=== PATIENT | female | born 1940 | race Caucasian/White ===

== ENCOUNTER 2016-09-16 10:35 | Inpatient (IN) | payer MEDICARE, OTHER ==
--- NOTE | 2016-09-16 11:26 | ED ---
General Adult HPI - General Chief complaint: Recheck/Abnormal Lab/Rx Stated complaint: Congestive Heart Failure Time Seen by Provider: 09/16/16 10:40 Source: EMS Mode of arrival: EMS Limitations: no limitations - History of Present Illness Initial comments: 26 years old female was a transfer from [facility], on Sunday ER doc transfer her with the diagnosis of CHF and acute exacerbation of COPD, pulmonary hypertension and a left lung nodule. She had extensive workup done numb and changing based on the workup to give her some diuretics she voided quite a bit now she feels fine. In my ER now she denies any shortness of breath no chest pain no pleuritic chest pain no fever no chills no sinus symptoms of TIA or CVA - Related Data Allergies Allergy/AdvReac Type Severity Reaction Status Date / Time codeine AdvReac Itching Verified 09/16/16 11:08 Review of Systems ROS Statement: Those systems with pertinent positive or pertinent negative responses have been documented in the HPI. ROS Other: All systems not noted in ROS Statement are negative. Past Medical History Past Medical History: Heart Failure, COPD History of Any Multi-Drug Resistant Organisms: None Reported Past Surgical History: Appendectomy, Cholecystectomy, Heart Catheterization With Stent, Hysterectomy Past Psychological History: No Psychological Hx Reported Smoking Status: Former smoker Past Alcohol Use History: None Reported Past Drug Use History: None Reported General Exam - General Exam Comments Initial Comments: General: The patient is awake and alert, in no distress, and does not appear acutely ill. GCS is 15 Skin: Skin is warm and dry and no rashes or lesions are noted. Eye: Pupils are equal, round and reactive to light, extra-ocular movements are intact; there is normal conjunctiva bilaterally. Ears, nose, mouth and throat: There are moist mucous membranes and no oral lesions. Neck: The neck is supple, there is no tenderness or JVD. Cardiovascular: There is a regular rate and rhythm. No murmur, rub or gallop is appreciated. Respiratory: To auscultation bilateral, noticed some crackles at the bases, it' s typical COPD Gastrointestinal: Soft, non-distended, non-tender abdomen without masses or organomegaly noted. There is no rebound or guarding present. Bowel sounds are unremarkable. Back: There is no tenderness to palpation in the midline. There is no obvious deformity. Musculoskeletal: Normal ROM, no tenderness, There is no pedal edema. There is no calf tenderness or swelling. No cords were appreciated. Neurological: CN II-XII intact, Cranial nerves III through XII are intact. There are no obvious motor or sensory deficits. Coordination appears grossly intact. Speech is normal. Psychiatric: Cooperative, appropriate mood & affect, normal judgment. Limitations: no limitations Course Vital Signs 09/16/16 10:35 Temperature 99.1 F Pulse Rate 63 Respiratory 20 Rate Blood Pressure 168/88 O2 Sat by Pulse 96 Oximetry Laboratory labs drawn in the ER to [facility], UA showed some hematuria TSH was 6.0 BNP was 1542 troponin is negative his CBC was negative compressive metabolic panel was negative as well INR is 1.61 EKG showed some ischemic changes noticed from work will be done patient admitted under Dr. Herbert Siegel and cardiology be consulted along with Dr. Mahajan that he probably shortness Disposition Clinical Impression: Congestive heart failure, Acute exacerbation of COPD with asthma, Pulmonary hypertension, Nodule of left lung Disposition: ADMITTED IP TO THIS HOSP Condition: Good Referrals: Bethel Longoria NPC [Primary Care Provider] - 1-2 days
[2016-09-16] MEDS ORDERED: OXcarbazepine 150 MG TAB PO PRN (11:38)
[2016-09-16] MEDS ORDERED: guaiFENesin SYRUP 100MG/5ML 200 MG/10 ML CUP PO PRN (11:38)
[2016-09-16] MEDS ORDERED: LEVOFLOXACIN 500MG-D5W PMX 500 MG in DEXTROSE/WATER 1 100ML.BAG IVPB STA (11:49)
[2016-09-16] MEDS: FUROSEMIDE 10 MG/ML 4 ML VIAL IV SCH ×2 (12:51→20:18)
[2016-09-16 13:08] LABS: INR 1.7 (<1.1); Prothrombin Time 16.1 sec (9.0-12.0)
[2016-09-16 15:24] VITALS: BMI 27.5
[2016-09-16] MEDS: IPRATROPIUM-ALBUTEROL 3 ML NEB INHALATION SCH ×4 (16:28→20:12)
[2016-09-16] MEDS: metFORMIN 500 MG TAB PO SCH (17:44)
[2016-09-16] MEDS: METOPROLOL TARTRATE 50 MG TAB PO SCH (20:18)
[2016-09-16] MEDS: OXcarbazepine 300 MG TAB PO SCH (20:18)
[2016-09-16] MEDS: DOCUSATE 100 MG CAP PO PRN (20:18)
[2016-09-16 20:42] LABS: ALT 36 U/L (9-52); AST 22 U/L (14-36); Alkaline Phosphatase 119 U/L (38-126); Anion Gap 12 mmol/L; Blood Urea Nitrogen 19 mg/dL (7-17); Calcium 9.1 mg/dL (8.4-10.2); Carbon Dioxide 30 mmol/L (22-30); Chloride 100 mmol/L (98-107); Glucose 189 mg/dL (74-99); Non-African American GFR(MDRD) >60 (>60 ml/min/1.73 sqM); Potassium 3.6 mmol/L (3.5-5.1); Sodium 142 mmol/L (137-145); Total Bilirubin 1.9 mg/dL (0.2-1.3); Total Protein 6.7 g/dL (6.3-8.2)
[2016-09-16 20:47] LABS: Basophils # (A) 0.1 k/uL (0-0.2); Basophils % (A) 1 %; CH 31.7; CHCM 32.4; Eosinophils # (A) 0.3 k/uL (0-0.7); Eosinophils % (A) 3 %; HCT 38.9 % (34.0-46.0); HDW 2.32; HGB 12.4 gm/dL (11.4-16.0); Luc % (Auto) 2; Lymphocytes # (A) 2.3 k/uL (1.0-4.8); Lymphocytes % (A) 27 %; MCH 31.4 pg (25.0-35.0); MCHC 31.9 g/dL (31.0-37.0); MCV 98.5 fL (80.0-100.0); Macrocytosis Slight; Mean Platelet Volume 7.9; Monocytes # (A) 0.6 k/uL (0-1.0); Monocytes % (A) 7 %; Neutrophils # (A) 5.2 k/uL (1.3-7.7); Neutrophils % (A) 60 %; RBC 3.95 m/uL (3.80-5.40); RDW 15.3 % (11.5-15.5); WBC 8.6 k/uL (3.8-10.6); WBC (Perox) 9.49
[2016-09-16] MEDS ORDERED: WARFARIN 2 MG TAB PO SCH (21:00)
[2016-09-16 21:36] LABS: Hemoglobin A1C 8.5 % (4.2-6.1)
[2016-09-16] MEDS: ALPRAZolam 0.25 MG TAB PO SCH (23:29)
[2016-09-17] MEDS: IPRATROPIUM-ALBUTEROL 3 ML NEB INHALATION SCH ×4 (08:25→20:10)
[2016-09-17] MEDS: metFORMIN 500 MG TAB PO SCH ×2 (08:42→17:21)
[2016-09-17] MEDS: FUROSEMIDE 10 MG/ML 4 ML VIAL IV SCH ×2 (08:48→22:11)
[2016-09-17] MEDS: CHOLECALCIFEROL 1,000 UNIT TAB PO SCH (08:50)
[2016-09-17] MEDS: OXcarbazepine 300 MG TAB PO SCH ×2 (08:51→22:12)
[2016-09-17] MEDS: LINAGLIPTIN 5 MG TABLET PO SCH (08:51)
[2016-09-17] MEDS: LISINOPRIL 10 MG TAB PO SCH (08:51)
[2016-09-17] MEDS: METOPROLOL TARTRATE 50 MG TAB PO SCH ×2 (08:51→22:12)
[2016-09-17] MEDS ORDERED: SPIRONOLACTONE 25 MG TAB PO SCH (09:00)
[2016-09-17] MEDS ORDERED: HYDROCHLOROTHIAZIDE 25 MG TAB PO SCH (09:00)
--- NOTE | 2016-09-17 10:36 | HP ---
DATE OF ADMISSION: 09/16/2016 CHIEF COMPLAINT: A 76-year-old white female with acute congestive heart failure. HISTORY OF PRESENT ILLNESS: This is an elderly 76-year-old white female transferred from [facility] after two admissions to the hospital one over 5 to 6 days in [facility] in [place]. She has been also in [place] for the last two to three days with severe amounts of diuresis with IV Lasix for congestive heart failure and COPD, pulmonary hypertension left lung nodule. She had extensive work-up done which showed ejection fraction around 55%, right-sided pulmonary hypertension. She was also found to have possibly hypothyroidism, which no treatment was given. Because she was sent home on Hydrodiuril instead of IV Lasix, she became extremely short of breath at which time she was sent back to the hospital. She is here for second opinion and to improve her breathing. ALLERGIES: CODEINE. Fourteen-point review of system is negative except for 2 months ago she was breathing good. One month ago, the bottom dropped out and she became extremely short of breath. Otherwise fourteen-point review of systems negative. PAST MEDICAL HISTORY: Diastolic heart failure. Pulmonary hypertension, COPD, long-standing nicotine addiction for many years. SURGERY: Appendectomy, cholecystectomy, heart catheterization with stent, hysterectomy. SOCIAL HISTORY: Smoker. No alcohol. No drugs. PHYSICAL EXAM: Does not appear acutely ill. Ophthalmologic: Pupils equal, round and react to light and accommodation. NECK: Supple. No JVD. CARDIOVASCULAR: Regular rate and rhythm. No murmurs, rubs, gallops, respiratory some crackles at the base, scattered wheeze. GI: Soft. No mass or organomegaly. No rebound. Back is nontender. No obvious deformity. MUSCULOSKELETAL: Normal range of motion. No calf tenderness. NEUROLOGIC: Cranial nerves are intact. PSYCH: Cooperative. Fair mood and affect. Temperature 99.1, pulse 63, respirations 20, O2 sat 96% on room air. ASSESSMENT: 1. Acute congestive heart failure diastolic in nature. 2. Acute pulmonary hypertension. 3. Chronic obstructive pulmonary disease exacerbation. 4. Allergic rhinitis and asthma. 5. Possible nodule in the left lung. We will admit the patient and give her IV Lasix. Possibly thyroid medicine. We will await further work-up by pulmonary and cardiology.
--- NOTE | 2016-09-17 11:53 | XR ---
EXAMINATION TYPE: XR chest 1V portable DATE OF EXAM: 09/17/2016 HISTORY: HF. REFERENCE: Previous study dated 09/17/2012. FINDINGS: There is a unipolar pacemaker place on the left. The lungs are overinflated. Heart size upper limits of normal. The lungs are clear. There is blunting of both CP angles. I could not exclude small effusions. IMPRESSION: 1. COPD. 2. BORDERLINE CARDIOMEGALY. 3. SMALL, BILATERAL EFFUSIONS.
[2016-09-17] MEDS ORDERED: SPIRONOLACTONE 25 MG TAB PO ONE (12:00)
[2016-09-17] MEDS: LEVOFLOXACIN 500MG-D5W PMX 500 MG in DEXTROSE/WATER 1 100ML.BAG IVPB SCH (12:27)
--- NOTE | 2016-09-17 13:45 | CONS ---
DATE OF CONSULTATION: Mrs. Ortiz is a 76-year-old female who is seen for cardiac evaluation. This patient's emergency room records as well as records from [place] systems reviewed. This patient was transferred from [facility] because of the increasing shortness of breath and congestive cardiac failure. This patient has a history of atrial fibrillation. She had a permanent pacemaker implanted about 3.4 weeks ago at [facility]. Subsequently, patient was admitted in the hospital in [place] because of the predominantly right-sided failure. Patient was treated with IV diuretics and she lost significant amount of weight and she was discharged home. After discharge from the hospital, patient did not feel well on Sunday night, and Sunday she was having increasing shortness of breath and so the patient went to the ER and was transferred over here. Patient did have some work-up done in the past. We do not have all the details, but that she has been told that she has COPD, pulmonary hypertension and diastolic congestive cardiac failure. Patient has a prior history of coronary artery disease and had a stent done in 1994. She denies any anginal pain. She has a history of diabetes as well as hypertension. Past medical history includes a history of recent pacemaker, appendectomy, cholecystectomy, prior cardiac catheterization, COPD. SOCIAL HISTORY: Patient has been smoking for several years. Review of systems is otherwise unremarkable. Physical examination at present reveals a 76-year-old female who does not appear to be in any acute distress, oxygen saturation is 94%. Blood pressure is 132/68 mm of Hg. Head/ENT examination is negative. Neck is supple. Jugular venous pressure is elevated up to the angle of the jaw. Both the carotid pulses are felt. There is no bruit. Chest is symmetrical. HEART: The PMI is not felt. First and second heart sounds are normal. No significant murmurs are noted. Lungs revealed bilateral few basal rales. Abdomen soft. Liver and spleen are not enlarged. EXTREMITIES: There is 1+ pedal edema. Peripheral pulsations are not well felt. EKG shows underlying rhythm to be atrial fibrillation with a paced rhythm. Patient's proBNP level is 0. FINAL IMPRESSION: 1. This patient is admitted with shortness of breath and congestive heart failure. Patient predominantly has right-sided heart failure, which is probably secondary to cor pulmonale and diastolic dysfunction. The patient's BNP level is marginally elevated. 2. Atrial fibrillation with controlled rate and a pacemaker rhythm. RECOMMENDATIONS: We will continue patient on IV Lasix and increase the spironolactone to 25 mg daily. Echocardiogram will be repeated and I will switch the patient from Coumadin to the Eliquis 5 mg b.i.d. Further recommendations will be made depending upon the findings.
[2016-09-17] MEDS: methylPREDNISolone SOD SUCCI 125 MG/2 ML VIAL IV SCH ×2 (14:01→18:56)
[2016-09-17] MEDS: METROGEL 1% TOPICAL SCH (14:12)
--- NOTE | 2016-09-17 14:37 | CONS ---
DATE OF CONSULTATION: Ariadne Ortiz is a 76-year-old female who presented to the ED at [facility] when she was transferred from [facility]. She had been doing fairly well up until 3 weeks ago and she developed some shortness of breath. This has been associated with some wheezing and occasional cough. She was seen in [facility] in [facility] for at least 3 admissions and her last admission was about 5 to 6 days ago in [facility] in [place]. She was discharged went home, became more short of breath and came in to [facility] and was transferred to [facility]. About 3 weeks ago, she had a pacemaker placed. She had a previously extensive work-up done, which included evidence of a possible left lung nodule, history of congestive heart failure, COPD, pulmonary hypertension with ejection fraction around 55%. PAST MEDICAL HISTORY: Positive for congestive heart failure with pulmonary hypertension, history of COPD, no clear history of asthma per patient, history of appendectomy, cholecystectomy, pacemaker placement, cardiac catheterization. SOCIAL HISTORY: The patient smokes about a pack of cigarettes per day. She quit smoking about 4 weeks ago. FAMILY: Negative for COPD and asthma. Medications prior to admission were: 1. Xanax. 2. Flagyl. 3. Topical ointment. 4. Warfarin. 5. Cholecalciferol. 6. Sitagliptin with metformin. 7. Trileptal. 8. Lopressor. 9. Prinivil. 10. Albuterol with ipratropium. 11. Hydrochlorothiazide. 12. Guaifenesin. Review of systems is noncontributory other than for what is described in the history of present illness and past medical history. On physical examination, blood pressure is 132/68, respiratory rate 20, pulse 60, temperature 97.3 degrees Fahrenheit. O2 sat on 2 liters by nasal cannula is 94%. HEENT reveals pupils are equal. Jugular veins are mildly distended. Chest reveals decreased breath sounds, prolonged expiration, no clear wheeze. Cardiovascular system reveals an S1, S2. ABDOMEN: Soft. There is trace pedal. Labs reveal a white count 8.6, hemoglobin 12.4. PT, INR 1.7. Sodium 142, potassium 3.6, chloride 100, bicarbonate 30, BUN 19, creatinine of 0.88. TSH is elevated at 4.7, FT4 of 0.96. NT-proBNP 2040. Chest x-ray does not show any clear nodule but does show small bilateral effusions. IMPRESSION: 1. Congestive heart failure. 2. Asthma with chronic obstructive pulmonary disease with acute exacerbation. 3. Lung nodule. 4. Cardiac arrhythmia with recent pacemaker placement. 5. Pulmonary hypertension which may be due to left heart failure versus other etiology such as chronic obstructive pulmonary disease cannot rule out obstructive sleep apnea as well. At this point in time, from a pulmonary standpoint, would keep her on bronchodilators, add aerosolized steroids and Montelukast to her regimen. Check an allergy profile. Keep her in negative fluid balance. Will check a CT scan to further decide if she needs work-up for a lung nodule. Check an allergy profile. We will follow her closely during her hospital stay. Appreciate the opportunity to participate in her care. She and her son were counseled regarding her condition and this approach and they have a fair understanding of our recommendations.
--- NOTE | 2016-09-17 16:06 | CT ---
EXAMINATION TYPE: CT chest wo con DATE OF EXAM: 09/17/2016 COMPARISON: Prior CT chest 09/19/2012, CT chest from outside institution 09/16/2016 HISTORY: Pulmonary nodule CT DLP: 292.4 mGycm. Automated Exposure Control for Dose Reduction was Utilized. TECHNIQUE: CT scan of the thorax is performed without IV contrast. FINDINGS: LUNGS: The lungs are grossly clear, there is no concerning parenchymal mass or nodule identified. Em physematous changes are present. There is pleural calcification, calcification along the pericardium, the heart is enlarged, there are coronary artery calcifications. Small right pleural effusion and as sociated atelectatic changes versus right lower lobe pneumonia, there are air bronchograms present. T he tracheobronchial tree is patent. Questionable nodular density on axial image 32 is somewhat less c onspicuous and may just represent some focal pleural thickening. MEDIASTINUM: Lack of IV contrast is noted to limit evaluation for mediastinal and especially hilar ad enopathy. There are no definitive greater than 1 cm hilar or mediastinal lymph nodes. No pericardia l effusion is seen. OTHER: Pacemaker lead present in the right ventricle. Left atrial enlargement is present. Arthropathy noted within the shoulders. Low dense focus present within the spleen measures approximately 14 mm, possibly cyst or hemangioma. Patient is post cholecystectomy. Diverticular change noted in the colon. There is a small hiatal hernia present. IMPRESSION: Cardiomegaly, coronary artery disease. Correlate for right lower lobe pneumonia with para pneumonic effusion. Questionable nodular density seen on prior CT from outside institution appears so mewhat less conspicuous as described. Additional findings above, consider follow-up
[2016-09-17 17:13] LABS: Glucose,Whole Blood 235 mg/dL (75-99)
[2016-09-17] MEDS: INSULIN LISPRO (humaLOG) 300 UNIT/3 ML VIAL SQ SCH ×2 (17:21→22:11)
[2016-09-17] MEDS: BUDESONIDE 0.5 MG/2 ML NEBU INHALATION SCH (20:10)
[2016-09-17] MEDS ORDERED: ALPRAZolam 0.25 MG TAB PO PRN (21:08)
[2016-09-17 21:13] LABS: Glucose,Whole Blood 304 mg/dL (75-99)
[2016-09-17] MEDS: ALPRAZolam 0.25 MG TAB PO SCH (22:11)
[2016-09-17] MEDS: APIXABAN 5 MG TAB PO SCH (22:11)
[2016-09-17] MEDS: MONTELUKAST 10 MG TAB PO SCH (22:12)
[2016-09-17] MEDS: DOCUSATE 100 MG CAP PO PRN (22:13)
[2016-09-18] MEDS: methylPREDNISolone SOD SUCCI 125 MG/2 ML VIAL IV SCH ×3 (01:12→12:18)
[2016-09-18 05:59] LABS: Glucose,Whole Blood 302 mg/dL (75-99)
[2016-09-18] MEDS: INSULIN LISPRO (humaLOG) 300 UNIT/3 ML VIAL SQ SCH ×4 (06:54→21:35)
[2016-09-18] MEDS: metFORMIN 500 MG TAB PO SCH ×2 (06:54→17:31)
[2016-09-18] MEDS: LEVOTHYROXINE 50 MCG TAB PO SCH (06:54)
[2016-09-18] MEDS: FUROSEMIDE 10 MG/ML 4 ML VIAL IV SCH ×2 (07:50→21:35)
[2016-09-18] MEDS: LISINOPRIL 10 MG TAB PO SCH (07:50)
[2016-09-18] MEDS: METOPROLOL TARTRATE 50 MG TAB PO SCH ×2 (07:51→21:35)
[2016-09-18] MEDS: APIXABAN 5 MG TAB PO SCH ×2 (07:51→21:35)
[2016-09-18] MEDS: LINAGLIPTIN 5 MG TABLET PO SCH (07:51)
[2016-09-18] MEDS: OXcarbazepine 300 MG TAB PO SCH ×2 (07:52→21:35)
[2016-09-18] MEDS: SPIRONOLACTONE 25 MG TAB PO SCH (07:52)
[2016-09-18] MEDS: METROGEL 1% TOPICAL SCH (07:53)
--- NOTE | 2016-09-18 08:12 | PN ---
SUBJECTIVE: A 76-year-old white female with right-sided heart failure and pulmonary hypertension from probable sleep apnea, also hypothyroidism. Discussed with her starting her on a thyroid medicine and Lasix that was not given on her blood tests before. This nodular density on a prior CAT scan was improved. She has a parapneumonic effusion. Consultation with Dr. Chelsey Kuo at this point ( ) asthma, COPD, lung nodule, pacemaker, cardiac arrhythmia, pulmonary hypertension may be due to left heart failure versus COPD and obstructive sleep apnea. He recommends steroids, Singulair, allergy panel. Will start her on hypothyroid medication. Wean her off oxygen as tolerated. Will follow up in the next 24 to 48 hours. She will have a sleep apnea workup as an outpatient.
[2016-09-18] MEDS: BUDESONIDE 0.5 MG/2 ML NEBU INHALATION SCH ×2 (11:51→20:27)
[2016-09-18] MEDS: IPRATROPIUM-ALBUTEROL 3 ML NEB INHALATION SCH ×4 (11:51→20:27)
[2016-09-18 12:04] LABS: Glucose,Whole Blood 303 mg/dL (75-99)
[2016-09-18] MEDS: CHOLECALCIFEROL 1,000 UNIT TAB PO SCH (12:17)
[2016-09-18] MEDS: LEVOFLOXACIN 500MG-D5W PMX 500 MG in DEXTROSE/WATER 1 100ML.BAG IVPB SCH (12:18)
--- NOTE | 2016-09-18 13:51 | PN ---
DATE OF SERVICE: 09/18/2016 She has been hemodynamically stable. She is less short of breath. On physical examination, her blood pressure 134/68, respiratory rate of 18, pulse rate of 62, temperature 99.2, O2 sat on room air is 93%. HEENT is unremarkable. Chest reveals decreased breath sounds. No clear wheeze. Cardiovascular system reveals an S1 and S2. Abdomen is soft. There is trace to 1+ pedal edema. IgE level is 36.2 consistent with allergic asthma. Input and output is showing a -1390. IMPRESSION: 1. Congestive heart failure. 2. Asthma with acute exacerbation. 3. Chronic obstructive pulmonary disease. 4. History of lung nodule per the CAT scan report and my review, there does not seem to be a nodule and questionable density is less conspicuous. There does seem to a small right pleural effusion with some atelectatic changes which may be due to congestive heart failure. At this point in time, from a pulmonary standpoint, continue IV steroids, bronchodilators, aerosolized steroids. Increase her activity level. If she is otherwise stable. Consider discharge planning for tomorrow.
--- NOTE | 2016-09-18 15:17 | P.PN ---
Subjective 76-year-old seen and evaluated. Sitting up in bed. Feels less short of breath. Being followed by pulmonary and cardiology service. . Did note cardiology's recommendations. The recommending that the Lasix IV continue increase the Aldactone repeat echocardiogram and switched to Coumadin over to [facility] course 76-year-old female was transferred from [facility] after 2 admissions to the hospital over the last 5-6 days. Patient reportedly had been [facility] in [place]. Patient also had been in [place] for the last several days. Patient had been treated for a workup for heart failure with pulmonary hypertension. Patient was transferred here seeking a second opinion for treatment of the above-mentioned symptoms. Patients being followed by pulmonology treated for asthma with an acute exacerbation. IgE level elevated consistent with ALLERGIC asthma. CAT scan of the chest was reviewed by pulmonary. There did not appear to be a nodule. There was small right pleural effusion with atelectatic changes which may be related to the congestive heart failure per pulmonary's recommendations after reviewing the CAT scan of the chest also noted that the patient did have a permanent pacemaker put in about 3- 4 weeks ago at [facility]. Subsequently as mentioned the patient had been hospitalized in [place] because of predominantly right side heart failure. Patient reportedly was treated with IV diuretics reports that she did lose a significant amount of weight and was discharged home. Patient states that after she was discharged from the hospital she did not feel well over the weekend noted that she was experiencing shortness of breath and came into the emergency room was transferred here. Patient states that she's been told she has COPD. Patient had a stent placed in 1994 gives a history of coronary artery disease. EKG shows an underlying rhythm of atrial fibrillation with paced rhythm. Patients being followed by cardiology being treated for predominantly right side heart failure likely secondary to cor pulmonale and diastolic dysfunction. Objective - Vital Signs Vital signs: Vital Signs Temp 99.2 F 09/18/16 12:17 Pulse 86 09/18/16 12:04 Resp 18 09/18/16 12:00 BP 134/68 09/18/16 12:00 Pulse Ox 93 L 09/18/16 12:00 Intake & Output 09/17/16 09/18/16 09/18/16 18:59 06:59 18:59 Intake Total 350 360 Output Total 300 Balance 350 60 Weight 76.7 kg Intake: IV 30 Normal Saline 30 Intake, IV Titration 100 Amount Levofloxacin 500Mg-D5w 100 Pmx 500 mg In Dextrose/ Water 1 100ml.bag @ 100 mls/hr IVPB Q24H [facility] Rx#: [id number] Oral 220 360 Output: Urine 300 Other: # Voids 0 1 - Exam Physical exam 76-year-old female sitting up in bed does not appear in any acute distress states breathing feels slightly improved Lungs diminished at the bases otherwise adequate air movement Heart S1-S2 audible irregular monitor paced A. fib rate controlled abdomen obese soft nontender no frequent stooling Extremities trace pedal edema bilaterally - Labs CBC & Chem 7: 09/16/16 17:59 09/16/16 17:59 Labs: Abnormal Lab Results - Last 24 Hours (Table) 09/17/16 09/17/16 09/18/16 Range/Units 17:05 20:41 05:51 POC Glucose (mg/dL) 235 H 304 H 302 H (75-99) mg/dL 09/18/16 Range/Units 11:51 POC Glucose (mg/dL) 303 H (75-99) mg/dL Assessment and Plan Plan: Impression Shortness of breath suspect due to right-sided heart failure exacerbation secondary to cor pulmonale and diastolic dysfunction Shortness of breath due to an acute exacerbation of asthma Chronic atrial fibrillation rate controlled History of a recent 2-3 week ago implantation pacemaker IgE level elevated on admission consistent with ALLERGIC asthma History of a lung nodule per CAT scan report reviewed by pulmonary service indicates not able to see nodule question the density less conspicuous CAT scan of the chest small right pleural effusion may be due to heart failure diastolic dysfunction Type 2 diabetes insulin requiring uncontrolled hemoglobin A1c 8.5 Present on admission hypothyroid a low free T4 0.96 new diagnosis Plan Continue with recommendations by pulmonary service continue the aerosol bronchodilator and IV steroids Continue with the rectum and dictations by cardiology service Increase activity Resume home meds as appropriate Monitor intake and output and weight Continue Lasix 40 IV twice a day Monitor electrolytes closely keep in a therapeutic range IV Levaquin as ordered Start Synthroid 50 MCG's daily Monitor blood pressure and heart rate adjust as indicated The above impression and plan of care have been discussed and directed by signing physician. Stephanie Tai nurse practitioner acting as scribe for signing physician.
[2016-09-18 17:24] LABS: Glucose,Whole Blood 255 mg/dL (75-99)
[2016-09-18] MEDS: methylPREDNISolone SOD SUCCI 40 MG/ML 1 ML VIAL IV SCH (17:38)
[2016-09-18 20:36] LABS: Glucose,Whole Blood 392 mg/dL (75-99)
--- NOTE | 2016-09-18 20:41 | PN ---
This patient was admitted with respiratory distress. Congestive cardiac failure. She is feeling much better. Breathing is improved. Denies any orthopnea or PND. Her respirations are nonlabored. Heart rate is 68 per minute. Blood pressure is 170/84 mm Hg. First and second heart sounds are normal. Lungs are clinically clear to auscultation and percussion. Chest x-ray shows a small amount of pleural effusion. We will continue the IV Lasix for next 24 hours and put her on all her Lasix from tomorrow.
[2016-09-18] MEDS ORDERED: INSULIN LISPRO (humaLOG) 300 UNIT/3 ML VIAL SQ ONE (21:02)
[2016-09-18] MEDS: MONTELUKAST 10 MG TAB PO SCH (21:36)
[2016-09-18] MEDS: ALPRAZolam 0.25 MG TAB PO SCH (21:36)
[2016-09-18] MEDS: DOCUSATE 100 MG CAP PO PRN (21:46)
[2016-09-18] MEDS ORDERED: methylPREDNISolone SOD SUCCI 40 MG/ML 1 ML VIAL IV SCH (22:00)
[2016-09-19 06:16] LABS: Glucose,Whole Blood 216 mg/dL (75-99)
[2016-09-19 06:41] LABS: ALT 39 U/L (9-52); AST 13 U/L (14-36); Alkaline Phosphatase 113 U/L (38-126); Anion Gap 12 mmol/L; Blood Urea Nitrogen 40 mg/dL (7-17); Calcium 9.7 mg/dL (8.4-10.2); Carbon Dioxide 27 mmol/L (22-30); Chloride 99 mmol/L (98-107); Glucose 219 mg/dL (74-99); Non-African American GFR(MDRD) 54 (>60 ml/min/1.73 sqM); Sodium 138 mmol/L (137-145); Total Bilirubin 0.7 mg/dL (0.2-1.3); Total Protein 6.4 g/dL (6.3-8.2)
[2016-09-19] MEDS: INSULIN LISPRO (humaLOG) 300 UNIT/3 ML VIAL SQ SCH ×4 (06:41→22:49)
[2016-09-19] MEDS: LEVOTHYROXINE 50 MCG TAB PO SCH (06:41)
[2016-09-19] MEDS: methylPREDNISolone SOD SUCCI 40 MG/ML 1 ML VIAL IV SCH (06:41)
[2016-09-19] MEDS: APIXABAN 5 MG TAB PO SCH ×2 (08:17→22:48)
[2016-09-19] MEDS: FUROSEMIDE 10 MG/ML 4 ML VIAL IV SCH (08:17)
[2016-09-19] MEDS: LINAGLIPTIN 5 MG TABLET PO SCH (08:17)
[2016-09-19] MEDS: METOPROLOL TARTRATE 50 MG TAB PO SCH ×2 (08:17→22:48)
[2016-09-19] MEDS: metFORMIN 500 MG TAB PO SCH ×2 (08:17→16:38)
[2016-09-19] MEDS: LISINOPRIL 10 MG TAB PO SCH (08:18)
[2016-09-19] MEDS: SPIRONOLACTONE 25 MG TAB PO SCH (08:18)
[2016-09-19] MEDS: OXcarbazepine 300 MG TAB PO SCH ×2 (08:18→22:49)
[2016-09-19] MEDS: METROGEL 1% TOPICAL SCH (08:19)
[2016-09-19] MEDS: BUDESONIDE 0.5 MG/2 ML NEBU INHALATION SCH ×2 (08:48→19:52)
[2016-09-19] MEDS: IPRATROPIUM-ALBUTEROL 3 ML NEB INHALATION SCH ×4 (08:48→19:52)
--- NOTE | 2016-09-19 10:18 | ECHOF ---
Referral Reason:chf MEASUREMENTS -------- HEIGHT: 165.1 cm WEIGHT: 76.7 kg BP: 135/78 RVIDd: 2.9 cm (< 3.3) IVSd: 1.1 cm (0.6 - 1.1) LVIDd: 4.1 cm (3.9 - 5.3) LVPWd: 1.2 cm (0.6 - 1.1) IVSs: 2.0 cm LVIDs: 2.6 cm LVPWs: 2.0 cm LAESV Index (A-L): 61.48 ml/m Ao Diam: 2.8 cm (2.0 - 3.7) AV Cusp: 1.8 cm (1.5 - 2.6) LA Diam: 5.0 cm (2.7 - 3.8) MV EXCURSION: 16.312 mm (> 18.000) MV EF SLOPE: 97 mm/s (70 - 150) EPSS: 0.3 cm RAP: 5.00 mmHg RVSP: 10.90 mmHg FINDINGS -------- Sinus rhythm. This was a technically adequate study. There is borderline concentric left ventricular hypertrophy. Overall left ventricular systolic function is normal with, an EF between 60 - 65 %. The right ventricle is normal in size and function. LA is severely dilated >40 ml/m2 Electronic pacemaker lead seen in the right atrial cavity. RA appears enlarged. Aortic valve is trileaflet and is mildly thickened. There is no evidence of aortic regurgitation. There is no evidence of aortic stenosis. The mitral valve leaflets are mildly thickened. [id number] mitral regurgitation is present. Trace tricuspid regurgitation present. There is no evidence of pulmonary hypertension. The right ventricular systolic pressure, as measured by Doppler, is 10.90mmHg. Trace/mild (physiologic) pulmonic regurgitation. The aortic root size is normal. The inferior vena cava is mildly dilated. The pericardium is normal. There is no pericardial effusion. CONCLUSIONS -------- 1. Sinus rhythm. 2. [id number] mitral regurgitation is present. 3. Trace tricuspid regurgitation present. 4. There is no evidence of pulmonary hypertension. 5. The right ventricular systolic pressure, as measured by Doppler, is 10.90mmHg. 6. Trace/mild (physiologic) pulmonic regurgitation. 7. The aortic root size is normal. 8. The inferior vena cava is mildly dilated. 9. There is no pericardial effusion. 10. This was a technically adequate study. 11. There is borderline concentric left ventricular hypertrophy. 12. Overall left ventricular systolic function is normal with, an EF between 60 - 65 %. 13. LA is severely dilated >40 ml/m2 14. Electronic pacemaker lead seen in the right atrial cavity. 15. RA appears enlarged. 16. Aortic valve is trileaflet and is mildly thickened. 17. The mitral valve leaflets are mildly thickened. SULFONATOR OPERATOR: Geoff Sinha RDCS
--- NOTE | 2016-09-19 11:22 | P.PN ---
Subjective 76 -year-old female seen and examined. Patient reports breathing feels improved this morning. Patient states is able to lay flat with less shortness of breath. Patients being followed by cardiology service. Reviewed the recommendations by cardiology the plan is to change the IV Lasix to oral and monitor the response. Currently on 40 of Lasix IV twice a day. Labs reviewed additionally cardiology has started patient on elquist 5mg bid patient had been on Coumadin which has been stopped. Pulmonary participating in the plan of care as well. Patients being treated for an acute exacerbation of asthma with COPD disease. IV Solu-Medrol will be changed to prednisone Objective - Vital Signs Vital signs: Vital Signs Temp 99.4 F 09/19/16 08:00 Pulse 72 09/19/16 09:03 Resp 18 09/19/16 08:00 BP 139/75 09/19/16 08:00 Pulse Ox 93 L 09/19/16 08:00 Intake & Output 09/18/16 09/19/16 09/19/16 18:59 06:59 18:59 Intake Total 940 10 Output Total 1200 300 Balance -260 -290 Weight 76 kg Intake: IV 10 Normal Saline 10 Intake, IV Titration 100 Amount Levofloxacin 500Mg-D5w 100 Pmx 500 mg In Dextrose/ Water 1 100ml.bag @ 100 mls/hr IVPB Q24H [facility] Rx#: [id number] Oral 840 Output: Urine 1200 300 Other: # Voids 2 2 - Exam Physical exam 76-year-old female sitting up edge of bed acute distress states breathing feels slightly improved Lungs diminished at the bases otherwise adequate air movement Heart S1-S2 audible irregular monitor paced A. fib rate controlled abdomen obese soft nontender no frequent stooling Extremities trace pedal edema bilaterally - Labs CBC & Chem 7: 09/16/16 17:59 09/19/16 06:01 Labs: Abnormal Lab Results - Last 24 Hours (Table) 09/18/16 09/18/16 09/18/16 Range/Units 11:51 17:07 20:35 BUN (7-17) mg/dL Glucose (74-99) mg/dL POC Glucose (mg/dL) 303 H 255 H 392 H (75-99) mg/dL AST (14-36) U/L 09/19/16 09/19/16 Range/Units 05:47 06:01 BUN 40 H (7-17) mg/dL Glucose 219 H (74-99) mg/dL POC Glucose (mg/dL) 216 H (75-99) mg/dL AST 13 L (14-36) U/L Assessment and Plan Plan: Impression Shortness of breath suspect due to right-sided heart failure exacerbation secondary to cor pulmonale and diastolic dysfunction Shortness of breath due to an acute exacerbation of asthma Chronic atrial fibrillation rate controlled Coumadin stopped an eliquist added History of a recent 2-3 week ago implantation pacemaker IgE level elevated on admission consistent with ALLERGIC asthma History of a lung nodule per CAT scan report reviewed by pulmonary service indicates not able to see nodule question the density less conspicuous CAT scan of the chest small right pleural effusion may be due to heart failure diastolic dysfunction Type 2 diabetes insulin requiring uncontrolled hemoglobin A1c 8.5 Plan Continue with recommendations by pulmonary service continue the aerosol bronchodilator Stop IV Solu-Medrol taper to oral Continue with the rectum and dictations by cardiology service Increase activity Resume home meds as appropriate Monitor intake and output and weight Continue Lasix 40 IV twice a day tapered to oral per cardiology's recommendations Monitor electrolytes closely keep in a therapeutic range IV Levaquin as ordered Monitor blood pressure and heart rate adjust as indicated The above impression and plan of care have been discussed and directed by signing physician. Stephanie Tai nurse practitioner acting as scribe for signing physician.
[2016-09-19 12:00] LABS: Glucose,Whole Blood 287 mg/dL (75-99)
[2016-09-19] MEDS: predniSONE 20 MG TAB PO SCH (12:16)
[2016-09-19] MEDS: CHOLECALCIFEROL 1,000 UNIT TAB PO SCH (12:16)
[2016-09-19] MEDS: LEVOFLOXACIN 500 MG TAB PO SCH (12:16)
--- NOTE | 2016-09-19 15:06 | CDI ---
In responding to this query, please exercise your independent professional judgment. The [facility] Coding Staff and Clinical Documentation Specialists appreciate your assistance in clarifying documentation, maintaining compliance with coding guidelines, accurately documenting patients condition and capturing severity of illness. The fact that a question is asked does not imply that any particular answer is desired or expected. Communication forms are a method of clarifying documentation and are not made part of the Legal Health Record. Thank you in advance for your clarification. Last Revision, May 2015 Ishan Rodriguez [address] [facility] [place] [address] Documentation Clarification Form Date: 09/19/2016 2:48:00 PM From: Magdi Lewis, RN, BSN, CDI, CCDS Admit Date: 09/16/2016 11:26:00 AM Patient Name: Ariadne Ortiz Visit Number: [id number] Dr. Eulalio Kuo: "Asthma with COPD with acute exacerbation" is documented in your progress notes. "Shortness of breath due to an acute exacerbation of asthma" is documented in the attending physicians documentation. Patient history/risk factors: 76 yo female with a history of COPD, pulmonary HTN , DM and CHF presents with c/o SOB. +smoker Clinical Indicators: Radiology: CXR: COPD, borderline cardiomegaly, small b/l pleural effusions CT chest: cardiomegaly, CAD, correlate for RLL PNA w/parapneumonic effusion Vital Signs: 168/88, 63, 18-20, 99.1 and 94-96% 2L NC Other Clinical Indicators: Per H&P, respiratory assessement "some crackles at the base, scattered wheeze" Treatment: Medication: duonebs, Pulmicort, Solumedrol, Prednisone Consults: pulmonary, cardiology Other Treatment: oxygen 2L NC In your professional opinion, can you please further specify the following, if known? Severity of asthma exacerbation (if appropriate): Mild intermittent Mild persistent Moderate persistent Severe persistent Other, please specify ____ Unable to determine Form or Type: Cough variant Childhood Exercise induced bronchospasm Extrinsic allergic Idiosyncratic Intrinsic nonallergic Late-onset Mixed Other, please specify Unable to determine Please document in your progress notes and discharge summary in order to capture severity of illness and risk of mortality. Include clinical findings that support your diagnosis. FYI: Press F11 to launch patient chart. Place X here if this finding has no clinical significance, is not applicable or if you are not able to provide any additional documentation. JIMBO
--- NOTE | 2016-09-19 15:34 | P.PN ---
Subjective Principal diagnosis: CHF Patient was admitted to the hospital with respiratory distress and congestive cardiac failure. Overall feeling much better today, breathing is improved significantly. We will discontinue the IV Lasix and change the patient over to oral diuretics today. Blood pressure also much better today at 126/70 heart rate in the 60s. Objective - Vital Signs Vital signs: Vital Signs Temp 99.4 F 09/19/16 08:00 Pulse 66 09/19/16 12:00 Resp 18 09/19/16 12:00 BP 126/72 09/19/16 12:00 Pulse Ox 92 L 09/19/16 12:00 Intake & Output 09/18/16 09/19/16 09/19/16 18:59 06:59 18:59 Intake Total 940 10 Output Total 1200 300 350 Balance -260 -290 -350 Weight 76 kg Intake: IV 10 Normal Saline 10 Intake, IV Titration 100 Amount Levofloxacin 500Mg-D5w 100 Pmx 500 mg In Dextrose/ Water 1 100ml.bag @ 100 mls/hr IVPB Q24H [facility] Rx#: [id number] Oral 840 Output: Urine 1200 300 350 Other: # Voids 2 2 - Exam PHYSICAL EXAMINATION: HEENT: Head is atraumatic, normocephalic. Pupils equal, round. Neck is supple. There is no elevated jugular venous pressure. HEART EXAMINATION: Heart S1, S2 normal. No murmur or gallop heard. CHEST EXAMINATION: Lungs are clear to auscultation and percussion. ABDOMEN: Soft, nontender. Bowel sounds are heard. No organomegaly noted. EXTREMITIES: 2+ peripheral pulses with trace evidence of peripheral edema and no calf tenderness noted. NEUROLOGIC patient is awake, alert and oriented -3. . - Labs CBC & Chem 7: 09/16/16 17:59 09/19/16 06:01 Labs: Abnormal Lab Results - Last 24 Hours (Table) 09/18/16 09/18/16 09/19/16 Range/Units 17:07 20:35 05:47 BUN (7-17) mg/dL Glucose (74-99) mg/dL POC Glucose (mg/dL) 255 H 392 H 216 H (75-99) mg/dL AST (14-36) U/L 09/19/16 09/19/16 Range/Units 06:01 11:59 BUN 40 H (7-17) mg/dL Glucose 219 H (74-99) mg/dL POC Glucose (mg/dL) 287 H (75-99) mg/dL AST 13 L (14-36) U/L Assessment and Plan (1) Diastolic CHF, acute on chronic Status: Acute (2) Chronic a-fib Status: Acute (3) COPD (chronic obstructive pulmonary disease) Status: Acute (4) Diabetes Status: Acute Plan: From cardiology's perspective, we'll discontinue the IV Lasix and start the patient on oral Lasix 40 mg one tablet by mouth twice a day. DNP note has been reviewed, I agree with a documented findings and plan of care. Patient was seen and examined.
[2016-09-19] MEDS: FUROSEMIDE 40 MG TAB PO SCH (16:38)
[2016-09-19 17:27] LABS: Glucose,Whole Blood 343 mg/dL (75-99)
[2016-09-19] MEDS ORDERED: INSULIN LISPRO (humaLOG) 300 UNIT/3 ML VIAL SQ ONE (17:49)
--- NOTE | 2016-09-19 19:38 | PN ---
DATE OF SERVICE: 09/19/2016 This patient has been walking in the halls. She is less short of breath. On physical examination, her blood pressure is 139/75, respiratory rate of 18, pulse rate of 71, temperature 99.4 degrees Fahrenheit. HEENT: Unremarkable. Chest reveals no wheezing. Cardiovascular system is in S1, S2. Abdomen is soft. There is no pedal edema. Weight is 76 kg with an I&O over the last 24 hours of minus 550. It looks like she may have lost close to 2 liters of fluid since her hospital stay, and I believe her admission weight is probably incorrect. Labs were reviewed. IMPRESSION AT THIS TIME: 1. Congestive heart failure. 2. Asthma with acute exacerbation. 3. Chronic obstructive pulmonary disease. 4. Doubt lung nodule, and its significance is unclear. At this point in time, from a pulmonary standpoint, she was counseled about need to check her daily weight as a reflection of her fluid status, and need to check her peak flows every day as a reflection of the air flow itself. Agree with possible discharge planning today or tomorrow on tapering dose of steroids , diuretics and close outpatient followup with bronchodilators and aerosolized steroids. She was counseled regarding her condition and this approach. JIMBO
[2016-09-19 21:25] LABS: Glucose,Whole Blood 319 mg/dL (75-99)
[2016-09-19] MEDS: MONTELUKAST 10 MG TAB PO SCH (22:48)
[2016-09-19] MEDS: ALPRAZolam 0.25 MG TAB PO SCH (22:50)
[2016-09-20 01:41] VITALS: RESP 18
[2016-09-20 06:06] LABS: Glucose,Whole Blood 152 mg/dL (75-99)
[2016-09-20 06:10] LABS: ALT 31 U/L (9-52); AST 16 U/L (14-36); Alkaline Phosphatase 95 U/L (38-126); Anion Gap 11 mmol/L; Blood Urea Nitrogen 39 mg/dL (7-17); Carbon Dioxide 27 mmol/L (22-30); Chloride 102 mmol/L (98-107); Glucose 142 mg/dL (74-99); Non-African American GFR(MDRD) >60 (>60 ml/min/1.73 sqM); Potassium 3.5 mmol/L (3.5-5.1); Sodium 140 mmol/L (137-145); Total Bilirubin 1.1 mg/dL (0.2-1.3); Total Protein 6.4 g/dL (6.3-8.2)
[2016-09-20] MEDS: metFORMIN 500 MG TAB PO SCH (07:03)
[2016-09-20] MEDS: INSULIN LISPRO (humaLOG) 300 UNIT/3 ML VIAL SQ SCH ×2 (07:04→12:33)
--- NOTE | 2016-09-20 07:18 | XR ---
EXAMINATION TYPE: XR chest 2V DATE OF EXAM: 09/20/2016 HISTORY: chf f/u. REFERENCE: Previous study dated 09/17/2016. FINDINGS: There is unipolar pacemaker place on the left. Lung volumes are prominent. Heart size upper limits of normal in size. There is minor platelike atele ctasis at the right lung base. There is no vascular congestion or pulmonary edema. The patient's left pleural effusion has improved. IMPRESSION: 1. COPD. 2. BORDERLINE CARDIOMEGALY. 3. RIGHT BASILAR ATELECTASIS. 4. IMPROVING LEFT EFFUSION.
[2016-09-20] MEDS: BUDESONIDE 0.5 MG/2 ML NEBU INHALATION SCH (08:05)
[2016-09-20] MEDS: IPRATROPIUM-ALBUTEROL 3 ML NEB INHALATION SCH ×2 (08:05→12:19)
[2016-09-20] MEDS: FUROSEMIDE 40 MG TAB PO SCH (09:31)
[2016-09-20] MEDS: APIXABAN 5 MG TAB PO SCH (09:31)
[2016-09-20] MEDS: METOPROLOL TARTRATE 50 MG TAB PO SCH (09:32)
[2016-09-20] MEDS: LISINOPRIL 10 MG TAB PO SCH (09:32)
[2016-09-20] MEDS: LINAGLIPTIN 5 MG TABLET PO SCH (09:32)
[2016-09-20] MEDS: METROGEL 1% TOPICAL SCH (09:33)
[2016-09-20] MEDS: OXcarbazepine 300 MG TAB PO SCH (09:33)
[2016-09-20] MEDS: predniSONE 20 MG TAB PO SCH (09:34)
[2016-09-20] MEDS: CHOLECALCIFEROL 1,000 UNIT TAB PO SCH (09:35)
[2016-09-20] MEDS: SPIRONOLACTONE 25 MG TAB PO SCH (09:35)
[2016-09-20 10:42] VITALS: TEMP 98.2
[2016-09-20 11:48] LABS: Glucose,Whole Blood 194 mg/dL (75-99)
--- NOTE | 2016-09-20 12:10 | P.PN ---
Subjective Principal diagnosis: Acute exacerbation of CHF Patient seen and examined. Patient states she's feeling much better and would like to go home. She was able to ambulate in the hallways without shortness of breath. She denies fevers, chills, shortness of breath, chest pain. Objective - Vital Signs Vital signs: Vital Signs Temp 98.2 F 09/20/16 09:25 Pulse 62 09/20/16 09:25 Resp 18 09/20/16 09:25 BP 130/69 09/20/16 09:25 Pulse Ox 96 09/20/16 09:25 Intake & Output 09/19/16 09/20/16 09/20/16 18:59 06:59 18:59 Intake Total 420 300 180 Output Total 350 300 Balance 70 0 180 Weight 75.3 kg Intake: Oral 420 300 180 Output: Urine 350 300 Other: Voiding Method Toilet Toilet # Voids 2 1 0 - Exam Gen.: Patient is alert and oriented 3, no acute distress, overweight Cardiovascular: Regular rate and rhythm, S1/S2 Lungs: Clear to auscultation bilaterally no wheezes rales or rhonchi Abdomen: Soft nontender nondistended positive bowel sounds Extremities: Trace edema - Labs CBC & Chem 7: 09/16/16 17:59 09/20/16 05:43 Labs: Abnormal Lab Results - Last 24 Hours (Table) 09/19/16 09/19/16 09/20/16 Range/Units 17:15 21:23 05:43 BUN 39 H (7-17) mg/dL Glucose 142 H (74-99) mg/dL POC Glucose (mg/dL) 343 H 319 H (75-99) mg/dL 09/20/16 09/20/16 Range/Units 06:03 11:47 BUN (7-17) mg/dL Glucose (74-99) mg/dL POC Glucose (mg/dL) 152 H 194 H (75-99) mg/dL Assessment and Plan Plan: Acute exacerbation of CHF, diastolic Acute exacerbation of asthma and COPD, ALLERGIC type asthma Chronic atrial fibrillation Diabetes mellitus type 2 Obesity, possible ASHER Coumadin coagulopathy Hypertension Diuresis Daily weights Continue Pulmicort and duo nebs Would discharge with Advair/Breo/Symbicort, Spiriva/Incruse/Tudorza, Ventolin/ ProAir PRN Pulmonary follow up in 1-2 weeks with PFT and discussion regarding possible ASHER
[2016-09-20 12:22] VITALS: BP 145/82; PULSE 60
[2016-09-20] MEDS: LEVOFLOXACIN 500 MG TAB PO SCH (12:33)
--- NOTE | 2016-09-20 12:49 | P.DS ---
Providers Date of admission: 09/16/16 11:26 Expected date of discharge: 09/20/16 Attending physician: Herbert Siegel Consults: 09/16/16 11:26 Consult Physician Stat Consulting Provider: Eulalio Kuo Consult Reason/Comments: copd Do you want consulting provider notified?: Yes Consult Physician Stat Consulting Provider: Roger Griffith Consult Reason/Comments: Congestive heart failure, history of coronary artery disease Do you want consulting provider notified?: Yes Primary care physician: Bethel Butler [facility] Course: 76 rolled female presented on the day of admission to the emergency room with a chief complaint of feeling short of breath. Patient was admitted to the services of the attending. Pulmonary and cardiology consultation requested. Patient was treated for right side heart failure exacerbated secondary to cor pulmonale and diastolic dysfunction. Patient does have chronic atrial fibrillation rate controlled the Coumadin was stopped this admission and cardiology recommended starting elquist Patient does give a history of having a recent pacemaker implanted 2-3 weeks prior. Patient's symptoms significantly improved after patient was started on IV Lasix. Patient did diurese. Noted improvement in symptoms. Lasix was able to be changed over to oral . From all consulting physicians patient was felt to be appropriate to be discharged home Impression Shortness of breath suspect due to right-sided heart failure exacerbation secondary to cor pulmonale and diastolic dysfunction Shortness of breath due to an acute exacerbation of moderate persistent asthma late onset Chronic atrial fibrillation rate controlled Coumadin stopped eliquist 5mg bid added History of a recent 2-3 week ago implantation pacemaker IgE level elevated on admission consistent with ALLERGIC asthma History of a lung nodule per CAT scan report reviewed by pulmonary service indicates not able to see nodule question the density less conspicuous CAT scan of the chest small right pleural effusion may be due to heart failure diastolic dysfunction Type 2 diabetes insulin requiring uncontrolled hemoglobin A1c 8.5 The above impression and plan of care have been discussed and directed by signing physician. Stephanie Tai nurse practitioner acting as scribe for signing physician. Patient Condition at Discharge: Good Plan - Discharge Summary New Discharge Prescriptions: New Apixaban [Eliquis] 5 mg PO BID #60 tab Spironolactone [Aldactone] 25 mg PO DAILY #30 tab Furosemide [Lasix] 40 mg PO BID@0900,1600 #60 tab Docusate [Colace] 100 mg PO DAILY PRN cap PRN Reason: Constipation predniSONE 40 mg PO DAILY #8 tab Montelukast [Singulair] 10 mg PO HS #30 tab Budesonide-Formot 160-4.5 Mcg [Symbicort 160-4.5 Mcg Inhaler] 2 puff INHALATION BID #1 inhaler Continue metroNIDAZOLE [Metrogel 1%] 1 applic TOPICAL DAILY Cholecalciferol (Vitamin D3) [Vitamin D3] 2,000 unit PO DAILY sitaGLIPtin PHOS/metFORMIN HCL [Janumet Xr 50-500 mg Tablet] 1 tab PO BID OXcarbazepine [Trileptal] 300 mg PO BID OXcarbazepine [Trileptal] 150 mg PO DAILY PRN PRN Reason: Metoprolol Tartrate [Lopressor] 50 mg PO BID Lisinopril [Prinivil] 10 mg PO DAILY Ipratropium-Albuterol Nebulize [Duoneb 0.5 mg-3 mg/3 ml Soln] 3 ml INHALATION RT-QID guaiFENesin 400 mg PO Q4H PRN PRN Reason: cough/congestion ALPRAZolam [Xanax] 0.25 mg PO HS Discontinued Warfarin Sodium [Coumadin] 8 mg PO HS Hydrochlorothiazide [Hydrodiuril] 25 mg PO DAILY Discharge Medication List ALPRAZolam [Xanax] 0.25 mg PO HS 09/16/16 [History] Cholecalciferol (Vitamin D3) [Vitamin D3] 2,000 unit PO DAILY 09/16/16 [History] Ipratropium-Albuterol Nebulize [Duoneb 0.5 mg-3 mg/3 ml Soln] 3 ml INHALATION RT -QID 09/16/16 [History] Lisinopril [Prinivil] 10 mg PO DAILY 09/16/16 [History] Metoprolol Tartrate [Lopressor] 50 mg PO BID 09/16/16 [History] OXcarbazepine [Trileptal] 150 mg PO DAILY PRN 09/16/16 [History] OXcarbazepine [Trileptal] 300 mg PO BID 09/16/16 [History] guaiFENesin 400 mg PO Q4H PRN 09/16/16 [History] metroNIDAZOLE [Metrogel 1%] 1 applic TOPICAL DAILY 09/16/16 [History] sitaGLIPtin PHOS/metFORMIN HCL [Janumet Xr 50-500 mg Tablet] 1 tab PO BID [History] Apixaban [Eliquis] 5 mg PO BID #60 tab 09/20/16 [Rx] Budesonide-Formot 160-4.5 Mcg [Symbicort 160-4.5 Mcg Inhaler] 2 puff INHALATION BID #1 inhaler 09/20/16 [Rx] Docusate [Colace] 100 mg PO DAILY PRN cap 09/20/16 [Rx] Furosemide [Lasix] 40 mg PO BID@0900,1600 #60 tab 09/20/16 [Rx] Montelukast [Singulair] 10 mg PO HS #30 tab 09/20/16 [Rx] Spironolactone [Aldactone] 25 mg PO DAILY #30 tab 09/20/16 [Rx] predniSONE 40 mg PO DAILY #8 tab 09/20/16 [Rx] Follow up Appointment(s)/Referral(s): [facility], [NON-STAFF] - Bethel Longoria NPC [REFERRING] - 1-2 days Jimena Polanco DO [Doctor of Osteopathic Medicine] - 1 Week Trish Gupta MD [STAFF PHYSICIAN] - 1 Week Discharge Disposition: HOME SELF-CARE
[2016-09-20 13:58] LABS: Alternaria alternata IgE <0.35 kU/L (<0.35); Asperg. fumagatus IgE <0.35 kU/L (<0.35); Asperg. fumagatus IgE Class CLASS 0; Birch(Com.Silvr) IgE Class CLASS 0; Cat Epith & Dander IgE <0.35 kU/L (<0.35); Cat Epith & Dander IgE Class CLASS 0; Clad herbarum IgE <0.35 kU/L (<0.35); Clad herbarum IgE Class CLASS 0; Common Ragweed IgE Class CLASS 0; Dermato. Pteronyssinus Class CLASS 0; Dermato. Pteronyssinus IgE <0.35 kU/L (<0.35); Dermato. farinae IgE <0.35 kU/L (<0.35); Dermato. farinae IgE Class CLASS 0; IgE (Allergen) 50.6 IU/mL (<114.0); Maple (Box Elder) IgE <0.35 kU/L (<0.35); Maple (Box Elder) IgE Class CLASS 0; Mountain Cedar IgE <0.35 kU/L (<0.35); Mountain Cedar IgE Class CLASS 0; Mouse Urine IgE Class CLASS 0; Mouse Urine Proteins,IgE <0.35 kU/L (<0.35); Mulberry IgE Class CLASS 0; Nettle IgE <0.35 kU/L (<0.35); Nettle IgE Class CLASS 0; Oak IgE <0.35 kU/L (<0.35); Penicillium notatum IgE Class CLASS 0; Rough Marshelder IgE <0.35 kU/L (<0.35); Rough Marshelder IgE Class CLASS 0; Timothy Grass IgE <0.35 kU/L (<0.35); Timothy Grass IgE Class CLASS 0; White Ash IgE Class CLASS 0
--- NOTE | 2016-09-20 15:57 | P.PN ---
Subjective Principal diagnosis: CHF Patient was admitted to the hospital with respiratory distress and congestive cardiac failure. Overall feeling much better today, breathing is improved significantly. Anticipating discharge. Objective - Vital Signs Vital signs: Vital Signs Temp 98.2 F 09/20/16 09:25 Pulse 60 09/20/16 12:15 Resp 18 09/20/16 12:15 BP 145/82 09/20/16 12:15 Pulse Ox 96 09/20/16 12:15 Intake & Output 09/19/16 09/20/16 09/20/16 18:59 06:59 18:59 Intake Total 420 300 180 Output Total 350 300 Balance 70 0 180 Weight 75.3 kg Intake: Oral 420 300 180 Output: Urine 350 300 Other: Voiding Method Toilet Toilet # Voids 2 1 0 - Exam PHYSICAL EXAMINATION: HEENT: Head is atraumatic, normocephalic. Pupils equal, round. Neck is supple. There is no elevated jugular venous pressure. HEART EXAMINATION: Heart S1, S2 normal. No murmur or gallop heard. CHEST EXAMINATION: Lungs are clear to auscultation and percussion. ABDOMEN: Soft, nontender. Bowel sounds are heard. No organomegaly noted. EXTREMITIES: 2+ peripheral pulses with trace evidence of peripheral edema and no calf tenderness noted. NEUROLOGIC patient is awake, alert and oriented -3. . - Labs CBC & Chem 7: 09/16/16 17:59 09/20/16 05:43 Labs: Abnormal Lab Results - Last 24 Hours (Table) 09/19/16 09/19/16 09/20/16 Range/Units 17:15 21:23 05:43 BUN 39 H (7-17) mg/dL Glucose 142 H (74-99) mg/dL POC Glucose (mg/dL) 343 H 319 H (75-99) mg/dL 09/20/16 09/20/16 Range/Units 06:03 11:47 BUN (7-17) mg/dL Glucose (74-99) mg/dL POC Glucose (mg/dL) 152 H 194 H (75-99) mg/dL Assessment and Plan (1) Diastolic CHF, acute on chronic Status: Acute (2) Chronic a-fib Status: Acute (3) COPD (chronic obstructive pulmonary disease) Status: Acute (4) Diabetes Status: Acute Plan: From cardiology's perspective, she may be able to be discharged once cleared by the primary. We will make her a follow-up appointment in the office post discharge. DNP note has been reviewed, I agree with a documented findings and plan of care. Patient was seen and examined.
== END 2016-09-20 14:54 | disposition home health service (06) | DRG 292 ==
LOC: EC 10:35 → 6SEL 11:26
PROVIDERS: ADMIT Family Medicine; ATTEND Family Medicine
DX: I11.0 Hypertensive heart disease with heart failure (principal); J44.1 Chronic obstructive pulmonary disease with (acute) exacerbation; I27.2 Other secondary pulmonary hypertension; E11.65 Type 2 diabetes mellitus with hyperglycemia; J45.41 Moderate persistent asthma with (acute) exacerbation; I27.81 Cor pulmonale (chronic); I50.33 Acute on chronic diastolic (congestive) heart failure; I48.2 Chronic atrial fibrillation; I25.10 Atherosclerotic heart disease of native coronary artery without angina pectoris; E03.9 Hypothyroidism, unspecified; R91.1 Solitary pulmonary nodule; G47.33 Obstructive sleep apnea (adult) (pediatric); E66.9 Obesity, unspecified; R79.1 Abnormal coagulation profile; R40.2410 Glasgow coma scale score 13-15, unspecified time; Z95.0 Presence of cardiac pacemaker; Z95.5 Presence of coronary angioplasty implant and graft; Z79.01 Long term (current) use of anticoagulants; Z88.5 Allergy status to narcotic agent; Z71.3 Dietary counseling and surveillance; Z90.49 Acquired absence of other specified parts of digestive tract; Z90.710 Acquired absence of both cervix and uterus; Z79.84 Long term (current) use of oral hypoglycemic drugs; Z79.899 Other long term (current) drug therapy; Z87.891 Personal history of nicotine dependence; Z68.27 Body mass index [BMI] 27.0-27.9, adult
CPT/HCPCS: 71010; 71020; 71250; 80053; 82785; 83036; 83880; 84439; 84443; 84484; 85025; 85610; 86001; 86003; 86606; 86609; 93306; 94640; 94760; 99285

== ENCOUNTER 2016-10-05 10:13 | Emergency (ER) | payer MEDICARE, OTHER ==
[2016-10-05] MEDS ORDERED: ONDANSETRON 4 MG/2 ML VIAL IVP STA (11:26)
--- NOTE | 2016-10-05 11:31 | ED ---
Abdominal Pain HPI - General Chief Complaint: Abdominal Pain Stated Complaint: vomiting/abdominal pain Time Seen by Provider: 10/05/16 11:00 Source: patient Mode of arrival: ambulatory Limitations: no limitations - History of Present Illness Initial Comments: Patient is a 76-year-old female with past medical history of diabetes and congestive heart failure who presents to the emergency department for evaluation of epigastric abdominal pain. The patient reports that over the past couple of months she has been hospitalized multiple times for management of her congestive heart failure. She reports that she has undergone multiple medication changes which has resulted in some confusion for her as to whether or not she is taking appropriate medications and dosages. Patient reports that at approximately 27 and 7:30 this morning she took her morning medications, she' s not sure exactly what medication she took but states it was approximately 6 or 7 pills. Shortly after taking her medication she had a breakfast of bread eggs and coffee. Within about 30 minutes of taking her medications she developed epigastric abdominal discomfort and nausea. She denies any vomiting. He does express concern that this discomfort may be because she took the wrong medications. Or due to medication side effects. She does report that she has been on metformin for a number of years however the dose was recently increased and in addition new oral hypoglycemics were added to her medication regimen. She denies any fevers, chills, chest pain, shortness of breath - Related Data Home Medications Medication Instructions Recorded Confirmed ALPRAZolam [Xanax] 0.25 mg PO HS 09/16/16 10/05/16 Cholecalciferol (Vitamin D3) 2,000 unit PO DAILY 09/16/16 10/05/16 [Vitamin D3] Ipratropium-Albuterol Nebulize 3 ml INHALATION RT-QID 09/16/16 10/05/16 [Duoneb 0.5 mg-3 mg/3 ml Soln] Lisinopril [Prinivil] 10 mg PO DAILY 09/16/16 10/05/16 Metoprolol Tartrate [Lopressor] 50 mg PO BID 09/16/16 10/05/16 OXcarbazepine [Trileptal] 300 mg PO BID 09/16/16 10/05/16 guaiFENesin 400 mg PO Q4H PRN 09/16/16 10/05/16 metroNIDAZOLE [Metrogel 1%] 1 applic TOPICAL DAILY 09/16/16 10/05/16 sitaGLIPtin PHOS/metFORMIN HCL 1 tab PO BID 09/16/16 10/05/16 [Janumet Xr 50-500 mg Tablet] Budesonide-Formot 160-4.5 Mcg 2 puff INHALATION RT-BID 10/05/16 10/05/16 [Symbicort 160-4.5 Mcg Inhaler] Previous Rx's Medication Instructions Recorded Apixaban [Eliquis] 5 mg PO BID #60 tab 09/20/16 Docusate [Colace] 100 mg PO DAILY PRN cap 09/20/16 Furosemide [Lasix] 40 mg PO BID@0900,1600 #60 tab 09/20/16 Montelukast [Singulair] 10 mg PO HS #30 tab 09/20/16 Spironolactone [Aldactone] 25 mg PO DAILY #30 tab 09/20/16 predniSONE 40 mg PO DAILY #8 tab 09/20/16 Allergies Allergy/AdvReac Type Severity Reaction Status Date / Time codeine AdvReac Itching Verified 10/05/16 10:43 Review of Systems ROS Statement: Those systems with pertinent positive or pertinent negative responses have been documented in the HPI. ROS Other: All systems not noted in ROS Statement are negative. Constitutional: Denies: fever, chills, weakness Eyes: Denies: vision change ENT: Denies: dental pain, congestion Respiratory: Denies: cough, dyspnea, wheezes Cardiovascular: Denies: chest pain, palpitations, dyspnea on exertion, orthopnea Endocrine: Denies: fatigue Gastrointestinal: Reports: abdominal pain, nausea. Denies: vomiting, diarrhea, constipation Genitourinary: Denies: urgency, dysuria, frequency Musculoskeletal: Denies: back pain Skin: Denies: rash, lesions Neurological: Denies: headache, weakness Psychiatric: Denies: anxiety, depression Hematological/Lymphatic: Denies: easy bleeding, easy bruising Past Medical History Past Medical History: Atrial Fibrillation, Coronary Artery Disease (CAD), Heart Failure, COPD, Diabetes Mellitus, Myocardial Infarction ([place]), Osteoarthritis (OA ) Additional Past Medical History / Comment(s): Trigeminal Neurology, Diabetic Neuropathy, [place] 1994, Last Myocardial Infarction Date:: 1994 History of Any Multi-Drug Resistant Organisms: None Reported Past Surgical History: Appendectomy, Cholecystectomy, Heart Catheterization With Stent, Hysterectomy, Pacemaker Additional Past Surgical History / Comment(s): Angoplasty, Pacemaker August 2016, Foot Surgery, Past Anesthesia/Blood Transfusion Reactions: No Reported Reaction Date of Last Stent Placement:: 1994 Type of Cardiac Device: Permanent Pacemaker Device Placement Date:: August 2016 Past Psychological History: No Psychological Hx Reported Smoking Status: Former smoker Past Alcohol Use History: None Reported Past Drug Use History: None Reported - Past Family History Father Family Medical History: Myocardial Infarction ([place]) Mother Family Medical History: Congestive Heart Failure (CHF), CVA/TIA, Diabetes Mellitus General Exam Limitations: no limitations General appearance: alert, in no apparent distress Head exam: Present: atraumatic, normocephalic, normal inspection Eye exam: Present: normal appearance, PERRL, EOMI. Absent: scleral icterus, conjunctival injection, periorbital swelling ENT exam: Present: normal exam, mucous membranes moist Neck exam: Present: normal inspection. Absent: tenderness, meningismus, lymphadenopathy Respiratory exam: Present: normal lung sounds bilaterally. Absent: respiratory distress, wheezes, rales, rhonchi, stridor Cardiovascular Exam: Present: regular rate, normal rhythm, normal heart sounds. Absent: systolic murmur, diastolic murmur, rubs, gallop, clicks GI/Abdominal exam: Present: soft, normal bowel sounds. Absent: distended, tenderness, guarding, rebound, rigid, organomegaly, mass, pulsatile mass, hernia Rectal exam: Present: deferred Extremities exam: Present: normal inspection, full ROM, normal capillary refill. Absent: tenderness, pedal edema, joint swelling, calf tenderness Neurological exam: Present: alert, oriented X3, CN II-XII intact Psychiatric exam: Present: normal affect, normal mood Skin exam: Present: warm, dry, intact, normal color. Absent: rash Course Vital Signs 10/05/16 10/05/16 10/05/16 10:33 12:39 14:11 Temperature 97.7 F 97.2 F L 97.9 F Pulse Rate 64 73 86 Respiratory 20 18 18 Rate Blood Pressure 110/71 104/56 129/61 O2 Sat by Pulse 96 Oximetry - Reevaluation(s) Reevaluation #1: Patient was reevaluated, resting comfortably in bed. Patient reports her nausea has resolved. 10/05/16 12:03 Medical Decision Making - Lab Data Result diagrams: 10/05/16 11:33 10/05/16 11:33 Lab Results 10/05/16 10/05/16 10/05/16 Range/Units 11:33 11:33 11:33 WBC 12.9 H (3.8-10.6) k/uL RBC 5.12 (3.80-5.40) m/uL Hgb 16.4 H D (11.4-16.0) gm/dL Hct 48.6 H (34.0-46.0) % MCV 94.9 (80.0-100.0) fL MCH 31.9 (25.0-35.0) pg MCHC 33.7 (31.0-37.0) g/dL RDW 14.4 (11.5-15.5) % Plt Count 196 (150-450) k/uL Neutrophils % 69 % Lymphocytes % 20 % Monocytes % 6 % Eosinophils % 3 % Basophils % 0 % Neutrophils # 8.9 H (1.3-7.7) k/uL Lymphocytes # 2.5 (1.0-4.8) k/uL Monocytes # 0.7 (0-1.0) k/uL Eosinophils # 0.3 (0-0.7) k/uL Basophils # 0.1 (0-0.2) k/uL Sodium 137 (137-145) mmol/L Potassium 4.8 (3.5-5.1) mmol/L Chloride 97 L (98-107) mmol/L Carbon Dioxide 23 (22-30) mmol/L Anion Gap 17 mmol/L BUN 47 H (7-17) mg/dL Creatinine 1.28 H (0.52-1.04) mg/dL Est GFR (MDRD) Af Amer 49 (>60 ml/min/1.73 sqM) Est GFR (MDRD) Non-Af 41 (>60 ml/min/1.73 sqM) Glucose 228 H (74-99) mg/dL Calcium 10.0 (8.4-10.2) mg/dL Total Bilirubin 0.9 (0.2-1.3) mg/dL AST 27 (14-36) U/L ALT 35 (9-52) U/L Alkaline Phosphatase 145 H (38-126) U/L Troponin I (0.000-0.034) ng/mL NT-Pro-B Natriuret Pep 989 pg/mL Total Protein 7.6 (6.3-8.2) g/dL Albumin 4.6 (3.5-5.0) g/dL Lipase 222 (23-300) U/L Urine Color Urine Appearance (Clear) Urine pH (5.0-8.0) Ur Specific [place] (1.001-1.035) Urine Protein (Negative) Urine Glucose (UA) (Negative) Urine Ketones (Negative) Urine Blood (Negative) Urine Nitrite (Negative) Urine Bilirubin (Negative) Urine Urobilinogen (<2.0) mg/dL Ur Leukocyte Esterase (Negative) Urine RBC (0-5) /hpf Urine WBC (0-5) /hpf Ur Squamous Epith Cells (0-4) /hpf Amorphous Sediment (None) /hpf Hyaline Casts (0-2) /lpf Urine Mucus (None) /hpf 10/05/16 10/05/16 Range/Units 11:33 14:04 WBC (3.8-10.6) k/uL RBC (3.80-5.40) m/uL Hgb (11.4-16.0) gm/dL Hct (34.0-46.0) % MCV (80.0-100.0) fL MCH (25.0-35.0) pg MCHC (31.0-37.0) g/dL RDW (11.5-15.5) % Plt Count (150-450) k/uL Neutrophils % % Lymphocytes % % Monocytes % % Eosinophils % % Basophils % % Neutrophils # (1.3-7.7) k/uL Lymphocytes # (1.0-4.8) k/uL Monocytes # (0-1.0) k/uL Eosinophils # (0-0.7) k/uL Basophils # (0-0.2) k/uL Sodium (137-145) mmol/L Potassium (3.5-5.1) mmol/L Chloride (98-107) mmol/L Carbon Dioxide (22-30) mmol/L Anion Gap mmol/L BUN (7-17) mg/dL Creatinine (0.52-1.04) mg/dL Est GFR (MDRD) Af Amer (>60 ml/min/1.73 sqM) Est GFR (MDRD) Non-Af (>60 ml/min/1.73 sqM) Glucose (74-99) mg/dL Calcium (8.4-10.2) mg/dL Total Bilirubin (0.2-1.3) mg/dL AST (14-36) U/L ALT (9-52) U/L Alkaline Phosphatase (38-126) U/L Troponin I <0.012 (0.000-0.034) ng/mL NT-Pro-B Natriuret Pep pg/mL Total Protein (6.3-8.2) g/dL Albumin (3.5-5.0) g/dL Lipase (23-300) U/L Urine Color Yellow Urine Appearance Clear (Clear) Urine pH 5.0 (5.0-8.0) Ur Specific [place] 1.016 (1.001-1.035) Urine Protein Negative (Negative) Urine Glucose (UA) 4+ H (Negative) Urine Ketones Negative (Negative) Urine Blood Negative (Negative) Urine Nitrite Negative (Negative) Urine Bilirubin Negative (Negative) Urine Urobilinogen <2.0 (<2.0) mg/dL Ur Leukocyte Esterase Trace H (Negative) Urine RBC 1 (0-5) /hpf Urine WBC 1 (0-5) /hpf Ur Squamous Epith Cells 2 (0-4) /hpf Amorphous Sediment Rare H (None) /hpf Hyaline Casts 10 H (0-2) /lpf Urine Mucus Rare H (None) /hpf Disposition Clinical Impression: Abdominal pain, EDOUARD (acute kidney injury), Medication reaction, Acute abdomen Disposition: HOME SELF-CARE Condition: Good Instructions: Diet for Stomach Ulcers and Gastritis (ED), Gastroesophageal Reflux Disease (ED) Additional Instructions: Follow-up with your primary care doctor next week as scheduled. When you follow up with her primary care doctor please take all of your medications to your appointment. Not just the medications or taking all medications that you have. Allow your primary care doctor to remove all previous medications to ensure that you are not taking any medications E do not need. I also recommend that you take your diabetes medication on an empty stomach and then take her cardiac medications after eating breakfast to prevent stomach upset from taking so many medications on an empty stomach. Ensure that you eat small meals any time that you take medications Referrals: Herbert Siegel MD [Primary Care Provider] - 1-2 days
[2016-10-05 12:02] LABS: Basophils # (A) 0.1 k/uL (0-0.2); Basophils % (A) 0 %; CH 31.6; CHCM 33.4; Eosinophils # (A) 0.3 k/uL (0-0.7); Eosinophils % (A) 3 %; HCT 48.6 % (34.0-46.0); HDW 2.11; Luc # (Auto) 0.32; Luc % (Auto) 3; Lymphocytes # (A) 2.5 k/uL (1.0-4.8); Lymphocytes % (A) 20 %; MCH 31.9 pg (25.0-35.0); MCHC 33.7 g/dL (31.0-37.0); MCV 94.9 fL (80.0-100.0); Mean Platelet Volume 7.8; Monocytes # (A) 0.7 k/uL (0-1.0); Monocytes % (A) 6 %; Neutrophils # (A) 8.9 k/uL (1.3-7.7); Neutrophils % (A) 69 %; RBC 5.12 m/uL (3.80-5.40); RDW 14.4 % (11.5-15.5); WBC 12.9 k/uL (3.8-10.6); WBC (Perox) 12.66
[2016-10-05 12:08] LABS: HGB 16.4 gm/dL (11.4-16.0)
[2016-10-05 12:19] LABS: Potassium 4.8 mmol/L (3.5-5.1); Total Bilirubin 0.9 mg/dL (0.2-1.3); Total Protein 7.6 g/dL (6.3-8.2)
--- NOTE | 2016-10-05 12:25 | XR ---
EXAMINATION TYPE: XR abdomen acute w cxr DATE OF EXAM: 10/05/2016 CLINICAL HISTORY: Epigastric pain with nausea. TECHNIQUE: Single frontal view of chest is obtained. Supine and upright views of the abdomen are acq uired. COMPARISON: CT chest September 17, 2016 FINDINGS: There is persistent patchy bibasilar atelectasis and/or infiltrate. Persistent small right pleural effusion is difficult to exclude without lateral view. Upper lungs remain clear without pneum othorax. There is persistent mild cardiomegaly with single lead pacemaker. Pericardial calcifications on CT are less well seen but redemonstrated on radiographs. Osseous structures are demineralized. Gas is noted in nondistended small bowel loops. Gas and fecal material is seen in nondistended colon . Cholecystectomy clips are present. Right greater than left pelvic phleboliths are seen. There is mu ltilevel spurring in the spine. No pneumoperitoneum is noted. IMPRESSION: 1. Mild cardiomegaly with patchy bibasilar atelectasis and/or infiltrate redemonstrated. No new infil trate is seen. 2. Overall nonobstructive bowel gas pattern.
[2016-10-05] MEDS ORDERED: MAG HYDROX/AL HYDROX/SIMETH 30 ML CUP PO PRN (14:13)
[2016-10-05] MEDS ORDERED: LIDOCAINE VISCOUS 2% 15 ML CUP MUCOUS MEM ONE (14:13)
[2016-10-05 14:27] LABS: Amorphous Sediment,Urine Rare /hpf; Appearance,Urine Clear (Clear); Bilirubin,Urine Negative (Negative); Glucose,Urine (UA) 4+ (Negative); Ketones,Urine Negative (Negative); Leukocyte Esterase,Urine Trace (Negative); Mucus,Urine Rare /hpf; Nitrite,Urine Negative (Negative); Particle Count 1509; Protein,Urine Negative (Negative); RBC,Urine 1 /hpf (0-5); Specific Gravity,Urine 1.016 (1.001-1.035); Squamous Epithelial Cell,Urine 2 /hpf (0-4); UA Billing (MACRO vs. MICRO) MICRO; Urobilinogen,Urine <2.0 mg/dL (<2.0); WBC,Urine 1 /hpf (0-5)
--- NOTE | 2016-10-05 14:42 | US ---
EXAMINATION TYPE: US abdomen complete DATE OF EXAM: 10/05/2016 COMPARISON: 09/16/2012 CLINICAL HISTORY: Pain. Cholecstectomy EXAM MEASUREMENTS: Liver Length: 16.9 cm Gallbladder Wall: Surgically absent cm CBD: 0.40 cm Spleen: 10.5 cm Right Kidney: 10.3 x 4.6 x 4.6 cm Left Kidney: 9.4 x 4.7 x3.8 cm Pancreas: Obscured by bowel gas Liver: wnl Gallbladder: Surgically absent CBD: wnl Spleen: Complex area visualized measuring 1.5 x 1.4 x 1.2 cm Right Kidney: No hydronephrosis or masses seen Left Kidney: No hydronephrosis or masses seen Upper IVC: wnl Abd Aorta: wnl IMPRESSION: 1. Complex 1.5 cm area within the spleen. Does not meet the criteria of a simple cyst. Recommend foll ow-up MRI or CT scan.
[2016-10-05 15:49] VITALS: BP 111/64; PULSE 82; RESP 19; TEMP 96.9
== END 2016-10-05 15:49 | disposition home or self-care (01) ==
LOC: EC 10:13
DX: T50.905A Adverse effect of unspecified drugs, medicaments and biological substances, initial encounter (principal); N17.9 Acute kidney failure, unspecified; R10.0 Acute abdomen; R11.0 Nausea; E11.40 Type 2 diabetes mellitus with diabetic neuropathy, unspecified; I50.9 Heart failure, unspecified; J44.9 Chronic obstructive pulmonary disease, unspecified; I25.10 Atherosclerotic heart disease of native coronary artery without angina pectoris; I25.2 Old myocardial infarction; Z87.891 Personal history of nicotine dependence; Z79.51 Long term (current) use of inhaled steroids; Z79.84 Long term (current) use of oral hypoglycemic drugs; Z79.899 Other long term (current) drug therapy; Z88.5 Allergy status to narcotic agent; Z90.49 Acquired absence of other specified parts of digestive tract
CPT/HCPCS: 99284; 96374; 36415; 93005; 83880; 80053; 83690; 84484; 85025; 81001; 74022; 76700; J2405

== ENCOUNTER 2017-07-20 09:21 | Day surgery (SDC) | payer MEDICARE, OTHER ==
[2017-07-18 14:38] VITALS: BMI 27.8
[~2017-07-20 09:21] MED LIST: ALPRAZolam 0.25 MG TAB PO PRN; ASPIRIN 325 MG TAB PO STA; SODIUM CHLORIDE 0.9% 1,000 ML in EMPTY BAG 1 BAG IV ONE
[2017-07-20 09:47] VITALS: RESP 16; TEMP 98.2
[2017-07-20 09:49] LABS: Glucose,Whole Blood 138 mg/dL (75-99)
[2017-07-20] MEDS ORDERED: SODIUM CHLORIDE 0.9% 1,000 ML IV ONE (09:59)
[2017-07-20] MEDS ORDERED: fentaNYL (PF) 50 MCG/ML 2 ML AMP IVP ONE (10:04)
[2017-07-20] MEDS ORDERED: MIDAZOLAM 2 MG/2 ML VIAL IVP ONE (10:04)
[2017-07-20] MEDS ORDERED: LIDOCAINE 2% INJ 20 MG/ML SQ ONE ×2 (10:05)
[2017-07-20] MEDS ORDERED: IODIXANOL 270 MG/ML 50 ML ML INTRAARTER ONE (10:19)
[2017-07-20] MEDS ORDERED: SYMBICORT 160-4.5 MCG INHALER INHALATION PRN (10:49)
[2017-07-20] MEDS ORDERED: SODIUM CHLORIDE 0.9% 1,000 ML IV SCH (11:00)
--- NOTE | 2017-07-20 11:08 | P.OP ---
Date of Procedure: 07/20/17 Preoperative Diagnosis: Left lower extremity claudication [place] 4 (rest pain) Postoperative Diagnosis: Left SFA stenosis and occlusive disease. Left YOUSIF occlusion and TPT occlusion Procedure(s) Performed: Aortogram with runoffs via right common femoral artery access under ultrasound guidance. Implants: None Anesthesia: local Surgeon: Ibrahima Aguilera Estimated Blood Loss (ml): 5 Pathology: none sent Condition: stable Disposition: same day Indications for Procedure: 77 year old female presented to the office with complaints of left lower extremity worsening pain. She had undergone right lower extremity atherectomy previously with good improvement of her pain on the right. She had been complaining of pain at the toes on her right as well as her left but the left foot and toes have been getting more and more red and tender. She had QUINTIN's done in the office which demonstrated moderate to severe disease on the left and presents today for angiogram with runoffs. Operative Findings: Left SFA occlusive disease extending from the takeoff to the popliteal artery. Left anterior tibial and posterior tibial artery occlusions noted with tibial peroneal trunk stenosis >90%. Right iliac artery stent is intact and patent. Right femoral artery and SFA are patent with good flow. Right popliteal artery below the knee with some stenosis as well as the anterior tibial and peroneal arteries. There is a focal occlusion a the posterior tibial artery on the right. Description of Procedure: After written and informed consent was obtained and all risks, benefits, and complications were described the patient was brought to the lab director and laid in a supine position. The groins were prepped in usual sterile fashion. Timeout was performed in usual fashion. Utilizing ultrasound the right common femoral artery was cannulated and utilizing Seldinger technique a 5 [place] sheath was placed. An .035 glidewire was placed followed by a pigtail catheter. Aortogram was obtained followed by runoffs bilaterally. The catheter and sheath was then removed. Pressure placed for hemostasis. Dressings were placed. Patient tolerated the procedure well and was sent to PACU for recovery. Plan - Discharge Summary Discharge Rx Participant: No New Discharge Prescriptions: No Action Ipratropium-Albuterol Nebulize [Duoneb 0.5 mg-3 mg/3 ml Soln] 3 ml INHALATION RT-QID ALPRAZolam [Xanax] 0.25 mg PO HS Furosemide [Lasix] 40 mg PO BID@0900,1600 #60 tab Montelukast [Singulair] 10 mg PO HS #30 tab Budesonide-Formot 160-4.5 Mcg [Symbicort 160-4.5 Mcg Inhaler] 2 puff INHALATION RT-BID PRN PRN Reason: Shortness Of Breath Losartan [Cozaar] 50 mg PO QAM Gabapentin [Neurontin] 300 mg PO TID Atorvastatin [Lipitor] 40 mg PO HS metFORMIN HCL [Glucophage Xr] 750 mg PO BID Cholecalciferol [Vitamin D3] 5,000 unit PO BID Apixaban [Eliquis] 2.5 mg PO DAILY Victoza 1.8 ml SQ HS Dapagliflozin Propanediol [Farxiga] 5 mg PO DAILY Cyanocobalamin (Vitamin B-12) [Vitamin B-12] 1,000 mcg PO BID Budesonide 1 applic INHALATION HS Acetaminophen [Tylenol Extra Strength] 500 mg PO Q6HR PRN PRN Reason: Moderate Pain Discharge Medication List ALPRAZolam [Xanax] 0.25 mg PO HS 09/16/16 [History] Ipratropium-Albuterol Nebulize [Duoneb 0.5 mg-3 mg/3 ml Soln] 3 ml INHALATION RT -QID 09/16/16 [History] Furosemide [Lasix] 40 mg PO BID@0900,1600 #60 tab 09/20/16 [Rx] Montelukast [Singulair] 10 mg PO HS #30 tab 09/20/16 [Rx] Budesonide-Formot 160-4.5 Mcg [Symbicort 160-4.5 Mcg Inhaler] 2 puff INHALATION RT-BID PRN 10/05/16 [History] Apixaban [Eliquis] 2.5 mg PO DAILY 07/18/17 [History] Atorvastatin [Lipitor] 40 mg PO HS 07/18/17 [History] Budesonide 1 applic INHALATION HS 07/18/17 [History] Cholecalciferol [Vitamin D3] 5,000 unit PO BID 07/18/17 [History] Cyanocobalamin (Vitamin B-12) [Vitamin B-12] 1,000 mcg PO BID 07/18/17 [History] Dapagliflozin Propanediol [Farxiga] 5 mg PO DAILY 07/18/17 [History] Gabapentin [Neurontin] 300 mg PO TID 07/18/17 [History] Losartan [Cozaar] 50 mg PO QAM 07/18/17 [History] Victoza 1.8 ml SQ HS 07/18/17 [History] metFORMIN HCL [Glucophage Xr] 750 mg PO BID 07/18/17 [History] Acetaminophen [Tylenol Extra Strength] 500 mg PO Q6HR PRN 07/20/17 [History] Follow up Appointment(s)/Referral(s): Ibrahima Aguilera DO [STAFF PHYSICIAN] - 1 Week Discharge Disposition: HOME SELF-CARE
[2017-07-20] MEDS ORDERED: IPRATROPIUM-ALBUTEROL 3 ML NEB INHALATION SCH (12:00)
[2017-07-20] MEDS ORDERED: ACETAMINOPHEN TAB 500 MG TAB PO STA (12:50)
[2017-07-20] MEDS ORDERED: ACETAMINOPHEN IV (For NPO) 1,000 MG in EMPTY BAG 1 BAG IVPB ONE (14:00)
[2017-07-20 14:17] VITALS: PULSE 60
[2017-07-20] MEDS ORDERED: FUROSEMIDE 40 MG TAB PO SCH (16:00)
[2017-07-20] MEDS ORDERED: GABAPENTIN 300 MG CAP PO SCH (16:00)
[2017-07-20 18:32] VITALS: BP 136/72
[2017-07-20] MEDS ORDERED: ALPRAZolam 0.25 MG TAB PO SCH (21:00)
[2017-07-20] MEDS ORDERED: BUDESONIDE INHALATION SCH (21:00)
[2017-07-20] MEDS ORDERED: ATORVASTATIN 40 MG TAB PO SCH (21:00)
[2017-07-20] MEDS ORDERED: VICTOZA SQ SCH (21:00)
[2017-07-20] MEDS ORDERED: MONTELUKAST 10 MG TAB PO SCH (21:00)
[2017-07-21] MEDS ORDERED: CHOLECALCIFEROL 1,000 UNIT TAB PO SCH (09:00)
[2017-07-21] MEDS ORDERED: LOSARTAN 50 MG TAB PO SCH (09:00)
[2017-07-21] MEDS ORDERED: NON-FORMULARY DRUG (Dapagliflozin Propanediol [Farxiga] 5 MG) PO SCH (09:00)
[2017-07-21] MEDS ORDERED: NON-FORMULARY DRUG (Cyanocobalamin (Vitamin B-12) [Vitamin B-12] 1,000 MCG) PO SCH (09:00)
[2017-07-21] MEDS ORDERED: APIXABAN 2.5 MG TABLET PO SCH (09:00)
--- NOTE | 2017-07-23 10:07 | IR ---
EXAMINATION TYPE: IR angio abdominal w runoff DATE OF EXAM: 07/20/2017 COMPARISON: NONE HISTORY: Peripheral vascular occlusive disease. Fluoroscopy was provided to the referring clinician. See dictated report from cardiology.
== END 2017-07-20 17:45 | disposition home or self-care (01) ==
LOC: CATHCVL 09:21
PROVIDERS: ATTEND Surgery
DX: I70.223 Atherosclerosis of native arteries of extremities with rest pain, bilateral legs (principal); J44.9 Chronic obstructive pulmonary disease, unspecified; I11.0 Hypertensive heart disease with heart failure; I50.9 Heart failure, unspecified; E11.40 Type 2 diabetes mellitus with diabetic neuropathy, unspecified; Z95.820 Peripheral vascular angioplasty status with implants and grafts; Z95.5 Presence of coronary angioplasty implant and graft; Z95.0 Presence of cardiac pacemaker; Z82.49 Family history of ischemic heart disease and other diseases of the circulatory system; Z79.01 Long term (current) use of anticoagulants; Z79.84 Long term (current) use of oral hypoglycemic drugs; Z79.899 Other long term (current) drug therapy; Z88.5 Allergy status to narcotic agent; Z87.891 Personal history of nicotine dependence
CPT/HCPCS: 36200; 75625; 75716; 76937; C1769 ×3; C1894; J2001; J2250; Q9966; J3010; J0131

== ENCOUNTER → 2018-01-15 | Outpatient (CLI) | payer MEDICARE, OTHER ==
--- NOTE | 2018-01-15 23:47 | CT ---
EXAMINATION TYPE: CT lumbar spine wo con DATE OF EXAM: 01/15/2018 COMPARISON: None HISTORY: 77-year-old female weighing Low back pain. TECHNIQUE: Contiguous axial scanning of the lumbar spine without IV contrast. Coronal and sagittal re constructions performed. CT DLP: 1009 mGycm Automated exposure control for dose reduction was used. FINDINGS: Moderate atherosclerotic calcification throughout the abdominal aorta and some segmental areas of mod erate to severe atherosclerotic calcifications within the iliac arteries. Upper abdominal aorta is ec tatic at 2.6 cm. There is a 1.1 cm with lipid rich adrenal adenoma on the left. Mall hiatal hernia is partially visual ized. Degenerative changes at the SI joints. Vertebral body heights are preserved. Degenerative thinning of the interspinous ligaments with abutment of the spinous processes particular ly at L3-L4 compatible with Baastrup's disease. Multilevel facet arthropathy with grade 1 anterolisthesis at L4-L5. Mild degenerative disc disease th roughout with bulging discs. At T11-T12, no canal or foraminal stenosis. At T12-L1, mild bulging disc without significant canal or foraminal stenosis. At L1-L2, mild bulging disc and mild facet degenerative change. No significant spinal canal or forami nal stenosis. At L2-L3, there is diffuse disc bulge with facet degenerative change. Changes result in mild right gr eater than left neural foraminal stenosis. There is impression on the ventral thecal sac without sign ificant spinal canal stenosis. At L3-L4, there is diffuse disc bulge and facet degenerative change. Impression onto the ventral thec al sac without significant spinal canal stenosis. Changes result in mild bilateral neuroforaminal rajendra nosis, left greater than right. At L4-L5, hypertrophic facet arthropathy with grade 1 anterolisthesis and bulging disc. Changes resul t in minimal bilateral inferior foraminal narrowing. No significant spinal canal stenosis. At L5-S1, bulging disc and facet arthropathy. No significant spinal canal or foraminal stenosis. IMPRESSION: 1. NO VERTEBRAL COMPRESSION COLLAPSE. THERE IS MULTILEVEL FACET ARTHROPATHY WITH GRADE 1 ANTEROLISTHE SIS AT L4-L5. 2. 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 3. MILD MULTILEVEL DEGENERATIVE DISC DISEASE WITH BULGING DISCS. NO SPINAL CANAL STENOSIS. 4. VARIABLE MINIMAL TO MILD NEURAL FORAMINAL NARROWING OUTLINED ABOVE.
--- NOTE | 2018-01-16 10:01 | XR ---
EXAMINATION TYPE: XR foot complete RT DATE OF EXAM: 01/15/2018 COMPARISON: NONE HISTORY: Pain TECHNIQUE: Three views are submitted. FINDINGS: The osseous structures are intact. There is no acute fracture or dislocation. There is moderate ar thropathy of the first MTP joint. Vascular calcifications are seen. Arthropathy of the DIP joints. Ca lcaneal spur noted. Spurring of the head of the first metatarsal noted.. IMPRESSION: 1. No acute fracture or dislocation. If symptoms persist, follow-up exam in 7 to 10 days could be ob tained. 2. MTP joint arthropathy. 3. Arthropathy of the DIP joints with no erosive change.
== END | disposition home or self-care (01) ==
LOC: RADCTMAIN 15:38
PROVIDERS: ATTEND Family Medicine
DX: M99.73 Connective tissue and disc stenosis of intervertebral foramina of lumbar region (principal); M51.26 Other intervertebral disc displacement, lumbar region; M51.36 Other intervertebral disc degeneration, lumbar region; M43.16 Spondylolisthesis, lumbar region; M48.26 Kissing spine, lumbar region; M19.071 Primary osteoarthritis, right ankle and foot
CPT/HCPCS: 72131

== ENCOUNTER 2018-02-01 06:02 | Inpatient (IN) | payer MEDICARE, OTHER ==
[2018-01-31 09:55] VITALS: BMI 43.5
[2018-02-01] MEDS ORDERED: SODIUM CHLORIDE 0.9% 1,000 ML in EMPTY BAG 1 BAG IV ONE (06:14)
[2018-02-01] MEDS ORDERED: MIDAZOLAM 2 MG/2 ML VIAL IV PRN (06:14)
[2018-02-01] MEDS ORDERED: ONDANSETRON 4 MG/2 ML VIAL IVP ONE (06:14)
[2018-02-01] MEDS ORDERED: ALPRAZolam 0.25 MG TAB PO PRN (06:14)
[2018-02-01] MEDS ORDERED: ASPIRIN 325 MG TAB PO STA (06:14)
[2018-02-01] MEDS ORDERED: fentaNYL (PF) 50 MCG/ML 2 ML AMP IV PRN (06:14)
[2018-02-01] MEDS ORDERED: DEXAMETHASONE SOD PHOSPHATE 10 MG/ML 1 ML VIAL IV ONE (06:14)
[2018-02-01] MEDS ORDERED: LACTATED RINGERS 1,000 ML IV SCH (06:14)
[2018-02-01 07:13] LABS: Glucose,Whole Blood 156 mg/dL (75-99)
[2018-02-01 07:21] LABS: Basophils % (A) 0 %; Eosinophils # (A) 0.2 k/uL (0-0.7); Eosinophils % (A) 2 %; HGB 13.7 gm/dL (11.4-16.0); Lymphocytes % (A) 22 %; MCH 30.4 pg (25.0-35.0); MCHC 31.8 g/dL (31.0-37.0); MCV 95.7 fL (80.0-100.0); Mean Platelet Volume 7.2; Monocytes # (A) 0.5 k/uL (0-1.0); Monocytes % (A) 5 %; Neutrophils # (A) 6.2 k/uL (1.3-7.7); Neutrophils % (A) 68 %; Platelet Count 254 k/uL (150-450); RBC 4.49 m/uL (3.80-5.40); WBC 9.2 k/uL (3.8-10.6)
[2018-02-01] MEDS ORDERED: MIDAZOLAM 2 MG/2 ML VIAL ONE (07:28)
[2018-02-01] MEDS ORDERED: PROPOFOL 10 MG/ML 20 ML VIAL IV ONE (07:28)
[2018-02-01] MEDS ORDERED: fentaNYL (PF) 50 MCG/ML 2 ML AMP ONE (07:28)
[2018-02-01] MEDS ORDERED: HEPARIN SODIUM,PORCINE 5,000 UNIT/ML 1 ML VIAL ONE (07:28)
[2018-02-01 07:35] LABS: Calcium 9.6 mg/dL (8.4-10.2); Potassium 4.1 mmol/L (3.5-5.1)
[2018-02-01] MEDS ORDERED: LIDOCAINE 1% (PF) 10MG/ML VIAL SQ ONE (08:09)
[2018-02-01] MEDS: NITROGLYCERIN 1000MCG/10ML SYRINGE INTRAARTER ONE ×2 (09:08→09:20)
[2018-02-01] MEDS ORDERED: IOPAMIDOL-250 100ML BTL INTRAARTER ONE (09:10)
[2018-02-01] MEDS ORDERED: IOPAMIDOL-250 50ML BTL INTRAARTER ONE (10:08)
[2018-02-01] MEDS ORDERED: SYMBICORT 160-4.5 MCG INHALER INHALATION PRN (10:20)
[2018-02-01] MEDS ORDERED: ACETAMINOPHEN TAB 500 MG TAB PO PRN (10:20)
[2018-02-01] MEDS ORDERED: CLOPIDOGREL 75 MG TAB PO ONE (10:50)
[2018-02-01 12:00] LABS: Glucose,Whole Blood 155 mg/dL (75-99)
[2018-02-01] MEDS: HYDROcodone/APAP 5-325MG 1 EACH TAB PO PRN ×2 (12:16→18:13)
[2018-02-01] MEDS: SODIUM CHLORIDE 0.9% 1,000 ML IV SCH (13:57)
[2018-02-01] MEDS: IPRATROPIUM-ALBUTEROL 3 ML NEB INHALATION SCH ×3 (16:24→20:17)
--- NOTE | 2018-02-01 16:30 | P.OP ---
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 Left common femoral artery ultrasound guided access 2. Aortogram with bilateral lower extremity runoff 3. Right lower extremity selective angiogram 4. Right SFA atherectomy with Hawk one device 5. Right Popliteal artery atherectomy with Hawk one device 6. Right SFA, Popliteal artery PTBA with drug eluding (Impact) balloons 7. Right EIA PTBA with 6mm balloon 8. Right EIA stenting with 8 x 80mm Everflex Implants: Everflex 8x80mm stent Anesthesia: MAC Surgeon: Ibrahima Aguilera Estimated Blood Loss (ml): 5 Pathology: none sent Condition: stable Disposition: PACU Indications for Procedure: 78 year old female presented to the office with complaints of non-relenting pain in her right foot. She has a history of right lower extremity iliac stenting and SFA atherectomy in the past. She Operative Findings: Right external iliac artery stenosis approximately 80%. Right SFA complete chronic total occlusion at the takeoff with recollateralization at above-knee popliteal. Right popliteal artery stenosis approximately 70% and tibioperoneal trunk stenosis approximately 90%. Description of Procedure: After written informed consent was obtained the patient all risks benefits and competitions were described the patient is brought to the Protocol Manager and laid in a supine position. The area of the groins were prepped and draped in usual sterile fashion after appropriate anesthetic was performed per the anesthesiologist. Timeout was performed in normal fashion antibiotics were administered prior to accessed. Under ultrasound guidance the left common femoral artery was visualized, local anesthetic was infused overlying the vessel and utilizing a multipurpose needle and Seldinger technique a 6-Russian sheath was placed in normal fashion. Sheath was assessed for patency, ann and flushed easily. An .035 Glidewire was then placed into the aorta followed by pigtail catheter. Aortogram was then obtained followed by withdrawal of the pigtail catheter to the bifurcation and bilateral lower extremity runoff was then obtained. Once completed there was significant disease in the right superficial femoral artery as well as the external iliac artery and therefore a rim catheter was utilized to go up and over with an .035 Glidewire advantage wire. A 7-Russian raabe sheath was then placed into the iliac vessel. Patient was then administered heparin and followed with serial ACTs. Selective angiogram of the right lower extremity was then obtained demonstrating chronic total occlusion of the SFA at the takeoff with recollateralization at the Adolph's canal. Because of this an .035 Glidewire was then utilized to cross the lesion followed by a crossing catheter. Angiogram was obtained once the lesion was crossed showing good intraluminal access. A distal angiogram was obtained demonstrating significant disease at the popliteal artery just below the knee. A spider filter was then placed and atherectomy with Hawk one device was then performed from the SFA proximally extending to the popliteal artery. Multiple passes were performed with good intraluminal gain. At that time there was good visualization of the popliteal and tibial peroneal trunk which appeared to have 90% stenosis and therefore the filter was removed in normal fashion and an .014 wire was then placed across the lesion into the anterior tibial artery. This was followed by a 3 x 80 mm balloon and balloon angioplasty was performed across the lesion. This was followed by a 4 x 150 mm drug-eluting impact balloon with good luminal gain of the tibioperoneal trunk and popliteal artery. A 6 x 150 mm drug-eluting balloon 2 was then utilized for the popliteal and SFA up to the takeoff of the SFA. Areas of stenosis and occlusion were resolved and less than 10% residual stenosis was noted from the SFA extending all the way down to the below-knee popliteal and tibial peroneal trunk. At that time the external iliac artery was then visualized and shown to have approximately 80% stenosis this was balloon angioplastied with the 6mm balloon followed by a 8 x 80 mm self- expanding stent. Post-stent balloon angioplasty with a 7 x 80 mm balloon was utilized for postdilatation. Final angiogram was obtained demonstrating good brisk flow through the external iliac artery, SFA down to the below-knee popliteal with one-vessel runoff the anterior tibial artery to the ankle and foot. Patient tolerated procedure well, all guidewires and catheters were removed. A long sheath was then replaced by short sheath to be pulled at a later time. Patient was then sent to PACU for recovery.
[2018-02-01 16:39] LABS: Glucose,Whole Blood 145 mg/dL (75-99)
[2018-02-01] MEDS: FUROSEMIDE 40 MG TAB PO SCH (18:13)
[2018-02-01] MEDS: CLOPIDOGREL 75 MG TAB PO SCH (18:13)
[2018-02-01 20:44] LABS: Glucose,Whole Blood 190 mg/dL (75-99)
[2018-02-01] MEDS ORDERED: BUDESONIDE INHALATION SCH (21:00)
[2018-02-01] MEDS ORDERED: VICTOZA SQ SCH ×2 (21:00)
[2018-02-01] MEDS: MORPHINE SULFATE 2 MG/ML SYRINGE IVP PRN (21:40)
[2018-02-01] MEDS: ALPRAZolam 0.25 MG TAB PO SCH (21:43)
[2018-02-01] MEDS: MONTELUKAST 10 MG TAB PO SCH (21:44)
[2018-02-01] MEDS: PREGABALIN 75 MG CAP PO SCH (21:44)
[2018-02-01] MEDS: CHOLECALCIFEROL 1,000 UNIT TAB PO SCH (21:48)
[2018-02-01] MEDS: VICTOZA 18 MG/3 ML SQ SCH (21:52)
[2018-02-02 05:39] LABS: Glucose,Whole Blood 183 mg/dL (75-99)
[2018-02-02] MEDS: SODIUM CHLORIDE 0.9% 1,000 ML IV SCH ×2 (07:11→09:04)
[2018-02-02] MEDS: IPRATROPIUM-ALBUTEROL 3 ML NEB INHALATION SCH ×4 (08:51→19:33)
[2018-02-02] MEDS ORDERED: NON-FORMULARY DRUG (Dapagliflozin Propanediol [Farxiga] 5 MG) PO SCH (09:00)
[2018-02-02] MEDS: CLOPIDOGREL 75 MG TAB PO SCH (09:03)
[2018-02-02] MEDS: APIXABAN 2.5 MG TABLET PO SCH (09:03)
[2018-02-02] MEDS: CHOLECALCIFEROL 1,000 UNIT TAB PO SCH ×2 (09:03→20:42)
[2018-02-02] MEDS: ASPIRIN 81 MG PO SCH (09:03)
[2018-02-02] MEDS: PREGABALIN 75 MG CAP PO SCH ×2 (09:03→20:42)
[2018-02-02] MEDS: LOSARTAN 50 MG TAB PO SCH (09:03)
[2018-02-02] MEDS: FUROSEMIDE 40 MG TAB PO SCH ×2 (09:03→16:13)
[2018-02-02] MEDS: PATIENT'S OWN MED (Dapagliflozin Propanediol [Farxiga] 5 MG) PO SCH (09:04)
[2018-02-02] MEDS: MORPHINE SULFATE 2 MG/ML SYRINGE IVP PRN (09:05)
--- NOTE | 2018-02-02 09:13 | CONS ---
CONSULTATION CHIEF COMPLAINT: This 78-year-old white female who was admitted to the hospital status post peripheral artery disease, PTCA x2 of the right distal vascular obstructions. Having no chest pain, shortness of breath. Vital signs stable afebrile. REVIEW OF SYSTEMS: Fourteen point review of systems negative except for mentioned in HPI. PHYSICAL EXAMINATION: CARDIOVASCULAR: S1, S2. LUNGS: Clear. GI: Soft. HEMATOLOGY: Negative Homans. PSYCH: Fair mood and affect. EXTREMITIES: Stasis lesions bilaterally. On 2 L oxygen. NEUROLOGIC: Alert and oriented x3. SKIN: As mentioned above. ASSESSMENT: 1. Peripheral arterial disease. 2. Nicotine addiction. 3. Chronic obstructive pulmonary disease. 4. Congestive heart failure. 5. Obesity. 6. Diabetes mellitus. Continue current treatments. Smoking cessation. Ambulation also was given to the patient. Discharge home in the morning. MMCHRISTOPHERL / VALENTINON: [id number] /
--- NOTE | 2018-02-02 09:44 | P.PN ---
Subjective Progress Note Date: 02/02/18 Principal diagnosis: Lower extremity occlusive disease with rest pain and ulcerations right foot Patient is status post successful endovascular intervention of the right leg. She still feels that she is having extreme pain, mainly in the right foot. She does complain of some pain in the other foot as well as hurting "all over". Objective - Vital Signs Vital signs: Vital Signs Temp 98.7 F 02/02/18 07:44 Pulse 62 02/02/18 07:55 Resp 18 02/02/18 07:44 BP 117/76 02/02/18 07:44 Pulse Ox 94 L 02/02/18 07:44 Intake & Output 02/01/18 02/02/18 02/02/18 18:59 06:59 18:59 Intake Total 440 Output Total 800 900 Balance -360 -900 Weight 76.8 kg Intake: IV 200 Oral 240 Output: Urine 800 900 Uretheral (Mathews) 450 Other: Voiding Method Indwelling Catheter Indwelling Catheter # Voids 1 - Exam Her right foot is toasty warm and pink. Her ulcerations are dry. - Labs CBC & Chem 7: 02/01/18 06:55 02/02/18 06:34 Labs: Abnormal Lab Results - Last 24 Hours (Table) 02/01/18 02/01/18 02/01/18 Range/Units 11:59 16:37 20:36 POC Glucose (mg/dL) 155 H 145 H 190 H (75-99) mg/dL 02/02/18 Range/Units 05:34 POC Glucose (mg/dL) 183 H (75-99) mg/dL Assessment and Plan (1) Atherosclerosis of [place] arteries of extremities with rest pain, right leg Current Visit: Yes Status: Acute Code(s): I70.221 - ATHSCL BOIS FORTE ARTERIES OF EXTREMITIES W REST PAIN, RIGHT LEG SNOMED Code(s): 745363353845975 Plan: The patient has had an excellent radiographic and physiologic improvement post intervention. Her pain is still difficult to control. We will keep her as an inpatient for 1 more day. Hope to have help from primary care in regards to pain management. Hopefully she will be discharged tomorrow.
[2018-02-02 11:01] LABS: Glucose,Whole Blood 180 mg/dL (75-99)
[2018-02-02] MEDS: HYDROcodone/APAP 5-325MG 1 EACH TAB PO PRN ×3 (12:03→21:02)
[2018-02-02 16:41] LABS: Glucose,Whole Blood 196 mg/dL (75-99)
[2018-02-02 20:39] LABS: Glucose,Whole Blood 151 mg/dL (75-99)
[2018-02-02] MEDS: ALPRAZolam 0.25 MG TAB PO SCH (20:43)
[2018-02-02] MEDS: VICTOZA 18 MG/3 ML SQ SCH (22:04)
[2018-02-02] MEDS: MONTELUKAST 10 MG TAB PO SCH (22:12)
[2018-02-03] MEDS: HYDROcodone/APAP 5-325MG 1 EACH TAB PO PRN ×4 (03:58→16:31)
[2018-02-03] MEDS: SODIUM CHLORIDE 0.9% 1,000 ML IV SCH ×2 (04:24→10:12)
[2018-02-03 06:23] LABS: Glucose,Whole Blood 149 mg/dL (75-99)
[2018-02-03] MEDS: MORPHINE SULFATE 2 MG/ML SYRINGE IVP PRN ×2 (06:58→13:59)
[2018-02-03] MEDS: FUROSEMIDE 40 MG TAB PO SCH ×2 (08:46→16:31)
[2018-02-03] MEDS: IPRATROPIUM-ALBUTEROL 3 ML NEB INHALATION SCH ×4 (08:46→20:20)
[2018-02-03] MEDS: PREGABALIN 75 MG CAP PO SCH ×2 (08:46→19:58)
[2018-02-03] MEDS: CHOLECALCIFEROL 1,000 UNIT TAB PO SCH ×2 (08:46→19:57)
[2018-02-03] MEDS: CLOPIDOGREL 75 MG TAB PO SCH (08:47)
[2018-02-03] MEDS: LOSARTAN 50 MG TAB PO SCH (08:47)
[2018-02-03] MEDS: APIXABAN 2.5 MG TABLET PO SCH (08:47)
[2018-02-03] MEDS: ASPIRIN 81 MG PO SCH (08:47)
[2018-02-03] MEDS: PATIENT'S OWN MED (Dapagliflozin Propanediol [Farxiga] 5 MG) PO SCH (10:12)
[2018-02-03 11:17] LABS: Glucose,Whole Blood 157 mg/dL (75-99)
[2018-02-03 16:33] LABS: Glucose,Whole Blood 165 mg/dL (75-99)
[2018-02-03] MEDS: VICTOZA 18 MG/3 ML SQ SCH (19:49)
[2018-02-03] MEDS: MORPHINE SULFATE ER 15 MG TABLET PO SCH (19:58)
[2018-02-03] MEDS: MONTELUKAST 10 MG TAB PO SCH (19:58)
[2018-02-03 20:37] LABS: Glucose,Whole Blood 211 mg/dL (75-99)
--- NOTE | 2018-02-03 21:47 | PN ---
PROGRESS NOTE SUBJECTIVE: 78-year-old white female admitted to the hospital. She is status post vascular procedure for PAD of her right leg. She is complaining of severe pain in her toes in her foot, almost worse than when she had the procedure before the procedure. She is unable to move or bear any weight on the foot. PHYSICAL EXAM: Cardiovascular S1-S2. Psych: She is grimacing in pain. LUNGS: Clear. Vascular shows purple toes 2-4 on the right foot with decreased capillary refill. PLAN: As morphine with [place] combination is barely controlling the pain. We will put on MS Contin twice a day 50 mg b.i.d. for pain control prior to her going home. Hopefully, she will be able to take a combination of that and [place] for the severe pain. MMODL / IJN: [id number] /
[2018-02-04] MEDS: ALPRAZolam 0.25 MG TAB PO SCH (02:16)
[2018-02-04 06:14] LABS: Glucose,Whole Blood 150 mg/dL (75-99)
[2018-02-04] MEDS: HYDROcodone/APAP 5-325MG 1 EACH TAB PO PRN ×3 (06:18→16:57)
[2018-02-04] MEDS: SODIUM CHLORIDE 0.9% 1,000 ML IV SCH ×2 (06:29→10:53)
[2018-02-04 08:18] VITALS: RESP 18
[2018-02-04] MEDS: CLOPIDOGREL 75 MG TAB PO SCH (08:18)
[2018-02-04] MEDS: PREGABALIN 75 MG CAP PO SCH (08:19)
[2018-02-04] MEDS: FUROSEMIDE 40 MG TAB PO SCH ×2 (08:19→17:00)
[2018-02-04] MEDS: ASPIRIN 81 MG PO SCH (08:19)
[2018-02-04] MEDS: APIXABAN 2.5 MG TABLET PO SCH (08:19)
[2018-02-04] MEDS: CHOLECALCIFEROL 1,000 UNIT TAB PO SCH (08:19)
[2018-02-04] MEDS: LOSARTAN 50 MG TAB PO SCH (08:19)
[2018-02-04] MEDS: MORPHINE SULFATE ER 15 MG TABLET PO SCH (08:19)
[2018-02-04] MEDS: PATIENT'S OWN MED (Dapagliflozin Propanediol [Farxiga] 5 MG) PO SCH (08:20)
[2018-02-04] MEDS: IPRATROPIUM-ALBUTEROL 3 ML NEB INHALATION SCH ×3 (09:50→17:53)
[2018-02-04 11:16] VITALS: BP 111/58; TEMP 98.5
[2018-02-04 11:40] LABS: Glucose,Whole Blood 135 mg/dL (75-99)
[2018-02-04 13:41] VITALS: PULSE 80
[2018-02-04 16:28] LABS: Glucose,Whole Blood 162 mg/dL (75-99)
--- NOTE | 2018-02-05 15:10 | IR ---
Fluoroscopy HISTORY: Pain in right leg 23.6 minutes fluoroscopy time supplied to the referring clinician. 1253 intraoperative C-arm images document the procedure. See dictated report from vascular surgery.
--- NOTE | 2018-02-07 10:59 | CDI ---
Last Revision, February 2017 Documentation Clarification Form Date: 02/07/18 From: Lesvia Guzman Phone: If you have a question regarding this query, please contact Mary Tolbert at [phone] between 8am and 5pm. Admit Date: 02/01/2018 6:02:00 AM Patient Name: Ariadne Ortiz Visit Number: [id number] Discharge Date: 02/04/18 ATTENTION: The Clinical Documentation Specialists (CDI) and [facility] Coding Staff appreciate your assistance in clarifying documentation. Please respond to the clarification below the line at the bottom and electronically sign. The CDI & [facility] Coding staff will review the response and follow-up if needed. Please note: Queries are made part of the Legal Health Record. If you have any questions, please contact the author of this message via ITS. Herbert Flynn MD Congestive heart failure is documented in your consult note. History/Risk Factors: Patient has a history of CAD, hypertension and diabetes with peripheral atherosclerosis. Clinical Indicators: No documentation of exacerbation of CHF. VS/Pulse OX: T. 97.9, P. 66, R. 18, BP 128/70 BNP:Not tested. Echocardiogram Results: Not done. Treatment: Furosemide 40 mg daily for maintenance. In your professional opinion, can you please clarify the type of CHF if known? Chronic Systolic Heart Failure: Chronic Diastolic Heart Failure: Chronic Systolic & Diastolic Heart Failure: Unable to Determine Other, please specify MTDD
--- NOTE | 2018-03-03 18:38 | DS ---
DISCHARGE SUMMARY ADDENDUM: Discharge summary: DISCHARGE DIAGNOSES: Acute on chronic diastolic heart failure. MMODL / IJN: [id number] /
== END 2018-02-04 18:07 | disposition home health service (06) | DRG 270 ==
LOC: 2ORMAIN 06:02 → 3SCARD 10:30
PROVIDERS: ADMIT Surgery; ATTEND Surgery
PROC: B41F1ZZ Fluoroscopy of Right Lower Extremity Arteries using Low Osmolar Contrast (ICD-10-PCS; 2018-02-01)
PROC: B41D1ZZ Fluoroscopy of Aorta and Bilateral Lower Extremity Arteries using Low Osmolar Contrast (ICD-10-PCS; 2018-02-01)
PROC: 04CK3ZZ Extirpation of Matter from Right Femoral Artery, Percutaneous Approach (ICD-10-PCS; principal; 2018-02-01 07:28)
PROC: 04CM3ZZ Extirpation of Matter from Right Popliteal Artery, Percutaneous Approach (ICD-10-PCS; 2018-02-01 07:28)
PROC: 047K3Z1 Dilation of Right Femoral Artery using Drug-Coated Balloon, Percutaneous Approach (ICD-10-PCS; 2018-02-01 07:28)
PROC: 047M3Z1 Dilation of Right Popliteal Artery using Drug-Coated Balloon, Percutaneous Approach (ICD-10-PCS; 2018-02-01 07:28)
PROC: 047H3D1 Dilation of Right External Iliac Artery with Intraluminal Device, using Drug-Coated Balloon, Percutaneous Approach (ICD-10-PCS; 2018-02-01 07:28)
DX: E11.51 Type 2 diabetes mellitus with diabetic peripheral angiopathy without gangrene (principal); I50.33 Acute on chronic diastolic (congestive) heart failure; E11.621 Type 2 diabetes mellitus with foot ulcer; L97.519 Non-pressure chronic ulcer of other part of right foot with unspecified severity; I11.0 Hypertensive heart disease with heart failure; E11.40 Type 2 diabetes mellitus with diabetic neuropathy, unspecified; E66.9 Obesity, unspecified; I70.221 Atherosclerosis of native arteries of extremities with rest pain, right leg; I70.8 Atherosclerosis of other arteries; I99.8 Other disorder of circulatory system; J44.9 Chronic obstructive pulmonary disease, unspecified; I25.10 Atherosclerotic heart disease of native coronary artery without angina pectoris; Z68.27 Body mass index [BMI] 27.0-27.9, adult; F17.201 Nicotine dependence, unspecified, in remission; Z98.61 Coronary angioplasty status; Z79.01 Long term (current) use of anticoagulants; Z79.84 Long term (current) use of oral hypoglycemic drugs; Z79.899 Other long term (current) drug therapy; Z88.5 Allergy status to narcotic agent; Z90.49 Acquired absence of other specified parts of digestive tract; Z90.710 Acquired absence of both cervix and uterus; Z95.0 Presence of cardiac pacemaker; Z82.49 Family history of ischemic heart disease and other diseases of the circulatory system
CPT/HCPCS: 37221; 37225; 75625; 75716; 80048; 82565; 85025; 85347; 94640

== ENCOUNTER → 2018-11-08 | Outpatient (CLI) | payer MEDICARE, OTHER ==
[2018-11-08 14:06] LABS: Albumin 4.4 g/dL (3.5-5.0); Calcium 9.3 mg/dL (8.4-10.2); Potassium 3.8 mmol/L (3.5-5.1); Total Bilirubin 1.1 mg/dL (0.2-1.3); Total Protein 7.2 g/dL (6.3-8.2)
--- NOTE | 2018-11-08 17:12 | XR ---
Left foot HISTORY: Diabetic foot ulcer 3 views of the left foot Bone mineralization is reduced, joint spaces and alignment are maintained. There are vascular calcifi cations present. No periostitis to suggest osteomyelitis. Enthesophyte present at the insertion of th e Achilles tendon. There is overlying artifact. IMPRESSION: Osteopenia. Findings compatible with patient's history of diabetes, peripheral occlusive disease.
== END | disposition home or self-care (01) ==
LOC: RADXRMAIN 13:22
PROVIDERS: ATTEND Podiatrist
DX: M85.872 Other specified disorders of bone density and structure, left ankle and foot (principal); Z86.31 Personal history of diabetic foot ulcer
CPT/HCPCS: 80053; 84134

== ENCOUNTER → 2018-11-08 | Outpatient (CLI) | payer MEDICARE, OTHER ==
--- NOTE | 2018-11-11 08:34 | CT ---
EXAMINATION TYPE: CT urogram wo/w con DATE OF EXAM: 11/08/2018 HISTORY: Gross hematuria. CT DLP: 2246mGycm Automated Exposure Control for Dose Reduction was Utilized. CONTRAST: CT scan of the abdomen and pelvis is performed without oral and without and with IV Contrast, patient injected with 100ml mL of Isovue 300. COMPARISON: None. FINDINGS: KUB: Noncontrast images show no renal calculi bilaterally. Postcontrast images show symmetric cortica l medullary uptake and excretion without hydronephrosis seen bilaterally. No suspicious solid or cyst ic renal masses are identified. Visualized portion of both ureters show no suspicious dilatation or m ass. Bladder is within normal limits without intraluminal calculus or mass identified. Scattered pelv ic phleboliths are seen. LUNG BASES: Pericardial calcifications are seen. There is partial visualization of right-sided pacema ker wires. LIVER/GB: Cholecystectomy clips are seen. PANCREAS: No significant abnormality is seen. SPLEEN: A few low low-density round lesions scattered throughout spleen favor simple thin-walled cyst s. ADRENALS: There is 1.8 x 1.0 cm left adrenal mass series 6 image 23., Hounsfield units average less t martell [address] consistent with benign lipid rich adenoma. BOWEL: No significant abnormality is seen. UTERUS/ADNEXA: Uterus is surgically absent or markedly atrophic.. LYMPH NODES: No greater than 1cm abdominal or pelvic lymph nodes are appreciated. OSSEOUS STRUCTURES: No significant abnormality is seen. OTHER: Moderate to severe calcified plaque of the aorta extends into branch vessels suspected right c ommon iliac stent graft. IMPRESSION: No significant finding is seen to account for patient's clinical symptoms of gross hematu ninoska.
== END | disposition home or self-care (01) ==
LOC: RADCTMAIN 12:43
PROVIDERS: ATTEND Urology
DX: R31.0 Gross hematuria (principal); Z88.5 Allergy status to narcotic agent
CPT/HCPCS: 74178; 36415; 74400; Q9967

== ENCOUNTER 2018-12-26 17:06 | Observation (INO) | payer MEDICARE, OTHER ==
[2018-12-26] MEDS ORDERED: SODIUM CHLORIDE 0.9% 1,000 ML IV STA (17:36)
[2018-12-26] MEDS ORDERED: IPRATROPIUM 0.5 MG/2.5 ML NEBU INHALATION STA (17:36)
[2018-12-26] MEDS ORDERED: SODIUM CHLORIDE 0.9% 500 ML 500 ML IV STA (17:36)
[2018-12-26] MEDS ORDERED: AZITHROMYCIN 500 MG in SODIUM CHLORIDE 0.9% 250 ML IVPB STA (17:36)
[2018-12-26] MEDS ORDERED: methylPREDNISolone SOD SUCCI 125 MG/2 ML VIAL IV STA (17:36)
[2018-12-26] MEDS ORDERED: ALBUTEROL NEBULIZED 2.5 MG/3 ML INHALATION STA (17:36)
--- NOTE | 2018-12-26 17:39 | ED ---
SOB HPI - General Chief Complaint: Shortness of Breath Stated Complaint: SOB Time Seen by Provider: 12/26/18 17:11 Source: EMS, RN notes reviewed, old records reviewed Mode of arrival: EMS Limitations: no limitations - History of Present Illness Initial Comments: This is a 70-year-old female the ER today. She presents by EMS for evaluation of shortness of breath. Patient states she has history of asthma COPD and smoker. Patient having increasing cough and congestion, patient admits to little distress flight with her son this afternoon. Patient is denying any chest pain. She states she has bilateral lower extremity edema which is about her baseline. No fevers. She is complaining of increased cough congestion inability to have a productive cough, denies any significant mucus or discoloration of her cough when it is productive. No significant recent hospitalizations no known sick contacts. No travel history MD Complaint: shortness of breath, cough, anxiety -: days(s) Severity: moderate Severity scale (1-10): 7 Quality: dull, aching Consistency: intermittent Improves With: oxygen, rest, bronchodilators, medication Worsens With: exertion Known History Of: COPD, asthma, congestive heart failure Context: recent URI, anxiety Associated Symptoms: cough, sputum production Treatments Prior to Arrival: none - Related Data Home Medications Medication Instructions Recorded Confirmed ALPRAZolam [Xanax] 0.25 mg PO HS 09/16/16 12/26/18 Ipratropium-Albuterol Nebulize 3 ml INHALATION RT-QID 09/16/16 12/26/18 [Duoneb 0.5 mg-3 mg/3 ml Soln] Budesonide-Formot 160-4.5 Mcg 2 puff INHALATION RT-BID PRN 10/05/16 12/26/18 [Symbicort 160-4.5 Mcg Inhaler] Apixaban [Eliquis] 2.5 mg PO DAILY 07/18/17 12/26/18 Cholecalciferol [Vitamin D3] 5,000 unit PO BID 07/18/17 12/26/18 Cyanocobalamin (Vitamin B-12) 1,000 mcg PO BID 07/18/17 12/26/18 [Vitamin B-12] Dapagliflozin Propanediol [Farxiga] 5 mg PO DAILY 07/18/17 12/26/18 Losartan [Cozaar] 50 mg PO QAM 07/18/17 12/26/18 metFORMIN HCL [Glucophage Xr] 750 mg PO BID 07/18/17 12/26/18 Acetaminophen [Tylenol Extra 500 mg PO Q6HR PRN 07/20/17 12/26/18 Strength] Furosemide [Lasix] 20 mg PO DAILY 12/26/18 12/26/18 Liraglutide [Victoza 2-Orlin] 1.8 mg SQ DAILY 12/26/18 12/26/18 Previous Rx's Medication Instructions Recorded Montelukast [Singulair] 10 mg PO HS #30 tab 09/20/16 ALPRAZolam [Xanax] 0.25 mg PO Q4HR PRN tab 02/01/18 Clopidogrel [Plavix] 75 mg PO DAILY #90 tab 02/01/18 Pregabalin [Lyrica] 150 mg PO BID cap 02/01/18 Allergies Allergy/AdvReac Type Severity Reaction Status Date / Time codeine AdvReac Nausea & Verified 12/26/18 18:25 Vomiting sitagliptin [From Janumet] AdvReac frequent Verified 12/26/18 18:25 UTI Review of Systems ROS Statement: Those systems with pertinent positive or pertinent negative responses have been documented in the HPI. ROS Other: All systems not noted in ROS Statement are negative. Past Medical History Past Medical History: Atrial Fibrillation, Coronary Artery Disease (CAD), Heart Failure, COPD, Diabetes Mellitus, Myocardial Infarction (AR), Osteoarthritis (OA), Skin Disorder, Vascular Disorder Additional Past Medical History / Comment(s): Leg pain, Trigeminal Neurology, Diabetic Neuropathy, AR 1994, ROSCACEA Last Myocardial Infarction Date:: 1994 History of Any Multi-Drug Resistant Organisms: None Reported Past Surgical History: Appendectomy, Cholecystectomy, Heart Catheterization With Stent, Hysterectomy, Orthopedic Surgery, Pacemaker Additional Past Surgical History / Comment(s): Arthrectomy rt leg, Angioplasty, Pacemaker August 2016, left Foot Surgery, one heart stent Past Anesthesia/Blood Transfusion Reactions: No Reported Reaction Date of Last Stent Placement:: 1994 Type of Cardiac Device: Permanent Pacemaker Device Placement Date:: August 2016 Past Psychological History: No Psychological Hx Reported Smoking Status: Former smoker - Past Family History Father Family Medical History: Myocardial Infarction (AR) Mother Family Medical History: Congestive Heart Failure (CHF), CVA/TIA, Diabetes Jia itus General Exam Limitations: no limitations General appearance: alert, in no apparent distress, anxious Head exam: Present: atraumatic, normocephalic, normal inspection Eye exam: Present: normal appearance, EOMI. Absent: scleral icterus, conjunctival injection, periorbital swelling ENT exam: Present: normal exam, mucous membranes moist Neck exam: Present: normal inspection. Absent: tenderness, meningismus, lymphadenopathy Respiratory exam: Present: respiratory distress, wheezes, accessory muscle use, decreased breath sounds, prolonged expiratory. Absent: rales, rhonchi, stridor Cardiovascular Exam: Present: regular rate, normal rhythm, normal heart sounds. Absent: systolic murmur, diastolic murmur, rubs, gallop, clicks GI/Abdominal exam: Present: soft, normal bowel sounds. Absent: distended, tenderness, guarding, rebound, rigid Extremities exam: Present: normal inspection, full ROM, normal capillary refill, other (Bilateral lower extremity edema, 1+). Absent: tenderness, pedal edema, joint swelling, calf tenderness Back exam: Present: normal inspection Neurological exam: Present: alert, oriented X3, CN II-XII intact Psychiatric exam: Present: normal affect, normal mood Skin exam: Present: warm, dry, intact, normal color. Absent: rash Course Vital Signs 12/26/18 12/26/18 12/26/18 17:13 17:32 18:07 Temperature 98.9 F Pulse Rate 67 92 Respiratory 16 18 Rate Blood Pressure 128/84 O2 Sat by Pulse 96 Oximetry 12/26/18 18:20 Temperature Pulse Rate 98 Respiratory Rate Blood Pressure O2 Sat by Pulse Oximetry - Reevaluation(s) Reevaluation #1: 12/26/18 17:38 Medical records reviewed Reevaluation #2: 12/26/18 19:39 Patient is actually feeling worse with breathing treatment she is more shaky more anxious or nervous. - Consultations Consultation #1: Spoke with Dr. Medina agreeable for admission Medical Decision Making - Medical Decision Making 30 female the ER with shortness of breath secondary to mild anxiety, compounded with significant COPD exacerbation and new onset CHF. Patient will be admitted for diuresis breathing treatments and monitoring - Lab Data Result diagrams: 12/26/18 17:45 12/26/18 17:45 Lab Results 12/26/18 12/26/18 12/26/18 Range/Units 17:45 17:45 17:45 WBC 8.2 (3.8-10.6) k/uL RBC 4.11 (3.80-5.40) m/uL Hgb 11.7 (11.4-16.0) gm/dL Hct 38.4 (34.0-46.0) % MCV 93.5 (80.0-100.0) fL MCH 28.6 (25.0-35.0) pg MCHC 30.6 L (31.0-37.0) g/dL RDW 16.1 H (11.5-15.5) % Plt Count 214 (150-450) k/uL Neutrophils % 65 % Lymphocytes % 21 % Monocytes % 7 % Eosinophils % 1 % Basophils % 2 % Neutrophils # 5.3 (1.3-7.7) k/uL Lymphocytes # 1.7 (1.0-4.8) k/uL Monocytes # 0.6 (0-1.0) k/uL Eosinophils # 0.1 (0-0.7) k/uL Basophils # 0.2 (0-0.2) k/uL Hypochromasia Slight Anisocytosis Slight PT (9.0-12.0) sec INR (<1.2) APTT (22.0-30.0) sec Sodium 142 (137-145) mmol/L Potassium 4.1 (3.5-5.1) mmol/L Chloride 107 (98-107) mmol/L Carbon Dioxide 22 (22-30) mmol/L Anion Gap 13 mmol/L BUN 33 H (7-17) mg/dL Creatinine 0.84 (0.52-1.04) mg/dL Est GFR (CKD-EPI)AfAm 77 (>60 ml/min/1.73 sqM) Est GFR (CKD-EPI)NonAf 67 (>60 ml/min/1.73 sqM) Glucose 167 H (74-99) mg/dL Calcium 8.8 (8.4-10.2) mg/dL Magnesium 2.3 (1.6-2.3) mg/dL Total Bilirubin 0.7 (0.2-1.3) mg/dL AST 32 (14-36) U/L ALT 25 (9-52) U/L Alkaline Phosphatase 122 (38-126) U/L Troponin I (0.000-0.034) ng/mL NT-Pro-B Natriuret Pep 715 pg/mL Total Protein 7.1 (6.3-8.2) g/dL Albumin 4.1 (3.5-5.0) g/dL 12/26/18 12/26/18 Range/Units 17:45 17:45 WBC (3.8-10.6) k/uL RBC (3.80-5.40) m/uL Hgb (11.4-16.0) gm/dL Hct (34.0-46.0) % MCV (80.0-100.0) fL MCH (25.0-35.0) pg MCHC (31.0-37.0) g/dL RDW (11.5-15.5) % Plt Count (150-450) k/uL Neutrophils % % Lymphocytes % % Monocytes % % Eosinophils % % Basophils % % Neutrophils # (1.3-7.7) k/uL Lymphocytes # (1.0-4.8) k/uL Monocytes # (0-1.0) k/uL Eosinophils # (0-0.7) k/uL Basophils # (0-0.2) k/uL Hypochromasia Anisocytosis PT 11.2 (9.0-12.0) sec INR 1.1 (<1.2) APTT 24.1 (22.0-30.0) sec Sodium (137-145) mmol/L Potassium (3.5-5.1) mmol/L Chloride (98-107) mmol/L Carbon Dioxide (22-30) mmol/L Anion Gap mmol/L BUN (7-17) mg/dL Creatinine (0.52-1.04) mg/dL Est GFR (CKD-EPI)AfAm (>60 ml/min/1.73 sqM) Est GFR (CKD-EPI)NonAf (>60 ml/min/1.73 sqM) Glucose (74-99) mg/dL Calcium (8.4-10.2) mg/dL Magnesium (1.6-2.3) mg/dL Total Bilirubin (0.2-1.3) mg/dL AST (14-36) U/L ALT (9-52) U/L Alkaline Phosphatase (38-126) U/L Troponin I <0.012 (0.000-0.034) ng/mL NT-Pro-B Natriuret Pep pg/mL Total Protein (6.3-8.2) g/dL Albumin (3.5-5.0) g/dL - EKG Data -: EKG Interpreted by Me (EKG shows undetermined rhythm rate of 60, [place] 220, QRS 84, QTC 418) - Radiology Data Radiology results: report reviewed (S x-rays positive for CHF), image reviewed Disposition Clinical Impression: Acute exacerbation of COPD with asthma, Congestive heart failure, Anxiety Disposition: ADMITTED IP TO THIS HOSP Condition: Fair Is patient prescribed a controlled substance at d/c from ED?: No Referrals: He Giraldo MD [Primary Care Provider] - 1-2 days
[2018-12-26 17:58] LABS: Anisocytosis Slight; Basophils # (A) 0.2 k/uL (0-0.2); Basophils % (A) 2 %; Eosinophils # (A) 0.1 k/uL (0-0.7); Eosinophils % (A) 1 %; HCT 38.4 % (34.0-46.0); HGB 11.7 gm/dL (11.4-16.0); Hypochromasia Slight; Lymphocytes # (A) 1.7 k/uL (1.0-4.8); Lymphocytes % (A) 21 %; MCH 28.6 pg (25.0-35.0); MCHC 30.6 g/dL (31.0-37.0); MCV 93.5 fL (80.0-100.0); Mean Platelet Volume 7.3; Monocytes # (A) 0.6 k/uL (0-1.0); Monocytes % (A) 7 %; Neutrophils # (A) 5.3 k/uL (1.3-7.7); Neutrophils % (A) 65 %; Platelet Count 214 k/uL (150-450); RBC 4.11 m/uL (3.80-5.40); RDW 16.1 % (11.5-15.5); WBC 8.2 k/uL (3.8-10.6)
[2018-12-26 18:05] LABS: Albumin 4.1 g/dL (3.5-5.0); Calcium 8.8 mg/dL (8.4-10.2); Magnesium 2.3 mg/dL (1.6-2.3); Total Bilirubin 0.7 mg/dL (0.2-1.3); Total Protein 7.1 g/dL (6.3-8.2)
[2018-12-26 18:06] LABS: INR 1.1 (<1.2); Partial Thromboplastin Time 24.1 sec (22.0-30.0); Prothrombin Time 11.2 sec (9.0-12.0)
[2018-12-26 18:09] LABS: Potassium 4.1 mmol/L (3.5-5.1)
--- NOTE | 2018-12-26 19:14 | XR ---
EXAM: XR Chest, 2 Views CLINICAL HISTORY: ITS.REASON XR Reason: difficulty breathing TECHNIQUE: Frontal and lateral views of the chest. COMPARISON: Chest radiograph on 09/20/2016 FINDINGS: Hardware: None. Lungs/pleura: Bibasilar opacities likely represent atelectasis. Prominent lung markings likely represent pulmonary vasculature congestion. No focal consolidation. No pleural effusion or pneumothorax. Heart/mediastinum: Stable mild enlargement of the cardiac silhouette. Left-sided pacemaker. Atherosclerotic calcifications in the aorta. Pericardial calcifications. Soft tissues: Unremarkable. Bones: No acute fracture. Degenerative changes of the acromioclavicular joints and spine. Upper abdomen: Normal. IMPRESSION: Pulmonary vasculature congestion. Bibasilar atelectasis.
[2018-12-26] MEDS ORDERED: LORazepam 2 MG/ML INJ IV PRN (19:41)
[2018-12-26] MEDS ORDERED: LORazepam 2 MG/ML INJ IV STA (19:41)
[2018-12-26] MEDS: SODIUM CHLORIDE 0.9% 1,000 ML IV SCH (20:02)
[2018-12-26] MEDS: IPRATROPIUM-ALBUTEROL 3 ML NEB INHALATION SCH (20:34)
[2018-12-26 21:05] LABS: Glucose,Whole Blood 251 mg/dL (75-99)
[2018-12-26] MEDS ORDERED: ALPRAZolam 0.25 MG TAB PO PRN (21:19)
[2018-12-26] MEDS: methylPREDNISolone SOD SUCCI 125 MG/2 ML VIAL IV SCH (22:46)
[2018-12-26] MEDS: FUROSEMIDE 10 MG/ML 4 ML VIAL IV SCH (22:46)
[2018-12-26] MEDS: INSULIN ASPART (NovoLOG) 100 UNIT/ML VIAL SQ SCH (22:46)
[2018-12-26] MEDS: metFORMIN 500 MG TAB PO SCH (22:47)
[2018-12-26] MEDS: ALPRAZolam 0.25 MG TAB PO SCH (22:47)
[2018-12-26] MEDS: PREGABALIN 75 MG CAP PO SCH (22:48)
[2018-12-26] MEDS: CYANOCOBALAMIN 500 MCG TAB PO SCH (22:48)
[2018-12-26] MEDS: APIXABAN 2.5 MG TABLET PO SCH (22:49)
[2018-12-26] MEDS: MONTELUKAST 10 MG TAB PO SCH (22:49)
[2018-12-26] MEDS: CHOLECALCIFEROL 1,000 UNIT TAB PO SCH (22:49)
[2018-12-26] MEDS: ACETAMINOPHEN TAB 500 MG TAB PO PRN (23:42)
[2018-12-27] MEDS: methylPREDNISolone SOD SUCCI 125 MG/2 ML VIAL IV SCH ×4 (06:17→23:04)
[2018-12-27] MEDS: ACETAMINOPHEN TAB 500 MG TAB PO PRN ×2 (06:17→23:10)
[2018-12-27 07:01] LABS: Glucose,Whole Blood 250 mg/dL (75-99)
[2018-12-27] MEDS: SYMBICORT 160-4.5 MCG INHALER INHALATION SCH ×2 (07:48→19:38)
[2018-12-27] MEDS: IPRATROPIUM-ALBUTEROL 3 ML NEB INHALATION SCH ×5 (07:48→19:38)
[2018-12-27] MEDS: FARXIGA 5 MG PO SCH (07:50)
[2018-12-27] MEDS: NON FORMULARY DRUG (Liraglutide [Victoza 2-Pak] 1.8 MG) SQ SCH (07:50)
[2018-12-27] MEDS: CYANOCOBALAMIN 500 MCG TAB PO SCH ×2 (08:57→21:34)
[2018-12-27] MEDS: FUROSEMIDE 10 MG/ML 4 ML VIAL IV SCH (08:57)
[2018-12-27] MEDS: NICOTINE 21MG/24HR PATCH TRANSDERM SCH (08:57)
[2018-12-27] MEDS: PREGABALIN 75 MG CAP PO SCH ×2 (08:57→21:34)
[2018-12-27] MEDS: CHOLECALCIFEROL 1,000 UNIT TAB PO SCH ×2 (08:57→21:34)
[2018-12-27] MEDS: INSULIN ASPART (NovoLOG) 100 UNIT/ML VIAL SQ SCH ×4 (08:58→21:35)
[2018-12-27] MEDS: APIXABAN 2.5 MG TABLET PO SCH (08:58)
[2018-12-27] MEDS: LOSARTAN 50 MG TAB PO SCH (08:58)
[2018-12-27] MEDS: metFORMIN 500 MG TAB PO SCH ×2 (08:58→21:35)
[2018-12-27] MEDS ORDERED: CLOPIDOGREL 75 MG TAB PO SCH (09:00)
--- NOTE | 2018-12-27 10:28 | P.CRDCN ---
History of Present Illness History of present illness: This is a pleasant 70-year-old female past medical history significant for coronary artery disease status post angioplasty and diabetes, paroxysmal atrial fibrillation on long-term anticoagulation, sick sinus syndrome status post permanent pacemaker implantation 2016, peripheral vascular disease s/p stengint of the right exertenal iliac 01/2018, chronic diastolic heart failure, COPD, diabetes mellitus, hypertension, diabetic neuropathy with chronic lower extremity wounds and chronic nicotine dependence. She follows in the office with Dr. Kidd. We have been asked to see her in consultation secondary to shortness of breath. She states for the previous 2-3 days she has had difficulty taking in a deep breath, she feels like she cannot get in enough air. She denies exertional dyspnea, PND or orthopnea. She denies chest pain, dizziness, palpitations, nausea, vomiting or diaphoresis. She also has been coughing and bringing up dark brown tinged sputum. She is seen and examined laying completely flat in bed in no acute distress. She is following closely with Dr. Rose and has an appointment this morning she is quite concerned about missing as she states his treatments are really helping her chronic wounds. She denies a change in her weight recently. EKG reveals atrial fibrillation heart rate of 62 with nonspecific abnormalities. Chest x-ray reveals bibasilar atelectasis and pulmonary vascular congestion. Laboratory data reviewed, WBC 8.2, hemoglobin 11.7, platelets 214, sodium 142, potassium 4.1, creatinine 0.84, magnesium 2.3, cardiac enzymes negative 1, proBNP 715. Current daily cardiac medications include Eliquis 2.5 mg twice a day, Plavix 75 mg daily, Lasix 20 mg daily, losartan 50 mg daily. Most recent echocardiogram obtained June 2018 in the office reveals preserved LV systolic function with ejection fraction 55%, severely dilated left atrium, moderate mitral regurgitation and ventricular pacemaker lead noted in the RA and RV. At the time of my exam: CONSTITUTIONAL: Denies fever. Denies chills. EYES: Denies blurred vision. Denies vision changes. Denies eye pain. EARS, NOSE, MOUTH & THROAT: Denies headache. Denies sore throat. Denies ear pain. CARDIOVASCULAR: Denies chest pain. Complains of shortness of breath. Denies orthopnea. Denies PND. Denies palpitations. RESPIRATORY: Complains of cough. GASTROINTESTINAL: Denies abdominal pain. Denies diarrhea. Denies constipation. Denies nausea. Denies vomiting. MUSCULOSKELETAL: Denies myalgias. INTEGUMENTARY: Denies pruitis. Denies rash. NEUROLOGIC: Denies numbness. Denies tingling. Denies weakness. PSYCHIATRIC: Denies anxiety. Denies depression. ENDOCRINE: Denies fatigue. Denies weight change. Denies polydipsia. Denies polyurina. GENITOURINARY: Denies burning, hematuria or urgency with micturation. HEMATOLOGIC: Denies history of anemia. Denies bleeding. Blood pressure 181/98 heart rate 73 afebrile maintaining oxygen saturation on room air GENERAL: This is a 78-year-old female in no apparent distress at the time of my examination. HEENT: Head is atraumatic, normocephalic. Pupils are equal, round. Sclerae anicteric. Conjunctivae are clear. Mucous membranes of the mouth are moist. Neck is supple. There is no jugular venous distention. No carotid bruit is heard. LUNGS: Clear to auscultation no wheezes, rales or rhonchi. No chest wall tenderness is noted on palpation or with deep breathing. HEART: Irregular rate and rhythm with systolic ejection murmur at the left sternal border, no rubs or gallops. S1 and S2 heard. ABDOMEN: Soft, nontender. Bowel sounds are heard. No organomegaly noted. EXTREMITIES: Trace bilateral lower extremity nonpitting edema and no calf tenderness noted. VASCULAR: Radial and dorsalis pedis pulses palpated, no evidence of clubbing. NEUROLOGIC: Patient is awake, alert and oriented x3. ASSESSMENT Shortness of breath, multifactorial secondary to mild exacerbation of chronic diastolic heart failure as well as COPD Paroxysmal atrial fibrillation on long-term anticoagulation History of coronary artery disease status post angioplasty in 1994 Sick sinus syndrome status post permanent pacemaker implantation Hypertension Dyslipidemia Diabetes mellitus Peripheral vascular disease s/p iliac stenting 01/2018 Chronic nicotine dependence PLAN Decrease lasix to 40 mg daily, likely transition to oral tomorrow. Repeat chest xray in the morning. Obtain 2D echocardiogram and doppler study to assess cardiac structure and function. Follow renal function and electrolytes in the morning. Document accurate intake and output along with daily weights. Further recommendations to follow based on clinical course. Thank you kindly for this consultation. Nurse Practitioner note has been reviewed, I agree with a documented findings and plan of care. Patient was seen and examined. Past Medical History Past Medical History: Atrial Fibrillation, Coronary Artery Disease (CAD), Heart Failure, COPD, Diabetes Mellitus, Myocardial Infarction ([place]), Osteoarthritis (OA), Skin Disorder, Vascular Disorder Additional Past Medical History / Comment(s): Leg pain, Trigeminal Neuralgia, Diabetic Neuropathy, [place] 1994, ROSCACEA Last Myocardial Infarction Date:: 1994 History of Any Multi-Drug Resistant Organisms: None Reported Past Surgical History: Appendectomy, Cholecystectomy, Heart Catheterization With Stent, Hysterectomy, Orthopedic Surgery, Pacemaker Additional Past Surgical History / Comment(s): Arthrectomy rt leg, Angioplasty, Pacemaker August 2016, left Foot Surgery, one heart stent Past Anesthesia/Blood Transfusion Reactions: No Reported Reaction Date of Last Stent Placement:: 1994 Type of Cardiac Device: Permanent Pacemaker Device Placement Date:: August 2016 Past Psychological History: No Psychological Hx Reported Smoking Status: Current every day smoker Past Alcohol Use History: None Reported Additional Past Alcohol Use History / Comment(s): smokes 3 cigs per day Past Drug Use History: None Reported - Past Family History Father Family Medical History: Myocardial Infarction ([place]) Mother Family Medical History: Congestive Heart Failure (CHF), CVA/TIA, Diabetes Mellitus Medications and Allergies Home Medications Medication Instructions Recorded Confirmed Type ALPRAZolam [Xanax] 0.25 mg PO HS 09/16/16 12/26/18 History Ipratropium-Albuterol Nebulize 3 ml INHALATION RT-QID 09/16/16 12/26/18 History [Duoneb 0.5 mg-3 mg/3 ml Soln] Montelukast [Singulair] 10 mg PO HS #30 tab 09/20/16 12/26/18 Rx Budesonide-Formot 160-4.5 Mcg 2 puff INHALATION RT-BID PRN 10/05/16 12/26/18 History [Symbicort 160-4.5 Mcg Inhaler] Apixaban [Eliquis] 2.5 mg PO BID 07/18/17 12/26/18 History Cholecalciferol [Vitamin D3] 5,000 unit PO BID 07/18/17 12/26/18 History Cyanocobalamin (Vitamin B-12) 1,000 mcg PO BID 07/18/17 12/26/18 History [Vitamin B-12] Dapagliflozin Propanediol [Farxiga] 5 mg PO DAILY 07/18/17 12/26/18 History Losartan [Cozaar] 50 mg PO QAM 07/18/17 12/26/18 History metFORMIN HCL [Glucophage Xr] 750 mg PO BID 07/18/17 12/26/18 History Acetaminophen [Tylenol Extra 500 mg PO Q6HR PRN 07/20/17 12/26/18 History Strength] ALPRAZolam [Xanax] 0.25 mg PO Q4HR PRN tab 02/01/18 12/26/18 Rx Clopidogrel [Plavix] 75 mg PO DAILY #90 tab 02/01/18 12/26/18 Rx Pregabalin [Lyrica] 150 mg PO BID cap 02/01/18 12/26/18 Rx Furosemide [Lasix] 20 mg PO DAILY 12/26/18 12/26/18 History Liraglutide [Victoza 2-Orlin] 1.8 mg SQ DAILY 12/26/18 12/26/18 History Allergies Allergy/AdvReac Type Severity Reaction Status Date / Time codeine AdvReac Nausea & Verified 12/26/18 20:55 Vomiting sitagliptin [From Janumet] AdvReac frequent Verified 12/26/18 20:55 UTI Physical Exam Vitals: Vital Signs Temp Pulse Pulse Resp BP BP Pulse Ox 12/27/18 08:00 98.2 F 71 73 18 181/98 95 12/27/18 07:48 73 16 95 12/27/18 03:39 98.3 F 72 20 134/77 92 L 12/27/18 00:00 98.4 F 78 20 181/83 96 12/26/18 21:28 18 12/26/18 20:47 98.3 F 78 18 191/82 92 L 12/26/18 20:45 79 12/26/18 20:34 80 12/26/18 20:05 98.8 F 78 19 173/88 98 12/26/18 18:20 98 12/26/18 18:07 92 12/26/18 17:32 18 12/26/18 17:13 98.9 F 67 16 128/84 96 Intake and Output 12/26/18 12/27/18 12/27/18 22:59 06:59 14:59 Intake Total 1000 Output Total 3000 Balance -2000 Intake: Oral 1000 Output: Urine 3000 Other: Voiding Method Toilet Toilet Toilet Weight 79.379 kg Results 12/26/18 17:45 12/26/18 17:45 Cardiac Enzymes 12/26/18 12/26/18 Range/Units 17:45 17:45 AST 32 (14-36) U/L Troponin I <0.012 (0.000-0.034) ng/mL Coagulation 12/26/18 Range/Units 17:45 PT 11.2 (9.0-12.0) sec APTT 24.1 (22.0-30.0) sec CBC 12/26/18 Range/Units 17:45 WBC 8.2 (3.8-10.6) k/uL RBC 4.11 (3.80-5.40) m/uL Hgb 11.7 (11.4-16.0) gm/dL Hct 38.4 (34.0-46.0) % Plt Count 214 (150-450) k/uL Comprehensive Metabolic Panel 12/26/18 Range/Units 17:45 Sodium 142 (137-145) mmol/L Potassium 4.1 (3.5-5.1) mmol/L Chloride 107 (98-107) mmol/L Carbon Dioxide 22 (22-30) mmol/L BUN 33 H (7-17) mg/dL Creatinine 0.84 (0.52-1.04) mg/dL Glucose 167 H (74-99) mg/dL Calcium 8.8 (8.4-10.2) mg/dL AST 32 (14-36) U/L ALT 25 (9-52) U/L Alkaline Phosphatase 122 (38-126) U/L Total Protein 7.1 (6.3-8.2) g/dL Albumin 4.1 (3.5-5.0) g/dL Current Medications Generic Name Dose Route Start Last Admin Trade Name Freq PRN Reason Stop Dose Admin Acetaminophen 500 mg 12/26/18 21:19 12/27/18 06:17 Tylenol Tab PO 500 mg Q6HR PRN Administration Moderate Pain Albuterol/Ipratropium 3 ml 12/27/18 08:00 12/27/18 07:56 Duoneb 0.5 Mg-3 Mg/3 Ml Soln INHALATION Not Given RT-QID FRANTZ Alprazolam 0.25 mg 12/26/18 21:30 12/26/18 22:47 Xanax PO 0.25 mg HS FRANTZ Administration Alprazolam 0.25 mg 12/26/18 21:19 Xanax PO Q4HR PRN Mild Anxiety Apixaban 2.5 mg 12/26/18 21:30 12/27/18 08:58 Eliquis PO 2.5 mg BID FRANTZ Administration Azithromycin 500 mg 12/27/18 18:00 Zithromax PO DAILY@1800 FRANTZ Budesonide/Formoterol Fumarate 2 puff 12/27/18 08:00 12/27/18 07:48 Symbicort 160-4.5 Mcg Inhaler INHALATION 2 puff RT-BID FRANTZ Administration Cholecalciferol 5,000 unit 12/26/18 21:30 12/27/18 08:57 Vitamin D3 (25 Mcg = 1000 Iu) PO 5,000 unit BID FRANTZ Administration Clopidogrel Bisulfate 75 mg 12/27/18 09:00 12/27/18 08:57 Plavix PO 75 mg DAILY FRANTZ Administration Cyanocobalamin 1,000 mcg 12/26/18 21:30 12/27/18 08:57 Vitamin B-12 PO 1,000 mcg BID FRANTZ Administration Furosemide 40 mg 12/28/18 09:00 Lasix IV DAILY FRANTZ Sodium Chloride 1,000 mls @ 20 mls/hr 12/26/18 19:45 12/26/18 20:02 Saline 0.9% IV 20 mls/hr .Q24H FRANTZ Administration Insulin Aspart 0 unit 12/26/18 22:12 12/27/18 08:58 Novolog SQ 8 unit ACHS FRANTZ Administration Protocol Losartan Potassium 50 mg 12/27/18 09:00 12/27/18 08:58 Cozaar PO 50 mg QAM FRANTZ Administration Metformin HCl 750 mg 12/26/18 21:30 12/27/18 08:58 Glucophage PO 750 mg BID FRANTZ Administration Methylprednisolone Sodium Succinate 60 mg 12/27/18 00:00 12/27/18 06:17 Solu-Medrol IV 60 mg Q6HR FRANTZ Administration Montelukast Sodium 10 mg 12/26/18 21:30 12/26/18 22:49 Singulair PO 10 mg HS FRANTZ Administration Nicotine 1 patch 12/27/18 09:00 12/27/18 08:57 Habitrol 21mg/24hr Patch TRANSDERM 1 patch DAILY FRANTZ Administration Farxiga ( 5 mg 12/27/18 09:00 12/27/18 07:50 Dapagliflozin PO Not Given Propanediol) 5 Mg DAILY FRANTZ Non-Formulary Medication 1.8 mg 12/27/18 09:00 12/27/18 07:50 Liraglutide [Victoza 2-Orlin] SQ Not Given DAILY FRANTZ Pregabalin 150 mg 12/26/18 21:30 12/27/18 08:57 Lyrica PO 150 mg BID FRANTZ Administration Intake and Output 12/26/18 12/27/18 12/27/18 22:59 06:59 14:59 Intake Total 1000 Output Total 3000 Balance -2000 Intake: Oral 1000 Output: Urine 3000 Other: Voiding Method Toilet Toilet Toilet Weight 79.379 kg 12/26/18 17:45 12/26/18 17:45
[2018-12-27 11:56] LABS: Glucose,Whole Blood 284 mg/dL (75-99)
[2018-12-27 12:03] VITALS: RESP 18
[2018-12-27 16:01] VITALS: BMI 29.1
[2018-12-27 16:26] LABS: Glucose,Whole Blood 362 mg/dL (75-99)
[2018-12-27] MEDS: SODIUM CHLORIDE 0.9% 1,000 ML IV SCH (17:58)
[2018-12-27] MEDS ORDERED: AZITHROMYCIN 500 MG TAB PO SCH (18:00)
[2018-12-27 20:07] LABS: Glucose,Whole Blood 354 mg/dL (75-99)
--- NOTE | 2018-12-27 20:09 | P.HPIM ---
History of Present Illness H&P Date: 12/27/18 Chief Complaint: Short of breath History of presenting complaint: This is a 78-year-old patient of Dr. Giraldo. Chronic stable medical conditions include coronary artery disease with stent, osteoarthritis, diabetic peripheral neuropathy, rosacea. Patient long-standing smoker. Patient presents with increasing shortness of breath for at least 2 days. Patient is wheezing score a cough bringing up some yellow sputum. No fever no chills. Appetite is okay. Bowel movements are fine. Patient is chronic. Toe wounds that she is guarded to be followed up as an outpatient. Patient also found to be in atrial fibrillation that is chronic. Denies any chest pain. Review of systems: GEN.: Tired EYES: None HEENT: None NECK: None RESPIRATORY: As above CARDIOVASCULAR: As above GASTROINTESTINAL: Non- GENITOURINARY: None MUSCULOSKELETAL: . Joints LYMPHATICS: None HEMATOLOGICAL: None PSYCHIATRY: None NEUROLOGICAL: Peripheral neuropathy Social history: Lives alone. Smokes a pack a day for close to 65 years. Not down to use aggressive day. Last few months. No alcohol. Physical examination: VITAL SIGNS: 98.9, 67, 16, 128/84, 96% room air GENERAL: BMI 29.1, sitting up short of breath tired. EYES: Pupils equal. Conjunctiva normal. HEENT: External appearance of nose and ears normal, oral cavity grossly normal. NECK: JVD not raised; masses not palpable. HEART: Irregular heart sounds, minimal edema. LUNGS: Respiratory rate increased, diminished breath sounds on expiration some wheezing. ABDOMEN: Soft, nontender, liver spleen not palpable, no masses palpable. PSYCH: Alert and oriented x3; mood and affect normal. NEUROLOGICAL: Cranial nerves grossly intact; no facial asymmetry, power and sensation grossly intact. LYMPHATICS: No lymph nodes palpable in the axilla and neck INVESTIGATIONS, reviewed in the clinical context: EKG tracing personally reviewed by me-atrial fibrillation Chest x-ray film personally reviewed by me-peribronchial cuffing, questionable venous prominence, cardiomegaly White count 8.2 hemoglobin 11.7 platelets 214 potassium 4.1 BUN 33 creatinine 0.84 Accu-Cheks 251, 250, 284 ProBNP 715 troponin I less than 0.012 Assessment: -Acute severe COPD exacerbation and a current smoker, with acute tracheobronchitis -Chronic nicotine dependence patient active cigarette smoker -Persistent atrial fibrillation chronically and eliquis -Coronary artery disease a prior history of stent -Primary osteoarthritis -Diabetic peripheral neuropathy Plan: Patient be started on nebulized bronchodilators every 4 hours. IV and intrana jim steroids. We'll also add Mucinex 1200 mg by mouth twice a day. Other home medications resumed. Cardiology opinion was sought. Care was discussed with the patient. Smoke cessation counseling: This was done with the patient. Nicotine patch is being given. More than 3 minutes was spent for this Past Medical History Past Medical History: Atrial Fibrillation, Coronary Artery Disease (CAD), Heart Failure, COPD, Diabetes Mellitus, Myocardial Infarction ([place]), Osteoarthritis ([place]), Skin Disorder, Vascular Disorder Additional Past Medical History / Comment(s): Leg pain, Trigeminal Neuralgia, Diabetic Neuropathy, [place] 1994, ROSCACEA Last Myocardial Infarction Date:: 1994 History of Any Multi-Drug Resistant Organisms: None Reported Past Surgical History: Appendectomy, Cholecystectomy, Heart Catheterization With Stent, Hysterectomy, Orthopedic Surgery, Pacemaker Additional Past Surgical History / Comment(s): Arthrectomy rt leg, Angioplasty, Pacemaker August 2016, left Foot Surgery, one heart stent Past Anesthesia/Blood Transfusion Reactions: No Reported Reaction Date of Last Stent Placement:: 1994 Type of Cardiac Device: Permanent Pacemaker Device Placement Date:: August 2016 Past Psychological History: No Psychological Hx Reported Smoking Status: Current every day smoker Past Alcohol Use History: None Reported Additional Past Alcohol Use History / Comment(s): smokes 3 cigs per day Past Drug Use History: None Reported - Past Family History Father Family Medical History: Myocardial Infarction ([place]) Mother Family Medical History: Congestive Heart Failure (CHF), CVA/TIA, Diabetes Mellitus Medications and Allergies Home Medications Medication Instructions Recorded Confirmed Type ALPRAZolam [Xanax] 0.25 mg PO HS 09/16/16 12/26/18 History Ipratropium-Albuterol Nebulize 3 ml INHALATION RT-QID 09/16/16 12/26/18 History [Duoneb 0.5 mg-3 mg/3 ml Soln] Montelukast [Singulair] 10 mg PO HS #30 tab 09/20/16 12/26/18 Rx Budesonide-Formot 160-4.5 Mcg 2 puff INHALATION RT-BID PRN 10/05/16 12/26/18 History [Symbicort 160-4.5 Mcg Inhaler] Cholecalciferol [Vitamin D3] 5,000 unit PO BID 07/18/17 12/26/18 History Cyanocobalamin (Vitamin B-12) 1,000 mcg PO BID 07/18/17 12/26/18 History [Vitamin B-12] Dapagliflozin Propanediol [Farxiga] 5 mg PO DAILY 07/18/17 12/26/18 History Losartan [Cozaar] 50 mg PO QAM 07/18/17 12/26/18 History metFORMIN HCL [Glucophage Xr] 750 mg PO BID 07/18/17 12/26/18 History Acetaminophen [Tylenol Extra 500 mg PO Q6HR PRN 07/20/17 12/26/18 History Strength] ALPRAZolam [Xanax] 0.25 mg PO Q4HR PRN tab 02/01/18 12/26/18 Rx Pregabalin [Lyrica] 150 mg PO BID cap 02/01/18 12/26/18 Rx Furosemide [Lasix] 20 mg PO DAILY 12/26/18 12/26/18 History Liraglutide [Victoza 2-Orlin] 1.8 mg SQ DAILY 12/26/18 12/26/18 History Apixaban [Eliquis] 5 mg PO BID tab 12/27/18 Rx Allergies Allergy/AdvReac Type Severity Reaction Status Date / Time codeine AdvReac Nausea & Verified 12/26/18 20:55 [facility] AdvReac frequent Verified 12/26/18 20:55 UTI Physical Exam Vitals: Vital Signs Temp Pulse Pulse Resp BP BP Pulse Ox 12/27/18 08:00 98.2 F 71 73 18 181/98 95 12/27/18 07:48 73 16 95 12/27/18 03:39 98.3 F 72 20 134/77 92 L 12/27/18 00:00 98.4 F 78 20 181/83 96 12/26/18 21:28 18 12/26/18 20:47 98.3 F 78 18 191/82 92 L 12/26/18 20:45 79 12/26/18 20:34 80 12/26/18 20:05 98.8 F 78 19 173/88 98 12/26/18 18:20 98 12/26/18 18:07 92 12/26/18 17:32 18 10/03/19 17:13 98.9 F 67 16 128/84 96 Intake and Output 12/26/18 12/27/18 12/27/18 22:59 06:59 14:59 Intake Total 1000 Output Total 3000 Balance -2000 Intake: Oral 1000 Output: Urine 3000 Other: Voiding Method Toilet Toilet Weight 79.379 kg Results CBC & Chem 7: 12/26/18 17:45 12/26/18 17:45 Labs: Abnormal Lab Results - Last 24 Hours (Table) 12/26/18 12/26/18 12/26/18 Range/Units 17:45 17:45 21:04 MCHC 30.6 L (31.0-37.0) g/dL RDW 16.1 H (11.5-15.5) % BUN 33 H (7-17) mg/dL Glucose 167 H (74-99) mg/dL POC Glucose (mg/dL) 251 H (75-99) mg/dL 12/27/18 Range/Units 07:00 MCHC (31.0-37.0) g/dL RDW (11.5-15.5) % BUN (7-17) mg/dL Glucose (74-99) mg/dL POC Glucose (mg/dL) 250 H (75-99) mg/dL Thrombosis Risk Factor Assmnt - Choose All That Apply Any of the Below Risk Factors Present?: Yes Each Factor Represents 1 point: Abnormal pulmonary function (COPD), Heart fail ure (<1month), Obesity (BMI >25), Swollen legs (current) Other Risk Factors: Yes Each Risk Factor Represents 3 Points: Age 75 years or older Other congenital or acquired thrombophilia - If yes, enter type in comment: No Thrombosis Risk Factor Assessment Total Risk Factor Score: 7 Thrombosis Risk Factor Assessment Level: High Risk
[2018-12-27] MEDS ORDERED: INSULIN DETEMIR (LEVEMIR) 100 UNIT/ML SYR SQ SCH (21:00)
[2018-12-27] MEDS ORDERED: INSULIN ASPART (NovoLOG) 100 UNIT/ML VIAL SQ SCH (21:00)
[2018-12-27] MEDS: MONTELUKAST 10 MG TAB PO SCH (21:34)
[2018-12-27] MEDS: APIXABAN 5 MG TAB PO SCH (21:34)
[2018-12-27] MEDS: ALPRAZolam 0.25 MG TAB PO SCH (21:34)
[2018-12-27] MEDS: guaiFENesin 600 MG TABLET.ER PO SCH (21:34)
[2018-12-28] MEDS: IPRATROPIUM-ALBUTEROL 3 ML NEB INHALATION SCH ×4 (02:12→11:23)
[2018-12-28] MEDS: methylPREDNISolone SOD SUCCI 125 MG/2 ML VIAL IV SCH ×2 (06:00→13:24)
--- NOTE | 2018-12-28 06:23 | XR ---
EXAMINATION TYPE: XR chest 2V DATE OF EXAM: 12/28/2018 HISTORY: sob, follow up. REFERENCE: Previous study dated 12/26/2018. FINDINGS: There is unipolar pacemaker place on the left. The lungs are overinflated. The heart is enlarged. There is bibasilar atelectasis. There is blunting of both CP angles. I could not exclude small effusions. IMPRESSION: 1. COPD. 2. CARDIOMEGALY. 3. MILD, BIBASILAR ATELECTASIS. 4. I COULD NOT EXCLUDE SMALL, BILATERAL EFFUSIONS.
[2018-12-28 06:52] LABS: Glucose,Whole Blood 316 mg/dL (75-99)
[2018-12-28 07:00] LABS: Calcium 10.2 mg/dL (8.4-10.2); Potassium 4.6 mmol/L (3.5-5.1)
[2018-12-28] MEDS: INSULIN ASPART (NovoLOG) 100 UNIT/ML VIAL SQ SCH ×2 (07:47→11:49)
[2018-12-28] MEDS: NICOTINE 21MG/24HR PATCH TRANSDERM SCH (07:47)
[2018-12-28] MEDS: PREGABALIN 75 MG CAP PO SCH (07:47)
[2018-12-28] MEDS: CHOLECALCIFEROL 1,000 UNIT TAB PO SCH (07:47)
[2018-12-28] MEDS: LOSARTAN 50 MG TAB PO SCH (07:48)
[2018-12-28] MEDS: metFORMIN 500 MG TAB PO SCH (07:48)
[2018-12-28] MEDS: NON FORMULARY DRUG (Liraglutide [Victoza 2-Pak] 1.8 MG) SQ SCH (07:48)
[2018-12-28] MEDS: APIXABAN 5 MG TAB PO SCH (07:48)
[2018-12-28] MEDS: CYANOCOBALAMIN 500 MCG TAB PO SCH (07:48)
[2018-12-28] MEDS: guaiFENesin 600 MG TABLET.ER PO SCH (07:48)
[2018-12-28] MEDS ORDERED: FORMOTEROL FUMARATE 20 MCG/2 ML NEBU INHALATION SCH (08:00)
[2018-12-28] MEDS ORDERED: BUDESONIDE 1 MG/2 ML NEBU INHALATION SCH (08:00)
--- NOTE | 2018-12-28 08:20 | P.GSHP ---
History of Present Illness H&P Date: 12/28/18 Chief Complaint: Diabetic foot ulcerations left This is a pleasant 70-year-old female past medical history significant for coronary artery disease status post angioplasty and diabetes, paroxysmal atrial fibrillation on long-term anticoagulation, sick sinus syndrome status post permanent pacemaker implantation 2016, peripheral vascular disease s/p stengint of the right exertenal iliac 01/2018, chronic diastolic heart failure, COPD, diabetes mellitus, hypertension, diabetic neuropathy with chronic lower extremity wounds and chronic nicotine dependence. She follows in the office with Dr. Kidd. We have been asked to see her in consultation secondary to shor tness of breath. She states for the previous 2-3 days she has had difficulty taking in a deep breath, she feels like she cannot get in enough air. She denies exertional dyspnea, PND or orthopnea. She denies chest pain, dizziness, palpitations, nausea, vomiting or diaphoresis. She also has been coughing and bringing up dark brown tinged sputum. She is seen and examined laying completely flat in bed in no acute distress. Patient had an appointment in the wound care clinic yesterday and is being seen today for consultation and continue care of the diabetic ulcerations on her left foot. - Constitutional Constitutional: Reports as per HPI - EENT Eyes: bilateral as per HPI Ears: bilateral: decreased hearing Ears, nose, mouth and throat: Denies headache, Denies sore throat - Breasts Breasts: bilateral: as per HPI - Cardiovascular Comment: Diminished pedal pulses bilateral with no digital hair there is edema bilateral feet pitting in nature 05/30 Cardiovascular: Denies chest pain, Denies shortness of breath - Respiratory Respiratory: Denies cough, Denies 7 - Gastrointestinal Gastrointestinal: Denies abdominal pain, Denies diarrhea, Denies nausea, Denies vomiting - Genitourinary (Female) Genitourinary: Denies dysuria, Denies hematuria - Musculoskeletal Comment: Range of motion of the ankle joint subtalar joint and midtarsal joint diminished bilateral hammering of digits 2 through 4 and 5 bilateral all inverters everters plantar flexors dorsiflexors normal symmetrical bilateral Musculoskeletal: Denies myalgias - Integumentary Comment: Bailey grade 2 ulcerations of the left hallux as well as left fourth and fifth digits. Integumentary: Denies pruritus, Denies rash - Neurological Comment: Diabetic neuropathy bilateral up to including lower legs Neurological: Denies numbness, Denies weakness - Psychiatric Psychiatric: Denies anxiety, Denies depression - Endocrine Endocrine: Denies fatigue, Denies weight change Past Medical History Past Medical History: Atrial Fibrillation, Coronary Artery Disease (CAD), Heart Failure, COPD, Diabetes Mellitus, Myocardial Infarction (VA), Osteoarthritis (OA), Skin Disorder, Vascular Disorder Additional Past Medical History / Comment(s): Leg pain, Trigeminal Neuralgia, Diabetic Neuropathy, VA 1994, ROSCACEA Last Myocardial Infarction Date:: 1994 History of Any Multi-Drug Resistant Organisms: None Reported Past Surgical History: Appendectomy, Cholecystectomy, Heart Catheterization With Stent, Hysterectomy, Orthopedic Surgery, Pacemaker Additional Past Surgical History / Comment(s): Arthrectomy rt leg, Angioplasty, Pacemaker August 2016, left Foot Surgery, one heart stent Past Anesthesia/Blood Transfusion Reactions: No Reported Reaction Date of Last Stent Placement:: 1994 Type of Cardiac Device: Permanent Pacemaker Device Placement Date:: August 2016 Past Psychological History: No Psychological Hx Reported Smoking Status: Current every day smoker Past Alcohol Use History: None Reported Additional Past Alcohol Use History / Comment(s): smokes 3 cigs per day Past Drug Use History: None Reported - Past Family History Father Family Medical History: Myocardial Infarction ([place]) Mother Family Medical History: Congestive Heart Failure (CHF), CVA/TIA, Diabetes Mellitus Medications and Allergies Home Medications Medication Instructions Recorded Confirmed Type ALPRAZolam [Xanax] 0.25 mg PO HS 09/16/16 12/26/18 History Ipratropium-Albuterol Nebulize 3 ml INHALATION RT-QID 09/16/16 12/26/18 History [Duoneb 0.5 mg-3 mg/3 ml Soln] Montelukast [Singulair] 10 mg PO HS #30 tab 09/20/16 12/26/18 Rx Budesonide-Formot 160-4.5 Mcg 2 puff INHALATION RT-BID PRN 10/05/16 12/26/18 H istory [Symbicort 160-4.5 Mcg Inhaler] Cholecalciferol [Vitamin D3] 5,000 unit PO BID 07/18/17 12/26/18 History Cyanocobalamin (Vitamin B-12) 1,000 mcg PO BID 07/18/17 12/26/18 History [Vitamin B-12] Dapagliflozin Propanediol [Farxiga] 5 mg PO DAILY 07/18/17 12/26/18 History Losartan [Cozaar] 50 mg PO QAM 07/18/17 12/26/18 History metFORMIN HCL [Glucophage Xr] 750 mg PO BID 07/18/17 12/26/18 History Acetaminophen [Tylenol Extra 500 mg PO Q6HR PRN 07/20/17 12/26/18 History Strength] ALPRAZolam [Xanax] 0.25 mg PO Q4HR PRN tab 02/01/18 12/26/18 Rx Pregabalin [Lyrica] 150 mg PO BID cap 02/01/18 12/26/18 Rx Furosemide [Lasix] 20 mg PO DAILY 12/26/18 12/26/18 History Liraglutide [Victoza 2-Orlin] 1.8 mg SQ DAILY 12/26/18 12/26/18 History Apixaban [Eliquis] 5 mg PO BID tab 12/27/18 Rx Allergies Allergy/AdvReac Type Severity Reaction Status Date / Time codeine AdvReac Nausea & Verified 12/26/18 20:55 Vomiting sitagliptin [From Janumet] AdvReac frequent Verified 12/26/18 20:55 UTI Surgical - Exam Vital Signs Temp Pulse Resp BP Pulse Ox 98.9 F 67 16 128/84 96 12/26/18 17:13 12/26/18 17:13 12/26/18 17:13 12/26/18 17:13 12/26/18 17:13 - Cardiovascular No change in vascular status to the lower extremities bilateral diminished pedal pulses no digital digital hair pitting edema - Integumentary Full-thickness Bailey grade 2 ulcerations of the left hallux as well as left fourth and fifth toes without sign of infection. - Neurologic Diminished epicritic and pallesthetic sensations bilateral with diabetic polyneuropathy to the lower legs bilateral - Musculoskeletal All inverters everters plantar flexed dorsiflexors grossly intact and symmetric bilateral range of motion ankle joint subtalar joint and midtarsal joints diminished bilateral with hammering of digits 2345 bilateral Results - Labs 12/26/18 17:45 12/28/18 05:46 Abnormal Lab Results - Last 24 Hours (Table) 12/27/18 12/27/18 12/27/18 Range/Units 11:54 16:24 20:05 BUN (7-17) mg/dL Glucose (74-99) mg/dL POC Glucose (mg/dL) 284 H 362 H 354 H (75-99) mg/dL 12/28/18 12/28/18 Range/Units 05:46 06:50 BUN 39 H (7-17) mg/dL Glucose 329 H (74-99) mg/dL POC Glucose (mg/dL) 316 H (75-99) mg/dL Microbiology - Last 24 Hours (Table) 12/26/18 18:01 Blood Culture - Preliminary Blood No Growth after 24 hours Diabetes panel 12/28/18 Range/Units 05:46 Sodium 141 (137-145) mmol/L Potassium 4.6 (3.5-5.1) mmol/L Chloride 104 (98-107) mmol/L Carbon Dioxide 24 (22-30) mmol/L BUN 39 H (7-17) mg/dL Creatinine 0.89 (0.52-1.04) mg/dL Glucose 329 H (74-99) mg/dL Calcium 10.2 (8.4-10.2) mg/dL Calcium panel 12/28/18 Range/Units 05:46 Calcium 10.2 (8.4-10.2) mg/dL Pituitary panel 12/28/18 Range/Units 05:46 Sodium 141 (137-145) mmol/L Potassium 4.6 (3.5-5.1) mmol/L Chloride 104 (98-107) mmol/L Carbon Dioxide 24 (22-30) mmol/L BUN 39 H (7-17) mg/dL Creatinine 0.89 (0.52-1.04) mg/dL Glucose 329 H (74-99) mg/dL Calcium 10.2 (8.4-10.2) mg/dL Adrenal panel 12/28/18 Range/Units 05:46 Sodium 141 (137-145) mmol/L Potassium 4.6 (3.5-5.1) mmol/L Chloride 104 (98-107) mmol/L Carbon Dioxide 24 (22-30) mmol/L BUN 39 H (7-17) mg/dL Creatinine 0.89 (0.52-1.04) mg/dL Glucose 329 H (74-99) mg/dL Calcium 10.2 (8.4-10.2) mg/dL Assessment and Plan Assessment: Bailey grade 2 ulcerations diabetic left foot times 3X Diabetic polyneuropathy bilateral Peripheral vascular disease bilateral Plan: Exam. Discussed with patient findings and treatment plan. We'll continue to treat the patient conservatively and we'll apply medical Honey as well as dry sterile dressing to the wounds. Patient to continue to ambulate in the surgical shoe. Patient is to return to wound care clinic upon discharge.
[2018-12-28 08:58] VITALS: BP 164/64; PULSE 72; TEMP 98.4
[2018-12-28] MEDS ORDERED: FUROSEMIDE 10 MG/ML 4 ML VIAL IV SCH (09:00)
[2018-12-28] MEDS ORDERED: CLOPIDOGREL 75 MG TAB PO SCH (09:00)
[2018-12-28] MEDS: FARXIGA 5 MG PO SCH (09:40)
--- NOTE | 2018-12-28 11:37 | P.PN ---
Subjective This is a pleasant 70-year-old female past medical history significant for coronary artery disease status post angioplasty and diabetes, paroxysmal atrial fibrillation on long-term anticoagulation, sick sinus syndrome status post permanent pacemaker implantation 2016, peripheral vascular disease s/p stengint of the right exertenal iliac 01/2018, chronic diastolic heart failure, COPD, diabetes mellitus, hypertension, diabetic neuropathy with chronic lower extremity wounds and chronic nicotine dependence. She follows in the office wi Dr. Gupta. She is seen and examined ambulating the halls in no acute distress. Blood pressure 164/60 were rate 72 afebrile maintaining oxygen saturation on room air. Laboratory data reviewed, sodium 141, potassium 4.6, creatinine 0.89. She states overall her breathing has improved however not back to baseline. She denies chest pain, dizziness or palpitations. GENERAL: This is a 78-year-old female in no apparent distress at the time of my examination. HEENT: Head is atraumatic, normocephalic. Pupils are equal, round. Sclerae anicteric. Conjunctivae are clear. Mucous membranes of the mouth are moist. Neck is supple. There is no jugular venous distention. No carotid bruit is heard. LUNGS: Clear to auscultation no wheezes, rales or rhonchi. No chest wall tenderness is noted on palpation or with deep breathing. HEART: Irregular rate and rhythm with systolic ejection murmur at the left sternal border, no rubs or gallops. S1 and S2 heard. EXTREMITIES: Trace bilateral lower extremity nonpitting edema and no calf tenderness noted. ASSESSMENT Shortness of breath, multifactorial secondary to mild exacerbation of chronic diastolic heart failure as well as COPD Paroxysmal atrial fibrillation on long-term anticoagulation History of coronary artery disease status post angioplasty in 1994 Sick sinus syndrome status post permanent pacemaker implantation Hypertension Dyslipidemia Diabetes mellitus Peripheral vascular disease s/p iliac stenting 01/2018 Chronic nicotine dependence PLAN Transitioned to oral diuretics. Stable for discharge from a cardiac perspective. Follow up with Dr. Gupta upon discharge. Nurse Practitioner note has been reviewed, I agree with a documented findings and plan of care. Patient was seen and examined. Objective - Vital Signs Vital signs: Vital Signs Temp 98.4 F 12/28/18 08:00 Pulse 74 12/28/18 08:33 Resp 18 12/28/18 08:00 BP 164/64 12/28/18 08:00 Pulse Ox 95 12/28/18 08:09 Intake & Output 12/27/18 12/28/18 12/28/18 18:59 06:59 18:59 Output Total 1900 Balance -1900 Weight 79.379 kg 78.8 kg Output: Urine 1900 Other: Voiding Method Toilet Toilet Toilet - Labs CBC & Chem 7: 12/26/18 17:45 12/28/18 05:46 Labs: Abnormal Lab Results - Last 24 Hours (Table) 12/27/18 12/27/18 12/27/18 Range/Units 11:54 16:24 20:05 BUN (7-17) mg/dL Glucose (74-99) mg/dL POC Glucose (mg/dL) 284 H 362 H 354 H (75-99) mg/dL 12/28/18 12/28/18 Range/Units 05:46 06:50 BUN 39 H (7-17) mg/dL Glucose 329 H (74-99) mg/dL POC Glucose (mg/dL) 316 H (75-99) mg/dL Microbiology - Last 24 Hours (Table) 12/26/18 18:01 Blood Culture - Preliminary Blood No Growth after 24 hours
[2018-12-28 11:39] LABS: Glucose,Whole Blood 321 mg/dL (75-99)
[2018-12-28] MEDS: ACETAMINOPHEN TAB 500 MG TAB PO PRN (13:44)
--- NOTE | 2018-12-28 17:00 | ECHOF ---
Referral Reason:sob MEASUREMENTS -------- HEIGHT: 165.1 cm WEIGHT: 79.4 kg BP: 134/77 RVIDd: 3.4 cm (< 3.3) IVSd: 1.3 cm (0.6 - 1.1) LVIDd: 4.2 cm (3.9 - 5.3) LVPWd: 1.2 cm (0.6 - 1.1) IVSs: 1.9 cm LVIDs: 2.8 cm LVPWs: 1.7 cm LA Diam: 3.7 cm (2.7 - 3.8) LAESV Index (A-L): 66.51 ml/m Ao Diam: 3.5 cm (2.0 - 3.7) AV Cusp: 2.3 cm (1.5 - 2.6) MV EXCURSION: 17.310 mm (> 18.000) MV EF SLOPE: 173 mm/s (70 - 150) EPSS: 0.3 cm MV E Efraín: 1.34 m/s MV DecT: 148 ms MV A Efraín: 0.38 m/s MV E/A Ratio: 3.49 RAP: 15.00 mmHg RVSP: 46.35 mmHg TAPSE: 8.66 mm FINDINGS -------- Atrial fibrillation. This was a technically good study. The left ventricular size is normal. There is borderline concentric left ventricular hypertrophy. Overall left ventricular systolic function is normal with, an EF between 55 - 60 %. The right ventricle is mildly enlarged. LA is severely dilated >40 ml/m2 The right atrium is normal in size. Interatrial and interventricular septum intact. There is mild aortic valve sclerosis. There is trace to mild mitral regurgitation. Mild tricuspid regurgitation present. There is mild to moderate pulmonary hypertension. The right ventricular systolic pressure, as measured by Doppler, is 46.35mmHg. Trace/mild (physiologic) pulmonic regurgitation. The aortic root size is normal. The inferior vena cava is dilated with no significant inspiratory collapse which is consistent estima mathew right atrial pressure of >15 mmHg. There is no pericardial effusion. CONCLUSIONS -------- 1. Atrial fibrillation. 2. This was a technically good study. 3. The left ventricular size is normal. 4. There is borderline concentric left ventricular hypertrophy. 5. Overall left ventricular systolic function is normal with, an EF between 55 - 60 %. 6. The right ventricle is mildly enlarged. 7. LA is severely dilated >40 ml/m2 8. The right atrium is normal in size. 9. Interatrial and interventricular septum intact. 10. There is mild aortic valve sclerosis. 11. There is trace to mild mitral regurgitation. 12. Mild tricuspid regurgitation present. 13. There is mild to moderate pulmonary hypertension. 14. The right ventricular systolic pressure, as measured by Doppler, is 46.35mmHg. 15. Trace/mild (physiologic) pulmonic regurgitation. 16. The aortic root size is normal. 17. The inferior vena cava is dilated with no significant inspiratory collapse which is consistent es timated right atrial pressure of >15 mmHg. 18. There is no pericardial effusion. FLYING TEACHER: Luz Gomez RDCS
--- NOTE | 2018-12-28 19:49 | P.DS ---
Providers Date of admission: 12/26/18 19:39 Expected date of discharge: 12/28/18 Attending physician: Momo Medina Consults: 12/26/18 20:53 Consult Physician Routine Consulting Provider: Roger Griffith Consult Reason/Comments: heart failure Do you want consulting provider notified?: Yes, Notify in am 12/27/18 08:21 Consult Physician Routine Consulting Provider: Diego Rose Consult Reason/Comments: follows in wound clinic Do you want consulting provider notified?: Already Contacted Primary care physician: He Giraldo [facility] Course: Chief Complaint: Short of breath Hospital course: This is a 78-year-old patient of Dr. Giraldo. Chronic stable medical conditions include coronary artery disease with stent, osteoarthritis, diabetic peripheral neuropathy, rosacea. Patient long-standing smoker. Patient presents with increasing shortness of breath for at least 2 days. Patient is wheezing score a cough bringing up some yellow sputum. No fever no chills. Appetite is okay. Bowel movements are fine. Toe wounds that is chronic, to be followed up as an outpatient. Patient also found to be in atrial fibrillation that is chronic. Denies any chest pain. Admitted with COPD exacerbation. Treated with bronchodilators steroids. She responded well. Patient counseled about DC smoking. Today-care was discussed at length with the patient. Questions were answered. Discussion and discharge planning more than 35 minutes Consultation: Dr. AUSTIN Kuo from cardiology Dr. Rose for the wound care. Physical examination: VITAL SIGNS: 98.4, 72, 18, 164/64, 96% room air GENERAL: Sitting at the age of breath, breathing better. EYES: Pupils equal. Conjunctiva normal. HEENT: External appearance of nose and ears normal, oral cavity grossly normal. NECK: JVD not raised; masses not palpable. HEART: Irregular heart sounds, minimal edema. LUNGS: Respiratory rate increased, diminished breath sounds on expiration some wheezing. ABDOMEN: Soft, nontender, liver spleen not palpable, no masses palpable. PSYCH: Alert and oriented x3; mood and affect normal. Extremities: ulcerations of the left hallux and the left fourth and fifth digits INVESTIGATIONS, reviewed in the clinical context: EKG tracing personally reviewed by me-atrial fibrillation Chest x-ray film personally reviewed by me-peribronchial cuffing, questionable venous prominence, cardiomegaly White count 8.2 hemoglobin 11.7 platelets 214 potassium 4.1 BUN 33 creatinine 0.84 Accu-Cheks 251, 250, 284 ProBNP 715 troponin I less than 0.012 2-D echo-EF 55-60% Discharge diagnosis: -Acute severe COPD exacerbation and a current smoker, with acute tracheobronchitis -Chronic nicotine dependence patient active cigarette smoker -Persistent atrial fibrillation chronically and eliquis -Coronary artery disease a prior history of stent -Primary osteoarthritis -Diabetic peripheral neuropathy -Diabetic foot ulcers with ulcerations of the left hallux and the left fourth and fifth digits-Bailey grade 2 Disposition: Home Patient Condition at Discharge: Stable Plan - Discharge Summary Discharge Rx Participant: No New Discharge Prescriptions: New Apixaban [Eliquis] 5 mg PO BID tab metFORMIN HCL [Glucophage] 1,000 mg PO BID #60 tab Nicotine 21Mg/24Hr Patch [Habitrol] 1 patch TRANSDERM DAILY #14 patch Furosemide [Lasix] 40 mg PO DAILY #30 tab guaiFENesin [Mucinex] 1,200 mg PO Q12HR #30 tablet.er predniSONE 10 mg PO DAILY #30 tab Azithromycin [Zithromax] 500 mg PO DAILY@1800 #3 tab Continue Ipratropium-Albuterol Nebulize [Duoneb 0.5 mg-3 mg/3 ml Soln] 3 ml INHALATION RT-QID ALPRAZolam [Xanax] 0.25 mg PO HS Montelukast [Singulair] 10 mg PO HS #30 tab Budesonide-Formot 160-4.5 Mcg [Symbicort 160-4.5 Mcg Inhaler] 2 puff INHALATION RT-BID PRN PRN Reason: Shortness Of Breath Losartan [Cozaar] 50 mg PO QAM Cholecalciferol [Vitamin D3 (25 Mcg = 1000 Iu)] 5,000 unit PO BID Dapagliflozin Propanediol [Farxiga] 5 mg PO DAILY Cyanocobalamin (Vitamin B-12) [Vitamin B-12] 1,000 mcg PO BID Acetaminophen [Tylenol Extra Strength] 500 mg PO Q6HR PRN PRN Reason: Moderate Pain ALPRAZolam [Xanax] 0.25 mg PO Q4HR PRN tab PRN Reason: Mild Anxiety Pregabalin [Lyrica] 150 mg PO BID cap Liraglutide [Victoza 2-Orlin] 1.8 mg SQ DAILY Discontinued metFORMIN HCL [Glucophage Xr] 750 mg PO BID Apixaban [Eliquis] 2.5 mg PO BID Clopidogrel [Plavix] 75 mg PO DAILY #90 tab Furosemide [Lasix] 20 mg PO DAILY Discharge Medication List ALPRAZolam [Xanax] 0.25 mg PO HS 09/16/16 [History] Ipratropium-Albuterol Nebulize [Duoneb 0.5 mg-3 mg/3 ml Soln] 3 ml INHALATION RT-QID 09/16/16 [History] Montelukast [Singulair] 10 mg PO HS #30 tab 09/20/16 [Rx] Budesonide-Formot 160-4.5 Mcg [Symbicort 160-4.5 Mcg Inhaler] 2 puff INHALATION RT-BID PRN 10/05/16 [History] Cholecalciferol [Vitamin D3 (25 Mcg = 1000 Iu)] 5,000 unit PO BID 07/18/17 [History] Cyanocobalamin (Vitamin B-12) [Vitamin B-12] 1,000 mcg PO BID 07/18/17 [History] Dapagliflozin Propanediol [Farxiga] 5 mg PO DAILY 07/18/17 [History] Losartan [Cozaar] 50 mg PO QAM 07/18/17 [History] Acetaminophen [Tylenol Extra Strength] 500 mg PO Q6HR PRN 07/20/17 [History] ALPRAZolam [Xanax] 0.25 mg PO Q4HR PRN tab 02/01/18 [Rx] Pregabalin [Lyrica] 150 mg PO BID cap 02/01/18 [Rx] Liraglutide [Victoza 2-Orlin] 1.8 mg SQ DAILY 12/26/18 [History] Apixaban [Eliquis] 5 mg PO BID tab 12/27/18 [Rx] Azithromycin [Zithromax] 500 mg PO DAILY@1800 #3 tab 12/28/18 [Rx] Furosemide [Lasix] 40 mg PO DAILY #30 tab 12/28/18 [Rx] Nicotine 21Mg/24Hr Patch [Habitrol] 1 patch TRANSDERM DAILY #14 patch 12/28/18 [Rx] guaiFENesin [Mucinex] 1,200 mg PO Q12HR #30 tablet.er 10/05/19 [Rx] metFORMIN HCL [Glucophage] 1,000 mg PO BID #60 tab 12/28/18 [Rx] predniSONE 10 mg PO DAILY #30 tab 12/28/18 [Rx] Follow up Appointment(s)/Referral(s): [facility] [place], [NON-STAFF] - 1-2 Days He Giraldo MD [Primary Care Provider] - 1-2 days Trish Gupta MD [STAFF PHYSICIAN] - 2 Weeks Discharge Disposition: HOME SELF-CARE
[2018-12-29] MEDS ORDERED: FUROSEMIDE 40 MG TAB PO SCH ×2 (06:00→09:00)
== END 2018-12-28 14:31 | disposition home or self-care (01) ==
LOC: EC 17:06 → 1SOBS 19:39
PROVIDERS: ADMIT Hospitalist; ATTEND Hospitalist
DX: J44.1 Chronic obstructive pulmonary disease with (acute) exacerbation (principal); J44.0 Chronic obstructive pulmonary disease with (acute) lower respiratory infection; J20.9 Acute bronchitis, unspecified; I11.0 Hypertensive heart disease with heart failure; I50.33 Acute on chronic diastolic (congestive) heart failure; I49.5 Sick sinus syndrome; I34.0 Nonrheumatic mitral (valve) insufficiency; I48.19 Other persistent atrial fibrillation; M19.91 Primary osteoarthritis, unspecified site; I25.10 Atherosclerotic heart disease of native coronary artery without angina pectoris; E11.42 Type 2 diabetes mellitus with diabetic polyneuropathy; E11.51 Type 2 diabetes mellitus with diabetic peripheral angiopathy without gangrene; E11.65 Type 2 diabetes mellitus with hyperglycemia; E11.621 Type 2 diabetes mellitus with foot ulcer; L97.529 Non-pressure chronic ulcer of other part of left foot with unspecified severity; E78.5 Hyperlipidemia, unspecified; G50.0 Trigeminal neuralgia; E66.9 Obesity, unspecified; Z68.28 Body mass index [BMI] 28.0-28.9, adult; L71.9 Rosacea, unspecified; F41.9 Anxiety disorder, unspecified; F17.210 Nicotine dependence, cigarettes, uncomplicated; Z79.02 Long term (current) use of antithrombotics/antiplatelets; Z79.51 Long term (current) use of inhaled steroids; Z79.01 Long term (current) use of anticoagulants; Z79.84 Long term (current) use of oral hypoglycemic drugs; Z79.899 Other long term (current) drug therapy; Z88.5 Allergy status to narcotic agent; Z88.8 Allergy status to other drugs, medicaments and biological substances; I25.2 Old myocardial infarction; Z95.5 Presence of coronary angioplasty implant and graft; Z90.49 Acquired absence of other specified parts of digestive tract; Z90.710 Acquired absence of both cervix and uterus; Z95.820 Peripheral vascular angioplasty status with implants and grafts; Z95.0 Presence of cardiac pacemaker; Z82.49 Family history of ischemic heart disease and other diseases of the circulatory system; Z83.3 Family history of diabetes mellitus; Z82.3 Family history of stroke
CPT/HCPCS: 96375 ×2; 96376 ×2; 96365; 96366; 99285; 36415; 94640 ×6; 94760; 93005; 93306; 83880; 80053; 80048; 83735; 84484; 85025; 85610; 85730; 87040; 71046 ×2; G0378 ×3; S4990 ×2; J2060; J1940 ×3; J2930 ×3; J0456

== ENCOUNTER 2019-01-10 12:34 | Inpatient (IN) | payer MEDICARE, OTHER ==
[2019-01-10] MEDS ORDERED: VANCOMYCIN IV PER PHARMACY 1 EACH MISC MISCELLANE PRN (13:32)
[2019-01-10] MEDS ORDERED: PIPERACILLIN-TAZOBACTAM 3.375 GM in SODIUM CHLORIDE 0.9% 100 ML IVPB STA (13:32)
--- NOTE | 2019-01-10 13:33 | ED ---
General Adult HPI - General Chief complaint: Skin/Abscess/Foreign Body Stated complaint: left foot baby toe infection Time Seen by Provider: 01/10/19 13:00 Source: patient Mode of arrival: wheelchair Limitations: no limitations - History of Present Illness Initial comments: Dictation was produced using [employer] dictation software. please excuse any grammatical, word or spelling errors. Chief Complaint: 78-year-old female past medical history atrial fibrillation, peripheral vascular disease today with instruction from librarian assistant come to the emergency department for admission. History of Present Illness: Patient is a 70-year-old female over the last several days she's been having worsening wounds to the left foot specifically at the toes. Patient has been having chronic care by wound center staff. Patient has been having chronic wounds to the toes on the left foot. She noted that today this morning her toes increasingly more painful and turn black acutely. She was seen at the wound care center earlier today. Patient follows up with Dr. Rose of podiatry. He saw her today in the wound care clinic told to come to the emergency department for likely amputation and antibiotics. She states she's been having increasing pain over the toes of the left foot over the last several days. Only this morning that she noted was black. Patient denies any constitutional symptoms. The ROS documented in this emergency department record has been reviewed and confirmed by me. Those systems with pertinent positive or negative responses have been documented in the HPI. All other systems are other negative and/or noncontributory. PHYSICAL EXAM: General Impression: Alert and oriented x3, not in acute distress HEENT: Normocephalic atraumatic, extra-ocular movements intact, pupils equal and reactive to light bilaterally, mucous membranes moist. Cardiovascular: Heart regular rate and rhythm, S1&S2 audible, no murmurs, rubs or gallops Chest: Lungs clear to auscultation bilaterally, no rhonchi, no wheeze, no rales Abdomen: Bowel sounds present, abdomen soft, non-tender, non-distended, no organomegaly Musculoskeletal: Pulses present and equal in all extremities, no peripheral edema Left foot: Scabbing, erythema to all of the toes of the left foot with wound to the first toe, fourth and fifth toe with Blacks given discoloration to the fifth toe. Motor: no focal deficits noted Neurological: CN II-XII grossly intact, no focal motor or sensory deficits noted Skin: Intact with no visualized rashes Psych: Normal affect and mood ED course: 78-year-old female sent in by librarian assistant from wound clinic for a ntibiotics and possible toe amputation. As upon arrival are within acceptable limits. Rest of physical examination is benign. Wound does not probe to the bone. There is no clinical suspicion of osteomyelitis at this time. X-ray will be ordered. She started on vancomycin and Zosyn.After evaluation obtained. Mild laxatives 11.4. ESR and CRP are negative. Metabolic panel is unremarkable. Chest x-ray and foot x-ray are obtained. Chest x-ray is nonacute. Foot x-ray shows stable exam. This patient case with Dr. Medina who is willing to accept patients care. Podiatry consult. Dr. Medina requested we contact vascular surgery for peripheral Infection Disease Consult EKG interpretation: Ventricular rate 64, H or for ablation, care is 82, QTc 44. . EKG compared to 12/26/2018 showing no changes. Overall, this EKG is unremarkable - Related Data Home Medications Medication Instructions Recorded Confirmed ALPRAZolam [Xanax] 0.25 mg PO HS 09/16/16 01/10/19 Ipratropium-Albuterol Nebulize 3 ml INHALATION RT-QID 09/16/16 01/10/19 [Duoneb 0.5 mg-3 mg/3 ml Soln] Budesonide-Formot 160-4.5 Mcg 2 puff INHALATION RT-BID PRN 10/05/16 01/10/19 [Symbicort 160-4.5 Mcg Inhaler] Cholecalciferol [Vitamin D3 (25 5,000 unit PO BID 07/18/17 01/10/19 Mcg = 1000 Iu)] Cyanocobalamin (Vitamin B-12) 1,000 mcg PO BID 07/18/17 01/10/19 [Vitamin B-12] Dapagliflozin Propanediol [Farxiga] 5 mg PO DAILY 07/18/17 01/10/19 Losartan [Cozaar] 50 mg PO QAM 07/18/17 01/10/19 Acetaminophen [Tylenol Extra 500 mg PO Q6HR PRN 07/20/17 01/10/19 Strength] Liraglutide [Victoza 2-Orlin] 1.8 mg SQ HS 12/26/18 01/10/19 Clopidogrel [Plavix] 75 mg PO DAILY 01/10/19 01/10/19 Furosemide [Lasix] 20 mg PO DAILY 01/10/19 01/10/19 OXcarbazepine [Trileptal] 300 mg PO BID 01/10/19 01/10/19 Rosuvastatin [Crestor] 20 mg PO HS 01/10/19 01/10/19 metFORMIN HCL [metFORMIN HCL ER] 750 mg PO BID 01/10/19 01/10/19 Previous Rx's Medication Instructions Recorded Montelukast [Singulair] 10 mg PO HS #30 tab 09/20/16 Pregabalin [Lyrica] 150 mg PO BID cap 02/01/18 Apixaban [Eliquis] 5 mg PO BID tab 12/27/18 guaiFENesin [Mucinex] 1,200 mg PO Q12HR #30 tablet.er 12/28/18 Allergies Allergy/AdvReac Type Severity Reaction Status Date / Time codeine AdvReac Nausea & Verified 01/10/19 14:34 Vomiting sitagliptin [From Janumet] AdvReac frequent Verified 01/10/19 14:34 UTI Review of Systems ROS Statement: Those systems with pertinent positive or pertinent negative responses have been documented in the HPI. ROS Other: All systems not noted in ROS Statement are negative. Past Medical History Past Medical History: Diabetes Mellitus, Myocardial Infarction ([place]) Additional Past Medical History / Comment(s): Leg pain, Trigeminal Neuralgia, Diabetic Neuropathy, [place] 1994, ROSCACEA Last Myocardial Infarction Date:: 1994 History of Any Multi-Drug Resistant Organisms: None Reported Past Surgical History: Appendectomy, Cholecystectomy, Heart Catheterization With Stent, Hysterectomy, Orthopedic Surgery, Pacemaker Additional Past Surgical History / Comment(s): Arthrectomy rt leg, Angioplasty, Pacemaker August 2016, left Foot Surgery, one heart stent Past Anesthesia/Blood Transfusion Reactions: No Reported Reaction Date of Last Stent Placement:: 1994 Type of Cardiac Device: Permanent Pacemaker Device Placement Date:: August 2016 Past Psychological History: No Psychological Hx Reported Smoking Status: Current every day smoker Past Alcohol Use History: None Reported Past Drug Use History: None Reported - Past Family History Father Family Medical History: Myocardial Infarction ([place]) Mother Family Medical History: Congestive Heart Failure (CHF), CVA/TIA, Diabetes Mellitus General Exam Limitations: no limitations Course Vital Signs 01/10/19 12:50 Temperature 98.1 F Pulse Rate 77 Respiratory 18 Rate Blood Pressure 134/82 O2 Sat by Pulse 95 Oximetry Medical Decision Making - Lab Data Result diagrams: 01/10/19 13:32 01/10/19 13:32 Lab Results 01/10/19 01/10/19 Range/Units 13:32 13:32 WBC 11.4 H (3.8-10.6) k/uL RBC 4.86 (3.80-5.40) m/uL Hgb 14.2 (11.4-16.0) gm/dL Hct 45.0 (34.0-46.0) % MCV 92.6 (80.0-100.0) fL MCH 29.3 (25.0-35.0) pg MCHC 31.6 (31.0-37.0) g/dL RDW 15.5 (11.5-15.5) % Plt Count 257 (150-450) k/uL Neutrophils % 71 % Lymphocytes % 20 % Monocytes % 6 % Eosinophils % 0 % Basophils % 0 % Neutrophils # 8.2 H (1.3-7.7) k/uL Lymphocytes # 2.3 (1.0-4.8) k/uL Monocytes # 0.6 (0-1.0) k/uL Eosinophils # 0.1 (0-0.7) k/uL Basophils # 0.0 (0-0.2) k/uL Hypochromasia Slight ESR 5 (0-20) mm/hr Sodium 142 (137-145) mmol/L Potassium 4.3 (3.5-5.1) mmol/L Chloride 107 (98-107) mmol/L Carbon Dioxide 27 (22-30) mmol/L Anion Gap 8 mmol/L BUN 30 H (7-17) mg/dL Creatinine 0.71 (0.52-1.04) mg/dL Est GFR (CKD-EPI)AfAm >90 (>60 ml/min/1.73 sqM) Est GFR (CKD-EPI)NonAf 82 (>60 ml/min/1.73 sqM) Glucose 243 H (74-99) mg/dL Calcium 9.7 (8.4-10.2) mg/dL C-Reactive Protein 7.9 (<10.0) mg/L Disposition Clinical Impression: Toe infection Disposition: ADMITTED IP TO THIS HOSP Condition: Fair Referrals: He Giraldo MD [Primary Care Provider] - 1-2 days Decision Time: 14:57
[2019-01-10 13:48] LABS: Basophils % (A) 0 %; Eosinophils # (A) 0.1 k/uL (0-0.7); Eosinophils % (A) 0 %; HGB 14.2 gm/dL (11.4-16.0); Hypochromasia Slight; Lymphocytes # (A) 2.3 k/uL (1.0-4.8); Lymphocytes % (A) 20 %; MCH 29.3 pg (25.0-35.0); MCHC 31.6 g/dL (31.0-37.0); MCV 92.6 fL (80.0-100.0); Mean Platelet Volume 6.8; Monocytes # (A) 0.6 k/uL (0-1.0); Monocytes % (A) 6 %; Neutrophils # (A) 8.2 k/uL (1.3-7.7); Neutrophils % (A) 71 %; Platelet Count 257 k/uL (150-450); RBC 4.86 m/uL (3.80-5.40); RDW 15.5 % (11.5-15.5); WBC 11.4 k/uL (3.8-10.6)
[2019-01-10 13:58] LABS: African American GFR (CKD) >90 (>60 ml/min/1.73 sqM); Anion Gap 8 mmol/L; Blood Urea Nitrogen 30 mg/dL (7-17); C Reactive Protein 7.9 mg/L (<10.0); Calcium 9.7 mg/dL (8.4-10.2); Carbon Dioxide 27 mmol/L (22-30); Chloride 107 mmol/L (98-107); Glucose 243 mg/dL (74-99); Potassium 4.3 mmol/L (3.5-5.1); Sodium 142 mmol/L (137-145)
[2019-01-10] MEDS ORDERED: VANCOMYCIN 1,500 MG in SODIUM CHLORIDE 0.9% 250 ML IVPB ONE (14:00)
--- NOTE | 2019-01-10 14:03 | XR ---
Left foot HISTORY: Fifth digit infection 3 views of the left foot, comparison to prior exam 11/08/2018 Bone mineralization is reduced. Alignment is maintained. Some loss of joint space at the interphalang eal joints compatible with mild arthropathy. There is no periostitis to suggest osteomyelitis. Athero sclerotic vascular calcifications are again noted. IMPRESSION: Stable exam. Low bone mineralization could limit sensitivity, bone scan could be performe d for increased sensitivity as indicated.
--- NOTE | 2019-01-10 14:03 | XR ---
EXAMINATION TYPE: XR chest 1V portable DATE OF EXAM: 01/10/2019 COMPARISON: NONE HISTORY: Chest pain TECHNIQUE: Single frontal view of the chest is obtained. FINDINGS: There is no focal air space opacity, pleural effusion, or pneumothorax seen. Minimal bibas ilar atelectasis near the costophrenic angles. This is horizontally oriented platelike. Chronic inter stitial prominence throughout. The cardiac silhouette size is enlarged with single lead left-sided ca rdiac device. The osseous structures are intact. IMPRESSION: Minimal bibasilar subsegmental atelectasis. No other acute cardiopulmonary process.
[2019-01-10 14:30] LABS: Erythrocyte Sedimentation Rate 5 mm/hr (0-20)
[2019-01-10] MEDS ORDERED: NALOXONE 0.4 MG/ML 1 ML VIAL IV PRN (14:55)
[2019-01-10] MEDS: SODIUM CHLORIDE 0.9% 1,000 ML IV SCH (17:07)
[2019-01-10] MEDS: ACETAMINOPHEN TAB 325 MG TAB PO PRN (18:46)
[2019-01-10 20:43] LABS: Glucose,Whole Blood 338 mg/dL (75-99)
[2019-01-10] MEDS: MONTELUKAST 10 MG TAB PO SCH (22:35)
[2019-01-10] MEDS: metFORMIN 500 MG TAB PO SCH (22:35)
[2019-01-10] MEDS: ALPRAZolam 0.25 MG TAB PO SCH (22:35)
[2019-01-10] MEDS: KETOROLAC 30 MG/ML 1 ML VIAL IVP PRN (23:02)
[2019-01-11] MEDS ORDERED: VANCOMYCIN 1,500 MG in SODIUM CHLORIDE 0.9% 250 ML IVPB SCH (07:00)
[2019-01-11 07:30] LABS: Glucose,Whole Blood 221 mg/dL (75-99)
[2019-01-11] MEDS: IPRATROPIUM-ALBUTEROL 3 ML NEB INHALATION SCH ×4 (08:41→20:46)
[2019-01-11] MEDS: INSULIN ASPART (NovoLOG) 100 UNIT/ML VIAL SQ SCH ×4 (09:33→20:51)
[2019-01-11] MEDS: CHOLECALCIFEROL 1,000 UNIT TAB PO SCH ×2 (11:24→20:50)
[2019-01-11] MEDS: ACETAMINOPHEN TAB 325 MG TAB PO PRN (11:24)
[2019-01-11] MEDS: CYANOCOBALAMIN 500 MCG TAB PO SCH ×2 (11:25→20:51)
[2019-01-11] MEDS: FUROSEMIDE 20 MG TAB PO SCH (11:26)
[2019-01-11] MEDS: metFORMIN 500 MG TAB PO SCH (11:26)
[2019-01-11] MEDS: APIXABAN 5 MG TAB PO SCH ×2 (11:26→20:50)
[2019-01-11] MEDS: guaiFENesin 600 MG TABLET.ER PO SCH ×2 (11:26→20:50)
[2019-01-11] MEDS: PREGABALIN 75 MG CAP PO SCH ×2 (11:30→20:50)
[2019-01-11] MEDS: LOSARTAN 50 MG TAB PO SCH (11:31)
[2019-01-11] MEDS: CLOPIDOGREL 75 MG TAB PO SCH (11:33)
[2019-01-11] MEDS: OXcarbazepine 300 MG TAB PO SCH ×2 (11:34→21:24)
[2019-01-11] MEDS: DAPAGLIFLOZIN PROPANEDIOL 5 MG PO SCH (11:35)
[2019-01-11 11:48] LABS: Glucose,Whole Blood 157 mg/dL (75-99)
[2019-01-11] MEDS ORDERED: INSULIN ASPART (NovoLOG) 100 UNIT/ML VIAL SQ SCH (12:30)
--- NOTE | 2019-01-11 13:09 | P.CON ---
Consult Note - . Consult date: 01/11/19 Assessment/Plan:: Patient is a 78-year-old female who was being followed in the wound care clinic presented with ischemic changes of the medial aspect of her left great toe. The patient has a well-established history of peripheral vascular disease having undergone both iliac and femoral percutaneous intervention. The last intervention on the left lower extremity was approximately 1.5 years ago. At that time completion angiogram demonstrated a patent SFA and popliteal system with single-vessel runoff via the peroneal artery. The patient has been followed by Dr. Aguilera in the office since then, last office visit approximately 3 months prior. Currently the patient is denying any ischemic rest pain type symptoms. My evaluation today revealed a femoral pulse being noted bilaterally and a popliteal pulse to be noted on the right. The left popliteal DP, and PT pulses are absent. Essentially dry ischemic changes are noted of the lateral aspect of the left great toe. Foot is nontender to palpation. There is no leg edema. There is no pedal edema. I have taken the liberty of ordering a CT angiogram of the lower extremities. Further recommendations were made once CT angiogram has been completed. Further workup can be continued as an outpatient from a vascular surgical standpoint.
[2019-01-11] MEDS ORDERED: RX INFO: IV CONTRAST WAS GIVEN 1 EACH MISC MISCELLANE PRN (13:12)
--- NOTE | 2019-01-11 15:50 | P.HPIM ---
History of Present Illness H&P Date: 01/11/19 Chief Complaint: Foot ulcer History of presenting complaint: This is a 78-year-old patient of Dr. Giraldo. Chronic stable medical conditions include coronary artery disease with stent, osteoarthritis, diabetic peripheral neuropathy, rosacea. Patient long-standing smoker. Patient has chronic wounds on the toes of the left foot. She does follow at the wound care center. Was followed by Dr. Rose from podiatry. Recently the been increasing more. The toes. And the left small toe started to talk plaque.. She was told to come down to the hospital. No fever and chills. Patient does have chronic pain in the toes. Some acute flareup of pain. There is no drainage. Patient the past has followed both with Dr. Andrews from vascular and Dr. Aguilera. Patient had a long-standing smoker. Patient is also had vascular studies done in the past.. Review of systems: GEN.: Tired EYES: None HEENT: None NECK: None RESPIRATORY: As above CARDIOVASCULAR: As above GASTROINTESTINAL: Non- GENITOURINARY: None MUSCULOSKELETAL: . Left foot pain LYMPHATICS: None HEMATOLOGICAL: None PSYCHIATRY: None NEUROLOGICAL: Peripheral neuropathy Social history: Lives alone. Smokes a pack a day for close to 65 years. Tried to cut back on cigarettes No alcohol. Physical examination: VITAL SIGNS: 98.1, 77, 18, 134/82, 95% room air GENERAL: BMI 28, laying in bed, EYES: Pupils equal. Conjunctiva normal. HEENT: External appearance of nose and ears normal, oral cavity grossly normal. NECK: JVD not raised; masses not palpable. HEART: Irregular heart sounds, minimal edema. LUNGS: Respiratory rate increased, diminished breath sounds on expiration some wheezing. ABDOMEN: Soft, nontender, liver spleen not palpable, no masses palpable. PSYCH: Alert and oriented x3; mood and affect normal. NEUROLOGICAL: Cranial nerves grossly intact; no facial asymmetry, power and sensation grossly intact. LYMPHATICS: No lymph nodes palpable in the axilla and neck EXTREMITY: Noted dry gangrenous changes of the left small toe and ischemic changes in the other toes, especially the second toe INVESTIGATIONS, reviewed in the clinical context: White count 11.4 hemoglobin 14.2 progression 4.3 creatinine 0.71 Blood glucose 243, Accu-Chek 338, 221 Assessment: -Acute on chronic flareup of ulcers resulting from poor circulation in the left foot with changes of early gangrene in the left small toe. No obvious evidence of any infection. Patient has poor distal pulses. Patient had extensive workup in the past including restless studies. -Chronic nicotine dependence patient active cigarette smoker -Persistent atrial fibrillation chronically and eliquis -Coronary artery disease a prior history of stent -Primary osteoarthritis -Diabetic peripheral neuropathy -COPD in a current smoker Plan: Vascular surgery was consulted from the ER. Did discuss with Dr. Wilcox. His ordering a CT angiogram. It was decided there is no acute infection and what we can hold off antibiotics.. This was discussed with the patient. Hoping patient can be discharged home tomorrow. And follow-up with his vascular surgeon. Past Medical History Past Medical History: Heart Failure, Diabetes Mellitus, Myocardial Infarction ([place]) Additional Past Medical History / Comment(s): Leg pain, Trigeminal Neuralgia, Diabetic Neuropathy, [place] 1994, ROSCACEA Last Myocardial Infarction Date:: 1994 History of Any Multi-Drug Resistant Organisms: None Reported Past Surgical History: Appendectomy, Cholecystectomy, Heart Catheterization With Stent, Hysterectomy, Orthopedic Surgery, Pacemaker Additional Past Surgical History / Comment(s): Arthrectomy rt leg, Angioplasty, Pacemaker August 2016, left Foot Surgery, one heart stent Past Anesthesia/Blood Transfusion Reactions: No Reported Reaction Date of Last Stent Placement:: 1994 Type of Cardiac Device: Permanent Pacemaker Device Placement Date:: August 2016 Past Psychological History: No Psychological Hx Reported Smoking Status: Current some day smoker Past Alcohol Use History: None Reported Additional Past Alcohol Use History / Comment(s): smokes about 4 cigarettes per day Past Drug Use History: None Reported - Past Family History Father Family Medical History: Myocardial Infarction ([place]) Mother Family Medical History: Congestive Heart Failure (CHF), CVA/TIA, Diabetes Mellitus Medications and Allergies Home Medications Medication Instructions Recorded Confirmed Type ALPRAZolam [Xanax] 0.25 mg PO HS 09/16/16 01/10/19 History Ipratropium-Albuterol Nebulize 3 ml INHALATION RT-QID 09/16/16 01/10/19 History [Duoneb 0.5 mg-3 mg/3 ml Soln] Montelukast [Singulair] 10 mg PO HS #30 tab 09/20/16 01/10/19 Rx Budesonide-Formot 160-4.5 Mcg 2 puff INHALATION RT-BID PRN 10/05/16 01/10/19 History [Symbicort 160-4.5 Mcg Inhaler] Cholecalciferol [Vitamin D3 (25 5,000 unit PO BID 07/18/17 01/10/19 History Mcg = 1000 Iu)] Cyanocobalamin (Vitamin B-12) 1,000 mcg PO BID 07/18/17 01/10/19 History [Vitamin B-12] Dapagliflozin Propanediol [Farxiga] 5 mg PO DAILY 07/18/17 01/10/19 History Losartan [Cozaar] 50 mg PO QAM 07/18/17 01/10/19 History Acetaminophen [Tylenol Extra 500 mg PO Q6HR PRN 07/20/17 01/10/19 History Strength] Pregabalin [Lyrica] 150 mg PO BID cap 02/01/18 01/10/19 Rx Liraglutide [Victoza 2-Orlin] 1.8 mg SQ HS 12/26/18 01/10/19 History Apixaban [Eliquis] 5 mg PO BID tab 12/27/18 01/10/19 Rx guaiFENesin [Mucinex] 1,200 mg PO Q12HR #30 tablet.er 12/28/18 01/10/19 Rx Clopidogrel [Plavix] 75 mg PO DAILY 01/10/19 01/10/19 History Furosemide [Lasix] 20 mg PO DAILY 01/10/19 01/10/19 History OXcarbazepine [Trileptal] 300 mg PO BID 01/10/19 01/10/19 History Rosuvastatin [Crestor] 20 mg PO HS 01/10/19 01/10/19 History metFORMIN HCL [metFORMIN HCL ER] 750 mg PO BID 01/10/19 01/10/19 History Allergies Allergy/AdvReac Type Severity Reaction Status Date / Time codeine AdvReac Nausea & Verified 01/10/19 14:34 Vomiting sitagliptin [From ] AdvReac frequent Verified 01/10/19 14:34 UTI Physical Exam Vitals: Vital Signs Temp Pulse Pulse Resp BP BP Pulse Ox 01/11/19 07:00 98.1 F 65 18 111/67 95 01/11/19 00:45 98.2 F 63 18 110/67 95 01/10/19 20:25 98.5 F 69 14 132/74 92 L 01/10/19 16:05 68 18 127/73 97 01/10/19 12:50 98.1 F 77 18 134/82 95 Intake and Output 01/10/19 01/11/19 01/11/19 22:59 06:59 14:59 Intake Total 200 Balance 200 Intake: Amount of Fluid Infused ( 200 ml) Other: # Voids 1 Results CBC & Chem 7: 01/10/19 13:32 01/10/19 13:32 Labs: Abnormal Lab Results - Last 24 Hours (Table) 01/10/19 01/10/19 01/10/19 Range/Units 13:32 13:32 20:31 WBC 11.4 H (3.8-10.6) k/uL Neutrophils # 8.2 H (1.3-7.7) k/uL BUN 30 H (7-17) mg/dL Glucose 243 H (74-99) mg/dL POC Glucose (mg/dL) 338 H (75-99) mg/dL 01/11/19 Range/Units 07:09 WBC (3.8-10.6) k/uL Neutrophils # (1.3-7.7) k/uL BUN (7-17) mg/dL Glucose (74-99) mg/dL POC Glucose (mg/dL) 221 H (75-99) mg/dL Thrombosis Risk Factor Assmnt - Choose All That Apply Any of the Below Risk Factors Present?: Yes Each Factor Represents 1 point: Obesity (BMI >25) Other Risk Factors: Yes Each Risk Factor Represents 3 Points: Age 75 years or older Thrombosis Risk Factor Assessment Total Risk Factor Score: 4 Thrombosis Risk Factor Assessment Level: Moderate Risk
[2019-01-11 16:54] LABS: Glucose,Whole Blood 139 mg/dL (75-99)
--- NOTE | 2019-01-11 17:55 | CT ---
EXAMINATION TYPE: CT angio lower extremity LT DATE OF EXAM: 01/11/2019 COMPARISON: HISTORY: Femoral occlusion. Pt c/o issues w/ LT toes. Pt diabetic. CT DLP: 693 mGycm Automated exposure control for dose reduction was used. CONTRAST: Performed with IV Contrast, patient injected with 100 mL of Isovue 370. FINDINGS: Multiple axial sections were obtained from the level of the iliac crest to the bottom of the toes wit h intravenous contrast. There are 3-D post processed images. There is atherosclerotic calcification in the lower abdominal aorta. There is right common iliac juan francisco ry stent. There is significant luminal narrowing of the proximal right external iliac artery. There i s bilateral arterial flow in the common iliac arteries and the internal and external iliac arteries. There is significant stenosis at the origins of both internal iliac arteries of more than 75%. There is arterial flow in both femoral arteries and the profunda femoris artery. There is complete oc clusion of the distal left femoral artery with collateral vessels. There is very limited contrast opa cification of the left popliteal artery. There is collateral vessels filling the left tibial artery. There is diminished contrast density in the branches of the left tibial artery. There is arterial marina w in the left peroneal artery and the left anterior tibial artery down to the ankle. There is no sign ificant flow seen in the left posterior tibial artery at the ankle. On the right side there is patency of the popliteal artery and the tibial artery trifurcation. There is multisegmental stenosis of the right peroneal artery. There is a diminutive right posterior tibial artery and very little flow at the ankle. There is arterial flow in the right anterior tibial artery down to the ankle. IMPRESSION: THERE IS COMPLETE OCCLUSION LEFT DISTAL FEMORAL ARTERY WITH COLLATERAL VESSELS AND DIMINISHED DISTAL ARTERIAL FLOW BELOW THE KNEE. THERE IS ABSENT FLOW IN THE LEFT POSTERIOR TIBIAL ARTERY. THERE IS DIMI NISHED ARTERIAL FLOW IN THE LEFT ANTERIOR TIBIAL ARTERY AND THE PERONEAL ARTERY. ON THE RIGHT SIDE THERE IS VERY LITTLE FLOW IN THE RIGHT POSTERIOR TIBIAL ARTERY. THERE IS DIMINISHED ARTERIAL FLOW IN THE RIGHT PERONEAL AND RIGHT ANTERIOR TIBIAL ARTERY AT THE ANKLE. THERE IS HEMODYNAMIC STENOSIS AT THE ORIGINS OF THE INTERNAL ILIAC ARTERIES AND THE PROXIMAL RIGHT EX TERNAL ILIAC ARTERY.
[2019-01-11 20:44] LABS: Glucose,Whole Blood 380 mg/dL (75-99)
[2019-01-11] MEDS: SODIUM CHLORIDE 0.9% 1,000 ML IV SCH (20:44)
[2019-01-11] MEDS: ALPRAZolam 0.25 MG TAB PO SCH (20:49)
[2019-01-11] MEDS: ATORVASTATIN 40 MG TAB PO SCH (20:50)
[2019-01-11] MEDS: SYMBICORT 160-4.5 MCG INHALER INHALATION PRN (20:50)
[2019-01-11] MEDS: MONTELUKAST 10 MG TAB PO SCH (20:50)
[2019-01-11] MEDS: NON FORMULARY DRUG (Liraglutide [Victoza 2-Pak] 1.8 MG) SQ SCH (20:52)
[2019-01-11] MEDS: KETOROLAC 30 MG/ML 1 ML VIAL IVP PRN (21:52)
--- NOTE | 2019-01-11 23:19 | P.CONS ---
History of Present Illness - Reason for Consult Consult date: 01/11/19 - Chief Complaint Wound left foot fifth toe - History of Present Illness Pleasant 78-year-old female with known history of severe peripheral vascular disease with prior interventions into her left lower extremity with arthrectomy and stent placement in the past. Relates that she's been following with her cow buyer at the wound healing Center and was having some improvement of the great toe ulceration of the left foot. She however developed the sudden onset of swelling dark discoloration and some drainage the fifth toe. She was very concerned because they presented to her cow buyer, with the acute change she was brought in the hospital. She's been seen by her vascular surgery team and there is plans for CT angiography to evaluate the acuity changes the left lower extremity. Concerns are 2 restenosis versus an embolic event. Patient is fortunately modestly comfortable. She relates that she smokes a few cigarettes a day and does not desire nicotine replacement therapy. She is denying fevers, chills or rigors. Review of Systems HEENT:Denies headache or acute visual change. Denies sinus or mouth discomforts. Denies neck stiffness or pain. Denies significant oral cavity pain. Denies difficulty on swallowing. Lungs: Denies significant shortness of breath, cough, sputum production, or hemoptysis. Cardiovascular: Denies significant shortness of breath, chest pain, chest wall pain, orthopnea, dyspnea on exertion, syncope Gastrointestinal:Denies nausea, vomiting, diarrhea, constipation, hematemesis, melena, hematochezia. No no significant change of bowel habit noticed. Musculoskeletal: denies significant myalgias or arthralgias. No new joint swelling. Denies new back pain. Skin: New onset lesion to the left foot fifth toe chronic ulcer great toe Neuro: Denies headache or visual change. Denies any new onset weakness or difficulty with ambulation. Denies falls or seizures. Psychiatric:Denies anxiety or depression. Endocrine: She is underlying lung disease and has chronic fatigue but no significant weight loss Past Medical History Past Medical History: Heart Failure, Diabetes Mellitus, Myocardial Infarction ([place]) Additional Past Medical History / Comment(s): Leg pain, Trigeminal Neuralgia, Diabetic Neuropathy, [place] 1994, ROSCACEA Last Myocardial Infarction Date:: 1994 History of Any Multi-Drug Resistant Organisms: None Reported Past Surgical History: Appendectomy, Cholecystectomy, Heart Catheterization With Stent, Hysterectomy, Orthopedic Surgery, Pacemaker Additional Past Surgical History / Comment(s): Arthrectomy rt leg, Angioplasty, Pacemaker August 2016, left Foot Surgery, one heart stent Past Anesthesia/Blood Transfusion Reactions: No Reported Reaction Date of Last Stent Placement:: 1994 Type of Cardiac Device: Permanent Pacemaker Device Placement Date:: August 2016 Past Psychological History: No Psychological Hx Reported Additional Psychological History / Comment(s): 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 No experience. No travel. No animal exposures. As related is an ongoing tobacco smoker but only a few cigarettes per day Smoking Status: Current some day smoker Past Alcohol Use History: None Reported Additional Past Alcohol Use History / Comment(s): smokes about 4 cigarettes per day Past Drug Use History: None Reported - Past Family History Father Family Medical History: Myocardial Infarction ([place]) Mother Family Medical History: Congestive Heart Failure (CHF), CVA/TIA, Diabetes Layla litus Medications and Allergies Home Medications and Allergies Comment(s): Current Medications Acetaminophen (Tylenol Tab) 650 mg PO Q6HR PRN PRN Reason: Fever and/ or Pain Last Admin: 01/11/19 11:24 Dose: 650 mg Documented by: Albuterol/Ipratropium (Duoneb 0.5 Mg-3 Mg/3 Ml Soln) 3 ml INHALATION RT-QID [facility] Last Admin: 01/11/19 20:46 Dose: 3 ml Documented by: Alprazolam (Xanax) 0.25 mg PO [facility] Last Admin: 01/11/19 20:49 Dose: 0.25 mg Documented by: Apixaban (Eliquis) 5 mg PO BID [facility] Last Admin: 01/11/19 20:50 Dose: 5 mg Documented by: Atorvastatin Calcium (Lipitor) 40 mg PO [facility] Last Admin: 01/11/19 20:50 Dose: 40 mg Documented by: Budesonide/Formoterol Fumarate (Symbicort 160-4.5 Mcg Inhaler) 2 puff INHALATION RT-BID PRN PRN Reason: Shortness Of Breath Last Admin: 01/11/19 20:50 Dose: 2 puff Documented by: Cholecalciferol (Vitamin D3 (25 Mcg = 1000 Iu)) 5,000 unit PO BID [facility] Last Admin: 01/11/19 20:50 Dose: 5,000 unit Documented by: Clopidogrel Bisulfate (Plavix) 75 mg PO DAILY [facility] Last Admin: 01/11/19 11:33 Dose: 75 mg Documented by: Cyanocobalamin (Vitamin B-12) 1,000 mcg PO BID [facility] Last Admin: 01/11/19 20:51 Dose: 1,000 mcg Documented by: Furosemide (Lasix) 20 mg PO DAILY [facility] Last Admin: 01/11/19 11:26 Dose: 20 mg Documented by: Guaifenesin (Mucinex) 1,200 mg PO Q12HR [facility] Last Admin: 01/11/19 20:50 Dose: 1,200 mg Documented by: Sodium Chloride (Saline 0.9%) 1,000 mls @ 20 mls/hr IV .Q24H [facility] Last Admin: 01/11/19 20:44 Dose: Not Given Documented by: Insulin Aspart (Novolog) 0 unit SQ [facility]; Protocol Last Admin: 01/11/19 20:51 Dose: 7 unit Documented by: Ketorolac Tromethamine (Toradol) 12.5 mg IVP Q6H PRN PRN Reason: Pain Stop: 01/16/19 00:01 Last Admin: 01/11/19 21:52 Dose: 12.5 mg Documented by: Losartan Potassium (Cozaar) 50 mg PO QAM [facility] Last Admin: 01/11/19 11:31 Dose: 50 mg Documented by: Metformin HCl (Glucophage) 750 mg PO BID [facility] Miscellaneous Information (Rx Info: Iv Contrast Was Given) 1 each MISCELLANE DAILY PRN PRN Reason: Per Protocol Stop: 01/13/19 13:12 Montelukast Sodium (Singulair) 10 mg PO [facility] Last Admin: 01/11/19 20:50 Dose: 10 mg Documented by: Naloxone HCl (Narcan) 0.2 mg IV Q2M PRN PRN Reason: Opioid Reversal Non-Formulary Medication (Dapagliflozin Propanediol [Farxiga]) 5 mg PO DAILY [facility] Last Admin: 01/11/19 11:35 Dose: Not Given Documented by: Non-Formulary Medication (Liraglutide [Victoza 2-Orlin]) 1.8 mg SQ [facility] Last Admin: 01/11/19 20:52 Dose: Not Given Documented by: Oxcarbazepine (Trileptal) 300 mg PO BID [facility] Last Admin: 01/11/19 21:24 Dose: 300 mg Documented by: Pregabalin (Lyrica) 150 mg PO BID [facility] Last Admin: 01/11/19 20:50 Dose: 150 mg Documented by: Home Medications Medication Instructions Recorded Confirmed Type ALPRAZolam [Xanax] 0.25 mg PO HS 09/16/16 01/10/19 History Ipratropium-Albuterol Nebulize 3 ml INHALATION RT-QID 09/16/16 01/10/19 History [Duoneb 0.5 mg-3 mg/3 ml Soln] Montelukast [Singulair] 10 mg PO HS #30 tab 09/20/16 01/10/19 Rx Budesonide-Formot 160-4.5 Mcg 2 puff INHALATION RT-BID PRN 10/05/16 01/10/19 History [Symbicort 160-4.5 Mcg Inhaler] Cholecalciferol [Vitamin D3 (25 5,000 unit PO BID 07/18/17 01/10/19 History Mcg = 1000 Iu)] Cyanocobalamin (Vitamin B-12) 1,000 mcg PO BID 07/18/17 01/10/19 History [Vitamin B-12] Dapagliflozin Propanediol [Farxiga] 5 mg PO DAILY 07/18/17 01/10/19 History Losartan [Cozaar] 50 mg PO QAM 07/18/17 01/10/19 History Acetaminophen [Tylenol Extra 500 mg PO Q6HR PRN 07/20/17 01/10/19 History Strength] Pregabalin [Lyrica] 150 mg PO BID cap 02/01/18 01/10/19 Rx Liraglutide [Victoza 2-Orlin] 1.8 mg SQ HS 12/26/18 01/10/19 History Apixaban [Eliquis] 5 mg PO BID tab 12/27/18 01/10/19 Rx guaiFENesin [Mucinex] 1,200 mg PO Q12HR #30 tablet.er 12/28/18 01/10/19 Rx Clopidogrel [Plavix] 75 mg PO DAILY 01/10/19 01/10/19 History Furosemide [Lasix] 20 mg PO DAILY 01/10/19 01/10/19 History OXcarbazepine [Trileptal] 300 mg PO BID 01/10/19 01/10/19 History Rosuvastatin [Crestor] 20 mg PO HS 01/10/19 01/10/19 History metFORMIN HCL [metFORMIN HCL ER] 750 mg PO BID 01/10/19 01/10/19 History Allergies Allergy/AdvReac Type Severity Reaction Status Date / Time codeine AdvReac Nausea & Verified 01/10/19 14:34 Vomiting sitagliptin [From ] AdvReac frequent Verified 01/10/19 14:34 UTI Physical Exam Vitals: Vital Signs Temp Pulse Pulse Resp BP Pulse Ox 01/11/19 21:54 98.1 F 76 16 144/77 96 01/11/19 20:54 60 01/11/19 20:46 60 01/11/19 16:27 60 01/11/19 16:20 60 01/11/19 14:49 98.0 F 64 16 110/70 95 01/11/19 07:00 98.1 F 65 18 111/67 95 01/11/19 00:45 98.2 F 63 18 110/67 95 Intake and Output 01/11/19 01/11/19 01/12/19 14:59 22:59 06:59 Intake Total 370 Balance 370 Intake: Oral 370 Other: Voiding Method Toilet Toilet # Voids 3 1 Pleasant 78-year-old woman who appears to be older than her stated age HEENT: Anicteric conjunctiva are pink and moist nasal mucosa grossly intact without significant lesions, there is no thrush. Neck: The neck is supple without significant lymphadenopathy or thyromegaly. Lungs symmetrical air entry with expiratory wheezes are noted no bronchial sounds normal dullness or egophony Heart: Irregular with a soft S4 no distinct murmur click or rub PMI nondisplaced Abdomen: Positive bowel sounds soft and nontender without palpable masses or organomegaly. There was no guarding or rebound. Extremities: The upper extremities have excellent pulses they are symmetric, no significant petechiae or telangiectasia. No splinter hemorrhages were noted. The right lower extremity is modestly well perfused with no open ulcerations. No fluctuation is evidence of the foot that is quite cool but not grossly cold. It is not ischemic. Dorsalis pedis and posterior tibialis pulses are nonpalpable. There is a chronic ulceration to the medial aspect of the great toe. The fifth toe has evidence of a dry gangrenous changes with some surrounding erythema and only minimal erythema and induration onto the dorsum of the foot. There is no inguinal lymphadenopathy and no other abnormal lymph nodes are noted Neuro: Awake alert oriented to person place and time. There are no acute new gross focal sensory motor deficits. Results CBC & Chem 7: 01/10/19 13:32 01/10/19 13:32 Labs: Abnormal Lab Results - Last 24 Hours (Table) 01/11/19 01/11/19 01/11/19 Range/Units 07:09 11:38 16:43 POC Glucose (mg/dL) 221 H 157 H 139 H (75-99) mg/dL 01/11/19 Range/Units 20:43 POC Glucose (mg/dL) 380 H (75-99) mg/dL Microbiology - Last 24 Hours (Table) 01/10/19 14:15 Blood Culture - Preliminary Blood No Growth after 24 hours Laboratory Results WBC 11.4 k/uL (3.8-10.6) H 01/10/19 13:32 RBC 4.86 m/uL (3.80-5.40) 01/10/19 13:32 Hgb 14.2 gm/dL (11.4-16.0) 01/10/19 13:32 Hct 45.0 % (34.0-46.0) 01/10/19 13:32 MCV 92.6 fL (80.0-100.0) 01/10/19 13:32 MCH 29.3 pg (25.0-35.0) 01/10/19 13:32 MCHC 31.6 g/dL (31.0-37.0) 01/10/19 13:32 RDW 15.5 % (11.5-15.5) 01/10/19 13:32 Plt Count 257 k/uL (150-450) 01/10/19 13:32 Neutrophils % 71 % 01/10/19 13:32 Lymphocytes % 20 % 01/10/19 13:32 Monocytes % 6 % 01/10/19 13:32 Eosinophils % 0 % 01/10/19 13:32 Basophils % 0 % 01/10/19 13:32 Neutrophils # 8.2 k/uL (1.3-7.7) H 01/10/19 13:32 Lymphocytes # 2.3 k/uL (1.0-4.8) 01/10/19 13:32 Monocytes # 0.6 k/uL (0-1.0) 01/10/19 13:32 Eosinophils # 0.1 k/uL (0-0.7) 01/10/19 13:32 Basophils # 0.0 k/uL (0-0.2) 01/10/19 13:32 Hypochromasia Slight 01/10/19 13:32 ESR 5 mm/hr (0-20) 01/10/19 13:32 Sodium 142 mmol/L (137-145) 01/10/19 13:32 Potassium 4.3 mmol/L (3.5-5.1) 01/10/19 13:32 Chloride 107 mmol/L (98-107) 01/10/19 13:32 Carbon Dioxide 27 mmol/L (22-30) 01/10/19 13:32 Anion Gap 8 mmol/L 01/10/19 13:32 BUN 30 mg/dL (7-17) H 01/10/19 13:32 Creatinine 0.71 mg/dL (0.52-1.04) 01/10/19 13:32 Est GFR (CKD-EPI)AfAm >90 (>60 ml/min/1.73 sqM) 01/10/19 13:32 Est GFR (CKD-EPI)NonAf 82 (>60 ml/min/1.73 sqM) 01/10/19 13:32 Glucose 243 mg/dL (74-99) H 01/10/19 13:32 POC Glucose (mg/dL) 380 mg/dL (75-99) H 01/11/19 20:43 POC Glu Tube Trailer Filler Lizy Rajan 01/11/19 20:43 Calcium 9.7 mg/dL (8.4-10.2) 01/10/19 13:32 C-Reactive Protein 7.9 mg/L (<10.0) 01/10/19 13:32 Microbiology 01/10/19 14:15 Blood Blood Culture - Preliminary No Growth after 24 hours Assessment and Plan (1) Dry gangrene Narrative/Plan: 78-year-old woman presents to hospital with the rather sudden onset of change to the left foot fifth toe. She's had a chronic ulceration to the great toe is having some improvement with her care by her cow buyer. Over she had the sudden change to the fifth toe with the discoloration and some erythema and minimal discomfort. She consequently was referred to hospital for admission. She has been seen by her vascular surgeon and CT angiography is requested to evaluate for new obstruction and possibility of embolic-type events. To the great toe silver alginate can be applied dry dressing to the fifth toe for now. Fortunately pain is not a significant issue at this time. With the diabetes and the acute change of the foot antibiotic therapy with Unasyn is added to give coverage for diabetic foot ulceration. Wound care as ordered. Offloading and elevation of the foot are also requested Current Visit: Yes Status: Acute Code(s): I96 - GANGRENE, NOT ELSEWHERE CLA SSIFIED SNOMED Code(s): 613218460 (2) Atherosclerosis of [place] arteries of extremities with rest pain, right leg Current Visit: No Status: Acute Code(s): I70.221 - ATHSCL [place] ARTERIES OF EXTREMITIES W REST PAIN, RIGHT LEG SNOMED Code(s): 177922449125039
[2019-01-12] MEDS: AMPICILLIN-SULBACTAM 3 GM in SODIUM CHLORIDE 0.9% 100 ML IVPB SCH ×4 (00:50→17:19)
[2019-01-12] MEDS: IPRATROPIUM-ALBUTEROL 3 ML NEB INHALATION SCH ×4 (07:03→20:06)
[2019-01-12] MEDS: SYMBICORT 160-4.5 MCG INHALER INHALATION PRN ×2 (07:03→20:06)
[2019-01-12] MEDS: INSULIN ASPART (NovoLOG) 100 UNIT/ML VIAL SQ SCH ×4 (07:26→21:07)
[2019-01-12 07:30] LABS: African American GFR (CKD) >90 (>60 ml/min/1.73 sqM)
[2019-01-12 07:45] LABS: Glucose,Whole Blood 198 mg/dL (75-99)
[2019-01-12] MEDS: CLOPIDOGREL 75 MG TAB PO SCH (08:27)
[2019-01-12] MEDS: guaiFENesin 600 MG TABLET.ER PO SCH ×2 (08:28→21:07)
[2019-01-12] MEDS: APIXABAN 5 MG TAB PO SCH ×2 (08:28→21:06)
[2019-01-12] MEDS: FUROSEMIDE 20 MG TAB PO SCH (08:28)
[2019-01-12] MEDS: PREGABALIN 75 MG CAP PO SCH ×2 (08:28→21:06)
[2019-01-12] MEDS: CHOLECALCIFEROL 1,000 UNIT TAB PO SCH ×2 (08:28→21:06)
[2019-01-12] MEDS: LOSARTAN 50 MG TAB PO SCH (08:29)
[2019-01-12] MEDS: OXcarbazepine 300 MG TAB PO SCH ×2 (08:29→21:28)
[2019-01-12] MEDS: CYANOCOBALAMIN 500 MCG TAB PO SCH ×2 (08:29→21:05)
[2019-01-12] MEDS: DAPAGLIFLOZIN PROPANEDIOL 5 MG PO SCH (08:33)
[2019-01-12 12:33] LABS: Glucose,Whole Blood 235 mg/dL (75-99)
[2019-01-12] MEDS: SODIUM CHLORIDE 0.9% 1,000 ML IV SCH (13:27)
[2019-01-12 14:59] VITALS: BMI 27.9
[2019-01-12] MEDS: ACETAMINOPHEN TAB 325 MG TAB PO PRN (15:29)
[2019-01-12 17:13] LABS: Glucose,Whole Blood 283 mg/dL (75-99)
[2019-01-12 19:53] LABS: Glucose,Whole Blood 335 mg/dL (75-99)
[2019-01-12] MEDS ORDERED: INSULIN DETEMIR (LEVEMIR) 100 UNIT/ML SYR SQ ONE (20:30)
[2019-01-12] MEDS: ALPRAZolam 0.25 MG TAB PO SCH (21:05)
[2019-01-12] MEDS: ATORVASTATIN 40 MG TAB PO SCH (21:06)
[2019-01-12] MEDS: MONTELUKAST 10 MG TAB PO SCH (21:06)
[2019-01-12] MEDS: NON FORMULARY DRUG (Liraglutide [Victoza 2-Pak] 1.8 MG) SQ SCH (21:07)
[2019-01-12] MEDS: KETOROLAC 30 MG/ML 1 ML VIAL IVP PRN (21:12)
--- NOTE | 2019-01-12 23:14 | P.PN ---
Progress Note - Text Progress Note Date: 01/12/19 Chief Complaint: Foot ulcer Interval history: This is a 78-year-old patient of Dr. Giraldo. Chronic stable medical conditions include coronary artery disease with stent, osteoarthritis, diabetic peripheral neuropathy, rosacea. Patient long-standing smoker. Patient has chronic wounds on the toes of the left foot. She does follow at the wound care center. Was followed by Dr. Rose from podiatry. Recently the been increasing more. The toes. And the left small toe started to talk plaque.. She was told to come down to the hospital. No fever and chills. Patient does have chronic pain in the toes. Some acute flareup of pain. There is no drainage. Patient the past has followed both with Dr. Andrews from vascular and Dr. Aguilera. Patient had a long-standing smoker. Patient is also had vascular studies done in the past.. Today-pain is much better controlled. Sitting up at the age of the bed. Seen by Dr. Kulkarni. Started on IV Unasyn. Tolerating a diet. Review of systems: Was done for constitutional, cardiovascular, GI, pulmonary. relevant finding as above Active Medications Acetaminophen (Tylenol Tab) 650 mg PO Q6HR PRN PRN Reason: Fever and/ or Pain Last Admin: 01/12/19 15:29 Dose: 650 mg Documented by: Albuterol/Ipratropium (Duoneb 0.5 Mg-3 Mg/3 Ml Soln) 3 ml INHALATION RT-QID [facility] Last Admin: 01/12/19 20:06 Dose: 3 ml Documented by: Alprazolam (Xanax) 0.25 mg PO [facility] Last Admin: 01/12/19 21:05 Dose: 0.25 mg Documented by: Apixaban (Eliquis) 5 mg PO BID [facility] Last Admin: 01/12/19 21:06 Dose: 5 mg Documented by: Atorvastatin Calcium (Lipitor) 40 mg PO [facility] Last Admin: 01/12/19 21:06 Dose: 40 mg Documented by: Budesonide/Formoterol Fumarate (Symbicort 160-4.5 Mcg Inhaler) 2 puff INHALATION RT-BID PRN PRN Reason: Shortness Of Breath Last Admin: 01/12/19 20:06 Dose: 2 puff Documented by: Cholecalciferol (Vitamin D3 (25 Mcg = 1000 Iu)) 5,000 unit PO BID [facility] Last Admin: 01/12/19 21:06 Dose: 5,000 unit Documented by: Clopidogrel Bisulfate (Plavix) 75 mg PO DAILY [facility] Last Admin: 01/12/19 08:27 Dose: 75 mg Documented by: Cyanocobalamin (Vitamin B-12) 1,000 mcg PO BID [facility] Last Admin: 01/12/19 21:05 Dose: 1,000 mcg Documented by: Furosemide (Lasix) 20 mg PO DAILY [facility] Last Admin: 01/12/19 08:28 Dose: Not Given Documented by: Guaifenesin (Mucinex) 1,200 mg PO Q12HR [facility] Last Admin: 01/12/19 21:07 Dose: 1,200 mg Documented by: Sodium Chloride (Saline 0.9%) 1,000 mls @ 20 mls/hr IV .Q24H [facility] Last Admin: 01/12/19 13:27 Dose: Not Given Documented by: Ampicillin Sodium/Sulbactam (Sodium 3 gm/ Sodium Chloride) 100 mls @ 200 mls/hr IVPB Q6HR [facility] Last Admin: 01/12/19 17:19 Dose: 200 mls/hr Documented by: Insulin Aspart (Novolog) 0 unit SQ ACHS [facility]; Protocol Last Admin: 01/12/19 21:07 Dose: 6 unit Documented by: Ketorolac Tromethamine (Toradol) 12.5 mg IVP Q6H PRN PRN Reason: Pain Stop: 01/16/19 00:01 Last Admin: 01/12/19 21:12 Dose: 12.5 mg Documented by: Losartan Potassium (Cozaar) 50 mg PO QAM [facility] Last Admin: 01/12/19 08:29 Dose: Not Given Documented by: Metformin HCl (Glucophage) 750 mg PO BID [facility] Miscellaneous Information (Rx Info: Iv Contrast Was Given) 1 each MISCELLANE DAILY PRN PRN Reason: Per Protocol Stop: 01/13/19 13:12 Montelukast Sodium (Singulair) 10 mg PO HS [facility] Last Admin: 01/12/19 21:06 Dose: 10 mg Documented by: Naloxone HCl (Narcan) 0.2 mg IV Q2M PRN PRN Reason: Opioid Reversal Non-Formulary Medication (Dapagliflozin Propanediol [Farxiga]) 5 mg PO DAILY [facility] Last Admin: 01/12/19 08:33 Dose: Not Given Documented by: Non-Formulary Medication (Liraglutide [Victoza 2-Orlin]) 1.8 mg SQ HS [facility] Last Admin: 01/12/19 21:07 Dose: Not Given Documented by: Oxcarbazepine (Trileptal) 300 mg PO BID [facility] Last Admin: 01/12/19 21:28 Dose: 300 mg Documented by: Pregabalin (Lyrica) 150 mg PO BID [facility] Last Admin: 01/12/19 21:06 Dose: 150 mg Documented by: Physical examination: VITAL SIGNS: 98.1, 65, 16, 143/76, 97% room air GENERAL: Sitting at the edge of bed, comfortable EYES: Pupils equal. Conjunctiva normal. HEENT: External appearance of nose and ears normal, oral cavity grossly normal. NECK: JVD not raised; masses not palpable. HEART: Irregular heart sounds, minimal edema. LUNGS: Respiratory rate increased, diminished breath sounds on expiration some wheezing. ABDOMEN: Soft, nontender, liver spleen not palpable, no masses palpable. PSYCH: Alert and oriented x3; mood and affect normal. EXTREMITY: Noted dry gangrenous changes of the left small toe and ischemic changes in the other toes, especially the second toe INVESTIGATIONS, reviewed in the clinical context: Accu-Cheks noted Previous testing: CT angiogram-results noted White count 11.4 hemoglobin 14.2 progression 4.3 creatinine 0.71 Blood glucose 243, Accu-Chek 338, 221 Assessment: -Acute on chronic flareup of ulcers resulting from poor circulation in the left foot with changes of early gangrene in the left small toe. No obvious evidence of any infection. Patient has poor distal pulses. Patient had extensive workup in the past including restless studies. -Chronic nicotine dependence patient active cigarette smoker -Persistent atrial fibrillation chronically and eliquis -Coronary artery disease a prior history of stent -Primary osteoarthritis -Diabetic peripheral neuropathy -COPD in a current smoker -Severe peripheral arterial disease Plan: Patient is on IV Unasyn per Dr. Kulkarni. We'll discuss with him to see patient was switched over to oral antibiotics. Per vascular surgery patient Be discharged. Discussed with the patient.
[2019-01-13] MEDS: AMPICILLIN-SULBACTAM 3 GM in SODIUM CHLORIDE 0.9% 100 ML IVPB SCH ×2 (00:43→05:32)
[2019-01-13 07:05] LABS: Glucose,Whole Blood 169 mg/dL (75-99)
[2019-01-13] MEDS: INSULIN ASPART (NovoLOG) 100 UNIT/ML VIAL SQ SCH ×2 (08:06→11:52)
[2019-01-13] MEDS: CLOPIDOGREL 75 MG TAB PO SCH (08:07)
[2019-01-13] MEDS: guaiFENesin 600 MG TABLET.ER PO SCH (08:07)
[2019-01-13] MEDS: FUROSEMIDE 20 MG TAB PO SCH (08:07)
[2019-01-13] MEDS: PREGABALIN 75 MG CAP PO SCH (08:07)
[2019-01-13] MEDS: LOSARTAN 50 MG TAB PO SCH (08:07)
[2019-01-13] MEDS: CHOLECALCIFEROL 1,000 UNIT TAB PO SCH (08:07)
[2019-01-13] MEDS: OXcarbazepine 300 MG TAB PO SCH (08:07)
[2019-01-13] MEDS: CYANOCOBALAMIN 500 MCG TAB PO SCH (08:08)
[2019-01-13] MEDS: APIXABAN 5 MG TAB PO SCH (08:08)
[2019-01-13] MEDS: IPRATROPIUM-ALBUTEROL 3 ML NEB INHALATION SCH ×2 (08:35→11:40)
[2019-01-13] MEDS: SYMBICORT 160-4.5 MCG INHALER INHALATION PRN (08:35)
[2019-01-13 08:59] VITALS: BP 122/74; PULSE 76; RESP 14; TEMP 98.7
[2019-01-13 09:26] LABS: Hemoglobin A1C 9.3 % (4.0-6.0)
--- NOTE | 2019-01-13 11:07 | CDI ---
Documentation Clarification Form Date: 01/13/2019 10:56:49 AM From: Chantell Eller RN CCDS Admit Date: 01/13/2019 8:41:00 AM Patient Name: Ariadne Ortiz Visit Number: [id number] Discharge Date: ATTENTION: The Clinical Documentation Specialists (CDI) and [facility] Coding Staff appreciate your assistance in clarifying documentation. Please respond to the clarification below the line at the bottom and electronically sign. The CDI & [facility] Coding staff will review the response and follow-up if needed. Please note: Queries are made part of the Legal Health Record. If you have any questions, please contact the author of this message via ITS. Dr. Momo Medina Heart Failure is documented in the H & P in the past medical history 01/11/2019 History/Risk Factors: 78-year-old female presents to the ED with left foot ulcers and gangrene to the left toe. Medial history DM; Heart Failure; [place] 1994; Clinical Indicators: VS/Pulse OX: 01/10/2019 134/82 77 98.1 18 95% ra Echocardiogram Results: 12/27/2018 borderline concentric left ventricular hypertrophy. Left ventricular systolic function is normal with an EF between 55- 60%. Right ventricle mildly enlarged. Chest X Ray: 01/10/2019 Minimal bibasilar subsegmental atelectasis. Home meds Lasix 20mg daily; Cozaar 50mg daily Treatment: Lasix 20mg daily; Cozaar 50mg daily In your professional opinion, can you please clarify the acuity and type of CHF if known? * Chronic Diastolic Heart Failure * Unable to Determine * Other, please specify (Last Revision: June 2017) Unable to determine MTDD
[2019-01-13] MEDS: DAPAGLIFLOZIN PROPANEDIOL 5 MG PO SCH (11:36)
[2019-01-13 11:49] LABS: Glucose,Whole Blood 348 mg/dL (75-99)
[2019-01-13] MEDS ORDERED: metFORMIN 500 MG TAB PO SCH (21:00)
--- NOTE | 2019-01-15 11:03 | P.ARTDOP ---
Arterial Doppler LOWER EXTREMITY ARTERIAL DOPPLER: DATE OF SERVICE: 01/10/2019 Reason for study: Ulcer left foot. Doppler waveforms: Multiphasic throughout on the right, somewhat blunted distally. Multiphasic at the left femoral and atypical at the popliteal. More monophasic at the ankle.. Pulse volume recording: Toe plethysmography waveforms are essentially flat line. Pressure gradients: Above the low thigh on the left and across the knee on the left. Mild gradient across the knee on the right and below the knee a larger gradient.. Ankle-brachial indices: 0.64 on the right and 0.33 on the left. Toe pressures: [] on the right, [] on the left Impression: Moderate right fem-pop disease. Moderate to severe left femoral popliteal disease. Vascular surgical consult suggested
--- NOTE | 2019-01-19 00:05 | P.DS ---
Providers Date of admission: 01/13/19 08:41 Expected date of discharge: 01/13/19 Attending physician: Momo Medina Consults: 01/10/19 14:09 Consult Physician Routine Consulting Provider: Diego Rose Consult Reason/Comments: foot Do you want consulting provider notified?: Yes 01/10/19 14:54 Consult Physician Routine Consulting Provider: Rancho Bellamy Consult Reason/Comments: pvd Do you want consulting provider notified?: Yes 01/10/19 15:21 Consult Physician Routine Consulting Provider: Herbert Kulkarni Consult Reason/Comments: infectious disease consuult Do you want consulting provider notified?: Yes Primary care physician: He Giraldo Hospital Course: Chief Complaint: Foot ulcer Hospital course: This is a 78-year-old patient of Dr. Giraldo. Chronic stable medical conditions include coronary artery disease with stent, osteoarthritis, diabetic peripheral neuropathy, rosacea. Patient long-standing smoker. Patient has chronic wounds on the toes of the left foot. She does follow at the wound care center. Was followed by Dr. Rose from podiatry. Recently having more pain. And discoloration of toes.-left small toe started to turn black. She was told to come down to the hospital. No fever and chills. Patient does have chronic pain in the toes. Some acute flareup of pain. There is no drainage. Patient in the past has followed both with Dr. Arciniega and Dr. Aguilera from vascular. Patient had been a long-standing smoker. Patient is also had vascular studies done in the past. She was seen by Dr. Kulkarni from [facility]. Started on IV Unasyn. Discussed with him on the day of discharge. Patient's wish to do Augmentin. Lower extremity CT angiogram was done. Discussed with Dr. Wilcox. Patient will follow-up with Dr. Aguilera is an outpatient. Patient also had arterial studies done by Dr. Beauchamp. No intervention in the inpatient side. Per vascular. Date of discharge care was discussed with the patient. Plan as laid out by vascular surgery and antibiotics were discussed. Discussion and discharge planning more than 35 minutes Consultation: Dr. Wilcox from vascular surgery Dr. Kulkarni from [facility] Physical examination: VITAL SIGNS: 98.7, 76, 14, 122/74, 93% room air GENERAL: Sitting up, comfortable EYES: Pupils equal. Conjunctiva normal. HEENT: External appearance of nose and ears normal, oral cavity grossly normal. NECK: JVD not raised; masses not palpable. HEART: Irregular heart sounds, minimal edema. LUNGS: Respiratory rate increased, diminished breath sounds on expiration some wheezing. ABDOMEN: Soft, nontender, liver spleen not palpable, no masses palpable. PSYCH: Alert and oriented x3; mood and affect normal. EXTREMITY: Noted dry gangrenous changes of the left small toe and ischemic changes in the other toes, especially the second toe INVESTIGATIONS, reviewed in the clinical context: Accu-Cheks noted Previous testing: CT angiogram-results noted White count 11.4 hemoglobin 14.2 progression 4.3 creatinine 0.71 Blood glucose 243, Accu-Chek 338, 221 Arterial study of the lower extremity Dr. Dr. Beauchamp Assessment: -Acute on chronic flareup of ulcers resulting from poor circulation in the left foot with changes of early gangrene in the left small toe. secondary to peripheral arterial disease -Chronic nicotine dependence patient active cigarette smoker -Persistent atrial fibrillation chronically and eliquis -Coronary artery disease a prior history of stent -Primary osteoarthritis -Diabetic peripheral neuropathy -COPD in a current smoker -Severe peripheral arterial disease Disposition: Home Patient Condition at Discharge: Fair Plan - Discharge Summary New Discharge Prescriptions: New Amoxic-Pot Clav 875-125Mg [Augmentin 875-125] 1 tab PO Q12HR #20 tablet metFORMIN HCL 1,000 mg PO BID #60 tab Continue Ipratropium-Albuterol Nebulize [Duoneb 0.5 mg-3 mg/3 ml Soln] 3 ml INHALATION RT-QID ALPRAZolam [Xanax] 0.25 mg PO HS Montelukast [Singulair] 10 mg PO HS #30 tab Budesonide-Formot 160-4.5 Mcg [Symbicort 160-4.5 Mcg Inhaler] 2 puff INHALATI ON RT-BID PRN PRN Reason: Shortness Of Breath Losartan [Cozaar] 50 mg PO QAM Cholecalciferol [Vitamin D3 (25 Mcg = 1000 Iu)] 5,000 unit PO BID Dapagliflozin Propanediol [Farxiga] 5 mg PO DAILY Cyanocobalamin (Vitamin B-12) [Vitamin B-12] 1,000 mcg PO BID Acetaminophen [Tylenol Extra Strength] 500 mg PO Q6HR PRN PRN Reason: Moderate Pain Pregabalin [Lyrica] 150 mg PO BID cap Liraglutide [Victoza 2-Orlin] 1.8 mg SQ HS Apixaban [Eliquis] 5 mg PO BID tab guaiFENesin [Mucinex] 1,200 mg PO Q12HR #30 tablet.er Furosemide [Lasix] 20 mg PO DAILY Rosuvastatin [Crestor] 20 mg PO HS OXcarbazepine [Trileptal] 300 mg PO BID Clopidogrel [Plavix] 75 mg PO DAILY Discontinued metFORMIN HCL [metFORMIN HCL ER] 750 mg PO BID Discharge Medication List ALPRAZolam [Xanax] 0.25 mg PO HS 09/16/16 [History] Ipratropium-Albuterol Nebulize [Duoneb 0.5 mg-3 mg/3 ml Soln] 3 ml INHALATION RT-QID 09/16/16 [History] Montelukast [Singulair] 10 mg PO HS #30 tab 09/20/16 [Rx] Budesonide-Formot 160-4.5 Mcg [Symbicort 160-4.5 Mcg Inhaler] 2 puff INHALATION RT-BID PRN 10/05/16 [History] Cholecalciferol [Vitamin D3 (25 Mcg = 1000 Iu)] 5,000 unit PO BID 07/18/17 [History] Cyanocobalamin (Vitamin B-12) [Vitamin B-12] 1,000 mcg PO BID 07/18/17 [History] Dapagliflozin Propanediol [Farxiga] 5 mg PO DAILY 07/18/17 [History] Losartan [Cozaar] 50 mg PO QAM 07/18/17 [History] Acetaminophen [Tylenol Extra Strength] 500 mg PO Q6HR PRN 07/20/17 [History] Pregabalin [Lyrica] 150 mg PO BID cap 02/01/18 [Rx] Liraglutide [Victoza 2-Orlin] 1.8 mg SQ HS 12/26/18 [History] Apixaban [Eliquis] 5 mg PO BID tab 12/27/18 [Rx] guaiFENesin [Mucinex] 1,200 mg PO Q12HR #30 tablet.er 12/28/18 [Rx] Clopidogrel [Plavix] 75 mg PO DAILY 01/10/19 [History] Furosemide [Lasix] 20 mg PO DAILY 01/10/19 [History] OXcarbazepine [Trileptal] 300 mg PO BID 01/10/19 [History] Rosuvastatin [Crestor] 20 mg PO HS 01/10/19 [History] Amoxic-Pot Clav 875-125Mg [Augmentin 875-125] 1 tab PO Q12HR #20 tablet 01/13/19 [Rx] metFORMIN HCL 1,000 mg PO BID #60 tab 01/13/19 [Rx] Follow up Appointment(s)/Referral(s): Diego Rose DPM [STAFF PHYSICIAN] - 01/24/19 2:00 pm Ibrahima Aguilera DO [STAFF PHYSICIAN] - 01/21/19 1:30 pm [facility], [NON-STAFF] - As Needed He Giraldo MD [Primary Care Provider] - 01/20/19 11:30 am Activity/Diet/Wound Care/Special Instructions: Make appointment with Dr. Aguilera before discharge Follow-up at [facility] with Dr. Rose Discharge Disposition: HOME SELF-CARE
--- NOTE | 2019-01-22 05:51 | CDI ---
Documentation Clarification Form Date: 01/22/2019 5:32:04 AM From: Karen Fried Phone: If you have a question about this query, please contact Mary Tolbert, Business Rules Analyst at [phone] between 8am and 5pm. Admit Date: 01/13/2019 8:41:00 AM Patient Name: Ariadne Ortiz Visit Number: [id number] Discharge Date: 01/13/2019 2:58:00 PM ATTENTION: The Clinical Documentation Specialists (CDI) and [facility] Coding Staff appreciate your assistance in clarifying documentation. Please respond to the clarification below the line at the bottom and electronically sign. The CDI & [facility] Coding staff will review the response and follow-up if needed. Please note: Queries are made part of the Legal Health Record. If you have any questions, please contact the author of this message via ITS. Dr. Momo Medina Patient with acute on chronic flareup of ulcers resulting from poor circulation in the LT foot with changes of early gangrene. Secondary to peripheral arterial disease. Patient with DM peripheral neuropathy. Please clarify if there is a link between patient's ulcer/gangrene to diabetes. History/Risk Factors: DM long time smoker chronic pain in toes Poor distal pulses Doppler/Radiology Reports: Bone mineralization is reduced. Some loss of joint space. Atherosclerotic vascular calcifications noted. Treatment: follow up with vascular surgeon Consult: CT angiogram ordered In your professional opinion, can the clarify if this diabetic patient's ulcer/ gangrene due to PAD is linked to DM? Ulceration / early gangrene associated with PAD from DM Ulceration / early gangrene due to PAD not associated with DM No related conditions Other, please specify Unable to determine Ulceration and early gangrene associated with PAD from diabetes mellitus _ MTDD
== END 2019-01-13 14:58 | disposition home or self-care (01) | DRG 300 ==
LOC: EC 12:34 → 4SSUR 15:16 → OBSVTOIN 01-13 08:41
PROVIDERS: ADMIT Hospitalist; ATTEND Hospitalist
DX: E11.52 Type 2 diabetes mellitus with diabetic peripheral angiopathy with gangrene (principal); I48.19 Other persistent atrial fibrillation; J98.11 Atelectasis; E11.621 Type 2 diabetes mellitus with foot ulcer; F17.210 Nicotine dependence, cigarettes, uncomplicated; E11.42 Type 2 diabetes mellitus with diabetic polyneuropathy; G89.29 Other chronic pain; I25.10 Atherosclerotic heart disease of native coronary artery without angina pectoris; I25.2 Old myocardial infarction; I50.9 Heart failure, unspecified; I70.221 Atherosclerosis of native arteries of extremities with rest pain, right leg; J44.9 Chronic obstructive pulmonary disease, unspecified; L08.9 Local infection of the skin and subcutaneous tissue, unspecified; L71.9 Rosacea, unspecified; L97.529 Non-pressure chronic ulcer of other part of left foot with unspecified severity; M19.91 Primary osteoarthritis, unspecified site; Z79.01 Long term (current) use of anticoagulants; Z79.02 Long term (current) use of antithrombotics/antiplatelets; Z79.51 Long term (current) use of inhaled steroids; Z79.84 Long term (current) use of oral hypoglycemic drugs; Z79.899 Other long term (current) drug therapy; Z82.49 Family history of ischemic heart disease and other diseases of the circulatory system; Z83.3 Family history of diabetes mellitus; Z90.710 Acquired absence of both cervix and uterus; Z95.5 Presence of coronary angioplasty implant and graft; Z82.3 Family history of stroke; R53.82 Chronic fatigue, unspecified; Z60.2 Problems related to living alone; Z88.5 Allergy status to narcotic agent; Z88.8 Allergy status to other drugs, medicaments and biological substances
CPT/HCPCS: 36415; 71045; 80048; 82565; 83036; 85025; 85652; 86140; 87040; 93005; 93923; 94640; 96365; 96367; 99285

== ENCOUNTER 2019-01-31 11:42 | Day surgery (SDC) | payer MEDICARE, OTHER ==
[2019-01-30 13:27] VITALS: BMI 26.9
[~2019-01-31 11:42] MED LIST changes: +ALPRAZolam 0.5 MG TAB PO PRN; +ZOLPIDEM 5 MG TAB PO PRN
[2019-01-31 12:16] LABS: Glucose,Whole Blood 171 mg/dL (75-99)
[2019-01-31 16:00] LABS: Glucose,Whole Blood 135 mg/dL (75-99)
[2019-01-31] MEDS ORDERED: ACETAMINOPHEN TAB 325 MG TAB PO STA (16:22)
[2019-01-31] MEDS ORDERED: HYDROmorphone 0.5 MG/0.5 ML SYRINGE IVP PRN (16:22)
[2019-01-31 18:47] VITALS: BP 138/73; PULSE 70; RESP 16; TEMP 98
== END 2019-01-31 20:33 | disposition home or self-care (01) ==
LOC: CATHCVL 11:42 → 3SCARD 16:01 → CATHCVL 20:33
PROVIDERS: ATTEND Surgery
DX: I70.203 Unspecified atherosclerosis of native arteries of extremities, bilateral legs (principal); Z53.8 Procedure and treatment not carried out for other reasons; E11.42 Type 2 diabetes mellitus with diabetic polyneuropathy; E11.51 Type 2 diabetes mellitus with diabetic peripheral angiopathy without gangrene; J44.9 Chronic obstructive pulmonary disease, unspecified; I10 Essential (primary) hypertension; Z87.891 Personal history of nicotine dependence; Z82.49 Family history of ischemic heart disease and other diseases of the circulatory system; Z95.5 Presence of coronary angioplasty implant and graft; Z90.49 Acquired absence of other specified parts of digestive tract; Z90.710 Acquired absence of both cervix and uterus; Z95.0 Presence of cardiac pacemaker; Z79.01 Long term (current) use of anticoagulants; Z79.84 Long term (current) use of oral hypoglycemic drugs; Z79.899 Other long term (current) drug therapy; Z88.5 Allergy status to narcotic agent

== ENCOUNTER 2019-02-15 18:37 | Inpatient (IN) | payer MEDICARE, OTHER ==
[2019-02-15] MEDS ORDERED: SODIUM CHLORIDE 0.9% 1,000 ML IV STA (18:59)
--- NOTE | 2019-02-15 19:13 | ED ---
General Adult HPI - General Chief complaint: Weakness Stated complaint: Weakness Time Seen by Provider: 02/15/19 18:59 Source: patient, EMS Mode of arrival: EMS Limitations: no limitations - History of Present Illness Initial comments: Dictation was produced using [employer] dictation software. please excuse any grammatical, word or spelling errors. Chief Complaint: 79-year-old female presents with generalized weakness for 48 hours. History of Present Illness: This 79-year-old female presents with generalized weakness for 48 hours. Patient is history of diabetes, heart failure, vascular disorder. Patient states that over the last 48 hours she's been feeling generally weak. Patient ran out of her diabetes medications. No chest pain. She has no pain complaint. No shortness of breath. Eating well. No nausea vomiting. No diarrhea. She had no changes in her medications recently. The ROS documented in this emergency department record has been reviewed and confirmed by me. Those systems with pertinent positive or negative responses have been documented in the HPI. All other systems are other negative and/or noncontributory. PHYSICAL EXAM: General Impression: Alert and oriented x3, not in acute distress HEENT: Normocephalic atraumatic, extra-ocular movements intact, pupils equal and reactive to light bilaterally, dry mucous membranes Cardiovascular: Heart regular rate and rhythm, S1&S2 audible, no murmurs, rubs or gallops Chest: Lungs clear to auscultation bilaterally, no rhonchi, no wheeze, no rales Abdomen: Bowel sounds present, abdomen soft, non-tender, non-distended, no organomegaly Musculoskeletal: Pulses present and equal in all extremities, no peripheral edema Motor: no focal deficits noted Neurological: CN II-XII grossly intact, no focal motor or sensory deficits noted Skin: Intact with no visualized rashes Psych: Normal affect and mood ED course: 79-year-old female presents with chief complaint generalized weakness. Patient does not have any focal symptoms. Physical examination grossly benign except for some dry mucous members. Signs upon arrival are within acceptable limits. Laboratory evaluation obtained. CBC unremarkable. Metabolic panel is negative. Patient does have gap acidosis. Left castis 1.4. Urinalysis shows 4+ glucose. Education's were reviewed. Patient is on Dapagliflozin. He is concerned that patient is experiencing mild euglycemic deep diabetic ketoacidosis. Patient given intravenous fluids. Patient will be admitted to Dr. Small's group. Patient's degree of acidosis is mild. We will just provide her with intravenous fluids and trend labs. EKG interpretation: Ventricular rate 72, atrial fibrillation, QS 82, QTc 448. No NC prolongation, no QTC prolongation, no ST or T-wave changes noted. EKG compared to 01/10/2019 showing no changes. Overall, this EKG is unremarkable - Related Data Home Medications Medication Instructions Recorded Confirmed ALPRAZolam [Xanax] 0.25 mg PO HS 09/16/16 02/15/19 Ipratropium-Albuterol Nebulize 3 ml INHALATION BID 09/16/16 02/15/19 [Duoneb 0.5 mg-3 mg/3 ml Soln] Budesonide-Formot 160-4.5 Mcg 2 puff INHALATION RT-BID PRN 10/05/16 02/15/19 [Symbicort 160-4.5 Mcg Inhaler] Cholecalciferol [Vitamin D3 (25 5,000 unit PO BID 07/18/17 02/15/19 Mcg = 1000 Iu)] Cyanocobalamin (Vitamin B-12) 1,000 mcg PO BID 07/18/17 02/15/19 [Vitamin B-12] Dapagliflozin Propanediol [Farxiga] 5 mg PO DAILY 07/18/17 02/15/19 Losartan [Cozaar] 50 mg PO QAM 07/18/17 02/15/19 Acetaminophen [Tylenol Extra 500 mg PO Q6HR PRN 07/20/17 02/15/19 Strength] Liraglutide [Victoza 2-Orlin] 1.8 mg SQ HS 12/26/18 02/15/19 Clopidogrel [Plavix] 75 mg PO DAILY 01/10/19 02/15/19 Furosemide [Lasix] 20 mg PO DAILY 01/10/19 02/15/19 OXcarbazepine [Trileptal] 300 mg PO BID 01/10/19 02/15/19 Rosuvastatin [Crestor] 20 mg PO HS 01/10/19 02/15/19 OXcarbazepine [Trileptal] 150 mg PO DAILY PRN 02/15/19 02/15/19 metFORMIN HCL [metFORMIN HCL ER] 750 mg PO BID 02/15/19 02/15/19 Previous Rx's Medication Instructions Recorded Montelukast [Singulair] 10 mg PO HS #30 tab 09/20/16 Pregabalin [Lyrica] 150 mg PO BID cap 02/01/18 Apixaban [Eliquis] 5 mg PO BID tab 12/27/18 Allergies Allergy/AdvReac Type Severity Reaction Status Date / Time codeine AdvReac Nausea & Verified 02/15/19 19:13 Vomiting sitagliptin [From Janumet] AdvReac frequent Verified 02/15/19 19:13 UTI Review of Systems ROS Statement: Those systems with pertinent positive or pertinent negative responses have been documented in the HPI. ROS Other: All systems not noted in ROS Statement are negative. Past Medical History Past Medical History: Heart Failure, Diabetes Mellitus, Myocardial Infarction (DC), COPD, Diabetes Mellitus, Myocardial Infarction (DC), Osteoarthritis (OA), Skin Disorder, Vascular Disorder Additional Past Medical History / Comment(s): Leg pain, Trigeminal Neuralgia, Diabetic Neuropathy, DC 1994, ROSCACEA Last Myocardial Infarction Date:: 1994 History of Any Multi-Drug Resistant Organisms: None Reported Past Surgical History: Appendectomy, Cholecystectomy, Heart Catheterization With Stent, Hysterectomy, Orthopedic Surgery, Pacemaker Additional Past Surgical History / Comment(s): Arthrectomy rt leg, Angioplasty, Pacemaker August 2016, left Foot Surgery, one heart stent Past Anesthesia/Blood Transfusion Reactions: No Reported Reaction Date of Last Stent Placement:: 1994 Type of Cardiac Device: Permanent Pacemaker Device Placement Date:: August 2016 Past Psychological History: No Psychological Hx Reported Smoking Status: Current some day smoker Past Alcohol Use History: None Reported Past Drug Use History: None Reported - Past Family History Father Family Medical History: Myocardial Infarction (DC) Mother Family Medical History: Congestive Heart Failure (CHF), CVA/TIA, Diabetes Mellitus General Exam Limitations: no limitations Course Vital Signs 02/15/19 02/15/19 02/15/19 18:41 19:28 20:00 Temperature 99.2 F Pulse Rate 73 73 71 Respiratory 18 20 16 Rate Blood Pressure 172/89 175/80 160/87 O2 Sat by Pulse 97 97 97 Oximetry Medical Decision Making - Lab Data Result diagrams: 02/15/19 Unknown 02/15/19 Unknown Lab Results 02/15/19 02/15/19 02/15/19 Range/Units 20:02 Unknown Unknown WBC 8.4 (3.8-10.6) k/uL RBC 4.56 (3.80-5.40) m/uL Hgb 12.7 (11.4-16.0) gm/dL Hct 41.9 (34.0-46.0) % MCV 91.9 (80.0-100.0) fL MCH 27.9 (25.0-35.0) pg MCHC 30.4 L (31.0-37.0) g/dL RDW 14.9 (11.5-15.5) % Plt Count 215 (150-450) k/uL Neutrophils % 75 % Lymphocytes % 18 % Monocytes % 5 % Eosinophils % 0 % Basophils % 0 % Neutrophils # 6.2 (1.3-7.7) k/uL Lymphocytes # 1.5 (1.0-4.8) k/uL Monocytes # 0.4 (0-1.0) k/uL Eosinophils # 0.0 (0-0.7) k/uL Basophils # 0.0 (0-0.2) k/uL Hypochromasia Moderate PT (9.0-12.0) sec INR (<1.2) APTT (22.0-30.0) sec Sodium 142 (137-145) mmol/L Potassium 4.2 (3.5-5.1) mmol/L Chloride 112 H (98-107) mmol/L Carbon Dioxide 17 L (22-30) mmol/L Anion Gap 13 mmol/L BUN 20 H (7-17) mg/dL Creatinine 0.63 (0.52-1.04) mg/dL Est GFR (CKD-EPI)AfAm >90 (>60 ml/min/1.73 sqM) Est GFR (CKD-EPI)NonAf 86 (>60 ml/min/1.73 sqM) Glucose 142 H (74-99) mg/dL Plasma Lactic Acid Naveen (0.7-2.0) mmol/L Calcium 8.9 (8.4-10.2) mg/dL Ionized Calcium [place] 4.9 (4.5-5.3) mg/dL Magnesium 1.9 (1.6-2.3) mg/dL Total Bilirubin 0.9 (0.2-1.3) mg/dL AST 26 (14-36) U/L ALT 22 (9-52) U/L Alkaline Phosphatase 111 (38-126) U/L Troponin I (0.000-0.034) ng/mL Total Protein 6.8 (6.3-8.2) g/dL Albumin 4.0 (3.5-5.0) g/dL Urine Color Yellow Urine Appearance Clear (Clear) Urine pH 5.5 (5.0-8.0) Ur Specific [place] 1.030 (1.001-1.035) Urine Protein 1+ H (Negative) Urine Glucose (UA) 4+ H (Negative) Urine Ketones 3+ H (Negative) Urine Blood Negative (Negative) Urine Nitrite Negative (Negative) Urine Bilirubin Negative (Negative) Urine Urobilinogen <2.0 (<2.0) mg/dL Ur Leukocyte Esterase Negative (Negative) Urine RBC 2 (0-5) /hpf Urine WBC 2 (0-5) /hpf Ur Squamous Epith Cells 1 (0-4) /hpf Urine Mucus Rare H (None) /hpf 02/15/19 02/15/19 02/15/19 Range/Units Unknown Unknown Unknown WBC (3.8-10.6) k/uL RBC (3.80-5.40) m/uL Hgb (11.4-16.0) gm/dL Hct (34.0-46.0) % MCV (80.0-100.0) fL MCH (25.0-35.0) pg MCHC (31.0-37.0) g/dL RDW (11.5-15.5) % Plt Count (150-450) k/uL Neutrophils % % Lymphocytes % % Monocytes % % Eosinophils % % Basophils % % Neutrophils # (1.3-7.7) k/uL Lymphocytes # (1.0-4.8) k/uL Monocytes # (0-1.0) k/uL Eosinophils # (0-0.7) k/uL Basophils # (0-0.2) k/uL Hypochromasia PT 11.5 (9.0-12.0) sec INR 1.1 (<1.2) APTT 23.3 (22.0-30.0) sec Sodium (137-145) mmol/L Potassium (3.5-5.1) mmol/L Chloride (98-107) mmol/L Carbon Dioxide (22-30) mmol/L Anion Gap mmol/L BUN (7-17) mg/dL Creatinine (0.52-1.04) mg/dL Est GFR (CKD-EPI)AfAm (>60 ml/min/1.73 sqM) Est GFR (CKD-EPI)NonAf (>60 ml/min/1.73 sqM) Glucose (74-99) mg/dL Plasma Lactic Acid Naveen 1.4 (0.7-2.0) mmol/L Calcium (8.4-10.2) mg/dL Ionized Calcium [place] (4.5-5.3) mg/dL Magnesium (1.6-2.3) mg/dL Total Bilirubin (0.2-1.3) mg/dL AST (14-36) U/L ALT (9-52) U/L Alkaline Phosphatase (38-126) U/L Troponin I <0.012 (0.000-0.034) ng/mL Total Protein (6.3-8.2) g/dL Albumin (3.5-5.0) g/dL Urine Color Urine Appearance (Clear) Urine pH (5.0-8.0) Ur Specific [place] (1.001-1.035) Urine Protein (Negative) Urine Glucose (UA) (Negative) Urine Ketones (Negative) Urine Blood (Negative) Urine Nitrite (Negative) Urine Bilirubin (Negative) Urine Urobilinogen (<2.0) mg/dL Ur Leukocyte Esterase (Negative) Urine RBC (0-5) /hpf Urine WBC (0-5) /hpf Ur Squamous Epith Cells (0-4) /hpf Urine Mucus (None) /hpf Disposition Clinical Impression: Metabolic acidosis Disposition: ADMITTED IP TO THIS HOSP Condition: Fair Referrals: He Giraldo MD [Primary Care Provider] - 1-2 days Decision Time: 21:29
[2019-02-15 19:26] LABS: Basophils % (A) 0 %; Eosinophils % (A) 0 %; HCT 41.9 % (34.0-46.0); HGB 12.7 gm/dL (11.4-16.0); Hypochromasia Moderate; Lymphocytes # (A) 1.5 k/uL (1.0-4.8); Lymphocytes % (A) 18 %; MCH 27.9 pg (25.0-35.0); MCHC 30.4 g/dL (31.0-37.0); MCV 91.9 fL (80.0-100.0); Mean Platelet Volume 7.1; Monocytes # (A) 0.4 k/uL (0-1.0); Monocytes % (A) 5 %; Neutrophils # (A) 6.2 k/uL (1.3-7.7); Neutrophils % (A) 75 %; Platelet Count 215 k/uL (150-450); RBC 4.56 m/uL (3.80-5.40); RDW 14.9 % (11.5-15.5); WBC 8.4 k/uL (3.8-10.6)
--- NOTE | 2019-02-15 19:33 | XR ---
EXAMINATION TYPE: XR chest 2V DATE OF EXAM: 02/15/2019 COMPARISON: 01/10/2019 HISTORY: 79-year-old female with weakness TECHNIQUE: AP and lateral views FINDINGS: Left anterior chest wall pacemaker generator with right ventricular lead. Heart upper limits of cara l in size. Diffuse interstitial prominence appears largely chronic. No consolidation or pleural effus ion. IMPRESSION: Stable borderline cardiomegaly. Diffuse interstitial changes also appear largely chronic. Correlate f or bronchitis or asthma. Otherwise, no acute process seen.
[2019-02-15 19:37] LABS: INR 1.1 (<1.2); Ionized Calcium 4.9 mg/dL (4.5-5.3); Partial Thromboplastin Time 23.3 sec (22.0-30.0); Prothrombin Time 11.5 sec (9.0-12.0)
[2019-02-15 19:46] LABS: ALT 22 U/L (9-52); AST 26 U/L (14-36); African American GFR (CKD) >90 (>60 ml/min/1.73 sqM); Alkaline Phosphatase 111 U/L (38-126); Anion Gap 13 mmol/L; Blood Urea Nitrogen 20 mg/dL (7-17); Calcium 8.9 mg/dL (8.4-10.2); Carbon Dioxide 17 mmol/L (22-30); Chloride 112 mmol/L (98-107); Glucose 142 mg/dL (74-99); Magnesium 1.9 mg/dL (1.6-2.3); Non-African American GFR(CKD) 86 (>60 ml/min/1.73 sqM); Potassium 4.2 mmol/L (3.5-5.1); Sodium 142 mmol/L (137-145); Total Bilirubin 0.9 mg/dL (0.2-1.3); Total Protein 6.8 g/dL (6.3-8.2)
[2019-02-15 20:19] LABS: Appearance,Urine Clear (Clear); Bilirubin,Urine Negative (Negative); Blood,Urine Negative (Negative); Color,Urine Yellow; Glucose,Urine (UA) 4+ (Negative); Leukocyte Esterase,Urine Negative (Negative); Mucus,Urine Rare /hpf; Nitrite,Urine Negative (Negative); PH, Urine 5.5 (5.0-8.0); Protein,Urine 1+ (Negative); RBC,Urine 2 /hpf (0-5); Squamous Epithelial Cell,Urine 1 /hpf (0-4); Urobilinogen,Urine <2.0 mg/dL (<2.0); WBC,Urine 2 /hpf (0-5)
[2019-02-15 20:51] LABS: Ketones,Urine 3+ (Negative)
[2019-02-15] MEDS ORDERED: NALOXONE 0.4 MG/ML 1 ML VIAL IV PRN (21:29)
[2019-02-15] MEDS ORDERED: HYDROcodone/APAP 5-325MG 1 EACH TAB PO STA (21:33)
[2019-02-15] MEDS: SODIUM CHLORIDE 0.9% 1,000 ML IV SCH (22:04)
[2019-02-15 22:47] LABS: Glucose,Whole Blood 142 mg/dL (75-99)
[2019-02-15] MEDS ORDERED: OXcarbazepine 150 MG TAB PO PRN (23:13)
[2019-02-15] MEDS ORDERED: VANCOMYCIN IVPB ONE (23:16)
[2019-02-15] MEDS ORDERED: VANCOMYCIN IV PER PHARMACY 1 EACH MISC MISCELLANE PRN (23:16)
[2019-02-15] MEDS ORDERED: SODIUM CHLORIDE 0.9% IVPB ONE (23:16)
[2019-02-15] MEDS ORDERED: VANCOMYCIN 1,250 MG in SODIUM CHLORIDE 0.9% 250 ML IVPB STA (23:19)
[2019-02-16] MEDS: PIPERACILLIN-TAZOBACTAM 3.375 GM in SODIUM CHLORIDE 0.9% 100 ML IVPB SCH ×3 (00:07→16:58)
[2019-02-16] MEDS: HYDROcodone/APAP 5-325MG 1 EACH TAB PO PRN ×3 (01:08→20:11)
[2019-02-16 07:15] LABS: Glucose,Whole Blood 140 mg/dL (75-99)
[2019-02-16] MEDS: Dapagliflozin Propanediol [Farxiga] 5 MG PO SCH (07:17)
[2019-02-16] MEDS: SYMBICORT 160-4.5 MCG INHALER INHALATION PRN (07:20)
[2019-02-16] MEDS: IPRATROPIUM-ALBUTEROL 3 ML NEB INHALATION SCH ×2 (07:22→19:30)
--- NOTE | 2019-02-16 07:46 | HP ---
HISTORY AND PHYSICAL DATE OF SERVICE: 02/15/2019 CHIEF COMPLAINT: Weakness. HISTORY OF PRESENT ILLNESS: This 79-year-old woman with a past medical history of multiple medical problems including CHF, history of diabetes type 2, myocardial infarction, COPD, diabetes, history of DJD, history of coronary artery disease/stent, being followed Dr. He Giraldo in the outpatient setting, was complaining of generalized weakness for the last 48 hours. The patient has been having multiple ulcerations of the foot, mainly on the left foot and left little toe. The patient was evaluated by Dr. Aguilera, the vascular surgeon. The patient was taken to [facility] and was admitted for further evaluation. White count is 8.4, CO2 17. There is no history of fever, rigors. No history of headache, loss of consciousness or seizures at this time. PAST MEDICAL HISTORY: History of CHF, diabetes type 2, myocardial infarction, COPD, DJD, history of vascular disorder, trigeminal neuralgia, rosacea. MEDICATIONS: Home medications are reviewed and include: 1. Trileptal 2 mg daily p.r.n. 2. Symbicort 2 puffs b.i.d. 3. Tylenol 500 mg q.6h p.r.n. 4. Metformin 750 mg p.o. b.i.d. 5. Crestor 20 mg q.h.s. 6. Lyrica 150 mg p.o. b.i.d. 7. Trileptal 300 mg p.o. b.i.d. 8. Singulair 10 mg q.h.s. 9. Cozaar 50 mg q.a.m. 10.Victoza 1.8 subcu q.h.s. 11.DuoNeb b.i.d. 12.Lasix 20 mg p.o. daily. 13.Farxiga 5 mg p.o. daily. 14.Vitamin B12 1000 mcg p.o. daily. 15.Plavix 75 mg p.o. daily. 16.Vitamin D3 5000 b.i.d. 17.Eliquis 5 mg p.o. b.i.d. 18.Xanax 0.5 q.h.s. ALLERGIES: CODEINE AND JANUMET. FAMILY HISTORY: History of myocardial infarction. SOCIAL HISTORY: Previous history of smoking. No history of current smoking or alcohol. REVIEW OF SYSTEMS: ENT: Diminished hearing. Diminished vision. CARDIOVASCULAR: No angina or palpitations. RESPIRATIONS: No cough. GI no nausea or vomiting. no dysuria. Nervous System as mentioned earlier. ALLERGY/IMMUNOLOGY: No asthma or hayfever. MUSCULOSKELETAL as mentioned earlier. HEMATOLOGY/ONCOLOGY: As mentioned earlier. ENDOCRINE: As mentioned earlier. CONSTITUTIONAL: As mentioned earlier. DERMATOLOGY: Negative. RHEUMATOLOGY: Negative. PSYCHIATRY: As mentioned earlier. PHYSICAL EXAMINATION: Alert and oriented times three. Pulse 66. Blood pressure 160/84, respiration 20, temperature 98.5, pulse ox 98% on room air. HEENT is conjunctivae normal. Oral mucosa moist. NECK is no jugular venous distention. No carotid bruit. No lymph node enlargement. CARDIOVASCULAR: S1-S2 muffled. RESPIRATIONS: Breath sounds diminished in the bases. No rhonchi. No crackles. ABDOMEN: Soft, nontender. No mass palpable. LEGS: Significant ulceration and some infection cellulitis of the left little toe present. Otherwise pulses diminished bilaterally. Excoriation of the right marshall also present. NERVOUS SYSTEM: Higher functions as mentioned earlier. Moves all four limbs. No focal motor or sensory deficits. LYMPHATICS: No lymph nodes palpable in the neck, axillae or groin. JOINTS: No active deforming arthropathy. SKIN as mentioned. LAB STUDIES: CBC, WBC 8.2, hemoglobin 12.7, sodium 142, potassium 4.2, CO2 17. ASSESSMENT: 1. Left foot diabetic ulcer with right-marshall cellulitis. 2. Rule out sepsis. 3. Diminished CO2 with mild metabolic acidosis present on admission. 4. Diabetes mellitus type 2. 5. Generalized weakness with dehydration. 6. History of congestive heart failure. 7. Diabetes type 2. 8. History of myocardial infarction. 9. History of chronic obstructive pulmonary disease. 10.History of degenerative joint disease. 11.History of leg pain. 12.History of trigeminal neuralgia. 13.History of diabetic peripheral neuropathy. 14.History of coronary artery disease/stent. 15.History of pacemaker. 16.FULL CODE. RECOMMENDATIONS AND DISCUSSION: This 79-year-old woman who presented with multiple medical issues, we will monitor the patient closely, continue the current medications, symptomatic treatment. Recommend broad-spectrum IV antibiotics. I would also repeat labs. IV fluids. I would also recommend a bone scan to rule out possible osteomyelitis. Vascular surgery consultations and Infectious Disease evaluation. Resume the home medications. Follow cultures. Prognosis guarded because of multiple complex medical issues. Further recommendations to follow. A copy of this dictation being forwarded to Dr. Giraldo who is the primary physician. MMODL / IJN: [id number] /
[2019-02-16 07:47] LABS: Basophils % (A) 0 %; Eosinophils # (A) 0.1 k/uL (0-0.7); Eosinophils % (A) 2 %; HCT 40.8 % (34.0-46.0); HGB 12.5 gm/dL (11.4-16.0); Hypochromasia Marked; Lymphocytes # (A) 1.2 k/uL (1.0-4.8); Lymphocytes % (A) 16 %; MCH 28.4 pg (25.0-35.0); MCHC 30.7 g/dL (31.0-37.0); MCV 92.5 fL (80.0-100.0); Mean Platelet Volume 6.7; Monocytes # (A) 0.5 k/uL (0-1.0); Monocytes % (A) 6 %; Neutrophils # (A) 5.3 k/uL (1.3-7.7); Neutrophils % (A) 73 %; Platelet Count 203 k/uL (150-450); RBC 4.41 m/uL (3.80-5.40); RDW 14.5 % (11.5-15.5); WBC 7.2 k/uL (3.8-10.6)
[2019-02-16 08:03] LABS: African American GFR (CKD) >90 (>60 ml/min/1.73 sqM); Anion Gap 12 mmol/L; Blood Urea Nitrogen 19 mg/dL (7-17); Calcium 8.6 mg/dL (8.4-10.2); Carbon Dioxide 18 mmol/L (22-30); Chloride 112 mmol/L (98-107); Glucose 146 mg/dL (74-99); Non-African American GFR(CKD) 86 (>60 ml/min/1.73 sqM); Potassium 4.1 mmol/L (3.5-5.1); Sodium 142 mmol/L (137-145)
[2019-02-16] MEDS: Metformin Hcl [Metformin Hcl Er] 750 MG PO SCH ×2 (08:03→20:20)
[2019-02-16] MEDS: APIXABAN 5 MG TAB PO SCH ×2 (08:06→20:16)
[2019-02-16] MEDS: PREGABALIN 75 MG CAP PO SCH ×2 (08:06→20:29)
[2019-02-16] MEDS: CLOPIDOGREL 75 MG TAB PO SCH (08:06)
[2019-02-16] MEDS: PANTOPRAZOLE 40 MG TABLET PO SCH (08:06)
[2019-02-16] MEDS: CHOLECALCIFEROL 1,000 UNIT TAB PO SCH ×2 (08:06→20:15)
[2019-02-16] MEDS: INSULIN ASPART (NovoLOG) 100 UNIT/ML VIAL SQ SCH ×4 (08:06→22:20)
[2019-02-16] MEDS: FUROSEMIDE 20 MG TAB PO SCH (08:06)
[2019-02-16] MEDS: LOSARTAN 50 MG TAB PO SCH (08:06)
[2019-02-16] MEDS: CYANOCOBALAMIN 500 MCG TAB PO SCH ×2 (08:06→20:15)
[2019-02-16] MEDS: OXcarbazepine 300 MG TAB PO SCH ×2 (08:06→20:29)
[2019-02-16] MEDS: SODIUM CHLORIDE 0.9% 1,000 ML IV SCH ×2 (08:07→17:00)
[2019-02-16] MEDS: ACETAMINOPHEN TAB 500 MG TAB PO PRN (08:13)
--- NOTE | 2019-02-16 11:21 | NM ---
EXAMINATION TYPE: NM bone 3 phase DATE OF EXAM: 02/16/2019 COMPARISON: Correlation 01/10/2019 and radiograph HISTORY: 79-year-old female diabetic foot ulcer, left foot bone pain for 3 years. TECHNIQUE: Triple phase bone scintigraphy was performed following the injection of 24.1 mCi Tc 99m MD P. Immediate images and 3 hours post injection images acquired. Imaging center along the bilateral d istal lower extremities. FINDINGS: Flow images show no significant asymmetry. Pool images may have slight asymmetric increased activity along the dorsal left forefoot. However, delayed images show no focal intensely increased activity. S mall focus of slightly increased activity posteriorly on the right is nonspecific, probably relating to enthesopathy. IMPRESSION: No convincing scintigraphic evidence for osteomyelitis on the left.
[2019-02-16 12:13] LABS: Glucose,Whole Blood 177 mg/dL (75-99)
[2019-02-16] MEDS: VANCOMYCIN 1,250 MG in SODIUM CHLORIDE 0.9% 250 ML IVPB SCH (13:16)
[2019-02-16 17:18] LABS: Glucose,Whole Blood 142 mg/dL (75-99)
--- NOTE | 2019-02-16 19:16 | PN ---
PROGRESS NOTE DATE OF SERVICE: 02/16/2019. This 79-year-old woman was admitted to the hospital with left foot ulcer and cellulitis, is being closely monitored at this time. The patient had failure of outpatient treatment. Multiple consultants are following the patient closely. Bone scan showed no convincing evidence of any osteomyelitis. No chest pain. No palpitations. No fever. Cultures are pending at this time. PHYSICAL EXAM: Alert and oriented x3. Pulse is 61. Blood pressure 133/77. Respirations 18, temperature 97.9, pulse ox 94% on room air. HEENT is conjunctivae normal. Oral mucosa moist. NECK is no jugular venous distention. CARDIOVASCULAR SYSTEM: S1, S2 muffled. RESPIRATORY SYSTEM: Breath sounds diminished at the bases. No rhonchi. No crackles. ABDOMEN: Soft, nontender. LEGS: Left leg ulcer and gangrenous changes also present. Right marshall ulcers also present. NERVOUS SYSTEM: No focal deficits. LABS: CBC within normal limits. Otherwise, CO2 is 18. Other labs are noted. ASSESSMENT: 1. Left foot diabetic ulcer with right marshall cellulitis with no evidence of any osteomyelitis. 2. Possible sepsis, present on admission. 3. Diminished CO2 with mild metabolic acidosis, present on admission. 4. Diabetes mellitus type 2. 5. Generalized weakness and dehydration, present on admission, possibly secondary to sepsis. 6. History of congestive heart failure. 7. Diabetes mellitus type 2. 8. History of myocardial infarction. 9. History of chronic obstructive pulmonary disease. 10.History of degenerative joint disease. 11.History of leg pain. 12.History of trigeminal neuralgia. 13.History of diabetic peripheral neuropathy. 14.History of coronary artery disease and stent. 15.History of pacemaker. 16.FULL CODE. RECOMMENDATIONS AND DISCUSSION: Recommend to continue current medications, continue with monitoring, symptomatic treatment. Otherwise, at this time, I recommend continue with IV antibiotics and if there is no evidence of osteomyelitis, we will closely monitor and closely follow with multiple consultants. Prognosis guarded. further recommendations to follow. MMODL / IJN: [id number] /
[2019-02-16] MEDS: MONTELUKAST 10 MG TAB PO SCH (20:15)
[2019-02-16] MEDS: ALPRAZolam 0.25 MG TAB PO SCH (20:15)
[2019-02-16] MEDS: ATORVASTATIN 40 MG TAB PO SCH (20:15)
[2019-02-16] MEDS: Liraglutide [Victoza 2-Pak] 1.8 MG SQ SCH (20:19)
[2019-02-16 21:10] LABS: Glucose,Whole Blood 274 mg/dL (75-99)
--- NOTE | 2019-02-16 23:21 | P.CONS ---
History of Present Illness - Reason for Consult Consult date: 02/16/19 Left foot wound Requesting physician: Naomy Small - Chief Complaint Weakness and chronic nonhealing wound to the left fifth toe - History of Present Illness Patient is a 79-year-old female with a past medical history significant for chronic nonhealing wound to the left fifth toe medial side and on the medial side of the right big toe for which the patient follow with Dr. Rose at [facility] [place], patient has been brought into the right [facility] for evaluation of generalized weakness and some confusion patient denies having any headache or URI symptoms no chest pain shortness of breath or cough denies having any abdominal pain patient did have discoloration of the left fifth toe medial side wound and she has been complaining of some dull aching pain with intensity about 5-10 to the left foot wound area however the patient denies having any purulent drainage or any foul- smelling patient has been afebrile and her white count has been normal patient did have a bowl skin no pain and she was negative for any osteo-myelitis to the left foot patient has been treated with vancomycin and Zosyn infectious disease was consulted for further recommendation regarding antibiotic therapy Review of Systems Positive point has been mentioned in the HPI rest of the systems are negative Past Medical History Past Medical History: Heart Failure, Diabetes Mellitus, Myocardial Infarction ([place]), COPD, Diabetes Mellitus, Myocardial Infarction ([place]), Osteoarthritis (OA), Skin Disorder, Vascular Disorder Additional Past Medical History / Comment(s): Leg pain, Trigeminal Neuralgia, Diabetic Neuropathy, [place] 1994, ROSCACEA Last Myocardial Infarction Date:: 1994 History of Any Multi-Drug Resistant Organisms: None Reported Past Surgical History: Appendectomy, Cholecystectomy, Heart Catheterization With Stent, Hysterectomy, Orthopedic Surgery, Pacemaker Additional Past Surgical History / Comment(s): Arthrectomy rt leg, Angioplasty, Pacemaker August 2016, left Foot Surgery, one heart stent Past Anesthesia/Blood Transfusion Reactions: No Reported Reaction Date of Last Stent Placement:: 1994 Type of Cardiac Device: Permanent Pacemaker Device Placement Date:: August 2016 Past Psychological History: No Psychological Hx Reported Additional Psychological History / Comment(s): 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 No experience. No travel. No animal exposures Smoking Status: Former smoker Past Alcohol Use History: None Reported Additional Past Alcohol Use History / Comment(s): pt states she stopped smoking 3 months ago. Started smoking in 1953. Past Drug Use History: None Reported - Past Family History Father Family Medical History: Myocardial Infarction ([place]) Mother Family Medical History: Congestive Heart Failure (CHF), CVA/TIA, Diabetes Mellitus Medications and Allergies Home Medications Medication Instructions Recorded Confirmed Type ALPRAZolam [Xanax] 0.25 mg PO HS 09/16/16 02/15/19 History Ipratropium-Albuterol Nebulize 3 ml INHALATION BID 09/16/16 02/15/19 History [Duoneb 0.5 mg-3 mg/3 ml Soln] Montelukast [Singulair] 10 mg PO HS #30 tab 09/20/16 02/15/19 Rx Budesonide-Formot 160-4.5 Mcg 2 puff INHALATION RT-BID PRN 10/05/16 02/15/19 History [Symbicort 160-4.5 Mcg Inhaler] Cholecalciferol [Vitamin D3 (25 5,000 unit PO BID 07/18/17 02/15/19 History Mcg = 1000 Iu)] Cyanocobalamin (Vitamin B-12) 1,000 mcg PO BID 07/18/17 02/15/19 History [Vitamin B-12] Dapagliflozin Propanediol [Farxiga] 5 mg PO DAILY 07/18/17 02/15/19 History Losartan [Cozaar] 50 mg PO QAM 07/18/17 02/15/19 History Acetaminophen [Tylenol Extra 500 mg PO Q6HR PRN 07/20/17 02/15/19 History Strength] Pregabalin [Lyrica] 150 mg PO BID cap 02/01/18 02/15/19 Rx Liraglutide [Victoza 2-Orlin] 1.8 mg SQ HS 12/26/18 02/15/19 History Apixaban [Eliquis] 5 mg PO BID tab 12/27/18 02/15/19 Rx Clopidogrel [Plavix] 75 mg PO DAILY 01/10/19 02/15/19 History Furosemide [Lasix] 20 mg PO DAILY 01/10/19 02/15/19 History OXcarbazepine [Trileptal] 300 mg PO BID 01/10/19 02/15/19 History Rosuvastatin [Crestor] 20 mg PO HS 01/10/19 02/15/19 History OXcarbazepine [Trileptal] 150 mg PO DAILY PRN 02/15/19 02/15/19 History metFORMIN HCL [metFORMIN HCL ER] 750 mg PO BID 02/15/19 02/15/19 History Allergies Allergy/AdvReac Type Severity Reaction Status Date / Time codeine AdvReac Nausea & Verified 02/16/19 00:56 Vomiting sitagliptin [From ] AdvReac frequent Verified 02/15/19 19:13 UTI Physical Exam Vitals: Vital Signs Temp Pulse Resp BP Pulse Ox 02/16/19 21:10 98.5 F 60 22 153/75 95 02/16/19 13:30 97.9 F 61 18 136/70 94 L 02/16/19 04:30 98.7 F 80 16 143/65 95 Intake and Output 02/16/19 02/16/19 02/17/19 14:59 22:59 06:59 Other: # Voids 2 1 # Bowel Movements 1 GENERAL DESCRIPTION: An elderly female lying in bed, no distress. No tachypnea or accessory muscle of respiration use. HEENT: Shows Pallor , no scleral icterus. Oral mucous membrane is dry. No pharyngeal erythema or thrush NECK: Trachea central, no thyromegaly. LUNGS: Unlabored breathing. Clear to auscultation anteriorly. No wheeze or crackle. HEART: S1, S2, regular rate and rhythm. No loud murmur ABDOMEN: Soft, no tenderness , guarding or rigidity, no organomegaly EXTREMITIES: Left fifth toe been decided did have a black on the left big toe medial side he did have a wound with no significant swelling redness or any foul-smelling drainage SKIN: No rash, no masses palpable. NEUROLOGICAL: The patient is awake, alert, oriented x3, mood and affect normal. Results CBC & Chem 7: 02/16/19 07:22 02/16/19 07:22 Labs: Abnormal Lab Results - Last 24 Hours (Table) 02/16/19 02/16/19 02/16/19 Range/Units 07:13 07:22 07:22 MCHC 30.7 L (31.0-37.0) g/dL Chloride 112 H (98-107) mmol/L Carbon Dioxide 18 L (22-30) mmol/L BUN 19 H (7-17) mg/dL Glucose 146 H (74-99) mg/dL POC Glucose (mg/dL) 140 H (75-99) mg/dL 02/16/19 02/16/19 02/16/19 Range/Units 12:11 17:14 21:09 MCHC (31.0-37.0) g/dL Chloride (98-107) mmol/L Carbon Dioxide (22-30) mmol/L BUN (7-17) mg/dL Glucose (74-99) mg/dL POC Glucose (mg/dL) 177 H 142 H 274 H (75-99) mg/dL Microbiology - Last 24 Hours (Table) 02/15/19 23:55 Anaerobic Culture - Preliminary Toe - Left Fifth 02/15/19 23:55 Wound Culture - Preliminary Toe - Left Fifth Assessment and Plan Assessment: 1-patient with a chronic nonhealing wound left foot fifth toe with features mostly of ischemia with necrotic medial side and no significant extremity changes underlying infection not entirely excluded and likely from gram-positive skin anita in this patient who has been in the hospital will need to cover for the MRSA (1) Wound of left foot Current Visit: Yes Status: Acute Code(s): S91.302A - UNSPECIFIED OPEN WOUND, LEFT FOOT, INITIAL ENCOUNTER SNOMED Code(s): 105157711 (2) Diabetic foot ulcer Current Visit: Yes Status: Acute Code(s): E11.621 - TYPE 2 DIABETES MELLITUS WITH FOOT ULCER; L97.509 - NON-PRESSURE CHRONIC ULCER OTH PRT UNSP FOOT W UNSP SEVERITY SNOMED Code(s): 010410733 Plan: 1-await vascular surgery evaluation for either concentration for vascular revascularization and possible debridement of the left fifth toe at which time deep culture should be obtained 2-Vancomycin pharmacy to dose target trough of 15 while watching his kidney function and Vanco trough closely 3-discontinue Zosyn to decrease risk of nephrotoxicity We will follow on clinical condition and cultures to further adjust medication if needed Thank you for this consultation will follow this patient with you Time with Patient: Greater than 30
[2019-02-17] MEDS: SODIUM CHLORIDE 0.9% 1,000 ML IV SCH ×2 (04:09→12:48)
[2019-02-17] MEDS: ACETAMINOPHEN TAB 500 MG TAB PO PRN ×2 (04:47→20:19)
[2019-02-17] MEDS: VANCOMYCIN 1,250 MG in SODIUM CHLORIDE 0.9% 250 ML IVPB SCH (05:44)
[2019-02-17 07:15] LABS: Glucose,Whole Blood 222 mg/dL (75-99)
[2019-02-17] MEDS: IPRATROPIUM-ALBUTEROL 3 ML NEB INHALATION SCH ×2 (07:15→20:44)
[2019-02-17] MEDS: CYANOCOBALAMIN 500 MCG TAB PO SCH ×2 (07:51→21:33)
[2019-02-17] MEDS: PANTOPRAZOLE 40 MG TABLET PO SCH (07:51)
[2019-02-17] MEDS: CHOLECALCIFEROL 1,000 UNIT TAB PO SCH ×2 (07:51→21:33)
[2019-02-17] MEDS: INSULIN ASPART (NovoLOG) 100 UNIT/ML VIAL SQ SCH ×4 (07:52→21:51)
[2019-02-17] MEDS: CLOPIDOGREL 75 MG TAB PO SCH (07:52)
[2019-02-17] MEDS: APIXABAN 5 MG TAB PO SCH (07:52)
[2019-02-17] MEDS: LOSARTAN 50 MG TAB PO SCH (07:52)
[2019-02-17] MEDS: FUROSEMIDE 20 MG TAB PO SCH (07:52)
[2019-02-17] MEDS: OXcarbazepine 300 MG TAB PO SCH ×2 (07:54→21:33)
[2019-02-17] MEDS: PREGABALIN 75 MG CAP PO SCH ×2 (07:55→21:39)
[2019-02-17] MEDS: HYDROcodone/APAP 5-325MG 1 EACH TAB PO PRN ×2 (08:02→15:56)
[2019-02-17] MEDS: Dapagliflozin Propanediol [Farxiga] 5 MG PO SCH (08:08)
[2019-02-17] MEDS: Metformin Hcl [Metformin Hcl Er] 750 MG PO SCH ×2 (08:09→21:37)
[2019-02-17 11:07] LABS: Basophils % (A) 1 %; Eosinophils # (A) 0.2 k/uL (0-0.7); Eosinophils % (A) 3 %; HCT 39.9 % (34.0-46.0); HGB 12.4 gm/dL (11.4-16.0); Hypochromasia Moderate; Lymphocytes # (A) 0.7 k/uL (1.0-4.8); Lymphocytes % (A) 12 %; MCH 28.4 pg (25.0-35.0); MCV 91.6 fL (80.0-100.0); Mean Platelet Volume 7.3; Monocytes # (A) 0.4 k/uL (0-1.0); Monocytes % (A) 7 %; Neutrophils # (A) 4.1 k/uL (1.3-7.7); Neutrophils % (A) 75 %; Platelet Count 201 k/uL (150-450); RBC 4.36 m/uL (3.80-5.40); RDW 14.8 % (11.5-15.5); WBC 5.5 k/uL (3.8-10.6)
[2019-02-17 11:20] LABS: Calcium 8.6 mg/dL (8.4-10.2); Potassium 4.1 mmol/L (3.5-5.1)
[2019-02-17 11:39] LABS: Glucose,Whole Blood 209 mg/dL (75-99)
[2019-02-17] MEDS ORDERED: LIDOCAINE 1% 20 ML VIAL (10MG/ML) FOR IV START INTRADERMA PRN (14:03)
--- NOTE | 2019-02-17 14:14 | PN ---
PROGRESS NOTE DATE OF SERVICE: 02/17/2019 This is a 79-year-old woman with a past medical history of multiple medical problems was admitted with left foot diabetic ulcer and right marshall cellulitis. Angiograms was planned by Vascular Surgery tomorrow. No chest pain. No palpitations. No fever. The cultures are showing gram-negative bacilli. Patient on broad spectrum IV antibiotics. No chest pain. No palpitations. No fever. PHYSICAL EXAM: Alert and oriented x3. Pulse is 55, blood pressure 134/75, respirations 16, temperature 98.2, pulse ox 97% on room air. HEENT: Conjunctivae normal. Oral mucosa moist. NECK: No jugular venous distention. No lymph node enlargement. CARDIOVASCULAR SYSTEM: S1, S2, muffled. RESPIRATORY: Breath sounds diminished at the bases. No rhonchi. No crackles. ABDOMEN: Soft, nontender. LEGS: Left foot ulcer present. NERVOUS SYSTEM: No focal deficits. LABS: At this time, WBC 5.5, glucose 194, 209. ASSESSMENT: 1. Left foot diabetic ulcer and as well as right marshall cellulitis with no evidence of any osteomyelitis in the bone scan. 2. Possible sepsis present on admission secondary to cellulitis. 3. Diminished CO2 with mild metabolic acidosis present on admission. 4. Diabetes mellitus type 2. 5. Generalized weakness and dehydration, present on admission, possibly secondary to sepsis. 6. History of congestive heart failure. 7. Diabetes mellitus type 2. 8. History of myocardial infarction, history of chronic obstructive pulmonary disease. 9. Degenerative joint disease. 10.History of back pain. 11.History of trigeminal neurology. 12.History of diabetic peripheral neuropathy. 13.History of coronary artery disease, stent. 14.History of pacemaker. 15.FULL CODE. RECOMMENDATION: Recommend to continue current medications, continue current management and symptomatic treatment. Otherwise, at this time I recommend follow the patient closely with Infectious Disease. Continue the antibiotics. Guarded prognosis. Further recommendations to follow. Angiogram per Vascular Surgery and debridement per Vascular Surgery. Further recommendations to follow. MMODL / IJN: [id number] /
[2019-02-17] MEDS: LACTATED RINGERS 1,000 ML IV SCH (14:46)
--- NOTE | 2019-02-17 15:52 | P.GSCN ---
History of Present Illness Consult date: 02/17/19 Reason for Consult: moderate/severe left femoral/popliteal artery disease left foot ulcer History of present illness: This is a 79-year-old woman with past medical history of medical multiple medical problems with admission for left foot diabetic ulcer and right marshall cellulitis. Consulted as patient was scheduled for outpatient vascular surgery tomorrow with Dr. Aguilera for atherectomy of the left lower extremity. The patient denies any shortness of breath or chest pain. Has a left fifth toe and great toes ulcer with necrotic tissue of fifth toe. Bone scan was done yesterday, negative for osteomyelitis. Patient had been on Plavix and Eliquis at home states that she had not taken the medication February 13 through the , however did get her dose Sunday and Sunday while inpatient as she forgot to mention she was scheduled for surgery. Patient is receiving broad-spectrum IV antibiotics at this time. Patient denies any fevers or chills. Patient reports positive tenderness to left lower extremity and toes. Patient had ar terial Doppler in December showing moderate to severe femoral popliteal disease. Review of Systems 14 point review of systems performed. Pertinent positives and negatives per the HPI Past Medical History Past Medical History: Heart Failure, Diabetes Mellitus, Myocardial Infarction ([place]), COPD, Diabetes Mellitus, Myocardial Infarction ([place]), Osteoarthritis (OA), Skin Disorder, Vascular Disorder Additional Past Medical History / Comment(s): Leg pain, Trigeminal Neuralgia, Diabetic Neuropathy, [place] 1994, ROSCACEA Last Myocardial Infarction Date:: 1994 History of Any Multi-Drug Resistant Organisms: None Reported Past Surgical History: Appendectomy, Cholecystectomy, Heart Catheterization With Stent, Hysterectomy, Orthopedic Surgery, Pacemaker Additional Past Surgical History / Comment(s): Arthrectomy rt leg, Angioplasty, Pacemaker August 2016, left Foot Surgery, one heart stent Past Anesthesia/Blood Transfusion Reactions: No Reported Reaction Date of Last Stent Placement:: 1994 Type of Cardiac Device: Permanent Pacemaker Device Placement Date:: August 2016 Past Psychological History: No Psychological Hx Reported Additional Psychological History / Comment(s): 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 No animal exposures Smoking Status: Former smoker Past Alcohol Use History: None Reported Additional Past Alcohol Use History / Comment(s): pt states she stopped smoking 3 months ago. Started smoking in 1952. Past Drug Use History: None Reported - Past Family History Father Family Medical History: Myocardial Infarction ([place]) Mother Family Medical History: Congestive Heart Failure (CHF), CVA/TIA, Diabetes Mellitus Medications and Allergies Home Medications Medication Instructions Recorded Confirmed Type ALPRAZolam [Xanax] 0.25 mg PO HS 09/16/16 02/15/19 History Ipratropium-Albuterol Nebulize 3 ml INHALATION BID 09/16/16 02/15/19 History [Duoneb 0.5 mg-3 mg/3 ml Soln] Montelukast [Singulair] 10 mg PO HS #30 tab 09/20/16 02/15/19 Rx Budesonide-Formot 160-4.5 Mcg 2 puff INHALATION RT-BID PRN 10/05/16 02/15/19 History [Symbicort 160-4.5 Mcg Inhaler] Cholecalciferol [Vitamin D3 (25 5,000 unit PO BID 07/18/17 02/15/19 History Mcg = 1000 Iu)] Cyanocobalamin (Vitamin B-12) 1,000 mcg PO BID 07/18/17 02/15/19 History [Vitamin B-12] Dapagliflozin Propanediol [Farxiga] 5 mg PO DAILY 07/18/17 02/15/19 History Losartan [Cozaar] 50 mg PO QAM 07/18/17 02/15/19 History Acetaminophen [Tylenol Extra 500 mg PO Q6HR PRN 07/20/17 02/15/19 History Strength] Pregabalin [Lyrica] 150 mg PO BID cap 02/01/18 02/15/19 Rx Liraglutide [Victoza 2-Orlin] 1.8 mg SQ HS 12/26/18 02/15/19 History Apixaban [Eliquis] 5 mg PO BID tab 12/27/18 02/15/19 Rx Clopidogrel [Plavix] 75 mg PO DAILY 01/10/19 02/15/19 History Furosemide [Lasix] 20 mg PO DAILY 01/10/19 02/15/19 History OXcarbazepine [Trileptal] 300 mg PO BID 01/10/19 02/15/19 History Rosuvastatin [Crestor] 20 mg PO HS 01/10/19 02/15/19 History OXcarbazepine [Trileptal] 150 mg PO DAILY PRN 02/15/19 02/15/19 History metFORMIN HCL [metFORMIN HCL ER] 750 mg PO BID 02/15/19 02/15/19 History Allergies Allergy/AdvReac Type Severity Reaction Status Date / Time codeine AdvReac Nausea & Verified 02/16/19 00:56 Vomiting sitagliptin [From ] AdvReac frequent Verified 02/15/19 19:13 UTI Surgical - Exam Vital Signs Temp Pulse Resp BP Pulse Ox 99.2 F 73 18 172/89 97 02/15/19 18:41 02/15/19 18:41 02/15/19 18:41 02/15/19 18:41 02/15/19 18:41 General appearance: The patient is alert, oriented, in no acute distress. HET: Head is normocephalic and atraumatic. Pupils are equal and reactive. Oropharynx is clear without lesions. Neck: Supple without lymphadenopathy. Trachea midline. Heart: S1 S2. Regular rate and rhythm. Lungs: No crackles or wheezes are heard. Abdomen: Soft, nontender, nondistended with bowel sounds. No peritoneal signs. No palpable organomegaly or masses. Extremities: Normal skin color and turgor. Left lower extremity with mild edema, fifth toe distally with necrotic black tissue/ulcer on plantar and medial side, great toe with ulceration along medial and lateral side, with redness across left dorsal side of foot, negative doppler signals DP or PT, positive popliteal. Positive multiphasic doppler signal of right DP and PT, with no swelling, does have small abrasion on right marshall. Neurological: No focal deficits. Strength and sensation are grossly intact. Results - Labs 02/17/19 10:41 02/17/19 10:41 Abnormal Lab Results - Last 24 Hours (Table) 02/16/19 02/16/19 02/17/19 Range/Units 17:14 21:09 07:11 Lymphocytes # (1.0-4.8) k/uL Chloride (98-107) mmol/L Glucose (74-99) mg/dL POC Glucose (mg/dL) 142 H 274 H 222 H (75-99) mg/dL 02/17/19 02/17/19 02/17/19 Range/Units 10:41 10:41 11:37 Lymphocytes # 0.7 L (1.0-4.8) k/uL Chloride 109 H (98-107) mmol/L Glucose 194 H (74-99) mg/dL POC Glucose (mg/dL) 209 H (75-99) mg/dL Microbiology - Last 24 Hours (Table) 02/15/19 23:55 Gram Stain - Preliminary Toe - Left Fifth Wound Culture - Preliminary Gram Neg Bacilli 02/15/19 23:33 Blood Culture - Preliminary Blood No Growth after 24 hours Diabetes panel 02/17/19 Range/Units 10:41 Sodium 141 (137-145) mmol/L Potassium 4.1 (3.5-5.1) mmol/L Chloride 109 H (98-107) mmol/L Carbon Dioxide 24 (22-30) mmol/L BUN 14 (7-17) mg/dL Creatinine 0.78 (0.52-1.04) mg/dL Glucose 194 H (74-99) mg/dL Calcium 8.6 (8.4-10.2) mg/dL Calcium panel 02/17/19 Range/Units 10:41 Calcium 8.6 (8.4-10.2) mg/dL Pituitary panel 02/17/19 Range/Units 10:41 Sodium 141 (137-145) mmol/L Potassium 4.1 (3.5-5.1) mmol/L Chloride 109 H (98-107) mmol/L Carbon Dioxide 24 (22-30) mmol/L BUN 14 (7-17) mg/dL Creatinine 0.78 (0.52-1.04) mg/dL Glucose 194 H (74-99) mg/dL Calcium 8.6 (8.4-10.2) mg/dL Adrenal panel 02/17/19 Range/Units 10:41 Sodium 141 (137-145) mmol/L Potassium 4.1 (3.5-5.1) mmol/L Chloride 109 H (98-107) mmol/L Carbon Dioxide 24 (22-30) mmol/L BUN 14 (7-17) mg/dL Creatinine 0.78 (0.52-1.04) mg/dL Glucose 194 H (74-99) mg/dL Calcium 8.6 (8.4-10.2) mg/dL Assessment and Plan Assessment: 1. Left lower extremity with critical limb ischemia with gangrene on 5th and great toe 2. Left foot ulcer and right marshall cellulitis with no evidence of osteomyelitis and bone scan 3. Diabetes mellitus type II 4. Possible sepsis present on admission secondary to cellulitis 5. History of diabetic peripheral neuropathy 6. Coronary artery disease, stent 7. Pacemaker Plan: Continue current medications. Follow-up with infectious disease. Plan on clear liquids today with nothing by mouth after midnight for angiogram and possible atherectomy tomorrow with Dr. Aguilera. Continue to hold Plavix and Eliquis. The above dictated assessment and findings were discussed with Dr. Bellamy. The impression and plan of care have been directed as dictated.
[2019-02-17 16:48] LABS: Glucose,Whole Blood 258 mg/dL (75-99)
[2019-02-17 20:55] LABS: Glucose,Whole Blood 220 mg/dL (75-99)
[2019-02-17] MEDS: ATORVASTATIN 40 MG TAB PO SCH (21:34)
[2019-02-17] MEDS: MONTELUKAST 10 MG TAB PO SCH (21:34)
[2019-02-17] MEDS: Liraglutide [Victoza 2-Pak] 1.8 MG SQ SCH (21:36)
[2019-02-17] MEDS: ALPRAZolam 0.25 MG TAB PO SCH (21:39)
--- NOTE | 2019-02-17 22:36 | P.PN ---
Subjective Progress Note Date: 02/17/19 Patient is a 79-year-old female with a past medical history significant for chronic nonhealing wound to the left fifth toe medial side and on the medial side of the right big toe for which the patient follow with Dr. Rose at [facility] wound care center, patient has been brought into the right [facility] for evaluation of generalized weakness and some confusion patient denies having any headache or URI symptoms no chest pain shortness of breath or cough denies having any abdominal pain patient did have discoloration of the left fifth toe medial side wound and she has been complaining of some dull aching pain with intensity about 5-10 to the left foot wound area however the patient denies having any purulent drainage or any foul- smelling patient has been afebrile and her white count has been normal patient did have a bowl skin no pain and she was negative for any osteo-myelitis to the left foot patient has been treated with vancomycin and Zosyn infectious disease was consulted for further recommendation regarding antibiotic therapy 02/17/2019 patient is continued to have pain and discomfort to her left leg. She's been evaluated by her vascular surgeon and there are plans for further intervention is the ongoing blockage of the left leg and evidence of the dry gangrenous change of the fifth toe and ongoing ulcerations to the great toe. Bone scan was performed without evidence of tevin osteomyelitis. The overall plans will be further delineated as she has had her next set of procedures to determine what the vascular surgeons final plan will be. Objective - Vital Signs Vital signs: Vital Signs Temp 98.2 F 02/17/19 22:18 Pulse 67 02/17/19 22:18 Resp 20 02/17/19 22:18 BP 148/77 02/17/19 22:18 Pulse Ox 95 02/17/19 22:18 Intake & Output 02/17/19 02/17/19 02/18/19 06:59 18:59 06:59 Intake Total 240 Balance 240 Weight 78 kg Intake: Oral 240 Other: Voiding Method Toilet Toilet # Voids 2 4 - Exam Pleasant woman somewhat uncomfortable not in severe pain HEENT: Anicteric conjunctiva are pink and moist nasal mucosa grossly intact without significant lesions, there is no thrush. Neck: The neck is supple without significant lymphadenopathy or thyromegaly. Lungs: Good bilateral air entry without significant crackles or wheezing. There is no significant bronchial sounds. There is no egophony or dullness. Heart: Regular rate and rhythm with an audible S1-S2, no S3 no S4. There is no significant murmur click or rub, PMI was nondisplaced. Abdomen: Positive bowel sounds soft and nontender without palpable masses or organomegaly. There was no guarding or rebound. Extremities: The upper extremities have evidence of the lack of any acute lesions. Right lower extremity is cool not cold no open ulcerations. Left fluctuant shows evidence of the prior noted dry gangrenous changes to the distal aspect of the fifth toe and the ulceration medially and laterally on the great toe there are for thickness ulceration without purulence. There is some mild cellulitis to the foot Neuro: Awake alert oriented to person place and time. There are no acute new gross focal sensory motor deficits. - Labs CBC & Chem 7: 02/17/19 10:41 02/17/19 10:41 Labs: Abnormal Lab Results - Last 24 Hours (Table) 02/17/19 02/17/19 02/17/19 Range/Units 07:11 10:41 10:41 Lymphocytes # 0.7 L (1.0-4.8) k/uL Chloride 109 H (98-107) mmol/L Glucose 194 H (74-99) mg/dL POC Glucose (mg/dL) 222 H (75-99) mg/dL 02/17/19 02/17/19 02/17/19 Range/Units 11:37 16:46 20:26 Lymphocytes # (1.0-4.8) k/uL Chloride (98-107) mmol/L Glucose (74-99) mg/dL POC Glucose (mg/dL) 209 H 258 H 220 H (75-99) mg/dL Microbiology - Last 24 Hours (Table) 02/15/19 23:55 Gram Stain - Preliminary Toe - Left Fifth Wound Culture - Preliminary Gram Neg Bacilli 02/15/19 23:33 Blood Culture - Preliminary Blood No Growth after 24 hours Laboratory Results WBC 5.5 k/uL (3.8-10.6) 02/17/19 10:41 RBC 4.36 m/uL (3.80-5.40) 02/17/19 10:41 Hgb 12.4 gm/dL (11.4-16.0) 02/17/19 10:41 Hct 39.9 % (34.0-46.0) 02/17/19 10:41 MCV 91.6 fL (80.0-100.0) 02/17/19 10:41 MCH 28.4 pg (25.0-35.0) 02/17/19 10:41 MCHC 31.0 g/dL (31.0-37.0) 02/17/19 10:41 RDW 14.8 % (11.5-15.5) 02/17/19 10:41 Plt Count 201 k/uL (150-450) 02/17/19 10:41 Neutrophils % 75 % 02/17/19 10:41 Lymphocytes % 12 % 02/17/19 10:41 Monocytes % 7 % 02/17/19 10:41 Eosinophils % 3 % 02/17/19 10:41 Basophils % 1 % 02/17/19 10:41 Neutrophils # 4.1 k/uL (1.3-7.7) 02/17/19 10:41 Lymphocytes # 0.7 k/uL (1.0-4.8) L 02/17/19 10:41 Monocytes # 0.4 k/uL (0-1.0) 02/17/19 10:41 Eosinophils # 0.2 k/uL (0-0.7) 02/17/19 10:41 Basophils # 0.0 k/uL (0-0.2) 02/17/19 10:41 Hypochromasia Moderate 02/17/19 10:41 PT 11.5 sec (9.0-12.0) 02/15/19 Unknown INR 1.1 (<1.2) 02/15/19 Unknown APTT 23.3 sec (22.0-30.0) 02/15/19 Unknown Sodium 141 mmol/L (137-145) 02/17/19 10:41 Potassium 4.1 mmol/L (3.5-5.1) 02/17/19 10:41 Chloride 109 mmol/L (98-107) H 02/17/19 10:41 Carbon Dioxide 24 mmol/L (22-30) 02/17/19 10:41 Anion Gap 8 mmol/L 02/17/19 10:41 BUN 14 mg/dL (7-17) 02/17/19 10:41 Creatinine 0.78 mg/dL (0.52-1.04) 02/17/19 10:41 Est GFR (CKD-EPI)AfAm 84 (>60 ml/min/1.73 sqM) 02/17/19 10:41 Est GFR (CKD-EPI)NonAf 73 (>60 ml/min/1.73 sqM) 02/17/19 10:41 Glucose 194 mg/dL (74-99) H 02/17/19 10:41 POC Glucose (mg/dL) 220 mg/dL (75-99) H 02/17/19 20:26 POC Glu Tax Appraiser ID Sarai Fisher 02/17/19 20:26 Plasma Lactic Acid [place] 1.4 mmol/L (0.7-2.0) 02/15/19 Unknown Calcium 8.6 mg/dL (8.4-10.2) 02/17/19 10:41 Ionized Calcium [place] 4.9 mg/dL (4.5-5.3) 02/15/19 Unknown Magnesium 1.9 mg/dL (1.6-2.3) 02/15/19 Unknown Total Bilirubin 0.9 mg/dL (0.2-1.3) 02/15/19 Unknown AST 26 U/L (14-36) 02/15/19 Unknown ALT 22 U/L (9-52) 02/15/19 Unknown Alkaline Phosphatase 111 U/L (38-126) 02/15/19 Unknown Troponin I <0.012 ng/mL (0.000-0.034) 02/15/19 Unknown Total Protein 6.8 g/dL (6.3-8.2) 02/15/19 Unknown Albumin 4.0 g/dL (3.5-5.0) 02/15/19 Unknown Urine Color Yellow 02/15/19 20:02 Urine Appearance Clear (Clear) 02/15/19 20: Urine pH 5.5 (5.0-8.0) 02/15/19 20:02 Ur Specific [place] 1.030 (1.001-1.035) 02/15/19 20:02 Urine Protein 1+ (Negative) H 02/15/19 20:02 Urine Glucose (UA) 4+ (Negative) H 02/15/19 20:02 Urine Ketones 3+ (Negative) H 02/15/19 20:02 Urine Blood Negative (Negative) 02/15/19 20:02 Urine Nitrite Negative (Negative) 02/15/19 20:02 Urine Bilirubin Negative (Negative) 02/15/19 20:02 Urine Urobilinogen <2.0 mg/dL (<2.0) 02/15/19 20:02 Ur Leukocyte Esterase Negative (Negative) 02/15/19 20:02 Urine RBC 2 /hpf (0-5) 02/15/19 20:02 Urine WBC 2 /hpf (0-5) 02/15/19 20:02 Ur Squamous Epith Cells 1 /hpf (0-4) 02/15/19 20:02 Urine Mucus Rare /hpf (None) H 02/15/19 20:02 Microbiology 02/15/19 23:55 Toe - Left Fifth Gram Stain - Preliminary 02/15/19 23:55 Toe - Left Fifth Wound Culture - Preliminary Gram Neg Bacilli 02/15/19 23:33 Blood Blood Culture - Preliminary No Growth after 24 hours 02/15/19 23:55 Toe - Left Fifth Anaerobic Culture - Preliminary Assessment and Plan (1) Diabetic foot ulcer Narrative/Plan: 79-year-old woman presents to Hospital as worsening to her left foot with increased pain and ongoing difficulties with the severe peripheral vascular disease status post interventions. She is evidence of a cellulitis the foot which is increasing her pain. Cultures now showing evidence some gram-negative bacilli and will transition antibiotic therapy to Zosyn. Local wound care has been with the therahoney dressing. 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 It the ulcers of the great toe will expect with improved vascular flow that these will start to heal. Bone scan did not reveal evidence of significant osteomyelitis, but there is diminished blood flow. Current Visit: Yes Status: Acute Code(s): E11.621 - TYPE 2 DIABETES MELLITUS WITH FOOT ULCER; L97.509 - NON-PRESSURE CHRONIC ULCER OTH PRT UNSP FOOT W UNSP SEVERITY SNOMED Code(s): 039191510 (2) Atherosclerosis of [place] arteries of extremities with rest pain, right leg Current Visit: No Status: Acute Code(s): I70.221 - ATHSCL [place] ARTERIES OF EXTREMITIES W REST PAIN, RIGHT LEG SNOMED Code(s): 642585633101024 (3) COPD (chronic obstructive pulmonary disease) Current Visit: No Status: Acute Code(s): J44.9 - CHRONIC OBSTRUCTIVE PULMONARY DISEASE, UNSPECIFIED SNOMED Code(s): 26139917
[2019-02-18] MEDS ORDERED: HYDROcodone/APAP 5-325MG 1 EACH TAB ONE (01:30)
[2019-02-18] MEDS: SODIUM CHLORIDE 0.9% 1,000 ML IV SCH ×3 (05:47→21:15)
[2019-02-18] MEDS: PIPERACILLIN-TAZOBACTAM 3.375 GM in SODIUM CHLORIDE 0.9% 100 ML IVPB SCH ×4 (06:13→23:32)
[2019-02-18 07:31] LABS: Glucose,Whole Blood 213 mg/dL (75-99)
[2019-02-18] MEDS: INSULIN ASPART (NovoLOG) 100 UNIT/ML VIAL SQ SCH ×4 (07:37→21:23)
[2019-02-18] MEDS: PANTOPRAZOLE 40 MG TABLET PO SCH (07:37)
[2019-02-18] MEDS: VANCOMYCIN 1,250 MG in SODIUM CHLORIDE 0.9% 250 ML IVPB SCH (07:51)
[2019-02-18] MEDS ORDERED: IV FLUID CONTINUATION 1,000 ML IV ONE (07:51)
[2019-02-18] MEDS ORDERED: KETAMINE 10 MG/ML 20 ML VIAL ONE (07:53)
[2019-02-18] MEDS ORDERED: fentaNYL (PF) 50 MCG/ML 2 ML AMP ONE (07:53)
[2019-02-18] MEDS ORDERED: MIDAZOLAM 2 MG/2 ML VIAL ONE (07:53)
[2019-02-18] MEDS ORDERED: HEPARIN SODIUM,PORCINE 5,000 UNIT/ML 1 ML VIAL ONE (07:53)
[2019-02-18] MEDS ORDERED: PROPOFOL 10 MG/ML 20 ML VIAL IV ONE (07:53)
[2019-02-18] MEDS ORDERED: LIDOCAINE 1% INJ 10MG/ML (20 ML MDV) SQ ONE (08:04)
[2019-02-18] MEDS ORDERED: LACTATED RINGERS 1,000 ML IV ONE (08:30)
[2019-02-18] MEDS ORDERED: ALTEPLASE BOLUS 1 MG/1 ML SYRINGE IV STA (08:48)
[2019-02-18] MEDS ORDERED: IOPAMIDOL-250 50ML BTL INTRAARTER ONE ×2 (08:59)
[2019-02-18] MEDS ORDERED: SODIUM CHLORIDE 0.9% 100 ML with ALTEPLASE 10 MG IA ONE ×2 (09:00)
[2019-02-18] MEDS ORDERED: HEPARIN SOD,PORK IN 0.45% NACL 25,000 UNIT in 0.45% NACL 1 250ML.BAG IV ONE (09:15)
--- NOTE | 2019-02-18 09:20 | P.OP ---
Date of Procedure: 02/18/19 Preoperative Diagnosis: 1. Left lower extremity critical limb ischemia with gangrene of the fifth and great toe 2. Left superficial femoral artery occlusion with reconstitution at the popliteal artery. 3. Left tibioperoneal trunk occlusion with reconstitution of the peroneal artery with one-vessel runoff to the ankle Postoperative Diagnosis: 1. Left lower extremity critical limb ischemia with fifth and great toe gangrene 2. Left superficial femoral, popliteal, tibioperoneal trunk acute on chronic occlusion possible thrombosis Procedure(s) Performed: 1. Left lower extremity selective femoropopliteal and tibioperoneal angiogram 2. Initiation of thrombolytic lysis with placement of thrombolytic catheter at the superficial femoral artery 3. Ultrasound-guided right common femoral artery access Anesthesia: MAC, local Surgeon: Ibrahima Aguilera Estimated Blood Loss (ml): 5 Pathology: none sent Condition: stable Disposition: ICU Indications for Procedure: 79-year-old female who is well known to the office with history of lower extremity peripheral arterial disease, claudication and previous interventions for critical limb ischemia presents to the [facility] for left lower extremity angiogram with possible revascularization. Patient was scheduled previously to undergo intervention after a recent hospitalization 3-4 weeks ago for wounds on her left foot. She underwent CTA at that time which demonstrated occlusion of the superficial femoral artery with reconstitution of the popliteal as well as occlusion of the tibioperoneal trunk with reconstitution of the peroneal artery. She was scheduled at that time for intervention and had to be canceled due to other emergencies and was rescheduled the following week which was once again rescheduled due to snow and patient inability to get to the hospital. She recently was admitted to the hospital over the weekend secondary to cellulitis and worsening gangrene of the left foot. She presents to the [facility] for selective angiogram and possible revascularization. Operative Findings: Left superficial femoral artery [employer] with no evidence of reconstitution of the previous popliteal artery site as well as occlusion of the tibioperoneal trunk and peroneal artery with reconstitution at the mid lower leg. Description of Procedure: After written informed consent was obtained the patient all risks benefits competitions were described the patient is brought to the [facility] and laid in a supine position. The area of the groins were prepped and draped in usual sterile fashion after appropriate anesthetic was performed per the anesthesiologist. A timeout was performed in normal fashion and antibiotics were administered. Utilizing ultrasound the right common femoral artery was located and shown to be patent without any significant calcification. A mu ltipurpose needle and Seldinger technique was then utilized to place a 5-[place] sheath. Sheath was assessed for patency injured flushed easily. 035 Glidewire advantage was then placed into the aorta followed by a RBI catheter. Selective angiogram was then obtained of the left lower extremity after patient was administered 5000 units of heparin. There was a sharp cutoff noted at the superficial femoral artery with collaterals filling down towards the lower leg. 035 Glidewire advantage was once again placed and a 7-[place] RAABE sheath was guided over the wire just above the superficial femoral artery takeoff. Once again selective angiograms were obtained demonstrating brisk cutoff with collateralization noted around the entirety of the popliteal and tibial peroneal trunk which was previously seen on CAT scan and is now since that time occluded. Wire was advanced slightly and shown to access the SFA with ease leading to believe this blockage could be potentially acute on chronic thrombus. Due to the fact there is no distal landing zones for bypass and patient would likely require above-knee amputation it was determined to place a thrombolytic catheter at this time and performed on the lysis for the next 12-24 hours to see if any distal arteries could be visualized. A 90 cm 4-[place] straight catheter was then placed at the proximal aspect of the occlusion and thrombin lysis was initiated. The sheath was then sutured in place with silk suture. The area was cleansed and dressings were placed. Patient was tied procedure well was sent to ICU for recovery.
[2019-02-18] MEDS ORDERED: SODIUM CHLORIDE 0.9% IV SCH (09:30)
[2019-02-18] MEDS ORDERED: ALTEPLASE IV SCH (09:30)
[2019-02-18 09:35] LABS: Glucose,Whole Blood 192 mg/dL (75-99)
[2019-02-18] MEDS: CYANOCOBALAMIN 500 MCG TAB PO SCH ×2 (10:20→21:18)
[2019-02-18] MEDS: LOSARTAN 50 MG TAB PO SCH (10:20)
[2019-02-18] MEDS: FUROSEMIDE 20 MG TAB PO SCH (10:20)
[2019-02-18] MEDS: CHOLECALCIFEROL 1,000 UNIT TAB PO SCH ×2 (10:28→21:18)
[2019-02-18] MEDS: PREGABALIN 75 MG CAP PO SCH ×2 (10:28→21:24)
[2019-02-18 11:43] LABS: Glucose,Whole Blood 169 mg/dL (75-99)
[2019-02-18] MEDS: IPRATROPIUM-ALBUTEROL 3 ML NEB INHALATION SCH ×2 (11:50→21:05)
[2019-02-18] MEDS: Dapagliflozin Propanediol [Farxiga] 5 MG PO SCH (11:52)
[2019-02-18] MEDS: Metformin Hcl [Metformin Hcl Er] 750 MG PO SCH ×2 (11:52→21:54)
[2019-02-18] MEDS: ACETAMINOPHEN TAB 500 MG TAB PO PRN ×2 (12:02→21:31)
[2019-02-18 12:20] LABS: African American GFR (CKD) >90 (>60 ml/min/1.73 sqM); Anion Gap 7 mmol/L; Blood Urea Nitrogen 17 mg/dL (7-17); Calcium 8.7 mg/dL (8.4-10.2); Carbon Dioxide 27 mmol/L (22-30); Chloride 108 mmol/L (98-107); Glucose 177 mg/dL (74-99); Non-African American GFR(CKD) 85 (>60 ml/min/1.73 sqM); Potassium 3.9 mmol/L (3.5-5.1); Sodium 142 mmol/L (137-145)
[2019-02-18 12:24] LABS: Basophils % (A) 1 %; Eosinophils # (A) 0.2 k/uL (0-0.7); Eosinophils % (A) 3 %; HCT 40.1 % (34.0-46.0); HGB 12.6 gm/dL (11.4-16.0); Hypochromasia Moderate; Lymphocytes # (A) 1.2 k/uL (1.0-4.8); Lymphocytes % (A) 22 %; MCH 28.9 pg (25.0-35.0); MCHC 31.5 g/dL (31.0-37.0); MCV 91.8 fL (80.0-100.0); Mean Platelet Volume 7.6; Monocytes # (A) 0.4 k/uL (0-1.0); Monocytes % (A) 7 %; Neutrophils # (A) 3.4 k/uL (1.3-7.7); Neutrophils % (A) 64 %; Platelet Count 210 k/uL (150-450); RBC 4.37 m/uL (3.80-5.40); RDW 14.9 % (11.5-15.5); WBC 5.3 k/uL (3.8-10.6)
[2019-02-18 12:44] LABS: Partial Thromboplastin Time 32.7 sec (22.0-30.0); Prothrombin Time 11.1 sec (9.0-12.0)
[2019-02-18] MEDS: OXcarbazepine 300 MG TAB PO SCH ×2 (12:57→21:53)
[2019-02-18] MEDS: CLEVIDIPINE BUTYRATE 25 MG in EMPTY BAG 1 BAG IV SCH ×3 (13:45→21:35)
--- NOTE | 2019-02-18 14:29 | P.CNPUL ---
History of Present Illness Consult date: 02/18/19 Requesting physician: Ibrahima Aguilera Reason for consult: other Chief complaint: Pain in left foot digits History of present illness: 78-year-old female patient of Dr. Giraldo with past medical history of diabetes mellitus, COPD, previous myocardial infarction, chronic congestive heart failure, chronic A. fib flutter, permanent pacemaker insertion, coronary artery disease with previous stenting, osteoarthritis, severe peripheral vascular disease with previous interventions, and history of nonhealing wounds on her left fifth toe and right big toe, for which patient follows at the wound care center. Patient also has [id number] smoking history, quit smoking 3 months ago. Patient follows with Dr. Aguilera on an outpatient basis for PVD, and she was scheduled for outpatient vascular surgery today on 02/18/2019 for atherectomy of the left lower extremity. However she was having increasing pain in the toes of her left foot, couldn't walk much, she was increasingly more weak, and has patient presented to the hospital for evaluation. No complaints of shortness of breath, no chest pain, no nausea vomiting or diarrhea, no fever or chills, CBC on admission was unremarkable, metabolic panel was negative. She did have mild anion gap acidosis on admission. Hemodynamically stable. Ur inalysis showed 4+ glucose and ketones, but negative for signs of infection, troponin was negative 1, lactic acid was at 1.4, LFTs were within normal limits B1 is 20 creatinine 0.63. Chest x-ray showed stable cardiomegaly, diffuse interstitial changes that appear to be chronic, no acute process was seen. Bone scan showed no convincing scintigraphic evidence for osteomyelitis on the left lower extremity. Patient has been started on broad-spectrum antibiotics, was evaluated by vascular surgery, arterial Dopplers in December showed moderate to severe femoral popliteal disease. And today on 02/18/2019 patient had left lower extremity selective femoral popliteal and tibial peroneal angiogram and initiation of thrombolytic lysis with thrombolytic catheter at the superficial femoral artery. Patient is seen in the intensive care unit, following the procedure, awake and alert, no acute distress, she is on alteplase infusion at 10 ML per hour for the right groin catheter at the proximal aspect of the occlusion Review of Systems All systems: negative Constitutional: Denies chills, Denies fever Eyes: denies blurred vision, denies pain Ears, nose, mouth and throat: Denies headache, Denies sore throat Cardiovascular: Denies chest pain, Denies shortness of breath Respiratory: Denies cough Gastrointestinal: Denies abdominal pain, Denies diarrhea, Denies nausea, Denies vomiting Genitourinary: Denies dysuria, Denies hematuria Musculoskeletal: Denies myalgias Musculoskeletal: left: foot pain Integumentary: Reports sores, Reports wounds, Denies pruritus, Denies rash Neurological: Reports weakness, Denies numbness Psychiatric: Denies anxiety, Denies depression Endocrine: Denies fatigue, Denies weight change Past Medical History Past Medical History: Heart Failure, Diabetes Mellitus, Myocardial Infarction (IA), COPD, Diabetes Mellitus, Myocardial Infarction (IA), Osteoarthritis (OA), Skin Disorder, Vascular Disorder Additional Past Medical History / Comment(s): Leg pain, Trigeminal Neuralgia, Diabetic Neuropathy, [place] 1994, ROSCACEA Last Myocardial Infarction Date:: 1994 History of Any Multi-Drug Resistant Organisms: None Reported Past Surgical History: Appendectomy, Cholecystectomy, Heart Catheterization With Stent, Hysterectomy, Orthopedic Surgery, Pacemaker Additional Past Surgical History / Comment(s): Arthrectomy rt leg, Angioplasty, Pacemaker August 2016, left Foot Surgery, one heart stent Past Anesthesia/Blood Transfusion Reactions: No Reported Reaction Date of Last Stent Placement:: 1994 Type of Cardiac Device: Permanent Pacemaker Device Placement Date:: August 2016 Past Psychological History: No Psychological Hx Reported Additional Psychological History / Comment(s): 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 No experience. No travel. No animal exposures Smoking Status: Former smoker Past Alcohol Use History: None Reported Additional Past Alcohol Use History / Comment(s): pt states she stopped smoking 3 months ago. Started smoking in 1952. Past Drug Use History: None Reported - Past Family History Father Family Medical History: Myocardial Infarction (IA) Mother Family Medical History: Congestive Heart Failure (CHF), CVA/TIA, Diabetes Mellitus Medications and Allergies Home Medications Medication Instructions Recorded Confirmed Type ALPRAZolam [Xanax] 0.25 mg PO HS 09/16/16 02/15/19 History Ipratropium-Albuterol Nebulize 3 ml INHALATION BID 09/16/16 02/15/19 History [Duoneb 0.5 mg-3 mg/3 ml Soln] Montelukast [Singulair] 10 mg PO HS #30 tab 09/20/16 02/15/19 Rx Budesonide-Formot 160-4.5 Mcg 2 puff INHALATION RT-BID PRN 10/05/16 02/15/19 History [Symbicort 160-4.5 Mcg Inhaler] Cholecalciferol [Vitamin D3 (25 5,000 unit PO BID 07/18/17 02/15/19 History Mcg = 1000 Iu)] Cyanocobalamin (Vitamin B-12) 1,000 mcg PO BID 07/18/17 02/15/19 History [Vitamin B-12] Dapagliflozin Propanediol [Farxiga] 5 mg PO DAILY 07/18/17 02/15/19 History Losartan [Cozaar] 50 mg PO QAM 07/18/17 02/15/19 History Acetaminophen [Tylenol Extra 500 mg PO Q6HR PRN 07/20/17 02/15/19 History Strength] Pregabalin [Lyrica] 150 mg PO BID cap 02/01/18 02/15/19 Rx Liraglutide [Victoza 2-Orlin] 1.8 mg SQ HS 12/26/18 02/15/19 History Apixaban [Eliquis] 5 mg PO BID tab 12/27/18 02/15/19 Rx Clopidogrel [Plavix] 75 mg PO DAILY 01/10/19 02/15/19 History Furosemide [Lasix] 20 mg PO DAILY 01/10/19 02/15/19 History OXcarbazepine [Trileptal] 300 mg PO BID 01/10/19 02/15/19 History Rosuvastatin [Crestor] 20 mg PO HS 01/10/19 02/15/19 History OXcarbazepine [Trileptal] 150 mg PO DAILY PRN 02/15/19 02/15/19 History metFORMIN HCL [metFORMIN HCL ER] 750 mg PO BID 02/15/19 02/15/19 History Allergies Allergy/AdvReac Type Severity Reaction Status Date / Time codeine AdvReac Nausea & Verified 02/16/19 00:56 Vomiting sitagliptin [From ] AdvReac frequent Verified 02/15/19 19:13 UTI Physical Exam Vitals: Vital Signs Temp Pulse Pulse Resp BP BP Pulse Ox 02/18/19 13:00 60 16 154/83 92 L 02/18/19 12:30 66 18 159/91 89 L 02/18/19 12:15 65 13 159/91 90 L 02/18/19 12:00 60 22 123/99 99 02/18/19 11:59 64 02/18/19 11:53 60 02/18/19 11:45 60 19 149/82 95 02/18/19 11:30 60 12 150/82 95 02/18/19 11:15 60 10 L 170/102 91 L 02/18/19 11:00 60 23 176/109 93 L 02/18/19 10:45 66 14 180/96 100 02/18/19 10:30 59 L 16 167/86 94 L 02/18/19 10:15 59 L 9 L 172/82 96 02/18/19 10:00 61 17 178/85 95 02/18/19 09:45 97.5 F L 62 16 166/92 92 L 02/18/19 04:45 97.8 F 58 L 20 144/82 96 02/17/19 22:18 98.2 F 67 20 148/77 95 Intake and Output 02/17/19 02/18/19 02/18/19 22:59 06:59 14:59 Intake Total 440 0 953.75 Output Total 2024 Balance 440 0 -1071.25 Intake: IV 503.75 Intake, IV Titration 450 Amount Piperacillin-Tazobactam 3 50 .375 gm In Sodium Chloride 0.9% 100 ml @ 25 mls/hr IVPB Q8HR [facility] Rx# :[id number] Sodium Chloride 0.9% 100 400 ml @ 10 mls/hr [place] .Q10H ONE with Alteplase 10 mg Rx#:[id number] Oral 440 0 Output: Urine 2024 Other: Voiding Method Toilet Indwelling Catheter # Voids 1 3 Weight 78 kg GENERAL EXAM: Alert, pleasant, 79-year-old female, on room air, with a pulse ox of 92% comfortable in no apparent distress. HEAD: Normocephalic/atraumatic. EYES: Normal reaction of pupils, equal size. Conjunctiva pink, sclera white. NOSE: Clear with pink turbinates. THROAT: No erythema or exudates. NECK: No masses, no JVD, no thyroid enlargement, no adenopathy. CHEST: No chest wall deformity. Symmetrical expansion. LUNGS: Equal air entry with no crackles, wheeze, rhonchi or dullness. CVS: Regular rate and rhythm, normal S1 and S2, no gallops, no murmurs, no rubs ABDOMEN: Soft, nontender. No hepatosplenomegaly, normal bowel sounds, no guarding or rigidity. EXTREMITIES: No clubbing, no edema, no cyanosis, 2+ pulses and upper and lower extremities. Right groin sheath sutured in place, with TPA infusing through catheter in the right femoral artery at 1 mg per hour. Left pedal pulse is a very faint Doppler pulse, right pedal pulse is palpable. Left lower extremity is reddened MUSCULOSKELETAL: Muscle strength and tone normal. SPINE: No scoliosis or deformity SKIN: No rashes. Small dry ulcer on the great toe of the left foot with surrounding mild cellulitis of left lower extremity CENTRAL NERVOUS SYSTEM: Alert and oriented -3. No focal deficits, tone is n ormal in all 4 extremities. PSYCHIATRIC: Alert and oriented -3. Appropriate affect. Intact judgment and insight. Results - Laboratory Findings CBC and BMP: 02/18/19 11:46 02/18/19 11:46 PT/INR, D-dimer PT 11.1 sec (9.0-12.0) 02/18/19 11:46 INR 1.0 (<1.2) 02/18/19 11:46 Abnormal lab findings: Abnormal Labs 02/15/19 02/15/19 02/15/19 20:02 22:46 Unknown MCHC 30.4 L Lymphocytes # APTT Chloride Carbon Dioxide BUN Glucose POC Glucose (mg/dL) 142 H Urine Protein 1+ H Urine Glucose (UA) 4+ H Urine Ketones 3+ H Urine Mucus Rare H 02/15/19 02/16/19 02/16/19 Unknown 07:13 07:22 MCHC 30.7 L Lymphocytes # APTT Chloride 112 H Carbon Dioxide 17 L BUN 20 H Glucose 142 H POC Glucose (mg/dL) 140 H Urine Protein Urine Glucose (UA) Urine Ketones Urine Mucus 02/16/19 02/16/19 02/16/19 07:22 12:11 17:14 MCHC Lymphocytes # APTT Chloride 112 H Carbon Dioxide 18 L BUN 19 H Glucose 146 H POC Glucose (mg/dL) 177 H 142 H Urine Protein Urine Glucose (UA) Urine Ketones Urine Mucus 1102/17/19 02/17/19 21:09 07:11 10:41 MCHC Lymphocytes # 0.7 L APTT Chloride Carbon Dioxide BUN Glucose POC Glucose (mg/dL) 274 H 222 H Urine Protein Urine Glucose (UA) Urine Ketones Urine Mucus 02/17/19 02/17/19 02/17/19 10:41 11:37 16:46 MCHC Lymphocytes # APTT Chloride 109 H Carbon Dioxide BUN Glucose 194 H POC Glucose (mg/dL) 209 H 258 H Urine Protein Urine Glucose (UA) Urine Ketones Urine Mucus 02/17/19 02/18/19 02/18/19 20:26 07:26 09:34 MCHC Lymphocytes # APTT Chloride Carbon Dioxide BUN Glucose POC Glucose (mg/dL) 220 H 213 H 192 H Urine Protein Urine Glucose (UA) Urine Ketones Urine Mucus 02/18/19 02/18/19 02/18/19 11:42 11:46 11:46 MCHC Lymphocytes # APTT 32.7 H Chloride 108 H Carbon Dioxide BUN Glucose 177 H POC Glucose (mg/dL) 169 H Urine Protein Urine Glucose (UA) Urine Ketones Urine Mucus - Diagnostic Findings Chest x-ray: report reviewed, image reviewed Additional studies: Results of the bone scan, EKG reviewed Assessment and Plan Plan: Assessment: #1. Left lower extremity critical limb ischemia with fifth and great toe gangrene, status post left lower extremity angiogram and initiation of TPA infusion via thrombolytic catheter at the superficial femoral artery #2. Generalized weakness and dehydration, with the possibility of sepsis #3. History of nonhealing wounds on right and left foot follows at the wound care #4. History of severe peripheral vascular disease with previous intervention #5. Coronary artery disease with previous stenting #6. History of diabetes mellitus with peripheral neuropathy #7. History of chronic atrial fibrillation/A flutter and permanent pacemaker #8. History of congestive heart failure #9. Extensive history of smoking, currently in remission for the past 3 months, does carry [id number] smoking history #10. History of COPD, stable right now Plan: Hemodynamically stable, did have an episode of hypertension, and clevidipine was ordered, it was never started as a blood pressure started coming down after home meds were administered, TPA is infusing, Doppler pulse in the left lower extr emity, pain in the toes of the left foot is 2 out of 10 today, oral and breakthrough IV pain medications have been ordered, patient is fairly comfortable, her COPD stable, no shortness of breath, vital signs are stable, no fever or chills, infectious disease is following, patient is receiving IV ant ibiotics for left lower extremity cellulitis. Home meds have been reordered. We'll continue to follow with vascular surgery I performed a history & physical examination of the patient and discussed their management with my nurse practitioner, Jeanne Lama. I reviewed the nurse practitioner's note and agree with the documented findings and plan of care. Lung sounds are positive for clear breath sounds. The findings and the impression was discussed with the patient. I attest to the documentation by the nurse practitioner. Time with Patient: Greater than 30
[2019-02-18 16:39] LABS: Glucose,Whole Blood 372 mg/dL (75-99)
[2019-02-18] MEDS: LACTATED RINGERS 1,000 ML IV SCH (16:50)
--- NOTE | 2019-02-18 17:04 | PN ---
PROGRESS NOTE DATE OF SERVICE: 02/18/2019 This 79-year-old woman who was admitted with left foot diabetic ulcer as well as right marshall cellulitis is being closely monitored. The patient has multiple lesions on the left foot. Dr. Aguilera, the vascular surgeon, performed left lower extremity selective femoral-popliteal and tibioperoneal angiogram and initiation of thrombolytic lysis with placement of thrombolytic catheter in the superficial femoral artery and ultrasound- guided access as well. The patient had left lower extremity critical limb ischemia with fifth and great toe gangrene. Left superficial femoral, popliteal and tibioperoneal trunk were showing possible acute on chronic occlusion and possible thrombosis as well. The patient was given TPA. The patient has been transferred to ICU at this time. The patient is being closely monitored at this time. The culture showed Enterobacter cloacae. The patient is on broad-spectrum IV antibiotics. Infectious Disease and multiple consultants are following the patient closely at this time. Past medical history reviewed. REVIEW OF SYSTEMS: CARDIOVASCULAR SYSTEM: No angina, palpitations. RESPIRATORY SYSTEM: No cough, hemoptysis. GI: As mentioned earlier. NAUSEA : No dysuria or retention. EXTREMITIES: As mentioned earlier. CURRENT MEDICATIONS: Reviewed. They include: 1. Tylenol p.r.n. 2. Paramount 5 mg q.6 p.r.n. 3. DuoNeb q.i.d. and p.r.n. 4. Xanax 0.25 at bedtime. 5. Lipitor 40 mg at bedtime. 6. Symbicort 160/4.5 two puffs b.i.d. 7. Vitamin D3. 8. Clevidipine 25 mg drip. 9. Vitamin B12 1000 mcg b.i.d. 10.Lasix 20 mg p.o. daily. 11.NovoLog before meals and at bedtime. 12.Lactated Ringer. 13.Cozaar. 14.Singulair. 15.Morphine sulfate. 16.Narcan. 17.Metformin. 18.Farxiga 5 mg p.o. daily. 19.Victoza 1.8 at bedtime. 20.Trileptal 300 mg p.o. b.i.d. 21.Zosyn 3.375 q.i.d. 22.Lyrica 150 mg p.o. b.i.d. 23.Restoril 15 mg at bedtime p.r.n. PHYSICAL EXAMINATION: Patient is alert, oriented x3. Pulse is 60, blood pressure 135/90, respiration 14, temperature normal, pulse ox 94% on room air. HEENT: Conjunctivae normal. Oral mucosa moist. NECK: No jugular venous distention. No carotid bruit. No lymph node enlargement. CARDIOVASCULAR SYSTEM: S1, S2 muffled. RESPIRATORY SYSTEM: Breath sounds diminished at the bases. No rhonchi. No crackles. ABDOMEN: Soft, non-tender. LEGS: Left leg status post procedure and significant ischemic ulceration and gangrene of the fifth toe as well as the big toe also present. SKIN: As mentioned earlier. JOINTS: No active deforming arthropathy. LABS: CBC within normal limits. Sodium 142, potassium 3.9. Glucose noted. ASSESSMENT: 1. Left foot diabetic ulcer as well as right marshall cellulitis with left limb critical limb ischemia. 2. Enterobacter cloacae from the wound. 3. Status post angiogram and tPA infusion and initiation of thrombolytic lysis. 4. Possible sepsis, present on admission, secondary to cellulitis. 5. Decreased carbon dioxide with metabolic acidosis, present on admission. 6. Diabetes mellitus, type 2. 7. Generalized weakness and dehydration, present on admission, possibly secondary to sepsis. 8. History of congestive heart failure; ejection fraction unknown. 9. History of diabetes mellitus, type 2. 10.History of myocardial infarction. 11.History of chronic obstructive pulmonary disease. 12.Degenerative joint disease. 13.History of back pain. 14.History of trigeminal neuralgia. 15.History of diabetic peripheral neuropathy. 16.History of coronary artery disease and stent. 17.History of pacemaker. 18.FULL CODE. RECOMMENDATIONS AND DISCUSSION: In this 79-year-old woman who presented with multiple complex medical issues, we will monitor the patient closely, continue the current medications, continue symptomatic treatment. Continue with the tPA protocol. Monitor closely in the ICU. Continue with current medications. Continue with the empiric antibiotics, symptomatic treatment. Continue the rest of the medications. Prognosis guarded because of multiple complex medical conditions. Further recommendations to follow. MMODL / IJN: [id number] / MTDD
[2019-02-18 17:05] LABS: Glucose,Whole Blood 321 mg/dL (75-99)
[2019-02-18] MEDS: INSULIN DETEMIR (LEVEMIR) 100 UNIT/ML SYR SQ SCH (17:52)
[2019-02-18] MEDS: HYDROcodone/APAP 5-325MG 1 EACH TAB PO PRN (18:07)
--- NOTE | 2019-02-18 19:39 | P.PN ---
Subjective Progress Note Date: 02/18/19 Patient is a 79-year-old female with a past medical history significant for chronic nonhealing wound to the left fifth toe medial side and on the medial side of the right big toe for which the patient follow with Dr. Rose at [facility] wound care center, patient has been brought into the right [facility] for evaluation of generalized weakness and some confusion patient denies having any headache or URI symptoms no chest pain shortness of breath or cough denies having any abdominal pain patient did have discoloration of the left fifth toe medial side wound and she has been complaining of some dull aching pain with intensity about 5-10 to the left foot wound area however the patient denies having any purulent drainage or any foul- smelling patient has been afebrile and her white count has been normal patient did have a bowl skin no pain and she was negative for any osteo-myelitis to the left foot patient has been treated with vancomycin and Zosyn infectious disease was consulted for further recommendation regarding antibiotic therapy 02/17/2019 patient is continued to have pain and discomfort to her left leg. She's been evaluated by her vascular surgeon and there are plans for further intervention is the ongoing blockage of the left leg and evidence of the dry gangrenous change of the fifth toe and ongoing ulcerations to the great toe. Bone scan was performed without evidence of tevin osteomyelitis. The overall plans will be further delineated as she has had her next set of procedures to determine what the vascular surgeons final plan will be. 02/18/2019 the patient is status post the attempted vascular procedure however she is now on TPA via catheter to the left lower extremity try to improve opening for further procedure attempt tomorrow. Relates that she is comfortable and looks forward to having some dinner. She denies fevers or chills. Objective - Vital Signs Vital signs: Vital Signs Temp 97.9 F 02/18/19 15:30 Pulse 66 02/18/19 19:00 Resp 18 02/18/19 19:00 BP 153/85 02/18/19 19:00 Pulse Ox 94 L 02/18/19 19:00 Intake & Output 02/18/19 02/18/19 02/19/19 06:59 18:59 06:59 Intake Total 200 1623.75 115 Output Total 2850 175 Balance 200 -1226.25 -60 Intake: IV 503.75 Intake, IV Titration 1120 115 Amount Heparin Sod,Pork in 0.45% 40 5 NaCl 25,000 unit In 0.45 % NaCl 1 250ml.bag @ 0 mls/hr IV .[facility]K-[facility] Rx #:[id number] Piperacillin-Tazobactam 3 100 .375 gm In Sodium Chloride 0.9% 100 ml @ 25 mls/hr IVPB Q8HR [facility] Rx# :[id number] Sodium Chloride 0.9% 100 80 10 ml @ 10 mls/hr IA .Q10H ONE with Alteplase 10 mg Rx#:[id number] Sodium Chloride 0.9% 100 900 100 ml @ 10 mls/hr IA .Q10H [facility] with Alteplase 10 mg Rx#:[id number] Oral 200 Output: Urine 2850 175 Other: Voiding Method Indwelling Catheter # Voids 3 - Exam Pleasant woman somewhat uncomfortable not in severe pain HEENT: Anicteric conjunctiva are pink and moist nasal mucosa grossly intact without significant lesions, there is no thrush. Neck: The neck is supple without significant lymphadenopathy or thyromegaly. Lungs: Good bilateral air entry without significant crackles or wheezing. There is no significant bronchial sounds. There is no egophony or dullness. Heart: Regular rate and rhythm with an audible S1-S2, no S3 no S4. There is no significant murmur click or rub, PMI was nondisplaced. Abdomen: Positive bowel sounds soft and nontender without palpable masses or organomegaly. There was no guarding or rebound. Extremities: The upper extremities have evidence of the lack of any acute lesions. Right lower extremity is cool not cold no open ulcerations. Left fluctuant shows evidence of the prior noted dry gangrenous changes to the distal aspect of the fifth toe and the ulceration medially and laterally on the great toe there are for thickness ulceration without purulence. There is some mild cellulitis to the foot Neuro: Awake alert oriented to person place and time. There are no acute new gross focal sensory motor deficits. - Labs CBC & Chem 7: 02/18/19 11:46 02/18/19 11:46 Labs: Abnormal Lab Results - Last 24 Hours (Table) 02/17/19 02/18/19 02/18/19 Range/Units 20:26 07:26 09:34 APTT (22.0-30.0) sec Chloride (98-107) mmol/L Glucose (74-99) mg/dL POC Glucose (mg/dL) 220 H 213 H 192 H (75-99) mg/dL 02/18/19 02/18/19 02/18/19 Range/Units 11:42 11:46 11:46 APTT 32.7 H (22.0-30.0) sec Chloride 108 H (98-107) mmol/L Glucose 177 H (74-99) mg/dL POC Glucose (mg/dL) 169 H (75-99) mg/dL 02/18/19 02/18/19 Range/Units 16:37 17:03 APTT (22.0-30.0) sec Chloride (98-107) mmol/L Glucose (74-99) mg/dL POC Glucose (mg/dL) 372 H 321 H (75-99) mg/dL Microbiology - Last 24 Hours (Table) 02/15/19 23:55 Anaerobic Culture - Preliminary Toe - Left Fifth 02/15/19 23:55 Gram Stain - Final Toe - Left Fifth Wound Culture - Final Enterobacter cloacae 02/15/19 23:33 Blood Culture - Preliminary Blood No Growth after 48 hours Laboratory Results WBC 5.3 k/uL (3.8-10.6) 02/18/19 11:46 RBC 4.37 m/uL (3.80-5.40) 02/18/19 11:46 Hgb 12.6 gm/dL (11.4-16.0) 02/18/19 11:46 Hct 40.1 % (34.0-46.0) 02/18/19 11:46 MCV 91.8 fL (80.0-100.0) 02/18/19 11:46 MCH 28.9 pg (25.0-35.0) 02/18/19 11:46 MCHC 31.5 g/dL (31.0-37.0) 02/18/19 11:46 RDW 14.9 % (11.5-15.5) 02/18/19 11:46 Plt Count 210 k/uL (150-450) 02/18/19 11:46 Neutrophils % 64 % 02/18/19 11:46 Lymphocytes % 22 % 02/18/19 11:46 Monocytes % 7 % 02/18/19 11:46 Eosinophils % 3 % 02/18/19 11:46 Basophils % 1 % 02/18/19 11:46 Neutrophils # 3.4 k/uL (1.3-7.7) 02/18/19 11:46 Lymphocytes # 1.2 k/uL (1.0-4.8) 02/18/19 11:46 Monocytes # 0.4 k/uL (0-1.0) 02/18/19 11:46 Eosinophils # 0.2 k/uL (0-0.7) 02/18/19 11:46 Basophils # 0.0 k/uL (0-0.2) 02/18/19 11:46 Manual Slide Review Performed 02/18/19 11:46 Hypochromasia Moderate 02/18/19 11:46 PT 11.1 sec (9.0-12.0) 02/18/19 11:46 INR 1.0 (<1.2) 02/18/19 11:46 APTT 32.7 sec (22.0-30.0) H 02/18/19 11:46 Fibrinogen 350 mg/dL (200-500) 02/18/19 11:46 Sodium 142 mmol/L (137-145) 02/18/19 11:46 Potassium 3.9 mmol/L (3.5-5.1) 02/18/19 11:46 Chloride 108 mmol/L (98-107) H 02/18/19 11:46 Carbon Dioxide 27 mmol/L (22-30) 02/18/19 11:46 Anion Gap 7 mmol/L 02/18/19 11:46 BUN 17 mg/dL (7-17) 02/18/19 11:46 Creatinine 0.65 mg/dL (0.52-1.04) 02/18/19 11:46 Est GFR (CKD-EPI)AfAm >90 (>60 ml/min/1.73 sqM) 02/18/19 11:46 Est GFR (CKD-EPI)NonAf 85 (>60 ml/min/1.73 sqM) 02/18/19 11:46 Glucose 177 mg/dL (74-99) H 02/18/19 11:46 POC Glucose (mg/dL) 321 mg/dL (75-99) H 02/18/19 17:03 POC Glu Assembler Faucets Genet Hernandez 02/18/19 17:03 Plasma Lactic Acid Naveen 1.4 mmol/L (0.7-2.0) 02/15/19 Unknown Calcium 8.7 mg/dL (8.4-10.2) 02/18/19 11:46 Ionized Calcium Kylah 4.9 mg/dL (4.5-5.3) 02/15/19 Unknown Magnesium 1.9 mg/dL (1.6-2.3) 02/15/19 Unknown Total Bilirubin 0.9 mg/dL (0.2-1.3) 02/15/19 Unknown AST 26 U/L (14-36) 02/15/19 Unknown ALT 22 U/L (9-52) 02/15/19 Unknown Alkaline Phosphatase 111 U/L (38-126) 02/15/19 Unknown Troponin I <0.012 ng/mL (0.000-0.034) 02/15/19 Unknown Total Protein 6.8 g/dL (6.3-8.2) 02/15/19 Unknown Albumin 4.0 g/dL (3.5-5.0) 02/15/19 Unknown Urine Color Yellow 02/15/19 20:02 Urine Appearance Clear (Clear) 02/15/19 20:02 Urine pH 5.5 (5.0-8.0) 02/15/19 20:02 Ur Specific [place] 1.030 (1.001-1.035) 02/15/19 20:02 Urine Protein 1+ (Negative) H 02/15/19 20:02 Urine Glucose (UA) 4+ (Negative) H 02/15/19 20:02 Urine Ketones 3+ (Negative) H 02/15/19 20:02 Urine Blood Negative (Negative) 02/15/19 20: Urine Nitrite Negative (Negative) 02/15/19 20: Urine Bilirubin Negative (Negative) 02/15/19 20: Urine Urobilinogen <2.0 mg/dL (<2.0) 02/15/19 20:02 Ur Leukocyte Esterase Negative (Negative) 02/15/19 20:02 Urine RBC 2 /hpf (0-5) 02/15/19 20:02 Urine WBC 2 /hpf (0-5) 02/15/19 20:02 Ur Squamous Epith Cells 1 /hpf (0-4) 02/15/19 20:02 Urine Mucus Rare /hpf (None) H 02/15/19 20:02 Vancomycin Trough 10.7 ug/mL 02/18/19 11:46 Blood Type O Positive 02/18/19 11:46 Blood Type Confirm O Positive 02/17/19 10:41 Blood Type Recheck No Previous Record 02/18/19 11:46 Bld Type Recheck Status CABO Indicated 02/18/19 11:46 Antibody Screen NEGATIVE 02/18/19 11:46 Spec Expiration Date 02/21/2019 - 2346 02/18/19 11:46 Microbiology 02/15/19 23:55 Toe - Left Fifth Anaerobic Culture - Preliminary 02/15/19 23:55 Toe - Left Fifth Gram Stain - Final 02/15/19 23:55 Toe - Left Fifth Wound Culture - Final Enterobacter cloacae 02/15/19 23:33 Blood Blood Culture - Preliminary No Growth after 48 hours Assessment and Plan (1) Diabetic foot ulcer Narrative/Plan: 79-year-old woman presents to Hospital as worsening to her left foot with increased pain and ongoing difficulties with the severe peripheral vascular disease status post interventions. She is evidence of a cellulitis the foot which is increasing her pain. Cultures now showing evidence some gram-negative bacilli and will transition antibiotic therapy to Zosyn. Local wound care has been with the therahoney dressing. 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 It the ulcers of the great toe will expect with improved vascular flow that these will start to heal. Bone scan did not reveal evidence of significant osteomyelitis, but there is diminished blood flow. 02/18/2019 the patient has had the first intervention performed by the vascular surgeon today, currently has TPA infusing with the attempt for new procedure again tomorrow. Wound cultures show Enterobacter which is susceptible to Zosyn is also anaerobic bacteria which also makes self-selected choice. I will continue for now await the final outcome for the vascular surgery interventions. Current Visit: Yes Status: Acute Code(s): E11.621 - TYPE 2 DIABETES MELLITUS WITH FOOT ULCER; L97.509 - NON-PRESSURE CHRONIC ULCER OTH PRT UNSP FOOT W UNSP SEVERITY SNOMED Code(s): 779357119 (2) Atherosclerosis of [place] arteries of extremities with rest pain, right leg Current Visit: No Status: Acute Code(s): I70.221 - ATHSCL [place] ARTERIES OF EXTREMITIES W REST PAIN, RIGHT LEG SNOMED Code(s): 859985718635834 (3) COPD (chronic obstructive pulmonary disease) Current Visit: No Status: Acute Code(s): J44.9 - CHRONIC OBSTRUCTIVE PULMONARY DISEASE, UNSPECIFIED SNOMED Code(s): 30014861
[2019-02-18 20:25] LABS: Glucose,Whole Blood 223 mg/dL (75-99)
[2019-02-18] MEDS: SODIUM CHLORIDE 0.9% 100 ML with ALTEPLASE 10 MG IA ONE ×2 (21:14)
[2019-02-18] MEDS: ALPRAZolam 0.25 MG TAB PO SCH (21:16)
[2019-02-18] MEDS: ATORVASTATIN 40 MG TAB PO SCH (21:18)
[2019-02-18 21:24] LABS: Glucose,Whole Blood 188 mg/dL (75-99)
[2019-02-18] MEDS: MONTELUKAST 10 MG TAB PO SCH (21:24)
[2019-02-18] MEDS: Liraglutide [Victoza 2-Pak] 1.8 MG SQ SCH (21:54)
[2019-02-18] MEDS: MORPHINE SULFATE 2 MG/ML SYRINGE IVP PRN (23:20)
[2019-02-19] MEDS: HYDROcodone/APAP 5-325MG 1 EACH TAB PO PRN ×4 (01:15→22:59)
[2019-02-19] MEDS: SODIUM CHLORIDE 0.9% 100 ML with ALTEPLASE 10 MG IA ONE ×2 (01:41)
[2019-02-19 04:57] LABS: Basophils # (A) 0.1 k/uL (0-0.2); Basophils % (A) 1 %; Eosinophils # (A) 0.2 k/uL (0-0.7); Eosinophils % (A) 3 %; HGB 11.6 gm/dL (11.4-16.0); Hypochromasia Marked; Lymphocytes # (A) 1.2 k/uL (1.0-4.8); Lymphocytes % (A) 20 %; MCH 28.2 pg (25.0-35.0); MCHC 30.7 g/dL (31.0-37.0); Mean Platelet Volume 6.5; Monocytes # (A) 0.5 k/uL (0-1.0); Monocytes % (A) 9 %; Neutrophils % (A) 64 %; Platelet Count 229 k/uL (150-450); RBC 4.13 m/uL (3.80-5.40); RDW 14.5 % (11.5-15.5); WBC 6.2 k/uL (3.8-10.6)
[2019-02-19 05:18] LABS: African American GFR (CKD) >90 (>60 ml/min/1.73 sqM); Anion Gap 5 mmol/L; Blood Urea Nitrogen 17 mg/dL (7-17); Calcium 8.3 mg/dL (8.4-10.2); Carbon Dioxide 23 mmol/L (22-30); Chloride 111 mmol/L (98-107); Glucose 149 mg/dL (74-99); Non-African American GFR(CKD) 86 (>60 ml/min/1.73 sqM); Potassium 3.9 mmol/L (3.5-5.1); Sodium 139 mmol/L (137-145)
[2019-02-19 05:41] LABS: Partial Thromboplastin Time 22.8 sec (22.0-30.0); Prothrombin Time 11.1 sec (9.0-12.0)
[2019-02-19 06:55] LABS: Glucose,Whole Blood 143 mg/dL (75-99)
[2019-02-19] MEDS: INSULIN ASPART (NovoLOG) 100 UNIT/ML VIAL SQ SCH ×4 (07:47→21:03)
[2019-02-19] MEDS: PIPERACILLIN-TAZOBACTAM 3.375 GM in SODIUM CHLORIDE 0.9% 100 ML IVPB SCH ×3 (07:47→23:03)
[2019-02-19] MEDS: SODIUM CHLORIDE 0.9% 1,000 ML IV SCH ×2 (07:48→15:54)
[2019-02-19] MEDS: PANTOPRAZOLE 40 MG TABLET PO SCH (07:54)
[2019-02-19] MEDS: CHOLECALCIFEROL 1,000 UNIT TAB PO SCH ×2 (07:56→21:09)
[2019-02-19] MEDS: LOSARTAN 50 MG TAB PO SCH (07:56)
[2019-02-19] MEDS: PREGABALIN 75 MG CAP PO SCH ×2 (07:56→21:05)
[2019-02-19] MEDS: CYANOCOBALAMIN 500 MCG TAB PO SCH ×2 (07:57→21:06)
[2019-02-19] MEDS: FUROSEMIDE 20 MG TAB PO SCH (07:57)
--- NOTE | 2019-02-19 08:11 | IR ---
Fluoroscopy HISTORY: Peripheral vascular occlusive disease 2.5 minutes fluoroscopy time supplied to the referring clinician. 204 intraoperative C-arm images do cument the procedure. See dictated report from vascular surgery.
[2019-02-19] MEDS: IPRATROPIUM-ALBUTEROL 3 ML NEB INHALATION SCH ×2 (08:13→20:43)
--- NOTE | 2019-02-19 08:16 | P.PN ---
Subjective Progress Note Date: 02/19/19 Patient seen and examined. Overall only complaint of back pain. No headaches or nausea. No abdominal pain. Leg pain through the evening but somewhat improved currently. She does state some numbness in her foot, still motor intact otherwise No acute distress No respiratory distress Abdomen soft Bilateral groins clean, dry, intact Left lower extremity with dusky cyanosis of the toes 1 through 4, dry gangrene fifth toe, weak monophasic DP signal. No calf tenderness. Delayed capillary refill Chronic left lower extremity ischemia, [place] 5 Currently undergoing TPA thrombolysis Plan for rechecked today with Dr. Aguilera. Further plan and recommendations to follow. Stable Hgb, fibrinogen 324 Objective - Vital Signs Vital signs: Vital Signs Temp 98.1 F 02/19/19 04:00 Pulse 60 02/19/19 07:00 Resp 21 02/19/19 07:00 BP 143/74 02/19/19 07:00 Pulse Ox 95 02/19/19 07:00 Intake & Output 02/18/19 02/19/19 02/19/19 18:59 06:59 18:59 Intake Total 1623.75 1252.134 100 Output Total 2850 930 75 Balance -1226.25 322.134 25 Weight 88.3 kg Intake: IV 503.75 1100 100 Sodium Chloride 0.9% 1, 1100 100 000 ml @ 100 mls/hr IV . Q10H [facility] Rx#:[id number] Intake, IV Titration 1120 152.134 Amount Clevidipine Butyrate 25 37.134 mg In Empty Bag 1 bag @ 1 MG/HR 2 mls/hr IV .Q24H [facility] Rx#:[id number] Heparin Sod,Pork in 0.45% 40 5 NaCl 25,000 unit In 0.45 % NaCl 1 250ml.bag @ 0 mls/hr IV .STK-MED ONE Rx #:[id number] Piperacillin-Tazobactam 3 100 .375 gm In Sodium Chloride 0.9% 100 ml @ 25 mls/hr IVPB Q8HR [facility] Rx# :[id number] Sodium Chloride 0.9% 100 80 10 ml @ 10 mls/hr IA .Q10H ONE with Alteplase 10 mg Rx#:[id number] Sodium Chloride 0.9% 100 900 100 ml @ 10 mls/hr IA .Q10H ONE with Alteplase 10 mg Rx#:[id number] Output: Urine 2850 930 75 Other: Voiding Method Indwelling Catheter Indwelling Catheter - Labs CBC & Chem 7: 02/19/19 04:37 02/19/19 04:37 Labs: Abnormal Lab Results - Last 24 Hours (Table) 02/18/19 02/18/19 02/18/19 Range/Units 09:34 11:42 11:46 MCHC (31.0-37.0) g/dL APTT (22.0-30.0) sec Chloride 108 H (98-107) mmol/L Glucose 177 H (74-99) mg/dL POC Glucose (mg/dL) 192 H 169 H (75-99) mg/dL Calcium (8.4-10.2) mg/dL 02/18/19 02/18/19 02/18/19 Range/Units 11:46 16:37 17:03 MCHC (31.0-37.0) g/dL APTT 32.7 H (22.0-30.0) sec Chloride (98-107) mmol/L Glucose (74-99) mg/dL POC Glucose (mg/dL) 372 H 321 H (75-99) mg/dL Calcium (8.4-10.2) mg/dL 02/18/19 02/18/19 02/19/19 Range/Units 20:24 21:22 04:37 MCHC 30.7 L (31.0-37.0) g/dL APTT (22.0-30.0) sec Chloride (98-107) mmol/L Glucose (74-99) mg/dL POC Glucose (mg/dL) 223 H 188 H (75-99) mg/dL Calcium (8.4-10.2) mg/dL 02/19/19 02/19/19 Range/Units 04:37 06:54 MCHC (31.0-37.0) g/dL APTT (22.0-30.0) sec Chloride 111 H (98-107) mmol/L Glucose 149 H (74-99) mg/dL POC Glucose (mg/dL) 143 H (75-99) mg/dL Calcium 8.3 L (8.4-10.2) mg/dL Microbiology - Last 24 Hours (Table) 02/15/19 23:33 Blood Culture - Preliminary Blood No Growth after 72 hours 02/15/19 23:55 Anaerobic Culture - Preliminary Toe - Left Fifth 02/15/19 23:55 Gram Stain - Final Toe - Left Fifth Wound Culture - Final Enterobacter cloacae
[2019-02-19] MEDS: Dapagliflozin Propanediol [Farxiga] 5 MG PO SCH (09:12)
[2019-02-19] MEDS: Metformin Hcl [Metformin Hcl Er] 750 MG PO SCH ×2 (09:12→20:01)
[2019-02-19] MEDS ORDERED: MIDAZOLAM 2 MG/2 ML VIAL ONE (10:16)
[2019-02-19] MEDS ORDERED: PROPOFOL 10 MG/ML 20 ML VIAL IV ONE (10:16)
[2019-02-19] MEDS ORDERED: HEPARIN SODIUM,PORCINE 5,000 UNIT/ML 1 ML VIAL ONE (10:16)
[2019-02-19] MEDS ORDERED: fentaNYL (PF) 50 MCG/ML 2 ML AMP ONE (10:16)
[2019-02-19] MEDS ORDERED: IV FLUID CONTINUATION 200 ML IV ONE (10:34)
[2019-02-19] MEDS ORDERED: LACTATED RINGERS 1,000 ML IV ONE (10:44)
--- NOTE | 2019-02-19 10:57 | P.PN ---
Subjective Progress Note Date: 02/19/19 Principal diagnosis: Pain and the toes of left foot, critical limb ischemia involving left lower extremity 78-year-old female patient of Dr. Giraldo with past medical history of diabetes mellitus, COPD, previous myocardial infarction, chronic congestive heart failure, chronic A. fib flutter, permanent pacemaker insertion, coronary artery disease with previous stenting, osteoarthritis, severe peripheral vascular disease with previous interventions, and history of nonhealing wounds on her left fifth toe and right big toe, for which patient follows at the wound care center. Patient also has [id number] smoking history, quit smoking 3 months ago. Patient follows with Dr. Aguilera on an outpatient basis for PVD, and she was scheduled for outpatient vascular surgery today on 02/18/2019 for atherectomy of the left lower extremity. However she was having increasing pain in the toes of her left foot, walk much, she was increasingly more weak, and has patient presented to the hospital for evaluation. No complaints of shortness of breath, no chest pain, no nausea vomiting or diarrhea, no fever or chills, CBC on admission was unremarkable, metabolic panel was negative. She did have mild anion gap acidosis on admission. Hemodynamically stable. Urinalysis showed 4+ glucose and ketones, but negative for signs of infection, troponin was negative 1, lactic acid was at 1.4, LFTs were within normal limits B1 is 20 creatinine 0.63. Chest x-ray showed stable cardiomegaly, diffuse interstitial changes that appear to be chronic, no acute process was seen. Bone scan showed no convincing scintigraphic evidence for osteomyelitis on the left lower extremity. Patient has been started on broad-spectrum antibiotics, was evaluated by vascular surgery, arterial Dopplers in December showed moderate to severe femoral popliteal disease. And today on 02/18/2019 patient had left lower extremity selective femoral popliteal and tibial peroneal angiogram and initiation of thrombolytic lysis with thrombolytic catheter at the superficial femoral artery. Patient is seen in the intensive care unit, following the procedure, awake and alert, no acute distress, she is on alteplase infusion at 10 ML per hour for the right groin catheter at the proximal aspect of the occlusion On 02/19/2019 patient seen in follow-up in the intensive care unit, she is awake and alert, in no acute distress, although she did have pain and discomfort in her left foot most of the night. There has been some numbness in her left foot. Faint Doppler pulse in the left lower extremity, biliary refill, dusky cyanosis of her toes. Patient has a right groin sheath with TPA infusion overnight, she is going for repeat angiogram with Dr. Aguilera overnight and Dr. Mathews this morning. I'll signs remained stable overnight. Require Clofarex infusion briefly, but pressure is stable, patient is afebrile, remains on antibiotics for cellulitis involving the left lower extremity. Infectious disease is following, trigger of the left foot fifth toe was positive for Enterobacter cloacae she remains on Zosyn for antibiotic coverage. Objective - Vital Signs Vital signs: Vital Signs Temp 98.3 F 02/19/19 08:00 Pulse 60 02/19/19 10:00 Resp 12 02/19/19 10:00 BP 124/58 02/19/19 10:00 Pulse Ox 95 02/19/19 10:00 Intake & Output 02/18/19 02/19/19 02/19/19 18:59 06:59 18:59 Intake Total 1623.75 1252.134 563.533 Output Total 2850 930 725 Balance -1226.25 322.134 -161.467 Weight 88.3 kg Intake: IV 503.75 1100 500 Sodium Chloride 0.9% 1, 1100 300 000 ml @ 100 mls/hr IV . Q10H [facility] Rx#:[id number] Intake, IV Titration 1120 152.134 63.533 Amount Clevidipine Butyrate 25 37.134 38.533 mg In Empty Bag 1 bag @ 1 MG/HR 2 mls/hr IV .Q24H [facility] Rx#:[id number] Heparin Sod,Pork in 0.45% 40 5 NaCl 25,000 unit In 0.45 % NaCl 1 250ml.bag @ 0 mls/hr IV .STK-MED ONE Rx #:[id number] Piperacillin-Tazobactam 3 100 25 .375 gm In Sodium Chloride 0.9% 100 ml @ 25 mls/hr IVPB Q8HR [facility] Rx# :[id number] Sodium Chloride 0.9% 100 80 10 ml @ 10 mls/hr IA .Q10H [facility] with Alteplase 10 mg Rx#:[id number] Sodium Chloride 0.9% 100 900 100 ml @ 10 mls/hr IA .Q10H [facility] with Alteplase 10 mg Rx#:[id number] Output: Urine 2850 930 725 Other: Voiding Method Indwelling Catheter Indwelling Catheter Indwelling Catheter - Exam GENERAL EXAM: Alert, pleasant, 79-year-old female, on room air, with a pulse ox of 92% comfortable in no apparent distress. HEAD: Normocephalic/atraumatic. EYES: Normal reaction of pupils, equal size. Conjunctiva pink, sclera white. NOSE: Clear with pink turbinates. THROAT: No erythema or exudates. NECK: No masses, no JVD, no thyroid enlargement, no adenopathy. CHEST: No chest wall deformity. Symmetrical expansion. LUNGS: Equal air entry with no crackles, wheeze, rhonchi or dullness. CVS: Regular rate and rhythm, normal S1 and S2, no gallops, no murmurs, no rubs ABDOMEN: Soft, nontender. No hepatosplenomegaly, normal bowel sounds, no guarding or rigidity. EXTREMITIES: No clubbing, no edema, no cyanosis, 2+ pulses and upper and lower extremities. Right groin sheath sutured in place, with TPA infusing through catheter in the right femoral artery at 1 mg per hour. Left pedal pulse is a very faint Doppler pulse, right pedal pulse is palpable. Left lower extremity is reddened MUSCULOSKELETAL: Muscle strength and tone normal. SPINE: No scoliosis or deformity SKIN: No rashes. Small dry ulcer on the great toe of the left foot with surrounding mild cellulitis of left lower extremity CENTRAL NERVOUS SYSTEM: Alert and oriented -3. No focal deficits, tone is normal in all 4 extremities. PSYCHIATRIC: Alert and oriented -3. Appropriate affect. Intact judgment and insight. - Labs CBC & Chem 7: 02/19/19 04:37 02/19/19 04:37 Labs: Abnormal Lab Results - Last 24 Hours (Table) 02/18/19 02/18/19 02/18/19 Range/Units 11:42 11:46 11:46 MCHC (31.0-37.0) g/dL APTT 32.7 H (22.0-30.0) sec Chloride 108 H (98-107) mmol/L Glucose 177 H (74-99) mg/dL POC Glucose (mg/dL) 169 H (75-99) mg/dL Calcium (8.4-10.2) mg/dL 02/18/19 02/18/19 02/18/19 Range/Units 16:37 17:03 20:24 MCHC (31.0-37.0) g/dL APTT (22.0-30.0) sec Chloride (98-107) mmol/L Glucose (74-99) mg/dL POC Glucose (mg/dL) 372 H 321 H 223 H (75-99) mg/dL Calcium (8.4-10.2) mg/dL 02/18/19 02/19/19 02/19/19 Range/Units 21:22 04:37 04:37 MCHC 30.7 L (31.0-37.0) g/dL APTT (22.0-30.0) sec Chloride 111 H (98-107) mmol/L Glucose 149 H (74-99) mg/dL POC Glucose (mg/dL) 188 H (75-99) mg/dL Calcium 8.3 L (8.4-10.2) mg/dL 02/19/19 Range/Units 06:54 MCHC (31.0-37.0) g/dL APTT (22.0-30.0) sec Chloride (98-107) mmol/L Glucose (74-99) mg/dL POC Glucose (mg/dL) 143 H (75-99) mg/dL Calcium (8.4-10.2) mg/dL Microbiology - Last 24 Hours (Table) 02/15/19 23:33 Blood Culture - Preliminary Blood No Growth after 72 hours 02/15/19 23:55 Anaerobic Culture - Preliminary Toe - Left Fifth 02/15/19 23:55 Gram Stain - Final Toe - Left Fifth Wound Culture - Final Enterobacter cloacae Assessment and Plan Plan: Assessment: #1. Left lower extremity critical limb ischemia with fifth and great toe gangrene, status post left lower extremity angiogram and initiation of TPA infusion via thrombolytic catheter at the superficial femoral artery #2. Generalized weakness and dehydration, with the possibility of sepsis #3. History of nonhealing wounds on right and left foot follows at the wound care #4. History of severe peripheral vascular disease with previous intervention #5. Coronary artery disease with previous stenting #6. History of diabetes mellitus with peripheral neuropathy #7. History of chronic atrial fibrillation/A flutter and permanent pacemaker #8. History of congestive heart failure #9. Extensive history of smoking, currently in remission for the past 3 months, does carry [id number] smoking history #10. History of COPD, stable right now Plan: Encourage deep breathing and coughing, incentive spirometer, hemodynamically patient remains stable, she is going back to the OR for repeat angiogram of left lower extremity, continues with pain and numbness in her toes of the left foot, she maintained on TPA infusion overnight per right femoral catheter. Today's labs have been reviewed. No new chest x-rays, COPD stable, continue to follow, she will return to the intensive care unit after the procedure. I performed a history & physical examination of the patient and discussed their management with my nurse practitioner, Jeanne Lama. I reviewed the nurse practitioner's note and agree with the documented findings and plan of care. Lung sounds are positive for clear breath sounds. The findings and the impression was discussed with the patient. I attest to the documentation by the nurse practitioner. Time with Patient: Less than 30
[2019-02-19] MEDS ORDERED: IOPAMIDOL-250 100ML BTL INTRAARTER ONE ×2 (12:34→13:12)
--- NOTE | 2019-02-19 13:24 | P.OP ---
Date of Procedure: 02/19/19 Preoperative Diagnosis: 1. Left lower extremity critical limb ischemia with gangrene of the fifth and great toe 2. Left superficial femoral artery, tibioperoneal trunk and tibial artery occlusion status post thrombolysis Postoperative Diagnosis: 1. Left lower extremity critical limb ischemia with fifth and great toe gangrene 2. 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 Left lower extremity anterior tibial, posterior tibial artery occlusions with patent peroneal artery Procedure(s) Performed: 1. Left lower extremity selective femoral popliteal, tibialperoneal angiogram via the existing catheter 2. Percutaneous thrombectomy with penumbra cat 6 device 3. Percutaneous transluminal atherectomy of the left popliteal, tibioperoneal trunk with Hawk one S device 4. Percutaneous transluminal balloon angioplasty of the left superficial femoral artery 4 x 250 mm impact Adm. drug-eluting balloon 5. Percutaneous transluminal balloon angioplasty of the left popliteal artery 3 x 40 mm [place] balloon 6. Percutaneous transluminal balloon angioplasty of the left peroneal artery with 2.5 x 150 mm [place] balloon 7. Percutaneous transluminal stent placements across the superficial femoral and proximal popliteal artery with 6 x 150 mm ever Flex stent 8. Intravascular ultrasound of the superficial femoral, popliteal, tibioperoneal trunk and peroneal artery on the left Anesthesia: MAC Surgeon: Ibrahima Aguilera Estimated Blood Loss (ml): 250 IV fluids (ml): 900 Urine output (ml): 200 Pathology: none sent Condition: stable Disposition: ICU Indications for Procedure: 79-year-old female currently being treated with thrombin lytic therapy for SFA, popliteal and tibial artery occlusions presents back to the [facility] for repeat angiogram and possible revascularization. Patient had a slightly improved dorsalis pedis signal which was monophasic prior to the surgery. Operative Findings: Sites improvement of the SFA occlusion but no evidence of reconstitution of the popliteal or tibioperoneal trunk. There is reconstitution at the mid portion of the peroneal artery at the lower leg prior to revascularization. Description of Procedure: After written informed consent was obtained the patient all risks benefits competitions were described the patient is brought to the [facility] and laid in a supine position the area of the existing catheter and the right groin was prepped and draped in usual sterile fashion after appropriate anesthetic was performed per the anesthesiologist. Timeout was performed in normal fashion. Utilizing the existing catheter and angiogram was obtained of the left lower extremity demonstrating marked cut off of the superficial femoral artery with multiple collaterals noted and reconstitution below the knee at the peroneal artery. Patient was administered heparin and followed with ACTs. There was no reconstitution visualized of the popliteal artery or the tibioperoneal trunk. At that time due to the fact that she would require amputation if we are unable to get blood flow to her foot who attempted to cross the lesion with an 014 commands wire and a 014 quick cross catheter. Multiple small angiograms were obtained throughout the procedure in attempt to cross the lesion. Meticulous wire control was performed and intraluminal access of the peroneal artery was obtained. Angiogram was performed through the 014 quick cross catheter which demonstrated us to be intraluminal. To verify intraluminal access throughout the occluded segments we placed a 014 IVUS catheter and pictures were obtained demonstrating good intraluminal access with evidence of thrombus throughout the entirety of the occluded segment of superficial femoral artery, popliteal and tibial peroneal trunk. There were some areas of stenosis and occlusion also noted with plaque burden. At that time was determined to perform a percutaneous thrombectomy with penumbra cat 6 device. The catheter was placed over the wire and suction thrombectomy was performed throughout the entirety of the superficial femoral, popliteal and left tibioperoneal trunk. Once completed angiogram was obtained demonstrating good intraluminal gain with some areas of plaque burden and calcification. This was at the tibioperoneal trunk and when compared to previous angiograms from 2 years ago it was determined that the patient would benefit from percutaneous atherectomy. A 6-Tajik small vessel Hawk one device was then utilized and 2 passes were performed across the popliteal and tibioperoneal trunk. Angiogram was once again obtained demonstrating improvement of the intraluminal gain and attention was then placed to balloon angioplasty. Utilizing a 2.5 x 150 mm balloon and balloon angioplasty was performed of the peroneal, tibioperoneal trunk and distal popliteal artery. A 4 x 250 mm impact balloon was then performed across the area of the distal popliteal extending up to the superficial femoral artery. Angiogram was once again obtained which demonstrated some areas of calcification and plaque around areas of collateralization. Due to this as well as the fact that she is acute on chronic thrombosis it was determined to place a stent at the proximal aspect of the popliteal artery just above the knee extending into the area of occlusion in the SFA. A 6 x150 mm ever Flex stent was placed across the lesion. Final angiogram was obtained demonstrating good brisk flow through the SFA, popliteal and tibial peroneal trunk with one-vessel runoff of the peroneal artery down to the foot. Guidewires and catheters were then removed the long sheath was removed and replaced with a short sheath due to a ACT being over 300. We will allow the heparin to dissipate and not give protamine for fea r of thrombosing the stent. The sheath were removed and the ICU. Patient tolerated procedure well had signals at the DP and PT at the conclusion of the procedure.
[2019-02-19 13:30] LABS: Glucose,Whole Blood 144 mg/dL (75-99)
[2019-02-19] MEDS: OXcarbazepine 300 MG TAB PO SCH ×2 (13:57→21:07)
[2019-02-19] MEDS: CLEVIDIPINE BUTYRATE 25 MG in EMPTY BAG 1 BAG IV SCH (14:08)
[2019-02-19 14:15] LABS: Hemoglobin A1C 9.2 % (4.0-6.0)
--- NOTE | 2019-02-19 14:51 | IR ---
Fluoroscopy HISTORY: Peripheral vascular occlusive disease 30.1 minutes fluoroscopy time supplied to the referring clinician. 6684 intraoperative C-arm images document the procedure. See dictated report from vascular surgery.
[2019-02-19] MEDS: LACTATED RINGERS 1,000 ML IV SCH (15:54)
[2019-02-19] MEDS ORDERED: HEPARIN SODIUM,PORCINE 5,000 UNIT/ML 1 ML VIAL IV PRN (16:28)
[2019-02-19] MEDS ORDERED: CLOPIDOGREL 75 MG TAB PO STA (16:54)
[2019-02-19 17:06] LABS: Glucose,Whole Blood 134 mg/dL (75-99)
[2019-02-19 17:43] LABS: Basophils % (A) 0 %; Eosinophils # (A) 0.2 k/uL (0-0.7); Eosinophils % (A) 3 %; HGB 11.5 gm/dL (11.4-16.0); Hypochromasia Moderate; Lymphocytes # (A) 1.1 k/uL (1.0-4.8); Lymphocytes % (A) 17 %; MCH 28.5 pg (25.0-35.0); MCV 91.9 fL (80.0-100.0); Mean Platelet Volume 7.3; Monocytes # (A) 0.5 k/uL (0-1.0); Monocytes % (A) 8 %; Neutrophils # (A) 4.3 k/uL (1.3-7.7); Neutrophils % (A) 68 %; Platelet Count 182 k/uL (150-450); RBC 4.03 m/uL (3.80-5.40); RDW 14.9 % (11.5-15.5); WBC 6.3 k/uL (3.8-10.6)
[2019-02-19 17:55] LABS: INR 1.1 (<1.2); Partial Thromboplastin Time 23.2 sec (22.0-30.0); Prothrombin Time 11.4 sec (9.0-12.0)
--- NOTE | 2019-02-19 17:59 | PN ---
PROGRESS NOTE DATE OF SERVICE: 02/19/2019 This 79-year-old woman who was admitted with left foot diabetic ulcer and right marshall cellulitis underwent intraarterial tPA administration by Dr. Aguilera. Today the patient underwent repeat angiogram as well as percutaneous thrombectomy and atherectomy with some return of some pulses, and the patient is monitored in the ICU at this time. There is no history of any fever, rigors or chills at this time. Past medical history reviewed. REVIEW OF SYSTEMS: CARDIOVASCULAR SYSTEM: No angina, palpitations. RESPIRATORY SYSTEM: As mentioned earlier. GI: As mentioned earlier. : No dysuria or retention. NERVOUS SYSTEM: No numbness, weakness. CURRENT MEDICATIONS: Reviewed. They include: 1. Tylenol p.r.n. 2. [place] 5 mg q.6 p.r.n. 3. DuoNeb q.i.d. and p.r.n. 4. Xanax 0.25 at bedtime. 5. Lipitor 40 mg at bedtime. 6. Symbicort 160/4.5 two puffs p.r.n. 7. Clevidipine drip. 8. Vitamin B12 1000 mg p.o. b.i.d. 9. Lasix 20 mg p.o. daily. 10.NovoLog before meals and at bedtime. 11.Levemir 25 units subcutaneously at bedtime. 12.Lactated Ringer. 13.Cozaar 50 mg each morning. 14.Singulair 10 mg at bedtime. 15.Morphine sulfate. 16.Narcan. 17.Metformin. 18.Farxiga 5 mg p.o. daily. 19.Victoza 1.8 mg subcutaneously at bedtime. 20.Trileptal 300 mg p.o. b.i.d. 21.Protonix. 22.Zosyn 3.375 IV q.6. 23.Restoril 15 mg at bedtime. PHYSICAL EXAMINATION: Patient is alert, oriented x3. Pulse is 80, blood pressure 140/67, respiration 11, temperature normal, pulse ox 94% on room air. HEENT: Conjunctivae normal. Oral mucosa moist. NECK: No jugular venous distention. No carotid bruit. No lymph node enlargement. CARDIOVASCULAR SYSTEM: S1, S2 muffled. RESPIRATORY SYSTEM: Breath sounds diminished at the bases. A few rhonchi. No crackles. ABDOMEN: Soft, non-tender. No mass palpable. LEGS: Status post angiography; otherwise gangrene and ischemic changes on the left foot present and right marshall ulcer also present. NERVOUS SYSTEM: No focal deficits. LABS: WBC 6.2, hemoglobin 11.7, glucose 149, and calcium is 8.3. ASSESSMENT: 1. Left foot diabetic ulcer as well as right marshall cellulitis with possible sepsis, present on admission. 2. Left limb critical limb ischemia, status post intraarterial tPA as well as angiography and atherectomy. 3. Enterobacter cloacae from the wound. 4. Decreased carbon dioxide and metabolic acidosis, present on admission, mild. 5. Diabetes mellitus, type 2. 6. Generalized weakness and dehydration, present on admission, possibly secondary to sepsis. 7. History of congestive heart failure; ejection fraction unknown. 8. History of myocardial infarction. 9. History of chronic obstructive pulmonary disease. 10.Degenerative joint disease. 11.History of back pain. 12.History of trigeminal neuralgia. 13.History of diabetic peripheral neuropathy. 14.History of coronary artery disease, stent. 15.History of pacemaker. 16.FULL CODE. RECOMMENDATIONS AND DISCUSSION: I recommend to continue current medications, continue with the monitoring, symptomatic treatment. Continue with antibiotics. Continue to monitor in ICU. Otherwise, repeat labs. Cultures are noted. Alteplase infusion was given yesterday. Otherwise, continue to monitor. Guarded prognosis. Further recommendations to follow. Continue the antibiotics. Closely follow with multiple consultants. MMCHRISTOPHERL / IJN: [id number] /
[2019-02-19] MEDS ORDERED: HEPARIN SOD,PORK IN 0.45% NACL 25,000 UNIT in 0.45% NACL 1 250ML.BAG IV SCH (19:00)
[2019-02-19] MEDS: Liraglutide [Victoza 2-Pak] 1.8 MG SQ SCH (20:01)
[2019-02-19 20:52] LABS: Glucose,Whole Blood 344 mg/dL (75-99)
[2019-02-19] MEDS: MORPHINE SULFATE 2 MG/ML SYRINGE IVP PRN (21:02)
[2019-02-19] MEDS: INSULIN DETEMIR (LEVEMIR) 100 UNIT/ML SYR SQ SCH (21:04)
[2019-02-19] MEDS: ALPRAZolam 0.25 MG TAB PO SCH (21:05)
[2019-02-19] MEDS: MONTELUKAST 10 MG TAB PO SCH (21:06)
[2019-02-19] MEDS: ATORVASTATIN 40 MG TAB PO SCH (21:09)
[2019-02-20] MEDS: SODIUM CHLORIDE 0.9% 1,000 ML IV SCH ×2 (01:51→12:12)
[2019-02-20 04:03] LABS: Glucose,Whole Blood 98 mg/dL (75-99)
[2019-02-20 06:38] LABS: Glucose,Whole Blood 101 mg/dL (75-99)
[2019-02-20] MEDS: INSULIN ASPART (NovoLOG) 100 UNIT/ML VIAL SQ SCH ×4 (06:38→21:20)
[2019-02-20] MEDS: PANTOPRAZOLE 40 MG TABLET PO SCH (06:57)
[2019-02-20] MEDS: PIPERACILLIN-TAZOBACTAM 3.375 GM in SODIUM CHLORIDE 0.9% 100 ML IVPB SCH ×3 (08:11→23:49)
[2019-02-20 08:14] LABS: Basophils % (A) 0 %; Eosinophils # (A) 0.2 k/uL (0-0.7); Eosinophils % (A) 2 %; Hypochromasia Moderate; Lymphocytes # (A) 1.2 k/uL (1.0-4.8); Lymphocytes % (A) 17 %; MCH 29.2 pg (25.0-35.0); MCHC 31.6 g/dL (31.0-37.0); MCV 92.2 fL (80.0-100.0); Mean Platelet Volume 7.6; Monocytes # (A) 0.6 k/uL (0-1.0); Monocytes % (A) 9 %; Neutrophils # (A) 4.6 k/uL (1.3-7.7); Neutrophils % (A) 68 %; Platelet Count 165 k/uL (150-450); RBC 3.36 m/uL (3.80-5.40); RDW 15.1 % (11.5-15.5); WBC 6.8 k/uL (3.8-10.6)
[2019-02-20 08:19] LABS: HGB 9.8 gm/dL (11.4-16.0)
[2019-02-20] MEDS: IPRATROPIUM-ALBUTEROL 3 ML NEB INHALATION SCH ×2 (08:28→20:32)
[2019-02-20 08:34] LABS: Calcium 8.7 mg/dL (8.4-10.2)
[2019-02-20 08:38] LABS: Potassium 5.1 mmol/L (3.5-5.1)
[2019-02-20] MEDS: CYANOCOBALAMIN 500 MCG TAB PO SCH ×2 (09:12→21:20)
[2019-02-20] MEDS: LOSARTAN 50 MG TAB PO SCH (09:12)
[2019-02-20] MEDS: CHOLECALCIFEROL 1,000 UNIT TAB PO SCH ×2 (09:12→21:20)
[2019-02-20] MEDS: Dapagliflozin Propanediol [Farxiga] 5 MG PO SCH (09:13)
[2019-02-20] MEDS: OXcarbazepine 300 MG TAB PO SCH ×2 (09:13→21:21)
[2019-02-20] MEDS: FUROSEMIDE 20 MG TAB PO SCH (09:13)
[2019-02-20] MEDS: Metformin Hcl [Metformin Hcl Er] 750 MG PO SCH ×2 (09:13→21:23)
[2019-02-20] MEDS: PREGABALIN 75 MG CAP PO SCH ×2 (09:16→21:20)
[2019-02-20] MEDS: APIXABAN 5 MG TAB PO SCH ×2 (09:16→21:20)
--- NOTE | 2019-02-20 10:57 | P.PN ---
Subjective Progress Note Date: 02/20/19 Patient seen and examined. Overall without any complaints. No chest pains or shortness of breath. Left foot feeling much better. No acute distress No respiratory distress Abdomen soft Bilateral groins clean, dry, intact, minimal ecchymosis of the right groin. No evidence of hematoma or pseudoaneurysm Left lower extremity much improved cyanosis, adequate capillary refill, dry gangrene fifth toe, monophasic DP and PT signal. No calf tenderness. Chronic left lower extremity ischemia, [place] 5 Status post TPA thrombolysis, atherectomy, angioplasty and stent placement Continue current therapies. Patient transitioned from heparin drip to Ellik was. Maintain Plavix and aspirin. Increase activity as tolerated. Discontinue Mathews. Okay to downgraded to selective. Hopeful for discharge in next 24 hours Objective - Vital Signs Vital signs: Vital Signs Temp 99.5 F 02/20/19 05:00 Pulse 63 02/20/19 10:00 Resp 17 02/20/19 10:00 BP 112/58 02/20/19 10:00 Pulse Ox 92 L 02/20/19 10:00 Intake & Output 02/19/19 02/20/19 02/20/19 18:59 06:59 18:59 Intake Total 2808.671 2820.028 487.095 Output Total 2275 545 125 Balance -054.189 1044.028 362.095 Weight 88.6 kg Intake: IV 1800 1200 400 Sodium Chloride 0.9% 1, 900 1200 400 000 ml @ 100 mls/hr IV . Q10H FRANTZ Rx#:[id number] Intake, IV Titration 189.067 169.028 87.095 Amount Clevidipine Butyrate 25 64.067 mg In Empty Bag 1 bag @ 1 MG/HR 2 mls/hr IV .Q24H FRANTZ Rx#:[id number] Heparin Sod,Pork in 0.45% 69.028 87.095 NaCl 25,000 unit In 0.45 % NaCl 1 250ml.bag @ 11. 33 UNITS/KG/HR 10.004 mls /hr IV .Q24H FRANTZ Rx#: [id number] Piperacillin-Tazobactam 3 125 100 .375 gm In Sodium Chloride 0.9% 100 ml @ 25 mls/hr IVPB Q8HR FRANTZ Rx# :[id number] Oral 480 Output: Urine 1225 545 125 Other: Voiding Method Indwelling Catheter Indwelling Catheter - Labs CBC & Chem 7: 02/20/19 06:42 02/20/19 06:04 Labs: Abnormal Lab Results - Last 24 Hours (Table) 02/19/19 02/19/19 02/19/19 Range/Units 04:37 13:28 17:05 RBC (3.80-5.40) m/uL Hgb (11.4-16.0) gm/dL Hct (34.0-46.0) % APTT (22.0-30.0) sec Chloride (98-107) mmol/L Carbon Dioxide (22-30) mmol/L POC Glucose (mg/dL) 144 H 134 H (75-99) mg/dL Hemoglobin A1c 9.2 H (4.0-6.0) % 02/19/19 02/20/19 02/20/19 Range/Units 20:49 06:04 06:36 RBC (3.80-5.40) m/uL Hgb (11.4-16.0) gm/dL Hct (34.0-46.0) % APTT (22.0-30.0) sec Chloride 115 H (98-107) mmol/L Carbon Dioxide 21 L (22-30) mmol/L POC Glucose (mg/dL) 344 H 101 H (75-99) mg/dL Hemoglobin A1c (4.0-6.0) % 02/20/19 02/20/19 Range/Units 06:42 06:42 RBC 3.36 L (3.80-5.40) m/uL Hgb 9.8 L D (11.4-16.0) gm/dL Hct 31.0 L (34.0-46.0) % APTT >200.0 H* (22.0-30.0) sec Chloride (98-107) mmol/L Carbon Dioxide (22-30) mmol/L POC Glucose (mg/dL) (75-99) mg/dL Hemoglobin A1c (4.0-6.0) % Microbiology - Last 24 Hours (Table) 02/15/19 23:33 Blood Culture - Preliminary Blood No Growth after 96 hours
--- NOTE | 2019-02-20 11:03 | P.PN ---
Subjective Progress Note Date: 02/20/19 78-year-old female patient of Dr. Giraldo with past medical history of diabetes mellitus, COPD, previous myocardial infarction, chronic congestive heart failure, chronic A. fib flutter, permanent pacemaker insertion, coronary artery disease with previous stenting, osteoarthritis, severe peripheral vascular disease with previous interventions, and history of nonhealing wounds on her left fifth toe and right big toe, for which patient follows at the wound care center. Patient also has [id number] smoking history, quit smoking 3 months ago. Patient follows with Dr. Aguilera on an outpatient basis for PVD, and she was scheduled for outpatient vascular surgery today on 02/18/2019 for atherectomy of the left lower extremity. However she was having increasing pain in the toes of her left foot, walk much, she was increasingly more weak, and has patient presented to the hospital for evaluation. No complaints of shortness of breath, no chest pain, no nausea vomiting or diarrhea, no fever or chills, CBC on admission was unremarkable, metabolic panel was negative. She did have mild anion gap acidosis on admission. Hemodynamically stable. Urinalysis showed 4+ glucose and ketones, but negative for signs of infection, troponin was negative 1, lactic acid was at 1.4, LFTs were within normal limits B1 is 20 creatinine 0.63. Chest x-ray showed stable cardiomegaly, diffuse interstitial changes that appear to be chronic, no acute process was seen. Bone scan showed no convincing scintigraphic evidence for osteomyelitis on the left lower extremity. Patient has been started on broad-spectrum antibiotics, was evaluated by vascular surgery, arterial Dopplers in December showed moderate to severe femoral popliteal disease. And today on 02/18/2019 patient had left lower extremity selective femoral popliteal and tibial peroneal angiogram and initiation of thrombolytic lysis with thrombolytic catheter at the superficial femoral artery. Patient is seen in the intensive care unit, following the procedure, awake and alert, no acute distress, she is on alteplase infusion at 10 ML per hour for the right groin catheter at the proximal aspect of the occlusion On 02/19/2019 patient seen in follow-up in the intensive care unit, she is awake and alert, in no acute distress, although she did have pain and discomfort in her left foot most of the night. There has been some numbness in her left foot. Faint Doppler pulse in the left lower extremity, biliary refill, dusky cyanosis of her toes. Patient has a right groin sheath with TPA infusion overnight, she is going for repeat angiogram with Dr. Aguilera overnight and Dr. Mahtews this morning. I'll signs remained stable overnight. Require Clofarex infusion briefly, but pressure is stable, patient is afebrile, remains on antibiotics for cellulitis involving the left lower extremity. Infectious disease is following, trigger of the left foot fifth toe was positive for Enterobacter cloacae she remains on Zosyn for antibiotic coverage. On 02/20/2019 I'm seeing the patient for a follow-up. The patient is looking better. Noted the patient was taken to the vascular lab yesterday and the patient underwent an angiogram and percutaneous thrombectomy and atherectomy and balloon angioplasty and subsequent stent was placed in the left popliteal area. Based on the surgical report a total of 3 different stents were placed in the fe moral/popliteal artery. Estimated blood loss was in the order of 2 50 mL. The patient came back to the ICU. She has improved pulses in the lower extremities and she has Doppler pulses dorsalis pedis and posterior tibialis. Her pain is improved. In terms of anticoagulation, she is on Eliquis and IV heparin was discontinued. She is also on Plavix. Once adequate at 6.8. Hemoglobin has dropped due to intraoperative blood loss and she is down to 9.8. Her blood pressures under good control and she is currently off Cleviprex. She is also on IV Zosyn for now. No other significant events overnight. Creatinine stable at 0.7. He is receiving IV fluids and currently she is IV to KVO. Objective - Vital Signs Vital signs: Vital Signs Temp 99.5 F 02/20/19 05:00 Pulse 63 02/20/19 10:00 Resp 17 02/20/19 10:00 BP 112/58 02/20/19 10:00 Pulse Ox 92 L 02/20/19 10:00 Intake & Output 02/19/19 02/20/19 02/20/19 18:59 06:59 18:59 Intake Total 3569.133 4873.028 487.095 Output Total 2275 545 125 Balance -667.630 2547.028 362.095 Weight 88.6 kg Intake: IV 1800 1200 400 Sodium Chloride 0.9% 1, 900 1200 400 000 ml @ 100 mls/hr IV . Q10H [facility]ANTZ Rx#:[id number] Intake, IV Titration 189.067 169.028 87.095 Amount Clevidipine Butyrate 25 64.067 mg In Empty Bag 1 bag @ 1 MG/HR 2 mls/hr IV .Q24H FRANTZ Rx#:[id number] Heparin Sod,Pork in 0.45% 69.028 87.095 NaCl 25,000 unit In 0.45 % NaCl 1 250ml.bag @ 11. 33 UNITS/KG/HR 10.004 mls /hr IV .Q24H [facility]ANTZ Rx#: [id number] Piperacillin-Tazobactam 3 125 100 .375 gm In Sodium Chloride 0.9% 100 ml @ 25 mls/hr IVPB Q8HR [facility]Z Rx# :[id number] Oral 480 Output: Urine 2275 545 125 Other: Voiding Method Indwelling Catheter Indwelling Catheter - Exam GENERAL EXAM: Alert, pleasant, 79-year-old female, on room air, with a pulse ox of 92% comfortable in no apparent distress. HEAD: Normocephalic/atraumatic. EYES: Normal reaction of pupils, equal size. Conjunctiva pink, sclera white. NOSE: Clear with pink turbinates. THROAT: No erythema or exudates. NECK: No masses, no JVD, no thyroid enlargement, no adenopathy. CHEST: No chest wall deformity. Symmetrical expansion. LUNGS: Equal air entry with no crackles, wheeze, rhonchi or dullness. CVS: Regular rate and rhythm, normal S1 and S2, no gallops, no murmurs, no rubs ABDOMEN: Soft, nontender. No hepatosplenomegaly, normal bowel sounds, no guarding or rigidity. EXTREMITIES: No clubbing, no edema, no cyanosis, 2+ pulses and upper and lower extremities. Right groin hematoma is soft and this involved after a sheath removal. She does have Doppler signals in the dorsalis pedis and posterior tibialis on the left. Left foot ulcers are still present and there is no signs of an acute cellulitis for now. MUSCULOSKELETAL: Muscle strength and tone normal. SPINE: No scoliosis or deformity SKIN: No rashes. Small dry ulcer on the great toe of the left foot with surrounding mild cellulitis of left lower extremity CENTRAL NERVOUS SYSTEM: Alert and oriented -3. No focal deficits, tone is normal in all 4 extremities. PSYCHIATRIC: Alert and oriented -3. Appropriate affect. Intact judgment and insight. - Labs CBC & Chem 7: 02/20/19 06:42 02/20/19 06:04 Labs: Abnormal Lab Results - Last 24 Hours (Table) 02/19/19 02/19/19 02/19/19 Range/Units 04:37 13:28 17:05 RBC (3.80-5.40) m/uL Hgb (11.4-16.0) gm/dL Hct (34.0-46.0) % APTT (22.0-30.0) sec Chloride (98-107) mmol/L Carbon Dioxide (22-30) mmol/L POC Glucose (mg/dL) 144 H 134 H (75-99) mg/dL Hemoglobin A1c 9.2 H (4.0-6.0) % 02/19/19 02/20/19 02/20/19 Range/Units 20:49 06:04 06:36 RBC (3.80-5.40) m/uL Hgb (11.4-16.0) gm/dL Hct (34.0-46.0) % APTT (22.0-30.0) sec Chloride 115 H (98-107) mmol/L Carbon Dioxide 21 L (22-30) mmol/L POC Glucose (mg/dL) 344 H 101 H (75-99) mg/dL Hemoglobin A1c (4.0-6.0) % 02/20/19 02/20/19 Range/Units 06:42 06:42 RBC 3.36 L (3.80-5.40) m/uL Hgb 9.8 L D (11.4-16.0) gm/dL Hct 31.0 L (34.0-46.0) % APTT >200.0 H* (22.0-30.0) sec Chloride (98-107) mmol/L Carbon Dioxide (22-30) mmol/L POC Glucose (mg/dL) (75-99) mg/dL Hemoglobin A1c (4.0-6.0) % Microbiology - Last 24 Hours (Table) 02/15/19 23:33 Blood Culture - Preliminary Blood No Growth after 96 hours Assessment and Plan Plan: #1. Left lower extremity critical limb ischemia with fifth and great toe gangrene, status post left lower extremity angiogram and initiation of TPA infusion via thrombolytic catheter at the superficial femoral artery. Subsequently the patient underwent further intervention with atherectomy and thrombectomy and subsequent placement of 3 different stents in the femoral/popliteal arteries. She has improved vascularization to the left lower extremity. There are palpable pulses and Doppler pulses for now. No evidence of any cellulitis. The wounds in the feet are quite dry as outlined necrotic without clear evidence of any cellulitis. #2. Left lower Extremity pain, improved #3. History of nonhealing wounds on right and left foot follows at the wound care #4. History of severe peripheral vascular disease with previous intervention #5. Coronary artery disease with previous stenting #6. History of diabetes mellitus with peripheral neuropathy, currently on Levemir insulin for blood sugar control #7. History of chronic atrial fibrillation/A flutter and permanent pacemaker, currently back on Eliquis and the rate is controlled for now. The patient is on of being paced and she has a permanent pacemaker in place. #8. History of congestive heart failure #9. Extensive history of smoking, currently in remission for the past 3 months, does carry [id number] smoking history #10. History of COPD, stable right now, the patient is on Symbicort and DuoNeb nebulized treatments twice a day/when necessary. Plan Restart anticoagulation. IV heparin has been discontinued. The left femoral hematoma is soft. No signs of any acute bleed. Hemoglobin stable at 9.8. Blood pressures under good control. Blood sugar is being monitored and the patient is on Levemir insulin. Continue Stasiak coverage. Blood pressure control. Continue Plavix and Eliquis. The patient can be transferred to a selective floor.
[2019-02-20 12:04] LABS: Glucose,Whole Blood 200 mg/dL (75-99)
[2019-02-20 16:49] LABS: Glucose,Whole Blood 335 mg/dL (75-99)
[2019-02-20] MEDS: CLOPIDOGREL 75 MG TAB PO SCH (17:14)
[2019-02-20] MEDS: HYDROcodone/APAP 5-325MG 1 EACH TAB PO PRN (18:26)
[2019-02-20] MEDS ORDERED: INSULIN DETEMIR (LEVEMIR) 100 UNIT/ML SYR SQ SCH (21:00)
[2019-02-20 21:13] LABS: Glucose,Whole Blood 217 mg/dL (75-99)
[2019-02-20] MEDS: MONTELUKAST 10 MG TAB PO SCH (21:20)
[2019-02-20] MEDS: ALPRAZolam 0.25 MG TAB PO SCH (21:20)
[2019-02-20] MEDS: ATORVASTATIN 40 MG TAB PO SCH (21:20)
[2019-02-20] MEDS: Liraglutide [Victoza 2-Pak] 1.8 MG SQ SCH (21:23)
[2019-02-20] MEDS: ACETAMINOPHEN TAB 500 MG TAB PO PRN (21:25)
--- NOTE | 2019-02-20 23:38 | PN ---
PROGRESS NOTE DATE OF SERVICE: 02/20/2019 This 79-year-old woman was admitted with a foot infection as well as possible sepsis. She is being closely monitored at this time. The patient underwent vascular procedure by vascular surgery, Dr. Aguilera. The pulse is much better at this time. Patient complains of tiredness and weakness. Patient is being closely monitored. PT and OT to evaluate the patient for possible ECF rehab at this time. PAST MEDICAL HISTORY: Reviewed. REVIEW OF SYSTEMS: CARDIOVASCULAR SYSTEM: As mentioned earlier. RESPIRATORY: As mentioned earlier. GI: As mentioned earlier. : No dysuria. NERVOUS SYSTEM: No numbness or weakness. CURRENT MEDICATIONS: 1. Tylenol p.r.n. 2. [place] 5 mg q.6h p.r.n. 3. DuoNeb q.i.d. and p.r.n. 4. Xanax 0.5 q.h.s. 5. Eliquis 5 mg p.o. b.i.d. 6. Lipitor 40 mg q.h.s. 7. Symbicort b.i.d. 8. Clevidipine. 9. Plavix 75 mg p.o. daily. 10.Vitamin B12. 11.Lasix 20 mg p.o. daily. 12.Cozaar. Other medications and doses are reviewed. PHYSICAL EXAM: Patient is alert, oriented x3. Pulse 85, blood pressure 130/60, respirations 24, temperature 98.4, pulse ox 93% on room air. HEENT: Conjunctivae normal. Oral mucosa moist. NECK: No jugular venous distention. No lymph node enlargement. CARDIOVASCULAR: S1, S2. RESPIRATORY: Diminished breath sounds at the bases. A few scattered rhonchi and crackles. ABDOMEN: Soft, nontender. LEGS: No edema, no swelling. Sheath is removed of the right foot, right groin. The right marshall also is slightly healing. The left foot ( ). The pulses are felt feebly. SKIN: As mentioned earlier. NERVOUS SYSTEM: No focal deficits. LABS: WBC 6.2, hemoglobin 9.8. APTT more than 200. ASSESSMENT: 1. Acute left diabetic foot ulcer as well as right marshall cellulitis with possible sepsis, present on admission. 2. Left limb critical ischemia, status post intra-arterial tPA as well as angiography and atherectomy. 3. Enterobacter cloacae from the wound. 4. Decreased CO2 and metabolic acidosis, present on admission, mild. 5. Diabetes type 2. 6. Generalized weakness and dehydration, present on admission, possibly secondary to sepsis. 7. History of congestive heart failure, ejection fraction unknown. 8. History of myocardial infarction. 9. History of chronic obstructive pulmonary disease. 10.Degenerative joint disease. 11.History of back pain. 12.History of trigeminal neurology. 13.History of diabetic peripheral neuropathy. 14.History of coronary artery disease, stent. 15.History of pacemaker. 16.FULL CODE. RECOMMENDATIONS AND DISCUSSION: Continue current medications, continue with the monitoring, symptomatic treatment. Otherwise at this time I recommend continue with antibiotics. The cultures are showing Enterobacter cloacae. I would recommend PT OT evaluation, possible ECF rehab also because of the multiple complex medical issues and advanced age of the patient. GURINDER / LACHO: [id number] /
[2019-02-21 06:12] LABS: Basophils % (A) 0 %; Eosinophils # (A) 0.2 k/uL (0-0.7); Eosinophils % (A) 3 %; HCT 36.3 % (34.0-46.0); HGB 11.1 gm/dL (11.4-16.0); Hypochromasia Slight; Lymphocytes # (A) 1.4 k/uL (1.0-4.8); Lymphocytes % (A) 22 %; MCH 27.8 pg (25.0-35.0); MCHC 30.4 g/dL (31.0-37.0); MCV 91.4 fL (80.0-100.0); Mean Platelet Volume 7.6; Monocytes # (A) 0.5 k/uL (0-1.0); Monocytes % (A) 8 %; Neutrophils % (A) 62 %; Platelet Count 171 k/uL (150-450); RBC 3.98 m/uL (3.80-5.40); WBC 6.4 k/uL (3.8-10.6)
[2019-02-21 06:25] LABS: African American GFR (CKD) >90 (>60 ml/min/1.73 sqM); Anion Gap 8 mmol/L; Blood Urea Nitrogen 17 mg/dL (7-17); Calcium 8.8 mg/dL (8.4-10.2); Carbon Dioxide 26 mmol/L (22-30); Chloride 108 mmol/L (98-107); Glucose 138 mg/dL (74-99); Non-African American GFR(CKD) 81 (>60 ml/min/1.73 sqM); Potassium 3.7 mmol/L (3.5-5.1); Sodium 142 mmol/L (137-145)
[2019-02-21 07:04] LABS: Glucose,Whole Blood 131 mg/dL (75-99)
[2019-02-21] MEDS: INSULIN ASPART (NovoLOG) 100 UNIT/ML VIAL SQ SCH ×4 (07:18→20:29)
[2019-02-21] MEDS: PANTOPRAZOLE 40 MG TABLET PO SCH (07:18)
[2019-02-21] MEDS: SYMBICORT 160-4.5 MCG INHALER INHALATION PRN (08:36)
[2019-02-21] MEDS: IPRATROPIUM-ALBUTEROL 3 ML NEB INHALATION SCH ×2 (08:36→20:31)
[2019-02-21] MEDS: FUROSEMIDE 20 MG TAB PO SCH (09:05)
[2019-02-21] MEDS: PIPERACILLIN-TAZOBACTAM 3.375 GM in SODIUM CHLORIDE 0.9% 100 ML IVPB SCH ×2 (09:05→16:35)
[2019-02-21] MEDS: LOSARTAN 50 MG TAB PO SCH (09:05)
[2019-02-21] MEDS: PREGABALIN 75 MG CAP PO SCH ×2 (09:06→20:14)
[2019-02-21] MEDS: OXcarbazepine 300 MG TAB PO SCH ×2 (09:06→20:22)
[2019-02-21] MEDS: APIXABAN 5 MG TAB PO SCH ×2 (09:06→20:19)
[2019-02-21] MEDS: Metformin Hcl [Metformin Hcl Er] 750 MG PO SCH ×2 (09:06→20:32)
[2019-02-21] MEDS: CHOLECALCIFEROL 1,000 UNIT TAB PO SCH ×2 (09:06→20:16)
[2019-02-21] MEDS: CYANOCOBALAMIN 500 MCG TAB PO SCH ×2 (09:06→20:14)
[2019-02-21] MEDS: Dapagliflozin Propanediol [Farxiga] 5 MG PO SCH (09:07)
--- NOTE | 2019-02-21 09:32 | P.PN ---
<Julisa High - Last Filed: 02/21/19 10:27> Subjective Progress Note Date: 02/21/19 She was seen and evaluated sitting up in bed with no acute distress. Patient denies any chest pains or shortness of breath. Pain in left lower extremity greatly improved. She has states she's been up and ambulating to bathroom. WBC 6.4, hemoglobin 11.1, hematocrit 36.3. Objective - Vital Signs Vital signs: Vital Signs Temp 97.7 F 02/21/19 04:00 Pulse 67 02/21/19 08:50 Resp 18 02/21/19 04:00 BP 135/64 02/21/19 04:00 Pulse Ox 93 L 02/21/19 04:00 Intake & Output 02/20/19 02/21/19 02/21/19 18:59 06:59 18:59 Intake Total 478.900 2557 Output Total 760 550 Balance -87.905 610 Weight 88 kg Intake: IV 460 200 Piperacillin-Tazobactam 3 100 .375 gm In Sodium Chloride 0.9% 100 ml @ 25 mls/hr IVPB Q8HR [facility] Rx# :[id number] Sodium Chloride 0.9% 1, 460 100 000 ml @ 100 mls/hr IV . Q10H [facility] Rx#:[id number] Intake, IV Titration 212.095 Amount Heparin Sod,Pork in 0.45% 87.095 NaCl 25,000 unit In 0.45 % NaCl 1 250ml.bag @ 11. 33 UNITS/KG/HR 10.004 mls /hr IV .Q24H [facility] Rx#: [id number] Piperacillin-Tazobactam 3 125 .375 gm In Sodium Chloride 0.9% 100 ml @ 25 mls/hr IVPB Q8HR [facility] Rx# :[id number] Oral 960 Output: Urine 760 550 Other: Voiding Method Indwelling Catheter Bedside Commode # Voids 1 - Exam General appearance: The patient is alert, oriented, in no acute distress. HET: Head is normocephalic and atraumatic. Pupils are equal and reactive. Heart: S1 S2. Regular rate and rhythm. Lungs: No crackles or wheezes are heard. Abdomen: Soft, nontender, nondistended with bowel sounds. No peritoneal signs. No palpable organomegaly or masses. Extremities: Lower extremity cyanosis improved, warm to touch, adequate capillary refill, dry gangrene fifth toe, monophasic DP and PT signal. Bilateral groins clean dry and intact with minimal ecchymosis to the right groin, no hematoma noted. Neurological: No focal deficits. Strength and sensation are grossly intact. - Labs CBC & Chem 7: 02/21/19 05:40 02/21/19 05:40 Labs: Abnormal Lab Results - Last 24 Hours (Table) 02/20/19 02/20/19 02/20/19 Range/Units 12:03 16:48 21:11 Hgb (11.4-16.0) gm/dL MCHC (31.0-37.0) g/dL Chloride (98-107) mmol/L Glucose (74-99) mg/dL POC Glucose (mg/dL) 200 H 335 H 217 H (75-99) mg/dL 02/21/19 02/21/19 02/21/19 Range/Units 05:40 05:40 07:03 Hgb 11.1 L (11.4-16.0) gm/dL MCHC 30.4 L (31.0-37.0) g/dL Chloride 108 H (98-107) mmol/L Glucose 138 H (74-99) mg/dL POC Glucose (mg/dL) 131 H (75-99) mg/dL Microbiology - Last 24 Hours (Table) 02/15/19 23:33 Blood Culture - Preliminary Blood No Growth after 120 hours 02/15/19 23:55 Anaerobic Culture - Final Toe - Left Fifth Assessment and Plan Assessment: 1. Left lower extremity with critical limb ischemia with gangrene on 5th and great toe 2. Chronic left lower extremity ischemia 8. Status post TPA thrombolysis, atherectomy, angioplasty and stent placement Plan: Continue current therapies. Patient on A[place]quist. Maintain Plavix and aspirin. Continue to increase activity as tolerated, possible discharge today or tomorrow I will up outpatient. The above dictated assessment and findings were discussed with Dr. Mathews. The impression and plan of care have been directed as dictated. <Pippa Mathews - Last Filed: 02/21/19 12:42> Objective - Vital Signs Vital signs: Vital Signs Temp 98 F 02/21/19 08:00 Pulse 71 02/21/19 10:00 Resp 14 02/21/19 08:00 BP 163/79 02/21/19 08:00 Pulse Ox 96 02/21/19 08:00 Intake & Output 02/20/19 02/21/19 02/21/19 18:59 06:59 18:59 Intake Total 229.443 7902 100 Output Total 760 550 240 Balance -87.905 610 -140 Weight 88 kg Intake: IV 460 200 100 Piperacillin-Tazobactam 3 100 100 .375 gm In Sodium Chloride 0.9% 100 ml @ 25 mls/hr IVPB Q8HR [facility] Rx# :[id number] Sodium Chloride 0.9% 1, 460 100 000 ml @ 100 mls/hr IV . Q10H [facility] Rx#:[id number] Intake, IV Titration 212.095 Amount Heparin Sod,Pork in 0.45% 87.095 NaCl 25,000 unit In 0.45 % NaCl 1 250ml.bag @ 11. 33 UNITS/KG/HR 10.004 mls /hr IV .Q24H [facility] Rx#: [id number] Piperacillin-Tazobactam 3 125 .375 gm In Sodium Chloride 0.9% 100 ml @ 25 mls/hr IVPB Q8HR [facility] Rx# :[id number] Oral 960 Output: Urine 760 550 240 Other: Voiding Method Indwelling Catheter Bedside Commode # Voids 1 - Labs CBC & Chem 7: 02/21/19 05:40 02/21/19 05:40 Labs: Abnormal Lab Results - Last 24 Hours (Table) 02/20/19 02/20/19 02/21/19 Range/Units 16:48 21:11 05:40 Hgb 11.1 L (11.4-16.0) gm/dL MCHC 30.4 L (31.0-37.0) g/dL Chloride (98-107) mmol/L Glucose (74-99) mg/dL POC Glucose (mg/dL) 335 H 217 H (75-99) mg/dL 02/21/19 02/21/19 02/21/19 Range/Units 05:40 07:03 12:17 Hgb (11.4-16.0) gm/dL MCHC (31.0-37.0) g/dL Chloride 108 H (98-107) mmol/L Glucose 138 H (74-99) mg/dL POC Glucose (mg/dL) 131 H 212 H (75-99) mg/dL Microbiology - Last 24 Hours (Table) 02/15/19 23:33 Blood Culture - Preliminary Blood No Growth after 120 hours 02/15/19 23:55 Anaerobic Culture - Final Toe - Left Fifth Assessment and Plan Plan: The patient was seen and examined and discussed with the nurse practitioner. I agree with the above assessment and plan. She is to continue her anticoagulation. PT will evaluate her today and if she seems fit, from my standpoint she may be discharged. She will follow up with Dr. Aguilear in 2 weeks
--- NOTE | 2019-02-21 10:53 | P.PN ---
Subjective Progress Note Date: 02/21/19 Principal diagnosis: Pain and the toes of left foot, critical limb ischemia involving left lower extremity 78-year-old female patient of Dr. Giraldo with past medical history of diabetes mellitus, COPD, previous myocardial infarction, chronic congestive heart failure, chronic A. fib flutter, permanent pacemaker insertion, coronary artery disease with previous stenting, osteoarthritis, severe peripheral vascular disease with previous interventions, and history of nonhealing wounds on her left fifth toe and right big toe, for which patient follows at the wound care center. Patient also has 65-muni-gaab smoking history, quit smoking 3 months ago. Patient follows with Dr. Aguilera on an outpatient basis for PVD, and she was scheduled for outpatient vascular surgery today on 02/18/2019 for atherectomy of the left lower extremity. However she was having increasing pain in the toes of her left foot, walk much, she was increasingly more weak, and has patient presented to the hospital for evaluation. No complaints of shortness of breath, no chest pain, no nausea vomiting or diarrhea, no fever or chills, CBC on admission was unremarkable, metabolic panel was negative. She did have mild anion gap acidosis on admission. Hemodynamically stable. Urinalysis showed 4+ glucose and ketones, but negative for signs of infection, troponin was negative 1, lactic acid was at 1.4, LFTs were within normal limits B1 is 20 creatinine 0.63. Chest x-ray showed stable cardiomegaly, diffuse interstitial changes that appear to be chronic, no acute process was seen. Bone scan showed no convincing scintigraphic evidence for osteomyelitis on the left lower extremity. Patient has been started on broad-spectrum antibiotics, was evaluated by vascular surgery, arterial Dopplers in December showed moderate to severe femoral popliteal disease. And today on 02/18/2019 patient had left lower extremity selective femoral popliteal and tibial peroneal angiogram and initiation of thrombolytic lysis with thrombolytic catheter at the superficial femoral artery. Patient is seen in the intensive care unit, following the procedure, awake and alert, no acute distress, she is on alteplase infusion at 10 ML per hour for the right groin catheter at the proximal aspect of the occlusion On 02/19/2019 patient seen in follow-up in the intensive care unit, she is awake and alert, in no acute distress, although she did have pain and discomfort in her left foot most of the night. There has been some numbness in her left foot. Faint Doppler pulse in the left lower extremity, biliary refill, dusky cyanosis of her toes. Patient has a right groin sheath with TPA infusion overnight, she is going for repeat angiogram with Dr. Aguilera overnight and Dr. Mathews this morning. I'll signs remained stable overnight. Require Clofarex infusion briefly, but pressure is stable, patient is afebrile, remains on antibiotics for cellulitis involving the left lower extremity. Infectious disease is following, trigger of the left foot fifth toe was positive for Enterobacter cloacae she remains on Zosyn for antibiotic coverage. On 02/21/2019 seen in follow-up in the intensive care unit. Patient is status post angiogram and percutaneous thrombectomy and atherectomy and balloon angioplasty with stent placement in the left popliteal area. She is doing well, palpable and strong Doppler signals in the left pedal and left posttibial pulses. No specific complaints, she states the numbness and pain in her left toes improved, and is now only intermittent. No fever or chills, bowel sound are stable, she is on room air, with a pulse ox of 96%. Chest pain, no shortness of breath, patient has been up and ambulating to the bathroom, today's labs have been reviewed including blood cell count of 6.4, hemoglobin of 11.1, platelet count is 171, sodium is 142, potassium 3.7, chloride is 108, the rest of electrolytes and renal profile are within normal limits. Continues on IV antibiotics, ID service is following, fifth digits on the left foot wound culture was positive for Enterobacter o'clock A, and patient is currently on Zosyn. Breathing is stable, no rhonchi, no wheezing, patient is on Coreg, and breathing treatments. Patient is now on oral anticoagulation with Eliquis Objective - Vital Signs Vital signs: Vital Signs Temp 98 F 02/21/19 08:00 Pulse 71 02/21/19 10:00 Resp 14 02/21/19 08:00 BP 163/79 02/21/19 08:00 Pulse Ox 96 02/21/19 08:00 Intake & Output 02/20/19 02/21/19 02/21/19 18:59 06:59 18:59 Intake Total 022.421 2641 100 Output Total 760 550 240 Balance -87.905 610 -140 Weight 88 kg Intake: IV 460 200 100 Piperacillin-Tazobactam 3 100 100 .375 gm In Sodium Chloride 0.9% 100 ml @ 25 mls/hr IVPB Q8HR [facility] Rx# :[id number] Sodium Chloride 0.9% 1, 460 100 000 ml @ 100 mls/hr IV . Q10H [facility] Rx#:[id number] Intake, IV Titration 212.095 Amount Heparin Sod,Pork in 0.45% 87.095 NaCl 25,000 unit In 0.45 % NaCl 1 250ml.bag @ 11. 33 UNITS/KG/HR 10.004 mls /hr IV .Q24H [facility] Rx#: [id number] Piperacillin-Tazobactam 3 125 .375 gm In Sodium Chloride 0.9% 100 ml @ 25 mls/hr IVPB Q8HR [facility] Rx# :[id number] Oral 960 Output: Urine 760 550 240 Other: Voiding Method Indwelling Catheter Bedside Commode # Voids 1 - Exam GENERAL EXAM: Alert, pleasant, 79-year-old female, on room air, with a pulse ox of 92% comfortable in no apparent distress. HEAD: Normocephalic/atraumatic. EYES: Normal reaction of pupils, equal size. Conjunctiva pink, sclera white. NOSE: Clear with pink turbinates. THROAT: No erythema or exudates. NECK: No masses, no JVD, no thyroid enlargement, no adenopathy. CHEST: No chest wall deformity. Symmetrical expansion. LUNGS: Equal air entry with no crackles, wheeze, rhonchi or dullness. CVS: Regular rate and rhythm, normal S1 and S2, no gallops, no murmurs, no rubs ABDOMEN: Soft, nontender. No hepatosplenomegaly, normal bowel sounds, no guarding or rigidity. EXTREMITIES: No clubbing, no edema, no cyanosis, 2+ pulses and upper and lower extremities. Groin incisions clean dry and intact, with minimal ecchymosis to the right groin, no hematoma. On Doppler signal in the left pedal and left posttibial pulse, dry gangrene on the fifth toe MUSCULOSKELETAL: Muscle strength and tone normal. SPINE: No scoliosis or deformity SKIN: No rashes. Small dry ulcer on the great toe of the left foot with surrounding mild cellulitis of left lower extremity CENTRAL NERVOUS SYSTEM: Alert and oriented -3. No focal deficits, tone is normal in all 4 extremities. PSYCHIATRIC: Alert and oriented -3. Appropriate affect. Intact judgment and insight. - Labs CBC & Chem 7: 02/21/19 05:40 02/21/19 05:40 Labs: Abnormal Lab Results - Last 24 Hours (Table) 02/20/19 02/20/19 02/20/19 Range/Units 12:03 16:48 21:11 Hgb (11.4-16.0) gm/dL MCHC (31.0-37.0) g/dL Chloride (98-107) mmol/L Glucose (74-99) mg/dL POC Glucose (mg/dL) 200 H 335 H 217 H (75-99) mg/dL 02/21/19 02/21/19 02/21/19 Range/Units 05:40 05:40 07:03 Hgb 11.1 L (11.4-16.0) gm/dL MCHC 30.4 L (31.0-37.0) g/dL Chloride 108 H (98-107) mmol/L Glucose 138 H (74-99) mg/dL POC Glucose (mg/dL) 131 H (75-99) mg/dL Microbiology - Last 24 Hours (Table) 02/15/19 23:33 Blood Culture - Preliminary Blood No Growth after 120 hours 02/15/19 23:55 Anaerobic Culture - Final Toe - Left Fifth Assessment and Plan Plan: Assessment: #1. Left lower extremity critical limb ischemia with fifth and great toe gangrene, status post left lower extremity angiogram and initiation of TPA infusion via thrombolytic catheter at the superficial femoral artery. Subsequently the patient underwent further intervention with atherectomy, th rombectomy and subsequent placement of 3 different stents in the femoral/popliteal arteries. There are now palpable and dopplerable pulses in the left pedal and left posttibial pulses and no cellulitis dry gangrene of the fifth toe on the left foot #2. History of nonhealing wounds on right and left foot follows at the wound care #3. History of severe peripheral vascular disease with previous intervention #4. Coronary artery disease with previous stenting #5. History of diabetes mellitus with peripheral neuropathy #6. History of chronic atrial fibrillation/A flutter and permanent pacemaker #7. History of congestive heart failure #8. Extensive history of smoking, currently in remission for the past 3 months, does carry 95-cism-aafu smoking history #9. History of COPD, stable right now Plan: Continue encouraging deep breathing and coughing, incentive spirometry use, continue with Symbicort and nebulized treatments, COPD stable, no shortness of breath, no complaints of chest pain, vital signs are stable, strong Doppler pulses in the left pedal and posttibial pulses, left lower extremity is warm, no specific complaints, vital signs are stable, pulmonary/critical care service will sign off and follow on as-needed basis. I performed a history & physical examination of the patient and discussed their management with my nurse practitioner, Jeanne Lama. I reviewed the nurse practitioner's note and agree with the documented findings and plan of care. Lung sounds are positive for clear breath sounds. The findings and the impression was discussed with the patient. I attest to the documentation by the nurse practitioner. Time with Patient: Less than 30
[2019-02-21 12:18] LABS: Glucose,Whole Blood 212 mg/dL (75-99)
[2019-02-21] MEDS: ACETAMINOPHEN TAB 500 MG TAB PO PRN (12:24)
[2019-02-21] MEDS: HYDROcodone/APAP 5-325MG 1 EACH TAB PO PRN (16:34)
[2019-02-21 16:58] LABS: Glucose,Whole Blood 237 mg/dL (75-99)
[2019-02-21] MEDS: CLOPIDOGREL 75 MG TAB PO SCH (17:44)
[2019-02-21] MEDS: ALPRAZolam 0.25 MG TAB PO SCH (20:15)
[2019-02-21] MEDS: ATORVASTATIN 40 MG TAB PO SCH (20:18)
[2019-02-21] MEDS: MONTELUKAST 10 MG TAB PO SCH (20:19)
[2019-02-21 20:27] LABS: Glucose,Whole Blood 258 mg/dL (75-99)
[2019-02-21] MEDS: Liraglutide [Victoza 2-Pak] 1.8 MG SQ SCH (20:31)
--- NOTE | 2019-02-21 21:42 | PN ---
PROGRESS NOTE DATE OF SERVICE: 02/21/2019 This 79-year-old woman who was admitted with a foot infection as well as possible sepsis underwent a peripheral vascular procedure by Dr. Aguilera's team. The patient is being closely monitored at this time. The patient also had Enterobacter cloacae grown from the culture. Blood sugar has been slightly elevated at this time. Dr. Funk is following the patient closely as well. The patient had tPA infusion as well as arthrectomy. Past medical history reviewed. REVIEW OF SYSTEMS: CARDIOVASCULAR SYSTEM: No angina, palpitations. RESPIRATORY SYSTEM: As mentioned earlier. GI: As mentioned earlier. : No dysuria or retention. NERVOUS SYSTEM: No numbness, weakness. CURRENT MEDICATIONS: Reviewed. They include: 1. Tylenol 500 mg q.6 p.r.n. 2. [place] 5 mg q.6 p.r.n. 3. DuoNeb q.i.d. and p.r.n. 4. Eliquis 5 mg p.o. b.i.d. 5. Lipitor 40 mg. 6. Symbicort. 7. Vitamin D3. 8. Plavix 75 mg. 9. Vitamin B12. 10.Lasix. 11.NovoLog scale. 12.Levemir 25 units subcutaneously at bedtime. 13.Cozaar. 14.Singulair. 15.Narcan. 16.Farxiga. 17.Metformin. 18.Victoza. 19.Protonix. 20.Trileptal. 21.Restoril. PHYSICAL EXAMINATION: Patient is alert, oriented x3. Pulse 59, blood pressure 140/75, respiration 18, temperature 98.7, pulse ox 94% on room air. HEENT: Conjunctivae normal. NECK: No jugular venous distention. CARDIOVASCULAR SYSTEM: S1, S2 muffled. RESPIRATORY SYSTEM: Breath sounds diminished at the bases. Scattered rhonchi and crackles. ABDOMEN: Soft, non-tender. No mass palpable. LEGS: No edema. No swelling. Right leg ulcer and ischemia present. Pulses are felt. NERVOUS SYSTEM: No focal deficit. LABS: Accu-Cheks 138, 131, 212, 137. Hemoglobin 11.1. ASSESSMENT: 1. Acute left diabetic foot and ulcer as well as right marshall cellulitis with possible sepsis, present on admission. 2. Left limb critical ischemia, status post intraarterial tPA as well as angiography and arthrectomy. 3. Enterobacter cloacae from the foot wound. 4. Decreased carbon dioxide, metabolic acidosis, present on admission, mild. 5. Diabetes mellitus, type 2. 6. Generalized weakness and dehydration, present on admission, possibly secondary to sepsis. 7. History of congestive heart failure, ejection fraction unknown. 8. History of myocardial infarction. 9. History of chronic obstructive pulmonary disease. 10.Degenerative joint disease. 11.History of back pain. 12.History of trigeminal neuralgia. 13.History of diabetic peripheral neuropathy. 14.History of coronary artery disease, stent. 15.History of pacemaker. 16.FULL CODE. RECOMMENDATIONS AND DISCUSSION: I recommend to continue current medications, continue with the monitoring, symptomatic treatment. Continue with IV antibiotics. Also increase the dose of Lantus at this time if the patient is not on her usual medications. Otherwise, monitor blood sugars closely. Continue to follow with multiple consultants. Guarded prognosis because of multiple complex medical issues. Further recommendations to follow. MMODL / IJN: [id number] /
[2019-02-21] MEDS: INSULIN DETEMIR (LEVEMIR) 100 UNIT/ML SYR SQ SCH (21:50)
[2019-02-22] MEDS: HYDROcodone/APAP 5-325MG 1 EACH TAB PO PRN ×4 (00:27→20:09)
[2019-02-22] MEDS: TEMAZEPAM 15 MG CAP PO PRN (00:29)
[2019-02-22] MEDS: PIPERACILLIN-TAZOBACTAM 3.375 GM in SODIUM CHLORIDE 0.9% 100 ML IVPB SCH ×4 (00:30→23:50)
[2019-02-22] MEDS: LACTATED RINGERS 1,000 ML IV SCH (05:34)
[2019-02-22 06:44] LABS: Glucose,Whole Blood 197 mg/dL (75-99)
[2019-02-22 07:05] LABS: Basophils % (A) 0 %; Eosinophils # (A) 0.2 k/uL (0-0.7); Eosinophils % (A) 3 %; HCT 32.9 % (34.0-46.0); HGB 10.5 gm/dL (11.4-16.0); Hypochromasia Slight; Lymphocytes # (A) 1.2 k/uL (1.0-4.8); Lymphocytes % (A) 21 %; MCHC 31.9 g/dL (31.0-37.0); MCV 90.9 fL (80.0-100.0); Mean Platelet Volume 7.7; Monocytes # (A) 0.6 k/uL (0-1.0); Monocytes % (A) 10 %; Neutrophils # (A) 3.4 k/uL (1.3-7.7); Neutrophils % (A) 61 %; Platelet Count 171 k/uL (150-450); RBC 3.62 m/uL (3.80-5.40); RDW 14.9 % (11.5-15.5); WBC 5.6 k/uL (3.8-10.6)
[2019-02-22] MEDS: FUROSEMIDE 20 MG TAB PO SCH (07:28)
[2019-02-22] MEDS: CHOLECALCIFEROL 1,000 UNIT TAB PO SCH ×2 (07:28→20:14)
[2019-02-22] MEDS: APIXABAN 5 MG TAB PO SCH ×2 (07:28→20:13)
[2019-02-22] MEDS: OXcarbazepine 300 MG TAB PO SCH ×2 (07:28→20:26)
[2019-02-22] MEDS: CYANOCOBALAMIN 500 MCG TAB PO SCH ×2 (07:28→20:14)
[2019-02-22] MEDS: PANTOPRAZOLE 40 MG TABLET PO SCH (07:28)
[2019-02-22] MEDS: INSULIN ASPART (NovoLOG) 100 UNIT/ML VIAL SQ SCH ×4 (07:28→20:24)
[2019-02-22] MEDS: LOSARTAN 50 MG TAB PO SCH (07:29)
[2019-02-22] MEDS: PREGABALIN 75 MG CAP PO SCH ×2 (07:29→20:30)
[2019-02-22] MEDS: Metformin Hcl [Metformin Hcl Er] 750 MG PO SCH ×2 (07:39→20:20)
[2019-02-22] MEDS: Dapagliflozin Propanediol [Farxiga] 5 MG PO SCH (07:39)
[2019-02-22] MEDS: IPRATROPIUM-ALBUTEROL 3 ML NEB INHALATION SCH ×2 (07:57→19:25)
[2019-02-22] MEDS: SYMBICORT 160-4.5 MCG INHALER INHALATION PRN ×2 (07:57→19:23)
[2019-02-22 11:36] LABS: Glucose,Whole Blood 196 mg/dL (75-99)
[2019-02-22 16:33] LABS: Glucose,Whole Blood 196 mg/dL (75-99)
--- NOTE | 2019-02-22 17:04 | P.PN ---
Subjective Progress Note Date: 02/22/19 Patient seen and examined. Overall without any complaints. Tired. Was up ambulating earlier No acute distress No respiratory distress Abdomen soft Bilateral groins clean, dry, intact, ecchymosis of the right groin. No evidence of hematoma or pseudoaneurysm Left lower extremity much improved cyanosis, adequate capillary refill, dry gangrene fifth toe, dry gangrene of the medial and lateral aspects of the great toe. monophasic DP and PT signal. No calf tenderness. Chronic left lower extremity ischemia, [place] 5 Status post TPA thrombolysis, atherectomy, angioplasty and stent placement Continue current therapies. Currently on oral anticoagulation along with Plavix and aspirin. Continue activity as tolerated. Discharge planning per primary team. May be discharged from a vascular surgical standpoint Objective - Vital Signs Vital signs: Vital Signs Temp 98.7 F 02/22/19 14:30 Pulse 61 02/22/19 14:30 Resp 16 02/22/19 14:30 BP 105/67 02/22/19 14:30 Pulse Ox 90 L 02/22/19 14:30 Intake & Output 02/21/19 02/22/19 02/22/19 18:59 06:59 18:59 Intake Total 140 960 Output Total 890 Balance -750 960 Intake: IV 140 Piperacillin-Tazobactam 3 100 .375 gm In Sodium Chloride 0.9% 100 ml @ 25 mls/hr IVPB Q8HR [facility] Rx# :[id number] Sodium Chloride 0.9% 1, 40 000 ml @ 100 mls/hr IV . Q10H [facility] Rx#:[id number] Oral 960 Output: Urine 890 Other: Voiding Method Toilet # Voids 1 1 3 # Bowel Movements 1 - Labs CBC & Chem 7: 02/22/19 06:24 02/21/19 05:40 Labs: Abnormal Lab Results - Last 24 Hours (Table) 02/21/19 02/22/19 02/22/19 Range/Units 20:25 06:24 06:38 RBC 3.62 L (3.80-5.40) m/uL Hgb 10.5 L (11.4-16.0) gm/dL Hct 32.9 L (34.0-46.0) % POC Glucose (mg/dL) 258 H 197 H (75-99) mg/dL 02/22/19 02/22/19 Range/Units 11:34 16:31 RBC (3.80-5.40) m/uL Hgb (11.4-16.0) gm/dL Hct (34.0-46.0) % POC Glucose (mg/dL) 196 H 196 H (75-99) mg/dL Microbiology - Last 24 Hours (Table) 02/15/19 23:33 Blood Culture - Final Blood No Growth after 144 hours
[2019-02-22] MEDS: CLOPIDOGREL 75 MG TAB PO SCH (17:09)
--- NOTE | 2019-02-22 18:08 | PN ---
PROGRESS NOTE DATE OF SERVICE: 02/22/2019. This 79-year-old woman who was admitted with acute left diabetic foot ulcer and cellulitis, improving significantly. No chest pain. No palpitations. No fever. The culture showed Enterobacter cloacae. EXAM: Alert and oriented x3. Pulse is 61. Blood pressure 105/60, respiration 16, temperature 98.7, pulse ox 98% on room air. HEENT is conjunctivae normal. NECK: No JVD. CARDIOVASCULAR: S1, S2 muffled. RESPIRATORY: Breath sounds diminished in the bases. A few scattered rhonchi. No crackles. ABDOMEN is soft, nontender. LEGS: Status post surgery. Diabetic foot. LABS: WBC 5.3, hemoglobin 10.5. ASSESSMENT: 1. Acute left diabetic foot ulcer as well as right marshall cellulitis with possible sepsis present on admission. 2. Left limb critical ischemia, status post intraarterial tPA as well as angiography and arthrectomy. 3. Enterobacter cloacae from the left foot wound. 4. Decreased CO2 metabolic acidosis present on admission, mild. 5. Diabetes type 2. 6. Generalized weakness and dehydration present on admission, possibly secondary to sepsis. 7. History of congestive heart failure, ejection fraction unknown. 8. History of myocardial infarction. 9. History of chronic obstructive pulmonary disease. 10.Degenerative joint disease. 11.History of back pain. 12.History of trigeminal neuralgia. 13.History of diabetic peripheral neuropathy. 14.History of coronary artery disease and stent. 15.History of pacemaker. RECOMMENDATIONS AND DISCUSSION: Recommend to continue current medications, continue to monitor. Symptomatic treatment. Otherwise at this time I recommend continue the antibiotics. PT/OT evaluation, possible ECF rehab. Prognosis guarded because of multiple complex medical issues. Further recommendations to follow. We will closely follow with multiple consultants. MMODL / IJN: [id number] /
[2019-02-22] MEDS: ALPRAZolam 0.25 MG TAB PO SCH (20:13)
[2019-02-22] MEDS: ATORVASTATIN 40 MG TAB PO SCH (20:13)
[2019-02-22 20:14] LABS: Glucose,Whole Blood 176 mg/dL (75-99)
[2019-02-22] MEDS: MONTELUKAST 10 MG TAB PO SCH (20:14)
[2019-02-22] MEDS: Liraglutide [Victoza 2-Pak] 1.8 MG SQ SCH (20:20)
[2019-02-22] MEDS: INSULIN DETEMIR (LEVEMIR) 100 UNIT/ML SYR SQ SCH (20:25)
[2019-02-23 06:51] LABS: Glucose,Whole Blood 120 mg/dL (75-99)
[2019-02-23] MEDS: IPRATROPIUM-ALBUTEROL 3 ML NEB INHALATION SCH ×2 (08:37→19:44)
[2019-02-23] MEDS: SYMBICORT 160-4.5 MCG INHALER INHALATION PRN ×2 (08:37→19:44)
[2019-02-23] MEDS: INSULIN ASPART (NovoLOG) 100 UNIT/ML VIAL SQ SCH ×4 (09:33→19:51)
[2019-02-23] MEDS: FUROSEMIDE 20 MG TAB PO SCH (09:41)
[2019-02-23] MEDS: PREGABALIN 75 MG CAP PO SCH ×2 (09:41→19:44)
[2019-02-23] MEDS: ACETAMINOPHEN TAB 500 MG TAB PO PRN ×2 (09:41→17:21)
[2019-02-23] MEDS: PANTOPRAZOLE 40 MG TABLET PO SCH (09:41)
[2019-02-23] MEDS: PIPERACILLIN-TAZOBACTAM 3.375 GM in SODIUM CHLORIDE 0.9% 100 ML IVPB SCH ×2 (09:41→17:17)
[2019-02-23] MEDS: CHOLECALCIFEROL 1,000 UNIT TAB PO SCH ×2 (09:42→19:41)
[2019-02-23] MEDS: OXcarbazepine 300 MG TAB PO SCH ×2 (09:42→19:44)
[2019-02-23] MEDS: APIXABAN 5 MG TAB PO SCH ×2 (09:42→19:41)
[2019-02-23] MEDS: LOSARTAN 50 MG TAB PO SCH (09:42)
[2019-02-23] MEDS: CYANOCOBALAMIN 500 MCG TAB PO SCH ×2 (09:42→19:41)
[2019-02-23] MEDS: Dapagliflozin Propanediol [Farxiga] 5 MG PO SCH (09:55)
[2019-02-23] MEDS: Metformin Hcl [Metformin Hcl Er] 750 MG PO SCH ×2 (09:55→19:23)
--- NOTE | 2019-02-23 10:30 | P.PN ---
Subjective Progress Note Date: 02/23/19 Patient seen and examined. Tired, otherwise no complaints No acute distress No respiratory distress Abdomen soft Bilateral groins clean, dry, intact, ecchymosis of the right groin. No evidence of hematoma or pseudoaneurysm Left lower extremity much improved cyanosis, adequate capillary refill, dry talon grene fifth toe, dry gangrene of the medial and lateral aspects of the great toe. All essentially unchanged Chronic left lower extremity ischemia, [place] 5 Status post TPA thrombolysis, atherectomy, angioplasty and stent placement Continue current therapies. Currently on oral anticoagulation along with Plavix and aspirin. Continue activity as tolerated. Discharge planning per primary team. May be discharged from a vascular surgical standpoint, follow up in [address] Aguilera Objective - Vital Signs Vital signs: Vital Signs Temp 98.5 F 02/23/19 07:00 Pulse 72 02/23/19 08:51 Resp 17 02/23/19 07:00 BP 179/94 02/23/19 07:00 Pulse Ox 92 L 02/23/19 07:00 Intake & Output 02/22/19 02/23/19 02/23/19 18:59 06:59 18:59 Intake Total 960 Balance 960 Intake: Oral 960 Other: Voiding Method Toilet # Voids 3 1 - Labs CBC & Chem 7: 02/22/19 06:24 02/21/19 05:40 Labs: Abnormal Lab Results - Last 24 Hours (Table) 02/22/19 02/22/19 02/22/19 Range/Units 11:34 16:31 20:12 POC Glucose (mg/dL) 196 H 196 H 176 H (75-99) mg/dL 02/23/19 Range/Units 06:48 POC Glucose (mg/dL) 120 H (75-99) mg/dL
[2019-02-23 11:36] LABS: Glucose,Whole Blood 167 mg/dL (75-99)
[2019-02-23 17:11] LABS: Glucose,Whole Blood 194 mg/dL (75-99)
[2019-02-23] MEDS: CLOPIDOGREL 75 MG TAB PO SCH (17:18)
--- NOTE | 2019-02-23 17:36 | PN ---
PROGRESS NOTE DATE OF SERVICE: 02/23/2019 This 79-year-old woman was admitted with acute left diabetic foot ulcer as well as infection cellulitis with possible sepsis also had left limb ischemia. The patient underwent vascular surgery procedure by vascular surgery. Patient has significant gait dysfunction and other multiple medical issues. The PT/OT evaluated the patient for possible ECF rehab. No chest pain. No palpitations. No fever. EXAM: Alert and oriented x2. Pulse 65. Blood pressure 124/70, respirations 16, temperature 98.2, pulse ox 98% on room air. HEENT: Conjunctivae normal. NECK: No JVD. CARDIOVASCULAR: S1, S2 muffled. RESPIRATORY SYSTEM: Breath sounds diminished at the bases. No rhonchi. No crackles. ABDOMEN is soft, nontender. LEGS: Left foot ulcer present. Nervous system: No focal deficits. LABS: Glucose 176, 120. Other labs are noted. ASSESSMENT: 1. Acute left diabetic foot ulcer as well as right marshall cellulitis with possible sepsis present on admission. 2. Left limb critical ischemia status post intraarterial tPA as well as angiography and arthrectomy. 3. Enterobacter cloacae from the left foot wound. 4. Decreased CO2, metabolic acidosis, present on admission, mild. 5. Diabetes type 2. 6. Generalized weakness and dehydration, present on admission, possibly secondary to sepsis. 7. History of congestive heart failure ejection fraction unknown. 8. History of myocardial infarction. 9. History of chronic obstructive pulmonary disease. 10.History of degenerative joint disease. 11.History of back pain. 12.History of trigeminal neurology. 13.History of diabetic peripheral neuropathy. 14.History of coronary artery disease/stent. 15.History of pacemaker. RECOMMENDATIONS AND DISCUSSION: Recommend to continue current medications, management and symptomatic treatment. Otherwise, at this time, I recommend continue with antibiotics. Otherwise PT, OT evaluation, possible ECF rehab. Guarded prognosis because of multiple complex medical issues. Further recommendations to follow. MMODL / IJN: [id number] /
[2019-02-23] MEDS: Liraglutide [Victoza 2-Pak] 1.8 MG SQ SCH (19:23)
[2019-02-23] MEDS: ATORVASTATIN 40 MG TAB PO SCH (19:41)
[2019-02-23] MEDS: ALPRAZolam 0.25 MG TAB PO SCH (19:41)
[2019-02-23] MEDS: MONTELUKAST 10 MG TAB PO SCH (19:44)
[2019-02-23 19:51] LABS: Glucose,Whole Blood 220 mg/dL (75-99)
[2019-02-23] MEDS: INSULIN DETEMIR (LEVEMIR) 100 UNIT/ML SYR SQ SCH (20:54)
[2019-02-24] MEDS: PIPERACILLIN-TAZOBACTAM 3.375 GM in SODIUM CHLORIDE 0.9% 100 ML IVPB SCH ×4 (00:35→21:50)
[2019-02-24] MEDS: HYDROcodone/APAP 5-325MG 1 EACH TAB PO PRN ×3 (02:41→15:00)
[2019-02-24 07:00] LABS: Glucose,Whole Blood 111 mg/dL (75-99)
[2019-02-24] MEDS: INSULIN ASPART (NovoLOG) 100 UNIT/ML VIAL SQ SCH ×4 (07:05→21:44)
[2019-02-24] MEDS: SYMBICORT 160-4.5 MCG INHALER INHALATION PRN (08:24)
[2019-02-24] MEDS: IPRATROPIUM-ALBUTEROL 3 ML NEB INHALATION SCH ×2 (08:24→20:57)
[2019-02-24] MEDS: CHOLECALCIFEROL 1,000 UNIT TAB PO SCH ×2 (09:30→20:12)
[2019-02-24] MEDS: PREGABALIN 75 MG CAP PO SCH ×2 (09:30→20:12)
[2019-02-24] MEDS: APIXABAN 5 MG TAB PO SCH ×2 (09:30→20:12)
[2019-02-24] MEDS: PANTOPRAZOLE 40 MG TABLET PO SCH (09:30)
[2019-02-24] MEDS: FUROSEMIDE 20 MG TAB PO SCH (09:31)
[2019-02-24] MEDS: CYANOCOBALAMIN 500 MCG TAB PO SCH ×2 (09:31→20:12)
[2019-02-24] MEDS: LOSARTAN 50 MG TAB PO SCH (09:31)
[2019-02-24] MEDS: OXcarbazepine 300 MG TAB PO SCH ×2 (09:38→20:13)
[2019-02-24] MEDS: Metformin Hcl [Metformin Hcl Er] 750 MG PO SCH ×2 (11:02→20:13)
[2019-02-24] MEDS: Dapagliflozin Propanediol [Farxiga] 5 MG PO SCH (11:02)
[2019-02-24 11:19] LABS: Glucose,Whole Blood 158 mg/dL (75-99)
--- NOTE | 2019-02-24 13:06 | P.PN ---
Subjective Progress Note Date: 02/24/19 She was seen and evaluated sitting up in bed with no acute distress. Patient denies any chest pains or shortness of breath. Having minimal pain in left 5th toe. She has states she's been up and ambulating to bathroom. Objective - Vital Signs Vital signs: Vital Signs Temp 98.0 F 02/24/19 07:00 Pulse 84 02/24/19 08:42 Resp 16 02/24/19 07:00 BP 158/79 02/24/19 01:00 Pulse Ox 95 02/24/19 08:28 Intake & Output 02/23/19 02/24/19 02/24/19 18:59 06:59 18:59 Intake Total 100 Balance 100 Weight 87.3 kg Intake: IV 100 Piperacillin-Tazobactam 3 100 .375 gm In Sodium Chloride 0.9% 100 ml @ 25 mls/hr IVPB Q8HR [facility] Rx# :[id number] Other: Voiding Method Toilet # Voids 3 1 - Exam General appearance: The patient is alert, oriented, in no acute distress. HET: Head is normocephalic and atraumatic. Pupils are equal and reactive. Heart: S1 S2. Regular rate and rhythm. Lungs: No crackles or wheezes are heard. Abdomen: Soft, nontender, nondistended with bowel sounds. Extremities: Lower extremity cyanosis improved, warm to touch, adequate capillary refill, dry gangrene fifth toe, dry gangrene of the medial lateral aspects of the great toe. Monophasic DP and PT signal. Bilateral groins clean dry and intact with minimal ecchymosis to the right groin, no hematoma noted. Neurological: No focal deficits. Strength and sensation are grossly intact. - Labs CBC & Chem 7: 02/22/19 06:24 02/21/19 05:40 Labs: Abnormal Lab Results - Last 24 Hours (Table) 02/23/19 02/23/19 02/24/19 Range/Units 17:09 19:49 06:58 POC Glucose (mg/dL) 194 H 220 H 111 H (75-99) mg/dL 02/24/19 Range/Units 11:16 POC Glucose (mg/dL) 158 H (75-99) mg/dL Assessment and Plan Assessment: 1. Left lower extremity with critical limb ischemia with dry gangrene on 5th and great toe 2. Chronic left lower extremity ischemia, [place] 5 8. Status post TPA thrombolysis, atherectomy, angioplasty and stent placement Plan: Continue current therapies. Currently on oral anticoagulation with Plavix and aspirin. Discharge planning per primary team, may be discharged from vascular standpoint with follow-up with Dr. Aguilera in 2 weeks. The above dictated assessment and findings were discussed with Dr. Mathews. The impression and plan of care have been directed as dictated.
[2019-02-24 15:28] VITALS: BMI 32.1
[2019-02-24 16:06] LABS: Glucose,Whole Blood 266 mg/dL (75-99)
[2019-02-24] MEDS: CLOPIDOGREL 75 MG TAB PO SCH (17:21)
[2019-02-24] MEDS: MONTELUKAST 10 MG TAB PO SCH (20:12)
[2019-02-24] MEDS: ALPRAZolam 0.25 MG TAB PO SCH (20:12)
[2019-02-24] MEDS: ATORVASTATIN 40 MG TAB PO SCH (20:13)
[2019-02-24] MEDS: Liraglutide [Victoza 2-Pak] 1.8 MG SQ SCH (20:13)
[2019-02-24] MEDS: SYMBICORT 160-4.5 MCG INHALER INHALATION SCH (20:57)
[2019-02-24 21:23] LABS: Glucose,Whole Blood 248 mg/dL (75-99)
[2019-02-24] MEDS: INSULIN DETEMIR (LEVEMIR) 100 UNIT/ML SYR SQ SCH (21:45)
[2019-02-24] MEDS: TEMAZEPAM 15 MG CAP PO PRN (22:55)
--- NOTE | 2019-02-24 23:08 | P.PN ---
Subjective Progress Note Date: 02/24/19 Patient is a 79-year-old female with a past medical history significant for chronic nonhealing wound to the left fifth toe medial side and on the medial side of the right big toe for which the patient follow with Dr. Rose at [facility] wound care center, patient has been brought into the right [facility] for evaluation of generalized weakness and some confusion patient denies having any headache or URI symptoms no chest pain shortness of breath or cough denies having any abdominal pain patient did have discoloration of the left fifth toe medial side wound and she has been complaining of some dull aching pain with intensity about 5-10 to the left foot wound area however the patient denies having any purulent drainage or any foul- smelling patient has been afebrile and her white count has been normal patient did have a bowl skin no pain and she was negative for any osteo-myelitis to the left foot patient has been treated with vancomycin and Zosyn infectious disease was consulted for further recommendation regarding antibiotic therapy 02/17/2019 patient is continued to have pain and discomfort to her left leg. She's been evaluated by her vascular surgeon and there are plans for further intervention is the ongoing blockage of the left leg and evidence of the dry gangrenous change of the fifth toe and ongoing ulcerations to the great toe. Bone scan was performed without evidence of tevin osteomyelitis. The overall plans will be further delineated as she has had her next set of procedures to determine what the vascular surgeons final plan will be. 02/18/2019 the patient is status post the attempted vascular procedure however she is now on TPA via catheter to the left lower extremity try to improve opening for further procedure attempt tomorrow. Relates that she is comfortable and looks forward to having some dinner. She denies fevers or chills. 02/24/2019 the patient is status post the interventions that allowed some arthrectomy and stenting. Vascular surgery believes that she is stable and is ready for discharge home with follow-up with them in the outpatient clinic. The patient is much more awake alert interactive than she has been. Her pain is certainly improved overall. Objective - Vital Signs Vital signs: Vital Signs Temp 97.4 F L 02/24/19 18:35 Pulse 76 02/24/19 21:10 Resp 19 02/24/19 14:30 BP 162/76 02/24/19 18:35 Pulse Ox 94 L 02/24/19 20:59 Intake & Output 02/24/19 02/24/19 02/25/19 06:59 18:59 06:59 Intake Total 100 480 Balance 100 480 Weight 87.3 kg 87.634 kg Intake: IV 100 Piperacillin-Tazobactam 3 100 .375 gm In Sodium Chloride 0.9% 100 ml @ 25 mls/hr IVPB Q8HR [facility] Rx# :[id number] Oral 480 Other: Voiding Method Toilet Toilet # Voids 1 2 1 - Exam Pleasant woman somewhat uncomfortable not in severe pain HEENT: Anicteric conjunctiva are pink and moist nasal mucosa grossly intact without significant lesions, there is no thrush. Neck: The neck is supple without significant lymphadenopathy or thyromegaly. Lungs: Good bilateral air entry without significant crackles or wheezing. There is no significant bronchial sounds. There is no egophony or dullness. Heart: Regular rate and rhythm with an audible S1-S2, no S3 no S4. There is no significant murmur click or rub, PMI was nondisplaced. Abdomen: Positive bowel sounds soft and nontender without palpable masses or organomegaly. There was no guarding or rebound. Extremities: The upper extremities have evidence of the lack of any acute lesions. Right lower extremity is cool not cold no open ulcerations. Left foot shows evidence of the prior noted dry gangrenous changes to the distal aspect of the fifth toe and the ulceration medially and laterally on the great toe there are for thickness ulceration without purulence. The erythema to the foot is improved. Neuro: Awake alert oriented to person place and time. There are no acute new gross focal sensory motor deficits. - Labs CBC & Chem 7: 02/22/19 06:24 02/21/19 05:40 Labs: Abnormal Lab Results - Last 24 Hours (Table) 02/24/19 02/24/19 02/24/19 Range/Units 06:58 11:16 16:04 POC Glucose (mg/dL) 111 H 158 H 266 H (75-99) mg/dL 02/24/19 Range/Units 21:22 POC Glucose (mg/dL) 248 H (75-99) mg/dL Laboratory Results WBC 5.6 k/uL (3.8-10.6) 02/22/19 06:24 RBC 3.62 m/uL (3.80-5.40) L 02/22/19 06:24 Hgb 10.5 gm/dL (11.4-16.0) L 02/22/19 06:24 Hct 32.9 % (34.0-46.0) L 02/22/19 06:24 MCV 90.9 fL (80.0-100.0) 02/22/19 06:24 MCH 29.0 pg (25.0-35.0) 02/22/19 06:24 MCHC 31.9 g/dL (31.0-37.0) 02/22/19 06:24 RDW 14.9 % (11.5-15.5) 02/22/19 06:24 Plt Count 171 k/uL (150-450) 02/22/19 06:24 Neutrophils % 61 % 02/22/19 06:24 Lymphocytes % 21 % 02/22/19 06:24 Monocytes % 10 % 02/22/19 06:24 Eosinophils % 3 % 02/22/19 06:24 Basophils % 0 % 02/22/19 06:24 Neutrophils # 3.4 k/uL (1.3-7.7) 02/22/19 06:24 Lymphocytes # 1.2 k/uL (1.0-4.8) 02/22/19 06:24 Monocytes # 0.6 k/uL (0-1.0) 02/22/19 06:24 Eosinophils # 0.2 k/uL (0-0.7) 02/22/19 06:24 Basophils # 0.0 k/uL (0-0.2) 02/22/19 06:24 Manual Slide Review Performed 02/18/19 11:46 Hypochromasia Slight 02/22/19 06:24 PT 11.4 sec (9.0-12.0) 02/19/19 17:02 INR 1.1 (<1.2) 02/19/19 17:02 APTT >200.0 sec (22.0-30.0) H* 02/20/19 06:42 Fibrinogen 324 mg/dL (200-500) 02/19/19 04:37 Sodium 142 mmol/L (137-145) 02/21/19 05:40 Potassium 3.7 mmol/L (3.5-5.1) 02/21/19 05:40 Chloride 108 mmol/L (98-107) H 02/21/19 05:40 Carbon Dioxide 26 mmol/L (22-30) 02/21/19 05:40 Anion Gap 8 mmol/L 02/21/19 05:40 BUN 17 mg/dL (7-17) 02/21/19 05:40 Creatinine 0.72 mg/dL (0.52-1.04) 02/21/19 05:40 Est GFR (CKD-EPI)AfAm >90 (>60 ml/min/1.73 sqM) 02/21/19 05:40 Est GFR (CKD-EPI)NonAf 81 (>60 ml/min/1.73 sqM) 02/21/19 05:40 Glucose 138 mg/dL (74-99) H 02/21/19 05:40 POC Glucose (mg/dL) 248 mg/dL (75-99) H 02/24/19 21:22 POC Glu Material Handling Supervisor ID Anson Conklin 02/24/19 21:[address] Glu mg/dL 217 02/19/19 04:37 Hemoglobin A1c 9.2 % (4.0-6.0) H 02/19/19 04:37 Plasma Lactic Acid Naveen 1.4 mmol/L (0.7-2.0) 02/15/19 Unknown Calcium 8.8 mg/dL (8.4-10.2) 02/21/19 05:40 Ionized Calcium [place] 4.9 mg/dL (4.5-5.3) 02/15/19 Unknown Magnesium 1.9 mg/dL (1.6-2.3) 02/15/19 Unknown Total Bilirubin 0.9 mg/dL (0.2-1.3) 02/15/19 Unknown AST 26 U/L (14-36) 02/15/19 Unknown ALT 22 U/L (9-52) 02/15/19 Unknown Alkaline Phosphatase 111 U/L (38-126) 02/15/19 Unknown Troponin I <0.012 ng/mL (0.000-0.034) 02/15/19 Unknown Total Protein 6.8 g/dL (6.3-8.2) 02/15/19 Unknown Albumin 4.0 g/dL (3.5-5.0) 02/15/19 Unknown Urine Color Yellow 02/15/19 20:02 Urine Appearance Clear (Clear) 02/15/19 20:02 Urine pH 5.5 (5.0-8.0) 02/15/19 20:02 Ur Specific [place] 1.030 (1.001-1.035) 02/15/19 20:02 Urine Protein 1+ (Negative) H 02/15/19 20:02 Urine Glucose (UA) 4+ (Negative) H 02/15/19 20:02 Urine Ketones 3+ (Negative) H 02/15/19 20:02 Urine Blood Negative (Negative) 02/15/19 20:02 Urine Nitrite Negative (Negative) 02/15/19 20:02 Urine Bilirubin Negative (Negative) 02/15/19 20:02 Urine Urobilinogen <2.0 mg/dL (<2.0) 02/15/19 20:02 Ur Leukocyte Esterase Negative (Negative) 02/15/19 20:02 Urine RBC 2 /hpf (0-5) 02/15/19 20:02 Urine WBC 2 /hpf (0-5) 02/15/19 20:02 Ur Squamous Epith Cells 1 /hpf (0-4) 02/15/19 20:02 Urine Mucus Rare /hpf (None) H 02/15/19 20:02 Vancomycin Trough 10.7 ug/mL 02/18/19 11:46 Blood Type O Positive 02/18/19 11:46 Blood Type Confirm O Positive 02/17/19 10:41 Blood Type Recheck No Previous Record 02/18/19 11:46 Bld Type Recheck Status CABO Indicated 02/18/19 11:46 Antibody Screen NEGATIVE 02/18/19 11:46 Spec Expiration Date 02/21/2019 - 8582 02/18/19 11:46 Microbiology 02/15/19 23:33 Blood Blood Culture - Final No Growth after 144 hours 02/15/19 23:55 Toe - Left Fifth Anaerobic Culture - Final 02/15/19 23:55 Toe - Left Fifth Gram Stain - Final 02/15/19 23:55 Toe - Left Fifth Wound Culture - Final Enterobacter cloacae Assessment and Plan (1) Diabetic foot ulcer Narrative/Plan: 79-year-old woman presents to Hospital as worsening to her left foot with increased pain and ongoing difficulties with the severe peripheral vascular disease status post interventions. She is evidence of a cellulitis the foot which is increasing her pain. Cultures now showing evidence some gram-negative bacilli and will transition antibiotic therapy to Zosyn. Local wound care has been with the therahoney dressing. 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 It the ulcers of the great toe will expect with improved vascular flow that these will start to heal. Bone scan did not reveal evidence of significant osteomyelitis, but there is diminished blood flow. 02/18/2019 the patient has had the first intervention performed by the vascular surgeon today, currently has TPA infusing with the attempt for new procedure again tomorrow. Wound cultures show Enterobacter which is susceptible to Zosyn is also anaerobic bacteria which also makes self-selected choice. I will continue for now await the final outcome for the vascular surgery interventions. 02/24/2019 the patient is now status post or surgical interventions and seems to be doing somewhat better. Her mentation is certainly quite improved and she is feeling better. Pain control is also improved. If she is being ready for discharge to home she will not need outpatient intravenous antibiotic therapy however oral trimethoprim sulfamethoxazole which is a single strength twice a day can be utilized while she is at [facility] for her rehab. We Linda per can be performed with a BMP to ensure she is doing well with antibiotic therapy. She'll follow-up with a vascular surgeon in 2 weeks. She has a dry gangrenous changes for which dry dressings are being applied a further surgical intervention in the future. Current Visit: Yes Status: Acute Code(s): E11.621 - TYPE 2 DIABETES MELLITUS WITH FOOT ULCER; L97.509 - NON-PRESSURE CHRONIC ULCER OTH PRT UNSP FOOT W UNSP SEVERITY SNOMED Code(s): 090210065 (2) Atherosclerosis of [place] arteries of extremities with rest pain, right leg Current Visit: No Status: Acute Code(s): I70.221 - ATHSCL [place] ARTERIES OF EXTREMITIES W REST PAIN, RIGHT LEG SNOMED Code(s): 684275855098157 (3) COPD (chronic obstructive pulmonary disease) Current Visit: No Status: Acute Code(s): J44.9 - CHRONIC OBSTRUCTIVE PULMONARY DISEASE, UNSPECIFIED SNOMED Code(s): 41292808
[2019-02-25 06:22] VITALS: BP 136/81; PULSE 72; RESP 18; TEMP 98
[2019-02-25 06:58] LABS: Glucose,Whole Blood 97 mg/dL (75-99)
[2019-02-25] MEDS: IPRATROPIUM-ALBUTEROL 3 ML NEB INHALATION SCH (07:56)
[2019-02-25] MEDS: SYMBICORT 160-4.5 MCG INHALER INHALATION SCH (07:56)
[2019-02-25] MEDS: OXcarbazepine 300 MG TAB PO SCH (08:55)
[2019-02-25] MEDS: INSULIN ASPART (NovoLOG) 100 UNIT/ML VIAL SQ SCH ×2 (08:55→11:41)
[2019-02-25] MEDS: PANTOPRAZOLE 40 MG TABLET PO SCH (08:55)
[2019-02-25] MEDS: CHOLECALCIFEROL 1,000 UNIT TAB PO SCH (08:55)
[2019-02-25] MEDS: Metformin Hcl [Metformin Hcl Er] 750 MG PO SCH (08:56)
[2019-02-25] MEDS: CYANOCOBALAMIN 500 MCG TAB PO SCH (08:56)
[2019-02-25] MEDS: FUROSEMIDE 20 MG TAB PO SCH (08:56)
[2019-02-25] MEDS: PREGABALIN 75 MG CAP PO SCH (08:56)
[2019-02-25] MEDS: APIXABAN 5 MG TAB PO SCH (08:56)
[2019-02-25] MEDS: LOSARTAN 50 MG TAB PO SCH (08:56)
[2019-02-25] MEDS: Dapagliflozin Propanediol [Farxiga] 5 MG PO SCH (08:56)
--- NOTE | 2019-02-25 09:10 | P.PN ---
Subjective Progress Note Date: 02/24/19 Principal diagnosis: This is a 79-year-old female who was recently admitted with acute left diabetic foot ulcer as well as infection and cellulitis with possible sepsis also found t o have left limb ischemia and is being closely monitored. Infectious disease and vascular surgery are following. Currently patient denies any chest pain, shortness of breath, or palpitations. Patient is afebrile. Patient denies any nausea or vomiting and is tolerating diet. Patient continues to have left lower extremity weakness and pain along with gait dysfunction. PT/OT are following. Patient states that she would like to go to an [facility] for continued physical therapy for strength and mobility. Case management and social work are following. Objective - Vital Signs Vital signs: Vital Signs Temp 98.0 F 02/25/19 06:21 Pulse 72 02/25/19 07:58 Resp 18 02/25/19 06:21 BP 136/81 02/25/19 06:21 Pulse Ox 93 L 02/25/19 06:21 Intake & Output 02/24/19 02/25/19 02/25/19 18:59 06:59 18:59 Intake Total 880 200 Balance 880 200 Weight 87.634 kg 88 kg Intake: Oral 880 200 Other: Voiding Method Toilet # Voids 2 1 - Exam Gen: This is a 79-year-old female sitting up at the side of the bed in no acute distress. Temp is 98.1F, pulse is 68, respirations are 19, blood pressure is 134/78, oxygen saturation is 95% on room air. HEENT: Head is atraumatic, normocephalic. Pupils equal, round. Sclerae is anicteric. NECK: Supple. No JVD. No lymphadenopathy. No thyromegaly. LUNGS: Diminished breath sounds at the bases otherwise clear to auscultation with no wheezes or rhonchi noted. No intercostal retractions. HEART: S1, S2 are muffled ABDOMEN: Soft. Obese. Bowel sounds are present. No masses. No tenderness. EXTREMITIES: Mild pedal edema bilaterally. Left foot ulcer present. No calf tenderness. NEUROLOGICAL: Patient is awake, alert and oriented x3. Cranial nerves 2 through 12 are grossly intact. - Labs CBC & Chem 7: 02/22/19 06:24 02/21/19 05:40 Labs: Abnormal Lab Results - Last 24 Hours (Table) 02/24/19 02/24/19 02/24/19 Range/Units 11:16 16:04 21:22 POC Glucose (mg/dL) 158 H 266 H 248 H (75-99) mg/dL Assessment and Plan Assessment: Acute left by a diabetic foot ulcer as well as right marshall cellulitis with possible sepsis, present on admission Left limb critical ischemia status post intra-arterial TPA as well as angiography and arthrectomy Enterobacter Cloacae from the left foot wound Decreased CO2, metabolic acidosis, present on admission, mild Diabetes mellitus type 2 Generalized weakness and dehydration, present on admission, possibly secondary to sepsis History of congestive heart failure ejection fraction unknown History of myocardial infarction history of chronic obstructive pulmonary disease history of degenerative joint disease History back pain history of trigeminal neurology History of diabetic peripheral neuropathy History of coronary artery disease/stent History pacemaker Recommendations and discussion: Recommend continue current medications, management, and symptomatic treatment. Infectious disease and cardiovascular surgery are following. PT/OT are following. Patient continues to have lower extremity pain at this time. Carmen patel would like to go to an [facility] for continued PT/OT therapy for strength and mobility. Case management and social work are following. Due to multiple complex medical issues prognosis is guarded. Further recommendations to follow. Possible discharge in 24-48 hours.
--- NOTE | 2019-02-25 09:46 | P.PN ---
Subjective Progress Note Date: 02/25/19 She was seen and evaluated sitting up in bed with no acute distress. Patient denies any chest pain, states feels she may have some SOB, denies cough. Denies pain today. She has states she's been up and ambulating to bathroom. Plan for discharge to rehab. Objective - Vital Signs Vital signs: Vital Signs Temp 98.0 F 02/25/19 06:21 Pulse 72 02/25/19 07:58 Resp 18 02/25/19 06:21 BP 136/81 02/25/19 06:21 Pulse Ox 93 L 02/25/19 06:21 Intake & Output 02/24/19 02/25/19 02/25/19 18:59 06:59 18:59 Intake Total 880 200 Balance 880 200 Weight 87.634 kg 88 kg Intake: Oral 880 200 Other: Voiding Method Toilet # Voids 2 1 - Exam General appearance: The patient is alert, oriented, in no acute distress. HET: Head is normocephalic and atraumatic. Pupils are equal and reactive. Heart: S1 S2. Regular rate and rhythm. Lungs: No audible crackles or wheezing, breathing is non-labored. Abdomen: Soft, nontender, nondistended with bowel sounds. Extremities: Lower extremity cyanosis improved, warm to touch, adequate capillary refill, dry gangrene fifth toe, dry gangrene of the medial lateral aspects of the great toe. Bilateral groins clean dry and intact with minimal ecchymosis to the right groin. Neurological: No focal deficits. Strength and sensation are grossly intact. - Labs CBC & Chem 7: 02/22/19 06:24 02/21/19 05:40 Labs: Abnormal Lab Results - Last 24 Hours (Table) 02/24/19 02/24/19 02/24/19 Range/Units 11:16 16:04 21:22 POC Glucose (mg/dL) 158 H 266 H 248 H (75-99) mg/dL Assessment and Plan Assessment: 1. Left lower extremity with critical limb ischemia with dry gangrene on 5th and great toe 2. Chronic left lower extremity ischemia, Sonya 5 8. Status post TPA thrombolysis, atherectomy, angioplasty and stent placement Plan: Continue current therapies. Currently on oral anticoagulation with Plavix and aspirin. Discharge planning per primary team, may be discharged from vascular standpoint with follow-up with Dr. Aguilera in 2 weeks. Arrangements being made for discharge to rehab facility. The above dictated assessment and findings were discussed with Dr. Mathews. The impression and plan of care have been directed as dictated.
[2019-02-25 11:36] LABS: Glucose,Whole Blood 129 mg/dL (75-99)
--- NOTE | 2019-02-25 13:36 | P.DS ---
Providers Date of admission: 02/17/19 15:24 Expected date of discharge: 02/25/19 Attending physician: Naomy Small Consults: 02/15/19 23:04 Consult Physician Routine Consulting Provider: Ibrahima Aguilera Consult Reason/Comments: familiar to pt, left foot wound Do you want consulting provider notified?: Yes, Notify in am 02/15/19 23:05 Consult Physician Routine Consulting Provider: Jack Pleitez Consult Reason/Comments: left foot wound Do you want consulting provider notified?: Yes, Notify in am 02/17/19 09:07 Consult Physician Routine Consulting Provider: Herbert Kulkarni Consult Reason/Comments: left foot wound Do you want consulting provider notified?: Yes 02/18/19 10:13 Consult Physician Routine Consulting Provider: Ricardo Funk Consult Reason/Comments: icu management Do you want consulting provider notified?: Yes Primary care physician: He Giraldo [facility] Course: Final diagnosis Acute left diabetic foot ulcer as well as right marshall cellulitis with possible sepsis, present on admission Left limb critical ischemia status post intra-arterial TPA as well as angiography and arthrectomy with stent Enterobacter Cloacae from the left foot wound Decreased CO2, metabolic acidosis, present on admission, mild Diabetes mellitus type 2 Generalized weakness and dehydration, present on admission, possibly secondary to sepsis History of congestive heart failure ejection fraction unknown History of myocardial infarction history of chronic obstructive pulmonary disease history of degenerative joint disease History back pain history of trigeminal neurology History of diabetic peripheral neuropathy History of coronary artery disease/stent History pacemaker Discharge disposition Patient is being discharged in a stable condition with guarded prognosis to home and will follow-up with primary care provider Dr. He Giraldo in the outpatient setting upon discharge. Patient will also follow-up with Dr. Aguilera in 1-2 weeks. Patient will continue on oral antibiotics in the form of Bactrim twice daily for the next 10 days. Total time taken is 35 minutes. History of present illness This is a 79-year-old female who was recently admitted with an acute left diabetic foot ulcer as well as infection and cellulitis with possible sepsis and was being closely monitored. During hospitalization patient was also found left limb ischemia and underwent intra-arterial TPA with angiography and arthrectomy with stent placement with vascular surgery. Patient will follow-up with Dr. Aguilera in the outpatient setting in 1-2 weeks. Patient will continue on Eliquis 5 mg twice daily. Patient will continue Plavix as well. Patient will also continue on short course of oral antibiotics in the form of Bactrim twice daily for the next 10 days. Patient will follow-up with Dr. Giraldo in the outpatient setting upon discharge. Patient will need repeat labs to monitor electrolyte functions as she will be on continued antibiotic therapy. Patient lives home alone and wanted to go to an [facility] for continued strength and mobility. Had a [id number] discussion with Dr. Caballero from [facility] and patient was denied for going to rehab as she has been up and walking with a walker over 200 feet with only standby assist. Patient states that her daughter and son live nearby and will be helping her in the outpatient setting. Currently patient denies any chest pain, shortness of breath, or palpitations. Patient has been afebrile. Patient denies any nausea or vomiting and is tolerating diet. Currently patient's condition is stable and is ready for discharge today. Guarded prognosis. On exam vital signs are stable. Temp is 98F, pulse is 72, respirations are 18, blood pressure is 136/81, oxygen saturation is 93% on room air Cardio S1, S2 are muffled. Respiratory system shows diminished breath sounds at the bases with no crackles or wheezing noted Abdomen is soft and non-tender. Nervous system shows no focal deficits. Please refer to medication reconciliation sheet for a list of medications. Patient Condition at Discharge: Fair Plan - Discharge Summary Discharge Rx Participant: No New Discharge Prescriptions: New Sulfamethox-Tmp 400-80Mg [Bactrim SS 400-80 mg] 1 tab PO Q12HR #20 tablet HYDROcodone/APAP 5-325MG [[place] 5-325] 1 each PO Q6HR PRN #12 tab PRN Reason: Moderate To Severe Pain Continue Ipratropium-Albuterol Nebulize [Duoneb 0.5 mg-3 mg/3 ml Soln] 3 ml INHALATION BID ALPRAZolam [Xanax] 0.25 mg PO HS Montelukast [Singulair] 10 mg PO HS #30 tab Budesonide-Formot 160-4.5 Mcg [Symbicort 160-4.5 Mcg Inhaler] 2 puff INHALATION RT-BID PRN PRN Reason: Shortness Of Breath Losartan [Cozaar] 50 mg PO QAM Cholecalciferol [Vitamin D3 (25 Mcg = 1000 Iu)] 5,000 unit PO BID Dapagliflozin Propanediol [Farxiga] 5 mg PO DAILY Cyanocobalamin (Vitamin B-12) [Vitamin B-12] 1,000 mcg PO BID Acetaminophen [Tylenol Extra Strength] 500 mg PO Q6HR PRN PRN Reason: Moderate Pain Pregabalin [Lyrica] 150 mg PO BID cap Liraglutide [Victoza 2-Orlin] 1.8 mg SQ HS Apixaban [Eliquis] 5 mg PO BID tab Furosemide [Lasix] 20 mg PO DAILY Rosuvastatin [Crestor] 20 mg PO HS OXcarbazepine [Trileptal] 300 mg PO BID Clopidogrel [Plavix] 75 mg PO DAILY metFORMIN HCL [metFORMIN HCL ER] 750 mg PO BID OXcarbazepine [Trileptal] 150 mg PO DAILY PRN PRN Reason: Seizures Discharge Medication List ALPRAZolam [Xanax] 0.25 mg PO HS 09/16/16 [History] Ipratropium-Albuterol Nebulize [Duoneb 0.5 mg-3 mg/3 ml Soln] 3 ml INHALATION BID 09/16/16 [History] Montelukast [Singulair] 10 mg PO HS #30 tab 09/20/16 [Rx] Budesonide-Formot 160-4.5 Mcg [Symbicort 160-4.5 Mcg Inhaler] 2 puff INHALATION RT-BID PRN 10/05/16 [History] Cholecalciferol [Vitamin D3 (25 Mcg = 1000 Iu)] 5,000 unit PO BID 07/18/17 [History] Cyanocobalamin (Vitamin B-12) [Vitamin B-12] 1,000 mcg PO BID 07/18/17 [History] Dapagliflozin Propanediol [Farxiga] 5 mg PO DAILY 07/18/17 [History] Losartan [Cozaar] 50 mg PO QAM 07/18/17 [History] Acetaminophen [Tylenol Extra Strength] 500 mg PO Q6HR PRN 07/20/17 [History] Pregabalin [Lyrica] 150 mg PO BID cap 02/01/18 [Rx] Liraglutide [Victoza 2-Orlin] 1.8 mg SQ HS 12/26/18 [History] Apixaban [Eliquis] 5 mg PO BID tab 12/27/18 [Rx] Clopidogrel [Plavix] 75 mg PO DAILY 01/10/19 [History] Furosemide [Lasix] 20 mg PO DAILY 01/10/19 [History] OXcarbazepine [Trileptal] 300 mg PO BID 01/10/19 [History] Rosuvastatin [Crestor] 20 mg PO HS 01/10/19 [History] OXcarbazepine [Trileptal] 150 mg PO DAILY PRN 02/15/19 [History] metFORMIN HCL [metFORMIN HCL ER] 750 mg PO BID 02/15/19 [History] Sulfamethox-Tmp 400-80Mg [Bactrim SS 400-80 mg] 1 tab PO Q12HR #20 tablet 02/24/19 [Rx] HYDROcodone/APAP 5-325MG [[place] 5-325] 1 each PO Q6HR PRN #12 tab 02/25/19 [Rx] Follow up Appointment(s)/Referral(s): Ibrahima Aguilera DO [STAFF PHYSICIAN] - 1 Week (Please call office to make appointment, office closed) [facility], [NON-STAFF] - He Giraldo MD [Primary Care Provider] - 03/04/19 11:30 am Ambulatory/Diagnostic Orders: Basic Metabolic Panel [LAB.AMB] Time Frame: 1 Week, Location: None Selected Patient Instructions/Handouts: Femoropopliteal Bypass (DC) Activity/Diet/Wound Care/Special Instructions: Continue Limited activity until follow-up Follow-up with primary care provider upon discharge Follow-up with Dr. Aguilera in 2 weeks Continue current diet Continue to have the lower extremities elevated while at rest Discharge Disposition: HOME WITH HOME HEALTH SERVICES
--- NOTE | 2019-02-28 11:30 | CDI ---
Documentation Clarification Form Date: 02/26/2019 10:50:00 AM From: Karen Fried Phone: If you have a question about this query, please contact [facility] Documentation Spec at [phone] between 8am and 5pm. Admit Date: 02/17/2019 3:24:00 PM Patient Name: Ariadne Ortiz Visit Number: [id number] Discharge Date: 02/25/2019 4:32:00 PM ATTENTION: The Clinical Documentation Specialists (CDI) and [employer] Coding Staff appreciate your assistance in clarifying documentation. Please respond to the clarification below the line at the bottom and electronically sign. The CDI & [employer] Coding staff will review the response and follow-up if needed. Please note: Queries are made part of the Legal Health Record. If you have any questions, please contact the author of this message via ITS. Dr. Naomy Small The documentation in the medical record included ER notes documenting Concerned that patient is experiencing mild euglycemic DKA. Patient given IV fluids: Past medical history/Risk Factors: Diabetic PAD PN gangrene Lactate 1.4 Treatment: IV fluids In your professional opinion, can you please clarify if patient had mild DKA or was this ruled out. DKA DKA ruled out Unable to determine Other, please specify DKA ruled out MTDD
== END 2019-02-25 16:32 | disposition home health service (06) | DRG 854 ==
LOC: EC 18:37 → 4MS4W 21:29 → OBSVTOIN 02-17 15:24 → 2SICU 02-18 10:46 → 4SSUR 02-21 21:51
PROVIDERS: ADMIT Hospitalist; ATTEND Hospitalist
PROC: 04CN3ZZ Extirpation of Matter from Left Popliteal Artery, Percutaneous Approach (ICD-10-PCS; 2019-02-18)
PROC: 047L3Z1 Dilation of Left Femoral Artery using Drug-Coated Balloon, Percutaneous Approach (ICD-10-PCS; 2019-02-18)
PROC: 3E05317 Introduction of Other Thrombolytic into Peripheral Artery, Percutaneous Approach (ICD-10-PCS; 2019-02-18)
PROC: B44GZZ3 Ultrasonography of Left Lower Extremity Arteries, Intravascular (ICD-10-PCS; 2019-02-18)
PROC: 047N3ZZ Dilation of Left Popliteal Artery, Percutaneous Approach (ICD-10-PCS; principal; 2019-02-18 07:30)
PROC: 047U3ZZ Dilation of Left Peroneal Artery, Percutaneous Approach (ICD-10-PCS; 2019-02-18 07:30)
PROC: 047L3DZ Dilation of Left Femoral Artery with Intraluminal Device, Percutaneous Approach (ICD-10-PCS; 2019-02-18 07:30)
PROC: 047N3DZ Dilation of Left Popliteal Artery with Intraluminal Device, Percutaneous Approach (ICD-10-PCS; 2019-02-18 07:30)
DX: A41.9 Sepsis, unspecified organism (principal); L03.115 Cellulitis of right lower limb; E11.52 Type 2 diabetes mellitus with diabetic peripheral angiopathy with gangrene; I48.20 Chronic atrial fibrillation, unspecified; I70.262 Atherosclerosis of native arteries of extremities with gangrene, left leg; I82.512 Chronic embolism and thrombosis of left femoral vein; I82.552 Chronic embolism and thrombosis of left peroneal vein; I82.532 Chronic embolism and thrombosis of left popliteal vein; I82.542 Chronic embolism and thrombosis of left tibial vein; L03.116 Cellulitis of left lower limb; E11.42 Type 2 diabetes mellitus with diabetic polyneuropathy; E11.621 Type 2 diabetes mellitus with foot ulcer; E86.0 Dehydration; Z87.891 Personal history of nicotine dependence; I25.10 Atherosclerotic heart disease of native coronary artery without angina pectoris; I25.2 Old myocardial infarction; I50.9 Heart failure, unspecified; L97.529 Non-pressure chronic ulcer of other part of left foot with unspecified severity; Z79.84 Long term (current) use of oral hypoglycemic drugs; I70.221 Atherosclerosis of native arteries of extremities with rest pain, right leg; J44.9 Chronic obstructive pulmonary disease, unspecified; M19.90 Unspecified osteoarthritis, unspecified site; T38.3X6A Underdosing of insulin and oral hypoglycemic [antidiabetic] drugs, initial encounter; Z79.02 Long term (current) use of antithrombotics/antiplatelets; Z79.51 Long term (current) use of inhaled steroids; Z79.899 Other long term (current) drug therapy; Z82.49 Family history of ischemic heart disease and other diseases of the circulatory system; Z83.3 Family history of diabetes mellitus; Z90.710 Acquired absence of both cervix and uterus; Z95.0 Presence of cardiac pacemaker; Z95.5 Presence of coronary angioplasty implant and graft; Z90.49 Acquired absence of other specified parts of digestive tract; M54.9 Dorsalgia, unspecified; G50.0 Trigeminal neuralgia; Z60.2 Problems related to living alone
CPT/HCPCS: 36246; 36415; 37184; 37211; 37214; 37227; 37228; 37229; 37252; 37253; 71046; 75716; 76937; 78315; 80048; 80053; 80202; 81001; 82330; 83036; 83605; 83735; 84484; 85025; 85384; 85610; 85730; 86850; 86900; 86901; 87040; 87070; 87075; 87077; 87186; 87205; 93005; 94640; 94760; 96360; 96361; 99285

== ENCOUNTER 2019-05-03 21:52 | Inpatient (IN) | payer MEDICARE, OTHER ==
[2019-05-03] MEDS ORDERED: methylPREDNISolone SOD SUCCI 125 MG/2 ML VIAL IV STA (22:07)
--- NOTE | 2019-05-03 22:23 | ED ---
SOB HPI - General Chief Complaint: Shortness of Breath Stated Complaint: Diff Breathing Time Seen by Provider: 05/03/19 21:55 Source: patient, EMS Mode of arrival: EMS Limitations: no limitations - History of Present Illness Initial Comments: Ariadne is a 79-year-old former smoker with a history of COPD who presents the ER today by ambulance for evaluation of shortness of breath. EMS reports that they were called by the patient who is complaining of shortness of breath and wheezing, upon their arrival patient oxygen saturation in the 80s she was af ebrile not tachycardic. She was treated with an updraft in route to the hospital significant improvement in her work of breathing and oxygen saturation. Upon arrival patient is hypothermic, not tachycardic, oxygen saturation 100% on room air. Patient reports she has a history of COPD she was a smoker until proximally 6 months ago. - Related Data Home Medications Medication Instructions Recorded Confirmed ALPRAZolam [Xanax] 0.25 mg PO HS 09/16/16 02/15/19 Ipratropium-Albuterol Nebulize 3 ml INHALATION BID 09/16/16 02/15/19 [Duoneb 0.5 mg-3 mg/3 ml Soln] Budesonide-Formot 160-4.5 Mcg 2 puff INHALATION RT-BID PRN 10/05/16 02/15/19 [Symbicort 160-4.5 Mcg Inhaler] Cholecalciferol [Vitamin D3 (25 5,000 unit PO BID 07/18/17 02/15/19 Mcg = 1000 Iu)] Cyanocobalamin (Vitamin B-12) 1,000 mcg PO BID 07/18/17 02/15/19 [Vitamin B-12] Dapagliflozin Propanediol [Farxiga] 5 mg PO DAILY 07/18/17 02/15/19 Losartan [Cozaar] 50 mg PO QAM 07/18/17 02/15/19 Acetaminophen [Tylenol Extra 500 mg PO Q6HR PRN 07/20/17 02/15/19 Strength] Liraglutide [Victoza 2-Orlin] 1.8 mg SQ HS 12/26/18 02/15/19 Clopidogrel [Plavix] 75 mg PO DAILY 01/10/19 02/15/19 Furosemide [Lasix] 20 mg PO DAILY 01/10/19 02/15/19 OXcarbazepine [Trileptal] 300 mg PO BID 01/10/19 02/15/19 Rosuvastatin [Crestor] 20 mg PO HS 01/10/19 02/15/19 OXcarbazepine [Trileptal] 150 mg PO DAILY PRN 02/15/19 02/15/19 metFORMIN HCL [metFORMIN HCL ER] 750 mg PO BID 02/15/19 02/15/19 Previous Rx's Medication Instructions Recorded Montelukast [Singulair] 10 mg PO HS #30 tab 09/20/16 Pregabalin [Lyrica] 150 mg PO BID cap 02/01/18 Apixaban [Eliquis] 5 mg PO BID tab 12/27/18 Sulfamethox-Tmp 400-80Mg [Bactrim 1 tab PO Q12HR #20 tablet 02/24/19 SS 400-80 mg] HYDROcodone/APAP 5-325MG [Chaplin 1 each PO Q6HR PRN #12 tab 02/25/19 5-325] Allergies Allergy/AdvReac Type Severity Reaction Status Date / Time codeine AdvReac Nausea & Verified 05/03/19 22:06 Vomiting sitagliptin [From Janumet] AdvReac frequent Verified 05/03/19 22:06 UTI Review of Systems ROS Statement: Those systems with pertinent positive or pertinent negative responses have been documented in the HPI. ROS Other: All systems not noted in ROS Statement are negative. Past Medical History Past Medical History: Heart Failure, Diabetes Mellitus, Myocardial Infarction (NC), COPD, Diabetes Mellitus, Myocardial Infarction (NC), Osteoarthritis (OA), Skin Disorder, Vascular Disorder Additional Past Medical History / Comment(s): Leg pain, Trigeminal Neuralgia, Diabetic Neuropathy, NC 1994, ROSCACEA Last Myocardial Infarction Date:: 1994 History of Any Multi-Drug Resistant Organisms: None Reported Past Surgical History: Appendectomy, Cholecystectomy, Heart Catheterization With Stent, Hysterectomy, Orthopedic Surgery, Pacemaker Additional Past Surgical History / Comment(s): Arthrectomy rt leg, Angioplasty, Pacemaker August 2016, left Foot Surgery, one heart stent Past Anesthesia/Blood Transfusion Reactions: No Reported Reaction Date of Last Stent Placement:: 1994 Type of Cardiac Device: Permanent Pacemaker Device Placement Date:: August 2016 Past Psychological History: No Psychological Hx Reported Smoking Status: Former smoker - Past Family History Father Family Medical History: Myocardial Infarction (NC) Mother Family Medical History: Congestive Heart Failure (CHF), CVA/TIA, Diabetes Mellitus General Exam - General Exam Comments Initial Comments: Physical Exam GENERAL: Patient is well-developed and well-nourished. Patient is nontoxic and well-hydrated and is in no distress. HENT: Normocephalic, Atraumatic. EYES: PERRL, EOMI PULMONARY: Unlabored respirations. No audible rales rhonchi or wheezing was noted. CARDIOVASCULAR: There is a regular rate and rhythm without any murmurs gallops or rubs. ABDOMEN: Soft and nontender with normal bowel sounds. SKIN: Skin is clear with no lesions or rashes and otherwise unremarkable. : Deferred NEUROLOGIC: Patient is alert and oriented x3. Moving all extremities spontaneously MUSCULOSKELETAL: Normal extremities with adequate strength and full range of motion. No lower extremity swelling or edema. No calf tenderness. PSYCHIATRIC: Normal psychiatric evaluation. Limitations: no limitations Course Vital Signs 05/03/19 05/03/19 05/04/19 22:00 23:11 01:10 Temperature 97.9 F Pulse Rate 78 93 83 Respiratory 18 18 26 H Rate Blood Pressure 146/70 135/69 122/77 O2 Sat by Pulse 98 100 100 Oximetry 05/04/19 05/04/19 05/04/19 01:30 01:40 01:54 Temperature Pulse Rate 84 84 82 Respiratory 29 H Rate Blood Pressure 111/81 O2 Sat by Pulse 100 Oximetry 05/04/19 05/04/19 05/04/19 02:00 02:04 02:14 Temperature 97.4 F L 97.6 F Pulse Rate 83 85 85 Respiratory 32 H 18 16 Rate Blood Pressure 186/59 112/60 116/68 O2 Sat by Pulse 98 98 Oximetry 05/04/19 05/04/19 05/04/19 02:30 02:44 03:00 Temperature 97.9 F Pulse Rate 80 90 70 Respiratory 28 H 16 18 Rate Blood Pressure 116/68 111/60 111/61 O2 Sat by Pulse 99 98 Oximetry 05/04/19 05/04/19 05/04/19 03:30 04:00 04:21 Temperature 97.8 F 98 F Pulse Rate 74 68 71 Respiratory 25 H 31 H 16 Rate Blood Pressure 112/66 113/72 132/75 O2 Sat by Pulse 100 100 Oximetry 05/04/19 05/04/19 04:32 04:42 Temperature 98.1 F 98.2 F Pulse Rate 75 74 Respiratory 16 16 Rate Blood Pressure 134/79 132/74 O2 Sat by Pulse 100 Oximetry Procedures - Intubation Sedative: Etomidate Laryngoscope: fiber optic video scope Size: 4 ET Tube Size: 7 ET Tube Uncuffed: No Tube Secured Depth (cm): 24 Tube Secured Location: teeth Tube Placement Confirmation: visualized tube passing through cords Patient Tolerated Procedure: well, no complications Intubation Complications: none Medical Decision Making - Medical Decision Making She was seen and evaluated upon arrival, this 79-year-old female with multiple medical comorbidities who presented today for evaluation of shortness of breath. Patient has a history of COPD, shortness of breath improved significantly after breathing treatment but she reports she just doesn't feel good. Full septic workup was initiated upon arrival Patient was reevaluated, continues to not have any wheezing biking planes of chronic pain in her left foot. Patient does have chronic ischemia to this foot with dry gangrene of the fifth toe. Patient requested Tylenol which was ordered. Labs resulted with multiple significant abnormalities most notably acute anemia, patient's previous hemoglobin was 9.9 today's only 6.2 patient has no active bleeding. Uncertain etiology of this anemia. Type and cross and 2 units of blood were ordered. Patient's labs also resulted with lactic acidosis and mildly elevated troponin. Given patient's significant history of vascular disease decision was made to order a CT angiogram of the aorta the chest abdomen and pelvis with runoff's. Patient was taken to CT where she acutely became agitated for out her IV, removed her supplemental oxygen, dry CT was obtained however we're unable to obtain a CT angiography due to the patient having removed her IV. Patient was placed back on the ER [facility] and taken back to the exam room where she was noted to be pale, rios, diaphoretic and hypoxic in appearance. Patient was acutely agitated fighting with staff, not wearing her oxygen. IV access was obtained patient was given etomidate and subsequently intubated for airway protection hypoxia. Patient was then taken back to CT and angiography was completed. The patient's daughter Sania was updated on her condition ABG was obtained approximately 30 minutes after intubation was reviewed is consistent with metabolic acidosis as the patient has low bicarb and pH of 7.1. Oxygen was noted to be elevated, patient will be maintained on oxygen from the event. 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 High-dose heparin was ordered Patient care was discussed with cafeteria cashier Dr. Schafer who agrees with plan for admission for acute hypoxic respiratory failure with altered mental status, metabolic ACIDOSIS, ischemic limb. Patient care was discussed with vascular surgery on-call Dr. Wilcox who is familiar with the patient. 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 - Lab Data Result diagrams: 05/03/19 22:25 05/03/19 22:25 Lab Results 05/03/19 05/03/19 05/03/19 Range/Units 22:25 22:25 22:25 WBC 8.1 (3.8-10.6) k/uL RBC 2.54 L (3.80-5.40) m/uL Hgb 6.2 L* D (11.4-16.0) gm/dL Hct 21.2 L (34.0-46.0) % MCV 83.7 (80.0-100.0) fL MCH 24.4 L (25.0-35.0) pg MCHC 29.1 L (31.0-37.0) g/dL RDW 20.3 H (11.5-15.5) % Plt Count 265 (150-450) k/uL Neutrophils % (Manual) 79 % Band Neutrophils % 2 % Lymphocytes % (Manual) 14 % Monocytes % (Manual) 4 % Basophils % (Manual) 1 % Neutrophils # (Manual) 6.50 (1.3-7.7) k/uL Lymphocytes # (Manual) 1.13 (1.0-4.8) k/uL Monocytes # (Manual) 0.32 (0-1.0) k/uL Basophils # (Manual) 0.08 (0-0.2) k/uL Nucleated RBCs 0 (0-0) /100 WBC Manual Slide Review Performed Polychromasia Present Hypochromasia Marked Poikilocytosis Moderate Anisocytosis Moderate Ovalocytes Present PT (9.0-12.0) sec INR (<1.2) APTT (22.0-30.0) sec Sample Site ABG pH (7.35-7.45) ABG pCO2 (35-45) mmHg ABG pO2 (83-108) mmHg ABG HCO3 (21-25) mmol/L ABG Total CO2 (19-24) mmol/L ABG O2 Saturation (94-97) % ABG Base Excess mmol/L [place] Test FiO2 % Sodium 135 L (137-145) mmol/L Potassium 5.0 (3.5-5.1) mmol/L Chloride 107 (98-107) mmol/L Carbon Dioxide 18 L (22-30) mmol/L Anion Gap 10 mmol/L BUN 34 H (7-17) mg/dL Creatinine 0.82 (0.52-1.04) mg/dL Est GFR (CKD-EPI)AfAm 79 (>60 ml/min/1.73 sqM) Est GFR (CKD-EPI)NonAf 68 (>60 ml/min/1.73 sqM) Glucose 262 H (74-99) mg/dL Lactic Ac Sepsis Rflx Plasma Lactic Acid Naveen (0.7-2.0) mmol/L Calcium 8.7 (8.4-10.2) mg/dL Total Bilirubin 0.8 (0.2-1.3) mg/dL AST 68 H (14-36) U/L ALT 36 H (4-34) U/L Alkaline Phosphatase 169 H (38-126) U/L Creatine Kinase (30-135) U/L Troponin I (0.000-0.034) ng/mL Total Protein 5.9 L (6.3-8.2) g/dL Albumin 3.3 L (3.5-5.0) g/dL Urine Color Urine Appearance (Clear) Urine pH (5.0-8.0) Ur Specific [place] (1.001-1.035) Urine Protein (Negative) Urine Glucose (UA) (Negative) Urine Ketones (Negative) Urine Blood (Negative) Urine Nitrite (Negative) Urine Bilirubin (Negative) Urine Urobilinogen (<2.0) mg/dL Ur Leukocyte Esterase (Negative) Influenza Type A RNA Not Detected (Not Detectd) Influenza Type B (PCR) Not Detected (Not Detectd) Blood Type Blood Type Recheck Bld Type Recheck Status Antibody Screen Crossmatch Spec Expiration Date 05/03/19 05/03/19 05/03/19 Range/Units 22:25 22:25 22:25 WBC (3.8-10.6) k/uL RBC (3.80-5.40) m/uL Hgb (11.4-16.0) gm/dL Hct (34.0-46.0) % MCV (80.0-100.0) fL MCH (25.0-35.0) pg MCHC (31.0-37.0) g/dL RDW (11.5-15.5) % Plt Count (150-450) k/uL Neutrophils % (Manual) % Band Neutrophils % % Lymphocytes % (Manual) % Monocytes % (Manual) % Basophils % (Manual) % Neutrophils # (Manual) (1.3-7.7) k/uL Lymphocytes # (Manual) (1.0-4.8) k/uL Monocytes # (Manual) (0-1.0) k/uL Basophils # (Manual) (0-0.2) k/uL Nucleated RBCs (0-0) /100 WBC Manual Slide Review Polychromasia Hypochromasia Poikilocytosis Anisocytosis Ovalocytes PT 13.6 H (9.0-12.0) sec INR 1.4 H (<1.2) APTT 20.1 L (22.0-30.0) sec Sample Site ABG pH (7.35-7.45) ABG pCO2 (35-45) mmHg ABG pO2 (83-108) mmHg ABG HCO3 (21-25) mmol/L ABG Total CO2 (19-24) mmol/L ABG O2 Saturation (94-97) % ABG Base Excess mmol/L [place] Test FiO2 % Sodium (137-145) mmol/L Potassium (3.5-5.1) mmol/L Chloride (98-107) mmol/L Carbon Dioxide (22-30) mmol/L Anion Gap mmol/L BUN (7-17) mg/dL Creatinine (0.52-1.04) mg/dL Est GFR (CKD-EPI)AfAm (>60 ml/min/1.73 sqM) Est GFR (CKD-EPI)NonAf (>60 ml/min/1.73 sqM) Glucose (74-99) mg/dL Lactic Ac Sepsis Rflx Plasma Lactic Acid Naveen 2.6 H* (0.7-2.0) mmol/L Calcium (8.4-10.2) mg/dL Total Bilirubin (0.2-1.3) mg/dL AST (14-36) U/L ALT (4-34) U/L Alkaline Phosphatase (38-126) U/L Creatine Kinase (30-135) U/L Troponin I 0.108 H* (0.000-0.034) ng/mL Total Protein (6.3-8.2) g/dL Albumin (3.5-5.0) g/dL Urine Color Urine Appearance (Clear) Urine pH (5.0-8.0) Ur Specific [place] (1.001-1.035) Urine Protein (Negative) Urine Glucose (UA) (Negative) Urine Ketones (Negative) Urine Blood (Negative) Urine Nitrite (Negative) Urine Bilirubin (Negative) Urine Urobilinogen (<2.0) mg/dL Ur Leukocyte Esterase (Negative) Influenza Type A RNA (Not Detectd) Influenza Type B (PCR) (Not Detectd) Blood Type Blood Type Recheck Bld Type Recheck Status Antibody Screen Crossmatch Spec Expiration Date 05/03/19 05/03/19 05/03/19 Range/Units 22:25 22:25 23:36 WBC (3.8-10.6) k/uL RBC (3.80-5.40) m/uL Hgb (11.4-16.0) gm/dL Hct (34.0-46.0) % MCV (80.0-100.0) fL MCH (25.0-35.0) pg MCHC (31.0-37.0) g/dL RDW (11.5-15.5) % Plt Count (150-450) k/uL Neutrophils % (Manual) % Band Neutrophils % % Lymphocytes % (Manual) % Monocytes % (Manual) % Basophils % (Manual) % Neutrophils # (Manual) (1.3-7.7) k/uL Lymphocytes # (Manual) (1.0-4.8) k/uL Monocytes # (Manual) (0-1.0) k/uL Basophils # (Manual) (0-0.2) k/uL Nucleated RBCs (0-0) /100 WBC Manual Slide Review Polychromasia Hypochromasia Poikilocytosis Anisocytosis Ovalocytes PT (9.0-12.0) sec INR (<1.2) APTT (22.0-30.0) sec Sample Site ABG pH (7.35-7.45) ABG pCO2 (35-45) mmHg ABG pO2 (83-108) mmHg ABG HCO3 (21-25) mmol/L ABG Total CO2 (19-24) mmol/L ABG O2 Saturation (94-97) % ABG Base Excess mmol/L [place] Test FiO2 % Sodium (137-145) mmol/L Potassium (3.5-5.1) mmol/L Chloride (98-107) mmol/L Carbon Dioxide (22-30) mmol/L Anion Gap mmol/L BUN (7-17) mg/dL Creatinine (0.52-1.04) mg/dL Est GFR (CKD-EPI)AfAm (>60 ml/min/1.73 sqM) Est GFR (CKD-EPI)NonAf (>60 ml/min/1.73 sqM) Glucose (74-99) mg/dL Lactic Ac Sepsis Rflx Y Plasma Lactic Acid Naveen (0.7-2.0) mmol/L Calcium (8.4-10.2) mg/dL Total Bilirubin (0.2-1.3) mg/dL AST (14-36) U/L ALT (4-34) U/L Alkaline Phosphatase (38-126) U/L Creatine Kinase 93 (30-135) U/L Troponin I (0.000-0.034) ng/mL Total Protein (6.3-8.2) g/dL Albumin (3.5-5.0) g/dL Urine Color Urine Appearance (Clear) Urine pH (5.0-8.0) Ur Specific [place] (1.001-1.035) Urine Protein (Negative) Urine Glucose (UA) (Negative) Urine Ketones (Negative) Urine Blood (Negative) Urine Nitrite (Negative) Urine Bilirubin (Negative) Urine Urobilinogen (<2.0) mg/dL Ur Leukocyte Esterase (Negative) Influenza Type A RNA (Not Detectd) Influenza Type B (PCR) (Not Detectd) Blood Type O Positive Blood Type Recheck O Pos Bld Type Recheck Status No Antibody Screen NEGATIVE Crossmatch See Detail Spec Expiration Date 05/06/2019 - 232405/04/1905/04/20 Range/Units 01:24 02:38 WBC (3.8-10.6) k/uL RBC (3.80-5.40) m/uL Hgb (11.4-16.0) gm/dL Hct (34.0-46.0) % MCV (80.0-100.0) fL MCH (25.0-35.0) pg MCHC (31.0-37.0) g/dL RDW (11.5-15.5) % Plt Count (150-450) k/uL Neutrophils % (Manual) % Band Neutrophils % % Lymphocytes % (Manual) % Monocytes % (Manual) % Basophils % (Manual) % Neutrophils # (Manual) (1.3-7.7) k/uL Lymphocytes # (Manual) (1.0-4.8) k/uL Monocytes # (Manual) (0-1.0) k/uL Basophils # (Manual) (0-0.2) k/uL Nucleated RBCs (0-0) /100 WBC Manual Slide Review Polychromasia Hypochromasia Poikilocytosis Anisocytosis Ovalocytes PT (9.0-12.0) sec INR (<1.2) APTT (22.0-30.0) sec Sample Site LRA ABG pH 7.14 L* (7.35-7.45) ABG pCO2 32 L (35-45) mmHg ABG pO2 383 H (83-108) mmHg ABG HCO3 11 L (21-25) mmol/L ABG Total CO2 12 L (19-24) mmol/L ABG O2 Saturation 100.0 H (94-97) % ABG Base Excess -18.1 mmol/L [place] Test Yes FiO2 100 % Sodium (137-145) mmol/L Potassium (3.5-5.1) mmol/L Chloride (98-107) mmol/L Carbon Dioxide (22-30) mmol/L Anion Gap mmol/L BUN (7-17) mg/dL Creatinine (0.52-1.04) mg/dL Est GFR (CKD-EPI)AfAm (>60 ml/min/1.73 sqM) Est GFR (CKD-EPI)NonAf (>60 ml/min/1.73 sqM) Glucose (74-99) mg/dL Lactic Ac Sepsis Rflx Plasma Lactic Acid Naveen (0.7-2.0) mmol/L Calcium (8.4-10.2) mg/dL Total Bilirubin (0.2-1.3) mg/dL AST (14-36) U/L ALT (4-34) U/L Alkaline Phosphatase (38-126) U/L Creatine Kinase (30-135) U/L Troponin I (0.000-0.034) ng/mL Total Protein (6.3-8.2) g/dL Albumin (3.5-5.0) g/dL Urine Color Yellow Urine Appearance Clear (Clear) Urine pH 5.0 (5.0-8.0) Ur Specific [place] 1.033 (1.001-1.035) Urine Protein Trace H (Negative) Urine Glucose (UA) 4+ H (Negative) Urine Ketones Trace H (Negative) Urine Blood Negative (Negative) Urine Nitrite Negative (Negative) Urine Bilirubin Negative (Negative) Urine Urobilinogen <2.0 (<2.0) mg/dL Ur Leukocyte Esterase Negative (Negative) Influenza Type A RNA (Not Detectd) Influenza Type B (PCR) (Not Detectd) Blood Type Blood Type Recheck Bld Type Recheck Status Antibody Screen Crossmatch Spec Expiration Date - EKG Data -: EKG Interpreted by Me EKG Comments: EKG was obtained due to complaint of shortness of breath, EKG was obtained at 2249, rate is 74 rhythm is A. fib, QRS 84 QTC is [address] elevations but there are T-wave inversions and depressions in V3 through V6. When compared to EKG obtained in January 2019 is not a significant change in morphology. No evidence of acute infarction. Critical Care Time Critical Care Time: Yes Total Critical Care Time: 45 Critical Care Time: Critical Care Time Critical care time was exclusive of separately billable procedures and treating other patients and teaching time. Critical care was necessary to treat or prevent imminent or life-threatening deterioration. Given the critical condition in which the patient arrived, the patient was immediately assessed by myself and the nurse, and cardiac monitoring initiated due to the potential for rapid decompensation of the patient's clinical condition. During the course of the patients stay, I spent a considerable amount of time at the bedside performing serial re-evaluations of the patient's hemodynamic and clinical status because of the recognized potential threat to life or limb in this condition. I then had a chance to review not only all of the available current laboratory and radiographic studies obtained today, but I also reviewed old records available to me at the time. Additionally, any ancillary information available including black and white printer operator records were reviewed. Sequential vital signs were obtained. Disposition Clinical Impression: Respiratory failure with hypoxia, Metabolic acidosis, Dry gangrene, Acute exacerbation of COPD with asthma, Critical limb ischemia with history of revascularization of same extremity Disposition: ADMITTED IP TO THIS HOSP Condition: Critical Is patient prescribed a controlled substance at d/c from ED?: No
[2019-05-03] MEDS: SODIUM CHLORIDE 0.9% 500 ML 500 ML IV SCH ×2 (22:36→22:37)
[2019-05-03 22:49] LABS: Anisocytosis Moderate; HCT 21.2 % (34.0-46.0); Hypochromasia Marked; MCH 24.4 pg (25.0-35.0); MCHC 29.1 g/dL (31.0-37.0); MCV 83.7 fL (80.0-100.0); Mean Platelet Volume 10.1; Platelet Count 265 k/uL (150-450); Poikilocytosis Moderate; RBC 2.54 m/uL (3.80-5.40); RDW 20.3 % (11.5-15.5); WBC 8.1 k/uL (3.8-10.6)
[2019-05-03 23:08] LABS: INR 1.4 (<1.2); Prothrombin Time 13.6 sec (9.0-12.0)
[2019-05-03 23:09] LABS: Albumin 3.3 g/dL (3.5-5.0); Calcium 8.7 mg/dL (8.4-10.2); Total Bilirubin 0.8 mg/dL (0.2-1.3); Total Protein 5.9 g/dL (6.3-8.2)
--- NOTE | 2019-05-03 23:20 | XR ---
EXAMINATION TYPE: XR chest 2V DATE OF EXAM: 05/03/2019 COMPARISON: 02/15/2019 HISTORY: Cough. Hypoxemia. TECHNIQUE: FINDINGS: Heart is enlarged. There is no gross heart failure. There is a left axillary pacemaker. The re is very slight blunting of the costophrenic angles. There is mild coarsening of the lung markings. There is intact bony thorax. IMPRESSION: Lung markings increased slightly compared to last exam. No overt heart failure. Tiny pleu ral effusions.
[2019-05-03] MEDS ORDERED: ACETAMINOPHEN TAB 325 MG TAB PO STA (23:29)
[2019-05-03 23:44] LABS: Partial Thromboplastin Time 20.1 sec (22.0-30.0)
[2019-05-03 23:50] LABS: HGB 6.2 gm/dL (11.4-16.0)
[2019-05-04] MEDS ORDERED: ETOMIDATE 2 MG/ML 10 ML VIAL IVP STA (00:28)
[2019-05-04] MEDS: MIDAZOLAM 1 MG/ML 5 ML VIAL IV STA ×2 (00:31→00:42)
[2019-05-04] MEDS ORDERED: IPRATROPIUM-ALBUTEROL 3 ML NEB INHALATION STA (00:34)
[2019-05-04] MEDS ORDERED: PROPOFOL 1,000 MG in EMPTY BAG 1 BAG IV ONE ×2 (00:36→04:51)
--- NOTE | 2019-05-04 00:44 | CT ---
EXAMINATION TYPE: CT abdomen pelvis wo con DATE OF EXAM: 05/04/2019 COMPARISON: None HISTORY: Anemia CT DLP: mGycm Automated exposure control for dose reduction was used. Multiple axial sections were obtained from the diaphragm to the floor the pelvis with no contrast. FINDINGS: Heart is enlarged. There is pericardial dense calcification. There is patchy pulmonary interstitial e john. There is no definite pleural effusion. Liver shows no focal defect. Spleen is intact. Stomach is intact. There is no evidence of pancreatic mass. There are clips from cholecystectomy. There is no adrenal mass. Kidneys show normal size and contour. There is no hydronephrosis. There is no retroperitoneal adenopathy. Bladder distends smoothly. There is no inguinal hernia. There is subcu taneous edema over the anterior abdomen. There is mild presacral edema. There is mild mesenteric alexander a. There is no sign of free air. There is no evidence of a bowel obstruction. Lumbar vertebra have no rmal alignment. Posterior elements are intact. There is no compression fracture. Bladder distends smo othly. There is no evidence of a pelvic mass. There is small amount of fluid in the left paracolic gu tter. Thoracic and lumbar spine are intact. Bony pelvis appears intact. IMPRESSION: Dense pericardial calcification could relate to old pericarditis. Interstitial pulmonary infiltrates in both lungs could relate to some congestive acute heart failure. There is mild ascites and subcutaneous edema and presacral edema that is new compared to old exam. Mi ld mesenteric edema. No bowel obstruction. No free air.
--- NOTE | 2019-05-04 00:57 | XR ---
EXAMINATION TYPE: XR chest 1V DATE OF EXAM: 05/04/2019 COMPARISON: May 03, 2019 HISTORY: Intubated TECHNIQUE: Single view FINDINGS: Endotracheal tube is 4 cm from the barbra in good position. Heart is enlarged. There is holly e pulmonary interstitial edema. There are chest leads. There is a left axillary pacemaker. The thorax is intact. No definite pleural fluid. IMPRESSION: There is increased pulmonary edema compared to last exam 2 hours ago.
[2019-05-04 01:26] LABS: ABG Base Excess -18.1 mmol/L; ABG HCO3 11 mmol/L (21-25); ABG PCO2 32 mmHg (35-45); ABG PO2 383 mmHg (83-108); ABG TCO2 12 mmol/L (19-24); Allen Test Performed? Yes
[2019-05-04 01:31] LABS: ABG PH 7.14 (7.35-7.45)
--- NOTE | 2019-05-04 01:40 | CT ---
CT angiogram of the thoracic and abdominal aorta with runoff. Comparison none. TECHNIQUE: Multiple axial sections were obtained from the aortic arch to the proximal tibia with intravenous co ntrast Isovue 125 mL. FINDINGS: There is endotracheal tube thoracic aorta is atheromatous. There is no aneurysm or dissection. The as cending aorta measures 3.8 cm. There is dense pericardial calcification. There is patency of the celiac artery and superior mesenteric artery. There is moderate plaque at the origins. There is bilateral arterial flow in the renal arteries. There is patency of the iliac arter ies. There is diffuse plaque formation in the iliac arteries. There is stenosis at the origin of the left superficial femoral artery with at least 50% stenosis. There is left side popliteal stent. There is fusiform stenosis of the right popliteal artery of 50%. There is stent in the right common iliac artery. Stent appears patent. IMPRESSION: Diffuse atherosclerotic plaque formation in the abdominal aorta and its branches. No definite hemodyn amic stenosis of the celiac artery and superior mesenteric artery. There are multiple stents. No evidence of stent occlusion. Multiple areas of plaque formation up to 5 0% stenosis in the femoral and iliac arteries. Similar appearance of the popliteal arteries. There is short segment of subtotal occlusion of the proximal left femoral artery on image [id number]. This c ould be hemodynamically significant.
[2019-05-04 02:01] LABS: Band Neutrophils % 2 %; Basophils # (M) 0.08 k/uL (0-0.2); Lymphocytes # (M) 1.13 k/uL (1.0-4.8); Monocytes # (M) 0.32 k/uL (0-1.0); Neutrophils % (M) 79 %; Nucleated Red Blood Cells 0 /100 WBC (0-0); Total Cells Counted 100
[2019-05-04 02:02] LABS: Polychromasia Present
[2019-05-04 02:03] LABS: Ovalocytes Present
[2019-05-04] MEDS: SODIUM CHLORIDE 0.9% 1,000 ML IV SCH ×3 (02:20→21:16)
[2019-05-04] MEDS ORDERED: HEPARIN SODIUM,PORCINE 5,000 UNIT/ML 1 ML VIAL IV PRN (02:30)
[2019-05-04] MEDS ORDERED: HEPARIN SODIUM,PORCINE 10,000 UNIT/ML 1 ML VIAL IV ONE (02:30)
[2019-05-04] MEDS ORDERED: HEPARIN SOD,PORK IN 0.45% NACL 25,000 UNIT in 0.45% NACL 1 250ML.BAG IV SCH (02:30)
[2019-05-04 02:47] LABS: Appearance,Urine Clear (Clear); Bilirubin,Urine Negative (Negative); Blood,Urine Negative (Negative); Color,Urine Yellow; Glucose,Urine (UA) 4+ (Negative); Ketones,Urine Trace (Negative); Leukocyte Esterase,Urine Negative (Negative); Nitrite,Urine Negative (Negative); Protein,Urine Trace (Negative); Specific Gravity,Urine 1.033 (1.001-1.035); Urobilinogen,Urine <2.0 mg/dL (<2.0)
[2019-05-04 05:32] LABS: Glucose,Whole Blood 477 mg/dL (75-99)
[2019-05-04] MEDS ORDERED: INSULIN REGULAR 100 UNIT/ML VIAL SQ ONE (05:33)
[2019-05-04] MEDS ORDERED: INSULIN ASPART (NovoLOG) 100 UNIT/ML VIAL SQ SCH (07:30)
[2019-05-04 08:38] LABS: Glucose,Whole Blood 473 mg/dL (75-99)
--- NOTE | 2019-05-04 08:49 | P.GSCN ---
History of Present Illness Consult date: 05/04/19 Reason for Consult: Lower extremity occlusive disease. History of present illness: Patient is well known to vascular service. Status post bilateral lower extremity arterial intervention. Presented to the ER with a complaint of shortness of br eath, and eventually required intubation. CTA was preformed while in ER of abdoman, pelvis and legs to proximal calf area. Films are reviewed. Recently patient had an arterial doppler which demonstrated an QUINTIN of 0.59 on the right and 0.74 on the left, which is markedly improved from exam prior to lower extremity intervention. She was doing well at time of most recent office visit, and was maintained on PLavix as an outpatient CTA reveals adequate flow to popliteal level bilaterally. Patient has single vessel runoff at the tibial level. Currently patient is not a candidate for any acute intervention from a vascular surgical standpoint Will follow up tomorrow. Past Medical History Past Medical History: Heart Failure, Diabetes Mellitus, Myocardial Infarction (MT), COPD, Diabetes Mellitus, Myocardial Infarction (MT), Osteoarthritis (OA), Skin Disorder, Vascular Disorder Additional Past Medical History / Comment(s): Leg pain, Trigeminal Neuralgia, Diabetic Neuropathy, [place] 1994, ROSCACEA Last Myocardial Infarction Date:: 1994 History of Any Multi-Drug Resistant Organisms: None Reported Past Surgical History: Appendectomy, Cholecystectomy, Heart Catheterization With Stent, Hysterectomy, Orthopedic Surgery, Pacemaker Additional Past Surgical History / Comment(s): Arthrectomy rt leg, Angioplasty, Pacemaker August 2016, left Foot Surgery, one heart stent Past Anesthesia/Blood Transfusion Reactions: No Reported Reaction Date of Last Stent Placement:: 1994 Type of Cardiac Device: Permanent Pacemaker Device Placement Date:: August 2016 Past Psychological History: No Psychological Hx Reported Smoking Status: Former smoker - Past Family History Father Family Medical History: Myocardial Infarction ([place]) Mother Family Medical History: Congestive Heart Failure (CHF), CVA/TIA, Diabetes Layla litus Medications and Allergies Home Medications Medication Instructions Recorded Confirmed Type ALPRAZolam [Xanax] 0.25 mg PO HS 09/16/16 02/15/19 History Ipratropium-Albuterol Nebulize 3 ml INHALATION BID 09/16/16 02/15/19 History [Duoneb 0.5 mg-3 mg/3 ml Soln] Montelukast [Singulair] 10 mg PO HS #30 tab 09/20/16 02/15/19 Rx Budesonide-Formot 160-4.5 Mcg 2 puff INHALATION RT-BID PRN 10/05/16 02/15/19 History [Symbicort 160-4.5 Mcg Inhaler] Cholecalciferol [Vitamin D3 (25 5,000 unit PO BID 07/18/17 02/15/19 History Mcg = 1000 Iu)] Cyanocobalamin (Vitamin B-12) 1,000 mcg PO BID 07/18/17 02/15/19 History [Vitamin B-12] Dapagliflozin Propanediol [Farxiga] 5 mg PO DAILY 07/18/17 02/15/19 History Losartan [Cozaar] 50 mg PO QAM 07/18/17 02/15/19 History Acetaminophen [Tylenol Extra 500 mg PO Q6HR PRN 07/20/17 02/15/19 History Strength] Pregabalin [Lyrica] 150 mg PO BID cap 02/01/18 02/15/19 Rx Liraglutide [Victoza 2-Orlin] 1.8 mg SQ HS 12/26/18 02/15/19 History Apixaban [Eliquis] 5 mg PO BID tab 12/27/18 02/15/19 Rx Clopidogrel [Plavix] 75 mg PO DAILY 01/10/19 02/15/19 History Furosemide [Lasix] 20 mg PO DAILY 01/10/19 02/15/19 History OXcarbazepine [Trileptal] 300 mg PO BID 01/10/19 02/15/19 History Rosuvastatin [Crestor] 20 mg PO HS 01/10/19 02/15/19 History OXcarbazepine [Trileptal] 150 mg PO DAILY PRN 02/15/19 02/15/19 History metFORMIN HCL [metFORMIN HCL ER] 750 mg PO BID 02/15/19 02/15/19 History Sulfamethox-Tmp 400-80Mg [Bactrim 1 tab PO Q12HR #20 tablet 02/24/19 Rx SS 400-80 mg] HYDROcodone/APAP 5-325MG [[place] 1 each PO Q6HR PRN #12 tab 02/25/19 Rx 5-325] Allergies Allergy/AdvReac Type Severity Reaction Status Date / Time codeine AdvReac Nausea & Verified 05/03/19 22:06 Vomiting sitagliptin [From ] AdvReac frequent Verified 05/03/19 22:06 UTI Surgical - Exam Osteopathic Statement: *. No significant issues noted on an osteopathic structural exam other than those noted in the History and Physical/Consult. Vital Signs Temp Pulse Resp BP Pulse Ox 97.9 F 78 18 146/70 98 05/03/19 22:00 05/03/19 22:00 05/03/19 22:00 05/03/19 22:00 05/03/19 22:00 Results - Labs 05/03/19 22:25 05/03/19 22:25 Abnormal Lab Results - Last 24 Hours (Table) 05/03/19 05/03/19 05/03/19 Range/Units 22:25 22:25 22:25 RBC 2.54 L (3.80-5.40) m/uL Hgb 6.2 L* D (11.4-16.0) gm/dL Hct 21.2 L (34.0-46.0) % MCH 24.4 L (25.0-35.0) pg MCHC 29.1 L (31.0-37.0) g/dL RDW 20.3 H (11.5-15.5) % PT (9.0-12.0) sec INR (<1.2) APTT (22.0-30.0) sec ABG pH (7.35-7.45) ABG pCO2 (35-45) mmHg ABG pO2 (83-108) mmHg ABG HCO3 (21-25) mmol/L ABG Total CO2 (19-24) mmol/L ABG O2 Saturation (94-97) % Sodium 135 L (137-145) mmol/L Carbon Dioxide 18 L (22-30) mmol/L BUN 34 H (7-17) mg/dL Glucose 262 H (74-99) mg/dL POC Glucose (mg/dL) (75-99) mg/dL Plasma Lactic Acid Naveen 2.6 H* (0.7-2.0) mmol/L AST 68 H (14-36) U/L ALT 36 H (4-34) U/L Alkaline Phosphatase 169 H (38-126) U/L Troponin I (0.000-0.034) ng/mL Total Protein 5.9 L (6.3-8.2) g/dL Albumin 3.3 L (3.5-5.0) g/dL Urine Protein (Negative) Urine Glucose (UA) (Negative) Urine Ketones (Negative) Crossmatch 05/03/19 05/03/19 05/03/19 Range/Units 22:25 22:25 22:25 RBC (3.80-5.40) m/uL Hgb (11.4-16.0) gm/dL Hct (34.0-46.0) % MCH (25.0-35.0) pg MCHC (31.0-37.0) g/dL RDW (11.5-15.5) % PT 13.6 H (9.0-12.0) sec INR 1.4 H (<1.2) APTT 20.1 L (22.0-30.0) sec ABG pH (7.35-7.45) ABG pCO2 (35-45) mmHg ABG pO2 (83-108) mmHg ABG HCO3 (21-25) mmol/L ABG Total CO2 (19-24) mmol/L ABG O2 Saturation (94-97) % Sodium (137-145) mmol/L Carbon Dioxide (22-30) mmol/L BUN (7-17) mg/dL Glucose (74-99) mg/dL POC Glucose (mg/dL) (75-99) mg/dL Plasma Lactic Acid Naveen (0.7-2.0) mmol/L AST (14-36) U/L ALT (4-34) U/L Alkaline Phosphatase (38-126) U/L Troponin I 0.108 H* (0.000-0.034) ng/mL Total Protein (6.3-8.2) g/dL Albumin (3.5-5.0) g/dL Urine Protein (Negative) Urine Glucose (UA) (Negative) Urine Ketones (Negative) Crossmatch See Detail 05/04/19 05/04/19 05/04/19 Range/Units 01:24 02:38 05:30 RBC (3.80-5.40) m/uL Hgb (11.4-16.0) gm/dL Hct (34.0-46.0) % MCH (25.0-35.0) pg MCHC (31.0-37.0) g/dL RDW (11.5-15.5) % PT (9.0-12.0) sec INR (<1.2) APTT (22.0-30.0) sec ABG pH 7.14 L* (7.35-7.45) ABG pCO2 32 L (35-45) mmHg ABG pO2 383 H (83-108) mmHg ABG HCO3 11 L (21-25) mmol/L ABG Total CO2 12 L (19-24) mmol/L ABG O2 Saturation 100.0 H (94-97) % Sodium (137-145) mmol/L Carbon Dioxide (22-30) mmol/L BUN (7-17) mg/dL Glucose (74-99) mg/dL POC Glucose (mg/dL) 477 H (75-99) mg/dL Plasma Lactic Acid Naveen (0.7-2.0) mmol/L AST (14-36) U/L ALT (4-34) U/L Alkaline Phosphatase (38-126) U/L Troponin I (0.000-0.034) ng/mL Total Protein (6.3-8.2) g/dL Albumin (3.5-5.0) g/dL Urine Protein Trace H (Negative) Urine Glucose (UA) 4+ H (Negative) Urine Ketones Trace H (Negative) Crossmatch Diabetes panel 05/03/19 Range/Units 22:25 Sodium 135 L (137-145) mmol/L Potassium 5.0 (3.5-5.1) mmol/L Chloride 107 (98-107) mmol/L Carbon Dioxide 18 L (22-30) mmol/L BUN 34 H (7-17) mg/dL Creatinine 0.82 (0.52-1.04) mg/dL Glucose 262 H (74-99) mg/dL Calcium 8.7 (8.4-10.2) mg/dL AST 68 H (14-36) U/L ALT 36 H (4-34) U/L Alkaline Phosphatase 169 H (38-126) U/L Total Protein 5.9 L (6.3-8.2) g/dL Albumin 3.3 L (3.5-5.0) g/dL Calcium panel 05/03/19 Range/Units 22:25 Calcium 8.7 (8.4-10.2) mg/dL Albumin 3.3 L (3.5-5.0) g/dL Pituitary panel 05/03/19 Range/Units 22:25 Sodium 135 L (137-145) mmol/L Potassium 5.0 (3.5-5.1) mmol/L Chloride 107 (98-107) mmol/L Carbon Dioxide 18 L (22-30) mmol/L BUN 34 H (7-17) mg/dL Creatinine 0.82 (0.52-1.04) mg/dL Glucose 262 H (74-99) mg/dL Calcium 8.7 (8.4-10.2) mg/dL Adrenal panel 05/03/19 Range/Units 22:25 Sodium 135 L (137-145) mmol/L Potassium 5.0 (3.5-5.1) mmol/L Chloride 107 (98-107) mmol/L Carbon Dioxide 18 L (22-30) mmol/L BUN 34 H (7-17) mg/dL Creatinine 0.82 (0.52-1.04) mg/dL Glucose 262 H (74-99) mg/dL Calcium 8.7 (8.4-10.2) mg/dL Total Bilirubin 0.8 (0.2-1.3) mg/dL AST 68 H (14-36) U/L ALT 36 H (4-34) U/L Alkaline Phosphatase 169 H (38-126) U/L Total Protein 5.9 L (6.3-8.2) g/dL Albumin 3.3 L (3.5-5.0) g/dL
[2019-05-04] MEDS ORDERED: PANTOPRAZOLE 40 MG/10 ML VIAL IV SCH (09:00)
[2019-05-04] MEDS ORDERED: INSULIN REGULAR BOLUS (FROM DRIP BAG) IV PRN (09:00)
[2019-05-04] MEDS: PROPOFOL 1,000 MG in EMPTY BAG 1 BAG IV SCH ×3 (09:30→23:26)
[2019-05-04 09:37] LABS: ABG Base Excess -8.8 mmol/L; ABG HCO3 16 mmol/L (21-25); ABG Oxygen Saturation 99.7 % (94-97); ABG PCO2 27 mmHg (35-45); ABG PH 7.38 (7.35-7.45); ABG PO2 142 mmHg (83-108); ABG TCO2 17 mmol/L (19-24); Allen Test Performed? Yes
[2019-05-04 09:59] LABS: Glucose,Whole Blood 409 mg/dL (75-99)
[2019-05-04] MEDS: INSULIN REGULAR 100 UNIT in SODIUM CHLORIDE 0.9% 100 ML IV SCH ×2 (10:00→23:29)
[2019-05-04 10:26] LABS: Glucose,Whole Blood 378 mg/dL (75-99)
[2019-05-04 10:45] LABS: Anisocytosis Slight; HCT 27.5 % (34.0-46.0); Hypochromasia Marked; MCHC 30.3 g/dL (31.0-37.0); MCV 85.9 fL (80.0-100.0); Mean Platelet Volume 9.8; Platelet Count 234 k/uL (150-450); Poikilocytosis Moderate; RDW 18.4 % (11.5-15.5)
[2019-05-04 10:46] LABS: HGB 8.3 gm/dL (11.4-16.0)
[2019-05-04 11:06] LABS: Monocytes # (M) 0.26 k/uL (0-1.0); Myelocytes # (M) 0.09 k/uL (0); Myelocytes % 1 %; Neutrophils % (M) 87 %; Nucleated Red Blood Cells 1 /100 WBC (0-0); Total Cells Counted 200
[2019-05-04 11:07] LABS: Lymphocytes # (M) 0.86 k/uL (1.0-4.8); Neutrophils # (M) 7.48 k/uL (1.3-7.7); WBC 8.6 k/uL (3.8-10.6)
[2019-05-04 11:08] LABS: Polychromasia Present
[2019-05-04 11:12] LABS: Glucose,Whole Blood 339 mg/dL (75-99)
[2019-05-04 12:14] LABS: Glucose,Whole Blood 309 mg/dL (75-99)
[2019-05-04 13:14] LABS: Glucose,Whole Blood 246 mg/dL (75-99)
[2019-05-04 14:30] LABS: Glucose,Whole Blood 217 mg/dL (75-99)
--- NOTE | 2019-05-04 14:38 | P.CNPUL ---
History of Present Illness Consult date: 05/04/19 Reason for consult: other (ICU management acute hypoxic respiratory failure) Chief complaint: Shortness of breath History of present illness: This is a 79-year-old female, known history of COPD, former smoker, patient pr esented to the ER with 1 day history of increased shortness of breath. Patient was complaining of cough, wheezing, shortness of breath, and upon her initial evaluation, the patient was noted to be very comfortable, she was saturating 100% on room air, patient used to smoke until 6 months ago. And she is normally maintained on bronchodilators in the form of Symbicort and DuoNeb updrafts. Patient received updraft treatment however she Is reporting that she was not feeling good. Initial workup for sepsis was initiated. Patient was noted to have complaints of chronic pain in her left foot. 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 Workup in the ER showed that the patient had acute anemia hemoglobin was 6.2, and her baseline hemoglobin is 9.9. 2 units of packed RBCs were typed and crossed, and the patient was also noted to have mild lactic acidosis and mild elevated troponin. Patient underwent CT angiogram of the aorta chest abdomen and pelvis, in the CT department, patient became acutely agitated, pulled out her IV, removed her supplemental oxygen, then she was noted to become pale, rios, diaphoretic, and hypoxic. At that point the patient was immediately intubated by ER physician. And her CT angiography was completed. Her CT of the chest showed no evidence of pulmonary embolism, no evidence of dissection, there was evidence of complete occlusion of the left femoral artery. And apparently this is chronic. I was notified about this patient, and I recommended vascular evaluation. Patient was seen by vascular surgery, no heparin was recommended, as the findings are usually chronic. In the meantime patient was given 2 units of packed RBCs for low hemoglobin of 6.2. She was transferred to the ICU on mechanical ventilation, and I was asked to see her on consultation. In the ICU the patient was intubated, mechanically ventilated, sedated, on propofol drip. She is now on assist control rate of 16 tidal volume is 450 FiO2 is 35% and PEEP of 5. Her propofol is at 50 mcg/kg/m. Her IV fluid is at 100 mL/m, and she is on insulin drip. Chest x-ray showed left axillary pacemaker, slight blunting of the costophrenic angles, and mild coarsening of the lung markings. Repeat hemoglobin after 2 units of packed RBCs given was 8.3. ABG on mechanical marcos tilation showed a pO2 of 142 pCO2 of 27 pH of 7.38 hence the patient's FiO2 was decreased down to 35%. Basic metabolic profile showed mild non-anion gap metabolic acidosis with bicarb of 18. Lactic acid was noted to be 2.1. Troponin jumped from 0.108 up to 0.625. Hence the patient will be seen by cardiology on consultation. Review of Systems ROS unobtainable: due to endotracheal tube Past Medical History Past Medical History: Heart Failure, Diabetes Mellitus, Myocardial Infarction (SC), COPD, Diabetes Mellitus, Myocardial Infarction (SC), Osteoarthritis (OA), Skin Disorder, Vascular Disorder Additional Past Medical History / Comment(s): Leg pain, Trigeminal Neuralgia, Diabetic Neuropathy, [place] 1994, ROSCACEA, covenant X 8 days in 2017 for CHF; ex - etoh X 30 years Last Myocardial Infarction Date:: 1994 History of Any Multi-Drug Resistant Organisms: None Reported Past Surgical History: Appendectomy, Cholecystectomy, Heart Catheterization With Stent, Hysterectomy, Orthopedic Surgery, Pacemaker Additional Past Surgical History / Comment(s): Arthrectomy rt leg, Angioplasty, Pacemaker August 2016, left Foot Surgery, one heart stent Past Anesthesia/Blood Transfusion Reactions: No Reported Reaction Date of Last Stent Placement:: 1994 Type of Cardiac Device: Permanent Pacemaker Device Placement Date:: August 2016 Smoking Status: Light tobacco smoker - Past Family History Father Family Medical History: Myocardial Infarction (SC) Mother Family Medical History: Congestive Heart Failure (CHF), CVA/TIA, Diabetes Mellitus Medications and Allergies Home Medications Medication Instructions Recorded Confirmed Type ALPRAZolam [Xanax] 0.25 mg PO HS 09/16/16 05/04/19 History Ipratropium-Albuterol Nebulize 3 ml INHALATION BID 09/16/16 02/15/19 History [Duoneb 0.5 mg-3 mg/3 ml Soln] Montelukast [Singulair] 10 mg PO HS #30 tab 09/20/16 05/04/19 Rx Budesonide-Formot 160-4.5 Mcg 2 puff INHALATION RT-BID PRN 10/05/16 02/15/19 History [Symbicort 160-4.5 Mcg Inhaler] Cholecalciferol [Vitamin D3 (25 5,000 unit PO BID 07/18/17 05/04/19 History Mcg = 1000 Iu)] Cyanocobalamin (Vitamin B-12) 1,000 mcg PO BID 07/18/17 05/04/19 History [Vitamin B-12] Dapagliflozin Propanediol [Farxiga] 5 mg PO DAILY 07/18/17 05/04/19 History Losartan [Cozaar] 50 mg PO QAM 07/18/17 05/04/19 History Acetaminophen [Tylenol Extra 500 mg PO Q6HR PRN 07/20/17 05/04/19 History Strength] Pregabalin [Lyrica] 150 mg PO BID cap 02/01/18 05/04/19 Rx Liraglutide [Victoza 2-Orlin] 1.8 mg SQ HS 12/26/18 02/15/19 History Apixaban [Eliquis] 5 mg PO BID tab 12/27/18 05/04/19 Rx Clopidogrel [Plavix] 75 mg PO DAILY 01/10/19 05/04/19 History Furosemide [Lasix] 20 mg PO DAILY 01/10/19 05/04/19 History OXcarbazepine [Trileptal] 300 mg PO BID 01/10/19 05/04/19 History Rosuvastatin [Crestor] 20 mg PO HS 01/10/19 05/04/19 History OXcarbazepine [Trileptal] 150 mg PO DAILY PRN 02/15/19 02/15/19 History metFORMIN HCL [metFORMIN HCL ER] 750 mg PO BID 02/15/19 05/04/19 History HYDROcodone/APAP 5-325MG [[place] 1 each PO Q6HR PRN #12 tab 02/25/19 Rx 5-325] Allergies Allergy/AdvReac Type Severity Reaction Status Date / Time codeine AdvReac Nausea & Verified 05/03/19 22:06 Vomiting sitagliptin [From ] AdvReac frequent Verified 05/03/19 22:06 UTI Physical Exam Vitals: Vital Signs Temp Pulse Resp BP Pulse Ox 05/04/19 13:00 70 20 123/64 100 05/04/19 12:30 68 21 117/60 100 05/04/19 12:00 98.9 F 71 20 126/67 100 05/04/19 11:30 69 21 132/69 100 05/04/19 11:00 70 22 128/66 100 05/04/19 10:30 73 22 125/68 100 05/04/19 10:00 69 23 133/76 100 05/04/19 09:30 68 22 130/77 100 05/04/19 09:00 65 23 126/69 100 05/04/19 08:30 98.7 F 66 25 H 154/80 100 05/04/19 08:22 69 26 H 05/04/19 07:53 70 18 144/75 100 05/04/19 07:24 97.7 F 70 20 154/82 100 05/04/19 05:30 98 F 66 18 142/81 100 05/04/19 05:12 98 F 82 16 142/81 100 05/04/19 05:00 69 20 134/79 100 05/04/19 04:42 98.2 F 74 16 132/74 100 05/04/19 04:32 98.1 F 75 16 134/79 05/04/19 04:30 72 16 137/71 100 05/04/19 04:21 98 F 71 16 132/75 100 05/04/19 04:00 97.8 F 68 31 H 113/72 100 05/04/19 03:30 74 25 H 112/66 05/04/19 03:00 70 18 111/61 98 05/04/19 02:44 97.9 F 90 16 111/60 99 05/04/19 02:30 80 28 H 116/68 05/04/19 02:14 97.6 F 85 16 116/68 98 05/04/19 02:04 97.4 F L 85 18 112/60 05/04/19 02:00 83 32 H 186/59 98 05/04/19 01:54 82 05/04/19 01:40 84 05/04/19 01:30 84 29 H 111/81 100 05/04/19 01:10 83 26 H 122/77 100 05/03/19 23:11 93 18 135/69 100 05/03/19 22:00 97.9 F 78 18 146/70 98 Intake and Output 05/03/19 05/04/19 05/04/19 22:59 06:59 14:59 Intake Total 327.702 526.832 Output Total 1400 900 Balance -1072.298 -373.168 Intake: Intake, IV Titration 17.702 526.832 Amount Insulin Regular 100 unit 26.832 In Sodium Chloride 0.9% 100 ml @ Per Protocol IV .Q0M [facility] Rx#:[id number] Propofol 1,000 mg In 17.702 Empty Bag 1 bag @ Titrate IV .Q0M [facility] Rx#: [id number] Sodium Chloride 0.9% 1, 500 000 ml @ 100 mls/hr IV . Q10H [facility] Rx#:[id number] Blood Product 310 Rc As-1 Unit 310 [id number] Rc As-1 Unit 0 [id number] Output: Gastric Drainage 325 Urine 1400 575 Other: Weight 79.379 kg 79.379 kg Physical Exam: Revealed a 79-year-old female intubated, mechanically ventilated, sedated, in no distress. Head: Atraumatic, normocephalic. Endotracheal tube and orogastric tube are intact. HEENT:[Neck is supple.] [No neck masses.] [No thyromegaly.] [No JVD.] PERRLA, EOMI, no icterus. Chest: [Symmetrical chest expansion. Minimal fine crackles at the bases, no rhonchi, no wheezes. Cardiac Exam: [Normal S1 and S2, no S3 gallop, 2/6 systolic murmur thought the precordium. Abdomen: [Soft, nontender, no megaly, no rebound, no guarding, normal bowel sounds.] Extremities: [No clubbing, no edema, no cyanosis.] However there is evidence of diminished pulses in both feet bilaterally. There is evidence of gangrenous changes of the left fifth toe. Neurological Exam: Cannot be assessed, patient is sedated, on propofol drip. Psychiatric: Cannot be assessed. Skin: No rashes, however there is evidence of gangrenous changes of the left fifth toe. Musko skeletal cannot be assessed. There is good muscle tone, Results - Laboratory Findings CBC and BMP: 05/04/19 10:20 05/03/19 22:25 ABG ABG pH 7.38 (7.35-7.45) 05/04/19 09:35 ABG pCO2 27 mmHg (35-45) L 05/04/19 09:35 ABG pO2 142 mmHg (83-108) H 05/04/19 09:35 ABG O2 Saturation 99.7 % (94-97) H 05/04/19 09:35 PT/INR, D-dimer PT 13.6 sec (9.0-12.0) H 05/03/19 22:25 INR 1.4 (<1.2) H 05/03/19 22:25 Abnormal lab findings: Abnormal Labs 05/03/19 05/03/19 05/03/19 22:25 22:25 22:25 RBC 2.54 L Hgb 6.2 L* D Hct 21.2 L MCH 24.4 L MCHC 29.1 L RDW 20.3 H Lymphocytes # (Manual) Myelocytes # (Manual) Nucleated RBCs PT INR APTT ABG pH ABG pCO2 ABG pO2 ABG HCO3 ABG Total CO2 ABG O2 Saturation Sodium 135 L Carbon Dioxide 18 L BUN 34 H Glucose 262 H POC Glucose (mg/dL) Plasma Lactic Acid Marcos 2.6 H* AST 68 H ALT 36 H Alkaline Phosphatase 169 H Troponin I Total Protein 5.9 L Albumin 3.3 L Urine Protein Urine Glucose (UA) Urine Ketones Stool Occult Blood Crossmatch 05/03/19 05/03/19 05/03/19 22:25 22:25 22:25 RBC Hgb Hct MCH MCHC RDW Lymphocytes # (Manual) Myelocytes # (Manual) Nucleated RBCs PT 13.6 H INR 1.4 H APTT 20.1 L ABG pH ABG pCO2 ABG pO2 ABG HCO3 ABG Total CO2 ABG O2 Saturation Sodium Carbon Dioxide BUN Glucose POC Glucose (mg/dL) Plasma Lactic Acid Marcos AST ALT Alkaline Phosphatase Troponin I 0.108 H* Total Protein Albumin Urine Protein Urine Glucose (UA) Urine Ketones Stool Occult Blood Crossmatch See Detail 05/04/19 05/04/19 05/04/19 01:24 02:38 05:30 RBC Hgb Hct MCH MCHC RDW Lymphocytes # (Manual) Myelocytes # (Manual) Nucleated RBCs PT INR APTT ABG pH 7.14 L* ABG pCO2 32 L ABG pO2 383 H ABG HCO3 11 L ABG Total CO2 12 L ABG O2 Saturation 100.0 H Sodium Carbon Dioxide BUN Glucose POC Glucose (mg/dL) 477 H Plasma Lactic Acid Marcos AST ALT Alkaline Phosphatase Troponin I Total Protein Albumin Urine Protein Trace H Urine Glucose (UA) 4+ H Urine Ketones Trace H Stool Occult Blood Crossmatch 05/04/19 05/04/19 05/04/19 08:27 08:45 09:35 RBC Hgb Hct MCH MCHC RDW Lymphocytes # (Manual) Myelocytes # (Manual) Nucleated RBCs PT INR APTT ABG pH ABG pCO2 27 L ABG pO2 142 H ABG HCO3 16 L ABG Total CO2 17 L ABG O2 Saturation 99.7 H Sodium Carbon Dioxide BUN Glucose POC Glucose (mg/dL) 473 H Plasma Lactic Acid Marcos AST ALT Alkaline Phosphatase Troponin I Total Protein Albumin Urine Protein Urine Glucose (UA) Urine Ketones Stool Occult Blood Positive H Crossmatch 05/04/19 05/04/19 05/04/19 09:58 10:20 10:20 RBC 3.20 L Hgb 8.3 L D Hct 27.5 L MCH MCHC 30.3 L RDW 18.4 H Lymphocytes # (Manual) 0.86 L Myelocytes # (Manual) 0.09 H Nucleated RBCs 1 H PT INR APTT 57.8 H ABG pH ABG pCO2 ABG pO2 ABG HCO3 ABG Total CO2 ABG O2 Saturation Sodium Carbon Dioxide BUN Glucose POC Glucose (mg/dL) 409 H Plasma Lactic Acid Marcos AST ALT Alkaline Phosphatase Troponin I Total Protein Albumin Urine Protein Urine Glucose (UA) Urine Ketones Stool Occult Blood Crossmatch 05/04/19 05/04/19 05/04/19 10:20 10:20 10:24 RBC Hgb Hct MCH MCHC RDW Lymphocytes # (Manual) Myelocytes # (Manual) Nucleated RBCs PT INR APTT ABG pH ABG pCO2 ABG pO2 ABG HCO3 ABG Total CO2 ABG O2 Saturation Sodium Carbon Dioxide BUN Glucose POC Glucose (mg/dL) 378 H Plasma Lactic Acid Marcos 2.1 H* AST ALT Alkaline Phosphatase Troponin I 0.625 H* Total Protein Albumin Urine Protein Urine Glucose (UA) Urine Ketones Stool Occult Blood Crossmatch 05/04/19 05/04/19 05/04/19 11:10 12:13 13:13 RBC Hgb Hct MCH MCHC RDW Lymphocytes # (Manual) Myelocytes # (Manual) Nucleated RBCs PT INR APTT ABG pH ABG pCO2 ABG pO2 ABG HCO3 ABG Total CO2 ABG O2 Saturation Sodium Carbon Dioxide BUN Glucose POC Glucose (mg/dL) 339 H 309 H 246 H Plasma Lactic Acid Marcos AST ALT Alkaline Phosphatase Troponin I Total Protein Albumin Urine Protein Urine Glucose (UA) Urine Ketones Stool Occult Blood Crossmatch Assessment and Plan Assessment: Impression: 1: Acute hypoxic respiratory failure, exact etiology is not clear, patient was supposedly intubated to protect her airways and her immediate follow-up ABG showed mostly severe metabolic acidosis, I believe it is mostly hypoperfusional in nature, most likely secondary to severe anemia, most likely secondary to acute upper GI bleeding since the patient was noted to have coffee ground material in the nasogastric tube once it was placed. Possible acute myocardial infarction secondary to profound anemia. 2: Acute anemia most likely secondary to upper GI blood loss. Hence GI consultation was initiated, and the patient was placed on Protonix 40 mg IV push twice a day. 3: Possible non-ST elevation myocardial infarction with significantly abnormal troponin on admission. Cardiology was consulted. 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 And She contraindication to anticoagulations therapy. 5 type 2 diabetes with diabetic neuropathy 6 history of previous SC, and previous stent placement. 7 suspect mild congestive heart failure, not clear whether it is systolic or diastolic at this point. This is based on the chest x-ray findings. 8 acute exacerbation of COPD on presentation, presently on bronchodilators. 9 extensive history of smoking currently in remission for the last 6 months pat ient carries a history of [id number] smoking. 8 chronic atrial fibrillation/atrial flutter and permanent pacemaker implantation. Recommendation: Continue ventilatory support. Continue nutritional support, consult dietitian in a.m. for enteral feeding. continue GI and DVT prophylaxis. Patient is not to receive any heparin at this point, however will place on Protonix 40 mg IV push twice a day. Consult gastroenterology. Consult cardiology for her abnormal troponin Adjust ventilatory settings based on ABG as above. Vascular surgery evaluation which was already done, and not recommending heparin at this point. Resume bronchodilators. Daily assessment of x-rays, ABG, and assess for weaning on a daily basis. We'll continue to follow, prognosis is extremely poor and guarded at this point. Time with Patient: Greater than 30
[2019-05-04 15:18] LABS: Glucose,Whole Blood 196 mg/dL (75-99)
[2019-05-04] MEDS: methylPREDNISolone SOD SUCCI 40 MG/ML 1 ML VIAL IV SCH ×2 (15:59→23:27)
[2019-05-04] MEDS ORDERED: OXcarbazepine 150 MG TAB PO PRN (16:06)
[2019-05-04 16:11] LABS: Glucose,Whole Blood 159 mg/dL (75-99)
[2019-05-04 16:17] LABS: Anisocytosis Slight; HCT 29.2 % (34.0-46.0); HGB 8.5 gm/dL (11.4-16.0); Hypochromasia Marked; MCH 24.6 pg (25.0-35.0); MCV 84.9 fL (80.0-100.0); Mean Platelet Volume 10.1; Platelet Count 246 k/uL (150-450); Poikilocytosis Moderate; RBC 3.45 m/uL (3.80-5.40); RDW 18.5 % (11.5-15.5)
--- NOTE | 2019-05-04 16:24 | P.HPIM ---
History of Present Illness H&P Date: 05/04/19 Chief Complaint: Short of breath History of presenting complaint: This is a 79-year-old patient of Dr. Giraldo. Chronic stable medical conditions include coronary artery disease with stent, osteoarthritis, diabetic peripheral neuropathy, rosacea, atrial fibrillation on eliquis. Patient long-standing smoker. Patient has chronic wounds on the toes of the left foot. Known significant peripheral arterial disease. She does follow at the wound care center. Was followed by Dr. Rose from podiatry. Patient presented to the ER with increasing shortness of breath and wheezing. Progressively became more short of breath. Patient's hemoglobin was noted to be 6.2. Blood was ordered. Patient also had a consultation done to Dr. Wilcox from vascular surgery. Patient went into respiratory distress as she had also pulled out her nasal cannula when she is getting a computed tomography scan done. Patient had to be intubated. Transferred to the ICU. Currently FiO2 35% and PEEP of 5. Patient insulin drip and propofol drip. Review of systems: Cannot be done as patient intubated Social history: Lives alone. Smokes a pack a day for close to 65 years. No alcohol. Physical examination: VITAL SIGNS: 98.9-71-20-126/67-100% on the ventilator GENERAL: BMI 29.1, laying in bed, intubated, EYES: Pupils equal. Conjunctiva normal. HEENT: External appearance of nose and ears normal, oral cavity grossly normal. NECK: JVD not raised; masses not palpable. HEART: Irregular heart sounds, minimal edema. LUNGS: Respiratory rate increased, diminished breath sounds on expiration some wheezing. ABDOMEN: Soft, nontender, liver spleen not palpable, no masses palpable. PSYCH: Intubated, sedated NEUROLOGICAL: Cranial nerves grossly intact; no facial asymmetry, LYMPHATICS: No lymph nodes palpable in the axilla and neck EXTREMITY: Noted dry gangrenous changes of the left small toe and ischemic changes in the other toes, especially the second toe INVESTIGATIONS, reviewed in the clinical context: White count 8.1 hemoglobin 6.2 potassium 5 bun 34 creatinine 0.82 After receiving 2 units of blood-hemoglobin 8.3 Potassium 5 bun 34 crit 0.82 Plasma lactic acid 2.6 Troponin I 0.108 Chest x-ray film personally reviewed by me-pulmonary edema EKG tracing personally reviewed by me-normal sinus rhythm with some flipped T waves in inferolateral leads Assessment: -Acute COPD exacerbation and a smoker -Acute hypoxic respiratory failure, requiring ventilator assistance -chronic f ulcers resulting from poor circulation in the left foot with changes of early gangrene in the left small toe. secondary to peripheral arterial disease -Chronic nicotine dependence patient active cigarette smoker -Persistent atrial fibrillation chronically on eliquis -Coronary artery disease a prior history of stent -Primary osteoarthritis -Diabetic peripheral neuropathy -Severe peripheral arterial disease Plan: Patient seen by Dr. Wilcox from vascular surgery. Not for any acute intervention. Patient currently intubated on the ventilator. Other medications to continue. IV fluids. 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 Past Medical History Past Medical History: Heart Failure, Diabetes Mellitus, Myocardial Infarction (SC), COPD, Diabetes Mellitus, Myocardial Infarction (SC), Osteoarthritis (OA), Skin Disorder, Vascular Disorder Additional Past Medical History / Comment(s): Leg pain, Trigeminal Neuralgia, Diabetic Neuropathy, SC 1994, ROSCACEA Last Myocardial Infarction Date:: 1994 History of Any Multi-Drug Resistant Organisms: None Reported Past Surgical History: Appendectomy, Cholecystectomy, Heart Catheterization With Stent, Hysterectomy, Orthopedic Surgery, Pacemaker Additional Past Surgical History / Comment(s): Arthrectomy rt leg, Angioplasty, Pacemaker August 2016, left Foot Surgery, one heart stent Past Anesthesia/Blood Transfusion Reactions: No Reported Reaction Date of Last Stent Placement:: 1994 Type of Cardiac Device: Permanent Pacemaker Device Placement Date:: August 2016 Past Psychological History: No Psychological Hx Reported Smoking Status: Former smoker - Past Family History Father Family Medical History: Myocardial Infarction (SC) Mother Family Medical History: Congestive Heart Failure (CHF), CVA/TIA, Diabetes Mellit us Medications and Allergies Home Medications Medication Instructions Recorded Confirmed Type ALPRAZolam [Xanax] 0.25 mg PO HS 09/16/16 05/04/19 History Ipratropium-Albuterol Nebulize 3 ml INHALATION BID 09/16/16 02/15/19 History [Duoneb 0.5 mg-3 mg/3 ml Soln] Montelukast [Singulair] 10 mg PO HS #30 tab 09/20/16 05/04/19 Rx Budesonide-Formot 160-4.5 Mcg 2 puff INHALATION RT-BID PRN 10/05/16 02/15/19 History [Symbicort 160-4.5 Mcg Inhaler] Cholecalciferol [Vitamin D3 (25 5,000 unit PO BID 07/18/17 05/04/19 History Mcg = 1000 Iu)] Cyanocobalamin (Vitamin B-12) 1,000 mcg PO BID 07/18/17 05/04/19 History [Vitamin B-12] Dapagliflozin Propanediol [Farxiga] 5 mg PO DAILY 07/18/17 05/04/19 History Losartan [Cozaar] 50 mg PO QAM 07/18/17 05/04/19 History Acetaminophen [Tylenol Extra 500 mg PO Q6HR PRN 07/20/17 05/04/19 History Strength] Pregabalin [Lyrica] 150 mg PO BID cap 02/01/18 05/04/19 Rx Liraglutide [Victoza 2-Orlin] 1.8 mg SQ HS 12/26/18 02/15/19 History Apixaban [Eliquis] 5 mg PO BID tab 12/27/18 05/04/19 Rx Clopidogrel [Plavix] 75 mg PO DAILY 01/10/19 05/04/19 History Furosemide [Lasix] 20 mg PO DAILY 01/10/19 05/04/19 History OXcarbazepine [Trileptal] 300 mg PO BID 01/10/19 05/04/19 History Rosuvastatin [Crestor] 20 mg PO HS 01/10/19 05/04/19 History OXcarbazepine [Trileptal] 150 mg PO DAILY PRN 02/15/19 02/15/19 History metFORMIN HCL [metFORMIN HCL ER] 750 mg PO BID 02/15/19 05/04/19 History HYDROcodone/APAP 5-325MG [[place] 1 each PO Q6HR PRN #12 tab 02/25/19 Rx 5-325] Allergies Allergy/AdvReac Type Severity Reaction Status Date / Time codeine AdvReac Nausea & Verified 05/03/19 22:06 Vomiting sitagliptin [From ] AdvReac frequent Verified 05/03/19 22:06 UTI Physical Exam Vitals: Vital Signs Temp Pulse Resp BP Pulse Ox 05/04/19 11:00 70 22 128/66 100 05/04/19 10:30 73 22 125/68 100 05/04/19 10:00 69 23 133/76 100 05/04/19 09:30 68 22 130/77 100 05/04/19 09:00 65 23 126/69 100 05/04/19 08:30 98.7 F 66 25 H 154/80 100 05/04/19 08:22 69 26 H 05/04/19 07:53 70 18 144/75 100 05/04/19 07:24 97.7 F 70 20 154/82 100 05/04/19 05:30 98 F 66 18 142/81 100 05/04/19 05:12 98 F 82 16 142/81 100 05/04/19 05:00 69 20 134/79 100 05/04/19 04:42 98.2 F 74 16 132/74 100 05/04/19 04:32 98.1 F 75 16 134/79 05/04/19 04:30 72 16 137/71 100 05/04/19 04:21 98 F 71 16 132/75 100 05/04/19 04:00 97.8 F 68 31 H 113/72 100 05/04/19 03:30 74 25 H 112/66 05/04/19 03:00 70 18 111/61 98 05/04/19 02:44 97.9 F 90 16 111/60 99 05/04/19 02:30 80 28 H 116/68 05/04/19 02:14 97.6 F 85 16 116/68 98 05/04/19 02:04 97.4 F L 85 18 112/60 05/04/19 02:00 83 32 H 186/59 98 05/04/19 01:54 82 05/04/19 01:40 84 05/04/19 01:30 84 29 H 111/81 100 05/04/19 01:10 83 26 H 122/77 100 05/03/19 23:11 93 18 135/69 100 05/03/19 22:00 97.9 F 78 18 146/70 98 Intake and Output 05/03/19 05/04/19 05/04/19 22:59 06:59 14:59 Intake Total 327.702 311.766 Output Total 1400 755 Balance -1072.298 443.234 Intake: Intake, IV Titration 17.702 311.766 Amount Insulin Regular 100 unit 11.766 In Sodium Chloride 0.9% 100 ml @ Per Protocol IV .Q0M [facility] Rx#:[id number] Propofol 1,000 mg In 17.702 Empty Bag 1 bag @ Titrate IV .Q0M [facility] Rx#: [id number] Sodium Chloride 0.9% 1, 300 000 ml @ 100 mls/hr IV . Q10H [facility] Rx#:[id number] Blood Product 310 Rc As-1 Unit 310 [id number] Rc As-1 Unit 0 [id number] Output: Gastric Drainage 325 Urine 1400 430 Other: Weight 79.379 kg Results CBC & Chem 7: 05/04/19 10:20 05/03/19 22:25 Labs: Abnormal Lab Results - Last 24 Hours (Table) 05/03/19 05/03/19 05/03/19 Range/Units 22:25 22:25 22:25 RBC 2.54 L (3.80-5.40) m/uL Hgb 6.2 L* D (11.4-16.0) gm/dL Hct 21.2 L (34.0-46.0) % MCH 24.4 L (25.0-35.0) pg MCHC 29.1 L (31.0-37.0) g/dL RDW 20.3 H (11.5-15.5) % Lymphocytes # (Manual) (1.0-4.8) k/uL Myelocytes # (Manual) (0) k/uL Nucleated RBCs (0-0) /100 WBC PT (9.0-12.0) sec INR (<1.2) APTT (22.0-30.0) sec ABG pH (7.35-7.45) ABG pCO2 (35-45) mmHg ABG pO2 (83-108) mmHg ABG HCO3 (21-25) mmol/L ABG Total CO2 (19-24) mmol/L ABG O2 Saturation (94-97) % Sodium 135 L (137-145) mmol/L Carbon Dioxide 18 L (22-30) mmol/L BUN 34 H (7-17) mg/dL Glucose 262 H (74-99) mg/dL POC Glucose (mg/dL) (75-99) mg/dL Plasma Lactic Acid Naveen 2.6 H* (0.7-2.0) mmol/L AST 68 H (14-36) U/L ALT 36 H (4-34) U/L Alkaline Phosphatase 169 H (38-126) U/L Troponin I (0.000-0.034) ng/mL Total Protein 5.9 L (6.3-8.2) g/dL Albumin 3.3 L (3.5-5.0) g/dL Urine Protein (Negative) Urine Glucose (UA) (Negative) Urine Ketones (Negative) Stool Occult Blood (Negative) Crossmatch 05/03/19 05/03/19 05/03/19 Range/Units 22:25 22:25 22:25 RBC (3.80-5.40) m/uL Hgb (11.4-16.0) gm/dL Hct (34.0-46.0) % MCH (25.0-35.0) pg MCHC (31.0-37.0) g/dL RDW (11.5-15.5) % Lymphocytes # (Manual) (1.0-4.8) k/uL Myelocytes # (Manual) (0) k/uL Nucleated RBCs (0-0) /100 WBC PT 13.6 H (9.0-12.0) sec INR 1.4 H (<1.2) APTT 20.1 L (22.0-30.0) sec ABG pH (7.35-7.45) ABG pCO2 (35-45) mmHg ABG pO2 (83-108) mmHg ABG HCO3 (21-25) mmol/L ABG Total CO2 (19-24) mmol/L ABG O2 Saturation (94-97) % Sodium (137-145) mmol/L Carbon Dioxide (22-30) mmol/L BUN (7-17) mg/dL Glucose (74-99) mg/dL POC Glucose (mg/dL) (75-99) mg/dL Plasma Lactic Acid Naveen (0.7-2.0) mmol/L AST (14-36) U/L ALT (4-34) U/L Alkaline Phosphatase (38-126) U/L Troponin I 0.108 H* (0.000-0.034) ng/mL Total Protein (6.3-8.2) g/dL Albumin (3.5-5.0) g/dL Urine Protein (Negative) Urine Glucose (UA) (Negative) Urine Ketones (Negative) Stool Occult Blood (Negative) Crossmatch See Detail 05/04/19 05/04/19 05/04/19 Range/Units 01:24 02:38 05:30 RBC (3.80-5.40) m/uL Hgb (11.4-16.0) gm/dL Hct (34.0-46.0) % MCH (25.0-35.0) pg MCHC (31.0-37.0) g/dL RDW (11.5-15.5) % Lymphocytes # (Manual) (1.0-4.8) k/uL Myelocytes # (Manual) (0) k/uL Nucleated RBCs (0-0) /100 WBC PT (9.0-12.0) sec INR (<1.2) APTT (22.0-30.0) sec ABG pH 7.14 L* (7.35-7.45) ABG pCO2 32 L (35-45) mmHg ABG pO2 383 H (83-108) mmHg ABG HCO3 11 L (21-25) mmol/L ABG Total CO2 12 L (19-24) mmol/L ABG O2 Saturation 100.0 H (94-97) % Sodium (137-145) mmol/L Carbon Dioxide (22-30) mmol/L BUN (7-17) mg/dL Glucose (74-99) mg/dL POC Glucose (mg/dL) 477 H (75-99) mg/dL Plasma Lactic Acid Naveen (0.7-2.0) mmol/L AST (14-36) U/L ALT (4-34) U/L Alkaline Phosphatase (38-126) U/L Troponin I (0.000-0.034) ng/mL Total Protein (6.3-8.2) g/dL Albumin (3.5-5.0) g/dL Urine Protein Trace H (Negative) Urine Glucose (UA) 4+ H (Negative) Urine Ketones Trace H (Negative) Stool Occult Blood (Negative) Crossmatch 05/04/19 05/04/19 05/04/19 Range/Units 08:27 08:45 09:35 RBC (3.80-5.40) m/uL Hgb (11.4-16.0) gm/dL Hct (34.0-46.0) % MCH (25.0-35.0) pg MCHC (31.0-37.0) g/dL RDW (11.5-15.5) % Lymphocytes # (Manual) (1.0-4.8) k/uL Myelocytes # (Manual) (0) k/uL Nucleated RBCs (0-0) /100 WBC PT (9.0-12.0) sec INR (<1.2) APTT (22.0-30.0) sec ABG pH (7.35-7.45) ABG pCO2 27 L (35-45) mmHg ABG pO2 142 H (83-108) mmHg ABG HCO3 16 L (21-25) mmol/L ABG Total CO2 17 L (19-24) mmol/L ABG O2 Saturation 99.7 H (94-97) % Sodium (137-145) mmol/L Carbon Dioxide (22-30) mmol/L BUN (7-17) mg/dL Glucose (74-99) mg/dL POC Glucose (mg/dL) 473 H (75-99) mg/dL Plasma Lactic Acid Naveen (0.7-2.0) mmol/L AST (14-36) U/L ALT (4-34) U/L Alkaline Phosphatase (38-126) U/L Troponin I (0.000-0.034) ng/mL Total Protein (6.3-8.2) g/dL Albumin (3.5-5.0) g/dL Urine Protein (Negative) Urine Glucose (UA) (Negative) Urine Ketones (Negative) Stool Occult Blood Positive H (Negative) Crossmatch 05/04/19 05/04/19 05/04/19 Range/Units 09:58 10:20 10:20 RBC 3.20 L (3.80-5.40) m/uL Hgb 8.3 L D (11.4-16.0) gm/dL Hct 27.5 L (34.0-46.0) % MCH (25.0-35.0) pg MCHC 30.3 L (31.0-37.0) g/dL RDW 18.4 H (11.5-15.5) % Lymphocytes # (Manual) 0.86 L (1.0-4.8) k/uL Myelocytes # (Manual) 0.09 H (0) k/uL Nucleated RBCs 1 H (0-0) /100 WBC PT (9.0-12.0) sec INR (<1.2) APTT 57.8 H (22.0-30.0) sec ABG pH (7.35-7.45) ABG pCO2 (35-45) mmHg ABG pO2 (83-108) mmHg ABG HCO3 (21-25) mmol/L ABG Total CO2 (19-24) mmol/L ABG O2 Saturation (94-97) % Sodium (137-145) mmol/L Carbon Dioxide (22-30) mmol/L BUN (7-17) mg/dL Glucose (74-99) mg/dL POC Glucose (mg/dL) 409 H (75-99) mg/dL Plasma Lactic Acid Naveen (0.7-2.0) mmol/L AST (14-36) U/L ALT (4-34) U/L Alkaline Phosphatase (38-126) U/L Troponin I (0.000-0.034) ng/mL Total Protein (6.3-8.2) g/dL Albumin (3.5-5.0) g/dL Urine Protein (Negative) Urine Glucose (UA) (Negative) Urine Ketones (Negative) Stool Occult Blood (Negative) Crossmatch 05/04/19 05/04/19 05/04/19 Range/Units 10:20 10:20 10:24 RBC (3.80-5.40) m/uL Hgb (11.4-16.0) gm/dL Hct (34.0-46.0) % MCH (25.0-35.0) pg MCHC (31.0-37.0) g/dL RDW (11.5-15.5) % Lymphocytes # (Manual) (1.0-4.8) k/uL Myelocytes # (Manual) (0) k/uL Nucleated RBCs (0-0) /100 WBC PT (9.0-12.0) sec INR (<1.2) APTT (22.0-30.0) sec ABG pH (7.35-7.45) ABG pCO2 (35-45) mmHg ABG pO2 (83-108) mmHg ABG HCO3 (21-25) mmol/L ABG Total CO2 (19-24) mmol/L ABG O2 Saturation (94-97) % Sodium (137-145) mmol/L Carbon Dioxide (22-30) mmol/L BUN (7-17) mg/dL Glucose (74-99) mg/dL POC Glucose (mg/dL) 378 H (75-99) mg/dL Plasma Lactic Acid Naveen 2.1 H* (0.7-2.0) mmol/L AST (14-36) U/L ALT (4-34) U/L Alkaline Phosphatase (38-126) U/L Troponin I 0.625 H* (0.000-0.034) ng/mL Total Protein (6.3-8.2) g/dL Albumin (3.5-5.0) g/dL Urine Protein (Negative) Urine Glucose (UA) (Negative) Urine Ketones (Negative) Stool Occult Blood (Negative) Crossmatch 05/04/19 Range/Units 11:10 RBC (3.80-5.40) m/uL Hgb (11.4-16.0) gm/dL Hct (34.0-46.0) % MCH (25.0-35.0) pg MCHC (31.0-37.0) g/dL RDW (11.5-15.5) % Lymphocytes # (Manual) (1.0-4.8) k/uL Myelocytes # (Manual) (0) k/uL Nucleated RBCs (0-0) /100 WBC PT (9.0-12.0) sec INR (<1.2) APTT (22.0-30.0) sec ABG pH (7.35-7.45) ABG pCO2 (35-45) mmHg ABG pO2 (83-108) mmHg ABG HCO3 (21-25) mmol/L ABG Total CO2 (19-24) mmol/L ABG O2 Saturation (94-97) % Sodium (137-145) mmol/L Carbon Dioxide (22-30) mmol/L BUN (7-17) mg/dL Glucose (74-99) mg/dL POC Glucose (mg/dL) 339 H (75-99) mg/dL Plasma Lactic Acid Naveen (0.7-2.0) mmol/L AST (14-36) U/L ALT (4-34) U/L Alkaline Phosphatase (38-126) U/L Troponin I (0.000-0.034) ng/mL Total Protein (6.3-8.2) g/dL Albumin (3.5-5.0) g/dL Urine Protein (Negative) Urine Glucose (UA) (Negative) Urine Ketones (Negative) Stool Occult Blood (Negative) Crossmatch Microbiology - Last 24 Hours (Table) 05/04/19 00:30 Sputum Culture - Preliminary Sputum
[2019-05-04 16:45] LABS: Eosinophils # (M) 0.14 k/uL (0-0.7); Neutrophils % (M) 65 %; Nucleated Red Blood Cells 1 /100 WBC (0-0); Total Cells Counted 200
[2019-05-04 16:49] LABS: Lymphocytes # (M) 2.21 k/uL (1.0-4.8); Monocytes # (M) 2.62 k/uL (0-1.0); Neutrophils # (M) 8.97 k/uL (1.3-7.7); WBC 13.8 k/uL (3.8-10.6)
[2019-05-04 16:50] LABS: Poikilocytosis (M) Present; Polychromasia Present
[2019-05-04 17:11] LABS: Glucose,Whole Blood 171 mg/dL (75-99)
[2019-05-04 18:07] LABS: Glucose,Whole Blood 183 mg/dL (75-99)
[2019-05-04 18:07] LABS: Glucose,Whole Blood 200 mg/dL (75-99)
[2019-05-04 19:03] LABS: Glucose,Whole Blood 159 mg/dL (75-99)
[2019-05-04] MEDS: BUDESONIDE 1 MG/2 ML NEBU INHALATION SCH (19:51)
[2019-05-04] MEDS: FORMOTEROL FUMARATE 20 MCG/2 ML NEBU INHALATION SCH (19:51)
[2019-05-04 20:19] LABS: Glucose,Whole Blood 190 mg/dL (75-99)
[2019-05-04] MEDS: PREGABALIN 75 MG CAP PO SCH (20:31)
[2019-05-04] MEDS: ATORVASTATIN 40 MG TAB PO SCH (20:31)
[2019-05-04] MEDS: CHLORHEXIDINE GLUCONATE 15 ML CUP MUCOUS MEM SCH (20:32)
[2019-05-04] MEDS: PANTOPRAZOLE 40 MG/10 ML VIAL IV SCH (20:32)
[2019-05-04] MEDS: OXcarbazepine 300 MG TAB PO SCH (20:32)
[2019-05-04 20:57] LABS: Glucose,Whole Blood 195 mg/dL (75-99)
[2019-05-04] MEDS ORDERED: MONTELUKAST 10 MG TAB PO SCH (21:00)
[2019-05-04 22:03] LABS: Glucose,Whole Blood 207 mg/dL (75-99)
[2019-05-04 22:18] LABS: Anisocytosis Slight; HCT 28.4 % (34.0-46.0); HGB 8.5 gm/dL (11.4-16.0); Hypochromasia Marked; MCH 25.5 pg (25.0-35.0); MCHC 29.8 g/dL (31.0-37.0); MCV 85.4 fL (80.0-100.0); Mean Platelet Volume 9.7; Platelet Count 235 k/uL (150-450); Poikilocytosis Moderate; RBC 3.32 m/uL (3.80-5.40); RDW 18.8 % (11.5-15.5)
[2019-05-04 22:54] LABS: Anisocytosis (M) Present; Band Neutrophils % 8 %; Lymphocytes # (M) 0.69 k/uL (1.0-4.8); Metamyelocytes # (M) 0.12 k/uL (0); Metamyelocytes % 1 %; Monocytes # (M) 0.35 k/uL (0-1.0); Neutrophils % (M) 82 %; Nucleated Red Blood Cells 3 /100 WBC (0-0); Poikilocytosis (M) Present; Total Cells Counted 200; WBC 11.5 k/uL (3.8-10.6)
[2019-05-04 22:55] LABS: Hypochromasia (M) Pres; Ovalocytes Present; Polychromasia Present
[2019-05-04 22:59] LABS: Glucose,Whole Blood 181 mg/dL (75-99)
[2019-05-05 01:00] LABS: Glucose,Whole Blood 155 mg/dL (75-99)
[2019-05-05 02:11] LABS: Glucose,Whole Blood 165 mg/dL (75-99)
[2019-05-05 02:54] LABS: Glucose,Whole Blood 175 mg/dL (75-99)
[2019-05-05 03:53] LABS: Glucose,Whole Blood 169 mg/dL (75-99)
[2019-05-05 04:48] LABS: Albumin 2.9 g/dL (3.5-5.0); Magnesium 2.4 mg/dL (1.6-2.3); Phosphorus 3.1 mg/dL (2.5-4.5); Potassium 4.6 mmol/L (3.5-5.1); Total Bilirubin 0.6 mg/dL (0.2-1.3); Total Protein 5.3 g/dL (6.3-8.2)
[2019-05-05 04:56] LABS: Glucose,Whole Blood 181 mg/dL (75-99)
[2019-05-05] MEDS: PROPOFOL 1,000 MG in EMPTY BAG 1 BAG IV SCH (05:00)
[2019-05-05 05:03] LABS: Anisocytosis Slight; HCT 27.1 % (34.0-46.0); Hypochromasia Marked; MCH 25.4 pg (25.0-35.0); MCHC 29.7 g/dL (31.0-37.0); MCV 85.6 fL (80.0-100.0); Mean Platelet Volume 9.8; Platelet Count 249 k/uL (150-450); Poikilocytosis Moderate; RBC 3.16 m/uL (3.80-5.40); RDW 18.7 % (11.5-15.5); WBC 11.1 k/uL (3.8-10.6)
[2019-05-05 05:38] LABS: Anisocytosis (M) Present; Band Neutrophils % 4 %; Hypochromasia (M) Present; Lymphocytes # (M) 0.22 k/uL (1.0-4.8); Monocytes # (M) 0.22 k/uL (0-1.0); Neutrophils % (M) 92 %; Nucleated Red Blood Cells 0 /100 WBC (0-0); Ovalocytes Present; Poikilocytosis (M) Present; Polychromasia Present; Total Cells Counted 100
--- NOTE | 2019-05-05 06:33 | CONS ---
CONSULTATION CHIEF COMPLAINT: Elevated troponin. Ariadne is a 79-year-old lady with history of coronary artery disease, diabetic neuropathy, atrial fibrillation, who presented to hospital with ulceration of the left foot, has known peripheral arterial disease. She initially came to the ER complaining of shortness of breath and became progressively more short of breath and had to be intubated and placed on vent. Her hemoglobin came back at 6.2 and she had been transfused. The patient is currently intubated on vent and in the ICU. I have been asked to see her because of elevated troponin. The troponin is at 0.1 and 0.6. Hemoglobin has improved to 8.5. 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 She has bilateral peripheral arterial disease with prior bilateral intervention. PAST MEDICAL HISTORY: Significant for coronary artery disease, atrial fibrillation, diabetes, and peripheral arterial disease. MEDICATIONS: Include metformin, Crestor, Lyrica, Trileptal, Singulair, Cozaar, Lasix, Plavix, Eliquis, nebulizers. Family history, social history, review of systems I am unable to obtain from the patient who is intubated. On exam, heart rate is 70 beats per minute. Blood pressure is 130/70, respirations 18. There is no jugular venous distention. Carotid upstroke is diminished. There is no bruit. Chest exam reveals good air entry bilaterally. Heart exam reveals first and second heart sounds. No gallop. Exam of extremities reveal ulcer over the left foot. Distal pulses are absent bilaterally. EKG showed atrial fibrillation with inferolateral ST-T wave changes of ischemia. ASSESSMENT: 1. Non ST-segment elevation myocardial infarction. 2. Anemia. 3. Peripheral arterial disease. 4. Respiratory failure. PLAN: She is not a candidate for any invasive procedures. Not a candidate for intravenous heparin at this time. I will obtain a 2D echo to assess her LV function and decide on further course of action. MMODL / IJN: [id number] /
[2019-05-05 06:51] LABS: Glucose,Whole Blood 184 mg/dL (75-99)
[2019-05-05 07:14] LABS: ABG Base Excess -3.9 mmol/L; ABG HCO3 21 mmol/L (21-25); ABG Oxygen Saturation 99.2 % (94-97); ABG PCO2 33 mmHg (35-45); ABG PH 7.41 (7.35-7.45); ABG PO2 116 mmHg (83-108); ABG TCO2 22 mmol/L (19-24); Allen Test Performed? Yes
[2019-05-05] MEDS: BUDESONIDE 1 MG/2 ML NEBU INHALATION SCH ×2 (07:23→20:20)
[2019-05-05] MEDS: FORMOTEROL FUMARATE 20 MCG/2 ML NEBU INHALATION SCH ×2 (07:23→20:20)
[2019-05-05] MEDS: PANTOPRAZOLE 40 MG/10 ML VIAL IV SCH ×2 (07:51→20:29)
[2019-05-05] MEDS: OXcarbazepine 300 MG TAB PO SCH ×2 (07:51→20:03)
[2019-05-05] MEDS: CHLORHEXIDINE GLUCONATE 15 ML CUP MUCOUS MEM SCH (07:51)
[2019-05-05] MEDS: PREGABALIN 75 MG CAP PO SCH ×2 (07:51→20:03)
[2019-05-05] MEDS: methylPREDNISolone SOD SUCCI 40 MG/ML 1 ML VIAL IV SCH ×2 (07:52→20:29)
[2019-05-05 08:00] LABS: Glucose,Whole Blood 144 mg/dL (75-99)
--- NOTE | 2019-05-05 08:18 | XR ---
EXAMINATION TYPE: XR chest 1V portable DATE OF EXAM: 05/05/2019 COMPARISON: 05/04/2019 HISTORY: Shortness of breath FINDINGS: There are bilateral pleural effusions with cardiomegaly and bibasilar infiltrate. There is a diffuse interstitial pattern. Hyperinflation suggests COPD. ET tube noted. NG tube seen coursing in the left upper quadrant of the abdomen. Cardiac device seen. No sizable pneumothorax. IMPRESSION: 1. Findings persist suggestive of CHF superimposed on a background of COPD.
[2019-05-05 08:57] LABS: Glucose,Whole Blood 160 mg/dL (75-99)
[2019-05-05] MEDS ORDERED: FUROSEMIDE 10 MG/ML 4 ML VIAL IV STA (09:15)
[2019-05-05 10:02] LABS: Glucose,Whole Blood 160 mg/dL (75-99)
--- NOTE | 2019-05-05 10:18 | PN ---
PROGRESS NOTE PULMONARY/CRITICAL CARE PROGRESS NOTE: DATE OF SERVICE: May 05, 2019 Critical care time is 33 minutes. This is a 79-year-old female who was admitted on May 04 for shortness of breath. She apparently was intubated in the emergency room on May 04 as well for respiratory failure and non ST-segment elevation myocardial infarction. She apparently went down for a CT scan, got agitated, was brought back to the ER and apparently was intubated there. She was found to be anemic and received 2 units of PRBCs. She has a history of COPD, CHF, diabetes, myocardial infarction, CAD, pacemaker insertion, and peripheral vascular disease. Currently, the patient remains on the ventilator. She might be able to be weaned and extubated. We are going to do a daily interruption of sedation. She is going to get Lasix 40 mg IV push today because of the blood she got yesterday. Currently, she is on the volume assist-control mode rate of 16, tidal volume 450, FiO2 of 35%, PEEP of 5. Blood gases show a pO2 of 116, pCO2 of 33 and a pH is 7.41. These blood gases are consistent with hyperoxia and a mixed acid-base disturbance including a respiratory alkalosis and a mild metabolic acidosis. She is getting insulin at 3.5 units an hour, Diprivan at 40 mcg/kg per minute, which is currently on hold and a saline IV at 50 mL an hour. No tube feeds have been started. The patient apparently does have an extensive tobacco history, smoking for many, many years. She also has a history of chronic atrial fibrillation/flutter, which necessitated the pacemaker. PHYSICAL EXAMINATION: VITAL SIGNS: Currently, her vital signs include a temperature 98.1, heart rate 60, respiratory rate 20, blood pressure 115/65, mean 81, and saturations of 100%. GENERAL: She appears in no acute distress. She is sedated. HEENT: Examination is grossly unremarkable. There is an orally placed endotracheal tube and NG tube. NECK: Supple. Full range of motion. No adenopathy or thyromegaly. Neck veins are flat. CARDIOVASCULAR: Examination reveals regular rhythm and rate. Heart rate 60. S1, S2 normal. Heart sounds are distant. LUNGS: Reveal a few scattered rhonchi. No wheezes or crackles. ABDOMEN: Soft. Bowel sounds are not noted. EXTREMITIES: Are intact. Mild edema. SKIN: Without rash. NEUROLOGIC: Examination could not be adequately assessed as she is currently sedated. MICROBIOLOGY: Currently is all negative. LABS: Labs are reviewed. From the 10th, white count 11.1, hemoglobin up to 8 from 6.2, hematocrit 27.1, platelet count 249,000. PT, INR were 13.6 and 1.4. Blood gases have been noted. Sodium 137, potassium 4.6, chloride 112, CO2 19. Anion gap is 6. BUN and creatinine are 30 and 0.78. These electrolytes are consistent with a hyperchloremic non-anion gap metabolic acidosis. Blood sugar was 160. Calcium 8, magnesium 2.4. Troponin was 0.108 and 0.625. Albumin 2.9. Urine had trace protein, 4+ glucose, trace ketones. Stools for occult blood were positive. Influenza A and B studies were negative. Chest x-ray shows some mild changes of CHF. CURRENT MEDICATIONS: Current medications are reviewed. He is currently on Lipitor, Pulmicort, chlorhexidine, Plavix, formoterol, insulin protocol, Solu-Medrol, Singulair, Trileptal, Protonix, Lyrica, propofol and saline IV. ASSESSMENT: 1. Acute hypoxemic respiratory failure, of unclear etiology. The patient was apparently initially seen in the emergency room and then sent back to the emergency room with worsening respiratory status and was intubated. 2. Non ST-segment elevation myocardial infarction. 3. Acute anemia, status post 2 units of PRBCs. 4. 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 5. Type 2 diabetes mellitus with diabetic neuropathy. 6. History of previous myocardial infarction with previous stent placement. 7. Mild congestive heart failure. 8. Chronic obstructive pulmonary disease exacerbation. 9. Previous history of extensive tobacco use and nicotine addiction. 10.History of chronic atrial fibrillation with previous pacemaker insertion. 11.Peripheral vascular occlusive disease. PLAN: The patient will be given Lasix 40 mg IV push. We dropped the tidal volume from 450 to 350 and increased the rate of 20. The FiO2 was dropped from 35% to 30%. She did receive 2 units of blood. She gets Lasix 40 mg IV push. The patient remains on the insulin drip. The patient's Diprivan will be placed on hold. We will do a daily interruption of sedation and a spontaneous breathing trial if she is appropriate. This will include a full set of weaning parameters. We will do a cuff leak. If appropriate, the patient could be extubated. Additional recommendations and suggestions are forthcoming. Prognosis is guarded. Cardiology is on board. Gastroenterology has been consulted for the GI bleed. Vascular Surgery has evaluated the patient as well. Apparently, no need for heparin at this time. Additional recommendations and suggestions are forthcoming. CRITICAL CARE TIME: 33 minutes. MMCHRISTOPHERL / IJN: [id number] /
[2019-05-05 10:40] LABS: Anisocytosis Slight; HCT 30.3 % (34.0-46.0); HGB 8.7 gm/dL (11.4-16.0); Hypochromasia Marked; MCH 24.8 pg (25.0-35.0); MCHC 28.8 g/dL (31.0-37.0); MCV 86.3 fL (80.0-100.0); Mean Platelet Volume 9.7; Platelet Count 232 k/uL (150-450); Poikilocytosis Marked; RBC 3.52 m/uL (3.80-5.40)
[2019-05-05 11:06] LABS: Glucose,Whole Blood 170 mg/dL (75-99)
[2019-05-05 11:42] LABS: Lymphocytes # (M) 1.18 k/uL (1.0-4.8); Monocytes # (M) 1.05 k/uL (0-1.0); Myelocytes # (M) 0.13 k/uL (0); Myelocytes % 1 %; Neutrophils # (M) 10.87 k/uL (1.3-7.7); Neutrophils % (M) 83 %; Nucleated Red Blood Cells 2 /100 WBC (0-0); Total Cells Counted 200; WBC 13.1 k/uL (3.8-10.6)
[2019-05-05 11:43] LABS: Polychromasia Present; RBC Fragments Present
--- NOTE | 2019-05-05 11:50 | PN ---
PROGRESS NOTE Ariadne is a 79-year-old lady that is admitted to hospital with acute respiratory failure and Cardiology had been consulted because of mild elevation in troponin. This morning patient is extubated. She is hemodynamically stable. Blood pressure is somewhat elevated. I am going to resume the losartan that she was on and continue the Lipitor and Plavix. She has peripheral vascular insufficiency, which is thought to be chronic and that it does not require intervention at this time. Patient had an echo, results are pending at this time. PHYSICAL EXAMINATION: On exam, heart rate is 70 beats per minute, blood pressure is 140/84, respiratory rate is 18. Chest exam reveals diminished air entry at the bases. Heart exam reveals first and second heart sounds and a systolic murmur at the apex. Abdomen is soft. Exam of the extremities reveals absent pulses, evidence of chronic peripheral arterial insufficiency. LABS: Labs show a hemoglobin of 8.7, white cell count is 13.4, platelet count is 232. ASSESSMENT: 1. Mild troponin elevation probably is secondary to supply demand mismatch as a result of hypoxia. 2. Peripheral arterial insufficiency. 3. Acute symptomatic anemia. Hemoglobin is stable now. PLAN: Patient had been started back on Plavix, whenever it is okay with GI will resume the Eliquis. Resume the Crestor today. I will review the 2D echocardiogram once it is available. MMODL / IJN: [id number] /
[2019-05-05 12:49] LABS: Glucose,Whole Blood 167 mg/dL (75-99)
[2019-05-05 14:08] LABS: Glucose,Whole Blood 174 mg/dL (75-99)
--- NOTE | 2019-05-05 14:14 | P.PN ---
Progress Note - Text Progress Note Date: 05/05/19 Chief Complaint: Short of breath History of presenting complaint: This is a 79-year-old patient of Dr. Giraldo. Chronic stable medical conditions include coronary artery disease with stent, osteoarthritis, diabetic peripheral neuropathy, rosacea, atrial fibrillation on eliquis. Patient long-standing smoker. Patient has chronic wounds on the toes of the left foot. Known significant peripheral arterial disease. She does follow at the wound care center. Was followed by Dr. Rose from podiatry. Patient presented to the ER with increasing shortness of breath and wheezing. Progressively became more short of breath. Patient's hemoglobin was noted to be 6.2. Blood was ordered. Patient also had a consultation done to Dr. Wilcox from vascular surgery. Patient went into respiratory distress as she had also pulled out her nasal cannula when she is getting a computed tomography scan done. Patient had to be intubated. Transferred to the ICU. Currently FiO2 35% and PEEP of 5. Patient insulin drip and propofol drip. Patient was seen by Dr. Wilcox from vascular surgery-not for any intervention currently. Today-weaning parameters look good this morning. Extubated. Post weaning patient off the lethargic. Barely arousable hemodynamic stable. Her answering questions. Review of systems :Cannot be done as patient lethargic Active Medications Atorvastatin Calcium (Lipitor) 40 mg PO HS [facility] Last Admin: 05/04/19 20:31 Dose: 40 mg Documented by: Budesonide (Pulmicort) 1 mg INHALATION RT-BID [facility] Last Admin: 05/05/19 07:23 Dose: 1 mg Documented by: Clopidogrel Bisulfate (Plavix) 75 mg PO DAILY [facility] Formoterol Fumarate (Perforomist) 20 mcg INHALATION RT-BID [facility] Last Admin: 05/05/19 07:23 Dose: 20 mcg Documented by: Sodium Chloride (Saline 0.9%) 1,000 mls @ 50 mls/hr IV .Q20H [facility] Last Admin: 05/04/19 21:16 Dose: 50 mls/hr Documented by: Insulin Human Regular 100 unit (/ Sodium Chloride) 101 mls @ 0 mls/hr IV .Q0M [facility]; Protocol Last Titration: 05/05/19 08:56 Dose: 3.5 units/hr, 3.535 mls/hr Documented by: Propofol 1,000 mg/ IV Solution 100 mls @ 0 mls/hr IV .Q0M [facility]; Protocol Last Titration: 05/05/19 09:05 Dose: 0 mcg/kg/min, 0 mls/hr Documented by: Losartan Potassium (Cozaar) 50 mg PO DAILY [facility] Methylprednisolone Sodium Succinate (Solu-Medrol) 40 mg IV Q12HR [facility] Last Admin: 05/05/19 07:52 Dose: 40 mg Documented by: Oxcarbazepine (Trileptal) 150 mg PO DAILY PRN PRN Reason: Seizures Oxcarbazepine (Trileptal) 300 mg PO BID [facility] Last Admin: 05/05/19 07:51 Dose: 300 mg Documented by: Pantoprazole Sodium (Protonix) 40 mg IV BID [facility] Last Admin: 05/05/19 07:51 Dose: 40 mg Documented by: Pregabalin (Lyrica) 150 mg PO BID [facility] Last Admin: 05/05/19 07:51 Dose: 150 mg Documented by: Physical examination: VITAL SIGNS: Afebrile, 73, 16, 149/84, 100% on 4 L GENERAL: Propped up in bed, lethargic head of the chin, just about arousable EYES: Pupils equal. Conjunctiva normal. HEENT: External appearance of nose and ears normal, oral cavity grossly normal. NECK: JVD not raised; masses not palpable. HEART: Irregular heart sounds, minimal edema. LUNGS: Respiratory rate increased, diminished breath sounds ABDOMEN: Soft, nontender, liver spleen not palpable, no masses palpable. PSYCH: Lethargic, unable to assess NEUROLOGICAL: Cranial nerves grossly intact; no facial asymmetry, EXTREMITY: Noted dry gangrenous changes left foot INVESTIGATIONS, reviewed in the clinical context: White count 13.1 hemoglobin 8.7 Previous testing White count 8.1 hemoglobin 6.2 potassium 5 bun 34 creatinine 0.82 After receiving 2 units of blood-hemoglobin 8.3 Potassium 5 bun 34 crit 0.82 Plasma lactic acid 2.6 Troponin I 0.108 Chest x-ray film personally reviewed by me-pulmonary edema EKG tracing personally reviewed by me-normal sinus rhythm with some flipped T w aves in inferolateral leads Assessment: -Acute COPD exacerbation and a smoker -Acute metabolic encephalopathy, multifactorial -Acute hypoxic respiratory failure, requiring ventilator assistance, extubated May 05 -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 secondary to peripheral arterial disease -Chronic nicotine dependence patient active cigarette smoker -Persistent atrial fibrillation chronically on eliquis -Coronary artery disease a prior history of stent -Primary osteoarthritis -Diabetic peripheral neuropathy -Severe peripheral arterial disease Plan: Follow with pulmonary. Keep a close and hemodynamics. Discussed with nurse. Other medications to continue.
[2019-05-05] MEDS ORDERED: ACETAMINOPHEN IV (For NPO) 1,000 MG in EMPTY BAG 1 BAG IVPB ONE (14:16)
[2019-05-05 15:07] LABS: Glucose,Whole Blood 167 mg/dL (75-99)
[2019-05-05] MEDS: LOSARTAN 50 MG TAB PO SCH (15:24)
[2019-05-05] MEDS: CLOPIDOGREL 75 MG TAB PO SCH (16:15)
[2019-05-05 16:32] LABS: Glucose,Whole Blood 172 mg/dL (75-99)
[2019-05-05] MEDS: NITROGLYCERIN OINT 1 INCH/GM PACKET TOPICAL SCH ×2 (17:03→23:50)
[2019-05-05] MEDS: SODIUM CHLORIDE 0.9% 1,000 ML IV SCH (17:07)
[2019-05-05 17:58] LABS: Glucose,Whole Blood 152 mg/dL (75-99)
--- NOTE | 2019-05-05 19:00 | ECHOF ---
Referral Reason:assess heart, ischemic ekg changes MEASUREMENTS -------- HEIGHT: 165.1 cm WEIGHT: 79.4 kg BP: RVIDd: 2.8 cm (< 3.3) IVSd: 1.3 cm (0.6 - 1.1) LVIDd: 3.7 cm (3.9 - 5.3) LVPWd: 1.3 cm (0.6 - 1.1) IVSs: 1.8 cm LVIDs: 2.2 cm LVPWs: 1.8 cm LAESV Index (A-L): 75.99 ml/m Ao Diam: 3.6 cm (2.0 - 3.7) AV Cusp: 1.7 cm (1.5 - 2.6) LA Diam: 3.2 cm (2.7 - 3.8) MV EXCURSION: 19.783 mm (> 18.000) MV EF SLOPE: 100 mm/s (70 - 150) EPSS: 0.5 cm MV E Efraín: 1.04 m/s MV DecT: 164 ms MV A Efraín: 0.34 m/s MV E/A Ratio: 3.09 RAP: 20.00 mmHg RVSP: 42.04 mmHg FINDINGS -------- Paced rhythm. This was a technically good study. Pt. on a vent. The left ventricular size is normal. There is mild concentric left ventricular hypertrophy. Overa ll left ventricular systolic function is mildly impaired with, an EF between 45 - 50 %. Left ventri cular fillimg pressure cannot be estimated due to paced rhythm. Septal wall motion is delayed, and consistent with ventricular pacing. The right ventricle is normal in size. LA is severely dilated >40 ml/m2 The right atrial size is normal. The aortic valve is trileaflet and appears structurally normal. The mitral valve is normal. [id number] mitral regurgitation is present. The tricuspid valve appears structurally normal. Mild tricuspid regurgitation present. There is m ild pulmonary hypertension. The right ventricular systolic pressure, as measured by Doppler, is 42. 04mmHg. There is no pulmonic regurgitation present. The aortic root size is normal. The inferior vena cava is dilated with no significant inspiratory collapse which is consistent estima mathew right atrial pressure of >20 mmHg. There is no pericardial effusion. CONCLUSIONS -------- 1. Paced rhythm. 2. This was a technically good study. 3. Pt. on a vent. 4. The left ventricular size is normal. 5. There is mild concentric left ventricular hypertrophy. 6. Overall left ventricular systolic function is mildly impaired with, an EF between 45 - 50 %. 7. Left ventricular fillimg pressure cannot be estimated due to paced rhythm. 8. Septal wall motion is delayed, and consistent with ventricular pacing. 9. The right ventricle is normal in size. 10. LA is severely dilated >40 ml/m2 11. The right atrial size is normal. 12. The aortic valve is trileaflet and appears structurally normal. 13. The mitral valve is normal. 14. [id number] mitral regurgitation is present. 15. The tricuspid valve appears structurally normal. 16. Mild tricuspid regurgitation present. 17. There is mild pulmonary hypertension. 18. The right ventricular systolic pressure, as measured by Doppler, is 42.04mmHg. 19. There is no pulmonic regurgitation present. 20. The aortic root size is normal. 21. The inferior vena cava is dilated with no significant inspiratory collapse which is consistent es timated right atrial pressure of >20 mmHg. 22. There is no pericardial effusion. DERRICK BOAT LEVERMAN: Michelle Paul RDCS
[2019-05-05 19:09] LABS: Glucose,Whole Blood 143 mg/dL (75-99)
[2019-05-05 20:01] LABS: Glucose,Whole Blood 149 mg/dL (75-99)
[2019-05-05] MEDS: ATORVASTATIN 40 MG TAB PO SCH (20:03)
[2019-05-05 21:04] LABS: Glucose,Whole Blood 155 mg/dL (75-99)
[2019-05-05 22:07] LABS: Glucose,Whole Blood 158 mg/dL (75-99)
[2019-05-05 23:03] LABS: Glucose,Whole Blood 214 mg/dL (75-99)
[2019-05-05 23:54] LABS: Glucose,Whole Blood 180 mg/dL (75-99)
[2019-05-06 02:02] LABS: Glucose,Whole Blood 176 mg/dL (75-99)
[2019-05-06] MEDS: ACETAMINOPHEN IV (For NPO) 1,000 MG in EMPTY BAG 1 BAG IVPB PRN ×2 (02:07→20:37)
[2019-05-06] MEDS: INSULIN REGULAR 100 UNIT in SODIUM CHLORIDE 0.9% 100 ML IV SCH (02:16)
[2019-05-06 03:14] LABS: Glucose,Whole Blood 193 mg/dL (75-99)
[2019-05-06] MEDS: MORPHINE SULFATE 2 MG/ML SYRINGE IVP PRN ×4 (03:44→18:06)
[2019-05-06 05:37] LABS: Calcium 7.9 mg/dL (8.4-10.2)
[2019-05-06 06:10] LABS: Anisocytosis Slight; Basophils % (A) 0 %; Eosinophils % (A) 0 %; HCT 28.6 % (34.0-46.0); HGB 8.3 gm/dL (11.4-16.0); Hypochromasia Marked; Lymphocytes # (A) 0.7 k/uL (1.0-4.8); Lymphocytes % (A) 6 %; MCV 85.9 fL (80.0-100.0); Mean Platelet Volume 10.3; Monocytes # (A) 0.5 k/uL (0-1.0); Monocytes % (A) 4 %; Neutrophils # (A) 10.9 k/uL (1.3-7.7); Neutrophils % (A) 88 %; Platelet Count 225 k/uL (150-450); Poikilocytosis Moderate; RBC 3.33 m/uL (3.80-5.40); RDW 18.2 % (11.5-15.5); WBC 12.4 k/uL (3.8-10.6)
[2019-05-06 06:11] LABS: Glucose,Whole Blood 168 mg/dL (75-99)
--- NOTE | 2019-05-06 06:11 | P.CONS ---
History of Present Illness - Reason for Consult Consult date: 05/05/19 Anemia, GI bleed Requesting physician: Kalyn Kaur - Chief Complaint Shortness of breath - History of Present Illness 79-year-old female with multiple medical comorbidities including coronary artery disease, osteoarthritis, diabetes, peripheral neuropathy, atrial fibrillation on anticoagulation therapy, COPD, nicotine dependence, and peripheral arterial disease who presented to the hospital with complaints of shortness of breath. The patient was seen in the emergency department where she reported worsening shortness of breath and wheezing. She was treated with breathing treatments with improvement in her symptoms. The patient was subsequently brought for a computed tomography scan where she became agitated and was subsequently intubated and transferred to the ICU. She was weaned from her ventilation this morning. On presentation she also been noted to be anemic with a hemoglobin of 6.2. Transfuse 2 units of packed red blood cells with appropriate improvement in her hemoglobin with last 3 laboratory evaluation significant for hemoglobin of 8.5, 88.7. Initially the patient had some coffee-ground output from a nasogastric tube and one episode of dark stool which was sent for testing and positive for occult blood. She had no bowel movement today but one dark smear of stool. Hemoglobin has remained stable as stated. Patient is currently encephalopathic and unable to provide any further information. History is being taken in discussion with the ICU team and on review of the electronic medical record. Review of Systems ROS unobtainable: due to mental status (Could not be obtained secondary to encephalopathy.) Past Medical History Past Medical History: Heart Failure, Diabetes Mellitus, Myocardial Infarction (NE), COPD, Diabetes Mellitus, Myocardial Infarction (NE), Osteoarthritis (OA), Skin Disorder, Vascular Disorder Additional Past Medical History / Comment(s): Leg pain, Trigeminal Neuralgia, Diabetic Neuropathy, NE 1994, ROSCACEA Last Myocardial Infarction Date:: 1994 History of Any Multi-Drug Resistant Organisms: None Reported Past Surgical History: Appendectomy, Cholecystectomy, Heart Catheterization With Stent, Hysterectomy, Orthopedic Surgery, Pacemaker Additional Past Surgical History / Comment(s): Arthrectomy rt leg, Angioplasty, Pacemaker August 2016, left Foot Surgery, one heart stent Past Anesthesia/Blood Transfusion Reactions: No Reported Reaction Date of Last Stent Placement:: 1994 Type of Cardiac Device: Permanent Pacemaker Device Placement Date:: August 2016 Past Psychological History: No Psychological Hx Reported Smoking Status: Former smoker - Past Family History Father Family Medical History: Myocardial Infarction (NE) Mother Family Medical History: Congestive Heart Failure (CHF), CVA/TIA, Diabetes Mellitus Medications and Allergies Home Medications Medication Instructions Recorded Confirmed Type ALPRAZolam [Xanax] 0.25 mg PO HS 09/16/16 05/05/19 History Ipratropium-Albuterol Nebulize 3 ml INHALATION RT-BID 09/16/16 05/05/19 History [Duoneb 0.5 mg-3 mg/3 ml Soln] Montelukast [Singulair] 10 mg PO HS #30 tab 09/20/16 05/05/19 Rx Budesonide-Formot 160-4.5 Mcg 2 puff INHALATION RT-BID 10/05/16 05/05/19 History [Symbicort 160-4.5 Mcg Inhaler] Cholecalciferol [Vitamin D3 (25 2,000 unit PO DAILY 07/18/17 05/05/19 History Mcg = 1000 Iu)] Cyanocobalamin (Vitamin B-12) 1,000 mcg PO BID 07/18/17 05/05/19 History [Vitamin B-12] Dapagliflozin Propanediol [Farxiga] 5 mg PO DAILY 07/18/17 05/05/19 History Losartan [Cozaar] 50 mg PO QAM 07/18/17 05/05/19 History Acetaminophen [Tylenol Extra 500 mg PO Q6HR PRN 07/20/17 05/05/19 History Strength] Pregabalin [Lyrica] 150 mg PO BID cap 02/01/18 05/05/19 Rx Liraglutide [Victoza 2-Orlin] 1.8 mg SQ HS 12/26/18 05/05/19 History Apixaban [Eliquis] 5 mg PO BID tab 12/27/18 05/05/19 Rx Clopidogrel [Plavix] 75 mg PO DAILY 01/10/19 05/05/19 History Furosemide [Lasix] 20 mg PO DAILY 01/10/19 05/05/19 History OXcarbazepine [Trileptal] 300 mg PO BID 01/10/19 05/05/19 History Rosuvastatin [Crestor] 20 mg PO HS 01/10/19 05/05/19 History metFORMIN HCL [metFORMIN HCL ER] 750 mg PO BID 02/15/19 05/05/19 History Allergies Allergy/AdvReac Type Severity Reaction Status Date / Time codeine AdvReac Nausea & Verified 05/03/19 22:06 Vomiting sitagliptin [From [facility]] AdvReac frequent Verified 05/03/19 22:06 UTI Physical Exam Vitals: Vital Signs Temp Pulse Resp BP Pulse Ox 05/05/19 12:00 75 18 153/87 98 05/05/19 11:00 73 16 149/84 100 05/05/19 10:00 70 21 158/90 100 05/05/19 09:00 60 20 115/65 100 05/05/19 08:00 98.1 F 61 20 116/71 100 05/05/19 07:38 61 05/05/19 07:25 65 05/05/19 07:00 64 17 126/68 99 05/05/19 06:00 65 19 115/75 98 05/05/19 05:00 67 18 124/68 98 05/05/19 04:00 64 22 113/58 97 05/05/19 03:00 70 22 116/63 98 05/05/19 02:00 67 23 111/60 98 05/05/19 01:00 71 18 108/63 98 05/05/19 00:00 98 F 68 20 109/59 99 05/04/19 23:13 68 20 109/59 99 05/04/19 23:00 67 21 107/58 99 05/04/19 22:00 64 23 116/64 98 05/04/19 21:00 61 22 120/69 99 05/04/19 20:08 67 05/04/19 20:00 98.4 F 73 16 114/67 100 05/04/19 19:51 74 05/04/19 19:00 68 22 140/78 100 05/04/19 18:00 77 28 H 126/62 100 05/04/19 17:00 70 21 129/70 100 05/04/19 16:00 99.0 F 72 17 113/64 100 05/04/19 15:00 67 21 117/64 100 05/04/19 14:00 70 17 114/63 100 05/04/19 13:00 70 20 123/64 100 Intake and Output 05/04/19 05/05/19 05/05/19 22:59 06:59 14:59 Intake Total 419.839 621.204 386.158 Output Total 247 539 2597 Balance 94.839 316.204 -1373.842 Intake: IV 150 400 300 Sodium Chloride 0.9% 1, 150 400 300 000 ml @ 50 mls/hr IV . Q20H FRANTZ Rx#:[id number] Intake, IV Titration 269.839 221.204 86.158 Amount Insulin Regular 100 unit 19.839 28.172 6.741 In Sodium Chloride 0.9% 100 ml @ Per Protocol IV .Q0M FRANTZ Rx#:[id number] Propofol 1,000 mg In 193.032 79.417 Empty Bag 1 bag @ Titrate IV .Q0M FRANTZ Rx#: [id number] Sodium Chloride 0.9% 1, 250 000 ml @ 50 mls/hr IV . Q20H FRANTZ Rx#:[id number] Output: Urine 877 740 5175 Other: Voiding Method Indwelling Catheter Indwelling Catheter Indwelling Catheter Weight 79.379 kg 86.7 kg 86.7 kg On physical examination, patient appears comfortable in no apparent distress. HEAD: Normocephalic, atraumatic. EYES: No scleral icterus. No conjunctival injection. MOUTH: No lesions, tongue midline. NECK: Trachea midline, no gross abnormalities. CHEST: Decreased air entry in all lung lindo. HEART: S1-S2 appreciated, irregularly irregular. ABDOMEN: Soft, obese. Bowel sounds are positive. No organomegaly. No guarding or rigidity. EXTREMITIES: No pedal edema, ulcer noted on left foot. SKIN: No rashes, no jaundice. NEUROLOGIC: Awake but not oriented, interactive or following commands. Results CBC & Chem 7: 05/05/19 09:32 05/06/19 05:12 Labs: Abnormal Lab Results - Last 24 Hours (Table) 05/04/19 05/04/19 05/04/19 Range/Units 13:13 14:29 15:17 WBC (3.8-10.6) k/uL RBC (3.80-5.40) m/uL Hgb (11.4-16.0) gm/dL Hct (34.0-46.0) % MCH (25.0-35.0) pg MCHC (31.0-37.0) g/dL RDW (11.5-15.5) % Neutrophils # (Manual) (1.3-7.7) k/uL Lymphocytes # (Manual) (1.0-4.8) k/uL Monocytes # (Manual) (0-1.0) k/uL Metamyelocytes # (Man) (0) k/uL Myelocytes # (Manual) (0) k/uL Nucleated RBCs (0-0) /100 WBC ABG pCO2 (35-45) mmHg ABG pO2 (83-108) mmHg ABG O2 Saturation (94-97) % Chloride (98-107) mmol/L Carbon Dioxide (22-30) mmol/L BUN (7-17) mg/dL Glucose (74-99) mg/dL POC Glucose (mg/dL) 246 H 217 H 196 H (75-99) mg/dL Calcium (8.4-10.2) mg/dL Magnesium (1.6-2.3) mg/dL AST (14-36) U/L ALT (4-34) U/L Alkaline Phosphatase (38-126) U/L Total Protein (6.3-8.2) g/dL Albumin (3.5-5.0) g/dL 05/04/19 05/04/19 05/04/19 Range/Units 16:05 16:10 17:09 WBC 13.8 H (3.8-10.6) k/uL RBC 3.45 L (3.80-5.40) m/uL Hgb 8.5 L (11.4-16.0) gm/dL Hct 29.2 L (34.0-46.0) % MCH 24.6 L (25.0-35.0) pg MCHC 29.0 L (31.0-37.0) g/dL RDW 18.5 H (11.5-15.5) % Neutrophils # (Manual) 8.97 H (1.3-7.7) k/uL Lymphocytes # (Manual) (1.0-4.8) k/uL Monocytes # (Manual) 2.62 H (0-1.0) k/uL Metamyelocytes # (Man) (0) k/uL Myelocytes # (Manual) (0) k/uL Nucleated RBCs 1 H (0-0) /100 WBC ABG pCO2 (35-45) mmHg ABG pO2 (83-108) mmHg ABG O2 Saturation (94-97) % Chloride (98-107) mmol/L Carbon Dioxide (22-30) mmol/L BUN (7-17) mg/dL Glucose (74-99) mg/dL POC Glucose (mg/dL) 159 H 171 H (75-99) mg/dL Calcium (8.4-10.2) mg/dL Magnesium (1.6-2.3) mg/dL AST (14-36) U/L ALT (4-34) U/L Alkaline Phosphatase (38-126) U/L Total Protein (6.3-8.2) g/dL Albumin (3.5-5.0) g/dL 05/04/19 05/04/19 05/04/19 Range/Units 18:03 18:05 19:01 WBC (3.8-10.6) k/uL RBC (3.80-5.40) m/uL Hgb (11.4-16.0) gm/dL Hct (34.0-46.0) % MCH (25.0-35.0) pg MCHC (31.0-37.0) g/dL RDW (11.5-15.5) % Neutrophils # (Manual) (1.3-7.7) k/uL Lymphocytes # (Manual) (1.0-4.8) k/uL Monocytes # (Manual) (0-1.0) k/uL Metamyelocytes # (Man) (0) k/uL Myelocytes # (Manual) (0) k/uL Nucleated RBCs (0-0) /100 WBC ABG pCO2 (35-45) mmHg ABG pO2 (83-108) mmHg ABG O2 Saturation (94-97) % Chloride (98-107) mmol/L Carbon Dioxide (22-30) mmol/L BUN (7-17) mg/dL Glucose (74-99) mg/dL POC Glucose (mg/dL) 200 H 183 H 159 H (75-99) mg/dL Calcium (8.4-10.2) mg/dL Magnesium (1.6-2.3) mg/dL AST (14-36) U/L ALT (4-34) U/L Alkaline Phosphatase (38-126) U/L Total Protein (6.3-8.2) g/dL Albumin (3.5-5.0) g/dL 05/04/19 05/04/19 05/04/19 Range/Units 20:18 20:56 21:43 WBC 11.5 H (3.8-10.6) k/uL RBC 3.32 L (3.80-5.40) m/uL Hgb 8.5 L (11.4-16.0) gm/dL Hct 28.4 L (34.0-46.0) % MCH (25.0-35.0) pg MCHC 29.8 L (31.0-37.0) g/dL RDW 18.8 H (11.5-15.5) % Neutrophils # (Manual) 10.30 H (1.3-7.7) k/uL Lymphocytes # (Manual) 0.69 L (1.0-4.8) k/uL Monocytes # (Manual) (0-1.0) k/uL Metamyelocytes # (Man) 0.12 H (0) k/uL Myelocytes # (Manual) (0) k/uL Nucleated RBCs 3 H (0-0) /100 WBC ABG pCO2 (35-45) mmHg ABG pO2 (83-108) mmHg ABG O2 Saturation (94-97) % Chloride (98-107) mmol/L Carbon Dioxide (22-30) mmol/L BUN (7-17) mg/dL Glucose (74-99) mg/dL POC Glucose (mg/dL) 190 H 195 H (75-99) mg/dL Calcium (8.4-10.2) mg/dL Magnesium (1.6-2.3) mg/dL AST (14-36) U/L ALT (4-34) U/L Alkaline Phosphatase (38-126) U/L Total Protein (6.3-8.2) g/dL Albumin (3.5-5.0) g/dL 05/04/19 05/04/19 05/05/19 Range/Units 22:01 22:58 00:57 WBC (3.8-10.6) k/uL RBC (3.80-5.40) m/uL Hgb (11.4-16.0) gm/dL Hct (34.0-46.0) % MCH (25.0-35.0) pg MCHC (31.0-37.0) g/dL RDW (11.5-15.5) % Neutrophils # (Manual) (1.3-7.7) k/uL Lymphocytes # (Manual) (1.0-4.8) k/uL Monocytes # (Manual) (0-1.0) k/uL Metamyelocytes # (Man) (0) k/uL Myelocytes # (Manual) (0) k/uL Nucleated RBCs (0-0) /100 WBC ABG pCO2 (35-45) mmHg ABG pO2 (83-108) mmHg ABG O2 Saturation (94-97) % Chloride (98-107) mmol/L Carbon Dioxide (22-30) mmol/L BUN (7-17) mg/dL Glucose (74-99) mg/dL POC Glucose (mg/dL) 207 H 181 H 155 H (75-99) mg/dL Calcium (8.4-10.2) mg/dL Magnesium (1.6-2.3) mg/dL AST (14-36) U/L ALT (4-34) U/L Alkaline Phosphatase (38-126) U/L Total Protein (6.3-8.2) g/dL Albumin (3.5-5.0) g/dL 05/05/19 05/05/19 05/05/19 Range/Units 02:09 02:53 03:50 WBC 11.1 H (3.8-10.6) k/uL RBC 3.16 L (3.80-5.40) m/uL Hgb 8.0 L (11.4-16.0) gm/dL Hct 27.1 L (34.0-46.0) % MCH (25.0-35.0) pg MCHC 29.7 L (31.0-37.0) g/dL RDW 18.7 H (11.5-15.5) % Neutrophils # (Manual) 10.60 H (1.3-7.7) k/uL Lymphocytes # (Manual) 0.22 L (1.0-4.8) k/uL Monocytes # (Manual) (0-1.0) k/uL Metamyelocytes # (Man) (0) k/uL Myelocytes # (Manual) (0) k/uL Nucleated RBCs (0-0) /100 WBC ABG pCO2 (35-45) mmHg ABG pO2 (83-108) mmHg ABG O2 Saturation (94-97) % Chloride (98-107) mmol/L Carbon Dioxide (22-30) mmol/L BUN (7-17) mg/dL Glucose (74-99) mg/dL POC Glucose (mg/dL) 165 H 175 H (75-99) mg/dL Calcium (8.4-10.2) mg/dL Magnesium (1.6-2.3) mg/dL AST (14-36) U/L ALT (4-34) U/L Alkaline Phosphatase (38-126) U/L Total Protein (6.3-8.2) g/dL Albumin (3.5-5.0) g/dL 05/05/19 05/05/19 05/05/19 Range/Units 03:50 03:52 04:54 WBC (3.8-10.6) k/uL RBC (3.80-5.40) m/uL Hgb (11.4-16.0) gm/dL Hct (34.0-46.0) % MCH (25.0-35.0) pg MCHC (31.0-37.0) g/dL RDW (11.5-15.5) % Neutrophils # (Manual) (1.3-7.7) k/uL Lymphocytes # (Manual) (1.0-4.8) k/uL Monocytes # (Manual) (0-1.0) k/uL Metamyelocytes # (Man) (0) k/uL Myelocytes # (Manual) (0) k/uL Nucleated RBCs (0-0) /100 WBC ABG pCO2 (35-45) mmHg ABG pO2 (83-108) mmHg ABG O2 Saturation (94-97) % Chloride 112 H (98-107) mmol/L Carbon Dioxide 19 L (22-30) mmol/L BUN 30 H (7-17) mg/dL Glucose 149 H (74-99) mg/dL POC Glucose (mg/dL) 169 H 181 H (75-99) mg/dL Calcium 8.0 L (8.4-10.2) mg/dL Magnesium 2.4 H (1.6-2.3) mg/dL AST 76 H (14-36) U/L ALT 58 H (4-34) U/L Alkaline Phosphatase 145 H (38-126) U/L Total Protein 5.3 L (6.3-8.2) g/dL Albumin 2.9 L (3.5-5.0) g/dL 05/05/19 05/05/19 05/05/19 Range/Units 06:50 07:05 07:59 WBC (3.8-10.6) k/uL RBC (3.80-5.40) m/uL Hgb (11.4-16.0) gm/dL Hct (34.0-46.0) % MCH (25.0-35.0) pg MCHC (31.0-37.0) g/dL RDW (11.5-15.5) % Neutrophils # (Manual) (1.3-7.7) k/uL Lymphocytes # (Manual) (1.0-4.8) k/uL Monocytes # (Manual) (0-1.0) k/uL Metamyelocytes # (Man) (0) k/uL Myelocytes # (Manual) (0) k/uL Nucleated RBCs (0-0) /100 WBC ABG pCO2 33 L (35-45) mmHg ABG pO2 116 H (83-108) mmHg ABG O2 Saturation 99.2 H (94-97) % Chloride (98-107) mmol/L Carbon Dioxide (22-30) mmol/L BUN (7-17) mg/dL Glucose (74-99) mg/dL POC Glucose (mg/dL) 184 H 144 H (75-99) mg/dL Calcium (8.4-10.2) mg/dL Magnesium (1.6-2.3) mg/dL AST (14-36) U/L ALT (4-34) U/L Alkaline Phosphatase (38-126) U/L Total Protein (6.3-8.2) g/dL Albumin (3.5-5.0) g/dL 05/05/19 05/05/19 05/05/19 Range/Units 08:56 09:32 10:00 WBC 13.1 H (3.8-10.6) k/uL RBC 3.52 L (3.80-5.40) m/uL Hgb 8.7 L (11.4-16.0) gm/dL Hct 30.3 L (34.0-46.0) % MCH 24.8 L (25.0-35.0) pg MCHC 28.8 L (31.0-37.0) g/dL RDW 18.0 H (11.5-15.5) % Neutrophils # (Manual) 10.87 H (1.3-7.7) k/uL Lymphocytes # (Manual) (1.0-4.8) k/uL Monocytes # (Manual) 1.05 H (0-1.0) k/uL Metamyelocytes # (Man) (0) k/uL Myelocytes # (Manual) 0.13 H (0) k/uL Nucleated RBCs 2 H (0-0) /100 WBC ABG pCO2 (35-45) mmHg ABG pO2 (83-108) mmHg ABG O2 Saturation (94-97) % Chloride (98-107) mmol/L Carbon Dioxide (22-30) mmol/L BUN (7-17) mg/dL Glucose (74-99) mg/dL POC Glucose (mg/dL) 160 H 160 H (75-99) mg/dL Calcium (8.4-10.2) mg/dL Magnesium (1.6-2.3) mg/dL AST (14-36) U/L ALT (4-34) U/L Alkaline Phosphatase (38-126) U/L Total Protein (6.3-8.2) g/dL Albumin (3.5-5.0) g/dL 05/05/19 05/05/19 Range/Units 11:05 12:47 WBC (3.8-10.6) k/uL RBC (3.80-5.40) m/uL Hgb (11.4-16.0) gm/dL Hct (34.0-46.0) % MCH (25.0-35.0) pg MCHC (31.0-37.0) g/dL RDW (11.5-15.5) % Neutrophils # (Manual) (1.3-7.7) k/uL Lymphocytes # (Manual) (1.0-4.8) k/uL Monocytes # (Manual) (0-1.0) k/uL Metamyelocytes # (Man) (0) k/uL Myelocytes # (Manual) (0) k/uL Nucleated RBCs (0-0) /100 WBC ABG pCO2 (35-45) mmHg ABG pO2 (83-108) mmHg ABG O2 Saturation (94-97) % Chloride (98-107) mmol/L Carbon Dioxide (22-30) mmol/L BUN (7-17) mg/dL Glucose (74-99) mg/dL POC Glucose (mg/dL) 170 H 167 H (75-99) mg/dL Calcium (8.4-10.2) mg/dL Magnesium (1.6-2.3) mg/dL AST (14-36) U/L ALT (4-34) U/L Alkaline Phosphatase (38-126) U/L Total Protein (6.3-8.2) g/dL Albumin (3.5-5.0) g/dL Microbiology - Last 24 Hours (Table) 05/03/19 22:25 Blood Culture - Preliminary Blood No Growth after 24 hours 05/04/19 00:30 Gram Stain - Preliminary Sputum Sputum Culture - Preliminary CT scan - abdomen: report reviewed (No bowel obstruction on computed tomography scan of the abdomen) Assessment and Plan (1) GI bleed Narrative/Plan: 79-year-old female with multiple medical comorbidities who presented to the hospital with complaints of shortness of breath and wheezing subsequently requiring intubation. Currently she is being treated for exacerbation of her COPD, as well as metabolic encephalopathy. She was found to be anemic on presentation and had some coffee-ground output from her gastric tube after intubation with one episode of stool which tested positive for occult blood. No further signs or symptoms of bleeding in patient's hemoglobin has remained stable after blood transfusion. Currently anticoagulation therapy is being held. Unknown etiology of with differential including peptic ulcer disease, gastritis, esophagitis, AVM, or other etiology. Current Visit: Yes Status: Acute Code(s): K92.2 - GASTROINTESTINAL HEMORRHAGE, UNSPECIFIED SNOMED Code(s): 96436405 (2) Anemia associated with acute blood loss Current Visit: Yes Status: Acute Code(s): D62 - ACUTE POSTHEMORRHAGIC ANEMIA SNOMED Code(s): 033489972 Plan: Supportive care Diet as tolerated Continue to monitor CBC and transfuse as needed Continue empiric treatment with Protonix twice daily Iron studies, vitamin B12, folate, reticulocyte count all been ordered Continue to monitor for signs or symptoms of GI bleeding Continue ICU care and optimization of patient's breathing Unable to discussed with the patient due to encephalopathy, however patient is high risk for endoscopic procedures given her multiple comorbidities and underlying COPD, at this time would recommend restarting anticoagulation therapy and monitoring for signs or symptoms of bleeding as well as empiric treatment with PPI therapy, there are no plans for endoscopic evaluation at this time however will reconsider if patient has further fall in hemoglobin or signs or symptoms of GI bleed Thank you for allowing us to participate in the care of the patient we will continue to follow
[2019-05-06 06:45] LABS: Glucose,Whole Blood 177 mg/dL (75-99)
[2019-05-06 08:13] LABS: Glucose,Whole Blood 158 mg/dL (75-99)
[2019-05-06] MEDS: LOSARTAN 50 MG TAB PO SCH ×2 (08:16→14:41)
[2019-05-06] MEDS: CLOPIDOGREL 75 MG TAB PO SCH (08:16)
[2019-05-06] MEDS: PREGABALIN 75 MG CAP PO SCH ×2 (08:17→20:19)
[2019-05-06] MEDS: OXcarbazepine 300 MG TAB PO SCH ×2 (08:17→20:19)
[2019-05-06] MEDS: PANTOPRAZOLE 40 MG/10 ML VIAL IV SCH ×2 (08:31→20:19)
[2019-05-06] MEDS: INSULIN ASPART (NovoLOG) 100 UNIT/ML VIAL SQ SCH ×5 (08:31→23:27)
[2019-05-06] MEDS: NITROGLYCERIN OINT 1 INCH/GM PACKET TOPICAL SCH ×3 (08:32→23:43)
--- NOTE | 2019-05-06 08:42 | XR ---
EXAMINATION TYPE: XR chest 1V portable DATE OF EXAM: 05/06/2019 COMPARISON: Prior chest x-ray 05/05/2019 HISTORY: Respiratory failure, congestive heart failure TECHNIQUE: Single frontal view of the chest is obtained. FINDINGS: Endotracheal tube and NG tube have been removed. Pacemaker stable. Heart remains enlarged. No evident pneumothorax or pleural effusion. There is interval improved visualization of left hemidi aphragm. Patchy density present at the right costophrenic angle. Interstitium appears increased. IMPRESSION: There is some interval improvement in aeration at the left lung base. Correlate for poss ible right lower lobe pneumonia or atelectasis versus edema, findings of pulmonary venous hypertensio n and interstitial edema.
--- NOTE | 2019-05-06 09:13 | CT ---
EXAMINATION TYPE: CT brain wo con DATE OF EXAM: 05/06/2019 COMPARISON: None HISTORY: AMS. CT DLP: 3040.9 mGycm Automated exposure control for dose reduction was used. TECHNIQUE: CT scan of the head is performed without contrast. FINDINGS: There is no acute intracranial hemorrhage or midline shift identified. There is diffuse v entricular and sulcal prominence consistent with diffuse age-related cerebral atrophy. There is low- attenuation in the periventricular white matter consistent with chronic small vessel ischemic change. The globes are intact. There is complete opacification of the right frontal sinus with internal hig h density. No significant expansion or cortical erosion of the right frontal sinus. There is extensio n into the frontal recess and moderate mucosal thickening in the ethmoid sinuses with postsurgical ch anges of the paranasal sinuses. Scant mucosal thickening in the right maxillary sinus. Visualized par anasal sinuses are well aerated. Moderate atheromatous change of the intracranial vasculature. IMPRESSION: 1. No acute intracranial hemorrhage or midline shift. 2. 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 Consider atypical etiology such as bari al infection given the internal complexity. 3. Diffuse age-related cerebral atrophy and chronic small vessel ischemic change.
--- NOTE | 2019-05-06 09:32 | PN ---
PROGRESS NOTE PULMONARY/CRITICAL CARE PROGRESS NOTE: DATE OF SERVICE: May 06, 2019. CRITICAL CARE TIME: 32 minutes. This is a 79-year-old female who was admitted on May 04 for shortness of breath. She is apparently intubated in the emergency room on May 04 as well for respiratory failure and non ST-segment elevation myocardial infarction. She apparently went down for a CT scan, became agitated and was brought back to the ER where she apparently was intubated. She was found to be anemic and received 2 units of PRBCs. She does have a history of underlying COPD, CHF, diabetes mellitus, myocardial infarction, CAD, pacemaker insertion, and peripheral vascular occlusive disease. She currently is extubated. Yesterday, we were able to extubate her on May 05. She had good weaning parameters. Her mental status was poor, but we went ahead and did it anyway because her weaning parameters were so good and she passed her cuff leak. Currently, she is on room air. She is getting saline at 50 mL an hour and insulin at 3.5 units an hour. I discontinued steroids, Pulmicort and formoterol. Unfortunately, her mental status has remained very poor and she has been moaning all night, so we are going to go ahead and send her for a CT scan of the brain without contrast. I did speak to Dr. Aguilera, the vascular surgeon about her who knows her and said that normally she is alert and oriented x3. She also has a history of chronic atrial fibrillation, status post pacemaker insertion and does have a history of extensive tobacco use. PHYSICAL EXAMINATION: VITAL SIGNS: Current vital signs include temperature 97.2, heart rate 66, respiratory rate 15, blood pressure 132/79, mean 96 and room air saturation 95% to 97%. GENERAL: Appears in no acute distress, but she has just been moaning. She is very lethargic and sleepy. She does arouse, but she does not say anything that is sensible. Again, she will be going for head CT without contrast. HEENT: Examination is grossly unremarkable. NECK: Supple. Full range of motion. CARDIOVASCULAR: Examination reveals regular rhythm and rate. S1, S2 normal. Heart sounds are distant. LUNGS: Reveal a few scattered rhonchi. No wheezes. Breath sounds equal bilaterally. ABDOMEN: Soft. Bowel sounds are not noted. EXTREMITIES: Are intact. Minimal edema. No cyanosis or clubbing. SKIN: Without rash. NEUROLOGIC: Examination is difficult to assess. She is moaning. She is not verbal at this time and not saying anything intelligible. She does arouse. Does seem sleepy and lethargic though. LABS: Labs are reviewed. White count 12.4, hemoglobin 8.3, hematocrit 28.6, platelet count 225,000. Sodium 140, potassium 4, chloride 112, CO2 of 21, BUN and creatinine were 35 and 0.79. Anion gap is 7. Calcium 7.9. Microbiology is negative. Chest x-ray shows cardiomegaly. There is a pacemaker in place. There is some bilateral mostly basilar infiltrates, right greater than left, which could be atelectasis or pneumonia. MEDICATIONS: Medications are reviewed. She is currently on Tylenol, Lipitor, Plavix, insulin, losartan, morphine sulfate, nitroglycerin ointment, Trileptal, Protonix, Lyrica, and a 0.9 IV at 50 mL an hour. ASSESSMENT: 1. Acute hypoxemic respiratory failure, of unclear etiology. The patient was initially seen in the emergency room and then sent back to the emergency room with worsening respiratory status, status post intubation on May 04 and extubation successfully on May 05. 2. Non ST-segment elevation myocardial infarction. 3. Acute anemia, status post 2 units of PRBCs. 4. 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 5. Type 2 diabetes mellitus with diabetic neuropathy. 6. History of previous myocardial infarction with previous stent placement. 7. Mild congestive heart failure. 8. Chronic obstructive pulmonary disease exacerbation, resolved. 9. Prior history of extensive tobacco use and nicotine addiction. 10.History of chronic atrial fibrillation with previous pacemaker insertion. 11.Peripheral vascular occlusive disease. PLAN: The patient was successfully extubated yesterday. She remains on 0.9 at 50 mL an hour and insulin drip at 3.5 units an hour. She is not requiring any supplemental oxygen. Steroids, Pulmicort and formoterol are all discontinued. The patient's mental status is poor. She has been moaning all night. We will send her for a CT scan of the brain without contrast. Dr. Aguilera, her vascular surgeon, states that she is normally oriented x3. Additional recommendations and suggestions are forthcoming. We will continue to follow. Prognosis is guarded. CRITICAL CARE TIME: 32 minutes. MMSERGIO / VALENTINON: [id number] /
[2019-05-06 10:56] LABS: Reticulocyte % 3.08 % (0.10-1.80)
[2019-05-06] MEDS ORDERED: HEPARIN SODIUM,PORCINE 5,000 UNIT/ML 1 ML VIAL IV PRN (11:13)
[2019-05-06] MEDS ORDERED: HEPARIN SODIUM,PORCINE 5,000 UNIT/ML 1 ML VIAL IV ONE (11:13)
[2019-05-06 11:56] LABS: Glucose,Whole Blood 118 mg/dL (75-99)
--- NOTE | 2019-05-06 12:28 | PN ---
PROGRESS NOTE Ariadne is a 79-year-old lady who is admitted to the hospital with respiratory failure and we were consulted because of mild elevation in troponin. She remains in atrial fibrillation with controlled ventricular rate. She had GI bleed, hence, the Eliquis is on hold. Plavix has been restarted. This morning she appears confused. Not able to take anything by mouth. Blood pressure is elevated at 160/97, heart rate is 70 beats per minute, respiratory rate is 16. Chest exam reveals good air entry without any crackles or rhonchi. Heart exam reveals first and second heart sounds. Irregular rhythm. Abdomen is soft. Examination of the extremities reveals mild edema. Peripheral pulses are felt. LABS: Labs show hemoglobin of 8.3, platelet count is 225. Potassium is 4, creatinine is 0.79. ASSESSMENT: 1. Elevated troponin secondary to hypoxia and supply-demand mismatch. 2. Peripheral arterial insufficiency, chronic, stable. 3. Confusion, etiology is unclear. 4. Persistent atrial fibrillation. PLAN: We need to resume her Eliquis when okay with GI. If she is not able to take oral meds, please put her on IV heparin. MMODL / IJN: [id number] /
[2019-05-06 13:54] LABS: Anisocytosis Slight; HCT 29.3 % (34.0-46.0); HGB 8.4 gm/dL (11.4-16.0); Hypochromasia Marked; INR 1.3 (<1.2); MCH 25.2 pg (25.0-35.0); MCHC 28.8 g/dL (31.0-37.0); MCV 87.5 fL (80.0-100.0); Mean Platelet Volume 9.8; Platelet Count 232 k/uL (150-450); Poikilocytosis Moderate; RBC 3.34 m/uL (3.80-5.40); RDW 18.2 % (11.5-15.5)
[2019-05-06 13:56] LABS: Partial Thromboplastin Time 18.4 sec (22.0-30.0)
[2019-05-06 14:15] LABS: Neutrophils % (M) 81 %; Nucleated Red Blood Cells 1 /100 WBC (0-0); Total Cells Counted 200
[2019-05-06 14:16] LABS: Lymphocytes # (M) 1.16 k/uL (1.0-4.8); Monocytes # (M) 1.16 k/uL (0-1.0); WBC 11.6 k/uL (3.8-10.6)
[2019-05-06 14:17] LABS: Target Cells Present
[2019-05-06 14:21] LABS: Polychromasia Present
[2019-05-06] MEDS: HEPARIN SOD,PORK IN 0.45% NACL 25,000 UNIT in 0.45% NACL 1 250ML.BAG IV SCH (14:41)
[2019-05-06 16:36] LABS: Glucose,Whole Blood 163 mg/dL (75-99)
[2019-05-06] MEDS: SODIUM CHLORIDE 0.9% 1,000 ML IV SCH (16:38)
--- NOTE | 2019-05-06 17:43 | P.PN ---
Progress Note - Text Progress Note Date: 05/06/19 Chief Complaint: Short of breath History of presenting complaint: This is a 79-year-old patient of Dr. Giraldo. Chronic stable medical conditions include coronary artery disease with stent, osteoarthritis, diabetic peripheral neuropathy, rosacea, atrial fibrillation on eliquis. Patient long-standing smoker. Patient has chronic wounds on the toes of the left foot. Known significant peripheral arterial disease. She does follow at the wound care center. Was followed by Dr. Rose from podiatry. Patient presented to the ER with increasing shortness of breath and wheezing. Progressively became more short of breath. Patient's hemoglobin was noted to be 6.2. Blood was ordered. Patient also had a consultation done to Dr. Wilcox from vascular surgery. Patient went into respiratory distress as she had also pulled out her nasal cannula when she is getting a computed tomography scan done. Patient had to be intubated. Transferred to the ICU. Currently FiO2 35% and PEEP of 5. Patient insulin drip and propofol drip. Patient was seen by Dr. Wilcox from vascular surgery-not for any intervention currently. Extubated on May 05 Today-sitting up in the bed. Bit more awake. Barely eating. In sinus rhythm. On room air. Son is visiting. A bit more responsive than yesterday. Review of systems: Was done for constitutional, cardiovascular, GI, pulmonary. relevant finding as above Active Medications Atorvastatin Calcium (Lipitor) 40 mg PO HS [facility] Last Admin: 05/05/19 20:03 Dose: Not Given Documented by: Clopidogrel Bisulfate (Plavix) 75 mg PO DAILY [facility] Last Admin: 05/06/19 08:16 Dose: Not Given Documented by: Heparin Sodium (Porcine) (Heparin) 0 unit IV PER PROTOCOL PRN; Protocol PRN Reason: Low PTT Sodium Chloride (Saline 0.9%) 1,000 mls @ 50 mls/hr IV .Q20H [facility] Last Admin: 05/06/19 16:38 Dose: 50 mls/hr Documented by: Propofol 1,000 mg/ IV Solution 100 mls @ 0 mls/hr IV .Q0M [facility]; Protocol Last Titration: 05/05/19 09:05 Dose: 0 mcg/kg/min, 0 mls/hr Documented by: Acetaminophen 1,000 mg/ IV (Solution) 100 mls @ 400 mls/hr IVPB Q6HR PRN PRN Reason: Mild Pain Stop: 05/07/19 00:14 Last Admin: 05/06/19 02:07 Dose: 400 mls/hr Documented by: Heparin Sodium/Sodium Chloride (25,000 unit/ Sodium Chloride) 250 mls @ 9.997 mls/hr IV .Q24H [facility]; Protocol Last Admin: 05/06/19 14:41 Dose: 11.53 units/kg/hr, 9.997 mls/hr Documented by: Insulin Aspart (Novolog) 0 unit SQ Q4HR [facility]; Protocol Last Admin: 05/06/19 16:37 Dose: 1 unit Documented by: Losartan Potassium (Cozaar) 50 mg PO DAILY [facility] Last Admin: 05/06/19 14:41 Dose: 50 mg Documented by: Morphine Sulfate (Morphine Sulfate (Inj)) 2 mg IVP Q4H PRN PRN Reason: Pain/Discomfort Last Admin: 05/06/19 12:36 Dose: 2 mg Documented by: Nitroglycerin (Nitro-Bid Oint) 1 inch TOPICAL Q8HR [facility] Last Admin: 05/06/19 16:37 Dose: 1 inch Documented by: Oxcarbazepine (Trileptal) 150 mg PO DAILY PRN PRN Reason: Seizures Oxcarbazepine (Trileptal) 300 mg PO BID [facility] Last Admin: 05/06/19 08:17 Dose: Not Given Documented by: Pantoprazole Sodium (Protonix) 40 mg IV BID [facility] Last Admin: 05/06/19 08:31 Dose: 40 mg Documented by: Pregabalin (Lyrica) 150 mg PO BID [facility] Last Admin: 05/06/19 08:17 Dose: Not Given Documented by: Physical examination: VITAL SIGNS: 97.2, 70, 16, 169/103, 100% on room air GENERAL: Propped up in bed, tired, but more awake answering occasional questions EYES: Pupils equal. Conjunctiva normal. HEENT: External appearance of nose and ears normal, oral cavity grossly normal. NECK: JVD not raised; masses not palpable. HEART: Irregular heart sounds, minimal edema. LUNGS: Respiratory rate increased, diminished breath sounds ABDOMEN: Soft, nontender, liver spleen not palpable, no masses palpable. PSYCH: Able to answer simple questions NEUROLOGICAL: Cranial nerves grossly intact; no facial asymmetry, EXTREMITY: Noted dry gangrenous changes left foot INVESTIGATIONS, reviewed in the clinical context: White count 11.6 hemoglobin 8.4 Previous testing White count 8.1 hemoglobin 6.2 potassium 5 bun 34 creatinine 0.82 After receiving 2 units of blood-hemoglobin 8.3 Potassium 5 bun 34 crit 0.82 Plasma lactic acid 2.6 Troponin I 0.108 Chest x-ray film personally reviewed by me-pulmonary edema EKG tracing personally reviewed by me-normal sinus rhythm with some flipped T waves in inferolateral leads Assessment: -Acute COPD exacerbation and a smoker -Acute metabolic encephalopathy, multifactorial, improving, -Acute hypoxic respiratory failure, requiring ventilator assistance, extubated May 05, now on room air -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 secondary to peripheral arterial disease -Chronic nicotine dependence patient active cigarette smoker -Persistent atrial fibrillation chronically on eliquis -Coronary artery disease a prior history of stent -Primary osteoarthritis -Diabetic peripheral neuropathy -Severe peripheral arterial disease Plan: Spoke to the patient and the son. Start the patient on applesauce and address as tolerated. Another medications to continue.
--- NOTE | 2019-05-06 18:25 | P.PN ---
Subjective Progress Note Date: 05/06/19 Principal diagnosis: PAD 79 year old female with history of PAD and claudication with multiple revascular procedures presented to the hospital for respiratory failure and was intubated. She was extubated last night but since then has not been following commands and moaning throughout the night. She is was recently seen in the office last week and was doing well and is normally A&Ox3. Currently she is complaining of leg and foot pain. Objective - Vital Signs Vital signs: Vital Signs Temp 97.2 F L 05/06/19 04:00 Pulse 66 05/06/19 06:00 Resp 15 05/06/19 06:00 BP 132/79 05/06/19 06:00 Pulse Ox 95 05/06/19 06:00 Intake & Output 05/05/19 05/06/19 05/06/19 18:59 06:59 18:59 Intake Total 718.621 743.918 Output Total 2580 590 Balance -1861.379 153.918 Weight 86.7 kg Intake: IV 600 700 ACETAMINOPHEN IV (For NPO 100 ) 1,000 mg In Empty Bag 1 bag @ 400 mls/hr IVPB Q6HR PRN Rx#:[id number] Sodium Chloride 0.9% 1, 600 600 000 ml @ 50 mls/hr IV . Q20H [facility] Rx#:[id number] Intake, IV Titration 118.621 43.918 Amount Insulin Regular 100 unit 39.204 43.918 In Sodium Chloride 0.9% 100 ml @ Per Protocol IV .Q0M [facility] Rx#:[id number] Propofol 1,000 mg In 79.417 Empty Bag 1 bag @ Titrate IV .Q0M [facility] Rx#: [id number] Output: Urine 2580 590 Other: Voiding Method Indwelling Catheter Indwelling Catheter - Exam Right lower extremity DP and PT multiphasic signal, good capillary refill Left lower extremity PT monophasic signal, slowed capillary refill - Constitutional General appearance: Present: average body habitus, mild distress - EENT Eyes: Present: PERRLA - Respiratory Respiratory: bilateral: CTA - Cardiovascular Rhythm: regular - Gastrointestinal Gastrointestinal Comment(s): soft, NT, ND General gastrointestinal: Absent: distended - Integumentary Integumentary Comment(s): lower extremities with mild erythema, bruising. - Neurologic Neurologic Comment(s): Moaning, not following commands, answers some questions with inaudible words. - Labs CBC & Chem 7: 05/06/19 13:10 05/06/19 05:12 Labs: Abnormal Lab Results - Last 24 Hours (Table) 05/03/19 05/05/19 05/05/19 Range/Units 22:25 07:59 08:56 WBC (3.8-10.6) k/uL RBC (3.80-5.40) m/uL Hgb (11.4-16.0) gm/dL Hct (34.0-46.0) % MCH (25.0-35.0) pg MCHC (31.0-37.0) g/dL RDW (11.5-15.5) % Neutrophils # (1.3-7.7) k/uL Neutrophils # (Manual) (1.3-7.7) k/uL Lymphocytes # (1.0-4.8) k/uL Monocytes # (Manual) (0-1.0) k/uL Myelocytes # (Manual) (0) k/uL Nucleated RBCs (0-0) /100 WBC Chloride (98-107) mmol/L Carbon Dioxide (22-30) mmol/L BUN (7-17) mg/dL Glucose (74-99) mg/dL POC Glucose (mg/dL) 144 H 160 H (75-99) mg/dL Calcium (8.4-10.2) mg/dL Crossmatch See Detail 05/05/19 05/05/19 05/05/19 Range/Units 09:32 10:00 11:05 WBC 13.1 H (3.8-10.6) k/uL RBC 3.52 L (3.80-5.40) m/uL Hgb 8.7 L (11.4-16.0) gm/dL Hct 30.3 L (34.0-46.0) % MCH 24.8 L (25.0-35.0) pg MCHC 28.8 L (31.0-37.0) g/dL RDW 18.0 H (11.5-15.5) % Neutrophils # (1.3-7.7) k/uL Neutrophils # (Manual) 10.87 H (1.3-7.7) k/uL Lymphocytes # (1.0-4.8) k/uL Monocytes # (Manual) 1.05 H (0-1.0) k/uL Myelocytes # (Manual) 0.13 H (0) k/uL Nucleated RBCs 2 H (0-0) /100 WBC Chloride (98-107) mmol/L Carbon Dioxide (22-30) mmol/L BUN (7-17) mg/dL Glucose (74-99) mg/dL POC Glucose (mg/dL) 160 H 170 H (75-99) mg/dL Calcium (8.4-10.2) mg/dL Crossmatch 05/05/19 05/05/19 05/05/19 Range/Units 12:47 14:07 15:05 WBC (3.8-10.6) k/uL RBC (3.80-5.40) m/uL Hgb (11.4-16.0) gm/dL Hct (34.0-46.0) % MCH (25.0-35.0) pg MCHC (31.0-37.0) g/dL RDW (11.5-15.5) % Neutrophils # (1.3-7.7) k/uL Neutrophils # (Manual) (1.3-7.7) k/uL Lymphocytes # (1.0-4.8) k/uL Monocytes # (Manual) (0-1.0) k/uL Myelocytes # (Manual) (0) k/uL Nucleated RBCs (0-0) /100 WBC Chloride (98-107) mmol/L Carbon Dioxide (22-30) mmol/L BUN (7-17) mg/dL Glucose (74-99) mg/dL POC Glucose (mg/dL) 167 H 174 H 167 H (75-99) mg/dL Calcium (8.4-10.2) mg/dL Crossmatch 05/05/19 05/05/19 05/05/19 Range/Units 16:31 17:56 19:07 WBC (3.8-10.6) k/uL RBC (3.80-5.40) m/uL Hgb (11.4-16.0) gm/dL Hct (34.0-46.0) % MCH (25.0-35.0) pg MCHC (31.0-37.0) g/dL RDW (11.5-15.5) % Neutrophils # (1.3-7.7) k/uL Neutrophils # (Manual) (1.3-7.7) k/uL Lymphocytes # (1.0-4.8) k/uL Monocytes # (Manual) (0-1.0) k/uL Myelocytes # (Manual) (0) k/uL Nucleated RBCs (0-0) /100 WBC Chloride (98-107) mmol/L Carbon Dioxide (22-30) mmol/L BUN (7-17) mg/dL Glucose (74-99) mg/dL POC Glucose (mg/dL) 172 H 152 H 143 H (75-99) mg/dL Calcium (8.4-10.2) mg/dL Crossmatch 05/05/19 05/05/19 05/05/19 Range/Units 20:00 21:02 22:06 WBC (3.8-10.6) k/uL RBC (3.80-5.40) m/uL Hgb (11.4-16.0) gm/dL Hct (34.0-46.0) % MCH (25.0-35.0) pg MCHC (31.0-37.0) g/dL RDW (11.5-15.5) % Neutrophils # (1.3-7.7) k/uL Neutrophils # (Manual) (1.3-7.7) k/uL Lymphocytes # (1.0-4.8) k/uL Monocytes # (Manual) (0-1.0) k/uL Myelocytes # (Manual) (0) k/uL Nucleated RBCs (0-0) /100 WBC Chloride (98-107) mmol/L Carbon Dioxide (22-30) mmol/L BUN (7-17) mg/dL Glucose (74-99) mg/dL POC Glucose (mg/dL) 149 H 155 H 158 H (75-99) mg/dL Calcium (8.4-10.2) mg/dL Crossmatch 05/05/19 05/05/19 05/06/19 Range/Units 23:02 23:53 02:00 WBC (3.8-10.6) k/uL RBC (3.80-5.40) m/uL Hgb (11.4-16.0) gm/dL Hct (34.0-46.0) % MCH (25.0-35.0) pg MCHC (31.0-37.0) g/dL RDW (11.5-15.5) % Neutrophils # (1.3-7.7) k/uL Neutrophils # (Manual) (1.3-7.7) k/uL Lymphocytes # (1.0-4.8) k/uL Monocytes # (Manual) (0-1.0) k/uL Myelocytes # (Manual) (0) k/uL Nucleated RBCs (0-0) /100 WBC Chloride (98-107) mmol/L Carbon Dioxide (22-30) mmol/L BUN (7-17) mg/dL Glucose (74-99) mg/dL POC Glucose (mg/dL) 214 H 180 H 176 H (75-99) mg/dL Calcium (8.4-10.2) mg/dL Crossmatch 05/06/19 05/06/19 05/06/19 Range/Units 03:13 05:12 05:12 WBC 12.4 H (3.8-10.6) k/uL RBC 3.33 L (3.80-5.40) m/uL Hgb 8.3 L (11.4-16.0) gm/dL Hct 28.6 L (34.0-46.0) % MCH (25.0-35.0) pg MCHC 29.0 L (31.0-37.0) g/dL RDW 18.2 H (11.5-15.5) % Neutrophils # 10.9 H (1.3-7.7) k/uL Neutrophils # (Manual) (1.3-7.7) k/uL Lymphocytes # 0.7 L (1.0-4.8) k/uL Monocytes # (Manual) (0-1.0) k/uL Myelocytes # (Manual) (0) k/uL Nucleated RBCs (0-0) /100 WBC Chloride 112 H (98-107) mmol/L Carbon Dioxide 21 L (22-30) mmol/L BUN 35 H (7-17) mg/dL Glucose 164 H (74-99) mg/dL POC Glucose (mg/dL) 193 H (75-99) mg/dL Calcium 7.9 L (8.4-10.2) mg/dL Crossmatch 05/06/19 05/06/19 Range/Units 06:10 06:44 WBC (3.8-10.6) k/uL RBC (3.80-5.40) m/uL Hgb (11.4-16.0) gm/dL Hct (34.0-46.0) % MCH (25.0-35.0) pg MCHC (31.0-37.0) g/dL RDW (11.5-15.5) % Neutrophils # (1.3-7.7) k/uL Neutrophils # (Manual) (1.3-7.7) k/uL Lymphocytes # (1.0-4.8) k/uL Monocytes # (Manual) (0-1.0) k/uL Myelocytes # (Manual) (0) k/uL Nucleated RBCs (0-0) /100 WBC Chloride (98-107) mmol/L Carbon Dioxide (22-30) mmol/L BUN (7-17) mg/dL Glucose (74-99) mg/dL POC Glucose (mg/dL) 168 H 177 H (75-99) mg/dL Calcium (8.4-10.2) mg/dL Crossmatch Microbiology - Last 24 Hours (Table) 05/03/19 22:25 Blood Culture - Preliminary Blood No Growth after 48 hours Assessment and Plan Assessment: 1. Bilateral lower extremity PAD 2. S/P vent 3. Altered mental status 4. CAD 5. GIB 6. Anemia Plan: No vascular intervention at this time- will need to restart antiplatelets, anticoagulation meds once more stable. Continue to monitor vascular exams Agree with CT brain- patient is normally a&o x3
[2019-05-06 19:59] LABS: Glucose,Whole Blood 148 mg/dL (75-99)
[2019-05-06] MEDS: ATORVASTATIN 40 MG TAB PO SCH (20:19)
[2019-05-06 23:27] LABS: Glucose,Whole Blood 132 mg/dL (75-99)
[2019-05-07 04:30] LABS: Glucose,Whole Blood 164 mg/dL (75-99)
[2019-05-07 04:52] LABS: % Iron Saturation 2.21 (12.00-45.00); Ferritin 17.3 ng/mL (10.0-291.0); Folate, Serum 18.7 ng/mL
[2019-05-07] MEDS: MORPHINE SULFATE 2 MG/ML SYRINGE IVP PRN ×5 (05:13→21:51)
[2019-05-07] MEDS: INSULIN ASPART (NovoLOG) 100 UNIT/ML VIAL SQ SCH ×4 (05:13→22:15)
--- NOTE | 2019-05-07 05:30 | P.PN ---
Subjective Progress Note Date: 05/06/19 Principal diagnosis: GI bleed, anemia Patient is seen lying in bed. More awake and interactive this afternoon. No signs or symptoms of GI bleed today. Objective - Vital Signs Vital signs: Vital Signs Temp 96.6 F L 05/06/19 08:00 Pulse 71 05/06/19 10:00 Resp 10 L 05/06/19 10:00 BP 160/97 05/06/19 10:00 Pulse Ox 97 05/06/19 10:00 Intake & Output 05/05/19 05/06/19 05/06/19 18:59 06:59 18:59 Intake Total 718.621 743.918 209.603 Output Total 2580 590 125 Balance -1861.379 153.918 84.603 Weight 86.7 kg Intake: IV 600 700 200 ACETAMINOPHEN IV (For NPO 100 ) 1,000 mg In Empty Bag 1 bag @ 400 mls/hr IVPB Q6HR PRN Rx#:[id number] Sodium Chloride 0.9% 1, 600 600 200 000 ml @ 50 mls/hr IV . Q20H FRANTZ Rx#:[id number] Intake, IV Titration 118.621 43.918 9.603 Amount Insulin Regular 100 unit 39.204 43.918 9.603 In Sodium Chloride 0.9% 100 ml @ Per Protocol IV .Q0M FRANTZ Rx#:[id number] Propofol 1,000 mg In 79.417 Empty Bag 1 bag @ Titrate IV .Q0M FRANTZ Rx#: [id number] Output: Urine 2580 590 125 Other: Voiding Method Indwelling Catheter Indwelling Catheter Indwelling Catheter - Exam On physical examination, patient appears comfortable in no apparent distress. HEAD: Normocephalic, atraumatic. EYES: No scleral icterus. No conjunctival injection. MOUTH: No lesions, tongue midline. NECK: Trachea midline, no gross abnormalities. ABDOMEN: Soft, obese. Bowel sounds are positive. No organomegaly. No guarding or rigidity. EXTREMITIES: No pedal edema, dry gangrene on left foot. SKIN: No rashes, no jaundice. NEUROLOGIC: Alert interactive. Patient is able to follow some commands. - Labs CBC & Chem 7: 05/06/19 13:10 05/06/19 05:12 Labs: Abnormal Lab Results - Last 24 Hours (Table) 05/03/19 05/05/19 05/05/19 Range/Units 22:25 14:07 15:05 WBC (3.8-10.6) k/uL RBC (3.80-5.40) m/uL Hgb (11.4-16.0) gm/dL Hct (34.0-46.0) % MCHC (31.0-37.0) g/dL RDW (11.5-15.5) % Neutrophils # (1.3-7.7) k/uL Lymphocytes # (1.0-4.8) k/uL Retic Count (0.10-1.80) % Chloride (98-107) mmol/L Carbon Dioxide (22-30) mmol/L BUN (7-17) mg/dL Glucose (74-99) mg/dL POC Glucose (mg/dL) 174 H 167 H (75-99) mg/dL Calcium (8.4-10.2) mg/dL Crossmatch See Detail 05/05/19 05/05/19 05/05/19 Range/Units 16:31 17:56 19:07 WBC (3.8-10.6) k/uL RBC (3.80-5.40) m/uL Hgb (11.4-16.0) gm/dL Hct (34.0-46.0) % MCHC (31.0-37.0) g/dL RDW (11.5-15.5) % Neutrophils # (1.3-7.7) k/uL Lymphocytes # (1.0-4.8) k/uL Retic Count (0.10-1.80) % Chloride (98-107) mmol/L Carbon Dioxide (22-30) mmol/L BUN (7-17) mg/dL Glucose (74-99) mg/dL POC Glucose (mg/dL) 172 H 152 H 143 H (75-99) mg/dL Calcium (8.4-10.2) mg/dL Crossmatch 05/05/19 05/05/19 05/05/19 Range/Units 20:00 21:02 22:06 WBC (3.8-10.6) k/uL RBC (3.80-5.40) m/uL Hgb (11.4-16.0) gm/dL Hct (34.0-46.0) % MCHC (31.0-37.0) g/dL RDW (11.5-15.5) % Neutrophils # (1.3-7.7) k/uL Lymphocytes # (1.0-4.8) k/uL Retic Count (0.10-1.80) % Chloride (98-107) mmol/L Carbon Dioxide (22-30) mmol/L BUN (7-17) mg/dL Glucose (74-99) mg/dL POC Glucose (mg/dL) 149 H 155 H 158 H (75-99) mg/dL Calcium (8.4-10.2) mg/dL Crossmatch 05/05/19 05/05/19 05/06/19 Range/Units 23:02 23:53 02:00 WBC (3.8-10.6) k/uL RBC (3.80-5.40) m/uL Hgb (11.4-16.0) gm/dL Hct (34.0-46.0) % MCHC (31.0-37.0) g/dL RDW (11.5-15.5) % Neutrophils # (1.3-7.7) k/uL Lymphocytes # (1.0-4.8) k/uL Retic Count (0.10-1.80) % Chloride (98-107) mmol/L Carbon Dioxide (22-30) mmol/L BUN (7-17) mg/dL Glucose (74-99) mg/dL POC Glucose (mg/dL) 214 H 180 H 176 H (75-99) mg/dL Calcium (8.4-10.2) mg/dL Crossmatch 05/06/19 05/06/19 05/06/19 Range/Units 03:13 05:12 05:12 WBC 12.4 H (3.8-10.6) k/uL RBC 3.33 L (3.80-5.40) m/uL Hgb 8.3 L (11.4-16.0) gm/dL Hct 28.6 L (34.0-46.0) % MCHC 29.0 L (31.0-37.0) g/dL RDW 18.2 H (11.5-15.5) % Neutrophils # 10.9 H (1.3-7.7) k/uL Lymphocytes # 0.7 L (1.0-4.8) k/uL Retic Count (0.10-1.80) % Chloride 112 H (98-107) mmol/L Carbon Dioxide 21 L (22-30) mmol/L BUN 35 H (7-17) mg/dL Glucose 164 H (74-99) mg/dL POC Glucose (mg/dL) 193 H (75-99) mg/dL Calcium 7.9 L (8.4-10.2) mg/dL Crossmatch 05/06/19 05/06/19 05/06/19 Range/Units 05:12 06:10 06:44 WBC (3.8-10.6) k/uL RBC (3.80-5.40) m/uL Hgb (11.4-16.0) gm/dL Hct (34.0-46.0) % MCHC (31.0-37.0) g/dL RDW (11.5-15.5) % Neutrophils # (1.3-7.7) k/uL Lymphocytes # (1.0-4.8) k/uL Retic Count 3.08 H (0.10-1.80) % Chloride (98-107) mmol/L Carbon Dioxide (22-30) mmol/L BUN (7-17) mg/dL Glucose (74-99) mg/dL POC Glucose (mg/dL) 168 H 177 H (75-99) mg/dL Calcium (8.4-10.2) mg/dL Crossmatch 05/06/19 05/06/19 Range/Units 08:12 11:55 WBC (3.8-10.6) k/uL RBC (3.80-5.40) m/uL Hgb (11.4-16.0) gm/dL Hct (34.0-46.0) % MCHC (31.0-37.0) g/dL RDW (11.5-15.5) % Neutrophils # (1.3-7.7) k/uL Lymphocytes # (1.0-4.8) k/uL Retic Count (0.10-1.80) % Chloride (98-107) mmol/L Carbon Dioxide (22-30) mmol/L BUN (7-17) mg/dL Glucose (74-99) mg/dL POC Glucose (mg/dL) 158 H 118 H (75-99) mg/dL Calcium (8.4-10.2) mg/dL Crossmatch Microbiology - Last 24 Hours (Table) 05/04/19 00:30 Gram Stain - Final Sputum Sputum Culture - Final 05/03/19 22:25 Blood Culture - Preliminary Blood No Growth after 48 hours Assessment and Plan (1) GI bleed Narrative/Plan: 79-year-old female with multiple medical comorbidities who presented to the hospital with complaints of shortness of breath and wheezing subsequently requiring intubation. Currently she is being treated for exacerbation of her COPD, as well as metabolic encephalopathy. She was found to be anemic on presentation and had some coffee-ground output from her gastric tube after intubation with one episode of stool which tested positive for occult blood. No further signs or symptoms of bleeding in patient's hemoglobin has remained stable after blood transfusion. Currently anticoagulation therapy has been r estarted. Unknown etiology of with differential including peptic ulcer disease, gastritis, esophagitis, AVM, or other etiology. Current Visit: Yes Status: Acute Code(s): K92.2 - GASTROINTESTINAL HEMORRHAGE, UNSPECIFIED SNOMED Code(s): 50852249 (2) Anemia associated with acute blood loss Current Visit: Yes Status: Acute Code(s): D62 - ACUTE POSTHEMORRHAGIC ANEMIA SNOMED Code(s): 696202401 Plan: Supportive care Diet as tolerated Continue to monitor CBC and transfuse as needed Continue empiric treatment with Protonix twice daily Iron studies, vitamin B12, folate, reticulocyte count pending Continue to monitor for signs or symptoms of GI bleeding Continue ICU care and optimization of patient's breathing No plans for endoscopic evaluation at this time the patient's liver disease, we'll reevaluate precipitous fall in hemoglobin or change in clinical status develops Thank you for allowing us to participate in the care of the patient we will continue to follow
[2019-05-07 05:50] LABS: Anisocytosis Slight; HCT 28.9 % (34.0-46.0); HGB 8.6 gm/dL (11.4-16.0); Hypochromasia Marked; MCH 25.3 pg (25.0-35.0); MCHC 29.8 g/dL (31.0-37.0); MCV 84.9 fL (80.0-100.0); Mean Platelet Volume 10.1; Platelet Count 220 k/uL (150-450); Poikilocytosis Moderate; RDW 18.6 % (11.5-15.5)
[2019-05-07 06:28] LABS: Calcium 7.7 mg/dL (8.4-10.2); Potassium 3.9 mmol/L (3.5-5.1)
[2019-05-07 06:38] LABS: Band Neutrophils % 1 %; Lymphocytes # (M) 1.43 k/uL (1.0-4.8); Monocytes # (M) 0.19 k/uL (0-1.0); Neutrophils % (M) 83 %; Nucleated Red Blood Cells 1 /100 WBC (0-0); Total Cells Counted 200; WBC 9.5 k/uL (3.8-10.6)
[2019-05-07 06:39] LABS: Ovalocytes Present
[2019-05-07 06:40] LABS: Large Platelets Present; Poikilocytosis (M) Present; Polychromasia Present
--- NOTE | 2019-05-07 08:06 | XR ---
EXAMINATION TYPE: XR chest 1V portable DATE OF EXAM: 05/07/2019 COMPARISON: 05/06/2019 HISTORY: Shortness of breath. TECHNIQUE: Single frontal view of the chest is obtained. FINDINGS: cardiomegaly and cardiac device seen with bilateral infiltrate and pleural effusion. Inte rstitial pattern noted. Soft tissue artifact overlying the right upper lobe IMPRESSION: 1. Stable x-ray with coarsened interstitial markings correlate for mild venous congestion with small bilateral effusions and basilar infiltrate. Underlying pneumonia not excluded.
[2019-05-07 08:13] LABS: Glucose,Whole Blood 168 mg/dL (75-99)
[2019-05-07] MEDS: LOSARTAN 50 MG TAB PO SCH (09:06)
[2019-05-07] MEDS: CLOPIDOGREL 75 MG TAB PO SCH (09:06)
[2019-05-07] MEDS: PREGABALIN 75 MG CAP PO SCH ×2 (09:06→21:48)
[2019-05-07] MEDS: NITROGLYCERIN OINT 1 INCH/GM PACKET TOPICAL SCH ×2 (09:06→17:25)
[2019-05-07] MEDS: PANTOPRAZOLE 40 MG/10 ML VIAL IV SCH ×2 (09:08→21:48)
[2019-05-07] MEDS: SODIUM CHLORIDE 0.9% 1,000 ML IV SCH (09:08)
[2019-05-07] MEDS: OXcarbazepine 300 MG TAB PO SCH ×2 (09:27→21:48)
--- NOTE | 2019-05-07 10:55 | PN ---
PROGRESS NOTE PULMONARY/CRITICAL CARE PROGRESS NOTE: DATE OF SERVICE: 05/07/2009 This is a 79-year-old female who was admitted on May 04 for shortness of breath. She apparently was intubated in the emergency room after she was in the CAT scan area. She apparently became agitated while in the CAT scan area, was brought back to the ER and because of impending respiratory failure, was intubated in the emergency room. She also was found to have a non ST-segment elevation myocardial infarction and also was found to be anemic and required 2 units of PRBCs. She does have a history of underlying COPD from tobacco use, CHF, diabetes mellitus, myocardial infarction, CAD, status post pacemaker insertion, and peripheral vascular occlusive disease. She was extubated on May 05. The patient was intubated on 05/04. Currently, she is doing well. She is much more awake and alert. Because of mental status changes, post extubation, we sent for a CT scan without contrast. It did not show anything acute. Currently, she is not on any supplemental oxygen. She is getting a saline IV at 50 mL an hour and heparin via weight based protocol. She is much more alert and awake. Yesterday, I discontinued the steroids, Pulmicort and formoterol. She has been seen by Vascular Surgery. She does have a history of chronic atrial fibrillation for which she is on the blood thinner. Current vital signs are reviewed. Temperature 98.3, heart rate 76, respiratory rate 13, blood pressure 154/78 mean 103, saturations 98% on room air. Appears in no acute distress. Much more awake and alert. HEENT: Examination is grossly unremarkable. Mucous membranes are moist. NECK: Supple, full range of motion. No adenopathy. Neck veins are flat. CARDIOVASCULAR: Examination reveals a regular rhythm and rate. Heart rate about mid 70s. S1, S2 normal. LUNGS: Reveal a few scattered rhonchi. No wheezes or crackles. Breath sounds equal. ABDOMEN: Soft, bowel sounds are heard. EXTREMITIES: Intact. Mild edema. No cyanosis or clubbing. SKIN: Reveals areas of ecchymoses. NEUROLOGIC: Examination is improving. She is much more awake and alert. She does move all 4 extremities. Most of the time, her verbal responses are appropriate. Chest x-ray from May 07 shows mild venous congestion. Microbiologic studies are negative. LABS: Reviewed. White count 9.5, hemoglobin 8.6, hematocrit 28.9, platelet count 329,000. PTT is 42. Sodium 140, potassium 3.9, chloride 113, CO2 is 20, anion gap is 7. BUN and creatinine were 28 and 0.78. MEDICATIONS: Reviewed. She is currently on Lipitor, Plavix, IV heparin, insulin per protocol, losartan, morphine, nitroglycerin ointment, Trileptal, Protonix, Lyrica, and 0.9 IV at 50 mL an hour. ASSESSMENT: 1. Acute hypoxemic respiratory failure of unclear etiology. The patient was intubated on May 04 and extubated successfully on May 05. There may have been some mild fluid overload. It also could have been related to non ST-segment elevation myocardial infarction. 2. Non ST-segment elevation myocardial infarction. 3. Acute anemia, status post 2 units of PRBCs. 4. 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 5. Type 2 diabetes mellitus with diabetic neuropathy. 6. History of previous myocardial infarction with previous stent placement. 7. Mild congestive heart failure. 8. Chronic obstructive pulmonary disease, stable. 9. Prior history of extensive tobacco use and nicotine addiction. 10.History of chronic atrial fibrillation with previous pacemaker insertion. 11.Peripheral vascular occlusive disease. PLAN: The patient is doing much better. She is much more awake and alert. She is much more appropriate. Moving all 4 extremities. The patient remains on IV heparin. She is getting a basic IV at 50 mL an hour. Supplemental oxygen has been weaned off. Her brain CT was negative. She has been seen by Vascular Surgery. Corticosteroids, Pulmicort, and formoterol were all discontinued. Additional recommendations and suggestions are forthcoming. Prognosis is guarded. MMODL / IJN: [id number] /
--- NOTE | 2019-05-07 11:15 | PN ---
PROGRESS NOTE Ariadne is a 79-year-old lady that is admitted to ICU with respiratory failure. She has history of atrial fibrillation and is currently on IV heparin. Since being extubated, she is confused and is not able to swallow food. Currently on Lipitor, Plavix, IV heparin, Cozaar, insulin, nitroglycerin paste. PHYSICAL EXAMINATION: On exam, heart rate is 76 beats per minute. Blood pressure is 138/72. Respiratory rate is 18. Chest exam reveals diminished air entry at the bases. I do not hear any crackles or rhonchi. Heart exam reveals first and second heart sounds. No gallop. Exam of the extremities reveals chronic vascular insufficiency. LABS: Labs show a hemoglobin of 8.6, platelet count is 220, potassium is 3.9, creatinine is 0.78. ASSESSMENT: 1. Respiratory failure. 2. History of atrial fibrillation. 3. Elevated troponin. 4. Peripheral arterial disease. The patient will continue on current medical therapy. MMODL / IJN: [id number] /
[2019-05-07] MEDS: HEPARIN SOD,PORK IN 0.45% NACL 25,000 UNIT in 0.45% NACL 1 250ML.BAG IV SCH (11:48)
[2019-05-07 12:15] LABS: Glucose,Whole Blood 340 mg/dL (75-99)
--- NOTE | 2019-05-07 15:08 | P.PN ---
Subjective Progress Note Date: 05/07/19 Patient was seen and examined sitting up in the reclining chair asleep, however was easily arousable. Patient states she has some discomfort in the left fifth toe where she has an ulcer between the fourth and 5th toes. Patient is more alert and oriented today, she is alert and oriented 3. CT of brain revealed no acute intracranial hemorrhage or midline shift. There was complex right frontal and ethmoid nasal sinus disease. Diffuse age related cerebral atrophy and chronic small vessel ischemic change. Objective - Vital Signs Vital signs: Vital Signs Temp 98.3 F 05/07/19 12:00 Pulse 82 05/07/19 14:00 Resp 11 L 05/07/19 14:00 BP 126/69 05/07/19 14:00 Pulse Ox 100 05/07/19 14:00 Intake & Output 05/06/19 05/07/19 05/07/19 18:59 06:59 18:59 Intake Total 659.603 725.363 466.591 Output Total 645 630 680 Balance 14.603 95.363 -213.409 Weight 81.7 kg 83 kg Intake: IV 650 550 400 Sodium Chloride 0.9% 1, 650 550 400 000 ml @ 50 mls/hr IV . Q20H [facility]ANTZ Rx#:[id number] Intake, IV Titration 9.603 175.363 66.591 Amount Heparin Sod,Pork in 0.45% 175.363 66.591 NaCl 25,000 unit In 0.45 % NaCl 1 250ml.bag @ 11. 53 UNITS/KG/HR 9.997 mls/ hr IV .Q24H FRANTZ Rx#: [id number] Insulin Regular 100 unit 9.603 In Sodium Chloride 0.9% 100 ml @ Per Protocol IV .Q0M FRANTZ Rx#:[id number] Output: Urine 645 630 680 Other: Voiding Method Indwelling Catheter Indwelling Catheter Indwelling Catheter - Exam General appearance: The patient is alert, oriented, in no acute distress. HET: Head is normocephalic and atraumatic. Neck: Supple without lymphadenopathy. Trachea midline. Heart: S1 S2. Regular rate and rhythm. Lungs: No crackles or wheezes are heard. Extremities: Left lower extremity PT and DP monophasic signal, second through 5th toes with discoloration, ulcer between 4th and 5th toes with minimal drainage. Neurological: No focal deficits. Strength and sensation are grossly intact. - Labs CBC & Chem 7: 05/07/19 05:36 05/07/19 05:36 Labs: Abnormal Lab Results - Last 24 Hours (Table) 05/06/19 05/06/19 05/06/19 Range/Units 05:12 16:35 19:57 RBC (3.80-5.40) m/uL Hgb (11.4-16.0) gm/dL Hct (34.0-46.0) % MCHC (31.0-37.0) g/dL RDW (11.5-15.5) % Neutrophils # (Manual) (1.3-7.7) k/uL Nucleated RBCs (0-0) /100 WBC APTT (22.0-30.0) sec Chloride (98-107) mmol/L Carbon Dioxide (22-30) mmol/L BUN (7-17) mg/dL Glucose (74-99) mg/dL POC Glucose (mg/dL) 163 H 148 H (75-99) mg/dL Calcium (8.4-10.2) mg/dL Iron 9 L (50-170) ug/dL % Saturation 2.21 L (12.00-45.00) Vitamin B12 2673.0 H (200.0-944.0) pg/mL 05/06/19 05/06/19 05/07/19 Range/Units 20:53 23:25 04:28 RBC (3.80-5.40) m/uL Hgb (11.4-16.0) gm/dL Hct (34.0-46.0) % MCHC (31.0-37.0) g/dL RDW (11.5-15.5) % Neutrophils # (Manual) (1.3-7.7) k/uL Nucleated RBCs (0-0) /100 WBC APTT 37.3 H (22.0-30.0) sec Chloride (98-107) mmol/L Carbon Dioxide (22-30) mmol/L BUN (7-17) mg/dL Glucose (74-99) mg/dL POC Glucose (mg/dL) 132 H 164 H (75-99) mg/dL Calcium (8.4-10.2) mg/dL Iron (50-170) ug/dL % Saturation (12.00-45.00) Vitamin B12 (200.0-944.0) pg/mL 05/07/19 05/07/19 05/07/19 Range/Units 05:36 05:36 05:36 RBC 3.40 L (3.80-5.40) m/uL Hgb 8.6 L (11.4-16.0) gm/dL Hct 28.9 L (34.0-46.0) % MCHC 29.8 L (31.0-37.0) g/dL RDW 18.6 H (11.5-15.5) % Neutrophils # (Manual) 7.90 H (1.3-7.7) k/uL Nucleated RBCs 1 H (0-0) /100 WBC APTT 41.9 H (22.0-30.0) sec Chloride 113 H (98-107) mmol/L Carbon Dioxide 20 L (22-30) mmol/L BUN 28 H (7-17) mg/dL Glucose 146 H (74-99) mg/dL POC Glucose (mg/dL) (75-99) mg/dL Calcium 7.7 L (8.4-10.2) mg/dL Iron (50-170) ug/dL % Saturation (12.00-45.00) Vitamin B12 (200.0-944.0) pg/mL 05/07/19 05/07/19 05/07/19 Range/Units 08:12 12:13 13:12 RBC (3.80-5.40) m/uL Hgb (11.4-16.0) gm/dL Hct (34.0-46.0) % MCHC (31.0-37.0) g/dL RDW (11.5-15.5) % Neutrophils # (Manual) (1.3-7.7) k/uL Nucleated RBCs (0-0) /100 WBC APTT 55.9 H (22.0-30.0) sec Chloride (98-107) mmol/L Carbon Dioxide (22-30) mmol/L BUN (7-17) mg/dL Glucose (74-99) mg/dL POC Glucose (mg/dL) 168 H 340 H (75-99) mg/dL Calcium (8.4-10.2) mg/dL Iron (50-170) ug/dL % Saturation (12.00-45.00) Vitamin B12 (200.0-944.0) pg/mL Microbiology - Last 24 Hours (Table) 05/03/19 22:25 Blood Culture - Preliminary Blood No Growth after 72 hours 05/04/19 00:30 Gram Stain - Final Sputum Sputum Culture - Final Assessment and Plan Assessment: #1 bilateral lower extremity peripheral arterial disease #2 status post ventilation #3 altered mental status, improved #4 coronary artery disease #5 Anemia Plan: No vascular intervention at this time, will need to restart antiplatelets, anticoagulation meds once patient becomes more stable. Further recommendations to follow. The above dictated assessment and findings were discussed with Dr. Mathews. The impression and plan of care have been directed as dictated.
[2019-05-07 17:22] LABS: Glucose,Whole Blood 235 mg/dL (75-99)
[2019-05-07] MEDS: ATORVASTATIN 40 MG TAB PO SCH (21:48)
[2019-05-07 21:58] LABS: Glucose,Whole Blood 216 mg/dL (75-99)
--- NOTE | 2019-05-07 22:53 | P.PN ---
Progress Note - Text Progress Note Date: 05/07/19 Chief Complaint: Short of breath History of presenting complaint: This is a 79-year-old patient of Dr. Giraldo. Chronic stable medical conditions include coronary artery disease with stent, osteoarthritis, diabetic peripheral neuropathy, rosacea, atrial fibrillation on eliquis. Patient long-standing smoker. Patient has chronic wounds on the toes of the left foot. Known significant peripheral arterial disease. She does follow at the wound care center. Was followed by Dr. Rose from podiatry. Patient presented to the ER with increasing shortness of breath and wheezing. Progressively became more short of breath. Patient's hemoglobin was noted to be 6.2. Blood was ordered. Patient also had a consultation done to Dr. Wilcox from vascular surgery. Patient went into respiratory distress as she had also pulled out her nasal cannula when she is getting a computed tomography scan done. Patient had to be intubated. Transferred to the ICU. Currently FiO2 35% and PEEP of 5. Patient insulin drip and propofol drip. Patient was seen by Dr. Wilcox from vascular surgery-not for any intervention currently. Extubated on May 05. Remains in atrial fibrillation. Received IV heparin. She'll also had an episode of possible dark aspirate from NG tube suspicion for GI bleed. Also guaiac-positive stool. Per GI note for any intervention at present time. Oral anticoagulant can be started Today-more awake today. Did tolerate some diet. Sitting upon a chair. On room air. Remains in A. fib. Rate control. On IV heparin. No further evidence of any GI bleed. Review of systems: Was done for constitutional, cardiovascular, GI, pulmonary. relevant finding as above Active Medications Atorvastatin Calcium (Lipitor) 40 mg PO HS [facility] Last Admin: 05/07/19 21:48 Dose: 40 mg Documented by: Clopidogrel Bisulfate (Plavix) 75 mg PO DAILY [facility] Last Admin: 05/07/19 09:06 Dose: 75 mg Documented by: Heparin Sodium (Porcine) (Heparin) 0 unit IV PER PROTOCOL PRN; Protocol PRN Reason: Low PTT Sodium Chloride (Saline 0.9%) 1,000 mls @ 50 mls/hr IV .Q20H [facility] Last Admin: 05/07/19 09:08 Dose: 50 mls/hr Documented by: Heparin Sodium/Sodium Chloride (25,000 unit/ Sodium Chloride) 250 mls @ 9.997 mls/hr IV .Q24H [facility]; Protocol Last Admin: 05/07/19 11:48 Dose: 15.84 units/kg/hr, 13.73 mls/hr Documented by: Insulin Aspart (Novolog) 0 unit SQ ACHS [facility]; Protocol Last Admin: 05/07/19 22:15 Dose: 3 unit Documented by: Losartan Potassium (Cozaar) 50 mg PO DAILY [facility] Last Admin: 05/07/19 09:06 Dose: 50 mg Documented by: Morphine Sulfate (Morphine Sulfate (Inj)) 2 mg IVP Q4H PRN PRN Reason: Pain/Discomfort Last Admin: 05/07/19 21:51 Dose: 2 mg Documented by: Nitroglycerin (Nitro-Bid Oint) 1 inch TOPICAL Q8HR [facility] Last Admin: 05/07/19 17:25 Dose: 1 inch Documented by: Oxcarbazepine (Trileptal) 150 mg PO DAILY PRN PRN Reason: Seizures Oxcarbazepine (Trileptal) 300 mg PO BID [facility] Last Admin: 05/07/19 21:48 Dose: 300 mg Documented by: Pantoprazole Sodium (Protonix) 40 mg IV BID [facility] Last Admin: 05/07/19 21:48 Dose: 40 mg Documented by: Pregabalin (Lyrica) 150 mg PO BID [facility] Last Admin: 05/07/19 21:48 Dose: 150 mg Documented by: Physical examination: VITAL SIGNS: 98.3, 80, 14, 110/61, 100% on room air GENERAL: Sitting up in a chair, more awake today answering questions EYES: Pupils equal. Conjunctiva normal. HEENT: External appearance of nose and ears normal, oral cavity grossly normal. NECK: JVD not raised; masses not palpable. HEART: Irregular heart sounds, minimal edema. LUNGS: Respiratory rate increased, diminished breath sounds ABDOMEN: Soft, nontender, liver spleen not palpable, no masses palpable. PSYCH: Awake, answering questions NEUROLOGICAL: Cranial nerves grossly intact; no facial asymmetry, EXTREMITY: Noted dry gangrenous changes left foot INVESTIGATIONS, reviewed in the clinical context: White count 9.5 hemoglobin 8.6 potassium 3.9 creatinine 0.78 Previous testing White count 8.1 hemoglobin 6.2 potassium 5 bun 34 creatinine 0.82 After receiving 2 units of blood-hemoglobin 8.3 Potassium 5 bun 34 crit 0.82 Plasma lactic acid 2.6 Troponin I 0.108 Chest x-ray film personally reviewed by me-pulmonary edema EKG tracing personally reviewed by me-normal sinus rhythm with some flipped T waves in inferolateral leads Assessment: -Acute COPD exacerbation and a smoker -Acute metabolic encephalopathy, multifactorial, improved -Acute hypoxic respiratory failure, requiring ventilator assistance, extubated May 05, now on room air -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 secondary to peripheral arterial disease -Chronic nicotine dependence patient active cigarette smoker -Persistent atrial fibrillation chronically on eliquis -Coronary artery disease a prior history of stent -Primary osteoarthritis -Diabetic peripheral neuropathy -Severe peripheral arterial disease Plan: Remains on IV heparin today. Per GI - Resume oral anticoagulation that is eliquis tomorrow. Appetite is improving. For more awake. Patient can be moved out of the ICU.
[2019-05-08] MEDS: NITROGLYCERIN OINT 1 INCH/GM PACKET TOPICAL SCH ×2 (00:12→08:43)
[2019-05-08] MEDS: MORPHINE SULFATE 2 MG/ML SYRINGE IVP PRN ×2 (02:14→19:04)
[2019-05-08 06:33] LABS: Anisocytosis Slight; Basophils % (A) 0 %; Eosinophils # (A) 0.1 k/uL (0-0.7); Eosinophils % (A) 1 %; HCT 26.9 % (34.0-46.0); HGB 7.9 gm/dL (11.4-16.0); Hypochromasia Marked; Lymphocytes # (A) 1.9 k/uL (1.0-4.8); Lymphocytes % (A) 18 %; MCH 24.8 pg (25.0-35.0); MCHC 29.2 g/dL (31.0-37.0); MCV 85.2 fL (80.0-100.0); Monocytes # (A) 0.8 k/uL (0-1.0); Monocytes % (A) 7 %; Neutrophils # (A) 7.5 k/uL (1.3-7.7); Neutrophils % (A) 70 %; Platelet Count 253 k/uL (150-450); Poikilocytosis Moderate; RBC 3.16 m/uL (3.80-5.40); RDW 17.6 % (11.5-15.5); WBC 10.7 k/uL (3.8-10.6)
[2019-05-08 06:36] LABS: African American GFR (CKD) >90 (>60 ml/min/1.73 sqM); Anion Gap 3 mmol/L; Blood Urea Nitrogen 17 mg/dL (7-17); Calcium 7.5 mg/dL (8.4-10.2); Carbon Dioxide 24 mmol/L (22-30); Chloride 108 mmol/L (98-107); Glucose 104 mg/dL (74-99); Non-African American GFR(CKD) 82 (>60 ml/min/1.73 sqM); Potassium 3.4 mmol/L (3.5-5.1); Sodium 135 mmol/L (137-145)
[2019-05-08] MEDS ORDERED: Potassium Replacement Protocol 1 EACH MISC MISCELLANE PRN (06:40)
[2019-05-08] MEDS: POTASSIUM CHLORIDE ER 20 MEQ TAB.ER PO SCH ×2 (06:52→08:33)
[2019-05-08] MEDS: SODIUM CHLORIDE 0.9% 1,000 ML IV SCH (06:52)
[2019-05-08 06:59] LABS: Glucose,Whole Blood 137 mg/dL (75-99)
--- NOTE | 2019-05-08 07:05 | P.PN ---
Subjective Progress Note Date: 05/07/19 Principal diagnosis: GI bleed, anemia Patient is seen sitting bedside today. She is tolerated diet. No signs or symptoms of GI bleeding. No nausea or vomiting or abdominal pain reported. Objective - Vital Signs Vital signs: Vital Signs Temp 98.5 F 05/07/19 16:00 Pulse 79 05/07/19 19:00 Resp 16 05/07/19 19:00 BP 145/82 05/07/19 19:00 Pulse Ox 99 05/07/19 19:00 Intake & Output 05/07/19 05/07/19 05/08/19 06:59 18:59 06:59 Intake Total 725.363 566.591 Output Total 630 855 Balance 95.363 -288.409 Weight 83 kg Intake: IV 550 500 Sodium Chloride 0.9% 1, 550 500 000 ml @ 50 mls/hr IV . Q20H [facility] Rx#:[id number] Intake, IV Titration 175.363 66.591 Amount Heparin Sod,Pork in 0.45% 175.363 66.591 NaCl 25,000 unit In 0.45 % NaCl 1 250ml.bag @ 11. 53 UNITS/KG/HR 9.997 mls/ hr IV .Q24H [facility] Rx#: [id number] Output: Urine 630 855 Other: Voiding Method Indwelling Catheter Indwelling Catheter - Exam On physical examination, patient appears comfortable in no apparent distress. HEAD: Normocephalic, atraumatic. EYES: No scleral icterus. No conjunctival injection. MOUTH: No lesions, tongue midline. NECK: Trachea midline, no gross abnormalities. ABDOMEN: Soft, obese. Bowel sounds are positive. No organomegaly. No guarding or rigidity. EXTREMITIES: No pedal edema, dry gangrene on left foot. SKIN: No rashes, no jaundice. NEUROLOGIC: Alert and more interactive. Answering questions at this time. - Labs CBC & Chem 7: 05/08/19 05:42 05/08/19 05:42 Labs: Abnormal Lab Results - Last 24 Hours (Table) 05/06/19 05/06/19 05/07/19 Range/Units 05:12 23:25 04:28 RBC (3.80-5.40) m/uL Hgb (11.4-16.0) gm/dL Hct (34.0-46.0) % MCHC (31.0-37.0) g/dL RDW (11.5-15.5) % Neutrophils # (Manual) (1.3-7.7) k/uL Nucleated RBCs (0-0) /100 WBC APTT (22.0-30.0) sec Chloride (98-107) mmol/L Carbon Dioxide (22-30) mmol/L BUN (7-17) mg/dL Glucose (74-99) mg/dL POC Glucose (mg/dL) 132 H 164 H (75-99) mg/dL Calcium (8.4-10.2) mg/dL Iron 9 L (50-170) ug/dL % Saturation 2.21 L (12.00-45.00) Vitamin B12 2673.0 H (200.0-944.0) pg/mL 05/07/19 05/07/19 05/07/19 Range/Units 05:36 05:36 05:36 RBC 3.40 L (3.80-5.40) m/uL Hgb 8.6 L (11.4-16.0) gm/dL Hct 28.9 L (34.0-46.0) % MCHC 29.8 L (31.0-37.0) g/dL RDW 18.6 H (11.5-15.5) % Neutrophils # (Manual) 7.90 H (1.3-7.7) k/uL Nucleated RBCs 1 H (0-0) /100 WBC APTT 41.9 H (22.0-30.0) sec Chloride 113 H (98-107) mmol/L Carbon Dioxide 20 L (22-30) mmol/L BUN 28 H (7-17) mg/dL Glucose 146 H (74-99) mg/dL POC Glucose (mg/dL) (75-99) mg/dL Calcium 7.7 L (8.4-10.2) mg/dL Iron (50-170) ug/dL % Saturation (12.00-45.00) Vitamin B12 (200.0-944.0) pg/mL 05/07/19 05/07/19 05/07/19 Range/Units 08:12 12:13 13:12 RBC (3.80-5.40) m/uL Hgb (11.4-16.0) gm/dL Hct (34.0-46.0) % MCHC (31.0-37.0) g/dL RDW (11.5-15.5) % Neutrophils # (Manual) (1.3-7.7) k/uL Nucleated RBCs (0-0) /100 WBC APTT 55.9 H (22.0-30.0) sec Chloride (98-107) mmol/L Carbon Dioxide (22-30) mmol/L BUN (7-17) mg/dL Glucose (74-99) mg/dL POC Glucose (mg/dL) 168 H 340 H (75-99) mg/dL Calcium (8.4-10.2) mg/dL Iron (50-170) ug/dL % Saturation (12.00-45.00) Vitamin B12 (200.0-944.0) pg/mL 05/07/19 05/07/19 Range/Units 17:20 21:57 RBC (3.80-5.40) m/uL Hgb (11.4-16.0) gm/dL Hct (34.0-46.0) % MCHC (31.0-37.0) g/dL RDW (11.5-15.5) % Neutrophils # (Manual) (1.3-7.7) k/uL Nucleated RBCs (0-0) /100 WBC APTT (22.0-30.0) sec Chloride (98-107) mmol/L Carbon Dioxide (22-30) mmol/L BUN (7-17) mg/dL Glucose (74-99) mg/dL POC Glucose (mg/dL) 235 H 216 H (75-99) mg/dL Calcium (8.4-10.2) mg/dL Iron (50-170) ug/dL % Saturation (12.00-45.00) Vitamin B12 (200.0-944.0) pg/mL Microbiology - Last 24 Hours (Table) 05/03/19 22:25 Blood Culture - Preliminary Blood No Growth after 72 hours Assessment and Plan (1) GI bleed Narrative/Plan: 79-year-old female with multiple medical comorbidities who presented to the hospital with complaints of shortness of breath and wheezing subsequently requiring intubation. Currently she is being treated for exacerbation of her COPD, as well as metabolic encephalopathy. She was found to be anemic on presentation and had some coffee-ground output from her gastric tube after intubation with one episode of stool which tested positive for occult blood. No further signs or symptoms of bleeding in patient's hemoglobin has remained stable after blood transfusion. Currently anticoagulation therapy has been restarted. Unknown etiology of with differential including peptic ulcer disease, gastritis, esophagitis, AVM, or other etiology. Hemoglobin has continued to remain stable with no further signs or symptoms of GI bleeding. Current Visit: Yes Status: Acute Code(s): K92.2 - GASTROINTESTINAL HEMORRHAGE, UNSPECIFIED SNOMED Code(s): 32703896 (2) Anemia associated with acute blood loss Current Visit: Yes Status: Acute Code(s): D62 - ACUTE POSTHEMORRHAGIC ANEMIA SNOMED Code(s): 919608140 Plan: Supportive care Diet as tolerated Continue to monitor CBC and transfuse as needed Continue empiric treatment with Protonix twice daily Continue to monitor for signs or symptoms of GI bleeding Continue ICU care and optimization of patient's breathing No plans for endoscopic evaluation at this time the patient's liver disease, patient's hemoglobin has remained stable without any further signs or symptoms of GI bleeding Thank you for allowing us to participate in the care of the patient the GI service will stand by, please call with any questions or concerns
[2019-05-08] MEDS: INSULIN ASPART (NovoLOG) 100 UNIT/ML VIAL SQ SCH ×4 (07:10→21:01)
--- NOTE | 2019-05-08 07:51 | XR ---
EXAMINATION TYPE: XR chest 1V portable DATE OF EXAM: 05/08/2019 COMPARISON: 05/07/2019 HISTORY: Respiratory failure TECHNIQUE: Single frontal view of the chest is obtained. FINDINGS: Bilateral subsegmental consolidation with cardiomegaly. Cardiac device noted. Atherosclero tic change aorta. Biapical pleural thickening with no pneumothorax. Interstitial markings remain mild ly prominent. IMPRESSION: 1. Small bilateral effusions and basilar atelectasis or infiltrate are stable. Interstitium could be the basis of mild venous congestion, pneumonitis or chronic interstitial lung disease.
[2019-05-08] MEDS: PREGABALIN 75 MG CAP PO SCH ×2 (08:31→21:06)
[2019-05-08] MEDS: PANTOPRAZOLE 40 MG/10 ML VIAL IV SCH ×2 (08:32→21:04)
[2019-05-08] MEDS: CLOPIDOGREL 75 MG TAB PO SCH (08:32)
[2019-05-08] MEDS: LOSARTAN 50 MG TAB PO SCH (08:32)
[2019-05-08] MEDS: OXcarbazepine 300 MG TAB PO SCH ×2 (08:33→21:04)
[2019-05-08] MEDS: ACETAMINOPHEN TAB 325 MG TAB PO PRN ×2 (08:43→16:59)
--- NOTE | 2019-05-08 10:17 | P.PN ---
Subjective Progress Note Date: 05/08/19 Principal diagnosis: Shortness of breath, hypoxemic respiratory failure, GI bleed, and acute anemia This is a 79-year-old female, known history of COPD, former smoker, patient pre sented to the ER with 1 day history of increased shortness of breath. Patient was complaining of cough, wheezing, shortness of breath, and upon her initial evaluation, the patient was noted to be very comfortable, she was saturating 100% on room air, patient used to smoke until 6 months ago. And she is normally maintained on bronchodilators in the form of Symbicort and DuoNeb updrafts. Patient received updraft treatment however she Is reporting that she was not feeling good. Initial workup for sepsis was initiated. Patient was noted to have complaints of chronic pain in her left foot. 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 Workup in the ER showed that the patient had acute anemia hemoglobin was 6.2, and her baseline hemoglobin is 9.9. 2 units of packed RBCs were typed and crossed, and the patient was also noted to have mild lactic acidosis and mild elevated troponin. Patient underwent CT angiogram of the aorta chest abdomen and pelvis, in the CT department, patient became acutely agitated, pulled out her IV, removed her supplemental oxygen, then she was noted to become pale, rios, diaphoretic, and hypoxic. At that point the patient was immediately intubated by ER physician. And her CT angiography was completed. Her CT of the chest showed no evidence of pulmonary embolism, no evidence of dissection, there was evidence of complete occlusion of the left femoral artery. And apparently this is chronic. I was notified about this patient, and I recommended vascular evaluation. Patient was seen by vascular surgery, no heparin was recommended, as the findings are usually chronic. In the meantime patient was given 2 units of packed RBCs for low hemoglobin of 6.2. She was transferred to the ICU on mechanical ventilation, and I was asked to see her on consultation. In the ICU the patient was intubated, mechanically ventilated, sedated, on propofol drip. She is now on assist control rate of 16 tidal volume is 450 FiO2 is 35% and PEEP of 5. Her propofol is at 50 mcg/kg/m. Her IV fluid is at 100 mL/m, and she is on insulin drip. Chest x-ray showed left axillary pacemaker, slight blunting of the costophrenic angles, and mild coarsening of the lung markings. Repeat hemoglobin after 2 units of packed RBCs given was 8.3. ABG on mechanical vent ilation showed a pO2 of 142 pCO2 of 27 pH of 7.38 hence the patient's FiO2 was decreased down to 35%. Basic metabolic profile showed mild non-anion gap metabolic acidosis with bicarb of 18. Lactic acid was noted to be 2.1. Troponin jumped from 0.108 up to 0.625. Hence the patient will be seen by cardiology on consultation. On 05/08/2019 patient seen in follow-up. She is awake and alert, in no acute distress, she is oriented 3, left fifth toe discomfort seems to be better on today's exam. Breathing is comfortable, she is on 2 L of oxygen with a pulse ox 100%, afebrile, hemodynamically stable, lung sounds are clear to auscultation. Today's chest x-ray has been reviewed showing small bilateral pleural effusions and basilar atelectasis. Today's labs have been reviewed, showing white blood cell count of 10.7, hemoglobin is 7.9, sodium is 135, potassium is 3.4, chloride is 108, CO2 is 24, BUN is 17 and creatinine 0.71. Blood and sputum cultures have shown no growth. Patient is receiving pain medications for left fifth toe pain. She remains on Plavix, and heparin per weight-based protocol. No active bleeding. GI service is following. Objective - Vital Signs Vital signs: Vital Signs Temp 98.4 F 05/08/19 00:00 Pulse 90 05/08/19 08:00 Resp 18 05/08/19 08:00 BP 123/75 05/08/19 08:00 Pulse Ox 100 05/08/19 08:00 Intake & Output 05/07/19 05/08/19 05/08/19 18:59 06:59 18:59 Intake Total 566.591 450 350 Output Total 855 565 240 Balance -288.409 -115 110 Weight 83 kg 84.2 kg Intake: IV 500 250 350 Sodium Chloride 0.9% 1, 500 250 350 000 ml @ 50 mls/hr IV . Q20H [facility] Rx#:[id number] Intake, IV Titration 66.591 Amount Heparin Sod,Pork in 0.45% 66.591 NaCl 25,000 unit In 0.45 % NaCl 1 250ml.bag @ 11. 53 UNITS/KG/HR 9.997 mls/ hr IV .Q24H [facility] Rx#: [id number] Oral 200 Output: Urine 855 565 240 Other: Voiding Method Indwelling Catheter Indwelling Catheter - Exam GENERAL EXAM: Alert, very pleasant, 79-year-old white female, on 2 L of oxygen, with a possible 100% comfortable in no apparent distress. HEAD: Normocephalic/atraumatic. EYES: Normal reaction of pupils, equal size. Conjunctiva pink, sclera white. NOSE: Clear with pink turbinates. THROAT: No erythema or exudates. NECK: No masses, no JVD, no thyroid enlargement, no adenopathy. CHEST: No chest wall deformity. Symmetrical expansion. LUNGS: Equal air entry with no crackles, wheeze, rhonchi or dullness. CVS: Regular rate and rhythm, normal S1 and S2, no gallops, no murmurs, no rubs ABDOMEN: Soft, nontender. No hepatosplenomegaly, normal bowel sounds, no guarding or rigidity. EXTREMITIES: No clubbing, no edema, no cyanosis, 2+ pulses and upper and lower extremities. MUSCULOSKELETAL: Muscle strength and tone normal. SPINE: No scoliosis or deformity SKIN: Chronic wound in between fourth and fifth toe on her left foot with mild ulceration CENTRAL NERVOUS SYSTEM: Alert and oriented -3. No focal deficits, tone is normal in all 4 extremities. PSYCHIATRIC: Alert and oriented -3. Appropriate affect. Intact judgment and insight. - Labs CBC & Chem 7: 05/08/19 05:42 05/08/19 05:42 Labs: Abnormal Lab Results - Last 24 Hours (Table) 05/07/19 05/07/19 05/07/19 Range/Units 12:13 13:12 17:20 WBC (3.8-10.6) k/uL RBC (3.80-5.40) m/uL Hgb (11.4-16.0) gm/dL Hct (34.0-46.0) % MCH (25.0-35.0) pg MCHC (31.0-37.0) g/dL RDW (11.5-15.5) % APTT 55.9 H (22.0-30.0) sec Sodium (137-145) mmol/L Potassium (3.5-5.1) mmol/L Chloride (98-107) mmol/L Glucose (74-99) mg/dL POC Glucose (mg/dL) 340 H 235 H (75-99) mg/dL Calcium (8.4-10.2) mg/dL 05/07/19 05/08/19 05/08/19 Range/Units 21:57 05:42 05:42 WBC 10.7 H (3.8-10.6) k/uL RBC 3.16 L (3.80-5.40) m/uL Hgb 7.9 L (11.4-16.0) gm/dL Hct 26.9 L (34.0-46.0) % MCH 24.8 L (25.0-35.0) pg MCHC 29.2 L (31.0-37.0) g/dL RDW 17.6 H (11.5-15.5) % APTT 64.7 H (22.0-30.0) sec Sodium (137-145) mmol/L Potassium (3.5-5.1) mmol/L Chloride (98-107) mmol/L Glucose (74-99) mg/dL POC Glucose (mg/dL) 216 H (75-99) mg/dL Calcium (8.4-10.2) mg/dL 05/08/19 05/08/19 Range/Units 05:42 06:57 WBC (3.8-10.6) k/uL RBC (3.80-5.40) m/uL Hgb (11.4-16.0) gm/dL Hct (34.0-46.0) % MCH (25.0-35.0) pg MCHC (31.0-37.0) g/dL RDW (11.5-15.5) % APTT (22.0-30.0) sec Sodium 135 L (137-145) mmol/L Potassium 3.4 L (3.5-5.1) mmol/L Chloride 108 H (98-107) mmol/L Glucose 104 H (74-99) mg/dL POC Glucose (mg/dL) 137 H (75-99) mg/dL Calcium 7.5 L (8.4-10.2) mg/dL Microbiology - Last 24 Hours (Table) 05/03/19 22:25 Blood Culture - Preliminary Blood No Growth after 96 hours Assessment and Plan Plan: Assessment: #1. Acute hypoxemic respiratory failure of unclear etiology. Patient was in tubated on May 14 Of it is successful in April. Possibly related to mild fluid overload or non-ST elevated myocardial infarction. #2. Acute non-ST elevated myocardial infarction #3. Acute anemia, status post 2 units of packed red blood cells #4. 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 Type 2 diabetes mellitus with diabetic neuropathy #6. History of previous myocardial infarction with previous stent placement #7. Mild congestive heart failure #8. Chronic obstructive pulmonary disease stable at this time #9. Prior history of extensive tobacco use and nicotine addiction #10. History of chronic atrial fibrillation with previous pacemaker insertion #11. Peripheral vascular occlusive disease Plan: Patient is awake and alert, breathing is comfortable, she is maintaining stable oxygenation on 2 L of oxygen. Clinically stable, she is being followed by multiple consultants including vascular surgery, GI service cardiology. Patient COPD stable, breathing treatments were discontinued. Today's chest x-ray has been reviewed showing small bilateral pleural effusions and basilar atelectasis. No active GI bleeding. From pulmonary/critical care perspective patient is stable could be transferred to selective care today I performed a history & physical examination of the patient and discussed their management with my nurse practitioner, Jeanne Lama. I reviewed the nurse practitioner's note and agree with the documented findings and plan of care. Lung sounds are positive for clear breath sounds. The findings and the impression was discussed with the patient. I attest to the documentation by the nurse practitioner. Time with Patient: Less than 30
--- NOTE | 2019-05-08 10:29 | CDI ---
Documentation Clarification Form Date: 05/08/2019 10:12:57 AM From: Kristi Maya CCS, CCDS Admit Date: 05/04/2019 02:59:00 AM Patient Name: Ariadne Ortiz Visit Number: [id number] Discharge Date: ATTENTION: The Clinical Documentation Specialists (CDI) and [facility] Coding Staff appreciate your assistance in clarifying documentation. Please respond to the clarification below the line at the bottom and electronically sign. The CDI & [facility] Coding staff will review the response and follow-up if needed. Please note: Queries are made part of the Legal Health Record. If you have any questions, please contact the author of this message via ITS. Dr. Vitor Epps: Per the 05/04 Pulmonary/Critical Care Consult: " suspect mild congestive heart failure, not clear whether it is systolic or diastolic at this point." Per the subsequent Pulmonary Progress Notes: "Mild heart failure" is documented. Cardiology was consulted on 05/04 for elevated troponins, patient has a significant cardiac history: CAD, Atrial fibrillation. Diagnosed with a NSTEMI, intubated with respiratory failure. 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 Clinical Indicators: Presented with SOB, diagnosed with COPD exacerbation, acute hypoxic respiratory failure requiring intubation & ventilation & also a NSTEMI. VS 05/03: Stable. Resp 18 (SOB), up to 24 on 05/04, (respiratory failure & intubated. BNP: Not done this admission Echocardiogram Results (05/05): Mild LVH, Systolic mildly impaired w/EF 45-50%, Mild-mod MR, Mild TR, mild pulm hypertension. Chest X Ray 05/03: No overt heart failure, tiny pleural effusions. 05/04 CXR: Increased pulmonary edema compared to 2 hrs previous. 05/05 CXR: Suggestive of CHF superimposed on COPD. 05/07 CXR: Correlate for mild venous congestion with small bilateral effusions & basilar infiltrate. Treatment: 05/03: IV Solumedrol, IV Amidate, INH Albuterol. 05/04: Intubated, IV Heparin drip. 05/05: IV Lasix push, IV Heparin drip. Home dose Lasix 20 mg daily. In your professional opinion, can you please clarify the acuity and type of CHF if known? Systolic Heart Failure: o Acute o Chronic o Acute on Chronic Unable to Determine Other, please specify (Last Revision: June 2017) MTDD
[2019-05-08] MEDS: APIXABAN 2.5 MG TABLET PO SCH ×2 (11:01→21:05)
[2019-05-08 12:01] LABS: Glucose,Whole Blood 239 mg/dL (75-99)
--- NOTE | 2019-05-08 12:27 | PN ---
PROGRESS NOTE Ariadne is a 79-year-old lady who is admitted to hospital with respiratory failure. She was confused and her confusion has improved significantly since yesterday. She is as asking lots of intelligent and appropriate questions today. She is on Lipitor, Plavix, insulin, Cozaar, heparin and Protonix. Will start her back on Eliquis at 2.5 b.i.d. She tolerated the IV heparin well. She had GI bleed, but has done well since being admitted. On exam, heart rate is 90 beats per minute. Blood pressure 120/66, respiratory rate is 18. Chest exam reveals good air entry bilaterally. Heart exam reveals first and second heart sounds and a systolic murmur at the left lower sternal border. Abdomen is soft. Exam of extremities did not reveal any edema. There is evidence of chronic vascular insufficiency. ASSESSMENT: 1. Symptomatic anemia. 2. PID. 3. Permanent atrial fibrillation. 4. Coronary artery disease. PLAN: Patient will be switched to Eliquis. Continue Lipitor, Plavix, Cozaar. Hopefully home in the next 48 hours. MMODL / IJN: [id number] /
[2019-05-08 16:41] LABS: Glucose,Whole Blood 258 mg/dL (75-99)
--- NOTE | 2019-05-08 20:03 | PN ---
PROGRESS NOTE DATE OF SERVICE: 05/08/2019 This 79-year-old woman who was admitted with shortness of breath was thought to have COPD, acute exacerbation. The patient was confused, also. The patient had acute hypoxic respiratory failure. Multiple consultants, including Cardiology and Pulmonology, are following the patient closely. Vascular Surgery is following the patient closely. The patient was thought to have acute tlj-VJ-vmvgyqo-elevation myocardial infarction also. Dr. Mathews is following the patient for bilateral lower extremity peripheral vascular disease. No chest pain. No palpitations. No fever. Past medical history reviewed. REVIEW OF SYSTEMS: CARDIOVASCULAR SYSTEM: No angina, palpitations. RESPIRATORY SYSTEM: As mentioned earlier. GI: As mentioned earlier. : No dysuria or retention. NERVOUS SYSTEM: No numbness, weakness. CURRENT MEDICATIONS: Reviewed. They include: 1. Tylenol p.r.n. 2. Eliquis 2.5 mg p.o. b.i.d. 3. Lipitor 40 mg at bedtime. 4. Plavix 75 mg p.o. daily. 5. NovoLog scale. 6. Cozaar 50 mg daily. 7. Replacement protocol. 8. Trileptal 150 mg p.o. daily and 300 mg p.o. daily. 9. Protonix 40 mg IV b.i.d. 10.Lyrica 150 mg p.o. b.i.d. PHYSICAL EXAMINATION: Patient is alert, oriented x3. Pulse 65, blood pressure 93/53, respiration 19, temperature 98.1, pulse ox 96% on room air. HEENT: Conjunctivae normal. NECK: No jugular venous distention. CARDIOVASCULAR SYSTEM: S1, S2 muffled. RESPIRATORY SYSTEM: Breath sounds diminished at the bases. Bilateral scattered rhonchi and crackles. ABDOMEN: Soft, non-tender. No mass palpable. LEGS: No edema. No swelling. NERVOUS SYSTEM: No focal deficit. Diffusely weak. LABS: WBC 10.6, hemoglobin 7.9, sodium 135, potassium 3.4. Accu-Cheks are noted. ASSESSMENT: 1. Chronic obstructive pulmonary disease, acute exacerbation, with acute purulent tracheobronchitis and acute hypoxic hypercarbic respiratory failure. 2. Metabolic encephalopathy, multifactorial. 3. Acute qsi-MG-vaxmtpr-elevation myocardial infarction. 4. Chronic ulcers from poor circulation and peripheral vascular disease. 5. History of nicotine dependence. 6. Persistent atrial fibrillation. 7. Coronary artery disease, stent. 8. Degenerative joint disease. 9. Diabetic peripheral neuropathy. 10.Hyponatremia. 11.Hypokalemia. RECOMMENDATIONS AND DISCUSSION: In this 79-year-old woman who presented with multiple complex medical issues, we will monitor the patient closely, continue the current medications, continue symptomatic treatment, continue the bronchodilators. Continue with antiplatelet agents. The patient is on apixaban per Cardiology. Guarded prognosis because of multiple complex medical issues. Further recommendations to follow. Will resume the home medications. MMODL / IJN: [id number] /
[2019-05-08] MEDS: IPRATROPIUM-ALBUTEROL 3 ML NEB INHALATION SCH (20:13)
[2019-05-08] MEDS: SYMBICORT 160-4.5 MCG INHALER INHALATION SCH (20:13)
[2019-05-08 20:49] LABS: Glucose,Whole Blood 236 mg/dL (75-99)
[2019-05-08] MEDS ORDERED: NON FORMULARY DRUG (Cyanocobalamin (Vitamin B-12) [Vitamin B-12] 1,000 MCG) PO SCH (21:00)
[2019-05-08] MEDS: ALPRAZolam 0.25 MG TAB PO SCH (21:05)
[2019-05-08] MEDS: ATORVASTATIN 40 MG TAB PO SCH (21:05)
[2019-05-09] MEDS: MORPHINE SULFATE 2 MG/ML SYRINGE IVP PRN ×3 (03:52→19:56)
[2019-05-09] MEDS: SODIUM CHLORIDE 0.9% 1,000 ML IV SCH (04:44)
[2019-05-09 05:45] LABS: Anisocytosis Slight; HCT 29.2 % (34.0-46.0); HGB 8.2 gm/dL (11.4-16.0); Hypochromasia Marked; MCH 24.3 pg (25.0-35.0); MCHC 28.2 g/dL (31.0-37.0); MCV 86.2 fL (80.0-100.0); Mean Platelet Volume 9.6; Platelet Count 227 k/uL (150-450); Poikilocytosis Moderate; RBC 3.39 m/uL (3.80-5.40); RDW 18.4 % (11.5-15.5); WBC 9.1 k/uL (3.8-10.6)
[2019-05-09 05:58] LABS: African American GFR (CKD) >90 (>60 ml/min/1.73 sqM); Anion Gap 7 mmol/L; Blood Urea Nitrogen 14 mg/dL (7-17); Calcium 7.6 mg/dL (8.4-10.2); Carbon Dioxide 21 mmol/L (22-30); Chloride 108 mmol/L (98-107); Glucose 199 mg/dL (74-99); Non-African American GFR(CKD) 82 (>60 ml/min/1.73 sqM); Potassium 3.8 mmol/L (3.5-5.1); Sodium 136 mmol/L (137-145)
[2019-05-09 06:44] LABS: Glucose,Whole Blood 234 mg/dL (75-99)
[2019-05-09] MEDS: INSULIN ASPART (NovoLOG) 100 UNIT/ML VIAL SQ SCH ×4 (06:44→20:39)
[2019-05-09 06:45] LABS: Eosinophils # (M) 0.18 k/uL (0-0.7); Lymphocytes # (M) 1.73 k/uL (1.0-4.8); Monocytes # (M) 0.55 k/uL (0-1.0); Neutrophils # (M) 6.73 k/uL (1.3-7.7); Neutrophils % (M) 74 %; Nucleated Red Blood Cells 0 /100 WBC (0-0); Total Cells Counted 200
[2019-05-09 06:46] LABS: Ovalocytes Present
[2019-05-09 06:47] LABS: Polychromasia Present
[2019-05-09] MEDS: IPRATROPIUM-ALBUTEROL 3 ML NEB INHALATION SCH ×2 (08:22→21:55)
[2019-05-09] MEDS: SYMBICORT 160-4.5 MCG INHALER INHALATION SCH ×2 (08:22→21:55)
--- NOTE | 2019-05-09 08:55 | CDI ---
Documentation Clarification Form Date: 05/08/2019 10:12:00 AM From: Kristi Maya CCS, CCDS Admit Date: 05/04/2019 02:59:00 AM Patient Name: Ariadne Ortiz Visit Number: [id number] Discharge Date: ATTENTION: The Clinical Documentation Specialists (CDI) and [facility] Coding Staff appreciate your assistance in clarifying documentation. Please respond to the clarification below the line at the bottom and electronically sign. The CDI & [facility] Coding staff will review the response and follow-up if needed. Please note: Queries are made part of the Legal Health Record. If you have any questions, please contact the author of this message via ITS. Dr. Vitor Epps: Per the 05/04 Pulmonary/Critical Care Consult: " suspect mild congestive heart failure, not clear whether it is systolic or diastolic at this point." Per the subsequent Pulmonary Progress Notes: "Mild heart failure" is documented. Cardiology was consulted on 05/04 for elevated troponins, patient has a significant cardiac history: CAD, Atrial fibrillation. Diagnosed with a NSTEMI, intubated with respiratory failure. 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 Clinical Indicators: Presented with SOB, diagnosed with COPD exacerbation, acute hypoxic respiratory failure requiring intubation & ventilation & also a NSTEMI. VS 05/03: Stable. Resp 18 (SOB), up to 24 on 05/04, (respiratory failure & intubated. BNP: Not done this admission Echocardiogram Results (05/05): Mild LVH, Systolic mildly impaired w/EF 45-50%, Mild-mod MR, Mild TR, mild pulm hypertension. Chest X Ray 05/03: No overt heart failure, tiny pleural effusions. 05/04 CXR: Increased pulmonary edema compared to 2 hrs previous. 05/05 CXR: Suggestive of CHF superimposed on COPD. 05/07 CXR: Correlate for mild venous congestion with small bilateral effusions & basilar infiltrate. Treatment: 05/03: IV Solumedrol, IV Amidate, INH Albuterol. 05/04: Intubated, IV Heparin drip. 05/05: IV Lasix push, IV Heparin drip. Home dose Lasix 20 mg daily. In your professional opinion, can you please clarify the acuity and type of CHF if known? Systolic Heart Failure: o Acute o Chronic o Acute on Chronic Unable to Determine Other, please specify (Last Revision: June 2017) MTDD
[2019-05-09] MEDS: APIXABAN 2.5 MG TABLET PO SCH ×2 (09:17→20:38)
[2019-05-09] MEDS: PREGABALIN 75 MG CAP PO SCH ×2 (09:17→20:38)
[2019-05-09] MEDS: CYANOCOBALAMIN 500 MCG TAB PO SCH ×2 (09:17→20:38)
[2019-05-09] MEDS: CHOLECALCIFEROL 1,000 UNIT TAB PO SCH (09:17)
[2019-05-09] MEDS: CLOPIDOGREL 75 MG TAB PO SCH (09:17)
[2019-05-09] MEDS: LOSARTAN 50 MG TAB PO SCH (09:17)
[2019-05-09] MEDS: FUROSEMIDE 20 MG TAB PO SCH (09:17)
[2019-05-09] MEDS: OXcarbazepine 300 MG TAB PO SCH ×2 (09:18→20:40)
[2019-05-09] MEDS: PANTOPRAZOLE 40 MG/10 ML VIAL IV SCH ×2 (09:18→20:33)
--- NOTE | 2019-05-09 09:24 | P.PN ---
Subjective Progress Note Date: 05/09/19 This is 79-year-old female was admitted to the hospital with restricted failure and confusional state. Patient also has atrial fibrillation. Has history of coronary artery disease. She was on Lipitor, Plavix, insulin, Cozaar, heparin and also Protonix. Patient is being initiated on oral anticoagulation therapy with Eliquis her heart rate is controlled. Patient doesn't appear to be in acute distress Objective - Vital Signs Vital signs: Vital Signs Temp 97.7 F 05/09/19 04:00 Pulse 69 05/09/19 04:00 Resp 12 05/09/19 04:00 BP 126/66 05/09/19 04:00 Pulse Ox 96 05/09/19 04:00 Intake & Output 05/08/19 05/09/19 05/09/19 18:59 06:59 18:59 Intake Total 350 1550 Output Total 390 575 Balance -40 975 Weight 85.7 kg Intake: IV 350 1050 Sodium Chloride 0.9% 1, 350 1050 000 ml @ 50 mls/hr IV . [facility] Rx#:[id number] Oral 500 Output: Urine 390 575 Other: Voiding Method Indwelling Catheter Indwelling Catheter - Exam GENERAL EXAM: Patient is alert and oriented and doesn't appear to be in any acute distress HEENT: Normocephalic. Normal reaction of pupils, equal size, normal range of extraocular motion. No erythema or exudates in the throat. NECK: No masses, no nuchal rigidity. CHEST: No chest wall deformity. LUNGS: Diminished breath sounds HEART: S1 and S2 normal. Regular heart rhythm. Systolic murmur ABDOMEN: No hepatosplenomegaly, normal bowel sounds, no guarding or rigidity. SKIN: No rashes CENTRAL NERVOUS SYSTEM: No focal deficits. EXTREMITIES: No cyanosis, clubbing or edema. - Labs CBC & Chem 7: 05/09/19 05:15 05/09/19 05:15 Labs: Abnormal Lab Results - Last 24 Hours (Table) 05/08/19 05/08/19 05/08/19 Range/Units 12:00 16:39 20:47 RBC (3.80-5.40) m/uL Hgb (11.4-16.0) gm/dL Hct (34.0-46.0) % MCH (25.0-35.0) pg MCHC (31.0-37.0) g/dL RDW (11.5-15.5) % Sodium (137-145) mmol/L Chloride (98-107) mmol/L Carbon Dioxide (22-30) mmol/L Glucose (74-99) mg/dL POC Glucose (mg/dL) 239 H 258 H 236 H (75-99) mg/dL Calcium (8.4-10.2) mg/dL 05/09/19 05/09/19 05/09/19 Range/Units 05:15 05:15 06:42 RBC 3.39 L (3.80-5.40) m/uL Hgb 8.2 L (11.4-16.0) gm/dL Hct 29.2 L (34.0-46.0) % MCH 24.3 L (25.0-35.0) pg MCHC 28.2 L (31.0-37.0) g/dL RDW 18.4 H (11.5-15.5) % Sodium 136 L (137-145) mmol/L Chloride 108 H (98-107) mmol/L Carbon Dioxide 21 L (22-30) mmol/L Glucose 199 H (74-99) mg/dL POC Glucose (mg/dL) 234 H (75-99) mg/dL Calcium 7.6 L (8.4-10.2) mg/dL Microbiology - Last 24 Hours (Table) 05/03/19 22:25 Blood Culture - Preliminary Blood No Growth after 120 hours Assessment and Plan (1) Acute exacerbation of COPD with asthma Current Visit: Yes Status: Acute Code(s): J44.1 - CHRONIC OBSTRUCTIVE PULMONARY DISEASE W (ACUTE) EXACERBATION; J45.901 - UNSPECIFIED ASTHMA WITH (ACUTE) EXACERBATION SNOMED Code(s): 8794289773316 (2) Critical limb ischemia with history of revascularization of same extremity Current Visit: Yes Status: Acute Code(s): I99.8 - OTHER DISORDER OF CIRCULATORY SYSTEM; Z95.9 - PRESENCE OF CARDIAC AND VASCULAR IMPLANT AND GRAFT, UNSP SNOMED Code(s): 49252023799026 (3) Chronic a-fib Current Visit: No Status: Acute Code(s): I48.2 - CHRONIC ATRIAL FIBRILLATION * DO NOT USE * SNOMED Code(s): 204078725 (4) Congestive heart failure Current Visit: No Status: Acute Code(s): I50.9 - HEART FAILURE, UNSPECIFIED SNOMED Code(s): 19139200 Plan: General current medical therapy. We'll follow as needed
--- NOTE | 2019-05-09 09:58 | P.PN ---
Subjective Progress Note Date: 05/09/19 Principal diagnosis: Shortness of breath, hypoxemic respiratory failure, GI bleed, and acute anemia This is a 79-year-old female, known history of COPD, former smoker, patient pre sented to the ER with 1 day history of increased shortness of breath. Patient was complaining of cough, wheezing, shortness of breath, and upon her initial evaluation, the patient was noted to be very comfortable, she was saturating 100% on room air, patient used to smoke until 6 months ago. And she is normally maintained on bronchodilators in the form of Symbicort and DuoNeb updrafts. Patient received updraft treatment however she Is reporting that she was not feeling good. Initial workup for sepsis was initiated. Patient was noted to have complaints of chronic pain in her left foot. 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 Workup in the ER showed that the patient had acute anemia hemoglobin was 6.2, and her baseline hemoglobin is 9.9. 2 units of packed RBCs were typed and crossed, and the patient was also noted to have mild lactic acidosis and mild elevated troponin. Patient underwent CT angiogram of the aorta chest abdomen and pelvis, in the CT department, patient became acutely agitated, pulled out her IV, removed her supplemental oxygen, then she was noted to become pale, rios, diaphoretic, and hypoxic. At that point the patient was immediately intubated by ER physician. And her CT angiography was completed. Her CT of the chest showed no evidence of pulmonary embolism, no evidence of dissection, there was evidence of complete occlusion of the left femoral artery. And apparently this is chronic. I was notified about this patient, and I recommended vascular evaluation. Patient was seen by vascular surgery, no heparin was recommended, as the findings are usually chronic. In the meantime patient was given 2 units of packed RBCs for low hemoglobin of 6.2. She was transferred to the ICU on mechanical ventilation, and I was asked to see her on consultation. In the ICU the patient was intubated, mechanically ventilated, sedated, on propofol drip. She is now on assist control rate of 16 tidal volume is 450 FiO2 is 35% and PEEP of 5. Her propofol is at 50 mcg/kg/m. Her IV fluid is at 100 mL/m, and she is on insulin drip. Chest x-ray showed left axillary pacemaker, slight blunting of the costophrenic angles, and mild coarsening of the lung markings. Repeat hemoglobin after 2 units of packed RBCs given was 8.3. ABG on mechanical vent ilation showed a pO2 of 142 pCO2 of 27 pH of 7.38 hence the patient's FiO2 was decreased down to 35%. Basic metabolic profile showed mild non-anion gap metabolic acidosis with bicarb of 18. Lactic acid was noted to be 2.1. Troponin jumped from 0.108 up to 0.625. Hence the patient will be seen by cardiology on consultation. On 05/08/2019 patient seen in follow-up. She is awake and alert, in no acute distress, she is oriented 3, left fifth toe discomfort seems to be better on today's exam. Breathing is comfortable, she is on 2 L of oxygen with a pulse ox 100%, afebrile, hemodynamically stable, lung sounds are clear to auscultation. Today's chest x-ray has been reviewed showing small bilateral pleural effusions and basilar atelectasis. Today's labs have been reviewed, showing white blood cell count of 10.7, hemoglobin is 7.9, sodium is 135, potassium is 3.4, chloride is 108, CO2 is 24, BUN is 17 and creatinine 0.71. Blood and sputum cultures have shown no growth. Patient is receiving pain medications for left fifth toe pain. She remains on Plavix, and heparin per weight-based protocol. No active bleeding. GI service is following. On 05/09/2019 patient seen in follow-up in intensive care unit. Patient is doing well, no worsening dyspnea, she is on room air, pulse ox of 96%, afebrile, hemodynamically stable. Respirations are nonlabored. Lung sounds are clear, no rhonchi, no wheezes. Today's labs have been reviewed, showing white blood cell count 9.1, hemoglobin of 8.2, platelet count is 227, sodium is 136, potassium is 3.8, chloride is 108, CO2 is 21, BUN is 14, creatinine 0.71. Blood and sputum cultures have shown no growth, patient has had no fever or chills. No acute events overnight. Pain in the left foot seems to be better controlled. Objective - Vital Signs Vital signs: Vital Signs Temp 97.7 F 05/09/19 04:00 Pulse 69 05/09/19 04:00 Resp 12 05/09/19 04:00 BP 126/66 05/09/19 04:00 Pulse Ox 96 05/09/19 04:00 Intake & Output 05/08/19 05/09/19 05/09/19 18:59 06:59 18:59 Intake Total 350 1550 Output Total 390 575 Balance -40 975 Weight 85.7 kg Intake: IV 350 1050 Sodium Chloride 0.9% 1, 350 1050 000 ml @ 50 mls/hr IV . Q20H [facility] Rx#:[id number] Oral 500 Output: Urine 390 575 Other: Voiding Method Indwelling Catheter Indwelling Catheter - Exam GENERAL EXAM: Alert, very pleasant, 79-year-old white female, on room air with pulse ox of 96% comfortable in no apparent distress. HEAD: Normocephalic/atraumatic. EYES: Normal reaction of pupils, equal size. Conjunctiva pink, sclera white. NOSE: Clear with pink turbinates. THROAT: No erythema or exudates. NECK: No masses, no JVD, no thyroid enlargement, no adenopathy. CHEST: No chest wall deformity. Symmetrical expansion. LUNGS: Equal air entry with no crackles, wheeze, rhonchi or dullness. CVS: Regular rate and rhythm, normal S1 and S2, no gallops, no murmurs, no rubs ABDOMEN: Soft, nontender. No hepatosplenomegaly, normal bowel sounds, no guarding or rigidity. EXTREMITIES: No clubbing, no edema, no cyanosis, 2+ pulses and upper and lower extremities. MUSCULOSKELETAL: Muscle strength and tone normal. SPINE: No scoliosis or deformity SKIN: Chronic wound in between fourth and fifth toe on her left foot with mild ulceration CENTRAL NERVOUS SYSTEM: Alert and oriented -3. No focal deficits, tone is normal in all 4 extremities. PSYCHIATRIC: Alert and oriented -3. Appropriate affect. Intact judgment and insight. - Labs CBC & Chem 7: 05/09/19 05:15 05/09/19 05:15 Labs: Abnormal Lab Results - Last 24 Hours (Table) 05/08/19 05/08/19 05/08/19 Range/Units 12:00 16:39 20:47 RBC (3.80-5.40) m/uL Hgb (11.4-16.0) gm/dL Hct (34.0-46.0) % MCH (25.0-35.0) pg MCHC (31.0-37.0) g/dL RDW (11.5-15.5) % Sodium (137-145) mmol/L Chloride (98-107) mmol/L Carbon Dioxide (22-30) mmol/L Glucose (74-99) mg/dL POC Glucose (mg/dL) 239 H 258 H 236 H (75-99) mg/dL Calcium (8.4-10.2) mg/dL 05/09/19 05/09/19 05/09/19 Range/Units 05:15 05:15 06:42 RBC 3.39 L (3.80-5.40) m/uL Hgb 8.2 L (11.4-16.0) gm/dL Hct 29.2 L (34.0-46.0) % MCH 24.3 L (25.0-35.0) pg MCHC 28.2 L (31.0-37.0) g/dL RDW 18.4 H (11.5-15.5) % Sodium 136 L (137-145) mmol/L Chloride 108 H (98-107) mmol/L Carbon Dioxide 21 L (22-30) mmol/L Glucose 199 H (74-99) mg/dL POC Glucose (mg/dL) 234 H (75-99) mg/dL Calcium 7.6 L (8.4-10.2) mg/dL Microbiology - Last 24 Hours (Table) 05/03/19 22:25 Blood Culture - Preliminary Blood No Growth after 120 hours Assessment and Plan Plan: Assessment: #1. Acute hypoxemic respiratory failure of unclear etiology. Patient was intubated on May 14 Of it is successful in April. Possibly related to mild fluid overload or non-ST elevated myocardial infarction. #2. Acute non-ST elevated myocardial infarction #3. Acute anemia, status post 2 units of packed red blood cells #4. 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 Type 2 diabetes mellitus with diabetic neuropathy #6. History of previous myocardial infarction with previous stent placement #7. Mild congestive heart failure #8. Chronic obstructive pulmonary disease stable at this time #9. Prior history of extensive tobacco use and nicotine addiction #10. History of chronic atrial fibrillation with previous pacemaker insertion #11. Peripheral vascular occlusive disease Plan: Clinically patient remains stable, no acute issues overnight, room air pulse ox 96%, no difficulty breathing, lung sounds are clear, no fever or chills, from pulmonary/critical care perspective patient stable to go to general medical floor. Increase activity as tolerated, I performed a history & physical examination of the patient and discussed their management with my nurse practitioner, Jeanne Lama. I reviewed the nurse practitioner's note and agree with the documented findings and plan of care. Lung sounds are positive for clear breath sounds. The findings and the impression was discussed with the patient. I attest to the documentation by the nurse practitioner. Time with Patient: Less than 30
[2019-05-09 11:58] LABS: Glucose,Whole Blood 260 mg/dL (75-99)
[2019-05-09 17:03] LABS: ALT 35 U/L (4-34); AST 26 U/L (14-36); African American GFR (CKD) >90 (>60 ml/min/1.73 sqM); Albumin 2.7 g/dL (3.5-5.0); Alkaline Phosphatase 129 U/L (38-126); Anion Gap 5 mmol/L; Blood Urea Nitrogen 11 mg/dL (7-17); Calcium 7.8 mg/dL (8.4-10.2); Carbon Dioxide 24 mmol/L (22-30); Chloride 107 mmol/L (98-107); Glucose 146 mg/dL (74-99); Non-African American GFR(CKD) 84 (>60 ml/min/1.73 sqM); Potassium 3.8 mmol/L (3.5-5.1); Sodium 136 mmol/L (137-145); Total Bilirubin 0.7 mg/dL (0.2-1.3); Total Protein 5.2 g/dL (6.3-8.2)
[2019-05-09 17:12] LABS: Glucose,Whole Blood 164 mg/dL (75-99)
--- NOTE | 2019-05-09 18:05 | PN ---
PROGRESS NOTE DATE OF SERVICE: 05/09/2019 This 79-year-old woman who was admitted with COPD, acute exacerbation, had acute purulent tracheobronchitis and acute hypoxic respiratory failure. She is being closely monitored. The patient also had bilateral bluish lesions on both fingers and toes. No chest pain. No palpitations. No fever. The patient apparently had previous circulation problems with gangrene and was evaluated by Dr. Aguilera in the past in the outpatient setting. Past medical history reviewed. The patient has bilateral bluish lesions in the fingers and toes. REVIEW OF SYSTEMS: CARDIOVASCULAR SYSTEM: No angina, palpitations. RESPIRATORY SYSTEM: As mentioned earlier. GI: No nausea, vomiting. : No dysuria or retention. NERVOUS SYSTEM: No numbness, weakness. CURRENT MEDICATIONS: Reviewed. They include: 1. Tylenol p.r.n. 2. DuoNeb q.i.d. and p.r.n. 3. Xanax 0.25 at bedtime. 4. Eliquis 2.5 mg p.o. b.i.d. 5. Lipitor 40 mg at bedtime. 6. Symbicort 160/4.5 two puffs b.i.d. 7. Vitamin D3. 8. Plavix 75 mg p.o. daily. 9. Vitamin B12 1000 mcg p.o. daily. 10.Lasix 20 mg p.o. daily. 11.NovoLog scale. 12.Cozaar. 13.Trileptal. 14.Protonix. 15.Lyrica. PHYSICAL EXAMINATION: Patient is alert, oriented x3. The pulse is 68, blood pressure 130/78, respiration 18, temperature 98.2, pulse ox 94% on room air. HEENT: Conjunctivae normal. NECK: No jugular venous distention. CARDIOVASCULAR SYSTEM: S1, S2 muffled. RESPIRATORY SYSTEM: Breath sounds diminished at the bases. Bilateral scattered rhonchi and crackles. ABDOMEN: Soft, obese, non-tender. LEGS: No edema. No swelling. Bilateral bluish lesions and healed scars also in the feet are also present. NERVOUS SYSTEM: No focal deficit. LABS: WBC 9.1, hemoglobin is 8.2, sodium 136, potassium 3.8. Glucose 199, calcium 7.6. ASSESSMENT: 1. Chronic obstructive pulmonary disease, acute exacerbation, with acute purulent tracheobronchitis with acute hypoxic hypercarbic respiratory failure. 2. Metabolic encephalopathy, multifactorial. 3. Acute prg-UD-wbvywoh-elevation myocardial infarction. 4. Raynaud's phenomenon with fingertip and toe ischemia. 5. History of nicotine dependence. 6. Persistent atrial fibrillation. 7. Coronary artery disease, stent. 8. Degenerative joint disease. 9. Diabetic peripheral neuropathy. 10.Hyponatremia. 11.Hypokalemia. RECOMMENDATIONS AND DISCUSSION: I recommend to continue current medications, continue with the monitoring, symptomatic treatment. Otherwise at this time I would also recommend baseline labs. Continue the rest of the medications. The patient is also on anticoagulants. I would also recommend a vascular surgery consultation. I would also recommend following with Wound Care. The cultures are negative so far. Otherwise, continue to monitor. Will order the serum protein and cryoglobulins, also. MMODL / IJN: [id number] /
[2019-05-09 19:55] LABS: Glucose,Whole Blood 339 mg/dL (75-99)
[2019-05-09] MEDS: ATORVASTATIN 40 MG TAB PO SCH (20:38)
[2019-05-09] MEDS: ALPRAZolam 0.25 MG TAB PO SCH (20:38)
[2019-05-10] MEDS: MORPHINE SULFATE 2 MG/ML SYRINGE IVP PRN (00:18)
[2019-05-10 07:09] LABS: Glucose,Whole Blood 158 mg/dL (75-99)
[2019-05-10] MEDS: SYMBICORT 160-4.5 MCG INHALER INHALATION SCH ×2 (07:35→22:13)
[2019-05-10] MEDS: IPRATROPIUM-ALBUTEROL 3 ML NEB INHALATION SCH ×2 (07:35→22:13)
[2019-05-10] MEDS: PANTOPRAZOLE 40 MG/10 ML VIAL IV SCH ×2 (07:54→20:26)
[2019-05-10] MEDS: INSULIN ASPART (NovoLOG) 100 UNIT/ML VIAL SQ SCH ×4 (07:54→20:46)
[2019-05-10] MEDS: APIXABAN 2.5 MG TABLET PO SCH ×2 (07:55→20:25)
[2019-05-10] MEDS: FUROSEMIDE 20 MG TAB PO SCH (07:55)
[2019-05-10] MEDS: CLOPIDOGREL 75 MG TAB PO SCH (07:55)
[2019-05-10] MEDS: LOSARTAN 50 MG TAB PO SCH (07:55)
[2019-05-10] MEDS: CHOLECALCIFEROL 1,000 UNIT TAB PO SCH (07:55)
[2019-05-10] MEDS: PREGABALIN 75 MG CAP PO SCH ×2 (07:55→20:25)
[2019-05-10] MEDS: CYANOCOBALAMIN 500 MCG TAB PO SCH ×2 (07:55→20:25)
[2019-05-10] MEDS: OXcarbazepine 300 MG TAB PO SCH ×2 (07:58→21:30)
[2019-05-10] MEDS: ACETAMINOPHEN TAB 325 MG TAB PO PRN (10:55)
[2019-05-10 11:45] LABS: Glucose,Whole Blood 318 mg/dL (75-99)
--- NOTE | 2019-05-10 13:23 | P.PN ---
Subjective Progress Note Date: 05/10/19 Principal diagnosis: PAD, left fifth toe ulcer Patient was seen and examined at bedside. She states she is doing well and her lower extremity pain has been stable and is actually improved since her revascularization procedure several months ago. Patient states she has had a wo und in her left fifth toe which she has been watching over the last several weeks. She denies any fevers, chills, chest pain or shortness of breath at this time. Objective - Vital Signs Vital signs: Vital Signs Temp 99.6 F 05/10/19 07:12 Pulse 74 05/10/19 07:12 Resp 18 05/10/19 07:12 BP 129/65 05/10/19 07:12 Pulse Ox 97 05/10/19 07:12 Intake & Output 05/09/19 05/10/19 05/10/19 18:59 06:59 18:59 Other: Voiding Method Indwelling Catheter Toilet # Voids 1 - Exam Right lower extremity DP and PT multiphasic signal, good capillary refill Left lower extremity PT monophasic signal, slowed capillary refill Left fifth toe with small ulceration on the medial aspect with some dry gangrene noted. There is some areas of drainage that is mild. Overall the wound is chronic - Labs CBC & Chem 7: 05/09/19 05:15 05/09/19 16:33 Labs: Abnormal Lab Results - Last 24 Hours (Table) 05/09/19 05/09/19 05/09/19 Range/Units 16:33 16:59 19:53 Sodium 136 L (137-145) mmol/L Glucose 146 H (74-99) mg/dL POC Glucose (mg/dL) 164 H 339 H (75-99) mg/dL Calcium 7.8 L (8.4-10.2) mg/dL ALT 35 H (4-34) U/L Alkaline Phosphatase 129 H (38-126) U/L Total Protein 5.2 L (6.3-8.2) g/dL Albumin 2.7 L (3.5-5.0) g/dL 05/10/19 05/10/19 Range/Units 07:05 11:43 Sodium (137-145) mmol/L Glucose (74-99) mg/dL POC Glucose (mg/dL) 158 H 318 H (75-99) mg/dL Calcium (8.4-10.2) mg/dL ALT (4-34) U/L Alkaline Phosphatase (38-126) U/L Total Protein (6.3-8.2) g/dL Albumin (3.5-5.0) g/dL Microbiology - Last 24 Hours (Table) 05/03/19 22:25 Blood Culture - Final Blood No Growth after 144 hours Assessment and Plan Assessment: 1. Bilateral lower extremity PAD with left fifth toe gangrene 2. S/P vent 3. Altered mental status 4. CAD 5. GIB 6. Anemia Plan: No vascular intervention at this time Continue local wound care to the wound bed, would recommend Nathaly. Follow-up in the office in the next couple weeks for continued evaluation. If the left fifth toe worsens or becomes infected then she may need amputation at that time. Thank you for allowing me to participate in your patient's care.
[2019-05-10 16:39] LABS: Glucose,Whole Blood 211 mg/dL (75-99)
[2019-05-10] MEDS: ATORVASTATIN 40 MG TAB PO SCH (20:26)
[2019-05-10] MEDS: ALPRAZolam 0.25 MG TAB PO SCH (20:40)
[2019-05-10 20:43] LABS: Glucose,Whole Blood 294 mg/dL (75-99)
--- NOTE | 2019-05-10 21:13 | PN ---
PROGRESS NOTE DATE OF SERVICE: 05/10/2019 This 79-year-old woman was admitted with significant COPD exacerbation and acute hypoxic respiratory failure, also had Raynaud's phenomenon bilateral. The patient has been evaluated by vascular surgery also. The patient also had wound on the left toes, some are healing at this time. The patient is being closely monitored by Dr. Aguilera otherwise. PAST MEDICAL HISTORY: Reviewed. REVIEW OF SYSTEMS: CARDIOVASCULAR SYSTEM: No angina. RESPIRATORY: No cough. GI: As mentioned earlier. : No dysuria. NERVOUS SYSTEM: No numbness or weakness. CURRENT MEDICATIONS: 1. Tylenol p.r.n. 2. DuoNeb q.i.d. and p.r.n. 3. Xanax 0.5 q.h.s. 4. Eliquis 2.5 mg p.o. b.i.d. 5. Lipitor 40 mg q.h.s. 6. Symbicort 160/4.5 two puffs b.i.d. 7. Vitamin D3. 8. Plavix 75 mg p.o. 9. Vitamin B12 1000 mcg. 10.Lasix 20 mg p.o. daily. 11.NovoLog scale. 12.Cozaar. 13.Morphine sulfate. 14.Trileptal 150 mg daily. 15.Protonix 40 mg IV b.i.d. 16.Lyrica 150 mg p.o. b.i.d. PHYSICAL EXAMINATION: Patient is alert, oriented x3. Pulse is 61, blood pressure is 135/70, respiration 18, temperature 98.4, pulse ox 100% on room air. HEENT: Conjunctivae normal. Oral mucosa moist. NECK: No jugular venous distention. No lymph node enlargement. CARDIOVASCULAR: S1, S2. RESPIRATORY: Diminished breath sounds at the bases. Scattered rhonchi and crackles. Respiratory wheezing also present. ABDOMEN: Soft, nontender. LEGS: No edema, no swelling. NERVOUS SYSTEM: No focal deficits. LAB: Sodium 136. Accu-Cheks 164 and up to 318. Albumin is 2.7. ASSESSMENT: 1. Chronic obstructive pulmonary disease acute exacerbation with acute purulent tracheobronchitis with acute hypoxic respiratory failure. 2. Acute metabolic encephalopathy, multifactorial. 3. Acute vti-TY-xdglslu-elevation myocardial infarction. 4. Raynaud's phenomenon fingertips and with toe ischemia. 5. Peripheral arterial disease. 6. History of nicotine dependence. 7. Persistent atrial fibrillation. 8. History of coronary artery disease, stent. 9. History of degenerative joint disease. 10.History of diabetic peripheral neuropathy. 11.Hyponatremia. 12.Hypokalemia. RECOMMENDATIONS AND DISCUSSION: Recommend to continue current medications, continue to monitor and symptomatic treatment. Otherwise, at this time I recommend repeat labs. Otherwise, antiplatelet agents. Continue with apixaban. Influenza negative. We will continue to monitor. Otherwise, prognosis guarded because of multiple complex medical issues. See orders for details. Cryoglobulins are pending at this time. Further recommendations to follow. MMODL / IJN: [id number] /
[2019-05-11] MEDS: MORPHINE SULFATE 2 MG/ML SYRINGE IVP PRN ×2 (04:46→20:00)
[2019-05-11 06:55] LABS: Glucose,Whole Blood 207 mg/dL (75-99)
[2019-05-11 07:08] LABS: African American GFR (CKD) >90 (>60 ml/min/1.73 sqM); Anion Gap 5 mmol/L; Blood Urea Nitrogen 13 mg/dL (7-17); Calcium 8.1 mg/dL (8.4-10.2); Carbon Dioxide 25 mmol/L (22-30); Chloride 106 mmol/L (98-107); Glucose 162 mg/dL (74-99); Non-African American GFR(CKD) 84 (>60 ml/min/1.73 sqM); Potassium 3.9 mmol/L (3.5-5.1); Sodium 136 mmol/L (137-145)
[2019-05-11 07:13] LABS: Anisocytosis Slight; HCT 25.5 % (34.0-46.0); HGB 7.4 gm/dL (11.4-16.0); Hypochromasia Marked; MCH 24.3 pg (25.0-35.0); MCV 83.9 fL (80.0-100.0); Mean Platelet Volume 9.6; Platelet Count 219 k/uL (150-450); Poikilocytosis Moderate; RBC 3.04 m/uL (3.80-5.40); RDW 18.7 % (11.5-15.5); WBC 8.7 k/uL (3.8-10.6)
[2019-05-11] MEDS: INSULIN ASPART (NovoLOG) 100 UNIT/ML VIAL SQ SCH ×4 (07:39→20:18)
[2019-05-11] MEDS: PANTOPRAZOLE 40 MG/10 ML VIAL IV SCH ×2 (07:39→21:48)
[2019-05-11] MEDS: OXcarbazepine 300 MG TAB PO SCH ×2 (07:40→20:18)
[2019-05-11] MEDS: CHOLECALCIFEROL 1,000 UNIT TAB PO SCH (07:40)
[2019-05-11] MEDS: ACETAMINOPHEN TAB 325 MG TAB PO PRN ×2 (07:40→17:19)
[2019-05-11] MEDS: LOSARTAN 50 MG TAB PO SCH (07:40)
[2019-05-11] MEDS: CLOPIDOGREL 75 MG TAB PO SCH (07:40)
[2019-05-11] MEDS: PREGABALIN 75 MG CAP PO SCH ×2 (07:40→20:18)
[2019-05-11] MEDS: APIXABAN 2.5 MG TABLET PO SCH ×2 (07:41→20:10)
[2019-05-11] MEDS: CYANOCOBALAMIN 500 MCG TAB PO SCH ×2 (07:41→20:10)
[2019-05-11] MEDS: FUROSEMIDE 20 MG TAB PO SCH (07:41)
[2019-05-11] MEDS: SYMBICORT 160-4.5 MCG INHALER INHALATION SCH ×2 (08:08→20:04)
[2019-05-11] MEDS: IPRATROPIUM-ALBUTEROL 3 ML NEB INHALATION SCH ×2 (08:08→20:04)
[2019-05-11 08:50] LABS: Eosinophils # (M) 0.09 k/uL (0-0.7); Lymphocytes # (M) 1.48 k/uL (1.0-4.8); Monocytes # (M) 1.13 k/uL (0-1.0); Neutrophils % (M) 69 %; Nucleated Red Blood Cells 0 /100 WBC (0-0); Total Cells Counted 100
[2019-05-11 11:37] LABS: Glucose,Whole Blood 234 mg/dL (75-99)
[2019-05-11 12:41] VITALS: BMI 31.4
--- NOTE | 2019-05-11 14:29 | P.PN ---
Subjective Progress Note Date: 05/11/19 Principal diagnosis: PAD, left fifth toe ulcer Patient was seen and examined at bedside. She states she is doing well and her lower extremity pain has been stable. She denies any fevers, chills, chest pain or shortness of breath at this time. Objective - Vital Signs Vital signs: Vital Signs Temp 98.9 F 05/11/19 07:05 Pulse 70 05/11/19 07:05 Resp 18 05/11/19 07:05 BP 148/85 05/11/19 07:05 Pulse Ox 96 05/11/19 07:05 Intake & Output 05/10/19 05/11/19 05/11/19 18:59 06:59 18:59 Weight 85.7 kg Other: Voiding Method Toilet # Voids 4 4 - Exam Right lower extremity DP and PT multiphasic signal, good capillary refill Left lower extremity PT monophasic signal, slowed capillary refill Left fifth toe with small ulceration on the medial aspect with some dry gangrene noted. There is some areas of drainage that is mild. Overall the wound is chronic - Constitutional General appearance: Present: cooperative - EENT Eyes: Present: EOMI, PERRLA - Cardiovascular Rhythm: regular - Neurologic Neurologic: Absent: focal deficits - Psychiatric Psychiatric: Present: A&O x's 3, appropriate affect - Labs CBC & Chem 7: 05/11/19 06:22 05/11/19 06:22 Labs: Abnormal Lab Results - Last 24 Hours (Table) 05/10/19 05/10/19 05/11/19 Range/Units 16:37 20:41 06:22 RBC 3.04 L (3.80-5.40) m/uL Hgb 7.4 L (11.4-16.0) gm/dL Hct 25.5 L (34.0-46.0) % MCH 24.3 L (25.0-35.0) pg MCHC 29.0 L (31.0-37.0) g/dL RDW 18.7 H (11.5-15.5) % Monocytes # (Manual) 1.13 H (0-1.0) k/uL Sodium (137-145) mmol/L Glucose (74-99) mg/dL POC Glucose (mg/dL) 211 H 294 H (75-99) mg/dL Calcium (8.4-10.2) mg/dL 05/11/19 05/11/19 05/11/19 Range/Units 06:22 06:54 11:36 RBC (3.80-5.40) m/uL Hgb (11.4-16.0) gm/dL Hct (34.0-46.0) % MCH (25.0-35.0) pg MCHC (31.0-37.0) g/dL RDW (11.5-15.5) % Monocytes # (Manual) (0-1.0) k/uL Sodium 136 L (137-145) mmol/L Glucose 162 H (74-99) mg/dL POC Glucose (mg/dL) 207 H 234 H (75-99) mg/dL Calcium 8.1 L (8.4-10.2) mg/dL Assessment and Plan Assessment: 1. Bilateral lower extremity PAD with left fifth toe gangrene 2. S/P vent 3. Altered mental status 4. CAD 5. GIB 6. Chronic Anemia Plan: No vascular intervention at this time Continue local wound care to the wound bed, would recommend Nathaly. Follow-up in the office in the next couple weeks for continued evaluation.
--- NOTE | 2019-05-11 16:35 | PN ---
PROGRESS NOTE DATE OF SERVICE: 05/11/2019 This 79-year-old woman who was admitted with COPD acute exacerbation as well as acute purulent tracheobronchitis, acute hypoxic respiratory failure also had metabolic encephalopathy. Patient also had acute kju-GQ-qcrdgls-elevation myocardial infarction. Patient also had Raynaud phenomenon. Multiple consultants are following the patient closely, including Pulmonary and vascular surgery. Patient has also complained of generalized weakness and tiredness also. No chest pain. No palpitations. No fever. PAST MEDICAL HISTORY: Reviewed. REVIEW OF SYSTEMS: Cardiovascular system: No angina or palpitations. RESPIRATORY: As mentioned earlier. GI: As mentioned earlier. : No dysuria. NERVOUS SYSTEM: No numbness or weakness. CURRENT MEDICATIONS: Reviewed and include: 1. Tylenol p.r.n. 2. DuoNeb q.i.d. and p.r.n. 3. Xanax 0.5 q.h.s. 4. Eliquis 2.5 mg p.o. b.i.d. 5. Lipitor 40 mg daily. 6. Symbicort 160/4.5 two puffs b.i.d. 7. Vitamin D3 2000 daily. 8. Plavix 75 mg p.o. daily. 9. Vitamin B12 1000 mcg p.o. daily. 10.Lasix 20 mg p.o. daily. 11.NovoLog scale. 12.Cozaar. 13.Replacement protocol Trileptal. 14.Protonix. 15.Lyrica. PHYSICAL EXAM: Patient is alert, oriented x3. Pulse is 73, blood pressure 143/76, respirations 18, temperature normal. Pulse ox 98% on room air. HEENT: Conjunctivae normal. NECK: No JVD. CARDIOVASCULAR: S1, S2 muffled. RESPIRATIONS: Breath sounds diminished in the bases. Bilateral scattered rhonchi and crackles. ABDOMEN: Soft, nontender. LEGS are no edema. No swelling. USER EXPERIENCE LEAD: No focal deficits. LABS: WBC 8.2, hemoglobin 7.4, sodium 136. ASSESSMENT: 1. Chronic obstructive pulmonary disease acute exacerbation with acute purulent tracheobronchitis with acute hypoxic respiratory failure. 2. Acute metabolic encephalopathy multifactorial. 3. Acute wiv-ZE-wcfcgdx-elevation myocardial infarction. 4. Raynaud phenomenon with fingertips with toe ischemia. 5. Anemia, possibly anemia of chronic disease with symptomatic. 6. Peripheral vascular arterial disease. 7. History of nicotine dependence. 8. History of persistent atrial fibrillation. 9. History of coronary artery disease/stent. 10.History of degenerative joint disease. 11.History of diabetic peripheral neuropathy. 12.Hyponatremia. 13.Hypokalemia. 14.Gait dysfunction. 15.Possibly stool OB was positive. 16.FULL CODE. RECOMMENDATIONS AND DISCUSSION: In this 79-year-old woman who presented with multiple complex medical issues, we will monitor the patient closely. Continue the current medications, management and symptomatic treatment. PT/OT evaluation, possible ECF rehab. Continue the bronchodilators. Continue with Eliquis. There is no evidence of bleeding anywhere, but the hemoglobin is gradually dropped from 8-7.4 at this time. The patient had initial hemoglobin 6.2. The total iron level is 9, TIBC 2.21. 17.3. Gastroenterology following the patient closely. Recommended continue the current medication at this time. Otherwise, prognosis guarded. Further recommendations to follow. See orders for details. MMODL / IJN: [id number] / JIMBO
[2019-05-11 16:47] LABS: Glucose,Whole Blood 260 mg/dL (75-99)
[2019-05-11] MEDS ORDERED: FUROSEMIDE 10 MG/ML 2 ML VIAL IV ONE (17:54)
[2019-05-11 20:01] LABS: Glucose,Whole Blood 321 mg/dL (75-99)
[2019-05-11] MEDS: ALPRAZolam 0.25 MG TAB PO SCH (20:10)
[2019-05-11] MEDS: ATORVASTATIN 40 MG TAB PO SCH (20:10)
[2019-05-12] MEDS: MORPHINE SULFATE 2 MG/ML SYRINGE IVP PRN (00:39)
[2019-05-12] MEDS: ACETAMINOPHEN TAB 325 MG TAB PO PRN (00:42)
[2019-05-12 06:51] LABS: Glucose,Whole Blood 208 mg/dL (75-99)
[2019-05-12 07:39] LABS: African American GFR (CKD) >90 (>60 ml/min/1.73 sqM); Anion Gap 5 mmol/L; Blood Urea Nitrogen 14 mg/dL (7-17); Calcium 8.2 mg/dL (8.4-10.2); Carbon Dioxide 27 mmol/L (22-30); Chloride 106 mmol/L (98-107); Glucose 152 mg/dL (74-99); Non-African American GFR(CKD) 86 (>60 ml/min/1.73 sqM); Sodium 138 mmol/L (137-145)
[2019-05-12 07:43] LABS: Potassium 4.2 mmol/L (3.5-5.1)
[2019-05-12 08:07] LABS: Anisocytosis Slight; Basophils % (A) 0 %; Eosinophils # (A) 0.2 k/uL (0-0.7); Eosinophils % (A) 2 %; HCT 29.6 % (34.0-46.0); HGB 8.7 gm/dL (11.4-16.0); Hypochromasia Marked; Lymphocytes # (A) 1.9 k/uL (1.0-4.8); Lymphocytes % (A) 24 %; MCH 24.3 pg (25.0-35.0); MCHC 29.3 g/dL (31.0-37.0); MCV 83.1 fL (80.0-100.0); Mean Platelet Volume 8.2; Monocytes # (A) 1.1 k/uL (0-1.0); Monocytes % (A) 14 %; Neutrophils # (A) 4.6 k/uL (1.3-7.7); Neutrophils % (A) 57 %; Platelet Count 149 k/uL (150-450); Poikilocytosis Marked; RBC 3.57 m/uL (3.80-5.40); RDW 18.4 % (11.5-15.5)
[2019-05-12 08:19] VITALS: BP 144/80; RESP 16; TEMP 97.7
[2019-05-12] MEDS: IPRATROPIUM-ALBUTEROL 3 ML NEB INHALATION SCH (08:21)
[2019-05-12] MEDS: SYMBICORT 160-4.5 MCG INHALER INHALATION SCH (08:21)
[2019-05-12] MEDS: PREGABALIN 75 MG CAP PO SCH (08:23)
[2019-05-12] MEDS: PANTOPRAZOLE 40 MG/10 ML VIAL IV SCH (08:23)
[2019-05-12] MEDS: FUROSEMIDE 20 MG TAB PO SCH (08:24)
[2019-05-12] MEDS: CHOLECALCIFEROL 1,000 UNIT TAB PO SCH (08:24)
[2019-05-12] MEDS: INSULIN ASPART (NovoLOG) 100 UNIT/ML VIAL SQ SCH ×2 (08:24→11:37)
[2019-05-12] MEDS: CLOPIDOGREL 75 MG TAB PO SCH (08:24)
[2019-05-12] MEDS: APIXABAN 2.5 MG TABLET PO SCH (08:24)
[2019-05-12] MEDS: CYANOCOBALAMIN 500 MCG TAB PO SCH (08:24)
[2019-05-12] MEDS: OXcarbazepine 300 MG TAB PO SCH (08:25)
[2019-05-12] MEDS: LOSARTAN 50 MG TAB PO SCH (08:25)
[2019-05-12 08:36] VITALS: PULSE 64
[2019-05-12] MEDS ORDERED: HYDROcodone/APAP 5-325MG 1 EACH TAB PO PRN (11:27)
[2019-05-12 11:33] LABS: Glucose,Whole Blood 193 mg/dL (75-99)
--- NOTE | 2019-05-12 12:19 | P.DS ---
Providers Date of admission: 05/04/19 02:59 Expected date of discharge: 05/12/19 Attending physician: Momo Medina Consults: 05/04/19 02:55 Consult Physician Stat Consulting Provider: Rancho Bellamy Consult Reason/Comments: femoral artery occlusion Do you want consulting provider notified?: Already Contacted Consult Physician Stat Consulting Provider: Kalyn Kaur Consult Reason/Comments: ICU Do you want consulting provider notified?: Already Contacted 05/04/19 09:57 Consult Physician Routine Consulting Provider: Vitor Epps Consult Reason/Comments: a flutter,+ troponin Do you want consulting provider notified?: Yes 05/09/19 14:03 Consult Physician Routine Consulting Provider: Ibrahima Aguilera Consult Reason/Comments: necrotic left toe Do you want consulting provider notified?: Yes 05/11/19 15:44 Consult Physician Routine Consulting Provider: Prieto Rosa Consult Reason/Comments: anemia- EGD?? Do you want consulting provider notified?: Yes Primary care physician: He Giraldo [facility] Course: Final diagnosis Chronic obstructive pulmonary disease acute exacerbation with acute purulent tracheobronchitis with acute hypoxic respiratory failure Acute metabolic encephalopathy multifactorial Acute non-ST segment elevation myocardial infarction Reynaud phenomenon with fingertips with toe ischemia Anemia, possibly anemia of chronic disease with symptomatic Peripheral vascular arterial disease History of nicotine dependence History of persistent atrial fibrillation History of coronary artery disease, stent History of degenerative joint disease History of diabetic peripheral neuropathy Hyponatremia Hypokalemia Gait dysfunction possible stool occult blood was positive Full code Discharge disposition Patient is being discharged in a stable condition with guarded prognosis to [facility] for continued PT/OT therapy. Will follow-up with Dr. Giraldo in the outpatient setting. Patient will also follow-up with Dr. Aguilera with v don surgery in the outpatient setting in 2-3 weeks. Total time taken is 35 minutes. History of present illness This is a 79-year-old female who was recently admitted with COPD exacerbation acute as well as acute purulent tracheobronchitis, acute hypoxic respiratory failure also was found to have metabolic encephalopathy and was being closely monitored. Patient was also found to have a non-ST segment elevation myocardial infarction. Patient was also found to have reynaud phenomenon and was evaluated by vascular surgery recommending outpatient follow-up in 2-3 weeks' time. Patient was having some generalized weakness and fatigue as well and was evaluated by physical therapy recommending subacute rehab upon discharge. Authorization has been obtained for [facility] and patient will be going to [facility] today. Currently no reports of chest pain or palpitations. Patient is afebrile. No reports of nausea or vomiting and patient has been tolerating diet. Patient's condition is stable today and will be going to [facility] for continued PT/OT therapy. On exam vital signs are stable. Temp is 97.7F, pulse is 65, respirations are 16, blood pressure is 144/80, oxygen saturation is 99% on room air. Cardio S1, S2 are muffled. Respiratory system shows diminished breath sounds at the bases with a few scattered rhonchi and crackles noted. Abdomen is soft and nontender. Nervous system shows mild diffuse weakness. Please refer to medication reconciliation sheet for a list of medications. Patient Condition at Discharge: Stable Plan - Discharge Summary New Discharge Prescriptions: New Apixaban [Eliquis] 2.5 mg PO BID tablet HYDROcodone/APAP 5-325MG [[place] 5-325] 1 each PO Q6HR PRN #3 tab PRN Reason: Pain INSULIN ASPART (NovoLOG) [NovoLOG (formulary)] 0 unit SQ ACHS vial Pregabalin [Lyrica] 150 mg PO BID cap Continue Ipratropium-Albuterol Nebulize [Duoneb 0.5 mg-3 mg/3 ml Soln] 3 ml INHALATION RT-BID ALPRAZolam [Xanax] 0.25 mg PO HS Montelukast [Singulair] 10 mg PO HS #30 tab Budesonide-Formot 160-4.5 Mcg [Symbicort 160-4.5 Mcg Inhaler] 2 puff INHALATION RT-BID Losartan [Cozaar] 50 mg PO QAM Cholecalciferol [Vitamin D3 (25 Mcg = 1000 Iu)] 2,000 unit PO DAILY Dapagliflozin Propanediol [Farxiga] 5 mg PO DAILY Cyanocobalamin (Vitamin B-12) [Vitamin B-12] 1,000 mcg PO BID Acetaminophen [Tylenol Extra Strength] 500 mg PO Q6HR PRN PRN Reason: Moderate Pain Liraglutide [Victoza 2-Orlin] 1.8 mg SQ HS Apixaban [Eliquis] 5 mg PO BID tab Furosemide [Lasix] 20 mg PO DAILY Rosuvastatin [Crestor] 20 mg PO HS OXcarbazepine [Trileptal] 300 mg PO BID Clopidogrel [Plavix] 75 mg PO DAILY metFORMIN HCL [metFORMIN HCL ER] 750 mg PO BID Pregabalin [Lyrica] 150 mg PO BID #2 cap Discharge Medication List ALPRAZolam [Xanax] 0.25 mg PO HS 09/16/16 [History] Ipratropium-Albuterol Nebulize [Duoneb 0.5 mg-3 mg/3 ml Soln] 3 ml INHALATION RT-BID 09/16/16 [History] Montelukast [Singulair] 10 mg PO HS #30 tab 09/20/16 [Rx] Budesonide-Formot 160-4.5 Mcg [Symbicort 160-4.5 Mcg Inhaler] 2 puff INHALATION RT-BID 10/05/16 [History] Cholecalciferol [Vitamin D3 (25 Mcg = 1000 Iu)] 2,000 unit PO DAILY 07/18/17 [History] Cyanocobalamin (Vitamin B-12) [Vitamin B-12] 1,000 mcg PO BID 07/18/17 [History] Dapagliflozin Propanediol [Farxiga] 5 mg PO DAILY 07/18/17 [History] Losartan [Cozaar] 50 mg PO QAM 07/18/17 [History] Acetaminophen [Tylenol Extra Strength] 500 mg PO Q6HR PRN 07/20/17 [History] Liraglutide [Victoza 2-Orlin] 1.8 mg SQ HS 12/26/18 [History] Apixaban [Eliquis] 5 mg PO BID tab 12/27/18 [Rx] Clopidogrel [Plavix] 75 mg PO DAILY 01/10/19 [History] Furosemide [Lasix] 20 mg PO DAILY 01/10/19 [History] OXcarbazepine [Trileptal] 300 mg PO BID 01/10/19 [History] Rosuvastatin [Crestor] 20 mg PO HS 01/10/19 [History] metFORMIN HCL [metFORMIN HCL ER] 750 mg PO BID 02/15/19 [History] Apixaban [Eliquis] 2.5 mg PO BID tablet 05/12/19 [Rx] HYDROcodone/APAP 5-325MG [[place] 5-325] 1 each PO Q6HR PRN #3 tab 05/12/19 [Rx] INSULIN ASPART (NovoLOG) [NovoLOG (formulary)] 0 unit SQ ACHS vial 05/12/19 [Rx] Pregabalin [Lyrica] 150 mg PO BID cap 05/12/19 [Rx] Pregabalin [Lyrica] 150 mg PO BID #2 cap 05/12/19 [Rx] Follow up Appointment(s)/Referral(s): Ibrahima Aguilera DO [STAFF PHYSICIAN] - 2 Weeks He Giraldo MD [Primary Care Provider] - 1-2 days Ambulatory/Diagnostic Orders: Complete Blood Count w/diff [LAB.AMB] Time Frame: 2 Days, Location: None Selected Activity/Diet/Wound Care/Special Instructions: Patient is going to [facility] as tolerated Continue current diet Continue monitoring blood sugars before meals at bedtime and treat accordingly with sliding scale Repeat labs in 2-3 days Follow-up with vascular surgery in the outpatient setting in 2-3 weeks Discharge Disposition: TRANSFER TO SNF/ECF
--- NOTE | 2019-05-12 13:14 | P.PN ---
Subjective Progress Note Date: 05/12/19 She was seen and evaluated lying in bed in no acute distress, and no changes through the night. He shouldn't states still has some mild discomfort on her left toe. Denies any fever or chills. Objective - Vital Signs Vital signs: Vital Signs Temp 97.7 F 05/12/19 07:00 Pulse 64 05/12/19 08:36 Resp 16 05/12/19 07:00 BP 144/80 05/12/19 07:00 Pulse Ox 99 05/12/19 07:00 Intake & Output 05/11/19 05/12/19 05/12/19 18:59 06:59 18:59 Intake Total 500 310 Balance 500 310 Weight 85.7 kg 86.75 kg Intake: Oral 500 Blood Product 0 310 Rc Pheresis As-3 Unit 0 310 [id number] Other 0 Rc Pheresis As-3 Unit 0 [id number] Other: Voiding Method Toilet # Voids 6 - Exam General appearance: The patient is alert, oriented, in no acute distress. HET: Head is normocephalic and atraumatic. Neck: Supple without lymphadenopathy. Trachea midline. Heart: S1 S2. Regular rate and rhythm. Lungs: No crackles or wheezes are heard. Extremities: Right lower extremity DP and PT multiphasic signal, good capillary refill. Left lower extremity PT monophasic signal, decreased capillary refill. Left medial aspect of the fifth toe with small ulceration and dry gangrene. No drainage noted. Neurological: No focal deficits. - Labs CBC & Chem 7: 05/12/19 07:11 05/12/19 07:11 Labs: Abnormal Lab Results - Last 24 Hours (Table) 05/03/19 05/11/19 05/11/19 Range/Units 22:25 11:36 15:57 RBC (3.80-5.40) m/uL Hgb (11.4-16.0) gm/dL Hct (34.0-46.0) % MCH (25.0-35.0) pg MCHC (31.0-37.0) g/dL RDW (11.5-15.5) % Plt Count (150-450) k/uL Monocytes # (0-1.0) k/uL Glucose (74-99) mg/dL POC Glucose (mg/dL) 234 H (75-99) mg/dL Calcium (8.4-10.2) mg/dL Crossmatch See Detail See Detail 05/11/19 05/11/19 05/12/19 Range/Units 16:44 19:59 06:50 RBC (3.80-5.40) m/uL Hgb (11.4-16.0) gm/dL Hct (34.0-46.0) % MCH (25.0-35.0) pg MCHC (31.0-37.0) g/dL RDW (11.5-15.5) % Plt Count (150-450) k/uL Monocytes # (0-1.0) k/uL Glucose (74-99) mg/dL POC Glucose (mg/dL) 260 H 321 H 208 H (75-99) mg/dL Calcium (8.4-10.2) mg/dL Crossmatch 05/12/19 05/12/19 Range/Units 07:11 07:11 RBC 3.57 L (3.80-5.40) m/uL Hgb 8.7 L (11.4-16.0) gm/dL Hct 29.6 L (34.0-46.0) % MCH 24.3 L (25.0-35.0) pg MCHC 29.3 L (31.0-37.0) g/dL RDW 18.4 H (11.5-15.5) % Plt Count 149 L (150-450) k/uL Monocytes # 1.1 H (0-1.0) k/uL Glucose 152 H (74-99) mg/dL POC Glucose (mg/dL) (75-99) mg/dL Calcium 8.2 L (8.4-10.2) mg/dL Crossmatch Assessment and Plan Assessment: #1 bilateral lower extremity peripheral arterial disease with left fifth toe gangrene #2 status post ventilation #3 altered mental status, improved #4 coronary artery disease #5 chronic Anemia Plan: Vascular intervention at this time. Continue local wound care to the wound bed. Follow-up in the office in the next couple weeks for continued evaluation with Dr. Aguilera The above dictated assessment and findings were discussed with Dr. Mathews. The impression and plan of care have been directed as dictated.
[2019-05-12] MEDS ORDERED: COLLAGENASE 250 UNIT/GM OINTMENT 30 GM TUBE TOPICAL SCH (14:30)
--- NOTE | 2019-05-12 14:31 | P.CONS ---
History of Present Illness - Reason for Consult Consult date: 05/12/19 Wound care - History of Present Illness This is a 79-year-old pleasant female who is known to the wound care center being seen on 4 S. for nonhealing ulceration to the fifth great toe. Patient had multiple ulcerations to her left foot however the only ulceration that is still open is the fifth digit medial aspect. The ulceration is necrotic with eschar. Patient was seen by vascular surgery who said no vascular interventions were needed at this time. Patient utilizes Santyl at home. Her plan is to return to the wound care center for further treatments. She is being worked up for hyperbaric oxygen therapy. Review of Systems Review Of Systems: Constitutional: No fever, no chills, no night sweats. No weight change. No weakness, fatigue or lethargy. No daytime sleepiness. Integumentary:reports wounds, no lesions. No rash or pruritus. No unusual bruising. No change in hair or nails. Past Medical History Past Medical History: Heart Failure, Diabetes Mellitus, Myocardial Infarction ([place]), COPD, Diabetes Mellitus, Myocardial Infarction (OK), Osteoarthritis (OA), Skin Disorder, Vascular Disorder Additional Past Medical History / Comment(s): Leg pain, Trigeminal Neuralgia, Diabetic Neuropathy, [place] 1994, ROSCACEA Last Myocardial Infarction Date:: 1994 History of Any Multi-Drug Resistant Organisms: None Reported Past Surgical History: Appendectomy, Cholecystectomy, Heart Catheterization With Stent, Hysterectomy, Orthopedic Surgery, Pacemaker Additional Past Surgical History / Comment(s): Arthrectomy rt leg, Angioplasty, Pacemaker August 2016, left Foot Surgery, one heart stent Past Anesthesia/Blood Transfusion Reactions: No Reported Reaction Date of Last Stent Placement:: 1994 Type of Cardiac Device: Permanent Pacemaker Device Placement Date:: August 2016 Past Psychological History: No Psychological Hx Reported Smoking Status: Former smoker - Past Family History Father Family Medical History: Myocardial Infarction (OK) Mother Family Medical History: Congestive Heart Failure (CHF), CVA/TIA, Diabetes Mellitus Medications and Allergies Home Medications Medication Instructions Recorded Confirmed Type Ipratropium-Albuterol Nebulize 3 ml INHALATION RT-BID 09/16/16 05/05/19 History [Duoneb 0.5 mg-3 mg/3 ml Soln] Montelukast [Singulair] 10 mg PO HS #30 tab 09/20/16 05/05/19 Rx Budesonide-Formot 160-4.5 Mcg 2 puff INHALATION RT-BID 10/05/16 05/05/19 History [Symbicort 160-4.5 Mcg Inhaler] Cholecalciferol [Vitamin D3 (25 2,000 unit PO DAILY 07/18/17 05/05/19 History Mcg = 1000 Iu)] Cyanocobalamin (Vitamin B-12) 1,000 mcg PO BID 07/18/17 05/05/19 History [Vitamin B-12] Dapagliflozin Propanediol [Farxiga] 5 mg PO DAILY 07/18/17 05/05/19 History Losartan [Cozaar] 50 mg PO QAM 07/18/17 05/05/19 History Acetaminophen [Tylenol Extra 500 mg PO Q6HR PRN 07/20/17 05/05/19 History Strength] Liraglutide [Victoza 2-Orlin] 1.8 mg SQ HS 12/26/18 05/05/19 History Clopidogrel [Plavix] 75 mg PO DAILY 01/10/19 05/05/19 History Furosemide [Lasix] 20 mg PO DAILY 01/10/19 05/05/19 History OXcarbazepine [Trileptal] 300 mg PO BID 01/10/19 05/05/19 History Rosuvastatin [Crestor] 20 mg PO HS 01/10/19 05/05/19 History metFORMIN HCL [metFORMIN HCL ER] 750 mg PO BID 02/15/19 05/05/19 History ALPRAZolam [Xanax] 0.25 mg PO HS #1 tab 05/12/19 Rx Apixaban [Eliquis] 2.5 mg PO BID tablet 05/12/19 Rx HYDROcodone/APAP 5-325MG [[place] 1 each PO Q6HR PRN #3 tab 05/12/19 Rx 5-325] INSULIN ASPART (NovoLOG) [NovoLOG 0 unit SQ ACHS vial 05/12/19 Rx (formulary)] Pregabalin [Lyrica] 150 mg PO BID #2 cap 05/12/19 Rx Allergies Allergy/AdvReac Type Severity Reaction Status Date / Time codeine AdvReac Nausea & Verified 05/03/19 22:06 Vomiting sitagliptin [From ] AdvReac frequent Verified 05/03/19 22:06 UTI Physical Exam Vitals: Vital Signs Temp Pulse Pulse Resp BP BP Pulse Ox 05/12/19 08:36 64 05/12/19 08:24 60 05/12/19 07:00 97.7 F 65 16 144/80 99 05/12/19 02:37 98.2 F 58 L 17 148/72 95 05/11/19 21:31 97.8 F 63 18 145/82 05/11/19 19:34 120/71 05/11/19 19:05 98.7 F 76 16 120/71 98 05/11/19 18:33 98.0 F 68 18 101/54 97 05/11/19 18:28 97.2 F L 76 18 131/71 92 L 05/11/19 15:00 98.0 F 73 18 143/77 99 Intake and Output 05/11/19 05/12/19 05/12/19 22:59 06:59 14:59 Intake Total 0 310 500 Balance 0 310 500 Intake: Oral 500 Blood Product 0 310 Rc Pheresis As-3 Unit 0 310 [id number] Other 0 Rc Pheresis As-3 Unit 0 [id number] Other: # Voids 3 6 3 Weight 86.75 kg Physical exam: General Appearance: Alert, cooperative, no distress, appears stated age. Skin: See HPI all other Skin color, texture, tugor normal, no rashes or lesions. Neurologic: Alert oriented x3 Results CBC & Chem 7: 05/12/19 07:11 05/12/19 07:11 Labs: Abnormal Lab Results - Last 24 Hours (Table) 05/03/19 05/11/19 05/11/19 Range/Units 22:25 15:57 16:44 RBC (3.80-5.40) m/uL Hgb (11.4-16.0) gm/dL Hct (34.0-46.0) % MCH (25.0-35.0) pg MCHC (31.0-37.0) g/dL RDW (11.5-15.5) % Plt Count (150-450) k/uL Monocytes # (0-1.0) k/uL Glucose (74-99) mg/dL POC Glucose (mg/dL) 260 H (75-99) mg/dL Calcium (8.4-10.2) mg/dL Crossmatch See Detail See Detail 05/11/19 05/12/19 05/12/19 Range/Units 19:59 06:50 07:11 RBC 3.57 L (3.80-5.40) m/uL Hgb 8.7 L (11.4-16.0) gm/dL Hct 29.6 L (34.0-46.0) % MCH 24.3 L (25.0-35.0) pg MCHC 29.3 L (31.0-37.0) g/dL RDW 18.4 H (11.5-15.5) % Plt Count 149 L (150-450) k/uL Monocytes # 1.1 H (0-1.0) k/uL Glucose (74-99) mg/dL POC Glucose (mg/dL) 321 H 208 H (75-99) mg/dL Calcium (8.4-10.2) mg/dL Crossmatch 05/12/19 05/12/19 Range/Units 07:11 11:29 RBC (3.80-5.40) m/uL Hgb (11.4-16.0) gm/dL Hct (34.0-46.0) % MCH (25.0-35.0) pg MCHC (31.0-37.0) g/dL RDW (11.5-15.5) % Plt Count (150-450) k/uL Monocytes # (0-1.0) k/uL Glucose 152 H (74-99) mg/dL POC Glucose (mg/dL) 193 H (75-99) mg/dL Calcium 8.2 L (8.4-10.2) mg/dL Crossmatch Assessment and Plan (1) Type 2 diabetes mellitus with foot ulcer Current Visit: Yes Status: Acute Code(s): E11.621 - TYPE 2 DIABETES MELLITUS WITH FOOT ULCER; L97.509 - NON-PRESSURE CHRONIC ULCER OTH PRT UNSP FOOT W UNSP SEVERITY SNOMED Code(s): 724440554 (2) Diabetes mellitus due to underlying condition with diabetic neuropathy, unspecified Current Visit: Yes Status: Acute Code(s): E08.40 - DIABETES DUE TO UNDERLYING CONDITION W DIABETIC NEUROP, UNSP SNOMED Code(s): 5624140 (3) Gangrene, not elsewhere classified Current Visit: Yes Status: Acute Code(s): I96 - GANGRENE, NOT ELSEWHERE CLASSIFIED SNOMED Code(s): 681683340 (4) Atherosclerosis of [place] arteries of extremities with gangrene, other extremity Current Visit: Yes Status: Acute Code(s): I70.268 - ATHSCL [place] ARTERIES OF EXTRM W GANGRENE, OTH EXTREMITY SNOMED Code(s): 044276947699794 (5) Non-pressure chronic ulcer of other part of left foot with necrosis of bone Current Visit: Yes Status: Acute Code(s): L97.524 - NON-PRS CHRONIC ULCER OTH PRT LEFT FOOT W NECROSIS OF BONE SNOMED Code(s): 547470333 Plan: Apply Santyl, family moist gauze, foam, rolled gauze secured with paper tape. Change daily. Continue with weekly wound care at [facility] wound care center. Next appointment 05/16/2019 at 11:15. Patient is in the process of being worked up for HBO therapy. Patient to utilize a open toed shoe for minimal weightbearing. Thank you kindly for the consultation. Any questions please contact the wound care center DNP note has been reviewed and discussed with Dr. Beauchamp and the impression and plan of care has been directed as dictated.
== END 2019-05-12 15:55 | DRG 208 ==
LOC: EC 21:52 → 2SICU 05-04 02:59 → 4SSUR 05-09 14:53
PROVIDERS: ADMIT Hospitalist; ATTEND Hospitalist
PROC: 5A1945Z Respiratory Ventilation, 24-96 Consecutive Hours (ICD-10-PCS; principal; 2019-05-04)
PROC: 0BH17EZ Insertion of Endotracheal Airway into Trachea, Via Natural or Artificial Opening (ICD-10-PCS; 2019-05-04)
PROC: 30233N1 Transfusion of Nonautologous Red Blood Cells into Peripheral Vein, Percutaneous Approach (ICD-10-PCS; 2019-05-04)
PROC: 0DH67UZ Insertion of Feeding Device into Stomach, Via Natural or Artificial Opening (ICD-10-PCS; 2019-05-04)
PROC: 3E0G76Z Introduction of Nutritional Substance into Upper GI, Via Natural or Artificial Opening (ICD-10-PCS; 2019-05-05)
PROC: 05HF33Z Insertion of Infusion Device into Left Cephalic Vein, Percutaneous Approach (ICD-10-PCS; 2019-05-06)
DX: J44.1 Chronic obstructive pulmonary disease with (acute) exacerbation (principal); J96.01 Acute respiratory failure with hypoxia; I21.4 Non-ST elevation (NSTEMI) myocardial infarction; G93.41 Metabolic encephalopathy; J96.02 Acute respiratory failure with hypercapnia; I50.21 Acute systolic (congestive) heart failure; I48.21 Permanent atrial fibrillation; I70.269 Atherosclerosis of native arteries of extremities with gangrene, unspecified extremity; E11.52 Type 2 diabetes mellitus with diabetic peripheral angiopathy with gangrene; L97.528 Non-pressure chronic ulcer of other part of left foot with other specified severity; I70.262 Atherosclerosis of native arteries of extremities with gangrene, left leg; E87.4 Mixed disorder of acid-base balance; I48.92 Unspecified atrial flutter; I74.3 Embolism and thrombosis of arteries of the lower extremities; K92.2 Gastrointestinal hemorrhage, unspecified; D62 Acute posthemorrhagic anemia; J98.11 Atelectasis; E87.1 Hypo-osmolality and hyponatremia; J45.901 Unspecified asthma with (acute) exacerbation; D63.8 Anemia in other chronic diseases classified elsewhere; E11.621 Type 2 diabetes mellitus with foot ulcer; E11.42 Type 2 diabetes mellitus with diabetic polyneuropathy; F17.210 Nicotine dependence, cigarettes, uncomplicated; M19.91 Primary osteoarthritis, unspecified site; I25.10 Atherosclerotic heart disease of native coronary artery without angina pectoris; L71.9 Rosacea, unspecified; E87.6 Hypokalemia; J20.9 Acute bronchitis, unspecified; J44.0 Chronic obstructive pulmonary disease with (acute) lower respiratory infection; I73.00 Raynaud's syndrome without gangrene; R26.9 Unspecified abnormalities of gait and mobility; E66.9 Obesity, unspecified; G50.0 Trigeminal neuralgia; G89.29 Other chronic pain; I25.2 Old myocardial infarction; Z68.31 Body mass index [BMI] 31.0-31.9, adult; Z71.3 Dietary counseling and surveillance; Z79.01 Long term (current) use of anticoagulants; Z79.899 Other long term (current) drug therapy; Z79.51 Long term (current) use of inhaled steroids; Z79.02 Long term (current) use of antithrombotics/antiplatelets; Z95.5 Presence of coronary angioplasty implant and graft; Z90.49 Acquired absence of other specified parts of digestive tract; Z90.710 Acquired absence of both cervix and uterus; Z95.0 Presence of cardiac pacemaker; Z98.890 Other specified postprocedural states; Z88.5 Allergy status to narcotic agent; Z88.8 Allergy status to other drugs, medicaments and biological substances; Z82.49 Family history of ischemic heart disease and other diseases of the circulatory system; Z83.3 Family history of diabetes mellitus; Z82.3 Family history of stroke
CPT/HCPCS: 31500; 36410; 36415; 36430; 36600; 70450; 71045; 71046; 71250; 71275; 74176; 75635; 76937; 80048; 80053; 81003; 82272; 82550; 82595; 82607; 82728; 82746; 82805; 83540; 83550; 83605; 83735; 84100; 84466; 84484; 85025; 85045; 85610; 85730; 86850; 86900; 86901; 86920; 87040; 87070; 87205; 87502; 93005; 93306; 94002; 94003; 94640; 96361; 96365; 96366; 96375; 96376; 99291

== ENCOUNTER 2019-05-18 23:08 | Inpatient (IN) | payer MEDICARE, OTHER ==
[2019-05-18] MEDS ORDERED: IPRATROPIUM-ALBUTEROL 3 ML NEB INHALATION STA ×2 (23:29)
[2019-05-18] MEDS ORDERED: methylPREDNISolone SOD SUCCI 125 MG/2 ML VIAL IV STA (23:30)
[2019-05-18 23:38] LABS: Anisocytosis Slight; Basophils % (A) 1 %; Eosinophils % (A) 0 %; HCT 27.5 % (34.0-46.0); HGB 8.3 gm/dL (11.4-16.0); Hypochromasia Marked; Lymphocytes # (A) 0.6 k/uL (1.0-4.8); Lymphocytes % (A) 7 %; MCH 24.6 pg (25.0-35.0); MCV 81.9 fL (80.0-100.0); Mean Platelet Volume 7.9; Microcytosis Slight; Monocytes # (A) 0.5 k/uL (0-1.0); Monocytes % (A) 6 %; Neutrophils # (A) 7.3 k/uL (1.3-7.7); Neutrophils % (A) 84 %; Platelet Count 223 k/uL (150-450); Poikilocytosis Moderate; RBC 3.36 m/uL (3.80-5.40); RDW 18.8 % (11.5-15.5); WBC 8.7 k/uL (3.8-10.6)
[2019-05-18 23:45] LABS: Ammonia <9 umol/L (<30)
[2019-05-18 23:47] LABS: ALT 26 U/L (4-34); AST 43 U/L (14-36); African American GFR (CKD) 71 (>60 ml/min/1.73 sqM); Albumin 3.3 g/dL (3.5-5.0); Alcohol <10 mg/dL; Alkaline Phosphatase 150 U/L (38-126); Anion Gap 10 mmol/L; Blood Urea Nitrogen 26 mg/dL (7-17); Calcium 8.2 mg/dL (8.4-10.2); Carbon Dioxide 23 mmol/L (22-30); Chloride 102 mmol/L (98-107); Creatine Kinase 84 U/L (30-135); Glucose 192 mg/dL (74-99); INR 1.3 (<1.2); Non-African American GFR(CKD) 61 (>60 ml/min/1.73 sqM); Partial Thromboplastin Time 22.7 sec (22.0-30.0); Potassium 4.3 mmol/L (3.5-5.1); Prothrombin Time 12.6 sec (9.0-12.0); Sodium 135 mmol/L (137-145); Total Bilirubin 0.8 mg/dL (0.2-1.3); Total Protein 5.8 g/dL (6.3-8.2)
[2019-05-18 23:50] LABS: Lactic Acid, Venous 3.2 mmol/L (0.7-2.0)
[2019-05-18 23:57] LABS: ABG Base Excess 1.8 mmol/L; ABG HCO3 25 mmol/L (21-25); ABG Oxygen Saturation 99.9 % (94-97); ABG PCO2 33 mmHg (35-45); ABG PH 7.49 (7.35-7.45); ABG PO2 132 mmHg (83-108); ABG TCO2 26 mmol/L (19-24); Allen Test Performed? Yes
[2019-05-19 00:02] LABS: Appearance,Urine Cloudy (Clear); Bacteria,Urine Rare /hpf; Bilirubin,Urine Negative (Negative); Blood,Urine Trace (Negative); Color,Urine Yellow; Glucose,Urine (UA) 1+ (Negative); Ketones,Urine Negative (Negative); Leukocyte Esterase,Urine Large (Negative); Mucus,Urine Rare /hpf; Nitrite,Urine Negative (Negative); PH, Urine 5.5 (5.0-8.0); Protein,Urine 1+ (Negative); RBC,Urine 3 /hpf (0-5); Urobilinogen,Urine <2.0 mg/dL (<2.0); WBC,Urine >182 /hpf (0-5)
--- NOTE | 2019-05-19 00:02 | ED ---
General Adult HPI - General Chief complaint: Altered Mental Status Stated complaint: Sepsis Time Seen by Provider: 05/18/19 23:22 Source: EMS Mode of arrival: EMS Limitations: altered mental status - History of Present Illness Initial comments: Patient presents to the ED by ambulance from her halfway for evaluation. Per halfway report, the patient has a UTI, and she has developed altered mental status this evening. Patient arouses to painful and verbal stimulus, but she is quite somnolent, and she is not answering questions appropriately for me at this time. No other history is available at this time. - Related Data Home Medications Medication Instructions Recorded Confirmed Ipratropium-Albuterol Nebulize 3 ml INHALATION RT-BID 09/16/16 05/05/19 [Duoneb 0.5 mg-3 mg/3 ml Soln] Budesonide-Formot 160-4.5 Mcg 2 puff INHALATION RT-BID 10/05/16 05/05/19 [Symbicort 160-4.5 Mcg Inhaler] Cholecalciferol [Vitamin D3 (25 2,000 unit PO DAILY 07/18/17 05/05/19 Mcg = 1000 Iu)] Cyanocobalamin (Vitamin B-12) 1,000 mcg PO BID 07/18/17 05/05/19 [Vitamin B-12] Dapagliflozin Propanediol [Farxiga] 5 mg PO DAILY 07/18/17 05/05/19 Losartan [Cozaar] 50 mg PO QAM 07/18/17 05/05/19 Acetaminophen [Tylenol Extra 500 mg PO Q6HR PRN 07/20/17 05/05/19 Strength] Liraglutide [Victoza 2-Orlin] 1.8 mg SQ HS 12/26/18 05/05/19 Clopidogrel [Plavix] 75 mg PO DAILY 01/10/19 05/05/19 Furosemide [Lasix] 20 mg PO DAILY 01/10/19 05/05/19 OXcarbazepine [Trileptal] 300 mg PO BID 01/10/19 05/05/19 Rosuvastatin [Crestor] 20 mg PO HS 01/10/19 05/05/19 metFORMIN HCL [metFORMIN HCL ER] 750 mg PO BID 02/15/19 05/05/19 Previous Rx's Medication Instructions Recorded Montelukast [Singulair] 10 mg PO HS #30 tab 09/20/16 ALPRAZolam [Xanax] 0.25 mg PO HS #1 tab 05/12/19 Apixaban [Eliquis] 2.5 mg PO BID tablet 05/12/19 HYDROcodone/APAP 5-325MG [Orient 1 each PO Q6HR PRN #3 tab 05/12/19 5-325] INSULIN ASPART (NovoLOG) [NovoLOG 0 unit SQ ACHS vial 05/12/19 (formulary)] Pregabalin [Lyrica] 150 mg PO BID #2 cap 05/12/19 Allergies Allergy/AdvReac Type Severity Reaction Status Date / Time codeine AdvReac Nausea & Verified 05/18/19 23:25 Vomiting sitagliptin [From Janumet] AdvReac frequent Verified 05/18/19 23:25 UTI Review of Systems ROS Statement: Those systems with pertinent positive or pertinent negative responses have been documented in the HPI. ROS Other: All systems not noted in ROS Statement are negative. Limitations: ROS unobtainable due to patients medical condition Past Medical History Past Medical History: Heart Failure, Diabetes Mellitus, Myocardial Infarction (NM), COPD, Diabetes Mellitus, Myocardial Infarction (NM), Osteoarthritis (OA), Skin Disorder, Vascular Disorder Additional Past Medical History / Comment(s): Leg pain, Trigeminal Neuralgia, Diabetic Neuropathy, NM 1994, ROSCACEA Last Myocardial Infarction Date:: 1994 History of Any Multi-Drug Resistant Organisms: None Reported Past Surgical History: Appendectomy, Cholecystectomy, Heart Catheterization With Stent, Hysterectomy, Orthopedic Surgery, Pacemaker Additional Past Surgical History / Comment(s): Arthrectomy rt leg, Angioplasty, Pacemaker August 2016, left Foot Surgery, one heart stent Past Anesthesia/Blood Transfusion Reactions: No Reported Reaction Date of Last Stent Placement:: 1994 Type of Cardiac Device: Permanent Pacemaker Device Placement Date:: August 2016 Past Psychological History: No Psychological Hx Reported Smoking Status: Former smoker - Past Family History Father Family Medical History: Myocardial Infarction (NM) Mother Family Medical History: Congestive Heart Failure (CHF), CVA/TIA, Diabetes Mellitus General Exam Limitations: altered mental status General appearance: other (Patient is somnolent but arousable with verbal and painful stimulus) Head exam: Present: atraumatic, normocephalic Eye exam: Present: normal appearance, PERRL ENT exam: Present: mucous membranes moist Neck exam: Present: other (Trachea is in midline). Absent: tenderness, meningismus Respiratory exam: Present: prolonged expiratory (Moderate respiratory distress, bilateral inspiratory in expiratory wheezes, bibasilar rales), other (Moderate respiratory distress; inspiratory and expiratory wheezes bilaterally; bilateral rhonchi) Cardiovascular Exam: Present: regular rate, irregular rhythm, normal heart sounds, other (Normal radial pulses bilaterally) GI/Abdominal exam: Present: soft. Absent: tenderness, guarding Extremities exam: Present: other (Bilateral pedal edema) Neurological exam: Present: other (Patient is somnolent but arousable with verbal and painful stimulus; patient localizes to pain in all 4 extremities; patient is moving all 4 extremities spontaneously) Skin exam: Present: warm, dry, intact, normal color Course Vital Signs 05/18/19 05/18/19 05/18/19 23:17 23:30 23:45 Temperature 98.3 F 100.2 F H 100.1 F H Pulse Rate 86 85 87 Respiratory 22 22 23 Rate Blood Pressure 124/68 143/77 120/53 O2 Sat by Pulse 74 L 98 98 Oximetry 05/19/19 05/19/19 05/19/19 00:00 00:04 00:15 Temperature 100.2 F H 100.2 F H Pulse Rate 90 76 85 Respiratory 22 22 Rate Blood Pressure 105/60 106/54 O2 Sat by Pulse 98 98 Oximetry 05/19/19 05/19/19 00:21 01:04 Temperature 100.9 F H Pulse Rate 80 86 Respiratory 22 Rate Blood Pressure 126/74 O2 Sat by Pulse 98 Oximetry - Reevaluation(s) Reevaluation #1: 05/19/19 01:11 Patient now appears to be breathing more comfortably with better air movement and decreased wheezing on exam. Patient remained somnolent but arousable with painful and verbal stimulus. Will admit the patient to the hospital under care of Dr. Medina (hospitalist) at this time. EKG Findings - EKG Comments: EKG Findings:: Atrial flutter with variable AV block, ventricular rate of 83 bpm, normal QRS interval, normal QT interval, normal axis, inferior and anterolateral ST and T-wave abnormality, no significant change when compared to 05/04/2019 Medical Decision Making - Medical Decision Making I suspect that the patient's altered mental status and difficulty breathing are likely secondary to pneumonia, UTI, influenza A, COPD and sepsis. Patient's head CT is fairly unremarkable. Patient was placed on BiPAP ventilation for respiratory support given her COPD and pneumonia. Patient is hemodynamically stable, and she is not hypotensive or tachycardic. Patient was given DuoNeb treatments, IV Solu-Medrol and IV antibiotics in the ED. Patient was not given oral Tamiflu secondary to her altered mental status and risk for aspiration. Patient was admitted to the hospital under care of Dr. Medina (hospitalist). - Lab Data Result diagrams: 05/18/19 23:17 05/18/19 23:17 Lab Results 05/18/19 05/18/19 05/18/19 Range/Units 23:17 23:17 23:17 WBC 8.7 (3.8-10.6) k/uL RBC 3.36 L (3.80-5.40) m/uL Hgb 8.3 L (11.4-16.0) gm/dL Hct 27.5 L (34.0-46.0) % MCV 81.9 (80.0-100.0) fL MCH 24.6 L (25.0-35.0) pg MCHC 30.0 L (31.0-37.0) g/dL RDW 18.8 H (11.5-15.5) % Plt Count 223 (150-450) k/uL Neutrophils % 84 % Lymphocytes % 7 % Monocytes % 6 % Eosinophils % 0 % Basophils % 1 % Neutrophils # 7.3 (1.3-7.7) k/uL Lymphocytes # 0.6 L (1.0-4.8) k/uL Monocytes # 0.5 (0-1.0) k/uL Eosinophils # 0.0 (0-0.7) k/uL Basophils # 0.0 (0-0.2) k/uL Hypochromasia Marked Poikilocytosis Moderate Anisocytosis Slight Microcytosis Slight PT (9.0-12.0) sec INR (<1.2) APTT (22.0-30.0) sec Sample Site ABG pH (7.35-7.45) ABG pCO2 (35-45) mmHg ABG pO2 (83-108) mmHg ABG HCO3 (21-25) mmol/L ABG Total CO2 (19-24) mmol/L ABG O2 Saturation (94-97) % ABG Base Excess mmol/L [place] Test FiO2 % Sodium 135 L (137-145) mmol/L Potassium 4.3 (3.5-5.1) mmol/L Chloride 102 (98-107) mmol/L Carbon Dioxide 23 (22-30) mmol/L Anion Gap 10 mmol/L BUN 26 H (7-17) mg/dL Creatinine 0.90 (0.52-1.04) mg/dL Est GFR (CKD-EPI)AfAm 71 (>60 ml/min/1.73 sqM) Est GFR (CKD-EPI)NonAf 61 (>60 ml/min/1.73 sqM) Glucose 192 H (74-99) mg/dL Plasma Lactic Acid Naveen 3.2 H* (0.7-2.0) mmol/L Calcium 8.2 L (8.4-10.2) mg/dL Total Bilirubin 0.8 (0.2-1.3) mg/dL AST 43 H (14-36) U/L ALT 26 (4-34) U/L Alkaline Phosphatase 150 H (38-126) U/L Ammonia <9 (<30) umol/L Creatine Kinase 84 (30-135) U/L Troponin I (0.000-0.034) ng/mL NT-Pro-B Natriuret Pep pg/mL Total Protein 5.8 L (6.3-8.2) g/dL Albumin 3.3 L (3.5-5.0) g/dL Urine Color Urine Appearance (Clear) Urine pH (5.0-8.0) Ur Specific [place] (1.001-1.035) Urine Protein (Negative) Urine Glucose (UA) (Negative) Urine Ketones (Negative) Urine Blood (Negative) Urine Nitrite (Negative) Urine Bilirubin (Negative) Urine Urobilinogen (<2.0) mg/dL Ur Leukocyte Esterase (Negative) Urine RBC (0-5) /hpf Urine WBC (0-5) /hpf Urine WBC Clumps (None) /hpf Urine Bacteria (None) /hpf Urine Mucus (None) /hpf Urine Opiates Screen (NotDetected) Ur Oxycodone Screen (NotDetected) Urine Methadone Screen (NotDetected) Ur Propoxyphene Screen (NotDetected) Ur Barbiturates Screen (NotDetected) U Tricyclic Antidepress (NotDetected) Ur Phencyclidine Scrn (NotDetected) Ur Amphetamines Screen (NotDetected) U Methamphetamines Scrn (NotDetected) U Benzodiazepines Scrn (NotDetected) Urine Cocaine Screen (NotDetected) U Marijuana (THC) Screen (NotDetected) Serum Alcohol <10 mg/dL Influenza Type A RNA (Not Detectd) Influenza Type B (PCR) (Not Detectd) 05/18/19 05/18/19 05/18/19 Range/Units 23:17 23:17 23:17 WBC (3.8-10.6) k/uL RBC (3.80-5.40) m/uL Hgb (11.4-16.0) gm/dL Hct (34.0-46.0) % MCV (80.0-100.0) fL MCH (25.0-35.0) pg MCHC (31.0-37.0) g/dL RDW (11.5-15.5) % Plt Count (150-450) k/uL Neutrophils % % Lymphocytes % % Monocytes % % Eosinophils % % Basophils % % Neutrophils # (1.3-7.7) k/uL Lymphocytes # (1.0-4.8) k/uL Monocytes # (0-1.0) k/uL Eosinophils # (0-0.7) k/uL Basophils # (0-0.2) k/uL Hypochromasia Poikilocytosis Anisocytosis Microcytosis PT 12.6 H (9.0-12.0) sec INR 1.3 H (<1.2) APTT 22.7 (22.0-30.0) sec Sample Site ABG pH (7.35-7.45) ABG pCO2 (35-45) mmHg ABG pO2 (83-108) mmHg ABG HCO3 (21-25) mmol/L ABG Total CO2 (19-24) mmol/L ABG O2 Saturation (94-97) % ABG Base Excess mmol/L [place] Test FiO2 % Sodium (137-145) mmol/L Potassium (3.5-5.1) mmol/L Chloride (98-107) mmol/L Carbon Dioxide (22-30) mmol/L Anion Gap mmol/L BUN (7-17) mg/dL Creatinine (0.52-1.04) mg/dL Est GFR (CKD-EPI)AfAm (>60 ml/min/1.73 sqM) Est GFR (CKD-EPI)NonAf (>60 ml/min/1.73 sqM) Glucose (74-99) mg/dL Plasma Lactic Acid Naveen (0.7-2.0) mmol/L Calcium (8.4-10.2) mg/dL Total Bilirubin (0.2-1.3) mg/dL AST (14-36) U/L ALT (4-34) U/L Alkaline Phosphatase (38-126) U/L Ammonia (<30) umol/L Creatine Kinase (30-135) U/L Troponin I <0.012 (0.000-0.034) ng/mL NT-Pro-B Natriuret Pep 1360 pg/mL Total Protein (6.3-8.2) g/dL Albumin (3.5-5.0) g/dL Urine Color Urine Appearance (Clear) Urine pH (5.0-8.0) Ur Specific [place] (1.001-1.035) Urine Protein (Negative) Urine Glucose (UA) (Negative) Urine Ketones (Negative) Urine Blood (Negative) Urine Nitrite (Negative) Urine Bilirubin (Negative) Urine Urobilinogen (<2.0) mg/dL Ur Leukocyte Esterase (Negative) Urine RBC (0-5) /hpf Urine WBC (0-5) /hpf Urine WBC Clumps (None) /hpf Urine Bacteria (None) /hpf Urine Mucus (None) /hpf Urine Opiates Screen (NotDetected) Ur Oxycodone Screen (NotDetected) Urine Methadone Screen (NotDetected) Ur Propoxyphene Screen (NotDetected) Ur Barbiturates Screen (NotDetected) U Tricyclic Antidepress (NotDetected) Ur Phencyclidine Scrn (NotDetected) Ur Amphetamines Screen (NotDetected) U Methamphetamines Scrn (NotDetected) U Benzodiazepines Scrn (NotDetected) Urine Cocaine Screen (NotDetected) U Marijuana (THC) Screen (NotDetected) Serum Alcohol mg/dL Influenza Type A RNA (Not Detectd) Influenza Type B (PCR) (Not Detectd) 05/18/19 05/18/19 05/18/19 Range/Units 23:35 23:35 23:35 WBC (3.8-10.6) k/uL RBC (3.80-5.40) m/uL Hgb (11.4-16.0) gm/dL Hct (34.0-46.0) % MCV (80.0-100.0) fL MCH (25.0-35.0) pg MCHC (31.0-37.0) g/dL RDW (11.5-15.5) % Plt Count (150-450) k/uL Neutrophils % % Lymphocytes % % Monocytes % % Eosinophils % % Basophils % % Neutrophils # (1.3-7.7) k/uL Lymphocytes # (1.0-4.8) k/uL Monocytes # (0-1.0) k/uL Eosinophils # (0-0.7) k/uL Basophils # (0-0.2) k/uL Hypochromasia Poikilocytosis Anisocytosis Microcytosis PT (9.0-12.0) sec INR (<1.2) APTT (22.0-30.0) sec Sample Site ABG pH (7.35-7.45) ABG pCO2 (35-45) mmHg ABG pO2 (83-108) mmHg ABG HCO3 (21-25) mmol/L ABG Total CO2 (19-24) mmol/L ABG O2 Saturation (94-97) % ABG Base Excess mmol/L [place] Test FiO2 % Sodium (137-145) mmol/L Potassium (3.5-5.1) mmol/L Chloride (98-107) mmol/L Carbon Dioxide (22-30) mmol/L Anion Gap mmol/L BUN (7-17) mg/dL Creatinine (0.52-1.04) mg/dL Est GFR (CKD-EPI)AfAm (>60 ml/min/1.73 sqM) Est GFR (CKD-EPI)NonAf (>60 ml/min/1.73 sqM) Glucose (74-99) mg/dL Plasma Lactic Acid Naveen (0.7-2.0) mmol/L Calcium (8.4-10.2) mg/dL Total Bilirubin (0.2-1.3) mg/dL AST (14-36) U/L ALT (4-34) U/L Alkaline Phosphatase (38-126) U/L Ammonia (<30) umol/L Creatine Kinase (30-135) U/L Troponin I (0.000-0.034) ng/mL NT-Pro-B Natriuret Pep pg/mL Total Protein (6.3-8.2) g/dL Albumin (3.5-5.0) g/dL Urine Color Yellow Urine Appearance Cloudy H (Clear) Urine pH 5.5 (5.0-8.0) Ur Specific [place] 1.020 (1.001-1.035) Urine Protein 1+ H (Negative) Urine Glucose (UA) 1+ H (Negative) Urine Ketones Negative (Negative) Urine Blood Trace H (Negative) Urine Nitrite Negative (Negative) Urine Bilirubin Negative (Negative) Urine Urobilinogen <2.0 (<2.0) mg/dL Ur Leukocyte Esterase Large H (Negative) Urine RBC 3 (0-5) /hpf Urine WBC >182 H (0-5) /hpf Urine WBC Clumps Few H (None) /hpf Urine Bacteria Rare H (None) /hpf Urine Mucus Rare H (None) /hpf Urine Opiates Screen Detected H (NotDetected) Ur Oxycodone Screen Not Detected (NotDetected) Urine Methadone Screen Not Detected (NotDetected) Ur Propoxyphene Screen Not Detected (NotDetected) Ur Barbiturates Screen Not Detected (NotDetected) U Tricyclic Antidepress Not Detected (NotDetected) Ur Phencyclidine Scrn Not Detected (NotDetected) Ur Amphetamines Screen Not Detected (NotDetected) U Methamphetamines Scrn Not Detected (NotDetected) U Benzodiazepines Scrn Not Detected (NotDetected) Urine Cocaine Screen Not Detected (NotDetected) U Marijuana (THC) Screen Not Detected (NotDetected) Serum Alcohol mg/dL Influenza Type A RNA Detected H (Not Detectd) Influenza Type B (PCR) Not Detected (Not Detectd) 05/18/19 Range/Units 23:50 WBC (3.8-10.6) k/uL RBC (3.80-5.40) m/uL Hgb (11.4-16.0) gm/dL Hct (34.0-46.0) % MCV (80.0-100.0) fL MCH (25.0-35.0) pg MCHC (31.0-37.0) g/dL RDW (11.5-15.5) % Plt Count (150-450) k/uL Neutrophils % % Lymphocytes % % Monocytes % % Eosinophils % % Basophils % % Neutrophils # (1.3-7.7) k/uL Lymphocytes # (1.0-4.8) k/uL Monocytes # (0-1.0) k/uL Eosinophils # (0-0.7) k/uL Basophils # (0-0.2) k/uL Hypochromasia Poikilocytosis Anisocytosis Microcytosis PT (9.0-12.0) sec INR (<1.2) APTT (22.0-30.0) sec Sample Site Right Radial ABG pH 7.49 H (7.35-7.45) ABG pCO2 33 L (35-45) mmHg ABG pO2 132 H (83-108) mmHg ABG HCO3 25 (21-25) mmol/L ABG Total CO2 26 H (19-24) mmol/L ABG O2 Saturation 99.9 H (94-97) % ABG Base Excess 1.8 mmol/L [place] Test Yes FiO2 100 % Sodium (137-145) mmol/L Potassium (3.5-5.1) mmol/L Chloride (98-107) mmol/L Carbon Dioxide (22-30) mmol/L Anion Gap mmol/L BUN (7-17) mg/dL Creatinine (0.52-1.04) mg/dL Est GFR (CKD-EPI)AfAm (>60 ml/min/1.73 sqM) Est GFR (CKD-EPI)NonAf (>60 ml/min/1.73 sqM) Glucose (74-99) mg/dL Plasma Lactic Acid Naveen (0.7-2.0) mmol/L Calcium (8.4-10.2) mg/dL Total Bilirubin (0.2-1.3) mg/dL AST (14-36) U/L ALT (4-34) U/L Alkaline Phosphatase (38-126) U/L Ammonia (<30) umol/L Creatine Kinase (30-135) U/L Troponin I (0.000-0.034) ng/mL NT-Pro-B Natriuret Pep pg/mL Total Protein (6.3-8.2) g/dL Albumin (3.5-5.0) g/dL Urine Color Urine Appearance (Clear) Urine pH (5.0-8.0) Ur Specific [place] (1.001-1.035) Urine Protein (Negative) Urine Glucose (UA) (Negative) Urine Ketones (Negative) Urine Blood (Negative) Urine Nitrite (Negative) Urine Bilirubin (Negative) Urine Urobilinogen (<2.0) mg/dL Ur Leukocyte Esterase (Negative) Urine RBC (0-5) /hpf Urine WBC (0-5) /hpf Urine WBC Clumps (None) /hpf Urine Bacteria (None) /hpf Urine Mucus (None) /hpf Urine Opiates Screen (NotDetected) Ur Oxycodone Screen (NotDetected) Urine Methadone Screen (NotDetected) Ur Propoxyphene Screen (NotDetected) Ur Barbiturates Screen (NotDetected) U Tricyclic Antidepress (NotDetected) Ur Phencyclidine Scrn (NotDetected) Ur Amphetamines Screen (NotDetected) U Methamphetamines Scrn (NotDetected) U Benzodiazepines Scrn (NotDetected) Urine Cocaine Screen (NotDetected) U Marijuana (THC) Screen (NotDetected) Serum Alcohol mg/dL Influenza Type A RNA (Not Detectd) Influenza Type B (PCR) (Not Detectd) - Radiology Data Radiology results: report reviewed (Noncontrast head CT shows no acute intracranial abnormality; chest x-ray shows new airspace pneumonia in the right lung, no obvious heart failure, probable underlying pulmonary fibrosis) Critical Care Time Critical Care Time: Yes (Hypoxia, COPD, pneumonia with sepsis, UTI) Total Critical Care Time: 70 Disposition Clinical Impression: Altered mental status, COPD (chronic obstructive pulmonary disease), Atrial flutter, UTI (urinary tract infection), Hypoxia, Influenza A, correction- acquired pneumonia Disposition: ADMITTED IP TO THIS HOSP Condition: Serious Is patient prescribed a controlled substance at d/c from ED?: No Referrals: He Giraldo MD [Primary Care Provider] - 1-2 days Time of Disposition: 01:04
[2019-05-19 00:16] LABS: Amphetamine Screen,Urine Not Detected (NotDetected); Barbiturate Screen,Urine Not Detected (NotDetected); Benzodiazepines Screen,Urine Not Detected (NotDetected); Cocaine Screen,Urine Not Detected (NotDetected); Methadone Screen, Urine Not Detected (NotDetected); Opiate Screen,Urine Detected (NotDetected); Oxycodone Screen, Urine Not Detected (NotDetected); Phencyclidine Screen,Urine Not Detected (NotDetected); Tricyclic Antidepressant,Urine Not Detected (NotDetected); Urn Cannabinoid Scrn Not Detected (NotDetected)
[2019-05-19] MEDS ORDERED: PIPERACILLIN-TAZOBACTAM 4.5 GM in SODIUM CHLORIDE 0.9% 100 ML IVPB STA (00:29)
[2019-05-19] MEDS ORDERED: VANCOMYCIN IV PER PHARMACY 1 EACH MISC MISCELLANE STA (00:30)
[2019-05-19] MEDS ORDERED: OSELTAMIVIR 75 MG CAP PO STA (00:31)
[2019-05-19] MEDS ORDERED: PIPERACILLIN-TAZOBACTAM 3.375 GM in SODIUM CHLORIDE 0.9% 100 ML IVPB ONE (00:36)
--- NOTE | 2019-05-19 00:51 | CT ---
EXAMINATION TYPE: CT brain wo con DATE OF EXAM: 05/19/2019 COMPARISON: 05/06/2019 HISTORY: Patient presents with AMS. CT DLP: 1094.4 mGycm Automated exposure control for dose reduction was used. Multiple axial sections were obtained of the brain without contrast. There is cerebral cortical atrophy. There is no mass effect nor midline shift. There is no sign of in tracranial hemorrhage. There is some patchy white matter hypodensity. The calvarium is intact. IMPRESSION: Cerebral atrophy and chronic small vessel ischemia. No acute intracranial abnormality. No change.
--- NOTE | 2019-05-19 00:54 | XR ---
EXAMINATION TYPE: XR chest 2V DATE OF EXAM: 05/19/2019 COMPARISON: 05/08/2019 HISTORY: Altered mental status TECHNIQUE: FINDINGS: There is airspace consolidation in the right middle lobe and also the posterior segment of the right upper lobe. There is coarse interstitial infiltrate throughout the lower lung lindo. There is a left axillary pacemaker. There is no heart failure. There is mild blunting of the costophrenic angles. IMPRESSION: There is new airspace pneumonia in the right lung as above compared to old exam. No obvio us heart failure. There is underlying probable pulmonary fibrosis.
[2019-05-19] MEDS ORDERED: SODIUM CHLORIDE 0.9% 500 ML 500 ML IV ONE (00:55)
[2019-05-19] MEDS ORDERED: AZITHROMYCIN 500 MG in SODIUM CHLORIDE 0.9% 250 ML IVPB ONE (01:00)
[2019-05-19] MEDS ORDERED: MORPHINE SULFATE 4 MG/ML SYRINGE IVP STA (01:30)
[2019-05-19] MEDS: ALBUTEROL NEBULIZED 2.5 MG/3 ML INHALATION SCH ×5 (01:38→16:28)
[2019-05-19] MEDS: SODIUM CHLORIDE 0.9% 1,000 ML IV SCH ×3 (01:40→21:03)
[2019-05-19] MEDS ORDERED: VANCOMYCIN 1,500 MG in SODIUM CHLORIDE 0.9% 250 ML IVPB ONE (02:00)
[2019-05-19] MEDS: INSULIN ASPART (NovoLOG) 100 UNIT/ML VIAL SQ SCH ×4 (06:19→21:03)
[2019-05-19 06:22] LABS: Glucose,Whole Blood 320 mg/dL (75-99)
[2019-05-19 06:54] LABS: Anisocytosis Slight; HCT 26.1 % (34.0-46.0); HGB 7.6 gm/dL (11.4-16.0); Hypochromasia Marked; Mean Platelet Volume 9.2; Microcytosis Slight; Platelet Count 220 k/uL (150-450); Poikilocytosis Moderate; RBC 3.14 m/uL (3.80-5.40); WBC 6.7 k/uL (3.8-10.6)
[2019-05-19 07:09] LABS: Calcium 7.7 mg/dL (8.4-10.2); Potassium 4.3 mmol/L (3.5-5.1)
[2019-05-19] MEDS ORDERED: PREGABALIN 75 MG CAP PO SCH (08:00)
[2019-05-19] MEDS: CLOPIDOGREL 75 MG TAB PO SCH (09:16)
[2019-05-19] MEDS: APIXABAN 2.5 MG TABLET PO SCH ×2 (09:16→21:03)
[2019-05-19] MEDS: Dapagliflozin Propanediol [Farxiga] PO SCH (09:43)
[2019-05-19] MEDS: OXcarbazepine 300 MG TAB PO SCH ×2 (09:45→21:03)
[2019-05-19] MEDS: PREGABALIN 75 MG CAP PO SCH ×2 (09:45→21:02)
[2019-05-19] MEDS: FUROSEMIDE 20 MG TAB PO SCH (09:45)
[2019-05-19] MEDS: metFORMIN 500 MG TAB PO SCH ×2 (09:46→17:42)
[2019-05-19] MEDS: CYANOCOBALAMIN 500 MCG TAB PO SCH ×2 (09:46→21:03)
[2019-05-19] MEDS: CHOLECALCIFEROL 1,000 UNIT TAB PO SCH (09:46)
[2019-05-19] MEDS ORDERED: APIXABAN 2.5 MG TABLET PO SCH (10:24)
[2019-05-19] MEDS ORDERED: BISACODYL 10 MG SUPP RECTAL PRN (10:24)
[2019-05-19] MEDS ORDERED: NA PHOS,M-B/NA PHOS,DI-BA 133 ML ENEMA RECTAL PRN (10:24)
[2019-05-19] MEDS ORDERED: MAGNESIUM HYDROXIDE 2,400 MG/10 ML CUP PO PRN (10:24)
[2019-05-19] MEDS ORDERED: NON FORMULARY DRUG (Liquacel 30 ML) PO SCH (10:30)
[2019-05-19] MEDS: DONEPEZIL 5 MG TAB PO SCH (10:42)
[2019-05-19] MEDS: HYDROcodone/APAP 5-325MG 1 EACH TAB PO PRN (11:42)
[2019-05-19 12:12] LABS: Hemoglobin A1C 7.6 % (4.0-6.0)
[2019-05-19 12:47] LABS: Glucose,Whole Blood 294 mg/dL (75-99)
--- NOTE | 2019-05-19 16:55 | P.HPIM ---
History of Present Illness H&P Date: 05/19/19 Chief Complaint: Increased confusion History of presenting complaint: This is a 79-year-old patient of Dr. Giraldo. Chronic stable medical conditions include coronary artery disease with stent, osteoarthritis, diabetic peripheral neuropathy, rosacea, atrial fibrillation on eliquis. Patient long-standing smoker. Patient has chronic wounds on the toes of the left foot. Known significant peripheral arterial disease. She does follow at the wound care center. Was followed by Dr. Rose from podiatry. Patient was brought in from [facility]. Dr. Cope history of the bedside. Daughter did visit her yesterday. Patient has been using a walker. Looked okay yesterday. Patient in the evening patient became congested with a cough pulse ox to draw down to 70s. Patient's been having some chills. Patient more confused than baseline. Hence was sent in. UA was found to be infected appearing. Patient herself was not able to give much history. Patient's pulse ox in the ER was 74%. Was put on a nonrebreather . Review of systems: Could not be obtained as patient rather confused. Past medical history to include: COPD, for ulcers on the left side, peripheral artery disease, atrial fibrillation, coronary artery disease with stent, or strength redness, diabetic peripheral neuropathy, Social history: Patient being smoking over 65 years, though down to a few cigarettes a day. At [facility] Physical examination: VITAL SIGNS: 100.2, 85, 22, 143/77, 74% on room air GENERAL: BMI 24.2, laying in bed short of breath at the Ventimask, congested cough EYES: Pupils equal. Conjunctiva normal. HEENT: External appearance of nose and ears normal, oral cavity dry NECK: JVD not raised; masses not palpable. HEART: Irregular heart sounds, minimal edema. LUNGS: Respiratory rate increased, diminished breath sounds coarse breath sound ABDOMEN: Soft, nontender, liver spleen not palpable, no masses palpable. PSYCH: Unable to assess NEUROLOGICAL: Cranial nerves grossly intact; no facial asymmetry, LYMPHATICS: No lymph nodes palpable in the axilla and neck EXTREMITY: Noted dry gangrenous changes of the left small toe and ischemic changes in the other toes, especially the second toe INVESTIGATIONS, reviewed in the clinical context: White count 8.7 hemoglobin 8.3 platelets is 223 potassium 4.3 creatinine 0.90 Lactic acid 3.2 troponin I less than 0.012 proBNP 1360 Urine drug screen positive for opiates Influenza type A RNA-detected UA positive EKG tracing personally reviewed by me-atrial flutter rate controlled Chest x-ray film personally reviewed by me-multilobar infiltrate on the right side. Assessment: -Acute multilobar pneumonia, secondary to pneumonia appetite is from type A influenza including possible secondary suspect gram-negative organism, POA -Acute toxic encephalopathy, multifactorial, improved -Acute hypoxic respiratory failure, requiring Ventimask, secondary to pneumonia, POA -Acute sepsis from pneumonia, POA -Persistent atrial flutter chronically on eliquis -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 secondary to peripheral arterial disease -Chronic nicotine dependence patient active cigarette smoker -Persistent atrial fibrillation chronically on eliquis -Coronary artery disease a prior history of stent -Primary osteoarthritis -Diabetic peripheral neuropathy -Severe peripheral arterial disease -Cognitive impairment -Chronic kidney dysfunction uses a walker Plan: Patient is due to started on Tamiflu, IV Zosyn. Add 2 units every 4 hours. Steroids. Follow Accu-Cheks. Oxygen supplementation. Other medications to continue. Care was discussed with the daughter the bedside. Prognosis guarded. Past Medical History Past Medical History: Heart Failure, COPD, Diabetes Mellitus, Diabetes Mellitus, Myocardial Infarction (NH), Myocardial Infarction (NH), Osteoarthritis (OA), Respiratory Disorder, Skin Disorder, Vascular Disorder Additional Past Medical History / Comment(s): Leg pain, Trigeminal Neuralgia, Diabetic Neuropathy, NH 1994, ROSCACEA; Hypoxic Respiratory Failure; Raynauds; P VD; Anemia Last Myocardial Infarction Date:: 1994 History of Any Multi-Drug Resistant Organisms: None Reported Past Surgical History: Appendectomy, Cholecystectomy, Heart Catheterization With Stent, Hysterectomy, Orthopedic Surgery, Pacemaker Additional Past Surgical History / Comment(s): Arthrectomy rt leg, Angioplasty, Pacemaker August 2016, left Foot Surgery, one heart stent Past Anesthesia/Blood Transfusion Reactions: No Reported Reaction Date of Last Stent Placement:: 1994 Type of Cardiac Device: Permanent Pacemaker Device Placement Date:: August 2016 Past Psychological History: No Psychological Hx Reported Additional Psychological History / Comment(s): 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 No experience. No travel. No animal exposures Smoking Status: Former smoker Past Alcohol Use History: None Reported Additional Past Alcohol Use History / Comment(s): occassional cigarette - about 3 a day. Started smoking in 1953. Past Drug Use History: None Reported - Past Family History Father Family Medical History: Myocardial Infarction (NH) Mother Family Medical History: Congestive Heart Failure (CHF), CVA/TIA, Diabetes Mellitus Medications and Allergies Home Medications Medication Instructions Recorded Confirmed Type Ipratropium-Albuterol Nebulize 3 ml INHALATION RT-BID@0800,1700 09/16/16 05/19/19 History [Duoneb 0.5 mg-3 mg/3 ml Soln] Montelukast [Singulair] 10 mg PO HS #30 tab 09/20/16 05/19/19 Rx Budesonide-Formot 160-4.5 Mcg 2 puff INHALATION RT-BID@0800,1700 10/05/16 05/19/19 History [Symbicort 160-4.5 Mcg Inhaler] Cholecalciferol [Vitamin D3 (25 2,000 unit PO DAILY@169907/18/17 05/19/19 History Mcg = 1000 Iu)] Cyanocobalamin (Vitamin B-12) 1,000 mcg PO DAILY@1700 07/18/17 05/19/19 History [Vitamin B-12] Losartan [Cozaar] 50 mg PO DAILY@0800 07/18/17 05/19/19 History Acetaminophen [Tylenol Extra 500 mg PO Q6HR PRN 07/20/17 05/19/19 History Strength] Liraglutide [Victoza 2-Orlin] 1.8 mg SQ HS@209912/26/18 05/19/19 History Clopidogrel [Plavix] 75 mg PO DAILY@0800 01/10/19 05/19/19 History Furosemide [Lasix] 20 mg PO DAILY@0800 01/10/19 05/19/19 History OXcarbazepine [Trileptal] 300 mg PO BID@0800,1700 01/10/19 05/19/19 History Rosuvastatin [Crestor] 20 mg PO HS@209901/10/19 05/19/19 History metFORMIN HCL [metFORMIN HCL ER] 750 mg PO BID@0800,1700 02/15/19 05/19/19 History ALPRAZolam [Xanax] 0.25 mg PO HS #1 tab 05/12/19 05/19/19 Rx Acetaminophen Tab [Tylenol] 650 mg PO Q4H PRN 05/19/19 05/19/19 History Apixaban [Eliquis] 2.5 mg PO BID@0800,1700 05/19/19 05/19/19 History Bisacodyl [Dulcolax] 10 mg RECTAL DAILY PRN 05/19/19 05/19/19 History Cefuroxime Axetil [Ceftin] 500 mg PO BID@0800,2100 05/19/19 05/19/19 History Donepezil [Aricept] 5 mg PO DAILY@0800 05/19/19 05/19/19 History HYDROcodone/APAP 7.5-325MG [[place] 1 tab PO Q6H PRN 05/19/19 05/19/19 History 7.5-325] INSULIN ASPART (NovoLOG) [NovoLOG See Protocol SQ ACHS 05/19/19 05/19/19 History (formulary)] Liquacel 30 ml PO DAILY 05/19/19 05/19/19 History Magnesium Hydroxide [Milk of 2,400 mg PO DAILY PRN 05/19/19 05/19/19 History Magnesia] Na Phos,M-B/Na Phos,Di-Ba [Fleet 133 ml RECTAL DAILY PRN 05/19/19 05/19/19 History Adult] Pregabalin [Lyrica] 150 mg PO BID@0800,2100 05/19/19 05/19/19 History Allergies Allergy/AdvReac Type Severity Reaction Status Date / Time codeine AdvReac Nausea & Verified 05/19/19 09:44 Vomiting sitagliptin [From ] AdvReac frequent Verified 05/19/19 09:44 UTI Physical Exam Vitals: Vital Signs Temp Pulse Pulse Resp BP BP Pulse Ox 05/19/19 09:07 100 05/19/19 08:56 100 05/19/19 03:37 99.6 F 81 22 117/68 96 05/19/19 03:30 101 H 05/19/19 03:17 94 L 05/19/19 03:14 101 H 05/19/19 02:43 72 21 115/59 97 05/19/19 01:50 76 20 97 05/19/19 01:04 100.9 F H 86 22 126/74 98 05/19/19 00:21 80 05/19/19 00:15 100.2 F H 85 22 106/54 98 05/19/19 00:04 76 05/19/19 00:00 100.2 F H 90 22 105/60 98 05/18/19 23:45 100.1 F H 87 23 120/53 98 05/18/19 23:30 100.2 F H 85 22 143/77 98 05/18/19 23:17 98.3 F 86 22 124/68 74 L Intake and Output 05/18/19 05/19/19 05/19/19 22:59 06:59 14:59 Intake Total 350 Output Total 1000 Balance -650 Intake: Intake, IV Titration 350 Amount Sodium Chloride 0.9% 1, 100 000 ml @ 100 mls/hr IV . Q10H FRANTZ Rx#:[id number] Vancomycin 1,500 mg In 250 Sodium Chloride 0.9% 250 ml @ 125 mls/hr IVPB Q24H FRANTZ Rx#:[id number] Output: Urine 1000 Uretheral (Mathews) 1000 Other: Weight 66 kg Results CBC & Chem 7: 05/19/19 06:00 05/19/19 06:00 Labs: Abnormal Lab Results - Last 24 Hours (Table) 05/18/19 05/18/19 05/18/19 Range/Units 23:17 23:17 23:17 RBC 3.36 L (3.80-5.40) m/uL Hgb 8.3 L (11.4-16.0) gm/dL Hct 27.5 L (34.0-46.0) % MCH 24.6 L (25.0-35.0) pg MCHC 30.0 L (31.0-37.0) g/dL RDW 18.8 H (11.5-15.5) % Lymphocytes # 0.6 L (1.0-4.8) k/uL PT (9.0-12.0) sec INR (<1.2) ABG pH (7.35-7.45) ABG pCO2 (35-45) mmHg ABG pO2 (83-108) mmHg ABG Total CO2 (19-24) mmol/L ABG O2 Saturation (94-97) % Sodium 135 L (137-145) mmol/L BUN 26 H (7-17) mg/dL Glucose 192 H (74-99) mg/dL POC Glucose (mg/dL) (75-99) mg/dL Plasma Lactic Acid Naveen 3.2 H* (0.7-2.0) mmol/L Calcium 8.2 L (8.4-10.2) mg/dL AST 43 H (14-36) U/L Alkaline Phosphatase 150 H (38-126) U/L Total Protein 5.8 L (6.3-8.2) g/dL Albumin 3.3 L (3.5-5.0) g/dL Urine Appearance (Clear) Urine Protein (Negative) Urine Glucose (UA) (Negative) Urine Blood (Negative) Ur Leukocyte Esterase (Negative) Urine WBC (0-5) /hpf Urine WBC Clumps (None) /hpf Urine Bacteria (None) /hpf Urine Mucus (None) /hpf Urine Opiates Screen (NotDetected) Influenza Type A RNA (Not Detectd) 05/18/19 05/18/19 05/18/19 Range/Units 23:17 23:35 23:35 RBC (3.80-5.40) m/uL Hgb (11.4-16.0) gm/dL Hct (34.0-46.0) % MCH (25.0-35.0) pg MCHC (31.0-37.0) g/dL RDW (11.5-15.5) % Lymphocytes # (1.0-4.8) k/uL PT 12.6 H (9.0-12.0) sec INR 1.3 H (<1.2) ABG pH (7.35-7.45) ABG pCO2 (35-45) mmHg ABG pO2 (83-108) mmHg ABG Total CO2 (19-24) mmol/L ABG O2 Saturation (94-97) % Sodium (137-145) mmol/L BUN (7-17) mg/dL Glucose (74-99) mg/dL POC Glucose (mg/dL) (75-99) mg/dL Plasma Lactic Acid Naveen (0.7-2.0) mmol/L Calcium (8.4-10.2) mg/dL AST (14-36) U/L Alkaline Phosphatase (38-126) U/L Total Protein (6.3-8.2) g/dL Albumin (3.5-5.0) g/dL Urine Appearance Cloudy H (Clear) Urine Protein 1+ H (Negative) Urine Glucose (UA) 1+ H (Negative) Urine Blood Trace H (Negative) Ur Leukocyte Esterase Large H (Negative) Urine WBC >182 H (0-5) /hpf Urine WBC Clumps Few H (None) /hpf Urine Bacteria Rare H (None) /hpf Urine Mucus Rare H (None) /hpf Urine Opiates Screen Detected H (NotDetected) Influenza Type A RNA (Not Detectd) 05/18/19 05/18/19 05/19/19 Range/Units 23:35 23:50 06:00 RBC 3.14 L (3.80-5.40) m/uL Hgb 7.6 L (11.4-16.0) gm/dL Hct 26.1 L (34.0-46.0) % MCH 24.0 L (25.0-35.0) pg MCHC 29.0 L (31.0-37.0) g/dL RDW 19.0 H (11.5-15.5) % Lymphocytes # (1.0-4.8) k/uL PT (9.0-12.0) sec INR (<1.2) ABG pH 7.49 H (7.35-7.45) ABG pCO2 33 L (35-45) mmHg ABG pO2 132 H (83-108) mmHg ABG Total CO2 26 H (19-24) mmol/L ABG O2 Saturation 99.9 H (94-97) % Sodium (137-145) mmol/L BUN (7-17) mg/dL Glucose (74-99) mg/dL POC Glucose (mg/dL) (75-99) mg/dL Plasma Lactic Acid Naveen (0.7-2.0) mmol/L Calcium (8.4-10.2) mg/dL AST (14-36) U/L Alkaline Phosphatase (38-126) U/L Total Protein (6.3-8.2) g/dL Albumin (3.5-5.0) g/dL Urine Appearance (Clear) Urine Protein (Negative) Urine Glucose (UA) (Negative) Urine Blood (Negative) Ur Leukocyte Esterase (Negative) Urine WBC (0-5) /hpf Urine WBC Clumps (None) /hpf Urine Bacteria (None) /hpf Urine Mucus (None) /hpf Urine Opiates Screen (NotDetected) Influenza Type A RNA Detected H (Not Detectd) 05/19/19 05/19/19 Range/Units 06:00 06:11 RBC (3.80-5.40) m/uL Hgb (11.4-16.0) gm/dL Hct (34.0-46.0) % MCH (25.0-35.0) pg MCHC (31.0-37.0) g/dL RDW (11.5-15.5) % Lymphocytes # (1.0-4.8) k/uL PT (9.0-12.0) sec INR (<1.2) ABG pH (7.35-7.45) ABG pCO2 (35-45) mmHg ABG pO2 (83-108) mmHg ABG Total CO2 (19-24) mmol/L ABG O2 Saturation (94-97) % Sodium (137-145) mmol/L BUN 25 H (7-17) mg/dL Glucose 260 H (74-99) mg/dL POC Glucose (mg/dL) 320 H (75-99) mg/dL Plasma Lactic Acid Naveen (0.7-2.0) mmol/L Calcium 7.7 L (8.4-10.2) mg/dL AST (14-36) U/L Alkaline Phosphatase (38-126) U/L Total Protein (6.3-8.2) g/dL Albumin (3.5-5.0) g/dL Urine Appearance (Clear) Urine Protein (Negative) Urine Glucose (UA) (Negative) Urine Blood (Negative) Ur Leukocyte Esterase (Negative) Urine WBC (0-5) /hpf Urine WBC Clumps (None) /hpf Urine Bacteria (None) /hpf Urine Mucus (None) /hpf Urine Opiates Screen (NotDetected) Influenza Type A RNA (Not Detectd) Microbiology - Last 24 Hours (Table) 05/18/19 23:35 Urine Culture - Preliminary Urine,Voided Thrombosis Risk Factor Assmnt - Choose All That Apply Any of the Below Risk Factors Present?: Yes Each Factor Represents 1 point: Abnormal pulmonary function (COPD), Obesity (BMI >25), Swollen legs (current) Other Risk Factors: Yes Each Risk Factor Represents 3 Points: Age 75 years or older Other congenital or acquired thrombophilia - If yes, enter type in comment: No Thrombosis Risk Factor Assessment Total Risk Factor Score: 6 Thrombosis Risk Factor Assessment Level: High Risk
[2019-05-19] MEDS: IPRATROPIUM-ALBUTEROL 3 ML NEB INHALATION SCH ×2 (17:09→19:57)
[2019-05-19] MEDS: methylPREDNISolone SOD SUCCI 40 MG/ML 1 ML VIAL IV SCH (17:41)
[2019-05-19] MEDS: PIPERACILLIN-TAZOBACTAM 3.375 GM in SODIUM CHLORIDE 0.9% 100 ML IVPB SCH (17:41)
[2019-05-19 17:48] LABS: Glucose,Whole Blood 213 mg/dL (75-99)
[2019-05-19] MEDS: SYMBICORT 160-4.5 MCG INHALER INHALATION SCH (19:57)
[2019-05-19] MEDS ORDERED: IPRATROPIUM-ALBUTEROL 3 ML NEB INHALATION SCH (20:00)
[2019-05-19 20:18] LABS: Glucose,Whole Blood 179 mg/dL (75-99)
[2019-05-19] MEDS: ALPRAZolam 0.25 MG TAB PO SCH (21:02)
[2019-05-19] MEDS: ATORVASTATIN 40 MG TAB PO SCH (21:03)
[2019-05-19] MEDS: MONTELUKAST 10 MG TAB PO SCH (21:03)
[2019-05-20] MEDS: PIPERACILLIN-TAZOBACTAM 3.375 GM in SODIUM CHLORIDE 0.9% 100 ML IVPB SCH ×4 (00:49→23:29)
[2019-05-20] MEDS: methylPREDNISolone SOD SUCCI 40 MG/ML 1 ML VIAL IV SCH ×4 (00:49→23:29)
[2019-05-20] MEDS: IPRATROPIUM-ALBUTEROL 3 ML NEB INHALATION SCH ×6 (00:50→21:08)
[2019-05-20] MEDS ORDERED: VANCOMYCIN 1,500 MG in SODIUM CHLORIDE 0.9% 250 ML IVPB SCH (03:00)
[2019-05-20] MEDS ORDERED: VANCOMYCIN 1,250 MG in SODIUM CHLORIDE 0.9% 250 ML IVPB SCH (06:00)
[2019-05-20 06:14] LABS: Anisocytosis Slight; HCT 26.3 % (34.0-46.0); HGB 7.6 gm/dL (11.4-16.0); Hypochromasia Marked; MCHC 28.9 g/dL (31.0-37.0); MCV 82.9 fL (80.0-100.0); Mean Platelet Volume 8.9; Microcytosis Slight; Platelet Count 228 k/uL (150-450); Poikilocytosis Moderate; RBC 3.17 m/uL (3.80-5.40); RDW 18.8 % (11.5-15.5)
[2019-05-20 06:21] LABS: Glucose,Whole Blood 238 mg/dL (75-99)
[2019-05-20 06:27] LABS: Calcium 8.3 mg/dL (8.4-10.2); Potassium 4.5 mmol/L (3.5-5.1)
[2019-05-20] MEDS: metFORMIN 500 MG TAB PO SCH ×2 (06:37→17:24)
[2019-05-20] MEDS: INSULIN ASPART (NovoLOG) 100 UNIT/ML VIAL SQ SCH ×4 (06:39→22:02)
[2019-05-20] MEDS: SODIUM CHLORIDE 0.9% 1,000 ML IV SCH ×2 (06:42→17:18)
[2019-05-20] MEDS: SYMBICORT 160-4.5 MCG INHALER INHALATION SCH ×2 (08:54→21:08)
[2019-05-20] MEDS: Dapagliflozin Propanediol [Farxiga] PO SCH (09:17)
[2019-05-20] MEDS: DONEPEZIL 5 MG TAB PO SCH (09:31)
[2019-05-20] MEDS: CHOLECALCIFEROL 1,000 UNIT TAB PO SCH (09:32)
[2019-05-20] MEDS: CYANOCOBALAMIN 500 MCG TAB PO SCH ×2 (09:32→22:01)
[2019-05-20] MEDS: APIXABAN 2.5 MG TABLET PO SCH ×2 (09:32→22:01)
[2019-05-20] MEDS: FUROSEMIDE 20 MG TAB PO SCH ×2 (09:32→16:23)
[2019-05-20] MEDS: LOSARTAN 50 MG TAB PO SCH (09:32)
[2019-05-20] MEDS: CLOPIDOGREL 75 MG TAB PO SCH (09:32)
[2019-05-20] MEDS: OXcarbazepine 300 MG TAB PO SCH ×2 (09:32→22:11)
[2019-05-20] MEDS: PREGABALIN 75 MG CAP PO SCH ×2 (09:33→22:02)
--- NOTE | 2019-05-20 10:56 | P.CNPUL ---
History of Present Illness Consult date: 05/20/19 Reason for consult: dyspnea, hypoxemia, pneumonia, abnormal CXR/CT Chief complaint: Altered mentation, fever History of present illness: 79-year-old white female patient of Dr. Giraldo, with known history of diabetes mellitus type 2 with diabetic neuropathy, COPD, former smoker, chronic congestive heart failure, chronic atrial fibrillation with previous pacemaker insertion, coronary artery disease with previous stenting, peripheral vascular disease with a chronic wound on her left lower extremity in her fourth and fifth digit with previous wound cultures positive for enterococcus faecalis, who was recently hospitalized for acute hypoxemic failure related to COPD, non-ST elevated myocardial infarction, mild fluid overload, GI bleed, and acute metabolic encephalopathy. Patient required intubation and mechanical ventilation, and patient was intubated on 05/04/2019 and successfully extubated on 05/05/2019. Patient was also found to be anemic during that admission and required transfusion with 2 units of packed red blood cells. She was also evaluated by vascular surgery in regards to the pain involving her chronic wound in her left fifth toe, and no vascular intervention was recommended patient was treated medically with antiplatelet agents. GI service did not recommend any endoscopic intervention during that admission and patient was treated medically with no recurrence of GI bleeding. Patient had clinically improved as she was discharged to subacute rehab on O2 2019. Note that the chest x-ray during that admission only showed small bilateral pleural effusions with adjacent atelectasis. On O2 2019 patient was brought into the emergency department per EMS for evaluation of altered mental status. Patient was also found to have a positive for urinary tract infection. She was somnolent, confused, but could not provide much history. Blood work showed normal white count 8.7, hemoglobin of 8.3, electrolytes were unremarkable, B1 is 26 creatinine 0.90, plasma lactic acid was elevated at 3.2, AST was 43, ALT was 26, alkaline phosphatase was 150, troponin was less than 0.012, ammonia level was less than 9, proBNP was elevated at 1360, urinalysis showed amount of glucose, greater than 182 of white blood cells. Influenza screen was positive for influenza A. Brain CT showed cerebral atrophy chronic small vessel ischemia but no acute intracranial abnormality, chest x-ray showed new airspace pneumonia in the right lung, in the right middle lobe and the posterior segment of the right upper lobe and coarse interstitial infiltrates throughout the lower lung lindo. Patient was started on a combination of Zosyn and vancomycin in addition to the Tamiflu. Blood gas showed a pO2 of 132, pCO2 of 33, and pH of 7.49, this was done on FiO2 of 100%, patient was placed on BiPAP support with pressures of 12 and 5, and current FiO2 is at 35%. Patient is on, but she is able to answer simple questions, she is oriented to person and place. Fever pattern has improved, she remains on empiric antibodies with Zosyn and vancomycin in addition to the Tamiflu, and were consulted in regards to the shortness of breath, influenza A infection, and right lung pneumonia Review of Systems All systems: negative Constitutional: Reports fever, Reports lethargy, Reports malaise, Reports weakness, Denies chills Eyes: denies blurred vision, denies pain Ears, nose, mouth and throat: Denies headache, Denies sore throat Cardiovascular: Denies chest pain, Denies shortness of breath Respiratory: Reports dyspnea, Reports respiratory infections, Denies cough Gastrointestinal: Denies abdominal pain, Denies diarrhea, Denies nausea, Denies vomiting Genitourinary: Denies dysuria, Denies hematuria Musculoskeletal: Denies myalgias Integumentary: Reports foot/leg ulcers, Reports wounds, Denies pruritus, Denies rash Neurological: Reports change in mentation, Denies numbness, Denies weakness Psychiatric: Denies anxiety, Denies depression Endocrine: Denies fatigue, Denies weight change Past Medical History Past Medical History: Heart Failure, COPD, Diabetes Mellitus, Diabetes Mellitus, Myocardial Infarction (AL), Myocardial Infarction (AL), Osteoarthritis (OA), Respiratory Disorder, Skin Disorder, Vascular Disorder Additional Past Medical History / Comment(s): Leg pain, Trigeminal Neuralgia, Diabetic Neuropathy, [place] 1994, ROSCACEA; Hypoxic Respiratory Failure; Raynauds; PVD; Anemia Last Myocardial Infarction Date:: 1994 History of Any Multi-Drug Resistant Organisms: None Reported Past Surgical History: Appendectomy, Cholecystectomy, Heart Catheterization With Stent, Hysterectomy, Orthopedic Surgery, Pacemaker Additional Past Surgical History / Comment(s): Arthrectomy rt leg, Angioplasty, Pacemaker August 2016, left Foot Surgery, one heart stent Past Anesthesia/Blood Transfusion Reactions: No Reported Reaction Date of Last Stent Placement:: 1994 Type of Cardiac Device: Permanent Pacemaker Device Placement Date:: August 2016 Past Psychological History: No Psychological Hx Reported Additional Psychological History / Comment(s): 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 No experience. No travel. No animal exposures Smoking Status: Former smoker Past Alcohol Use History: None Reported Additional Past Alcohol Use History / Comment(s): occassional cigarette - about 3 a day. Started smoking in 1953. Past Drug Use History: None Reported - Past Family History Father Family Medical History: Myocardial Infarction (AL) Mother Family Medical History: Congestive Heart Failure (CHF), CVA/TIA, Diabetes Mellitus Medications and Allergies Home Medications Medication Instructions Recorded Confirmed Type Ipratropium-Albuterol Nebulize 3 ml INHALATION RT-BID@0800,1700 09/16/16 05/19/19 History [Duoneb 0.5 mg-3 mg/3 ml Soln] Montelukast [Singulair] 10 mg PO HS #30 tab 09/20/16 05/19/19 Rx Budesonide-Formot 160-4.5 Mcg 2 puff INHALATION RT-BID@0800,1700 10/05/16 05/19/19 History [Symbicort 160-4.5 Mcg Inhaler] Cholecalciferol [Vitamin D3 (25 2,000 unit PO DAILY@1700 07/18/17 05/19/19 History Mcg = 1000 Iu)] Cyanocobalamin (Vitamin B-12) 1,000 mcg PO DAILY@1700 07/18/17 05/19/19 History [Vitamin B-12] Losartan [Cozaar] 50 mg PO DAILY@0800 07/18/17 05/19/19 History Acetaminophen [Tylenol Extra 500 mg PO Q6HR PRN 07/20/17 05/19/19 History Strength] Liraglutide [Victoza 2-Orlin] 1.8 mg SQ HS@209912/26/18 05/19/19 History Clopidogrel [Plavix] 75 mg PO DAILY@0800 01/10/19 05/19/19 History Furosemide [Lasix] 20 mg PO DAILY@0800 01/10/19 05/19/19 History OXcarbazepine [Trileptal] 300 mg PO BID@0800,1700 01/10/19 05/19/19 History Rosuvastatin [Crestor] 20 mg PO HS@209901/10/19 05/19/19 History metFORMIN HCL [metFORMIN HCL ER] 750 mg PO BID@0800,1700 02/15/19 05/19/19 History ALPRAZolam [Xanax] 0.25 mg PO HS #1 tab 05/12/19 05/19/19 Rx Acetaminophen Tab [Tylenol] 650 mg PO Q4H PRN 05/19/19 05/19/19 History Apixaban [Eliquis] 2.5 mg PO BID@0800,1700 05/19/19 05/19/19 History Bisacodyl [Dulcolax] 10 mg RECTAL DAILY PRN 05/19/19 05/19/19 History Cefuroxime Axetil [Ceftin] 500 mg PO BID@0800,209905/19/19 05/19/19 History Donepezil [Aricept] 5 mg PO DAILY@0800 05/19/19 05/19/19 History HYDROcodone/APAP 7.5-325MG [Bradley 1 tab PO Q6H PRN 05/19/19 05/19/19 History 7.5-325] INSULIN ASPART (NovoLOG) [NovoLOG See Protocol SQ ACHS 05/19/19 05/19/19 History (formulary)] Liquacel 30 ml PO DAILY 05/19/19 05/19/19 History Magnesium Hydroxide [Milk of 2,400 mg PO DAILY PRN 05/19/19 05/19/19 History Magnesia] Na Phos,M-B/Na Phos,Di-Ba [Fleet 133 ml RECTAL DAILY PRN 05/19/19 05/19/19 History Adult] Pregabalin [Lyrica] 150 mg PO BID@0800,209905/19/19 05/19/19 History Allergies Allergy/AdvReac Type Severity Reaction Status Date / Time codeine AdvReac Nausea & Verified 05/19/19 09:44 Vomiting sitagliptin [From ] AdvReac frequent Verified 05/19/19 09:44 UTI Physical Exam Vitals: Vital Signs Temp Pulse Pulse Resp BP Pulse Ox 05/20/19 08:00 97.7 F 76 25 H 164/70 94 L 05/20/19 07:35 100 05/20/19 07:25 96 05/20/19 04:28 99 05/20/19 04:00 99 02/25/20 03:54 61 25 H 134/80 100 05/20/19 01:03 101 H 05/20/19 00:50 101 H 05/20/19 00:00 94 18 113/70 98 05/19/19 20:10 101 H 22 05/19/19 20:00 98.8 F 69 21 141/82 93 L 05/19/19 19:57 100 22 05/19/19 16:38 101 H 18 05/19/19 16:28 100 18 05/19/19 15:37 98.1 F 74 22 131/71 99 05/19/19 12:10 96 05/19/19 12:00 98.1 F 70 22 140/70 99 Intake and Output 05/19/19 05/20/19 05/20/19 22:59 06:59 14:59 Output Total 700 Balance -700 Output: Urine 700 Other: Voiding Method Indwelling Catheter Indwelling Catheter Indwelling Catheter Weight 73 kg GENERAL EXAM: Lethargic, but arousable, able to answer some simple questions, oriented to person and place, 79-year-old female on BiPAP support with pressures of 12/5 and FiO2 of 35% comfortable in no apparent distress. HEAD: Normocephalic/atraumatic. EYES: Normal reaction of pupils, equal size. Conjunctiva pink, sclera white. NOSE: Clear with pink turbinates. THROAT: No erythema or exudates. NECK: No masses, no JVD, no thyroid enlargement, no adenopathy. CHEST: No chest wall deformity. Symmetrical expansion. LUNGS: Equal air entry with a few scattered wheezes, but no crackles CVS: Regular rate and rhythm, normal S1 and S2, no gallops, no murmurs, no rubs ABDOMEN: Soft, nontender. No hepatosplenomegaly, normal bowel sounds, no guarding or rigidity. EXTREMITIES: No clubbing, no edema, no cyanosis, 2+ pulses and upper and lower extremities. MUSCULOSKELETAL: Muscle strength and tone normal. SPINE: No scoliosis or deformity SKIN: No rashes. Chronic wound on her left foot fifth toe covered with a Band- Aid CENTRAL NERVOUS SYSTEM: Alert and oriented -2. No focal deficits, tone is normal in all 4 extremities. PSYCHIATRIC: Alert and oriented -2. Appropriate affect. Intact judgment and insight. Results - Laboratory Findings CBC and BMP: 05/20/19 05:53 05/20/19 05:53 ABG WBC 9.0 k/uL (3.8-10.6) 05/20/19 05:53 RBC 3.17 m/uL (3.80-5.40) L 05/20/19 05:53 Hgb 7.6 gm/dL (11.4-16.0) L 05/20/19 05:53 Hct 26.3 % (34.0-46.0) L 05/20/19 05:53 MCV 82.9 fL (80.0-100.0) 05/20/19 05:53 MCH 24.0 pg (25.0-35.0) L 05/20/19 05:53 MCHC 28.9 g/dL (31.0-37.0) L 05/20/19 05:53 RDW 18.8 % (11.5-15.5) H 05/20/19 05:53 Plt Count 228 k/uL (150-450) 05/20/19 05:53 Neutrophils % 84 % 05/18/19 23:17 Lymphocytes % 7 % 05/18/19 23:17 Monocytes % 6 % 05/18/19 23:17 Eosinophils % 0 % 05/18/19 23:17 Basophils % 1 % 05/18/19 23:17 Neutrophils # 7.3 k/uL (1.3-7.7) 05/18/19 23:17 Lymphocytes # 0.6 k/uL (1.0-4.8) L 05/18/19 23:17 Monocytes # 0.5 k/uL (0-1.0) 05/18/19 23:17 Eosinophils # 0.0 k/uL (0-0.7) 05/18/19 23:17 Basophils # 0.0 k/uL (0-0.2) 05/18/19 23:17 Hypochromasia Marked 05/20/19 05:53 Poikilocytosis Moderate 05/20/19 05:53 Anisocytosis Slight 05/20/19 05:53 Microcytosis Slight 05/20/19 05:53 PT 12.6 sec (9.0-12.0) H 05/18/19 23:17 INR 1.3 (<1.2) H 05/18/19 23:17 APTT 22.7 sec (22.0-30.0) 05/18/19 23:17 Sample Site Right Radial 05/18/19 23:50 ABG pH 7.49 (7.35-7.45) H 05/18/19 23:50 ABG pCO2 33 mmHg (35-45) L 05/18/19 23:50 ABG pO2 132 mmHg (83-108) H 05/18/19 23:50 ABG HCO3 25 mmol/L (21-25) 05/18/19 23:50 ABG Total CO2 26 mmol/L (19-24) H 05/18/19 23:50 ABG O2 Saturation 99.9 % (94-97) H 05/18/19 23:50 ABG Base Excess 1.8 mmol/L 05/18/19 23:50 Peewee Test Yes 05/18/19 23:50 FiO2 100 % 05/18/19 23:50 Sodium 136 mmol/L (137-145) L 05/20/19 05:53 Potassium 4.5 mmol/L (3.5-5.1) 05/20/19 05:53 Chloride 102 mmol/L (98-107) 05/20/19 05:53 Carbon Dioxide 25 mmol/L (22-30) 05/20/19 05:53 Anion Gap 9 mmol/L 05/20/19 05:53 BUN 29 mg/dL (7-17) H 05/20/19 05:53 Creatinine 0.88 mg/dL (0.52-1.04) 05/20/19 05:53 Est GFR (CKD-EPI)AfAm 73 (>60 ml/min/1.73 sqM) 05/20/19 05:53 Est GFR (CKD-EPI)NonAf 63 (>60 ml/min/1.73 sqM) 05/20/19 05:53 Glucose 199 mg/dL (74-99) H 05/20/19 05:53 POC Glucose (mg/dL) 238 mg/dL (75-99) H 05/20/19 06:19 POC Glu Patrol Man ID [place] 05/20/19 06:[address] Glu mg/dL 171 05/19/19 06:00 Hemoglobin A1c 7.6 % (4.0-6.0) H 05/19/19 06:00 Lactic Ac Sepsis Rflx Y 05/18/19 23:50 Plasma Lactic Acid Naveen 1.5 mmol/L (0.7-2.0) 05/19/19 03:29 Calcium 8.3 mg/dL (8.4-10.2) L 05/20/19 05:53 Total Bilirubin 0.8 mg/dL (0.2-1.3) 05/18/19 23:17 AST 43 U/L (14-36) H 05/18/19 23:17 ALT 26 U/L (4-34) 05/18/19 23:17 Alkaline Phosphatase 150 U/L (38-126) H 05/18/19 23:17 Ammonia <9 umol/L (<30) 05/18/19 23:17 Creatine Kinase 84 U/L (30-135) 05/18/19 23:17 Troponin I <0.012 ng/mL (0.000-0.034) 05/18/19 23:17 NT-Pro-B Natriuret Pep 1360 pg/mL 05/18/19 23:17 Total Protein 5.8 g/dL (6.3-8.2) L 05/18/19 23:17 Albumin 3.3 g/dL (3.5-5.0) L 05/18/19 23:17 Urine Color Yellow 05/18/19 23:35 Urine Appearance Cloudy (Clear) H 05/18/19 23:35 Urine pH 5.5 (5.0-8.0) 05/18/19 23:35 Ur Specific [place] 1.020 (1.001-1.035) 05/18/19 23:35 Urine Protein 1+ (Negative) H 05/18/19 23:35 Urine Glucose (UA) 1+ (Negative) H 05/18/19 23:35 Urine Ketones Negative (Negative) 05/18/19 23:35 Urine Blood Trace (Negative) H 05/18/19 23:35 Urine Nitrite Negative (Negative) 05/18/19 23:35 Urine Bilirubin Negative (Negative) 05/18/19 23:35 Urine Urobilinogen <2.0 mg/dL (<2.0) 05/18/19 23:35 Ur Leukocyte Esterase Large (Negative) H 05/18/19 23:35 Urine RBC 3 /hpf (0-5) 05/18/19 23:35 Urine WBC >182 /hpf (0-5) H 05/18/19 23:35 Urine WBC Clumps Few /hpf (None) H 05/18/19 23:35 Urine Bacteria Rare /hpf (None) H 05/18/19 23:35 Urine Mucus Rare /hpf (None) H 05/18/19 23:35 Urine Opiates Screen Detected (NotDetected) H 05/18/19 23:35 Ur Oxycodone Screen Not Detected (NotDetected) 05/18/19 23:35 Urine Methadone Screen Not Detected (NotDetected) 05/18/19 23:35 Ur Propoxyphene Screen Not Detected (NotDetected) 05/18/19 23:35 Ur Barbiturates Screen Not Detected (NotDetected) 05/18/19 23:35 U Tricyclic Antidepress Not Detected (NotDetected) 05/18/19 23:35 Ur Phencyclidine Scrn Not Detected (NotDetected) 05/18/19 23:35 Ur Amphetamines Screen Not Detected (NotDetected) 05/18/19 23:35 U Methamphetamines Scrn Not Detected (NotDetected) 05/18/19 23:35 U Benzodiazepines Scrn Not Detected (NotDetected) 05/18/19 23:35 Urine Cocaine Screen Not Detected (NotDetected) 05/18/19 23:35 U Marijuana (THC) Screen Not Detected (NotDetected) 05/18/19 23:35 Serum Alcohol <10 mg/dL 05/18/19 23:17 Influenza Type A RNA Detected (Not Detectd) H 05/18/19 23:35 Influenza Type B (PCR) Not Detected (Not Detectd) 05/18/19 23:35 PT/INR, D-dimer PT 12.6 sec (9.0-12.0) H 05/18/19 23:17 INR 1.3 (<1.2) H 05/18/19 23:17 Abnormal lab findings: Abnormal Labs 05/18/19 05/18/19 05/18/19 23:17 23:17 23:17 RBC 3.36 L Hgb 8.3 L Hct 27.5 L MCH 24.6 L MCHC 30.0 L RDW 18.8 H Lymphocytes # 0.6 L PT INR ABG pH ABG pCO2 ABG pO2 ABG Total CO2 ABG O2 Saturation Sodium 135 L BUN 26 H Glucose 192 H POC Glucose (mg/dL) Hemoglobin A1c Plasma Lactic Acid Naveen 3.2 H* Calcium 8.2 L AST 43 H Alkaline Phosphatase 150 H Total Protein 5.8 L Albumin 3.3 L Urine Appearance Urine Protein Urine Glucose (UA) Urine Blood Ur Leukocyte Esterase Urine WBC Urine WBC Clumps Urine Bacteria Urine Mucus Urine Opiates Screen Influenza Type A RNA 05/18/19 05/18/19 05/18/19 23:17 23:35 23:35 RBC Hgb Hct MCH MCHC RDW Lymphocytes # PT 12.6 H INR 1.3 H ABG pH ABG pCO2 ABG pO2 ABG Total CO2 ABG O2 Saturation Sodium BUN Glucose POC Glucose (mg/dL) Hemoglobin A1c Plasma Lactic Acid Naveen Calcium AST Alkaline Phosphatase Total Protein Albumin Urine Appearance Cloudy H Urine Protein 1+ H Urine Glucose (UA) 1+ H Urine Blood Trace H Ur Leukocyte Esterase Large H Urine WBC >182 H Urine WBC Clumps Few H Urine Bacteria Rare H Urine Mucus Rare H Urine Opiates Screen Detected H Influenza Type A RNA 05/18/19 05/18/19 05/19/19 23:35 23:50 06:00 RBC 3.14 L Hgb 7.6 L Hct 26.1 L MCH 24.0 L MCHC 29.0 L RDW 19.0 H Lymphocytes # PT INR ABG pH 7.49 H ABG pCO2 33 L ABG pO2 132 H ABG Total CO2 26 H ABG O2 Saturation 99.9 H Sodium BUN Glucose POC Glucose (mg/dL) Hemoglobin A1c Plasma Lactic Acid Naveen Calcium AST Alkaline Phosphatase Total Protein Albumin Urine Appearance Urine Protein Urine Glucose (UA) Urine Blood Ur Leukocyte Esterase Urine WBC Urine WBC Clumps Urine Bacteria Urine Mucus Urine Opiates Screen Influenza Type A RNA Detected H 05/19/19 05/19/19 05/19/19 06:00 06:00 06:11 RBC Hgb Hct MCH MCHC RDW Lymphocytes # PT INR ABG pH ABG pCO2 ABG pO2 ABG Total CO2 ABG O2 Saturation Sodium BUN 25 H Glucose 260 H POC Glucose (mg/dL) 320 H Hemoglobin A1c 7.6 H Plasma Lactic Acid Naveen Calcium 7.7 L AST Alkaline Phosphatase Total Protein Albumin Urine Appearance Urine Protein Urine Glucose (UA) Urine Blood Ur Leukocyte Esterase Urine WBC Urine WBC Clumps Urine Bacteria Urine Mucus Urine Opiates Screen Influenza Type A RNA 05/19/19 05/19/19 05/19/19 12:46 17:41 20:16 RBC Hgb Hct MCH MCHC RDW Lymphocytes # PT INR ABG pH ABG pCO2 ABG pO2 ABG Total CO2 ABG O2 Saturation Sodium BUN Glucose POC Glucose (mg/dL) 294 H 213 H 179 H Hemoglobin A1c Plasma Lactic Acid Naveen Calcium AST Alkaline Phosphatase Total Protein Albumin Urine Appearance Urine Protein Urine Glucose (UA) Urine Blood Ur Leukocyte Esterase Urine WBC Urine WBC Clumps Urine Bacteria Urine Mucus Urine Opiates Screen Influenza Type A RNA 05/20/19 05/20/19 05/20/19 05:53 05:53 06:19 RBC 3.17 L Hgb 7.6 L Hct 26.3 L MCH 24.0 L MCHC 28.9 L RDW 18.8 H Lymphocytes # PT INR ABG pH ABG pCO2 ABG pO2 ABG Total CO2 ABG O2 Saturation Sodium 136 L BUN 29 H Glucose 199 H POC Glucose (mg/dL) 238 H Hemoglobin A1c Plasma Lactic Acid Naveen Calcium 8.3 L AST Alkaline Phosphatase Total Protein Albumin Urine Appearance Urine Protein Urine Glucose (UA) Urine Blood Ur Leukocyte Esterase Urine WBC Urine WBC Clumps Urine Bacteria Urine Mucus Urine Opiates Screen Influenza Type A RNA - Diagnostic Findings Chest x-ray: report reviewed, image reviewed Assessment and Plan Plan: Assessment: #1. Acute hypoxemic respiratory failure related to right middle and right upper lobe pneumonia #2. Acute influenza A infection #3. Exacerbation of COPD related to the above #4. Mild lactic acidosis, improved with IV hydration #5. Altered mental status related to metabolic encephalopathy and possible sepsis #6. Recent hospitalization for acute hypoxic respiratory failure related to acute exacerbation of COPD, non-ST elevated myocardial infarction, mild fluid overload requiring intubation and mechanical ventilator support and patient was intubated from 05/04/2019 through 05/05/2019 #7. Chronic left foot ulcer involving the fifth digit with previous cultures positive for Enterococcus faecalis #8. Recent GI blood loss anemia, with no clear indication of recurrence of active GI bleeding, current hemoglobin is 8.3, patient was treated medically, with no endoscopic studies #9. History of chronic atrial fibrillation with history of permanent pacemaker insertion #10. Chronic congestive heart failure with mild impairment of systolic function with most recent echocardiogram showing EF of 45-50%, mild to moderate mitral regurgitation, moderate pulmonary hypertension with right-sided pressures of 42 mmHg #11. History of coronary artery disease with previous stenting #12. History of diabetes mellitus with diabetic neuropathy #13. History of peripheral arterial disease bilaterally, with previous history of bilateral lower extremity arterial intervention #14. Previous history of smoking, currently in remission #15. History of COPD Plan: Continue with current antibiotics, including Zosyn, vancomycin and Tamiflu, nebulized bronchodilators, Symbicort, continue BiPAP support. Chest x-ray has been reviewed showing new airspace disease involving the right mid and right upper lobe. Lactic acid has improved, febrile pattern has improved, maintain aspiration precautions, continue oral anticoagulation. Overall prognosis is quite guarded in view of complexity and multitude of acute and chronic medical problems. We'll need to clarify CODE STATUS, we'll continue supportive treatment right now. I performed a history & physical examination of the patient and discussed their management with my nurse practitioner, Jeanne Lama. I reviewed the nurse practitioner's note and agree with the documented findings and plan of care. Lung sounds are positive for diminished breath sounds, with expiratory wheezing. The findings and the impression was discussed with the patient. I attest to the documentation by the nurse practitioner. Time with Patient: Greater than 30
[2019-05-20] MEDS: HYDROcodone/APAP 5-325MG 1 EACH TAB PO PRN (11:55)
[2019-05-20 12:07] LABS: Glucose,Whole Blood 168 mg/dL (75-99)
[2019-05-20] MEDS ORDERED: FUROSEMIDE 10 MG/ML 4 ML VIAL IV STA (13:58)
[2019-05-20 17:16] LABS: Glucose,Whole Blood 225 mg/dL (75-99)
[2019-05-20 20:22] LABS: Glucose,Whole Blood 168 mg/dL (75-99)
--- NOTE | 2019-05-20 21:59 | P.PN ---
Progress Note - Text Progress Note Date: 05/20/19 Chief Complaint: Increased confusion History of presenting complaint: This is a 79-year-old patient of Dr. Giraldo. Chronic stable medical conditions include coronary artery disease with stent, osteoarthritis, diabetic peripheral neuropathy, rosacea, atrial fibrillation on eliquis. Patient long-standing smoker. Patient has chronic wounds on the toes of the left foot. Known significant peripheral arterial disease. She does follow at the wound care center. Was followed by Dr. Rose from podiatry. Patient was brought in from [facility]. daughter give a history at the bedside. Daughter did visit her yesterday. Patient has been using a walker. Looked okay yesterday. Patient in the evening patient became congested with a cough pulse ox to draw down to 70s. Patient's been having some chills. Patient more confused than baseline. Hence was sent in. UA was found to be infected appearing. Patient herself was not able to give much history. Patient's pulse ox in the ER was 74%. Was put on a nonrebreather . Admitted with type A influenza pneumonitis with secondary suspected bacterial pneumonia, acute toxic encephalopathy, acute hypoxic respiratory failure, sepsis. Started on Tamiflu, IV Zosyn bronchodilators. Today-tired getting oxygen, responding better. At about 25% of breakfast. Review of systems: Was done for constitutional, cardiovascular, GI, pulmonary. relevant finding as above Active Medications Acetaminophen (Tylenol Tab) 500 mg PO Q6HR PRN PRN Reason: Moderate Pain Hydrocodone Bitart/Acetaminophen ([place] 5-325) 1 each PO Q6HR PRN PRN Reason: Pain Last Admin: 05/20/19 11:55 Dose: 1 each Documented by: Albuterol/Ipratropium (Duoneb 0.5 Mg-3 Mg/3 Ml Soln) 3 ml INHALATION RT-Q4H [facility] Last Admin: 05/20/19 21:08 Dose: 3 ml Documented by: Alprazolam (Xanax) 0.25 mg PO [facility] Last Admin: 05/19/19 21:02 Dose: 0.25 mg Documented by: Apixaban (Eliquis) 2.5 mg PO BID [facility] Last Admin: 05/20/19 09:32 Dose: 2.5 mg Documented by: Atorvastatin Calcium (Lipitor) 40 mg PO [facility] Last Admin: 05/19/19 21:03 Dose: 40 mg Documented by: Bisacodyl (Dulcolax) 10 mg RECTAL DAILY PRN PRN Reason: Constipation Budesonide/Formoterol Fumarate (Symbicort 160-4.5 Mcg Inhaler) 2 puff INHALA TION RT-BID [facility] Last Admin: 05/20/19 21:08 Dose: 2 puff Documented by: Cholecalciferol (Vitamin D3 (25 Mcg = 1000 Iu)) 2,000 unit PO DAILY [facility] Last Admin: 05/20/19 09:32 Dose: 2,000 unit Documented by: Clopidogrel Bisulfate (Plavix) 75 mg PO DAILY [facility] Last Admin: 05/20/19 09:32 Dose: 75 mg Documented by: Cyanocobalamin (Vitamin B-12) 1,000 mcg PO BID [facility] Last Admin: 05/20/19 09:32 Dose: 1,000 mcg Documented by: Donepezil HCl (Aricept) 5 mg PO DAILY@0800 [facility] Last Admin: 05/20/19 09:31 Dose: 5 mg Documented by: Furosemide (Lasix) 20 mg PO BID@0900,1600 [facility] Last Admin: 05/20/19 16:23 Dose: 20 mg Documented by: Sodium Chloride (Saline 0.9%) 1,000 mls @ 25 mls/hr IV .Q24H [facility] Last Admin: 05/20/19 17:18 Dose: Not Given Documented by: Piperacillin Sod/Tazobactam (Sod 3.375 gm/ Sodium Chloride) 100 mls @ 25 mls/hr IVPB Q8HR [facility] Last Admin: 05/20/19 16:31 Dose: 25 mls/hr Documented by: Insulin Aspart (Novolog) 0 unit SQ ACHS [facility]; Protocol Last Admin: 05/20/19 17:25 Dose: 7 unit Documented by: Losartan Potassium (Cozaar) 50 mg PO QAM [facility] Last Admin: 05/20/19 09:32 Dose: 50 mg Documented by: Magnesium Hydroxide (Milk Of Magnesia) 2,400 mg PO DAILY PRN PRN Reason: Constipation Metformin HCl (Glucophage) 750 mg PO BID-W/MEALS [facility] Last Admin: 05/20/19 17:24 Dose: 750 mg Documented by: Methylprednisolone Sodium Succinate (Solu-Medrol) 40 mg IV Q8HR [facility] Last Admin: 05/20/19 16:23 Dose: 40 mg Documented by: Montelukast Sodium (Singulair) 10 mg PO HS [facility] Last Admin: 05/19/19 21:03 Dose: 10 mg Documented by: Dapagliflozin Propanediol [Farxiga ] 5 mg PO DAILY [facility] Last Admin: 05/20/19 09:17 Dose: Not Given Documented by: Liraglutide [Victoza (]) 1.8 mg SQ [facility] Last Admin: 05/19/19 21:22 Dose: Not Given Documented by: Oxcarbazepine (Trileptal) 300 mg PO BID [facility] Last Admin: 05/20/19 09:32 Dose: 300 mg Documented by: Pregabalin (Lyrica) 150 mg PO BID [facility] Last Admin: 05/20/19 09:33 Dose: 150 mg Documented by: Sodium Biphosphate/Sodium Phosphate (Fleet Adult) 133 ml RECTAL DAILY PRN PRN Reason: Constipation Physical examination: VITAL SIGNS: 98.8, 69, 28, 140 30610, 100% on BiPAP GENERAL: Laying in bed, with BiPAP EYES: Pupils equal. Conjunctiva normal. NECK: JVD not raised; masses not palpable. HEART: Irregular heart sounds, minimal edema. LUNGS: Respiratory rate increased, diminished breath sounds coarse breath sound ABDOMEN: Soft, nontender, liver spleen not palpable, no masses palpable. PSYCH: Pleasant simple questions EXTREMITY: Noted dry gangrenous changes of the left small toe and ischemic changes in the other toes, especially the second toe INVESTIGATIONS, reviewed in the clinical context: White count 19 lm 7.6 potassium 4.5 creatinine 0.88, pro calcitonin 2.27 Previous testing White count 8.7 hemoglobin 8.3 platelets is 223 potassium 4.3 creatinine 0.90 Lactic acid 3.2 troponin I less than 0.012 proBNP 1360 Urine drug screen positive for opiates Influenza type A RNA-detected UA positive EKG tracing personally reviewed by me-atrial flutter rate controlled Chest x-ray film personally reviewed by me-multilobar infiltrate on the right side. Assessment: -Acute multilobar pneumonia, secondary to pneumonia appetite is from type A influenza including possible secondary suspect gram-negative organism, POA, slow to respond -Acute toxic encephalopathy, multifactorial, improving -Acute hypoxic respiratory failure, requiring Ventimask, secondary to pneumonia, POA, slow to respond -Acute sepsis from pneumonia, POA -Persistent atrial flutter chronically on eliquis -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 secondary to peripheral arterial disease -Chronic nicotine dependence patient active cigarette smoker -Persistent atrial fibrillation chronically on eliquis -Coronary artery disease a prior history of stent -Primary osteoarthritis -Diabetic peripheral neuropathy -Severe peripheral arterial disease -Cognitive impairment -Chronic kidney dysfunction uses a walker Plan: Continue with Tamiflu, IV Zosyn. Bronchodilators every 4 hours. We'll supplement Symbicort with Perforomist and inhaled steroid.
[2019-05-20] MEDS: ALPRAZolam 0.25 MG TAB PO SCH (22:01)
[2019-05-20] MEDS: ATORVASTATIN 40 MG TAB PO SCH (22:01)
[2019-05-20] MEDS: MONTELUKAST 10 MG TAB PO SCH (22:02)
[2019-05-21] MEDS: IPRATROPIUM-ALBUTEROL 3 ML NEB INHALATION SCH ×6 (00:35→20:48)
[2019-05-21 07:19] LABS: Glucose,Whole Blood 195 mg/dL (75-99)
--- NOTE | 2019-05-21 08:08 | XR ---
EXAMINATION TYPE: XR chest 1V portable DATE OF EXAM: 05/21/2019 COMPARISON: Prior chest x-ray 05/19/2019 HISTORY: Congestive heart failure TECHNIQUE: Single frontal view of the chest is obtained. FINDINGS: The heart remains enlarged. Pacemaker is stable. Aorta is dense. No evident pneumothorax o r pleural effusion. Interstitium is increased. There is some improvement in aeration especially in th e perihilar region on the right, right upper lobe. Patient is rotated. IMPRESSION: Improvement in volume status, lung aeration.
[2019-05-21] MEDS: CHOLECALCIFEROL 1,000 UNIT TAB PO SCH (08:31)
[2019-05-21] MEDS: CLOPIDOGREL 75 MG TAB PO SCH (08:31)
[2019-05-21] MEDS: metFORMIN 500 MG TAB PO SCH ×2 (08:32→17:05)
[2019-05-21] MEDS: APIXABAN 2.5 MG TABLET PO SCH ×2 (08:32→20:49)
[2019-05-21] MEDS: LOSARTAN 50 MG TAB PO SCH (08:32)
[2019-05-21] MEDS: INSULIN ASPART (NovoLOG) 100 UNIT/ML VIAL SQ SCH ×4 (08:32→21:21)
[2019-05-21] MEDS: PREGABALIN 75 MG CAP PO SCH ×2 (08:32→20:50)
[2019-05-21] MEDS: FUROSEMIDE 20 MG TAB PO SCH (08:32)
[2019-05-21] MEDS: CYANOCOBALAMIN 500 MCG TAB PO SCH ×2 (08:32→20:50)
[2019-05-21] MEDS: PIPERACILLIN-TAZOBACTAM 3.375 GM in SODIUM CHLORIDE 0.9% 100 ML IVPB SCH ×2 (08:33→17:05)
[2019-05-21] MEDS: methylPREDNISolone SOD SUCCI 40 MG/ML 1 ML VIAL IV SCH ×2 (08:33→17:05)
[2019-05-21] MEDS: OXcarbazepine 300 MG TAB PO SCH ×2 (08:34→20:50)
[2019-05-21] MEDS: BUDESONIDE 1 MG/2 ML NEBU INHALATION SCH ×2 (08:34→20:48)
[2019-05-21] MEDS: DONEPEZIL 5 MG TAB PO SCH (08:34)
[2019-05-21] MEDS: FORMOTEROL FUMARATE 20 MCG/2 ML NEBU INHALATION SCH ×2 (08:34→20:48)
[2019-05-21] MEDS: Dapagliflozin Propanediol [Farxiga] PO SCH (10:54)
[2019-05-21 11:08] LABS: Glucose,Whole Blood 348 mg/dL (75-99)
--- NOTE | 2019-05-21 12:29 | P.PN ---
Subjective Progress Note Date: 05/21/19 Principal diagnosis: Acute hypoxic respiratory failure secondary to right middle lobe pneumonia, and acute influenza A infection. And acute systolic congestive heart failure 79-year-old white female patient of Dr. Giraldo, with known history of diabetes mellitus type 2 with diabetic neuropathy, COPD, former smoker, chronic congestive heart failure, chronic atrial fibrillation with previous pacemaker insertion, coronary artery disease with previous stenting, peripheral vascular disease with a chronic wound on her left lower extremity in her fourth and fifth digit with previous wound cultures positive for enterococcus faecalis, who was recently hospitalized for acute hypoxemic failure related to COPD, non-ST elevated myocardial infarction, mild fluid overload, GI bleed, and acute metabolic encephalopathy. Patient required intubation and mechanical ventilation, and patient was intubated on 05/04/2019 and successfully extubated on 05/05/2019. Patient was also found to be anemic during that admission and required transfusion with 2 units of packed red blood cells. She was also evaluated by vascular surgery in regards to the pain involving her chronic wound in her left fifth toe, and no vascular intervention was recommended patient was treated medically with antiplatelet agents. GI service did not recommend any endoscopic intervention during that admission and patient was treated medically with no recurrence of GI bleeding. Patient had clinically improved as she was discharged to subacute rehab on O2 2019. Note that the chest x-ray during that admission only showed small bilateral pleural effusions with adjacent atelectasis. On 05 18 2019 patient was brought into the emergency department per EMS for evaluation of altered mental status. Patient was also found to have a positive for urinary tract infection. She was somnolent, confused, but could not provide much history. Blood work showed normal white count 8.7, hemoglobin of 8.3, electrolytes were unremarkable, B1 is 26 creatinine 0.90, plasma lactic acid was elevated at 3.2, AST was 43, ALT was 26, alkaline phosphatase was 150, troponin was less than 0.012, ammonia level was less than 9, proBNP was elevated at 1360, urinalysis showed amount of glucose, greater than 182 of white blood cells. Influenza screen was positive for influenza A. Brain CT showed cerebral atrophy chronic small vessel ischemia but no acute intracranial abnormality, chest x-ray showed new airspace pneumonia in the right lung, in the right middle lobe and the posterior segment of the right upper lobe and coarse interstitial infiltrates throughout the lower lung lindo. Patient was started on a combinat ion of Zosyn and vancomycin in addition to the Tamiflu. Blood gas showed a pO2 of 132, pCO2 of 33, and pH of 7.49, this was done on FiO2 of 100%, patient was placed on BiPAP support with pressures of 12 and 5, and current FiO2 is at 35%. Patient is on, but she is able to answer simple questions, she is oriented to person and place. Fever pattern has improved, she remains on empiric antibodies with Zosyn and vancomycin in addition to the Tamiflu, and were consulted in regards to the shortness of breath, influenza A infection, and right lung pneumonia Patient was reevaluated today on 05/21/2019, patient is responding well to multiple medications including antibiotics, Tamiflu, bronchodilators, and I have added Lasix yesterday. Follow-up chest x-ray showed significant improvement. Going back to her previous echocardiogram, patient had mild LV dysfunction and ejection fraction of 45%, considering the improvement noted on the chest x-ray, I believe there is a component of systolic congestive heart failure, hence I will continue diuretics in addition to her present medications including antibiotics and bronchodilators. Also continue Tamiflu. Objective - Vital Signs Vital signs: Vital Signs Temp 98.0 F 05/21/19 11:05 Pulse 92 05/21/19 11:53 Resp 20 05/21/19 11:05 BP 135/73 05/21/19 11:05 Pulse Ox 100 05/21/19 11:05 Intake & Output 05/20/19 05/21/19 05/21/19 18:59 06:59 18:59 Intake Total 100 250 Output Total 1000 Balance 100 -750 Weight 82.5 kg Intake: IV 100 150 Piperacillin-Tazobactam 3 100 150 .375 gm In Sodium Chloride 0.9% 100 ml @ 25 mls/hr IVPB Q8HR [facility] Rx# :[id number] Intake, IV Titration 100 Amount Sodium Chloride 0.9% 1, 100 000 ml @ 25 mls/hr IV . Q24H [facility] Rx#:[id number] Output: Urine 1000 Other: Voiding Method Indwelling Catheter Indwelling Catheter Indwelling Catheter - Exam GENERAL EXAM: Revealed 79-year-old female in no distress, less lethargic today, more awake. HEAD: Normocephalic/atraumatic. EENT: PERRLA, EOMI, no icterus, no neck masses, no JVD, no stridor. CHEST: No chest wall deformity. Symmetrical expansion. LUNGS: Equal air entry with a few scattered wheezes, but no crackles CVS: Regular rate and rhythm, normal S1 and S2, no gallops, no murmurs, no rubs ABDOMEN: Soft, nontender. No hepatosplenomegaly, normal bowel sounds, no guarding or rigidity. EXTREMITIES: No clubbing, no edema, no cyanosis, 2+ pulses and upper and lower extremities. MUSCULOSKELETAL: No limitation in range of motion, muscle strength and adequate bilaterally. SPINE: No scoliosis or deformity SKIN: No rashes. Chronic wound on her left foot fifth toe covered with a Band- Aid CENTRAL NERVOUS SYSTEM: Alert and oriented -2. No focal deficits, tone is normal in all 4 extremities. PSYCHIATRIC: Normal mood affect and normal mental status examination - Labs CBC & Chem 7: 05/20/19 05:53 05/20/19 05:53 Labs: Abnormal Lab Results - Last 24 Hours (Table) 05/20/19 05/20/19 05/21/19 Range/Units 17:14 20:20 07:11 POC Glucose (mg/dL) 225 H 168 H 195 H (75-99) mg/dL 05/21/19 Range/Units 11:02 POC Glucose (mg/dL) 348 H (75-99) mg/dL Microbiology - Last 24 Hours (Table) 05/18/19 23:35 Blood Culture - Preliminary Blood No Growth after 48 hours 05/18/19 23:35 Urine Culture - Preliminary Urine,Voided Coagulase Negative Staph Assessment and Plan Assessment: Impression: #1 Acute hypoxic respiratory failure secondary to influenza A infection, COPD exacerbation, pneumonia involving right middle lobe and right lower lobe, co mmunity-acquired, and suspect some component of acute systolic congestive heart failure with LV dysfunction based on previous echocardiogram. This is mostly based on the fact that the patient had a significant improvement and check on chest x-ray after diuresis. #2. Acute influenza A infection #3. Exacerbation of COPD related to the above #4. Mild lactic acidosis, improved with IV hydration #5. Altered mental status related to metabolic encephalopathy and possible sepsis #6. Recent hospitalization for acute hypoxic respiratory failure related to acute exacerbation of COPD, non-ST elevated myocardial infarction, mild fluid overload requiring intubation and mechanical ventilator support and patient was intubated from 05/04/2019 through 05/05/2019 #7. Chronic left foot ulcer involving the fifth digit with previous cultures positive for Enterococcus faecalis #8. Recent GI blood loss anemia, with no clear indication of recurrence of active GI bleeding, current hemoglobin is 8.3, patient was treated medically, with no endoscopic studies #9. History of chronic atrial fibrillation with history of permanent pacemaker insertion #10. Chronic congestive heart failure with mild impairment of systolic function with most recent echocardiogram showing EF of 45-50%, mild to moderate mitral regurgitation, moderate pulmonary hypertension with right-sided pressures of 42 mmHg #11. History of coronary artery disease with previous stenting #12. History of diabetes mellitus with diabetic neuropathy #13. History of peripheral arterial disease bilaterally, with previous history of bilateral lower extremity arterial intervention #14. Previous history of smoking, currently in remission Recommendation: Continue antibiotics. Continue bronchodilators. Continue Tamiflu. Continue BiPAP as needed. Continue diuretics. Repeat chest x-ray in a.m. Continue anticoagulations therapy. Not quite ready for discharge planning, possibly in the next 24-48 hours. We'll continue to follow. Time with Patient: Less than 30
[2019-05-21 13:44] VITALS: BMI 30.2
[2019-05-21 16:49] LABS: Glucose,Whole Blood 341 mg/dL (75-99)
[2019-05-21] MEDS: FUROSEMIDE 40 MG TAB PO SCH (17:05)
[2019-05-21] MEDS: SODIUM CHLORIDE 0.9% 1,000 ML IV SCH (17:11)
[2019-05-21 20:19] LABS: Glucose,Whole Blood 320 mg/dL (75-99)
[2019-05-21] MEDS: ALPRAZolam 0.25 MG TAB PO SCH (20:49)
[2019-05-21] MEDS: ATORVASTATIN 40 MG TAB PO SCH (20:49)
[2019-05-21] MEDS: MONTELUKAST 10 MG TAB PO SCH (20:50)
--- NOTE | 2019-05-21 20:54 | P.PN ---
Progress Note - Text Progress Note Date: 05/21/19 Chief Complaint: Increased confusion History of presenting complaint: This is a 79-year-old patient of Dr. Giraldo. Chronic stable medical conditions include coronary artery disease with stent, osteoarthritis, diabetic peripheral neuropathy, rosacea, atrial fibrillation on eliquis. Patient long-standing smoker. Patient has chronic wounds on the toes of the left foot. Known significant peripheral arterial disease. She does follow at the wound care center. Was followed by Dr. Rose from podiatry. Patient was brought in from [facility]. daughter give a history at the bedside. Daughter did visit her yesterday. Patient has been using a walker. Looked okay yesterday. Patient in the evening patient became congested with a cough pulse ox to draw down to 70s. Patient's been having some chills. Patient more confused than baseline. Hence was sent in. UA was found to be infected appearing. Patient herself was not able to give much history. Patient's pulse ox in the ER was 74%. Was put on a nonrebreather . Admitted with type A influenza pneumonitis with secondary suspected bacterial pneumonia, acute toxic encephalopathy, acute hypoxic respiratory failure, sepsis. Started on Tamiflu, IV Zosyn bronchodilators. Today-laying in bed. Getting easily tired. Congested cough. Did eat her breakfast. Review of systems: Was done for constitutional, cardiovascular, GI, pulmonary. relevant finding as above Active Medications Acetaminophen (Tylenol Tab) 500 mg PO Q6HR PRN PRN Reason: Moderate Pain Hydrocodone Bitart/Acetaminophen ([place] 5-325) 1 each PO Q6HR PRN PRN Reason: Pain Last Admin: 05/20/19 11:55 Dose: 1 each Documented by: Albuterol/Ipratropium (Duoneb 0.5 Mg-3 Mg/3 Ml Soln) 3 ml INHALATION RT-Q4H [facility] Last Admin: 05/21/19 20:48 Dose: 3 ml Documented by: Alprazolam (Xanax) 0.25 mg PO [facility] Last Admin: 05/21/19 20:49 Dose: 0.25 mg Documented by: Apixaban (Eliquis) 2.5 mg PO BID [facility] Last Admin: 05/21/19 20:49 Dose: 2.5 mg Documented by: Atorvastatin Calcium (Lipitor) 40 mg PO [facility] Last Admin: 05/21/19 20:49 Dose: 40 mg Documented by: Bisacodyl (Dulcolax) 10 mg RECTAL DAILY PRN PRN Reason: Constipation Budesonide (Pulmicort) 1 mg INHALATION RT-BID [facility] Last Admin: 05/21/19 20:48 Dose: 1 mg Documented by: Cholecalciferol (Vitamin D3 (25 Mcg = 1000 Iu)) 2,000 unit PO DAILY [facility] Last Admin: 05/21/19 08:31 Dose: 2,000 unit Documented by: Clopidogrel Bisulfate (Plavix) 75 mg PO DAILY [facility] Last Admin: 05/21/19 08:31 Dose: 75 mg Documented by: Cyanocobalamin (Vitamin B-12) 1,000 mcg PO BID [facility] Last Admin: 05/21/19 20:50 Dose: 1,000 mcg Documented by: Donepezil HCl (Aricept) 5 mg PO DAILY@0800 [facility] Last Admin: 05/21/19 08:34 Dose: 5 mg Documented by: Formoterol Fumarate (Perforomist) 20 mcg INHALATION RT-BID [facility] Last Admin: 05/21/19 20:48 Dose: 20 mcg Documented by: Furosemide (Lasix) 40 mg PO BID@0900,1600 [facility] Last Admin: 05/21/19 17:05 Dose: 40 mg Documented by: Sodium Chloride (Saline 0.9%) 1,000 mls @ 25 mls/hr IV .Q24H [facility] Last Admin: 05/21/19 17:11 Dose: Not Given Documented by: Piperacillin Sod/Tazobactam (Sod 3.375 gm/ Sodium Chloride) 100 mls @ 25 mls/hr IVPB Q8HR [facility] Last Admin: 05/21/19 17:05 Dose: 25 mls/hr Documented by: Insulin Aspart (Novolog) 0 unit SQ ACHS [facility]; Protocol Last Admin: 05/21/19 17:06 Dose: 8 unit Documented by: Losartan Potassium (Cozaar) 50 mg PO QAM [facility] Last Admin: 05/21/19 08:32 Dose: 50 mg Documented by: Magnesium Hydroxide (Milk Of Magnesia) 2,400 mg PO DAILY PRN PRN Reason: Constipation Metformin HCl (Glucophage) 750 mg PO BID-W/MEALS [facility] Last Admin: 05/21/19 17:05 Dose: 750 mg Documented by: Methylprednisolone Sodium Succinate (Solu-Medrol) 40 mg IV Q8HR [facility] Last Admin: 05/21/19 17:05 Dose: 40 mg Documented by: Montelukast Sodium (Singulair) 10 mg PO HS [facility] Last Admin: 05/21/19 20:50 Dose: 10 mg Documented by: Dapagliflozin Propanediol [Farxiga ] 5 mg PO DAILY [facility] Last Admin: 05/21/19 10:54 Dose: Not Given Documented by: Liraglutide [Victoza (]) 1.8 mg SQ [facility] Last Admin: 05/21/19 20:50 Dose: Not Given Documented by: Oxcarbazepine (Trileptal) 300 mg PO BID [facility] Last Admin: 05/21/19 20:50 Dose: 300 mg Documented by: Pregabalin (Lyrica) 150 mg PO BID [facility] Last Admin: 05/21/19 20:50 Dose: 150 mg Documented by: Sodium Biphosphate/Sodium Phosphate (Fleet Adult) 133 ml RECTAL DAILY PRN PRN Reason: Constipation Physical examination: VITAL SIGNS: 98, 85, 20, 135 was 33, 100% on 6 L GENERAL: Laying in bed, nasal cannula EYES: Pupils equal. Conjunctiva normal. NECK: JVD not raised; masses not palpable. HEART: Irregular heart sounds, minimal edema. LUNGS: Respiratory rate increased, diminished breath sounds coarse breath sound ABDOMEN: Soft, nontender, liver spleen not palpable, no masses palpable. PSYCH: Answering simple questions EXTREMITY: Noted dry gangrenous changes of the left small toe and ischemic changes in the other toes, especially the second toe INVESTIGATIONS, reviewed in the clinical context: White count 19 lm 7.6 potassium 4.5 creatinine 0.88, pro calcitonin 2.27 Previous testing White count 8.7 hemoglobin 8.3 platelets is 223 potassium 4.3 creatinine 0.90 Lactic acid 3.2 troponin I less than 0.012 proBNP 1360 Urine drug screen positive for opiates Influenza type A RNA-detected UA positive EKG tracing personally reviewed by me-atrial flutter rate controlled Chest x-ray film personally reviewed by me-multilobar infiltrate on the right side. Assessment: -Acute multilobar pneumonia, secondary to type A influenza including possible secondary suspect gram-negative organism, POA, slow to respond -Acute toxic encephalopathy, multifactorial, improving -Acute hypoxic respiratory failure, requiring Ventimask, secondary to pneumonia, POA, on 6 L nasal cannula. Slow to respond -Acute sepsis from pneumonia, POA -Persistent atrial flutter chronically on eliquis -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 secondary to peripheral arterial disease -Chronic nicotine dependence patient active cigarette smoker -Persistent atrial fibrillation chronically on eliquis -Coronary artery disease a prior history of stent -Primary osteoarthritis -Diabetic peripheral neuropathy -Severe peripheral arterial disease -Cognitive impairment -Chronic kidney dysfunction uses a walker Plan: Continue with DuoNeb, inhaled steroids, IV Zosyn, spoke to the nurse. Did ask the nurse to get the patient up in a chair. Expect the patient to the hospital another 24-48 hours.
[2019-05-22] MEDS: IPRATROPIUM-ALBUTEROL 3 ML NEB INHALATION SCH ×7 (00:19→23:59)
[2019-05-22] MEDS: methylPREDNISolone SOD SUCCI 40 MG/ML 1 ML VIAL IV SCH ×3 (00:25→16:41)
[2019-05-22] MEDS: ACETAMINOPHEN TAB 500 MG TAB PO PRN ×2 (00:25→13:54)
[2019-05-22] MEDS: PIPERACILLIN-TAZOBACTAM 3.375 GM in SODIUM CHLORIDE 0.9% 100 ML IVPB SCH ×4 (00:26→23:45)
[2019-05-22] MEDS ORDERED: HYDROcodone/APAP 5-325MG 1 EACH TAB ONE (03:40)
[2019-05-22 07:05] LABS: Glucose,Whole Blood 249 mg/dL (75-99)
[2019-05-22] MEDS: FORMOTEROL FUMARATE 20 MCG/2 ML NEBU INHALATION SCH ×2 (07:16→19:26)
[2019-05-22] MEDS: BUDESONIDE 1 MG/2 ML NEBU INHALATION SCH ×2 (07:16→19:25)
[2019-05-22 07:51] LABS: Anisocytosis Slight; HCT 27.9 % (34.0-46.0); Hypochromasia Marked; MCH 23.7 pg (25.0-35.0); MCHC 28.7 g/dL (31.0-37.0); MCV 82.6 fL (80.0-100.0); Mean Platelet Volume 7.9; Microcytosis Slight; Platelet Count 230 k/uL (150-450); Poikilocytosis Moderate; RBC 3.38 m/uL (3.80-5.40); RDW 18.7 % (11.5-15.5); WBC 6.2 k/uL (3.8-10.6)
[2019-05-22 08:02] LABS: Calcium 8.5 mg/dL (8.4-10.2); Potassium 3.7 mmol/L (3.5-5.1)
[2019-05-22] MEDS: PREGABALIN 75 MG CAP PO SCH ×2 (09:24→21:06)
[2019-05-22] MEDS: INSULIN ASPART (NovoLOG) 100 UNIT/ML VIAL SQ SCH ×4 (09:24→21:05)
[2019-05-22] MEDS: metFORMIN 500 MG TAB PO SCH ×2 (09:25→17:30)
[2019-05-22] MEDS: FUROSEMIDE 40 MG TAB PO SCH ×2 (09:26→16:42)
[2019-05-22] MEDS: CYANOCOBALAMIN 500 MCG TAB PO SCH ×2 (09:26→21:05)
[2019-05-22] MEDS: APIXABAN 2.5 MG TABLET PO SCH ×2 (09:26→21:04)
[2019-05-22] MEDS: CLOPIDOGREL 75 MG TAB PO SCH (09:26)
[2019-05-22] MEDS: LOSARTAN 50 MG TAB PO SCH (09:26)
[2019-05-22] MEDS: CHOLECALCIFEROL 1,000 UNIT TAB PO SCH (09:26)
[2019-05-22] MEDS: OXcarbazepine 300 MG TAB PO SCH ×2 (09:27→21:06)
[2019-05-22] MEDS: Dapagliflozin Propanediol [Farxiga] PO SCH (09:56)
[2019-05-22 11:16] LABS: Glucose,Whole Blood 398 mg/dL (75-99)
--- NOTE | 2019-05-22 11:32 | CDI ---
Documentation Clarification Form Date: 05/22/2019 11:23:17 AM From: Kristi Maya CCS, CCDS Admit Date: 05/19/2019 01:04:00 AM Patient Name: Ariadne Ortiz Visit Number: [id number] Discharge Date: ATTENTION: The Clinical Documentation Specialists (CDI) and [facility] Coding Staff appreciate your assistance in clarifying documentation. Please respond to the clarification below the line at the bottom and electronically sign. The CDI & [facility] Coding staff will review the response and follow-up if needed. Please note: Queries are made part of the Legal Health Record. If you have any questions, please contact the author of this message via ITS. Dr. Momo Medina: A pressure ulcer was documented in the nursing notes starting on 05/19 as a pressure injury, present on admission, buttock (nos) stage II. The ulcer is not documented in the physician notes, wound care is not consulted. History/Risk Factors: DM II with diabetic peripheral neuropathy, chronic ulcer on the left foot, PAD, CAD with stent, OA, Atrial fibrillation on Eliquis & long history of smoking. Clinical Indicators: Patient presented to the ED with increased confusion, congested with cough & low PO (70s), chills, UA infected, started on a NRB. Treatment: Patient is being treated for Sepsis, acute hypoxic respiratory failure, influenza & acute on chronic systolic CHF. Elements for accurate and compliant documentation of an ulcer: *The location/laterality of the ulcer *Etiology (decubitus/pressure, diabetic, PVD) *Stage I-IV, Unstageable, Suspected Deep Tissue Injury (To the deepest stage) *If the ulcer was present at admission (POA) or occurred after admission In your professional opinion, can you please clarify the diagnosis, location, laterality and whether present on admission (POA): Stage 2 Pressure/Decubitus Ulcer Buttock (Partial thickness, loss of dermis, pink wound bed) Other condition, please specify Unable to determine Please indicate etiology of pressure ulcer (if known). (Last Revision: December 2016) Stage II decubitus ulcer buttock, POA MTDD
--- NOTE | 2019-05-22 12:41 | P.PN ---
Subjective Progress Note Date: 05/22/19 Principal diagnosis: Acute hypoxic respiratory failure secondary to right middle lobe pneumonia, and acute influenza A infection. And acute systolic congestive heart failure 79-year-old white female patient of Dr. Giraldo, with known history of diabetes mellitus type 2 with diabetic neuropathy, COPD, former smoker, chronic congestive heart failure, chronic atrial fibrillation with previous pacemaker insertion, coronary artery disease with previous stenting, peripheral vascular disease with a chronic wound on her left lower extremity in her fourth and fifth digit with previous wound cultures positive for enterococcus faecalis, who was recently hospitalized for acute hypoxemic failure related to COPD, non-ST elevated myocardial infarction, mild fluid overload, GI bleed, and acute metabolic encephalopathy. Patient required intubation and mechanical ventilation, and patient was intubated on 05/04/2019 and successfully extubated on 05/05/2019. Patient was also found to be anemic during that admission and required transfusion with 2 units of packed red blood cells. She was also evaluated by vascular surgery in regards to the pain involving her chronic wound in her left fifth toe, and no vascular intervention was recommended patient was treated medically with antiplatelet agents. GI service did not recommend any endoscopic intervention during that admission and patient was treated medically with no recurrence of GI bleeding. Patient had clinically improved as she was discharged to subacute rehab on O2 2019. Note that the chest x-ray during that admission only showed small bilateral pleural effusions with adjacent atelectasis. On 05 18 2019 patient was brought into the emergency department per EMS for evaluation of altered mental status. Patient was also found to have a positive for urinary tract infection. She was somnolent, confused, but could not provide much history. Blood work showed normal white count 8.7, hemoglobin of 8.3, electrolytes were unremarkable, B1 is 26 creatinine 0.90, plasma lactic acid was elevated at 3.2, AST was 43, ALT was 26, alkaline phosphatase was 150, troponin was less than 0.012, ammonia level was less than 9, proBNP was elevated at 1360, urinalysis showed amount of glucose, greater than 182 of white blood cells. Influenza screen was positive for influenza A. Brain CT showed cerebral atrophy chronic small vessel ischemia but no acute intracranial abnormality, chest x-ray showed new airspace pneumonia in the right lung, in the right middle lobe and the posterior segment of the right upper lobe and coarse interstitial infiltrates throughout the lower lung lindo. Patient was started on a combinat ion of Zosyn and vancomycin in addition to the Tamiflu. Blood gas showed a pO2 of 132, pCO2 of 33, and pH of 7.49, this was done on FiO2 of 100%, patient was placed on BiPAP support with pressures of 12 and 5, and current FiO2 is at 35%. Patient is on, but she is able to answer simple questions, she is oriented to person and place. Fever pattern has improved, she remains on empiric antibodies with Zosyn and vancomycin in addition to the Tamiflu, and were consulted in regards to the shortness of breath, influenza A infection, and right lung pneumonia Patient was reevaluated today on 05/21/2019, patient is responding well to multiple medications including antibiotics, Tamiflu, bronchodilators, and I have added Lasix yesterday. Follow-up chest x-ray showed significant improvement. Going back to her previous echocardiogram, patient had mild LV dysfunction and ejection fraction of 45%, considering the improvement noted on the chest x-ray, I believe there is a component of systolic congestive heart failure, hence I will continue diuretics in addition to her present medications including antibiotics and bronchodilators. Also continue Tamiflu. Reevaluated today on 05/22/19, patient is feeling better, breathing a bit easier, less cough and less wheezing less shortness of breath. Remains on diuretics, bronchodilators, antibiotics, Tamiflu, and obviously that seems to be helping her symptoms significantly, and her last follow-up chest x-ray was showing improvement in her interstitial edema. Objective - Vital Signs Vital signs: Vital Signs Temp 96.8 F L 05/22/19 11:11 Pulse 78 05/22/19 11:11 Resp 18 05/22/19 11:11 BP 129/71 05/22/19 11:11 Pulse Ox 99 05/22/19 11:11 Intake & Output 05/21/19 05/22/19 05/22/19 18:59 06:59 18:59 Intake Total 100 150 Output Total 1500 1300 Balance -1400 150 -1300 Weight 82.5 kg Intake: IV 100 Piperacillin-Tazobactam 3 100 .375 gm In Sodium Chloride 0.9% 100 ml @ 25 mls/hr IVPB Q8HR [facility] Rx# :[id number] Intake, IV Titration 150 Amount Piperacillin-Tazobactam 3 100 .375 gm In Sodium Chloride 0.9% 100 ml @ 25 mls/hr IVPB Q8HR [facility] Rx# :[id number] Sodium Chloride 0.9% 1, 50 000 ml @ 25 mls/hr IV . Q24H [facility] Rx#:[id number] Output: Urine 1500 1300 Other: Voiding Method Indwelling Catheter Indwelling Catheter Indwelling Catheter # Bowel Movements 0 - Exam GENERAL EXAM: Revealed 79-year-old female in no distress, less lethargic today, more awake. HEAD: Normocephalic/atraumatic. EENT: PERRLA, EOMI, no icterus, no neck masses, no JVD, no stridor. CHEST: No chest wall deformity. Symmetrical expansion. LUNGS: Equal air entry rhonchi on forced expiratory maneuver only. CVS: Regular rate and rhythm, normal S1 and S2, no gallops, no murmurs, no rubs ABDOMEN: Soft, nontender. No hepatosplenomegaly, normal bowel sounds, no guarding or rigidity. EXTREMITIES: No clubbing, no edema, no cyanosis, 2+ pulses and upper and lower extremities. MUSCULOSKELETAL: No limitation in range of motion, muscle strength and adequate bilaterally. SPINE: No scoliosis or deformity SKIN: No rashes. Chronic wound on her left foot fifth toe covered with a Band- Aid CENTRAL NERVOUS SYSTEM: Alert and oriented -2. No focal deficits, tone is normal in all 4 extremities. PSYCHIATRIC: Normal mood affect and normal mental status examination - Labs CBC & Chem 7: 05/22/19 07:22 05/22/19 07:22 Labs: Abnormal Lab Results - Last 24 Hours (Table) 05/21/19 05/21/19 05/22/19 Range/Units 16:45 20:18 07:01 RBC (3.80-5.40) m/uL Hgb (11.4-16.0) gm/dL Hct (34.0-46.0) % MCH (25.0-35.0) pg MCHC (31.0-37.0) g/dL RDW (11.5-15.5) % BUN (7-17) mg/dL Glucose (74-99) mg/dL POC Glucose (mg/dL) 341 H 320 H 249 H (75-99) mg/dL 05/22/19 05/22/19 05/22/19 Range/Units 07:22 07:22 11:10 RBC 3.38 L (3.80-5.40) m/uL Hgb 8.0 L (11.4-16.0) gm/dL Hct 27.9 L (34.0-46.0) % MCH 23.7 L (25.0-35.0) pg MCHC 28.7 L (31.0-37.0) g/dL RDW 18.7 H (11.5-15.5) % BUN 26 H (7-17) mg/dL Glucose 229 H (74-99) mg/dL POC Glucose (mg/dL) 398 H (75-99) mg/dL Microbiology - Last 24 Hours (Table) 05/18/19 23:35 Urine Culture - Final Urine,Voided Staphylococcus epidermidis 05/18/19 23:35 Blood Culture - Preliminary Blood No Growth after 72 hours Assessment and Plan Assessment: Impression: #1 Acute hypoxic respiratory failure secondary to influenza A infection, COPD exacerbation, pneumonia involving right middle lobe and right lower lobe, community-acquired, and suspect some component of acute systolic congestive heart failure with LV dysfunction based on previous echocardiogram. This is mostly based on the fact that the patient had a significant improvement and check on chest x-ray after diuresis. #2. Acute influenza A infection #3. Exacerbation of COPD related to the above #4. Mild lactic acidosis, improved with IV hydration #5. Altered mental status related to metabolic encephalopathy and possible sepsis #6. Recent hospitalization for acute hypoxic respiratory failure related to acute exacerbation of COPD, non-ST elevated myocardial infarction, mild fluid overload requiring intubation and mechanical ventilator support and patient was intubated from 05/04/2019 through 05/05/2019 #7. Chronic left foot ulcer involving the fifth digit with previous cultures positive for Enterococcus faecalis #8. Recent GI blood loss anemia, with no clear indication of recurrence of active GI bleeding, current hemoglobin is 8.3, patient was treated medically, with no endoscopic studies #9. History of chronic atrial fibrillation with history of permanent pacemaker insertion #10. Chronic congestive heart failure with mild impairment of systolic function with most recent echocardiogram showing EF of 45-50%, mild to moderate mitral regurgitation, moderate pulmonary hypertension with right-sided pressures of 42 mmHg #11. History of coronary artery disease with previous stenting #12. History of diabetes mellitus with diabetic neuropathy #13. History of peripheral arterial disease bilaterally, with previous history of bilateral lower extremity arterial intervention #14. Previous history of smoking, currently in remission Recommendation: Continue antibiotics. Continue bronchodilators. Continue Tamiflu. Continue BiPAP as needed. Continue diuretics. Continue anticoagulations therapy. Consider discharge planning in the next 24 hours. Time with Patient: Less than 30
[2019-05-22] MEDS: DONEPEZIL 5 MG TAB PO SCH (13:52)
[2019-05-22] MEDS: SODIUM CHLORIDE 0.9% 1,000 ML IV SCH (16:46)
[2019-05-22 17:12] LABS: Glucose,Whole Blood 353 mg/dL (75-99)
--- NOTE | 2019-05-22 19:00 | P.PN ---
Progress Note - Text Progress Note Date: 05/22/19 Chief Complaint: Increased confusion History of presenting complaint: This is a 79-year-old patient of Dr. Giraldo. Chronic stable medical conditions include coronary artery disease with stent, osteoarthritis, diabetic peripheral neuropathy, rosacea, atrial fibrillation on eliquis. Patient long-standing smoker. Patient has chronic wounds on the toes of the left foot. Known significant peripheral arterial disease. She does follow at the wound care center. Was followed by Dr. Rose from podiatry. Patient was brought in from [facility]. daughter give a history at the bedside. Daughter did visit her yesterday. Patient has been using a walker. Looked okay yesterday. Patient in the evening patient became congested with a cough pulse ox to draw down to 70s. Patient's been having some chills. Patient more confused than baseline. Hence was sent in. UA was found to be infected appearing. Patient herself was not able to give much history. Patient's pulse ox in the ER was 74%. Was put on a nonrebreather . Admitted with type A influenza pneumonitis with secondary suspected bacterial pneumonia, acute toxic encephalopathy, acute hypoxic respiratory failure, sepsis. Started on Tamiflu, IV Zosyn bronchodilators. Today-feeling much better today cough much improved. ate 100% before breakfast and lunch.. Up in a chair. Review of systems: Was done for constitutional, cardiovascular, GI, pulmonary. relevant finding as above Active Medications Acetaminophen (Tylenol Tab) 500 mg PO Q6HR PRN PRN Reason: Moderate Pain Last Admin: 05/22/19 13:54 Dose: 500 mg Documented by: Hydrocodone Bitart/Acetaminophen (Wheeler 5-325) 1 each PO Q6HR PRN PRN Reason: Pain Last Admin: 05/20/19 11:55 Dose: 1 each Documented by: Albuterol/Ipratropium (Duoneb 0.5 Mg-3 Mg/3 Ml Soln) 3 ml INHALATION RT-Q4H [facility] Last Admin: 05/22/19 15:21 Dose: 3 ml Documented by: Alprazolam (Xanax) 0.25 mg PO HS [facility] Last Admin: 05/21/19 20:49 Dose: 0.25 mg Documented by: Apixaban (Eliquis) 2.5 mg PO BID [facility] Last Admin: 05/22/19 09:26 Dose: 2.5 mg Documented by: Atorvastatin Calcium (Lipitor) 40 mg PO HS [facility] Last Admin: 05/21/19 20:49 Dose: 40 mg Documented by: Bisacodyl (Dulcolax) 10 mg RECTAL DAILY PRN PRN Reason: Constipation Budesonide (Pulmicort) 1 mg INHALATION RT-BID [facility] Last Admin: 05/22/19 07:16 Dose: 1 mg Documented by: Cholecalciferol (Vitamin D3 (25 Mcg = 1000 Iu)) 2,000 unit PO DAILY [facility] Last Admin: 05/22/19 09:26 Dose: 2,000 unit Documented by: Clopidogrel Bisulfate (Plavix) 75 mg PO DAILY [facility] Last Admin: 05/22/19 09:26 Dose: 75 mg Documented by: Cyanocobalamin (Vitamin B-12) 1,000 mcg PO BID [facility] Last Admin: 05/22/19 09:26 Dose: 1,000 mcg Documented by: Donepezil HCl (Aricept) 5 mg PO DAILY@0800 [facility] Last Admin: 05/22/19 13:52 Dose: 5 mg Documented by: Formoterol Fumarate (Perforomist) 20 mcg INHALATION RT-BID [facility] Last Admin: 05/22/19 07:16 Dose: 20 mcg Documented by: Furosemide (Lasix) 40 mg PO BID@0900,1600 [facility] Last Admin: 05/22/19 16:42 Dose: 40 mg Documented by: Sodium Chloride (Saline 0.9%) 1,000 mls @ 25 mls/hr IV .Q24H [facility] Last Admin: 05/22/19 16:46 Dose: Not Given Documented by: Piperacillin Sod/Tazobactam (Sod 3.375 gm/ Sodium Chloride) 100 mls @ 25 mls/hr IVPB Q8HR [facility] Last Admin: 05/22/19 16:42 Dose: 25 mls/hr Documented by: Insulin Aspart (Novolog) 0 unit SQ ACHS [facility]; Protocol Last Admin: 05/22/19 17:29 Dose: 8 unit Documented by: Losartan Potassium (Cozaar) 50 mg PO QAM [facility] Last Admin: 05/22/19 09:26 Dose: 50 mg Documented by: Magnesium Hydroxide (Milk Of Magnesia) 2,400 mg PO DAILY PRN PRN Reason: Constipation Metformin HCl (Glucophage) 750 mg PO BID-W/MEALS [facility] Last Admin: 05/22/19 17:30 Dose: 750 mg Documented by: Methylprednisolone Sodium Succinate (Solu-Medrol) 40 mg IV Q8HR [facility] Last Admin: 05/22/19 16:41 Dose: 40 mg Documented by: Montelukast Sodium (Singulair) 10 mg PO HS [facility] Last Admin: 05/21/19 20:50 Dose: 10 mg Documented by: Dapagliflozin Propanediol [Farxiga ] 5 mg PO DAILY [facility] Last Admin: 05/22/19 09:56 Dose: Not Given Documented by: Liraglutide [Victoza (]) 1.8 mg SQ [facility] Last Admin: 05/21/19 20:50 Dose: Not Given Documented by: Oxcarbazepine (Trileptal) 300 mg PO BID [facility] Last Admin: 05/22/19 09:27 Dose: 300 mg Documented by: Pregabalin (Lyrica) 150 mg PO BID [facility] Last Admin: 05/22/19 09:24 Dose: 150 mg Documented by: Sodium Biphosphate/Sodium Phosphate (Fleet Adult) 133 ml RECTAL DAILY PRN PRN Reason: Constipation Physical examination: VITAL SIGNS: 96.8, 78, 18, 129/71, 99% on 6 L GENERAL: Sitting up in a chair, breathing much improved EYES: Pupils equal. Conjunctiva normal. NECK: JVD not raised; masses not palpable. HEART: Irregular heart sounds, minimal edema. LUNGS: Respiratory rate increased, diminished breath sounds ABDOMEN: Soft, nontender, liver spleen not palpable, no masses palpable. PSYCH: Answering questions appropriately EXTREMITY: Noted dry gangrenous changes of the left small toe and ischemic changes in the other toes, especially the second toe INVESTIGATIONS, reviewed in the clinical context: White count 6.2 hemoglobin 8 potassium 3.7 creatinine 0.83 Accu-Cheks 398, 353 Previous testing White count 8.7 hemoglobin 8.3 platelets is 223 potassium 4.3 creatinine 0.90 Lactic acid 3.2 troponin I less than 0.012 proBNP 1360 Urine drug screen positive for opiates Influenza type A RNA-detected UA positive EKG tracing personally reviewed by me-atrial flutter rate controlled Chest x-ray film personally reviewed by me-multilobar infiltrate on the right side. pro calcitonin 2.27 Assessment: -Acute multilobar pneumonia, secondary to type A influenza including possible secondary suspect gram-negative organism, POA, responded well -Acute toxic encephalopathy, multifactorial, improving -Acute hypoxic respiratory failure, requiring Ventimask, secondary to pneumonia, POA, on 6 L nasal cannula. Improving -Acute sepsis from pneumonia, POA -Persistent atrial flutter chronically on eliquis -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 secondary to peripheral arterial disease -Chronic nicotine dependence patient active cigarette smoker -Coronary artery disease a prior history of stent -Primary osteoarthritis -Diabetic peripheral neuropathy -Severe peripheral arterial disease -Cognitive impairment -Chronic kidney dysfunction uses a walker -Diabetes mellitus type 2, uncontrolled with hyperglycemia Plan: We'll switch the patient to by mouth Augmentin. Switched to by mouth prednisone. Can be discharged to the ECF in next 24 hours. Discussed with social service coordinator
[2019-05-22 20:47] LABS: Glucose,Whole Blood 337 mg/dL (75-99)
[2019-05-22] MEDS: predniSONE 10 MG TAB PO SCH (21:04)
[2019-05-22] MEDS: ATORVASTATIN 40 MG TAB PO SCH (21:04)
[2019-05-22] MEDS: ALPRAZolam 0.25 MG TAB PO SCH (21:04)
[2019-05-22] MEDS: MONTELUKAST 10 MG TAB PO SCH (21:05)
[2019-05-23] MEDS: IPRATROPIUM-ALBUTEROL 3 ML NEB INHALATION SCH ×3 (03:52→10:51)
[2019-05-23 07:03] LABS: Glucose,Whole Blood 328 mg/dL (75-99)
[2019-05-23] MEDS: BUDESONIDE 1 MG/2 ML NEBU INHALATION SCH (07:07)
[2019-05-23] MEDS: FORMOTEROL FUMARATE 20 MCG/2 ML NEBU INHALATION SCH (07:07)
--- NOTE | 2019-05-23 07:55 | XR ---
EXAMINATION TYPE: XR chest 1V portable DATE OF EXAM: 05/23/2019 COMPARISON: Prior chest x-ray 05/21/2019 HISTORY: Pneumonia, congestive heart failure TECHNIQUE: Single frontal view of the chest is obtained. FINDINGS: There is no evident pneumothorax or pleural effusion. Heart is enlarged. Pacemaker stable. Suspect some improvement in aeration, in the interstitium. IMPRESSION: Improvement in patient's volume status, aeration within the lungs.
[2019-05-23] MEDS: HYDROcodone/APAP 5-325MG 1 EACH TAB PO PRN (08:12)
[2019-05-23] MEDS: PREGABALIN 75 MG CAP PO SCH (08:14)
[2019-05-23] MEDS: INSULIN ASPART (NovoLOG) 100 UNIT/ML VIAL SQ SCH ×2 (08:14→12:59)
[2019-05-23] MEDS: CHOLECALCIFEROL 1,000 UNIT TAB PO SCH (08:15)
[2019-05-23] MEDS: CLOPIDOGREL 75 MG TAB PO SCH (08:15)
[2019-05-23] MEDS: CYANOCOBALAMIN 500 MCG TAB PO SCH (08:16)
[2019-05-23] MEDS: APIXABAN 2.5 MG TABLET PO SCH (08:17)
[2019-05-23] MEDS: metFORMIN 500 MG TAB PO SCH (08:17)
[2019-05-23] MEDS: LOSARTAN 50 MG TAB PO SCH (08:17)
[2019-05-23] MEDS: predniSONE 10 MG TAB PO SCH (08:17)
[2019-05-23] MEDS: OXcarbazepine 300 MG TAB PO SCH (08:18)
[2019-05-23] MEDS: FUROSEMIDE 40 MG TAB PO SCH (08:18)
[2019-05-23] MEDS: DONEPEZIL 5 MG TAB PO SCH (08:18)
[2019-05-23] MEDS: PIPERACILLIN-TAZOBACTAM 3.375 GM in SODIUM CHLORIDE 0.9% 100 ML IVPB SCH (08:23)
[2019-05-23] MEDS: Dapagliflozin Propanediol [Farxiga] PO SCH (08:24)
--- NOTE | 2019-05-23 11:36 | P.PN ---
Subjective Progress Note Date: 05/23/19 Principal diagnosis: Acute hypoxic respiratory failure secondary to influenza A infection and a COPD exacerbation along with pneumonia involving the right middle and lower lobes. Acute hypoxic respiratory failure secondary to right middle lobe pneumonia, and acute influenza A infection. And acute systolic congestive heart failure 79-year-old white female patient of Dr. Giraldo, with known history of diabetes mellitus type 2 with diabetic neuropathy, COPD, former smoker, chronic congestive heart failure, chronic atrial fibrillation with previous pacemaker insertion, coronary artery disease with previous stenting, peripheral vascular disease with a chronic wound on her left lower extremity in her fourth and fifth digit with previous wound cultures positive for enterococcus faecalis, who was recently hospitalized for acute hypoxemic failure related to COPD, non-ST elev ated myocardial infarction, mild fluid overload, GI bleed, and acute metabolic encephalopathy. Patient required intubation and mechanical ventilation, and patient was intubated on 05/04/2019 and successfully extubated on 05/05/2019. Patient was also found to be anemic during that admission and required transfusion with 2 units of packed red blood cells. She was also evaluated by vascular surgery in regards to the pain involving her chronic wound in her left fifth toe, and no vascular intervention was recommended patient was treated medically with antiplatelet agents. GI service did not recommend any endoscopic intervention during that admission and patient was treated medically with no r ecurrence of GI bleeding. Patient had clinically improved as she was discharged to subacute rehab on O2 2019. Note that the chest x-ray during that admission only showed small bilateral pleural effusions with adjacent atelectasis. On 05 18 2019 patient was brought into the emergency department per EMS for evaluation of altered mental status. Patient was also found to have a positive for urinary tract infection. She was somnolent, confused, but could not provide much history. Blood work showed normal white count 8.7, hemoglobin of 8.3, electrolytes were unremarkable, B1 is 26 creatinine 0.90, plasma lactic acid was elevated at 3.2, AST was 43, ALT was 26, alkaline phosphatase was 150, troponin was less than 0.012, ammonia level was less than 9, proBNP was elevated at 1360, urinalysis showed amount of glucose, greater than 182 of white blood cells. Influenza screen was positive for influenza A. Brain CT showed cerebral atrophy chronic small vessel ischemia but no acute intracranial abnormality, chest x-ray showed new airspace pneumonia in the right lung, in the right middle lobe and the posterior segment of the right upper lobe and coarse interstitial infiltrates throughout the lower lung lindo. Patient was started on a combination of Zosyn and vancomycin in addition to the Tamiflu. Blood gas showed a pO2 of 132, pCO2 of 33, and pH of 7.49, this was done on FiO2 of 100%, patient was placed on BiPAP support with pressures of 12 and 5, and current FiO2 is at 35%. Patient is on, but she is able to answer simple questions, she is oriented to person and place. Fever pattern has improved, she remains on empiric antibodies with Zosyn and vancomycin in addition to the Tamiflu, and were consulted in regards to the shortness of breath, influenza A infection, and right lung pneumonia Patient was reevaluated today on 05/21/2019, patient is responding well to multiple medications including antibiotics, Tamiflu, bronchodilators, and I have added Lasix yesterday. Follow-up chest x-ray showed significant improvement. Going back to her previous echocardiogram, patient had mild LV dysfunction and ejection fraction of 45%, considering the improvement noted on the chest x-ray, I believe there is a component of systolic congestive heart failure, hence I will continue diuretics in addition to her present medications including antibiotics and bronchodilators. Also continue Tamiflu. Reevaluated today on 05/22/19, patient is feeling better, breathing a bit easier, less cough and less wheezing less shortness of breath. Remains on diuretics, bronchodilators, antibiotics, Tamiflu, and obviously that seems to be helping her symptoms significantly, and her last follow-up chest x-ray was showing improvement in her interstitial edema. The patient is seen today for a 2019 in follow-up on the regular medical floor. She is currently sitting up in a chair at the bedside. Doing about better today compared to yesterday. Less shortness of breath cough and co ngestion. She is maintaining O2 saturation in the 90s on room air. She's been afebrile. Hemodynamically stable. Blood culture reveals no growth. Blood glucose 328. She remains on DuoNeb inhalations, Pulmicort and Perforomist inhalations, prednisone taper, Zosyn. Today's chest x-ray shows improvement in aeration along with improvement in the volume status. She remains on oral diuretics. Anticoagulated with Eliquis. Objective - Vital Signs Vital signs: Vital Signs Temp 96.8 F L 05/23/19 05:00 Pulse 78 05/23/19 11:05 Resp 18 05/23/19 05:00 BP 112/68 05/23/19 05:00 Pulse Ox 96 05/23/19 07:09 Intake & Output 05/22/19 05/23/19 05/23/19 18:59 06:59 18:59 Intake Total 350 300 150 Output Total 2200 2400 Balance -1850 -2100 150 Weight 83.8 kg Intake: IV 100 Piperacillin-Tazobactam 3 100 .375 gm In Sodium Chloride 0.9% 100 ml @ 25 mls/hr IVPB Q8HR [facility]ANTZ Rx# :[id number] Intake, IV Titration 100 200 Amount Piperacillin-Tazobactam 3 100 100 .375 gm In Sodium Chloride 0.9% 100 ml @ 25 mls/hr IVPB Q8HR [facility]ANTZ Rx# :[id number] Sodium Chloride 0.9% 1, 100 000 ml @ 25 mls/hr IV . Q24H [facility]ANTZ Rx#:[id number] Oral 250 150 Output: Urine 2200 2400 Uretheral (Mathews) 2400 Other: Voiding Method Indwelling Catheter Indwelling Catheter - Exam GENERAL EXAM: Revealed 79-year-old female in no distress, awake and alert, on room air. HEAD: Normocephalic/atraumatic. EENT: PERRLA, EOMI, no icterus, no neck masses, no JVD, no stridor. CHEST: No chest wall deformity. Symmetrical expansion. LUNGS: Equal air entry with few scattered rhonchi. CVS: Regular rate and rhythm, normal S1 and S2, no gallops, no murmurs, no rubs ABDOMEN: Soft, nontender. No hepatosplenomegaly, normal bowel sounds, no guarding or rigidity. EXTREMITIES: No clubbing, no edema, no cyanosis, 2+ pulses and upper and lower extremities. MUSCULOSKELETAL: No limitation in range of motion, muscle strength and adequate bilaterally. SPINE: No scoliosis or deformity SKIN: No rashes. Chronic wound on her left foot fifth toe covered with a Band- Aid CENTRAL NERVOUS SYSTEM: Alert and oriented -2. No focal deficits, tone is normal in all 4 extremities. PSYCHIATRIC: Normal mood affect and normal mental status examination - Labs CBC & Chem 7: 05/22/19 07:22 05/22/19 07:22 Labs: Abnormal Lab Results - Last 24 Hours (Table) 05/22/19 05/22/19 05/23/19 Range/Units 17:07 20:45 07:02 POC Glucose (mg/dL) 353 H 337 H 328 H (75-99) mg/dL Microbiology - Last 24 Hours (Table) 05/18/19 23:35 Blood Culture - Preliminary Blood No Growth after 96 hours 05/18/19 23:35 Urine Culture - Final Urine,Voided Staphylococcus epidermidis Assessment and Plan Assessment: #1. Acute hypoxic respiratory failure secondary to influenza A infection, COPD exacerbation, pneumonia involving right middle lobe and right lower lobe, and suspect some component of acute systolic congestive heart failure with LV dysfunction based on previous echocardiogram. This is mostly based on the fact that the patient had a significant improvement and check on chest x-ray after diuresis. #2. Acute influenza A infection treated with Tamiflu #3. Exacerbation of COPD related to the above #4. Mild lactic acidosis, improved with IV hydration #5. Altered mental status related to metabolic encephalopathy and possible sepsis, recovered #6. Recent hospitalization for acute hypoxic respiratory failure related to acute exacerbation of COPD, non-ST elevated myocardial infarction, mild fluid overload requiring intubation and mechanical ventilator support and patient was intubated from 05/04/2019 through 05/05/2019 #7. Chronic left foot ulcer involving the fifth digit with previous cultures po sitive for Enterococcus faecalis #8. Recent GI blood loss anemia, with no clear indication of recurrence of active GI bleeding, current hemoglobin is 8.3, patient was treated medically, with no endoscopic studies #9. History of chronic atrial fibrillation with history of permanent pacemaker insertion #10. Chronic congestive heart failure with mild impairment of systolic function with most recent echocardiogram showing EF of 45-50%, mild to moderate mitral regurgitation, moderate pulmonary hypertension with right-sided pressures of 42 mmHg #11. History of coronary artery disease with previous stenting #12. History of diabetes mellitus with diabetic neuropathy #13. History of peripheral arterial disease bilaterally, with previous history of bilateral lower extremity arterial intervention #14. Previous history of smoking, currently in remission Plan: The patient was seen and evaluated by Dr. Kaur. Chest x-ray improved. She is improved clinically. Cleared for discharge from the pulmonary standpoint. Plan is for subacute rehabilitation at [facility]. Trinh, the cosigning physician, performed a history & physical examination of the patient. Lungs sounds with few scattered rhonchi. Maintaining good O2 saturations in the 90s on room air. I discussed the assessment and plan of care with my nurse practitioner, Lucinda Pearson. I attest to the above note as dictated by her.
[2019-05-23 12:01] LABS: Glucose,Whole Blood 430 mg/dL (75-99)
--- NOTE | 2019-05-23 12:03 | P.DS ---
Providers Date of admission: 05/19/19 01:04 Expected date of discharge: 05/23/19 Attending physician: Momo Medina Consults: 05/19/19 16:54 Consult Physician Routine Consulting Provider: Kalyn Kaur Consult Reason/Comments: Pneumonia Do you want consulting provider notified?: Yes Primary care physician: He Giraldo [facility] Course: Chief Complaint: Increased confusion History of presenting complaint: This is a 79-year-old patient of Dr. Giraldo. Chronic stable medical conditions include coronary artery disease with stent, osteoarthritis, diabetic peripheral neuropathy, rosacea, atrial fibrillation on eliquis. Patient long-standing smoker. Patient has chronic wounds on the toes of the left foot. Known significant peripheral arterial disease. She does follow at the wound care center. Was followed by Dr. Rose from podiatry. Patient was brought in from [facility]. daughter give a history at the bedside. Daughter did visit her yesterday. Patient has been using a walker. Looked okay yesterday. Patient in the evening patient became congested with a cough pulse ox to draw down to 70s. Patient's been having some chills. Patient more confused than baseline. Hence was sent in. UA was found to be infected appearing. Patient herself was not able to give much history. Patient's pulse ox in the ER was 74%. Was put on a nonrebreather . Admitted with type A influenza pneumonitis with secondary suspected bacterial pneumonia, acute toxic encephalopathy, acute hypoxic respiratory failure, sepsis. Started on Tamiflu, IV Zosyn bronchodilators. Responded well. Today-just feels a bit tired. Much improved. Tolerating a diet. Up in a chair. Care was discussed with the patient. Discussed with the social media executive. Discussion and discharge planning more than 35 minutes Consultation: Dr. Kaur from pulmonary Physical examination: VITAL SIGNS: 96.8, 71, 18, 112/68, 93% on room air GENERAL: Sitting up in a chair, comfortable EYES: Pupils equal. Conjunctiva normal. NECK: JVD not raised; masses not palpable. HEART: Irregular heart sounds, minimal edema. LUNGS: Respiratory rate increased, diminished breath sounds ABDOMEN: Soft, nontender, liver spleen not palpable, no masses palpable. PSYCH: Answering questions appropriately EXTREMITY: Noted dry gangrenous changes of the left small toe and ischemic changes in the other toes, especially the second toe INVESTIGATIONS, reviewed in the clinical context: White count 6.2 hemoglobin 8 potassium 3.7 creatinine 0.83 Previous testing White count 8.7 hemoglobin 8.3 platelets is 223 potassium 4.3 creatinine 0.90 Lactic acid 3.2 troponin I less than 0.012 proBNP 1360 Urine drug screen positive for opiates Influenza type A RNA-detected UA positive EKG tracing personally reviewed by me-atrial flutter rate controlled Chest x-ray film personally reviewed by me-multilobar infiltrate on the right side. pro calcitonin 2.27 Assessment: -Acute multilobar pneumonia, secondary to type A influenza including possible secondary suspect gram-negative organism, POA, responded well -Acute toxic encephalopathy, multifactorial, improved -Acute hypoxic respiratory failure, requiring Ventimask, secondary to pneumonia, POA, Improved -Acute sepsis from pneumonia, POA -Persistent atrial flutter chronically on eliquis -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 secondary to peripheral arterial disease -Chronic nicotine dependence patient active cigarette smoker -Coronary artery disease a prior history of stent -Primary osteoarthritis -Diabetic peripheral neuropathy -Severe peripheral arterial disease -Cognitive impairment -Chronic kidney dysfunction uses a walker -Diabetes mellitus type 2, uncontrolled with hyperglycemia Disposition: ECF/[facility] Patient Condition at Discharge: Stable Plan - Discharge Summary Discharge Rx Participant: No New Discharge Prescriptions: New Amoxicillin/Potassium Clav [Augmentin 875-125 Tablet] 1 tab PO Q12HR 3 Days #6 tab Dapagliflozin Propanediol [Farxiga] 5 mg PO DAILY Furosemide [Lasix] 40 mg PO BID@0900,1600 tab predniSONE 0 mg PO DIRECTED #12 tab Continue Montelukast [Singulair] 10 mg PO HS #30 tab Budesonide-Formot 160-4.5 Mcg [Symbicort 160-4.5 Mcg Inhaler] 2 puff INHALATION RT-BID@0800,1700 Losartan [Cozaar] 50 mg PO DAILY@0800 Cholecalciferol [Vitamin D3 (25 Mcg = 1000 Iu)] 2,000 unit PO DAILY@1700 Cyanocobalamin (Vitamin B-12) [Vitamin B-12] 1,000 mcg PO DAILY@1700 Acetaminophen [Tylenol Extra Strength] 500 mg PO Q6HR PRN PRN Reason: Moderate Pain Liraglutide [Victoza 2-Orlin] 1.8 mg SQ HS@2100 Rosuvastatin [Crestor] 20 mg PO HS@2100 OXcarbazepine [Trileptal] 300 mg PO BID@0800,1700 Clopidogrel [Plavix] 75 mg PO DAILY@0800 metFORMIN HCL [metFORMIN HCL ER] 750 mg PO BID@0800,1700 Na Phos,M-B/Na Phos,Di-Ba [Fleet Adult] 133 ml RECTAL DAILY PRN PRN Reason: Constipation Magnesium Hydroxide [Milk of Magnesia] 2,400 mg PO DAILY PRN PRN Reason: Constipation Bisacodyl [Dulcolax] 10 mg RECTAL DAILY PRN PRN Reason: Constipation Acetaminophen Tab [Tylenol] 650 mg PO Q4H PRN PRN Reason: Pain Or Fever > 100.5 INSULIN ASPART (NovoLOG) [NovoLOG (formulary)] See Protocol SQ ACHS Apixaban [Eliquis] 2.5 mg PO BID@0800,1700 Liquacel 30 ml PO DAILY Donepezil [Aricept] 5 mg PO DAILY@0800 Pregabalin [Lyrica] 150 mg PO BID@0800,2100 #6 cap HYDROcodone/APAP 7.5-325MG [[place] 7.5-325] 1 tab PO Q6H PRN #12 tab PRN Reason: Pain ALPRAZolam [Xanax] 0.25 mg PO HS #3 tab Changed Ipratropium-Albuterol Nebulize [Duoneb 0.5 mg-3 mg/3 ml Soln] 3 ml INHALATION TID #0 Discontinued Furosemide [Lasix] 20 mg PO DAILY@0800 Cefuroxime Axetil [Ceftin] 500 mg PO BID@0800,2100 Discharge Medication List Montelukast [Singulair] 10 mg PO HS #30 tab 09/20/16 [Rx] Budesonide-Formot 160-4.5 Mcg [Symbicort 160-4.5 Mcg Inhaler] 2 puff INHALATION RT-BID@0800,1700 10/05/16 [History] Cholecalciferol [Vitamin D3 (25 Mcg = 1000 Iu)] 2,000 unit PO DAILY@1700 07/18/17 [History] Cyanocobalamin (Vitamin B-12) [Vitamin B-12] 1,000 mcg PO DAILY@1700 07/18/17 [H istory] Losartan [Cozaar] 50 mg PO DAILY@0800 07/18/17 [History] Acetaminophen [Tylenol Extra Strength] 500 mg PO Q6HR PRN 07/20/17 [History] Liraglutide [Victoza 2-Orlin] 1.8 mg SQ HS@2100 12/26/18 [History] Clopidogrel [Plavix] 75 mg PO DAILY@0800 01/10/19 [History] OXcarbazepine [Trileptal] 300 mg PO BID@0800,1700 01/10/19 [History] Rosuvastatin [Crestor] 20 mg PO HS@2100 01/10/19 [History] metFORMIN HCL [metFORMIN HCL ER] 750 mg PO BID@0800,1700 02/15/19 [History] Acetaminophen Tab [Tylenol] 650 mg PO Q4H PRN 05/19/19 [History] Apixaban [Eliquis] 2.5 mg PO BID@0800,1700 05/19/19 [History] Bisacodyl [Dulcolax] 10 mg RECTAL DAILY PRN 05/19/19 [History] Donepezil [Aricept] 5 mg PO DAILY@0800 05/19/19 [History] INSULIN ASPART (NovoLOG) [NovoLOG (formulary)] See Protocol SQ ACHS 05/19/19 [History] Liquacel 30 ml PO DAILY 05/19/19 [History] Magnesium Hydroxide [Milk of Magnesia] 2,400 mg PO DAILY PRN 05/19/19 [History] Na Phos,M-B/Na Phos,Di-Ba [Fleet Adult] 133 ml RECTAL DAILY PRN 05/19/19 [History] ALPRAZolam [Xanax] 0.25 mg PO HS #3 tab 05/23/19 [Rx] Amoxicillin/Potassium Clav [Augmentin 875-125 Tablet] 1 tab PO Q12HR 3 Days #6 tab 05/23/19 [Rx] Dapagliflozin Propanediol [Farxiga] 5 mg PO DAILY 05/23/19 [Rx] Furosemide [Lasix] 40 mg PO BID@0900,1600 tab 05/23/19 [Rx] HYDROcodone/APAP 7.5-325MG [[place] 7.5-325] 1 tab PO Q6H PRN #12 tab 05/23/19 [Rx] Ipratropium-Albuterol Nebulize [Duoneb 0.5 mg-3 mg/3 ml Soln] 3 ml INHALATION TID #0 05/23/19 [Rx] Pregabalin [Lyrica] 150 mg PO BID@0800,2100 #6 cap 05/23/19 [Rx] predniSONE 0 mg PO DIRECTED #12 tab 05/23/19 [Rx] Follow up Appointment(s)/Referral(s): Heath Adames DO [STAFF PHYSICIAN] - 1-2 Days He Giraldo MD [Primary Care Provider] - As Needed Activity/Diet/Wound Care/Special Instructions: chandan
[2019-05-23 12:41] VITALS: BP 138/77; PULSE 84; RESP 17; TEMP 97
[2019-05-23] MEDS ORDERED: INSULIN ASPART (NovoLOG) 100 UNIT/ML VIAL SQ ONE (13:09)
== END 2019-05-23 14:45 | disposition home or self-care (01) | DRG 871 ==
LOC: EC 23:08 → 3SCARD 05-19 01:04 → 5NMEDONC 05-20 16:54
PROVIDERS: ADMIT Hospitalist; ATTEND Hospitalist
PROC: 5A09557 Assistance with Respiratory Ventilation, Greater than 96 Consecutive Hours, Continuous Positive Airway Pressure (ICD-10-PCS; principal; 2019-05-19)
DX: A41.59 Other Gram-negative sepsis (principal); G92 Toxic encephalopathy; J96.01 Acute respiratory failure with hypoxia; I50.23 Acute on chronic systolic (congestive) heart failure; J10.08 Influenza due to other identified influenza virus with other specified pneumonia; J15.6 Pneumonia due to other Gram-negative bacteria; E11.52 Type 2 diabetes mellitus with diabetic peripheral angiopathy with gangrene; J44.1 Chronic obstructive pulmonary disease with (acute) exacerbation; J44.0 Chronic obstructive pulmonary disease with (acute) lower respiratory infection; E87.2 Acidosis; I48.92 Unspecified atrial flutter; L89.302 Pressure ulcer of unspecified buttock, stage 2; E11.42 Type 2 diabetes mellitus with diabetic polyneuropathy; I25.10 Atherosclerotic heart disease of native coronary artery without angina pectoris; I34.0 Nonrheumatic mitral (valve) insufficiency; I27.20 Pulmonary hypertension, unspecified; F17.210 Nicotine dependence, cigarettes, uncomplicated; M19.91 Primary osteoarthritis, unspecified site; E11.621 Type 2 diabetes mellitus with foot ulcer; R41.89 Other symptoms and signs involving cognitive functions and awareness; E11.65 Type 2 diabetes mellitus with hyperglycemia; L71.9 Rosacea, unspecified; Z79.01 Long term (current) use of anticoagulants; Z79.02 Long term (current) use of antithrombotics/antiplatelets; Z79.4 Long term (current) use of insulin; I25.2 Old myocardial infarction; Z90.49 Acquired absence of other specified parts of digestive tract; Z88.5 Allergy status to narcotic agent; Z88.8 Allergy status to other drugs, medicaments and biological substances; Z79.51 Long term (current) use of inhaled steroids; Z79.899 Other long term (current) drug therapy; Z82.49 Family history of ischemic heart disease and other diseases of the circulatory system; Z83.3 Family history of diabetes mellitus; Z90.710 Acquired absence of both cervix and uterus; Z95.0 Presence of cardiac pacemaker; Z95.5 Presence of coronary angioplasty implant and graft
CPT/HCPCS: 36415; 36600; 51702; 70450; 71045; 71046; 80048; 80053; 80306; 80320; 81001; 82140; 82550; 82805; 83036; 83605; 83880; 84145; 84484; 85025; 85027; 85610; 85730; 87040; 87077; 87086; 87186; 87502; 93005; 94640; 94660; 94760; 96365; 96366; 96368; 96375; 99291

== ENCOUNTER 2019-06-13 12:32 | Inpatient (IN) | payer MEDICARE, OTHER ==
[2019-06-13 16:45] LABS: Glucose,Whole Blood 231 mg/dL (75-99)
[2019-06-13] MEDS: HYDROcodone/APAP 7.5-325MG 1 EACH TAB PO PRN ×2 (17:48→23:26)
[2019-06-13 20:25] LABS: Glucose,Whole Blood 175 mg/dL (75-99)
[2019-06-13] MEDS: ATORVASTATIN 40 MG TAB PO SCH (20:25)
[2019-06-13] MEDS: MONTELUKAST 10 MG TAB PO SCH (20:25)
[2019-06-13] MEDS: PREGABALIN 75 MG CAP PO SCH (20:25)
[2019-06-13] MEDS: IPRATROPIUM-ALBUTEROL 3 ML NEB INHALATION SCH (20:30)
[2019-06-13] MEDS: INSULIN ASPART (NovoLOG) 100 UNIT/ML VIAL SQ SCH (20:31)
[2019-06-13] MEDS: ALPRAZolam 0.25 MG TAB PO PRN (21:39)
--- NOTE | 2019-06-13 22:52 | P.HPIM ---
History of Present Illness H&P Date: 06/13/19 Chief Complaint: Left foot cold History of presenting complaint: This is a 79-year-old patient of Dr. Giraldo. Chronic stable medical conditions include coronary artery disease with stent, osteoarthritis, diabetic peripheral neuropathy, rosacea, atrial fibrillation on eliquis. Patient long-standing smoker. Patient has chronic wounds on the toes of the left foot. Known significant peripheral arterial disease. She does follow at the wound care center. Was followed by Dr. Rose from podiatry. Does use a walker. Patient was at the wound Center. Seen by the wound care [employer]ELINE SUPERINTENDENT Jagruti. It was assessment of the patient's left foot was cold and then usual. Patient has been seen by Dr. Aguilera. Patient was admitted for further management. He was consulted. Patient's pain in the left foot is not more than her baseline. No fever no chills. Review of systems: GEN.: Tired EYES: None HEENT: None NECK: None RESPIRATORY: None CARDIOVASCULAR: None GASTROINTESTINAL: None GENITOURINARY: None MUSCULOSKELETAL: Some joint pains LYMPHATICS: None HEMATOLOGICAL: None PSYCHIATRY: Forgetful NEUROLOGICAL: None Past medical history to include: COPD, left foot ulcers, peripheral artery disease, atrial fibrillation, coronary artery disease with stent,, diabetic peripheral neuropathy, Social history: Patient being smoking over 65 years, At [facility] Physical examination: VITAL SIGNS: 98.5, 71, 17, blood pressure 130/62, 94% on room air GENERAL: BMI 26.6, laying in bed awake tired EYES: Pupils equal. Conjunctiva normal. HEENT: External appearance of nose and ears normal, oral cavity dry NECK: JVD not raised; masses not palpable. HEART: Irregular heart sounds, minimal edema. LUNGS: Respiratory rate normal diminished breath sounds ABDOMEN: Soft, nontender, liver spleen not palpable, no masses palpable. PSYCH: Able to answer some questions. Forgetful NEUROLOGICAL: Cranial nerves grossly intact; no facial asymmetry, LYMPHATICS: No lymph nodes palpable in the axilla and neck EXTREMITY: Noted dry gangrenous changes of the left small toe and ischemic changes in the other toes, and the third toe, discoloration of the first and second toe. Poor distal pulses INVESTIGATIONS, reviewed in the clinical context: Labs pending Assessment: -Possible acute on chronic ischemic changes to left foot with already compromise left foot circulation being followed by Dr. Aguilera. Patient is currently on eliquis -Persistent atrial flutter chronically on eliquis -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 secondary to peripheral arterial disease -Chronic nicotine dependence patient active cigarette smoker -Persistent atrial fibrillation chronically on eliquis -Coronary artery disease a prior history of stent -Primary osteoarthritis -Diabetic peripheral neuropathy -Severe peripheral arterial disease -Cognitive impairment -Chronic gait dysfunction uses a walker Plan: Home medications resumed. Care was discussed with the patient. Dr. Aguilera was consulted. Care was discussed with the patient. Past Medical History Past Medical History: Heart Failure, COPD, Diabetes Mellitus, Diabetes Mellitus, Myocardial Infarction (NE), Myocardial Infarction (NE), Osteoarthritis (OA), Respiratory Disorder, Skin Disorder, Vascular Disorder Additional Past Medical History / Comment(s): Leg pain, Trigeminal Neuralgia, Diabetic Neuropathy, NE 1994, ROSCACEA; Hypoxic Respiratory Failure; Raynauds; PVD; Anemia Last Myocardial Infarction Date:: 1994 History of Any Multi-Drug Resistant Organisms: None Reported Past Surgical History: Appendectomy, Cholecystectomy, Heart Catheterization With Stent, Hysterectomy, Orthopedic Surgery, Pacemaker Additional Past Surgical History / Comment(s): Arthrectomy rt leg, Angioplasty, Pacemaker August 2016, left Foot Surgery, one heart stent Past Anesthesia/Blood Transfusion Reactions: No Reported Reaction Date of Last Stent Placement:: 1994 Type of Cardiac Device: Permanent Pacemaker Device Placement Date:: August 2016 Past Psychological History: No Psychological Hx Reported Additional Psychological History / Comment(s): 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 No experience. No travel. No animal exposures Smoking Status: Former smoker Past Alcohol Use History: None Reported Additional Past Alcohol Use History / Comment(s): occassional cigarette - about 3 a day. Started smoking in 1952. Past Drug Use History: None Reported - Past Family History Father Family Medical History: Myocardial Infarction (NE) Mother Family Medical History: Congestive Heart Failure (CHF), CVA/TIA, Diabetes Mellitus Medications and Allergies Home Medications Medication Instructions Recorded Confirmed Type Montelukast [Singulair] 10 mg PO HS #30 tab 09/20/16 06/13/19 Rx Budesonide-Formot 160-4.5 Mcg 2 puff INHALATION RT-BID@0800,1700 10/05/16 06/13/19 History [Symbicort 160-4.5 Mcg Inhaler] Cholecalciferol [Vitamin D3 (25 2,000 unit PO DAILY@1700 07/18/17 06/13/19 History Mcg = 1000 Iu)] Cyanocobalamin (Vitamin B-12) 1,000 mcg PO DAILY@1700 07/18/17 06/13/19 History [Vitamin B-12] Losartan [Cozaar] 50 mg PO DAILY@0800 07/18/17 06/13/19 History Acetaminophen [Tylenol Extra 500 mg PO Q6HR PRN 07/20/17 06/13/19 History Strength] Liraglutide [Victoza 2-Orlin] 1.8 mg SQ HS@209912/26/18 06/13/19 History Clopidogrel [Plavix] 75 mg PO DAILY@0800 01/10/19 06/13/19 History OXcarbazepine [Trileptal] 300 mg PO BID@0800,1700 01/10/19 06/13/19 History Rosuvastatin [Crestor] 20 mg PO HS@209901/10/19 06/13/19 History metFORMIN HCL [metFORMIN HCL ER] 750 mg PO BID@0800,1700 02/15/19 06/13/19 History Donepezil [Aricept] 5 mg PO DAILY@0800 05/19/19 06/13/19 History HYDROcodone/APAP 7.5-325MG [[place] 1 tab PO Q6H PRN #12 tab 05/23/19 06/13/19 Rx 7.5-325] Pregabalin [Lyrica] 150 mg PO BID@0800,2100 #6 cap 05/23/19 06/13/19 Rx ALPRAZolam [Xanax] 0.25 mg PO HS PRN 06/13/19 06/13/19 History Apixaban [Eliquis] 5 mg PO BID 06/13/19 06/13/19 History Dapagliflozin Propanediol [Farxiga] 5 mg PO DAILY 06/13/19 06/13/19 History Furosemide [Lasix] 40 mg PO DAILY 06/13/19 06/13/19 History Ipratropium-Albuterol Nebulize 3 ml INHALATION RT-BID 06/13/19 06/13/19 History [Duoneb 0.5 mg-3 mg/3 ml Soln] Allergies Allergy/AdvReac Type Severity Reaction Status Date / Time codeine AdvReac Nausea & Verified 06/13/19 19:48 Vomiting sitagliptin [From ] AdvReac frequent Verified 06/13/19 19:48 UTI Physical Exam Vitals: Vital Signs Temp Pulse Pulse Resp BP Pulse Ox 06/13/19 20:43 84 06/13/19 20:34 80 06/13/19 19:34 98.5 F 71 17 130/62 94 L 06/13/19 15:30 70 18 06/13/19 14:45 98.8 F 70 18 106/59 91 L Intake and Output 06/13/19 06/13/19 06/13/19 06:59 14:59 22:59 Intake Total 500 Balance 500 Intake: Oral 500 Other: Voiding Method Toilet # Voids 1 Weight 72.575 kg Results Labs: Abnormal Lab Results - Last 24 Hours (Table) 06/13/19 06/13/19 Range/Units 16:43 20:24 POC Glucose (mg/dL) 231 H 175 H (75-99) mg/dL Thrombosis Risk Factor Assmnt - Choose All That Apply Each Factor Represents 1 point: Abnormal pulmonary function (COPD) Other Risk Factors: Yes Each Risk Factor Represents 3 Points: Age 75 years or older Thrombosis Risk Factor Assessment Total Risk Factor Score: 4 Thrombosis Risk Factor Assessment Level: Moderate Risk
[2019-06-14 00:22] LABS: Anisocytosis Slight; HCT 29.3 % (34.0-46.0); HGB 8.7 gm/dL (11.4-16.0); Hypochromasia Marked; MCH 24.2 pg (25.0-35.0); MCHC 29.6 g/dL (31.0-37.0); MCV 81.7 fL (80.0-100.0); Mean Platelet Volume 8.7; Microcytosis Slight; Platelet Count 279 k/uL (150-450); Poikilocytosis Slight; RBC 3.59 m/uL (3.80-5.40); RDW 19.7 % (11.5-15.5); WBC 7.8 k/uL (3.8-10.6)
[2019-06-14 00:25] LABS: Albumin 3.4 g/dL (3.5-5.0); Calcium 8.7 mg/dL (8.4-10.2); Potassium 3.8 mmol/L (3.5-5.1); Total Bilirubin 0.9 mg/dL (0.2-1.3); Total Protein 6.2 g/dL (6.3-8.2)
[2019-06-14 01:28] LABS: Eosinophils # (M) 0.16 k/uL (0-0.7); Large Platelets Present; Monocytes # (M) 0.78 k/uL (0-1.0); Neutrophils # (M) 4.37 k/uL (1.3-7.7); Neutrophils % (M) 56 %; Nucleated Red Blood Cells 0 /100 WBC (0-0); Total Cells Counted 100
[2019-06-14 01:29] LABS: Ovalocytes Present; Poikilocytosis (M) Present
[2019-06-14 01:30] LABS: Crenated RBC Present; Polychromasia Present
[2019-06-14 06:50] LABS: Glucose,Whole Blood 188 mg/dL (75-99)
[2019-06-14] MEDS: PREGABALIN 75 MG CAP PO SCH ×2 (07:14→20:43)
[2019-06-14] MEDS: metFORMIN 500 MG TAB PO SCH ×2 (07:14→17:30)
[2019-06-14] MEDS: FUROSEMIDE 40 MG TAB PO SCH (07:14)
[2019-06-14] MEDS: HYDROcodone/APAP 7.5-325MG 1 EACH TAB PO PRN ×2 (07:14→17:31)
[2019-06-14] MEDS: LOSARTAN 50 MG TAB PO SCH (07:14)
[2019-06-14] MEDS: DONEPEZIL 5 MG TAB PO SCH (07:15)
[2019-06-14] MEDS: INSULIN ASPART (NovoLOG) 100 UNIT/ML VIAL SQ SCH ×4 (07:16→20:43)
[2019-06-14] MEDS: OXcarbazepine 300 MG TAB PO SCH ×2 (07:16→17:29)
[2019-06-14] MEDS: IPRATROPIUM-ALBUTEROL 3 ML NEB INHALATION SCH ×2 (07:44→20:04)
[2019-06-14] MEDS: SYMBICORT 160-4.5 MCG INHALER INHALATION SCH ×2 (07:46→20:05)
[2019-06-14 11:35] LABS: Glucose,Whole Blood 196 mg/dL (75-99)
--- NOTE | 2019-06-14 15:30 | P.CON ---
Consult Note - . 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 This has been a gradual process for the patient. The patient has undergone romp ectomy and balloon dilation of her femoral popliteal segments on the left. She has been maintained on anticoagulants. She has a known history of dry gangrenous changes of the left fifth toe. She is complaining of occasional nocturnal discomfort. Physical examination revealed femoral pulse to be present on the left lower popliteal, DP and PT pulses are absent. Bluish discoloration of the toes of the left foot is noted with some dry ischemic changes of the left fifth toe. Patient can wiggle her toes. The forefoot is nontender to palpation. No open wounds are noted. I discussed the situation with the patient. We will plan for angiogram with attempt at thrombolyzes/thrombectomy/balloon dilation. The patient is at high risk for limb loss to matter what is done. The patient clearly understands this. Angiogram will be scheduled for either Sunday or Sunday of next week.
--- NOTE | 2019-06-14 16:30 | P.PN ---
Progress Note - Text Progress Note Date: 06/14/19 Chief Complaint: Left foot cold History of presenting complaint: This is a 79-year-old patient of Dr. Giraldo. Chronic stable medical conditions include coronary artery disease with stent, osteoarthritis, diabetic peripheral neuropathy, rosacea, atrial fibrillation on eliquis. Patient long-standing smoker. Patient has chronic wounds on the toes of the left foot. Known significant peripheral arterial disease. She does follow at the wound care center. Was followed by Dr. Rose from podiatry. Does use a walker. Patient was at the wound Center. Seen by the wound care [employer]UTTER [employer]KE LINING Jagruti. It was assessment of the patient's left foot was cold and then usual. Patient has been seen by Dr. Aguilera. Patient was admitted for further management. He was consulted. Patient's pain in the left foot is not more than her baseline. No fever no chills. Admitted with acute on chronic ischemic changes to the left foot. Patient is already on eliquis. Today-sitting up. Did tolerate her diet. No fever no chills. Left foot pain is controlled. Review of systems: Was done for constitutional, cardiovascular, GI, pulmonary. relevant finding as above Active Medications Acetaminophen (Tylenol Tab) 500 mg PO Q6HR PRN PRN Reason: Moderate Pain Hydrocodone Bitart/Acetaminophen ([place] 7.5-325) 1 each PO Q6H PRN PRN Reason: Pain Last Admin: 06/14/19 07:14 Dose: 1 each Documented by: Albuterol/Ipratropium (Duoneb 0.5 Mg-3 Mg/3 Ml Soln) 3 ml INHALATION RT-BID [facility] Last Admin: 06/14/19 07:44 Dose: 3 ml Documented by: Alprazolam (Xanax) 0.25 mg PO HS PRN PRN Reason: Anxiety Last Admin: 06/13/19 21:39 Dose: 0.25 mg Documented by: Atorvastatin Calcium (Lipitor) 40 mg PO HS@2100 [facility] Last Admin: 06/13/19 20:25 Dose: 40 mg Documented by: Budesonide/Formoterol Fumarate (Symbicort 160-4.5 Mcg Inhaler) 2 puff INHALATION RT-BID@0800,1700 [facility] Last Admin: 06/14/19 07:46 Dose: 2 puff Documented by: Cholecalciferol (Vitamin D3 (25 Mcg = 1000 Iu)) 2,000 unit PO DAILY@1700 [facility] Cyanocobalamin (Vitamin B-12) 1,000 mcg PO DAILY@1700 [facility] Donepezil HCl (Aricept) 5 mg PO DAILY@0800 [facility] Last Admin: 06/14/19 07:15 Dose: 5 mg Documented by: Furosemide (Lasix) 40 mg PO DAILY [facility] Last Admin: 06/14/19 07:14 Dose: 40 mg Documented by: Insulin Aspart (Novolog) 0 unit SQ [facility]; Protocol Last Admin: 06/14/19 12:14 Dose: 2 unit Documented by: Losartan Potassium (Cozaar) 50 mg PO DAILY@0800 [facility] Last Admin: 06/14/19 07:14 Dose: 50 mg Documented by: Metformin HCl (Glucophage) 1,000 mg PO BID@0800,1700 [facility] Last Admin: 06/14/19 07:14 Dose: 1,000 mg Documented by: Montelukast Sodium (Singulair) 10 mg PO HS [facility] Last Admin: 06/13/19 20:25 Dose: 10 mg Documented by: (Dapagliflozin Propanediol [Farxiga ] 5 Mg) 5 mg PO DAILY [facility] Last Admin: 06/14/19 12:13 Dose: Not Given Documented by: (Liraglutide [ Victoza 2-Orlin] 1.8 Mg) 1.8 mg SQ HS@2100 [facility] Last Admin: 06/13/19 20:21 Dose: Not Given Documented by: Oxcarbazepine (Trileptal) 300 mg PO BID@0800,1700 [facility] Last Admin: 06/14/19 07:16 Dose: 300 mg Documented by: Pregabalin (Lyrica) 150 mg PO BID@0800,2100 [facility] Last Admin: 06/14/19 07:14 Dose: 150 mg Documented by: Physical examination: VITAL SIGNS: 98.2, 81, 18, blood pressure 135/70, 97% on room air GENERAL: Sitting on the edge of the bed, comfortable EYES: Pupils equal. Conjunctiva normal. HEENT: External appearance of nose and ears normal, oral cavity dry NECK: JVD not raised; masses not palpable. HEART: Irregular heart sounds, minimal edema. LUNGS: Respiratory rate normal diminished breath sounds ABDOMEN: Soft, nontender, liver spleen not palpable, no masses palpable. PSYCH: Able to answer some questions. Forgetful EXTREMITY: Noted dry gangrenous changes of the left small toe and ischemic changes in the other toes, and the third toe, discoloration of the first and second toe. Poor distal pulses INVESTIGATIONS, reviewed in the clinical context: White count 7.8 hemoglobin 8.7 potassium 3.8 creatinine 0.75 Assessment: - acute on chronic ischemic changes to left foot with already compromise left foot circulation being followed by Dr. Aguilera. Patient is currently on eliquis -Persistent atrial flutter chronically on eliquis -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 secondary to peripheral arterial disease -Chronic nicotine dependence patient active cigarette smoker -Persistent atrial fibrillation chronically on eliquis -Coronary artery disease a prior history of stent -Primary osteoarthritis -Diabetic peripheral neuropathy -Severe peripheral arterial disease -Mild Cognitive impairment -Chronic gait dysfunction uses a walker Plan: As per vascular surgery will do intervention either Sunday or Sunday. In view of the we'll DC the eliquis and put the patient on Lovenox in the meantime. Does before the procedure will be held
[2019-06-14 17:15] LABS: Glucose,Whole Blood 212 mg/dL (75-99)
[2019-06-14] MEDS: CYANOCOBALAMIN 500 MCG TAB PO SCH (17:29)
[2019-06-14] MEDS: CHOLECALCIFEROL 1,000 UNIT TAB PO SCH (17:29)
[2019-06-14 20:38] LABS: Glucose,Whole Blood 182 mg/dL (75-99)
[2019-06-14] MEDS: ATORVASTATIN 40 MG TAB PO SCH (20:42)
[2019-06-14] MEDS: MONTELUKAST 10 MG TAB PO SCH (20:43)
[2019-06-14] MEDS: ENOXAPARIN 80 MG/0.8 ML SYRINGE SQ SCH (20:53)
[2019-06-15 06:56] LABS: Glucose,Whole Blood 165 mg/dL (75-99)
[2019-06-15] MEDS: PREGABALIN 75 MG CAP PO SCH ×2 (07:36→19:53)
[2019-06-15] MEDS: ACETAMINOPHEN TAB 500 MG TAB PO PRN ×3 (07:36→19:53)
[2019-06-15] MEDS: INSULIN ASPART (NovoLOG) 100 UNIT/ML VIAL SQ SCH ×4 (07:38→20:48)
[2019-06-15] MEDS: metFORMIN 500 MG TAB PO SCH ×2 (07:38→17:17)
[2019-06-15] MEDS: ENOXAPARIN 80 MG/0.8 ML SYRINGE SQ SCH ×2 (07:41→19:53)
[2019-06-15] MEDS: DONEPEZIL 5 MG TAB PO SCH (07:45)
[2019-06-15] MEDS: OXcarbazepine 300 MG TAB PO SCH ×2 (07:46→17:17)
[2019-06-15] MEDS: SYMBICORT 160-4.5 MCG INHALER INHALATION SCH ×2 (08:29→20:38)
[2019-06-15] MEDS: IPRATROPIUM-ALBUTEROL 3 ML NEB INHALATION SCH ×2 (08:30→20:37)
[2019-06-15] MEDS: LOSARTAN 50 MG TAB PO SCH (11:58)
[2019-06-15] MEDS: FUROSEMIDE 40 MG TAB PO SCH (11:59)
[2019-06-15 12:00] LABS: Glucose,Whole Blood 154 mg/dL (75-99)
[2019-06-15 17:15] LABS: Glucose,Whole Blood 252 mg/dL (75-99)
[2019-06-15] MEDS: CHOLECALCIFEROL 1,000 UNIT TAB PO SCH (17:17)
[2019-06-15] MEDS: CYANOCOBALAMIN 500 MCG TAB PO SCH (17:17)
[2019-06-15] MEDS: MONTELUKAST 10 MG TAB PO SCH (19:52)
[2019-06-15] MEDS: ATORVASTATIN 40 MG TAB PO SCH (19:53)
[2019-06-15 20:44] LABS: Glucose,Whole Blood 144 mg/dL (75-99)
--- NOTE | 2019-06-15 20:47 | P.PN ---
Progress Note - Text Progress Note Date: 06/15/19 Chief Complaint: Left foot cold History of presenting complaint: This is a 79-year-old patient of Dr. Giraldo. Chronic stable medical conditions include coronary artery disease with stent, osteoarthritis, diabetic peripheral neuropathy, rosacea, atrial fibrillation on eliquis. Patient long-standing smoker. Patient has chronic wounds on the toes of the left foot. Known significant peripheral arterial disease. She does follow at the wound care center. Was followed by Dr. Rose from podiatry. Does use a walker. Patient was at the wound Center. Seen by the wound care DIESEL RETROFIT INSTALLER Jagruti. It was assessment of the patient's left foot was cold and then usual. Patient has been seen by Dr. Aguilera. Patient was admitted for further management. He was consulted. Patient's pain in the left foot is not more than her baseline. No fever no chills. Admitted with acute on chronic ischemic changes to the left foot. Patient is already on eliquis.-Held switched to Lovenox. Today-some pain in the affected foot today. On Lovenox. Tolerated diet.. Review of systems: Was done for constitutional, cardiovascular, GI, pulmonary. relevant finding as above Active Medications Acetaminophen (Tylenol Tab) 500 mg PO Q6HR PRN PRN Reason: Moderate Pain Last Admin: 06/15/19 19:53 Dose: 500 mg Documented by: Hydrocodone Bitart/Acetaminophen ([place] 7.5-325) 1 each PO Q6H PRN PRN Reason: Pain Last Admin: 06/14/19 17:31 Dose: 1 each Documented by: Albuterol/Ipratropium (Duoneb 0.5 Mg-3 Mg/3 Ml Soln) 3 ml INHALATION RT-BID [facility] Last Admin: 06/15/19 20:37 Dose: 3 ml Documented by: Alprazolam (Xanax) 0.25 mg PO HS PRN PRN Reason: Anxiety Last Admin: 06/13/19 21:39 Dose: 0.25 mg Documented by: Atorvastatin Calcium (Lipitor) 40 mg PO HS@2100 [facility] Last Admin: 06/15/19 19:53 Dose: 40 mg Documented by: Budesonide/Formoterol Fumarate (Symbicort 160-4.5 Mcg Inhaler) 2 puff INHALATION RT-BID@0800,1700 [facility] Last Admin: 03/22/20 20:38 Dose: Not Given Documented by: Cholecalciferol (Vitamin D3 (25 Mcg = 1000 Iu)) 2,000 unit PO DAILY@1700 [facility] Last Admin: 06/15/19 17:17 Dose: 2,000 unit Documented by: Cyanocobalamin (Vitamin B-12) 1,000 mcg PO DAILY@1700 [facility] Last Admin: 06/15/19 17:17 Dose: 1,000 mcg Documented by: Donepezil HCl (Aricept) 5 mg PO DAILY@0800 [facility] Last Admin: 06/15/19 07:45 Dose: 5 mg Documented by: Enoxaparin Sodium (Lovenox) 80 mg SQ Q12HR [facility] Last Admin: 06/15/19 19:53 Dose: 80 mg Documented by: Furosemide (Lasix) 40 mg PO DAILY [facility] Last Admin: 06/15/19 11:59 Dose: Not Given Documented by: Insulin Aspart (Novolog) 0 unit SQ [facility]; Protocol Last Admin: 06/15/19 17:17 Dose: 4 unit Documented by: Losartan Potassium (Cozaar) 50 mg PO DAILY@0800 [facility] Last Admin: 06/15/19 11:58 Dose: Not Given Documented by: Metformin HCl (Glucophage) 1,000 mg PO BID@0800,1700 [facility] Last Admin: 06/15/19 17:17 Dose: 1,000 mg Documented by: Montelukast Sodium (Singulair) 10 mg PO HS [facility] Last Admin: 06/15/19 19:52 Dose: 10 mg Documented by: (Dapagliflozin Propanediol [Farxiga ] 5 Mg) 5 mg PO DAILY [facility] Last Admin: 06/15/19 11:59 Dose: Not Given Documented by: (Liraglutide [ Victoza 2-Orlin] 1.8 Mg) 1.8 mg SQ HS@2100 [facility] Last Admin: 06/15/19 19:54 Dose: Not Given Documented by: Oxcarbazepine (Trileptal) 300 mg PO BID@0800,1700 [facility] Last Admin: 06/15/19 17:17 Dose: 300 mg Documented by: Pregabalin (Lyrica) 150 mg PO BID@0800,2100 [facility] Last Admin: 06/15/19 19:53 Dose: 150 mg Documented by: Physical examination: VITAL SIGNS: 97.8, 73, 18, blood pressure 118/68, 97% on room air GENERAL: Laying in bed EYES: Pupils equal. Conjunctiva normal. HEENT: External appearance of nose and ears normal, oral cavity dry NECK: JVD not raised; masses not palpable. HEART: Irregular heart sounds, minimal edema. LUNGS: Respiratory rate normal diminished breath sounds ABDOMEN: Soft, nontender, liver spleen not palpable, no masses palpable. PSYCH: Answering questions EXTREMITY: Noted dry gangrenous changes of the left small toe and ischemic changes in the other toes, and the third toe, discoloration of the first and second toe. Poor distal pulses INVESTIGATIONS, reviewed in the clinical context: White count 7.8 hemoglobin 8.7 potassium 3.8 creatinine 0.75 Assessment: - acute on chronic ischemic changes to left foot with already compromise left foot circulation being followed by Dr. Aguilera. Eliquis held -Persistent atrial flutter chronically on eliquis -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 secondary to peripheral arterial disease -Chronic nicotine dependence patient active cigarette smoker -Persistent atrial fibrillation chronically on eliquis -Coronary artery disease a prior history of stent -Primary osteoarthritis -Diabetic peripheral neuropathy -Severe peripheral arterial disease -Mild Cognitive impairment -Chronic gait dysfunction uses a walker Plan: Continue patient on Lovenox. Discussed with patient at length. Also briefly with Dr. Wilcox. Patient may benefit from amputation as a symptoms or other significant medical small vessel disease with not improve with her current vascular status. Will discuss with Dr. Aguilera.
[2019-06-15] MEDS: ALPRAZolam 0.25 MG TAB PO PRN (21:46)
[2019-06-16] MEDS: ACETAMINOPHEN TAB 500 MG TAB PO PRN ×2 (01:59→10:37)
[2019-06-16 07:14] LABS: Glucose,Whole Blood 195 mg/dL (75-99)
[2019-06-16] MEDS: INSULIN ASPART (NovoLOG) 100 UNIT/ML VIAL SQ SCH ×4 (08:34→21:32)
[2019-06-16] MEDS: metFORMIN 500 MG TAB PO SCH ×2 (08:35→16:59)
[2019-06-16] MEDS: ENOXAPARIN 80 MG/0.8 ML SYRINGE SQ SCH ×3 (08:35→20:02)
[2019-06-16] MEDS: FUROSEMIDE 40 MG TAB PO SCH (08:35)
[2019-06-16] MEDS: PREGABALIN 75 MG CAP PO SCH ×2 (08:35→19:55)
[2019-06-16] MEDS: DONEPEZIL 5 MG TAB PO SCH (08:35)
[2019-06-16] MEDS: LOSARTAN 50 MG TAB PO SCH (08:35)
[2019-06-16] MEDS: OXcarbazepine 300 MG TAB PO SCH ×2 (08:35→16:59)
[2019-06-16] MEDS: IPRATROPIUM-ALBUTEROL 3 ML NEB INHALATION SCH ×2 (08:59→20:57)
[2019-06-16] MEDS: SYMBICORT 160-4.5 MCG INHALER INHALATION SCH ×2 (08:59→20:57)
[2019-06-16 11:32] LABS: Glucose,Whole Blood 142 mg/dL (75-99)
--- NOTE | 2019-06-16 11:54 | P.PN ---
Subjective Progress Note Date: 06/16/19 Patient seen and examined the bedside. Patient was up ambulating to the restroom using walker and assistance. Patient states she has significant pain to the left foot and toes. No acute changes through the night. Patient denies any fever, shortness of breath, or chest pain. ABIs completed showing minimal to no arterial flow to the left lower foot and toes. Objective - Vital Signs Vital signs: Vital Signs Temp 98.4 F 06/16/19 07:00 Pulse 66 06/16/19 07:00 Resp 15 06/16/19 07:00 BP 139/67 06/16/19 07:00 Pulse Ox 98 06/16/19 07:00 Intake & Output 06/15/19 06/16/19 06/16/19 18:59 06:59 18:59 Intake Total 400 Balance 400 Intake: Oral 400 Other: Voiding Method Toilet Toilet # Voids 2 1 # Bowel Movements 1 - Exam General appearance: The patient is alert, somewhat confused, in no acute distress. HET: Head is normocephalic and atraumatic. Neck: Supple without lymphadenopathy. Trachea midline. Heart: S1 S2. Regular rate and rhythm. Lungs: No crackles or wheezes are heard. Extremities: Left lower extremity with femoral and popliteal pulses, no palpable DP or PT pulses. DP and PT without doppler signal. Bluish pale discoloration to toes on left foot, fifth toe with dry ischemic changes. Ulceration to the medial side of the left great toe, without drainage or odor. Neurological: Strength and sensation are grossly intact. - Labs CBC & Chem 7: 06/17/19 05:55 06/17/19 05:55 Labs: Abnormal Lab Results - Last 24 Hours (Table) 06/15/19 06/15/19 06/15/19 Range/Units 11:59 17:06 20:42 POC Glucose (mg/dL) 154 H 252 H 144 H (75-99) mg/dL 06/16/19 Range/Units 07:13 POC Glucose (mg/dL) 195 H (75-99) mg/dL Assessment and Plan Assessment: 1. Chronic left foot ischemia, with dry gangrenous changes to the left fifth toe 2. Chronic diabetic ulcerations 3. Diabetes mellitus with neuropathy Plan: Patient scheduled for angiogram with possible thrombolysis/thrombectomy/balloon dilation tomorrow with Dr. Aguilera. Nothing by mouth after midnight. Hold morning dose of lovenox. Further recommendations to follow. The above dictated assessment and findings were discussed with Dr. Aguilera. The impression and plan of care have been directed as dictated.
[2019-06-16] MEDS: HYDROcodone/APAP 7.5-325MG 1 EACH TAB PO PRN ×2 (14:01→21:36)
[2019-06-16] MEDS: CHOLECALCIFEROL 1,000 UNIT TAB PO SCH (16:17)
[2019-06-16] MEDS: CYANOCOBALAMIN 500 MCG TAB PO SCH (16:17)
[2019-06-16 16:28] LABS: Glucose,Whole Blood 178 mg/dL (75-99)
[2019-06-16] MEDS: ATORVASTATIN 40 MG TAB PO SCH (19:56)
[2019-06-16] MEDS: MONTELUKAST 10 MG TAB PO SCH (19:56)
[2019-06-16] MEDS: ALPRAZolam 0.25 MG TAB PO PRN (19:59)
[2019-06-16 20:42] LABS: Glucose,Whole Blood 158 mg/dL (75-99)
--- NOTE | 2019-06-16 22:48 | P.PN ---
Progress Note - Text Progress Note Date: 06/16/19 Chief Complaint: Left foot cold History of presenting complaint: This is a 79-year-old patient of Dr. Giraldo. Chronic stable medical conditions include coronary artery disease with stent, osteoarthritis, diabetic peripheral neuropathy, rosacea, atrial fibrillation on eliquis. Patient long-standing smoker. Patient has chronic wounds on the toes of the left foot. Known significant peripheral arterial disease. She does follow at the wound care center. Was followed by Dr. Rose from podiatry. Does use a walker. Patient was at the wound Center. Seen by the wound care [employer] Jagruti. It was assessment of the patient's left foot was cold and then usual. Patient has been seen by Dr. Aguilera. Patient was admitted for further management. He was consulted. Patient's pain in the left foot is not more than her baseline. No fever no chills. Admitted with acute on chronic ischemic changes to the left foot. Patient is already on eliquis.-Held switched to Lovenox. Today-Less pain in the affected foot today. On Lovenox. Tolerated diet.. Review of systems: Was done for constitutional, cardiovascular, GI, pulmonary. relevant finding as above Active Medications Acetaminophen (Tylenol Tab) 500 mg PO Q6HR PRN PRN Reason: Moderate Pain Last Admin: 06/16/19 10:37 Dose: 500 mg Documented by: Hydrocodone Bitart/Acetaminophen ([employer] 7.5-325) 1 each PO Q6H PRN PRN Reason: Pain Last Admin: 06/16/19 21:36 Dose: 1 each Documented by: Albuterol/Ipratropium (Duoneb 0.5 Mg-3 Mg/3 Ml Soln) 3 ml INHALATION RT-BID [facility] Last Admin: 06/16/19 20:57 Dose: 3 ml Documented by: Alprazolam (Xanax) 0.25 mg PO HS PRN PRN Reason: Anxiety Last Admin: 06/16/19 19:59 Dose: 0.25 mg Documented by: Atorvastatin Calcium (Lipitor) 40 mg PO HS@2100 [facility] Last Admin: 06/16/19 19:56 Dose: 40 mg Documented by: Budesonide/Formoterol Fumarate (Symbicort 160-4.5 Mcg Inhaler) 2 puff INHALATION RT-BID@0800,1700 [facility] Last Admin: 03/23/20 20:57 Dose: 2 puff Documented by: Cholecalciferol (Vitamin D3 (25 Mcg = 1000 Iu)) 2,000 unit PO DAILY@1700 [facility] Last Admin: 06/16/19 16:17 Dose: 2,000 unit Documented by: Cyanocobalamin (Vitamin B-12) 1,000 mcg PO DAILY@1700 [facility] Last Admin: 06/16/19 16:17 Dose: 1,000 mcg Documented by: Donepezil HCl (Aricept) 5 mg PO DAILY@0800 [facility] Last Admin: 06/16/19 08:35 Dose: 5 mg Documented by: Enoxaparin Sodium (Lovenox) 80 mg SQ Q12HR [facility] Last Admin: 06/16/19 20:02 Dose: Not Given Documented by: Furosemide (Lasix) 40 mg PO DAILY [facility] Last Admin: 06/16/19 08:35 Dose: 40 mg Documented by: Insulin Aspart (Novolog) 0 unit SQ [facility]; Protocol Last Admin: 06/16/19 21:32 Dose: 1 unit Documented by: Losartan Potassium (Cozaar) 50 mg PO DAILY@0800 [facility] Last Admin: 06/16/19 08:35 Dose: 50 mg Documented by: Metformin HCl (Glucophage) 1,000 mg PO BID@0800,1700 [facility] Last Admin: 06/16/19 16:59 Dose: 1,000 mg Documented by: Montelukast Sodium (Singulair) 10 mg PO HS [facility] Last Admin: 06/16/19 19:56 Dose: 10 mg Documented by: (Dapagliflozin Propanediol [Farxiga ] 5 Mg) 5 mg PO DAILY [facility] Last Admin: 06/16/19 10:06 Dose: Not Given Documented by: (Liraglutide [ Victoza 2-Orlin] 1.8 Mg) 1.8 mg SQ HS@2100 [facility] Last Admin: 06/16/19 19:56 Dose: Not Given Documented by: Oxcarbazepine (Trileptal) 300 mg PO BID@0800,1700 [facility] Last Admin: 06/16/19 16:59 Dose: 300 mg Documented by: Pregabalin (Lyrica) 150 mg PO BID@0800,2100 [facility] Last Admin: 06/16/19 19:55 Dose: 150 mg Documented by: Physical examination: VITAL SIGNS: 98.4, 77, 18, 90/54, 98% on room air GENERAL: Laying in bed EYES: Pupils equal. Conjunctiva normal. HEENT: External appearance of nose and ears normal, oral cavity dry NECK: JVD not raised; masses not palpable. HEART: Irregular heart sounds, minimal edema. LUNGS: Respiratory rate normal diminished breath sounds ABDOMEN: Soft, nontender, liver spleen not palpable, no masses palpable. PSYCH: Answering questions EXTREMITY: Noted dry gangrenous changes of the left small toe and ischemic changes in the other toes, and the third toe, discoloration of the first and second toe. Poor distal pulses INVESTIGATIONS, reviewed in the clinical context: White count 7.8 hemoglobin 8.7 potassium 3.8 creatinine 0.75 Assessment: - acute on chronic ischemic changes to left foot with already compromise left foot circulation being followed by Dr. Aguilera. Eliquis held -Persistent atrial flutter chronically on eliquis -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 secondary to peripheral arterial disease -Chronic nicotine dependence patient active cigarette smoker -Persistent atrial fibrillation chronically on eliquis -Coronary artery disease a prior history of stent -Primary osteoarthritis -Diabetic peripheral neuropathy -Severe peripheral arterial disease -Mild Cognitive impairment -Chronic gait dysfunction uses a walker Plan: We'll hold the Lovenox tomorrow morning. Patient scheduled for angiogram tomorrow and subsequent intervention depending on findings. Discussed the patient.
[2019-06-17] MEDS: HYDROcodone/APAP 7.5-325MG 1 EACH TAB PO PRN ×3 (04:16→20:03)
[2019-06-17 06:23] LABS: Anisocytosis Moderate; HCT 27.9 % (34.0-46.0); HGB 8.3 gm/dL (11.4-16.0); Hypochromasia Marked; MCH 24.2 pg (25.0-35.0); MCHC 29.7 g/dL (31.0-37.0); MCV 81.5 fL (80.0-100.0); Mean Platelet Volume 8.8; Microcytosis Slight; Platelet Count 261 k/uL (150-450); Poikilocytosis Slight; RBC 3.43 m/uL (3.80-5.40); RDW 21.2 % (11.5-15.5); WBC 7.3 k/uL (3.8-10.6)
[2019-06-17 06:32] LABS: African American GFR (CKD) >90 (>60 ml/min/1.73 sqM); Anion Gap 8 mmol/L; Blood Urea Nitrogen 17 mg/dL (7-17); Calcium 8.5 mg/dL (8.4-10.2); Carbon Dioxide 25 mmol/L (22-30); Chloride 105 mmol/L (98-107); Glucose 144 mg/dL (74-99); Non-African American GFR(CKD) 84 (>60 ml/min/1.73 sqM); Potassium 3.5 mmol/L (3.5-5.1); Sodium 138 mmol/L (137-145)
[2019-06-17 07:10] LABS: Glucose,Whole Blood 165 mg/dL (75-99)
[2019-06-17] MEDS: INSULIN ASPART (NovoLOG) 100 UNIT/ML VIAL SQ SCH ×4 (07:14→20:00)
[2019-06-17] MEDS: SYMBICORT 160-4.5 MCG INHALER INHALATION SCH ×3 (07:48→18:59)
[2019-06-17] MEDS: IPRATROPIUM-ALBUTEROL 3 ML NEB INHALATION SCH ×2 (07:48→07:51)
[2019-06-17] MEDS: metFORMIN 500 MG TAB PO SCH ×2 (08:55→18:25)
[2019-06-17] MEDS: MIDAZOLAM 2 MG/2 ML VIAL IVP ONE ×2 (09:22→10:10)
[2019-06-17] MEDS ORDERED: LIDOCAINE 1% INJ 10MG/ML (20 ML MDV) SQ ONE (09:22)
[2019-06-17] MEDS: fentaNYL (PF) 50 MCG/ML 2 ML AMP IVP ONE ×2 (09:22→10:05)
[2019-06-17 09:24] LABS: Eosinophils # (M) 0.22 k/uL (0-0.7); Lymphocytes # (M) 1.83 k/uL (1.0-4.8); Monocytes # (M) 0.66 k/uL (0-1.0); Neutrophils % (M) 63 %; Nucleated Red Blood Cells 0 /100 WBC (0-0); Total Cells Counted 100
[2019-06-17 09:25] LABS: Polychromasia Present
[2019-06-17] MEDS ORDERED: SODIUM CHLORIDE 0.9% 1,000 ML IV ONE (09:30)
[2019-06-17] MEDS ORDERED: ALTEPLASE BOLUS 1 MG/1 ML SYRINGE IV STA ×2 (09:42→09:44)
[2019-06-17] MEDS ORDERED: ALTEPLASE 2 MG VIAL (CATHFLO) IV STA ×2 (09:51→09:53)
[2019-06-17] MEDS: ALTEPLASE 10 MG in SODIUM CHLORIDE 0.9% 100 ML IA ONE ×2 (10:10→11:58)
[2019-06-17] MEDS ORDERED: HEPARIN SOD,PORK IN 0.45% NACL 25,000 UNIT in 0.45% NACL 1 250ML.BAG IV ONE (10:10)
[2019-06-17] MEDS ORDERED: ALTEPLASE 10 MG in SODIUM CHLORIDE 0.9% 100 ML IA ONE (10:10)
[2019-06-17] MEDS ORDERED: IOPAMIDOL-300 100ML BTL INJ ONE (10:10)
[2019-06-17 10:33] LABS: Glucose,Whole Blood 160 mg/dL (75-99)
--- NOTE | 2019-06-17 10:41 | IR ---
EXAMINATION TYPE: IR transcath infusion therapy DATE OF EXAM: 06/17/2019 CLINICAL HISTORY: Left leg arterial thrombus. TECHNIQUE: Fluoroscopy. COMPARISON: None. FINDINGS: Fluoroscopic guidance was provided during abdominal angiogram with left lower extremity ru noff procedure and subsequent intravascular thrombolysis performed by Dr. Aguilera. A total of 5.3 mi nute of fluoroscopic time was utilized during the procedure and 8 cine runs are acquired. Please refe r to procedure note for further details as I was not present or performed procedure. IMPRESSION: As Above.
[2019-06-17 11:03] LABS: Anisocytosis Moderate; Basophils % (A) 0 %; Eosinophils # (A) 0.2 k/uL (0-0.7); Eosinophils % (A) 2 %; HCT 29.2 % (34.0-46.0); HGB 8.3 gm/dL (11.4-16.0); Hypochromasia Marked; Lymphocytes # (A) 1.5 k/uL (1.0-4.8); Lymphocytes % (A) 23 %; MCH 23.4 pg (25.0-35.0); MCHC 28.5 g/dL (31.0-37.0); MCV 82.2 fL (80.0-100.0); Mean Platelet Volume 9.1; Microcytosis Slight; Monocytes # (A) 0.5 k/uL (0-1.0); Monocytes % (A) 7 %; Neutrophils # (A) 4.2 k/uL (1.3-7.7); Neutrophils % (A) 63 %; Platelet Count 259 k/uL (150-450); Poikilocytosis Slight; RBC 3.56 m/uL (3.80-5.40); RDW 21.2 % (11.5-15.5); WBC 6.7 k/uL (3.8-10.6)
[2019-06-17] MEDS: LOSARTAN 50 MG TAB PO SCH (11:15)
[2019-06-17] MEDS: OXcarbazepine 300 MG TAB PO SCH ×2 (11:15→18:48)
[2019-06-17] MEDS: DONEPEZIL 5 MG TAB PO SCH (11:15)
[2019-06-17] MEDS: PREGABALIN 75 MG CAP PO SCH ×2 (11:15→20:04)
[2019-06-17] MEDS: FUROSEMIDE 40 MG TAB PO SCH (11:15)
[2019-06-17 11:20] LABS: African American GFR (CKD) >90 (>60 ml/min/1.73 sqM); Blood Urea Nitrogen 16 mg/dL (7-17); Non-African American GFR(CKD) 84 (>60 ml/min/1.73 sqM)
[2019-06-17 11:34] LABS: INR 1.1 (<1.2); Partial Thromboplastin Time 23.7 sec (22.0-30.0); Prothrombin Time 11.2 sec (9.0-12.0)
[2019-06-17] MEDS: MORPHINE SULFATE 4 MG/ML SYRINGE IVP PRN ×3 (11:41→19:57)
[2019-06-17] MEDS: HEPARIN SOD,PORK IN 0.45% NACL 25,000 UNIT in 0.45% NACL 1 250ML.BAG IV SCH (11:59)
[2019-06-17 12:17] LABS: Glucose,Whole Blood 199 mg/dL (75-99)
[2019-06-17] MEDS ORDERED: ALBUTEROL INHALER 60 PUFF/8 GM INHALER (BULK) INHALATION PRN (12:54)
--- NOTE | 2019-06-17 13:28 | P.PN ---
Progress Note - Text Progress Note Date: 06/17/19 Chief Complaint: Left foot cold History of presenting complaint: This is a 79-year-old patient of Dr. Giraldo. Chronic stable medical conditions include coronary artery disease with stent, osteoarthritis, diabetic peripheral neuropathy, rosacea, atrial fibrillation on eliquis. Patient long-standing smoker. Patient has chronic wounds on the toes of the left foot. Known significant peripheral arterial disease. She does follow at the wound care center. Was followed by Dr. Rose from podiatry. Does use a walker. Patient was at the wound Center. Seen by the wound care [employer]PER[employer] Jagruti. It was assessment of the patient's left foot was cold and then usual. Patient has been seen by Dr. Aguilera. Patient was admitted for further management. He was consulted. Patient's pain in the left foot is not more than her baseline. No fever no chills. Admitted with acute on chronic ischemic changes to the left foot. Patient is already on eliquis.-Held switched to Lovenox. Today-taken to the operating room today. Found to have a thrombus from the groin down to the leg. Dr. Aguilera coronary. Started the patient IV heparin and TPA. Patient will to the ICU. Pain present in the lower extremity. Review of systems: Was done for constitutional, cardiovascular, GI, pulmonary. relevant finding as above Active Medications Acetaminophen (Tylenol Tab) 500 mg PO Q6HR PRN PRN Reason: Moderate Pain Last Admin: 06/16/19 10:37 Dose: 500 mg Documented by: Hydrocodone Bitart/Acetaminophen ([place] 7.5-325) 1 each PO Q6H PRN PRN Reason: Pain Last Admin: 06/17/19 12:50 Dose: 1 each Documented by: Albuterol Sulfate (Ventolin Hfa Inhaler) 2 puff INHALATION RT-QID PRN PRN Reason: Shortness Of Breath Or Wheezing Albuterol Sulfate (Ventolin Hfa Inhaler) 2 puff INHALATION RT-QID [facility] Alprazolam (Xanax) 0.25 mg PO HS PRN PRN Reason: Anxiety Last Admin: 06/16/19 19:59 Dose: 0.25 mg Documented by: Atorvastatin Calcium (Lipitor) 40 mg PO HS@2100 [facility] Last Admin: 06/16/19 19:56 Dose: 40 mg Documented by: Budesonide/Formoterol Fumarate (Symbicort 160-4.5 Mcg Inhaler) 2 puff INHALATION RT-BID@0800,1700 [facility] Last Admin: 06/17/19 07:52 Dose: Not Given Documented by: Cholecalciferol (Vitamin D3 (25 Mcg = 1000 Iu)) 2,000 unit PO DAILY@1700 [facility] Last Admin: 06/16/19 16:17 Dose: 2,000 unit Documented by: Cyanocobalamin (Vitamin B-12) 1,000 mcg PO DAILY@1700 [facility] Last Admin: 06/16/19 16:17 Dose: 1,000 mcg Documented by: Donepezil HCl (Aricept) 5 mg PO DAILY@0800 [facility] Last Admin: 06/17/19 11:15 Dose: Not Given Documented by: Furosemide (Lasix) 40 mg PO DAILY [facility] Last Admin: 06/17/19 11:15 Dose: Not Given Documented by: Alteplase, Recombinant 10 mg/ (Sodium Chloride) 100 mls @ 10 mls/hr [place] .Q10H ONE; Protocol Stop: 06/17/19 19:59 Last Admin: 06/17/19 11:58 Dose: 1 mg/hr, 10 mls/hr Documented by: Heparin Sodium/Sodium Chloride (25,000 unit/ Sodium Chloride) 250 mls @ 5 mls/hr IV .Q24H [facility] Last Admin: 06/17/19 11:59 Dose: 5 mls/hr Documented by: Insulin Aspart (Novolog) 0 unit SQ [facility]; Protocol Last Admin: 06/17/19 12:34 Dose: 2 unit Documented by: Losartan Potassium (Cozaar) 50 mg PO DAILY@0800 [facility] Last Admin: 06/17/19 11:15 Dose: Not Given Documented by: Metformin HCl (Glucophage) 1,000 mg PO BID@0800,1700 [facility] Last Admin: 06/17/19 08:55 Dose: Not Given Documented by: Montelukast Sodium (Singulair) 10 mg PO [facility] Last Admin: 06/16/19 19:56 Dose: 10 mg Documented by: Morphine Sulfate (Morphine Sulfate (Inj)) 5 mg IVP Q3HR PRN PRN Reason: Severe Pain Last Admin: 06/17/19 11:41 Dose: 5 mg Documented by: (Dapagliflozin Propanediol [Farxiga ] 5 Mg) 5 mg PO DAILY [facility] Last Admin: 06/17/19 08:56 Dose: Not Given Documented by: (Liraglutide [ Victoza 2-Orlin] 1.8 Mg) 1.8 mg SQ HS@2100 [facility] Last Admin: 06/16/19 19:56 Dose: Not Given Documented by: Oxcarbazepine (Trileptal) 300 mg PO BID@0800,1700 [facility] Last Admin: 06/17/19 11:15 Dose: Not Given Documented by: Pregabalin (Lyrica) 150 mg PO BID@0800,2100 [facility] Last Admin: 06/17/19 11:15 Dose: Not Given Documented by: Physical examination: VITAL SIGNS: 98.2, 69, 16, pressure 120s over 67, 98% on room air GENERAL: Laying in bed, but restless EYES: Pupils equal. Conjunctiva normal. HEENT: External appearance of nose and ears normal, oral cavity dry NECK: JVD not raised; masses not palpable. HEART: Irregular heart sounds, minimal edema. LUNGS: Respiratory rate normal diminished breath sounds ABDOMEN: Soft, nontender, liver spleen not palpable, no masses palpable. PSYCH: Answering questions EXTREMITY: Noted dry gangrenous changes of the left small toe and ischemic karina nges in the other toes, and the third toe, discoloration of the first and second toe. Poor distal pulses INVESTIGATIONS, reviewed in the clinical context: White count 6.7 hemoglobin 8.3 creatinine 0.67 Previous testing White count 7.8 hemoglobin 8.7 potassium 3.8 creatinine 0.75 Assessment: - acute on chronic ischemic changes to left foot with already compromise left foot circulation-found to have a thrombus from the groin down to the leg. Started on IV heparin and IV TPA -Persistent atrial flutter chronically on eliquis -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 secondary to peripheral arterial disease -Chronic nicotine dependence patient active cigarette smoker -Persistent atrial fibrillation chronically on eliquis -Coronary artery disease a prior history of stent -Primary osteoarthritis -Diabetic peripheral neuropathy -Severe peripheral arterial disease -Mild Cognitive impairment -Chronic gait dysfunction uses a walker -IV heparin monitoring Plan: Patient's in the ICU. On IV heparin. Other medications to continue. Also in IV TPA. Follow with Dr. Aguilera.
--- NOTE | 2019-06-17 13:57 | CDI ---
Documentation Clarification Form Date: 06/17/2019 01:43:13 PM From: Kristi Maya CCS, CCDS Admit Date: 06/13/2019 12:58:00 PM Patient Name: Ariadne Ortiz Visit Number: [id number] Discharge Date: ATTENTION: The Clinical Documentation Specialists (CDI) and [facility] Coding Staff appreciate your assistance in clarifying documentation. Please respond to the clarification below the line at the bottom and electronically sign. The CDI & [facility] Coding staff will review the response and follow-up if needed. Please note: Queries are made part of the Legal Health Record. If you have any questions, please contact the author of this message via ITS. Dr. Momo Medina: Atrial Flutter is documented in the 06/12 History & Physical & also the subsequent Progress Notes on 06/13 through 06/16. History/Risk factors: CAD w/stent, Osteoarthritis, Diabetic peripheral neuropathy, Chronic left foot ulcers, Atrial fibrillation on Eliquis, Smoker. Clinical Indicators: Presented from the Wound Care Center with a cold left foot, more than usual. Diagnosed with possible acute on chronic ischemic changes to left foot with already compromised left foot circulation. Persistent Atrial Flutter on Eliquis (held for surgery) & Persistent Atrial fibrillation. HR 06/12: 70 - 71; 06/13: 80 - 84; 06/15: 73; 06/16: 72 - 76 (weak pulse) EKG: No EKG done. 06/16 Procedure: Angiogram w/possible thrombectomy balloon dilation: report pending. Treatment: 06/12: PO Tylenol & Bronte, INH Albuterol, Insulin sq, 06/16: IV Heparin, IV Morphine Consults: Vascular Surgery In your professional opinion, please clarify the following: Atrial Flutter ruled out Atrial Flutter specified as: o Typical/Type I o Atypical/Type II o Other, please specify Unable to determine Atrial Fibrillation ruled out Atrial Fibrillation specified as: o Chronic o Paroxysmal o Permanent o Persistent (Last Revision: June 2017) Type of a flutter-unable to determine Persistent atrial fibrillation MTDD
[2019-06-17] MEDS ORDERED: ALBUTEROL INHALER 60 PUFF/8 GM INHALER (BULK) INHALATION SCH (16:00)
[2019-06-17 17:35] LABS: Glucose,Whole Blood 154 mg/dL (75-99)
--- NOTE | 2019-06-17 17:56 | CONS ---
CONSULTATION PULMONARY/CRITICAL CARE CONSULTATION: REASON FOR CONSULTATION: ICU management. This is a patient who was admitted to the hospital on June 12. Her primary care physician is Dr. Sukhdeep Giraldo. She has a history of multiple medical problems, including CAD with stent, osteoarthritis, diabetes with diabetic peripheral neuropathy, rosacea, atrial fibrillation. The patient also has a history of long-standing tobacco use and underlying COPD. The patient apparently had some chronic wounds on the toes of her left foot and has known peripheral vascular disease. She recently was being seen in the Wound Center, followed by Dr. Rose in Podiatry. She apparently was determined to have a cold left foot and the patient underwent a thrombectomy today by Dr. Aguilera. The patient had an angiogram with thrombolysis and thrombectomy with balloon dilatation on the left side. Currently, the patient is resting comfortably in the ICU. She is on a couple liters of oxygen; tPA is running. The patient has no major complaints. ALLERGIES: CODEINE AND JANUMET. HOME MEDICATIONS: Her home medications included Lyrica, Eliquis, Crestor, Aricept, Singulair, metformin, Plavix, Xanax, Lasix, vitamin B12, Symbicort, Cozaar, Farxiga, Victoza, Trileptal, DuoNeb, vitamin D3, [place] and Tylenol. PAST MEDICAL HISTORY: Her medical history includes CHF, COPD, diabetes, diabetic neuropathy, myocardial infarction, DJD, peripheral artery disease, trigeminal neuralgia, rosacea, respiratory failure, Raynaud's disease and chronic anemia. PAST SURGICAL HISTORY: Surgical history includes appendectomy, cholecystectomy, heart catheterization with stent, hysterectomy, pacemaker insertion, right leg atherectomy and left foot surgery. SOCIAL HISTORY: Positive for previous heavy tobacco use. She does not smoke currently. She denies any alcohol use. She denies any illicit drug use. FAMILY HISTORY: Positive for father with myocardial infarction and mother with CHF and diabetes as well as stroke. REVIEW OF SYSTEMS: CONSTITUTIONAL: Negative. NEUROLOGIC: Negative. HEENT: Negative. CARDIOVASCULAR: Negative. PULMONARY: Negative. GI: Negative. : Negative. RHEUMATOLOGIC: Negative. IMMUNOLOGIC: Negative. ENDOCRINOLOGIC: Negative. DERMATOLOGIC: Negative. She does have left leg and left foot pain. PHYSICAL EXAMINATION: VITALS SIGNS: Current vital signs are reviewed. Temperature is 98.2, heart rate 76, respiratory rate 16, blood pressure 127/67, mean 87, room-air saturation 98%. GENERAL APPEARANCE: She appears in no acute distress. She is lying flat. Nasal oxygen in place. HEENT EXAMINATION: Grossly unremarkable. Mucous membranes are moist. No oral lesions. NECK: Supple. Full range of motion. No adenopathy or thyromegaly. Neck veins are flat. CARDIOVASCULAR EXAMINATION: Regular rhythm and rate. Heart rate 76. S1, S1 normal. No murmur. LUNGS: Clear. Breath sounds equal. ABDOMEN: Soft. Bowel sounds are heard. EXTREMITIES: Intact. No cyanosis, clubbing or edema. SKIN: Without rash. NEUROLOGIC EXAMINATION: Brief but nonfocal. LABS: Labs are reviewed. White count 6.7, hemoglobin 8.3, hematocrit 29.2, platelet count 259,000. The patient's PT, INR and PTT are normal. Sodium 138, potassium 3.5, chloride 105, CO2 25. Anion gap is 8. BUN and creatinine were 17 and 0.68. Calcium normal. Microbiologic studies are negative. CURRENT MEDICATIONS: Current medications are reviewed. ASSESSMENT: 1. Postoperative day number zero, status post thrombectomy in left lower extremity in a patient with history of severe peripheral artery disease. 2. History of previous chronic obstructive pulmonary disorder from heavy tobacco use. 3. History of congestive heart failure. 4. History of diabetes with diabetic neuropathy. 5. Myocardial infarction by history. 6. Degenerative joint disease. 7. Trigeminal neuralgia. 8. Rosacea. 9. History of hypoxemic respiratory failure. 10.Raynaud's disease. 11.Chronic anemia. 12.Status post pacemaker insertion. 13.Previous percutaneous coronary intervention with stent placement. 14.Multiple other medical problems and comorbidities. PLAN: Currently the patient is doing reasonably well. Will continue to follow. From the critical care standpoint, currently the patient is very stable. Additional recommendations and suggestions are forthcoming. Will make sure that she has appropriate inhalers because of her underlying COPD.Encourage deep breathing. Encourage use of IS. MMODL / IJN: [id number] / MTDD
[2019-06-17] MEDS: CYANOCOBALAMIN 500 MCG TAB PO SCH (18:26)
[2019-06-17] MEDS: CHOLECALCIFEROL 1,000 UNIT TAB PO SCH (18:26)
[2019-06-17 19:48] LABS: Glucose,Whole Blood 160 mg/dL (75-99)
[2019-06-17] MEDS: ALPRAZolam 0.25 MG TAB PO PRN (20:02)
[2019-06-17] MEDS: ATORVASTATIN 40 MG TAB PO SCH (20:03)
[2019-06-17] MEDS: MONTELUKAST 10 MG TAB PO SCH (20:03)
[2019-06-18] MEDS ORDERED: ALTEPLASE 10 MG in SODIUM CHLORIDE 0.9% 100 ML IA ONE (02:41)
[2019-06-18] MEDS: HYDROcodone/APAP 7.5-325MG 1 EACH TAB PO PRN ×2 (03:51→21:08)
[2019-06-18] MEDS: MORPHINE SULFATE 4 MG/ML SYRINGE IVP PRN ×5 (03:52→23:01)
[2019-06-18 06:38] LABS: Anisocytosis Moderate; Basophils % (A) 0 %; Eosinophils # (A) 0.3 k/uL (0-0.7); Eosinophils % (A) 3 %; HCT 29.9 % (34.0-46.0); HGB 8.8 gm/dL (11.4-16.0); Hypochromasia Marked; Lymphocytes # (A) 1.3 k/uL (1.0-4.8); Lymphocytes % (A) 15 %; MCH 24.4 pg (25.0-35.0); MCHC 29.3 g/dL (31.0-37.0); MCV 83.1 fL (80.0-100.0); Mean Platelet Volume 8.5; Microcytosis Slight; Monocytes # (A) 0.5 k/uL (0-1.0); Monocytes % (A) 6 %; Neutrophils # (A) 6.4 k/uL (1.3-7.7); Neutrophils % (A) 74 %; Platelet Count 242 k/uL (150-450); Poikilocytosis Slight; RBC 3.59 m/uL (3.80-5.40); RDW 20.8 % (11.5-15.5); WBC 8.8 k/uL (3.8-10.6)
[2019-06-18 06:52] LABS: African American GFR (CKD) >90 (>60 ml/min/1.73 sqM); Anion Gap 7 mmol/L; Blood Urea Nitrogen 12 mg/dL (7-17); Calcium 8.4 mg/dL (8.4-10.2); Carbon Dioxide 23 mmol/L (22-30); Chloride 111 mmol/L (98-107); Glucose 143 mg/dL (74-99); Magnesium 1.5 mg/dL (1.6-2.3); Non-African American GFR(CKD) 88 (>60 ml/min/1.73 sqM); Potassium 3.7 mmol/L (3.5-5.1); Sodium 141 mmol/L (137-145)
[2019-06-18 06:52] LABS: Glucose,Whole Blood 162 mg/dL (75-99)
[2019-06-18] MEDS: INSULIN ASPART (NovoLOG) 100 UNIT/ML VIAL SQ SCH ×4 (07:16→20:58)
[2019-06-18] MEDS: POTASSIUM CHLORIDE 10 MEQ in WATER FOR INJECTION 1 100ML.BAG IVPB SCH ×2 (07:18→17:07)
[2019-06-18] MEDS: MAGNESIUM SULFATE-D5W PMX 1 GM in DEXTROSE/WATER 1 100ML.BAG IVPB SCH ×2 (07:18→17:05)
[2019-06-18] MEDS: SYMBICORT 160-4.5 MCG INHALER INHALATION SCH ×2 (07:20→20:18)
[2019-06-18] MEDS: DONEPEZIL 5 MG TAB PO SCH (07:52)
[2019-06-18] MEDS: LOSARTAN 50 MG TAB PO SCH (07:52)
[2019-06-18] MEDS: metFORMIN 500 MG TAB PO SCH ×2 (07:53→16:58)
[2019-06-18] MEDS: OXcarbazepine 300 MG TAB PO SCH ×2 (08:37→16:58)
[2019-06-18] MEDS: PREGABALIN 75 MG CAP PO SCH ×2 (08:37→21:01)
[2019-06-18] MEDS: FUROSEMIDE 40 MG TAB PO SCH (08:38)
[2019-06-18] MEDS ORDERED: ALBUTEROL NEBULIZED 2.5 MG/3 ML INHALATION PRN (09:53)
--- NOTE | 2019-06-18 10:09 | PN ---
PROGRESS NOTE This is a 79-year-old female who I saw yesterday in consultation. We were consulted for ICU management. She is postop day #1 status post left lower extremity thrombectomy for clot. The patient is doing reasonably well. She is on O2 of 4 L. She is receiving saline at 75 mL an hour. She is getting heparin via weight based protocol and tPA at 1 mg an hour. The patient is going back to the operating room today to further evaluate the lower extremity on the left. She has a history of multiple medical problems including CAD with previous stenting, DJD, diabetes with diabetic peripheral neuropathy, rosacea, and atrial fibrillation. She also suffers from longstanding COPD from previous heavy tobacco use. Please see my consultation for details of her admission and consultation from me. Again currently other than for some pain, she is doing reasonably well. PHYSICAL EXAMINATION: VITAL SIGNS: Her vital signs are reviewed. Temperature 98.4, heart rate 89, respiratory rate 17, blood pressure 153/81, mean 105 and 4 L saturation 96%. GENERAL: Appears in no acute distress. HEENT: Examination is grossly unremarkable. Nasal O2 in place at 4 L. NECK: Supple. Full range of motion. No adenopathy. Neck veins are flat. CARDIOVASCULAR: Examination reveals regular rhythm and rate. S1, S2 normal. No S3, S4, or murmur. LUNGS: Reveal a few scattered rhonchi. Breath sounds equal. No wheezes or crackles. ABDOMEN: Soft. Bowel sounds are heard. EXTREMITIES: Are intact. No cyanosis, clubbing, or edema. SKIN: Without rash. NEUROLOGIC: Examination is brief but nonfocal. LABS: Labs are reviewed. White count 8.8, hemoglobin 8.8, hematocrit 29.9, platelet count 242,000. Sodium 141, potassium 3.7, chloride 111, CO2 of 23. Anion gap is 7. BUN and creatinine were 12 and 0.58. Magnesium 1.5. No new chest x-ray has been done. MEDICATIONS: Medications are reviewed. The important medications were listed above. The patient is on Symbicort 160/4.5, two puffs twice a day. I will also add Ventolin 2 puffs p.r.n. ASSESSMENT: 1. Postoperative day #1, status post thrombectomy of the left lower extremity in a patient with history of severe peripheral artery disease. 2. History of previous chronic obstructive pulmonary disease, from heavy tobacco use. 3. History of congestive heart failure. 4. History of diabetes with diabetic neuropathy. 5. Myocardial infarction by history. 6. Degenerative joint disease. 7. Trigeminal neuralgia. 8. History of rosacea. 9. History of Raynaud disease. 10.History of hypoxemic respiratory failure. 11.Chronic anemia. 12.Status post pacemaker insertion. 13.Status post percutaneous coronary intervention with stent. 14.Multiple other medical problems and comorbidities. PLAN: The patient is apparently scheduled to go back to the operating room today at 10 a.m. He will be taken back there by Dr. Aguilera. She remains on heparin and tPA. Vital signs are stable. Respiratory status is stable. We will encourage deep breathing, coughing, clearing of secretions and hourly use of incentive spirometry. MMODL / IJN: [id number] /
--- NOTE | 2019-06-18 10:16 | P.ARTDOP ---
Arterial Doppler LOWER EXTREMITY ARTERIAL DOPPLER: DATE OF SERVICE: 06/14/2019 Reason for study: Gangrenous toes on the left. Doppler waveforms: And atypical throughout on the right. Atypical proximally on the left and monophasic to flat line below the popliteal on the left. Pulse volume recording: To waveforms are monophasic bilaterally to flat line. Pressure gradients: Pressures not recorded on the left. Gradient below the knee on the right and at the foot level on the right. Ankle-brachial indices: 0.91 on the right none recorded on the left. Toe brachial indices: 0.18 on the right, not recorded on the left Impression: Moderate right fem-pop disease. Severe left fem-pop disease probably critical. Cannot exclude proximal component. Clinical correlation recommended.
[2019-06-18] MEDS ORDERED: IV FLUID CONTINUATION 700 ML IV ONE (11:00)
[2019-06-18] MEDS: MIDAZOLAM 2 MG/2 ML VIAL IV ONE ×4 (11:15→13:05)
[2019-06-18] MEDS ORDERED: fentaNYL (PF) 50 MCG/ML 2 ML AMP IV ONE (11:15)
[2019-06-18] MEDS: fentaNYL (PF) 50 MCG/ML 2 ML AMP IVP ONE (11:36)
[2019-06-18] MEDS ORDERED: IOPAMIDOL-250 100ML BTL INTRAARTER ONE ×4 (11:52→15:14)
[2019-06-18] MEDS: NITROGLYCERIN 1000MCG/10ML SYRINGE INTRAARTER ONE ×4 (12:04→15:11)
[2019-06-18] MEDS: ALBUTEROL NEBULIZED 2.5 MG/3 ML INHALATION SCH ×3 (12:26→20:20)
[2019-06-18] MEDS: HEPARIN SODIUM 1,000 UN/ML (10ML VL) IV ONE ×2 (13:00→14:12)
[2019-06-18] MEDS ORDERED: ALTEPLASE 2 MG VIAL (CATHFLO) IV STA ×2 (13:02→13:10)
[2019-06-18] MEDS ORDERED: ALTEPLASE BOLUS 1 MG/1 ML SYRINGE IV STA (13:06)
[2019-06-18] MEDS ORDERED: HYDROmorphone 1 MG/ML 1 ML SYRINGE IVP ONE (13:48)
[2019-06-18] MEDS ORDERED: CLOPIDOGREL 75 MG TAB PO ONE (16:09)
[2019-06-18] MEDS: SODIUM CHLORIDE 0.9% 1,000 ML IV SCH (16:15)
[2019-06-18 16:31] LABS: Glucose,Whole Blood 176 mg/dL (75-99)
[2019-06-18 16:52] LABS: Magnesium 1.8 mg/dL (1.6-2.3); Potassium 4.5 mmol/L (3.5-5.1)
[2019-06-18] MEDS: CHOLECALCIFEROL 1,000 UNIT TAB PO SCH (16:57)
[2019-06-18] MEDS: CYANOCOBALAMIN 500 MCG TAB PO SCH (16:57)
[2019-06-18] MEDS: SODIUM CHLORIDE 0.9% 1,000 ML in EMPTY BAG 1 BAG IV SCH (17:03)
[2019-06-18] MEDS ORDERED: MAGNESIUM SULFATE-D5W PMX 1 GM in DEXTROSE/WATER 1 100ML.BAG IVPB ONE (17:30)
--- NOTE | 2019-06-18 18:16 | P.OP ---
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 Aortogram with left lower extremity selective femoral-Tibial artery angiogram 2. Ultrasound-guided right common femoral artery access 3. Placement of thrombolytic catheter and initiation of thrombolysis Anesthesia: local, other (Moderate conscious sedation x 25 minutes) Surgeon: Ibrahima Aguilera Estimated Blood Loss (ml): 5 Pathology: none sent Condition: stable Disposition: ICU Indications for Procedure: 79-year-old female who is well known to our office presented to the hospital secondary worsening left foot wounds and cool extremity. Upon evaluation it was noted that the blood flow to the left foot was worse since her last office visit and patient had developed worsening gangrene and ischemic changes. We discussed options including amputation which at this time would likely be above-knee versus attempting to revascularize her left lower extremity. We will attempt to revascularize her left leg. Operative Findings: Occluded superficial femoral artery just after takeoff extending to the foot. There are several collaterals leading down to the lower leg with reconstitution at the anterior tibial artery at the ankle and peroneal artery at the mid calf. Patent aorta and bilateral common iliac arteries with patent right common iliac artery stent. Description of Procedure: After written and informed consent was obtained from the patient's family and all risks, benefits, and complications were discussed the patient was brought to the solar lab technician and laid in a supine position. The area of the groin was prepped and draped in the usual sterile fashion. A timeout was performed in usual fashion and patient was administered antibiotics prior to access. Utilizing ultrasound the right common femoral artery was visualized and shown to be patent with minimal calcification and then was cannulated with a multipurpose needle and guidewire was placed followed by a 5 Urdu sheath. Sheath was assessed and shown to flush easily. An 0.35 Glidewire Advantage wire Was then placed into the distal aorta just above the bifurcation. Utilizing a RBI catheter the left common iliac artery was accessed. Guidewire was then placed to the common femoral artery and using the RBI catheter a selective angiogram was obtained demonstrating chronic total occlusion of the SFA. At that time the 5 Urdu sheath was removed and replaced with a 55 cm RAABE sheath. Using the 035 Glidewire and a quick cross catheter the lesion was crossed. The wire went extremely easy through the lesion which had the consistency of thrombus. The wire and catheter were placed into the distal SFA/popliteal stent. Distal angiogram of the tibial vessels were then obtained demonstrating thrombus throughout the tibial peroneal trunk with occlusive disease noted distally. At that time it was determined to place a thrombolytic catheter and initiate thrombolysis to see if we could open up any outflow for possible revascularization. A 30 cm infusion length thrombolytic catheter was then guided over the existing wire after removal of the quick cross catheter. This is placed at the proximal SFA occlusion site and thrombolytics were initiated. Patient tolerated procedure well and was sent to ICU for recovery.
--- NOTE | 2019-06-18 19:17 | P.OP ---
Date of Procedure: 06/18/19 Preoperative Diagnosis: 1. Left lower extremity critical limb ischemia with toe wounds Miller classification 6 2. Left lower extremity SFA to tibial artery acute on chronic thrombosis Postoperative Diagnosis: Same Procedure(s) Performed: 1. Left lower extremity selective femoral, popliteal, tibial angiogram via existing sheath 2. Percutaneous transluminal balloon angioplasty of the left superficial femoral, popliteal, tibial peroneal arteries 3. Percutaneous transluminal stent placement within the left tibial peroneal artery with 5 x 50 mm viabahn stent 4. Percutaneous transluminal stent placement in the left anterior tibial artery with 2 x 30 mm drug-eluting stent 5. Percutaneous transluminal stent placement in the left superficial femoral and popliteal artery with 6 x 200 mm and 6 x 120 mm viabahn stents 6. Percutaneous translumina balloon angioplasty of the left external iliac artery 7. Intra-arterial pressure measurement of the external iliac artery Anesthesia: local, other (Moderate conscious sedation x 240 mins) Surgeon: Ibrahima Aguilera Estimated Blood Loss (ml): 5 Pathology: none sent Condition: stable Disposition: ICU Indications for Procedure: 79-year-old female with acute thrombosis of the left lower extremity currently being treated with thrombolysis via a thrombolytic catheter presents to the [facility] for reimaging and possible revascularization. Operative Findings: Occluded anterior tibial, posterior tibial and peroneal artery just after the takeoff. Occluded left superficial femoral artery and in-stent occlusion extending to the tibial peroneal trunk Description of Procedure: After written and informed consent was obtained from the patient's family and all risks, benefits, and complications were discussed the patient was brought to the farm labor contractor and laid in a supine position. The area of the existing sheath was prepped and draped in the usual sterile fashion. A timeout was performed in usual fashion. Utilizing the existing catheter a selective left lower extremty angiogram was obtained. There was still extensive blockage throughout the SFA and tibial vessels. On angiogram there was noted reconstitution of the anterior tibial artery at the ankle as well as the peroneal artery at the mid calf. There was also flow noted in the popliteal artery just distal to the exististing stent and there was a small area of extravasation. Due to this a wire was placed across the popliteal artery and balloon angioplasty with a [id number] balloon was performed with improvement of the extravasation. Utilizing an 014 wire the anterior tibial artery was accessed and the chronic total occlusion was crossed with a quick cross catheter. Angiogram at the ankle was obtained demonstrating flow into the foot which was sparse. Wire was placed and balloon angioplasty was performed with a 1.5 mm balloon from the ankle to the Proximal anterior tibial artery. Angiogram was once again performed demonstrating improvement of the lumen to the ankle. Mckinley wire was then placed and the peroneal artery was then accessed and the occlusion was crossed. Angiogram at the distal peroneal artery was performed showing good intraluminal access. Balloon angioplasty with a 2.5 mm balloon was then performed. 035 quick cross catheter was then placed And angiogram was obtained demonstrating improved lumen of both anterior tibial artery and peroneal artery. There was significant noted at the anterior tibial artery just after the takeoff and therefore a 2 x 30 mm balloon expandable drug-coated stent was placed. Multiple angiograms were obtained throughout the procedure with placement of nitroglycerin to help with spasm. There was also an area significant stenosis at the peroneal artery and attempt was placed to perform a stent at this area as well but when wire was removed from the anterior tibial artery a dissection flap was noted at the tibial peroneal trunk and occluded the peroneal and anterior tibial artery. Wire was then replaced anterior tibial artery and decision was made to place a covered stent across the tibial peroneal trunk extending into the popliteal and superficial femoral arteries in order to cover the area of extravasation and dissection. Utilizing Viabahn stents 5x50 mm for the tibial peroneal trunk, [id number] from the TPT to the existing stent and [id number] extending up to the takeoff of the SFA. Once completed balloon angioplasty across the overlapped stents was performed and final angiograms were obtained demonstrating improved flow through the stents to the anterior tibial artery. There was flow noted to the ankle which was slowed due to spasm. Upon removal of all wires, catheters final angiogram of the iliac and femoral arteries were obtained demonstrating an area of stenosis approximately 60% at the external iliac artery. Utilizing the catheter blood pressure measurements were obtained across the lesion demonstrating a 40 mmHg change and therefore balloon angioplasty with a 6 x 40 mm balloon was performed. Once completed pressures normalized and were only noted to have 10 mmHg difference. All guidewires and catheters were then removed And pressure was held at the access site for hemostasis. Patient tolerated the procedure well and was sent to ICU for recovery. Patient had a multiphasic signal at the anterior tibial artery above the ankle with brisk capillary refill. Disposition: Patient will likely need a TMA vs BKA depending on the extent of the ischemic tissue at the plantar surface of the foot.
[2019-06-18] MEDS ORDERED: HEPARIN SODIUM,PORCINE 5,000 UNIT/ML 1 ML VIAL IV ONE (20:27)
[2019-06-18 20:41] LABS: INR 1.1 (<1.2); Partial Thromboplastin Time 24.7 sec (22.0-30.0); Prothrombin Time 11.5 sec (9.0-12.0)
[2019-06-18 20:45] LABS: Glucose,Whole Blood 172 mg/dL (75-99)
[2019-06-18] MEDS: HEPARIN SOD,PORK IN 0.45% NACL 25,000 UNIT in 0.45% NACL 1 250ML.BAG IV SCH (20:54)
[2019-06-18] MEDS: MONTELUKAST 10 MG TAB PO SCH (21:01)
[2019-06-18] MEDS: ALPRAZolam 0.25 MG TAB PO PRN (21:01)
[2019-06-18] MEDS: ATORVASTATIN 40 MG TAB PO SCH (21:01)
[2019-06-18] MEDS ORDERED: OXcarbazepine 300 MG TAB PO ONE (21:06)
--- NOTE | 2019-06-18 22:07 | P.PN ---
Progress Note - Text Progress Note Date: 06/18/19 Chief Complaint: Left foot cold History of presenting complaint: This is a 79-year-old patient of Dr. Giraldo. Chronic stable medical conditions include coronary artery disease with stent, osteoarthritis, diabetic peripheral neuropathy, rosacea, atrial fibrillation on eliquis. Patient long-standing smoker. Patient has chronic wounds on the toes of the left foot. Known significant peripheral arterial disease. She does follow at the wound care center. Was followed by Dr. Rose from podiatry. Does use a walker. Patient was at the wound Center. Seen by the wound care TIRE ADJUSTER Jagruti. It was assessment of the patient's left foot was cold and then usual. Patient has been seen by Dr. Aguilera. Patient was admitted for further management. He was consulted. Patient's pain in the left foot is not more than her baseline. No fever no chills. Admitted with acute on chronic ischemic changes to the left foot. Patient is already on eliquis.-Held switched to Lovenox. On June 16-autogram performed showed occluded superficial femoral artery with several collaterals leading down to the lower leg with reconstitution of the anterior table of artery of the ankle and peripheral artery at the midcalf. Patient then was put on TPA and IV heparin. For the thrombus. Today-taken to the operating room today. Patient underwent angioplasty stenting to several vessels. Postprocedure bit delirious. In the ICU. On IV heparin.. Review of systems: Patient somewhat delirious Active Medications Acetaminophen (Tylenol Tab) 500 mg PO Q6HR PRN PRN Reason: Moderate Pain Last Admin: 06/16/19 10:37 Dose: 500 mg Documented by: Hydrocodone Bitart/Acetaminophen ([place] 7.5-325) 1 each PO Q6H PRN PRN Reason: Pain Last Admin: 06/18/19 21:08 Dose: 1 each Documented by: Albuterol Sulfate (Ventolin Nebulized) 2.5 mg INHALATION RT-QID PRN PRN Reason: Shortness Of Breath Or Wheezing Albuterol Sulfate (Ventolin Nebulized) 2.5 mg INHALATION RT-QID FRANTZ Last Admin: 06/18/19 20:20 Dose: Not Given Documented by: Alprazolam (Xanax) 0.25 mg PO HS PRN PRN Reason: Anxiety Last Admin: 06/18/19 21:01 Dose: 0.25 mg Documented by: Atorvastatin Calcium (Lipitor) 40 mg PO HS@2100 [facility] Last Admin: 06/18/19 21:01 Dose: 40 mg Documented by: Budesonide/Formoterol Fumarate (Symbicort 160-4.5 Mcg Inhaler) 2 puff INHALATION RT-BID@0800,1700 [facility] Last Admin: 06/18/19 20:18 Dose: 2 puff Documented by: Cholecalciferol (Vitamin D3 (25 Mcg = 1000 Iu)) 2,000 unit PO DAILY@1700 [facility] Last Admin: 06/18/19 16:57 Dose: Not Given Documented by: Cyanocobalamin (Vitamin B-12) 1,000 mcg PO DAILY@1700 [facility] Last Admin: 06/18/19 16:57 Dose: Not Given Documented by: Donepezil HCl (Aricept) 5 mg PO DAILY@0800 [facility] Last Admin: 06/18/19 07:52 Dose: Not Given Documented by: Furosemide (Lasix) 40 mg PO DAILY [facility] Last Admin: 06/18/19 08:38 Dose: Not Given Documented by: Heparin Sodium (Porcine) (Heparin) 0 unit IV PER PROTOCOL PRN; Protocol PRN Reason: Low PTT Sodium Chloride (Saline 0.9%) 1,000 mls @ 75 mls/hr IV .[id number] [facility] Last Admin: 06/18/19 16:15 Dose: 75 mls/hr Documented by: Heparin Sodium/Sodium Chloride (25,000 unit/ Sodium Chloride) 250 mls @ 7.948 mls/hr IV .Q24H [facility]; Protocol Last Admin: 06/18/19 20:54 Dose: 12 units/kg/hr, 7.948 mls/hr Documented by: Insulin Aspart (Novolog) 0 unit SQ ACHS [facility]; Protocol Last Admin: 06/18/19 20:58 Dose: 2 unit Documented by: Losartan Potassium (Cozaar) 50 mg PO DAILY@0800 [facility] Last Admin: 06/18/19 07:52 Dose: Not Given Documented by: Metformin HCl (Glucophage) 1,000 mg PO BID@0800,1700 [facility] Last Admin: 06/18/19 16:58 Dose: Not Given Documented by: Montelukast Sodium (Singulair) 10 mg PO HS [facility] Last Admin: 06/18/19 21:01 Dose: 10 mg Documented by: Morphine Sulfate (Morphine Sulfate (Inj)) 5 mg IVP Q3HR PRN PRN Reason: Severe Pain Last Admin: 06/18/19 18:56 Dose: 5 mg Documented by: (Dapagliflozin Propanediol [Farxiga ] 5 Mg) 5 mg PO DAILY [facility] Last Admin: 06/18/19 08:37 Dose: Not Given Documented by: (Liraglutide [ Victoza 2-Orlin] 1.8 Mg) 1.8 mg SQ HS@2100 [facility] Last Admin: 06/18/19 20:37 Dose: Not Given Documented by: Oxcarbazepine (Trileptal) 300 mg PO BID@0800,1700 [facility] Last Admin: 06/18/19 16:58 Dose: Not Given Documented by: Pregabalin (Lyrica) 150 mg PO BID@0800,2100 [facility] Last Admin: 06/18/19 21:01 Dose: 150 mg Documented by: Physical examination: VITAL SIGNS: 98.3, 79, 18, 146/71, 95% on 4 L GENERAL: Laying in bed, a bit delirious EYES: Pupils equal. Conjunctiva normal. HEENT: External appearance of nose and ears normal, oral cavity dry NECK: JVD not raised; masses not palpable. HEART: Irregular heart sounds, minimal edema. LUNGS: Respiratory rate normal diminished breath sounds ABDOMEN: Soft, nontender, liver spleen not palpable, no masses palpable. PSYCH: Delirious EXTREMITY: Noted dry gangrenous changes of the left small toe and ischemic changes in the other toes, and the third toe, discoloration of the first and second toe. Poor distal pulses INVESTIGATIONS, reviewed in the clinical context: White count 8.8 hemoglobin 8.8 platelets 242 potassium 3.7 creatinine 0.58 Previous testing White count 7.8 hemoglobin 8.7 potassium 3.8 creatinine 0.75 Assessment: -June 17-PTCA to left superficial femoral, platelet. 2, tibial peroneal arteries with stent and left external iliac artery. - acute on chronic ischemic changes to left foot with already compromise left foot circulation-found to have a thrombus from the groin down to the leg. Received IV heparin and IV TPA -Persistent atrial flutter chronically on eliquis -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 secondary to peripheral arterial disease -Chronic nicotine dependence patient active cigarette smoker -Persistent atrial fibrillation chronically on eliquis -Coronary artery disease a prior history of stent -Primary osteoarthritis -Diabetic peripheral neuropathy -Severe peripheral arterial disease -Mild Cognitive impairment -Chronic gait dysfunction uses a walker -IV heparin monitoring -Acute delirium-multifactorial Plan: Patient currently in the ICU. On IV heparin. Dr. Aguilera discussed the findings with the. Patient will most likely need amputation probably below the knee.
[2019-06-19] MEDS: MORPHINE SULFATE 4 MG/ML SYRINGE IVP PRN ×6 (02:42→22:20)
[2019-06-19 03:24] LABS: Anisocytosis Moderate; Basophils % (A) 0 %; Eosinophils # (A) 0.1 k/uL (0-0.7); Eosinophils % (A) 1 %; HCT 26.5 % (34.0-46.0); HGB 7.6 gm/dL (11.4-16.0); Hypochromasia Marked; Lymphocytes # (A) 1.1 k/uL (1.0-4.8); Lymphocytes % (A) 9 %; MCH 24.1 pg (25.0-35.0); MCHC 28.7 g/dL (31.0-37.0); MCV 83.8 fL (80.0-100.0); Mean Platelet Volume 7.4; Microcytosis Slight; Monocytes # (A) 0.6 k/uL (0-1.0); Monocytes % (A) 5 %; Neutrophils # (A) 9.8 k/uL (1.3-7.7); Neutrophils % (A) 83 %; Platelet Count 250 k/uL (150-450); Poikilocytosis Slight; RBC 3.16 m/uL (3.80-5.40); RDW 20.4 % (11.5-15.5); WBC 11.8 k/uL (3.8-10.6)
[2019-06-19 03:29] LABS: African American GFR (CKD) >90 (>60 ml/min/1.73 sqM); Non-African American GFR(CKD) >90 (>60 ml/min/1.73 sqM)
[2019-06-19] MEDS: HEPARIN SODIUM,PORCINE 5,000 UNIT/ML 1 ML VIAL IV PRN ×4 (04:04→22:10)
[2019-06-19] MEDS: HYDROcodone/APAP 7.5-325MG 1 EACH TAB PO PRN (04:08)
[2019-06-19] MEDS: SODIUM CHLORIDE 0.9% 1,000 ML IV SCH ×2 (04:19→21:53)
[2019-06-19 06:35] LABS: Glucose,Whole Blood 183 mg/dL (75-99)
[2019-06-19 06:36] LABS: African American GFR (CKD) >90 (>60 ml/min/1.73 sqM); Anion Gap 6 mmol/L; Blood Urea Nitrogen 10 mg/dL (7-17); Calcium 8.4 mg/dL (8.4-10.2); Carbon Dioxide 22 mmol/L (22-30); Chloride 111 mmol/L (98-107); Glucose 144 mg/dL (74-99); Magnesium 2.1 mg/dL (1.6-2.3); Non-African American GFR(CKD) 89 (>60 ml/min/1.73 sqM); Sodium 139 mmol/L (137-145)
[2019-06-19] MEDS: INSULIN ASPART (NovoLOG) 100 UNIT/ML VIAL SQ SCH ×4 (06:39→22:09)
--- NOTE | 2019-06-19 08:11 | IR ---
Fluoroscopy HISTORY: Peripheral vascular occlusive disease 62.2 minutes fluoroscopy time supplied to the referring clinician. 8436 intraoperative C-arm images document the procedure. See dictated report from vascular surgery.
--- NOTE | 2019-06-19 08:13 | XR ---
EXAMINATION TYPE: XR chest 1V portable DATE OF EXAM: 06/19/2019 COMPARISON: Prior chest x-ray 05/23/2019 HISTORY: Shortness of breath TECHNIQUE: Single frontal view of the chest is obtained. FINDINGS: Findings are similar to prior exam. Pacemaker is present in the left pectoral region, ther e is a lead in the right ventricle. Aorta is dense. Heart is enlarged. No pneumothorax or pleural eff usion. Patient is rotated. Pulmonary vascularity and echo show similar appearance. Interstitium is mi ldly increased. IMPRESSION: Correlate for possible pulmonary venous hypertension and interstitial edema, follow-up s uggested.
[2019-06-19] MEDS: ALBUTEROL NEBULIZED 2.5 MG/3 ML INHALATION SCH ×5 (09:00→18:57)
[2019-06-19] MEDS: SYMBICORT 160-4.5 MCG INHALER INHALATION SCH ×2 (09:02→18:57)
[2019-06-19] MEDS: DONEPEZIL 5 MG TAB PO SCH (10:13)
[2019-06-19] MEDS: OXcarbazepine 300 MG TAB PO SCH ×2 (10:13→17:13)
[2019-06-19] MEDS: PREGABALIN 75 MG CAP PO SCH ×2 (10:13→22:09)
[2019-06-19] MEDS: LOSARTAN 50 MG TAB PO SCH (10:13)
[2019-06-19] MEDS: FUROSEMIDE 40 MG TAB PO SCH (10:13)
[2019-06-19] MEDS: HEPARIN SOD,PORK IN 0.45% NACL 25,000 UNIT in 0.45% NACL 1 250ML.BAG IV SCH ×2 (10:18→21:50)
--- NOTE | 2019-06-19 12:28 | PN ---
PROGRESS NOTE PULMONARY/CRITICAL CARE PROGRESS NOTE: DATE OF SERVICE: 06/19/2019 This is a 79-year-old female who is postop day #2 status post thrombectomy of the left lower extremity in a patient with a history of severe peripheral artery disease. She apparently went back to the operating room yesterday. The patient apparently is not able to have adequate circulation to the left lower extremity and apparently the vascular surgeons are considering a [id number] amputation. The patient is resting comfortably in the ICU. She is moaning and groaning. She does arouse and does respond appropriately. She is currently on O2 of 2 liters. She is getting IV heparin via weight-based protocol and saline at 75 mL an hour. In addition to the peripheral artery disease, she has a history of COPD, CHF, diabetes, diabetic neuropathy, myocardial infarction, DJD, trigeminal neuralgia, rosacea, Raynaud's disease, hypoxemic respiratory failure, anemia, status post pacemaker insertion, status post percutaneous coronary intervention with stent, as well as multiple other medical problems. Again, currently resting relatively comfortably in the ICU. The patient is being followed by Dr. Aguilera, Vascular Surgery. PHYSICAL EXAMINATION: Current vital signs are reviewed. Her temperature is 100, heart rate 78, respiratory rate 12, blood pressure 146/76, mean 99, 2 L saturation 98%. Appears in no acute distress. HEENT: Examination is grossly unremarkable. Mucous membranes are moist. There are no oral lesions. NECK: Supple. Full range of motion. No adenopathy or thyromegaly. Neck veins are flat. CARDIOVASCULAR: Examination reveals regular rhythm and rate. S1, S2 normal. No heart murmur. Heart rate is about the mid-70s. No S3 or S4. LUNGS: Reveal mostly clear breath sounds. A few scattered mild rhonchi. No wheezes or crackles. Breath sounds are equal. ABDOMEN: Soft. Bowel sounds are heard. EXTREMITIES: Intact except for the left lower extremity which is cold to touch. There are some ulcerations and dry gangrene noted to the foot and toe area of the left lower extremity. SKIN: Without rash. NEUROLOGIC: Examination is brief but nonfocal. LABS: Labs are reviewed. White count 11.8, hemoglobin 10.6, hematocrit 26.5, platelet count 350,000. PTT is 33.3. Sodium and potassium normal. Chloride is 111, CO2 22. Anion gap of 6. BUN and creatinine were 10 and 0.56. Magnesium and calcium are normal. Microbiology is currently negative or pending. The patient did have a chest x-ray dated June 18 which shows some evidence of some mild interstitial edema and pulmonary venous hypertension. MEDICATIONS: Medications are reviewed. ASSESSMENT: 1. Postoperative day #2, status post thrombectomy of the left lower extremity in a patient with a history of severe peripheral artery disease. 2. History of chronic obstructive pulmonary disease from prior heavy tobacco use. 3. History of congestive heart failure. 4. Diabetes with diabetic neuropathy. 5. Myocardial infarction by history. 6. Degenerative joint disease. 7. Trigeminal neuralgia. 8. History of rosacea. 9. History of Raynaud's disease. 10.History of hypoxemic respiratory failure. 11.Chronic anemia. 12.Status post pacemaker insertion. 13.Status post percutaneous coronary intervention with stent. 14.Multiple other medical problems and comorbidities. PLAN: The patient is currently on IV heparin and saline IV. The patient may be going back to the operating room for possible left below-knee amputation. The patient is otherwise relatively stable. Will continue to follow. Prognosis is guarded. MMODL / IJN: [id number] /
--- NOTE | 2019-06-19 12:36 | CDI ---
Documentation Clarification Form Date: 06/19/2019 12:13:27 PM From: Kristi Maya CCS, CCDS Admit Date: 06/13/2019 12:58:00 PM Patient Name: Ariadne Ortiz Visit Number: [id number] Discharge Date: ATTENTION: The Clinical Documentation Specialists (CDI) and [facility] Coding Staff appreciate your assistance in clarifying documentation. Please respond to the clarification below the line at the bottom and electronically sign. The CDI & [facility] Coding staff will review the response and follow-up if needed. Please note: Queries are made part of the Legal Health Record. If you have any questions, please contact the author of this message via ITS. Dr. Bethel Cordero: Per the 06/16 Pulmonary/Critical Care Consult: "The patient also has a history of long-standing tobacco use and underlying COPD." Past medical history includes respiratory failure, nos. The patient uses the following medications at home: Her home medications included Lyrica, Eliquis, Crestor, Aricept, Singulair, Metformin, Plavix, Xanax, Lasix, vitamin B12, Symbicort, Cozaar, Farxiga, Victoza, Trileptal, DuoNeb, Vitamin D3, Aurora and Tylenol. The acuity of the patient's respiratory failure is not documented. History/Risk Factors: CAD with stent, Osteoarthritis, Diabetes with diabetic peripheral neuropathy, Atrial fibrillation, long-standing tobacco use and underlying COPD, chronic wounds on the toes of her left foot and has known peripheral vascular disease. No Home O2 Clinical Indicators: Patient was [facility] with a cold left foot. Admitted for Vascular Surgeon consult. On 06/17 went to the OR for angiogram & angioplasty with stent placement to the LLE arteries. May need amputation of the left leg below the knee. On 06/16 returned to the ICU postprocedure. Vital signs 06/12: R 18, BP 106/59, PO 91 RA. 06/16 Postop: PO 76*-85* on RA. Put on 4Lnc. Treatment 06/12: INH Albuterol, INH Symbicort. 06/17 Postop: IV Hep drip, IV Mag Sulfate, IV fluid rate 75, IV Dilaudid, INH Albuterol, O2 2-4Lnc. In your professional opinion, can you please clarify if these findings signify one of the following conditions? Chronic Respiratory Failure Other Diagnosis, please specify Unable to determine If known, further specify (if known): o With hypercapnia o With hypoxia (Last Query Form Revision: November 2018) Histo ry of COPD. Never had PFT's. Discharged on O2 on her prior admission. JIMBO
[2019-06-19 13:01] LABS: Glucose,Whole Blood 171 mg/dL (75-99)
[2019-06-19] MEDS: metFORMIN 500 MG TAB PO SCH ×2 (13:02→17:07)
--- NOTE | 2019-06-19 13:13 | P.PN ---
Subjective Progress Note Date: 06/19/19 The patient is seen and examined in the ICU. Patient was lying in bed moaning, patient remains confused at times. No acute changes through the night. Patient is status post left lower extremity angiogram, balloon angioplasty, and stent placement in the left tibial peroneal artery, left anterior tibial artery, and left superficial femoral and popliteal artery. She remains on a heparin drip. No reported signs of bleeding. Objective - Vital Signs Vital signs: Vital Signs Temp 99.6 F 06/19/19 04:00 Pulse 80 06/19/19 09:00 Resp 14 06/19/19 09:00 BP 139/59 06/19/19 09:00 Pulse Ox 94 L 06/19/19 09:00 Intake & Output 06/18/19 06/19/19 06/19/19 18:59 06:59 18:59 Intake Total 1066.333 956.431 75 Output Total 368 410 30 Balance 698.333 546.431 45 Weight 74.3 kg Intake: IV 925 900 75 Sodium Chloride 0.9% 1, 375 000 ml @ 0 mls/hr IV .[facility] Rx#:[id number] Sodium Chloride 0.9% 1, 150 900 75 000 ml @ 75 mls/hr IV . [id number] [facility] Rx#:[id number] Intake, IV Titration 141.333 56.431 Amount Heparin Sod,Pork in 0.45% 56.431 NaCl 25,000 unit In 0.45 % NaCl 1 250ml.bag @ 12 UNITS/KG/HR 7.948 mls/hr IV .Q24H [facility] Rx#: [id number] Heparin Sod,Pork in 0.45% 141.333 NaCl 25,000 unit In 0.45 % NaCl 1 250ml.bag @ 5 mls/hr IV .Q24H [facility] Rx#: [id number] Output: Urine 368 410 30 Other: Voiding Method Indwelling Catheter Indwelling Catheter - Exam General appearance: The patient is alert, somewhat confused, in no acute distress but moans off and on. HET: Head is normocephalic and atraumatic. Neck: Supple without lymphadenopathy. Trachea midline. Heart: S1 S2. Regular rate and rhythm. Lungs: No crackles or wheezes are heard. Extremities: Left lower extremity with femoral and popliteal pulses. Positive positive AT and PT Doppler signal. Right groin with nickel sized hematoma, no active bleeding. Bluish/purple discoloration to toes on left foot, fifth toe with dry ischemic changes. Ulceration to the medial side of the left great toe, without drainage or odor. - Labs CBC & Chem 7: 06/19/19 02:36 06/19/19 04:38 Labs: Abnormal Lab Results - Last 24 Hours (Table) 06/18/19 06/18/19 06/19/19 Range/Units 16:29 20:43 02:36 WBC (3.8-10.6) k/uL RBC (3.80-5.40) m/uL Hgb (11.4-16.0) gm/dL Hct (34.0-46.0) % MCH (25.0-35.0) pg MCHC (31.0-37.0) g/dL RDW (11.5-15.5) % Neutrophils # (1.3-7.7) k/uL APTT 30.5 H (22.0-30.0) sec Chloride (98-107) mmol/L Glucose (74-99) mg/dL POC Glucose (mg/dL) 176 H 172 H (75-99) mg/dL 06/19/19 06/19/19 06/19/19 Range/Units 02:36 04:38 06:34 WBC 11.8 H (3.8-10.6) k/uL RBC 3.16 L (3.80-5.40) m/uL Hgb 7.6 L (11.4-16.0) gm/dL Hct 26.5 L (34.0-46.0) % MCH 24.1 L (25.0-35.0) pg MCHC 28.7 L (31.0-37.0) g/dL RDW 20.4 H (11.5-15.5) % Neutrophils # 9.8 H (1.3-7.7) k/uL APTT (22.0-30.0) sec Chloride 111 H (98-107) mmol/L Glucose 144 H (74-99) mg/dL POC Glucose (mg/dL) 183 H (75-99) mg/dL 06/19/19 Range/Units 09:21 WBC (3.8-10.6) k/uL RBC (3.80-5.40) m/uL Hgb (11.4-16.0) gm/dL Hct (34.0-46.0) % MCH (25.0-35.0) pg MCHC (31.0-37.0) g/dL RDW (11.5-15.5) % Neutrophils # (1.3-7.7) k/uL APTT 33.3 H (22.0-30.0) sec Chloride (98-107) mmol/L Glucose (74-99) mg/dL POC Glucose (mg/dL) (75-99) mg/dL Assessment and Plan Assessment: 1. Left lower extremity critical limb ischemia with toe wounds, Norman classification 6 2. 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 Chronic left foot ischemia, with dry gangrenous changes to the left fifth toe 4. Chronic diabetic ulcerations 5. Diabetes mellitus with neuropathy Plan: Patient was seen and examined with Dr. Bellamy. Continue current treatment. He will further discuss with Dr. Aguilera regarding transmetatarsal versus below the knee amputation. Patient will likely require below the knee amputation. Further recommendations to follow. The above dictated assessment and findings were discussed with Dr. Bellamy. The impression and plan of care have been directed as dictated.
[2019-06-19 13:25] VITALS: BMI 27.2
--- NOTE | 2019-06-19 16:34 | P.PN ---
Progress Note - Text Progress Note Date: 06/19/19 Chief Complaint: Left foot cold History of presenting complaint: This is a 79-year-old patient of Dr. Giraldo. Chronic stable medical conditions include coronary artery disease with stent, osteoarthritis, diabetic peripheral neuropathy, rosacea, atrial fibrillation on eliquis. Patient long-standing smoker. Patient has chronic wounds on the toes of the left foot. Known significant peripheral arterial disease. She does follow at the wound care center. Was followed by Dr. Rose from podiatry. Does use a walker. Patient was at the wound Center. Seen by the wound care [facility] Jagruti. It was assessment of the patient's left foot was cold and then usual. Patient has been seen by Dr. Aguilera. Patient was admitted for further management. He was consulted. Patient's pain in the left foot is not more than her baseline. No fever no chills. Admitted with acute on chronic ischemic changes to the left foot. Patient is already on eliquis.-Held switched to Lovenox. On June 16-autogram performed showed occluded superficial femoral artery with several collaterals leading down to the lower leg with reconstitution of the anterior table of artery of the ankle and peripheral artery at the midcalf. Patient then was put on TPA and IV heparin. For the thrombus. June 17-angioplasty stenting to several lower extremity vessels. Today-in ICU. Still a bit delirious. Hardly eating. Some pain is present. Review of systems: Patient somewhat delirious Active Medications Acetaminophen (Tylenol Tab) 500 mg PO Q6HR PRN PRN Reason: Moderate Pain Last Admin: 06/16/19 10:37 Dose: 500 mg Documented by: Hydrocodone Bitart/Acetaminophen (Mansura 7.5-325) 1 each PO Q6H PRN PRN Reason: Pain Last Admin: 06/19/19 04:08 Dose: 1 each Documented by: Albuterol Sulfate (Ventolin Nebulized) 2.5 mg INHALATION RT-QID PRN PRN Reason: Shortness Of Breath Or Wheezing Albuterol Sulfate (Ventolin Nebulized) 2.5 mg INHALATION RT-QID [facility] Last Admin: 06/19/19 16:07 Dose: 2.5 mg Documented by: Alprazolam (Xanax) 0.25 mg PO HS PRN PRN Reason: Anxiety Last Admin: 06/18/19 21:01 Dose: 0.25 mg Documented by: Atorvastatin Calcium (Lipitor) 40 mg PO HS@2100 [facility] Last Admin: 06/18/19 21:01 Dose: 40 mg Documented by: Budesonide/Formoterol Fumarate (Symbicort 160-4.5 Mcg Inhaler) 2 puff INHALATION RT-BID@0800,1700 [facility] Last Admin: 06/19/19 09:02 Dose: Not Given Documented by: Cholecalciferol (Vitamin D3 (25 Mcg = 1000 Iu)) 2,000 unit PO DAILY@1700 [facility] Last Admin: 06/18/19 16:57 Dose: Not Given Documented by: Cyanocobalamin (Vitamin B-12) 1,000 mcg PO DAILY@1700 [facility] Last Admin: 06/18/19 16:57 Dose: Not Given Documented by: Donepezil HCl (Aricept) 5 mg PO DAILY@0800 [facility] Last Admin: 06/19/19 10:13 Dose: 5 mg Documented by: Furosemide (Lasix) 40 mg PO DAILY [facility] Last Admin: 06/19/19 10:13 Dose: 40 mg Documented by: Heparin Sodium (Porcine) (Heparin) 0 unit IV PER PROTOCOL PRN; Protocol PRN Reason: Low PTT Last Admin: 06/19/19 12:55 Dose: 3,300 unit Documented by: Sodium Chloride (Saline 0.9%) 1,000 mls @ 75 mls/hr IV .[id number] [facility] Last Admin: 06/19/19 04:19 Dose: 75 mls/hr Documented by: Heparin Sodium/Sodium Chloride (25,000 unit/ Sodium Chloride) 250 mls @ 7.948 mls/hr IV .Q24H [facility]; Protocol Last Titration: 06/19/19 12:42 Dose: 18 units/kg/hr, 11.921 mls/hr Documented by: Insulin Aspart (Novolog) 0 unit SQ ACHS [facility]; Protocol Last Admin: 06/19/19 13:04 Dose: 2 unit Documented by: Losartan Potassium (Cozaar) 50 mg PO DAILY@0800 [facility] Last Admin: 06/19/19 10:13 Dose: 50 mg Documented by: Metformin HCl (Glucophage) 1,000 mg PO BID@0800,1700 [facility] Last Admin: 06/19/19 13:02 Dose: Not Given Documented by: Montelukast Sodium (Singulair) 10 mg PO HS [facility] Last Admin: 06/18/19 21:01 Dose: 10 mg Documented by: Morphine Sulfate (Morphine Sulfate (Inj)) 5 mg IVP Q3HR PRN PRN Reason: Severe Pain Last Admin: 06/19/19 13:31 Dose: 5 mg Documented by: (Dapagliflozin Propanediol [Farxiga ] 5 Mg) 5 mg PO DAILY [facility] Last Admin: 06/19/19 10:20 Dose: Not Given Documented by: (Liraglutide [ Victoza 2-Orlin] 1.8 Mg) 1.8 mg SQ HS@2100 [facility] Last Admin: 06/18/19 20:37 Dose: Not Given Documented by: Oxcarbazepine (Trileptal) 300 mg PO BID@0800,1700 [facility] Last Admin: 06/19/19 10:13 Dose: 300 mg Documented by: Pregabalin (Lyrica) 150 mg PO BID@0800,2100 [facility] Last Admin: 06/19/19 10:13 Dose: 150 mg Documented by: Physical examination: VITAL SIGNS: 99.3, 73, 21, 116/57, 94% on 2 L GENERAL: Laying in bed, delirious EYES: Pupils equal. Conjunctiva normal. HEENT: External appearance of nose and ears normal, oral cavity dry NECK: JVD not raised; masses not palpable. HEART: Irregular heart sounds, minimal edema. LUNGS: Respiratory rate normal diminished breath sounds ABDOMEN: Soft, nontender, liver spleen not palpable, no masses palpable. PSYCH: Delirious EXTREMITY: Noted dry gangrenous changes of the left small toe and ischemic changes in the other toes, and the third toe, discoloration of the first and second toe. Poor distal pulses INVESTIGATIONS, reviewed in the clinical context: White count 11.8 hemoglobin 7.6 potassium 4 creatinine 0.56 Previous testing White count 7.8 hemoglobin 8.7 potassium 3.8 creatinine 0.75 Assessment: -June 17-PTCA to left superficial femoral, platelet. 2, tibial peroneal arteries with stent and left external iliac artery. - acute on chronic ischemic changes to left foot with already compromise left foot circulation-found to have a thrombus from the groin down to the leg. Received IV heparin and IV TPA -Persistent atrial flutter chronically on eliquis -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 secondary to peripheral arterial disease -Chronic nicotine dependence patient active cigarette smoker -Persistent atrial fibrillation chronically on eliquis -Coronary artery disease a prior history of stent -Primary osteoarthritis -Diabetic peripheral neuropathy -Severe peripheral arterial disease -Mild Cognitive impairment -Chronic gait dysfunction uses a walker -IV heparin monitoring -Acute [id number]-bclo to respond Plan: in the ICU. On IV heparin. Still delirious. Continue current medication treatment plan. Follow with vascular. Prognosis guarded.
[2019-06-19] MEDS: CYANOCOBALAMIN 500 MCG TAB PO SCH (17:13)
[2019-06-19] MEDS: CHOLECALCIFEROL 1,000 UNIT TAB PO SCH (17:13)
[2019-06-19 17:17] LABS: Glucose,Whole Blood 158 mg/dL (75-99)
[2019-06-19 22:00] LABS: Glucose,Whole Blood 153 mg/dL (75-99)
[2019-06-19] MEDS: ATORVASTATIN 40 MG TAB PO SCH (22:09)
[2019-06-19] MEDS: MONTELUKAST 10 MG TAB PO SCH (22:09)
[2019-06-20] MEDS: MORPHINE SULFATE 4 MG/ML SYRINGE IVP PRN ×5 (01:52→21:00)
[2019-06-20] MEDS: HYDROcodone/APAP 7.5-325MG 1 EACH TAB PO PRN (02:53)
[2019-06-20 04:04] LABS: Appearance,Urine Turbid (Clear); Bacteria,Urine Few /hpf; Bilirubin,Urine Negative (Negative); Blood,Urine Moderate (Negative); Budding Yeast,Urine Many /hpf; Color,Urine Yellow; Glucose,Urine (UA) Negative (Negative); Ketones,Urine 1+ (Negative); Leukocyte Esterase,Urine Large (Negative); Mucus,Urine Many /hpf; Nitrite,Urine Negative (Negative); Protein,Urine 3+ (Negative); RBC,Urine 49 /hpf (0-5); WBC,Urine >182 /hpf (0-5)
[2019-06-20 04:06] LABS: Specific Gravity,Urine 1.018 (1.001-1.035)
[2019-06-20 05:35] LABS: Anisocytosis Moderate; Basophils % (A) 0 %; Eosinophils # (A) 0.1 k/uL (0-0.7); Eosinophils % (A) 1 %; HCT 25.5 % (34.0-46.0); HGB 7.2 gm/dL (11.4-16.0); Hypochromasia Marked; Lymphocytes # (A) 1.5 k/uL (1.0-4.8); Lymphocytes % (A) 15 %; MCH 24.2 pg (25.0-35.0); MCHC 28.4 g/dL (31.0-37.0); MCV 85.3 fL (80.0-100.0); Mean Platelet Volume 8.3; Microcytosis Slight; Monocytes # (A) 0.7 k/uL (0-1.0); Monocytes % (A) 7 %; Neutrophils # (A) 7.4 k/uL (1.3-7.7); Neutrophils % (A) 73 %; Platelet Count 276 k/uL (150-450); Poikilocytosis Slight; RBC 2.99 m/uL (3.80-5.40); RDW 20.3 % (11.5-15.5); WBC 10.1 k/uL (3.8-10.6)
[2019-06-20 06:17] LABS: African American GFR (CKD) >90 (>60 ml/min/1.73 sqM); Anion Gap 5 mmol/L; Blood Urea Nitrogen 11 mg/dL (7-17); Calcium 8.1 mg/dL (8.4-10.2); Carbon Dioxide 22 mmol/L (22-30); Chloride 114 mmol/L (98-107); Glucose 147 mg/dL (74-99); Non-African American GFR(CKD) 87 (>60 ml/min/1.73 sqM); Potassium 3.7 mmol/L (3.5-5.1); Sodium 141 mmol/L (137-145)
[2019-06-20] MEDS: HEPARIN SODIUM,PORCINE 5,000 UNIT/ML 1 ML VIAL IV PRN (07:47)
[2019-06-20] MEDS: SYMBICORT 160-4.5 MCG INHALER INHALATION SCH ×2 (08:06→19:31)
[2019-06-20] MEDS: ALBUTEROL NEBULIZED 2.5 MG/3 ML INHALATION SCH ×4 (08:06→19:31)
[2019-06-20 08:14] LABS: Glucose,Whole Blood 171 mg/dL (75-99)
[2019-06-20] MEDS: INSULIN ASPART (NovoLOG) 100 UNIT/ML VIAL SQ SCH ×4 (08:30→20:56)
[2019-06-20] MEDS: DONEPEZIL 5 MG TAB PO SCH (08:31)
[2019-06-20] MEDS: LOSARTAN 50 MG TAB PO SCH (08:31)
[2019-06-20] MEDS: PREGABALIN 75 MG CAP PO SCH ×2 (08:31→20:56)
[2019-06-20] MEDS: metFORMIN 500 MG TAB PO SCH ×2 (08:31→16:52)
[2019-06-20] MEDS: OXcarbazepine 300 MG TAB PO SCH ×2 (08:31→16:53)
[2019-06-20] MEDS: FUROSEMIDE 40 MG TAB PO SCH (08:32)
[2019-06-20] MEDS: SODIUM CHLORIDE 0.9% 1,000 ML IV SCH ×2 (09:26→23:12)
--- NOTE | 2019-06-20 09:26 | P.PN ---
Subjective Progress Note Date: 06/20/19 Patient seen and examined in the ICU. She is status post angioplasty and stent placments to the left lower extremity, she remains on a heparin drip. Patient sitting up getting a breathing treatment per respiratory therapy. No acute changes through the night. The patient continues to moan off and on. She is more alert today. WBC 10.1, Hg 7.2, Hct 25.5, platelets 276. Objective - Vital Signs Vital signs: Vital Signs Temp 98.5 F 06/20/19 08:00 Pulse 82 06/20/19 09:00 Resp 18 06/20/19 09:00 BP 160/81 06/20/19 09:00 Pulse Ox 97 06/20/19 09:00 Intake & Output 06/19/19 06/20/19 06/20/19 18:59 06:59 18:59 Intake Total 818.987 2490.121 354.59 Output Total 835 240 85 Balance 151.435 844.121 269.59 Weight 74.3 kg 73.6 kg Intake: IV 900 975 225 Sodium Chloride 0.9% 1, 900 975 225 000 ml @ 75 mls/hr IV . [id number] [facility] Rx#:[id number] Intake, IV Titration 86.435 109.121 129.59 Amount Heparin Sod,Pork in 0.45% 86.435 109.121 129.59 NaCl 25,000 unit In 0.45 % NaCl 1 250ml.bag @ 12 UNITS/KG/HR 7.948 mls/hr IV .Q24H [facility] Rx#: [id number] Output: Urine 835 240 85 Other: Voiding Method Indwelling Catheter Indwelling Catheter Indwelling Catheter - Exam General appearance: The patient is alert, somewhat confused, in no acute distress but moans off and on. HET: Head is normocephalic and atraumatic. Neck: Supple without lymphadenopathy. Trachea midline. Heart: S1 S2. Regular rate and rhythm. Lungs: No crackles or wheezes are heard. Extremities: Left lower extremity with palpable femoral pulse. Lef tfoot cool to the touch. Positive positive AT and PT Doppler signal. Right groin with nickel sized hematoma, no active bleeding or bruising.. Bluish/purple discoloration to toes on left foot, fifth toe with dry ischemic changes. Ulceration to the medial side of the left great toe, without drainage or odor. - Labs CBC & Chem 7: 06/20/19 05:16 06/20/19 05:16 Labs: Abnormal Lab Results - Last 24 Hours (Table) 06/19/19 06/19/19 06/19/19 Range/Units 09:21 13:00 17:15 RBC (3.80-5.40) m/uL Hgb (11.4-16.0) gm/dL Hct (34.0-46.0) % MCH (25.0-35.0) pg MCHC (31.0-37.0) g/dL RDW (11.5-15.5) % APTT 33.3 H (22.0-30.0) sec Chloride (98-107) mmol/L Glucose (74-99) mg/dL POC Glucose (mg/dL) 171 H 158 H (75-99) mg/dL Calcium (8.4-10.2) mg/dL Urine Appearance (Clear) Urine Protein (Negative) Urine Ketones (Negative) Urine Blood (Negative) Ur Leukocyte Esterase (Negative) Urine RBC (0-5) /hpf Urine WBC (0-5) /hpf Urine WBC Clumps (None) /hpf Urine Bacteria (None) /hpf Urine Mucus (None) /hpf Urine Yeast (Budding) (None) /hpf 06/19/19 06/19/19 06/20/19 Range/Units 19:12 21:59 00:40 RBC (3.80-5.40) m/uL Hgb (11.4-16.0) gm/dL Hct (34.0-46.0) % MCH (25.0-35.0) pg MCHC (31.0-37.0) g/dL RDW (11.5-15.5) % APTT 35.0 H (22.0-30.0) sec Chloride (98-107) mmol/L Glucose (74-99) mg/dL POC Glucose (mg/dL) 153 H (75-99) mg/dL Calcium (8.4-10.2) mg/dL Urine Appearance Turbid H (Clear) Urine Protein 3+ H (Negative) Urine Ketones 1+ H (Negative) Urine Blood Moderate H (Negative) Ur Leukocyte Esterase Large H (Negative) Urine RBC 49 H (0-5) /hpf Urine WBC >182 H (0-5) /hpf Urine WBC Clumps Many H (None) /hpf Urine Bacteria Few H (None) /hpf Urine Mucus Many H (None) /hpf Urine Yeast (Budding) Many H (None) /hpf 06/20/19 06/20/19 06/20/19 Range/Units 05:16 05:16 05:16 RBC 2.99 L (3.80-5.40) m/uL Hgb 7.2 L (11.4-16.0) gm/dL Hct 25.5 L (34.0-46.0) % MCH 24.2 L (25.0-35.0) pg MCHC 28.4 L (31.0-37.0) g/dL RDW 20.3 H (11.5-15.5) % APTT 36.1 H (22.0-30.0) sec Chloride 114 H (98-107) mmol/L Glucose 147 H (74-99) mg/dL POC Glucose (mg/dL) (75-99) mg/dL Calcium 8.1 L (8.4-10.2) mg/dL Urine Appearance (Clear) Urine Protein (Negative) Urine Ketones (Negative) Urine Blood (Negative) Ur Leukocyte Esterase (Negative) Urine RBC (0-5) /hpf Urine WBC (0-5) /hpf Urine WBC Clumps (None) /hpf Urine Bacteria (None) /hpf Urine Mucus (None) /hpf Urine Yeast (Budding) (None) /hpf 06/20/19 Range/Units 08:12 RBC (3.80-5.40) m/uL Hgb (11.4-16.0) gm/dL Hct (34.0-46.0) % MCH (25.0-35.0) pg MCHC (31.0-37.0) g/dL RDW (11.5-15.5) % APTT (22.0-30.0) sec Chloride (98-107) mmol/L Glucose (74-99) mg/dL POC Glucose (mg/dL) 171 H (75-99) mg/dL Calcium (8.4-10.2) mg/dL Urine Appearance (Clear) Urine Protein (Negative) Urine Ketones (Negative) Urine Blood (Negative) Ur Leukocyte Esterase (Negative) Urine RBC (0-5) /hpf Urine WBC (0-5) /hpf Urine WBC Clumps (None) /hpf Urine Bacteria (None) /hpf Urine Mucus (None) /hpf Urine Yeast (Budding) (None) /hpf Assessment and Plan Assessment: 1. Left lower extremity critical limb ischemia with toe wounds, Sonya classification 6 2. 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 Chronic left foot ischemia, with dry gangrenous changes to the left fifth toe 4. Chronic diabetic ulcerations 5. Diabetes mellitus with neuropathy Plan: Discussed patient status with Dr. Bellamy and he states patient may be transferred to medical surgical unit. Continue current treatment. Hemoglobin 7.2, will order one unit of PRBC for anticipated need for surgery and anticipated blood loss. Patient will likely require below the knee amputation. Further recommendations to follow. The above dictated assessment and findings were discussed with Dr. Bellamy. The impression and plan of care have been directed as dictated.
[2019-06-20] MEDS ORDERED: cefTRIAXone 1,000 MG VIAL (IM USE) IM SCH (10:27)
--- NOTE | 2019-06-20 10:44 | PN ---
PROGRESS NOTE PULMONARY/CRITICAL CARE PROGRESS NOTE: DATE OF SERVICE: 06/20/2019 This is a 79-year-old female, postop day #3, status post thrombectomy in the left lower extremity in a patient with a known history of severe peripheral artery disease. The patient might be going back to the operating room today for a left BKA. That is not clear as yet. The patient is currently doing relatively well in the ICU. She is currently on room air. Her saturations are reasonable. She is getting saline at 75 mL an hour and heparin via weight-based protocol. She does have a history of peripheral artery disease, COPD from previous tobacco use, CHF, diabetes, diabetic neuropathy, myocardial infarction, DJD, trigeminal neuralgia, Raynaud disease, hypoxemic respiratory failure, anemia, previous pacemaker insertion, previous PCI with stent placement, as well as other medical problems. Her vascular surgeon is Dr. Aguilera. Again, she is resting comfortably without major complaints in 265. Current vital signs are reviewed. Her temperature is 98.5, heart rate 83, respiratory rate 19, blood pressure 124/61 mean 82 and room air saturation 94%. Appears in no acute distress. HEENT: Examination is grossly unremarkable. No supplemental oxygen. Mucous membranes are dry. NECK: Supple. Full range of motion. No adenopathy or thyromegaly. Neck veins are flat. CARDIOVASCULAR: Examination reveals regular rhythm and rate. Heart rate in the high 70s, low 80s. S1, S2 normal. Heart sounds are distant. No murmur. LUNGS: Reveal mostly clear breath sounds. No wheezes, rhonchi, or crackles. ABDOMEN: Soft, bowel sounds are heard. EXTREMITIES: Intact. The left lower extremity is cold. There is ulcerations and dry gangrene to the left foot and toe area. This is unchanged. SKIN: Without rash. NEUROLOGIC: Examination is difficult to assess but appears to be reasonably normal and nonfocal. Microbiologic studies are thus far negative. Labs are reviewed. White count 10.1, hemoglobin 7.2, hematocrit 25.5, platelet count 276,000. Sodium 141, potassium 3.7, chloride 114, CO2 is 22, anion gap is 5. BUN and creatinine were 11 and 0.61. Urine is clearly infected. No recent chest x-ray to report. Medications are reviewed. Her medications appear to be appropriate. She is on Symbicort, updrafts, and all her usual medications. I do not see any antibiotics and probably we should add something. ASSESSMENT: 1. Postoperative day #3, status post thrombectomy of the left lower extremity in a patient with a history of severe peripheral artery disease. 2. Anticipated left below-knee amputation, possibly today or tomorrow. 3. History of chronic obstructive pulmonary disease from previous heavy tobacco use. 4. Rule out urinary tract infection. 5. History of congestive heart failure. 6. Diabetes with diabetic neuropathy. 7. Myocardial infarction by history. 8. Degenerative joint disease. 9. Trigeminal neuralgia. 10.History of rosacea. 11.History of Raynaud's disease. 12.Hypoxemic respiratory failure. 13.Chronic anemia. 14.Status post pacemaker insertion. 15.Status post PCI with stent placement. 16.Multiple other medical problems. Plan: Will go ahead and add an antibiotic. I probably will add some Rocephin 1 g q. day. Will start that today. Possible [id number] amputation either today or tomorrow. Will continue to follow. Her COPD appears to be relatively stable. She is on room air. Saturations are excellent. MMODL / IJN: [id number] / [id number]
[2019-06-20 11:30] LABS: Glucose,Whole Blood 162 mg/dL (75-99)
[2019-06-20] MEDS ORDERED: FUROSEMIDE 10 MG/ML 2 ML VIAL IV ONE (12:39)
[2019-06-20] MEDS: HEPARIN SOD,PORK IN 0.45% NACL 25,000 UNIT in 0.45% NACL 1 250ML.BAG IV SCH (12:55)
[2019-06-20] MEDS: CYANOCOBALAMIN 500 MCG TAB PO SCH (16:52)
[2019-06-20] MEDS: CHOLECALCIFEROL 1,000 UNIT TAB PO SCH (16:53)
[2019-06-20 17:03] LABS: Glucose,Whole Blood 145 mg/dL (75-99)
[2019-06-20 20:52] LABS: Glucose,Whole Blood 169 mg/dL (75-99)
[2019-06-20] MEDS: MONTELUKAST 10 MG TAB PO SCH (20:56)
[2019-06-20] MEDS: ATORVASTATIN 40 MG TAB PO SCH (20:56)
--- NOTE | 2019-06-20 21:24 | P.PN ---
Progress Note - Text Progress Note Date: 06/20/19 Chief Complaint: Left foot cold History of presenting complaint: This is a 79-year-old patient of Dr. Giraldo. Chronic stable medical conditions include coronary artery disease with stent, osteoarthritis, diabetic peripheral neuropathy, rosacea, atrial fibrillation on eliquis. Patient long-standing smoker. Patient has chronic wounds on the toes of the left foot. Known significant peripheral arterial disease. She does follow at the wound care center. Was followed by Dr. Rose from podiatry. Does use a walker. Patient was at the wound Center. Seen by the wound care DIVISIONAL MERCHANDISING MANAGER Jagruti. It was assessment of the patient's left foot was cold and then usual. Patient has been seen by Dr. Aguilera. Patient was admitted for further management. He was consulted. Patient's pain in the left foot is not more than her baseline. No fever no chills. Admitted with acute on chronic ischemic changes to the left foot. Patient is already on eliquis.-Held switched to Lovenox. On June 16-autogram performed showed occluded superficial femoral artery with several collaterals leading down to the lower leg with reconstitution of the anterior table of artery of the ankle and peripheral artery at the midcalf. Patient then was put on TPA and IV heparin. For the thrombus. June 17-angioplasty stenting to several lower extremity vessels. Today-in ICU. diet. Eating about 50-75%. Intermittent pain. Leg is warm down to the ankle left-. Review of systems: Was done for constitutional, cardiovascular, GI, pulmonary. relevant finding as above Active Medications Acetaminophen (Tylenol Tab) 500 mg PO Q6HR PRN PRN Reason: Moderate Pain Last Admin: 06/16/19 10:37 Dose: 500 mg Documented by: Hydrocodone Bitart/Acetaminophen ([place] 7.5-325) 1 each PO Q6H PRN PRN Reason: Pain Last Admin: 06/20/19 02:53 Dose: 1 each Documented by: Albuterol Sulfate (Ventolin Nebulized) 2.5 mg INHALATION RT-QID PRN PRN Reason: Shortness Of Breath Or Wheezing Albuterol Sulfate (Ventolin Nebulized) 2.5 mg INHALATION RT-QID [facility] Last Admin: 06/20/19 19:31 Dose: 2.5 mg Documented by: Alprazolam (Xanax) 0.25 mg PO HS PRN PRN Reason: Anxiety Last Admin: 06/18/19 21:01 Dose: 0.25 mg Documented by: Atorvastatin Calcium (Lipitor) 40 mg PO HS@2100 [facility] Last Admin: 06/20/19 20:56 Dose: 40 mg Documented by: Budesonide/Formoterol Fumarate (Symbicort 160-4.5 Mcg Inhaler) 2 puff INHALATION RT-BID@0800,1700 [facility] Last Admin: 06/20/19 19:31 Dose: 2 puff Documented by: Cholecalciferol (Vitamin D3 (25 Mcg = 1000 Iu)) 2,000 unit PO DAILY@1700 [facility] Last Admin: 06/20/19 16:53 Dose: 2,000 unit Documented by: Cyanocobalamin (Vitamin B-12) 1,000 mcg PO DAILY@1700 [facility] Last Admin: 06/20/19 16:52 Dose: 1,000 mcg Documented by: Donepezil HCl (Aricept) 5 mg PO DAILY@0800 [facility] Last Admin: 06/20/19 08:31 Dose: 5 mg Documented by: Furosemide (Lasix) 40 mg PO DAILY [facility] Last Admin: 06/20/19 08:32 Dose: 40 mg Documented by: Heparin Sodium (Porcine) (Heparin) 0 unit IV PER PROTOCOL PRN; Protocol PRN Reason: Low PTT Last Admin: 06/20/19 07:47 Dose: 1,850 unit Documented by: Sodium Chloride (Saline 0.9%) 1,000 mls @ 75 mls/hr IV .[id number] [facility] Last Admin: 06/20/19 09:26 Dose: 75 mls/hr Documented by: Heparin Sodium/Sodium Chloride (25,000 unit/ Sodium Chloride) 250 mls @ 7.948 mls/hr IV .Q24H [facility]; Protocol Last Admin: 06/20/19 12:55 Dose: 23.03 units/kg/hr, 15.253 mls/hr Documented by: Ceftriaxone Sodium 1 gm/ (Sodium Chloride) 50 mls @ 100 mls/hr IVPB Q24HR [facility] Last Admin: 06/20/19 12:54 Dose: 100 mls/hr Documented by: Insulin Aspart (Novolog) 0 unit SQ ACHS [facility]; Protocol Last Admin: 06/20/19 20:56 Dose: 2 unit Documented by: Losartan Potassium (Cozaar) 50 mg PO DAILY@0800 [facility] Last Admin: 06/20/19 08:31 Dose: 50 mg Documented by: Metformin HCl (Glucophage) 1,000 mg PO BID@0800,1700 [facility] Last Admin: 06/20/19 16:52 Dose: 1,000 mg Documented by: Montelukast Sodium (Singulair) 10 mg PO HS [facility] Last Admin: 06/20/19 20:56 Dose: 10 mg Documented by: Morphine Sulfate (Morphine Sulfate (Inj)) 5 mg IVP Q3HR PRN PRN Reason: Severe Pain Last Admin: 06/20/19 21:00 Dose: 5 mg Documented by: (Dapagliflozin Propanediol [Farxiga ] 5 Mg) 5 mg PO DAILY [facility] Last Admin: 06/20/19 09:23 Dose: Not Given Documented by: (Liraglutide [ Victoza 2-Orlin] 1.8 Mg) 1.8 mg SQ HS@2100 [facility] Last Admin: 06/20/19 20:58 Dose: Not Given Documented by: Oxcarbazepine (Trileptal) 300 mg PO BID@0800,1700 [facility] Last Admin: 06/20/19 16:53 Dose: 300 mg Documented by: Pregabalin (Lyrica) 150 mg PO BID@0800,2100 [facility] Last Admin: 06/20/19 20:56 Dose: 150 mg Documented by: Physical examination: VITAL SIGNS: 98.8, 17, 88, 159/66, 97% GENERAL: Laying in bed,more awake today EYES: Pupils equal. Conjunctiva normal. HEENT: External appearance of nose and ears normal, oral cavity dry NECK: JVD not raised; masses not palpable. HEART: Irregular heart sounds, minimal edema. LUNGS: Respiratory rate normal diminished breath sounds ABDOMEN: Soft, nontender, liver spleen not palpable, no masses palpable. PSYCH: answering questions EXTREMITY: Noted dry gangrenous changes of the left small toe and ischemic changes in the other toes, and the third toe, discoloration of the first and second toe. leg is warm - down the ankle INVESTIGATIONS, reviewed in the clinical context: white count 10.1 hemoglobin 7.2 potassium 3.7 Previous testing White count 7.8 hemoglobin 8.7 potassium 3.8 creatinine 0.75 Assessment: -June 17-PTCA to left superficial femoral, platelet. 2, tibial peroneal arteries with stent and left external iliac artery. - acute on chronic ischemic changes to left foot with already compromise left foot circulation-found to have a thrombus from the groin down to the leg. Received IV heparin and IV TPA -Persistent atrial flutter chronically on eliquis -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 secondary to peripheral arterial disease -Chronic nicotine dependence patient active cigarette smoker -Persistent atrial fibrillation chronically on eliquis -Coronary artery disease a prior history of stent -Primary osteoarthritis -Diabetic peripheral neuropathy -Severe peripheral arterial disease -Mild Cognitive impairment -Chronic gait dysfunction uses a walker -IV heparin monitoring -Acute kbxgaqss-[id number]-rvlr to respond Plan: in the ICU. On IV heparin. feeling a bit better. Eating better. Got a call from Dr. Aguilera from vascular surgery. She has been talking to patient's son. possibly left below-knee amputation tomorrow. has no other option. Patient is a moderate risk for surgery but medically stable. I had also talked to patient about amputation which was first admitted. Patient had been agreeable to the same.
[2019-06-20 23:45] LABS: Anisocytosis Moderate; HCT 28.1 % (34.0-46.0); HGB 8.3 gm/dL (11.4-16.0); Hypochromasia Marked; MCH 24.9 pg (25.0-35.0); MCHC 29.7 g/dL (31.0-37.0); MCV 83.7 fL (80.0-100.0); Mean Platelet Volume 8.4; Microcytosis Slight; Platelet Count 295 k/uL (150-450); Poikilocytosis Moderate; RBC 3.35 m/uL (3.80-5.40); RDW 20.7 % (11.5-15.5); WBC 12.7 k/uL (3.8-10.6)
[2019-06-21] MEDS: SODIUM CHLORIDE 0.9% 1,000 ML in EMPTY BAG 1 BAG IV SCH ×2 (00:30→08:56)
[2019-06-21] MEDS: MORPHINE SULFATE 4 MG/ML SYRINGE IVP PRN ×3 (00:30→17:00)
[2019-06-21] MEDS: HEPARIN SOD,PORK IN 0.45% NACL 25,000 UNIT in 0.45% NACL 1 250ML.BAG IV SCH ×2 (04:38→21:16)
[2019-06-21 06:07] LABS: Glucose,Whole Blood 172 mg/dL (75-99)
[2019-06-21] MEDS: INSULIN ASPART (NovoLOG) 100 UNIT/ML VIAL SQ SCH ×4 (06:54→21:01)
[2019-06-21] MEDS: OXcarbazepine 300 MG TAB PO SCH ×2 (06:55→16:59)
[2019-06-21] MEDS: DONEPEZIL 5 MG TAB PO SCH (06:55)
[2019-06-21] MEDS: PREGABALIN 75 MG CAP PO SCH ×2 (06:56→21:01)
[2019-06-21] MEDS: LOSARTAN 50 MG TAB PO SCH (06:56)
[2019-06-21] MEDS: HYDROcodone/APAP 7.5-325MG 1 EACH TAB PO PRN ×3 (06:57→21:16)
[2019-06-21] MEDS: FUROSEMIDE 40 MG TAB PO SCH (06:57)
[2019-06-21 07:39] LABS: Anisocytosis Moderate; Basophils % (A) 0 %; Eosinophils # (A) 0.1 k/uL (0-0.7); Eosinophils % (A) 1 %; HCT 27.9 % (34.0-46.0); Hypochromasia Marked; Lymphocytes # (A) 0.9 k/uL (1.0-4.8); Lymphocytes % (A) 9 %; MCHC 28.6 g/dL (31.0-37.0); MCV 83.9 fL (80.0-100.0); Mean Platelet Volume 8.6; Microcytosis Slight; Monocytes # (A) 0.7 k/uL (0-1.0); Monocytes % (A) 6 %; Neutrophils # (A) 8.5 k/uL (1.3-7.7); Neutrophils % (A) 81 %; Platelet Count 310 k/uL (150-450); Poikilocytosis Moderate; RBC 3.32 m/uL (3.80-5.40); RDW 20.6 % (11.5-15.5); WBC 10.5 k/uL (3.8-10.6)
[2019-06-21] MEDS: SYMBICORT 160-4.5 MCG INHALER INHALATION SCH ×2 (07:56→21:28)
[2019-06-21] MEDS: ALBUTEROL NEBULIZED 2.5 MG/3 ML INHALATION SCH ×4 (07:56→21:28)
[2019-06-21] MEDS: metFORMIN 500 MG TAB PO SCH ×2 (08:48→16:59)
[2019-06-21] MEDS: SODIUM CHLORIDE 0.9% 1,000 ML IV SCH (08:51)
[2019-06-21] MEDS ORDERED: cefTRIAXone 1,000 MG VIAL (IM USE) IM SCH (09:00)
[2019-06-21 11:27] LABS: Glucose,Whole Blood 165 mg/dL (75-99)
--- NOTE | 2019-06-21 14:17 | P.PN ---
Subjective Progress Note Date: 06/21/19 Principal diagnosis: left foot gangrene Patient seen and examined. Complaining of pain at the left foot. No other complaints. Objective - Vital Signs Vital signs: Vital Signs Temp 98.1 F 06/21/19 08:00 Pulse 91 06/21/19 12:00 Resp 20 06/21/19 12:00 BP 158/92 06/21/19 12:00 Pulse Ox 98 06/21/19 12:00 Intake & Output 06/20/19 06/21/19 06/21/19 18:59 06:59 18:59 Intake Total 1317.873 314.726 64.063 Output Total 500 310 Balance 817.873 4.726 64.063 Weight 77.5 kg Intake: IV 750 75 Sodium Chloride 0.9% 1, 750 75 000 ml @ 75 mls/hr IV . [id number] [facility] Rx#:[id number] Intake, IV Titration 257.873 239.726 64.063 Amount Heparin Sod,Pork in 0.45% 207.873 239.726 64.063 NaCl 25,000 unit In 0.45 % NaCl 1 250ml.bag @ 12 UNITS/KG/HR 7.948 mls/hr IV .Q24H [facility] Rx#: [id number] cefTRIAXone 1 gm In 50 Sodium Chloride 0.9% 50 ml @ 100 mls/hr IVPB Q24HR [facility] Rx#:[id number] Oral 0 Blood Product 310 Rc Pheresis 2 As3 Unit 310 [id number] Output: Urine 500 310 Uretheral (Mathews) 250 Other: Voiding Method Indwelling Catheter Indwelling Catheter Indwelling Catheter - Exam Mild distress, moaning Poor capillary refill left foot. Dry gangrene left toes and forefoot. +tenderness to palpation of the left foot and lower calf. - EENT Eyes: Present: PERRLA - Respiratory Respiratory: bilateral: CTA - Cardiovascular Rhythm: regular - Labs CBC & Chem 7: 06/21/19 07:18 06/20/19 05:16 Labs: Abnormal Lab Results - Last 24 Hours (Table) 06/20/19 06/20/19 06/20/19 Range/Units 13:52 14:22 17:01 WBC (3.8-10.6) k/uL RBC (3.80-5.40) m/uL Hgb (11.4-16.0) gm/dL Hct (34.0-46.0) % MCH (25.0-35.0) pg MCHC (31.0-37.0) g/dL RDW (11.5-15.5) % Neutrophils # (1.3-7.7) k/uL Lymphocytes # (1.0-4.8) k/uL APTT 44.2 H (22.0-30.0) sec POC Glucose (mg/dL) 145 H (75-99) mg/dL Crossmatch See Detail 06/20/19 06/20/19 06/21/19 Range/Units 20:50 23:31 06:05 WBC 12.7 H (3.8-10.6) k/uL RBC 3.35 L (3.80-5.40) m/uL Hgb 8.3 L (11.4-16.0) gm/dL Hct 28.1 L (34.0-46.0) % MCH 24.9 L (25.0-35.0) pg MCHC 29.7 L (31.0-37.0) g/dL RDW 20.7 H (11.5-15.5) % Neutrophils # (1.3-7.7) k/uL Lymphocytes # (1.0-4.8) k/uL APTT (22.0-30.0) sec POC Glucose (mg/dL) 169 H 172 H (75-99) mg/dL Crossmatch 06/21/19 06/21/19 06/21/19 Range/Units 07:18 07:18 11:25 WBC (3.8-10.6) k/uL RBC 3.32 L (3.80-5.40) m/uL Hgb 8.0 L (11.4-16.0) gm/dL Hct 27.9 L (34.0-46.0) % MCH 24.0 L (25.0-35.0) pg MCHC 28.6 L (31.0-37.0) g/dL RDW 20.6 H (11.5-15.5) % Neutrophils # 8.5 H (1.3-7.7) k/uL Lymphocytes # 0.9 L (1.0-4.8) k/uL APTT 34.2 H (22.0-30.0) sec POC Glucose (mg/dL) 165 H (75-99) mg/dL Crossmatch Assessment and Plan Assessment: Acute on chronic left lower extremity foot ischemia tibial artery occlusive disease Critical limb ischemia left lower extremity Plan: Plan was for amputation today but case was not boarded. Will perform amputation tomorrow at 8am. Discussed with patient and daughter who agree with procedure. Plan will be for BKA unless tissue is ischemic then will perform AKA.
[2019-06-21 16:35] LABS: Glucose,Whole Blood 157 mg/dL (75-99)
[2019-06-21] MEDS: CYANOCOBALAMIN 500 MCG TAB PO SCH (16:58)
[2019-06-21] MEDS: CHOLECALCIFEROL 1,000 UNIT TAB PO SCH (16:59)
--- NOTE | 2019-06-21 17:05 | P.PN ---
Progress Note - Text Progress Note Date: 06/21/19 Chief Complaint: Left foot cold History of presenting complaint: This is a 79-year-old patient of Dr. Giraldo. Chronic stable medical conditions include coronary artery disease with stent, osteoarthritis, diabetic peripheral neuropathy, rosacea, atrial fibrillation on eliquis. Patient long-standing smoker. Patient has chronic wounds on the toes of the left foot. Known significant peripheral arterial disease. She does follow at the wound care center. Was followed by Dr. Rose from podiatry. Does use a walker. Patient was at the wound Center. Seen by the wound care CADD MANAGER Jagruti. It was assessment of the patient's left foot was cold and then usual. Patient has been seen by Dr. Aguilera. Patient was admitted for further management. He was consulted. Patient's pain in the left foot is not more than her baseline. No fever no chills. Admitted with acute on chronic ischemic changes to the left foot. Patient is already on eliquis.-Held switched to Lovenox. On June 16-autogram performed showed occluded superficial femoral artery with several collaterals leading down to the lower leg with reconstitution of the anterior table of artery of the ankle and peripheral artery at the midcalf. Patient then was put on TPA and IV heparin. For the thrombus. June 17-angioplasty stenting to several lower extremity vessels. Today-patient moved to the medical floor. Daughter the bedside. Eating lunch. Feeling better. Pain in the left foot. Review of systems: Was done for constitutional, cardiovascular, GI, pulmonary. relevant finding as above Active Medications Acetaminophen (Tylenol Tab) 500 mg PO Q6HR PRN PRN Reason: Moderate Pain Last Admin: 06/16/19 10:37 Dose: 500 mg Documented by: Hydrocodone Bitart/Acetaminophen ([place] 7.5-325) 1 each PO Q6H PRN PRN Reason: Pain Last Admin: 06/21/19 12:26 Dose: 1 each Documented by: Albuterol Sulfate (Ventolin Nebulized) 2.5 mg INHALATION RT-QID PRN PRN Reason: Shortness Of Breath Or Wheezing Albuterol Sulfate (Ventolin Nebulized) 2.5 mg INHALATION RT-QID [facility] Last Admin: 06/21/19 16:03 Dose: Not Given Documented by: Alprazolam (Xanax) 0.25 mg PO HS PRN PRN Reason: Anxiety Last Admin: 06/18/19 21:01 Dose: 0.25 mg Documented by: Atorvastatin Calcium (Lipitor) 40 mg PO HS@2100 [facility] Last Admin: 06/20/19 20:56 Dose: 40 mg Documented by: Budesonide/Formoterol Fumarate (Symbicort 160-4.5 Mcg Inhaler) 2 puff INHALATION RT-BID@0800,1700 [facility] Last Admin: 06/21/19 07:56 Dose: Not Given Documented by: Cholecalciferol (Vitamin D3 (25 Mcg = 1000 Iu)) 2,000 unit PO DAILY@1700 [facility] Last Admin: 06/21/19 16:59 Dose: 2,000 unit Documented by: Cyanocobalamin (Vitamin B-12) 1,000 mcg PO DAILY@1700 [facility] Last Admin: 06/21/19 16:58 Dose: 1,000 mcg Documented by: Donepezil HCl (Aricept) 5 mg PO DAILY@0800 [facility] Last Admin: 06/21/19 06:55 Dose: 5 mg Documented by: Furosemide (Lasix) 40 mg PO DAILY [facility] Last Admin: 06/21/19 06:57 Dose: 40 mg Documented by: Heparin Sodium (Porcine) (Heparin) 0 unit IV PER PROTOCOL PRN; Protocol PRN Reason: Low PTT Last Admin: 06/20/19 07:47 Dose: 1,850 unit Documented by: Sodium Chloride (Saline 0.9%) 1,000 mls @ 75 mls/hr IV .[id number] [facility] Last Admin: 06/21/19 08:51 Dose: 75 mls/hr Documented by: Heparin Sodium/Sodium Chloride (25,000 unit/ Sodium Chloride) 250 mls @ 7.948 mls/hr IV .Q24H [facility]; Protocol Last Titration: 06/21/19 08:50 Dose: 26.03 units/kg/hr, 17.24 mls/hr Documented by: Ceftriaxone Sodium 1 gm/ (Sodium Chloride) 50 mls @ 100 mls/hr IVPB Q24HR [facility] Last Admin: 06/21/19 08:51 Dose: 100 mls/hr Documented by: Insulin Aspart (Novolog) 0 unit SQ ACHS [facility]; Protocol Last Admin: 06/21/19 16:59 Dose: 1 unit Documented by: Losartan Potassium (Cozaar) 50 mg PO DAILY@0800 [facility] Last Admin: 06/21/19 06:56 Dose: 50 mg Documented by: Metformin HCl (Glucophage) 1,000 mg PO BID@0800,1700 [facility] Last Admin: 06/21/19 16:59 Dose: 1,000 mg Documented by: Montelukast Sodium (Singulair) 10 mg PO HS [facility] Last Admin: 06/20/19 20:56 Dose: 10 mg Documented by: Morphine Sulfate (Morphine Sulfate (Inj)) 5 mg IVP Q3HR PRN PRN Reason: Severe Pain Last Admin: 06/21/19 17:00 Dose: 5 mg Documented by: (Dapagliflozin Propanediol [Farxiga ] 5 Mg) 5 mg PO DAILY [facility] Last Admin: 06/21/19 06:53 Dose: Not Given Documented by: (Liraglutide [ Victoza 2-Orlin] 1.8 Mg) 1.8 mg SQ HS@2100 [facility] Last Admin: 06/20/19 20:58 Dose: Not Given Documented by: Oxcarbazepine (Trileptal) 300 mg PO BID@0800,1700 [facility] Last Admin: 06/21/19 16:59 Dose: 300 mg Documented by: Pregabalin (Lyrica) 150 mg PO BID@0800,2100 [facility] Last Admin: 06/21/19 06:56 Dose: 150 mg Documented by: Physical examination: VITAL SIGNS: 98.2, 72, 20, 159/78, 98% room air GENERAL: Sitting up, we'll communicate today EYES: Pupils equal. Conjunctiva normal. HEENT: External appearance of nose and ears normal, oral cavity dry NECK: JVD not raised; masses not palpable. HEART: Irregular heart sounds, minimal edema. LUNGS: Respiratory rate normal diminished breath sounds ABDOMEN: Soft, nontender, liver spleen not palpable, no masses palpable. PSYCH: Answering questions EXTREMITY: Noted dry gangrenous changes of the left small toe and ischemic changes in the other toes, and the third toe, discoloration of the first and second toe. leg is warm - down the ankle INVESTIGATIONS, reviewed in the clinical context: White count 10.5 hemoglobin 8 Previous testing White count 7.8 hemoglobin 8.7 potassium 3.8 creatinine 0.75 Assessment: -June 17-PTCA to left superficial femoral, platelet. 2, tibial peroneal arteries with stent and left external iliac artery. - acute on chronic ischemic changes to left foot with already compromise left foot circulation-found to have a thrombus from the groin down to the leg. Received IV heparin and IV TPA -Persistent atrial flutter chronically on eliquis -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 secondary to peripheral arterial disease -Chronic nicotine dependence patient active cigarette smoker -Persistent atrial fibrillation chronically on eliquis -Coronary artery disease a prior history of stent -Primary osteoarthritis -Diabetic peripheral neuropathy -Severe peripheral arterial disease -Mild Cognitive impairment -Chronic gait dysfunction uses a walker -IV heparin monitoring -Acute yxpcibhs-awcafrvikaxvzw-niry to respond Plan: Patient's surgery been rescheduled for tomorrow morning. Spoke at length with the patient patient daughter. Questions were answered.
[2019-06-21 20:12] LABS: Glucose,Whole Blood 189 mg/dL (75-99)
[2019-06-21] MEDS: MONTELUKAST 10 MG TAB PO SCH (21:00)
[2019-06-21] MEDS: ATORVASTATIN 40 MG TAB PO SCH (21:00)
[2019-06-22] MEDS: HYDROcodone/APAP 7.5-325MG 1 EACH TAB PO PRN (04:04)
[2019-06-22] MEDS: SODIUM CHLORIDE 0.9% 1,000 ML IV SCH ×2 (04:06→10:41)
[2019-06-22] MEDS: INSULIN ASPART (NovoLOG) 100 UNIT/ML VIAL SQ SCH ×4 (05:20→22:12)
[2019-06-22 06:33] LABS: Glucose,Whole Blood 175 mg/dL (75-99)
[2019-06-22] MEDS: metFORMIN 500 MG TAB PO SCH ×2 (06:55→15:43)
[2019-06-22] MEDS ORDERED: GLYCOPYRROLATE 0.2 MG/ML 2 ML VIAL ONE (07:57)
[2019-06-22] MEDS ORDERED: SUCCINYLCHOLINE CHLORIDE 100 MG/5 ML SYR IV ONE (07:57)
[2019-06-22] MEDS ORDERED: ROCURONIUM BROMIDE 10 MG/ML 5 ML VIAL IV ONE (07:57)
[2019-06-22] MEDS ORDERED: PROPOFOL 10 MG/ML 20 ML VIAL IV ONE (07:57)
[2019-06-22] MEDS ORDERED: LIDOCAINE 1% INJ 10MG/ML (20 ML MDV) ONE (07:57)
[2019-06-22] MEDS ORDERED: HYDROmorphone (PF) 1 MG/ML ONE (07:57)
[2019-06-22] MEDS ORDERED: NEOSTIGMINE 1 MG/ML 10 ML VIAL ONE (07:57)
[2019-06-22] MEDS ORDERED: fentaNYL (PF) 50 MCG/ML 2 ML AMP ONE (07:57)
[2019-06-22] MEDS: ALBUTEROL NEBULIZED 2.5 MG/3 ML INHALATION SCH ×4 (07:59→21:01)
[2019-06-22] MEDS: SYMBICORT 160-4.5 MCG INHALER INHALATION SCH ×2 (07:59→21:00)
[2019-06-22] MEDS ORDERED: SODIUM CHLORIDE 0.9% 1,000 ML IV ONE (08:00)
[2019-06-22] MEDS ORDERED: ceFAZolin 1,000 MG VIAL IVPB ONE (08:10)
[2019-06-22] MEDS: HYDROmorphone 0.5 MG/0.5 ML SYRINGE IVP PRN ×3 (10:15→10:32)
[2019-06-22 10:41] LABS: Glucose,Whole Blood 172 mg/dL (75-99)
--- NOTE | 2019-06-22 10:48 | P.OP ---
Date of Procedure: 06/22/19 Description of Procedure: Preoperative diagnosis: Critical limb ischemia of the left lower extremity with gangrene involving first through fifth toes. Postoperative diagnosis: Same Procedure: Left below-knee amputation Surgeon: Ale Anesthesia: Gen. day Estimated blood loss: 50 mL Complications: None Condition: Stable Indications: 79-year-old female who is well known to my office originally presented to the hospital secondary to cool extremity on the left. She does have a history of multiple revascularizations of the left lower extremity as well as acute occlusions in the past most recently underwent angiogram with thrombolytics and stenting of her SFA extending into the tibial peroneal trunk as well as the left anterior tibial artery in attempt to salvage her left foot. Since that procedure her wounds have not been healing and her pain has been severe at her foot extending up to her ankle. She does have warmth to her calf without tenderness to palpation and therefore we discussed below-knee amputation at this time. She presents today for procedure. Operative narrative: After written and informed consent was obtained the patient all risks benefits and complications were described the patient was brought to the operative suite and laid in a supine position. The area of the left leg was prepped and draped in the usual sterile fashion after appropriate anesthetic was performed per the anesthesiologist. A timeout was performed in normal fashion antibiotics were administered prior to incision. A posterior flap incision was then created with a 10 blade scalpel and dissection was carried down to the tibial and fibula with electrocautery. Upon dissection the tibioperoneal trunk and venous structures were encountered and ligated in normal fashion. The tibia and fibula were then transected with a reciprocating saw. Utilizing a large knife the soft tissue was removed from the bone and the lower leg was transected. The limb was then sent off for pathology. All bleeding structures were stented and ligated. The popliteal artery and vein were encountered and ligated in normal fashion. High ligation was also performed of the nerve. Once completed the tissue was irrigated with antibiotic solution. Once hemostatic the fascia was reapproximated with 2-0 Vicryl suture and the skin was approximated with renay. There was some moderate edema noted and 2-0 nylon suture was placed and a vertical mattress fashion to help secure the skin edges. The area was then cleansed, dressed with 4 x 4's, Kerlix, Anthony wrap and knee immobilizer were placed. Patient tied procedure well and was sent back to her room for recovery.
[2019-06-22 11:27] LABS: Glucose,Whole Blood 180 mg/dL (75-99)
[2019-06-22] MEDS: LOSARTAN 50 MG TAB PO SCH (11:28)
[2019-06-22] MEDS: DONEPEZIL 5 MG TAB PO SCH (11:28)
[2019-06-22] MEDS: OXcarbazepine 300 MG TAB PO SCH ×2 (11:28→15:43)
[2019-06-22] MEDS: PREGABALIN 75 MG CAP PO SCH ×2 (11:28→22:12)
[2019-06-22] MEDS: FUROSEMIDE 40 MG TAB PO SCH (11:28)
[2019-06-22] MEDS: LACTATED RINGERS 1,000 ML IV SCH (11:29)
[2019-06-22] MEDS: CHOLECALCIFEROL 1,000 UNIT TAB PO SCH (15:42)
[2019-06-22] MEDS: CYANOCOBALAMIN 500 MCG TAB PO SCH (15:43)
[2019-06-22] MEDS: MORPHINE SULFATE 4 MG/ML SYRINGE IVP PRN ×2 (15:43→23:34)
[2019-06-22 16:28] LABS: Glucose,Whole Blood 179 mg/dL (75-99)
--- NOTE | 2019-06-22 17:06 | P.PN ---
Progress Note - Text Progress Note Date: 06/22/19 Chief Complaint: Left foot cold History of presenting complaint: This is a 79-year-old patient of Dr. Giraldo. Chronic stable medical conditions include coronary artery disease with stent, osteoarthritis, diabetic peripheral neuropathy, rosacea, atrial fibrillation on eliquis. Patient long-standing smoker. Patient has chronic wounds on the toes of the left foot. Known significant peripheral arterial disease. She does follow at the wound care center. Was followed by Dr. Rose from podiatry. Does use a walker. Patient was at the wound Center. Seen by the wound care MEAT WASHER Jagruti. It was assessment of the patient's left foot was cold and then usual. Patient has been seen by Dr. Aguilera. Patient was admitted for further management. He was consulted. Patient's pain in the left foot is not more than her baseline. No fever no chills. Admitted with acute on chronic ischemic changes to the left foot. Patient is already on eliquis.-Held switched to Lovenox. On June 16-autogram performed showed occluded superficial femoral artery with several collaterals leading down to the lower leg with reconstitution of the anterior table of artery of the ankle and peripheral artery at the midcalf. Patient then was put on TPA and IV heparin. For the thrombus. June 17-angioplasty stenting to several lower extremity vessels. Today-underwent left knee amputation. Left leg in a brace. Patient sedated postoperatively. Arousable. Review of systems: Was done for constitutional, cardiovascular, GI, pulmonary. relevant finding as above Active Medications Acetaminophen (Tylenol Tab) 500 mg PO Q6HR PRN PRN Reason: Moderate Pain Last Admin: 06/16/19 10:37 Dose: 500 mg Documented by: Hydrocodone Bitart/Acetaminophen ([place] 7.5-325) 1 each PO Q6H PRN PRN Reason: Pain Last Admin: 06/22/19 04:04 Dose: 1 each Documented by: Albuterol Sulfate (Ventolin Nebulized) 2.5 mg INHALATION RT-QID PRN PRN Reason: Shortness Of Breath Or Wheezing Albuterol Sulfate (Ventolin Nebulized) 2.5 mg INHALATION RT-QID FRANTZ Last Admin: 06/22/19 15:17 Dose: Not Given Documented by: Alprazolam (Xanax) 0.25 mg PO HS PRN PRN Reason: Anxiety Last Admin: 06/18/19 21:01 Dose: 0.25 mg Documented by: Apixaban (Eliquis) 5 mg PO BID [facility] Atorvastatin Calcium (Lipitor) 40 mg PO HS@2100 [facility] Last Admin: 06/21/19 21:00 Dose: 40 mg Documented by: Budesonide/Formoterol Fumarate (Symbicort 160-4.5 Mcg Inhaler) 2 puff INHALATION RT-BID@0800,1700 [facility] Last Admin: 06/22/19 07:59 Dose: Not Given Documented by: Cholecalciferol (Vitamin D3 (25 Mcg = 1000 Iu)) 2,000 unit PO DAILY@1700 [facility] Last Admin: 06/22/19 15:42 Dose: 2,000 unit Documented by: Cyanocobalamin (Vitamin B-12) 1,000 mcg PO DAILY@1700 [facility] Last Admin: 06/22/19 15:43 Dose: 1,000 mcg Documented by: Donepezil HCl (Aricept) 5 mg PO DAILY@0800 [facility] Last Admin: 06/22/19 11:28 Dose: 5 mg Documented by: Furosemide (Lasix) 40 mg PO DAILY [facility] Last Admin: 06/22/19 11:28 Dose: 40 mg Documented by: Hydromorphone HCl (Dilaudid) 0.5 mg IVP Q5M PRN PRN Reason: Pain Control Stop: 06/23/19 07:47 Last Admin: 06/22/19 10:32 Dose: 0.5 mg Documented by: Sodium Chloride (Saline 0.9%) 1,000 mls @ 75 mls/hr IV .[id number] [facility] Last Admin: 06/22/19 10:41 Dose: 0 mls Documented by: Ceftriaxone Sodium 1 gm/ (Sodium Chloride) 50 mls @ 100 mls/hr IVPB Q24HR [facility] Last Admin: 06/22/19 11:29 Dose: 100 mls/hr Documented by: Lactated Ringer's (Lactated Ringers) 1,000 mls @ 20 mls/hr IV .Q24H [facility] Last Admin: 06/22/19 11:29 Dose: Not Given Documented by: Insulin Aspart (Novolog) 0 unit SQ ACHS [facility]; Protocol Last Admin: 06/22/19 11:35 Dose: Not Given Documented by: Losartan Potassium (Cozaar) 50 mg PO DAILY@0800 [facility] Last Admin: 06/22/19 11:28 Dose: 50 mg Documented by: Metformin HCl (Glucophage) 1,000 mg PO BID@0800,1700 [facility] Last Admin: 06/22/19 15:43 Dose: 1,000 mg Documented by: Montelukast Sodium (Singulair) 10 mg PO HS [facility] Last Admin: 06/21/19 21:00 Dose: 10 mg Documented by: Morphine Sulfate (Morphine Sulfate (Inj)) 5 mg IVP Q3HR PRN PRN Reason: Severe Pain Last Admin: 06/22/19 15:43 Dose: 5 mg Documented by: (Dapagliflozin Propanediol [Farxiga ] 5 Mg) 5 mg PO DAILY [facility] Last Admin: 06/22/19 07:32 Dose: Not Given Documented by: (Liraglutide [ Victoza 2-Orlin] 1.8 Mg) 1.8 mg SQ HS@2100 [facility] Last Admin: 06/21/19 21:02 Dose: Not Given Documented by: Oxcarbazepine (Trileptal) 300 mg PO BID@0800,1700 [facility] Last Admin: 06/22/19 15:43 Dose: 300 mg Documented by: Pregabalin (Lyrica) 150 mg PO BID@0800,2100 [facility] Last Admin: 06/22/19 11:28 Dose: 150 mg Documented by: Senna/Docusate Sodium (Senokot-S) 1 each PO DAILY [facility] Physical examination: VITAL SIGNS: 98.8, 92, 20, 156/81, 99% on room air GENERAL: lethargic EYES: Pupils equal. Conjunctiva normal. HEENT: External appearance of nose and ears normal, oral cavity dry NECK: JVD not raised; masses not palpable. HEART: Irregular heart sounds, minimal edema. LUNGS: Respiratory rate normal diminished breath sounds ABDOMEN: Soft, nontender, liver spleen not palpable, no masses palpable. PSYCH: lethargic EXTREMITY: left leg in a bracee INVESTIGATIONS, reviewed in the clinical context: White count 10.5 hemoglobin 8 Previous testing White count 7.8 hemoglobin 8.7 potassium 3.8 creatinine 0.75 Assessment: -June 17-PTCA to left superficial femoral, platelet. 2, tibial peroneal arteries with stent and left external iliac artery. - acute on chronic ischemic changes to left foot with already compromise left foot circulation-found to have a thrombus from the groin down to the leg. Received IV heparin and IV TPA-status post left below-knee amputation on June 21 -Persistent atrial flutter chronically on eliquis -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 secondary to peripheral arterial disease -Chronic nicotine dependence patient active cigarette smoker -Persistent atrial fibrillation chronically on eliquis -Coronary artery disease a prior history of stent -Primary osteoarthritis -Diabetic peripheral neuropathy -Severe peripheral arterial disease -Mild Cognitive impairment -Chronic gait dysfunction uses a walker -IV heparin monitoring -Acute [id number] to respond Plan: continue current medication treatment plan. Anticoagulation to be resumed when okay with Dr. Aguilera.
[2019-06-22 20:47] LABS: Glucose,Whole Blood 211 mg/dL (75-99)
[2019-06-22] MEDS: ACETAMINOPHEN TAB 500 MG TAB PO PRN (22:12)
[2019-06-22] MEDS: APIXABAN 5 MG TAB PO SCH (22:12)
[2019-06-22] MEDS: ATORVASTATIN 40 MG TAB PO SCH (22:12)
[2019-06-22] MEDS: MONTELUKAST 10 MG TAB PO SCH (22:12)
[2019-06-23] MEDS: HYDROcodone/APAP 7.5-325MG 1 EACH TAB PO PRN ×4 (05:10→22:50)
[2019-06-23] MEDS: SODIUM CHLORIDE 0.9% 1,000 ML IV SCH ×2 (05:10→12:22)
[2019-06-23 06:16] LABS: Glucose,Whole Blood 207 mg/dL (75-99)
[2019-06-23 06:38] LABS: Anisocytosis Moderate; HCT 25.6 % (34.0-46.0); HGB 7.6 gm/dL (11.4-16.0); Hypochromasia Marked; MCH 24.4 pg (25.0-35.0); MCHC 29.6 g/dL (31.0-37.0); MCV 82.3 fL (80.0-100.0); Mean Platelet Volume 8.6; Microcytosis Slight; Platelet Count 323 k/uL (150-450); Poikilocytosis Slight; RBC 3.11 m/uL (3.80-5.40); WBC 10.3 k/uL (3.8-10.6)
[2019-06-23] MEDS: INSULIN ASPART (NovoLOG) 100 UNIT/ML VIAL SQ SCH ×4 (06:41→20:31)
[2019-06-23 06:43] LABS: African American GFR (CKD) >90 (>60 ml/min/1.73 sqM); Anion Gap 8 mmol/L; Blood Urea Nitrogen 8 mg/dL (7-17); Calcium 7.5 mg/dL (8.4-10.2); Carbon Dioxide 24 mmol/L (22-30); Chloride 108 mmol/L (98-107); Glucose 166 mg/dL (74-99); Non-African American GFR(CKD) >90 (>60 ml/min/1.73 sqM); Potassium 3.2 mmol/L (3.5-5.1); Sodium 140 mmol/L (137-145)
--- NOTE | 2019-06-23 08:45 | CDI ---
Documentation Clarification Form Date: 06/23/2019 08:20:20 AM From: Kristi Maya CCS, CCDS Admit Date: 06/13/2019 12:58:00 PM Patient Name: Ariadne Ortiz Visit Number: [id number] Discharge Date: ATTENTION: The Clinical Documentation Specialists (CDI) and [facility] Coding Staff appreciate your assistance in clarifying documentation. Please respond to the clarification below the line at the bottom and electronically sign. The CDI & [facility] Coding staff will review the response and follow-up if needed. Please note: Queries are made part of the Legal Health Record. If you have any questions, please contact the author of this message via ITS. Dr. Momo Medina: Per the History & Physical on 06/12, anemia is documented in the past medical history. Per the Pulmonary Consult, anemia is documented as "chronic anemia". The patient presented with a Hemoglobin of 8.7 & Hematocrit of 29.3, the patient had an amputation of the left leg below the knee on 06/21 & Hemoglobin is now 7.6. History/Risk Factors: CAD w/stent, Osteoarthritis, Diabetic peripheral neuropathy, COPD, PAD, Rosacea, Atrial fibrillation on Eliquis & 65 year smoker. Clinical indicators: The patient presented to the ED on 06/12 from the [facility] with a cold left foot. Procedures: 06/17: Aortogram of LLE & thrombolysis. 06/17: PTBA LLE with stent placement. 06/21 Left BKA. Hemoglobin: 06/12: 8.7*, 06/16: 8.3*, 06/17: 8.8*, 06/18: 7.6*, 06/19: 7.2*, 06/20: 8.0*, 06/22: 7.6* Hematocrit: 06/12: 29.3*, 06/16: 27.9*, 06/17: 29.9*, 06/18: 26.5*, 06/19: 25.5*, 06/20: 27.9*, 06/22: 25.6* Transfused 1 unit PRBCs 06/19. Treatment: 06/12: Home meds, Albuterol INH, Insulin sq; 06/13: IV Fentanyl, home meds; 06/17: IV Kcl, IV Heparin, IV Dilaudid, IV fluid 1,000mls @ 75/hr, 06/21: IV Kefzol, po Eliquis. Home meds: Lyrica, Eliquis, Crestor, Aricept, Singulair, Metformin, Plavix, Lasix, Vit B12, Trileptal, [place], Symbicort INH. In order to capture the severity of condition, please clarify the type of anemia and etiology if known:. Acute blood loss anemia, o Please specify if related to patient's surgery(ies) & the significance of the anemia. Acute on chronic blood loss anemia Chronic blood loss anemia, please specify cause if known: Hemolytic anemia Drug induced anemia Unable to determine Other, please specify (Last Form Revision: May 2019) Possibly anemia of chronic disease MTDD
[2019-06-23] MEDS: ALBUTEROL NEBULIZED 2.5 MG/3 ML INHALATION SCH ×4 (08:56→19:45)
[2019-06-23] MEDS: SYMBICORT 160-4.5 MCG INHALER INHALATION SCH ×2 (08:59→19:45)
[2019-06-23 11:38] LABS: Glucose,Whole Blood 195 mg/dL (75-99)
[2019-06-23] MEDS: DONEPEZIL 5 MG TAB PO SCH (12:23)
[2019-06-23] MEDS: NYSTATIN 100,000 UNIT/ML SUSP 500,000 UNIT/5 ML CUP PO SCH ×4 (12:23→22:50)
[2019-06-23] MEDS: PREGABALIN 75 MG CAP PO SCH ×2 (12:24→20:03)
[2019-06-23] MEDS: OXcarbazepine 300 MG TAB PO SCH ×2 (12:24→16:58)
[2019-06-23] MEDS: metFORMIN 500 MG TAB PO SCH ×2 (12:24→16:56)
[2019-06-23] MEDS: LACTATED RINGERS 1,000 ML IV SCH (12:24)
[2019-06-23] MEDS: LOSARTAN 50 MG TAB PO SCH (12:24)
[2019-06-23] MEDS: APIXABAN 5 MG TAB PO SCH ×2 (12:25→20:03)
[2019-06-23] MEDS: SENNOSIDES-DOCUSATE SODIUM 1 EACH TAB PO SCH (12:26)
[2019-06-23] MEDS: FUROSEMIDE 40 MG TAB PO SCH (12:26)
--- NOTE | 2019-06-23 12:43 | P.PN ---
Subjective Progress Note Date: 06/23/19 Patient seen and examined sitting up in bed. Patient is postop day one status post left below the knee amputation. The patient has a left knee immobilizer in place. The patient states pain has improved. She denies any shortness of breath chest pain or fevers through the night. Objective - Vital Signs Vital signs: Vital Signs Temp 98.9 F 06/23/19 04:00 Pulse 80 06/23/19 11:36 Resp 20 06/23/19 04:00 BP 139/66 06/23/19 04:00 Pulse Ox 97 06/23/19 04:00 Intake & Output 06/22/19 06/23/19 06/23/19 18:59 06:59 18:59 Intake Total 900 120 Output Total 1700 850 Balance -800 -850 120 Weight 76.5 kg Intake: IV 900 Oral 120 Output: Urine 1650 850 Uretheral (Mathews) 850 Estimated Blood Loss 50 Other: Voiding Method Indwelling Catheter Indwelling Catheter - Exam General appearance: The patient is alert, in no acute distress. HET: Head is normocephalic and atraumatic. Neck: Supple without lymphadenopathy. Trachea midline. Heart: S1 S2. Regular rate and rhythm. Lungs: No crackles or wheezes are heard. Extremities: Left lower extremity BKA with intact dressing and Anthony wrap that is clean dry and intact. Left knee immobilizer in place. - Labs CBC & Chem 7: 06/23/19 05:19 06/23/19 05:19 Labs: Abnormal Lab Results - Last 24 Hours (Table) 06/22/19 06/22/19 06/23/19 Range/Units 16:26 20:46 05:19 RBC 3.11 L (3.80-5.40) m/uL Hgb 7.6 L (11.4-16.0) gm/dL Hct 25.6 L (34.0-46.0) % MCH 24.4 L (25.0-35.0) pg MCHC 29.6 L (31.0-37.0) g/dL RDW 21.0 H (11.5-15.5) % Potassium (3.5-5.1) mmol/L Chloride (98-107) mmol/L Creatinine (0.52-1.04) mg/dL Glucose (74-99) mg/dL POC Glucose (mg/dL) 179 H 211 H (75-99) mg/dL Calcium (8.4-10.2) mg/dL 06/23/19 06/23/19 06/23/19 Range/Units 05:19 06:14 11:36 RBC (3.80-5.40) m/uL Hgb (11.4-16.0) gm/dL Hct (34.0-46.0) % MCH (25.0-35.0) pg MCHC (31.0-37.0) g/dL RDW (11.5-15.5) % Potassium 3.2 L (3.5-5.1) mmol/L Chloride 108 H (98-107) mmol/L Creatinine 0.46 L (0.52-1.04) mg/dL Glucose 166 H (74-99) mg/dL POC Glucose (mg/dL) 207 H 195 H (75-99) mg/dL Calcium 7.5 L (8.4-10.2) mg/dL Microbiology - Last 24 Hours (Table) 06/20/19 00:40 Urine Culture - Final Urine,Clean Catch Sole glabrata Assessment and Plan Assessment: 1. Postop day 1 status post left BKA 2. Left lower extremity critical limb ischemia with toe wounds, Sonya classification 6 3. 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 Chronic left foot ischemia, with dry gangrenous changes to the left fifth toe 5. Chronic diabetic ulcerations 6. Diabetes mellitus with neuropathy 7. 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 Physical therapy ordered. We'll order nystatin swish and swallow for oral sole. Continue to monitor CBC. Keep knee immobilizer and dressing in place. The above dictated assessment and findings were discussed with Dr. Mathews. The impression and plan of care have been directed as dictated.
[2019-06-23 16:28] LABS: Glucose,Whole Blood 191 mg/dL (75-99)
[2019-06-23] MEDS: CHOLECALCIFEROL 1,000 UNIT TAB PO SCH (16:55)
[2019-06-23] MEDS: CYANOCOBALAMIN 500 MCG TAB PO SCH (16:55)
[2019-06-23] MEDS: ATORVASTATIN 40 MG TAB PO SCH (20:03)
[2019-06-23] MEDS: MONTELUKAST 10 MG TAB PO SCH (20:03)
--- NOTE | 2019-06-23 20:07 | P.PN ---
Progress Note - Text Progress Note Date: 06/23/19 Chief Complaint: Left foot cold History of presenting complaint: This is a 79-year-old patient of Dr. Giraldo. Chronic stable medical conditions include coronary artery disease with stent, osteoarthritis, diabetic peripheral neuropathy, rosacea, atrial fibrillation on eliquis. Patient long-standing smoker. Patient has chronic wounds on the toes of the left foot. Known significant peripheral arterial disease. She does follow at the wound care center. Was followed by Dr. Rose from podiatry. Does use a walker. Patient was at the wound Center. Seen by the wound care BEHAVIOR SPECIALIST Jagruti. It was assessment of the patient's left foot was cold and then usual. Patient has been seen by Dr. Aguilera. Patient was admitted for further management. He was consulted. Patient's pain in the left foot is not more than her baseline. No fever no chills. Admitted with acute on chronic ischemic changes to the left foot. Patient is already on eliquis.-Held switched to Lovenox. On June 16-autogram performed showed occluded superficial femoral artery with several collaterals leading down to the lower leg with reconstitution of the anterior table of artery of the ankle and peripheral artery at the midcalf. Patient then was put on TPA and IV heparin. For the thrombus. June 17-angioplasty stenting to several lower extremity vessels. June 21-left below-knee amputation by Dr. Aguilera. Today-pain control. Feeling better. Did tolerate diet.. Review of systems: Was done for constitutional, cardiovascular, GI, pulmonary. relevant finding as above Active Medications Acetaminophen (Tylenol Tab) 500 mg PO Q6HR PRN PRN Reason: Moderate Pain Last Admin: 06/22/19 22:12 Dose: 500 mg Documented by: Hydrocodone Bitart/Acetaminophen ([place] 7.5-325) 1 each PO Q6H PRN PRN Reason: Pain Last Admin: 06/23/19 16:56 Dose: 1 each Documented by: Albuterol Sulfate (Ventolin Nebulized) 2.5 mg INHALATION RT-QID PRN PRN Reason: Shortness Of Breath Or Wheezing Albuterol Sulfate (Ventolin Nebulized) 2.5 mg INHALATION RT-QID FRANTZ Last Admin: 06/23/19 19:45 Dose: Not Given Documented by: Alprazolam (Xanax) 0.25 mg PO HS PRN PRN Reason: Anxiety Last Admin: 06/18/19 21:01 Dose: 0.25 mg Documented by: Apixaban (Eliquis) 5 mg PO BID [facility] Last Admin: 06/23/19 12:25 Dose: 5 mg Documented by: Atorvastatin Calcium (Lipitor) 40 mg PO HS@2100 [facility] Last Admin: 06/22/19 22:12 Dose: 40 mg Documented by: Budesonide/Formoterol Fumarate (Symbicort 160-4.5 Mcg Inhaler) 2 puff INHALATION RT-BID@0800,1700 [facility] Last Admin: 06/23/19 19:45 Dose: Not Given Documented by: Cholecalciferol (Vitamin D3 (25 Mcg = 1000 Iu)) 2,000 unit PO DAILY@1700 [facility] Last Admin: 06/23/19 16:55 Dose: 2,000 unit Documented by: Cyanocobalamin (Vitamin B-12) 1,000 mcg PO DAILY@1700 [facility] Last Admin: 06/23/19 16:55 Dose: 1,000 mcg Documented by: Donepezil HCl (Aricept) 5 mg PO DAILY@0800 [facility] Last Admin: 06/23/19 12:23 Dose: 5 mg Documented by: Furosemide (Lasix) 40 mg PO DAILY [facility] Last Admin: 06/23/19 12:26 Dose: 40 mg Documented by: Sodium Chloride (Saline 0.9%) 1,000 mls @ 75 mls/hr IV .[id number] [facility] Last Admin: 06/23/19 12:22 Dose: 75 mls/hr Documented by: Ceftriaxone Sodium 1 gm/ (Sodium Chloride) 50 mls @ 100 mls/hr IVPB Q24HR [facility] Last Admin: 06/23/19 12:33 Dose: 100 mls/hr Documented by: Lactated Ringer's (Lactated Ringers) 1,000 mls @ 20 mls/hr IV .Q24H [facility] Last Admin: 06/23/19 12:24 Dose: Not Given Documented by: Insulin Aspart (Novolog) 0 unit SQ ACHS [facility]; Protocol Last Admin: 06/23/19 16:57 Dose: 2 unit Documented by: Losartan Potassium (Cozaar) 50 mg PO DAILY@0800 [facility] Last Admin: 06/23/19 12:24 Dose: 50 mg Documented by: Metformin HCl (Glucophage) 1,000 mg PO BID@0800,1700 [facility] Last Admin: 06/23/19 16:56 Dose: 1,000 mg Documented by: Montelukast Sodium (Singulair) 10 mg PO HS [facility] Last Admin: 06/22/19 22:12 Dose: 10 mg Documented by: Morphine Sulfate (Morphine Sulfate (Inj)) 5 mg IVP Q3HR PRN PRN Reason: Severe Pain Last Admin: 06/22/19 23:34 Dose: 5 mg Documented by: (Dapagliflozin Propanediol [Farxiga ] 5 Mg) 5 mg PO DAILY [facility] Last Admin: 06/23/19 12:25 Dose: Not Given Documented by: (Liraglutide [ Victoza 2-Orlin] 1.8 Mg) 1.8 mg SQ HS@2100 [facility] Last Admin: 06/23/19 20:00 Dose: Not Given Documented by: Nystatin (Mycostatin Oral Susp) 500,000 unit PO QID [facility] Last Admin: 06/23/19 18:08 Dose: Not Given Documented by: Oxcarbazepine (Trileptal) 300 mg PO BID@0800,1700 [facility] Last Admin: 06/23/19 16:58 Dose: 300 mg Documented by: Pregabalin (Lyrica) 150 mg PO BID@0800,2100 [facility] Last Admin: 06/23/19 12:24 Dose: 150 mg Documented by: Senna/Docusate Sodium (Senokot-S) 1 each PO DAILY [facility] Last Admin: 06/23/19 12:26 Dose: 1 each Documented by: Physical examination: VITAL SIGNS: 97.7, 85, 18, 142/71, 99% on room air GENERAL: Sitting up, awake, comfortable EYES: Pupils equal. Conjunctiva normal. HEENT: External appearance of nose and ears normal, oral cavity dry NECK: JVD not raised; masses not palpable. HEART: Irregular heart sounds, minimal edema. LUNGS: Respiratory rate normal diminished breath sounds ABDOMEN: Soft, nontender, liver spleen not palpable, no masses palpable. PSYCH: AO - times three. Mood and affect normal EXTREMITY: left leg in a brace INVESTIGATIONS, reviewed in the clinical context: White count 10.3 hemoglobin 7.6 creatinine 0.46 Previous testing White count 7.8 hemoglobin 8.7 potassium 3.8 creatinine 0.75 Assessment: -June 17-PTCA to left superficial femoral, platelet. 2, tibial peroneal arteries with stent and left external iliac artery. - acute on chronic ischemic changes to left foot with already compromise left foot circulation-found to have a thrombus from the groin down to the leg. Received IV heparin and IV TPA- left below-knee amputation on June 21 -Persistent atrial flutter chronically on eliquis -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 secondary to peripheral arterial disease -Chronic nicotine dependence patient active cigarette smoker -Persistent atrial fibrillation chronically on eliquis -Coronary artery disease a prior history of stent -Primary osteoarthritis -Diabetic peripheral neuropathy -Severe peripheral arterial disease -Mild Cognitive impairment -Chronic gait dysfunction uses a walker -IV heparin monitoring -Acute [id number]-[id number] to respond Plan: Patient is resumed on his eliquis. Continue current medication treatment plan. Place potassium. Discussed with the patient. Discharge when okay with vascular surgery.
[2019-06-23 20:29] LABS: Glucose,Whole Blood 149 mg/dL (75-99)
[2019-06-24 05:16] LABS: Anisocytosis Moderate; Basophils % (A) 0 %; Eosinophils # (A) 0.1 k/uL (0-0.7); Eosinophils % (A) 1 %; HCT 25.2 % (34.0-46.0); HGB 7.4 gm/dL (11.4-16.0); Hypochromasia Marked; Lymphocytes # (A) 1.7 k/uL (1.0-4.8); Lymphocytes % (A) 19 %; MCH 24.1 pg (25.0-35.0); MCHC 29.3 g/dL (31.0-37.0); MCV 82.3 fL (80.0-100.0); Mean Platelet Volume 8.5; Microcytosis Slight; Monocytes # (A) 0.6 k/uL (0-1.0); Monocytes % (A) 7 %; Neutrophils # (A) 6.3 k/uL (1.3-7.7); Neutrophils % (A) 69 %; Platelet Count 341 k/uL (150-450); Poikilocytosis Moderate; RBC 3.06 m/uL (3.80-5.40); RDW 20.5 % (11.5-15.5); WBC 9.1 k/uL (3.8-10.6)
[2019-06-24 06:18] LABS: Glucose,Whole Blood 161 mg/dL (75-99)
[2019-06-24 06:32] VITALS: TEMP 98.3
[2019-06-24] MEDS: SODIUM CHLORIDE 0.9% 1,000 ML IV SCH (06:43)
[2019-06-24] MEDS: INSULIN ASPART (NovoLOG) 100 UNIT/ML VIAL SQ SCH ×3 (06:45→17:44)
[2019-06-24] MEDS: SYMBICORT 160-4.5 MCG INHALER INHALATION SCH (07:13)
[2019-06-24] MEDS: ALBUTEROL NEBULIZED 2.5 MG/3 ML INHALATION SCH ×3 (07:13→16:18)
[2019-06-24] MEDS: HYDROcodone/APAP 7.5-325MG 1 EACH TAB PO PRN (07:36)
--- NOTE | 2019-06-24 08:36 | P.PN ---
Subjective Progress Note Date: 06/24/19 Patient seen and examined. Slightly more alert today, answering questions appropriately. No initial complaints. The dressing was changed. The incision site is clean and dry. No evidence of hematoma or erythema. Rigid dressing per [facility] prost[employer] is pending. From my standpoint, once the patient is seen and evaluated by physical therapy, may be discharged appropriately. The patient likely needs a rehabilitation given her overall functional status. Would favor this rather than discharge home. This is discussed with the patient and nurse. Objective - Vital Signs Vital signs: Vital Signs Temp 98.3 F 06/24/19 04:00 Pulse 86 06/24/19 07:46 Resp 18 06/24/19 04:00 BP 116/63 06/24/19 04:00 Pulse Ox 99 06/24/19 04:00 Intake & Output 06/23/19 06/24/19 06/24/19 18:59 06:59 18:59 Intake Total 480 120 Output Total 1200 Balance 480 -1200 120 Weight 74.5 kg Intake: Oral 480 120 Output: Urine 1200 Uretheral (Mathews) 1200 Other: Voiding Method Indwelling Catheter Indwelling Catheter - Labs CBC & Chem 7: 06/24/19 04:55 06/23/19 05:19 Labs: Abnormal Lab Results - Last 24 Hours (Table) 06/23/19 06/23/19 06/23/19 Range/Units 11:36 16:27 20:27 RBC (3.80-5.40) m/uL Hgb (11.4-16.0) gm/dL Hct (34.0-46.0) % MCH (25.0-35.0) pg MCHC (31.0-37.0) g/dL RDW (11.5-15.5) % POC Glucose (mg/dL) 195 H 191 H 149 H (75-99) mg/dL 06/24/19 06/24/19 Range/Units 04:55 06:15 RBC 3.06 L (3.80-5.40) m/uL Hgb 7.4 L (11.4-16.0) gm/dL Hct 25.2 L (34.0-46.0) % MCH 24.1 L (25.0-35.0) pg MCHC 29.3 L (31.0-37.0) g/dL RDW 20.5 H (11.5-15.5) % POC Glucose (mg/dL) 161 H (75-99) mg/dL
[2019-06-24] MEDS: metFORMIN 500 MG TAB PO SCH (09:41)
[2019-06-24] MEDS: PREGABALIN 75 MG CAP PO SCH (09:41)
[2019-06-24] MEDS: APIXABAN 5 MG TAB PO SCH (09:42)
[2019-06-24] MEDS: NYSTATIN 100,000 UNIT/ML SUSP 500,000 UNIT/5 ML CUP PO SCH ×2 (09:42→12:48)
[2019-06-24] MEDS: SENNOSIDES-DOCUSATE SODIUM 1 EACH TAB PO SCH (09:42)
[2019-06-24] MEDS: LOSARTAN 50 MG TAB PO SCH (09:42)
[2019-06-24] MEDS: OXcarbazepine 300 MG TAB PO SCH (09:43)
[2019-06-24] MEDS: DONEPEZIL 5 MG TAB PO SCH (09:43)
[2019-06-24 11:39] LABS: Glucose,Whole Blood 252 mg/dL (75-99)
[2019-06-24] MEDS: FUROSEMIDE 40 MG TAB PO SCH (12:48)
[2019-06-24 12:56] VITALS: BP 147/73; RESP 16
[2019-06-24 16:20] VITALS: PULSE 76
[2019-06-24 17:07] LABS: Glucose,Whole Blood 122 mg/dL (75-99)
--- NOTE | 2019-06-24 21:57 | P.DS ---
Providers Date of admission: 06/13/19 12:58 Expected date of discharge: 06/24/19 Attending physician: Momo Medina Consults: 06/13/19 17:39 Consult Physician Routine Consulting Provider: Ibrahima Aguilera Consult Reason/Comments: Left foot wound Do you want consulting provider notified?: Yes 06/17/19 11:36 Consult Physician Urgent Consulting Provider: Bethel Cordero Reason/Comments: ICU management Do you want consulting provider notified?: Already Contacted Primary care physician: [facility] Course: Chief Complaint: Left foot cold History of presenting complaint: This is a 79-year-old patient of Dr. Giraldo. Chronic stable medical conditions include coronary artery disease with stent, osteoarthritis, diabetic peripheral neuropathy, rosacea, atrial fibrillation on eliquis. Patient long-standing smoker. Patient has chronic wounds on the toes of the left foot. Known significant peripheral arterial disease. She does follow at the wound care center. Was followed by Dr. Rose from podiatry. Does use a walker. Patient was at the wound Center. Seen by the wound care HOSPICE NURSE PRACTITIONER Jagruti. It was assessment of the patient's left foot was cold and then usual. Patient has been seen by Dr. Aguilera. Patient was admitted for further management. He was consulted. Patient's pain in the left foot is not more than her baseline. No fever no chills. Admitted with acute on chronic ischemic changes to the left foot. Patient is already on eliquis.-Held switched to Lovenox. On June 16-autogram performed showed occluded superficial femoral artery with several collaterals leading down to the lower leg with reconstitution of the anterior table of artery of the ankle and peripheral artery at the midcalf. Patient then was put on TPA and IV heparin. For the thrombus. June 17-angioplasty stenting to several lower extremity vessels. June 21-left below-knee amputation by Dr. Aguilera. Today-stable. Pain well controlled. Tolerating diet. Discuss with social worker psychiatric. Patient will be going home. Not a rehab Consultation: Dr. Aguilera and partner from vascular surgery Physical examination: VITAL SIGNS: GENERAL: Sitting up, awake, comfortable EYES: Pupils equal. Conjunctiva normal. HEENT: External appearance of nose and ears normal, oral cavity dry NECK: JVD not raised; masses not palpable. HEART: Irregular heart sounds, minimal edema. LUNGS: Respiratory rate normal diminished breath sounds ABDOMEN: Soft, nontender, liver spleen not palpable, no masses palpable. PSYCH: AO - times three. Mood and affect normal EXTREMITY: left leg in a brace INVESTIGATIONS, reviewed in the clinical context: Hemoglobin 7.4 Previous testing White count 7.8 hemoglobin 8.7 potassium 3.8 creatinine 0.75 Assessment: -June 17-PTCA to left superficial femoral, platelet. 2, tibial peroneal arteries with stent and left external iliac artery. - acute on chronic ischemic changes to left foot with already compromise left foot circulation-found to have a thrombus from the groin down to the leg. Received IV heparin and IV TPA- left below-knee amputation on June 21 -Persistent atrial flutter chronically on eliquis -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 secondary to peripheral arterial disease -Chronic nicotine dependence patient active cigarette smoker -Persistent atrial fibrillation chronically on eliquis -Coronary artery disease a prior history of stent -Primary osteoarthritis -Diabetic peripheral neuropathy -Severe peripheral arterial disease -Mild Cognitive impairment -Chronic gait dysfunction uses a walker -IV heparin monitoring -Acute delirium- corrected Disposition: Home Patient Condition at Discharge: Stable Plan - Discharge Summary Discharge Rx Participant: Yes New Discharge Prescriptions: New Fluconazole [Diflucan] 100 mg PO DAILY #7 tab Sennosides-Docusate Sodium [Senokot-S] 1 each PO DAILY #30 tab Continue Montelukast [Singulair] 10 mg PO HS #30 tab Budesonide-Formot 160-4.5 Mcg [Symbicort 160-4.5 Mcg Inhaler] 2 puff INHALATION RT-BID@0800,1700 Losartan [Cozaar] 50 mg PO DAILY@0800 Cholecalciferol [Vitamin D3 (25 Mcg = 1000 Iu)] 2,000 unit PO DAILY@1700 Cyanocobalamin (Vitamin B-12) [Vitamin B-12] 1,000 mcg PO DAILY@1700 Acetaminophen [Tylenol Extra Strength] 500 mg PO Q6HR PRN PRN Reason: Moderate Pain Liraglutide [Victoza 2-Orlin] 1.8 mg SQ HS@2100 Rosuvastatin [Crestor] 20 mg PO HS@2100 OXcarbazepine [Trileptal] 300 mg PO BID@0800,1700 Clopidogrel [Plavix] 75 mg PO DAILY@0800 metFORMIN HCL [metFORMIN HCL ER] 750 mg PO BID@0800,1700 Donepezil [Aricept] 5 mg PO DAILY@0800 HYDROcodone/APAP 7.5-325MG [Alsey 7.5-325] 1 tab PO Q6H PRN #12 tab PRN Reason: Pain Apixaban [Eliquis] 5 mg PO BID ALPRAZolam [Xanax] 0.25 mg PO HS PRN PRN Reason: Anxiety Furosemide [Lasix] 40 mg PO DAILY Dapagliflozin Propanediol [Farxiga] 5 mg PO DAILY Ipratropium-Albuterol Nebulize [Duoneb 0.5 mg-3 mg/3 ml Soln] 3 ml INHALATION RT-BID Pregabalin [Lyrica] 200 mg PO BID Discharge Medication List Montelukast [Singulair] 10 mg PO HS #30 tab 09/20/16 [Rx] Budesonide-Formot 160-4.5 Mcg [Symbicort 160-4.5 Mcg Inhaler] 2 puff INHALATION RT-BID@0800,1700 10/05/16 [History] Cholecalciferol [Vitamin D3 (25 Mcg = 1000 Iu)] 2,000 unit PO DAILY@1700 07/18/17 [History] Cyanocobalamin (Vitamin B-12) [Vitamin B-12] 1,000 mcg PO DAILY@1700 07/18/17 [History] Losartan [Cozaar] 50 mg PO DAILY@0800 07/18/17 [History] Acetaminophen [Tylenol Extra Strength] 500 mg PO Q6HR PRN 07/20/17 [History] Liraglutide [Victoza 2-Orlin] 1.8 mg SQ HS@2100 12/26/18 [History] Clopidogrel [Plavix] 75 mg PO DAILY@0800 01/10/19 [History] OXcarbazepine [Trileptal] 300 mg PO BID@0800,1700 01/10/19 [History] Rosuvastatin [Crestor] 20 mg PO HS@2100 01/10/19 [History] metFORMIN HCL [metFORMIN HCL ER] 750 mg PO BID@0800,1700 02/15/19 [History] Donepezil [Aricept] 5 mg PO DAILY@0800 05/19/19 [History] HYDROcodone/APAP 7.5-325MG [Alsey 7.5-325] 1 tab PO Q6H PRN #12 tab 05/23/19 [Rx] ALPRAZolam [Xanax] 0.25 mg PO HS PRN 06/13/19 [History] Apixaban [Eliquis] 5 mg PO BID 06/13/19 [History] Dapagliflozin Propanediol [Farxiga] 5 mg PO DAILY 06/13/19 [History] Furosemide [Lasix] 40 mg PO DAILY 06/13/19 [History] Ipratropium-Albuterol Nebulize [Duoneb 0.5 mg-3 mg/3 ml Soln] 3 ml INHALATION RT-BID 06/13/19 [History] Pregabalin [Lyrica] 200 mg PO BID 06/14/19 [History] Fluconazole [Diflucan] 100 mg PO DAILY #7 tab 06/24/19 [Rx] Sennosides-Docusate Sodium [Senokot-S] 1 each PO DAILY #30 tab 06/24/19 [Rx] Follow up Appointment(s)/Referral(s): Ibrahima Aguilera DO [STAFF PHYSICIAN] - 07/08/19 1:00 pm (Sunday) [facility], [NON-STAFF] - He Giraldo MD [REFERRING] - 1 Week Patient Instructions/Handouts: Peripheral Vascular Stent Placement (DC), Below the Knee Amputation (DC) Activity/Diet/Wound Care/Special Instructions: cbc/bmp - 5 days Discharge Disposition: HOME SELF-CARE
--- NOTE | 2019-06-25 12:28 | CDI ---
Documentation Clarification Form Date: 06/25/19 From: Lesvia Guzman Phone: If you have a question about this query, please contact Mary Tolbert, People Manager at [phone] between 8am and 5pm. Admit Date: 06/13/19 Discharge Date:06/24/19 Patient Name: Ariadne Ortiz Visit Number: [id number] ATTENTION: The Clinical Documentation Specialists (CDI) and [facility] Coding Staff appreciate your assistance in clarifying documentation. Please respond to the clarification below the line at the bottom and electronically sign. The CDI & [facility] Coding staff will review the response and follow-up if needed. Please note: Queries are made part of the Legal Health Record. If you have any questions, please contact the author of this message via ITS. Dear Dr. Aguilera The patient presented with the following: Critical limb ischemia of left lower extremity with gangrene involving the first through fifth toes. History/Risk Factors: Trombus of the left SFA, gangrene of the left first through fifth toes, chronic ulcer of the left toes and foot. Clinical Indicators: Gangrene, critical limb ischemia Vital Signs: T. 98.4, P. 80, R. 82, BP 142/71 Treatment: Left below the knee amputation In your professional opinion, can you please clarify the level of the below the knee amputation? High (proximal) Mid Low (distal) Other, please specify Unable to determine mid MTDD
--- NOTE | 2019-06-25 13:50 | CDI ---
Documentation Clarification Form Date: 06/25/2019 01:15:44 PM From: Kristi Maya CCS, CCDS Admit Date: 06/13/2019 12:58:00 PM Patient Name: Ariadne Ortiz Visit Number: [id number] Discharge Date: 06/24/2019 07:52:00 PM ATTENTION: The Clinical Documentation Specialists (CDI) and [facility] Coding Staff appreciate your assistance in clarifying documentation. Please respond to the clarification below the line at the bottom and electronically sign. The CDI & [facility] Coding staff will review the response and follow-up if needed. Please note: Queries are made part of the Legal Health Record. If you have any questions, please contact the author of this message via ITS. Dr. Ibrahima Aguilera: Per the 06/17 Procedure Report, the following is documented: "There was also an area of significant stenosis at the peroneal artery and attempt (was placed) to perform a stent at this area as well but when wire was removed from the anterior tibial artery a dissection flap was noted at the tibial peroneal trunk and occluded the peroneal and anterior tibial artery. Wire was then replaced anterior tibial artery and decision was made to place a covered stent across the tibial peroneal trunk extending into the popliteal and superficial femoral arteries in order to cover the area of extravasation and dissection." History: PAD with chronic left foot ulcers, gangrene & previous stents, CAD with stent, COPD, DM with peripheral neuropathy, Persistent atrial fibrillation on Eliquis, former smoker. Clinical Indicators: Patient presented on 06/12 for a correction with possible acute on chronic ischemic changes to the left foot with already compromised left foot circulation. Procedures: 06/17: Aortogram LLE femoral-tibial arteries, placement of thrombolytic catheter & initiation of thrombolysis. 06/17: LLE [id number] angiogram via existing sheath. PTBA same. Perc stent left tibial peroneal (Viabahn). Perc stent left anterior tibial artery (EMPERATRIZ). Perc stent left superficial femoral & popliteal artery (Viabahn) & PTBA left external iliac artery. Treatment: Procedures listed above. Postoperatively: IV Heparin, IV Dilaudid, IV fluid rate 75, IV Kefzol, po Eliquis resumed prior to discharge back to SNF. In your professional opinion, please clarify the significance of the dissection flap found during the stent attempt to the personal artery upon withdrawal of the wire from the anterior tibial artery: Dissection flap was: A complication of the surgical procedure An expected outcome of the surgical procedure Is related to the patient's pre-existing condition, please specify: Other, please specify: Unable to determine (Last Revision: April 2019) expected outcome MTDD
== END 2019-06-24 19:52 | disposition home health service (06) | DRG 239 ==
LOC: 4SSUR 12:58 → 2SICU 06-17 09:50 → 3SCARD 06-20 22:49
PROVIDERS: ADMIT Hospitalist; ATTEND Hospitalist
PROC: 047Q341 Dilation of Left Anterior Tibial Artery with Drug-eluting Intraluminal Device, using Drug-Coated Balloon, Percutaneous Approach (ICD-10-PCS; 2019-06-13)
PROC: 047N34Z Dilation of Left Popliteal Artery with Drug-eluting Intraluminal Device, Percutaneous Approach (ICD-10-PCS; 2019-06-13)
PROC: 047L34Z Dilation of Left Femoral Artery with Drug-eluting Intraluminal Device, Percutaneous Approach (ICD-10-PCS; 2019-06-13)
PROC: 4A033B1 Measurement of Arterial Pressure, Peripheral, Percutaneous Approach (ICD-10-PCS; 2019-06-13)
PROC: 047J3ZZ Dilation of Left External Iliac Artery, Percutaneous Approach (ICD-10-PCS; 2019-06-13)
PROC: 047U34Z Dilation of Left Peroneal Artery with Drug-eluting Intraluminal Device, Percutaneous Approach (ICD-10-PCS; 2019-06-13)
PROC: B41D1ZZ Fluoroscopy of Aorta and Bilateral Lower Extremity Arteries using Low Osmolar Contrast (ICD-10-PCS; 2019-06-18 09:30)
PROC: 3E05317 Introduction of Other Thrombolytic into Peripheral Artery, Percutaneous Approach (ICD-10-PCS; 2019-06-18 09:30)
PROC: 04HK33Z Insertion of Infusion Device into Right Femoral Artery, Percutaneous Approach (ICD-10-PCS; 2019-06-18 09:30)
PROC: 0Y6J0Z2 Detachment at Left Lower Leg, Mid, Open Approach (ICD-10-PCS; principal; 2019-06-22 07:21)
DX: E11.52 Type 2 diabetes mellitus with diabetic peripheral angiopathy with gangrene (principal); I77.77 Dissection of artery of lower extremity; B37.0 Candidal stomatitis; I48.19 Other persistent atrial fibrillation; I48.92 Unspecified atrial flutter; I73.01 Raynaud's syndrome with gangrene; I74.3 Embolism and thrombosis of arteries of the lower extremities; I82.91 Chronic embolism and thrombosis of unspecified vein; I50.9 Heart failure, unspecified; D63.8 Anemia in other chronic diseases classified elsewhere; E11.42 Type 2 diabetes mellitus with diabetic polyneuropathy; E11.621 Type 2 diabetes mellitus with foot ulcer; F17.210 Nicotine dependence, cigarettes, uncomplicated; L97.529 Non-pressure chronic ulcer of other part of left foot with unspecified severity; G31.84 Mild cognitive impairment of uncertain or unknown etiology; I25.10 Atherosclerotic heart disease of native coronary artery without angina pectoris; I25.2 Old myocardial infarction; I99.8 Other disorder of circulatory system; J44.9 Chronic obstructive pulmonary disease, unspecified; L71.9 Rosacea, unspecified; M19.91 Primary osteoarthritis, unspecified site; R26.9 Unspecified abnormalities of gait and mobility; R41.0 Disorientation, unspecified; Z79.01 Long term (current) use of anticoagulants; Z79.02 Long term (current) use of antithrombotics/antiplatelets; Z79.51 Long term (current) use of inhaled steroids; Z79.84 Long term (current) use of oral hypoglycemic drugs; Z79.899 Other long term (current) drug therapy; Z95.0 Presence of cardiac pacemaker; Z90.710 Acquired absence of both cervix and uterus; Z90.49 Acquired absence of other specified parts of digestive tract; Z95.5 Presence of coronary angioplasty implant and graft; Z88.5 Allergy status to narcotic agent; Z88.8 Allergy status to other drugs, medicaments and biological substances; Z82.3 Family history of stroke; Z82.49 Family history of ischemic heart disease and other diseases of the circulatory system; Z83.3 Family history of diabetes mellitus
CPT/HCPCS: 36246; 37211; 37214; 37220; 37226; 37230; 71045; 75710; 80048; 80053; 81001; 82565; 83735; 84132; 84520; 85025; 85027; 85347; 85384; 85610; 85730; 86850; 86900; 86901; 86920; 87086; 93923; 94640

== ENCOUNTER 2019-11-19 01:28 | Inpatient (IN) | payer MEDICARE, OTHER ==
[2019-11-19 01:57] LABS: Anisocytosis Slight; Basophils % (A) 1 %; Eosinophils # (A) 0.1 k/uL (0-0.7); Eosinophils % (A) 2 %; HCT 35.8 % (34.0-46.0); HGB 10.3 gm/dL (11.4-16.0); Hypochromasia Marked; Lymphocytes # (A) 1.9 k/uL (1.0-4.8); Lymphocytes % (A) 33 %; MCH 21.7 pg (25.0-35.0); MCHC 28.8 g/dL (31.0-37.0); MCV 75.2 fL (80.0-100.0); Microcytosis Moderate; Monocytes # (A) 0.4 k/uL (0-1.0); Monocytes % (A) 7 %; Neutrophils # (A) 3.1 k/uL (1.3-7.7); Neutrophils % (A) 53 %; Platelet Count 191 k/uL (150-450); RBC 4.76 m/uL (3.80-5.40); RDW 19.1 % (11.5-15.5); WBC 5.8 k/uL (3.8-10.6)
[2019-11-19 02:07] LABS: ALT 25 U/L (4-34); AST 43 U/L (14-36); African American GFR (CKD) >90 (>60 ml/min/1.73 sqM); Albumin 4.2 g/dL (3.5-5.0); Alkaline Phosphatase 163 U/L (38-126); Anion Gap 9 mmol/L; Blood Urea Nitrogen 21 mg/dL (7-17); Calcium 9.3 mg/dL (8.4-10.2); Carbon Dioxide 22 mmol/L (22-30); Chloride 107 mmol/L (98-107); Glucose 240 mg/dL (74-99); Magnesium 1.8 mg/dL (1.6-2.3); Non-African American GFR(CKD) >90 (>60 ml/min/1.73 sqM); Potassium 3.8 mmol/L (3.5-5.1); Sodium 138 mmol/L (137-145); Total Bilirubin 0.8 mg/dL (0.2-1.3)
[2019-11-19 02:16] LABS: Prothrombin Time 10.7 sec (9.0-12.0)
[2019-11-19 02:17] LABS: Partial Thromboplastin Time 21.1 sec (22.0-30.0)
[2019-11-19] MEDS ORDERED: IPRATROPIUM-ALBUTEROL 3 ML NEB INHALATION STA (02:47)
[2019-11-19] MEDS ORDERED: IPRATROPIUM-ALBUTEROL 3 ML NEB INHALATION PRN (02:52)
--- NOTE | 2019-11-19 03:01 | ED ---
SOB HPI - General Chief Complaint: Shortness of Breath Stated Complaint: SOB Time Seen by Provider: 11/19/19 01:30 Source: patient Mode of arrival: EMS Limitations: no limitations - History of Present Illness Initial Comments: 79-year-old female with extensive past medical history presents to emergency department today for shortness of breath she states since 5 PM tonight before presenting she states she had shortness of breath and felt like she cannot expand her lungs. Patient states she has an extensive history of CABG and has been a heavy smoker entire life. Patient denies any leg swelling she denies any chest pain. Deep inspiration hemoptysis. Patient denies any history of DVT. Patient denies any difficulty lying flat. Patient states after the two albuterol treatments in the EMS rig and solumedtrol which was also given in the rig patient states she was feeling much less SOB. ON arrival pt does not appear in acute distress, states she is still slightly sob. - Related Data Home Medications Medication Instructions Recorded Confirmed Budesonide-Formot 160-4.5 Mcg 2 puff INHALATION RT-BID@0800,1700 10/05/16 06/13/19 [Symbicort 160-4.5 Mcg Inhaler] Cholecalciferol [Vitamin D3 (25 2,000 unit PO DAILY@17007/18/17 06/13/19 Mcg = 1000 Iu)] Cyanocobalamin (Vitamin B-12) 1,000 mcg PO DAILY@1700 07/18/17 06/13/19 [Vitamin B-12] Losartan [Cozaar] 50 mg PO DAILY@0800 07/18/17 06/13/19 Acetaminophen [Tylenol Extra 500 mg PO Q6HR PRN 07/20/17 06/13/19 Strength] Liraglutide [Victoza 2-Orlin] 1.8 mg SQ HS@2100 12/26/18 06/13/19 Clopidogrel [Plavix] 75 mg PO DAILY@0800 01/10/19 06/13/19 OXcarbazepine [Trileptal] 300 mg PO BID@0800,1700 01/10/19 06/13/19 Rosuvastatin [Crestor] 20 mg PO HS@2100 01/10/19 06/13/19 metFORMIN HCL [metFORMIN HCL ER] 750 mg PO BID@0800,1700 02/15/19 06/13/19 Donepezil [Aricept] 5 mg PO DAILY@0800 05/19/19 06/13/19 ALPRAZolam [Xanax] 0.25 mg PO HS PRN 06/13/19 06/13/19 Apixaban [Eliquis] 5 mg PO BID 06/13/19 06/13/19 Dapagliflozin Propanediol [Farxiga] 5 mg PO DAILY 06/13/19 06/13/19 Furosemide [Lasix] 40 mg PO DAILY 06/13/19 06/13/19 Ipratropium-Albuterol Nebulize 3 ml INHALATION RT-BID 06/13/19 06/13/19 [Duoneb 0.5 mg-3 mg/3 ml Soln] Pregabalin [Lyrica] 200 mg PO BID 06/14/19 06/14/19 Previous Rx's Medication Instructions Recorded Montelukast [Singulair] 10 mg PO HS #30 tab 09/20/16 HYDROcodone/APAP 7.5-325MG [Ponce 1 tab PO Q6H PRN #12 tab 05/23/19 7.5-325] Fluconazole [Diflucan] 100 mg PO DAILY #7 tab 06/24/19 Sennosides-Docusate Sodium 1 each PO DAILY #30 tab 06/24/19 [Senokot-S] Allergies Allergy/AdvReac Type Severity Reaction Status Date / Time codeine AdvReac Nausea & Verified 06/13/19 19:48 Vomiting sitagliptin [From Janumet] AdvReac frequent Verified 06/13/19 19:48 UTI Review of Systems ROS Statement: Those systems with pertinent positive or pertinent negative responses have been documented in the HPI. ROS Other: All systems not noted in ROS Statement are negative. Past Medical History Past Medical History: Heart Failure, COPD, Diabetes Mellitus, Diabetes Mellitus, Myocardial Infarction ([place]), Myocardial Infarction ([place]), Osteoarthritis (OA), Respiratory Disorder, Skin Disorder, Vascular Disorder Additional Past Medical History / Comment(s): Leg pain, Trigeminal Neuralgia, Diabetic Neuropathy, [place] 1994, ROSCACEA; Hypoxic Respiratory Failure; Raynauds; PVD; Anemia Last Myocardial Infarction Date:: 1994 History of Any Multi-Drug Resistant Organisms: None Reported Past Surgical History: Appendectomy, Cholecystectomy, Heart Catheterization With Stent, Hysterectomy, Orthopedic Surgery, Pacemaker Additional Past Surgical History / Comment(s): Arthrectomy rt leg, Angioplasty, Pacemaker August 2016, left Foot Surgery, one heart stent Past Anesthesia/Blood Transfusion Reactions: No Reported Reaction Date of Last Stent Placement:: 1994 Type of Cardiac Device: Permanent Pacemaker Device Placement Date:: August 2016 Past Psychological History: No Psychological Hx Reported Smoking Status: Former smoker Past Alcohol Use History: None Reported Past Drug Use History: None Reported - Past Family History Father Family Medical History: Myocardial Infarction ([place]) Mother Family Medical History: Congestive Heart Failure (CHF), CVA/TIA, Diabetes Mellitus General Exam - General Exam Comments Initial Comments: General: The patient is awake and alert, in no distress Eye: +3 mm pupils are equal, round and reactive to light, extra-ocular movements are intact. No nystagmus. There is normal conjunctiva bilaterally. No signs of icterus. Ears, nose, mouth and throat: There are moist mucous membranes and no oral lesions. Neck: The neck is supple, there is no tenderness or JVD. Cardiovascular: There is a regular rate and rhythm. No murmur, rub or gallop is appreciated. Respiratory: Overall diffusely diminished lung sounds, respirations are non- labored. Expiratory wheeze, No stridor, rales, or rhonchi. Gastrointestinal: Soft, non-distended, non-tender abdomen without masses or organomegaly noted. There is no rebound or guarding present. Musculoskeletal: Left BLE ambutation. No right leg edema. Normal ROM, no t enderness. Strength 5/5. Sensation intact. Radial pulses equal bilaterally 2+. Neurological: A&O x 3. CN II-XII intact grossly, There are no obvious motor or sensory deficits. Coordination appears grossly intact. Speech is normal. Skin: Skin is warm and dry and no rashes or lesions are noted. Psychiatric: Cooperative, appropriate mood & affect, normal judgment. Limitations: no limitations Course Vital Signs 11/19/19 11/19/19 01:29 01:50 Temperature 98.1 F Pulse Rate 68 Respiratory 16 Rate Blood Pressure 185/94 O2 Sat by Pulse 99 Oximetry Medical Decision Making - Medical Decision Making 79 yo female presented for shortness breath extensive history of smoking and COPD. Patient states that she felt like she could not expand her lungs after 2 treatments on the EMS ride to the hospital as well as after the evisceration of Solu-Medrol patient states she began to feel slightly better. Patient continued to have expiratory wheeze she is given a third treatment as patient is still slightly short of breath we will admit her for further treatment and monitoring. Patient is agreeable to admission and care plan. Discussed the case with Dr. Chapa who is agreeable to this care plan and will speak to accepting admitting provider. - Lab Data Result diagrams: 11/19/19 01:48 11/19/19 01:48 Lab Results 11/19/19 11/19/19 11/19/19 Range/Units 01:48 01:48 01:48 WBC 5.8 (3.8-10.6) k/uL RBC 4.76 (3.80-5.40) m/uL Hgb 10.3 L (11.4-16.0) gm/dL Hct 35.8 (34.0-46.0) % MCV 75.2 L (80.0-100.0) fL MCH 21.7 L (25.0-35.0) pg MCHC 28.8 L (31.0-37.0) g/dL RDW 19.1 H (11.5-15.5) % Plt Count 191 (150-450) k/uL Neutrophils % 53 % Lymphocytes % 33 % Monocytes % 7 % Eosinophils % 2 % Basophils % 1 % Neutrophils # 3.1 (1.3-7.7) k/uL Lymphocytes # 1.9 (1.0-4.8) k/uL Monocytes # 0.4 (0-1.0) k/uL Eosinophils # 0.1 (0-0.7) k/uL Basophils # 0.0 (0-0.2) k/uL Hypochromasia Marked Anisocytosis Slight Microcytosis Moderate PT 10.7 (9.0-12.0) sec INR 1.0 (<1.2) APTT 21.1 L (22.0-30.0) sec Sodium 138 (137-145) mmol/L Potassium 3.8 (3.5-5.1) mmol/L Chloride 107 (98-107) mmol/L Carbon Dioxide 22 (22-30) mmol/L Anion Gap 9 mmol/L BUN 21 H (7-17) mg/dL Creatinine 0.52 (0.52-1.04) mg/dL Est GFR (CKD-EPI)AfAm >90 (>60 ml/min/1.73 sqM) Est GFR (CKD-EPI)NonAf >90 (>60 ml/min/1.73 sqM) Glucose 240 H (74-99) mg/dL Plasma Lactic Acid Naveen (0.7-2.0) mmol/L Calcium 9.3 (8.4-10.2) mg/dL Magnesium 1.8 (1.6-2.3) mg/dL Total Bilirubin 0.8 (0.2-1.3) mg/dL AST 43 H (14-36) U/L ALT 25 (4-34) U/L Alkaline Phosphatase 163 H (38-126) U/L Troponin I (0.000-0.034) ng/mL NT-Pro-B Natriuret Pep pg/mL Total Protein 7.0 (6.3-8.2) g/dL Albumin 4.2 (3.5-5.0) g/dL 11/19/19 11/19/19 11/19/19 Range/Units 01:48 01:48 01:48 WBC (3.8-10.6) k/uL RBC (3.80-5.40) m/uL Hgb (11.4-16.0) gm/dL Hct (34.0-46.0) % MCV (80.0-100.0) fL MCH (25.0-35.0) pg MCHC (31.0-37.0) g/dL RDW (11.5-15.5) % Plt Count (150-450) k/uL Neutrophils % % Lymphocytes % % Monocytes % % Eosinophils % % Basophils % % Neutrophils # (1.3-7.7) k/uL Lymphocytes # (1.0-4.8) k/uL Monocytes # (0-1.0) k/uL Eosinophils # (0-0.7) k/uL Basophils # (0-0.2) k/uL Hypochromasia Anisocytosis Microcytosis PT (9.0-12.0) sec INR (<1.2) APTT (22.0-30.0) sec Sodium (137-145) mmol/L Potassium (3.5-5.1) mmol/L Chloride (98-107) mmol/L Carbon Dioxide (22-30) mmol/L Anion Gap mmol/L BUN (7-17) mg/dL Creatinine (0.52-1.04) mg/dL Est GFR (CKD-EPI)AfAm (>60 ml/min/1.73 sqM) Est GFR (CKD-EPI)NonAf (>60 ml/min/1.73 sqM) Glucose (74-99) mg/dL Plasma Lactic Acid Naveen 2.1 H* (0.7-2.0) mmol/L Calcium (8.4-10.2) mg/dL Magnesium (1.6-2.3) mg/dL Total Bilirubin (0.2-1.3) mg/dL AST (14-36) U/L ALT (4-34) U/L Alkaline Phosphatase (38-126) U/L Troponin I <0.012 (0.000-0.034) ng/mL NT-Pro-B Natriuret Pep 929 pg/mL Total Protein (6.3-8.2) g/dL Albumin (3.5-5.0) g/dL Disposition Clinical Impression: COPD exacerbation, History of atrial fibrillation, Dyspnea, Wheezing Disposition: ADMITTED IP TO THIS [facility] Condition: Stable Is patient prescribed a controlled substance at d/c from ED?: No Referrals: Nonstaff,Physician [Primary Care Provider] - 1-2 days Time of Disposition: 03:00 Decision to Admit Reason: Admit from EC Decision Date: 11/19/19 Decision Time: 03:00
--- NOTE | 2019-11-19 03:11 | XR ---
EXAM: XR Chest, 2 Views CLINICAL HISTORY: ITS.REASON XR Reason: difficulty breathing TECHNIQUE: Frontal and lateral views of the chest. COMPARISON: 06/19/2019 FINDINGS: Lungs: No consolidation or mass. Increased interstitial opacities at the lung bases. Pleural space: No effusion. Heart: Unchanged cardiomegaly. Pacer device is seen. Bones/joints: No acute findings. IMPRESSION: Cardiomegaly with mild edema in the lower lungs.
[2019-11-19] MEDS: SODIUM CHLORIDE 0.9% 1,000 ML IV SCH (05:58)
[2019-11-19] MEDS ORDERED: IPRATROPIUM-ALBUTEROL 3 ML NEB INHALATION SCH (08:00)
[2019-11-19] MEDS: predniSONE 20 MG TAB PO SCH (08:13)
[2019-11-19] MEDS ORDERED: ALPRAZolam 0.25 MG TAB PO PRN (10:17)
[2019-11-19] MEDS ORDERED: ACETAMINOPHEN TAB 500 MG TAB PO PRN (10:17)
[2019-11-19] MEDS: metFORMIN 500 MG TAB PO SCH ×2 (10:52→20:24)
[2019-11-19] MEDS: ATORVASTATIN 40 MG TAB PO SCH (10:52)
[2019-11-19] MEDS: PREGABALIN 100 MG CAP PO SCH ×2 (10:53→20:23)
[2019-11-19] MEDS: CLOPIDOGREL 75 MG TAB PO SCH (10:53)
[2019-11-19] MEDS: APIXABAN 5 MG TAB PO SCH ×2 (10:53→20:24)
[2019-11-19] MEDS: LOSARTAN 50 MG TAB PO SCH (10:53)
[2019-11-19 11:12] LABS: Glucose,Whole Blood 583 mg/dL (75-99)
[2019-11-19 11:15] LABS: Glucose,Whole Blood 589 mg/dL (75-99)
[2019-11-19] MEDS ORDERED: INSULIN REGULAR BOLUS (FROM DRIP BAG) IV ONE (12:00)
[2019-11-19] MEDS: DAPAGLIFLOZIN PROPANEDIOL 5 MG PO SCH (12:14)
[2019-11-19] MEDS: INSULIN ASPART (NovoLOG) 100 UNIT/ML VIAL SQ SCH ×2 (12:22→16:59)
[2019-11-19] MEDS ORDERED: INSULIN ASPART (NovoLOG) 100 UNIT/ML VIAL SQ SCH (12:30)
[2019-11-19] MEDS: INSULIN REGULAR 100 UNIT in SODIUM CHLORIDE 0.9% 100 ML IV SCH ×2 (12:46→16:31)
[2019-11-19 13:20] LABS: Glucose,Whole Blood 522 mg/dL (75-99)
[2019-11-19] MEDS: BUDESONIDE 1 MG/2 ML NEBU INHALATION SCH ×2 (13:20→19:29)
[2019-11-19] MEDS: IPRATROPIUM-ALBUTEROL 3 ML NEB INHALATION SCH ×3 (13:20→19:30)
[2019-11-19 14:05] LABS: Glucose,Whole Blood 423 mg/dL (75-99)
[2019-11-19 14:15] LABS: Glucose,Whole Blood 378 mg/dL (75-99)
[2019-11-19 14:33] LABS: Glucose,Whole Blood 401 mg/dL (75-99)
[2019-11-19 15:06] LABS: Glucose,Whole Blood 356 mg/dL (75-99)
[2019-11-19] MEDS: OXcarbazepine 300 MG TAB PO SCH ×2 (15:28→20:24)
[2019-11-19 15:32] LABS: Glucose,Whole Blood 360 mg/dL (75-99)
[2019-11-19 16:05] LABS: Glucose,Whole Blood 278 mg/dL (75-99)
--- NOTE | 2019-11-19 16:14 | P.HPIM ---
History of Present Illness H&P Date: 11/19/19 Chief Complaint: Short of breath History of presenting complaint: This is a 79-year-old patient of Dr. Giraldo. Chronic stable medical conditions include coronary artery disease with stent, osteoarthritis, diabetic peripheral neuropathy, rosacea, atrial fibrillation on eliquis. Left below-knee amputation. Peripheral artery disease. Patient stopped smoking a few months ago. Patient presents with 3 days of progressively short of breath and increasing wheezing. With a slight cough. No fever. Appetite is fair. She does use 2 L of oxygen at home. Very little sputum production if any. No chills. Started on steroids and bronchodilators. Patient stop smoking a few weeks ago.. Review of systems: GEN.: Tired EYES: [None] HEENT: [None] NECK: [None] RESPIRATORY: [As above] CARDIOVASCULAR: [None] GASTROINTESTINAL: [None] GENITOURINARY: [None] MUSCULOSKELETAL: [Some joint pain, left below-knee amputation] LYMPHATICS: [None] HEMATOLOGICAL: [None] PSYCHIATRY: [None] NEUROLOGICAL: [None] Past medical history to include: COPD, left below-knee amputation, peripheral artery disease, atrial fibrillation, coronary artery disease with stent, COPD, diabetic peripheral neuropathy, Social history: Patient being smoking over 65 years, stopped a few weeks ago. Lives with her daughter. Physical examination: VITAL SIGNS: 98.3, 6-3, 17, 159/79, 98% on 2 L GENERAL: BMI 27.5, sitting up in bed, slightly short of breath EYES: Pupils equal. Conjunctiva normal. HEENT: External appearance of nose and ears normal, oral cavity dry NECK: JVD not raised; masses not palpable. HEART: Irregular heart sounds, minimal edema. LUNGS: Respiratory rate increased, diminished breath sounds, coarse breath sounds ABDOMEN: Soft, nontender, liver spleen not palpable, no masses palpable. PSYCH: AO - times three. Mood and affect normal NEUROLOGICAL: Cranial nerves grossly intact; no facial asymmetry, LYMPHATICS: No lymph nodes palpable in the axilla and neck EXTREMITY: Left below-knee amputation INVESTIGATIONS, reviewed in the clinical context: White count 5.8 hemoglobin 10.3 platelets 191 potassium 3.8 creatinine 0.5 to Lactic acid 2.1, proBNP 929 Troponin I less than 0.012, 0.018 EKG tracing personally reviewed by me-atrial fibrillation with some T-wave montes ges Chest x-ray film personally reviewed by me-cardiomegaly with some prominent interstitium Accu-Chek 240, [id number] Assessment: -Acute COPD exacerbation in an ex-smoker -Chronic hypoxic respiratory failure,, on 2 L of October and at home at night from underlying COPD Improved -Peripheral arterial disease -Persistent atrial flutter , fibrillation chronically on eliquis -Left below-knee amputation -Coronary artery disease a prior history of stent -Primary osteoarthritis -Diabetic peripheral neuropathy -Severe peripheral arterial disease -Mild Cognitive impairment -Diabetes mellitus type 2, uncontrolled with hyperglycemia, secondary to steroids-started on insulin drip Plan: Home medications resumed. Patient started on nebulized bronchodilators and steroids. Sugars are running high will be started on insulin drip. Care was discussed with the patient question answered. Expect the patient to be the hospital for more than 2 nights hours. Past Medical History Past Medical History: Heart Failure, COPD, Diabetes Mellitus, Diabetes Mellitus, Myocardial Infarction (MT), Myocardial Infarction (MT), Osteoarthritis (OA), Respiratory Disorder, Skin Disorder, Vascular Disorder Additional Past Medical History / Comment(s): Trigeminal Neuralgia, Diabetic Neuropathy, MT 1994, rosacea, Hypoxic Respiratory Failure; Raynauds; PVD; Ane parmjit, left BKA done in 2019 Last Myocardial Infarction Date:: 1994 History of Any Multi-Drug Resistant Organisms: None Reported Past Surgical History: Appendectomy, Cholecystectomy, Heart Catheterization With Stent, Hysterectomy, Orthopedic Surgery, Pacemaker Additional Past Surgical History / Comment(s): Arthrectomy rt leg, Angioplasty, Pacemaker August 2016, left Foot Surgery, one heart stent Past Anesthesia/Blood Transfusion Reactions: No Reported Reaction Date of Last Stent Placement:: 1994 Type of Cardiac Device: Permanent Pacemaker Device Placement Date:: August 2016 Past Psychological History: No Psychological Hx Reported Additional Psychological History / Comment(s): 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 No experience. No travel. No animal exposures Smoking Status: Former smoker Past Alcohol Use History: None Reported Additional Past Alcohol Use History / Comment(s): occassional cigarette - about 3 a day. Started smoking in 1952. Past Drug Use History: None Reported - Past Family History Father Family Medical History: Myocardial Infarction (MT) Mother Family Medical History: Congestive Heart Failure (CHF), CVA/TIA, Diabetes Mellitus Medications and Allergies Home Medications Medication Instructions Recorded Confirmed Type Montelukast [Singulair] 10 mg PO HS #30 tab 09/20/16 11/19/19 Rx Cholecalciferol [Vitamin D3 (25 2,000 unit PO DAILY@1700 07/18/17 11/19/19 History Mcg = 1000 Iu)] Cyanocobalamin (Vitamin B-12) 1,000 mcg PO DAILY@1700 07/18/17 11/19/19 History [Vitamin B-12] Losartan [Cozaar] 50 mg PO DAILY 07/18/17 11/19/19 History Acetaminophen [Tylenol Extra 500 mg PO Q6HR PRN 07/20/17 11/19/19 History Strength] Liraglutide [Victoza 2-Orlin] 1.8 mg SQ HS 12/26/18 11/19/19 History Clopidogrel [Plavix] 75 mg PO DAILY 01/10/19 11/19/19 History OXcarbazepine [Trileptal] 300 mg PO BID 01/10/19 11/19/19 History Rosuvastatin [Crestor] 20 mg PO DAILY 01/10/19 11/19/19 History metFORMIN HCL [metFORMIN HCL ER] 750 mg PO BID 02/15/19 11/19/19 History Donepezil [Aricept] 10 mg PO HS 05/19/19 11/19/19 History ALPRAZolam [Xanax] 0.25 mg PO DAILY PRN 06/13/19 11/19/19 History Apixaban [Eliquis] 5 mg PO BID 06/13/19 11/19/19 History Dapagliflozin Propanediol [Farxiga] 5 mg PO DAILY 06/13/19 11/19/19 History Pregabalin [Lyrica] 200 mg PO BID 06/14/19 11/19/19 History Albuterol Inhaler [Ventolin Hfa 2 puff INHALATION RT-QID PRN 11/19/19 11/19/19 History Inhaler] Furosemide [Lasix] 20 mg PO DAILY 11/19/19 11/19/19 History Allergies Allergy/AdvReac Type Severity Reaction Status Date / Time codeine AdvReac Nausea & Verified 11/19/19 08:41 Vomiting sitagliptin [From t] AdvReac frequent Verified 11/19/19 08:41 UTI Physical Exam Vitals: Vital Signs Temp Pulse Pulse Resp BP BP Pulse Ox 11/19/19 08:48 83 11/19/19 08:32 86 96 11/19/19 07:25 73 15 11/19/19 07:00 97.9 F 68 18 174/96 97 11/19/19 05:21 98.2 F 73 14 154/75 95 11/19/19 03:54 98.3 F 63 19 165/81 97 11/19/19 03:34 98.3 F 63 17 159/79 98 11/19/19 01:50 98.1 F 11/19/19 01:29 68 16 185/94 99 Intake and Output 11/18/19 11/19/19 11/19/19 22:59 06:59 14:59 Intake Total 75 Balance 75 Intake: Intake, IV Titration 75 Amount Sodium Chloride 0.9% 1, 75 000 ml @ 75 mls/hr IV . [id number] [facility] Rx#:[id number] Other: Voiding Method Toilet Toilet Weight 74.843 kg Results CBC & Chem 7: 11/19/19 01:48 11/19/19 11:30 Labs: Abnormal Lab Results - Last 24 Hours (Table) 11/19/19 11/19/19 11/19/19 Range/Units 01:48 01:48 01:48 Hgb 10.3 L (11.4-16.0) gm/dL MCV 75.2 L (80.0-100.0) fL MCH 21.7 L (25.0-35.0) pg MCHC 28.8 L (31.0-37.0) g/dL RDW 19.1 H (11.5-15.5) % APTT 21.1 L (22.0-30.0) sec BUN 21 H (7-17) mg/dL Glucose 240 H (74-99) mg/dL Plasma Lactic Acid Naveen (0.7-2.0) mmol/L AST 43 H (14-36) U/L Alkaline Phosphatase 163 H (38-126) U/L 11/19/19 11/19/19 11/19/19 Range/Units 01:48 04:50 07:44 Hgb (11.4-16.0) gm/dL MCV (80.0-100.0) fL MCH (25.0-35.0) pg MCHC (31.0-37.0) g/dL RDW (11.5-15.5) % APTT (22.0-30.0) sec BUN (7-17) mg/dL Glucose (74-99) mg/dL Plasma Lactic Acid Naveen 2.1 H* 3.8 H* 4.5 H* (0.7-2.0) mmol/L AST (14-36) U/L Alkaline Phosphatase (38-126) U/L Thrombosis Risk Factor Assmnt - Choose All That Apply Any of the Below Risk Factors Present?: Yes Each Factor Represents 1 point: Abnormal pulmonary function (COPD) Other Risk Factors: Yes Each Risk Factor Represents 3 Points: Age 75 years or older Other congenital or acquired thrombophilia - If yes, enter type in comment: No Thrombosis Risk Factor Assessment Total Risk Factor Score: 4 Thrombosis Risk Factor Assessment Level: Moderate Risk
[2019-11-19 16:38] LABS: Glucose,Whole Blood 287 mg/dL (75-99)
[2019-11-19] MEDS: CYANOCOBALAMIN 500 MCG TAB PO SCH (16:58)
[2019-11-19 17:04] LABS: Glucose,Whole Blood 256 mg/dL (75-99)
[2019-11-19 17:33] LABS: Glucose,Whole Blood 270 mg/dL (75-99)
[2019-11-19 18:20] LABS: Glucose,Whole Blood 247 mg/dL (75-99)
[2019-11-19 20:06] LABS: Glucose,Whole Blood 274 mg/dL (75-99)
[2019-11-19] MEDS: NON FORMULARY DRUG (Liraglutide [Victoza 2-Pak] 1.8 MG) SQ SCH (20:07)
[2019-11-19] MEDS: DONEPEZIL 10 MG TAB PO SCH (20:24)
[2019-11-19] MEDS: MONTELUKAST 10 MG TAB PO SCH (20:24)
[2019-11-19 22:16] LABS: Glucose,Whole Blood 191 mg/dL (75-99)
[2019-11-20 00:08] LABS: Glucose,Whole Blood 208 mg/dL (75-99)
[2019-11-20] MEDS: IPRATROPIUM-ALBUTEROL 3 ML NEB INHALATION SCH ×7 (01:15→23:38)
[2019-11-20 02:11] LABS: Glucose,Whole Blood 156 mg/dL (75-99)
[2019-11-20 04:16] LABS: Glucose,Whole Blood 129 mg/dL (75-99)
[2019-11-20 05:24] LABS: Glucose,Whole Blood 131 mg/dL (75-99)
[2019-11-20] MEDS: SODIUM CHLORIDE 0.9% 1,000 ML IV SCH ×3 (06:10→23:04)
[2019-11-20 06:17] LABS: Glucose,Whole Blood 168 mg/dL (75-99)
[2019-11-20 08:01] LABS: Glucose,Whole Blood 126 mg/dL (75-99)
[2019-11-20] MEDS: BUDESONIDE 1 MG/2 ML NEBU INHALATION SCH ×2 (08:26→18:39)
[2019-11-20] MEDS: PREGABALIN 100 MG CAP PO SCH ×2 (09:13→20:37)
[2019-11-20] MEDS: INSULIN ASPART (NovoLOG) 100 UNIT/ML VIAL SQ SCH ×3 (09:13→17:02)
[2019-11-20 09:14] LABS: Glucose,Whole Blood 196 mg/dL (75-99)
[2019-11-20] MEDS: APIXABAN 5 MG TAB PO SCH ×2 (09:14→20:37)
[2019-11-20] MEDS: OXcarbazepine 300 MG TAB PO SCH ×2 (09:14→20:37)
[2019-11-20] MEDS: predniSONE 20 MG TAB PO SCH (09:14)
[2019-11-20] MEDS: LOSARTAN 50 MG TAB PO SCH (09:14)
[2019-11-20] MEDS: ATORVASTATIN 40 MG TAB PO SCH (09:14)
[2019-11-20] MEDS: metFORMIN 500 MG TAB PO SCH ×2 (09:14→20:37)
[2019-11-20] MEDS: CLOPIDOGREL 75 MG TAB PO SCH (09:14)
[2019-11-20] MEDS: DAPAGLIFLOZIN PROPANEDIOL 5 MG PO SCH (09:21)
[2019-11-20 10:36] LABS: Glucose,Whole Blood 203 mg/dL (75-99)
[2019-11-20 12:08] LABS: Glucose,Whole Blood 194 mg/dL (75-99)
[2019-11-20] MEDS: CYANOCOBALAMIN 500 MCG TAB PO SCH (12:44)
[2019-11-20 14:04] LABS: Glucose,Whole Blood 258 mg/dL (75-99)
[2019-11-20 16:14] LABS: Glucose,Whole Blood 128 mg/dL (75-99)
[2019-11-20 17:14] LABS: Appearance,Urine Clear (Clear); Bacteria,Urine Rare /hpf; Bilirubin,Urine Negative (Negative); Blood,Urine Moderate (Negative); Color,Urine Light Yellow; Glucose,Urine (UA) Trace (Negative); Ketones,Urine Negative (Negative); Leukocyte Esterase,Urine Negative (Negative); Mucus,Urine Rare /hpf; Nitrite,Urine Negative (Negative); Protein,Urine Trace (Negative); RBC,Urine 7 /hpf (0-5); Specific Gravity,Urine 1.007 (1.001-1.035); Squamous Epithelial Cell,Urine <1 /hpf (0-4); Urobilinogen,Urine <2.0 mg/dL (<2.0); WBC,Urine 1 /hpf (0-5)
[2019-11-20 17:56] LABS: Glucose,Whole Blood 178 mg/dL (75-99)
[2019-11-20 20:15] LABS: Glucose,Whole Blood 251 mg/dL (75-99)
[2019-11-20] MEDS: DONEPEZIL 10 MG TAB PO SCH (20:37)
[2019-11-20] MEDS: MONTELUKAST 10 MG TAB PO SCH (20:37)
[2019-11-20] MEDS: NON FORMULARY DRUG (Liraglutide [Victoza 2-Pak] 1.8 MG) SQ SCH (20:38)
[2019-11-20] MEDS: INSULIN REGULAR 100 UNIT in SODIUM CHLORIDE 0.9% 100 ML IV SCH (21:39)
--- NOTE | 2019-11-20 21:53 | P.PN ---
Progress Note - Text Progress Note Date: 11/20/19 Chief Complaint: Short of breath History of presenting complaint: This is a 79-year-old patient of Dr. Giraldo. Chronic stable medical conditions include coronary artery disease with stent, osteoarthritis, diabetic peripheral neuropathy, rosacea, atrial fibrillation on eliquis. Left below-knee amputation. Peripheral artery disease. Patient stopped smoking a few months ago. Patient presents with 3 days of progressively short of breath and increasing wheezing. With a slight cough. No fever. Appetite is fair. She does use 2 L of oxygen at home. Very little sputum production if any. No chills. Admitted with COPD exacerbation. Started on steroids and bronchodilators. Today-breathing a bit better. Does feel a bit tired. Less wheezing. He tolerated diet. Review of systems: Was done for constitutional, cardiovascular, GI, pulmonary. relevant finding as above Active Medications Acetaminophen (Tylenol Tab) 500 mg PO Q6HR PRN PRN Reason: Moderate Pain Albuterol/Ipratropium (Duoneb 0.5 Mg-3 Mg/3 Ml Soln) 3 ml INHALATION RT-Q4H PRN PRN Reason: Shortness Of Breath Or Wheezing Albuterol/Ipratropium (Duoneb 0.5 Mg-3 Mg/3 Ml Soln) 3 ml INHALATION RT-Q4H [facility] Last Admin: 11/20/19 18:39 Dose: 3 ml Documented by: Alprazolam (Xanax) 0.25 mg PO DAILY PRN PRN Reason: Anxiety Apixaban (Eliquis) 5 mg PO BID [facility] Last Admin: 11/20/19 20:37 Dose: 5 mg Documented by: Atorvastatin Calcium (Lipitor) 40 mg PO DAILY [facility] Last Admin: 11/20/19 09:14 Dose: 40 mg Documented by: Budesonide (Pulmicort) 1 mg INHALATION RT-BID [facility] Last Admin: 11/20/19 18:39 Dose: 1 mg Documented by: Clopidogrel Bisulfate (Plavix) 75 mg PO DAILY [facility] Last Admin: 11/20/19 09:14 Dose: 75 mg Documented by: Cyanocobalamin (Vitamin B-12) 1,000 mcg PO DAILY@1700 [facility] Last Admin: 11/20/19 12:44 Dose: 1,000 mcg Documented by: Donepezil HCl (Aricept) 10 mg PO HS [facility] Last Admin: 11/20/19 20:37 Dose: 10 mg Documented by: Sodium Chloride (Saline 0.9%) 1,000 mls @ 75 mls/hr IV .[id number] [facility] Last Admin: 11/20/19 09:15 Dose: 75 mls/hr Documented by: Insulin Human Regular 100 unit (/ Sodium Chloride) 101 mls @ 0 mls/hr IV .Q0M [facility]; Protocol Last Admin: 11/20/19 21:39 Dose: 5 units/hrs, 5.05 mls/hr Documented by: Insulin Aspart (Novolog) 10 unit 0.13 unit/kg (10 unit) SQ AC-TID [facility] Last Admin: 11/20/19 17:02 Dose: Not Given Documented by: Losartan Potassium (Cozaar) 50 mg PO DAILY [facility] Last Admin: 11/20/19 09:14 Dose: 50 mg Documented by: Metformin HCl (Glucophage) 750 mg PO BID [facility] Last Admin: 11/20/19 20:37 Dose: 750 mg Documented by: Montelukast Sodium (Singulair) 10 mg PO [facility] Last Admin: 11/20/19 20:37 Dose: 10 mg Documented by: Non-Formulary Medication (Dapagliflozin Propanediol [Farxiga]) 5 mg PO DAILY [facility] Last Admin: 11/20/19 09:21 Dose: Not Given Documented by: Non-Formulary Medication (Liraglutide [Victoza 2-Orlin]) 1.8 mg SQ [facility] Last Admin: 11/20/19 20:38 Dose: Not Given Documented by: Oxcarbazepine (Trileptal) 300 mg PO BID [facility] Last Admin: 11/20/19 20:37 Dose: 300 mg Documented by: Prednisone () 40 mg PO DAILY [facility] Last Admin: 11/20/19 09:14 Dose: 40 mg Documented by: Prednisone () 30 mg PO DAILY [facility] Pregabalin (Lyrica) 200 mg PO BID [facility] Last Admin: 11/20/19 20:37 Dose: 200 mg Documented by: Physical examination: VITAL SIGNS: 98.3, 68, 20, 1 61 x 81, 96% room air GENERAL: sitting up in bed, breathing better EYES: Pupils equal. Conjunctiva normal. NECK: JVD not raised; masses not palpable. HEART: Irregular heart sounds, minimal edema. LUNGS: Respiratory rate increased, diminished breath sounds, coarse breath sounds ABDOMEN: Soft, nontender, liver spleen not palpable, no masses palpable. PSYCH: AO - times three. Mood and affect normal NEUROLOGICAL: Cranial nerves grossly intact; no facial asymmetry, EXTREMITY: Left below-knee amputation INVESTIGATIONS, reviewed in the clinical context: White count 5.8 hemoglobin 10.3 platelets 191 potassium 3.8 creatinine 0.5 to Lactic acid 2.1, proBNP 929 Troponin I less than 0.012, 0.018 EKG tracing personally reviewed by me-atrial fibrillation with some T-wave changes Chest x-ray film personally reviewed by me-cardiomegaly with some prominent interstitium Accu-Chek 240, [id number] Assessment: -Acute COPD exacerbation in an [id number] -Chronic hypoxic respiratory failure,, on 2 L of October and at home at night from underlying COPD -Peripheral arterial disease -Persistent atrial flutter , fibrillation chronically on eliquis -Left below-knee amputation -Coronary artery disease a prior history of stent -Primary osteoarthritis -Diabetic peripheral neuropathy -Severe peripheral arterial disease -Mild Cognitive impairment -Diabetes mellitus type 2, uncontrolled with hyperglycemia, secondary to steroids-started on insulin drip Plan: Cutback on a dose of steroids. We'll give her dose of Lantus tonight. DC insulin drip.
[2019-11-20] MEDS ORDERED: INSULIN DETEMIR (LEVEMIR) 100 UNIT/ML SYR SQ SCH (22:00)
[2019-11-20 22:36] LABS: Glucose,Whole Blood 175 mg/dL (75-99)
[2019-11-21 02:31] LABS: Glucose,Whole Blood 168 mg/dL (75-99)
[2019-11-21] MEDS: IPRATROPIUM-ALBUTEROL 3 ML NEB INHALATION SCH ×4 (03:46→16:08)
[2019-11-21 04:14] VITALS: RESP 20
[2019-11-21] MEDS: BUDESONIDE 1 MG/2 ML NEBU INHALATION SCH (05:46)
[2019-11-21 07:16] LABS: Glucose,Whole Blood 154 mg/dL (75-99)
[2019-11-21] MEDS: APIXABAN 5 MG TAB PO SCH (07:20)
[2019-11-21] MEDS: ATORVASTATIN 40 MG TAB PO SCH (07:20)
[2019-11-21] MEDS: PREGABALIN 100 MG CAP PO SCH (07:20)
[2019-11-21] MEDS: OXcarbazepine 300 MG TAB PO SCH (07:21)
[2019-11-21] MEDS: metFORMIN 500 MG TAB PO SCH (07:21)
[2019-11-21] MEDS: LOSARTAN 50 MG TAB PO SCH (07:22)
[2019-11-21] MEDS: INSULIN ASPART (NovoLOG) 100 UNIT/ML VIAL SQ SCH ×4 (07:22→12:42)
[2019-11-21] MEDS: CLOPIDOGREL 75 MG TAB PO SCH (07:22)
[2019-11-21] MEDS: DAPAGLIFLOZIN PROPANEDIOL 5 MG PO SCH (07:23)
[2019-11-21] MEDS ORDERED: predniSONE 10 MG TAB PO SCH (09:00)
[2019-11-21] MEDS: SODIUM CHLORIDE 0.9% 1,000 ML IV SCH (10:51)
[2019-11-21 12:15] VITALS: BP 139/71; TEMP 97.1
[2019-11-21 12:26] LABS: Glucose,Whole Blood 135 mg/dL (75-99)
[2019-11-21 16:18] VITALS: PULSE 71
--- NOTE | 2019-11-21 22:07 | P.DS ---
Providers Date of admission: 11/19/19 15:01 Expected date of discharge: 11/21/19 Attending physician: Momo Medina Primary care physician: Physician Nonstaff Hospital Course: Chief Complaint: Short of breath History of presenting complaint: This is a 79-year-old patient of Dr. Giraldo. Chronic stable medical conditions include coronary artery disease with stent, osteoarthritis, diabetic peripheral neuropathy, rosacea, atrial fibrillation on eliquis. Left below-knee amputation. Peripheral artery disease. Patient stopped smoking a few months ago. Patient presents with 3 days of progressively short of breath and increasing wheezing. With a slight cough. No fever. Appetite is fair. She does use 2 L of oxygen at home. Very little sputum production if any. No chills. Admitted with COPD exacerbation. Started on steroids and bronchodilators. Today-breathing much improved. Starting a diet. Care discussed at length with the patient. Questions answered. Discussion and discharge planning more than 35 minutes Physical examination: VITAL SIGNS: 97.1, 71, 20, 139 with 71, 98% on 2 L GENERAL: sitting up in bed, improved EYES: Pupils equal. Conjunctiva normal. NECK: JVD not raised; masses not palpable. HEART: Irregular heart sounds, minimal edema. LUNGS: Respiratory rate increased, diminished breath sounds, coarse breath sounds ABDOMEN: Soft, nontender, liver spleen not palpable, no masses palpable. PSYCH: AO - times three. Mood and affect normal EXTREMITY: Left below-knee amputation INVESTIGATIONS, reviewed in the clinical context: White count 5.8 hemoglobin 10.3 platelets 191 potassium 3.8 creatinine 0.5 to Lactic acid 2.1, proBNP 929 Troponin I less than 0.012, 0.018 EKG tracing personally reviewed by me-atrial fibrillation with some T-wave changes Chest x-ray film personally reviewed by me-cardiomegaly with some prominent interstitium Accu-Chek 240, 576 Assessment: -Acute COPD exacerbation in an [id number] -Chronic hypoxic respiratory failure,, on 2 L of October and at home at night from underlying COPD -Peripheral arterial disease -Persistent atrial flutter , fibrillation chronically on eliquis -Left below-knee amputation -Coronary artery disease a prior history of stent -Primary osteoarthritis -Diabetic peripheral neuropathy -Severe peripheral arterial disease -Mild Cognitive impairment -Diabetes mellitus type 2, uncontrolled with hyperglycemia, secondary to steroids-started on insulin drip Disposition: Home Patient Condition at Discharge: Stable Plan - Discharge Summary Discharge Rx Participant: No New Discharge Prescriptions: New Ipratropium-Albuterol Nebulize [Duoneb 0.5 mg-3 mg/3 ml Soln] 3 ml INHALATION TID ml predniSONE 0 mg PO DIRECTED #12 tab Continue Montelukast [Singulair] 10 mg PO HS #30 tab Losartan [Cozaar] 50 mg PO DAILY Cholecalciferol [Vitamin D3 (25 Mcg = 1000 Iu)] 2,000 unit PO DAILY@1700 Cyanocobalamin (Vitamin B-12) [Vitamin B-12] 1,000 mcg PO DAILY@1700 Acetaminophen [Tylenol Extra Strength] 500 mg PO Q6HR PRN PRN Reason: Moderate Pain Liraglutide [Victoza 2-Orlin] 1.8 mg SQ HS Rosuvastatin [Crestor] 20 mg PO DAILY OXcarbazepine [Trileptal] 300 mg PO BID Clopidogrel [Plavix] 75 mg PO DAILY metFORMIN HCL [metFORMIN HCL ER] 750 mg PO BID Donepezil [Aricept] 10 mg PO HS Apixaban [Eliquis] 5 mg PO BID ALPRAZolam [Xanax] 0.25 mg PO DAILY PRN PRN Reason: Anxiety Dapagliflozin Propanediol [Farxiga] 5 mg PO DAILY Pregabalin [Lyrica] 200 mg PO BID Albuterol Inhaler [Ventolin Hfa Inhaler] 2 puff INHALATION RT-QID PRN PRN Reason: Shortness Of Breath Discontinued Furosemide [Lasix] 20 mg PO DAILY Discharge Medication List Montelukast [Singulair] 10 mg PO HS #30 tab 09/20/16 [Rx] Cholecalciferol [Vitamin D3 (25 Mcg = 1000 Iu)] 2,000 unit PO DAILY@1700 07/18/17 [History] Cyanocobalamin (Vitamin B-12) [Vitamin B-12] 1,000 mcg PO DAILY@1700 07/18/17 [History] Losartan [Cozaar] 50 mg PO DAILY 07/18/17 [History] Acetaminophen [Tylenol Extra Strength] 500 mg PO Q6HR PRN 07/20/17 [History] Liraglutide [Victoza 2-Orlin] 1.8 mg SQ HS 12/26/18 [History] Clopidogrel [Plavix] 75 mg PO DAILY 01/10/19 [History] OXcarbazepine [Trileptal] 300 mg PO BID 01/10/19 [History] Rosuvastatin [Crestor] 20 mg PO DAILY 01/10/19 [History] metFORMIN HCL [metFORMIN HCL ER] 750 mg PO BID 02/15/19 [History] Donepezil [Aricept] 10 mg PO HS 05/19/19 [History] ALPRAZolam [Xanax] 0.25 mg PO DAILY PRN 06/13/19 [History] Apixaban [Eliquis] 5 mg PO BID 06/13/19 [History] Dapagliflozin Propanediol [Farxiga] 5 mg PO DAILY 06/13/19 [History] Pregabalin [Lyrica] 200 mg PO BID 06/14/19 [History] Albuterol Inhaler [Ventolin Hfa Inhaler] 2 puff INHALATION RT-QID PRN 11/19/19 [History] Ipratropium-Albuterol Nebulize [Duoneb 0.5 mg-3 mg/3 ml Soln] 3 ml INHALATION TID ml 11/21/19 [Rx] predniSONE 0 mg PO DIRECTED #12 tab 11/21/19 [Rx] Follow up Appointment(s)/Referral(s): dr belinda [Other] - 1 Week [facility], [NON-STAFF] - Nonstaff,Physician [Primary Care Provider] - 1-2 days Patient Instructions/Handouts: Wound Infection (DC), Chronic Lung Disease and Infection Prevention (DC) Activity/Diet/Wound Care/Special Instructions: PCP: Dr. Martinez at the [facility] in [place] Discharge Disposition: HOME SELF-CARE
== END 2019-11-21 16:59 | disposition home health service (06) | DRG 191 ==
LOC: EC 01:28 → 4SSUR 03:01 → OBSVTOIN 15:01
PROVIDERS: ADMIT Hospitalist; ATTEND Hospitalist
DX: J44.1 Chronic obstructive pulmonary disease with (acute) exacerbation (principal); J96.11 Chronic respiratory failure with hypoxia; I48.92 Unspecified atrial flutter; I48.19 Other persistent atrial fibrillation; L71.9 Rosacea, unspecified; M19.91 Primary osteoarthritis, unspecified site; T38.0X5A Adverse effect of glucocorticoids and synthetic analogues, initial encounter; E11.42 Type 2 diabetes mellitus with diabetic polyneuropathy; E11.65 Type 2 diabetes mellitus with hyperglycemia; F17.210 Nicotine dependence, cigarettes, uncomplicated; G31.84 Mild cognitive impairment of uncertain or unknown etiology; E11.51 Type 2 diabetes mellitus with diabetic peripheral angiopathy without gangrene; I25.10 Atherosclerotic heart disease of native coronary artery without angina pectoris; I25.2 Old myocardial infarction; Z79.01 Long term (current) use of anticoagulants; I50.9 Heart failure, unspecified; I73.00 Raynaud's syndrome without gangrene; Z79.02 Long term (current) use of antithrombotics/antiplatelets; Z79.51 Long term (current) use of inhaled steroids; Z79.84 Long term (current) use of oral hypoglycemic drugs; Z79.899 Other long term (current) drug therapy; Z82.49 Family history of ischemic heart disease and other diseases of the circulatory system; Z83.3 Family history of diabetes mellitus; Z82.3 Family history of stroke; Z89.512 Acquired absence of left leg below knee; Z90.710 Acquired absence of both cervix and uterus; Z95.1 Presence of aortocoronary bypass graft; Z95.5 Presence of coronary angioplasty implant and graft; Z95.0 Presence of cardiac pacemaker; Z99.81 Dependence on supplemental oxygen
CPT/HCPCS: 36415; 71046; 80053; 81001; 82947; 83605; 83735; 83880; 84484; 85025; 85610; 85730; 93005; 94640; 94760; 99285

== ENCOUNTER 2020-09-05 23:19 | Inpatient (IN) | payer MEDICARE, OTHER ==
[2020-09-05] MEDS ORDERED: IPRATROPIUM-ALBUTEROL 3 ML NEB INHALATION STA (23:37)
[2020-09-05] MEDS ORDERED: TIOTROPIUM 2.5 MCG INHALER INHALATION STA (23:52)
[2020-09-05] MEDS ORDERED: ALBUTEROL HFA INHALER INHALATION STA (23:52)
--- NOTE | 2020-09-06 00:03 | XR ---
EXAMINATION TYPE: XR chest 2V DATE OF EXAM: 09/05/2020 COMPARISON: 11/19/2019 HISTORY: Short of breath TECHNIQUE: FINDINGS: Heart is enlarged. There is pulmonary vascular congestion. There is blunting of the costoph renic angles. There is left axillary pacemaker. There are chest leads. IMPRESSION: Congestive heart failure with pleural effusions. Pleural fluid and congestion increased compared to o ld exam.
--- NOTE | 2020-09-06 00:26 | ED ---
SOB HPI - General Source: patient, EMS Mode of arrival: EMS <Lesvia Townsend - Last Filed: 09/06/20 03:06> <Ibrahima Ayala - Last Filed: 09/06/20 03:43> - General Chief Complaint: Shortness of Breath Stated Complaint: FADY Time Seen by Provider: 09/05/20 23:21 - History of Present Illness Initial Comments: Patient is an 80-year-old female with history of COPD, on 2 L at night, diabetes, heart disease with pacemaker, presenting to the emergency department via EMS for shortness of breath that started increasing this morning. Patient s tates her breathing became worse throughout today and this evening decided to come in to be seen. She states she recently had vascular surgery at [facility] 2 weeks ago secondary to vascular disease. She has been recovering well for this, had a normal follow-up. She is finished with her antibiotics. She states she did try at home nebulizers without improvement. She denies any chest pains, no recent fevers or increasing coughing. She denies any nausea or vomiting, or abdominal pain. She denies any dysuria. She is on 2 blood thinners, eliquis and plavix. She denies any headaches, no dizziness. She has no further complaints at this time. Upon arrival to the ER, she is hypertensive at 202/100, she is on 4 L at 96%, afebrile. (Lesvia Townsend) - Related Data Home Medications Medication Instructions Recorded Confirmed Cholecalciferol [Vitamin D3 (25 2,000 unit PO DAILY@1700 07/18/17 11/19/19 Mcg = 1000 Iu)] Cyanocobalamin (Vitamin B-12) 1,000 mcg PO DAILY@1700 07/18/17 11/19/19 [Vitamin B-12] Losartan [Cozaar] 50 mg PO DAILY 07/18/17 11/19/19 Acetaminophen [Tylenol Extra 500 mg PO Q6HR PRN 07/20/17 11/19/19 Strength] Liraglutide [Victoza 2-Orlin] 1.8 mg SQ HS 12/26/18 11/19/19 Clopidogrel [Plavix] 75 mg PO DAILY 01/10/19 11/19/19 OXcarbazepine [Trileptal] 300 mg PO BID 01/10/19 11/19/19 Rosuvastatin [Crestor] 20 mg PO DAILY 01/10/19 11/19/19 metFORMIN HCL [metFORMIN HCL ER] 750 mg PO BID 02/15/19 11/19/19 Donepezil [Aricept] 10 mg PO HS 05/19/19 11/19/19 ALPRAZolam [Xanax] 0.25 mg PO DAILY PRN 06/13/19 11/19/19 Apixaban [Eliquis] 5 mg PO BID 06/13/19 11/19/19 Dapagliflozin Propanediol [Farxiga] 5 mg PO DAILY 06/13/19 11/19/19 Pregabalin [Lyrica] 200 mg PO BID 06/14/19 11/19/19 Albuterol Inhaler [Ventolin Hfa 2 puff INHALATION RT-QID PRN 11/19/19 11/19/19 Inhaler] Previous Rx's Medication Instructions Recorded Montelukast [Singulair] 10 mg PO HS #30 tab 09/20/16 Ipratropium-Albuterol Nebulize 3 ml INHALATION TID ml 11/21/19 [Duoneb 0.5 mg-3 mg/3 ml Soln] predniSONE 0 mg PO DIRECTED #12 tab 11/21/19 Allergies Allergy/AdvReac Type Severity Reaction Status Date / Time codeine AdvReac Nausea & Verified 09/05/20 23:29 Vomiting sitagliptin [From Janumet] AdvReac frequent Verified 09/05/20 23:29 UTI Review of Systems ROS Other: All systems not noted in ROS Statement are negative. <Lesvia Townsend - Last Filed: 09/06/20 03:06> ROS Other: All systems not noted in ROS Statement are negative. <Ibrahima Ayala - Last Filed: 09/06/20 03:43> ROS Statement: Those systems with pertinent positive or pertinent negative responses have been documented in the HPI. Past Medical History Past Medical History: Heart Failure, COPD, Diabetes Mellitus, Diabetes Mellitus, Myocardial Infarction (UT), Myocardial Infarction (UT), Osteoarthritis (OA), Respiratory Disorder, Skin Disorder, Vascular Disorder Additional Past Medical History / Comment(s): Trigeminal Neuralgia, Diabetic Neuropathy, [place] 1994, rosacea, Hypoxic Respiratory Failure; Raynauds; PVD; Anemia, left BKA done in 2019 Last Myocardial Infarction Date:: 1994 History of Any Multi-Drug Resistant Organisms: None Reported Past Surgical History: Appendectomy, Cholecystectomy, Heart Catheterization With Stent, Hysterectomy, Orthopedic Surgery, Pacemaker Additional Past Surgical History / Comment(s): Arthrectomy rt leg, Angioplasty, Pacemaker August 2016, left below the knee amputation, one heart stent Past Anesthesia/Blood Transfusion Reactions: No Reported Reaction Date of Last Stent Placement:: 1994 Type of Cardiac Device: Permanent Pacemaker Device Placement Date:: August 2016 Past Psychological History: No Psychological Hx Reported Smoking Status: Former smoker Past Alcohol Use History: None Reported Past Drug Use History: None Reported - Past Family History Father Family Medical History: Myocardial Infarction (UT) Mother Family Medical History: Congestive Heart Failure (CHF), CVA/TIA, Diabetes Mellitus <Lesvia Townsend - Last Filed: 09/06/20 03:06> General Exam <Lesvia Townsend - Last Filed: 09/06/20 03:06> - General Exam Comments Initial Comments: GENERAL: Patient is well-developed and well-nourished. Patient is nontoxic and in no acute distress. HEAD: Atraumatic, normocephalic. EYES: Pupils equal round and reactive to light, extraocular movements intact, sclera anicteric, conjunctiva are normal. Eyelids were unremarkable. ENT: TMs normal, nares patent, oropharynx clear without exudates. Moist mucous membranes. NECK: Normal range of motion, supple without lymphadenopathy or JVD. LUNGS: Unlabored respirations. Decreased sounds throughout. HEART: Tachycardia rate and rhythm without murmurs, rubs or gallops. ABDOMEN: Soft, nontender, normoactive bowel sounds. No guarding, no rebound. No masses appreciated. : Deferred MUSCULOSKELETAL: History of below-knee amputation of the left lower extremity, recent vascular surgery of the right lower extremity. No signs of cellulitis or infection. No pitting or edema. No clubbing or cyanosis. NEUROLOGICAL: Patient is alert and oriented x 3. Motor and sensory are also intact. Cranial nerves II through XII grossly intact. Symmetrical smile. Normal speech. PSYCH: Normal mood, normal affect. SKIN: Warm, Dry, normal turgor, no rashes or lesions noted. (Lesvia Townsend) Course Vital Signs 09/05/20 09/05/20 09/06/20 23:21 23:30 00:00 Temperature 98.2 F Pulse Rate 69 68 Respiratory 24 22 22 Rate Blood Pressure 202/101 190/88 O2 Sat by Pulse 100 95 Oximetry 09/06/20 03:22 Temperature Pulse Rate 70 Respiratory 20 Rate Blood Pressure 168/72 O2 Sat by Pulse 94 L Oximetry Medical Decision Making - Lab Data Result diagrams: 09/05/20 23:41 09/05/20 23:41 <Lesvia Townsend - Last Filed: 09/06/20 03:06> - Lab Data Result diagrams: 09/05/20 23:41 09/05/20 23:41 <Ibrahima Ayala - Last Filed: 09/06/20 03:43> - Medical Decision Making Patient is an 80-year-old female with history of COPD, CHF, vascular disease, presenting with shortness of breath that started this morning. Normally wears only 2 L of O2 at night, had increased to 4 L. She did arrive hypertensive, 4 L 100%. Labs show a normal white count, lactic acid is 2.6, troponin is normal, BNP is 1200. Covid is negative. Chest x-ray shows congestive heart failure with pleural effusions, this is increased compared to her old exam. Patient has remained stable on 3 L at 95%. Breathing treatments and lasik ordered. Patient will be admitted for CHF, COPD exacerbation. Patient accepted by Dr. Quinn, Case discussed with Dr. Ayala. (Lesvia Townsend) I saw this patient in conjunction with the physician dermatology physician assistant. I performed independent history and physical exam. Agree with case management. (Ibrahima Ayala) - Lab Data Lab Results 09/05/20 09/05/20 09/05/20 Range/Units 23:41 23:41 23:41 WBC 6.6 (3.8-10.6) k/uL RBC 3.84 (3.80-5.40) m/uL Hgb 9.8 L (11.4-16.0) gm/dL Hct 33.8 L (34.0-46.0) % MCV 87.9 (80.0-100.0) fL MCH 25.6 (25.0-35.0) pg MCHC 29.1 L (31.0-37.0) g/dL RDW 17.4 H (11.5-15.5) % Plt Count 204 (150-450) k/uL MPV 8.6 Neutrophils % 69 % Lymphocytes % 17 % Monocytes % 8 % Eosinophils % 3 % Basophils % 1 % Neutrophils # 4.6 (1.3-7.7) k/uL Lymphocytes # 1.1 (1.0-4.8) k/uL Monocytes # 0.5 (0-1.0) k/uL Eosinophils # 0.2 (0-0.7) k/uL Basophils # 0.0 (0-0.2) k/uL Hypochromasia Marked Poikilocytosis Slight Anisocytosis Slight PT 13.1 H (9.0-12.0) sec INR 1.3 H (<1.2) APTT 22.0 (22.0-30.0) sec Sodium 140 (137-145) mmol/L Potassium 4.4 (3.5-5.1) mmol/L Chloride 105 (98-107) mmol/L Carbon Dioxide 25 (22-30) mmol/L Anion Gap 10 mmol/L BUN 18 H (7-17) mg/dL Creatinine 0.72 (0.52-1.04) mg/dL Est GFR (CKD-EPI)AfAm >90 (>60 ml/min/1.73 sqM) Est GFR (CKD-EPI)NonAf 80 (>60 ml/min/1.73 sqM) Glucose 203 H (74-99) mg/dL Lactic Ac Sepsis Rflx Plasma Lactic Acid Naveen (0.7-2.0) mmol/L Calcium 8.9 (8.4-10.2) mg/dL Magnesium 1.7 (1.6-2.3) mg/dL Total Bilirubin 0.9 (0.2-1.3) mg/dL AST 32 (14-36) U/L ALT 13 (4-34) U/L Alkaline Phosphatase 128 H (38-126) U/L Troponin I (0.000-0.034) ng/mL NT-Pro-B Natriuret Pep pg/mL Total Protein 7.3 (6.3-8.2) g/dL Albumin 3.9 (3.5-5.0) g/dL Coronavirus (PCR) (Not Detectd) 09/05/20 09/05/20 09/05/20 Range/Units 23:41 23:41 23:41 WBC (3.8-10.6) k/uL RBC (3.80-5.40) m/uL Hgb (11.4-16.0) gm/dL Hct (34.0-46.0) % MCV (80.0-100.0) fL MCH (25.0-35.0) pg MCHC (31.0-37.0) g/dL RDW (11.5-15.5) % Plt Count (150-450) k/uL MPV Neutrophils % % Lymphocytes % % Monocytes % % Eosinophils % % Basophils % % Neutrophils # (1.3-7.7) k/uL Lymphocytes # (1.0-4.8) k/uL Monocytes # (0-1.0) k/uL Eosinophils # (0-0.7) k/uL Basophils # (0-0.2) k/uL Hypochromasia Poikilocytosis Anisocytosis PT (9.0-12.0) sec INR (<1.2) APTT (22.0-30.0) sec Sodium (137-145) mmol/L Potassium (3.5-5.1) mmol/L Chloride (98-107) mmol/L Carbon Dioxide (22-30) mmol/L Anion Gap mmol/L BUN (7-17) mg/dL Creatinine (0.52-1.04) mg/dL Est GFR (CKD-EPI)AfAm (>60 ml/min/1.73 sqM) Est GFR (CKD-EPI)NonAf (>60 ml/min/1.73 sqM) Glucose (74-99) mg/dL Lactic Ac Sepsis Rflx Plasma Lactic Acid Naveen 2.6 H* (0.7-2.0) mmol/L Calcium (8.4-10.2) mg/dL Magnesium (1.6-2.3) mg/dL Total Bilirubin (0.2-1.3) mg/dL AST (14-36) U/L ALT (4-34) U/L Alkaline Phosphatase (38-126) U/L Troponin I <0.012 (0.000-0.034) ng/mL NT-Pro-B Natriuret Pep 1270 pg/mL Total Protein (6.3-8.2) g/dL Albumin (3.5-5.0) g/dL Coronavirus (PCR) (Not Detectd) 09/06/20 09/06/20 Range/Units 00:35 01:06 WBC (3.8-10.6) k/uL RBC (3.80-5.40) m/uL Hgb (11.4-16.0) gm/dL Hct (34.0-46.0) % MCV (80.0-100.0) fL MCH (25.0-35.0) pg MCHC (31.0-37.0) g/dL RDW (11.5-15.5) % Plt Count (150-450) k/uL MPV Neutrophils % % Lymphocytes % % Monocytes % % Eosinophils % % Basophils % % Neutrophils # (1.3-7.7) k/uL Lymphocytes # (1.0-4.8) k/uL Monocytes # (0-1.0) k/uL Eosinophils # (0-0.7) k/uL Basophils # (0-0.2) k/uL Hypochromasia Poikilocytosis Anisocytosis PT (9.0-12.0) sec INR (<1.2) APTT (22.0-30.0) sec Sodium (137-145) mmol/L Potassium (3.5-5.1) mmol/L Chloride (98-107) mmol/L Carbon Dioxide (22-30) mmol/L Anion Gap mmol/L BUN (7-17) mg/dL Creatinine (0.52-1.04) mg/dL Est GFR (CKD-EPI)AfAm (>60 ml/min/1.73 sqM) Est GFR (CKD-EPI)NonAf (>60 ml/min/1.73 sqM) Glucose (74-99) mg/dL Lactic Ac Sepsis Rflx Y Plasma Lactic Acid Naveen (0.7-2.0) mmol/L Calcium (8.4-10.2) mg/dL Magnesium (1.6-2.3) mg/dL Total Bilirubin (0.2-1.3) mg/dL AST (14-36) U/L ALT (4-34) U/L Alkaline Phosphatase (38-126) U/L Troponin I (0.000-0.034) ng/mL NT-Pro-B Natriuret Pep pg/mL Total Protein (6.3-8.2) g/dL Albumin (3.5-5.0) g/dL Coronavirus (PCR) Not Detected (Not Detectd) - EKG Data EKG Comments: A. fib with frequent ventricular paced complexes, ST and T-wave abnormalities, no signs of an acute ischemic process. This is similar to previous EKG on 11/19/2019. Ventricular rate 69, QRS duration 84, QT 344. (Lesvia Townsend) Disposition Is patient prescribed a controlled substance at d/c from ED?: No Decision Date: 09/06/20 Decision Time: 03:03 <Lesvia Townsend - Last Filed: 09/06/20 03:06> <Ibrahima Ayala - Last Filed: 09/06/20 03:43> Clinical Impression: Congestive heart failure, Dyspnea, COPD (chronic obstructive pulmonary disease) Disposition: ADMITTED IP TO THIS HOSP Condition: Stable
[2020-09-06 00:28] LABS: Anisocytosis Slight; Basophils % (A) 1 %; Eosinophils # (A) 0.2 k/uL (0-0.7); Eosinophils % (A) 3 %; HCT 33.8 % (34.0-46.0); HGB 9.8 gm/dL (11.4-16.0); Hypochromasia Marked; Lymphocytes # (A) 1.1 k/uL (1.0-4.8); Lymphocytes % (A) 17 %; MCH 25.6 pg (25.0-35.0); MCHC 29.1 g/dL (31.0-37.0); MCV 87.9 fL (80.0-100.0); Mean Platelet Volume 8.6; Monocytes # (A) 0.5 k/uL (0-1.0); Monocytes % (A) 8 %; Neutrophils # (A) 4.6 k/uL (1.3-7.7); Neutrophils % (A) 69 %; Platelet Count 204 k/uL (150-450); Poikilocytosis Slight; RBC 3.84 m/uL (3.80-5.40); RDW 17.4 % (11.5-15.5); WBC 6.6 k/uL (3.8-10.6)
[2020-09-06 00:49] LABS: INR 1.3 (<1.2); Prothrombin Time 13.1 sec (9.0-12.0)
[2020-09-06 00:58] LABS: ALT 13 U/L (4-34); AST 32 U/L (14-36); African American GFR (CKD) >90 (>60 ml/min/1.73 sqM); Albumin 3.9 g/dL (3.5-5.0); Alkaline Phosphatase 128 U/L (38-126); Anion Gap 10 mmol/L; Blood Urea Nitrogen 18 mg/dL (7-17); Calcium 8.9 mg/dL (8.4-10.2); Carbon Dioxide 25 mmol/L (22-30); Chloride 105 mmol/L (98-107); Glucose 203 mg/dL (74-99); Magnesium 1.7 mg/dL (1.6-2.3); Non-African American GFR(CKD) 80 (>60 ml/min/1.73 sqM); Potassium 4.4 mmol/L (3.5-5.1); Sodium 140 mmol/L (137-145); Total Bilirubin 0.9 mg/dL (0.2-1.3); Total Protein 7.3 g/dL (6.3-8.2)
[2020-09-06] MEDS ORDERED: IPRATROPIUM-ALBUTEROL 3 ML NEB INHALATION PRN (03:02)
[2020-09-06] MEDS ORDERED: FUROSEMIDE 10 MG/ML 4 ML VIAL IV STA (03:02)
[2020-09-06] MEDS ORDERED: ALPRAZolam 0.25 MG TAB PO PRN (04:57)
[2020-09-06] MEDS ORDERED: VANCOMYCIN IV PER PHARMACY 1 EACH MISC MISCELLANE PRN (05:16)
--- NOTE | 2020-09-06 05:16 | P.HPIM ---
History of Present Illness H&P Date: 09/06/20 Chief Complaint: Progressive shortness of breath 80-year-old female with complex past medical history her for arterial disease, coronary artery disease, congestive heart failure, hypertension, COPD, diabetes mellitus Patient comes in due to 1 day history of progressive shortness of breath. She describes some worsening in difficulty in her breathing started all of a sudden in the morning and progressed throughout the day not improving with any inhalers. She denies any chest pain but she has noticed some difficulty with breathing, wheezing, increased swelling of her right lower extremity and increase abdominal girth. She denies any chest pain denies any dizziness or lightheadedness she's been having difficulty with ambulation she uses a walker and wheelchair. Patient denies any abdominal pain nausea or vomiting denies any fevers or chills. She has recently had surgery to her right lower extremity for bypass surgery at [facility] about 2-3 weeks ago and she has recently finished a course of antibiotics. She has an ulcer in her right toes which been surgically wrapped by her doctors she claims that her doctors told her that's been improving After finishing the antibiotics. She claims to be compliant with her medications she denies any active smoking. She describes some pain and stretching and swelling of her right lower extremity. She denies any injury since surgery In the ED workup showed chronic anemia, lactic acid at 2.6, elevated proBNP, chest x-ray showed pleural effusion and pulmonary congestion suggestive of congestive heart failure. Patient is on blood thinner and Plavix, she denies any GI bleeding Review of Systems Pertinent positives as noted in HPI. All other systems were reviewed and are negative Past Medical History Past Medical History: Heart Failure, COPD, Diabetes Mellitus, Diabetes Mellitus, Myocardial Infarction (ID), Myocardial Infarction (ID), Osteoarthritis (OA), Respiratory Disorder, Skin Disorder, Vascular Disorder Additional Past Medical History / Comment(s): Trigeminal Neuralgia, Diabetic Neuropathy, [place] 1994, rosacea, Hypoxic Respiratory Failure; Raynauds; PVD; Anemia, left BKA done in 2019 Last Myocardial Infarction Date:: 1994 History of Any Multi-Drug Resistant Organisms: None Reported Past Surgical History: Appendectomy, Cholecystectomy, Heart Catheterization With Stent, Hysterectomy, Orthopedic Surgery, Pacemaker Additional Past Surgical History / Comment(s): Arthrectomy rt leg, Angioplasty, Pacemaker August 2016, left below the knee amputation, one heart stent Past Anesthesia/Blood Transfusion Reactions: No Reported Reaction Date of Last Stent Placement:: 1994 Type of Cardiac Device: Permanent Pacemaker Device Placement Date:: August 2016 Past Psychological History: No Psychological Hx Reported Smoking Status: Former smoker Past Alcohol Use History: None Reported Past Drug Use History: None Reported - Past Family History Father Family Medical History: Myocardial Infarction (ID) Mother Family Medical History: Congestive Heart Failure (CHF), CVA/TIA, Diabetes Mellitus Medications and Allergies Home Medications Medication Instructions Recorded Confirmed Type Montelukast [Singulair] 10 mg PO HS #30 tab 09/20/16 11/19/19 Rx Cholecalciferol [Vitamin D3 (25 2,000 unit PO DAILY@1700 07/18/17 11/19/19 History Mcg = 1000 Iu)] Cyanocobalamin (Vitamin B-12) 1,000 mcg PO DAILY@1700 07/18/17 11/19/19 History [Vitamin B-12] Losartan [Cozaar] 50 mg PO DAILY 07/18/17 11/19/19 History Acetaminophen [Tylenol Extra 500 mg PO Q6HR PRN 07/20/17 11/19/19 History Strength] Liraglutide [Victoza 2-Orlin] 1.8 mg SQ HS 12/26/18 11/19/19 History Clopidogrel [Plavix] 75 mg PO DAILY 01/10/19 11/19/19 History OXcarbazepine [Trileptal] 300 mg PO BID 01/10/19 11/19/19 History Rosuvastatin [Crestor] 20 mg PO DAILY 01/10/19 11/19/19 History metFORMIN HCL [metFORMIN HCL ER] 750 mg PO BID 02/15/19 11/19/19 History Donepezil [Aricept] 10 mg PO HS 05/19/19 11/19/19 History ALPRAZolam [Xanax] 0.25 mg PO DAILY PRN 06/13/19 11/19/19 History Apixaban [Eliquis] 5 mg PO BID 06/13/19 11/19/19 History Dapagliflozin Propanediol [Farxiga] 5 mg PO DAILY 06/13/19 11/19/19 History Pregabalin [Lyrica] 200 mg PO BID 06/14/19 11/19/19 History Albuterol Inhaler [Ventolin Hfa 2 puff INHALATION RT-QID PRN 11/19/19 11/19/19 History Inhaler] Ipratropium-Albuterol Nebulize 3 ml INHALATION TID ml 11/21/19 Rx [Duoneb 0.5 mg-3 mg/3 ml Soln] predniSONE 0 mg PO DIRECTED #12 tab 11/21/19 Rx Allergies Allergy/AdvReac Type Severity Reaction Status Date / Time codeine AdvReac Nausea & Verified 09/05/20 23:29 Vomiting sitagliptin [From ] AdvReac frequent Verified 09/05/20 23:29 UTI Physical Exam Vitals: Vital Signs Temp Pulse Pulse Resp BP BP Pulse Ox 09/06/20 04:44 97.5 F L 65 15 174/93 92 L 09/06/20 03:22 70 20 168/72 94 L 09/06/20 00:00 68 22 190/88 95 09/05/20 23:30 22 09/05/20 23:21 98.2 F 69 24 202/101 100 Intake and Output 09/05/20 09/05/20 09/06/20 14:59 22:59 06:59 Other: Weight 79.379 kg Constitutional: No acute distress, patient gets short of breath easily when she tries to talk Eyes: Anicteric sclerae, moist conjunctiva, Pupils equal round reactive to light ENMT: NC/AT Oropharynx clear, no erythema, or exudates Neck: Supple, FROM, no masses, or JVD No carotid bruits No thyromegaly Lungs: Decreased breath sounds at bilateral lung basis worse on the right, with left lower lung inspiratory rales Decreased percussion note over right lower lung Normal respiratory effort, no accessory muscle use Cardiovascular: Heart irregular No murmurs, gallops, or rubs Right leg edema Abdominal: Mild distended abdomen, shifting dullness positive Nontender, no guarding, rebound or rigidity Abdomen moving with respiration Normoactive bowel sounds No hepatomegaly, No splenomegaly No palpable mass No abdominal wall hernia noted Skin: Right leg is warm to the touch and erythematous especially around surgical wound of the right leg, and around the lower third of the right leg, tenderness over injury to the areas around surgical wound and over the calf muscle No induration No subcutaneous nodules No rash, lesions Ulcer over the right toes covered with surgical dressing seems clean and intact and dry Extremities: Left BKA No digital cyanosis No clubbing Pedal weak on the right foot, warm to the touch immediate capillary refill Radial pulses intact and symmetrical No calf tenderness Psychiatric: Alert and oriented to person, place and time Appropriate affect fair judgement Neuro Muscles Strength 4/5 in all 4 extremities (left BKA) Sensation to light touch grossly present throughout Cranial nerves II-XII grossly intact No focal sensory deficits Lymphatics: no palpable cervical or supraclavicular , or inguinal lymph nodes Results CBC & Chem 7: 09/05/20 23:41 09/05/20 23:41 Labs: Abnormal Lab Results - Last 24 Hours (Table) 09/05/20 09/05/20 09/05/20 Range/Units 23:41 23:41 23:41 Hgb 9.8 L (11.4-16.0) gm/dL Hct 33.8 L (34.0-46.0) % MCHC 29.1 L (31.0-37.0) g/dL RDW 17.4 H (11.5-15.5) % PT 13.1 H (9.0-12.0) sec INR 1.3 H (<1.2) BUN 18 H (7-17) mg/dL Glucose 203 H (74-99) mg/dL Plasma Lactic Acid Naveen (0.7-2.0) mmol/L Alkaline Phosphatase 128 H (38-126) U/L 09/05/20 09/06/20 Range/Units 23:41 04:13 Hgb (11.4-16.0) gm/dL Hct (34.0-46.0) % MCHC (31.0-37.0) g/dL RDW (11.5-15.5) % PT (9.0-12.0) sec INR (<1.2) BUN (7-17) mg/dL Glucose (74-99) mg/dL Plasma Lactic Acid Naveen 2.6 H* 2.2 H* (0.7-2.0) mmol/L Alkaline Phosphatase (38-126) U/L Assessment and Plan Assessment: Acute systolic CHF exacerbation with pulmonary congestion and pleural effusion Right lower extremity edema rule out cellulitis versus DVT 2-3 weeks status post right lower extremity bypass surgery Right foot diabetic ulcer status post outpatient antibiotic treatment Diabetes mellitus History of CAD Peripheral arterial disease Hypertension COPD Paroxysmal A. fib Plan IV diuresis Resume cardiac meds Monitor hemoglobin and patient denies any bleeding Check d-dimer however of questionable value due to recent surgery Check venous duplex ultrasound of right lower extremity, continue with Eliquis which patient takes for A. fib Vancomycin for possible cellulitis of the right lower extremity Monitor electrolytes and renal function Pain control Insulin sliding scale for diabetes Patient son Plavix and Eliquis, add Protonix for GI prophylaxis DuoNeb's when necessary Cardiology consult CODE STATUS: Full code DVT prophylaxis: On Eliquis Discussed with: Patient, ER, RN Anticipated length of stay more than [address]: Pending clinical course A total of 75 minutes was spent on the care of this complex patient more than 50% of the time was spent in counseling and care coordination.
[2020-09-06] MEDS: VANCOMYCIN 1,500 MG in SODIUM CHLORIDE 0.9% 250 ML IVPB SCH ×2 (06:21→16:45)
[2020-09-06 07:51] LABS: Glucose,Whole Blood 113 mg/dL (75-99)
[2020-09-06] MEDS: INSULIN ASPART (NovoLOG) 100 UNIT/ML VIAL SQ SCH ×4 (07:52→20:46)
[2020-09-06] MEDS: ATORVASTATIN 40 MG TAB PO SCH (08:02)
[2020-09-06] MEDS: PANTOPRAZOLE 40 MG TABLET PO SCH (08:02)
[2020-09-06] MEDS: CLOPIDOGREL 75 MG TAB PO SCH (08:02)
[2020-09-06] MEDS: APIXABAN 5 MG TAB PO SCH ×2 (08:02→22:08)
[2020-09-06] MEDS: PREGABALIN 100 MG CAP PO SCH ×2 (08:02→22:08)
[2020-09-06] MEDS: FUROSEMIDE 10 MG/ML 4 ML VIAL IV SCH ×2 (08:03→22:07)
--- NOTE | 2020-09-06 08:51 | US ---
EXAMINATION TYPE: US abdomen limited DATE OF EXAM: 09/06/2020 COMPARISON: NONE CLINICAL HISTORY: ascitics. Trace amount of free fluid visualized in the RUQ. IMPRESSION: No sizable fluid collection identified. Only a trace amount of fluid is seen in the righ t upper quadrant.
--- NOTE | 2020-09-06 08:53 | US ---
EXAMINATION TYPE: US venous doppler duplex LE RT DATE OF EXAM: 09/06/2020 7:33 AM COMPARISON: NONE CLINICAL HISTORY: Patient is a poor historian. Patient has a history of PVD, states she had a procedu re done at another facility x2 weeks ago where they "cleaned out a vessel" and went through her right groin. Swelling SIDE PERFORMED: Right TECHNIQUE: The lower extremity deep venous system is examined utilizing real time linear array sonog yazan with graded compression, doppler sonography and color-flow sonography. x VESSELS IMAGED: Common Femoral Vein Deep Femoral Vein Femoral Vein Popliteal Vein Small Saphenous Vein * Proximal Calf Veins (* superficial vessels) Right Leg: Appears negative for DVT as visualized Unable to visualize the right GSV. Within the right groin, there is two complex fluid collections, the first measures 1.9 x 1.8 x 5.6 cm . The second is just superior to the MANAGER BASKETBALL and measures 5.1 x 2.7 x 2.8 cm, possible hematomas vs othe r etiology IMPRESSION: 1. No diagnostic evidence of DVT. 2. There are multiple complex fluid collections within the right groin could represent small hematoma . Other etiologies including infectious etiology not excluded correlate clinically.
[2020-09-06] MEDS ORDERED: LOSARTAN 50 MG TAB PO SCH (09:00)
[2020-09-06] MEDS: OXcarbazepine 300 MG TAB PO SCH ×2 (10:57→22:08)
[2020-09-06] MEDS: SPIRONOLACTONE 25 MG TAB PO SCH (11:00)
[2020-09-06] MEDS: hydrALAZINE HCL 25 MG TAB PO SCH ×2 (11:00→22:08)
[2020-09-06 11:29] LABS: Glucose,Whole Blood 182 mg/dL (75-99)
--- NOTE | 2020-09-06 11:47 | P.PN ---
Progress Note - Text Progress Note Date: 09/06/20 Patient seen and examined by me at bedside. Patient states that she still has a short of breath and fatigued. Patient states that her shortness of breath is improving from admission. Patient states that her wound from the vascular surgery in her right lower extremity has been improving. I will consult her primary vascular surgeon. We'll resume with IV vancomycin. We'll send wound cultures. Patient has elevated d-dimer. I suspect this is due to recent surgery as well as from the wound infection in her right lower extremity. Patient has a low well's score.
--- NOTE | 2020-09-06 13:04 | P.GSCN ---
History of Present Illness Consult date: 09/06/20 Reason for Consult: Possible postsurgical infection History of present illness: Us a pleasant 80 white female who presented to the emergency department in the middle of the night or complaints of shortness of breath and difficulty breathing. She has a past medical history significant for peripheral arterial disease status post right lower extremity bypass and left qfbqw-hqi-[id number] amputation, coronary artery disease, congestive heart failure, hypertension, COPD, and diabetes mellitus. She recently underwent bypass of the right lower extremity with Dr. Aguilera 2-3 weeks ago according to the patient at [facility]. She states she did follow-up with him last week. She denies any pain to her right lower extremity. She denies any drainage from her incision sites. She denies any fevers, chills, chest pain, abdominal pain, nausea or vomiting. She states she has home health care coming to the house. He states she did have a short course of antibiotics following her hospitalization. She cannot remember her last dose. She is currently on vancomycin and wound cultures have been sent. Patient has been afebrile. Chest x-ray shows congestive heart failure with pleural effusions. Pleural fluid and congestion increased compared to old exam Abdominal ultrasound shows no sizable fluid collection identified. Only a trace amount of fluid is seen in the right upper quadrant Right venous Doppler study shows within the right groin there is 2 complex fluid collections, the first measures 1.9 x 1.8 x 5.6 cm. The second is just superior to the [employer] and measures 5.1 x 2.7 X 2.8 cm, possible hematoma versus other e tiology. No diagnostic evidence of DVT. Review of Systems A 14 point review of systems was completed all pertinent positives and negatives as stated in the HPI. Past Medical History Past Medical History: Heart Failure, COPD, Diabetes Mellitus, Diabetes Mellitus, Myocardial Infarction (ID), Myocardial Infarction (ID), Osteoarthritis (OA), Respiratory Disorder, Skin Disorder, Vascular Disorder Additional Past Medical History / Comment(s): Trigeminal Neuralgia, Diabetic Neuropathy, ID 1994, rosacea, Hypoxic Respiratory Failure; Raynauds; PVD; Anemia, left BKA done in 2019 Last Myocardial Infarction Date:: 1994 History of Any Multi-Drug Resistant Organisms: None Reported Past Surgical History: Appendectomy, Cholecystectomy, Heart Catheterization With Stent, Hysterectomy, Orthopedic Surgery, Pacemaker Additional Past Surgical History / Comment(s): Arthrectomy rt leg, Angioplasty, Pacemaker August 2016, left below the knee amputation, one heart stent Past Anesthesia/Blood Transfusion Reactions: No Reported Reaction Date of Last Stent Placement:: 1994 Type of Cardiac Device: Permanent Pacemaker Device Placement Date:: August 2016 Past Psychological History: No Psychological Hx Reported Smoking Status: Former smoker Past Alcohol Use History: None Reported Past Drug Use History: None Reported - Past Family History Father Family Medical History: Myocardial Infarction (ID) Mother Family Medical History: Congestive Heart Failure (CHF), CVA/TIA, Diabetes Mellitus Medications and Allergies Home Medications Medication Instructions Recorded Confirmed Type Montelukast [Singulair] 10 mg PO HS #30 tab 09/20/16 09/06/20 Rx Cyanocobalamin (Vitamin B-12) 1,000 mcg PO DAILY 07/18/17 09/06/20 History [Vitamin B-12] Losartan [Cozaar] 50 mg PO DAILY 07/18/17 09/06/20 History OXcarbazepine [Trileptal] 300 mg PO BID 01/10/19 09/06/20 History Rosuvastatin [Crestor] 20 mg PO DAILY 01/10/19 09/06/20 History metFORMIN HCL [metFORMIN HCL ER] 750 mg PO BID 02/15/19 09/06/20 History Apixaban [Eliquis] 5 mg PO BID 06/13/19 09/06/20 History Albuterol Inhaler [Ventolin Hfa 2 puff INHALATION RT-QID PRN 11/19/19 09/06/20 History Inhaler] Donepezil HCl [Aricept] 10 mg PO DAILY 09/06/20 09/06/20 History Fluticasone/Salmeterol [Advair Hfa 1 puff INHALATION RT-BID PRN 09/06/20 09/06/20 History 45-21 Mcg Inhaler] Furosemide [Lasix] 40 mg PO Q48H PRN 09/06/20 09/06/20 History Insulin Glargine,Hum.rec.anlog 2 unit SQ HS 09/06/20 09/06/20 History [Lantus Solostar] Liraglutide [Victoza 3-Orlin] 1.8 mg SQ DAILY 09/06/20 09/06/20 History Multivitamins, Thera [Multivitamin 1 tab PO DAILY 09/06/20 09/06/20 History (formulary)] Muse-3 Fatty Acids/Fish Oil [Fish 1 cap PO DAILY 09/06/20 09/06/20 History Oil 1,000 mg Softgel] Pregabalin [Lyrica] 225 mg PO BID 09/06/20 09/06/20 History Allergies Allergy/AdvReac Type Severity Reaction Status Date / Time codeine AdvReac Nausea & Verified 09/06/20 08:11 Vomiting sitagliptin [From Janumet] AdvReac frequent Verified 09/06/20 08:11 UTI Surgical - Exam Vital Signs Temp Pulse Resp BP Pulse Ox 98.2 F 69 24 202/101 100 09/05/20 23:21 09/05/20 23:21 09/05/20 23:21 09/05/20 23:21 09/05/20 23:21 Results Chest x-ray shows congestive heart failure with pleural effusions. Pleural fluid and congestion increased compared to old exam Abdominal ultrasound shows no sizable fluid collection identified. Only a trace amount of fluid is seen in the right upper quadrant Right venous Doppler study shows within the right groin there is 2 complex fluid collections, the first measures 1.9 x 1.8 x 5.6 cm. The second is just superior to the [employer] and measures 5.1 x 2.7 X 2.8 cm, possible hematoma versus other etiology. No diagnostic evidence of DVT. - Labs 09/05/20 23:41 09/05/20 23:41 Abnormal Lab Results - Last 24 Hours (Table) 09/05/20 09/05/20 09/05/20 Range/Units 23:41 23:41 23:41 Hgb 9.8 L (11.4-16.0) gm/dL Hct 33.8 L (34.0-46.0) % MCHC 29.1 L (31.0-37.0) g/dL RDW 17.4 H (11.5-15.5) % PT 13.1 H (9.0-12.0) sec INR 1.3 H (<1.2) D-Dimer (<0.60) mg/L FEU BUN 18 H (7-17) mg/dL Glucose 203 H (74-99) mg/dL POC Glucose (mg/dL) (75-99) mg/dL Plasma Lactic Acid Naveen (0.7-2.0) mmol/L Alkaline Phosphatase 128 H (38-126) U/L 09/05/20 09/06/20 09/06/20 Range/Units 23:41 04:13 04:13 Hgb (11.4-16.0) gm/dL Hct (34.0-46.0) % MCHC (31.0-37.0) g/dL RDW (11.5-15.5) % PT (9.0-12.0) sec INR (<1.2) D-Dimer 2.55 H (<0.60) mg/L FEU BUN (7-17) mg/dL Glucose (74-99) mg/dL POC Glucose (mg/dL) (75-99) mg/dL Plasma Lactic Acid Naveen 2.6 H* 2.2 H* (0.7-2.0) mmol/L Alkaline Phosphatase (38-126) U/L 09/06/20 Range/Units 07:50 Hgb (11.4-16.0) gm/dL Hct (34.0-46.0) % MCHC (31.0-37.0) g/dL RDW (11.5-15.5) % PT (9.0-12.0) sec INR (<1.2) D-Dimer (<0.60) mg/L FEU BUN (7-17) mg/dL Glucose (74-99) mg/dL POC Glucose (mg/dL) 113 H (75-99) mg/dL Plasma Lactic Acid Naveen (0.7-2.0) mmol/L Alkaline Phosphatase (38-126) U/L Diabetes panel 09/05/20 Range/Units 23:41 Sodium 140 (137-145) mmol/L Potassium 4.4 (3.5-5.1) mmol/L Chloride 105 (98-107) mmol/L Carbon Dioxide 25 (22-30) mmol/L BUN 18 H (7-17) mg/dL Creatinine 0.72 (0.52-1.04) mg/dL Glucose 203 H (74-99) mg/dL Calcium 8.9 (8.4-10.2) mg/dL AST 32 (14-36) U/L ALT 13 (4-34) U/L Alkaline Phosphatase 128 H (38-126) U/L Total Protein 7.3 (6.3-8.2) g/dL Albumin 3.9 (3.5-5.0) g/dL Calcium panel 09/05/20 Range/Units 23:41 Calcium 8.9 (8.4-10.2) mg/dL Albumin 3.9 (3.5-5.0) g/dL Pituitary panel 09/05/20 Range/Units 23:41 Sodium 140 (137-145) mmol/L Potassium 4.4 (3.5-5.1) mmol/L Chloride 105 (98-107) mmol/L Carbon Dioxide 25 (22-30) mmol/L BUN 18 H (7-17) mg/dL Creatinine 0.72 (0.52-1.04) mg/dL Glucose 203 H (74-99) mg/dL Calcium 8.9 (8.4-10.2) mg/dL Adrenal panel 09/05/20 Range/Units 23:41 Sodium 140 (137-145) mmol/L Potassium 4.4 (3.5-5.1) mmol/L Chloride 105 (98-107) mmol/L Carbon Dioxide 25 (22-30) mmol/L BUN 18 H (7-17) mg/dL Creatinine 0.72 (0.52-1.04) mg/dL Glucose 203 H (74-99) mg/dL Calcium 8.9 (8.4-10.2) mg/dL Total Bilirubin 0.9 (0.2-1.3) mg/dL AST 32 (14-36) U/L ALT 13 (4-34) U/L Alkaline Phosphatase 128 H (38-126) U/L Total Protein 7.3 (6.3-8.2) g/dL Albumin 3.9 (3.5-5.0) g/dL Assessment and Plan Assessment: 1. History of peripheral arterial disease, status post recent bypass to right lower extremity 2. History of left below the knee amputation 3. Right foot diabetic ulcer 4. Acute on chronic Congestive heart failure 5. History of coronary artery disease 6. Diabetes mellitus 7. Hypertension 8. Hyperlipidemia Plan: Patient was discussed with Dr. Mathews, abdominal ultrasound, x-ray, and right lower extremity Doppler ultrasound reviewed with Dr. Mathews. Continue vancomycin at this time. Wound cultures collected and sent. Continue medical management. Further recommendations to follow. Thank you for this consultation and allowing us take part in the plan of care of your patient during her hospital stay. The impression and plan of care has been dictated as directed. Dr. Mathews I performed a history and examination of this patient, discussed the same with the dictator. I agree with the dictator's note ,documented as a scribe. Any additional findings or plans will be noted.
--- NOTE | 2020-09-06 13:20 | CONS ---
CONSULTATION DATE OF SERVICE: 09/06/2020 HISTORY OF PRESENT ILLNESS: Mrs. Ortiz is an 80-year-old female with a history of chronic persistent atrial fibrillation, peripheral vascular disease, history of diabetes, hyperlipidemia and hypertension who presented to the emergency room with progressive dyspnea. She carries diagnosis of CHF, has been followed by switch box installer at [facility], has a history of chronic persistent atrial fibrillation, permanent pacemaker implantation. In April 2019, she had mildly impaired left ventricular systolic function with mild to moderate mitral regurgitation. She has sustained a myocardial infarction and stenting about 10 years ago but according to her has done well from that standpoint since. She is status post right amputation about 2 years ago. She has stopped smoking 2-1/2 years ago. She had sudden dyspnea over the weekend that was not getting better with some cough, came into the emergency room and admitted. She had no associated chest pain. She has no dizziness or palpitation. No syncope. No clear PND nor orthopnea. She has not noted any significant worsening edema on the right side. Her coronary risk factors are remarkable for the prior history of smoking. She is a diabetic, hypertensive and hyperlipidemic. MEDICATION: At home included: Insulin, omega-3 fish oil, Victoza, Lasix 40 mg on a p.r.n. basis. Advair, Aricept, Crestor 20 mg daily, Lyrica, metformin 750 mg twice a day, Singulair 10 mg daily, Trileptal, Cozaar 50 mg daily, vitamin B12, Eliquis 5 mg twice a day, and albuterol. REVIEW OF SYSTEMS: RESPIRATORY system: She has history of chronic obstructive lung disease and dyspnea on exertion. GI system: She denies any recent GI bleeding. No peptic ulcer disease. No nausea. No vomiting. system: No dysuria or hematuria. Nervous system: She denies a history of stroke. Of note, the patient has underwent recent revascularization of the right lower extremities. She continues to have an ulceration on her right foot. PHYSICAL EXAMINATION: She is an 80-year-old female, alert, oriented, mildly dyspneic. Blood pressure running in the 160-200 with a heart rate in the 60s. HEAD: Normocephalic. Eyes sclerae anicteric. NECK: Good upstroke. No bruit. LUNGS with decreased breath sounds at both bases. HEART: Irregularly irregular. S1, S2. No S3 with systolic murmur at the base, 1/6. No diastolic murmur. No rub. ABDOMEN: Soft, obese, nontender. EXTREMITIES: Status post left amputation 1+ edema on the right side. Dressing in place. Scar noted. LAB DATA: Lab data revealed a troponin less than 0.012. NT proBNP of 1207. BUN and creatinine of 18 and 0.7, potassium 4.4, hemoglobin 9.8. Her plasma lactic acid was 2.6. Her EKG revealed atrial fibrillation with nonspecific ST-T wave changes. Her chest x- ray shows evidence of congestive heart failure with pleural effusion. She had a duplex scan of the right leg that showed no deep venous thrombosis. IMPRESSION: 1. Progressive dyspnea with findings probably a combination of exacerbation of chronic obstructive pulmonary disease and congestive heart failure. Her NT proBNP is not significantly elevated, but she has mild edema and x-ray consistent with heart failure. 2. History of coronary artery disease status post stenting with no evidence for acute coronary syndrome. 3. Chronic persistent atrial fibrillation with permanent pacemaker implantation, anticoagulated. 4. History of peripheral vascular disease, status post amputation on the left side and status post recent surgery on the right side. 5. History of hypertension. 6. Hyperlipidemia. 7. Diabetes mellitus. RECOMMENDATION: From the cardiac standpoint, we will continue on the anticoagulation and the Plavix. She is on IV Lasix. I will follow her blood pressure and adjust the dose of the losartan. I will repeat her echocardiogram with Doppler to evaluate the left ventricular systolic function. Her ventricular response is on the slower side so we will hold on beta blockers at this time. We will continue on her statin as present and follow her renal function closely. I will add to her regimen spironolactone and depending on her progress, further recommendation will be made. Thank you for this consult. We will follow with you. MMODL / IJN: [id number] / JIMBO
[2020-09-06 13:31] VITALS: BMI 29.1
--- NOTE | 2020-09-06 13:53 | ECHOF ---
Referral Reason:chf MEASUREMENTS -------- HEIGHT: 165.1 cm WEIGHT: 79.4 kg BP: RVIDd: 3.1 cm (< 3.3) IVSd: 1.5 cm (0.6 - 1.1) LVIDd: 3.8 cm (3.9 - 5.3) LVPWd: 1.3 cm (0.6 - 1.1) IVSs: 1.9 cm LVIDs: 2.1 cm LVPWs: 2.0 cm LAESV Index (A-L): 43.32 ml/m Ao Diam: 3.4 cm (2.0 - 3.7) AV Cusp: 1.4 cm (1.5 - 2.6) LA Diam: 3.6 cm (2.7 - 3.8) MV EXCURSION: 16.659 mm (> 18.000) MV EF SLOPE: 133 mm/s (70 - 150) EPSS: 0.6 cm RAP: 5.00 mmHg RVSP: 22.07 mmHg FINDINGS -------- Pacerwire seen in RV and RA. This was a technically adequate study. The left ventricular size is normal. There is moderate concentric left ventricular hypertrophy. O verall left ventricular systolic function is low-normal with, an EF between 50 - 55 %. Left ventric ular fillimg pressure cannot be estimated due to paced rhythm. The right ventricle is normal in size. LA is severely dilated >40 ml/m2 The right atrial size is normal. The aortic valve is trileaflet, and appears structurally normal. No aortic stenosis or regurgitation. The mitral valve is normal. [id number] mitral regurgitation is present. The tricuspid valve appears structurally normal. Mild tricuspid regurgitation present. Right vent ricular systolic pressure is normal at < 35 mmHg. Trace/mild (physiologic) pulmonic regurgitation. The aortic root size is normal. Normal inferior vena cava with normal inspiratory collapse consistent with estimated right atrial pre ssure of 5 mmHg. There is no pericardial effusion. CONCLUSIONS -------- 1. Pacerwire seen in RV and RA. 2. There is moderate concentric left ventricular hypertrophy. 3. Overall left ventricular systolic function is low-normal with, an EF between 50 - 55 %. 4. Left ventricular fillimg pressure cannot be estimated due to paced rhythm. 5. LA is severely dilated >40 ml/m2 6. The aortic valve is trileaflet, and appears structurally normal. No aortic stenosis or regurgitati on. 7. Rfxd-dv-[id number] mitral regurgitation is present. 8. Mild tricuspid regurgitation present. 9. Trace/mild (physiologic) pulmonic regurgitation. 10. There is no pericardial effusion. HOSPITAL WARD CLERK: Michelle Paul RDCS
[2020-09-06 16:34] LABS: Glucose,Whole Blood 171 mg/dL (75-99)
[2020-09-06 20:45] LABS: Glucose,Whole Blood 124 mg/dL (75-99)
[2020-09-06] MEDS: LOSARTAN 50 MG TAB PO SCH (22:08)
[2020-09-06] MEDS: DONEPEZIL 10 MG TAB PO SCH (22:08)
[2020-09-06] MEDS: MONTELUKAST 10 MG TAB PO SCH (22:14)
[2020-09-07] MEDS: VANCOMYCIN 1,500 MG in SODIUM CHLORIDE 0.9% 250 ML IVPB SCH ×2 (05:12→17:36)
[2020-09-07 05:37] LABS: Anisocytosis Slight; Basophils % (A) 0 %; Eosinophils # (A) 0.4 k/uL (0-0.7); Eosinophils % (A) 8 %; HCT 29.3 % (34.0-46.0); HGB 8.9 gm/dL (11.4-16.0); Hypochromasia Marked; Lymphocytes # (A) 0.8 k/uL (1.0-4.8); Lymphocytes % (A) 14 %; MCH 26.2 pg (25.0-35.0); MCHC 30.4 g/dL (31.0-37.0); MCV 86.1 fL (80.0-100.0); Mean Platelet Volume 8.7; Monocytes # (A) 0.4 k/uL (0-1.0); Monocytes % (A) 8 %; Neutrophils # (A) 3.7 k/uL (1.3-7.7); Neutrophils % (A) 67 %; Platelet Count 186 k/uL (150-450); Poikilocytosis Slight; RDW 17.4 % (11.5-15.5); WBC 5.5 k/uL (3.8-10.6)
[2020-09-07 05:56] LABS: African American GFR (CKD) 86 (>60 ml/min/1.73 sqM); Anion Gap 7 mmol/L; Blood Urea Nitrogen 16 mg/dL (7-17); Calcium 8.3 mg/dL (8.4-10.2); Carbon Dioxide 33 mmol/L (22-30); Chloride 101 mmol/L (98-107); Glucose 127 mg/dL (74-99); Magnesium 1.6 mg/dL (1.6-2.3); Non-African American GFR(CKD) 75 (>60 ml/min/1.73 sqM); Potassium 3.2 mmol/L (3.5-5.1); Sodium 141 mmol/L (137-145)
[2020-09-07 06:57] LABS: Glucose,Whole Blood 130 mg/dL (75-99)
[2020-09-07] MEDS: INSULIN ASPART (NovoLOG) 100 UNIT/ML VIAL SQ SCH ×4 (07:52→21:17)
[2020-09-07] MEDS: FUROSEMIDE 10 MG/ML 4 ML VIAL IV SCH ×2 (08:02→21:17)
[2020-09-07] MEDS: hydrALAZINE HCL 25 MG TAB PO SCH ×2 (08:02→21:17)
[2020-09-07] MEDS: ATORVASTATIN 40 MG TAB PO SCH (08:02)
[2020-09-07] MEDS: CLOPIDOGREL 75 MG TAB PO SCH (08:03)
[2020-09-07] MEDS: PANTOPRAZOLE 40 MG TABLET PO SCH (08:03)
[2020-09-07] MEDS: APIXABAN 5 MG TAB PO SCH ×2 (08:03→21:17)
[2020-09-07] MEDS: LOSARTAN 50 MG TAB PO SCH ×2 (08:03→21:17)
[2020-09-07] MEDS: PREGABALIN 100 MG CAP PO SCH ×2 (08:03→21:17)
[2020-09-07] MEDS: SPIRONOLACTONE 25 MG TAB PO SCH (08:03)
[2020-09-07] MEDS ORDERED: MAGNESIUM OXIDE 400 MG TAB PO SCH (09:30)
[2020-09-07] MEDS: MAGNESIUM SULFATE-D5W PMX 1 GM in DEXTROSE/WATER 1 100ML.BAG IVPB SCH ×2 (09:48→11:58)
[2020-09-07] MEDS: POTASSIUM CHLORIDE ER 20 MEQ TAB.ER PO SCH ×2 (09:48→11:58)
[2020-09-07] MEDS ORDERED: PIPERACILLIN-TAZOBACTAM 3.375 GM in SODIUM CHLORIDE 0.9% 100 ML IVPB SCH (10:00)
--- NOTE | 2020-09-07 10:38 | P.PN ---
Subjective Progress Note Date: 09/07/20 HISTORY OF PRESENT ILLNESS: This is an 80-year-old female with a history of chronic atrial fibrillation, peripheral vascular disease with left lower extremity amputation, congestive h eart failure, and permanent pacemaker implantation, diabetes, hyperlipidemia, and hypertension who presented to the emergency room with progressive dyspnea. Patient follows with a alteration worker at [facility]. Patient examined this morning the bedside. Patient states she is tired this morning as she woke up in the low night was unable to get back to sleep. She denies chest pain or pressure. She denies shortness of breath. She remains on nasal cannula with oxygen saturations greater than 92%. Patient remains on IV Lasix. Blood pressure improved with a recent reading of 136/76. Heart rate is in the 70s. Echocardiogram completed revealed ejection fraction 50-55%, [id number] mitral regurgitation, and mild tricuspid regurgitation PHYSICAL EXAM: VITAL SIGNS: Reviewed. GENERAL: Well-developed in no acute distress. NECK: Supple. No JVD or thyromegaly LUNGS: Respirations even and unlabored. Lungs diminished bilaterally. HEART: Irregular rate and rhythm. S1 and S2 heard. Systolic murmur noted EXTREMITIES: Normal range of motion. No clubbing or cyanosis. Peripheral pulses intact. Left below the knee amputation. Right lower extremity with +1 edema and large scar noted. ASSESSMENT: Progressive dyspnea, likely combination of exacerbation of COPD and diastolic heart failure History of coronary artery disease with previous stenting Chronic persistent atrial fibrillation, on anticoagulation with Eliquis History of permanent pacemaker insertion Hypertension Hyperlipidemia Diabetes mellitus Peripheral vascular disease with recent surgery on right lower extremity and history of left [id number] amputation Hypokalemia PLAN: Continue current cardiac medications Continue Eliquis Continue to monitor blood pressure May continue IV lasix for additional 24 hours and anticipate transition to oral dosing tomorrow Replace potassium and magnesium Further recommendations pending patient course Nurse practitioner note has been reviewed by physician. Signing provider agrees with the documented findings, assessment, and plan of care. Objective - Vital Signs Vital signs: Vital Signs Temp 98.1 F 09/07/20 08:00 Pulse 69 09/07/20 08:00 Resp 18 09/07/20 08:00 BP 136/76 09/07/20 08:00 Pulse Ox 93 L 09/07/20 08:00 Intake & Output 09/06/20 09/07/20 09/07/20 18:59 06:59 18:59 Intake Total 850 Output Total 2700 1350 Balance -2700 -500 Weight 79.379 kg Intake: Intake, IV Titration 250 Amount Vancomycin 1,500 mg In 250 Sodium Chloride 0.9% 250 ml @ 125 mls/hr IVPB Q12H [facility] Rx#:[id number] Oral 600 Output: Urine 2700 1350 Other: Voiding Method External Catheter External Catheter External Catheter # Voids 3 - Labs CBC & Chem 7: 09/07/20 04:45 09/07/20 04:45 Labs: Abnormal Lab Results - Last 24 Hours (Table) 09/06/20 09/06/20 09/06/20 Range/Units 11:28 16:33 20:44 RBC (3.80-5.40) m/uL Hgb (11.4-16.0) gm/dL Hct (34.0-46.0) % MCHC (31.0-37.0) g/dL RDW (11.5-15.5) % Lymphocytes # (1.0-4.8) k/uL Potassium (3.5-5.1) mmol/L Carbon Dioxide (22-30) mmol/L Glucose (74-99) mg/dL POC Glucose (mg/dL) 182 H 171 H 124 H (75-99) mg/dL Calcium (8.4-10.2) mg/dL 09/07/20 09/07/20 09/07/20 Range/Units 04:45 04:45 06:56 RBC 3.40 L (3.80-5.40) m/uL Hgb 8.9 L (11.4-16.0) gm/dL Hct 29.3 L (34.0-46.0) % MCHC 30.4 L (31.0-37.0) g/dL RDW 17.4 H (11.5-15.5) % Lymphocytes # 0.8 L (1.0-4.8) k/uL Potassium 3.2 L (3.5-5.1) mmol/L Carbon Dioxide 33 H (22-30) mmol/L Glucose 127 H (74-99) mg/dL POC Glucose (mg/dL) 130 H (75-99) mg/dL Calcium 8.3 L (8.4-10.2) mg/dL Microbiology - Last 24 Hours (Table) 09/06/20 09:30 Gram Stain - Preliminary Incision Wound Culture - Preliminary 09/06/20 09:30 Anaerobic Culture - Preliminary Incision
[2020-09-07 11:27] LABS: Glucose,Whole Blood 189 mg/dL (75-99)
--- NOTE | 2020-09-07 12:27 | P.PN ---
Subjective Progress Note Date: 09/07/20 Principal diagnosis: Patient recent bypass right lower extremity, questionable infection She is seen and examined up in the bedside chair. She states her breathing has improved, she denies any chest pain. She denies any fevers through the night. She denies any drainage from her right lower extremity. She still is still has some discomfort in the right lower extremity but is post recent right lower extremity bypass surgery. Preliminary wound culture is showing tello positive bacilli. His been afebrile, WBC is 5.5. Objective - Vital Signs Vital signs: Vital Signs Temp 98.1 F 09/07/20 08:00 Pulse 69 09/07/20 08:00 Resp 18 09/07/20 08:00 BP 136/76 09/07/20 08:00 Pulse Ox 93 L 09/07/20 08:00 Intake & Output 09/06/20 09/07/20 09/07/20 18:59 06:59 18:59 Intake Total 850 Output Total 2700 1350 Balance -2700 -500 Weight 79.379 kg Intake: Intake, IV Titration 250 Amount Vancomycin 1,500 mg In 250 Sodium Chloride 0.9% 250 ml @ 125 mls/hr IVPB Q12H [facility] Rx#:[id number] Oral 600 Output: Urine 2700 1350 Other: Voiding Method External Catheter External Catheter External Catheter # Voids 3 - Exam General appearance: The patient is alert, oriented, in no acute distress. HET: Head is normocephalic and atraumatic. Neck: Supple without lymphadenopathy. Trachea midline. Extremities: Left BKA stump. Right lower extremity with +1 edema. Right lower extremity with incision at groin that is well approximated, incision on lower leg is well approximated with 1 small area that has clear drainage, some mild surrounding erythema, with erythema to the distal aspect of the right marshall. Foot with dressing that is clean dry and intact. Tenderness along the incision lines. Neurological: No focal deficits. Strength and sensation are grossly intact. - Labs CBC & Chem 7: 09/07/20 04:45 09/07/20 04:45 Labs: Abnormal Lab Results - Last 24 Hours (Table) 09/06/20 09/06/20 09/06/20 Range/Units 11:28 16:33 20:44 RBC (3.80-5.40) m/uL Hgb (11.4-16.0) gm/dL Hct (34.0-46.0) % MCHC (31.0-37.0) g/dL RDW (11.5-15.5) % Lymphocytes # (1.0-4.8) k/uL Potassium (3.5-5.1) mmol/L Carbon Dioxide (22-30) mmol/L Glucose (74-99) mg/dL POC Glucose (mg/dL) 182 H 171 H 124 H (75-99) mg/dL Calcium (8.4-10.2) mg/dL 09/07/20 09/07/20 09/07/20 Range/Units 04:45 04:45 06:56 RBC 3.40 L (3.80-5.40) m/uL Hgb 8.9 L (11.4-16.0) gm/dL Hct 29.3 L (34.0-46.0) % MCHC 30.4 L (31.0-37.0) g/dL RDW 17.4 H (11.5-15.5) % Lymphocytes # 0.8 L (1.0-4.8) k/uL Potassium 3.2 L (3.5-5.1) mmol/L Carbon Dioxide 33 H (22-30) mmol/L Glucose 127 H (74-99) mg/dL POC Glucose (mg/dL) 130 H (75-99) mg/dL Calcium 8.3 L (8.4-10.2) mg/dL Microbiology - Last 24 Hours (Table) 09/06/20 09:30 Gram Stain - Preliminary Incision Wound Culture - Preliminary 09/06/20 09:30 Anaerobic Culture - Preliminary Incision Assessment and Plan Assessment: 1. History of peripheral arterial disease, status post recent fem-tib bypass to right lower extremity 2. History of left below the knee amputation 3. Right foot diabetic ulcer 4. Acute on chronic Congestive heart failure 5. History of coronary artery disease 6. Diabetes mellitus 7. Hypertension 8. Hyperlipidemia Plan: 1. Wound cultures pending 2. Continue vancomycin as ordered 3. Overall incision looks well, with mild erythema from healing. No concern at this time for infectious etiology. 4. Dr. Aguilera reviewed ultrasound 5. Continue medical management 6. There is no indication for any vascular surgical intervention at this time Thank you for this consultation, we will continue to follow The impression and plan of care has been dictated as directed. I performed a history and examination of this patient, discussed the same with the dictator. I agree with the dictator's note ,documented as a scribe. Any additional findings or plans will be noted.
--- NOTE | 2020-09-07 12:45 | P.PN ---
Subjective Progress Note Date: 09/07/20 Principal diagnosis: CC: shorteness of breath Patient says that her shortness of breath is improving. She is currently on 2 L nasal cannula and is satting well. Patient states that she does not wear oxygen at home. She states that she does have a history of COPD and quit smoking about 3 years ago. Patient states that she gets on and off wheezing. Objective - Vital Signs Vital signs: Vital Signs Temp 98.1 F 09/07/20 08:00 Pulse 69 09/07/20 08:00 Resp 18 09/07/20 08:00 BP 136/76 09/07/20 08:00 Pulse Ox 93 L 09/07/20 08:00 Intake & Output 09/06/20 09/07/20 09/07/20 18:59 06:59 18:59 Intake Total 850 Output Total 2700 1350 Balance -2700 -500 Weight 79.379 kg Intake: Intake, IV Titration 250 Amount Vancomycin 1,500 mg In 250 Sodium Chloride 0.9% 250 ml @ 125 mls/hr IVPB Q12H COUNTS INCLUDE 234 BEDS AT THE [facility] Rx#:[id number] Oral 600 Output: Urine 2700 1350 Other: Voiding Method External Catheter External Catheter External Catheter # Voids 3 - Exam General examination - Alert and Oriented 3 in NAD, appears chronically debilitated Heart - + S1S2 no murmurs Lungs - diminished breath sounds bilaterally Abdomen soft NT ND +ve BS Extremities - right lower extremity with surgical incision with mild surrounding erythema and drainage, there is no erythema or induration in the right groin area, +1 bilateral pitting edema 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0) gm/dL Hct (34.0-46.0) % MCHC (31.0-37.0) g/dL RDW (11.5-15.5) % Lymphocytes # (1.0-4.8) k/uL Potassium 3.2 L (3.5-5.1) mmol/L Carbon Dioxide 33 H (22-30) mmol/L Glucose 127 H (74-99) mg/dL POC Glucose (mg/dL) 130 H 189 H (75-99) mg/dL Calcium 8.3 L (8.4-10.2) mg/dL Microbiology - Last 24 Hours (Table) 09/06/20 09:30 Gram Stain - Preliminary Incision Wound Culture - Preliminary 09/06/20 09:30 Anaerobic Culture - Preliminary Incision Assessment and Plan Assessment: #Acute on chronic diastolic heart failure -Resume IV Lasix as per cardiology. Per cardiology likely transition to oral Lasix tomorrow -Cardiology started patient on spironolactone -Keep magnesium above 2 and potassium above 4 -Echocardiogram showed EF of 50-55% -Patient currently on 2 L nasal cannula. Titrate oxygen as tolerated #Right lower extremity cellulitis around surgical incision from recent bypass surgery -Right lower extremity ultrasound shows no DVT however there are complex fluid collections in the right groin area that is concerning for hematoma versus abs cess -Vascular surgery on board -Wound cultures are growing many gram-positive bacilli. Follow up wound cultures until finalized -Resume IV vancomycin and cefepime and Flagyl #COPD exacerbation -Resume DuoNeb scheduled and when necessary -We'll start patient on IV Solu-Medrol 40 mg every 8 #Right foot diabetic ulcer -Patient scheduled to follow-up with wound care outpatient #Elevated d-dimer -Likely due to the cellulitis and recent surgery. Patient is well score is low and she is already on anticoagulation so doubt DVT/PE #Diabetes mellitus -Resume sliding scale insulin #Coronary artery disease/peripheral arterial disease -Resume Plavix and statin #Hypertension -Resume home meds -Controlled Disposition: Anticipate patient be ready for discharge in the next 24-48 hours. Awaiting for cardiology to switch patient to oral diuretics. Awaiting for further recommendations from vascular surgery. Wound cultures are pending. CODE STATUS:full code DVT prophylaxis: Yakov Anticipated length of stay < than [address]: PT consult pending
[2020-09-07] MEDS: methylPREDNISolone SOD SUCCI 40 MG/ML 1 ML VIAL IV SCH ×2 (16:16→23:26)
[2020-09-07] MEDS: metroNIDAZOLE-NS PMX 500 MG in SALINE 1 100ML.BAG IVPB SCH ×2 (16:16→23:26)
[2020-09-07 16:28] LABS: Glucose,Whole Blood 191 mg/dL (75-99)
[2020-09-07] MEDS: IPRATROPIUM-ALBUTEROL 3 ML NEB INHALATION SCH ×2 (16:38→20:41)
[2020-09-07] MEDS: ACETAMINOPHEN TAB 500 MG TAB PO PRN (18:44)
[2020-09-07 20:22] LABS: Glucose,Whole Blood 293 mg/dL (75-99)
[2020-09-07] MEDS: MONTELUKAST 10 MG TAB PO SCH (21:16)
[2020-09-07] MEDS: DONEPEZIL 10 MG TAB PO SCH (21:17)
[2020-09-07] MEDS: OXcarbazepine 300 MG TAB PO SCH (21:17)
[2020-09-07] MEDS: CEFEPIME 1 GM in SODIUM CHLORIDE 0.9% 50 ML IVPB SCH (21:17)
[2020-09-08] MEDS ORDERED: VANCOMYCIN TROUGH DUE 1 EACH MISC MISCELLANE ONE (05:00)
[2020-09-08 05:47] LABS: Anisocytosis Slight; Basophils % (A) 0 %; Eosinophils % (A) 0 %; HCT 30.5 % (34.0-46.0); HGB 9.3 gm/dL (11.4-16.0); Hypochromasia Marked; Lymphocytes # (A) 0.5 k/uL (1.0-4.8); Lymphocytes % (A) 12 %; MCH 26.4 pg (25.0-35.0); MCHC 30.5 g/dL (31.0-37.0); MCV 86.7 fL (80.0-100.0); Monocytes # (A) 0.2 k/uL (0-1.0); Monocytes % (A) 4 %; Neutrophils # (A) 3.1 k/uL (1.3-7.7); Neutrophils % (A) 82 %; Platelet Count 195 k/uL (150-450); Poikilocytosis Slight; RBC 3.51 m/uL (3.80-5.40); RDW 17.4 % (11.5-15.5); WBC 3.8 k/uL (3.8-10.6)
[2020-09-08] MEDS: VANCOMYCIN 1,500 MG in SODIUM CHLORIDE 0.9% 250 ML IVPB SCH ×2 (06:15→17:10)
[2020-09-08 07:02] LABS: African American GFR (CKD) 86 (>60 ml/min/1.73 sqM); Anion Gap 6 mmol/L; Blood Urea Nitrogen 21 mg/dL (7-17); Calcium 8.4 mg/dL (8.4-10.2); Carbon Dioxide 31 mmol/L (22-30); Chloride 104 mmol/L (98-107); Glucose 305 mg/dL (74-99); Magnesium 2.1 mg/dL (1.6-2.3); Non-African American GFR(CKD) 75 (>60 ml/min/1.73 sqM); Potassium 4.3 mmol/L (3.5-5.1); Sodium 141 mmol/L (137-145)
[2020-09-08 07:09] LABS: Glucose,Whole Blood 301 mg/dL (75-99)
[2020-09-08] MEDS: hydrALAZINE HCL 25 MG TAB PO SCH ×3 (07:19→21:54)
[2020-09-08] MEDS: PREGABALIN 100 MG CAP PO SCH ×2 (07:19→21:54)
[2020-09-08] MEDS: APIXABAN 5 MG TAB PO SCH ×2 (07:19→21:54)
[2020-09-08] MEDS: PANTOPRAZOLE 40 MG TABLET PO SCH (07:19)
[2020-09-08] MEDS: methylPREDNISolone SOD SUCCI 40 MG/ML 1 ML VIAL IV SCH (07:20)
[2020-09-08] MEDS: FUROSEMIDE 10 MG/ML 4 ML VIAL IV SCH (07:20)
[2020-09-08] MEDS: LOSARTAN 50 MG TAB PO SCH ×2 (07:20→21:54)
[2020-09-08] MEDS: ATORVASTATIN 40 MG TAB PO SCH (07:20)
[2020-09-08] MEDS: SPIRONOLACTONE 25 MG TAB PO SCH (07:20)
[2020-09-08] MEDS: CLOPIDOGREL 75 MG TAB PO SCH (07:20)
[2020-09-08] MEDS: INSULIN ASPART (NovoLOG) 100 UNIT/ML VIAL SQ SCH ×4 (07:21→21:54)
[2020-09-08] MEDS: OXcarbazepine 300 MG TAB PO SCH ×2 (07:22→21:54)
[2020-09-08] MEDS: metroNIDAZOLE-NS PMX 500 MG in SALINE 1 100ML.BAG IVPB SCH ×2 (09:19→15:29)
[2020-09-08] MEDS: IPRATROPIUM-ALBUTEROL 3 ML NEB INHALATION SCH ×3 (09:37→22:05)
[2020-09-08] MEDS: CEFEPIME 1 GM in SODIUM CHLORIDE 0.9% 50 ML IVPB SCH ×2 (10:34→21:54)
--- NOTE | 2020-09-08 10:41 | P.PN ---
Subjective Progress Note Date: 09/08/20 HISTORY OF PRESENT ILLNESS: This is an 80-year-old female with a history of chronic atrial fibrillation, peripheral vascular disease with left lower extremity amputation, congestive h eart failure, and permanent pacemaker implantation, diabetes, hyperlipidemia, and hypertension who presented to the emergency room with progressive dyspnea. Patient follows with a secondary connector armature at [facility]. Patient examined this morning the bedside. Patient states she is tired this morning as she woke up in the low night was unable to get back to sleep. She denies chest pain or pressure. She denies shortness of breath. She remains on nasal cannula with oxygen saturations greater than 92%. Patient remains on IV Lasix. Blood pressure improved with a recent reading of 136/76. Heart rate is in the 70s. Echocardiogram completed revealed ejection fraction 50-55%, [id number] mitral regurgitation, and mild tricuspid regurgitation 09/08/2020 Patient examined this morning at bedside. Patient denies shortness of breath. She denies chest pain or pressure. Patient reports she slept well overnight. Blood pressure this morning 186/82. PHYSICAL EXAM: VITAL SIGNS: Reviewed. GENERAL: Well-developed in no acute distress. NECK: Supple. No JVD or thyromegaly LUNGS: Respirations even and unlabored. Lungs diminished bilaterally. HEART: Irregular rate and rhythm. S1 and S2 heard. Systolic murmur noted EXTREMITIES: Normal range of motion. No clubbing or cyanosis. Peripheral pulses intact. Left below the knee amputation. Right lower extremity with +1 edema and large scar noted. ASSESSMENT: Progressive dyspnea, likely combination of exacerbation of COPD and diastolic heart failure History of coronary artery disease with previous stenting Chronic persistent atrial fibrillation, on anticoagulation with Eliquis History of permanent pacemaker insertion Hypertension Hyperlipidemia Diabetes mellitus Peripheral vascular disease with recent surgery on right lower extremity and history of left [id number] amputation Hypokalemia PLAN: Continue current cardiac medications Continue Eliquis Continue to monitor blood pressure Increase hydralazine to 50 mg 3 times a day for optimal blood pressure control. Further BP management per internal medicine. Discontinue IV Lasix. Begin oral Lasix 40 mg daily No further inpatient recommendations from a cardiac standpoint We will sign off. Please reconsult if needed. Nurse practitioner note has been reviewed by physician. Signing provider agrees with the documented findings, assessment, and plan of care. Objective - Vital Signs Vital signs: Vital Signs Temp 98.4 F 09/08/20 08:00 Pulse 66 09/08/20 08:00 Resp 16 09/08/20 08:00 BP 186/82 09/08/20 08:00 Pulse Ox 96 09/08/20 08:00 Intake & Output 09/07/20 09/08/20 09/08/20 18:59 06:59 18:59 Intake Total 1680 Output Total 200 1100 Balance 1480 -1100 Intake: Oral 1680 Output: Urine 200 1100 Other: Voiding Method External Catheter External Catheter External Catheter # Voids 2 - Labs CBC & Chem 7: 09/08/20 05:13 09/08/20 05:13 Labs: Abnormal Lab Results - Last 24 Hours (Table) 09/07/20 09/07/20 09/07/20 Range/Units 11:25 16:27 20:21 RBC (3.80-5.40) m/uL Hgb (11.4-16.0) gm/dL Hct (34.0-46.0) % MCHC (31.0-37.0) g/dL RDW (11.5-15.5) % Lymphocytes # (1.0-4.8) k/uL Carbon Dioxide (22-30) mmol/L BUN (7-17) mg/dL Glucose (74-99) mg/dL POC Glucose (mg/dL) 189 H 191 H 293 H (75-99) mg/dL 09/08/20 09/08/20 09/08/20 Range/Units 05:13 05:13 07:07 RBC 3.51 L (3.80-5.40) m/uL Hgb 9.3 L (11.4-16.0) gm/dL Hct 30.5 L (34.0-46.0) % MCHC 30.5 L (31.0-37.0) g/dL RDW 17.4 H (11.5-15.5) % Lymphocytes # 0.5 L (1.0-4.8) k/uL Carbon Dioxide 31 H (22-30) mmol/L BUN 21 H (7-17) mg/dL Glucose 305 H (74-99) mg/dL POC Glucose (mg/dL) 301 H (75-99) mg/dL Microbiology - Last 24 Hours (Table) 09/06/20 09:30 Gram Stain - Preliminary Incision Wound Culture - Preliminary
--- NOTE | 2020-09-08 11:10 | P.PN ---
Subjective Progress Note Date: 09/08/20 Principal diagnosis: Patient recent bypass right lower extremity, questionable infection Patient is seen and examined lying in bed. She denies any acute changes through the night. She has been afebrile, white blood count has been normal. She denies any pain in her right lower extremity. Denies any fevers or chills, chest pain, abdominal pain, nausea or vomiting. She does still have some shortness of breath. The preliminary wound culture came back as gram-positive bacilli primary medicine started patient on cefepime and Flagyl, and continue on vancomycin. Objective - Vital Signs Vital signs: Vital Signs Temp 98.4 F 09/08/20 08:00 Pulse 66 09/08/20 08:00 Resp 16 09/08/20 08:00 BP 186/82 09/08/20 08:00 Pulse Ox 96 09/08/20 08:00 Intake & Output 09/07/20 09/08/20 09/08/20 18:59 06:59 18:59 Intake Total 1680 Output Total 200 1100 Balance 1480 -1100 Intake: Oral 1680 Output: Urine 200 1100 Other: Voiding Method External Catheter External Catheter External Catheter # Voids 2 - Exam General appearance: The patient is alert, oriented, in no acute distress. HET: Head is normocephalic and atraumatic. Neck: Supple without lymphadenopathy. Trachea midline. Extremities: Left BKA stump. Right lower extremity with +1 edema. Right lower extremity with incision at groin that is well approximated, incision on lower leg is well approximated with 1 small area that has an amount clear/white drainage, some mild surrounding erythema, with erythema to the distal aspect of the right marshall. Foot with dressing that is clean dry and intact. Nontender. Neurological: No focal deficits. Strength and sensation are grossly intact. - Labs CBC & Chem 7: 09/08/20 05:13 09/08/20 05:13 Labs: Abnormal Lab Results - Last 24 Hours (Table) 09/07/20 09/07/20 09/07/20 Range/Units 11:25 16:27 20:21 RBC (3.80-5.40) m/uL Hgb (11.4-16.0) gm/dL Hct (34.0-46.0) % MCHC (31.0-37.0) g/dL RDW (11.5-15.5) % Lymphocytes # (1.0-4.8) k/uL Carbon Dioxide (22-30) mmol/L BUN (7-17) mg/dL Glucose (74-99) mg/dL POC Glucose (mg/dL) 189 H 191 H 293 H (75-99) mg/dL 09/08/20 09/08/20 09/08/20 Range/Units 05:13 05:13 07:07 RBC 3.51 L (3.80-5.40) m/uL Hgb 9.3 L (11.4-16.0) gm/dL Hct 30.5 L (34.0-46.0) % MCHC 30.5 L (31.0-37.0) g/dL RDW 17.4 H (11.5-15.5) % Lymphocytes # 0.5 L (1.0-4.8) k/uL Carbon Dioxide 31 H (22-30) mmol/L BUN 21 H (7-17) mg/dL Glucose 305 H (74-99) mg/dL POC Glucose (mg/dL) 301 H (75-99) mg/dL Microbiology - Last 24 Hours (Table) 09/06/20 09:30 Gram Stain - Preliminary Incision Wound Culture - Preliminary Assessment and Plan Assessment: 1. History of peripheral arterial disease, status post recent fem-tib bypass to right lower extremity 2. History of left below the knee amputation 3. Right foot diabetic ulcer 4. Acute on chronic Congestive heart failure 5. History of coronary artery disease 6. Diabetes mellitus 7. Hypertension 8. Hyperlipidemia Plan: 1. Preliminary culture showing gram-positive bacilli, Diphtheroid species 2. Continue antibiotics as ordered per primary medicine team, will consult infectious disease for further antibiotic recommendations 3. Lower extremity Doppler ultrasound reviewed 4. There is no indication for any vascular surgical intervention at this time 5. Continue with medical management 6. Patient to follow-up with Dr. Aguilera as scheduled Thank you for this consultation, we will continue to follow The impression and plan of care has been dictated as directed. Dr. Mathews I performed a history and examination of this patient, discussed the same with the dictator. I agree with the dictator's note ,documented as a scribe. Any additional findings or plans will be noted.
[2020-09-08 11:38] LABS: Glucose,Whole Blood 387 mg/dL (75-99)
[2020-09-08] MEDS ORDERED: INSULIN ASPART (NovoLOG) 100 UNIT/ML VIAL SQ ONE (12:02)
--- NOTE | 2020-09-08 12:31 | P.PN ---
<Anson Bassett - Last Filed: 09/08/20 11:57> Subjective Progress Note Date: 09/08/20 Hospital course: Patient is a pleasant 80-year-old female with a past medical history is CAD, c hronic diastolic heart failure with a preserved EF 55-60%, hypertension, hyperlipidemia, atrial fibrillation on anticoagulation with Eliquis, and insulin-dependent diabetes mellitus type 2. The patient presented to the hospital on 09/06/20 with a chief complaint of shortness of breath. she is found to have an elevated proBNP of 1270 and a chest x-ray confirming congestive heart failure with bilateral pleural effusions. Patient admitted under our services for acute onchronic diastolic heart failure, COPD exacerbation, in right lower extremity cellulitis status post recent bypass surgery with consultation to cardiology and vascular surgery for continued close medical management. Patient underwent diuresis with Lasix. Had an echocardiogram completed revealing a preserved ejection fraction of 50-55%. Venous Doppler right lower extremity was negative for DVT. Physical exam: General: non toxic, no distress, appears at stated age Derm: warm, dry Head: atraumatic, normocephalic, symmetric Eyes: EOMI, no lid lag, anicteric sclera Mouth: no lip lesion, mucus membranes moist Cardiovascular: S1S2 reg, no murmur, gallop, or rub. Cap refill less than 2 seconds. Lungs: CTA bilateral, no rhonchi, no rales , no accessory muscle use Abdominal: soft, nontender to palpation, no guarding, no appreciable organomegaly Ext: Left BKA and right lower extremity with swelling (1+ pitting edema) and scarring from recent right lower extremity bypass graft. Dressing to right lower extremity, clean dry and intact. Neuro: CN II-XI grossly intact, no focal neuro deficits Psych: Alert, oriented, appropriate affect Plan of care: Acute on chronic diastolic heart failure -proBNP of 1270. -Chest x-ray confirming congestive heart failure with bilateral pleural effusions. -echocardiogram completed revealing a preserved ejection fraction of 50-55%. -Cardiology following. -Monitor intake and output, patient has had 1300 mL output over the past 24 hours. -Daily weights. -Telemetry monitoring -IV Lasix discontinued. Patient started on oral Lasix 40 mg daily. Right lower extremity cellulitis around surgical incision from recent bypass surgery -Right lower extremity ultrasound negative for DVT, however complex fluid collections and recurring concerning for hematoma versus abscess. -Vascular surgery following, recommending no need for vascular surgical intervention at this time and for patient to continue to follow up outpatient with Dr. Aguilera. -Wound cultures obtained pending results, continue vancomycin and cefepime pend ing culture and sensitivity results. Acute on chronic COPD exacerbation -Continue DuoNebs scheduled and as needed for shortness of breath and/or wheezing. -Discontinue IV Solu-Medrol and place patient on prednisone 40 mg daily. -Encourage incentive spirometry. Hypertension -Cardiology increased hydralazine to 50 mg 3 times daily for optimal blood pressure control. -monitor vital signs closely and continue daily medication management. Hyperlipidemia -Continue daily medication management. -Heart healthy carb consistent diet. Insulin-dependent diabetes mellitus type 2 with hyperglycemia -Levemir increased to 10 units nightly continue with glycemic protocol with NovoLog sliding scale. -Hyperglycemia likely secondary to use of steroids, Solu-Medrol discontinued and patient placed on prednisone 40 mg daily, will taper. Right foot diabetic ulcer -Patient to continue to follow-up with wound care outpatient. Atrial fibrillation on anticoagulation with Eliquis -Continue anticoagulation with Eliquis. CODE STATUS: Full code DVT prophylaxis: Eliquis Discussed with: Patient and RN Anticipated discharge date: clinical course to determine, likely discharge home tomorrow morning. Anticipated discharge place: Home with homecare A total of 45 minutes was spent on the care of this complex patient more than 50% of the time was spent in counseling and care coordination. Objective - Vital Signs Vital signs: Vital Signs Temp 98.4 F 09/08/20 08:00 Pulse 66 09/08/20 08:00 Resp 16 09/08/20 08:00 BP 186/82 09/08/20 08:00 Pulse Ox 96 09/08/20 08:00 Intake & Output 09/07/20 09/08/20 09/08/20 18:59 06:59 18:59 Intake Total 1680 Output Total 200 1100 Balance 1480 -1100 Intake: Oral 1680 Output: Urine 200 1100 Other: Voiding Method External Catheter External Catheter External Catheter # Voids 2 - Labs CBC & Chem 7: 09/08/20 05:13 09/08/20 05:13 Labs: Abnormal Lab Results - Last 24 Hours (Table) 09/07/20 09/07/20 09/07/20 Range/Units 11:25 16:27 20:21 RBC (3.80-5.40) m/uL Hgb (11.4-16.0) gm/dL Hct (34.0-46.0) % MCHC (31.0-37.0) g/dL RDW (11.5-15.5) % Lymphocytes # (1.0-4.8) k/uL Carbon Dioxide (22-30) mmol/L BUN (7-17) mg/dL Glucose (74-99) mg/dL POC Glucose (mg/dL) 189 H 191 H 293 H (75-99) mg/dL 09/08/20 09/08/20 09/08/20 Range/Units 05:13 05:13 07:07 RBC 3.51 L (3.80-5.40) m/uL Hgb 9.3 L (11.4-16.0) gm/dL Hct 30.5 L (34.0-46.0) % MCHC 30.5 L (31.0-37.0) g/dL RDW 17.4 H (11.5-15.5) % Lymphocytes # 0.5 L (1.0-4.8) k/uL Carbon Dioxide 31 H (22-30) mmol/L BUN 21 H (7-17) mg/dL Glucose 305 H (74-99) mg/dL POC Glucose (mg/dL) 301 H (75-99) mg/dL Microbiology - Last 24 Hours (Table) 09/06/20 09:30 Gram Stain - Preliminary Incision Wound Culture - Preliminary <Ivanna Short - Last Filed: 09/08/20 17:01> Subjective Patient seen and examined independently. Patient was also seen by Anson Bassett NP and case was discussed. I am in agreement with subjective, physical exam, assessment and plan as written above and amended below. Patient seen and examined at bedside with family present. She states she is feeling better than yesterday but still feel a "catch" in her chest every once in a while. She is worried about her right lower extremity but states it looks better than yesterday. General: non toxic, no distress, appears at stated age Derm: Healing incision to the right medial calf without warmth, minimal erythema, serous drainage but no purulent drainage at two thirds of the distal way down the wound, toes without signs of necrosis but with erythema without warmth, scale and plaquing of the skin with thickening, no ulcerations noted in between the toes. warm, dry Head: atraumatic, normocephalic, symmetric Eyes: EOMI, no lid lag, anicteric sclera Mouth: no lip lesion, mucus membranes moist Cardiovascular: S1S2 reg, no murmur, positive posterior tibial pulse bilateral, Lungs: Decreased breath sounds bilateral without wheezing, no rhonchi, no rales , no accessory muscle use Ext: no gross muscle atrophy, no edema, no contractures Neuro: CN II-XI grossly intact, no focal neuro deficits Psych: Alert, oriented, appropriate affect Objective - Vital Signs Vital signs: Vital Signs Temp 97.9 F 09/08/20 14:00 Pulse 75 09/08/20 14:00 Resp 18 09/08/20 14:00 BP 160/81 09/08/20 14:00 Pulse Ox 97 09/08/20 14:00 Intake & Output 09/07/20 09/08/20 09/08/20 18:59 06:59 18:59 Intake Total 1680 Output Total 200 1100 Balance 1480 -1100 Intake: Oral 1680 Output: Urine 200 1100 Other: Voiding Method External Catheter External Catheter External Catheter # Voids 2 - Labs CBC & Chem 7: 09/08/20 05:13 09/08/20 05:13 Labs: Abnormal Lab Results - Last 24 Hours (Table) 09/07/20 09/08/20 09/08/20 Range/Units 20:21 05:13 05:13 RBC 3.51 L (3.80-5.40) m/uL Hgb 9.3 L (11.4-16.0) gm/dL Hct 30.5 L (34.0-46.0) % MCHC 30.5 L (31.0-37.0) g/dL RDW 17.4 H (11.5-15.5) % Lymphocytes # 0.5 L (1.0-4.8) k/uL Carbon Dioxide 31 H (22-30) mmol/L BUN 21 H (7-17) mg/dL Glucose 305 H (74-99) mg/dL POC Glucose (mg/dL) 293 H (75-99) mg/dL 09/08/20 09/08/2009/08/21 Range/Units 07:07 11:37 16:20 RBC (3.80-5.40) m/uL Hgb (11.4-16.0) gm/dL Hct (34.0-46.0) % MCHC (31.0-37.0) g/dL RDW (11.5-15.5) % Lymphocytes # (1.0-4.8) k/uL Carbon Dioxide (22-30) mmol/L BUN (7-17) mg/dL Glucose (74-99) mg/dL POC Glucose (mg/dL) 301 H 387 H 349 H (75-99) mg/dL Microbiology - Last 24 Hours (Table) 09/06/20 09:30 Anaerobic Culture - Preliminary Incision 09/06/20 09:30 Gram Stain - Preliminary Incision Wound Culture - Preliminary Diphtheroid species
[2020-09-08] MEDS: ACETAMINOPHEN TAB 500 MG TAB PO PRN (13:11)
[2020-09-08 14:52] VITALS: RESP 18
[2020-09-08 16:22] LABS: Glucose,Whole Blood 349 mg/dL (75-99)
[2020-09-08] MEDS ORDERED: INSULIN DETEMIR (LEVEMIR) 100 UNIT/ML SYR SQ SCH ×3 (21:00)
[2020-09-08 21:12] LABS: Glucose,Whole Blood 305 mg/dL (75-99)
[2020-09-08] MEDS: MONTELUKAST 10 MG TAB PO SCH (21:54)
[2020-09-08] MEDS: DONEPEZIL 10 MG TAB PO SCH (21:54)
--- NOTE | 2020-09-09 07:05 | CONS ---
CONSULTATION DATE OF SERVICE: 09/08/2020 REASON FOR CONSULTATION: Right lower extremity wound positive culture. HISTORY OF PRESENT ILLNESS: The patient is an 80-year-old female with a past medical history significant for peripheral vascular disease in this patient who is status post left [id number] amputation and right lower extremity bypass surgery done at [facility] by Dr. Nicholson three weeks ago. The patient postoperative did require oral antibiotic for possible superficial cellulitis. Patient presented to [facility] 2 days ago for evaluation of increasing shortness of breath that has been getting worse for 1-2 before presentation to hospital. The patient denies having any fevers. The patient denies any URI symptoms. Denies any chest pain or significant cough. The patient denies abdominal pain or diarrhea. The patient did have occasional pain to the right lower extremity bypass incision site. The patient did have minimal swelling, slight redness, apparently there was minimal drainage which was cultured by the RN on admission and now showing diphtheroid species. Patient has been treated with multiple antibiotic in form of cefepime, vancomycin and Flagyl. Infectious Disease was consulted for further management of antibiotic therapy. The patient did have ultrasound of the right leg which was negative for DVT however did shows two fluid collection with a possible hematoma. The patient did not have any fever during this admission and the patient did have a normal white count. REVIEW OF SYSTEMS: Positive points have been mentioned in HPI. Rest of systems are negative. PAST MEDICAL HISTORY: COPD, diabetes mellitus, DC, osteoarthritis, peripheral vascular disease, trigeminal neuralgia. PAST SURGICAL HISTORY: Appendectomy, cholecystectomy, PTCA with stent, hysterectomy, pacemaker placement, left below the knee amputation, right lower extremity bypass surgery. SOCIAL HISTORY: Remote history of smoking. No drinking or drug use. FAMILY HISTORY: Mother with history of DC. Father with history of congestive heart failure. ALLERGIES: CODEINE . MEDICATION: The patient is currently on Tylenol, DuoNeb, Xanax, Eliquis, Lipitor, cefepime, Flagyl, vancomycin, Pharmacy to dose. PHYSICAL EXAMINATION: VITAL SIGNS: Blood pressure is 157/73 with a pulse of 69, temperature 98.3, she is 96% on room air. GENERAL DESCRIPTION: The patient is an elderly female lying in bed in no distress. No tachypnea or accessory muscles of respiration use. HEENT: Examination shows slight pallor. No scleral icterus. Oral mucous membrane is dry. NECK: Trachea central, no thyromegaly. LUNGS: Unlabored breathing, decreased breath sounds at the bases. No wheeze. HEART: S1-S2, regular rate and rhythm. ABDOMEN: Soft, no tenderness. No guarding or rigidity. EXTREMITIES: Right lower extremity, the bypass surgery is incision is currently healed. There is very minimal swelling, minimal redness. No fluctuation, induration or any drainage. NEUROLOGICAL: Patient is awake, alert, oriented times three. Mood and affect normal. LABS: Hemoglobin is 9.3 with white count 3.8, BUN of 21, creatinine 0.76. Vancomycin trough of 17. Culture showing diphtheroids species. DIAGNOSTIC IMPRESSION: 1. Patient admitted to the hospital with shortness of breath which is likely multifactorial in this patient who did have recently right lower extremity bypass graft surgery. The patient did have an incision which is currently healed with very minimal swelling and redness which is expected post surgery. There is some ultrasound suggestive of fluid collection which is more likely hematoma or seroma as the patient is clinically not behaving as an abscess. Patient with no fever or elevated white count. 2. Patient with positive superficial culture with diphtheroids, more likely skin colonization or contamination than true infection. PLAN: 1. Discontinue vancomycin, cefepime and Flagyl. 2. We will consider short course of oral Keflex for about a week. Thank you for this consultation. Will follow this patient along with you. MMODL / IJN: [id number] /
[2020-09-09 07:17] LABS: Glucose,Whole Blood 137 mg/dL (75-99)
[2020-09-09 08:00] VITALS: BP 171/94; PULSE 71; TEMP 97.6
[2020-09-09] MEDS ORDERED: FUROSEMIDE 40 MG TAB PO SCH (09:00)
[2020-09-09] MEDS ORDERED: predniSONE 20 MG TAB PO SCH (09:00)
[2020-09-09] MEDS ORDERED: CEPHALEXIN 500 MG CAP PO SCH (09:00)
[2020-09-09] MEDS: IPRATROPIUM-ALBUTEROL 3 ML NEB INHALATION SCH ×2 (09:00→12:21)
[2020-09-09] MEDS: APIXABAN 5 MG TAB PO SCH (09:17)
[2020-09-09] MEDS: hydrALAZINE HCL 25 MG TAB PO SCH (09:17)
[2020-09-09] MEDS: PREGABALIN 100 MG CAP PO SCH (09:17)
[2020-09-09] MEDS: PANTOPRAZOLE 40 MG TABLET PO SCH (09:18)
[2020-09-09] MEDS: SPIRONOLACTONE 25 MG TAB PO SCH (09:18)
[2020-09-09] MEDS: ATORVASTATIN 40 MG TAB PO SCH (09:18)
[2020-09-09] MEDS: OXcarbazepine 300 MG TAB PO SCH (09:18)
[2020-09-09] MEDS: CLOPIDOGREL 75 MG TAB PO SCH (09:18)
[2020-09-09] MEDS: LOSARTAN 50 MG TAB PO SCH (09:18)
[2020-09-09] MEDS: INSULIN ASPART (NovoLOG) 100 UNIT/ML VIAL SQ SCH ×2 (09:18→12:13)
--- NOTE | 2020-09-09 09:37 | P.DS ---
<Anson Bassett - Last Filed: 09/09/20 09:24> Providers Expected date of discharge: 09/09/20 Hospital Course: Discharge Diagnosis: Acute on chronic diastolic heart failure Right lower extremity cellulitis around surgical incision from recent bypass surgery Acute on chronic COPD exacerbation Hypertension Hyperlipidemia Insulin-dependent diabetes mellitus type 2 with hyperglycemia Right foot diabetic ulcer Atrial fibrillation on anticoagulation with Eliquis Hospital Course: Patient is a pleasant 80-year-old female with a past medical history is CAD, chronic diastolic heart failure with a preserved EF 55-60%, hypertension, hyperlipidemia, atrial fibrillation on anticoagulation with Eliquis, and insulin-dependent diabetes mellitus type 2. The patient presented to the hospital on 09/06/20 with a chief complaint of shortness of breath. she is found to have an elevated proBNP of 1270 and a chest x-ray confirming congestive heart failure with bilateral pleural effusions. Patient admitted under our services for acute onchronic diastolic heart failure, COPD exacerbation, in right lower extremity cellulitis status post recent bypass surgery with consultation to cardiology and vascular surgery for continued close medical management. Patient underwent diuresis with Lasix. Had an echocardiogram completed revealing a preserved ejection fraction of 50-55%. Venous Doppler right lower extremity was negative for DVT. Patient was seen and fully evaluated by cardiology increased hydralazine to 50 mg 3 times daily for optimal blood pressure control and recommended patient to be discharged home on Lasix 40 mg daily and to follow up outpatient with cardiology after discharge. During hospitalization patient was also treated with IV antibiotics for her right lower extremity cellulitis around surgical incision from her recent bypass surgery. For this cellulitis, pt was seen by infectious disease and being discharged home on Keflex for a total of 7 days of antibiotic therapy as recommended by infectious disease. Patient being discharged home at this time. She is to follow up outpatient with her primary care provider in 1-2 days, cardiology in 1-2 weeks, and infectious disease in 1- 2 weeks. Prescriptions given for hydralazine 50 mg 3 times daily, Keflex 500 mg 3 times daily 4 days, and Lasix 40 mg daily. Patient instructed to follow-up in one week to have CMP and magnesium drawn to assess electrolyte levels, results to be forwarded to PCP. Patient to continue to follow up with wound care outpatient for right foot diabetic ulcer. Physical exam: General: non toxic, no distress, appears at stated age Derm: warm, dry Head: atraumatic, normocephalic, symmetric Eyes: EOMI, no lid lag, anicteric sclera Mouth: no lip lesion, mucus membranes moist Cardiovascular: S1S2 reg, no murmur, gallop, or rub. Cap refill less than 2 seconds. Lungs: CTA bilateral, no rhonchi, no rales , no accessory muscle use Abdominal: soft, nontender to palpation, no guarding, no appreciable organomegaly Ext: Left BKA and right lower extremity with swelling (1+ pitting edema) and scarring from recent right lower extremity bypass graft. Dressing to right lower extremity, clean dry and intact. Neuro: CN II-XI grossly intact, no focal neuro deficits Psych: Alert, oriented, appropriate affect A total of 45 minutes of time were spent preparing this complex discharge summary. Patient Condition at Discharge: Stable Plan - Discharge Summary New Discharge Prescriptions: New hydrALAZINE HCL [Apresoline] 50 mg PO TID 30 Days #90 tab Cephalexin [Keflex] 500 mg PO TID 4 Days #12 cap Furosemide [Lasix] 40 mg PO DAILY 30 Days #30 tab Clopidogrel [Plavix] 75 mg PO DAILY tab Continue Montelukast [Singulair] 10 mg PO HS #30 tab Losartan [Cozaar] 50 mg PO DAILY Cyanocobalamin (Vitamin B-12) [Vitamin B-12] 1,000 mcg PO DAILY Rosuvastatin [Crestor] 20 mg PO DAILY OXcarbazepine [Trileptal] 300 mg PO BID metFORMIN HCL [metFORMIN HCL ER] 750 mg PO BID Apixaban [Eliquis] 5 mg PO BID Albuterol Inhaler [Ventolin Hfa Inhaler] 2 puff INHALATION RT-QID PRN PRN Reason: Shortness Of Breath [place]-3 Fatty Acids/Fish Oil [Fish Oil 1,000 mg Softgel] 1 cap PO DAILY Multivitamins, Thera [Multivitamin (formulary)] 1 tab PO DAILY Fluticasone/Salmeterol [Advair Hfa 45-21 Mcg Inhaler] 1 puff INHALATION RT- BID PRN PRN Reason: Shortness Of Breath Donepezil HCl [Aricept] 10 mg PO DAILY Liraglutide [Victoza 3-Orlin] 1.8 mg SQ DAILY Insulin Glargine,Hum.rec.anlog [Lantus Solostar] 2 unit SQ HS Pregabalin [Lyrica] 225 mg PO BID Discontinued Furosemide [Lasix] 40 mg PO Q48H PRN PRN Reason: Edema Discharge Medication List Montelukast [Singulair] 10 mg PO HS #30 tab 09/20/16 [Rx] Cyanocobalamin (Vitamin B-12) [Vitamin B-12] 1,000 mcg PO DAILY 07/18/17 [History] Losartan [Cozaar] 50 mg PO DAILY 07/18/17 [History] OXcarbazepine [Trileptal] 300 mg PO BID 01/10/19 [History] Rosuvastatin [Crestor] 20 mg PO DAILY 01/10/19 [History] metFORMIN HCL [metFORMIN HCL ER] 750 mg PO BID 02/15/19 [History] Apixaban [Eliquis] 5 mg PO BID 06/13/19 [History] Albuterol Inhaler [Ventolin Hfa Inhaler] 2 puff INHALATION RT-QID PRN 11/19/19 [History] Donepezil HCl [Aricept] 10 mg PO DAILY 09/06/20 [History] Fluticasone/Salmeterol [Advair Hfa 45-21 Mcg Inhaler] 1 puff INHALATION RT-BID PRN 09/06/20 [History] Insulin Glargine,Hum.rec.anlog [Lantus Solostar] 2 unit SQ HS 09/06/20 [History] Liraglutide [Victoza 3-Orlin] 1.8 mg SQ DAILY 09/06/20 [History] Multivitamins, Thera [Multivitamin (formulary)] 1 tab PO DAILY 09/06/20 [History] [place]-3 Fatty Acids/Fish Oil [Fish Oil 1,000 mg Softgel] 1 cap PO DAILY 09/06/20 [History] Pregabalin [Lyrica] 225 mg PO BID 09/06/20 [History] Cephalexin [Keflex] 500 mg PO TID 4 Days #12 cap 09/09/20 [Rx] Clopidogrel [Plavix] 75 mg PO DAILY tab 09/09/20 [Rx] Furosemide [Lasix] 40 mg PO DAILY 30 Days #30 tab 09/09/20 [Rx] hydrALAZINE HCL [Apresoline] 50 mg PO TID 30 Days #90 tab 09/09/20 [Rx] Follow up Appointment(s)/Referral(s): Roger Griffith MD [STAFF PHYSICIAN] - 1 Week (Office will call you with your appointment date and time.) [facility], [NON-STAFF] - Jack Pleitez MD [STAFF PHYSICIAN] - 09/21/20 1:15 pm Garfield Thurman [STAFF PHYSICIAN] - 09/13/20 3:45 pm Ambulatory/Diagnostic Orders: Comprehensive Metabolic Panel [LAB.AMB] Time Frame: 1 Week, Location: None Selected Magnesium [LAB.AMB] Time Frame: 1 Week, Location: None Selected Activity/Diet/Wound Care/Special Instructions: Activity: As tolerated. Take breaks as needed. Diet: Heart healthy and carb consistent diet. Avoid salt, or foods with hidden salts. Extra salt makes your heart work harder and traps the fluid in your body for longer. Special Instructions: Please call and schedule a follow-up appointment with your primary care provider, Dr. Martinez at [facility] in 1-2 days for a post- hospitalization follow-up examination or as you have requested we have provided you with the name of a local primary care doctor, Dr. Thurman. Weigh yourself every morning after you urinate. If you gain 3 pounds overnight or more than 5 pounds in one week, call your primary physician for guidance on your medications. Write down and Keep a log/journal of your weights. Take all of your medications as directed, especially your water pills. NEVER skip a dose. And remember to keep all of your doctor's appointments and follow- up as needed. Elevate your legs when you are not up moving around to help with circulation and prevent swelling. Call your physician if you notice any extra swelling in your legs, ankles, feet or abdomen, if you have a new dry cough, if your shortness of breath worsens with activity or at rest, or if you feel more fatigued. Discharge Disposition: HOME WITH HOME HEALTH SERVICES <Ivanna Short - Last Filed: 09/09/20 17:32> Providers Date of admission: 09/06/20 13:07 Attending physician: Venkat Quinn MD Consults: 09/06/20 10:15 Consult Physician Routine Consulting Provider: Ibrahima Aguilera Consult Reason/Comments: eval for possible post-op vascular infection. Do you want consulting provider notified?: Yes 09/08/20 13:24 Consult Physician Routine Consulting Provider: Jack Pleitez Consult Reason/Comments: positive wound culture, antibiotic recommendations Do you want consulting provider notified?: Yes Primary care physician: Physician Nonstaff Hospital Course: Anson Bassett NP rendered care for this patient independently, reviewed the findings and plan as documented in the note above. I did not physically speak with or examine the patient on this date.
--- NOTE | 2020-09-09 10:53 | P.PN ---
Subjective Progress Note Date: 09/09/20 Principal diagnosis: Patient recent bypass right lower extremity, questionable infection Seen and examined sitting up at the bedside. No acute changes through the night. She denies any pain to her leg or foot. Was seen yesterday by infectious disease and they discontinued all IV antibiotics and recommend possible Keflex for discharge. Continues to be afebrile, white count normal, wound culture positive for Diphtheroid, infectious disease states likely colonization or a false positive. Objective - Vital Signs Vital signs: Vital Signs Temp 97.6 F 09/09/20 08:00 Pulse 71 09/09/20 08:00 Resp 18 09/09/20 08:00 BP 171/94 09/09/20 08:00 Pulse Ox 97 09/09/20 08:00 Intake & Output 09/08/20 09/09/20 09/09/20 18:59 06:59 18:59 Intake Total 1080 Output Total 2700 400 Balance -1620 -400 Intake: Oral 1080 Output: Urine 2700 400 Other: Voiding Method External Catheter External Catheter - Exam General appearance: The patient is alert, oriented, in no acute distress. HET: Head is normocephalic and atraumatic. Neck: Supple without lymphadenopathy. Trachea midline. Extremities: Left BKA stump. Right lower extremity with +1 edema. Right lower extremity with incision at groin that is well approximated, incision on lower leg is well approximated with no drainage, some mild surrounding erythema, with erythema to the distal aspect of the right marshall. Foot with dressing that is clean dry and intact. Nontender. Neurological: No focal deficits. Strength and sensation are grossly intact. - Labs CBC & Chem 7: 09/08/20 05:13 09/08/20 05:13 Labs: Abnormal Lab Results - Last 24 Hours (Table) 09/08/20 09/08/20 09/08/20 Range/Units 11:37 16:20 21:10 POC Glucose (mg/dL) 387 H 349 H 305 H (75-99) mg/dL 09/09/20 Range/Units 07:15 POC Glucose (mg/dL) 137 H (75-99) mg/dL Microbiology - Last 24 Hours (Table) 09/06/20 09:30 Anaerobic Culture - Preliminary Incision 09/06/20 09:30 Gram Stain - Preliminary Incision Wound Culture - Preliminary Diphtheroid species Assessment and Plan Assessment: 1. History of peripheral arterial disease, status post recent fem-tib bypass to right lower extremity 2. History of left below the knee amputation 3. Right foot diabetic ulcer 4. Acute on chronic Congestive heart failure 5. History of coronary artery disease 6. Diabetes mellitus 7. Hypertension 8. Hyperlipidemia Plan: 1. Preliminary culture showing gram-positive bacilli, Diphtheroid species, likely colonization or emanation 2. Agree with discontinuing antibiotics 3. Lower extremity Doppler ultrasound reviewed 4. There is no indication for any vascular surgical intervention at this time 5. Continue with medical management 6. Patient to follow-up with Dr. Aguilera as scheduled Thank you for this consultation, he may be discharged home from a vascular surgical standpoint. The impression and plan of care has been dictated as directed. Dr. Mathews I performed a history and examination of this patient, discussed the same with the dictator. I agree with the dictator's note ,documented as a scribe. Any additional findings or plans will be noted.
[2020-09-09 11:35] LABS: Glucose,Whole Blood 181 mg/dL (75-99)
--- NOTE | 2020-09-09 12:05 | PN ---
PROGRESS NOTE DATE OF SERVICE: 09/09/2020 REASON FOR FOLLOWUP: Right lower extremity cellulitis. INTERVAL HISTORY: Patient is afebrile. The patient is breathing comfortably. Denies having any chest pain, shortness of breath or cough. No abdominal pain or pain to the right lower extremity. PHYSICAL EXAMINATION: VITAL SIGNS: Blood pressure 171/94 with a pulse of 71, temperature is 97.6, she is 97% on 2 L nasal cannula. GENERAL DESCRIPTION: An elderly female lying in bed in no distress. RESPIRATORY SYSTEM: Unlabored breathing, clear to auscultation anteriorly. HEART: S1, S2. Regular rate and rhythm. ABDOMEN: Soft, no tenderness. EXTREMITIES: Right leg with some swelling. No significant redness or drainage. LABS: No new labs have been obtained today. DIAGNOSTIC IMPRESSION AND PLAN: Patient with right lower extremity recent surgeon with bypass graft. There was some swelling, minimal drainage. Culture showing diphtheroids, more likely skin anita contaminant. Clinically not behaving as cellulitis or an abscess. Short course of oral Keflex on discharge and close outpatient followup. MMODL / IJN: [id number] /
== END 2020-09-09 15:11 | disposition home health service (06) | DRG 292 ==
LOC: EC 23:19 → 4SSUR 09-06 02:54 → OBSVTOIN 09-06 13:07
PROVIDERS: ADMIT Internal Medicine; ATTEND Internal Medicine
DX: I11.0 Hypertensive heart disease with heart failure (principal); J44.1 Chronic obstructive pulmonary disease with (acute) exacerbation; J96.11 Chronic respiratory failure with hypoxia; L03.115 Cellulitis of right lower limb; I48.21 Permanent atrial fibrillation; T81.49XA Infection following a procedure, other surgical site, initial encounter; Z20.822 Contact with and (suspected) exposure to COVID-19; I50.43 Acute on chronic combined systolic (congestive) and diastolic (congestive) heart failure; E11.621 Type 2 diabetes mellitus with foot ulcer; E11.51 Type 2 diabetes mellitus with diabetic peripheral angiopathy without gangrene; E11.40 Type 2 diabetes mellitus with diabetic neuropathy, unspecified; E11.65 Type 2 diabetes mellitus with hyperglycemia; L97.519 Non-pressure chronic ulcer of other part of right foot with unspecified severity; I25.10 Atherosclerotic heart disease of native coronary artery without angina pectoris; E87.6 Hypokalemia; D64.9 Anemia, unspecified; I08.1 Rheumatic disorders of both mitral and tricuspid valves; I73.00 Raynaud's syndrome without gangrene; E66.9 Obesity, unspecified; G50.0 Trigeminal neuralgia; L71.9 Rosacea, unspecified; E78.5 Hyperlipidemia, unspecified; M19.90 Unspecified osteoarthritis, unspecified site; Z68.29 Body mass index [BMI] 29.0-29.9, adult; Z79.899 Other long term (current) drug therapy; Z89.512 Acquired absence of left leg below knee; Z79.4 Long term (current) use of insulin; I25.2 Old myocardial infarction; Z90.2 Acquired absence of lung [part of]; Z95.5 Presence of coronary angioplasty implant and graft; Z95.0 Presence of cardiac pacemaker; Z90.710 Acquired absence of both cervix and uterus; Z88.5 Allergy status to narcotic agent; Z88.8 Allergy status to other drugs, medicaments and biological substances; Z79.02 Long term (current) use of antithrombotics/antiplatelets; Z79.01 Long term (current) use of anticoagulants; Z79.51 Long term (current) use of inhaled steroids; Z79.52 Long term (current) use of systemic steroids; Z87.891 Personal history of nicotine dependence; Z82.49 Family history of ischemic heart disease and other diseases of the circulatory system; Y83.8 Other surgical procedures as the cause of abnormal reaction of the patient, or of later complication, without mention of misadventure at the time of the procedure
CPT/HCPCS: 36415; 71046; 76705; 80048; 80053; 80202; 83605; 83735; 83880; 84484; 85025; 85379; 85610; 85730; 87070; 87075; 87205; 87635; 93005; 93306; 94640; 94760; 99285

== ENCOUNTER 2020-09-19 13:47 | Emergency (ER) | payer MEDICARE, OTHER ==
[2020-09-19 13:53] VITALS: TEMP 98.2
[2020-09-19 15:39] LABS: Calcium 9.2 mg/dL (8.4-10.2); Potassium 4.1 mmol/L (3.5-5.1); Total Bilirubin 0.7 mg/dL (0.2-1.3)
[2020-09-19 16:18] LABS: Anisocytosis Slight; Basophils # (A) 0.1 k/uL (0-0.2); Basophils % (A) 2 %; Eosinophils # (A) 0.2 k/uL (0-0.7); Eosinophils % (A) 3 %; HCT 29.2 % (34.0-46.0); HGB 8.7 gm/dL (11.4-16.0); Hypochromasia Marked; Lymphocytes # (A) 1.2 k/uL (1.0-4.8); Lymphocytes % (A) 22 %; MCH 24.8 pg (25.0-35.0); MCHC 29.9 g/dL (31.0-37.0); MCV 82.8 fL (80.0-100.0); Mean Platelet Volume 9.4; Monocytes # (A) 0.5 k/uL (0-1.0); Monocytes % (A) 9 %; Neutrophils # (A) 3.5 k/uL (1.3-7.7); Neutrophils % (A) 61 %; Platelet Count 205 k/uL (150-450); Poikilocytosis Slight; RBC 3.52 m/uL (3.80-5.40); RDW 17.7 % (11.5-15.5); WBC 5.7 k/uL (3.8-10.6)
--- NOTE | 2020-09-19 16:26 | ED ---
Wound/Laceration HPI - General Chief Complaint: Wound/Laceration Stated Complaint: Post op incision opened R leg Time Seen by Provider: 09/19/20 14:16 Source: patient, RN notes reviewed Mode of arrival: wheelchair Limitations: no limitations - History of Present Illness Initial Comments: Patient is an 80-year-old female that presents to the emergency department for a surgical wound dehiscence patient notes that she got a vein graft on her right lower extremity to 2 weeks ago. Patient does have a pertinent past history of diabetes a left BKA and other comorbidities. She notes that it was healing well until she noticed this morning that a kind of popped open in the middle of the wound on the lateral aspect of her knee. She notes that she has been up and walking around taking care of herself at home. Patient denied any pain or increased tenderness around the area. She noted that there has been clear drainage from the area since this morning. Daughter notes that they wrapped it with clean gauze and brought her in. They also note that they do have a follow- up and ago to try to bump it up sooner. Patient was in no apparent distress or pain while sitting in bed during the exam interview. He denied any chest pain first breath headache nausea vomiting diarrhea constipation fever fatigue chills. - Related Data Home Medications Medication Instructions Recorded Confirmed Cyanocobalamin (Vitamin B-12) 1,000 mcg PO DAILY 07/18/17 09/06/20 [Vitamin B-12] Losartan [Cozaar] 50 mg PO DAILY 07/18/17 09/06/20 OXcarbazepine [Trileptal] 300 mg PO BID 01/10/19 09/06/20 Rosuvastatin [Crestor] 20 mg PO DAILY 01/10/19 09/06/20 metFORMIN HCL [metFORMIN HCL ER] 750 mg PO BID 02/15/19 09/06/20 Apixaban [Eliquis] 5 mg PO BID 06/13/19 09/06/20 Albuterol Inhaler [Ventolin Hfa 2 puff INHALATION RT-QID PRN 11/19/19 09/06/20 Inhaler] Donepezil HCl [Aricept] 10 mg PO DAILY 09/06/20 09/06/20 Fluticasone/Salmeterol [Advair Hfa 1 puff INHALATION RT-BID PRN 09/06/20 09/06/20 45-21 Mcg Inhaler] Insulin Glargine,Hum.rec.anlog 2 unit SQ HS 09/06/20 09/06/20 [Lantus Solostar] Liraglutide [Victoza 3-Orlin] 1.8 mg SQ DAILY 09/06/20 09/06/20 Multivitamins, Thera [Multivitamin 1 tab PO DAILY 09/06/20 09/06/20 (formulary)] [place]-3 Fatty Acids/Fish Oil [Fish 1 cap PO DAILY 09/06/20 09/06/20 Oil 1,000 mg Softgel] Pregabalin [Lyrica] 225 mg PO BID 09/06/20 09/06/20 Previous Rx's Medication Instructions Recorded Montelukast [Singulair] 10 mg PO HS #30 tab 09/20/16 Cephalexin [Keflex] 500 mg PO TID 4 Days #12 cap 09/09/20 Clopidogrel [Plavix] 75 mg PO DAILY tab 09/09/20 Furosemide [Lasix] 40 mg PO DAILY 30 Days #30 tab 09/09/20 hydrALAZINE HCL [Apresoline] 50 mg PO TID 30 Days #90 tab 09/09/20 Sulfamethox-Tmp 800-160Mg [Bactrim 1 tab PO Q12HR 7 Days #14 tab 09/19/20 DS 800-160 mg] Allergies Allergy/AdvReac Type Severity Reaction Status Date / Time codeine AdvReac Nausea & Verified 09/19/20 13:49 Vomiting sitagliptin [From Janumet] AdvReac frequent Verified 09/19/20 13:49 UTI Review of Systems ROS Statement: Those systems with pertinent positive or pertinent negative responses have been documented in the HPI. ROS Other: All systems not noted in ROS Statement are negative. Past Medical History Past Medical History: Heart Failure, COPD, Diabetes Mellitus, Diabetes Mellitus, Myocardial Infarction ([place]), [place] Infarction ([place]), Osteoarthritis (OA), Respiratory Disorder, Skin Disorder, Vascular Disorder Additional Past Medical History / Comment(s): Trigeminal Neuralgia, Diabetic Neuropathy, [place] 1994, rosacea, Hypoxic Respiratory Failure; Raynauds; PVD; Anemia, left BKA done in 2019 Last Myocardial Infarction Date:: 1994 History of Any Multi-Drug Resistant Organisms: None Reported Past Surgical History: Appendectomy, Cholecystectomy, Heart Catheterization With Stent, Hysterectomy, Orthopedic Surgery, Pacemaker Additional Past Surgical History / Comment(s): Arthrectomy rt leg, Angioplasty, Pacemaker August 2016, left below the knee amputation, one heart stent Past Anesthesia/Blood Transfusion Reactions: No Reported Reaction Date of Last Stent Placement:: 1994 Type of Cardiac Device: Permanent Pacemaker Device Placement Date:: August 2016 Past Psychological History: No Psychological Hx Reported Smoking Status: Former smoker Past Alcohol Use History: None Reported Past Drug Use History: None Reported - Past Family History Father Family Medical History: Myocardial Infarction ([place]) Mother Family Medical History: Congestive Heart Failure (CHF), CVA/TIA, Diabetes Mellitus General Exam Limitations: no limitations General appearance: alert, in no apparent distress Head exam: Present: atraumatic, normocephalic, normal inspection Eye exam: Present: normal appearance, PERRL, EOMI. Absent: scleral icterus, conjunctival injection, periorbital swelling Neck exam: Present: normal inspection Respiratory exam: Present: normal lung sounds bilaterally. Absent: respiratory distress, wheezes, rales, rhonchi, stridor Cardiovascular Exam: Present: regular rate, normal rhythm, normal heart sounds. Absent: systolic murmur, diastolic murmur, rubs, gallop, clicks Extremities exam: Present: normal inspection, full ROM, normal capillary refill, other (Patient has a left BKA). Absent: tenderness, pedal edema, joint s welling, calf tenderness Neurological exam: Present: alert, oriented X3 Psychiatric exam: Present: normal affect, normal mood Skin exam: Present: warm, dry, intact, normal color, other (Surgical site incisions on the medial aspect of the right lower extremity has small area of dehiscence measuring approximately 2-3 cm no signs or symptoms of infection.). Absent: rash Course Vital Signs 09/19/20 13:50 Temperature 98.2 F Pulse Rate 78 Respiratory 16 Rate Blood Pressure 137/59 O2 Sat by Pulse 94 L Oximetry Medical Decision Making - Medical Decision Making 80-year-old female with wound dehiscence on her right lower external he. labs, wound culture ordered. Labs unremarkable. Wound was approximated and Steri-Stripped to allow drainage. Patient tolerated well. Case discussed with Dr. Chapa, patient can discharge home in stable condition to follow up with her surgeon and primary care. Antibiotics will be sent to cover any potential bacterial invasion. - Lab Data Result diagrams: 09/19/20 14:44 09/19/20 14:44 Lab Results 09/19/20 09/19/20 Range/Units 14:44 14:44 WBC 5.7 (3.8-10.6) k/uL RBC 3.52 L (3.80-5.40) m/uL Hgb 8.7 L (11.4-16.0) gm/dL Hct 29.2 L (34.0-46.0) % MCV 82.8 (80.0-100.0) fL MCH 24.8 L (25.0-35.0) pg MCHC 29.9 L (31.0-37.0) g/dL RDW 17.7 H (11.5-15.5) % Plt Count 205 (150-450) k/uL MPV 9.4 Neutrophils % 61 % Lymphocytes % 22 % Monocytes % 9 % Eosinophils % 3 % Basophils % 2 % Neutrophils # 3.5 (1.3-7.7) k/uL Lymphocytes # 1.2 (1.0-4.8) k/uL Monocytes # 0.5 (0-1.0) k/uL Eosinophils # 0.2 (0-0.7) k/uL Basophils # 0.1 (0-0.2) k/uL Hypochromasia Marked Poikilocytosis Slight Anisocytosis Slight Sodium 140 (137-145) mmol/L Potassium 4.1 (3.5-5.1) mmol/L Chloride 101 (98-107) mmol/L Carbon Dioxide 27 (22-30) mmol/L Anion Gap 12 mmol/L BUN 34 H (7-17) mg/dL Creatinine 0.81 (0.52-1.04) mg/dL Est GFR (CKD-EPI)AfAm 80 (>60 ml/min/1.73 sqM) Est GFR (CKD-EPI)NonAf 69 (>60 ml/min/1.73 sqM) Glucose 192 H (74-99) mg/dL Calcium 9.2 (8.4-10.2) mg/dL Total Bilirubin 0.7 (0.2-1.3) mg/dL AST 27 (14-36) U/L ALT 18 (4-34) U/L Alkaline Phosphatase 126 (38-126) U/L Total Protein 7.0 (6.3-8.2) g/dL Albumin 4.0 (3.5-5.0) g/dL Disposition Clinical Impression: Wound dehiscence Disposition: HOME SELF-CARE Condition: Stable Instructions (If sedation given, give patient instructions): Acute Wound Care (ED) Additional Instructions: Please return to the Emergency Department if symptoms worsen or any other concerns. Follow-up with primary care and surgeon as soon as possible. Take, Motrin as needed for pain. Can change Steri-Strips if they fall off. Try to avoid any strenuous activity or extra walking to prevent increased pressure in the right lower extremity. Take antibiotic as prescribed until complete. Is patient prescribed a controlled substance at d/c from ED?: No Referrals: Garfield Thurman [Primary Care Provider] - 1-2 days Time of Disposition: 16:26
[2020-09-19 17:01] VITALS: BP 128/70; PULSE 73; RESP 18
== END 2020-09-19 17:16 | disposition home or self-care (01) ==
LOC: EC 13:47
DX: T81.30XA Disruption of wound, unspecified, initial encounter (principal); E11.51 Type 2 diabetes mellitus with diabetic peripheral angiopathy without gangrene; E11.40 Type 2 diabetes mellitus with diabetic neuropathy, unspecified; I25.2 Old myocardial infarction; I50.9 Heart failure, unspecified; J44.9 Chronic obstructive pulmonary disease, unspecified; M19.90 Unspecified osteoarthritis, unspecified site; Z79.01 Long term (current) use of anticoagulants; Z79.02 Long term (current) use of antithrombotics/antiplatelets; Z79.4 Long term (current) use of insulin; Z79.51 Long term (current) use of inhaled steroids; Z82.49 Family history of ischemic heart disease and other diseases of the circulatory system; Z83.3 Family history of diabetes mellitus; Z87.891 Personal history of nicotine dependence; Z88.5 Allergy status to narcotic agent; Z95.0 Presence of cardiac pacemaker; Z95.5 Presence of coronary angioplasty implant and graft; Z89.512 Acquired absence of left leg below knee
CPT/HCPCS: 36415; 80053; 85025; 87070; 87205; 99283

== ENCOUNTER 2020-10-05 17:21 | Inpatient (IN) | payer MEDICARE, OTHER ==
[2020-10-05] MEDS ORDERED: PIPERACILLIN-TAZOBACTAM 3.375 GM in SODIUM CHLORIDE 0.9% 100 ML IVPB STA (18:06)
[2020-10-05] MEDS ORDERED: HYDROmorphone 0.5 MG/0.5 ML SYRINGE IVP STA (18:07)
--- NOTE | 2020-10-05 18:19 | ED ---
General Adult HPI - General Chief complaint: Recheck/Abnormal Lab/Rx Stated complaint: Rt Leg Pain/Recheck Time Seen by Provider: 10/05/20 17:45 Source: patient, RN notes reviewed, old records reviewed Mode of arrival: wheelchair Limitations: no limitations - History of Present Illness Initial comments: This is an 80-year-old female presents emergency Department complaining of a wound dehiscence on the right leg. Patient states she had bypass surgery leg over a month ago and they've been unable to get the wound to heal another's area redness and the pain is increasing. She saw Dr. Aguilera today the vascular surgeon he wanted the patient to be seen in the emergency department and admitted. Patient denies any fever or chills but she states there is more red and more painful and there is some drainage. Patient denies any difficulty breathing or cough shortness of breath. Patient denies any dysuria hematuria urinary frequency. - Related Data Home Medications Medication Instructions Recorded Confirmed Cyanocobalamin (Vitamin B-12) 1,000 mcg PO DAILY 07/18/17 09/06/20 [Vitamin B-12] Losartan [Cozaar] 50 mg PO DAILY 07/18/17 09/06/20 OXcarbazepine [Trileptal] 300 mg PO BID 01/10/19 09/06/20 Rosuvastatin [Crestor] 20 mg PO DAILY 01/10/19 09/06/20 metFORMIN HCL [metFORMIN HCL ER] 750 mg PO BID 02/15/19 09/06/20 Apixaban [Eliquis] 5 mg PO BID 06/13/19 09/06/20 Albuterol Inhaler [Ventolin Hfa 2 puff INHALATION RT-QID PRN 11/19/19 09/06/20 Inhaler] Donepezil HCl [Aricept] 10 mg PO DAILY 09/06/20 09/06/20 Fluticasone/Salmeterol [Advair Hfa 1 puff INHALATION RT-BID PRN 09/06/20 09/06/20 45-21 Mcg Inhaler] Insulin Glargine,Hum.rec.anlog 2 unit SQ HS 09/06/20 09/06/20 [Lantus Solostar] Liraglutide [Victoza 3-Orlin] 1.8 mg SQ DAILY 09/06/20 09/06/20 Multivitamins, Thera [Multivitamin 1 tab PO DAILY 09/06/20 09/06/20 (formulary)] [place]-3 Fatty Acids/Fish Oil [Fish 1 cap PO DAILY 09/06/20 09/06/20 Oil 1,000 mg Softgel] Pregabalin [Lyrica] 225 mg PO BID 09/06/20 09/06/20 Previous Rx's Medication Instructions Recorded Montelukast [Singulair] 10 mg PO HS #30 tab 09/20/16 Cephalexin [Keflex] 500 mg PO TID 4 Days #12 cap 09/09/20 Clopidogrel [Plavix] 75 mg PO DAILY tab 09/09/20 Furosemide [Lasix] 40 mg PO DAILY 30 Days #30 tab 09/09/20 hydrALAZINE HCL [Apresoline] 50 mg PO TID 30 Days #90 tab 09/09/20 Sulfamethox-Tmp 800-160Mg [Bactrim 1 tab PO Q12HR 7 Days #14 tab 09/19/20 DS 800-160 mg] Allergies Allergy/AdvReac Type Severity Reaction Status Date / Time codeine AdvReac Nausea & Verified 10/05/20 17:27 Vomiting sitagliptin [From Janumet] AdvReac frequent Verified 10/05/20 17:27 UTI Review of Systems ROS Statement: Those systems with pertinent positive or pertinent negative responses have been documented in the HPI. ROS Other: All systems not noted in ROS Statement are negative. Past Medical History Past Medical History: Heart Failure, COPD, Diabetes Mellitus, Diabetes Mellitus, Myocardial Infarction ([place]), [place]ocardial Infarction ([place]), Osteoarthritis ([place]), Respiratory Disorder, Skin Disorder, Vascular Disorder Additional Past Medical History / Comment(s): Trigeminal Neuralgia, Diabetic Neuropathy, [place] 1994, rosacea, Hypoxic Respiratory Failure; Raynauds; PVD; Anemia, left BKA done in 2019 Last Myocardial Infarction Date:: 1994 History of Any Multi-Drug Resistant Organisms: None Reported Past Surgical History: Appendectomy, Cholecystectomy, Heart Catheterization With Stent, Hysterectomy, Orthopedic Surgery, Pacemaker Additional Past Surgical History / Comment(s): Arthrectomy rt leg, Angioplasty, Pacemaker August 2016, left below the knee amputation, one heart stent Past Anesthesia/Blood Transfusion Reactions: No Reported Reaction Date of Last Stent Placement:: 1994 Type of Cardiac Device: Permanent Pacemaker Device Placement Date:: August 2016 Past Psychological History: No Psychological Hx Reported Smoking Status: Former smoker Past Alcohol Use History: None Reported Past Drug Use History: None Reported - Past Family History Father Family Medical History: Myocardial Infarction ([place]) Mother Family Medical History: Congestive Heart Failure (CHF), CVA/TIA, Diabetes Mellitus General Exam - General Exam Comments Initial Comments: GENERAL: Patient is well-developed and well-nourished. Patient is nontoxic and well- hydrated and is in mild distress. ENT: Neck is soft and supple. No significant lymphadenopathy is noted. Oropharynx i s clear. Moist mucous membranes. Neck has full range of motion without eliciting any pain. EYES: The sclera were anicteric and conjunctiva were pink and moist. Extraocular movements were intact and pupils were equal round and reactive to light. Eyelids were unremarkable. PULMONARY: Unlabored respirations. Good breath sounds bilaterally. No audible rales rhonchi or wheezing was noted. CARDIOVASCULAR: There is a regular rate and rhythm without any murmurs gallops or rubs. ABDOMEN: Soft and nontender with normal bowel sounds. SKIN: Skin is clear with no lesions or rashes and otherwise unremarkable. NEUROLOGIC: Patient is alert and oriented x3. Cranial nerves II through XII are grossly intact. Motor and sensory are also intact. Normal speech, volume and content. Symmetrical smile. MUSCULOSKELETAL: Patient has a dehiscence of the wound on the right leg and there is some erythema around the area is very tender. Patient has a dorsalis pedis pulse. LYMPHATICS: No significant lymphadenopathy is noted PSYCHIATRIC: Normal psychiatric evaluation. Limitations: no limitations Course Vital Signs 10/05/20 17:27 Temperature 97.4 F L Pulse Rate 67 Respiratory 16 Rate Blood Pressure 150/76 O2 Sat by Pulse 100 Oximetry Medical Decision Making - Medical Decision Making EKG shows atrial flutter with AV block and it's approximately 5-1. QRSs 84 Q-T intervals 394 QTC is 413. Patient's EKG shows no ST segment elevation however t here is some T-wave inversions in leads V4 V5 and 6 as well as leads 1 and 2 and aVL I spoke with Dr. Quesada he wanted the patient admitted. I admitted the patient I started the patient on antibiotics. I spoke with some physicians agreed to admit the patient admitted the patient wrote admitting orders. - Lab Data Result diagrams: 10/05/20 18:28 10/05/20 18:28 Lab Results 10/05/20 10/05/20 10/05/20 Range/Units 18:28 18:28 18:28 WBC 5.6 (3.8-10.6) k/uL RBC 3.95 (3.80-5.40) m/uL Hgb 9.7 L (11.4-16.0) gm/dL Hct 31.7 L (34.0-46.0) % MCV 80.1 (80.0-100.0) fL MCH 24.5 L (25.0-35.0) pg MCHC 30.5 L (31.0-37.0) g/dL RDW 17.5 H (11.5-15.5) % Plt Count 213 (150-450) k/uL MPV 10.2 Neutrophils % 54 % Lymphocytes % 29 % Monocytes % 9 % Eosinophils % 3 % Basophils % 1 % Neutrophils # 3.0 (1.3-7.7) k/uL Lymphocytes # 1.6 (1.0-4.8) k/uL Monocytes # 0.5 (0-1.0) k/uL Eosinophils # 0.2 (0-0.7) k/uL Basophils # 0.0 (0-0.2) k/uL Hypochromasia Marked Poikilocytosis Slight Anisocytosis Slight Microcytosis Slight PT 11.5 (9.0-12.0) sec INR 1.1 (<1.2) APTT 22.1 (22.0-30.0) sec Sodium 141 (137-145) mmol/L Potassium 4.3 (3.5-5.1) mmol/L Chloride 104 (98-107) mmol/L Carbon Dioxide 27 (22-30) mmol/L Anion Gap 10 mmol/L BUN 24 H (7-17) mg/dL Creatinine 0.70 (0.52-1.04) mg/dL Est GFR (CKD-EPI)AfAm >90 (>60 ml/min/1.73 sqM) Est GFR (CKD-EPI)NonAf 82 (>60 ml/min/1.73 sqM) Glucose 116 H (74-99) mg/dL Plasma Lactic Acid Naveen (0.7-2.0) mmol/L Calcium 8.8 (8.4-10.2) mg/dL Total Bilirubin 0.6 (0.2-1.3) mg/dL AST 30 (14-36) U/L ALT 20 (4-34) U/L Alkaline Phosphatase 157 H (38-126) U/L Total Protein 7.4 (6.3-8.2) g/dL Albumin 4.1 (3.5-5.0) g/dL 10/05/20 Range/Units 18:28 WBC (3.8-10.6) k/uL RBC (3.80-5.40) m/uL Hgb (11.4-16.0) gm/dL Hct (34.0-46.0) % MCV (80.0-100.0) fL MCH (25.0-35.0) pg MCHC (31.0-37.0) g/dL RDW (11.5-15.5) % Plt Count (150-450) k/uL MPV Neutrophils % % Lymphocytes % % Monocytes % % Eosinophils % % Basophils % % Neutrophils # (1.3-7.7) k/uL Lymphocytes # (1.0-4.8) k/uL Monocytes # (0-1.0) k/uL Eosinophils # (0-0.7) k/uL Basophils # (0-0.2) k/uL Hypochromasia Poikilocytosis Anisocytosis Microcytosis PT (9.0-12.0) sec INR (<1.2) APTT (22.0-30.0) sec Sodium (137-145) mmol/L Potassium (3.5-5.1) mmol/L Chloride (98-107) mmol/L Carbon Dioxide (22-30) mmol/L Anion Gap mmol/L BUN (7-17) mg/dL Creatinine (0.52-1.04) mg/dL Est GFR (CKD-EPI)AfAm (>60 ml/min/1.73 sqM) Est GFR (CKD-EPI)NonAf (>60 ml/min/1.73 sqM) Glucose (74-99) mg/dL Plasma Lactic Acid Naveen 1.3 (0.7-2.0) mmol/L Calcium (8.4-10.2) mg/dL Total Bilirubin (0.2-1.3) mg/dL AST (14-36) U/L ALT (4-34) U/L Alkaline Phosphatase (38-126) U/L Total Protein (6.3-8.2) g/dL Albumin (3.5-5.0) g/dL Disposition Clinical Impression: Deep incisional surgical site infection, Wound dehiscence Disposition: ADMITTED IP TO THIS HOSP Referrals: Garfield Thurman [Primary Care Provider] - 1-2 days Time of Disposition: 20:44
[2020-10-05] MEDS: SODIUM CHLORIDE 0.9% 500 ML 500 ML IV SCH ×2 (18:30→21:21)
[2020-10-05 18:40] LABS: Anisocytosis Slight; Basophils % (A) 1 %; Eosinophils # (A) 0.2 k/uL (0-0.7); Eosinophils % (A) 3 %; HCT 31.7 % (34.0-46.0); HGB 9.7 gm/dL (11.4-16.0); Hypochromasia Marked; Lymphocytes # (A) 1.6 k/uL (1.0-4.8); Lymphocytes % (A) 29 %; MCH 24.5 pg (25.0-35.0); MCHC 30.5 g/dL (31.0-37.0); MCV 80.1 fL (80.0-100.0); Mean Platelet Volume 10.2; Microcytosis Slight; Monocytes # (A) 0.5 k/uL (0-1.0); Monocytes % (A) 9 %; Neutrophils % (A) 54 %; Platelet Count 213 k/uL (150-450); Poikilocytosis Slight; RBC 3.95 m/uL (3.80-5.40); RDW 17.5 % (11.5-15.5); WBC 5.6 k/uL (3.8-10.6)
[2020-10-05 18:51] LABS: ALT 20 U/L (4-34); AST 30 U/L (14-36); African American GFR (CKD) >90 (>60 ml/min/1.73 sqM); Albumin 4.1 g/dL (3.5-5.0); Alkaline Phosphatase 157 U/L (38-126); Anion Gap 10 mmol/L; Blood Urea Nitrogen 24 mg/dL (7-17); Calcium 8.8 mg/dL (8.4-10.2); Carbon Dioxide 27 mmol/L (22-30); Chloride 104 mmol/L (98-107); Glucose 116 mg/dL (74-99); Non-African American GFR(CKD) 82 (>60 ml/min/1.73 sqM); Potassium 4.3 mmol/L (3.5-5.1); Sodium 141 mmol/L (137-145); Total Bilirubin 0.6 mg/dL (0.2-1.3); Total Protein 7.4 g/dL (6.3-8.2)
[2020-10-05 18:53] LABS: INR 1.1 (<1.2); Partial Thromboplastin Time 22.1 sec (22.0-30.0); Prothrombin Time 11.5 sec (9.0-12.0)
[2020-10-05] MEDS ORDERED: SODIUM CHLORIDE 0.9% 1,000 ML IV ONE (20:50)
--- NOTE | 2020-10-05 20:51 | CT ---
EXAMINATION TYPE: CT angio abd aorta w/Runoff DATE OF EXAM: 10/05/2020 HISTORY: Absent pulses around graft incision. CT DLP: 2590.6mGycm Automated Exposure Control for Dose Reduction was Utilized. CONTRAST: CTA of the abdominal aorta with runoff is performed without and with IV Contrast, patient injected wi th 100 mL of Isovue 370. COMPARISON: IR study 06/18/2019. FINDINGS: CTA: Aortoiliac vasculature: There is moderate to advanced atherosclerotic disease of the abdominal aorta without evidence of aneurysm, dissection or rupture. There is less than 50% stenosis of the celiac ar vishal, SMA, renal arteries and KATHLEEN origins. There is moderate to severe atherosclerotic disease of the iliac arteries with at least 50% stenosis. Right lower extremity: There is complete occlusion of the right superficial femoral artery. There is reconstitution at the level of the distal popliteal artery via collateral vessels seen. The profunda femoral artery is grossly patent. There is three-vessel runoff to the level of the foot with at least moderate stenosis. Left lower extremity: Below knee amputation noted. There is a long superficial femoral artery stent w ith absent contrast within the stent consistent with occlusion. Collateral vessels are present throug hout the thigh. The profunda femoral artery is patent. Nonvascular structures: The visualized lung bases demonstrate moderate right pleural effusion with adjacent small atelectasis . Diffuse marked pericardial calcification seen. There is trace perihepatic fluid tracking to the gallbladder fossa. Cholecystectomy and hepatic steat osis seen. Otherwise no focal hepatic lesion or abnormality. Multiple simple appearing splenic cyst measuring up to 0.7 cm. Otherwise no acute abnormality of the spleen, pancreas, adrenal glands, kidneys, bowel loops all urinary bladder. No free air. No definitiv sami enlarged abdominal or pelvic lymph nodes. There is small 2.2 x 1.1 cm simple appearing fluid adjacent to the right proximal common femoral vess els. Additional 2.8 x 2.2 cm fluid collection within the subcutaneous soft tissues at the posterior m edial aspect of the right proximal leg draining via overlying soft tissue defect is seen. No soft tis larissa gas. Heterogeneity and localized osteopenia involving the left distal femur and remnant tibia-fibula. No a cute osseous abnormality. IMPRESSION: Moderate to advanced atherosclerotic disease. Occlusion of the right superficial femoral artery with reconstitution at the distal popliteal artery via collateral vessels. Left superficial femoral artery stent with absent contrast, consistent with occlusion. Collateral ves sels seen. At least moderate stenosis of the right tibial and peroneal arteries. Nonspecific small fluid adjacent to the right common femoral vasculature. Additional small to moderate draining fluid collection about the posteromedial right proximal leg sub cutaneous soft tissues with overlying wound/ulcer. No definite soft tissue gas. However recommend cor relation for superimposed infection. Moderate right pleural effusion. Small perihepatic fluid. Extensive pericardial calcifications, can be seen with prior/chronic pericarditis. Nonspecific heterogeneity and osteopenia involving the left knee amputation. Findings may relate to d isuse osteopenia. Osteomyelitis cannot be excluded.
[2020-10-05] MEDS ORDERED: VANCOMYCIN IV PER PHARMACY 1 EACH MISC MISCELLANE PRN (20:57)
[2020-10-05] MEDS ORDERED: VANCOMYCIN 1,500 MG in SODIUM CHLORIDE 0.9% 250 ML IVPB ONE (21:15)
[2020-10-06] MEDS: PIPERACILLIN-TAZOBACTAM 3.375 GM in SODIUM CHLORIDE 0.9% 100 ML IVPB SCH ×3 (01:46→19:12)
[2020-10-06] MEDS: ACETAMINOPHEN TAB 325 MG TAB PO PRN ×3 (02:00→21:21)
[2020-10-06] MEDS ORDERED: SYMBICORT 80-4.5 MCG INHALER INHALATION PRN (02:19)
[2020-10-06 02:36] LABS: Glucose,Whole Blood 315 mg/dL (75-99)
[2020-10-06] MEDS ORDERED: INSULIN DETEMIR (LEVEMIR) 100 UNIT/ML SYR SQ STA (02:43)
--- NOTE | 2020-10-06 02:48 | P.HPIM ---
History of Present Illness H&P Date: 10/05/20 Patient is an 80-year-old female with an extensive PMH including systolic CHF, type II DM, hypertension, hyperlipidemia, and COPD who presented to the emergency room due to a nonhealing wound on the right leg. The patient reportedly underwent vascular bypass surgery for the leg a few month ago but had wound dehiscence and subsequently nonhealing wound of the right medial leg. The patient was seen by her vascular surgeon Dr. Gutierrez earlier today who sent the patient to the emergency room for IV antibiotics and further management. The patient reports that she has ongoing 4 out of 10 pain in the right leg at the site of the wound. She denied any additional complaints. She denied chest arielle n, shortness of breath, fever, chills, cough. Denied abdominal pain, nausea, vomiting. Denied urinary complaints. Review of systems: Pertinent positives and negatives as discussed in HPI, a complete review of systems was performed and all other systems are negative. Physical examination: General: non toxic, somewhat chronically ill-appearing, no distress, appears at stated age, obese Derm: Right leg wound with surrounding erythema and small amounts of purulent drainage and overlying dressing, warm, dry Head: atraumatic, normocephalic, symmetric Eyes: EOMI, no lid lag, anicteric sclera, pupils equal round reactive to light ENT: Nose and ears atraumatic, no thrush, no pharyngeal erythema Neck: No thyromegaly, no cervical lymphadenopathy, trachea midline, supple Mouth: no lip lesion, mucus membranes moist Cardiovascular: S1S2 reg, no murmur, positive posterior tibial pulse bilateral, no edema, capillary refill less than 2 seconds Lungs: CTA bilateral, no rhonchi, no rales , no accessory muscle use Abdominal: soft, nontender to palpation, no guarding, no appreciable organomegaly, normal bowel sounds Ext: no gross muscle atrophy, muscle strength 5 out of 5 in all 4 extremities g rossly, left BKA, no contractures, Neuro: CN II-XI grossly intact, light touch intact all 4 extremities, finger to nose within normal limits, Psych: Alert, oriented, appropriate affect Assessment/plan Right lower extremity nonhealing wound -Vascular surgery consult -Continue with IV antibiotics -Follow up blood cultures Chronic conditions: Type II DM, hypertension, hyperlipidemia COPD, systolic CHF -Continue with home medications -Lispro insulin sliding scale with blood glucose monitoring -Check A1c DVT prophylaxis -Eliquis The patient is admitted with an anticipated greater than than 2 midnight stay for evaluation of right leg wound CODE STATUS: Full Code Discussed with: Patient Anticipated discharge date: 2-[address]: Home Past Medical History Past Medical History: Heart Failure, COPD, Diabetes Mellitus, Diabetes Mellitus, Myocardial Infarction (SD), Myocardial Infarction (SD), Osteoarthritis (OA), Respiratory Disorder, Skin Disorder, Vascular Disorder Additional Past Medical History / Comment(s): Trigeminal Neuralgia, Diabetic Neuropathy, [place] 1994, rosacea, Hypoxic Respiratory Failure; Raynauds; PVD; Anemia, left BKA done in 2019 Last Myocardial Infarction Date:: 1994 History of Any Multi-Drug Resistant Organisms: None Reported Past Surgical History: Appendectomy, Cholecystectomy, Heart Catheterization With Stent, Hysterectomy, Orthopedic Surgery, Pacemaker Additional Past Surgical History / Comment(s): Arthrectomy rt leg, Angioplasty, Pacemaker August 2016, left below the knee amputation, one heart stent Past Anesthesia/Blood Transfusion Reactions: No Reported Reaction Date of Last Stent Placement:: 1994 Type of Cardiac Device: Permanent Pacemaker Device Placement Date:: August 2016 Past Psychological History: No Psychological Hx Reported Additional Psychological History / Comment(s): 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 No experience. No travel. No animal exposures Smoking Status: Former smoker Past Alcohol Use History: None Reported Additional Past Alcohol Use History / Comment(s): occassional cigarette - about 3 a day. Started smoking in 1952. Past Drug Use History: None Reported - Past Family History Father Family Medical History: Myocardial Infarction (SD) Mother Family Medical History: Congestive Heart Failure (CHF), CVA/TIA, Diabetes Mellitus Medications and Allergies Home Medications Medication Instructions Recorded Confirmed Type Montelukast [Singulair] 10 mg PO HS #30 tab 09/20/16 10/05/20 Rx Cyanocobalamin (Vitamin B-12) 1,000 mcg PO DAILY 07/18/17 10/05/20 History [Vitamin B-12] Losartan [Cozaar] 50 mg PO DAILY 07/18/17 10/05/20 History OXcarbazepine [Trileptal] 300 mg PO BID 01/10/19 10/05/20 History Rosuvastatin [Crestor] 20 mg PO DAILY 01/10/19 10/05/20 History metFORMIN HCL [metFORMIN HCL ER] 750 mg PO BID 02/15/19 10/05/20 History Apixaban [Eliquis] 5 mg PO BID 06/13/19 10/05/20 History Albuterol Inhaler [Ventolin Hfa 2 puff INHALATION RT-QID PRN 11/19/19 10/05/20 History Inhaler] Donepezil HCl [Aricept] 10 mg PO DAILY 09/06/20 10/05/20 History Fluticasone/Salmeterol [Advair Hfa 1 puff INHALATION RT-BID PRN 09/06/20 10/05/20 History 45-21 Mcg Inhaler] Insulin Glargine,Hum.rec.anlog 2 unit SQ HS 09/06/20 10/05/20 History [Lantus Solostar] Liraglutide [Victoza 3-Orlin] 1.8 mg SQ DAILY 09/06/20 10/05/20 History Multivitamins, Thera [Multivitamin 1 tab PO DAILY 09/06/20 10/05/20 History (formulary)] [place]-3 Fatty Acids/Fish Oil [Fish 1 cap PO DAILY 09/06/20 10/05/20 History Oil 1,000 mg Softgel] Pregabalin [Lyrica] 225 mg PO BID 09/06/20 10/05/20 History Furosemide [Lasix] 40 mg PO DAILY 30 Days #30 tab 09/09/20 10/05/20 Rx hydrALAZINE HCL [Apresoline] 50 mg PO TID 30 Days #90 tab 09/09/20 10/05/20 Rx Allergies Allergy/AdvReac Type Severity Reaction Status Date / Time codeine AdvReac Nausea & Verified 10/05/20 21:15 Vomiting sitagliptin [From t] AdvReac frequent Verified 10/05/20 21:15 UTI Physical Exam Vitals: Vital Signs Temp Pulse Resp BP Pulse Ox 10/05/20 21:29 66 16 172/83 98 10/05/20 17:27 97.4 F L 67 16 150/76 100 Intake and Output 10/05/20 10/05/20 10/06/20 14:59 22:59 06:59 Other: Weight 81.647 kg Results CBC & Chem 7: 10/05/20 18:28 10/05/20 18:28 Labs: Abnormal Lab Results - Last 24 Hours (Table) 10/05/20 10/05/20 Range/Units 18:28 18:28 Hgb 9.7 L (11.4-16.0) gm/dL Hct 31.7 L (34.0-46.0) % MCH 24.5 L (25.0-35.0) pg MCHC 30.5 L (31.0-37.0) g/dL RDW 17.5 H (11.5-15.5) % BUN 24 H (7-17) mg/dL Glucose 116 H (74-99) mg/dL Alkaline Phosphatase 157 H (38-126) U/L Thrombosis Risk Factor Assmnt - Choose All That Apply Any of the Below Risk Factors Present?: Yes Each Factor Represents 1 point: Abnormal pulmonary function (COPD), Obesity (BMI >25) Each Risk Factor Represents 3 Points: Age 75 years or older Thrombosis Risk Factor Assessment Total Risk Factor Score: 5 Thrombosis Risk Factor Assessment Level: High Risk
[2020-10-06] MEDS ORDERED: ALPRAZolam 0.5 MG TAB PO STA (03:05)
[2020-10-06 05:58] LABS: Glucose,Whole Blood 226 mg/dL (75-99)
[2020-10-06] MEDS: INSULIN ASPART (NovoLOG) 100 UNIT/ML VIAL SQ SCH ×4 (06:02→21:19)
[2020-10-06] MEDS: FUROSEMIDE 40 MG TAB PO SCH (08:56)
[2020-10-06] MEDS: OXcarbazepine 300 MG TAB PO SCH ×2 (08:56→21:22)
[2020-10-06] MEDS: DONEPEZIL 10 MG TAB PO SCH (08:56)
[2020-10-06] MEDS: hydrALAZINE HCL 50 MG TAB PO SCH ×3 (08:56→21:21)
[2020-10-06] MEDS: ATORVASTATIN 40 MG TAB PO SCH (08:56)
[2020-10-06] MEDS: LOSARTAN 50 MG TAB PO SCH (08:57)
[2020-10-06] MEDS ORDERED: APIXABAN 5 MG TAB PO SCH (09:00)
[2020-10-06] MEDS ORDERED: IBUPROFEN 800 MG TAB PO STA (11:10)
[2020-10-06 12:13] LABS: Glucose,Whole Blood 129 mg/dL (75-99)
--- NOTE | 2020-10-06 13:51 | P.GSCN ---
History of Present Illness Consult date: 10/06/20 Reason for Consult: Wound dehiscent Requesting physician: Charu Lin History of present illness: This is an 80 year old white female who was sent to the emergency department yesterday by her vascular surgeon Dr. Aguilera after being seen in the office with concerns for wound dehiscence. She has a past medical history significant for peripheral arterial disease status post right lower extremity bypass and left [id number] amputation, coronary artery disease, congestive heart failure, hypertension, COPD, and diabetes mellitus. She recently underwent fem- tib bypass of the right lower extremity with Dr. Aguilera approximately 4-5 weeks ago at [facility]. According to the emergency room notes son cloud was seen by Dr. Aguilera yesterday and was sent to emergency department for further evaluation of wound dehiscence. A CTA of the abdomen and pelvis with runoff was completed showing moderate to advanced arthrosclerotic disease. Occlusion of the right superficial femoral artery with reconstitution at the distal popliteal artery via collateral vessels. Left superficial femoral artery stent with absent contrast, consistent with occlusion. Collateral vessels seen. At least moderate stenosis of the right tibial and paranasal arteries. Nonspecific small fluid adjacent to the right common femoral vasculature. Additional small to moderate draining fluid collection about the posteromedial right proximal leg subcutaneous soft tissues with overlying wound/ulcer. No definite soft tissue gas. However recommend correlation for superimposed infection. Moderate right pleural effusion. Small. Hepatic fluid. Extensive pericardial calcifications can be seen with prior chronic pericarditis. The patient is seen and examined, she is confused, oriented to self and place. States she does not recall being at Dr. Aguilera's office yesterday. She states she has pain to bilateral lower extremities, patient has a previous left [id number] amputation. She had a max temperature of 101 yesterday evening. She denies any chest pain, shortness of breath, nausea or vomiting. Review of Systems A 14 point review of systems was completed all pertinent positives and negatives as stated in the HPI Past Medical History Past Medical History: Heart Failure, COPD, Diabetes Mellitus, Diabetes Mellitus, Myocardial Infarction ([place]), Myocardial Infarction (CO), Osteoarthritis (OA), Respiratory Disorder, Skin Disorder, Vascular Disorder Additional Past Medical History / Comment(s): Trigeminal Neuralgia, Diabetic Neuropathy, [place] 1994, rosacea, Hypoxic Respiratory Failure; Raynauds; PVD; Anemia, left BKA done in 2019 Last Myocardial Infarction Date:: 1994 History of Any Multi-Drug Resistant Organisms: None Reported Past Surgical History: Appendectomy, Cholecystectomy, Heart Catheterization With Stent, Hysterectomy, Orthopedic Surgery, Pacemaker Additional Past Surgical History / Comment(s): Arthrectomy rt leg, Angioplasty, Pacemaker August 2016, left below the knee amputation, one heart stent Past Anesthesia/Blood Transfusion Reactions: No Reported Reaction Date of Last Stent Placement:: 1994 Type of Cardiac Device: Permanent Pacemaker Device Placement Date:: August 2016 Past Psychological History: No Psychological Hx Reported Additional Psychological History / Comment(s): 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 No travel. No animal exposures Smoking Status: Former smoker Past Alcohol Use History: None Reported Additional Past Alcohol Use History / Comment(s): occassional cigarette - about 3 a day. Started smoking in 1952. Past Drug Use History: None Reported - Past Family History Father Family Medical History: Myocardial Infarction (CO) Mother Family Medical History: Congestive Heart Failure (CHF), CVA/TIA, Diabetes Mellitus Medications and Allergies Home Medications Medication Instructions Recorded Confirmed Type Montelukast [Singulair] 10 mg PO HS #30 tab 09/20/16 10/05/20 Rx Cyanocobalamin (Vitamin B-12) 1,000 mcg PO DAILY 07/18/17 10/05/20 History [Vitamin B-12] Losartan [Cozaar] 50 mg PO DAILY 07/18/17 10/05/20 History OXcarbazepine [Trileptal] 300 mg PO BID 01/10/19 10/05/20 History Rosuvastatin [Crestor] 20 mg PO DAILY 01/10/19 10/05/20 History metFORMIN HCL [metFORMIN HCL ER] 750 mg PO BID 02/15/19 10/05/20 History Apixaban [Eliquis] 5 mg PO BID 06/13/19 10/05/20 History Albuterol Inhaler [Ventolin Hfa 2 puff INHALATION RT-QID PRN 11/19/19 10/05/20 History Inhaler] Donepezil HCl [Aricept] 10 mg PO DAILY 09/06/20 10/05/20 History Fluticasone/Salmeterol [Advair Hfa 1 puff INHALATION RT-BID PRN 09/06/20 10/05/20 History 45-21 Mcg Inhaler] Insulin Glargine,Hum.rec.anlog 2 unit SQ HS 09/06/20 10/05/20 History [Lantus Solostar] Liraglutide [Victoza 3-Orlin] 1.8 mg SQ DAILY 09/06/20 10/05/20 History Multivitamins, Thera [Multivitamin 1 tab PO DAILY 09/06/20 10/05/20 History (formulary)] [place]-3 Fatty Acids/Fish Oil [Fish 1 cap PO DAILY 09/06/20 10/05/20 History Oil 1,000 mg Softgel] Pregabalin [Lyrica] 225 mg PO BID 09/06/20 10/05/20 History Furosemide [Lasix] 40 mg PO DAILY 30 Days #30 tab 09/09/20 10/05/20 Rx hydrALAZINE HCL [Apresoline] 50 mg PO TID 30 Days #90 tab 09/09/20 10/05/20 Rx Allergies Allergy/AdvReac Type Severity Reaction Status Date / Time codeine AdvReac Nausea & Verified 10/05/20 21:15 Vomiting sitagliptin [From Janumet] AdvReac frequent Verified 10/05/20 21:15 UTI Surgical - Exam Vital Signs Temp Pulse Resp BP Pulse Ox 97.4 F L 67 16 150/76 100 10/05/20 17:27 10/05/20 17:27 10/05/20 17:27 10/05/20 17:27 10/05/20 17:27 General appearance: The patient is alert, oriented 2, appears in no acute distress. HET: Head is normocephalic and atraumatic. Neck: Supple without lymphadenopathy. Trachea midline. Heart: S1 S2. Regular rate and rhythm. Lungs: Bilateral wheezes. Abdomen: Soft, nontender, nondistended. Extremities: Left lower extremity BKA. Right lower extremity medial side of calf with open wound measuring 6.5 cm x 2 cm with surrounding erythema, tenderness to palpation. Monophasic femoral, dorsalis pedis, and posterior tibialis Doppler signal. Neurological: Confused, alert and oriented to self and place. Results - Labs 10/05/20 18:28 10/05/20 18:28 Abnormal Lab Results - Last 24 Hours (Table) 10/05/20 10/05/20 10/06/20 Range/Units 18:28 18:28 02:35 Hgb 9.7 L (11.4-16.0) gm/dL Hct 31.7 L (34.0-46.0) % MCH 24.5 L (25.0-35.0) pg MCHC 30.5 L (31.0-37.0) g/dL RDW 17.5 H (11.5-15.5) % BUN 24 H (7-17) mg/dL Glucose 116 H (74-99) mg/dL POC Glucose (mg/dL) 315 H (75-99) mg/dL Alkaline Phosphatase 157 H (38-126) U/L 10/06/20 Range/Units 05:56 Hgb (11.4-16.0) gm/dL Hct (34.0-46.0) % MCH (25.0-35.0) pg MCHC (31.0-37.0) g/dL RDW (11.5-15.5) % BUN (7-17) mg/dL Glucose (74-99) mg/dL POC Glucose (mg/dL) 226 H (75-99) mg/dL Alkaline Phosphatase (38-126) U/L Diabetes panel 10/05/20 Range/Units 18:28 Sodium 141 (137-145) mmol/L Potassium 4.3 (3.5-5.1) mmol/L Chloride 104 (98-107) mmol/L Carbon Dioxide 27 (22-30) mmol/L BUN 24 H (7-17) mg/dL Creatinine 0.70 (0.52-1.04) mg/dL Glucose 116 H (74-99) mg/dL Calcium 8.8 (8.4-10.2) mg/dL AST 30 (14-36) U/L ALT 20 (4-34) U/L Alkaline Phosphatase 157 H (38-126) U/L Total Protein 7.4 (6.3-8.2) g/dL Albumin 4.1 (3.5-5.0) g/dL Calcium panel 10/05/20 Range/Units 18:28 Calcium 8.8 (8.4-10.2) mg/dL Albumin 4.1 (3.5-5.0) g/dL Pituitary panel 10/05/20 Range/Units 18:28 Sodium 141 (137-145) mmol/L Potassium 4.3 (3.5-5.1) mmol/L Chloride 104 (98-107) mmol/L Carbon Dioxide 27 (22-30) mmol/L BUN 24 H (7-17) mg/dL Creatinine 0.70 (0.52-1.04) mg/dL Glucose 116 H (74-99) mg/dL Calcium 8.8 (8.4-10.2) mg/dL Adrenal panel 10/05/20 Range/Units 18:28 Sodium 141 (137-145) mmol/L Potassium 4.3 (3.5-5.1) mmol/L Chloride 104 (98-107) mmol/L Carbon Dioxide 27 (22-30) mmol/L BUN 24 H (7-17) mg/dL Creatinine 0.70 (0.52-1.04) mg/dL Glucose 116 H (74-99) mg/dL Calcium 8.8 (8.4-10.2) mg/dL Total Bilirubin 0.6 (0.2-1.3) mg/dL AST 30 (14-36) U/L ALT 20 (4-34) U/L Alkaline Phosphatase 157 H (38-126) U/L Total Protein 7.4 (6.3-8.2) g/dL Albumin 4.1 (3.5-5.0) g/dL - Imaging Comments: CTA of the abdomen and pelvis with runoff was completed showing moderate to advanced arthrosclerotic disease. Occlusion of the right superficial femoral artery with reconstitution at the distal popliteal artery via collateral vessels. Left superficial femoral artery stent with absent contrast, consistent with occlusion. Collateral vessels seen. At least moderate stenosis of the right tibial and paranasal arteries. Nonspecific small fluid adjacent to the right common femoral vasculature. Additional small to moderate draining fluid collection about the posteromedial right proximal leg subcutaneous soft tissues with overlying wound/ulcer. No definite soft tissue gas. However recommend correlation for superimposed infection. Moderate right pleural effusion. Small. Hepatic fluid. Extensive pericardial calcifications can be seen with prior chronic pericarditis. Assessment and Plan Assessment: 1. Right lower extremity wound dehiscence 2. History of peripheral arterial disease, status post recent fem-tib bypass to right lower extremity 3. Previous left BKA 4. History of chronic congestive heart failure 5. History of coronary artery disease 6. Diabetes mellitus 7. Hypertension 8. Hyperlipidemia Plan: 1. Keep and by mouth 2. Hold Eliquis 3. Obtain wound culture 4. Arterial Doppler study ordered, poor study unable to obtain right dorsalis pedis or posterior tibialis signal 5. CT angiogram with runoff reviewed 6. Patient scheduled for right lower extremity debridement this afternoon 7. Infectious diseases on consult, appreciate their recommendations Thank you for this consultation and allowing us take part in the plan of care of your patient during her hospital stay The impression and plan of care has been dictated as directed. Dr. Mathews I performed a history and examination of this patient, discussed the same with the dictator. I agree with the dictator's note ,documented as a scribe. Any a dditional findings or plans will be noted.
[2020-10-06] MEDS: VANCOMYCIN 1,500 MG in SODIUM CHLORIDE 0.9% 250 ML IVPB SCH (14:57)
--- NOTE | 2020-10-06 15:31 | P.PN ---
Subjective Progress Note Date: 10/06/20 Hospital course: Patient is an 80-year-old female with a past medical history of CAD with recent bypass, hypertension, hyperlipidemia, atrial fibrillation on Eliquis, chronic diastolic heart failure with a preserved EF of 50-55%, insulin-dependent diabetes mellitus, peripheral arterial disease, and history of left BKA. Patient presented to our facility on 10/05/20 with a chief complaint of right lower extremity pain with delayed surgical wound healing and infection with dehiscence. She was admitted under our services with consultation to vascular surgery for continued medical management. CTA was completed revealing moderate to advanced atherosclerotic disease with occlusion of the right superficial femoral artery with reconstitution of the distal popliteal artery via collateral vessels, left superficial femoral artery stent with absent contrast consistent with occlusion with collateral vessels seen, moderate stenosis of the right tibial and peroneal arteries, nonspecific small fluid adjacent to the right common femoral vasculature, additional small to moderate draining fluid collection about the posteriomedial right proximal leg subcutaneous soft tissues with overlying wound/ulcer. Outpatient cultures done of right leg wound on 09/19/20 were positive for Ewingella americana and on 09/06/20 were positive for Corynebacterium striatum, however organism failed to thrive for sensitivity testing. Wound cultures and blood cultures obtained and pending at this time. Consult also placed to infectious disease. Physical exam: Patient seen and fully evaluated at the bedside. Patient was alert to person and place, however was a poor historian and seemed confused to time and situation. She did report having uncontrolled pain in right lower extremity. She also had an elevated temp of 101.5F requiring antipyretics. Stat lactate was drawn resulting at 1.1. Patient denies having any chest pain, palpitations, or shortness of breath. General: non toxic, no distress, appears at stated age Derm: warm, dry Head: atraumatic, normocephalic, symmetric Eyes: EOMI, no lid lag, anicteric sclera Mouth: no lip lesion, mucus membranes moist Cardiovascular: S1S2 reg, no murmur, positive posterior tibial pulse bilateral, Lungs: CTA bilateral, no rhonchi, no rales , no accessory muscle use Abdominal: soft, nontender to palpation, no guarding, no appreciable organomegaly Ext: no gross muscle atrophy, no edema, no contractures Neuro: CN II-XI grossly intact, no focal neuro deficits Psych: Alert, oriented, appropriate affect Plan of care: Right lower extremity pain with delayed surgical wound healing and infection with dehiscence -NPO until cleared by vascular surgery, plan for right lower extremity debridement later today. -Hold Eliquis and may resume once cleared by vascular surgery. -Wound cultures and blood cultures obtained and pending results at this time. -Infectious disease consulted, appreciate recommendations. -Continue IV antibiotics with vancomycin and Zosyn pending further recommendations and/or culture results. -Symptomatic care and pain management. Hypertension -Monitor vital signs and continue daily medication regimen. Hyperlipidemia -Continue atorvastatin 40 mg nightly. Atrial fibrillation -Hold Eliquis until clear to resume by vascular surgery. Type 2 insulin-dependent diabetes mellitus -Glycemic protocol with NovoLog sliding scale. Continue Levemir 10 units nightly. Other chronic issues include chronic diastolic heart failure with a preserved EF of 50-55%, advanced peripheral arterial disease, and history of left BKA. CODE STATUS: Full code DVT prophylaxis: Eliquis Discussed with: Patient and RN Anticipated discharge date: Clinical course to determine Anticipated discharge place: Clinical course to determine A total of 45 minutes was spent on the care of this complex patient more than 50% of the time was spent in counseling and care coordination. Objective - Vital Signs Vital signs: Vital Signs Temp 99.3 F 10/06/20 03:05 Pulse 87 10/06/20 03:05 Resp 21 10/06/20 03:05 BP 155/68 10/06/20 03:05 Pulse Ox 94 L 10/06/20 03:05 Intake & Output 10/05/20 10/06/20 10/06/20 18:59 06:59 18:59 Output Total 700 Balance -700 Weight 81.647 kg 81.5 kg Output: Urine 700 Other: Voiding Method Bedside Commode # Voids 2 - Labs CBC & Chem 7: 10/05/20 18:28 10/05/20 18:28 Labs: Abnormal Lab Results - Last 24 Hours (Table) 10/05/20 10/05/20 10/06/20 Range/Units 18:28 18:28 02:35 Hgb 9.7 L (11.4-16.0) gm/dL Hct 31.7 L (34.0-46.0) % MCH 24.5 L (25.0-35.0) pg MCHC 30.5 L (31.0-37.0) g/dL RDW 17.5 H (11.5-15.5) % BUN 24 H (7-17) mg/dL Glucose 116 H (74-99) mg/dL POC Glucose (mg/dL) 315 H (75-99) mg/dL Alkaline Phosphatase 157 H (38-126) U/L 10/06/20 Range/Units 05:56 Hgb (11.4-16.0) gm/dL Hct (34.0-46.0) % MCH (25.0-35.0) pg MCHC (31.0-37.0) g/dL RDW (11.5-15.5) % BUN (7-17) mg/dL Glucose (74-99) mg/dL POC Glucose (mg/dL) 226 H (75-99) mg/dL Alkaline Phosphatase (38-126) U/L
[2020-10-06 16:05] LABS: Hemoglobin A1C 6.9 % (4.0-6.0)
[2020-10-06] MEDS ORDERED: IV FLUID CONTINUATION 1,000 ML IV ONE (16:44)
[2020-10-06] MEDS ORDERED: LIDOCAINE 1% (10MG/ML) FOR IV START INTRADERMA ONE (17:03)
[2020-10-06 17:09] LABS: Glucose,Whole Blood 95 mg/dL (75-99)
[2020-10-06] MEDS ORDERED: ONDANSETRON 4 MG/2 ML VIAL ONE (17:09)
[2020-10-06] MEDS ORDERED: ONDANSETRON 4 MG/2 ML VIAL IVP ONE (17:10)
[2020-10-06] MEDS ORDERED: LIDOCAINE 1% INJ 10MG/ML (20 ML MDV) ONE (17:36)
[2020-10-06] MEDS ORDERED: MIDAZOLAM 2 MG/2 ML VIAL ONE (17:36)
[2020-10-06] MEDS ORDERED: fentaNYL (PF) 50 MCG/ML 2 ML AMP ONE (17:36)
[2020-10-06] MEDS ORDERED: PROPOFOL 10 MG/ML 20 ML VIAL IV ONE (17:36)
[2020-10-06] MEDS ORDERED: KETAMINE 10 MG/ML 20 ML VIAL ONE (17:36)
--- NOTE | 2020-10-06 18:25 | P.OP ---
Date of Procedure: 10/06/20 Description of Procedure: Preoperative diagnosis: Right lower extremity erythema, sepsis, fever, peripheral arterial disease, status post bypass Postoperative diagnosis: Same Procedure: [Sharp excisional debridement right lower extremity incision 11 x 3 x 3 to fascia, distal marshall 1.2 x 1.5 x 0.1dermis] Surgeon: Pippa Mathews D.O. EBL: [5 mL] IV fluids: [See records] Urine output: [Not measured] Drains: [None] Complications: [None immediately apparent] Condition: [Stable to recovery] Operative indication and findings: [Patient is an 80-year-old female who previously underwent a femoral to below-knee bypass with vein who presented to the office with increasing swelling fever and a septic picture therefore she was sent to the ER. A CTA with runoffs was performed and did show a right-sided pleural effusion as well as known peripheral arterial disease. It was decided that she would benefit from a formal debridement of her dehisced wound given her appearance with erythema. Risks and benefits were discussed. She seemingly understood and was willing to proceed as such] Procedure in detail: [The patient was taken to the operative suite and placed in supine position. The right lower extremity was prepped and draped in usual sterile fashion. A preprocedure timeout was performed, all parties were in agreement. The dehisced wound was bluntly inspected and curet and scissors were used to remove the devitalized portions of tissue. Attempts were made to further delve into the pocket itself but there was no area of fluctuance or obvious drainage with significant digital evaluation. The portions of the fatty tissue was excised and this was abraded down to the level of the fascia which appeared to be intact without any evidence of infection. A culture was taken. Attention was then turned towards anterior marshall wound. It was a very superficial bullae the epidermis was removed and the dermal tissues were debrided sharply with curet with the measurements as above. Wet-to-dry dressings were placed. The patient was allowed awaken from anesthesia and transferred to recovery in stable condition having tolerated the procedure well.]
[2020-10-06 18:30] LABS: Glucose,Whole Blood 94 mg/dL (75-99)
[2020-10-06 20:16] LABS: Glucose,Whole Blood 137 mg/dL (75-99)
[2020-10-06] MEDS: MONTELUKAST 10 MG TAB PO SCH (21:21)
[2020-10-06] MEDS: INSULIN DETEMIR (LEVEMIR) 100 UNIT/ML SYR SQ SCH (21:22)
[2020-10-06] MEDS: MORPHINE SULFATE 2 MG/ML SYRINGE IVP PRN (23:45)
[2020-10-06] MEDS: CEFEPIME 2 GM in SODIUM CHLORIDE 0.9% 100 ML IVPB SCH (23:46)
--- NOTE | 2020-10-07 00:29 | CONS ---
CONSULTATION DATE OF SERVICE: 10/06/2020 REASON FOR CONSULTATION: Right lower extremity nonhealing wound. HISTORY OF PRESENT ILLNESS: The patient is an 80-year-old female with past medical history significant for peripheral vascular disease who recently did have a right lower extremity bypass which was done by vascular surgery. The patient seemed to have dehiscence on the right leg wound for which the patient was evaluated by Vascular Surgery in the outpatient setting. Has been admitted to the hospital. Infection Disease was consulted for further management. The patient has been complaining of nonhealing of this wound. Over the last 1 week, the patient complaining of pain to the right leg wound to be sharp, intensity almost 10/10 with associated swelling and some redness and minimal drainage. No radiation of the pain. The patient, on presentation to the hospital, did have a fever of 101.5 degrees Fahrenheit with repeat fever this morning. The patient did have a normal white count though. Kidney function was normal. The patient was started on vancomycin and Zosyn. Has been admitted in the hospital. Infectious Disease was consulted for further management. The patient has been evaluated by Vascular Surgery. She has been taken to the OR and is status post debridement of the wound. Culture has been obtained. REVIEW OF SYSTEMS: Positive points have been mentioned in HPI. Rest of systems are negative. PAST MEDICAL HISTORY: Heart failure, COPD, diabetes mellitus, NE, osteoarthritis, ( ), peripheral vascular disease. PAST SURGICAL HISTORY: Left [id number] amputation. Right leg bypass surgery. Right ( ) arthrectomy, angioplasty. Appendectomy, cholecystectomy, PTCA with stent and pacemaker placement. SOCIAL HISTORY: Remote history of smoking, no drinking or drug use. FAMILY HISTORY: Father with history of NE. Mother history of congestive heart failure with CVA and diabetes mellitus. ALLERGIES: To CODEINE and . MEDICATIONS: The patient is currently on vancomycin, Pharmacy to dose. She is on Tylenol, Lipitor, Symbicort, Zosyn, Lasix, hydralazine, NovoLog, Levemir, Cozaar, Singulair, Trileptal. PHYSICAL EXAMINATION: Blood pressure is 110/55 with a pulse of 77, temperature 98.1, she is 95% on 2 L nasal cannula. GENERAL DESCRIPTION: Is an elderly female, lying in bed, in no distress. No tachypnea or accessory muscles of respiration use. HEENT: Examination shows slight pallor. No scleral icterus. Oral mucous membrane is dry. NECK: Trachea central, no thyromegaly. LUNGS: Unlabored breathing, clear to auscultation anteriorly. No wheeze or crackles. HEART: S1, S2. Regular rate and rhythm. ABDOMEN: Soft, no tenderness. No guarding or rigidity. EXTREMITIES: Right leg wound with cellulitis with surrounding swelling or redness. No foul-smelling drainage. NEUROLOGICAL: The patient is awake, alert, oriented. Affect normal. LABS: Hemoglobin 9.7, white count 5.6, BUN of 24, creatinine 0.72. Electrolytes normal. Liver enzymes are normal. Wound cultures currently pending. DIAGNOSTIC IMPRESSION AND PLAN: Patient admitted to the hospital with right leg wound dehiscence in this patient who did have a fever. Admission white count has been normal, status post debridement of the wound with cultures pending. Will need to cover for both Gram-positive and Gram- negative pathogen while waiting for the culture to finalize. PLAN: 1. Vancomycin, pharmacy to dose. Target of 15 while watching her kidney function closely. 2. Discontinue Zosyn and add cefepime to cover for the Gram-negative. 3. We will follow her clinical condition and culture to further adjust medication if needed. Thank you for this consultation. Will follow this patient along with you. MMODL / IJN: [id number] /
[2020-10-07] MEDS: MORPHINE SULFATE 2 MG/ML SYRINGE IVP PRN ×3 (04:25→23:24)
[2020-10-07] MEDS: VANCOMYCIN 1,500 MG in SODIUM CHLORIDE 0.9% 250 ML IVPB SCH (04:26)
[2020-10-07 06:03] LABS: Glucose,Whole Blood 165 mg/dL (75-99)
[2020-10-07] MEDS: INSULIN ASPART (NovoLOG) 100 UNIT/ML VIAL SQ SCH ×4 (06:09→21:00)
[2020-10-07 07:59] LABS: Calcium 8.3 mg/dL (8.4-10.2); Potassium 4.8 mmol/L (3.5-5.1)
--- NOTE | 2020-10-07 09:07 | CDI ---
Documentation Clarification Form Date: 10/07/2020 08:52:00 AM From: Nahed Hollingsworth RN, CCDS Admit Date: 10/05/2020 08:50:00 PM Patient Name: Ariadne Ortiz Visit Number: [id number] ATTENTION: The Clinical Documentation Specialists (CDI) and [facility] Coding Staff appreciate your assistance in clarifying documentation. Please respond to the clarification below the line at the bottom and electronically sign. The CDI & [facility] Coding staff will review the response and follow-up if needed. Please note: Queries are made part of the Legal Health Record. If you have any questions, please contact the author of this message via ITS. Dr. Oli Salazar Atrial Fibrillation is documented in the 10/06 Attending Progress Note by the SOLE LEVELING MACHINE OPERATOR. ED interpreted EKG as Atrial Flutter. Additional clarification regarding the type of atrial fibrillation and/ atrial flutter is requested. History/Risk Factors: Atrial Fib with home Eliquis, CAD with PTCA, Pacemaker, Chronic diastolic CHF, NC, chronic pericarditis, DM2, PVD, HTN, HLD Clinical Indicators: 10/06 Attending Progress Note: "Atrial fibrillation -Hold Eliquis until clear to resume by vascular surgery." EK/13 ED Interpretation: EKG shows atrial flutter with AV block and it's approximately 5-1." Telemetry: Nursing documentation of Telemetry includes documentation of both atrial fib and atrial flutter Treatment: Consults: no Cardiology consult Eliquis 5 mg PO BID at home Cozaar 50 mg PO Daily at home No current rate control Meds, and Eliquis on Hold Please clarify the type of atrial fibrillation, if known: [ ] Chronic [ ] Permanent [ X ] Paroxysmal [ ] Persistent [ ] Other, please specify [ ] Unable to determine Please clarify the type of Atrial Flutter, if known: [ ] Typical/Type I [ ] Atypical/Type II [ ] Other, please specify [ X] Unable to determine (Template Last Revised: July 2020) MTDD
[2020-10-07] MEDS: CEFEPIME 2 GM in SODIUM CHLORIDE 0.9% 100 ML IVPB SCH ×3 (09:38→23:24)
[2020-10-07] MEDS: LOSARTAN 50 MG TAB PO SCH (10:22)
[2020-10-07] MEDS: FUROSEMIDE 40 MG TAB PO SCH (10:22)
[2020-10-07] MEDS: ATORVASTATIN 40 MG TAB PO SCH (10:22)
[2020-10-07] MEDS: hydrALAZINE HCL 50 MG TAB PO SCH ×3 (10:22→20:58)
[2020-10-07] MEDS: DONEPEZIL 10 MG TAB PO SCH (10:22)
[2020-10-07] MEDS: OXcarbazepine 300 MG TAB PO SCH ×2 (10:22→20:59)
--- NOTE | 2020-10-07 10:28 | P.PN ---
Subjective Progress Note Date: 10/07/20 Principal diagnosis: Wound dehiscence The patient is seen and examined sitting up in her bed. She is postop day #1 for right lower extremity excisional debridement. She has a wet to dry dressing in place with serosanguineous drainage. She is somewhat drowsy, but responsive and answering questions appropriately. She's been afebrile through the night. Objective - Vital Signs Vital signs: Vital Signs Temp 98.1 F 10/06/20 20:00 Pulse 75 10/07/20 08:00 Resp 16 10/07/20 08:00 BP 144/73 10/07/20 08:00 Pulse Ox 98 10/07/20 08:00 Intake & Output 10/06/20 10/07/20 10/07/20 18:59 06:59 18:59 Intake Total 600 Output Total 205 400 Balance 395 -400 Weight 81.5 kg 84 kg Intake: IV 600 Output: Urine 200 400 Estimated Blood Loss 5 Other: Voiding Method Bedside Commode External Catheter # Voids 1 - Exam General appearance: The patient is drowsy, oriented 2, appears in no acute distress. HET: Head is normocephalic and atraumatic. Neck: Supple without lymphadenopathy. Trachea midline. Heart: S1 S2. Regular rate and rhythm. Lungs: Bilateral wheezes. Abdomen: Soft, nontender, nondistended. Extremities: Left lower extremity BKA. Right lower extremity dressing intact with serosanguineous drainage, monophasic posterior tibialis and dorsalis pedis Doppler signal. Neurological: No focal deficits. Alert and oriented 2. - Labs CBC & Chem 7: 10/05/20 18:28 10/07/20 07:12 Labs: Abnormal Lab Results - Last 24 Hours (Table) 10/06/20 10/06/20 10/06/20 Range/Units 07:16 12:11 20:15 Chloride (98-107) mmol/L Carbon Dioxide (22-30) mmol/L BUN (7-17) mg/dL Creatinine (0.52-1.04) mg/dL Glucose (74-99) mg/dL POC Glucose (mg/dL) 129 H 137 H (75-99) mg/dL Hemoglobin A1c 6.9 H (4.0-6.0) % Calcium (8.4-10.2) mg/dL 10/07/20 10/07/20 Range/Units 06:02 07:12 Chloride 111 H (98-107) mmol/L Carbon Dioxide 19 L (22-30) mmol/L BUN 30 H (7-17) mg/dL Creatinine 1.10 H (0.52-1.04) mg/dL Glucose 142 H (74-99) mg/dL POC Glucose (mg/dL) 165 H (75-99) mg/dL Hemoglobin A1c (4.0-6.0) % Calcium 8.3 L (8.4-10.2) mg/dL Microbiology - Last 24 Hours (Table) 10/06/20 18:05 Gram Stain - Preliminary Leg - Right Wound Culture - Preliminary 10/06/20 02:00 Gram Stain - Preliminary Leg - Right Wound Culture - Preliminary 10/06/20 18:05 Anaerobic Culture - Preliminary Leg - Right 10/05/20 18:25 Blood Culture - Preliminary Blood No Growth after 24 hours 10/05/20 18:26 Blood Culture - Preliminary Blood No Growth after 24 hours Assessment and Plan Assessment: 1. Postop day #1 right lower extremity incisional debridement 2. Right lower extremity wound dehiscence, infection 3. History of peripheral arterial disease, status post recent fem-tib bypass to right lower extremity 4. Previous left BKA 5. History of chronic congestive heart failure 6. History of coronary artery disease 7. Diabetes mellitus 8. Hypertension 9. Hyperlipidemia Plan: 1. Diet as Tolerated 2. Daily wet-to-dry dressing changes 3. Continue IV antibiotics per recommendations from infectious disease 4. Arterial Doppler study ordered, poor study unable to obtain right dorsalis pedis or posterior tibialis signal 5. CT angiogram with runoff reviewed Thank you for this consultation and allowing us take part in the plan of care of your patient during her hospital stay The impression and plan of care has been dictated as directed. Dr. Mathews I performed a history and examination of this patient, discussed the same with the dictator. I agree with the dictator's note ,documented as a scribe. Any additional findings or plans will be noted.
[2020-10-07 12:23] LABS: Glucose,Whole Blood 168 mg/dL (75-99)
--- NOTE | 2020-10-07 13:13 | P.PN ---
Subjective Progress Note Date: 10/07/20 Hospital course: Patient is an 80-year-old female with a past medical history of CAD with recent bypass, hypertension, hyperlipidemia, atrial fibrillation on Eliquis, chronic diastolic heart failure with a preserved EF of 50-55%, insulin-dependent diabetes mellitus, peripheral arterial disease, and history of left BKA. Patient presented to our facility on 10/05/20 with a chief complaint of right lower extremity pain with delayed surgical wound healing and infection with dehiscence. She was admitted under our services with consultation to vascular surgery for continued medical management. CTA was completed revealing moderate to advanced atherosclerotic disease with occlusion of the right superficial femoral artery with reconstitution of the distal popliteal artery via collateral vessels, left superficial femoral artery stent with absent contrast consistent with occlusion with collateral vessels seen, moderate stenosis of the right tibial and peroneal arteries, nonspecific small fluid adjacent to the right common femoral vasculature, additional small to moderate draining fluid collection about the posteriomedial right proximal leg subcutaneous soft tissues with overlying wound/ulcer. Outpatient cultures done of right leg wound on 09/19/20 were positive for Ewingella americana and on 09/06/20 were positive for Corynebacterium striatum, however organism failed to thrive for sensitivity testing. Wound cultures and blood cultures obtained and pending at this time. Infectious disease following, placed patient on cefepime and vancomycin pending further culture results. Right lower extremity Doppler ultrasound completed awaiting results. Physical exam: Patient seen and fully evaluated at the bedside. Patient underwent surgical debridement in the OR by vascular surgery yesterday afternoon. This morning she was again alert to person and place, however she remains confused to time and situation. She had to be asked questions repeatedly to respond and pt would then yell and say I'm trying to sleep. General: non toxic, no distress, appears at stated age Derm: warm, dry. Postoperative Dressing to right lower extremity intact with no signs of bleeding or drainage at this time. Head: atraumatic, normocephalic, symmetric Eyes: EOMI, no lid lag, anicteric sclera Mouth: no lip lesion, mucus membranes moist Cardiovascular: S1S2 reg, no murmur, positive posterior tibial pulse bilateral, Lungs: CTA bilateral, no rhonchi, no rales , no accessory muscle use Abdominal: soft, nontender to palpation, no guarding, no appreciable organomegaly Ext: no gross muscle atrophy, no edema, no contractures. Left BKA. Neuro: CN II-XI grossly intact, no focal neuro deficits. Psych: Alert, oriented to person and place confused to time and situation, appropriate affect. Plan of care: Right lower extremity pain with delayed surgical wound healing and infection with dehiscence -NPO until cleared by vascular surgery, patient day 1 postop status post debridement in OR by vascular surgery. -Hold Eliquis and may resume once cleared by vascular surgery. -Wound cultures and blood cultures obtained and pending results at this time. -Infectious disease consulted, changed antibiotics to vancomycin and cefepime. -Continue IV antibiotics with vancomycin and cefepime as recommended by infectious disease pending further culture results. -Symptomatic care and pain management. -Lower extremity Doppler ultrasound completed and pending results. Hypertension -Monitor vital signs and continue daily medication regimen. Hyperlipidemia -Continue atorvastatin 40 mg nightly. Paroxysmal Atrial fibrillation -Hold Eliquis until clear to resume by vascular surgery. Type 2 insulin-dependent diabetes mellitus -Glycemic protocol with NovoLog sliding scale. Continue Levemir 10 units nightly. Other chronic issues include chronic diastolic heart failure with a preserved EF of 50-55%, advanced peripheral arterial disease, and history of left BKA. CODE STATUS: Full code DVT prophylaxis: Eliquis Discussed with: Patient and RN Anticipated discharge date: Clinical course to determine Anticipated discharge place: Clinical course to determine A total of 45 minutes was spent on the care of this complex patient more than 50% of the time was spent in counseling and care coordination. Objective - Vital Signs Vital signs: Vital Signs Temp 98.1 F 10/06/20 20:00 Pulse 75 10/07/20 08:00 Resp 16 10/07/20 08:00 BP 144/73 10/07/20 08:00 Pulse Ox 98 10/07/20 08:00 Intake & Output 10/06/20 10/07/20 10/07/20 18:59 06:59 18:59 Intake Total 600 Output Total 205 400 Balance 395 -400 Weight 81.5 kg 84 kg Intake: IV 600 Output: Urine 200 400 Estimated Blood Loss 5 Other: Voiding Method Bedside Commode External Catheter # Voids 1 - Labs CBC & Chem 7: 10/05/20 18:28 10/07/20 07:12 Labs: Abnormal Lab Results - Last 24 Hours (Table) 10/06/20 10/06/20 10/06/20 Range/Units 07:16 12:11 20:15 Chloride (98-107) mmol/L Carbon Dioxide (22-30) mmol/L BUN (7-17) mg/dL Creatinine (0.52-1.04) mg/dL Glucose (74-99) mg/dL POC Glucose (mg/dL) 129 H 137 H (75-99) mg/dL Hemoglobin A1c 6.9 H (4.0-6.0) % Calcium (8.4-10.2) mg/dL 10/07/20 10/07/20 Range/Units 06:02 07:12 Chloride 111 H (98-107) mmol/L Carbon Dioxide 19 L (22-30) mmol/L BUN 30 H (7-17) mg/dL Creatinine 1.10 H (0.52-1.04) mg/dL Glucose 142 H (74-99) mg/dL POC Glucose (mg/dL) 165 H (75-99) mg/dL Hemoglobin A1c (4.0-6.0) % Calcium 8.3 L (8.4-10.2) mg/dL Microbiology - Last 24 Hours (Table) 10/06/20 18:05 Gram Stain - Preliminary Leg - Right Wound Culture - Preliminary 10/06/20 02:00 Gram Stain - Preliminary Leg - Right Wound Culture - Preliminary 10/06/20 18:05 Anaerobic Culture - Preliminary Leg - Right 10/05/20 18:25 Blood Culture - Preliminary Blood No Growth after 24 hours 10/05/20 18:26 Blood Culture - Preliminary Blood No Growth after 24 hours
[2020-10-07 16:55] LABS: Glucose,Whole Blood 194 mg/dL (75-99)
--- NOTE | 2020-10-07 18:03 | PN ---
PROGRESS NOTE DATE OF SERVICE: 10/07/2020 REASON FOR FOLLOWUP: Right leg wound infection. INTERVAL HISTORY: Patient is afebrile as of this morning. The patient is breathing. She is breathing comfortably. Pain to the right leg wound is currently controlled with pain medication. Denies having any chest pain, shortness of breath or cough. No nausea, vomiting or diarrhea. PHYSICAL EXAMINATION: Blood pressure 120/66, pulse of 68, temperature is 98.1, she is 94% on 2 L nasal cannula. GENERAL DESCRIPTION is an elderly female, lying in bed, in no distress. RESPIRATORY SYSTEM: Unlabored breathing, clear to auscultation anteriorly. HEART: S1, S2. Regular rate and rhythm. LEGS: Right leg is currently dressed up. No obvious drainage on the dressing. LABS: Wound culture pending. Creatinine is 1.10. DIAGNOSTIC IMPRESSION AND PLAN: Patient with right leg wound dehiscence, status post debridement. Cultures are currently pending. Patient is covered with vancomycin, cefepime. Discharge antibiotic based on the culture report. Continue supportive care. MMODL / IJN: [id number] /
[2020-10-07 20:27] LABS: Glucose,Whole Blood 159 mg/dL (75-99)
[2020-10-07] MEDS: MONTELUKAST 10 MG TAB PO SCH (20:58)
[2020-10-07] MEDS: ACETAMINOPHEN TAB 325 MG TAB PO PRN (20:59)
[2020-10-07] MEDS: INSULIN DETEMIR (LEVEMIR) 100 UNIT/ML SYR SQ SCH (21:00)
[2020-10-08] MEDS: ACETAMINOPHEN TAB 325 MG TAB PO PRN (04:26)
[2020-10-08] MEDS: VANCOMYCIN 1,500 MG in SODIUM CHLORIDE 0.9% 250 ML IVPB SCH (05:29)
[2020-10-08] MEDS: MORPHINE SULFATE 2 MG/ML SYRINGE IVP PRN ×3 (05:30→22:23)
[2020-10-08 06:00] LABS: Glucose,Whole Blood 124 mg/dL (75-99)
[2020-10-08] MEDS: INSULIN ASPART (NovoLOG) 100 UNIT/ML VIAL SQ SCH ×4 (06:03→22:00)
[2020-10-08] MEDS: CEFEPIME 2 GM in SODIUM CHLORIDE 0.9% 100 ML IVPB SCH ×2 (09:11→21:59)
[2020-10-08] MEDS: LOSARTAN 50 MG TAB PO SCH (09:18)
[2020-10-08] MEDS: ATORVASTATIN 40 MG TAB PO SCH (09:18)
[2020-10-08] MEDS: hydrALAZINE HCL 50 MG TAB PO SCH ×3 (09:18→22:00)
[2020-10-08] MEDS: OXcarbazepine 300 MG TAB PO SCH ×2 (09:18→22:00)
[2020-10-08] MEDS: DONEPEZIL 10 MG TAB PO SCH (09:18)
[2020-10-08] MEDS: FUROSEMIDE 40 MG TAB PO SCH (09:18)
[2020-10-08 11:55] LABS: Glucose,Whole Blood 143 mg/dL (75-99)
--- NOTE | 2020-10-08 14:17 | P.PN ---
<Anson Bassett - Last Filed: 10/08/20 14:05> Subjective Progress Note Date: 10/08/20 Hospital course: Patient is an 80-year-old female with a past medical history of CAD with recent bypass, hypertension, hyperlipidemia, atrial fibrillation on Eliquis, chronic diastolic heart failure with a preserved EF of 50-55%, insulin-dependent diabetes mellitus, peripheral arterial disease, and history of left BKA. Patient presented to our facility on 10/05/20 with a chief complaint of right lower extremity pain with delayed surgical wound healing and infection with dehiscence. She was admitted under our services with consultation to vascular surgery for continued medical management. CTA was completed revealing moderate to advanced atherosclerotic disease with occlusion of the right superficial femoral artery with reconstitution of the distal popliteal artery via collateral vessels, left superficial femoral artery stent with absent contrast consistent with occlusion with collateral vessels seen, moderate stenosis of the right tibial and peroneal arteries, nonspecific small fluid adjacent to the right common femoral vasculature, additional small to moderate draining fluid co llection about the posteriomedial right proximal leg subcutaneous soft tissues with overlying wound/ulcer. Outpatient cultures done of right leg wound on 09/19/20 were positive for Ewingella americana and on 09/06/20 were positive for Corynebacterium striatum, however organism failed to thrive for sensitivity testing. Wound cultures and blood cultures obtained and pending final results at this time, currently blood cultures and wound cultures showing no growth after 48 hours. Infectious disease following, placed patient on cefepime and vancomycin pending further culture results. Right lower extremity Doppler ultrasound completed awaiting results. Physical exam: Patient seen and fully evaluated at the bedside. Patient's mentation much improved today. Patient alert to person, place, time, and situation this morning. She reports pain in her right foot and is being medicated as previously ordered by RN at time of assessment. patient denies having headache, lightheadedness, dizziness, chest pain, palpitations, or shortness of breath. General: non toxic, no distress, appears at stated age Derm: warm, dry. Postoperative Dressing to right lower extremity intact with no signs of bleeding or drainage at this time. Head: atraumatic, normocephalic, symmetric Eyes: EOMI, no lid lag, anicteric sclera Mouth: no lip lesion, mucus membranes moist Cardiovascular: S1S2 reg, no murmur, positive posterior tibial pulse bilateral, Lungs: CTA bilateral, no rhonchi, no rales , no accessory muscle use Abdominal: soft, nontender to palpation, no guarding, no appreciable organomegaly Ext: no gross muscle atrophy, no edema, no contractures. Left BKA. Neuro: CN II-XI grossly intact, no focal neuro deficits. Psych: Alert, oriented to person and place, time and situation, appropriate affect. Plan of care: Right lower extremity pain with delayed surgical wound healing and infection with dehiscence -Patient was taken to OR for debridement on 10/06/20. -Hold Eliquis and may resume once cleared by vascular surgery. -Wound cultures and blood cultures obtained and pending final results at this time. preliminary results showing blood cultures and wound culture with no growth after 48 hours. -Infectious disease consulted, changed antibiotics to vancomycin and cefepime. -Continue IV antibiotics with vancomycin and cefepime as recommended by infectious disease pending further culture results. -Symptomatic care and pain management. -Lower extremity Doppler ultrasound completed and pending results. Hypertension -Monitor vital signs and continue daily medication regimen. Hyperlipidemia -Continue atorvastatin 40 mg nightly. Paroxysmal Atrial fibrillation -Hold Eliquis until clear to resume by vascular surgery. Type 2 insulin-dependent diabetes mellitus -Glycemic protocol with NovoLog sliding scale. Continue Levemir 10 units nightly. Other chronic issues include chronic diastolic heart failure with a preserved EF of 50-55%, advanced peripheral arterial disease, and history of left BKA. CODE STATUS: Full code DVT prophylaxis: Eliquis once cleared to resume by vascular surgery Discussed with: Patient and RN Anticipated discharge date: Clinical course to determine Anticipated discharge place: Clinical course to determine A total of 45 minutes was spent on the care of this complex patient more than 50% of the time was spent in counseling and care coordination. Objective - Vital Signs Vital signs: Vital Signs Temp 97.6 F 10/08/20 08:00 Pulse 64 10/08/20 11:51 Resp 16 10/08/20 11:51 BP 120/78 10/08/20 11:51 Pulse Ox 99 10/08/20 11:51 Intake & Output 10/07/20 10/08/20 10/08/20 18:59 06:59 18:59 Intake Total 886 540 Output Total 400 Balance 886 140 Weight 83.5 kg Intake: IV 100 Cefepime 2 gm In Sodium 100 Chloride 0.9% 100 ml @ 25 mls/hr IVPB Q8HR [facility] Rx# :[id number] Oral 786 540 Output: Urine 400 Other: Voiding Method External Catheter External Catheter External Catheter # Voids 1 - Labs CBC & Chem 7: 10/05/20 18:28 10/08/20 08:27 Labs: Abnormal Lab Results - Last 24 Hours (Table) 10/07/20 10/07/20 10/08/20 Range/Units 16:50 20:26 05:59 POC Glucose (mg/dL) 194 H 159 H 124 H (75-99) mg/dL 10/08/20 Range/Units 11:54 POC Glucose (mg/dL) 143 H (75-99) mg/dL Microbiology - Last 24 Hours (Table) 10/05/20 18:26 Blood Culture - Preliminary Blood No Growth after 48 hours 10/05/20 18:25 Blood Culture - Preliminary Blood No Growth after 48 hours <Ivanna Short - Last Filed: 10/08/20 22:15> Subjective Anson Bassett NP rendered care for this patient independently, reviewed the findings and plan as documented in the note above. I did not physically speak with or examine the patient on this date Vascular surgery notes reviewed. Patient likely will need repeat bypass at some point in time. Case was discussed with her daughter and the patient. Daughter appeared to be interested in palliative care. We'll follow up with appropriate family discussion in a.m. Objective - Vital Signs Vital signs: Vital Signs Temp 98.3 F 10/08/20 19:58 Pulse 68 10/08/20 19:58 Resp 18 10/08/20 19:58 BP 156/90 10/08/20 19:58 Pulse Ox 98 10/08/20 19:58 Intake & Output 10/08/20 10/08/20 10/09/20 06:59 18:59 06:59 Intake Total 540 Output Total 400 Balance 140 Weight 83.5 kg Intake: Oral 540 Output: Urine 400 Other: Voiding Method External Catheter External Catheter # Voids 1 1 - Labs CBC & Chem 7: 10/08/20 16:48 10/08/20 16:48 Labs: Abnormal Lab Results - Last 24 Hours (Table) 10/08/20 10/08/20 10/08/20 Range/Units 05:59 11:54 16:48 Hgb 9.2 L (11.4-16.0) gm/dL Hct 32.3 L (34.0-46.0) % MCH 23.4 L (25.0-35.0) pg MCHC 28.5 L (31.0-37.0) g/dL RDW 17.5 H (11.5-15.5) % Lymphocytes # 0.5 L (1.0-4.8) k/uL Chloride (98-107) mmol/L BUN (7-17) mg/dL Glucose (74-99) mg/dL POC Glucose (mg/dL) 124 H 143 H (75-99) mg/dL Calcium (8.4-10.2) mg/dL 10/08/20 10/08/20 10/08/20 Range/Units 16:48 16:54 20:21 Hgb (11.4-16.0) gm/dL Hct (34.0-46.0) % MCH (25.0-35.0) pg MCHC (31.0-37.0) g/dL RDW (11.5-15.5) % Lymphocytes # (1.0-4.8) k/uL Chloride 108 H (98-107) mmol/L BUN 28 H (7-17) mg/dL Glucose 161 H (74-99) mg/dL POC Glucose (mg/dL) 178 H 185 H (75-99) mg/dL Calcium 8.1 L (8.4-10.2) mg/dL Microbiology - Last 24 Hours (Table) 10/05/20 18:25 Blood Culture - Preliminary Blood No Growth after 72 hours 10/05/20 18:26 Blood Culture - Preliminary Blood No Growth after 72 hours 10/06/20 18:05 Gram Stain - Final Leg - Right Wound Culture - Final 10/06/20 18:05 Anaerobic Culture - Preliminary Leg - Right 10/06/20 02:00 Gram Stain - Final Leg - Right Wound Culture - Final Corynebacterium striatum
[2020-10-08] MEDS: ONDANSETRON 4 MG/2 ML VIAL IVP PRN ×2 (14:40→22:24)
--- NOTE | 2020-10-08 16:46 | P.PN ---
Subjective Progress Note Date: 10/08/20 Patient seen and examined. Complains of nausea and vomiting today which is new for her. No complete the pain otherwise. Slightly confused. Daughter is at bedside Objective - Vital Signs Vital signs: Vital Signs Temp 97.5 F L 10/08/20 14:57 Pulse 68 10/08/20 14:57 Resp 18 10/08/20 14:57 BP 147/83 10/08/20 14:57 Pulse Ox 98 10/08/20 14:57 Intake & Output 10/07/20 10/08/20 10/08/20 18:59 06:59 18:59 Intake Total 886 540 Output Total 400 Balance 886 140 Weight 83.5 kg Intake: IV 100 Cefepime 2 gm In Sodium 100 Chloride 0.9% 100 ml @ 25 mls/hr IVPB Q8HR [facility] Rx# :[id number] Oral 786 540 Output: Urine 400 Other: Voiding Method External Catheter External Catheter External Catheter # Voids 1 - Exam Mild distress, nausea. A changes normocephalic. Heart appears regular this time. Abdomen is soft and no severe tenderness to palpation. No rebound or guarding. Left lower cavity below-knee imitation site clean, dry, intact. Right lower extremity wound clean and dry with open incision. Bandages dry - Labs CBC & Chem 7: 10/05/20 18:28 10/08/20 08:27 Labs: Abnormal Lab Results - Last 24 Hours (Table) 10/07/20 10/07/20 10/08/20 Range/Units 16:50 20:26 05:59 POC Glucose (mg/dL) 194 H 159 H 124 H (75-99) mg/dL 10/08/20 Range/Units 11:54 POC Glucose (mg/dL) 143 H (75-99) mg/dL Microbiology - Last 24 Hours (Table) 10/06/20 02:00 Gram Stain - Final Leg - Right Wound Culture - Final Corynebacterium striatum 10/05/20 18:26 Blood Culture - Preliminary Blood No Growth after 48 hours 10/05/20 18:25 Blood Culture - Preliminary Blood No Growth after 48 hours Assessment and Plan Assessment: #1 peripheral arterial disease #2 right lower extremity wound dehiscence #3 nausea, vomiting Plan: At this point we'll order some labs to evaluate for this new onset nausea vomiting and given any further discourse as needed. Long discussion was had with the patient and her daughter regarding the plans going forward. Likely she will need some sort of repeat bypass was a mutation versus no intervention. It does appear that the bypass itself is likely nonfunctional, on the computed tomography scan it is appear partially patent through a branch, but does not fully visualize down into the infrapopliteal vessels. The QUINTIN was unreliable due to patient motion and inability to her the exam however waveforms appear dampened on the right. Discussion was had with the daughter who brings possibilities of palliative care, I do believe this may be a good overall discourse, we decided and discussed the importance of a family discussion regarding overall goals of care and will defer any further discussions overall plan of peripheral arterial disease and future bypass versus amputation versus no intervention to outpatient therapies, at this time continue to monitor and treat accordingly
[2020-10-08 16:59] LABS: Glucose,Whole Blood 178 mg/dL (75-99)
[2020-10-08 17:22] LABS: Anisocytosis Slight; Basophils % (A) 0 %; Eosinophils # (A) 0.3 k/uL (0-0.7); Eosinophils % (A) 5 %; HCT 32.3 % (34.0-46.0); HGB 9.2 gm/dL (11.4-16.0); Hypochromasia Marked; Lymphocytes # (A) 0.5 k/uL (1.0-4.8); Lymphocytes % (A) 9 %; MCH 23.4 pg (25.0-35.0); MCHC 28.5 g/dL (31.0-37.0); MCV 82.3 fL (80.0-100.0); Mean Platelet Volume 8.4; Monocytes # (A) 0.4 k/uL (0-1.0); Monocytes % (A) 7 %; Neutrophils # (A) 4.2 k/uL (1.3-7.7); Neutrophils % (A) 75 %; Platelet Count 159 k/uL (150-450); Poikilocytosis Slight; RBC 3.93 m/uL (3.80-5.40); RDW 17.5 % (11.5-15.5); WBC 5.6 k/uL (3.8-10.6)
[2020-10-08 17:41] LABS: Calcium 8.1 mg/dL (8.4-10.2); Potassium 4.6 mmol/L (3.5-5.1)
--- NOTE | 2020-10-08 19:13 | PN ---
PROGRESS NOTE DATE OF SERVICE: 10/08/2020 REASON FOR FOLLOWUP: Right lower extremity wound infection. INTERVAL HISTORY: Patient is afebrile. The patient is breathing comfortably. Pain to the right leg has slightly decreased intensity. No chest pain, shortness of breath or cough. No pain or diarrhea. PHYSICAL EXAMINATION: Blood pressure 147/83, pulse of 60 temperature 98.5, she is 98% on 2 L nasal cannula. GENERAL DESCRIPTION: Is an elderly female lying in bed in no distress. RESPIRATORY SYSTEM: Unlabored breathing, is clear to auscultation anteriorly. HEART: S1, S2. Regular rate and rhythm. ABDOMEN: Soft, no tenderness. LEGS: Right leg wound is currently dressed. RN mentioned, who changed the dressing earlier, the wound base looks clean with minimal surrounding erythema. LABS: Creatinine 0.89. DIAGNOSTIC IMPRESSION AND PLAN: Patient with right lower extremity surgical site wound dehiscence status post debridement. The wound is ( ) down to the fascia. Cultures are currently pending. Patient is covered with cefepime and vancomycin, to continue while waiting for the culture to finalize and monitor clinical course closely. MMODL / IJN: [id number] /
[2020-10-08 20:23] LABS: Glucose,Whole Blood 185 mg/dL (75-99)
[2020-10-08] MEDS: MONTELUKAST 10 MG TAB PO SCH (22:00)
[2020-10-08] MEDS: INSULIN DETEMIR (LEVEMIR) 100 UNIT/ML SYR SQ SCH (22:00)
[2020-10-09] MEDS: MORPHINE SULFATE 2 MG/ML SYRINGE IVP PRN ×3 (02:33→15:45)
[2020-10-09] MEDS: ACETAMINOPHEN TAB 325 MG TAB PO PRN ×3 (04:00→14:08)
[2020-10-09] MEDS ORDERED: VANCOMYCIN TROUGH DUE 1 EACH MISC MISCELLANE ONE (05:00)
[2020-10-09] MEDS: VANCOMYCIN 1,500 MG in SODIUM CHLORIDE 0.9% 250 ML IVPB SCH (06:05)
[2020-10-09 06:54] LABS: African American GFR (CKD) >90 (>60 ml/min/1.73 sqM); Anion Gap 10 mmol/L; Blood Urea Nitrogen 24 mg/dL (7-17); Calcium 8.5 mg/dL (8.4-10.2); Carbon Dioxide 25 mmol/L (22-30); Chloride 107 mmol/L (98-107); Glucose 134 mg/dL (74-99); Non-African American GFR(CKD) 83 (>60 ml/min/1.73 sqM); Sodium 142 mmol/L (137-145)
[2020-10-09 07:13] LABS: Anisocytosis Slight; HCT 30.5 % (34.0-46.0); HGB 8.8 gm/dL (11.4-16.0); Hypochromasia Marked; MCH 23.7 pg (25.0-35.0); MCHC 28.8 g/dL (31.0-37.0); MCV 82.1 fL (80.0-100.0); Mean Platelet Volume 9.6; Platelet Count 173 k/uL (150-450); Poikilocytosis Slight; RBC 3.71 m/uL (3.80-5.40); RDW 17.3 % (11.5-15.5); WBC 5.4 k/uL (3.8-10.6)
[2020-10-09 07:16] LABS: Glucose,Whole Blood 139 mg/dL (75-99)
[2020-10-09] MEDS: CEFEPIME 2 GM in SODIUM CHLORIDE 0.9% 100 ML IVPB SCH (09:01)
[2020-10-09] MEDS: hydrALAZINE HCL 50 MG TAB PO SCH ×3 (09:03→20:57)
[2020-10-09] MEDS: DONEPEZIL 10 MG TAB PO SCH (09:03)
[2020-10-09] MEDS: LOSARTAN 50 MG TAB PO SCH (09:03)
[2020-10-09] MEDS: ATORVASTATIN 40 MG TAB PO SCH (09:03)
[2020-10-09] MEDS: FUROSEMIDE 40 MG TAB PO SCH (09:03)
[2020-10-09] MEDS: INSULIN ASPART (NovoLOG) 100 UNIT/ML VIAL SQ SCH ×4 (10:07→20:56)
[2020-10-09 11:51] LABS: Glucose,Whole Blood 145 mg/dL (75-99)
--- NOTE | 2020-10-09 12:38 | P.PN ---
<Anson Bassett - Last Filed: 10/09/20 16:07> Subjective Progress Note Date: 10/09/20 Hospital course: Patient is an 80-year-old female with a past medical history of CAD with recent bypass, hypertension, hyperlipidemia, atrial fibrillation on Eliquis, chronic diastolic heart failure with a preserved EF of 50-55%, insulin-dependent diabetes mellitus, peripheral arterial disease, and history of left BKA. Patient presented to our facility on 10/05/20 with a chief complaint of right lower extremity pain with delayed surgical wound healing and infection with dehiscence. She was admitted under our services with consultation to vascular surgery for continued medical management. CTA was completed revealing moderate to advanced atherosclerotic disease with occlusion of the right superficial femoral artery with reconstitution of the distal popliteal artery via collateral vessels, left superficial femoral artery stent with absent contrast consistent with occlusion with collateral vessels seen, moderate stenosis of the right tibial and peroneal arteries, nonspecific small fluid adjacent to the right common femoral vasculature, additional small to moderate draining fluid co llection about the posteriomedial right proximal leg subcutaneous soft tissues with overlying wound/ulcer. Outpatient cultures done of right leg wound on 09/19/20 were positive for Ewingella americana and on 09/06/20 were positive for Corynebacterium striatum, however organism failed to thrive for sensitivity testing. Wound cultures and blood cultures obtained and pending final results at this time, currently blood cultures and wound cultures showing no growth after 48 hours. Infectious disease following, placed patient on cefepime and vancomycin pending further culture results. Right lower extremity Doppler ultrasound completed awaiting results. Physical exam: Patient seen and fully evaluated at the bedside. Patient resting at time of assessment. She again appears to have slight confusion and yelling out. She denies having headache, lightheadedness, dizziness, chest pain, palpitations, or shortness of breath. General: non toxic, no distress, appears at stated age Derm: warm, dry. Postoperative Dressing to right lower extremity intact with no signs of bleeding or drainage at this time. Head: atraumatic, normocephalic, symmetric Eyes: EOMI, no lid lag, anicteric sclera Mouth: no lip lesion, mucus membranes moist Cardiovascular: S1S2 reg, no murmur, positive posterior tibial pulse bilateral, Lungs: CTA bilateral, no rhonchi, no rales , no accessory muscle use Abdominal: soft, nontender to palpation, no guarding, no appreciable organomegaly Ext: no gross muscle atrophy, no edema, no contractures. Left BKA. Neuro: CN II-XI grossly intact, no focal neuro deficits. Psych: Alert, oriented to person and place, confused to time and situation, a ppropriate affect. Plan of care: Right lower extremity pain with delayed surgical wound healing and infection with dehiscence -Patient was taken to OR for debridement on 10/06/20. -Hold Eliquis and may resume once cleared by vascular surgery. -Wound cultures positive for Corynebacterium striatum, sensitivity report pending. -Blood cultures no growth after 72 hours. -Infectious disease following. -Continue IV antibiotics with vancomycin and cefepime pending culture sensitivity reports. -Symptomatic care and pain management. -Lower extremity Doppler ultrasound completed and pending results. Hypertension -Monitor vital signs and continue daily medication regimen. Hyperlipidemia -Continue atorvastatin 40 mg nightly. Paroxysmal Atrial fibrillation -Hold Eliquis until clear to resume by vascular surgery. Type 2 insulin-dependent diabetes mellitus -Glycemic protocol with NovoLog sliding scale. Continue Levemir 10 units nightly. Other chronic issues include chronic diastolic heart failure with a preserved EF of 50-55%, advanced peripheral arterial disease, and history of left BKA. CODE STATUS: Full code DVT prophylaxis: Eliquis once cleared to resume by vascular surgery Discussed with: Patient and RN Anticipated discharge date: Clinical course to determine Anticipated discharge place: Clinical course to determine A total of 45 minutes was spent on the care of this complex patient more than 50% of the time was spent in counseling and care coordination. Objective - Vital Signs Vital signs: Vital Signs Temp 96.0 F L 10/09/20 07:29 Pulse 65 10/09/20 07:29 Resp 17 10/09/20 08:00 BP 144/75 10/09/20 07:29 Pulse Ox 93 L 10/09/20 07:31 Intake & Output 10/08/20 10/09/20 10/09/20 18:59 06:59 18:59 Intake Total 540 Output Total 400 Balance 140 Weight 81 kg Intake: Oral 540 Output: Urine 400 Other: Voiding Method External Catheter External Catheter Incontinent # Voids 3 1 - Labs CBC & Chem 7: 10/09/20 05:58 10/09/20 05:58 Labs: Abnormal Lab Results - Last 24 Hours (Table) 10/08/20 10/08/20 10/08/20 Range/Units 16:48 16:48 16:54 RBC (3.80-5.40) m/uL Hgb 9.2 L (11.4-16.0) gm/dL Hct 32.3 L (34.0-46.0) % MCH 23.4 L (25.0-35.0) pg MCHC 28.5 L (31.0-37.0) g/dL RDW 17.5 H (11.5-15.5) % Lymphocytes # 0.5 L (1.0-4.8) k/uL Chloride 108 H (98-107) mmol/L BUN 28 H (7-17) mg/dL Glucose 161 H (74-99) mg/dL POC Glucose (mg/dL) 178 H (75-99) mg/dL Calcium 8.1 L (8.4-10.2) mg/dL 10/08/20 10/09/20 10/09/20 Range/Units 20:21 05:58 05:58 RBC 3.71 L (3.80-5.40) m/uL Hgb 8.8 L (11.4-16.0) gm/dL Hct 30.5 L (34.0-46.0) % MCH 23.7 L (25.0-35.0) pg MCHC 28.8 L (31.0-37.0) g/dL RDW 17.3 H (11.5-15.5) % Lymphocytes # (1.0-4.8) k/uL Chloride (98-107) mmol/L BUN 24 H (7-17) mg/dL Glucose 134 H (74-99) mg/dL POC Glucose (mg/dL) 185 H (75-99) mg/dL Calcium (8.4-10.2) mg/dL 10/09/20 10/09/20 Range/Units 07:14 11:50 RBC (3.80-5.40) m/uL Hgb (11.4-16.0) gm/dL Hct (34.0-46.0) % MCH (25.0-35.0) pg MCHC (31.0-37.0) g/dL RDW (11.5-15.5) % Lymphocytes # (1.0-4.8) k/uL Chloride (98-107) mmol/L BUN (7-17) mg/dL Glucose (74-99) mg/dL POC Glucose (mg/dL) 139 H 145 H (75-99) mg/dL Calcium (8.4-10.2) mg/dL Microbiology - Last 24 Hours (Table) 10/05/20 18:25 Blood Culture - Preliminary Blood No Growth after 72 hours 10/05/20 18:26 Blood Culture - Preliminary Blood No Growth after 72 hours 10/06/20 18:05 Gram Stain - Final Leg - Right Wound Culture - Final 10/06/20 18:05 Anaerobic Culture - Preliminary Leg - Right 10/06/20 02:00 Gram Stain - Final Leg - Right Wound Culture - Final Corynebacterium striatum <Ivanna Short - Last Filed: 10/09/20 19:19> Subjective Patient seen and examined independently. Patient was also seen by Anson Bassett NP and case was discussed. I am in agreement with subjective, physical exam, assessment and plan as written above and amended below. Patient seen at bedside. She is moaning and asking for help. She is unable to tell me where she is having pain at work to localize the pain. She is moving her right foot independently but is unable to wiggle her toes on command. Foot is warm, Refills less than 2 seconds, no palpable pulse noted the patient is being followed by vascular surgery. Discussed with HEALTH PHYSICIST will start gabapentin. Concerns are also that patient have metabolic encephalopathy related to her infection which is causing confusion. General: non toxic, mild distress, appears at stated age Derm: warm, dry, dressing in place over right calf had just been changed by Dr. Pleitez will not disturb that time, left BKA Head: atraumatic, normocephalic, symmetric Eyes: EOMI, no lid lag, anicteric sclera Mouth: no lip lesion, mucus membranes moist Cardiovascular: S1S2 reg, no murmur, positive posterior tibial pulse bilateral, Lungs: CTA bilateral, no rhonchi, no rales , no accessory muscle use Psych: Alert to self only, does not answer other questions. Additional diagnosis: Metabolic encephalopathy Objective - Vital Signs Vital signs: Vital Signs Temp 97.0 F L 10/09/20 14:00 Pulse 68 10/09/20 14:00 Resp 18 10/09/20 14:00 BP 144/80 10/09/20 16:00 Pulse Ox 91 L 10/09/20 14:00 Intake & Output 10/09/20 10/09/20 10/10/20 06:59 18:59 06:59 Weight 81 kg 81 kg Other: Voiding Method External Catheter Incontinent # Voids 3 3 - Labs CBC & Chem 7: 10/09/20 05:58 10/09/20 05:58 Labs: Abnormal Lab Results - Last 24 Hours (Table) 10/08/20 10/09/20 10/09/20 Range/Units 20:21 05:58 05:58 RBC 3.71 L (3.80-5.40) m/uL Hgb 8.8 L (11.4-16.0) gm/dL Hct 30.5 L (34.0-46.0) % MCH 23.7 L (25.0-35.0) pg MCHC 28.8 L (31.0-37.0) g/dL RDW 17.3 H (11.5-15.5) % BUN 24 H (7-17) mg/dL Glucose 134 H (74-99) mg/dL POC Glucose (mg/dL) 185 H (75-99) mg/dL 10/09/20 10/09/20 10/09/20 Range/Units 07:14 11:50 16:39 RBC (3.80-5.40) m/uL Hgb (11.4-16.0) gm/dL Hct (34.0-46.0) % MCH (25.0-35.0) pg MCHC (31.0-37.0) g/dL RDW (11.5-15.5) % BUN (7-17) mg/dL Glucose (74-99) mg/dL POC Glucose (mg/dL) 139 H 145 H 118 H (75-99) mg/dL Microbiology - Last 24 Hours (Table) 10/05/20 18:25 Blood Culture - Preliminary Blood No Growth after 72 hours 10/05/20 18:26 Blood Culture - Preliminary Blood No Growth after 72 hours 10/06/20 18:05 Gram Stain - Final Leg - Right Wound Culture - Final 10/06/20 18:05 Anaerobic Culture - Preliminary Leg - Right 10/06/20 02:00 Gram Stain - Final Leg - Right Wound Culture - Final Corynebacterium striatum
[2020-10-09] MEDS: OXcarbazepine 300 MG TAB PO SCH ×2 (12:46→22:19)
[2020-10-09] MEDS ORDERED: KETOROLAC 15 MG/ML 1 ML VIAL IVP STA (16:38)
[2020-10-09 16:40] LABS: Glucose,Whole Blood 118 mg/dL (75-99)
--- NOTE | 2020-10-09 17:37 | PN ---
PROGRESS NOTE DATE OF SERVICE: 10/09/2020 REASON FOR FOLLOWUP: Right leg wound dehiscence and infection. INTERVAL HISTORY: The patient is afebrile. The patient is complaining of significant pain to the right leg wound area. The patient denies having any chest pain shortness, cough. No nausea no diarrhea. PHYSICAL EXAM: On examination, blood pressure 110/66, pulse of 68, temperature 97. He is 91%. General description is an elderly female lying in no distress. Respiratory system unlabored breathing, clear to auscultation anteriorly. Heart S1, S2. Regular rate and rhythm. Abdomen soft, no tenderness. Right leg wound base looks clean. No surrounding redness or any drainage. LABS: Wound culture with Corynebacterium. DIAGNOSTIC IMPRESSION AND PLAN: Patient with right leg wound infection status post debridement, culture showing Corynebacterium, question contaminant. Patient to continue with vancomycin. Discontinue cefepime. May benefit from wound VAC to the right leg for the wound healing process. Continue supportive care. MMODL / IJN: [id number] /
[2020-10-09 20:23] LABS: Glucose,Whole Blood 163 mg/dL (75-99)
[2020-10-09] MEDS: GABAPENTIN 100 MG CAP PO SCH (20:57)
[2020-10-09] MEDS: MONTELUKAST 10 MG TAB PO SCH (20:57)
[2020-10-09] MEDS: DOCUSATE 100 MG CAP PO SCH (20:57)
[2020-10-09] MEDS: INSULIN DETEMIR (LEVEMIR) 100 UNIT/ML SYR SQ SCH (21:08)
[2020-10-10] MEDS: MORPHINE SULFATE 2 MG/ML SYRINGE IVP PRN ×3 (01:17→21:30)
[2020-10-10] MEDS: VANCOMYCIN 1,500 MG in SODIUM CHLORIDE 0.9% 250 ML IVPB SCH (05:20)
[2020-10-10 07:33] LABS: Glucose,Whole Blood 123 mg/dL (75-99)
[2020-10-10] MEDS: INSULIN ASPART (NovoLOG) 100 UNIT/ML VIAL SQ SCH ×4 (07:56→21:26)
[2020-10-10] MEDS: ATORVASTATIN 40 MG TAB PO SCH (08:00)
[2020-10-10] MEDS: OXcarbazepine 300 MG TAB PO SCH ×2 (08:00→21:25)
[2020-10-10] MEDS: LOSARTAN 50 MG TAB PO SCH (08:00)
[2020-10-10] MEDS: DOCUSATE 100 MG CAP PO SCH ×2 (08:00→21:25)
[2020-10-10] MEDS: hydrALAZINE HCL 50 MG TAB PO SCH ×3 (08:00→21:25)
[2020-10-10] MEDS: GABAPENTIN 100 MG CAP PO SCH ×3 (08:01→21:25)
[2020-10-10] MEDS: FUROSEMIDE 40 MG TAB PO SCH (08:01)
[2020-10-10] MEDS: DONEPEZIL 10 MG TAB PO SCH (08:01)
--- NOTE | 2020-10-10 10:11 | P.PN ---
<Anson Bassett - Last Filed: 10/10/20 14:52> Subjective Progress Note Date: 10/10/20 Hospital course: Patient is an 80-year-old female with a past medical history of CAD with recent bypass, hypertension, hyperlipidemia, atrial fibrillation on Eliquis, chronic diastolic heart failure with a preserved EF of 50-55%, insulin-dependent diabetes mellitus, peripheral arterial disease, and history of left BKA. Patient presented to our facility on 10/05/20 with a chief complaint of right lower extremity pain with delayed surgical wound healing and infection with dehiscence. She was admitted under our services with consultation to vascular surgery for continued medical management. CTA was completed revealing moderate to advanced atherosclerotic disease with occlusion of the right superficial femoral artery with reconstitution of the distal popliteal artery via collateral vessels, left superficial femoral artery stent with absent contrast consistent with occlusion with collateral vessels seen, moderate stenosis of the right tibial and peroneal arteries, nonspecific small fluid adjacent to the right common femoral vasculature, additional small to moderate draining fluid co llection about the posteriomedial right proximal leg subcutaneous soft tissues with overlying wound/ulcer. Outpatient cultures done of right leg wound on 09/19/20 were positive for Ewingella americana and on 09/06/20 were positive for Corynebacterium striatum, however organism failed to thrive for sensitivity testing. Wound cultures and blood cultures obtained and pending final results at this time, currently blood cultures and wound cultures showing no growth after 48 hours. Infectious disease following, placed patient on cefepime and vancomycin pending further culture results. Physical exam: Patient seen and fully evaluated at the bedside. Patient resting at time of assessment. She continues to have confusion and yelling out. She denies having any pain at this time when asked. Showing no signs of acute distress. General: non toxic, no distress, appears at stated age. Derm: warm, dry. Postoperative Dressing to right lower extremity intact with no signs of bleeding or drainage at this time. Head: atraumatic, normocephalic, symmetric Eyes: EOMI, no lid lag, anicteric sclera Mouth: no lip lesion, mucus membranes moist Cardiovascular: S1S2 reg, no murmur, positive posterior tibial pulse bilateral, Lungs: CTA bilateral, no rhonchi, no rales , no accessory muscle use Abdominal: soft, nontender to palpation, no guarding, no appreciable organomegaly Ext: no gross muscle atrophy, no edema, no contractures. Left BKA. Neuro: CN II-XI grossly intact, no focal neuro deficits. Psych: Alert, oriented to person and place, confused to time and situation, appropriate affect. Plan of care: Right lower extremity pain with delayed surgical wound healing and infection with dehiscence -Patient was taken to OR for debridement on 10/06/20. -Hold Eliquis and may resume once cleared by vascular surgery. -Wound cultures positive for Corynebacterium striatum, sensitivity report pending. -Blood cultures no growth after 96 hours. -Infectious disease following. -Continue IV antibiotics with vancomycin and cefepime pending culture sensitivity reports. -Symptomatic care and pain management. -Lower extremity Doppler ultrasound completed and pending results. Hypertension -Monitor vital signs and continue daily medication regimen. Hyperlipidemia -Continue atorvastatin 40 mg nightly. Paroxysmal Atrial fibrillation -Hold Eliquis until clear to resume by vascular surgery. Type 2 insulin-dependent diabetes mellitus -Glycemic protocol with NovoLog sliding scale. Continue Levemir 10 units nightly. Other chronic issues include chronic diastolic heart failure with a preserved EF of 50-55%, advanced peripheral arterial disease, and history of left BKA. CODE STATUS: Full code DVT prophylaxis: Eliquis once cleared to resume by vascular surgery Discussed with: Patient and RN Anticipated discharge date: Clinical course to determine Anticipated discharge place: Clinical course to determine A total of 45 minutes was spent on the care of this complex patient more than 50% of the time was spent in counseling and care coordination. Objective - Vital Signs Vital signs: Vital Signs Temp 98.3 F 10/10/20 08:00 Pulse 78 10/10/20 08:00 Resp 20 10/10/20 08:00 BP 183/92 10/10/20 08:00 Pulse Ox 90 L 10/10/20 08:00 Intake & Output 10/09/20 10/10/20 10/10/20 18:59 06:59 18:59 Weight 81 kg 85.5 kg Other: Voiding Method Incontinent Bedside Commode Diaper Incontinent # Voids 3 1 - Labs CBC & Chem 7: 10/09/20 05:58 10/09/20 05:58 Labs: Abnormal Lab Results - Last 24 Hours (Table) 10/09/20 10/09/20 10/09/20 Range/Units 11:50 16:39 20:21 POC Glucose (mg/dL) 145 H 118 H 163 H (75-99) mg/dL 10/10/20 Range/Units 07:13 POC Glucose (mg/dL) 123 H (75-99) mg/dL Microbiology - Last 24 Hours (Table) 10/05/20 18:25 Blood Culture - Preliminary Blood No Growth after 96 hours 10/05/20 18:26 Blood Culture - Preliminary Blood No Growth after 96 hours <Ivanna Short A - Last Filed: 10/10/20 18:37> Objective - Vital Signs Vital signs: Vital Signs Temp 98.3 F 10/10/20 14:00 Pulse 66 10/10/20 14:00 Resp 17 10/10/20 14:00 BP 166/77 10/10/20 14:00 Pulse Ox 96 10/10/20 14:00 Intake & Output 10/09/20 10/10/20 10/10/20 18:59 06:59 18:59 Output Total 1700 Balance -1700 Weight 81 kg 85.5 kg Output: Urine 1700 Other: Voiding Method Incontinent Bedside Commode Diaper Incontinent # Voids 3 1 - Labs CBC & Chem 7: 10/09/20 05:58 10/09/20 05:58 Labs: Abnormal Lab Results - Last 24 Hours (Table) 10/09/20 10/10/20 10/10/20 Range/Units 20:21 07:13 11:29 POC Glucose (mg/dL) 163 H 123 H 156 H (75-99) mg/dL 10/10/20 Range/Units 16:36 POC Glucose (mg/dL) 222 H (75-99) mg/dL Microbiology - Last 24 Hours (Table) 10/05/20 18:25 Blood Culture - Preliminary Blood No Growth after 96 hours 10/05/20 18:26 Blood Culture - Preliminary Blood No Growth after 96 hours Assessment and Plan Assessment: Anson Bassett NP rendered care for this patient independently, reviewed the findings and plan as documented in the note above. I did not physically speak with or examine the patient on this date.
[2020-10-10 11:35] LABS: Glucose,Whole Blood 156 mg/dL (75-99)
[2020-10-10 16:39] LABS: Glucose,Whole Blood 222 mg/dL (75-99)
--- NOTE | 2020-10-10 16:44 | P.PN ---
Subjective Progress Note Date: 10/10/20 Patient seen and examined. Still somewhat confused and calling out although able to redirect. No complaints of pain Objective - Vital Signs Vital signs: Vital Signs Temp 98.3 F 10/10/20 14:00 Pulse 66 10/10/20 14:00 Resp 17 10/10/20 14:00 BP 166/77 10/10/20 14:00 Pulse Ox 96 10/10/20 14:00 Intake & Output 10/09/20 10/10/20 10/10/20 18:59 06:59 18:59 Output Total 1700 Balance -1700 Weight 81 kg 85.5 kg Output: Urine 1700 Other: Voiding Method Incontinent Bedside Commode Diaper Incontinent # Voids 3 1 - Exam A changes normocephalic. Heart appears regular this time. Abdomen is soft and no severe tenderness to palpation. No rebound or guarding. Left lower cavity below-knee imitation site clean, dry, intact. Right lower extremity wound clean and dry with open incision. Bandages dry - Labs CBC & Chem 7: 10/09/20 05:58 10/09/20 05:58 Labs: Abnormal Lab Results - Last 24 Hours (Table) 10/09/20 10/10/20 10/10/20 Range/Units 20:21 07:13 11:29 POC Glucose (mg/dL) 163 H 123 H 156 H (75-99) mg/dL 10/10/20 Range/Units 16:36 POC Glucose (mg/dL) 222 H (75-99) mg/dL Microbiology - Last 24 Hours (Table) 10/05/20 18:25 Blood Culture - Preliminary Blood No Growth after 96 hours 10/05/20 18:26 Blood Culture - Preliminary Blood No Growth after 96 hours Assessment and Plan Assessment: #1 peripheral arterial disease #2 right lower extremity wound dehiscence #3 nausea, vomiting, resolved Plan: Continue antibiotics per infectious disease. Erythema and swelling seems to be improving. No white count. We'll plan for follow-up and discussion regarding further revascularization versus other options. This is discussed with her daughter who seemingly understands
[2020-10-10] MEDS: ACETAMINOPHEN TAB 325 MG TAB PO PRN (18:10)
[2020-10-10 20:40] LABS: Glucose,Whole Blood 144 mg/dL (75-99)
[2020-10-10] MEDS: MONTELUKAST 10 MG TAB PO SCH (21:25)
[2020-10-10] MEDS: INSULIN DETEMIR (LEVEMIR) 100 UNIT/ML SYR SQ SCH (21:26)
[2020-10-10] MEDS: APIXABAN 5 MG TAB PO SCH (21:26)
[2020-10-11] MEDS: MORPHINE SULFATE 2 MG/ML SYRINGE IVP PRN ×2 (00:31→03:58)
[2020-10-11] MEDS: VANCOMYCIN 1,500 MG in SODIUM CHLORIDE 0.9% 250 ML IVPB SCH (05:06)
[2020-10-11 07:24] LABS: Glucose,Whole Blood 97 mg/dL (75-99)
[2020-10-11] MEDS: INSULIN ASPART (NovoLOG) 100 UNIT/ML VIAL SQ SCH ×4 (07:33→22:31)
--- NOTE | 2020-10-11 08:08 | XR ---
EXAMINATION TYPE: XR chest 1V portable DATE OF EXAM: 10/11/2020 COMPARISON: Chest x-ray dated 09/05/2020 HISTORY: Fever, abnormal chest x-ray TECHNIQUE: Single frontal view of the chest is obtained. FINDINGS: There is some improvement in the prominence the central vascularity and interstitium. No p neumothorax. Difficult to exclude effusion. Heart remains enlarged. Pacemaker stable. Aorta is dense. IMPRESSION: Suspect some improvement in patient's volume status, there are findings consistent with interstitial edema and possibly small effusions, associated atelectasis versus edema, pneumonia not e xcluded. Persistent cardiomegaly.
[2020-10-11 08:50] LABS: ALT 18 U/L (4-34); AST 31 U/L (14-36); African American GFR (CKD) >90 (>60 ml/min/1.73 sqM); Albumin 3.5 g/dL (3.5-5.0); Albumin/Globulin Ratio 1.1; Alkaline Phosphatase 135 U/L (38-126); Anion Gap 7 mmol/L; Blood Urea Nitrogen 20 mg/dL (7-17); C Reactive Protein 2.9 mg/dL (<1.0); Calcium 8.6 mg/dL (8.4-10.2); Carbon Dioxide 27 mmol/L (22-30); Chloride 108 mmol/L (98-107); Globulin 3.1 g/dL; Glucose 93 mg/dL (74-99); Non-African American GFR(CKD) 89 (>60 ml/min/1.73 sqM); Potassium 3.7 mmol/L (3.5-5.1); Sodium 142 mmol/L (137-145); Total Bilirubin 0.8 mg/dL (0.2-1.3); Total Protein 6.6 g/dL (6.3-8.2)
[2020-10-11] MEDS: hydrALAZINE HCL 50 MG TAB PO SCH ×3 (10:15→23:13)
[2020-10-11] MEDS: DOCUSATE 100 MG CAP PO SCH ×2 (10:15→22:31)
[2020-10-11] MEDS: ATORVASTATIN 40 MG TAB PO SCH (10:15)
[2020-10-11] MEDS: ACETAMINOPHEN TAB 325 MG TAB PO PRN ×3 (10:16→22:30)
[2020-10-11] MEDS: OXcarbazepine 300 MG TAB PO SCH ×2 (10:17→22:30)
[2020-10-11] MEDS: GABAPENTIN 100 MG CAP PO SCH (10:17)
[2020-10-11] MEDS: FUROSEMIDE 40 MG TAB PO SCH (10:17)
[2020-10-11] MEDS: LOSARTAN 50 MG TAB PO SCH (10:17)
[2020-10-11] MEDS: DONEPEZIL 10 MG TAB PO SCH (10:17)
[2020-10-11] MEDS: APIXABAN 5 MG TAB PO SCH ×2 (10:17→22:30)
[2020-10-11 11:35] LABS: Basophils # (A) 0.03 X 10*3/uL (0.00-0.10); Basophils % (A) 0.5 %; Eosinophils # (A) 0.31 X 10*3/uL (0.04-0.35); Eosinophils % (A) 5.1 %; HCT 30.5 % (37.2-46.3); HGB 8.6 g/dL (12.0-15.0); Lymphocytes # (A) 1.54 X 10*3/uL (0.90-5.00); Lymphocytes % (A) 25.2 %; MCH 22.9 pg (27.0-32.0); MCHC 28.2 g/dL (32.0-37.0); MCV 81.3 fL (80.0-97.0); Mean Platelet Volume 10.9 fL (9.5-12.2); Monocytes # (A) 0.89 X 10*3/uL (0.20-1.00); Monocytes % (A) 14.5 %; Neutrophils # (A) 3.33 X 10*3/uL (1.80-7.70); Neutrophils % (A) 54.4 %; Platelet Count 200 X 10*3/uL (140-440); RBC 3.75 X 10*6/uL (4.10-5.20); RDW 18.9 % (11.5-14.5); WBC 6.12 X 10*3/uL (4.50-10.00)
[2020-10-11 11:54] LABS: Glucose,Whole Blood 133 mg/dL (75-99)
--- NOTE | 2020-10-11 13:12 | P.PN ---
Subjective Progress Note Date: 10/11/20 Principal diagnosis: Wound dehiscence The patient is seen and examined sitting up in her bed. She is drowsy and confused. Nursing states she recently received some IV morphine for pain. She is alert and oriented to self only. She is currently denying any pain. She has a wound VAC to the right lower extremity with good suction. She has been afebrile. She remains on vancomycin per recommendations from infectious disease. Objective - Vital Signs Vital signs: Vital Signs Temp 97.8 F 10/11/20 08:00 Pulse 61 10/11/20 08:00 Resp 18 10/11/20 08:00 BP 170/82 10/11/20 08:00 Pulse Ox 95 10/11/20 08:00 Intake & Output 10/10/20 10/11/20 10/11/20 18:59 06:59 18:59 Output Total 1700 600 Balance -1700 -600 Weight 85 kg Output: Urine 1700 600 Other: Voiding Method Bedside Commode Diaper Incontinent # Voids 1 - Exam General appearance: The patient is drowsy, oriented 2, appears in no acute distress. HET: Head is normocephalic and atraumatic. Neck: Supple without lymphadenopathy. Trachea midline. Heart: S1 S2. Regular rate and rhythm. Lungs: Bilateral wheezes. Abdomen: Soft, nontender, nondistended. Extremities: Left lower extremity BKA. Right lower extremity wound VAC intact. Right toes wrapped with dressing intact. Extremity warm to the touch, with capillary refill Neurological: No focal deficits. Alert and oriented 2. - Labs CBC & Chem 7: 10/11/20 07:00 10/11/20 07:00 Labs: Abnormal Lab Results - Last 24 Hours (Table) 10/10/20 10/10/20 10/10/20 Range/Units 11:29 16:36 20:39 Chloride (98-107) mmol/L BUN (7-17) mg/dL POC Glucose (mg/dL) 156 H 222 H 144 H (75-99) mg/dL Alkaline Phosphatase (38-126) U/L C-Reactive Protein (<1.0) mg/dL 10/11/20 Range/Units 07:00 Chloride 108 H (98-107) mmol/L BUN 20 H (7-17) mg/dL POC Glucose (mg/dL) (75-99) mg/dL Alkaline Phosphatase 135 H (38-126) U/L C-Reactive Protein 2.9 H (<1.0) mg/dL Microbiology - Last 24 Hours (Table) 10/06/20 18:05 Anaerobic Culture - Final Leg - Right 10/05/20 18:25 Blood Culture - Preliminary Blood No Growth after 120 hours 10/05/20 18:26 Blood Culture - Preliminary Blood No Growth after 120 hours Assessment and Plan Assessment: 1. Right lower extremity wound dehiscence status post debridement 3. Peripheral arterial disease, status post recent fem-tib bypass to right lower extremity 4. Previous left BKA 5. History of chronic congestive heart failure 6. History of coronary artery disease 7. Diabetes mellitus 8. Hypertension 9. Hyperlipidemia Plan: Continue antibiotics per recommendation from infectious disease. Continue wound VAC per infectious disease orders. Patient may be discharged from a vascular surgical standpoint once otherwise medically stable. Follow-up and discussion regarding further revascularization versus other options discussed with patient and daughter. The impression and plan of care has been dictated as directed. Dr. Mathews I performed a history and examination of this patient, discussed the same with the dictator. I agree with the dictator's note ,documented as a scribe. Any additional findings or plans will be noted.
--- NOTE | 2020-10-11 13:37 | PN ---
PROGRESS NOTE DATE OF SERVICE: 10/11/2020. REASON FOR FOLLOWUP: Right leg wound dehiscence and . INTERVAL HISTORY: Patient is currently afebrile. Patient is feeling better. The patient's pain is currently controlled. Denies any chest pain or shortness of breath or cough. No abdominal pain. No diarrhea. EXAMINATION: Blood pressure 127/82. Pulse she is 95% on room air. General description is an elderly female lying in bed in no distress. Respiratory system: Unlabored breathing, clear to auscultation anteriorly. Heart S1, S2. Regular rate and rhythm. Abdomen soft, no tenderness. Right leg wound is currently covered with . LABORATORY DATA: Hemoglobin DIAGNOSTIC IMPRESSION AND PLAN: Patient with right leg wound dehiscence status post debridement. Local care to continue with wound VAC. Finishing therapy with oral doxycycline for about 7 to 10 days and close outpatient follow up with [facility]. Questions and concerns were answered. MMODL / IJN: [id number] /
--- NOTE | 2020-10-11 14:40 | P.PN ---
<Anson Bassett - Last Filed: 10/11/20 14:37> Subjective Progress Note Date: 10/11/20 Hospital course: Patient is an 80-year-old female with a past medical history of CAD with recent bypass, hypertension, hyperlipidemia, atrial fibrillation on Eliquis, chronic diastolic heart failure with a preserved EF of 50-55%, insulin-dependent diabetes mellitus, peripheral arterial disease, and history of left BKA. Patient presented to our facility on 10/05/20 with a chief complaint of right lower extremity pain with delayed surgical wound healing and infection with dehiscence. She was admitted under our services with consultation to vascular surgery for continued medical management. CTA was completed revealing moderate to advanced atherosclerotic disease with occlusion of the right superficial femoral artery with reconstitution of the distal popliteal artery via collateral vessels, left superficial femoral artery stent with absent contrast consistent with occlusion with collateral vessels seen, moderate stenosis of the right tibial and peroneal arteries, nonspecific small fluid adjacent to the right common femoral vasculature, additional small to moderate draining fluid co llection about the posteriomedial right proximal leg subcutaneous soft tissues with overlying wound/ulcer. Outpatient cultures done of right leg wound on 09/19/20 were positive for Ewingella americana and on 09/06/20 were positive for Corynebacterium striatum, however organism failed to thrive for sensitivity testing. Wound cultures and blood cultures obtained and pending final results at this time, currently blood cultures and wound cultures showing no growth after 48 hours. Infectious disease following, placed patient on cefepime and vancomycin pending further culture results. Physical exam: Patient seen and fully evaluated at the bedside. Patient resting at time of assessment. She continues to have confusion and yelling out. She denies having any pain at this time when asked. Showing no signs of acute distress. Patient's daughter reports this is patient's baseline during every hospitalization. Wound VAC is in place. Plans for discharge tomorrow morning after arrangements can be made for home wound VAC. General: non toxic, no distress, appears at stated age. Derm: warm, dry. Wound VAC in place. Head: atraumatic, normocephalic, symmetric Eyes: EOMI, no lid lag, anicteric sclera Mouth: no lip lesion, mucus membranes moist Cardiovascular: S1S2 reg, no murmur, positive posterior tibial pulse bilateral, Lungs: CTA bilateral, no rhonchi, no rales , no accessory muscle use Abdominal: soft, nontender to palpation, no guarding, no appreciable organomegaly Ext: no gross muscle atrophy, no edema, no contractures. Left BKA. Neuro: CN II-XI grossly intact, no focal neuro deficits. Psych: Alert, oriented to person and place, confused to time and situation, appropriate affect. Plan of care: Right lower extremity pain with delayed surgical wound healing and infection with dehiscence -Patient was taken to OR for debridement on 10/06/20. -DVT prophylaxis with elevated with -Wound cultures positive for Corynebacterium striatum -Blood cultures no growth after 96 hours. -Infectious disease following. -Continue IV antibiotics with vancomycin and cefepime pending culture sensitivity reports. -Symptomatic care and pain management. -Lower extremity Doppler ultrasound completed and pending results. Hypertension -Monitor vital signs and continue daily medication regimen. Hyperlipidemia -Continue atorvastatin 40 mg nightly. Paroxysmal Atrial fibrillation -Hold Eliquis until clear to resume by vascular surgery. Type 2 insulin-dependent diabetes mellitus -Glycemic protocol with NovoLog sliding scale. Continue Levemir 10 units nightly. Other chronic issues include chronic diastolic heart failure with a preserved EF of 50-55%, advanced peripheral arterial disease, and history of left BKA. CODE STATUS: Full code DVT prophylaxis: Eliquis once cleared to resume by vascular surgery Discussed with: Patient, patient's daughter and RN Anticipated discharge date: Tomorrow Anticipated discharge place: Home with home care for wound VAC A total of 45 minutes was spent on the care of this complex patient more than 50% of the time was spent in counseling and care coordination. Objective - Vital Signs Vital signs: Vital Signs Temp 97.8 F 10/11/20 08:00 Pulse 61 10/11/20 08:00 Resp 18 10/11/20 08:00 BP 170/82 10/11/20 08:00 Pulse Ox 95 10/11/20 08:00 Intake & Output 10/10/20 10/11/20 10/11/20 18:59 06:59 18:59 Output Total 1700 600 Balance -1700 -600 Weight 85 kg Output: Urine 1700 600 Other: Voiding Method Bedside Commode Diaper Incontinent # Voids 1 - Labs CBC & Chem 7: 10/11/20 07:00 10/11/20 07:00 Labs: Abnormal Lab Results - Last 24 Hours (Table) 10/10/20 10/10/20 10/11/20 Range/Units 16:36 20:39 07:00 RBC (4.10-5.20) X 10*6/uL Hgb (12.0-15.0) g/dL Hct (37.2-46.3) % MCH (27.0-32.0) pg MCHC (32.0-37.0) g/dL RDW (11.5-14.5) % Absolute Nucleated RBC (0.00-0.00) X 10*3/uL NRBC/100 WBC Diff (0.0-0.0) /100 WBCS Chloride (98-107) mmol/L BUN (7-17) mg/dL POC Glucose (mg/dL) 222 H 144 H (75-99) mg/dL Alkaline Phosphatase (38-126) U/L C-Reactive Protein (<1.0) mg/dL Procalcitonin 0.21 H (0.02-0.09) ng/mL 10/11/20 10/11/20 10/11/20 Range/Units 07:00 07:00 11:51 RBC 3.75 L (4.10-5.20) X 10*6/uL Hgb 8.6 L (12.0-15.0) g/dL Hct 30.5 L (37.2-46.3) % MCH 22.9 L (27.0-32.0) pg MCHC 28.2 L (32.0-37.0) g/dL RDW 18.9 H (11.5-14.5) % Absolute Nucleated RBC 0.02 H (0.00-0.00) X 10*3/uL NRBC/100 WBC Diff 0.3 H (0.0-0.0) /100 WBCS Chloride 108 H (98-107) mmol/L BUN 20 H (7-17) mg/dL POC Glucose (mg/dL) 133 H (75-99) mg/dL Alkaline Phosphatase 135 H (38-126) U/L C-Reactive Protein 2.9 H (<1.0) mg/dL Procalcitonin (0.02-0.09) ng/mL Microbiology - Last 24 Hours (Table) 10/06/20 18:05 Anaerobic Culture - Final Leg - Right 10/05/20 18:25 Blood Culture - Preliminary Blood No Growth after 120 hours 10/05/20 18:26 Blood Culture - Preliminary Blood No Growth after 120 hours <Ivanna Short - Last Filed: 10/11/20 14:55> Objective - Vital Signs Vital signs: Vital Signs Temp 97.8 F 10/11/20 08:00 Pulse 61 10/11/20 08:00 Resp 18 10/11/20 08:00 BP 170/82 10/11/20 08:00 Pulse Ox 95 10/11/20 08:00 Intake & Output 10/10/20 10/11/20 10/11/20 18:59 06:59 18:59 Output Total 1700 600 Balance -1700 -600 Weight 85 kg Output: Urine 1700 600 Other: Voiding Method Bedside Commode Diaper Incontinent # Voids 1 - Labs CBC & Chem 7: 10/11/20 07:00 10/11/20 07:00 Labs: Abnormal Lab Results - Last 24 Hours (Table) 10/10/20 10/10/20 10/11/20 Range/Units 16:36 20:39 07:00 RBC (4.10-5.20) X 10*6/uL Hgb (12.0-15.0) g/dL Hct (37.2-46.3) % MCH (27.0-32.0) pg MCHC (32.0-37.0) g/dL RDW (11.5-14.5) % Absolute Nucleated RBC (0.00-0.00) X 10*3/uL NRBC/100 WBC Diff (0.0-0.0) /100 WBCS Chloride (98-107) mmol/L BUN (7-17) mg/dL POC Glucose (mg/dL) 222 H 144 H (75-99) mg/dL Alkaline Phosphatase (38-126) U/L C-Reactive Protein (<1.0) mg/dL Procalcitonin 0.21 H (0.02-0.09) ng/mL 10/11/20 10/11/20 10/11/20 Range/Units 07:00 07:00 11:51 RBC 3.75 L (4.10-5.20) X 10*6/uL Hgb 8.6 L (12.0-15.0) g/dL Hct 30.5 L (37.2-46.3) % MCH 22.9 L (27.0-32.0) pg MCHC 28.2 L (32.0-37.0) g/dL RDW 18.9 H (11.5-14.5) % Absolute Nucleated RBC 0.02 H (0.00-0.00) X 10*3/uL NRBC/100 WBC Diff 0.3 H (0.0-0.0) /100 WBCS Chloride 108 H (98-107) mmol/L BUN 20 H (7-17) mg/dL POC Glucose (mg/dL) 133 H (75-99) mg/dL Alkaline Phosphatase 135 H (38-126) U/L C-Reactive Protein 2.9 H (<1.0) mg/dL Procalcitonin (0.02-0.09) ng/mL Microbiology - Last 24 Hours (Table) 10/06/20 18:05 Anaerobic Culture - Final Leg - Right 10/05/20 18:25 Blood Culture - Preliminary Blood No Growth after 120 hours 10/05/20 18:26 Blood Culture - Preliminary Blood No Growth after 120 hours Assessment and Plan Assessment: Anson Bassett NP rendered care for this patient independently, reviewed the findings and plan as documented in the note above. I did not physically speak with or examine the patient on this date. Stop gabapentin, resume home lyrica, minimize narcotics, goals of care discussion, frequent reorientation, OOB with meals
[2020-10-11 16:26] LABS: Appearance,Urine Clear (Clear); Bilirubin,Urine Negative (Negative); Blood,Urine Negative (Negative); Color,Urine Yellow; Glucose,Urine (UA) Negative (Negative); Ketones,Urine Negative (Negative); Leukocyte Esterase,Urine Negative (Negative); Nitrite,Urine Negative (Negative); Protein,Urine Trace (Negative); Urobilinogen,Urine <2.0 mg/dL (<2.0)
[2020-10-11 16:35] LABS: Glucose,Whole Blood 185 mg/dL (75-99)
[2020-10-11 20:40] LABS: Glucose,Whole Blood 175 mg/dL (75-99)
[2020-10-11] MEDS ORDERED: INSULIN DETEMIR (LEVEMIR) 100 UNIT/ML SYR SQ SCH (21:00)
[2020-10-11] MEDS: MONTELUKAST 10 MG TAB PO SCH (22:30)
[2020-10-11] MEDS: PREGABALIN 75 MG CAP PO SCH (22:30)
[2020-10-11] MEDS ORDERED: ARTIFICIAL TEARS-HYPROMELLOSE DROPS 15 ML BTL BOTH EYES PRN (23:00)
[2020-10-12] MEDS: ACETAMINOPHEN TAB 325 MG TAB PO PRN ×3 (02:43→16:12)
[2020-10-12] MEDS ORDERED: VANCOMYCIN TROUGH DUE 1 EACH MISC MISCELLANE ONE (05:00)
[2020-10-12 06:37] LABS: African American GFR (CKD) >90 (>60 ml/min/1.73 sqM); Non-African American GFR(CKD) 85 (>60 ml/min/1.73 sqM)
[2020-10-12 07:01] LABS: Glucose,Whole Blood 100 mg/dL (75-99)
[2020-10-12] MEDS: VANCOMYCIN 1,500 MG in SODIUM CHLORIDE 0.9% 250 ML IVPB SCH (07:25)
[2020-10-12] MEDS: INSULIN ASPART (NovoLOG) 100 UNIT/ML VIAL SQ SCH ×2 (08:25→16:11)
[2020-10-12 08:42] VITALS: RESP 17
[2020-10-12] MEDS: DOCUSATE 100 MG CAP PO SCH (08:50)
[2020-10-12] MEDS: DONEPEZIL 10 MG TAB PO SCH (08:51)
[2020-10-12] MEDS: OXcarbazepine 300 MG TAB PO SCH (08:51)
[2020-10-12] MEDS: APIXABAN 5 MG TAB PO SCH (08:51)
[2020-10-12] MEDS: hydrALAZINE HCL 50 MG TAB PO SCH (08:51)
[2020-10-12] MEDS: PREGABALIN 75 MG CAP PO SCH (08:51)
[2020-10-12] MEDS: LOSARTAN 50 MG TAB PO SCH (08:51)
[2020-10-12] MEDS: FUROSEMIDE 40 MG TAB PO SCH (08:51)
[2020-10-12] MEDS: ATORVASTATIN 40 MG TAB PO SCH (08:52)
--- NOTE | 2020-10-12 09:25 | P.DS ---
<Anson Bassett - Last Filed: 10/12/20 15:52> Providers Expected date of discharge: 10/12/20 Hospital Course: Discharge Diagnosis: Right lower extremity pain with delayed surgical wound healing and infection with dehiscence Hypertension Hyperlipidemia Paroxysmal Atrial fibrillation Type 2 insulin-dependent diabetes mellitus Chronic diastolic heart failure with a preserved EF of 50-55% Advanced peripheral arterial disease with history of left BKA. Hospital Course: Patient is an 80-year-old female with a past medical history of CAD with recent bypass, hypertension, hyperlipidemia, atrial fibrillation on Eliquis, chronic diastolic heart failure with a preserved EF of 50-55%, insulin-dependent diabetes mellitus, peripheral arterial disease, and history of left BKA. Hope arredondo presented to our facility on 10/05/20 with a chief complaint of right lower extremity pain with delayed surgical wound healing and infection with dehiscence. She was admitted under our services with consultation to vascular surgery and infectious disease for continued medical management. CTA was completed revealing moderate to advanced atherosclerotic disease with occlusion of the right superficial femoral artery with reconstitution of the distal popliteal artery via collateral vessels, left superficial femoral artery stent with absent contrast consistent with occlusion with collateral vessels seen, moderate stenosis of the right tibial and peroneal arteries, nonspecific small fluid adjacent to the right common femoral vasculature, additional small to moderate draining fluid collection about the posteriomedial right proximal leg subcutaneous soft tissues with overlying wound/ulcer. Wound cultures positive for Corynebacterium striatum. Blood cultures showing no growth after 144 hours. Infectious disease following. Patient was taken to the OR for debridement of right lower extremity wound on 10/06/20. Patient received IV antibiotics with vancomycin and cefepime. Wound VAC placed on 10/11/20. Patient is being discharged home at this time with her daughter on oral antibiotics doxycycline 100 mg Twice daily for 10 days. Wound VAC to remain in place. Patient being discharged home with [facility] and to follow up outpatient with her PCP, vascular surgery, and infectious disease. Physical exam: Patient seen and fully evaluated at the bedside. Patient resting at time of assessment. She is more alert this morning. Patient able to answer questions appropriately and is alert to person, place, and situation. She remains confused to time. She reports pain is controlled at this time. She denies having any headache, lightheadedness, dizziness, chest pain, palpitations, or shortness of breath. Vital signs stable, Showing no signs of acute distress. Wound VAC is in place. Patient being discharged home with daughter along with [facility]. General: non toxic, no distress, appears at stated age. Derm: warm, dry. Wound VAC in place. Head: atraumatic, normocephalic, symmetric Eyes: EOMI, no lid lag, anicteric sclera Mouth: no lip lesion, mucus membranes moist Cardiovascular: S1S2 reg, no murmur, positive posterior tibial pulse bilateral, Lungs: CTA bilateral, no rhonchi, no rales , no accessory muscle use Abdominal: soft, nontender to palpation, no guarding, no appreciable organomegaly Ext: no gross muscle atrophy, no edema, no contractures. Left BKA. Neuro: CN II-XI grossly intact, no focal neuro deficits. Psych: Alert, oriented to person and place, confused to time and situation, appropriate affect. A total of 45 minutes of time were spent preparing this complex discharge summary. Patient Condition at Discharge: Stable Plan - Discharge Summary Discharge Rx Participant: No New Discharge Prescriptions: New Doxycycline Hyclate 100 mg PO BID 10 Days #20 tab Continue Montelukast [Singulair] 10 mg PO HS #30 tab Losartan [Cozaar] 50 mg PO DAILY Cyanocobalamin (Vitamin B-12) [Vitamin B-12] 1,000 mcg PO DAILY Rosuvastatin [Crestor] 20 mg PO DAILY OXcarbazepine [Trileptal] 300 mg PO BID metFORMIN HCL [metFORMIN HCL ER] 750 mg PO BID Apixaban [Eliquis] 5 mg PO BID Albuterol Inhaler [Ventolin Hfa Inhaler] 2 puff INHALATION RT-QID PRN PRN Reason: Shortness Of Breath Tererro-3 Fatty Acids/Fish Oil [Fish Oil 1,000 mg Softgel] 1 cap PO DAILY Multivitamins, Thera [Multivitamin (formulary)] 1 tab PO DAILY Fluticasone/Salmeterol [Advair Hfa 45-21 Mcg Inhaler] 1 puff INHALATION RT- BID PRN PRN Reason: Shortness Of Breath Donepezil HCl [Aricept] 10 mg PO DAILY hydrALAZINE HCL [Apresoline] 50 mg PO TID 30 Days #90 tab Furosemide [Lasix] 40 mg PO DAILY 30 Days #30 tab Liraglutide [Victoza 3-Orlin] 1.8 mg SQ DAILY Insulin Glargine,Hum.rec.anlog [Lantus Solostar] 2 unit SQ HS Pregabalin [Lyrica] 225 mg PO BID Discharge Medication List Montelukast [Singulair] 10 mg PO HS #30 tab 09/20/16 [Rx] Cyanocobalamin (Vitamin B-12) [Vitamin B-12] 1,000 mcg PO DAILY 07/18/17 [History] Losartan [Cozaar] 50 mg PO DAILY 07/18/17 [History] OXcarbazepine [Trileptal] 300 mg PO BID 01/10/19 [History] Rosuvastatin [Crestor] 20 mg PO DAILY 01/10/19 [History] metFORMIN HCL [metFORMIN HCL ER] 750 mg PO BID 02/15/19 [History] Apixaban [Eliquis] 5 mg PO BID 06/13/19 [History] Albuterol Inhaler [Ventolin Hfa Inhaler] 2 puff INHALATION RT-QID PRN 11/19/19 [History] Donepezil HCl [Aricept] 10 mg PO DAILY 09/06/20 [History] Fluticasone/Salmeterol [Advair Hfa 45-21 Mcg Inhaler] 1 puff INHALATION RT-BID PRN 09/06/20 [History] Insulin Glargine,Hum.rec.anlog [Lantus Solostar] 2 unit SQ HS 09/06/20 [History] Liraglutide [Victoza 3-Orlin] 1.8 mg SQ DAILY 09/06/20 [History] Multivitamins, Thera [Multivitamin (formulary)] 1 tab PO DAILY 09/06/20 [History] Tererro-3 Fatty Acids/Fish Oil [Fish Oil 1,000 mg Softgel] 1 cap PO DAILY 09/06/20 [History] Pregabalin [Lyrica] 225 mg PO BID 09/06/20 [History] Furosemide [Lasix] 40 mg PO DAILY 30 Days #30 tab 09/09/20 [Rx] hydrALAZINE HCL [Apresoline] 50 mg PO TID 30 Days #90 tab 09/09/20 [Rx] Doxycycline Hyclate 100 mg PO BID 10 Days #20 tab 10/11/20 [Rx] Follow up Appointment(s)/Referral(s): Ibrahima Aguilera DO [STAFF PHYSICIAN] - 11/02/20 3:45 pm () Pippa Mathews DO [STAFF PHYSICIAN] - 1 Week [facility], [NON-STAFF] - Aisha Beck [NON-STAFF] - As Needed (commode) Jack Pleitez MD [STAFF PHYSICIAN] - 11/21/20 11:15 am (Appointment is in [facility] : (Go to Main Entrance) [address] [place] [address] ) Garfield Thurman [Primary Care Provider] - 10/14/20 12:00 pm Activity/Diet/Wound Care/Special Instructions: Diet: Heart healthy and carb consistent diet Wound Care: Local wound care to the right leg wound with a wound VAC black foam continuous pressure of 1 25 mmHg change Sunday [employer] Sr Strategy Manager is arranging for home wound vac - approval expected on 10/12/20 Pt cannot discharge before then [employer] (wound vac supplier): [phone] - please call if you have questions or issues regarding your wound vac. Special Instructions: Follow-up with Dr. Pleitez next week in the wound care center call [phone] to make an appointment. Please complete entire course of antibiotics as prescribed without missing any doses. Discharge Disposition: HOME WITH HOME HEALTH SERVICES <Ivanna Short - Last Filed: 10/12/20 18:26> Providers Date of admission: 10/05/20 20:50 Attending physician: Charu Lin MD Consults: 10/05/20 20:50 Consult Physician Urgent Consulting Provider: Ibrahima Aguilera Consult Reason/Comments: Wound dehiscence Do you want consulting provider notified?: Yes 10/06/20 07:57 Consult Physician Routine Consulting Provider: Jack Pleitez Consult Reason/Comments: delayed healing of surgical wound, infection Do you want consulting provider notified?: Yes Primary care physician: Garfield Thurman Hospital Course: Patient seen and examined independently. Patient was also seen by Anson Bassett NP and case was discussed. I am in agreement with discharge diagnosis, hospital course, and physical exam as written above and amended below. Much more awake and alert today. Denies any pain. She was asking about her wound VAC Her daughter and home health care nurse will manage this. General: non toxic, no distress, appears at stated age Derm: warm, dry Head: atraumatic, normocephalic, symmetric Eyes: EOMI, no lid lag, anicteric sclera Ext: no gross muscle atrophy, no edema, no contractures wound VAC in place. Psych: Alert, oriented, appropriate affect
[2020-10-12 10:42] VITALS: BMI 31.7
--- NOTE | 2020-10-12 11:14 | P.PN ---
Subjective Progress Note Date: 10/12/20 Principal diagnosis: Wound dehiscence The patient is seen and examined sitting up in a bedside chair. She's been afebrile. No acute changes through the night. Pain is controlled. Wound VAC is on, however will be removed and a wet-to-dry dressing will be placed for discharge to home with home healthcare services today. Objective - Vital Signs Vital signs: Vital Signs Temp 98.2 F 10/12/20 07:51 Pulse 63 10/12/20 07:51 Resp 17 10/12/20 08:00 BP 159/74 10/12/20 07:51 Pulse Ox 95 10/12/20 07:51 Intake & Output 10/11/20 10/12/20 10/12/20 18:59 06:59 18:59 Intake Total 240 Output Total 200 Balance -200 240 Weight 86.5 kg Intake: Oral 240 Output: Urine 200 Other: Voiding Method Diaper Diaper Diaper Incontinent Incontinent Incontinent External Catheter External Catheter # Voids 2 1 - Exam General appearance: The patient is drowsy, oriented 2, appears in no acute distress. HET: Head is normocephalic and atraumatic. Neck: Supple without lymphadenopathy. Trachea midline. Heart: S1 S2. Regular rate and rhythm. Lungs: Bilateral wheezes. Abdomen: Soft, nontender, nondistended. Extremities: Left lower extremity BKA. Right lower extremity wound VAC intact. Right toes wrapped with dressing intact. Extremity warm to the touch, with capillary refill Neurological: No focal deficits. Alert and oriented 2. - Labs CBC & Chem 7: 10/11/20 07:00 10/12/20 05:24 Labs: Abnormal Lab Results - Last 24 Hours (Table) 10/10/20 10/11/20 10/11/20 Range/Units 14:33 07:00 07:00 RBC 3.75 L (4.10-5.20) X 10*6/uL Hgb 8.6 L (12.0-15.0) g/dL Hct 30.5 L (37.2-46.3) % MCH 22.9 L (27.0-32.0) pg MCHC 28.2 L (32.0-37.0) g/dL RDW 18.9 H (11.5-14.5) % Absolute Nucleated RBC 0.02 H (0.00-0.00) X 10*3/uL NRBC/100 WBC Diff 0.3 H (0.0-0.0) /100 WBCS POC Glucose (mg/dL) (75-99) mg/dL Procalcitonin 0.21 H (0.02-0.09) ng/mL Urine Protein Trace H (Negative) 10/11/20 10/11/20 10/11/20 Range/Units 11:51 16:31 20:38 RBC (4.10-5.20) X 10*6/uL Hgb (12.0-15.0) g/dL Hct (37.2-46.3) % MCH (27.0-32.0) pg MCHC (32.0-37.0) g/dL RDW (11.5-14.5) % Absolute Nucleated RBC (0.00-0.00) X 10*3/uL NRBC/100 WBC Diff (0.0-0.0) /100 WBCS POC Glucose (mg/dL) 133 H 185 H 175 H (75-99) mg/dL Procalcitonin (0.02-0.09) ng/mL Urine Protein (Negative) 10/12/20 Range/Units 06:59 RBC (4.10-5.20) X 10*6/uL Hgb (12.0-15.0) g/dL Hct (37.2-46.3) % MCH (27.0-32.0) pg MCHC (32.0-37.0) g/dL RDW (11.5-14.5) % Absolute Nucleated RBC (0.00-0.00) X 10*3/uL NRBC/100 WBC Diff (0.0-0.0) /100 WBCS POC Glucose (mg/dL) 100 H (75-99) mg/dL Procalcitonin (0.02-0.09) ng/mL Urine Protein (Negative) Microbiology - Last 24 Hours (Table) 10/05/20 18:26 Blood Culture - Final Blood No Growth after 144 hours 10/05/20 18:25 Blood Culture - Final Blood No Growth after 144 hours Assessment and Plan Assessment: 1. Right lower extremity wound dehiscence status post debridement 3. Peripheral arterial disease, status post recent fem-tib bypass to right lower extremity 4. Previous left BKA 5. History of chronic congestive heart failure 6. History of coronary artery disease 7. Diabetes mellitus 8. Hypertension 9. Hyperlipidemia Plan: Continue antibiotics per recommendation from infectious disease. Continue wound VAC per infectious disease orders. Patient may be discharged from a vascular surgery standpoint. Follow-up and discussion regarding further revascularization versus other options discussed with patient and daughter. Patient to follow-up with Dr. Aguilera in 1-2 weeks. The impression and plan of care has been dictated as directed. Dr. Mathews I performed a history and examination of this patient, discussed the same with the dictator. I agree with the dictator's note ,documented as a scribe. Any additional findings or plans will be noted.
[2020-10-12 11:53] LABS: Glucose,Whole Blood 133 mg/dL (75-99)
--- NOTE | 2020-10-12 11:53 | PN ---
PROGRESS NOTE DATE OF SERVICE: October 12, 2020. REASON FOR FOLLOWUP: Right leg wound along with toe wound and cellulitis. INTERVAL HISTORY: The patient is afebrile. The patient is breathing comfortably. The patient denies having any chest pain. No shortness of breath or cough. No abdominal pain. Has been complaining of constipation, did not have any bowel movement. PHYSICAL EXAMINATION: Blood pressure 159/74, pulse of 73, temperature 98.2. She is 95% on 2 L nasal cannula. General description is an elderly female up in the chair in no distress. Respiratory system: Unlabored breathing, clear to auscultation anteriorly. Heart S1, S2. Regular rate and rhythm. Abdomen soft, no tenderness. LABS: Creatinine 0.64. Vanco level 14.1. DIAGNOSTIC IMPRESSION AND PLAN: 1. Patient with right leg wound dehiscence, status post debridement. Local care to continue with wound VAC. Short course of oral amoxicillin on discharge. 2. Right foot toes wound. Local care with Aquacel Silver dressing and close outpatient followup. MMODL / IJN: [id number] /
[2020-10-12 14:30] VITALS: BP 131/74; PULSE 75; TEMP 98.4
--- NOTE | 2020-10-13 12:59 | P.ARTDOP ---
Arterial Doppler LOWER EXTREMITY ARTERIAL DOPPLER: DATE OF SERVICE: 10/06/2020 Reason for study: Status post left BKA. Gangrene right foot. Doppler waveforms: Atypical both femorals and right popliteal. Flat line digit on the right Pulse volume recording: []. Pressure gradients: No pressures done. No signal at the right dorsalis pedis and posterior tibial. Ankle-brachial indices: []. 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 Vascular specialty assessment recommended depending on patient's clinical status..
== END 2020-10-12 16:40 | disposition home health service (06) | DRG 856 ==
LOC: EC 17:21 → 3SCARD 20:50 → 4SSUR 10-08 23:49
PROVIDERS: ADMIT Internal Medicine; ATTEND Internal Medicine
PROC: 0JBN0ZZ Excision of Right Lower Leg Subcutaneous Tissue and Fascia, Open Approach (ICD-10-PCS; principal; 2020-10-06 07:30)
DX: T81.42XA Infection following a procedure, deep incisional surgical site, initial encounter (principal); G93.41 Metabolic encephalopathy; A41.9 Sepsis, unspecified organism; T81.31XA Disruption of external operation (surgical) wound, not elsewhere classified, initial encounter; I31.9 Disease of pericardium, unspecified; I50.32 Chronic diastolic (congestive) heart failure; I48.92 Unspecified atrial flutter; L03.115 Cellulitis of right lower limb; E11.40 Type 2 diabetes mellitus with diabetic neuropathy, unspecified; I48.0 Paroxysmal atrial fibrillation; D64.9 Anemia, unspecified; G50.0 Trigeminal neuralgia; E11.51 Type 2 diabetes mellitus with diabetic peripheral angiopathy without gangrene; I11.0 Hypertensive heart disease with heart failure; J44.9 Chronic obstructive pulmonary disease, unspecified; I70.201 Unspecified atherosclerosis of native arteries of extremities, right leg; Z79.4 Long term (current) use of insulin; Z89.512 Acquired absence of left leg below knee; I25.10 Atherosclerotic heart disease of native coronary artery without angina pectoris; I44.30 Unspecified atrioventricular block; E78.5 Hyperlipidemia, unspecified; I73.00 Raynaud's syndrome without gangrene; K59.00 Constipation, unspecified; I25.2 Old myocardial infarction; L71.9 Rosacea, unspecified; R32 Unspecified urinary incontinence; M19.90 Unspecified osteoarthritis, unspecified site; Z79.01 Long term (current) use of anticoagulants; Z79.51 Long term (current) use of inhaled steroids; Z79.899 Other long term (current) drug therapy; Z87.891 Personal history of nicotine dependence; Z90.49 Acquired absence of other specified parts of digestive tract; Z87.19 Personal history of other diseases of the digestive system; Z87.42 Personal history of other diseases of the female genital tract; Z90.710 Acquired absence of both cervix and uterus; Z95.5 Presence of coronary angioplasty implant and graft; Z95.0 Presence of cardiac pacemaker; Z95.828 Presence of other vascular implants and grafts; Z98.890 Other specified postprocedural states; Z88.5 Allergy status to narcotic agent; Z88.8 Allergy status to other drugs, medicaments and biological substances; Z82.49 Family history of ischemic heart disease and other diseases of the circulatory system; Z82.3 Family history of stroke; Z83.3 Family history of diabetes mellitus
CPT/HCPCS: 36415; 71045; 75635; 80048; 80053; 80202; 81003; 82565; 83036; 83605; 83735; 84145; 85025; 85027; 85610; 85730; 86140; 87040; 87070; 87075; 87205; 93005; 93922; 94760; 96374; 96375; 99285

== ENCOUNTER 2020-12-09 16:52 | Emergency (ER) | payer MEDICARE, OTHER ==
[2020-12-09 16:59] VITALS: BP 166/88; PULSE 68; RESP 18; TEMP 98
[2020-12-09] MEDS ORDERED: SODIUM CHLORIDE 0.9% 500 ML 500 ML IV STA (17:29)
[2020-12-09] MEDS ORDERED: MORPHINE SULFATE 4 MG/ML SYRINGE IV STA (17:29)
[2020-12-09] MEDS ORDERED: ONDANSETRON 4 MG/2 ML VIAL IVP STA (17:29)
[2020-12-09 17:55] LABS: Appearance,Urine Clear (Clear); Bilirubin,Urine Negative (Negative); Blood,Urine Negative (Negative); Color,Urine Light Yellow; Glucose,Urine (UA) Negative (Negative); Hyaline Casts,Urine 1 /lpf (0-2); Ketones,Urine Negative (Negative); Leukocyte Esterase,Urine Trace (Negative); Nitrite,Urine Negative (Negative); PH, Urine 5.5 (5.0-8.0); Protein,Urine Negative (Negative); RBC,Urine <1 /hpf (0-5); Specific Gravity,Urine 1.009 (1.001-1.035); Squamous Epithelial Cell,Urine <1 /hpf (0-4); Urobilinogen,Urine <2.0 mg/dL (<2.0); WBC,Urine 2 /hpf (0-5)
[2020-12-09 17:57] LABS: Anisocytosis Slight; HCT 31.2 % (34.0-46.0); HGB 9.1 gm/dL (11.4-16.0); Hypochromasia Marked; MCH 22.4 pg (25.0-35.0); MCHC 29.1 g/dL (31.0-37.0); MCV 77.2 fL (80.0-100.0); Microcytosis Slight; Platelet Count 229 k/uL (150-450); Poikilocytosis Slight; RBC 4.04 m/uL (3.80-5.40); RDW 18.9 % (11.5-15.5)
[2020-12-09 18:04] LABS: Albumin 4.1 g/dL (3.5-5.0); Calcium 9.4 mg/dL (8.4-10.2); Potassium 4.5 mmol/L (3.5-5.1); Total Bilirubin 0.6 mg/dL (0.2-1.3); Total Protein 7.5 g/dL (6.3-8.2)
[2020-12-09 18:59] LABS: Lymphocytes # (M) 1.55 k/uL (1.0-4.8); Monocytes # (M) 0.55 k/uL (0-1.0); Neutrophils % (M) 58 %; Nucleated Red Blood Cells 0 /100 WBC (0-0); Total Cells Counted 100
--- NOTE | 2020-12-09 20:10 | ED ---
General Adult HPI - General Source: patient, RN notes reviewed Mode of arrival: ambulatory Limitations: no limitations <Cyrus Ellis - Last Filed: 12/09/20 20:26> <Lizandro Faustin - Last Filed: 12/09/20 20:46> - General Chief complaint: Abdominal Pain Stated complaint: Lt Hip/Lower Back Pain Time Seen by Provider: 12/09/20 17:03 - History of Present Illness Initial comments: 80-year-old female with a past medical history of heart failure, COPD, diabetes mellitus presents to the emergency room for a chief complaint of abdominal pain. Patient has had abdominal pain on the entire left side of her abdomen for the past several weeks to months but states he is to get better with lying on her side or certain movements. However the past day it does not get better with lying on her side. States sometimes it radiates up to her armpit. Patient states it radiates down to her hip. Patient denies any chest pain or shortness of breath. Patient denies nausea vomiting diarrhea. Denies any flank pain.Patient has no other complaints at this time including shortness of breath, chest pain, nausea or vomiting, headache, or visual changes. (Cyrus Ellsi) - Related Data Home Medications Medication Instructions Recorded Confirmed Cyanocobalamin (Vitamin B-12) 1,000 mcg PO DAILY 07/18/17 12/09/20 [Vitamin B-12] Losartan [Cozaar] 50 mg PO DAILY 07/18/17 12/09/20 Rosuvastatin [Crestor] 20 mg PO DAILY 01/10/19 12/09/20 metFORMIN HCL [Glucophage XR] 750 mg PO BID 02/15/19 12/09/20 Apixaban [Eliquis] 5 mg PO BID 06/13/19 12/09/20 Albuterol Inhaler [Ventolin Hfa 2 puff INHALATION RT-QID PRN 11/19/19 12/09/20 Inhaler] Donepezil HCl [Aricept] 10 mg PO DAILY 09/06/20 12/09/20 Fluticasone/Salmeterol [Advair Hfa 1 puff INHALATION RT-BID PRN 09/06/20 12/09/20 45-21 Mcg Inhaler] Insulin Glargine,Hum.rec.anlog 2 unit SQ HS 09/06/20 12/09/20 [Lantus Solostar Pen] Liraglutide [Victoza 3-Orlin] 1.8 mg SQ DAILY 09/06/20 12/09/20 Multivitamins, Thera [Multivitamin 1 tab PO DAILY 09/06/20 12/09/20 (formulary)] [place]-3 Fatty Acids/Fish Oil [Fish 1 cap PO DAILY 09/06/20 12/09/20 Oil 1,000 mg Softgel] Pregabalin [Lyrica] 225 mg PO BID 09/06/20 12/09/20 OXcarbazepine [Trileptal] 150 mg PO TID 12/09/20 12/09/20 hydrALAZINE HCL [Apresoline] 50 mg PO TID 12/09/20 12/09/20 Previous Rx's Medication Instructions Recorded Montelukast [Singulair] 10 mg PO HS #30 tab 09/20/16 Furosemide [Lasix] 40 mg PO DAILY 30 Days #30 tab 09/09/20 Allergies Allergy/AdvReac Type Severity Reaction Status Date / Time codeine AdvReac Nausea & Verified 12/09/20 18:33 Vomiting sitagliptin [From Janumet] AdvReac frequent Verified 12/09/20 18:33 UTI Review of Systems ROS Other: All systems not noted in ROS Statement are negative. <Cyrus Ellis P - Last Filed: 12/09/20 20:26> ROS Other: All systems not noted in ROS Statement are negative. <Lizandro Faustin - Last Filed: 12/09/20 20:46> ROS Statement: Those systems with pertinent positive or pertinent negative responses have been documented in the HPI. Past Medical History Past Medical History: Heart Failure, COPD, Diabetes Mellitus, Diabetes Mellitus, Myocardial Infarction ([place]), Myocardial Infarction ([place]), Osteoarthritis (OA), Respiratory Disorder, Skin Disorder, Vascular Disorder Additional Past Medical History / Comment(s): Trigeminal Neuralgia, Diabetic Neuropathy, [place] 1994, rosacea, Hypoxic Respiratory Failure; Raynauds; PVD; Anemia, left BKA done in 2019 Last Myocardial Infarction Date:: 1994 History of Any Multi-Drug Resistant Organisms: None Reported Past Surgical History: Appendectomy, Cholecystectomy, Heart Catheterization With Stent, Hysterectomy, Orthopedic Surgery, Pacemaker Additional Past Surgical History / Comment(s): Arthrectomy rt leg, Angioplasty, Pacemaker August 2016, left below the knee amputation, one heart stent Past Anesthesia/Blood Transfusion Reactions: No Reported Reaction Date of Last Stent Placement:: 1994 Type of Cardiac Device: Permanent Pacemaker Device Placement Date:: August 2016 Past Psychological History: No Psychological Hx Reported Smoking Status: Former smoker Past Alcohol Use History: None Reported Past Drug Use History: None Reported - Past Family History Father Family Medical History: Myocardial Infarction ([place]) Mother Family Medical History: Congestive Heart Failure (CHF), CVA/TIA, Diabetes Mellitus <Cyrus Ellis P - Last Filed: 12/09/20 20:26> General Exam Limitations: no limitations General appearance: alert, in no apparent distress Head exam: Present: atraumatic Eye exam: Present: normal appearance, PERRL, EOMI. Absent: scleral icterus ENT exam: Present: normal exam, mucous membranes moist Neck exam: Present: normal inspection, full ROM Respiratory exam: Present: normal lung sounds bilaterally. Absent: respiratory distress, wheezes Cardiovascular Exam: Present: regular rate, normal rhythm, normal heart sounds GI/Abdominal exam: Present: soft, tenderness (Left-sided midabdominal tenderness), normal bowel sounds. Absent: distended <Cyrus Ellis P - Last Filed: 12/09/20 20:26> Course Vital Signs 12/09/20 16:56 Temperature 98 F Pulse Rate 68 Respiratory 18 Rate Blood Pressure 166/88 O2 Sat by Pulse 94 L Oximetry EKG Findings - EKG Comments: EKG Findings:: A flutter, ventricular rate 74, QRS duration 84, QTC 421 <Cyrus Ellis P - Last Filed: 12/09/20 20:26> Medical Decision Making - Lab Data Result diagrams: 12/09/20 17:38 12/09/20 17:38 <Cyrus Ellis - Last Filed: 12/09/20 20:26> - Lab Data Result diagrams: 12/09/20 17:38 12/09/20 17:38 <Lizandro Faustin - Last Filed: 12/09/20 20:46> - Medical Decision Making Vitals are stable. CBC is unremarkable hemoglobin 9.1 is chronic. CMP is unremarkable. Urinalysis negative. EKG does show a flutter however patient does have a history of this. Currently anticoagulated. (Cyrus Ellis) Patient care was signed out to me by previous shift physician. Briefly, patient is a 80-year-old well-appearing female presents to the emergency department for left-sided abdominal pain. She is resting comfortably and well-appearing at the bedside. Vital signs are stable. Laboratory evaluation shows findings within stable limits. Computed tomography scan does not show any acute processes. There are some incidental findings of patient is told about. Patient is well- appearing patient will be discharged. Advised follow-up with primary care doctor. (Lizandro Faustin) - Lab Data Lab Results 12/09/20 12/09/20 12/09/20 Range/Units 17:38 17:38 17:38 WBC 5.0 (3.8-10.6) k/uL RBC 4.04 (3.80-5.40) m/uL Hgb 9.1 L (11.4-16.0) gm/dL Hct 31.2 L (34.0-46.0) % MCV 77.2 L (80.0-100.0) fL MCH 22.4 L (25.0-35.0) pg MCHC 29.1 L (31.0-37.0) g/dL RDW 18.9 H (11.5-15.5) % Plt Count 229 (150-450) k/uL MPV 10.0 Neutrophils % (Manual) 58 % Lymphocytes % (Manual) 31 % Monocytes % (Manual) 11 % Neutrophils # (Manual) 2.90 (1.3-7.7) k/uL Lymphocytes # (Manual) 1.55 (1.0-4.8) k/uL Monocytes # (Manual) 0.55 (0-1.0) k/uL Nucleated RBCs 0 (0-0) /100 WBC Manual Slide Review Performed Hypochromasia Marked Poikilocytosis Slight Anisocytosis Slight Microcytosis Slight Sodium 141 (137-145) mmol/L Potassium 4.5 (3.5-5.1) mmol/L Chloride 103 (98-107) mmol/L Carbon Dioxide 25 (22-30) mmol/L Anion Gap 13 mmol/L BUN 21 H (7-17) mg/dL Creatinine 0.88 (0.52-1.04) mg/dL Est GFR (CKD-EPI)AfAm 72 (>60 ml/min/1.73 sqM) Est GFR (CKD-EPI)NonAf 63 (>60 ml/min/1.73 sqM) Glucose 102 H (74-99) mg/dL Plasma Lactic Acid Naveen (0.7-2.0) mmol/L Calcium 9.4 (8.4-10.2) mg/dL Total Bilirubin 0.6 (0.2-1.3) mg/dL AST 39 H (14-36) U/L ALT 21 (4-34) U/L Alkaline Phosphatase 168 H (38-126) U/L Total Protein 7.5 (6.3-8.2) g/dL Albumin 4.1 (3.5-5.0) g/dL Amylase 72 (30-110) U/L Lipase 186 (23-300) U/L Urine Color Light Yellow Urine Appearance Clear (Clear) Urine pH 5.5 (5.0-8.0) Ur Specific [place] 1.009 (1.001-1.035) Urine Protein Negative (Negative) Urine Glucose (UA) Negative (Negative) Urine Ketones Negative (Negative) Urine Blood Negative (Negative) Urine Nitrite Negative (Negative) Urine Bilirubin Negative (Negative) Urine Urobilinogen <2.0 (<2.0) mg/dL Ur Leukocyte Esterase Trace H (Negative) Urine RBC <1 (0-5) /hpf Urine WBC 2 (0-5) /hpf Ur Squamous Epith Cells <1 (0-4) /hpf Hyaline Casts 1 (0-2) /lpf 12/09/20 Range/Units 17:38 WBC (3.8-10.6) k/uL RBC (3.80-5.40) m/uL Hgb (11.4-16.0) gm/dL Hct (34.0-46.0) % MCV (80.0-100.0) fL MCH (25.0-35.0) pg MCHC (31.0-37.0) g/dL RDW (11.5-15.5) % Plt Count (150-450) k/uL MPV Neutrophils % (Manual) % Lymphocytes % (Manual) % Monocytes % (Manual) % Neutrophils # (Manual) (1.3-7.7) k/uL Lymphocytes # (Manual) (1.0-4.8) k/uL Monocytes # (Manual) (0-1.0) k/uL Nucleated RBCs (0-0) /100 WBC Manual Slide Review Hypochromasia Poikilocytosis Anisocytosis Microcytosis Sodium (137-145) mmol/L Potassium (3.5-5.1) mmol/L Chloride (98-107) mmol/L Carbon Dioxide (22-30) mmol/L Anion Gap mmol/L BUN (7-17) mg/dL Creatinine (0.52-1.04) mg/dL Est GFR (CKD-EPI)AfAm (>60 ml/min/1.73 sqM) Est GFR (CKD-EPI)NonAf (>60 ml/min/1.73 sqM) Glucose (74-99) mg/dL Plasma Lactic Acid [place] 1.7 (0.7-2.0) mmol/L Calcium (8.4-10.2) mg/dL Total Bilirubin (0.2-1.3) mg/dL AST (14-36) U/L ALT (4-34) U/L Alkaline Phosphatase (38-126) U/L Total Protein (6.3-8.2) g/dL Albumin (3.5-5.0) g/dL Amylase (30-110) U/L Lipase (23-300) U/L Urine Color Urine Appearance (Clear) Urine pH (5.0-8.0) Ur Specific [place] (1.001-1.035) Urine Protein (Negative) Urine Glucose (UA) (Negative) Urine Ketones (Negative) Urine Blood (Negative) Urine Nitrite (Negative) Urine Bilirubin (Negative) Urine Urobilinogen (<2.0) mg/dL Ur Leukocyte Esterase (Negative) Urine RBC (0-5) /hpf Urine WBC (0-5) /hpf Ur Squamous Epith Cells (0-4) /hpf Hyaline Casts (0-2) /lpf Disposition <Cyrus Ellis P - Last Filed: 12/09/20 20:26> Is patient prescribed a controlled substance at d/c from ED?: No <Lizandro Faustin - Last Filed: 12/09/20 20:46> Clinical Impression: Flank pain Disposition: HOME SELF-CARE Condition: Fair Instructions (If sedation given, give patient instructions): Abdominal Pain (ED) Referrals: Garfield Thurman [Primary Care Provider] - 1-2 days
--- NOTE | 2020-12-09 20:33 | CT ---
EXAMINATION TYPE: CT abdomen pelvis w con DATE OF EXAM: 12/09/2020 COMPARISON: 10/05/2020 HISTORY: LT side abdominal pain CT DLP: 1162.6 mGycm Automated exposure control for dose reduction was used. TECHNIQUE: Helical acquisition of images was performed from the lung bases through the pelvis. CONTRAST: Performed without Oral Contrast and with IV Contrast, patient injected with 80 mL of Isovue 300. FINDINGS: LUNG BASES: Moderate right pleural effusion with associated passive atelectasis in the right lung bas e. Moderate cardiomegaly with biatrial enlargement, particularly left atrial enlargement, and promine nt pericardial calcification pattern. LIVER/GB: The liver is enlarged and lobulated and shows heterogeneous CT attenuation. Nonemergent fol low-up MRI evaluation recommended. No definite acute liver/biliary findings. PANCREAS: No significant abnormality is seen. SPLEEN: No significant abnormality is seen. ADRENALS: No significant abnormality is seen. KIDNEYS: No significant abnormality is seen. FREE AIR: No free air is visualized. RETROPERITONEAL ADENOPATHY: None visualized REPRODUCTIVE ORGANS: No significant abnormality is seen URINARY BLADDER: No significant abnormality is seen. PELVIC ADENOPATHY: None visualized. OSSEOUS STRUCTURES: No significant abnormality is seen. BOWEL: No definite acute process, but mildly distended jejunal loops are noted which are otherwise u nremarkable. Also, proximal duodenal circumferential mural thickening is noted and periduodenal indistinctness of the anterior pararenal space in that location. These nonspecific findings can be seen on the prior study 10/05/2020 and can be related to chronic changes, perhaps related to postcholecystectomy state, but the CT differential includes peptic ulcer disease. OTHER: No acute vascular finding. IMPRESSION: NO DEFINITE ACUTE PROCESS TO CORRELATE WITH PATIENT'S CURRENT SYMPTOMS. INCIDENTAL FINDINGS: 1. Moderate right pleural effusion with associated passive atelectasis in the right lung base. Moder ate cardiomegaly with biatrial enlargement. Pericardial calcification. 2. Liver findings as above.
== END 2020-12-09 21:59 | disposition home or self-care (01) ==
LOC: EC 16:52
DX: R10.9 Unspecified abdominal pain (principal); E11.40 Type 2 diabetes mellitus with diabetic neuropathy, unspecified; I50.9 Heart failure, unspecified; I25.2 Old myocardial infarction; J44.9 Chronic obstructive pulmonary disease, unspecified; M19.90 Unspecified osteoarthritis, unspecified site; Z79.01 Long term (current) use of anticoagulants; Z79.84 Long term (current) use of oral hypoglycemic drugs; Z88.5 Allergy status to narcotic agent; Z90.49 Acquired absence of other specified parts of digestive tract; Z90.710 Acquired absence of both cervix and uterus; Z95.0 Presence of cardiac pacemaker; Z87.891 Personal history of nicotine dependence; Z89.512 Acquired absence of left leg below knee; Z79.899 Other long term (current) drug therapy; Z95.5 Presence of coronary angioplasty implant and graft
CPT/HCPCS: 99284; 96374; 96375; 36415; 93005; 80053; 82150; 83605; 83690; 85025; 81001; 74177; J2270; J2405; Q9967

== ENCOUNTER 2020-12-26 18:50 | Emergency (ER) | payer MEDICARE, OTHER ==
[2020-12-26 19:17] VITALS: TEMP 98.5
[2020-12-26] MEDS ORDERED: MORPHINE SULFATE 2 MG/ML SYRINGE IVP ONE ×2 (20:16→22:56)
[2020-12-26 20:49] LABS: Anisocytosis Slight; HCT 32.6 % (34.0-46.0); Hypochromasia Marked; MCH 21.5 pg (25.0-35.0); MCHC 27.7 g/dL (31.0-37.0); MCV 77.5 fL (80.0-100.0); Mean Platelet Volume 8.6; Microcytosis Slight; Platelet Count 186 k/uL (150-450); Poikilocytosis Slight; RDW 18.5 % (11.5-15.5); WBC 4.4 k/uL (3.8-10.6)
--- NOTE | 2020-12-26 21:01 | ED ---
General Adult HPI - General Chief complaint: Back Pain/Injury Stated complaint: lt side low back pain Time Seen by Provider: 12/26/20 19:49 Source: patient, RN notes reviewed, old records reviewed Mode of arrival: EMS Limitations: physical limitation - History of Present Illness Initial comments: Patient is an 80-year-old female, with multiple comorbidities including diabetes, heart failure, COPD, left below the knee amputation, presenting to the emergency department via EMS due to left sided pain. Patient describes the pain is on the left side of her ribs extending from her armpit area down into the left side of her abdomen. She has a little bit of left-sided back pain as well. The area is tender to the touch. She was seen here a few weeks ago for similar complaint, told that it is most likely pleurisy. She has not been able to get any relief. She did go to see her doctor who stated there and "not sure what's wrong." She denies any falls or trauma. She denies any rashes to the area. She denies any abdominal pain, no nausea or vomiting, no chest pain or shortness of breath anymore than usual. She normally wears 2 L at home. She denies any fevers or chills, no lightheadedness, no dizziness. She has no further complaints. Upon arrival to the ER her vitals are stable, and the percent 2 L. - Related Data Home Medications Medication Instructions Recorded Confirmed Cyanocobalamin (Vitamin B-12) 1,000 mcg PO DAILY 07/18/17 12/09/20 [Vitamin B-12] Losartan [Cozaar] 50 mg PO DAILY 07/18/17 12/09/20 Rosuvastatin [Crestor] 20 mg PO DAILY 01/10/19 12/09/20 metFORMIN HCL [Glucophage XR] 750 mg PO BID 02/15/19 12/09/20 Apixaban [Eliquis] 5 mg PO BID 06/13/19 12/09/20 Albuterol Inhaler [Ventolin Hfa 2 puff INHALATION RT-QID PRN 11/19/19 12/09/20 Inhaler] Donepezil HCl [Aricept] 10 mg PO DAILY 09/06/20 12/09/20 Fluticasone/Salmeterol [Advair Hfa 1 puff INHALATION RT-BID PRN 09/06/20 12/09/20 45-21 Mcg Inhaler] Insulin Glargine,Hum.rec.anlog 2 unit SQ HS 09/06/20 12/09/20 [Lantus Solostar Pen] Liraglutide [Victoza 3-Orlin] 1.8 mg SQ DAILY 09/06/20 12/09/20 Multivitamins, Thera [Multivitamin 1 tab PO DAILY 09/06/20 12/09/20 (formulary)] [place]-3 Fatty Acids/Fish Oil [Fish 1 cap PO DAILY 09/06/20 12/09/20 Oil 1,000 mg Softgel] Pregabalin [Lyrica] 225 mg PO BID 09/06/20 12/09/20 OXcarbazepine [Trileptal] 150 mg PO TID 12/09/20 12/09/20 hydrALAZINE HCL [Apresoline] 50 mg PO TID 12/09/20 12/09/20 Previous Rx's Medication Instructions Recorded Montelukast [Singulair] 10 mg PO HS #30 tab 09/20/16 Furosemide [Lasix] 40 mg PO DAILY 30 Days #30 tab 09/09/20 HYDROcodone/APAP 5-325MG [[place] 1 tab PO Q6HR PRN 3 Days #12 tab 12/26/20 5-325] Allergies Allergy/AdvReac Type Severity Reaction Status Date / Time codeine AdvReac Nausea & Verified 12/09/20 18:33 Vomiting sitagliptin [From Janumet] AdvReac frequent Verified 12/09/20 18:33 UTI Review of Systems ROS Statement: Those systems with pertinent positive or pertinent negative responses have been documented in the HPI. ROS Other: All systems not noted in ROS Statement are negative. Past Medical History Past Medical History: Heart Failure, COPD, Diabetes Mellitus, Diabetes Mellitus, Myocardial Infarction ([place]), Myocardial Infarction ([place]), Osteoarthritis (OA), Respiratory Disorder, Skin Disorder, Vascular Disorder Additional Past Medical History / Comment(s): Trigeminal Neuralgia, Diabetic Neuropathy, [place] 1994, rosacea, Hypoxic Respiratory Failure; Raynauds; PVD; Anemia, left BKA done in 2019 Last Myocardial Infarction Date:: 1994 History of Any Multi-Drug Resistant Organisms: None Reported Past Surgical History: Appendectomy, Cholecystectomy, Heart Catheterization With Stent, Hysterectomy, Orthopedic Surgery, Pacemaker Additional Past Surgical History / Comment(s): Arthrectomy rt leg, Angioplasty, Pacemaker August 2016, left below the knee amputation, one heart stent Past Anesthesia/Blood Transfusion Reactions: No Reported Reaction Date of Last Stent Placement:: 1994 Type of Cardiac Device: Permanent Pacemaker Device Placement Date:: August 2016 Past Psychological History: No Psychological Hx Reported Smoking Status: Former smoker Past Alcohol Use History: None Reported Past Drug Use History: None Reported - Past Family History Father Family Medical History: Myocardial Infarction ([place]) Mother Family Medical History: Congestive Heart Failure (CHF), CVA/TIA, Diabetes Mellitus General Exam - General Exam Comments Initial Comments: GENERAL: Patient is well-developed and well-nourished. Patient is nontoxic and in no acute distress. HEAD: Atraumatic, normocephalic. EYES: Pupils equal round and reactive to light, extraocular movements intact, sclera anicteric, conjunctiva are normal. Eyelids were unremarkable. ENT: Nares patent, oropharynx clear without exudates. Moist mucous membranes. NECK: Normal range of motion, supple without lymphadenopathy or JVD. LUNGS: Unlabored respirations. Breath sounds clear to auscultation bilaterally and equal. No wheezes rales or rhonchi. HEART: Regular rate and rhythm without murmurs, rubs or gallops. ABDOMEN: Soft, mild left sided abdominal tenderness, normoactive bowel sounds. No guarding, no rebound. No masses appreciated. : Deferred MUSCULOSKELETAL: Left below knee amputation. Rest extremities with adequate strength and normal range of motion, no pitting or edema. No clubbing or cyanosis. NEUROLOGICAL: Patient is alert and oriented x 3. Motor and sensory are also intact. Cranial nerves II through XII grossly intact. Symmetrical smile. Normal speech. PSYCH: Normal mood, normal affect. SKIN: Warm, Dry, normal turgor, no rashes or lesions noted. Limitations: physical limitation Course Vital Signs 12/26/20 12/26/20 12/26/20 19:14 19:16 19:57 Temperature 98.5 F 98.5 F Pulse Rate 65 62 65 Respiratory 20 20 20 Rate Blood Pressure 153/75 153/75 161/82 O2 Sat by Pulse 98 98 100 Oximetry 12/26/20 12/27/20 22:22 00:01 Temperature Pulse Rate 71 62 Respiratory 20 18 Rate Blood Pressure 138/71 145/90 O2 Sat by Pulse 95 97 Oximetry EKG Findings - EKG Comments: EKG Findings:: Atrial flutter with variable AV block, frequent ventricular paced complexes, similar to previous on 12/09/2020. No acute ST segment elevation. Ventricular rate 67, QRS duration 76, QT 394. Medical Decision Making - Medical Decision Making Patient is an 80-year-old female here with multiple comorbidities presenting with left sided pain. She presented via EMS. Should similar complaint a couple weeks ago, was diagnosed with pleurisy. She has not been having any relief. No other complaints, vitals are stable, 98% on 2 L. No falls or trauma. Data basic labs are all within normal limits. Her urine shows no evidence of infection. Chest x-ray shows some right sided pleural effusion that is slightly increased her old exam, no obvious heart failure, no left-sided rib fracture. She was given pain control, she is resting comfortably, does feel improvement. I discussed with her that this could be still pleurisy. I will give her a short course of his pain medicine, recommended following up with her primary care. She is agreeable this and is stable for discharge. - Lab Data Result diagrams: 12/26/20 19:52 12/26/20 19:52 Lab Results 12/26/20 12/26/20 12/26/20 Range/Units 19:52 19:52 22:22 WBC 4.4 (3.8-10.6) k/uL RBC 4.20 (3.80-5.40) m/uL Hgb 9.0 L (11.4-16.0) gm/dL Hct 32.6 L (34.0-46.0) % MCV 77.5 L (80.0-100.0) fL MCH 21.5 L (25.0-35.0) pg MCHC 27.7 L (31.0-37.0) g/dL RDW 18.5 H (11.5-15.5) % Plt Count 186 (150-450) k/uL MPV 8.6 Neutrophils % (Manual) 45 % Band Neuts % (Manual) 1 % Lymphocytes % (Manual) 35 % Monocytes % (Manual) 14 % Eosinophils % (Manual) 5 % Neutrophils # (Manual) 2.00 (1.3-7.7) k/uL Lymphocytes # (Manual) 1.54 (1.0-4.8) k/uL Monocytes # (Manual) 0.62 (0-1.0) k/uL Eosinophils # (Manual) 0.22 (0-0.7) k/uL Nucleated RBCs 0 (0-0) /100 WBC Manual Slide Review Performed Large Platelets Present Polychromasia Present Hypochromasia Marked Poikilocytosis Slight Poikilocytosis (manual Present Anisocytosis Slight Anisocytosis (manual) Present Microcytosis Slight Target Cells Present Ovalocytes Present Stomatocytes Present Sodium 141 (137-145) mmol/L Potassium 4.1 (3.5-5.1) mmol/L Chloride 108 H (98-107) mmol/L Carbon Dioxide 24 (22-30) mmol/L Anion Gap 9 mmol/L BUN 23 H (7-17) mg/dL Creatinine 0.61 (0.52-1.04) mg/dL Est GFR (CKD-EPI)AfAm >90 (>60 ml/min/1.73 sqM) Est GFR (CKD-EPI)NonAf 86 (>60 ml/min/1.73 sqM) Glucose 180 H (74-99) mg/dL Calcium 8.7 (8.4-10.2) mg/dL Total Bilirubin 0.8 (0.2-1.3) mg/dL AST 38 H (14-36) U/L ALT 14 (4-34) U/L Alkaline Phosphatase 146 H (38-126) U/L Total Protein 7.2 (6.3-8.2) g/dL Albumin 3.9 (3.5-5.0) g/dL Urine Color Yellow Urine Appearance Cloudy H (Clear) Urine pH 5.5 (5.0-8.0) Ur Specific [place] 1.035 (1.001-1.035) Urine Protein 2+ H (Negative) Urine Glucose (UA) 3+ H (Negative) Urine Ketones Negative (Negative) Urine Blood Negative (Negative) Urine Nitrite Negative (Negative) Urine Bilirubin Negative (Negative) Urine Urobilinogen 3.0 (<2.0) mg/dL Ur Leukocyte Esterase Moderate H (Negative) Urine RBC 7 H (0-5) /hpf Urine WBC 13 H (0-5) /hpf Ur Squamous Epith Cells 18 H (0-4) /hpf Urine Bacteria Rare H (None) /hpf Hyaline Casts 3 H (0-2) /lpf Urine Mucus Occasional H (None) /hpf Disposition Clinical Impression: Left-sided chest wall pain Disposition: HOME SELF-CARE Condition: Stable Instructions (If sedation given, give patient instructions): Pleurisy (ED) Additional Instructions: Please return to the Emergency Department if symptoms worsen or any other concerns. Please try heat to the area or ice to the area. May take pain medicine for severe pain. Please follow-up with your primary care. Prescriptions: HYDROcodone/APAP 5-325MG [[place] 5-325] 1 tab PO Q6HR PRN 3 Days #12 tab PRN Reason: Pain Is patient prescribed a controlled substance at d/c from ED?: Yes When asked, does pt state using other controlled substances?: No If prescribed controlled substance>3 days was MAPS reviewed?: Prescribed <3 Days If opioid is for acute pain is fill amount 7 days or less?: Yes If Rx opioid, was Start Talking consent form obtained?: Yes Referrals: Garfield Thurman [Primary Care Provider] - 1-2 days Time of Disposition: 23:51
[2020-12-26 21:14] LABS: ALT 14 U/L (4-34); AST 38 U/L (14-36); African American GFR (CKD) >90 (>60 ml/min/1.73 sqM); Albumin 3.9 g/dL (3.5-5.0); Alkaline Phosphatase 146 U/L (38-126); Anion Gap 9 mmol/L; Blood Urea Nitrogen 23 mg/dL (7-17); Calcium 8.7 mg/dL (8.4-10.2); Carbon Dioxide 24 mmol/L (22-30); Chloride 108 mmol/L (98-107); Glucose 180 mg/dL (74-99); Non-African American GFR(CKD) 86 (>60 ml/min/1.73 sqM); Potassium 4.1 mmol/L (3.5-5.1); Sodium 141 mmol/L (137-145); Total Bilirubin 0.8 mg/dL (0.2-1.3); Total Protein 7.2 g/dL (6.3-8.2)
[2020-12-26 21:21] LABS: Band Neutrophils % 1 %; Eosinophils # (M) 0.22 k/uL (0-0.7); Lymphocytes # (M) 1.54 k/uL (1.0-4.8); Monocytes # (M) 0.62 k/uL (0-1.0); Neutrophils % (M) 45 %; Nucleated Red Blood Cells 0 /100 WBC (0-0); Total Cells Counted 100
[2020-12-26 21:23] LABS: Anisocytosis (M) Present
[2020-12-26 21:24] LABS: Large Platelets Present; Ovalocytes Present; Poikilocytosis (M) Present; Polychromasia Present; Stomatocytes Present; Target Cells Present
--- NOTE | 2020-12-26 21:44 | XR ---
EXAMINATION TYPE: XR ribs LT w pa chest xray DATE OF EXAM: 12/26/2020 COMPARISON: 10/11/2020 HISTORY: Chest pain TECHNIQUE: 5 views FINDINGS: There is blunting right costophrenic angle. Heart is enlarged. There is no definite heart f ailure. There is left axillary pacemaker. There are chest leads. There is no left side pleural effusi on or pneumothorax. I see no evidence of left-sided rib fracture. IMPRESSION: There is right pleural effusion that is increased compared to old exam. No obvious heart failure. No evidence of left-sided rib fracture.
[2020-12-26 22:57] LABS: Appearance,Urine Cloudy (Clear); Bacteria,Urine Rare /hpf; Bilirubin,Urine Negative (Negative); Blood,Urine Negative (Negative); Color,Urine Yellow; Glucose,Urine (UA) 3+ (Negative); Hyaline Casts,Urine 3 /lpf (0-2); Ketones,Urine Negative (Negative); Leukocyte Esterase,Urine Moderate (Negative); Mucus,Urine Occasional /hpf; Nitrite,Urine Negative (Negative); PH, Urine 5.5 (5.0-8.0); Protein,Urine 2+ (Negative); RBC,Urine 7 /hpf (0-5); Specific Gravity,Urine 1.035 (1.001-1.035); Squamous Epithelial Cell,Urine 18 /hpf (0-4); WBC,Urine 13 /hpf (0-5)
[2020-12-27 00:02] VITALS: BP 145/90; PULSE 62; RESP 18
== END 2020-12-27 00:55 | disposition home or self-care (01) ==
LOC: EC 18:50
DX: R07.89 Other chest pain (principal); M54.5 Low back pain; R07.81 Pleurodynia; J44.9 Chronic obstructive pulmonary disease, unspecified; I50.9 Heart failure, unspecified; E11.9 Type 2 diabetes mellitus without complications; I25.2 Old myocardial infarction; M19.90 Unspecified osteoarthritis, unspecified site; Z87.891 Personal history of nicotine dependence; Z79.4 Long term (current) use of insulin; Z79.01 Long term (current) use of anticoagulants; Z79.51 Long term (current) use of inhaled steroids
CPT/HCPCS: 36415; 80053; 85025; 81001; 87086; 71101; 99285; 96374; 96376; J2270

== ENCOUNTER 2021-01-12 03:29 | Inpatient (IN) | payer MEDICARE, OTHER ==
[2021-01-12 03:33] LABS: Glucose,Whole Blood 77 mg/dL (75-99)
[2021-01-12] MEDS ORDERED: SODIUM CHLORIDE 0.9% 1,000 ML IV STA (03:38)
--- NOTE | 2021-01-12 03:39 | ED ---
Fall HPI - General Chief Complaint: Fall Stated Complaint: Fall Time Seen by Provider: 01/12/21 03:34 Source: patient, EMS, RN notes reviewed, old records reviewed, Caregiver Mode of arrival: EMS Limitations: altered mental status, physical limitation - History of Present Illness Initial Comments: This is 80 year-old female DF status post fall fluid. Patient has significant dementia patient unable to provide significantly accurate history. Unsure of cause a patient's fall. History obtained from patient and EMS MD Complaint: fall -: unknown Fall From: standing When Fall Occurred: unsure Fall Witnessed: no Place Fall Occurred: home Loss of Consciousness: none Prolonged Down Time?: no Symptoms Prior to Fall: none Location: face, neck, chest, back Severity: moderate Severity scale (1-10): 3 Quality: burning Context: tripped/slipped Associated Symptoms: denies - Related Data Home Medications Medication Instructions Recorded Confirmed Cyanocobalamin (Vitamin B-12) 1,000 mcg PO DAILY 07/18/17 01/12/21 [Vitamin B-12] Losartan [Cozaar] 50 mg PO DAILY 07/18/17 01/12/21 Rosuvastatin [Crestor] 20 mg PO DAILY 01/10/19 01/12/21 metFORMIN HCL [Glucophage XR] 750 mg PO BID 02/15/19 01/12/21 Apixaban [Eliquis] 5 mg PO BID 06/13/19 01/12/21 Albuterol Inhaler [Ventolin Hfa 2 puff INHALATION RT-QID PRN 11/19/19 01/12/21 Inhaler] Donepezil HCl [Aricept] 10 mg PO DAILY 09/06/20 01/12/21 Fluticasone/Salmeterol [Advair Hfa 1 puff INHALATION RT-BID PRN 09/06/20 01/12/21 45-21 Mcg Inhaler] Insulin Glargine,Hum.rec.anlog 2 unit SQ HS 09/06/20 01/12/21 [Lantus Solostar Pen] Liraglutide [Victoza 3-Orlin] 1.8 mg SQ DAILY 09/06/20 01/12/21 Multivitamins, Thera [Multivitamin 1 tab PO DAILY 09/06/20 01/12/21 (formulary)] Mcgregor-3 Fatty Acids/Fish Oil [Fish 1 cap PO DAILY 09/06/20 01/12/21 Oil 1,000 mg Softgel] Pregabalin [Lyrica] 225 mg PO BID 09/06/20 01/12/21 OXcarbazepine [Trileptal] 300 mg PO BID 12/09/20 01/12/21 hydrALAZINE HCL [Apresoline] 50 mg PO TID 12/09/20 01/12/21 Simethicone [Gas-X] 125 mg PO TID PRN 01/12/21 01/12/21 Previous Rx's Medication Instructions Recorded Montelukast [Singulair] 10 mg PO HS #30 tab 09/20/16 Furosemide [Lasix] 40 mg PO DAILY 30 Days #30 tab 09/09/20 HYDROcodone/APAP 5-325MG [[place] 1 tab PO Q6HR PRN 3 Days #12 tab 12/26/20 5-325] Allergies Allergy/AdvReac Type Severity Reaction Status Date / Time codeine AdvReac Nausea & Verified 01/12/21 03:37 Vomiting sitagliptin [From Janumet] AdvReac frequent Verified 01/12/21 03:37 UTI Review of Systems ROS Statement: Those systems with pertinent positive or pertinent negative responses have been documented in the HPI. ROS Other: All systems not noted in ROS Statement are negative. Past Medical History Past Medical History: Heart Failure, COPD, Diabetes Mellitus, Diabetes Mellitus, Myocardial Infarction (MS), Myocardial Infarction (MS), Osteoarthritis (OA), Respiratory Disorder, Skin Disorder, Vascular Disorder Additional Past Medical History / Comment(s): Trigeminal Neuralgia, Diabetic Neuropathy, MS 1994, rosacea, Hypoxic Respiratory Failure; Raynauds; PVD; Anem ia, left BKA done in 2019 Last Myocardial Infarction Date:: 1994 History of Any Multi-Drug Resistant Organisms: None Reported Past Surgical History: Appendectomy, Cholecystectomy, Heart Catheterization With Stent, Hysterectomy, Orthopedic Surgery, Pacemaker Additional Past Surgical History / Comment(s): Arthrectomy rt leg, Angioplasty, Pacemaker August 2016, left below the knee amputation, one heart stent Past Anesthesia/Blood Transfusion Reactions: No Reported Reaction Date of Last Stent Placement:: 1994 Type of Cardiac Device: Permanent Pacemaker Device Placement Date:: August 2016 Past Psychological History: No Psychological Hx Reported Smoking Status: Former smoker Past Alcohol Use History: None Reported Past Drug Use History: None Reported - Past Family History Father Family Medical History: Myocardial Infarction (MS) Mother Family Medical History: Congestive Heart Failure (CHF), CVA/TIA, Diabetes M ellitus General Exam Limitations: no limitations General appearance: alert, in no apparent distress Head exam: Present: atraumatic, normocephalic, normal inspection Eye exam: Present: normal appearance, PERRL, EOMI. Absent: scleral icterus, conjunctival injection, periorbital swelling ENT exam: Present: normal exam, mucous membranes moist Neck exam: Present: normal inspection. Absent: tenderness, meningismus, lymphadenopathy Respiratory exam: Present: normal lung sounds bilaterally. Absent: respiratory distress, wheezes, rales, rhonchi, stridor Cardiovascular Exam: Present: regular rate, normal rhythm, normal heart sounds. Absent: systolic murmur, diastolic murmur, rubs, gallop, clicks GI/Abdominal exam: Present: soft, normal bowel sounds. Absent: distended, tenderness, guarding, rebound, rigid Extremities exam: Present: normal inspection, full ROM, normal capillary refill. Absent: tenderness, pedal edema, joint swelling, calf tenderness Back exam: Present: normal inspection Neurological exam: Present: alert, oriented X3, CN II-XII intact Psychiatric exam: Present: normal affect, normal mood Skin exam: Present: warm, dry, intact, normal color. 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 Patient also found of elevated heart rate non-ST elevated MS. Patient be admitted for cardiac evaluation and symptom management - Lab Data Result diagrams: 01/17/21 10:20 01/17/21 10:20 Lab Results 01/12/21 01/12/21 01/12/21 Range/Units 03:32 03:42 03:42 WBC 8.5 (3.8-10.6) k/uL RBC 4.28 (3.80-5.40) m/uL Hgb 9.0 L (11.4-16.0) gm/dL Hct 32.2 L (34.0-46.0) % MCV 75.2 L (80.0-100.0) fL MCH 20.9 L (25.0-35.0) pg MCHC 27.9 L (31.0-37.0) g/dL RDW 18.8 H (11.5-15.5) % Plt Count 207 (150-450) k/uL MPV 8.3 Neutrophils % 74 % Lymphocytes % 13 % Monocytes % 9 % Eosinophils % 1 % Basophils % 0 % Neutrophils # 6.3 (1.3-7.7) k/uL Lymphocytes # 1.1 (1.0-4.8) k/uL Monocytes # 0.7 (0-1.0) k/uL Eosinophils # 0.1 (0-0.7) k/uL Basophils # 0.0 (0-0.2) k/uL Hypochromasia Marked Poikilocytosis Slight Anisocytosis Slight Microcytosis Moderate PT 13.3 H (9.0-12.0) sec INR 1.3 H (<1.2) APTT 23.6 (22.0-30.0) sec Sodium (137-145) mmol/L Potassium (3.5-5.1) mmol/L Chloride (98-107) mmol/L Carbon Dioxide (22-30) mmol/L Anion Gap mmol/L BUN (7-17) mg/dL Creatinine (0.52-1.04) mg/dL Est GFR (CKD-EPI)AfAm (>60 ml/min/1.73 sqM) Est GFR (CKD-EPI)NonAf (>60 ml/min/1.73 sqM) Glucose (74-99) mg/dL POC Glucose (mg/dL) 77 (75-99) mg/dL POC Glu Organizational Effectiveness Director ID Caleb Roman Lactic Ac Sepsis Rflx Plasma Lactic Acid Naveen (0.7-2.0) mmol/L Calcium (8.4-10.2) mg/dL Total Bilirubin (0.2-1.3) mg/dL AST (14-36) U/L ALT (4-34) U/L Alkaline Phosphatase (38-126) U/L Troponin I (0.000-0.034) ng/mL Total Protein (6.3-8.2) g/dL Albumin (3.5-5.0) g/dL Urine Color Urine Appearance (Clear) Urine pH (5.0-8.0) Ur Specific [place] (1.001-1.035) Urine Protein (Negative) Urine Glucose (UA) (Negative) Urine Ketones (Negative) Urine Blood (Negative) Urine Nitrite (Negative) Urine Bilirubin (Negative) Urine Urobilinogen (<2.0) mg/dL Ur Leukocyte Esterase (Negative) Urine RBC (0-5) /hpf Urine WBC (0-5) /hpf Ur Squamous Epith Cells (0-4) /hpf Urine Bacteria (None) /hpf Cellular Casts (0) /lpf Hyaline Casts (0-2) /lpf Granular Casts (0) /lpf Urine Mucus (None) /hpf Urine Opiates Screen (NotDetected) Ur Oxycodone Screen (NotDetected) Urine Methadone Screen (NotDetected) Ur Propoxyphene Screen (NotDetected) Ur Barbiturates Screen (NotDetected) U Tricyclic Antidepress (NotDetected) Ur Phencyclidine Scrn (NotDetected) Ur Amphetamines Screen (NotDetected) U Methamphetamines Scrn (NotDetected) U Benzodiazepines Scrn (NotDetected) Urine Cocaine Screen (NotDetected) U Marijuana (THC) Screen (NotDetected) Serum Alcohol mg/dL Blood Type Blood Type Recheck Bld Type Recheck Status Spec Expiration Date 01/12/21 01/12/21 01/12/21 Range/Units 03:42 03:42 03:42 WBC (3.8-10.6) k/uL RBC (3.80-5.40) m/uL Hgb (11.4-16.0) gm/dL Hct (34.0-46.0) % MCV (80.0-100.0) fL MCH (25.0-35.0) pg MCHC (31.0-37.0) g/dL RDW (11.5-15.5) % Plt Count (150-450) k/uL MPV Neutrophils % % Lymphocytes % % Monocytes % % Eosinophils % % Basophils % % Neutrophils # (1.3-7.7) k/uL Lymphocytes # (1.0-4.8) k/uL Monocytes # (0-1.0) k/uL Eosinophils # (0-0.7) k/uL Basophils # (0-0.2) k/uL Hypochromasia Poikilocytosis Anisocytosis Microcytosis PT (9.0-12.0) sec INR (<1.2) APTT (22.0-30.0) sec Sodium 136 L (137-145) mmol/L Potassium 4.5 (3.5-5.1) mmol/L Chloride 104 (98-107) mmol/L Carbon Dioxide 22 (22-30) mmol/L Anion Gap 10 mmol/L BUN 56 H (7-17) mg/dL Creatinine 1.19 H (0.52-1.04) mg/dL Est GFR (CKD-EPI)AfAm 50 (>60 ml/min/1.73 sqM) Est GFR (CKD-EPI)NonAf 43 (>60 ml/min/1.73 sqM) Glucose 123 H (74-99) mg/dL POC Glucose (mg/dL) (75-99) mg/dL POC Glu Organizational Effectiveness Director ID Lactic Ac Sepsis Rflx Plasma Lactic Acid [place] (0.7-2.0) mmol/L Calcium 8.4 (8.4-10.2) mg/dL Total Bilirubin 0.8 (0.2-1.3) mg/dL AST 46 H (14-36) U/L ALT 22 (4-34) U/L Alkaline Phosphatase 189 H (38-126) U/L Troponin I 3.290 H* (0.000-0.034) ng/mL Total Protein 7.1 (6.3-8.2) g/dL Albumin 3.8 (3.5-5.0) g/dL Urine Color Yellow Urine Appearance Cloudy H (Clear) Urine pH 5.5 (5.0-8.0) Ur Specific [place] 1.018 (1.001-1.035) Urine Protein 1+ H (Negative) Urine Glucose (UA) Negative (Negative) Urine Ketones Negative (Negative) Urine Blood Negative (Negative) Urine Nitrite Negative (Negative) Urine Bilirubin Negative (Negative) Urine Urobilinogen <2.0 (<2.0) mg/dL Ur Leukocyte Esterase Negative (Negative) Urine RBC 2 (0-5) /hpf Urine WBC 21 H (0-5) /hpf Ur Squamous Epith Cells 1 (0-4) /hpf Urine Bacteria Rare H (None) /hpf Cellular Casts 2 (0) /lpf Hyaline Casts 30 H (0-2) /lpf Granular Casts 28 (0) /lpf Urine Mucus Few H (None) /hpf Urine Opiates Screen Not Detected (NotDetected) Ur Oxycodone Screen Not Detected (NotDetected) Urine Methadone Screen Not Detected (NotDetected) Ur Propoxyphene Screen Not Detected (NotDetected) Ur Barbiturates Screen Not Detected (NotDetected) U Tricyclic Antidepress Not Detected (NotDetected) Ur Phencyclidine Scrn Not Detected (NotDetected) Ur Amphetamines Screen Not Detected (NotDetected) U Methamphetamines Scrn Not Detected (NotDetected) U Benzodiazepines Scrn Not Detected (NotDetected) Urine Cocaine Screen Not Detected (NotDetected) U Marijuana (THC) Screen Not Detected (NotDetected) Serum Alcohol <10 mg/dL Blood Type Blood Type Recheck Bld Type Recheck Status Spec Expiration Date 01/12/21 01/12/21 01/12/21 Range/Units 03:42 03:48 05:10 WBC (3.8-10.6) k/uL RBC (3.80-5.40) m/uL Hgb (11.4-16.0) gm/dL Hct (34.0-46.0) % MCV (80.0-100.0) fL MCH (25.0-35.0) pg MCHC (31.0-37.0) g/dL RDW (11.5-15.5) % Plt Count (150-450) k/uL MPV Neutrophils % % Lymphocytes % % Monocytes % % Eosinophils % % Basophils % % Neutrophils # (1.3-7.7) k/uL Lymphocytes # (1.0-4.8) k/uL Monocytes # (0-1.0) k/uL Eosinophils # (0-0.7) k/uL Basophils # (0-0.2) k/uL Hypochromasia Poikilocytosis Anisocytosis Microcytosis PT (9.0-12.0) sec INR (<1.2) APTT (22.0-30.0) sec Sodium (137-145) mmol/L Potassium (3.5-5.1) mmol/L Chloride (98-107) mmol/L Carbon Dioxide (22-30) mmol/L Anion Gap mmol/L BUN (7-17) mg/dL Creatinine (0.52-1.04) mg/dL Est GFR (CKD-EPI)AfAm (>60 ml/min/1.73 sqM) Est GFR (CKD-EPI)NonAf (>60 ml/min/1.73 sqM) Glucose (74-99) mg/dL POC Glucose (mg/dL) (75-99) mg/dL POC Glu Organizational Effectiveness Director ID Lactic Ac Sepsis Rflx Y Plasma Lactic Acid [place] 2.2 H* (0.7-2.0) mmol/L Calcium (8.4-10.2) mg/dL Total Bilirubin (0.2-1.3) mg/dL AST (14-36) U/L ALT (4-34) U/L Alkaline Phosphatase (38-126) U/L Troponin I (0.000-0.034) ng/mL Total Protein (6.3-8.2) g/dL Albumin (3.5-5.0) g/dL Urine Color Urine Appearance (Clear) Urine pH (5.0-8.0) Ur Specific [place] (1.001-1.035) Urine Protein (Negative) Urine Glucose (UA) (Negative) Urine Ketones (Negative) Urine Blood (Negative) Urine Nitrite (Negative) Urine Bilirubin (Negative) Urine Urobilinogen (<2.0) mg/dL Ur Leukocyte Esterase (Negative) Urine RBC (0-5) /hpf Urine WBC (0-5) /hpf Ur Squamous Epith Cells (0-4) /hpf Urine Bacteria (None) /hpf Cellular Casts (0) /lpf Hyaline Casts (0-2) /lpf Granular Casts (0) /lpf Urine Mucus (None) /hpf Urine Opiates Screen (NotDetected) Ur Oxycodone Screen (NotDetected) Urine Methadone Screen (NotDetected) Ur Propoxyphene Screen (NotDetected) Ur Barbiturates Screen (NotDetected) U Tricyclic Antidepress (NotDetected) Ur Phencyclidine Scrn (NotDetected) Ur Amphetamines Screen (NotDetected) U Methamphetamines Scrn (NotDetected) U Benzodiazepines Scrn (NotDetected) Urine Cocaine Screen (NotDetected) U Marijuana (THC) Screen (NotDetected) Serum Alcohol mg/dL Blood Type O Positive Blood Type Recheck O Pos Bld Type Recheck Status No Spec Expiration Date 01/15/20212341 - EKG Data -: EKG Interpreted by Me (EKG shows a flutter 76 QRS 86 QTc 402) - Radiology Data Radiology results: report reviewed (CT brain C-spine chest and pelvis x-ray are negative for acute disease), image reviewed Disposition Clinical Impression: Fall, NSTEMI (non-ST elevated myocardial infarction), Atrial flutter, Altered mental status, Dementia Disposition: ADMITTED IP TO THIS HOSP Condition: Poor Is patient prescribed a controlled substance at d/c from ED?: No
[2021-01-12 04:09] LABS: Anisocytosis Slight; Basophils % (A) 0 %; Eosinophils # (A) 0.1 k/uL (0-0.7); Eosinophils % (A) 1 %; HCT 32.2 % (34.0-46.0); Hypochromasia Marked; Lymphocytes # (A) 1.1 k/uL (1.0-4.8); Lymphocytes % (A) 13 %; MCH 20.9 pg (25.0-35.0); MCHC 27.9 g/dL (31.0-37.0); MCV 75.2 fL (80.0-100.0); Mean Platelet Volume 8.3; Microcytosis Moderate; Monocytes # (A) 0.7 k/uL (0-1.0); Monocytes % (A) 9 %; Neutrophils # (A) 6.3 k/uL (1.3-7.7); Neutrophils % (A) 74 %; Platelet Count 207 k/uL (150-450); Poikilocytosis Slight; RBC 4.28 m/uL (3.80-5.40); RDW 18.8 % (11.5-15.5); WBC 8.5 k/uL (3.8-10.6)
[2021-01-12 04:10] LABS: INR 1.3 (<1.2); Partial Thromboplastin Time 23.6 sec (22.0-30.0); Prothrombin Time 13.3 sec (9.0-12.0)
[2021-01-12 04:16] LABS: ALT 22 U/L (4-34); AST 46 U/L (14-36); African American GFR (CKD) 50 (>60 ml/min/1.73 sqM); Albumin 3.8 g/dL (3.5-5.0); Alcohol <10 mg/dL; Alkaline Phosphatase 189 U/L (38-126); Anion Gap 10 mmol/L; Blood Urea Nitrogen 56 mg/dL (7-17); Calcium 8.4 mg/dL (8.4-10.2); Carbon Dioxide 22 mmol/L (22-30); Chloride 104 mmol/L (98-107); Glucose 123 mg/dL (74-99); Non-African American GFR(CKD) 43 (>60 ml/min/1.73 sqM); Sodium 136 mmol/L (137-145); Total Bilirubin 0.8 mg/dL (0.2-1.3); Total Protein 7.1 g/dL (6.3-8.2)
[2021-01-12 04:17] LABS: Potassium 4.5 mmol/L (3.5-5.1)
--- NOTE | 2021-01-12 04:22 | CT ---
EXAMINATION TYPE: CT brain rosa isela wo con DATE OF EXAM: 01/12/2021 COMPARISON: CT brain 05/19/2019 HISTORY: fall CT DLP: 1561.9 mGycm Automated exposure control for dose reduction was used. There is some cerebral cortical atrophy. There is no mass effect nor midline shift. There is no sign of intracranial hemorrhage. Calvarium is intact. There is normal aeration of the mastoid sinuses. Cervical vertebra have normal alignment. There is some degenerative disc space narrowing at C5-6 with spurring of the endplates. Facet joints are intact. There is multilevel facet arthropathy. There is no evidence of cervical spine fracture. The skull base is intact. IMPRESSION: Mild cerebral atrophy. No acute intracranial abnormality. No change. Mild cervical spondylotic changes. No fracture.
--- NOTE | 2021-01-12 04:24 | XR ---
EXAMINATION TYPE: XR pelvis AP view DATE OF EXAM: 01/12/2021 COMPARISON: NONE HISTORY: Fall. Pain. TECHNIQUE: Single view FINDINGS: Pelvic ring appears intact. Proximal femurs are intact. There is a stent in the left femora l artery. There are stents in the right iliac artery. Fecal pattern is normal. Sacroiliac joints are intact. IMPRESSION: No acute abnormality the pelvis. No fracture.
--- NOTE | 2021-01-12 04:26 | XR ---
EXAMINATION TYPE: XR chest 1V portable DATE OF EXAM: 01/12/2021 COMPARISON: 12/26/2020 HISTORY: Pain. Fall. TECHNIQUE: Single view FINDINGS: There is blunting of the costophrenic angles and more on the right side. There is probably vascular congestion. There is infiltrate right lower lobe. There is left axillary pacemaker. Heart is enlarged. Thoracic aorta is atheromatous. I see no rib fracture. There is no sign of a pneumothorax. IMPRESSION: Congestive heart failure with pleural effusions. Right lower lobe pneumonia. Pelvic conge stion increased compared to last exam.
[2021-01-12 04:45] LABS: Appearance,Urine Cloudy (Clear); Bacteria,Urine Rare /hpf; Bilirubin,Urine Negative (Negative); Blood,Urine Negative (Negative); Cellular Casts,Urine 2 /lpf (0); Color,Urine Yellow; Glucose,Urine (UA) Negative (Negative); Granular Casts,Urine 28 /lpf (0); Hyaline Casts,Urine 30 /lpf (0-2); Ketones,Urine Negative (Negative); Leukocyte Esterase,Urine Negative (Negative); Mucus,Urine Few /hpf; Nitrite,Urine Negative (Negative); PH, Urine 5.5 (5.0-8.0); Protein,Urine 1+ (Negative); RBC,Urine 2 /hpf (0-5); Specific Gravity,Urine 1.018 (1.001-1.035); Squamous Epithelial Cell,Urine 1 /hpf (0-4); Urobilinogen,Urine <2.0 mg/dL (<2.0); WBC,Urine 21 /hpf (0-5)
[2021-01-12 04:46] LABS: Amphetamine Screen,Urine Not Detected (NotDetected); Barbiturate Screen,Urine Not Detected (NotDetected); Benzodiazepines Screen,Urine Not Detected (NotDetected); Cocaine Screen,Urine Not Detected (NotDetected); Methadone Screen, Urine Not Detected (NotDetected); Opiate Screen,Urine Not Detected (NotDetected); Oxycodone Screen, Urine Not Detected (NotDetected); Phencyclidine Screen,Urine Not Detected (NotDetected); Tricyclic Antidepressant,Urine Not Detected (NotDetected); Urn Cannabinoid Scrn Not Detected (NotDetected)
[2021-01-12] MEDS ORDERED: MORPHINE SULFATE 4 MG/ML SYRINGE IV PRN (05:11)
[2021-01-12] MEDS ORDERED: NITROGLYCERIN SL TABS 0.4 MG TAB SUBLINGUAL PRN (05:11)
[2021-01-12] MEDS ORDERED: HEPARIN SODIUM 1,000 UN/ML (10ML VL) IV PRN (08:45)
[2021-01-12] MEDS ORDERED: METOPROLOL TARTRATE 12.5 MG TAB PO SCH (09:00)
[2021-01-12 09:35] LABS: INR 1.3 (<1.2); Partial Thromboplastin Time 23.9 sec (22.0-30.0); Prothrombin Time 13.3 sec (9.0-12.0)
[2021-01-12] MEDS: HEPARIN SOD,PORK IN 0.45% NACL 25,000 UNIT in 0.45% NACL 1 250ML.BAG IV SCH (09:54)
[2021-01-12] MEDS: ATORVASTATIN 80 MG TAB PO SCH (09:54)
[2021-01-12] MEDS ORDERED: ALBUTEROL NEBULIZED 2.5 MG/3 ML INHALATION PRN (10:07)
[2021-01-12] MEDS ORDERED: SYMBICORT 80-4.5 MCG INHALER INHALATION PRN (10:07)
--- NOTE | 2021-01-12 10:23 | P.CRDCN ---
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 Lovell in the past. She used to follow with Dr. Gupta in the office, she has seen a general production worker at [facility]. We have been asked to see in consultation for NSTEMI Patient is seen and examined in the emergency department, she is slightly confused. Patient lives with her daughter currently. Spoke with the patient's daughter, Caridad. Patient's daughter states the patient has been having more confusion, generalized weakness, decreased PO intake, and looking more "sleepy" over the past week. She states her mother is usually more active, able to do things around the house, take her own medications and feed herself. Specifically on Sunday, the daughter noticed the patient more lethargic, sleeping in her chair, she checked on her a few times. When the daughter was in another room, she heard a loud thud, and found her mother on the ground. Patient was brought to the emergency department. She denies her mother complaining of chest pain, shortness of breath, lightheadedness, dizziness or palpitations. However she states that her mom has been having increased confusion and unable to get an adequate answer from her. It is unclear if patient has had coronary artery disease with stenting in the past, daughter is not aware of where stents have been placed. DIAGNOSTICS EKG reveals atrial fibrillation, heart rate 77, Twave inversions in inferior lateral leads Most recent echocardiogram 08/2020 revealed EF of 5055 percent, moderate concentric left ventricular hypertrophy, LA severely dilated, mild to moderate mitral regurgitation, mild tricuspid regurgitation. Telemetry tracings indicate atrial fibrillation with controlled ventricular rates Chest xray congestive heart failure with pleural effusions. Right lower lobe pneumonia. Pelvic congestion increased compared to last exam. Laboratory reviewed, troponin 3.2, lactate 2.2 WBC 8.5, hemoglobin 9, platelets 207, INR 1.3, sodium 136, potassium 4.5, BUN 56, serum creatinine 1.19, COVID-19 BSAG negative, urine toxicology negative. REVIEW OF SYSTEMS CARDIOVASCULAR: Denies chest pain, shortness of breath, orthopnea, PND or pal pitations. RESPIRATORY: Denies cough. GASTROINTESTINAL: Denies abdominal pain, diarrhea, constipation, nausea or vomiting. MUSCULOSKELETAL: Denies myalgias. NEUROLOGIC: Denies numbness, tingling, headacbe or weakness. ENDOCRINE: Denies fatigue, weight change, polydipsia or polyurina. GENITOURINARY: Denies burning, hematuria or urgency with micturation. HEMATOLOGIC: Denies history of anemia or bleeding. PHYSICAL EXAMINATION Blood pressure 132/72, heart 72, afebrile, maintaining a saturation 2 L nasal cannula CONSTITUTIONAL: No apparent distress. HEENT: Head is normocephalic. Pupils are equal, round. Sclerae anicteric. Mucous membranes of the mouth are moist. No JVD. No carotid bruit. CHEST EXAMINATION: Lungs are clear to auscultation. No chest wall tenderness is noted on palpation or with deep breathing. HEART EXAMINATION: Regular rate and rhythm. S1, S2 heard. Systolic murmur at a pex. ABDOMEN: Soft, nontender. Positive bowel sounds. EXTREMITIES: 2+ peripheral pulses, no lower extremity edema and no calf tenderness. SKIN: warm dry NEUROLOGIC EXAMINATION: Patient is awake, alert and oriented x3. 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 -Trend troponins -Monitor renal function -Start IV heparin drip, hold Eliquis -Continue aspirin, statin -Start metoprolol tartrate BID -ACEI/ARB on hold due to EDOUARD -When speaking to the patient, she is requesting to go home. Spoke with daughter about possible cardiac catheterization, discussed the risks, benefits and alternative therapies for the procedure and for both sedation/analgesia as well as necessary blood product administration, if indicated, as they pertain to this patient. Questions have been answered appropriately. Daughter states she would like to speak to her brother as well as the patient before making a decision about the cardiac catheterization -NPO after midnight for possible intervention tomorrow -Further recommendations based on clinical course Thank you kindly for this consultation. Nurse Practitioner note has been reviewed, I agree with a documented findings and plan of care. Patient was seen and examined. Past Medical History Past Medical History: Heart Failure, COPD, Diabetes Mellitus, Diabetes Mellitus, Myocardial Infarction ([place]), Myocardial Infarction (NE), Osteoarthritis (OA), Respiratory Disorder, Skin Disorder, Vascular Disorder Additional Past Medical History / Comment(s): Trigeminal Neuralgia, Diabetic N europathy, [place] 1994, rosacea, Hypoxic Respiratory Failure; Raynauds; PVD; Anemia, left BKA done in 2019 Last Myocardial Infarction Date:: 1994 History of Any Multi-Drug Resistant Organisms: None Reported Past Surgical History: Appendectomy, Cholecystectomy, Heart Catheterization With Stent, Hysterectomy, Orthopedic Surgery, Pacemaker Additional Past Surgical History / Comment(s): Arthrectomy rt leg, Angioplasty, Pacemaker August 2016, left below the knee amputation, one heart stent Past Anesthesia/Blood Transfusion Reactions: No Reported Reaction Date of Last Stent Placement:: 1994 Type of Cardiac Device: Permanent Pacemaker Device Placement Date:: August 2016 Past Psychological History: No Psychological Hx Reported Smoking Status: Former smoker Past Alcohol Use History: None Reported Past Drug Use History: None Reported - Past Family History Father Family Medical History: Myocardial Infarction ([place]) Mother Family Medical History: Congestive Heart Failure (CHF), CVA/TIA, Diabetes Mellitus Medications and Allergies Home Medications Medication Instructions Recorded Confirmed Type Montelukast [Singulair] 10 mg PO HS #30 tab 09/20/16 01/12/21 Rx Cyanocobalamin (Vitamin B-12) 1,000 mcg PO DAILY 07/18/17 01/12/21 History [Vitamin B-12] Losartan [Cozaar] 50 mg PO DAILY 07/18/17 01/12/21 History Rosuvastatin [Crestor] 20 mg PO DAILY 01/10/19 01/12/21 History metFORMIN HCL [Glucophage XR] 750 mg PO BID 02/15/19 01/12/21 History Apixaban [Eliquis] 5 mg PO BID 06/13/19 01/12/21 History Albuterol Inhaler [Ventolin Hfa 2 puff INHALATION RT-QID PRN 11/19/19 01/12/21 History Inhaler] Donepezil HCl [Aricept] 10 mg PO DAILY 09/06/20 01/12/21 History Fluticasone/Salmeterol [Advair Hfa 1 puff INHALATION RT-BID PRN 09/06/20 01/12/21 History 45-21 Mcg Inhaler] Insulin Glargine,Hum.rec.anlog 2 unit SQ HS 09/06/20 01/12/21 History [Lantus Solostar Pen] Liraglutide [Victoza 3-Orlin] 1.8 mg SQ DAILY 09/06/20 01/12/21 History Multivitamins, Thera [Multivitamin 1 tab PO DAILY 09/06/20 01/12/21 History (formulary)] [place]-3 Fatty Acids/Fish Oil [Fish 1 cap PO DAILY 09/06/20 01/12/21 History Oil 1,000 mg Softgel] Pregabalin [Lyrica] 225 mg PO BID 09/06/20 01/12/21 History Furosemide [Lasix] 40 mg PO DAILY 30 Days #30 tab 09/09/20 01/12/21 Rx OXcarbazepine [Trileptal] 300 mg PO BID 12/09/20 01/12/21 History hydrALAZINE HCL [Apresoline] 50 mg PO TID 12/09/20 01/12/21 History HYDROcodone/APAP 5-325MG [[place] 1 tab PO Q6HR PRN 3 Days #12 tab 12/26/20 01/12/21 Rx 5-325] Simethicone [Gas-X] 125 mg PO TID PRN 01/12/21 01/12/21 History Allergies Allergy/AdvReac Type Severity Reaction Status Date / Time codeine AdvReac Nausea & Verified 01/12/21 03:37 Vomiting sitagliptin [From ] AdvReac frequent Verified 01/12/21 03:37 UTI Physical Exam Vitals: Vital Signs Temp Pulse Resp BP Pulse Ox 01/12/21 09:58 75 18 133/72 95 01/12/21 08:00 20 95 01/12/21 06:35 75 22 102/59 95 01/12/21 03:30 98.1 F 66 20 121/68 97 Intake and Output 01/11/21 01/12/21 01/12/21 22:59 06:59 14:59 Other: Weight 83.915 kg Results 01/12/21 03:42 01/12/21 03:42 Cardiac Enzymes 01/12/21 01/12/21 01/12/21 Range/Units 03:42 03:42 08:45 AST 46 H (14-36) U/L Troponin I 3.290 H* 2.910 H* (0.000-0.034) ng/mL Coagulation 01/12/21 01/12/21 Range/Units 03:42 08:52 PT 13.3 H 13.3 H (9.0-12.0) sec APTT 23.6 23.9 (22.0-30.0) sec CBC 01/12/21 Range/Units 03:42 WBC 8.5 (3.8-10.6) k/uL RBC 4.28 (3.80-5.40) m/uL Hgb 9.0 L (11.4-16.0) gm/dL Hct 32.2 L (34.0-46.0) % Plt Count 207 (150-450) k/uL Comprehensive Metabolic Panel 01/12/21 Range/Units 03:42 Sodium 136 L (137-145) mmol/L Potassium 4.5 (3.5-5.1) mmol/L Chloride 104 (98-107) mmol/L Carbon Dioxide 22 (22-30) mmol/L BUN 56 H (7-17) mg/dL Creatinine 1.19 H (0.52-1.04) mg/dL Glucose 123 H (74-99) mg/dL Calcium 8.4 (8.4-10.2) mg/dL AST 46 H (14-36) U/L ALT 22 (4-34) U/L Alkaline Phosphatase 189 H (38-126) U/L Total Protein 7.1 (6.3-8.2) g/dL Albumin 3.8 (3.5-5.0) g/dL Current Medications Generic Name Dose Route Start Last Admin Trade Name Freq PRN Reason Stop Dose Admin Aspirin 81 mg 01/13/21 09:00 Aspirin 81 Mg PO DAILY FRANTZ Atorvastatin Calcium 80 mg 01/12/21 09:00 01/12/21 09:54 Atorvastatin 80 Mg Tab PO 80 mg DAILY FRANTZ Administration Heparin Sodium (Porcine) 0 unit 01/12/21 08:45 Heparin Sodium 1,000 Un/Ml (10ml Vl) IV PER PROTOCOL PRN Low PTT Protocol Sodium Chloride 1,000 mls @ 100 mls/hr 01/12/21 03:38 01/12/21 04:07 Saline 0.9% IV 01/12/21 13:37 100 mls/hr .Q10H STA Administration Heparin Sodium/Sodium Chloride 250 mls @ 10 mls/hr 01/12/21 08:45 01/12/21 09:54 25,000 unit/ Sodium Chloride IV 11.917 units/kg/hr .Q24H FRANTZ 10 mls/hr Administration Protocol 11.917 UNITS/KG/HR Metoprolol Tartrate 12.5 mg 01/12/21 09:00 01/12/21 09:54 Metoprolol Tartrate 12.5 Mg Tab PO 12.5 mg BID FRANTZ Administration Morphine Sulfate 4 mg 01/12/21 05:11 Morphine Sulfate 4 Mg/Ml Syringe IV Q4HR PRN Chest Pain Nitroglycerin 0.4 mg 01/12/21 05:11 Nitroglycerin Sl Tabs 0.4 Mg Tab SUBLINGUAL Q5M PRN Chest Pain Intake and Output 01/11/21 01/12/21 01/12/21 22:59 06:59 14:59 Other: Weight 83.915 kg 01/12/21 03:42 01/12/21 03:42
--- NOTE | 2021-01-12 12:53 | ECHOF ---
Referral Reason:nstemi MEASUREMENTS -------- HEIGHT: 154.9 cm WEIGHT: 83.9 kg BP: IVSd: 1.3 cm (0.6 - 1.1) LVIDd: 3.9 cm (3.9 - 5.3) LVPWd: 1.4 cm (0.6 - 1.1) EDV(Teich): 67 ml IVSs: 1.7 cm LVIDs: 2.9 cm LVPWs: 1.9 cm %IVS Thck: 30 % ESV(Teich): 33 ml EF(Teich): 51 % %FS: 26 % SV(Teich): 34 ml RVIDd: 2.7 cm (< 3.3) LALs A4C: 7.1 cm LAAs A4C: 26.2 cm LAESV A-L A4C: 83 ml LAESV MOD A4C: 77 ml LALs A2C: 6.1 cm LAAs A2C: 22.2 cm LAESV A-L A2C: 68 ml LAESV MOD A2C: 65 ml LAESV(A-L): 81 ml LAESV Index (A-L): 44.02 ml/m Ao Diam: 3.5 cm (2.0 - 3.7) LA Diam: 3.4 cm (2.7 - 3.8) AV Cusp: 1.6 cm (1.5 - 2.6) EPSS: 0.5 cm MV E Efraín: 1.12 m/s MV DecT: 181 ms MV Dec Pondera: 6.2 m/s MV A Efraín: 0.43 m/s MV E/A Ratio: 2.62 MV PHT: 52 ms MR Vmax: 4.34 m/s MR maxP.51 mmHg PV Vmax: 0.83 m/s PV maxP.79 mmHg DC Vmax: 1.97 m/s DC maxP.45 mmHg DC PHT: 185 ms DC DecT: 639 ms DC Dec Pondera: 3.1 m/s TR Vmax: 3.35 m/s TR maxP.86 mmHg RAP: 5.00 mmHg RVSP: 49.86 mmHg MV EF SLOPE: 173.35 mm/s (70 - 150) MV EXCURSION: 19.78 mm (> 18.000) FINDINGS -------- This was a technically difficult study with suboptimal views. The left ventricular size is normal. There is moderate concentric left ventricular hypertrophy. O verall left ventricular systolic function is mild-moderately impaired with, an EF between 40 - 45 %. Increased LAP Grade 2 Diastolic Dysfunction. Mid inferior LV wall motion is hypokinetic. Apica l lateral LV wall motion is hypokinetic. Mid inferiorlateral is hypokinetic The right ventricle is normal in size. LA is severely dilated >40 ml/m2 The right atrial size is normal. Lumason used Aortic valve is trileaflet and is mildly thickened. The mitral valve is normal. The mitral valve leaflets are mildly thickened. Mild mitral regurgita tion is present. The tricuspid valve appears structurally normal. Mild tricuspid regurgitation present. There is m ild pulmonary hypertension. The right ventricular systolic pressure, as measured by Doppler, is 49. 86mmHg. Trace/mild (physiologic) pulmonic regurgitation. The aortic root size is normal. IVC Not well visulized. There is no pericardial effusion. CONCLUSIONS -------- 1. The left ventricular size is normal. 2. There is moderate concentric left ventricular hypertrophy. 3. Overall left ventricular systolic function is mild-moderately impaired with, an EF between 40 - 45 %. 4. Increased LAP Grade 2 Diastolic Dysfunction. 5. Mid inferior LV wall motion is hypokinetic. 6. Apical lateral LV wall motion is hypokinetic. 7. Mid inferiorlateral is hypokinetic 8. LA is severely dilated >40 ml/m2 9. Aortic valve is trileaflet and is mildly thickened. 10. The mitral valve leaflets are mildly thickened. 11. Mild mitral regurgitation is present. 12. Mild tricuspid regurgitation present. 13. There is mild pulmonary hypertension. 14. The right ventricular systolic pressure, as measured by Doppler, is 49.86mmHg. 15. Trace/mild (physiologic) pulmonic regurgitation. 16. There is no pericardial effusion. HAY STACKER OPERATOR: Michelle Paul RDCS
[2021-01-12] MEDS: HYDROcodone/APAP 5-325MG 1 EACH TAB PO PRN (15:14)
--- NOTE | 2021-01-12 15:30 | P.HPIM ---
History of Present Illness H&P Date: 01/12/21 History of Presenting Illness: Patient is a very pleasant 80-year-old female with a past medical history of CAD status post CABG, pacemaker, hypertension, hyperlipidemia, atrial fibrillation on anticoagulation with Eliquis, chronic diastolic heart failure with preserved EF 50-55%, insulin dependent diabetes mellitus, peripheral artery disease, and history of left BKA. Patient presented to the emergency department with a chief complaint of fall status post rolling out of bed and hitting her head on a blood thinner. Patient denied having a loss of consciousness. In the emergency department, patient underwent CT brain and cervical spine negative for acute intercranial process showing mild cerebral atrophy and cervical spondylitic changes with no fracture. X-ray of pelvis negative for acute abnormality showing no fractures. A chest x-ray revealing congestive heart failure with pleural effusions and cardiomegaly. Labs revealed lactic acidosis with a lactate of 2.2, elevated troponin 3.290, and an Acute kidney injury with BUN of 56, creatinine 1.19, and GFR of 43 with baseline creatinine being 0.6. Patient was started on heparin infusion and admitted under our services consultation to cardiology. Patient was seen and fully evaluated at the bedside. She reports feeling weak and fatigued but denies having any other pain or complaints at this time including headache, lightheadedness, dizziness, chest pain, palpitations, shortness of breath, back pain, nausea, vomiting, abdominal pain, or experiencing any lower extremity edema. Patient reports she is following outpatient with Dr. Pleitez for continued wound care and antibiotic management of delayed healing of surgical wound to right lower extremity. Review of systems: Pertinent positives and negatives as discussed in HPI, a complete review of systems was performed and all other systems are negative. Physical exam: Vital signs reviewed and stable. General: Nontoxic, no distress and appears stated age. Derm: Skin warm and dry, normal coloration for ethnicity. Head: Atraumatic, normocephalic and symmetric. Eyes: EOMs intact, no lid lag, and anicteric sclera Mouth: no lip lesions, mucus membranes moist Cardiovascular: regular rate and rhythm with normal S1S2, no murmur, positive posterior tibial pulse to right lower extremity, and cap refill < 2 seconds. Lungs: Respirations even, regular, and unlabored on 4 L O2 via nasal cannula. Lungs diminished at bases otherwise no rhonchi, no rales, no crackles, no wheezing, and no accessory muscle usage. Abdominal: soft, nontender to palpation, no guarding, no appreciable organomegaly Ext: left BKA. Right lower extremity dressing intact. Neuro: Speech clear, face symmetrical and CN II-XII grossly intact with no noted focal neuro deficits Psych: Alert and oriented to person, place, time, and situation. Appropriate and pleasant affect. Assessment and Plan of Care: NSTEMI Acute on chronic diastolic heart failure Troponin elevated at 3.290. Trend troponins x3 We will repeat echocardiogram, previous echocardiogram completed 09/06/20 revealed a preserved EF between 50 and 55%. Telemetry monitoring Cardiology consulted, appreciate further recommendations Continue heparin infusion pending further recommendations from cardiology. Continue aspirin and atorvastatin. Losartan held secondary to EDOUARD. Acute kidney injury Hold Nephrotoxic medications including furosemide, hydralazine, and losartan. Continue gentle hydration with IV fluids. Continue close monitoring with repeat a.m. labs. Right lower extremity wound Patient reports following outpatient with Dr. Pleitez for wound care and antibiotic therapy. Consult placed to Dr. Pleitez. Lactic acidosis, improved with fluid hydration Insulin-dependent diabetes mellitus Continue nightly Levemir and place patient on NovoLog sliding scale. Hypertension Monitor vital signs and Hold losartan secondary to EDOUARD, patient started on metoprolol 25 mg twice a day. Hyperlipidemia Continue atorvastatin 80 mg daily. Atrial fibrillation Hold Eliquis and continue heparin infusion pending further recommendations from cardiology. Chronic medical history includes: CAD status post CABG, status post pacemaker insertion, peripheral artery disease status post history of left BKA. Continue daily medication regimen. The patient is admitted with an anticipated greater than 2 midnight stay for evaluation of NSTEMI. CODE STATUS: Full code DVT prophylaxis: heparin Discussed with: patient and RN Anticipated discharge date: clinical course to determine. Anticipated discharge place: home A total of 45 minutes was spent on the care of this complex patient more than 50% of the time was spent in counseling and care coordination. Past Medical History Past Medical History: Heart Failure, COPD, Diabetes Mellitus, Diabetes Mellitus, Myocardial Infarction ([place]), Myocardial Infarction ([place]), Osteoarthritis (OA), Respiratory Disorder, Skin Disorder, Vascular Disorder Additional Past Medical History / Comment(s): Trigeminal Neuralgia, Diabetic Neuropathy, [place] 1994, rosacea, Hypoxic Respiratory Failure; Raynauds; PVD; Anemia, left BKA done in 2019 Last Myocardial Infarction Date:: 1994 History of Any Multi-Drug Resistant Organisms: None Reported Past Surgical History: Appendectomy, Cholecystectomy, Heart Catheterization With Stent, Hysterectomy, Orthopedic Surgery, Pacemaker Additional Past Surgical History / Comment(s): Arthrectomy rt leg, Angioplasty, Pacemaker August 2016, left below the knee amputation, one heart stent Past Anesthesia/Blood Transfusion Reactions: No Reported Reaction Date of Last Stent Placement:: 1994 Type of Cardiac Device: Permanent Pacemaker Device Placement Date:: August 2016 Past Psychological History: No Psychological Hx Reported Smoking Status: Former smoker Past Alcohol Use History: None Reported Past Drug Use History: None Reported - Past Family History Father Family Medical History: Myocardial Infarction ([place]) Mother Family Medical History: Congestive Heart Failure (CHF), CVA/TIA, Diabetes Jia itus Medications and Allergies Home Medications Medication Instructions Recorded Confirmed Type Montelukast [Singulair] 10 mg PO HS #30 tab 09/20/16 01/12/21 Rx Cyanocobalamin (Vitamin B-12) 1,000 mcg PO DAILY 07/18/17 01/12/21 History [Vitamin B-12] Losartan [Cozaar] 50 mg PO DAILY 07/18/17 01/12/21 History Rosuvastatin [Crestor] 20 mg PO DAILY 01/10/19 01/12/21 History metFORMIN HCL [Glucophage XR] 750 mg PO BID 02/15/19 01/12/21 History Apixaban [Eliquis] 5 mg PO BID 06/13/19 01/12/21 History Albuterol Inhaler [Ventolin Hfa 2 puff INHALATION RT-QID PRN 11/19/19 01/12/21 History Inhaler] Donepezil HCl [Aricept] 10 mg PO DAILY 09/06/20 01/12/21 History Fluticasone/Salmeterol [Advair Hfa 1 puff INHALATION RT-BID PRN 09/06/20 01/12/21 History 45-21 Mcg Inhaler] Insulin Glargine,Hum.rec.anlog 2 unit SQ HS 09/06/20 01/12/21 History [Lantus Solostar Pen] Liraglutide [Victoza 3-Orlin] 1.8 mg SQ DAILY 09/06/20 01/12/21 History Multivitamins, Thera [Multivitamin 1 tab PO DAILY 09/06/20 01/12/21 History (formulary)] [place]-3 Fatty Acids/Fish Oil [Fish 1 cap PO DAILY 09/06/20 01/12/21 History Oil 1,000 mg Softgel] Pregabalin [Lyrica] 225 mg PO BID 09/06/20 01/12/21 History Furosemide [Lasix] 40 mg PO DAILY 30 Days #30 tab 09/09/20 01/12/21 Rx OXcarbazepine [Trileptal] 300 mg PO BID 12/09/20 01/12/21 History hydrALAZINE HCL [Apresoline] 50 mg PO TID 12/09/20 01/12/21 History HYDROcodone/APAP 5-325MG [[place] 1 tab PO Q6HR PRN 3 Days #12 tab 12/26/20 01/12/21 Rx 5-325] Simethicone [Gas-X] 125 mg PO TID PRN 01/12/21 01/12/21 History Allergies Allergy/AdvReac Type Severity Reaction Status Date / Time codeine AdvReac Nausea & Verified 01/12/21 03:37 Vomiting sitagliptin [From [place]] AdvReac frequent Verified 01/12/21 03:37 UTI Physical Exam Vitals: Vital Signs Temp Pulse Resp BP Pulse Ox 01/12/21 06:35 75 22 102/59 95 01/12/21 03:30 98.1 F 66 20 121/68 97 Intake and Output 01/11/21 01/12/21 01/12/21 22:59 06:59 14:59 Other: Weight 83.915 kg Results CBC & Chem 7: 01/12/21 03:42 01/12/21 03:42 Labs: Abnormal Lab Results - Last 24 Hours (Table) 01/12/21 01/12/21 01/12/21 Range/Units 03:42 03:42 03:42 Hgb 9.0 L (11.4-16.0) gm/dL Hct 32.2 L (34.0-46.0) % MCV 75.2 L (80.0-100.0) fL MCH 20.9 L (25.0-35.0) pg MCHC 27.9 L (31.0-37.0) g/dL RDW 18.8 H (11.5-15.5) % PT 13.3 H (9.0-12.0) sec INR 1.3 H (<1.2) Sodium (137-145) mmol/L BUN (7-17) mg/dL Creatinine (0.52-1.04) mg/dL Glucose (74-99) mg/dL Plasma Lactic Acid Naveen (0.7-2.0) mmol/L AST (14-36) U/L Alkaline Phosphatase (38-126) U/L Troponin I (0.000-0.034) ng/mL Urine Appearance Cloudy H (Clear) Urine Protein 1+ H (Negative) Urine WBC 21 H (0-5) /hpf Urine Bacteria Rare H (None) /hpf Hyaline Casts 30 H (0-2) /lpf Urine Mucus Few H (None) /hpf 01/12/21 01/12/21 01/12/21 Range/Units 03:42 03:42 03:48 Hgb (11.4-16.0) gm/dL Hct (34.0-46.0) % MCV (80.0-100.0) fL MCH (25.0-35.0) pg MCHC (31.0-37.0) g/dL RDW (11.5-15.5) % PT (9.0-12.0) sec INR (<1.2) Sodium 136 L (137-145) mmol/L BUN 56 H (7-17) mg/dL Creatinine 1.19 H (0.52-1.04) mg/dL Glucose 123 H (74-99) mg/dL Plasma Lactic Acid Naveen 2.2 H* (0.7-2.0) mmol/L AST 46 H (14-36) U/L Alkaline Phosphatase 189 H (38-126) U/L Troponin I 3.290 H* (0.000-0.034) ng/mL Urine Appearance (Clear) Urine Protein (Negative) Urine WBC (0-5) /hpf Urine Bacteria (None) /hpf Hyaline Casts (0-2) /lpf Urine Mucus (None) /hpf
[2021-01-12 17:09] LABS: Glucose,Whole Blood 153 mg/dL (75-99)
[2021-01-12] MEDS: INSULIN ASPART (NovoLOG) 100 UNIT/ML VIAL SQ SCH ×2 (19:43→20:52)
[2021-01-12 20:05] LABS: Glucose,Whole Blood 267 mg/dL (75-99)
[2021-01-12] MEDS: INSULIN DETEMIR (LEVEMIR) 100 UNIT/ML SYR SQ SCH (20:53)
[2021-01-12] MEDS: MONTELUKAST 10 MG TAB PO SCH (20:58)
[2021-01-12] MEDS: METOPROLOL TARTRATE 25 MG TAB PO SCH (20:58)
[2021-01-12] MEDS: OXcarbazepine 150 MG TAB PO SCH (20:59)
[2021-01-12] MEDS: PREGABALIN 75 MG CAP PO SCH (20:59)
--- NOTE | 2021-01-12 22:40 | P.CONS ---
History of Present Illness - Reason for Consult Consult date: 01/12/21 right leg and toe wounds Requesting physician: Anson Bassett - Chief Complaint fall x 1 day - History of Present Illness History of present illness : Patient is 80-year-old female with a past medical history significant for recent right lower extremity bypass graft surgery patient subsequently had dehiscence of the right leg wound that has been treated with the wound VAC and currently with Hydrofera Blue dressing patient also have a unrecorded changes to the right foot dorsum currently being treated with dry protective dressing patient presented to the [facility] ER for evaluation of a fall out of bed patient rolled out of the bed and hitting her head on the side table patient did not have loss of consciousness with the symptom the patient was brought to the hospital for further evaluation patient did have a CT of the brain and cervical spine that was negative for any bleed and no fracture x-ray of the pelvis was negative for acute fracture as well chest x-ray has been suggestive of congestive heart failure patient did not have any fever on presentation to the hospital did have elevated troponin white count was normal creatinine was mildly elevated urine has been relatively negative urine toxin was negative quiros PCR was negative patient has been admitted to the hospital for underlying acute coronary syndrome I was asked to see the jorden gonzalez regarding management of lower extremity wound as the patient did follow with me in the wound care center patient currently denies having any pain to the right medial leg or the 2 wound area currently with no significant swelling redness or any drainage Review of system: CONSTITUTIONAL: Positive for weakness denies high-grade fever. EYES: No complaint. ENT: No complaint. RESPIRATORY: As per history of present illness. CARDIOVASCULAR: No complaint. GENITOURINARY: No complaint. GASTROINTESTINAL: No complaint. MUSCULOSKELETAL: No complaint. INTEGUMENTARY: As per history of present illness. PSYCHOLOGIC: No complaint. ENDOCRINE: No complaint. NEUROLOGIC: No complaint. Past medical history : Reviewed, documented below Past surgical history : Reviewed, documented below Social history: Reviewed, documented below Medications: Reviewed, as documented below EXAMINATION: Vital sigans= Reviewed and documented below GENERAL DESCRIPTION: Elderly female lying in bed, no distress. No tachypnea or accessory muscle of respiration use. HEENT: Shows Pallor , no scleral icterus. Oral mucous membrane is dry. NECK: Trachea central, no thyromegaly. LUNGS: Unlabored breathing. Clear to auscultation anteriorly. No wheeze or crackle. HEART: S1, S2, regular rate and rhythm. ABDOMEN: Soft, no tenderness , guarding or rigidity EXTREMITIES: Right medial leg wound currently covered with Hydrofera Blue dressing the wound has decreased in size no surrounding swelling redness or drainage patient did have some black discoloration to the right foot to tip but no redness or drainage. SKIN: No rash, no masses palpable. NEUROLOGICAL: The patient is awake, alert, oriented x3, mood and affect normal. LABS AND RADIOLOGY: Reviewed results see below Assessment : Patient with right lower extremity postsurgical wound with no evidence of any cellulitis recommend local wound care 2-right foot toe tip with some necrotic changes but no cellulitis Plan: 1-local wound care to the right medial leg wound with a dry Aquacel silver dressing to be changed every 48 hour 2-dry protective dressing to the right foot toes 3-no need for systemic antibiotic therapy We will follow on clinical condition and cultures to further adjust medication if needed Thank you for this consultation we will follow the patient along with you Past Medical History Past Medical History: Heart Failure, COPD, Diabetes Mellitus, Diabetes Mellitus, Myocardial Infarction (MO), Myocardial Infarction (MO), Osteoarthritis (OA), Respiratory Disorder, Skin Disorder, Vascular Disorder Additional Past Medical History / Comment(s): Trigeminal Neuralgia, Diabetic Neuropathy, [place] 1994, rosacea, Hypoxic Respiratory Failure; Raynauds; PVD; Anemia, left BKA done in 2019 Last Myocardial Infarction Date:: 1994 History of Any Multi-Drug Resistant Organisms: None Reported Past Surgical History: Appendectomy, Cholecystectomy, Heart Catheterization With Stent, Hysterectomy, Orthopedic Surgery, Pacemaker Additional Past Surgical History / Comment(s): Arthrectomy rt leg, Angioplasty, Pacemaker August 2016, left below the knee amputation, one heart stent Past Anesthesia/Blood Transfusion Reactions: No Reported Reaction Date of Last Stent Placement:: 1994 Type of Cardiac Device: Permanent Pacemaker Device Placement Date:: August 2016 Past Psychological History: No Psychological Hx Reported Smoking Status: Former smoker Past Alcohol Use History: None Reported Past Drug Use History: None Reported - Past Family History Father Family Medical History: Myocardial Infarction (MO) Mother Family Medical History: Congestive Heart Failure (CHF), CVA/TIA, Diabetes Mellitus Medications and Allergies Home Medications Medication Instructions Recorded Confirmed Type Montelukast [Singulair] 10 mg PO HS #30 tab 09/20/16 01/12/21 Rx Cyanocobalamin (Vitamin B-12) 1,000 mcg PO DAILY 07/18/17 01/12/21 History [Vitamin B-12] Losartan [Cozaar] 50 mg PO DAILY 07/18/17 01/12/21 History Rosuvastatin [Crestor] 20 mg PO DAILY 01/10/19 01/12/21 History metFORMIN HCL [Glucophage XR] 750 mg PO BID 02/15/19 01/12/21 History Apixaban [Eliquis] 5 mg PO BID 06/13/19 01/12/21 History Albuterol Inhaler [Ventolin Hfa 2 puff INHALATION RT-QID PRN 11/19/19 01/12/21 History Inhaler] Donepezil HCl [Aricept] 10 mg PO DAILY 09/06/20 01/12/21 History Fluticasone/Salmeterol [Advair Hfa 1 puff INHALATION RT-BID PRN 09/06/20 History 45-21 Mcg Inhaler] Insulin Glargine,Hum.rec.anlog 2 unit SQ HS 09/06/20 01/12/21 History [Lantus Solostar Pen] Liraglutide [Victoza 3-Orlin] 1.8 mg SQ DAILY 09/06/20 01/12/21 History Multivitamins, Thera [Multivitamin 1 tab PO DAILY 09/06/20 01/12/21 History (formulary)] [place]-3 Fatty Acids/Fish Oil [Fish 1 cap PO DAILY 09/06/20 01/12/21 History Oil 1,000 mg Softgel] Pregabalin [Lyrica] 225 mg PO BID 09/06/20 01/12/21 History Furosemide [Lasix] 40 mg PO DAILY 30 Days #30 tab 09/09/20 01/12/21 Rx OXcarbazepine [Trileptal] 300 mg PO BID 12/09/20 01/12/21 History hydrALAZINE HCL [Apresoline] 50 mg PO TID 12/09/20 01/12/21 History HYDROcodone/APAP 5-325MG [Bonner 1 tab PO Q6HR PRN 3 Days #12 tab 12/26/20 01/12/21 Rx 5-325] Simethicone [Gas-X] 125 mg PO TID PRN 01/12/21 01/12/21 History Allergies Allergy/AdvReac Type Severity Reaction Status Date / Time codeine AdvReac Nausea & Verified 01/12/21 03:37 Vomiting sitagliptin [From ] AdvReac frequent Verified 01/12/21 03:37 UTI Physical Exam Vitals: Vital Signs Temp Pulse Pulse Resp BP BP Pulse Ox 01/12/21 20:00 98.2 F 88 20 112/73 96 01/12/21 16:00 98.4 F 74 20 105/66 91 L 01/12/21 12:23 97.1 F L 64 20 99/63 91 L 01/12/21 11:11 60 18 109/59 95 01/12/21 09:58 75 18 133/72 95 01/12/21 08:00 20 95 01/12/21 06:35 75 22 102/59 95 01/12/21 03:30 98.1 F 66 20 121/68 97 Intake and Output 01/12/21 01/12/21 01/12/21 06:59 14:59 22:59 Intake Total 200 Balance 200 Intake: Oral 200 Other: Weight 83.915 kg Results CBC & Chem 7: 01/12/21 03:42 01/12/21 03:42 Labs: Abnormal Lab Results - Last 24 Hours (Table) 01/12/21 01/12/21 01/12/21 Range/Units 03:42 03:42 03:42 Hgb 9.0 L (11.4-16.0) gm/dL Hct 32.2 L (34.0-46.0) % MCV 75.2 L (80.0-100.0) fL MCH 20.9 L (25.0-35.0) pg MCHC 27.9 L (31.0-37.0) g/dL RDW 18.8 H (11.5-15.5) % PT 13.3 H (9.0-12.0) sec INR 1.3 H (<1.2) APTT (22.0-30.0) sec Sodium (137-145) mmol/L BUN (7-17) mg/dL Creatinine (0.52-1.04) mg/dL Glucose (74-99) mg/dL POC Glucose (mg/dL) (75-99) mg/dL Plasma Lactic Acid Naveen (0.7-2.0) mmol/L AST (14-36) U/L Alkaline Phosphatase (38-126) U/L Troponin I (0.000-0.034) ng/mL Urine Appearance Cloudy H (Clear) Urine Protein 1+ H (Negative) Urine WBC 21 H (0-5) /hpf Urine Bacteria Rare H (None) /hpf Hyaline Casts 30 H (0-2) /lpf Urine Mucus Few H (None) /hpf 01/12/21 01/12/21 01/12/21 Range/Units 03:42 03:42 03:48 Hgb (11.4-16.0) gm/dL Hct (34.0-46.0) % MCV (80.0-100.0) fL MCH (25.0-35.0) pg MCHC (31.0-37.0) g/dL RDW (11.5-15.5) % PT (9.0-12.0) sec INR (<1.2) APTT (22.0-30.0) sec Sodium 136 L (137-145) mmol/L BUN 56 H (7-17) mg/dL Creatinine 1.19 H (0.52-1.04) mg/dL Glucose 123 H (74-99) mg/dL POC Glucose (mg/dL) (75-99) mg/dL Plasma Lactic Acid Naveen 2.2 H* (0.7-2.0) mmol/L AST 46 H (14-36) U/L Alkaline Phosphatase 189 H (38-126) U/L Troponin I 3.290 H* (0.000-0.034) ng/mL Urine Appearance (Clear) Urine Protein (Negative) Urine WBC (0-5) /hpf Urine Bacteria (None) /hpf Hyaline Casts (0-2) /lpf Urine Mucus (None) /hpf 01/12/21 01/12/21 01/12/21 Range/Units 08:45 08:52 11:50 Hgb (11.4-16.0) gm/dL Hct (34.0-46.0) % MCV (80.0-100.0) fL MCH (25.0-35.0) pg MCHC (31.0-37.0) g/dL RDW (11.5-15.5) % PT 13.3 H (9.0-12.0) sec INR 1.3 H (<1.2) APTT (22.0-30.0) sec Sodium (137-145) mmol/L BUN (7-17) mg/dL Creatinine (0.52-1.04) mg/dL Glucose (74-99) mg/dL POC Glucose (mg/dL) (75-99) mg/dL Plasma Lactic Acid Nvaeen (0.7-2.0) mmol/L AST (14-36) U/L Alkaline Phosphatase (38-126) U/L Troponin I 2.910 H* 3.210 H* (0.000-0.034) ng/mL Urine Appearance (Clear) Urine Protein (Negative) Urine WBC (0-5) /hpf Urine Bacteria (None) /hpf Hyaline Casts (0-2) /lpf Urine Mucus (None) /hpf 01/12/21 01/12/21 01/12/21 Range/Units 16:46 17:02 20:02 Hgb (11.4-16.0) gm/dL Hct (34.0-46.0) % MCV (80.0-100.0) fL MCH (25.0-35.0) pg MCHC (31.0-37.0) g/dL RDW (11.5-15.5) % PT (9.0-12.0) sec INR (<1.2) APTT 38.5 H (22.0-30.0) sec Sodium (137-145) mmol/L BUN (7-17) mg/dL Creatinine (0.52-1.04) mg/dL Glucose (74-99) mg/dL POC Glucose (mg/dL) 153 H 267 H (75-99) mg/dL Plasma Lactic Acid Naveen (0.7-2.0) mmol/L AST (14-36) U/L Alkaline Phosphatase (38-126) U/L Troponin I (0.000-0.034) ng/mL Urine Appearance (Clear) Urine Protein (Negative) Urine WBC (0-5) /hpf Urine Bacteria (None) /hpf Hyaline Casts (0-2) /lpf Urine Mucus (None) /hpf
[2021-01-13] MEDS ORDERED: LORazepam 2 MG/ML INJ IV STA (04:40)
[2021-01-13 06:08] LABS: Glucose,Whole Blood 151 mg/dL (75-99)
[2021-01-13] MEDS: INSULIN ASPART (NovoLOG) 100 UNIT/ML VIAL SQ SCH ×4 (06:11→20:40)
[2021-01-13] MEDS: HEPARIN SOD,PORK IN 0.45% NACL 25,000 UNIT in 0.45% NACL 1 250ML.BAG IV SCH (06:53)
[2021-01-13 06:58] LABS: Anisocytosis Slight; Basophils # (A) 0.1 k/uL (0-0.2); Basophils % (A) 1 %; Eosinophils # (A) 0.1 k/uL (0-0.7); Eosinophils % (A) 1 %; HCT 33.4 % (34.0-46.0); Hypochromasia Marked; Lymphocytes % (A) 13 %; MCH 20.8 pg (25.0-35.0); MCHC 26.9 g/dL (31.0-37.0); MCV 77.1 fL (80.0-100.0); Mean Platelet Volume 8.5; Microcytosis Slight; Monocytes # (A) 0.6 k/uL (0-1.0); Monocytes % (A) 7 %; Neutrophils # (A) 5.9 k/uL (1.3-7.7); Neutrophils % (A) 76 %; Platelet Count 203 k/uL (150-450); Poikilocytosis Slight; RBC 4.34 m/uL (3.80-5.40); RDW 18.6 % (11.5-15.5); WBC 7.8 k/uL (3.8-10.6)
[2021-01-13 07:14] LABS: INR 1.2 (<1.2); Partial Thromboplastin Time 40.3 sec (22.0-30.0); Prothrombin Time 12.6 sec (9.0-12.0)
[2021-01-13 07:20] LABS: Calcium 8.6 mg/dL (8.4-10.2); Magnesium 2.3 mg/dL (1.6-2.3); Potassium 4.7 mmol/L (3.5-5.1)
[2021-01-13] MEDS ORDERED: NON FORMULARY DRUG (Rosuvastatin 20 MG Tablet) PO SCH (09:00)
[2021-01-13] MEDS ORDERED: ASPIRIN 325 MG TAB PO SCH (09:00)
[2021-01-13] MEDS ORDERED: NON FORMULARY DRUG (Omega-3 Fatty Acids/Fish Oil [Fish Oil 1,000 Mg Softgel] 1 EACH Capsul PO SCH (09:00)
[2021-01-13] MEDS: DONEPEZIL 10 MG TAB PO SCH (09:44)
[2021-01-13] MEDS: ASPIRIN 81 MG PO SCH (09:44)
[2021-01-13] MEDS: ATORVASTATIN 80 MG TAB PO SCH (09:45)
[2021-01-13] MEDS: METOPROLOL TARTRATE 25 MG TAB PO SCH ×2 (09:45→20:39)
[2021-01-13] MEDS: PREGABALIN 75 MG CAP PO SCH ×2 (09:45→20:40)
[2021-01-13] MEDS: MULTIVITAMINS, THERA 1 EACH TAB PO SCH (09:45)
[2021-01-13] MEDS: OXcarbazepine 150 MG TAB PO SCH ×2 (09:45→20:39)
[2021-01-13] MEDS: CYANOCOBALAMIN 500 MCG TAB PO SCH (09:45)
--- NOTE | 2021-01-13 11:19 | P.PN ---
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 Lovell in the past. She used to follow with Dr. Gupta in the office, she has seen a child adolescent psychiatrist at [facility]. We have been asked to see in consultation for NSTEMI Patient is seen and neil dud in the emergency department, she is slightly confused. Patient lives with her daughter currently. Spoke with the patient's daughter, Caridad. Patient's daughter states the patient has been having more confusion, generalized weakness, decreased PO intake, and looking more "sleepy" over the past week. She states her mother is usually more active, able to do things around the house, take her own medications and feed herself. Specifically on Sunday, the daughter noticed the patient more lethargic, sleeping in her chair, she checked on her a few times. When the daughter was in another room, she heard a loud thud, and found her mother on the ground. Patient was brought to the emergency department. She denies her mother complaining of chest pain, shortness of breath, lightheadedness, dizziness or palpitations. However she states that her mom has been having increased confusion and unable to get an adequate answer from her. It is unclear if patient has had coronary artery disease with stenting in the past, daughter is not aware of where stents have been placed. DIAGNOSTICS EKG reveals atrial fibrillation, heart rate 77, Twave inversions in inferior lateral leads Most recent echocardiogram 08/2020 revealed EF of 5055 percent, moderate concentric left ventricular hypertrophy, LA severely dilated, mild to moderate mitral regurgitation, mild tricuspid regurgitation. 01/13/21: Patient examined at bedside, she continues to be confused. She denies any chest pain or shortness of breath. Audible wheezing noted. Blood pressure 145/80, heart rate 92, temp 99.2F, oxygen saturation is 96% on 4 L nasal cannula. Troponin trend 3.22.9-3.2. Echocardiogram revealed EF of 4045 percent, increased grade 2 diastolic dysfunction, mid inferior, apical lateral and mid inferior lateral miranda hypokinetic, LA severely dilated, mild maturity, mild tricuspid to show, mild pulmonary hypertension. She is currently maintained on aspirin 81mg daily, atorvastatin 80 mg nightly, IV heparin drip, metoprolol tartrate 25 mg twice a day, PRN nitroglycerin . Laboratory data review WBC 7.8, hemoglobin 9, platelets 203, INR 1.2, sodium 137, potassium 4.7, BUN 52, serum creatinine 1.16, magnesium 2.3. Infectious diseases consult physician not recommending antibiotic therapy at this time. Telemetry reviewed patient in nature fibrillation with controlled ventricular rates. PHYSICAL EXAMINATION CONSTITUTIONAL: Confused HEENT: Neck supple. No JVD. CHEST EXAMINATION: Lungs are diminished bilaterally to auscultation. Some mild wheezing noted. No chest wall tenderness is noted on palpation or with deep breathing. HEART EXAMINATION: Regular rate and rhythm. S1, S2 heard. Systolic murmur at apex. ABDOMEN: Soft, nontender. Positive bowel sounds. EXTREMITIES: 2+ peripheral pulses, no lower extremity edema and no calf tenderness. NEUROLOGIC EXAMINATION: Patient is awake, alert and oriented x2. Unaware of current hospital situation. 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 -Further recommendations based on clinical course Nurse Practitioner note has been reviewed, I agree with a documented findings and plan of care. Patient was seen and examined. Objective - Vital Signs Vital signs: Vital Signs Temp 99.2 F 01/13/21 08:35 Pulse 92 01/13/21 08:35 Resp 19 01/13/21 08:35 BP 145/80 01/13/21 08:35 Pulse Ox 96 01/13/21 08:35 Intake & Output 01/12/21 01/13/21 01/13/21 18:59 06:59 18:59 Intake Total 420.908 Output Total 700 450 Balance -279.092 -450 Weight 83.5 kg Intake: Intake, IV Titration 220.908 Amount Heparin Sod,Pork in 0.45% 220.908 NaCl 25,000 unit In 0.45 % NaCl 1 250ml.bag @ 11. 917 UNITS/KG/HR 10 mls/hr IV .Q24H FRANTZ Rx#: [id number] Oral 200 Output: Urine 700 450 Uretheral (Mathews) 450 Other: # Voids 2 - Labs CBC & Chem 7: 01/13/21 06:32 01/13/21 06:32 Labs: Abnormal Lab Results - Last 24 Hours (Table) 01/12/21 01/12/21 01/12/21 Range/Units 11:50 16:46 17:02 Hgb (11.4-16.0) gm/dL Hct (34.0-46.0) % MCV (80.0-100.0) fL MCH (25.0-35.0) pg MCHC (31.0-37.0) g/dL RDW (11.5-15.5) % PT (9.0-12.0) sec INR (<1.2) APTT 38.5 H (22.0-30.0) sec Carbon Dioxide (22-30) mmol/L BUN (7-17) mg/dL Creatinine (0.52-1.04) mg/dL Glucose (74-99) mg/dL POC Glucose (mg/dL) 153 H (75-99) mg/dL Troponin I 3.210 H* (0.000-0.034) ng/mL 01/12/21 01/12/21 01/13/21 Range/Units 20:02 22:45 06:07 Hgb (11.4-16.0) gm/dL Hct (34.0-46.0) % MCV (80.0-100.0) fL MCH (25.0-35.0) pg MCHC (31.0-37.0) g/dL RDW (11.5-15.5) % PT (9.0-12.0) sec INR (<1.2) APTT 39.0 H (22.0-30.0) sec Carbon Dioxide (22-30) mmol/L BUN (7-17) mg/dL Creatinine (0.52-1.04) mg/dL Glucose (74-99) mg/dL POC Glucose (mg/dL) 267 H 151 H (75-99) mg/dL Troponin I (0.000-0.034) ng/mL 01/13/21 01/13/21 01/13/21 Range/Units 06:32 06:32 06:32 Hgb 9.0 L (11.4-16.0) gm/dL Hct 33.4 L (34.0-46.0) % MCV 77.1 L (80.0-100.0) fL MCH 20.8 L (25.0-35.0) pg MCHC 26.9 L (31.0-37.0) g/dL RDW 18.6 H (11.5-15.5) % PT 12.6 H (9.0-12.0) sec INR 1.2 H (<1.2) APTT 40.3 H (22.0-30.0) sec Carbon Dioxide 21 L (22-30) mmol/L BUN 52 H (7-17) mg/dL Creatinine 1.16 H (0.52-1.04) mg/dL Glucose 145 H (74-99) mg/dL POC Glucose (mg/dL) (75-99) mg/dL Troponin I (0.000-0.034) ng/mL
[2021-01-13 11:39] LABS: Glucose,Whole Blood 162 mg/dL (75-99)
[2021-01-13] MEDS: HYDROcodone/APAP 5-325MG 1 EACH TAB PO PRN (11:51)
--- NOTE | 2021-01-13 16:03 | P.PN ---
<Anson Bassett - Last Filed: 01/13/21 15:53> Subjective Progress Note Date: 01/13/21 History of Presenting Illness: Patient is a very pleasant 80-year-old female with a past medical history of CAD status post CABG, pacemaker, hypertension, hyperlipidemia, atrial fibrillation on anticoagulation with Eliquis, chronic diastolic heart failure with preserved EF 50-55%, insulin dependent diabetes mellitus, Dementia, peripheral artery disease, and history of left BKA. Patient presented to the emergency department with a chief complaint of fall status post rolling out of bed and hitting her head on a blood thinner. Patient denied having a loss of consciousness. In the emergency department, patient underwent CT brain and cervical spine negative for acute intercranial process showing mild cerebral atrophy and cervical spondylitic changes with no fracture. X-ray of pelvis negative for acute abnormality showing no fractures. A chest x-ray revealing congestive heart failure with pleural effusions and cardiomegaly. Labs revealed lactic acidosis with a lactate of 2.2, elevated troponin 3.290, and an Acute kidney injury with BUN of 56, creatinine 1.19, and GFR of 43 with baseline creatinine being 0.6. Patient was started on heparin infusion and admitted under our services consultation to cardiology. Patient also reports she is following outpatient with Dr. Pleitez for continued wound care and management of delayed healing of surgical wound to right lower extremity. Physical exam: Morning labs reviewed, microcytic microchromic anemia with hemoglobin 9.0 and elevated renal function with BUN of 52, creatinine 1.16, and GFR 45. Echocardiogram was completed revealing a mild to moderately impaired EF 40-45% with left ventricular wall showing hypokinetic motion, mild mitral and tricuspid regurgitation and mild pulmonary hypertension. Patient appeared slightly more confused today, per patient's daughter this is patient's baseline mentation and will wax and wane with her confusion. Patient currently denies having any chest pain, shortness of breath, or any other complaints at this time. Vital signs reviewed and stable. General: Nontoxic, no distress and appears stated age. Derm: Skin warm and dry, normal coloration for ethnicity. Head: Atraumatic, normocephalic and symmetric. Eyes: EOMs intact, no lid lag, and anicteric sclera Mouth: no lip lesions, mucus membranes dry Cardiovascular: Irregularly irregular rhythm with normal S1S2, no murmur, positive posterior tibial pulse to right lower extremity, and cap refill < 2 seconds. Lungs: Respirations even, regular, and unlabored on 4 L O2 via nasal cannula. Lungs diminished at bases otherwise no rhonchi, no rales, no crackles, no wheezing, and no accessory muscle usage. Abdominal: soft, nontender to palpation, no guarding, no appreciable organome asia Ext: Left BKA. Right lower extremity dressing intact. Neuro: Speech clear, face symmetrical and CN II-XII grossly intact with no noted focal neuro deficits Psych: Alert to person only. normal baseline mentation per daughter. Assessment and Plan of Care: NSTEMI Acute on chronic systolic and diastolic heart failure, systolic newly discovered Troponin elevated at 3.290. Trend troponins x3 Echocardiogram revealing a mild to moderately impaired EF 40-45% with left ventricular wall showing hypokinetic motion, mild mitral and tricuspid regurgitation and mild pulmonary hypertension, previous echocardiogram completed 09/06/20 revealed a preserved EF between 50 and 55%. Telemetry monitoring Cardiology consulted, appreciate further recommendations Continue heparin infusion pending further recommendations from cardiology. Continue aspirin and atorvastatin. Losartan held secondary to EDOUARD. Acute kidney injury, improving Hold Nephrotoxic medications including furosemide, hydralazine, and losartan. Continue gentle hydration with IV fluids. Continue close monitoring with repeat a.m. labs. Right lower extremity wound Patient reports following outpatient with Dr. Pleitez for wound care and antibiotic therapy. Consult placed to Dr. Pleitez. Lactic acidosis, improved with fluid hydration Insulin-dependent diabetes mellitus Continue nightly Levemir and place patient on NovoLog sliding scale. Hypertension Monitor vital signs and Hold losartan secondary to EDOUARD, patient started on metoprolol 25 mg twice a day. Hyperlipidemia Continue atorvastatin 80 mg daily. Atrial fibrillation Hold Eliquis and continue heparin infusion pending further recommendations from cardiology. Anemia of chronic disease Hemoglobin stable 9.0, currently at baseline levels. We will continue to monitor with repeat a.m. labs. Chronic medical history includes: CAD status post CABG, status post pacemaker insertion, peripheral artery disease status post history of left BKA. Continue daily medication regimen. CODE STATUS: Full code DVT prophylaxis: heparin Discussed with: patient and RN Anticipated discharge date: clinical course to determine. Anticipated discharge place: home A total of 45 minutes was spent on the care of this complex patient more than 50% of the time was spent in counseling and care coordination. Objective - Vital Signs Vital signs: Vital Signs Temp 98.1 F 01/13/21 04:00 Pulse 82 01/13/21 04:00 Resp 20 01/13/21 04:00 BP 129/42 01/13/21 04:00 Pulse Ox 91 L 01/13/21 07:58 Intake & Output 01/12/21 01/13/21 01/13/21 18:59 06:59 18:59 Intake Total 420.908 Output Total 700 Balance -279.092 Weight 83.5 kg Intake: Intake, IV Titration 220.908 Amount Heparin Sod,Pork in 0.45% 220.908 NaCl 25,000 unit In 0.45 % NaCl 1 250ml.bag @ 11. 917 UNITS/KG/HR 10 mls/hr IV .Q24H [facility] Rx#: [id number] Oral 200 Output: Urine 700 Other: # Voids 2 - Labs CBC & Chem 7: 01/13/21 06:32 01/13/21 06:32 Labs: Abnormal Lab Results - Last 24 Hours (Table) 01/12/21 01/12/21 01/12/21 Range/Units 08:45 08:52 11:50 Hgb (11.4-16.0) gm/dL Hct (34.0-46.0) % MCV (80.0-100.0) fL MCH (25.0-35.0) pg MCHC (31.0-37.0) g/dL RDW (11.5-15.5) % PT 13.3 H (9.0-12.0) sec INR 1.3 H (<1.2) APTT (22.0-30.0) sec Carbon Dioxide (22-30) mmol/L BUN (7-17) mg/dL Creatinine (0.52-1.04) mg/dL Glucose (74-99) mg/dL POC Glucose (mg/dL) (75-99) mg/dL Troponin I 2.910 H* 3.210 H* (0.000-0.034) ng/mL 01/12/21 01/12/21 01/12/21 Range/Units 16:46 17:02 20:02 Hgb (11.4-16.0) gm/dL Hct (34.0-46.0) % MCV (80.0-100.0) fL MCH (25.0-35.0) pg MCHC (31.0-37.0) g/dL RDW (11.5-15.5) % PT (9.0-12.0) sec INR (<1.2) APTT 38.5 H (22.0-30.0) sec Carbon Dioxide (22-30) mmol/L BUN (7-17) mg/dL Creatinine (0.52-1.04) mg/dL Glucose (74-99) mg/dL POC Glucose (mg/dL) 153 H 267 H (75-99) mg/dL Troponin I (0.000-0.034) ng/mL 01/12/21 01/13/21 01/13/21 Range/Units 22:45 06:07 06:32 Hgb 9.0 L (11.4-16.0) gm/dL Hct 33.4 L (34.0-46.0) % MCV 77.1 L (80.0-100.0) fL MCH 20.8 L (25.0-35.0) pg MCHC 26.9 L (31.0-37.0) g/dL RDW 18.6 H (11.5-15.5) % PT (9.0-12.0) sec INR (<1.2) APTT 39.0 H (22.0-30.0) sec Carbon Dioxide (22-30) mmol/L BUN (7-17) mg/dL Creatinine (0.52-1.04) mg/dL Glucose (74-99) mg/dL POC Glucose (mg/dL) 151 H (75-99) mg/dL Troponin I (0.000-0.034) ng/mL 01/13/21 01/13/21 Range/Units 06:32 06:32 Hgb (11.4-16.0) gm/dL Hct (34.0-46.0) % MCV (80.0-100.0) fL MCH (25.0-35.0) pg MCHC (31.0-37.0) g/dL RDW (11.5-15.5) % PT 12.6 H (9.0-12.0) sec INR 1.2 H (<1.2) APTT 40.3 H (22.0-30.0) sec Carbon Dioxide 21 L (22-30) mmol/L BUN 52 H (7-17) mg/dL Creatinine 1.16 H (0.52-1.04) mg/dL Glucose 145 H (74-99) mg/dL POC Glucose (mg/dL) (75-99) mg/dL Troponin I (0.000-0.034) ng/mL <Ivanna Short - Last Filed: 01/13/21 20:01> Subjective Anson Bassett NP rendered care for this patient independently, reviewed the findings and plan as documented in the note above. I did not physically speak with or examine the patient on this date. Decrease Lyrica with increased confusion and worsening renal function. Objective - Vital Signs Vital signs: Vital Signs Temp 98.4 F 01/13/21 15:45 Pulse 73 01/13/21 15:45 Resp 18 01/13/21 15:45 BP 110/73 01/13/21 15:45 Pulse Ox 98 01/13/21 15:45 Intake & Output 01/13/21 01/13/21 01/14/21 06:59 18:59 06:59 Intake Total 420.908 150.472 Output Total 700 1100 Balance -279.092 -949.528 Weight 83.5 kg 83.5 kg Intake: Intake, IV Titration 220.908 150.472 Amount Heparin Sod,Pork in 0.45% 220.908 150.472 NaCl 25,000 unit In 0.45 % NaCl 1 250ml.bag @ 11. 917 UNITS/KG/HR 10 mls/hr IV .Q24H [facility] Rx#: [id number] Oral 200 Output: Urine 700 1100 Uretheral (Mathews) 450 Other: # Voids 2 - Labs CBC & Chem 7: 01/13/21 06:32 01/13/21 06:32 Labs: Abnormal Lab Results - Last 24 Hours (Table) 01/12/21 01/12/21 01/13/21 Range/Units 20:02 22:45 06:07 Hgb (11.4-16.0) gm/dL Hct (34.0-46.0) % MCV (80.0-100.0) fL MCH (25.0-35.0) pg MCHC (31.0-37.0) g/dL RDW (11.5-15.5) % PT (9.0-12.0) sec INR (<1.2) APTT 39.0 H (22.0-30.0) sec Carbon Dioxide (22-30) mmol/L BUN (7-17) mg/dL Creatinine (0.52-1.04) mg/dL Glucose (74-99) mg/dL POC Glucose (mg/dL) 267 H 151 H (75-99) mg/dL HDL Cholesterol (40.00-60.00) mg/dL 01/13/21 01/13/21 01/13/21 Range/Units 06:32 06:32 06:32 Hgb 9.0 L (11.4-16.0) gm/dL Hct 33.4 L (34.0-46.0) % MCV 77.1 L (80.0-100.0) fL MCH 20.8 L (25.0-35.0) pg MCHC 26.9 L (31.0-37.0) g/dL RDW 18.6 H (11.5-15.5) % PT 12.6 H (9.0-12.0) sec INR 1.2 H (<1.2) APTT 40.3 H (22.0-30.0) sec Carbon Dioxide (22-30) mmol/L BUN (7-17) mg/dL Creatinine (0.52-1.04) mg/dL Glucose (74-99) mg/dL POC Glucose (mg/dL) (75-99) mg/dL HDL Cholesterol 31.10 L (40.00-60.00) mg/dL 01/13/21 01/13/21 01/13/21 Range/Units 06:32 11:37 16:40 Hgb (11.4-16.0) gm/dL Hct (34.0-46.0) % MCV (80.0-100.0) fL MCH (25.0-35.0) pg MCHC (31.0-37.0) g/dL RDW (11.5-15.5) % PT (9.0-12.0) sec INR (<1.2) APTT (22.0-30.0) sec Carbon Dioxide 21 L (22-30) mmol/L BUN 52 H (7-17) mg/dL Creatinine 1.16 H (0.52-1.04) mg/dL Glucose 145 H (74-99) mg/dL POC Glucose (mg/dL) 162 H 138 H (75-99) mg/dL HDL Cholesterol (40.00-60.00) mg/dL 01/13/21 Range/Units 17:51 Hgb (11.4-16.0) gm/dL Hct (34.0-46.0) % MCV (80.0-100.0) fL MCH (25.0-35.0) pg MCHC (31.0-37.0) g/dL RDW (11.5-15.5) % PT (9.0-12.0) sec INR (<1.2) APTT 105.8 H* (22.0-30.0) sec Carbon Dioxide (22-30) mmol/L BUN (7-17) mg/dL Creatinine (0.52-1.04) mg/dL Glucose (74-99) mg/dL POC Glucose (mg/dL) (75-99) mg/dL HDL Cholesterol (40.00-60.00) mg/dL
[2021-01-13 16:21] LABS: Chol/HDL Ratio 2.53 Ratio; HDL Cholesterol 31.1 mg/dL (40.00-60.00); LDL Cholesterol,Calculated 36.4 mg/dL (0.0-131.0); Triglycerides 56.4 mg/dL (0.00-149.00); VLDL Calculation 11.28 mg/dL (5.00-40.00)
[2021-01-13 16:42] LABS: Glucose,Whole Blood 138 mg/dL (75-99)
--- NOTE | 2021-01-13 18:43 | PN ---
PROGRESS NOTE DATE OF SERVICE: 01/13/2021 REASON FOR FOLLOWUP: Right lower extremity and toe wound. INTERVAL HISTORY: The patient is afebrile. The patient is breathing comfortably. No chest pain, no cough, no abdominal pain. Pain to the right lower extremity. PHYSICAL EXAMINATION: Blood pressure 110/66, pulse 73, temp is 98.4. She is 98% on 4 L nasal cannula. General description is an elderly female lying in bed in no distress. Respiratory system: Unlabored breathing, decreased intensity of breath sounds, no wheeze. Heart S1, S2. Regular rate and rhythm. Abdomen soft, no tenderness. The right leg is currently dressed, no drainage on the dressing. LABS: Hemoglobin is 9.9, white count 7.9, creatinine is 1.16. DIAGNOSTIC IMPRESSION AND PLAN: Patient with right leg wound, postsurgical. No evidence of any cellulitis. Local care with dry Aquacel dressing to protect the wounds. Keep the area off the pressure. Continue supportive care. MMODL / IJN: [id number] /
[2021-01-13 20:26] LABS: Glucose,Whole Blood 164 mg/dL (75-99)
[2021-01-13] MEDS: MONTELUKAST 10 MG TAB PO SCH (20:39)
[2021-01-13] MEDS: INSULIN DETEMIR (LEVEMIR) 100 UNIT/ML SYR SQ SCH (20:40)
[2021-01-13 23:33] LABS: Glucose,Whole Blood 141 mg/dL (75-99)
[2021-01-13 23:55] LABS: ABG Base Excess -2.4 mmol/L; ABG HCO3 23 mmol/L (21-25); ABG Oxygen Saturation 88.7 % (94-97); ABG PCO2 43 mmHg (35-45); ABG PH 7.34 (7.35-7.45); ABG TCO2 25 mmol/L (19-24); Allen Test Performed? Yes
[2021-01-13 23:57] LABS: ABG PO2 59 mmHg (83-108)
--- NOTE | 2021-01-14 00:43 | CT ---
EXAMINATION TYPE: CT brain wo con DATE OF EXAM: 01/14/2021 COMPARISON: 01/12/2021 HISTORY: AMS CT DLP: 1121.4 mGycm Automated exposure control for dose reduction was used. Images obtained of the brain without contrast. There is cerebral cortical atrophy. There is some hypodensity in the periventricular white matter. Th ere is no mass effect nor midline shift. There is no sign of intracranial hemorrhage. Calvarium is in tact. There is fairly normal aeration of the mastoid sinuses. IMPRESSION: Cerebral atrophy. Chronic small vessel ischemia. No acute intracranial abnormality. No change.
[2021-01-14] MEDS ORDERED: LACTULOSE 200 GM/300 ML (FROM 1/2 GAL JUG) RECTAL ONE (02:41)
[2021-01-14 06:05] LABS: Glucose,Whole Blood 151 mg/dL (75-99)
[2021-01-14] MEDS: INSULIN ASPART (NovoLOG) 100 UNIT/ML VIAL SQ SCH ×4 (06:10→20:26)
[2021-01-14] MEDS: ASPIRIN 81 MG PO SCH (09:34)
[2021-01-14] MEDS: CYANOCOBALAMIN 500 MCG TAB PO SCH (09:35)
[2021-01-14] MEDS: OXcarbazepine 150 MG TAB PO SCH ×2 (09:35→21:41)
[2021-01-14] MEDS: METOPROLOL TARTRATE 25 MG TAB PO SCH ×2 (09:35→21:41)
[2021-01-14] MEDS: DONEPEZIL 10 MG TAB PO SCH (09:35)
[2021-01-14] MEDS: PREGABALIN 75 MG CAP PO SCH ×2 (09:35→21:41)
[2021-01-14] MEDS: MULTIVITAMINS, THERA 1 EACH TAB PO SCH (09:35)
[2021-01-14] MEDS: ATORVASTATIN 80 MG TAB PO SCH (09:35)
--- NOTE | 2021-01-14 11:12 | P.CONS ---
History of Present Illness - Reason for Consult Consult date: 01/14/21 wound care - History of Present Illness This is an 80-year-old patient who is seen at [facility] wound care center with Dr. Pleitez. Patient has 2 ulcerations to the right lower extremity one measuring 0.6 x 0.5 x 0.2 cm with Slough and nonviable tissue noted within the wound bed and minimal granulation. The second ulceration measures 4.5 x 0.3 x 0.3 cm fat layer exposure. The area has broken present nonviable tissue and minimal granulation. The right foot second third and fourth digits have eschar present. Per the orders of Dr. Pleitez he's been utilizing absorptive silver mostly for protection. Patient will continue to follow in the wound care center up after discharge. Patient's past medical hi story significant for heart failure, COPD, diabetes, UT, left below the knee amputation in 2019. Review Of Systems: Constitutional: No fever, no chills, no night sweats. No weight change. No weakness, fatigue or lethargy. No daytime sleepiness. Integumentary:reports wounds, no lesions. No rash or pruritus. No unusual bruising. No change in hair or nails. Physical exam: General Appearance: Alert, cooperative, no distress, appears stated age. Skin: See HPI all other Skin color, texture, tugor normal, no rashes or lesions. Neurologic: Alert oriented x3 Assessment: 1. Nonhealing ulceration right lower extremity with fat layer exposure 2. Nonhealing ulceration to forefoot with necrosis of muscle 3. Diabetic foot ulcer Plan: 1.Right lower extremity: Apply absoprtive silver, saline moist gauze, dry gauze, and rolled gauze. Secure with tape. Right foot digits: Dry absorptive silver, rolled gauze - per Dr. Pleitez orders. Thank you for the consultation any questions please contact the wound care center DNP note has been reviewed and discussed with Dr. Beauchamp and the impression and plan of care has been directed as dictated. Past Medical History Past Medical History: Heart Failure, COPD, Diabetes Mellitus, Diabetes Mellitus, Myocardial Infarction (UT), Myocardial Infarction (UT), Osteoarthritis (OA), Respiratory Disorder, Skin Disorder, Vascular Disorder Additional Past Medical History / Comment(s): Trigeminal Neuralgia, Diabetic Neuropathy, UT 1994, rosacea, Hypoxic Respiratory Failure; Raynauds; PVD; Anemia, left BKA done in 2019 Last Myocardial Infarction Date:: 1994 History of Any Multi-Drug Resistant Organisms: None Reported Past Surgical History: Appendectomy, Cholecystectomy, Heart Catheterization With Stent, Hysterectomy, Orthopedic Surgery, Pacemaker Additional Past Surgical History / Comment(s): Arthrectomy rt leg, Angioplasty, Pacemaker August 2016, left below the knee amputation, one heart stent Past Anesthesia/Blood Transfusion Reactions: No Reported Reaction Date of Last Stent Placement:: 1994 Type of Cardiac Device: Permanent Pacemaker Device Placement Date:: August 2016 Past Psychological History: No Psychological Hx Reported Smoking Status: Former smoker Past Alcohol Use History: None Reported Past Drug Use History: None Reported - Past Family History Father Family Medical History: Myocardial Infarction (UT) Mother Family Medical History: Congestive Heart Failure (CHF), CVA/TIA, Diabetes Mellitus Medications and Allergies Home Medications Medication Instructions Recorded Confirmed Type Montelukast [Singulair] 10 mg PO HS #30 tab 09/20/16 01/12/21 Rx Cyanocobalamin (Vitamin B-12) 1,000 mcg PO DAILY 07/18/17 01/12/21 History [Vitamin B-12] Losartan [Cozaar] 50 mg PO DAILY 07/18/17 01/12/21 History Rosuvastatin [Crestor] 20 mg PO DAILY 01/10/19 01/12/21 History metFORMIN HCL [Glucophage XR] 750 mg PO BID 02/15/19 01/12/21 History Apixaban [Eliquis] 5 mg PO BID 06/13/19 01/12/21 History Albuterol Inhaler [Ventolin Hfa 2 puff INHALATION RT-QID PRN 11/19/19 01/12/21 History Inhaler] Donepezil HCl [Aricept] 10 mg PO DAILY 09/06/20 01/12/21 History Fluticasone/Salmeterol [Advair Hfa 1 puff INHALATION RT-BID PRN 09/06/20 01/12/21 History 45-21 Mcg Inhaler] Insulin Glargine,Hum.rec.anlog 2 unit SQ HS 09/06/20 01/12/21 History [Lantus Solostar Pen] Liraglutide [Victoza 3-Orlin] 1.8 mg SQ DAILY 09/06/20 01/12/21 History Multivitamins, Thera [Multivitamin 1 tab PO DAILY 09/06/20 01/12/21 History (formulary)] [place]-3 Fatty Acids/Fish Oil [Fish 1 cap PO DAILY 09/06/20 01/12/21 History Oil 1,000 mg Softgel] Pregabalin [Lyrica] 225 mg PO BID 09/06/20 01/12/21 History Furosemide [Lasix] 40 mg PO DAILY 30 Days #30 tab 09/09/20 01/12/21 Rx OXcarbazepine [Trileptal] 300 mg PO BID 12/09/20 01/12/21 History hydrALAZINE HCL [Apresoline] 50 mg PO TID 12/09/20 01/12/21 History HYDROcodone/APAP 5-325MG [[place] 1 tab PO Q6HR PRN 3 Days #12 tab 12/26/20 01/12/21 Rx 5-325] Simethicone [Gas-X] 125 mg PO TID PRN 01/12/21 01/12/21 History Allergies Allergy/AdvReac Type Severity Reaction Status Date / Time codeine AdvReac Nausea & Verified 01/12/21 03:37 Vomiting sitagliptin [From [facility]] AdvReac frequent Verified 01/12/21 03:37 UTI Physical Exam Vitals: Vital Signs Temp Pulse Pulse Pulse Resp BP Pulse Ox 01/14/21 08:00 98.4 F 82 75 71 18 100/56 90 L 01/14/21 04:00 71 20 97/54 91 L 01/14/21 01:22 82 63 18 01/13/21 23:00 97.5 F L 63 18 106/63 97 01/13/21 20:00 98.0 F 82 74 18 114/67 98 01/13/21 15:45 98.4 F 73 18 110/73 98 01/13/21 12:00 98 F 67 18 108/78 98 Intake and Output 01/13/21 01/14/21 01/14/21 22:59 06:59 14:59 Intake Total 94.612 95.744 Output Total 200 550 Balance -105.388 95.744 -550 Intake: Intake, IV Titration 94.612 95.744 Amount Heparin Sod,Pork in 0.45% 94.612 95.744 NaCl 25,000 unit In 0.45 % NaCl 1 250ml.bag @ 11. 917 UNITS/KG/HR 10 mls/hr IV .Q24H [facility] Rx#: [id number] Output: Urine 200 550 Other: Weight 83.5 kg 85 kg Results CBC & Chem 7: 01/13/21 06:32 01/13/21 06:32 Labs: Abnormal Lab Results - Last 24 Hours (Table) 01/13/21 01/13/21 01/13/21 Range/Units 06:32 11:37 16:40 APTT (22.0-30.0) sec ABG pH (7.35-7.45) ABG pO2 (83-108) mmHg ABG Total CO2 (19-24) mmol/L ABG O2 Saturation (94-97) % POC Glucose (mg/dL) 162 H 138 H (75-99) mg/dL Ammonia (<30) umol/L HDL Cholesterol 31.10 L (40.00-60.00) mg/dL 01/13/21 01/13/21 01/13/21 Range/Units 17:51 20:10 23:25 APTT 105.8 H* (22.0-30.0) sec ABG pH (7.35-7.45) ABG pO2 (83-108) mmHg ABG Total CO2 (19-24) mmol/L ABG O2 Saturation (94-97) % POC Glucose (mg/dL) 164 H 141 H (75-99) mg/dL Ammonia (<30) umol/L HDL Cholesterol (40.00-60.00) mg/dL 01/13/21 01/14/21 01/14/21 Range/Units 23:45 00:36 05:28 APTT 42.2 H (22.0-30.0) sec ABG pH 7.34 L (7.35-7.45) ABG pO2 59 L* (83-108) mmHg ABG Total CO2 25 H (19-24) mmol/L ABG O2 Saturation 88.7 L (94-97) % POC Glucose (mg/dL) (75-99) mg/dL Ammonia 40 H (<30) umol/L HDL Cholesterol (40.00-60.00) mg/dL 10/22/21 Range/Units 06:03 APTT (22.0-30.0) sec ABG pH (7.35-7.45) ABG pO2 (83-108) mmHg ABG Total CO2 (19-24) mmol/L ABG O2 Saturation (94-97) % POC Glucose (mg/dL) 151 H (75-99) mg/dL Ammonia (<30) umol/L HDL Cholesterol (40.00-60.00) mg/dL Assessment and Plan (1) Non-pressure ulcer of right lower extremity with fat layer exposed Current Visit: Yes Status: Acute Code(s): L97.912 - NON-PRS CHR ULC UNSP PRT OF R LOW LEG W FAT LAYER EXPOSED SNOMED Code(s): 76699071 (2) Non-pressure chronic ulcer of other part of right foot with necrosis of muscle Current Visit: Yes Status: Acute Code(s): L97.513 - NON-PRS CHRONIC ULCER OTH PRT RIGHT FOOT W NECROS MUSCLE SNOMED Code(s): 118660148 (3) Diabetic foot ulcer Current Visit: No Status: Acute Code(s): E11.621 - TYPE 2 DIABETES MELLITUS WITH FOOT ULCER; L97.509 - NON-PRESSURE CHRONIC ULCER OTH PRT UNSP FOOT W UNSP SEVERITY SNOMED Code(s): 843968203 (4) Type 2 diabetes mellitus with foot ulcer Current Visit: No Status: Acute Code(s): E11.621 - TYPE 2 DIABETES MELLITUS WITH FOOT ULCER; L97.509 - NON-PRESSURE CHRONIC ULCER OTH PRT UNSP FOOT W UNSP SEVERITY SNOMED Code(s): 850387342
[2021-01-14 11:43] LABS: Glucose,Whole Blood 141 mg/dL (75-99)
[2021-01-14 11:47] LABS: ABG Base Excess -5.7 mmol/L; ABG HCO3 21 mmol/L (21-25); ABG Oxygen Saturation 94.1 % (94-97); ABG PCO2 40 mmHg (35-45); ABG PH 7.31 (7.35-7.45); ABG PO2 75 mmHg (83-108); ABG TCO2 22 mmol/L (19-24); Allen Test Performed? Yes
[2021-01-14 12:10] LABS: Anisocytosis Slight; HCT 33.2 % (34.0-46.0); HGB 9.3 gm/dL (11.4-16.0); Hypochromasia Marked; MCH 21.2 pg (25.0-35.0); MCV 75.8 fL (80.0-100.0); Mean Platelet Volume 9.4; Microcytosis Moderate; Platelet Count 189 k/uL (150-450); Poikilocytosis Slight; RBC 4.37 m/uL (3.80-5.40); RDW 18.6 % (11.5-15.5)
--- NOTE | 2021-01-14 12:32 | CDI ---
Documentation Clarification Form Date: 01/14/2021 11:49:53 AM From: Chantell Eller RN CCDS Admit Date: 01/12/2021 05:11:00 AM Patient Name: Ariadne Ortiz Visit Number: [id number] Discharge Date: ATTENTION: The Clinical Documentation Specialists (CDI) and [facility] Coding Staff appreciate your assistance in clarifying documentation. Please respond to the clarification below the line at the bottom and electronically sign. The CDI & [facility] Coding staff will review the response and follow-up if needed. Please note: Queries are made part of the Legal Health Record. If you have any questions, please contact the author of this message via ITS. Dr. Eugene Cross Your patient has the documented symptom of confusion 01/13/2021, Internal medicine note. Additional clarification regarding the etiology/cause of this symptom is requested. History/Risk Factors: 80-year-old female presents to the ED after a fall rolling out of bed and hitting her head on a blood thinner. Patient states that she is weak and fatigued. Medical history: CAD, HTN, CHF and DM2. 01/12 H&P Clinical Indicators: Labs: 01/12 Cr 1.19, Bun 56; 01/13 Cr 1.19, Bun 52. Internal medicine note 01/13: Decrease Lyrica with increased confusion and worsening renal function. CT Brain: 01/12 Mild cerebral atrophy. No acute intracranial abnormality. No change. CT Brain: 01/14 Cerebral atrophy. Chronic small vessel ischemia. No acute intracranial abnormality. No change. Treatment: 01/12 D/C 01/14 Lyrica 225mg PO BID. 01/13 to current Lyrica 75mg PO BID. Lyrica not given 01/14 for decreased loc by nursing. Please clarify the etiology of the symptom of Confusion: [ ] Metabolic Encephalopathy [ ] Dementia (if know, specify Type and if with/without Behavioral Disturbance) [ ] Other condition (please specify) [ ] Unable to determine (Template Last Revised: April 2020) acute metabolic encephalopathy is one the diagnosis in the note please all me if you have nay further questions [phone] [facility]
[2021-01-14 12:56] LABS: Albumin 3.3 g/dL (3.5-5.0); Calcium 8.3 mg/dL (8.4-10.2); Magnesium 2.2 mg/dL (1.6-2.3); Potassium 4.8 mmol/L (3.5-5.1); Total Bilirubin 1.1 mg/dL (0.2-1.3); Total Protein 6.6 g/dL (6.3-8.2)
--- NOTE | 2021-01-14 12:58 | P.PN ---
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 Lovell in the past. She used to follow with Dr. Gupta in the office, she has seen a hospice music therapy at [facility]. We have been asked to see in consultation for NSTEMI Patient is seen and neil stevenson in the emergency department, she is slightly confused. Patient lives with her daughter currently. Spoke with the patient's daughter, Caridad. Patient's daughter states the patient has been having more confusion, generalized weakness, decreased PO intake, and looking more "sleepy" over the past week. She states her mother is usually more active, able to do things around the house, take her own medications and feed herself. Specifically on Sunday, the daughter noticed the patient more lethargic, sleeping in her chair, she checked on her a few times. When the daughter was in another room, she heard a loud thud, and found her mother on the ground. Patient was brought to the emergency department. She denies her mother complaining of chest pain, shortness of breath, lightheadedness, dizziness or palpitations. However she states that her mom has been having increased confusion and unable to get an adequate answer from her. It is unclear if patient has had coronary artery disease with stenting in the past, daughter is not aware of where stents have been placed. 01/14/21: Patient examined at bedside, she continues to be confused, alert and oriented to person. She is not following commands. Her ammonia was elevated and was given Lactulose. Blood pressure 100/56 HR 75, afebrile 90% on 2L nasal cannula. Troponin trend 3.22.9-3.2. Echocardiogram revealed EF of 4045 percent, increased grade 2 diastolic dysfunction, mid inferior, apical lateral and mid inferior lateral miranda hypokinetic, LA severely dilated, mild maturity, mild tricuspid to show, mild pulmonary hypertension. She is currently maintained on aspirin 81mg daily, atorvastatin 80 mg nightly, IV heparin drip, metoprolol tartrate 25 mg twice a day. Laboratory data review WBC 7.7, hemoglobin 9.3 platelets 189. CMP pending. Infectious diseases consult physician not recommending antibiotic therapy at this time. Telemetry reviewed patient in atrial fibrillation with controlled ventricular rates. PHYSICAL EXAMINATION CONSTITUTIONAL: Confused HEENT: Neck supple. No JVD. CHEST EXAMINATION: Lungs are diminished bilaterally to auscultation. Some mild wheezing noted. No chest wall tenderness is noted on palpation or with deep breathing. HEART EXAMINATION: Regular rate and rhythm. S1, S2 heard. Systolic murmur at apex. ABDOMEN: Soft, nontender. Positive bowel sounds. EXTREMITIES: 2+ peripheral pulses, no lower extremity edema and no calf tenderness. NEUROLOGIC EXAMINATION: Patient is awake, oriented x1. Unaware of current hospital situation. 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 -We recommend the above treatment. No further changes from a cardiology perspective at this time. We will follow the patient as needed. Please reconsult if needed. Nurse Practitioner note has been reviewed, I agree with a documented findings and plan of care. Patient was seen and examined. Objective - Vital Signs Vital signs: Vital Signs Temp 98.4 F 01/14/21 08:00 Pulse 82 01/14/21 08:00 Resp 18 01/14/21 08:00 BP 100/56 01/14/21 08:00 Pulse Ox 90 L 01/14/21 08:00 Intake & Output 01/13/21 01/14/21 01/14/21 18:59 06:59 18:59 Intake Total 150.472 95.744 Output Total 1100 550 Balance -949.528 95.744 -550 Weight 83.5 kg 85 kg Intake: Intake, IV Titration 150.472 95.744 Amount Heparin Sod,Pork in 0.45% 150.472 95.744 NaCl 25,000 unit In 0.45 % NaCl 1 250ml.bag @ 11. 917 UNITS/KG/HR 10 mls/hr IV .Q24H [facility] Rx#: [id number] Output: Urine 1100 550 Uretheral (Mathews) 450 - Labs CBC & Chem 7: 01/14/21 11:48 01/13/21 06:32 Labs: Abnormal Lab Results - Last 24 Hours (Table) 01/13/21 01/13/21 01/13/21 Range/Units 06:32 16:40 17:51 Hgb (11.4-16.0) gm/dL Hct (34.0-46.0) % MCV (80.0-100.0) fL MCH (25.0-35.0) pg MCHC (31.0-37.0) g/dL RDW (11.5-15.5) % APTT 105.8 H* (22.0-30.0) sec ABG pH (7.35-7.45) ABG pO2 (83-108) mmHg ABG Total CO2 (19-24) mmol/L ABG O2 Saturation (94-97) % POC Glucose (mg/dL) 138 H (75-99) mg/dL Ammonia (<30) umol/L HDL Cholesterol 31.10 L (40.00-60.00) mg/dL 01/13/21 01/13/21 01/13/21 Range/Units 20:10 23:25 23:45 Hgb (11.4-16.0) gm/dL Hct (34.0-46.0) % MCV (80.0-100.0) fL MCH (25.0-35.0) pg MCHC (31.0-37.0) g/dL RDW (11.5-15.5) % APTT (22.0-30.0) sec ABG pH 7.34 L (7.35-7.45) ABG pO2 59 L* (83-108) mmHg ABG Total CO2 25 H (19-24) mmol/L ABG O2 Saturation 88.7 L (94-97) % POC Glucose (mg/dL) 164 H 141 H (75-99) mg/dL Ammonia (<30) umol/L HDL Cholesterol (40.00-60.00) mg/dL 01/14/21 01/14/21 01/14/21 Range/Units 00:36 05:28 06:03 Hgb (11.4-16.0) gm/dL Hct (34.0-46.0) % MCV (80.0-100.0) fL MCH (25.0-35.0) pg MCHC (31.0-37.0) g/dL RDW (11.5-15.5) % APTT 42.2 H (22.0-30.0) sec ABG pH (7.35-7.45) ABG pO2 (83-108) mmHg ABG Total CO2 (19-24) mmol/L ABG O2 Saturation (94-97) % POC Glucose (mg/dL) 151 H (75-99) mg/dL Ammonia 40 H (<30) umol/L HDL Cholesterol (40.00-60.00) mg/dL 01/14/21 01/14/21 01/14/21 Range/Units 11:41 11:45 11:48 Hgb 9.3 L (11.4-16.0) gm/dL Hct 33.2 L (34.0-46.0) % MCV 75.8 L (80.0-100.0) fL MCH 21.2 L (25.0-35.0) pg MCHC 28.0 L (31.0-37.0) g/dL RDW 18.6 H (11.5-15.5) % APTT (22.0-30.0) sec ABG pH 7.31 L (7.35-7.45) ABG pO2 75 L (83-108) mmHg ABG Total CO2 (19-24) mmol/L ABG O2 Saturation (94-97) % POC Glucose (mg/dL) 141 H (75-99) mg/dL Ammonia (<30) umol/L HDL Cholesterol (40.00-60.00) mg/dL
--- NOTE | 2021-01-14 13:29 | P.CNNES ---
History of Present Illness Consult date: 01/14/21 Requesting physician: Anson Bassett Reason for Consult: decreasing mentation History of Present Illness: Patient is a 80-year-old female came to the hospital by ambulance on 01/12/2021 for a fall, non-STEMI, atrial flutter, altered mental status and dementia. Patient had a computed tomography scan of the head which revealed mild cerebral atrophy, no acute process. CT of the cervical spine showed mild cervical spondylitic changes, no fracture. EKG shows atrial fibrillation. Patient was started on heparin IV and also on aspirin 81 mg and Lipitor 80 mg. Patient had a 2-D echo which was suboptimal views. Left ventricle size is normal. Moderate concentric LVH. EF is between 40-45%. Midinferior, apical lateral and mid inferior lateral left-ventricular wall motion are hypokinetic. Left atrium is severely dilated. Mild MR. Patient not able to provide any history. According to the report from staff, patient does have history of dementia. Her mental functioning have been declining for the last 2 days. Patient apparently was still conversing yesterday, was able to tell about her wound in the leg, but t go she is not speaking, this morning, therefore neurology was consulted. Patient had a repeat computed tomography scan of head without contrast performed today, which revealed cerebral atrophy, chronic small vessel ischemic change. No acute process. Her blood test shows normal WBC hemoglobin 9.3, platelets 189. ABG with pH 7.31, pCO2 40, pO2 75 and saturation 94.1% on 28 percent FiO2. Ammonia is mildly elevated 40. Lactulose was given. Lactate is normal. Patient's telemetry monitoring showing atrial flutter, atrial fibrillation, V paced rhythm. Some bundle-branch block, PVCs. Some couplets. I spoke to patient's daughter on the phone, who states that patient has history of amputation of the left leg in May 2019. She lives with her daughter. She is able to scoot from her bed to the wheelchair to the commode and then back to her bed. She also can transfer herself from wheelchair to the recliner and back to the wheelchair. She also helps her daughter out sometimes for doing dishes while standing on one leg and doing laundry. Patient's daughter states that at that time she had her leg amputation, she has been told that patient has vascular dementia. In the symptoms may have been present for 6 months prior. Patient's daughter states that if you ask mother question, she has "slow-motion brain", but she does give an answer although with a delay. Patient's daughter also mentions that whenever she goes to the hospital, she typically acts like this when she moans groans and would not talk. However when she is home, patient starts communicating. This is happened multiple times in the past. She is a totally different person at home as compared to how she is in the hospital. Patient's daughter tries to encourage and push for her to communicate or do activities. However patient's daughter believes that she "gets away with things" while she is in the hospital, when "she is left to lay there". Patient's daughter believes that she had "habit of complaining of pain". Some days she would complain she has no pain 0/10. Other days she would complain of having pain 13 on a scale of 1-10. Patient's daughter further states that she brought the patient to the hospital, after patient suffered from a fall at home. Patient's daughter was downstairs. She did not hear any fall, but heard her mother calling for help. When she came to see her, she was laying on the opposite side of the bed where the wheelchair was. She was caught in between the bed and the wall. She was complaining of leg hurting. Patient's daughter called the ambulance and she was brought to the hospital, where she was found to have an acute VT. Patient has a pacemaker, hypertension. Review of Systems ROS unobtainable: due to mental status Past Medical History Past Medical History: Heart Failure, COPD, Diabetes Mellitus, Diabetes Mellitus, Myocardial Infarction (VT), Myocardial Infarction (VT), Osteoarthritis (OA), Respiratory Disorder, Skin Disorder, Vascular Disorder Additional Past Medical History / Comment(s): Trigeminal Neuralgia, Diabetic Neuropathy, VT 1994, rosacea, Hypoxic Respiratory Failure; Raynauds; PVD; Anemia, left BKA done in 2019 Last Myocardial Infarction Date:: 1994 History of Any Multi-Drug Resistant Organisms: None Reported Past Surgical History: Appendectomy, Cholecystectomy, Heart Catheterization With Stent, Hysterectomy, Orthopedic Surgery, Pacemaker Additional Past Surgical History / Comment(s): Arthrectomy rt leg, Angioplasty, Pacemaker August 2016, left below the knee amputation, one heart stent Past Anesthesia/Blood Transfusion Reactions: No Reported Reaction Date of Last Stent Placement:: 1994 Type of Cardiac Device: Permanent Pacemaker Device Placement Date:: August 2016 Past Psychological History: No Psychological Hx Reported Smoking Status: Former smoker Past Alcohol Use History: None Reported Past Drug Use History: None Reported - Past Family History Father Family Medical History: Myocardial Infarction (VT) Mother Family Medical History: Congestive Heart Failure (CHF), CVA/TIA, Diabetes Mellitus Medications and Allergies Home Medications Medication Instructions Recorded Confirmed Type Montelukast [Singulair] 10 mg PO HS #30 tab 09/20/16 01/12/21 Rx Cyanocobalamin (Vitamin B-12) 1,000 mcg PO DAILY 07/18/17 01/12/21 History [Vitamin B-12] Losartan [Cozaar] 50 mg PO DAILY 07/18/17 01/12/21 History Rosuvastatin [Crestor] 20 mg PO DAILY 01/10/19 01/12/21 History metFORMIN HCL [Glucophage XR] 750 mg PO BID 02/15/19 01/12/21 History Apixaban [Eliquis] 5 mg PO BID 06/13/19 01/12/21 History Albuterol Inhaler [Ventolin Hfa 2 puff INHALATION RT-QID PRN 11/19/19 01/12/21 History Inhaler] Donepezil HCl [Aricept] 10 mg PO DAILY 09/06/20 01/12/21 History Fluticasone/Salmeterol [Advair Hfa 1 puff INHALATION RT-BID PRN 09/06/20 01/12/21 History 45-21 Mcg Inhaler] Insulin Glargine,Hum.rec.anlog 2 unit SQ HS 09/06/20 01/12/21 History [Lantus Solostar Pen] Liraglutide [Victoza 3-Orlin] 1.8 mg SQ DAILY 09/06/20 01/12/21 History Multivitamins, Thera [Multivitamin 1 tab PO DAILY 09/06/20 01/12/21 History (formulary)] [place]-3 Fatty Acids/Fish Oil [Fish 1 cap PO DAILY 09/06/20 01/12/21 History Oil 1,000 mg Softgel] Pregabalin [Lyrica] 225 mg PO BID 09/06/20 01/12/21 History Furosemide [Lasix] 40 mg PO DAILY 30 Days #30 tab 09/09/20 01/12/21 Rx OXcarbazepine [Trileptal] 300 mg PO BID 12/09/20 01/12/21 History hydrALAZINE HCL [Apresoline] 50 mg PO TID 12/09/20 01/12/21 History HYDROcodone/APAP 5-325MG [Cyrus 1 tab PO Q6HR PRN 3 Days #12 tab 12/26/20 01/12/21 Rx 5-325] Simethicone [Gas-X] 125 mg PO TID PRN 01/12/21 01/12/21 History Allergies Allergy/AdvReac Type Severity Reaction Status Date / Time codeine AdvReac Nausea & Verified 01/12/21 03:37 Vomiting sitagliptin [From ] AdvReac frequent Verified 01/12/21 03:37 UTI Physical Examination - Vital Signs Vital Signs: Vital Signs Temp Pulse Pulse Pulse Resp BP Pulse Ox 01/14/21 08:00 98.4 F 82 75 71 18 100/56 90 L 01/14/21 04:00 71 20 97/54 91 L 01/14/21 01:22 82 63 18 01/13/21 23:00 97.5 F L 63 18 106/63 97 01/13/21 20:00 98.0 F 82 74 18 114/67 98 01/13/21 15:45 98.4 F 73 18 110/73 98 Intake and Output 01/13/21 01/14/21 01/14/21 22:59 06:59 14:59 Intake Total 94.612 95.744 Output Total 200 550 Balance -105.388 95.744 -550 Intake: Intake, IV Titration 94.612 95.744 Amount Heparin Sod,Pork in 0.45% 94.612 95.744 NaCl 25,000 unit In 0.45 % NaCl 1 250ml.bag @ 11. 917 UNITS/KG/HR 10 mls/hr IV .Q24H [facility] Rx#: [id number] Output: Urine 200 550 Other: Weight 83.5 kg 85 kg Patient is an elderly female, who is laying in the bed, moaning, groaning "o-mama" "aaoo-aaoo". Patient is encephalopathic, moaning, groaning. Patient not cooperating to check for speech and language functions. Only one time patient said "yes" when I called her name but otherwise did not speak. She did not even tell me her name. Patient does not follow commands, just moaning. Attention, concentration and fund of knowledge is severely limited. On cranial examination, pupils are round and reacting to light, visual lindo could not be tested, extraocular muscles are intact based upon positive oculocephalics, but she did not voluntarily move the gaze to the sides. Face is symmetric, did not protrude her tongue. Palatal elevation and sensation cannot be assessed, hearing and shoulder shrug and facial sensations cannot be assessed. On muscle strength testing, patient did not cooperate with examination at all. Patient could not hold her arms up passively. She drops it down equally. Patient has left below-knee amputation. Patient right leg has bandage. Deep tendon reflexes are very diminished to absent, plantar is flat on the right. Sensory to touch cannot be assessed. Patient did moan equally to painful stimuli involving upper extremities. Cerebellar function cannot be tested. Tone and bulk of muscles normal. Gait not able to be checked. On general examination, there is no carotid bruit or murmur, S1-S2 audible. Abdomen is soft nontender. Chest is clear. Patient has left below-knee amputation. Patient has bruises in her arms and legs. Some purplish discoloration of the right foot. Results - Laboratory Findings CBC and BMP: 01/14/21 11:48 01/14/21 11:48 Abnormal Lab Findings: Abnormal Labs 01/12/21 01/12/21 01/12/21 03:42 03:42 03:42 Hgb 9.0 L Hct 32.2 L MCV 75.2 L MCH 20.9 L MCHC 27.9 L RDW 18.8 H PT 13.3 H INR 1.3 H APTT ABG pH ABG pO2 ABG Total CO2 ABG O2 Saturation Sodium Carbon Dioxide BUN Creatinine Glucose POC Glucose (mg/dL) Plasma Lactic Acid Naveen AST Alkaline Phosphatase Ammonia Troponin I HDL Cholesterol Urine Appearance Cloudy H Urine Protein 1+ H Urine WBC 21 H Urine Bacteria Rare H Hyaline Casts 30 H Urine Mucus Few H 01/12/21 01/12/21 01/12/21 03:42 03:42 03:48 Hgb Hct MCV MCH MCHC RDW PT INR APTT ABG pH ABG pO2 ABG Total CO2 ABG O2 Saturation Sodium 136 L Carbon Dioxide BUN 56 H Creatinine 1.19 H Glucose 123 H POC Glucose (mg/dL) Plasma Lactic Acid Naveen 2.2 H* AST 46 H Alkaline Phosphatase 189 H Ammonia Troponin I 3.290 H* HDL Cholesterol Urine Appearance Urine Protein Urine WBC Urine Bacteria Hyaline Casts Urine Mucus 01/12/21 01/12/21 01/12/21 08:45 08:52 11:50 Hgb Hct MCV MCH MCHC RDW PT 13.3 H INR 1.3 H APTT ABG pH ABG pO2 ABG Total CO2 ABG O2 Saturation Sodium Carbon Dioxide BUN Creatinine Glucose POC Glucose (mg/dL) Plasma Lactic Acid Naveen AST Alkaline Phosphatase Ammonia Troponin I 2.910 H* 3.210 H* HDL Cholesterol Urine Appearance Urine Protein Urine WBC Urine Bacteria Hyaline Casts Urine Mucus 01/12/21 01/12/21 01/12/21 16:46 17:02 20:02 Hgb Hct MCV MCH MCHC RDW PT INR APTT 38.5 H ABG pH ABG pO2 ABG Total CO2 ABG O2 Saturation Sodium Carbon Dioxide BUN Creatinine Glucose POC Glucose (mg/dL) 153 H 267 H Plasma Lactic Acid Naveen AST Alkaline Phosphatase Ammonia Troponin I HDL Cholesterol Urine Appearance Urine Protein Urine WBC Urine Bacteria Hyaline Casts Urine Mucus 01/12/21 01/13/21 01/13/21 22:45 06:07 06:32 Hgb Hct MCV MCH MCHC RDW PT INR APTT 39.0 H ABG pH ABG pO2 ABG Total CO2 ABG O2 Saturation Sodium Carbon Dioxide BUN Creatinine Glucose POC Glucose (mg/dL) 151 H Plasma Lactic Acid Naveen AST Alkaline Phosphatase Ammonia Troponin I HDL Cholesterol 31.10 L Urine Appearance Urine Protein Urine WBC Urine Bacteria Hyaline Casts Urine Mucus 01/13/21 01/13/21 01/13/21 06:32 06:32 06:32 Hgb 9.0 L Hct 33.4 L MCV 77.1 L MCH 20.8 L MCHC 26.9 L RDW 18.6 H PT 12.6 H INR 1.2 H APTT 40.3 H ABG pH ABG pO2 ABG Total CO2 ABG O2 Saturation Sodium Carbon Dioxide 21 L BUN 52 H Creatinine 1.16 H Glucose 145 H POC Glucose (mg/dL) Plasma Lactic Acid Naveen AST Alkaline Phosphatase Ammonia Troponin I HDL Cholesterol Urine Appearance Urine Protein Urine WBC Urine Bacteria Hyaline Casts Urine Mucus 01/13/21 01/13/21 01/13/21 11:37 16:40 17:51 Hgb Hct MCV MCH MCHC RDW PT INR APTT 105.8 H* ABG pH ABG pO2 ABG Total CO2 ABG O2 Saturation Sodium Carbon Dioxide BUN Creatinine Glucose POC Glucose (mg/dL) 162 H 138 H Plasma Lactic Acid Naveen AST Alkaline Phosphatase Ammonia Troponin I HDL Cholesterol Urine Appearance Urine Protein Urine WBC Urine Bacteria Hyaline Casts Urine Mucus 01/13/21 01/13/21 01/13/21 20:10 23:25 23:45 Hgb Hct MCV MCH MCHC RDW PT INR APTT ABG pH 7.34 L ABG pO2 59 L* ABG Total CO2 25 H ABG O2 Saturation 88.7 L Sodium Carbon Dioxide BUN Creatinine Glucose POC Glucose (mg/dL) 164 H 141 H Plasma Lactic Acid Naveen AST Alkaline Phosphatase Ammonia Troponin I HDL Cholesterol Urine Appearance Urine Protein Urine WBC Urine Bacteria Hyaline Casts Urine Mucus 01/14/21 01/14/21 01/14/21 00:36 05:28 06:03 Hgb Hct MCV MCH MCHC RDW PT INR APTT 42.2 H ABG pH ABG pO2 ABG Total CO2 ABG O2 Saturation Sodium Carbon Dioxide BUN Creatinine Glucose POC Glucose (mg/dL) 151 H Plasma Lactic Acid Naveen AST Alkaline Phosphatase Ammonia 40 H Troponin I HDL Cholesterol Urine Appearance Urine Protein Urine WBC Urine Bacteria Hyaline Casts Urine Mucus 01/14/21 01/14/21 01/14/21 11:41 11:45 11:48 Hgb 9.3 L Hct 33.2 L MCV 75.8 L MCH 21.2 L MCHC 28.0 L RDW 18.6 H PT INR APTT ABG pH 7.31 L ABG pO2 75 L ABG Total CO2 ABG O2 Saturation Sodium Carbon Dioxide BUN Creatinine Glucose POC Glucose (mg/dL) 141 H Plasma Lactic Acid Naveen AST Alkaline Phosphatase Ammonia Troponin I HDL Cholesterol Urine Appearance Urine Protein Urine WBC Urine Bacteria Hyaline Casts Urine Mucus Assessment and Plan Assessment: * 80-year-old female brought to the hospital status post fall off the bed. * Acute myocardial infarction. * Altered mental status, probable toxic metabolic encephalopathy. Causes are multifactorial as mentioned below * Anemia * Metabolic acidosis with hypoxemia * Moderate renal insufficiency, slightly worsening. * Elevated ammonia, minimally abnormal liver functions. * Atrial fibrillation * CHF with low ejection fraction 40-45%. * History of vascular dementia * Hypertension * Diabetes * PVD * CAD * History of left below knee amputation. Plan: * EEG evaluate for encephalopathy, rule out seizure activity. * Carotid Doppler. * Patient is currently on heparin for atrial fibrillation, with most recent PTT is 42.2. Patient was on Apixaban 5 mg bid prior to arrival. * Continue lactulose for elevated ammonia, which now has returned back to normal 16. * Your medical management. * We will follow clinically.
--- NOTE | 2021-01-14 14:10 | US ---
EXAMINATION TYPE: US carotid duplex BILAT DATE OF EXAM: 01/14/2021 COMPARISON: CT brain CLINICAL HISTORY: AMS, unresponsive. Patient is not able to answer questions; dementia; PVOD EXAM MEASUREMENTS: RIGHT: Peak Systolic Velocity (PSV) cm/sec ----- Right CCA: 65.5 ----- Right ICA: 106.9 ----- Right ECA: 170.2 ICA/CCA ratio: 1.6 RIGHT: End Diastole cm/sec ----- Right CCA: 12.4 ----- Right ICA: 17.6 ----- Right ECA: 0.0 LEFT: Peak Systolic Velocity (PSV) cm/sec ----- Left CCA: 66.8 ----- Left ICA: 154.3 ----- Left ECA: 143.8 ICA/CCA ratio: 2.3 LEFT: End Diastole cm/sec ----- Left CCA: 13.7 ----- Left ICA: 29.2 ----- Left ECA: 0.0 VERTEBRALS (direction of flow): Right Vertebral: Antegrade Left Vertebral: Antegrade Rhythm: Arrhythmia Hyperechoic irregular wall plaque seen at bilateral carotid bifurcation with abnormally elevated PSV in Right ECA and in Left ICA and Left ECA. Right ICA and ECA tortuosity noted with high bifurcation . IMPRESSION: 1. There is irregular atherosclerotic plaque bilaterally at the level of the carotid bifurcation. Fin dings suggest cardiac dysrhythmia. Recommend dedicated CTA of the neck\carotid bifurcation. 2. Approximately 50-69% stenosis proximal left ICA. Criteria for Assigning % of Stenosis / Diameter reduction (Estimation based on the indirect measurements of the internal carotid artery velocities (ICA PSV). 1. Normal (no stenosis)=ICA PSV < 125 cm/s: ratio < 2.0: ICA EDV<40 cm/s. 2. Less than 50% stenosis=ICA PSV < 125 cm/s: ratio < 2.0: ICA EDV<40 cm/s. 3. 50 to 69% stenosis=ICA PSV of 125 to 230 cm/s: ration 2.0 ? 4.0: ICA EDV 40-100 cm/s. 4. Greater than 70% stenosis to near occlusion= ICA PSV > 230 cm/s: ratio > 4.0: ICA EDV > 100 cm/s. 5. Near occlusion= ICA PSV velocities may be low or undetectable: variable ratio and ICA EDV. 6. Total occlusion=unable to detect flow.
[2021-01-14 14:23] LABS: Lymphocytes # (M) 0.98 k/uL (1.0-4.8); Metamyelocytes # (M) 0.15 k/uL (0); Metamyelocytes % 2 %; Neutrophils # (M) 5.85 k/uL (1.3-7.7); Neutrophils % (M) 78 %; Nucleated Red Blood Cells 2 /100 WBC (0-0); Total Cells Counted 200; WBC 7.5 k/uL (3.8-10.6)
[2021-01-14 14:24] LABS: Polychromasia Present
--- NOTE | 2021-01-14 16:07 | P.PN ---
Subjective Progress Note Date: 01/14/21 History of Presenting Illness: Patient is a very pleasant 80-year-old female with a past medical history of CAD status post CABG, pacemaker, hypertension, hyperlipidemia, atrial fibrillation on anticoagulation with Eliquis, chronic diastolic heart failure with preserved EF 50-55%, insulin dependent diabetes mellitus, Dementia, peripheral artery disease, and history of left BKA. Patient presented to the emergency department with a chief complaint of fall status post rolling out of bed and hitting her head on a blood thinner. Patient denied having a loss of consciousness. In the emergency department, patient underwent CT brain and cervical spine negative for acute intercranial process showing mild cerebral atrophy and cervical spondylitic changes with no fracture. X-ray of pelvis negative for acute abnormality showing no fractures. A chest x-ray revealing congestive heart failure with pleural effusions and cardiomegaly. Labs revealed lactic acidosis with a lactate of 2.2, elevated troponin 3.290, and an Acute kidney injury with BUN of 56, creatinine 1.19, and GFR of 43 with baseline creatinine being 0.6. Patient was started on heparin infusion and admitted under our services consultation to cardiology. Patient also reports she is following outpatient with Dr. Pleitez for continued wound care and management of delayed healing of surgical wound to right lower extremity. Physical exam: Patient seen at the bedside this morning. Mentation continues to worsen. Called and discussed patient's status with patient's daughter who states patient does get altered while in the hospital however I informed daughter that upon first day of admission patient was able to state name, date of , place, and physician she sees on an outpatient basis...second day the patient was able to state her name and date of but was confused to place and situation, and this morning patient is unable to even tell me her name. Ammonia was initially elevated at 40 and patient received a dose of lactulose and is now back to normal at 16. ABG revealing slight compensated respiratory acidosis with pH of 7.31, pCO2 of 40, pO2 75, bicarb 21, and O2 sat of 94.1. Patient was on 2 L O2 via nasal cannula at that time with SPO2 of 90%, oxygen increased to 3L improving SpO2 to 95%. Patient nonverbal and unable to answer any questions. She does not appear to be in any pain. CT of head was completed overnight due to worsening mentation and was negative for acute intercranial process. Discussed findings with the neurologist and neurology placed on consult. Patient's daughter states that her brother will be in later today to discuss further. Vital signs reviewed and stable. General: Nontoxic, no distress and appears stated age. Derm: Skin warm and dry, normal coloration for ethnicity. Head: Atraumatic, normocephalic and symmetric. Eyes: EOMs intact, no lid lag, and anicteric sclera Mouth: no lip lesions, mucus membranes dry Cardiovascular: Irregularly irregular rhythm with normal S1S2, no murmur, positive posterior tibial pulse to right lower extremity, and cap refill < 2 seconds. Lungs: Respirations even, regular, and unlabored on 4 L O2 via nasal cannula. Lungs diminished at bases otherwise no rhonchi, no rales, no crackles, no wheezing, and no accessory muscle usage. Abdominal: soft, nontender to palpation, no guarding, no appreciable organomegaly Ext: Left BKA. Right lower extremity dressing intact. Neuro: Speech clear, face symmetrical and CN II-XII grossly intact with no noted focal neuro deficits Psych: Alert to person only. normal baseline mentation per daughter. Assessment and Plan of Care: NSTEMI Acute on chronic systolic and diastolic heart failure, systolic newly discovered Troponin elevated at 3.290. Trend troponins x3 Echocardiogram revealing a mild to moderately impaired EF 40-45% with left ventricular wall showing hypokinetic motion, mild mitral and tricuspid regurgitation and mild pulmonary hypertension, previous echocardiogram completed 09/06/20 revealed a preserved EF between 50 and 55%. Telemetry monitoring Cardiology consulted, appreciate further recommendations Continue aspirin and atorvastatin. Losartan held secondary to EDOUARD. Acute Metabolic encephalopathy, likely multifactorial due to cardiogenic etiology, metabolic acidosis with hypoxemia, acute kidney injury, and elevated ammonia levels. -Neuro checks every 4 hours -Consult neurology -CT brain negative for acute intracranial process. -Oxygenation supplementation was increased to 3 L due ABG revealing PaO2 of 75, will continue to titrate as needed -Ammonia levels initially elevated at 40 after dose of lactulose now back to normal at 16. -Continue telemetry monitoring Acute kidney injury Hold Nephrotoxic medications including furosemide, hydralazine, and losartan. Continue gentle hydration with IV fluids. Continue close monitoring with repeat a.m. labs. Right lower extremity wound Patient reports following outpatient with Dr. Pleitez for wound care and antibiotic therapy. Consult placed to Dr. Pleitez. Insulin-dependent diabetes mellitus Continue nightly Levemir and place patient on NovoLog sliding scale. Hypertension Monitor vital signs and Hold losartan secondary to EDOUARD, patient started on metoprolol 25 mg twice a day. Hyperlipidemia Continue atorvastatin 80 mg daily. Atrial fibrillation Hold Eliquis and continue heparin infusion pending further recommendations from cardiology. Anemia of chronic disease Hemoglobin stable 9.3, currently at baseline levels. We will continue to monitor with repeat a.m. labs. Chronic medical history includes: CAD status post CABG, status post pacemaker insertion, peripheral artery disease status post history of left BKA. Continue daily medication regimen. CODE STATUS: Full code DVT prophylaxis: heparin Discussed with: patient and RN and patient's daughter Anticipated discharge date: clinical course to determine. Anticipated discharge place: home A total of 45 minutes was spent on the care of this complex patient more than 50% of the time was spent in counseling and care coordination. Objective - Vital Signs Vital signs: Vital Signs Temp 97.5 F L 01/13/21 23:00 Pulse 71 01/14/21 04:00 Resp 20 01/14/21 04:00 BP 97/54 01/14/21 04:00 Pulse Ox 91 L 01/14/21 04:00 Intake & Output 01/13/21 01/14/21 01/14/21 18:59 06:59 18:59 Intake Total 150.472 95.744 Output Total 1100 Balance -949.528 95.744 Weight 83.5 kg 85 kg Intake: Intake, IV Titration 150.472 95.744 Amount Heparin Sod,Pork in 0.45% 150.472 95.744 NaCl 25,000 unit In 0.45 % NaCl 1 250ml.bag @ 11. 917 UNITS/KG/HR 10 mls/hr IV .Q24H [facility] Rx#: [id number] Output: Urine 1100 Uretheral (Mathews) 450 - Labs CBC & Chem 7: 01/14/21 11:48 01/14/21 11:48 Labs: Abnormal Lab Results - Last 24 Hours (Table) 01/13/21 01/13/21 01/13/21 Range/Units 06:32 11:37 16:40 APTT (22.0-30.0) sec ABG pH (7.35-7.45) ABG pO2 (83-108) mmHg ABG Total CO2 (19-24) mmol/L ABG O2 Saturation (94-97) % POC Glucose (mg/dL) 162 H 138 H (75-99) mg/dL Ammonia (<30) umol/L HDL Cholesterol 31.10 L (40.00-60.00) mg/dL 01/13/21 01/13/21 01/13/21 Range/Units 17:51 20:10 23:25 APTT 105.8 H* (22.0-30.0) sec ABG pH (7.35-7.45) ABG pO2 (83-108) mmHg ABG Total CO2 (19-24) mmol/L ABG O2 Saturation (94-97) % POC Glucose (mg/dL) 164 H 141 H (75-99) mg/dL Ammonia (<30) umol/L HDL Cholesterol (40.00-60.00) mg/dL 01/13/21 01/14/21 01/14/21 Range/Units 23:45 00:36 05:28 APTT 42.2 H (22.0-30.0) sec ABG pH 7.34 L (7.35-7.45) ABG pO2 59 L* (83-108) mmHg ABG Total CO2 25 H (19-24) mmol/L ABG O2 Saturation 88.7 L (94-97) % POC Glucose (mg/dL) (75-99) mg/dL Ammonia 40 H (<30) umol/L HDL Cholesterol (40.00-60.00) mg/dL 01/14/21 Range/Units 06:03 APTT (22.0-30.0) sec ABG pH (7.35-7.45) ABG pO2 (83-108) mmHg ABG Total CO2 (19-24) mmol/L ABG O2 Saturation (94-97) % POC Glucose (mg/dL) 151 H (75-99) mg/dL Ammonia (<30) umol/L HDL Cholesterol (40.00-60.00) mg/dL
[2021-01-14 16:41] LABS: Glucose,Whole Blood 136 mg/dL (75-99)
[2021-01-14] MEDS: HEPARIN SOD,PORK IN 0.45% NACL 25,000 UNIT in 0.45% NACL 1 250ML.BAG IV SCH (18:26)
--- NOTE | 2021-01-14 18:29 | PN ---
PROGRESS NOTE DATE OF SERVICE: 01/14/2021 REASON FOR FOLLOWUP: Right lower extremity wound, post surgical. INTERVAL HISTORY: The patient is afebrile. The patient is currently breathing comfortably. The patient denies having any chest pain. No shortness of breath or cough. No abdominal pain or any diarrhea. PHYSICAL EXAMINATION: Blood pressure 111/56, pulse of 77, temperature 98. She is 98% on 2 L nasal cannula. General description is an elderly female lying in bed in no distress. Respiratory system: Unlabored breathing, clear to auscultation anteriorly. Heart S1, S2. Regular rate and rhythm. Abdomen soft, no tenderness. Right lower extremity wrapped, no obvious drainage on the dressing. LABS: Hemoglobin 9.8, white count 7.5, creatinine 1.5. DIAGNOSTIC IMPRESSION AND PLAN: Patient with right lower extremity wound, no evidence of any cellulitis. Local care to continue with Aquacel Silver dressing. No need for Anthony wrap. Continue supportive care. MMODL / IJN: [id number] /
[2021-01-14 20:03] LABS: Glucose,Whole Blood 130 mg/dL (75-99)
[2021-01-14] MEDS: INSULIN DETEMIR (LEVEMIR) 100 UNIT/ML SYR SQ SCH (21:40)
[2021-01-14] MEDS: MONTELUKAST 10 MG TAB PO SCH (21:41)
[2021-01-15] MEDS ORDERED: HEPARIN SODIUM,PORCINE/PF 5,000 UNIT/0.5 ML SYRINGE SQ SCH
[2021-01-15] MEDS: HYDROcodone/APAP 5-325MG 1 EACH TAB PO PRN ×2 (05:41→16:06)
[2021-01-15 06:13] LABS: Glucose,Whole Blood 168 mg/dL (75-99)
[2021-01-15] MEDS: INSULIN ASPART (NovoLOG) 100 UNIT/ML VIAL SQ SCH ×4 (06:46→20:14)
[2021-01-15] MEDS: ATORVASTATIN 80 MG TAB PO SCH (08:25)
[2021-01-15] MEDS: METOPROLOL TARTRATE 25 MG TAB PO SCH ×3 (08:25→21:44)
[2021-01-15] MEDS: MULTIVITAMINS, THERA 1 EACH TAB PO SCH (08:26)
[2021-01-15] MEDS: OXcarbazepine 150 MG TAB PO SCH ×3 (08:26→21:44)
[2021-01-15] MEDS: ASPIRIN 81 MG PO SCH (08:26)
[2021-01-15] MEDS: PREGABALIN 75 MG CAP PO SCH ×3 (08:26→21:45)
[2021-01-15] MEDS: DONEPEZIL 10 MG TAB PO SCH (08:26)
[2021-01-15] MEDS: CYANOCOBALAMIN 500 MCG TAB PO SCH (08:26)
--- NOTE | 2021-01-15 13:29 | EEG ---
ELECTROENCEPHALOGRAM REPORT DATE OF SERVICE: 01/15/2021. PREAMBLE: This is an 80-year-old female with altered mental status. EEG FINDINGS: This is a 21-channel digital EEG recorded with video competent, utilizing 10/20 international system with referential and bipolar montages. Background consists of well-developed, poorly regulated, predominantly moderate amplitude of 4-6 hertz theta activity seen in bihemispheric region. Occasional periods of generalized suppression were also seen lasting for 1-2 seconds. Different stages of sleep were not seen. Background does not seem to be reactive to eye opening or closing. Photic driving response was not seen. Different stages of sleep were not seen. No focal or generalized epileptiform activity was seen. EKG channel showed arrhythmia. IMPRESSION: This is an abnormal EEG due to background slowing of moderate to severe degree. This is suggestive of generalized cerebral dysfunction as can be seen with toxic metabolic encephalopathy or due to diffuse structural brain abnormality. No epileptiform activity was seen. MMODL / IJN: [id number] /
[2021-01-15 13:58] LABS: Glucose,Whole Blood 133 mg/dL (75-99)
--- NOTE | 2021-01-15 14:11 | P.PN ---
Subjective Progress Note Date: 01/15/21 History of Presenting Illness: Patient is a very pleasant 80-year-old female with a past medical history of CAD status post CABG, pacemaker, hypertension, hyperlipidemia, atrial fibrillation on anticoagulation with Eliquis, chronic diastolic heart failure with preserved EF 50-55%, insulin dependent diabetes mellitus, Dementia, peripheral artery disease, and history of left BKA. Patient presented to the emergency department with a chief complaint of fall status post rolling out of bed and hitting her head on a blood thinner. Patient denied having a loss of consciousness. In the emergency department, patient underwent CT brain and cervical spine negative for acute intercranial process showing mild cerebral atrophy and cervical spondylitic changes with no fracture. X-ray of pelvis negative for acute abnormality showing no fractures. A chest x-ray revealing congestive heart failure with pleural effusions and cardiomegaly. Labs revealed lactic acidosis with a lactate of 2.2, elevated troponin 3.290, and an Acute kidney injury with BUN of 56, creatinine 1.19, and GFR of 43 with baseline creatinine being 0.6. Patient was started on heparin infusion and admitted under our services consultation to cardiology. Patient also reports she is following outpatient with Dr. Pleitez for continued wound care and management of delayed healing of surgical wound to right lower extremity. Patient's mentation decline throughout hospitalization upon first day of admission patient was able to state name, date of , place, and physician she sees on an outpatient basis...second day the patient was able to state her name and date of but was confused to place and situation, and the next morning patient confused with incomprehensible speech. CT head was completed and negative for acute intracranial process showing cerebral atrophy with chronic small vessel ischemia reported to be unchanged from previous CTs. Ammonia was initially elevated at 40 and patient received a dose of lactulose and is now back to normal at 16. ABG revealed slight compensated respiratory acidosis with pH of 7.31, pCO2 of 40, pO2 75, bicarb 21, and O2 sat of 94.1. Patient was on 2 L O2 via nasal cannula at that time with SPO2 of 90%, oxygen increased to 3L improving SpO2 to 95%. Neurology was also consulted. EEG was completed revealing abnormal findings reported of background slowing of moderate to severe degree suggestive of generalized cerebral dysfunction as can be seen with toxic metabolic encephalopathy or due to diffuse structural brain abnormality, no epileptiform activity was reported. Carotid Dopplers also completed revealing irregular atherosclerotic plaque bilaterally at the level of the carotid bifurcations suggestive of cardiac dysrhythmia recommending dedicated CT of the neck/carotid bifurcation. Patient's mentation remains unchanged at this time. We will continue close monitoring with neuro checks and continuous telemetry monitoring at this time. Appreciate further recommendations from cardiology and neurology. Physical exam: Patient seen at the bedside this morning. Mentation remains unchanged from yesterday. Pt yelling out, confused with incomprehensible speech. Vital signs unremarkable. SpO2 96% on 3 L. Patient has had 1410 mL of output over the past 24 hours. EEG was completed revealing abnormal findings reported of background slowing of moderate to severe degree suggestive of generalized cerebral dysfunction as can be seen with toxic metabolic encephalopathy or due to diffuse structural brain abnormality, no epileptiform activity was reported. Carotid Dopplers also completed revealing irregular atherosclerotic plaque bilaterally at the level of the carotid bifurcations suggestive of cardiac dysrhythmia recommending dedicated CT of the neck/carotid bifurcation. We will continue neuro checks every 4 hours along with continuous telemetry monitoring. Apprecia te further recommendations from cardiology and neurology. Vital signs reviewed and stable. General: Nontoxic, no distress and appears stated age very confused and yelling out, does not appear to be painful. Derm: Skin warm and dry, normal coloration for ethnicity. Head: Atraumatic, normocephalic and symmetric. Eyes: EOMs intact, no lid lag, and anicteric sclera Mouth: no lip lesions, mucus membranes dry Cardiovascular: Irregularly irregular rhythm with normal S1S2, no murmur, positive posterior tibial pulse to right lower extremity, and cap refill < 2 seconds. Lungs: Respirations even, regular, and unlabored on 4 L O2 via nasal cannula. Lungs diminished at bases otherwise no rhonchi, no rales, no crackles, no wheezing, and no accessory muscle usage. Abdominal: soft, nontender to palpation, no guarding, no appreciable organomegaly Ext: Left BKA. Right lower extremity dressing intact. Neuro: face symmetrical patient not following commands but does move all extremities dependently with no noted signs of weakness. Psych: Patient confused with incomprehensible speech, yelling out. Assessment and Plan of Care: NSTEMI Acute on chronic systolic and diastolic heart failure, systolic newly discovered Atrial flutter/fibrillation -EKG revealing atrial flutter with a controlled ventricular rate of 77 bpm Troponin elevated at 3.290, 2.910, 3.210 Echocardiogram revealing a mild to moderately impaired EF 40-45% with left ventricular wall showing hypokinetic motion, mild mitral and tricuspid regurgitation and mild pulmonary hypertension, previous echocardiogram completed 09/06/20 revealed a preserved EF between 50 and 55%. Telemetry monitoring Cardiology consulted, appreciate further recommendations. Continue aspirin and atorvastatin. Losartan held secondary to EDOUARD. Acute Metabolic encephalopathy, likely multifactorial due to cardiogenic etiology, metabolic acidosis with hypoxemia, acute kidney injury, and elevated ammonia levels. -Neuro checks every 4 hours -Neurology following, appreciate further recommendations -CT head was completed and negative for acute intracranial process showing cerebral atrophy with chronic small vessel ischemia reported to be unchanged from previous CTs. -EEG was completed revealing abnormal findings reported of background slowing of moderate to severe degree suggestive of generalized cerebral dysfunction as can be seen with toxic metabolic encephalopathy or due to diffuse structural brain abnormality, no epileptiform activity was reported. -Carotid Dopplers also completed revealing irregular atherosclerotic plaque bilaterally at the level of the carotid bifurcations suggestive of cardiac dysrhythmia recommending dedicated CT of the neck/carotid bifurcation. -Continue telemetry monitoring -Fall precautions Acute kidney injury Hold Nephrotoxic medications including furosemide, hydralazine, and losartan. Continue gentle hydration with IV fluids. Continue close monitoring with repeat a.m. labs. Right lower extremity wound Patient reports following outpatient with Dr. Pleitez for wound care and antibiotic therapy. Consult placed to Dr. Pleitez. Insulin-dependent diabetes mellitus Continue nightly Levemir and place patient on NovoLog sliding scale. Hypertension Monitor vital signs and Hold losartan secondary to EDOUARD, patient started on metoprolol 25 mg twice a day. Hyperlipidemia Continue atorvastatin 80 mg daily. Atrial fibrillation Hold Eliquis and continue heparin infusion pending further recommendations from cardiology. Anemia of chronic disease Hemoglobin stable 9.3, currently at baseline levels. We will continue to monitor with repeat a.m. labs. Chronic medical history includes: CAD status post CABG, status post pacemaker insertion, peripheral artery disease status post history of left BKA. Continue daily medication regimen. CODE STATUS: Full code DVT prophylaxis: heparin Discussed with: patient and RN and patient's daughter Anticipated discharge date: clinical course to determine. Anticipated discharge place: home A total of 45 minutes was spent on the care of this complex patient more than 50% of the time was spent in counseling and care coordination. Objective - Vital Signs Vital signs: Vital Signs Temp 98.0 F 01/15/21 04:00 Pulse 79 01/15/21 04:00 Resp 16 01/15/21 04:00 BP 105/57 01/15/21 04:00 Pulse Ox 97 01/15/21 04:00 Intake & Output 01/14/21 01/15/21 01/15/21 18:59 06:59 18:59 Output Total 900 510 Balance -900 -510 Weight 87 kg Output: Urine 900 510 Other: # Bowel Movements 1 - Labs CBC & Chem 7: 01/14/21 11:48 01/14/21 11:48 Labs: Abnormal Lab Results - Last 24 Hours (Table) 01/14/21 01/14/21 01/14/21 Range/Units 11:41 11:45 11:48 Hgb 9.3 L (11.4-16.0) gm/dL Hct 33.2 L (34.0-46.0) % MCV 75.8 L (80.0-100.0) fL MCH 21.2 L (25.0-35.0) pg MCHC 28.0 L (31.0-37.0) g/dL RDW 18.6 H (11.5-15.5) % Lymphocytes # (Manual) 0.98 L (1.0-4.8) k/uL Metamyelocytes # (Man) 0.15 H (0) k/uL Nucleated RBCs 2 H (0-0) /100 WBC ABG pH 7.31 L (7.35-7.45) ABG pO2 75 L (83-108) mmHg Carbon Dioxide (22-30) mmol/L BUN (7-17) mg/dL Creatinine (0.52-1.04) mg/dL Glucose (74-99) mg/dL POC Glucose (mg/dL) 141 H (75-99) mg/dL Calcium (8.4-10.2) mg/dL AST (14-36) U/L Alkaline Phosphatase (38-126) U/L Albumin (3.5-5.0) g/dL 01/14/21 01/14/21 01/14/21 Range/Units 11:48 16:40 20:01 Hgb (11.4-16.0) gm/dL Hct (34.0-46.0) % MCV (80.0-100.0) fL MCH (25.0-35.0) pg MCHC (31.0-37.0) g/dL RDW (11.5-15.5) % Lymphocytes # (Manual) (1.0-4.8) k/uL Metamyelocytes # (Man) (0) k/uL Nucleated RBCs (0-0) /100 WBC ABG pH (7.35-7.45) ABG pO2 (83-108) mmHg Carbon Dioxide 19 L (22-30) mmol/L BUN 61 H (7-17) mg/dL Creatinine 1.58 H (0.52-1.04) mg/dL Glucose 148 H (74-99) mg/dL POC Glucose (mg/dL) 136 H 130 H (75-99) mg/dL Calcium 8.3 L (8.4-10.2) mg/dL AST 49 H (14-36) U/L Alkaline Phosphatase 194 H (38-126) U/L Albumin 3.3 L (3.5-5.0) g/dL 01/15/21 Range/Units 06:11 Hgb (11.4-16.0) gm/dL Hct (34.0-46.0) % MCV (80.0-100.0) fL MCH (25.0-35.0) pg MCHC (31.0-37.0) g/dL RDW (11.5-15.5) % Lymphocytes # (Manual) (1.0-4.8) k/uL Metamyelocytes # (Man) (0) k/uL Nucleated RBCs (0-0) /100 WBC ABG pH (7.35-7.45) ABG pO2 (83-108) mmHg Carbon Dioxide (22-30) mmol/L BUN (7-17) mg/dL Creatinine (0.52-1.04) mg/dL Glucose (74-99) mg/dL POC Glucose (mg/dL) 168 H (75-99) mg/dL Calcium (8.4-10.2) mg/dL AST (14-36) U/L Alkaline Phosphatase (38-126) U/L Albumin (3.5-5.0) g/dL
[2021-01-15 16:44] LABS: Glucose,Whole Blood 161 mg/dL (75-99)
[2021-01-15] MEDS: MONTELUKAST 10 MG TAB PO SCH (20:09)
[2021-01-15] MEDS: APIXABAN 5 MG TAB PO SCH ×2 (20:09→21:44)
[2021-01-15] MEDS: INSULIN DETEMIR (LEVEMIR) 100 UNIT/ML SYR SQ SCH (20:09)
[2021-01-15 20:18] LABS: Glucose,Whole Blood 167 mg/dL (75-99)
--- NOTE | 2021-01-15 21:41 | PN ---
PROGRESS NOTE DATE OF SERVICE: 01/15/2021 REASON FOR FOLLOWUP: Right lower extremity wound and cellulitis. INTERVAL HISTORY: The patient is afebrile. The patient is slightly lethargic and pleasantly confused. Unable to provide any history. No vomiting, diarrhea or other changes reported. PHYSICAL EXAMINATION: Blood pressure 115/57 with a pulse of 66, temperature 98.2. She is 100% on 3 L nasal cannula. General description is an elderly female lying in bed in no distress. Respiratory system: Unlabored breathing, clear to auscultation anteriorly. Heart S1, S2. Regular rate and rhythm. Abdomen soft, no tenderness. Right leg is currently wrapped, no obvious drainage on the dressing. DIAGNOSTIC IMPRESSION AND PLAN: Patient with right lower extremity wound ( ) necrotic changes to the toes. No evidence of any cellulitis. Local wound care with dry Aquacel dressing. Keep the area off the pressure. Continue supportive care. MMODL / IJN: [id number] /
[2021-01-16 06:17] LABS: Glucose,Whole Blood 135 mg/dL (75-99)
[2021-01-16] MEDS: INSULIN ASPART (NovoLOG) 100 UNIT/ML VIAL SQ SCH ×4 (06:26→21:15)
[2021-01-16] MEDS: NALOXONE 0.4 MG/ML 1 ML VIAL IV PRN ×2 (08:03→08:12)
[2021-01-16 09:20] LABS: Anisocytosis Slight; HCT 34.4 % (34.0-46.0); HGB 9.5 gm/dL (11.4-16.0); Hypochromasia Marked; MCH 21.5 pg (25.0-35.0); MCHC 27.7 g/dL (31.0-37.0); MCV 77.6 fL (80.0-100.0); Mean Platelet Volume 8.6; Microcytosis Slight; Platelet Count 162 k/uL (150-450); Poikilocytosis Slight; RBC 4.43 m/uL (3.80-5.40); RDW 18.7 % (11.5-15.5); WBC 8.7 k/uL (3.8-10.6)
[2021-01-16 09:26] LABS: Calcium 8.7 mg/dL (8.4-10.2); Magnesium 2.4 mg/dL (1.6-2.3); Potassium 4.7 mmol/L (3.5-5.1)
[2021-01-16] MEDS: ASPIRIN 81 MG PO SCH (10:09)
[2021-01-16] MEDS: APIXABAN 5 MG TAB PO SCH (10:09)
[2021-01-16] MEDS: METOPROLOL TARTRATE 25 MG TAB PO SCH ×2 (10:09→21:15)
[2021-01-16] MEDS: CYANOCOBALAMIN 500 MCG TAB PO SCH (10:17)
[2021-01-16] MEDS: DONEPEZIL 10 MG TAB PO SCH (10:17)
[2021-01-16] MEDS: ATORVASTATIN 80 MG TAB PO SCH (10:17)
[2021-01-16] MEDS: MULTIVITAMINS, THERA 1 EACH TAB PO SCH (10:18)
[2021-01-16] MEDS: OXcarbazepine 150 MG TAB PO SCH ×2 (10:18→21:16)
[2021-01-16] MEDS: PREGABALIN 75 MG CAP PO SCH ×2 (10:18→21:15)
--- NOTE | 2021-01-16 10:33 | P.PN ---
Subjective Progress Note Date: 01/15/21 This is a Tele-neurology follow-up performed today on 01/15/2021. Patient continues to have garbled speech, lethargic, arouses when someone calls her name. Still confused. She pulling on the catheter. Objective - Vital Signs Vital signs: Vital Signs Temp 97.4 F L 01/15/21 08:00 Pulse 74 01/15/21 14:33 Resp 18 01/15/21 14:33 BP 107/63 01/15/21 08:00 Pulse Ox 93 L 01/15/21 08:00 Intake & Output 01/14/21 01/15/21 01/15/21 18:59 06:59 18:59 Output Total 900 510 200 Balance -900 -510 -200 Weight 87 kg Output: Urine 900 510 200 Other: # Bowel Movements 1 - Exam Patient continues to moan and groan. Continues to be encephalopathic. Patient is laying in the bed. Examination is essentially unchanged as compared to yesterday. Detailed testing deferred. - Labs CBC & Chem 7: 01/16/21 08:29 01/16/21 08:29 Labs: Abnormal Lab Results - Last 24 Hours (Table) 01/14/21 01/14/21 01/15/21 Range/Units 16:40 20:01 06:11 POC Glucose (mg/dL) 136 H 130 H 168 H (75-99) mg/dL 01/15/21 Range/Units 13:55 POC Glucose (mg/dL) 133 H (75-99) mg/dL Assessment and Plan Assessment: * 80-year-old female brought to the hospital status post fall off the bed. * Acute myocardial infarction. * Altered mental status, probable toxic metabolic encephalopathy. Causes are multifactorial as mentioned below * Anemia * Metabolic acidosis with hypoxemia * Moderate renal insufficiency, slightly worsening. * Elevated ammonia, minimally abnormal liver functions. * Atrial fibrillation * CHF with low ejection fraction 40-45%. * History of vascular dementia * Hypertension * Diabetes * PVD * CAD * History of left below knee amputation. Plan: * EEG was performed today. It is an abnormal EEG due to background slowing of moderate to severe degree. This is suggestive of generalized cerebral dysfunction as can be seen with toxic metabolic encephalopathy or due to diffuse structural brain abnormality. No epileptiform activity was seen. * Carotid Doppler revealed irregular atherosclerotic plaque bilaterally at the level of carotid bifurcation. Approximately 50-69% stenosis proximal left ICA. We will have vascular surgery evaluate patient. * 2-D echo 01/12/2021 showed normal left-ventricular size. Moderate concentric LVH. EF is between 40-45%. Midinferior, apical lateral, mid inferior lateral LV wall motion is hypokinetic. Left atrium is severely dilated. * CT head from yesterday 01/14/2021 showed no acute process. No CVA. * Patient is off heparin, not on any anticoagulation. I spoke to the nurse today and recommended her to speak to the primary physician or cardiology about resuming Eliquis. Patient was on Apixaban 5 mg bid prior to arrival. * Continue lactulose for elevated ammonia, which now has returned back to normal 16. * Your medical management.
[2021-01-16 11:57] LABS: Glucose,Whole Blood 147 mg/dL (75-99)
--- NOTE | 2021-01-16 13:45 | P.PN ---
Subjective Progress Note Date: 01/16/21 History of Presenting Illness: Patient is a very pleasant 80-year-old female with a past medical history of CAD status post CABG, pacemaker, hypertension, hyperlipidemia, atrial fibrillation on anticoagulation with Eliquis, chronic diastolic heart failure with preserved EF 50-55%, insulin dependent diabetes mellitus, Dementia, peripheral artery disease, and history of left BKA. Patient presented to the emergency department with a chief complaint of fall status post rolling out of bed and hitting her head on a blood thinner. Patient denied having a loss of consciousness. In the emergency department, patient underwent CT brain and cervical spine negative for acute intercranial process showing mild cerebral atrophy and cervical spondylitic changes with no fracture. X-ray of pelvis negative for acute abnormality showing no fractures. A chest x-ray revealing congestive heart failure with pleural effusions and cardiomegaly. Labs revealed lactic acidosis with a lactate of 2.2, elevated troponin 3.290, and an Acute kidney injury with BUN of 56, creatinine 1.19, and GFR of 43 with baseline creatinine being 0.6. Patient was started on heparin infusion and admitted under our services consultation to cardiology. Patient also reports she is following outpatient with Dr. Pleitez for continued wound care and management of delayed healing of surgical wound to right lower extremity. Patient's mentation decline throughout hospitalization upon first day of admission patient was able to state name, date of , place, and physician she sees on an outpatient basis...second day the patient was able to state her name and date of but was confused to place and situation, and the next morning patient confused with incomprehensible speech. CT head was completed and negative for acute intracranial process showing cerebral atrophy with chronic small vessel ischemia reported to be unchanged from previous CTs. Ammonia was initially elevated at 40 and patient received a dose of lactulose and is now back to normal at 16. ABG revealed slight compensated respiratory acidosis with pH of 7.31, pCO2 of 40, pO2 75, bicarb 21, and O2 sat of 94.1. Patient was on 2 L O2 via nasal cannula at that time with SPO2 of 90%, oxygen increased to 3L improving SpO2 to 95%. Neurology was also consulted. EEG was completed revealing abnormal findings reported of background slowing of moderate to severe degree suggestive of generalized cerebral dysfunction as can be seen with toxic metabolic encephalopathy or due to diffuse structural brain abnormality, no epileptiform activity was reported. Carotid Dopplers also completed revealing irregular atherosclerotic plaque bilaterally at the level of the carotid bifurcations suggestive of cardiac dysrhythmia recommending dedicated CT of the neck/carotid bifurcation. Patient's mentation remains unchanged at this time. We will continue close monitoring with neuro checks and continuous telemetry monitoring at this time. Appreciate further recommendations from cardiology and neurology. Physical exam: Patient seen at the bedside this morning. Patient reportedly received a dose of morphine overnight and this morning was noted to have respiratory depression with respiratory rate of 9 and slightly worsened mentation, patient given dose of Narcan 0.4 mg 2 and mentation immediately improving. Patient back to being alert to person, she however remains confused to time, place, and situation. She continues to have periods of incomprehensible speech, continues to move all 4 quadrants independently with no signs of weakness. Patient does not follow commands but does respond to painful stimuli. We will continue neuro checks every 4 hours along with continuous telemetry monitoring. Morning labs reviewed. CBC revealing normocytic normochromic anemia with hemoglobin 9.5, hematocrit 34.4, MCV 77.6, MCHC 21.5, MCHC 27.7, and RDW of 18.7. BMP revealing BUN 60, creatinine 1.57, and GFR of 31. Vital signs reviewed and stable. General: Nontoxic, no distress and appears stated age very confused and yelling out, does not appear to be painful. Derm: Skin warm and dry, normal coloration for ethnicity. Head: Atraumatic, normocephalic and symmetric. Eyes: EOMs intact, no lid lag, and anicteric sclera Mouth: no lip lesions, mucus membranes dry Cardiovascular: Irregularly irregular rhythm with normal S1S2, no murmur, positive posterior tibial pulse to right lower extremity, and cap refill < 2 seconds. Lungs: Respirations even, regular, and unlabored on 4 L O2 via nasal cannula. Lungs diminished at bases otherwise no rhonchi, no rales, no crackles, no wheezing, and no accessory muscle usage. Abdominal: soft, nontender to palpation, no guarding, no appreciable organomegaly Ext: Left BKA. Right lower extremity dressing intact. Neuro: face symmetrical patient not following commands but does move all extremities dependently with no noted signs of weakness. Psych: Patient confused with incomprehensible speech, yelling out. Assessment and Plan of Care: NSTEMI Acute on chronic systolic and diastolic heart failure, systolic newly discovered Atrial flutter/fibrillation -EKG revealing atrial flutter with a controlled ventricular rate of 77 bpm Troponin elevated at 3.290, 2.910, 3.210 Echocardiogram revealing a mild to moderately impaired EF 40-45% with left ventricular wall showing hypokinetic motion, mild mitral and tricuspid regurgitation and mild pulmonary hypertension, previous echocardiogram completed 09/06/20 revealed a preserved EF between 50 and 55%. Telemetry monitoring Cardiology consulted, appreciate further recommendations. Continue aspirin and atorvastatin. Losartan held secondary to EDOUARD. Eliquis was resumed Acute Metabolic encephalopathy, likely multifactorial due to cardiogenic etiology, metabolic acidosis with hypoxemia, acute kidney injury, and elevated ammonia levels. -Continue Neuro checks every 4 hours -Neurology following, appreciate further recommendations -CT head was completed and negative for acute intracranial process showing cerebral atrophy with chronic small vessel ischemia reported to be unchanged from previous CTs. -EEG was completed revealing abnormal findings reported of background slowing of moderate to severe degree suggestive of generalized cerebral dysfunction as can be seen with toxic metabolic encephalopathy or due to diffuse structural brain abnormality, no epileptiform activity was reported. -Carotid Dopplers also completed revealing irregular atherosclerotic plaque bilaterally at the level of the carotid bifurcations suggestive of cardiac dysrhythmia recommending dedicated CT of the neck/carotid bifurcation. -Continue telemetry monitoring -Fall precautions Acute kidney injury Hold Nephrotoxic medications including furosemide, hydralazine, and losartan. Continue gentle hydration with IV fluids. Continue close monitoring with repeat a.m. labs. Right lower extremity wound Patient reports following outpatient with Dr. Pleitez for wound care and antibiotic therapy. Consult placed to Dr. Pleitez. Insulin-dependent diabetes mellitus Continue nightly Levemir and place patient on NovoLog sliding scale. Hypertension Monitor vital signs and Hold losartan secondary to EDOUARD, patient started on metoprolol 25 mg twice a day. Hyperlipidemia Continue atorvastatin 80 mg daily. Atrial fibrillation Eliquis was resumed Anemia of chronic disease Hemoglobin stable 9.3, currently at baseline levels. We will continue to monitor with repeat a.m. labs. Chronic medical history includes: CAD status post CABG, status post pacemaker insertion, peripheral artery disease status post history of left BKA. Continue daily medication regimen. CODE STATUS: Full code DVT prophylaxis: Eliquis Discussed with: Patient and RN Anticipated discharge date: Clinical course to determine. Anticipated discharge place: Home A total of 45 minutes was spent on the care of this complex patient more than 50% of the time was spent in counseling and care coordination. Objective - Vital Signs Vital signs: Vital Signs Temp 98.0 F 01/16/21 12:00 Pulse 64 01/16/21 12:00 Resp 16 01/16/21 12:00 BP 104/59 01/16/21 12:00 Pulse Ox 96 01/16/21 12:00 Intake & Output 01/15/21 01/16/21 01/16/21 18:59 06:59 18:59 Intake Total 180 Output Total 350 400 200 Balance -170 -400 -200 Weight 85 kg Intake: Oral 180 Output: Urine 350 400 200 Other: # Bowel Movements 0 - Labs CBC & Chem 7: 01/16/21 08:29 01/16/21 08:29 Labs: Abnormal Lab Results - Last 24 Hours (Table) 01/15/21 01/15/21 01/15/21 Range/Units 13:55 16:42 19:39 Hgb (11.4-16.0) gm/dL MCV (80.0-100.0) fL MCH (25.0-35.0) pg MCHC (31.0-37.0) g/dL RDW (11.5-15.5) % BUN (7-17) mg/dL Creatinine (0.52-1.04) mg/dL Glucose (74-99) mg/dL POC Glucose (mg/dL) 133 H 161 H 167 H (75-99) mg/dL Magnesium (1.6-2.3) mg/dL 01/16/21 01/16/21 01/16/21 Range/Units 06:04 08:29 08:29 Hgb 9.5 L (11.4-16.0) gm/dL MCV 77.6 L (80.0-100.0) fL MCH 21.5 L (25.0-35.0) pg MCHC 27.7 L (31.0-37.0) g/dL RDW 18.7 H (11.5-15.5) % BUN 60 H (7-17) mg/dL Creatinine 1.57 H (0.52-1.04) mg/dL Glucose 137 H (74-99) mg/dL POC Glucose (mg/dL) 135 H (75-99) mg/dL Magnesium 2.4 H (1.6-2.3) mg/dL 01/16/21 Range/Units 11:54 Hgb (11.4-16.0) gm/dL MCV (80.0-100.0) fL MCH (25.0-35.0) pg MCHC (31.0-37.0) g/dL RDW (11.5-15.5) % BUN (7-17) mg/dL Creatinine (0.52-1.04) mg/dL Glucose (74-99) mg/dL POC Glucose (mg/dL) 147 H (75-99) mg/dL Magnesium (1.6-2.3) mg/dL
[2021-01-16 16:39] LABS: Glucose,Whole Blood 171 mg/dL (75-99)
--- NOTE | 2021-01-16 17:32 | PN ---
PROGRESS NOTE DATE OF SERVICE: 01/16/2021 REASON FOR FOLLOWUP: Right lower extremity wound. INTERVAL HISTORY: The patient is afebrile. The patient is still having mental status changes and confused. No agitation has been reported by nursing staff. No vomiting or diarrhea. The patient herself was not able to provide any history. PHYSICAL EXAMINATION: Blood pressure 101/55, pulse of 75, temperature of 98. She is 94% on 3 L nasal cannula. General description is an elderly female lying in bed in no distress. Respiratory system: Unlabored breathing, clear to auscultation anteriorly. Heart S1, S2. Regular rate and rhythm. Abdomen soft, no tenderness. LABS: Hemoglobin is 9.4, white count 8.7, BUN of 16, creatinine 1.57. DIAGNOSTIC IMPRESSION AND PLAN: Patient with right lower extremity wound, no evidence of any cellulitis. Local care with dry dressing Aquacel dressing, light Kerlix. No need for systemic antibiotic therapy. MMODL / IJN: [id number] /
[2021-01-16] MEDS: SODIUM CHLORIDE 0.9% 1,000 ML IV SCH (18:50)
[2021-01-16 20:28] LABS: Glucose,Whole Blood 166 mg/dL (75-99)
[2021-01-16] MEDS: MONTELUKAST 10 MG TAB PO SCH (21:15)
[2021-01-16] MEDS: INSULIN DETEMIR (LEVEMIR) 100 UNIT/ML SYR SQ SCH (21:15)
[2021-01-16] MEDS: APIXABAN 2.5 MG TABLET PO SCH (21:15)
[2021-01-17] MEDS: INSULIN ASPART (NovoLOG) 100 UNIT/ML VIAL SQ SCH ×4 (06:26→20:12)
[2021-01-17 06:35] LABS: Glucose,Whole Blood 149 mg/dL (75-99)
[2021-01-17] MEDS: ATORVASTATIN 80 MG TAB PO SCH (08:20)
[2021-01-17] MEDS: APIXABAN 2.5 MG TABLET PO SCH (08:20)
[2021-01-17] MEDS: DONEPEZIL 10 MG TAB PO SCH (08:20)
[2021-01-17] MEDS: METOPROLOL TARTRATE 25 MG TAB PO SCH ×2 (08:20→20:08)
[2021-01-17] MEDS: CYANOCOBALAMIN 500 MCG TAB PO SCH ×2 (08:21→09:00)
[2021-01-17] MEDS: ASPIRIN 81 MG PO SCH (08:21)
[2021-01-17] MEDS: PREGABALIN 75 MG CAP PO SCH (08:21)
[2021-01-17] MEDS: OXcarbazepine 150 MG TAB PO SCH ×2 (08:21→20:08)
[2021-01-17] MEDS: MULTIVITAMINS, THERA 1 EACH TAB PO SCH ×2 (08:23→09:00)
[2021-01-17] MEDS: SODIUM CHLORIDE 0.9% 1,000 ML IV SCH (08:26)
--- NOTE | 2021-01-17 08:27 | P.PN ---
Subjective Progress Note Date: 01/16/21 This is a Tele-neurology follow-up performed today on 01/16/2021. Patient continues to have garbled speech, lethargic, arouses when someone calls her name. Still confused. Patient's nurse reports that she is not taking every medication. She was able to give her the aspirin, metoprolol and Eliquis, but not other medications. Per nurse report, she did work up a little bit more yesterday but today is back. Patient declines anything hurting although she moans. Objective - Vital Signs Vital signs: Vital Signs Temp 98.3 F 01/17/21 03:40 Pulse 67 01/17/21 03:40 Resp 17 01/17/21 03:40 BP 106/74 01/17/21 03:40 Pulse Ox 99 01/17/21 03:40 Intake & Output 01/16/21 01/17/21 01/17/21 18:59 06:59 18:59 Intake Total 830 Output Total 500 480 Balance 330 -480 Weight 86.5 kg Intake: IV 650 Sodium Chloride 0.9% 1, 650 000 ml @ 75 mls/hr IV . [id number] [facility] Rx#:[id number] Oral 180 Output: Urine 500 480 Other: Voiding Method Indwelling Catheter - Exam Patient continues to moan and groan. Continues to be encephalopathic, although slightly better than yesterday. Patient is laying in the bed. Examination is essentially unchanged as compared to yesterday. Detailed testing deferred. Her face is symmetric and moves arms and legs equally. - Labs CBC & Chem 7: 01/16/21 08:29 01/16/21 08:29 Labs: Abnormal Lab Results - Last 24 Hours (Table) 01/16/21 01/16/21 01/16/21 Range/Units 08:29 08:29 11:54 Hgb 9.5 L (11.4-16.0) gm/dL MCV 77.6 L (80.0-100.0) fL MCH 21.5 L (25.0-35.0) pg MCHC 27.7 L (31.0-37.0) g/dL RDW 18.7 H (11.5-15.5) % BUN 60 H (7-17) mg/dL Creatinine 1.57 H (0.52-1.04) mg/dL Glucose 137 H (74-99) mg/dL POC Glucose (mg/dL) 147 H (75-99) mg/dL Magnesium 2.4 H (1.6-2.3) mg/dL 01/16/21 01/16/21 01/17/21 Range/Units 16:37 20:27 06:21 Hgb (11.4-16.0) gm/dL MCV (80.0-100.0) fL MCH (25.0-35.0) pg MCHC (31.0-37.0) g/dL RDW (11.5-15.5) % BUN (7-17) mg/dL Creatinine (0.52-1.04) mg/dL Glucose (74-99) mg/dL POC Glucose (mg/dL) 171 H 166 H 149 H (75-99) mg/dL Magnesium (1.6-2.3) mg/dL Assessment and Plan Assessment: * 80-year-old female brought to the hospital status post fall off the bed. * Acute myocardial infarction. * Altered mental status, probable toxic metabolic encephalopathy. Causes are multifactorial as mentioned below * Anemia * Metabolic acidosis with hypoxemia * Moderate renal insufficiency, slightly worsening. * Elevated ammonia, minimally abnormal liver functions. * Atrial fibrillation * Pacemaker placement * CHF with low ejection fraction 40-45%. * History of vascular dementia * Hypertension * Diabetes * PVD * CAD * History of left below knee amputation. Plan: * EEG from 01/15/2021 was an abnormal EEG due to background slowing of moderate to severe degree. This is suggestive of generalized cerebral dysfunction as can be seen with toxic metabolic encephalopathy or due to diffuse structural brain abnormality. No epileptiform activity was seen. * Carotid Doppler revealed irregular atherosclerotic plaque bilaterally at the level of carotid bifurcation. Approximately 50-69% stenosis proximal left ICA. We will have vascular surgery evaluate patient. * 2-D echo 01/12/2021 showed normal left-ventricular size. Moderate concentric LVH. EF is between 40-45%. Midinferior, apical lateral, mid inferior lateral LV wall motion is hypokinetic. Left atrium is severely dilated. * CT head from yesterday 01/14/2021 showed no acute process. No CVA. Patient cannot have MRI because of presence of pacemaker. * Patient has been resumed on Eliquis 5 mg bid. * Continue lactulose for elevated ammonia, which now has returned back to normal 16. * Your medical management. * Dr. Klever Cordero Will resume neurology service from the morning.
--- NOTE | 2021-01-17 09:05 | P.PN ---
Subjective Progress Note Date: 01/17/21 History of Presenting Illness: Patient is a very pleasant 80-year-old female with a past medical history of CAD status post CABG, pacemaker, hypertension, hyperlipidemia, atrial fibrillation on anticoagulation with Eliquis, chronic diastolic heart failure with preserved EF 50-55%, insulin dependent diabetes mellitus, Dementia, peripheral artery disease, and history of left BKA. Patient presented to the emergency department with a chief complaint of fall status post rolling out of bed and hitting her head on a blood thinner. Patient denied having a loss of consciousness. In the emergency department, patient underwent CT brain and cervical spine negative for acute intercranial process showing mild cerebral atrophy and cervical spondylitic changes with no fracture. X-ray of pelvis negative for acute abnormality showing no fractures. A chest x-ray revealing congestive heart failure with pleural effusions and cardiomegaly. Labs revealed lactic acidosis with a lactate of 2.2, elevated troponin 3.290, and an Acute kidney injury with BUN of 56, creatinine 1.19, and GFR of 43 with baseline creatinine being 0.6. Patient was started on heparin infusion and admitted under our services consultation to cardiology. Patient also reports she is following outpatient with Dr. Pleitez for continued wound care and management of delayed healing of surgical wound to right lower extremity. Patient's mentation decline throughout hospitalization upon first day of admission patient was able to state name, date of , place, and physician she sees on an outpatient basis...second day the patient was able to state her name and date of but was confused to place and situation, and the next morning patient confused with incomprehensible speech. CT head was completed and negative for acute intracranial process showing cerebral atrophy with chronic small vessel ischemia reported to be unchanged from previous CTs. Ammonia was initially elevated at 40 and patient received a dose of lactulose and is now back to normal at 16. ABG revealed slight compensated respiratory acidosis with pH of 7.31, pCO2 of 40, pO2 75, bicarb 21, and O2 sat of 94.1. Patient was on 2 L O2 via nasal cannula at that time with SPO2 of 90%, oxygen increased to 3L improving SpO2 to 95%. Neurology was also consulted. EEG was completed revealing abnormal findings reported of background slowing of moderate to severe degree suggestive of generalized cerebral dysfunction as can be seen with toxic metabolic encephalopathy or due to diffuse structural brain abnormality, no epileptiform activity was reported. Carotid Dopplers also completed revealing irregular atherosclerotic plaque bilaterally at the level of the carotid bifurcations suggestive of cardiac dysrhythmia recommending dedicated CT of the neck/carotid bifurcation. Patient's mentation remains unchanged at this time. We will continue close monitoring with neuro checks and continuous telemetry monitoring at this time. Appreciate further recommendations from cardiology and neurology. Physical exam: Patient seen at the bedside this morning and family contacted for meeting regarding patient's worsening mentation and their current expectations/goals of care. Patient only moaning and yelling out at this time. Acute metabolic encephalopathy likely multifactorial due to NSTEMI with findings of newly diagnosed systolic heart failure, EDOUARD, and worsening PAD no longer able to palpate pulse in RLE. Cardiology following recommending no interventions at this time due to patient's deteriorating mentation. Dr. Aguilera also consulted secondary to loss of palpable pulse in RLE, also stating no surgical recommendations at this time based on the declining mentation of patient. Family previously contacted about significant decline in mentation on Sunday and have not been up to visit or further discuss as they stated they would, this morning family was contacted again and their presence was requested at bedside. Morning labs reviewed, showing no significant changes or abnormalities. She continues with non-anion gap metabolic acidosis with CO2 of 19 and chloride of 110. Renal function slightly improving BUN 51, creatinine 1.13, and GFR 46. Hemoglobin 9.4. Vital signs reviewed and stable. General: Nontoxic, no distress and appears stated age very confused and yelling out, does not appear to be painful. Derm: Skin warm and dry, normal coloration for ethnicity. Head: Atraumatic, normocephalic and symmetric. Eyes: EOMs intact, no lid lag, and anicteric sclera Mouth: no lip lesions, mucus membranes dry Cardiovascular: Irregularly irregular rhythm with normal S1S2, no murmur, positive posterior tibial pulse to right lower extremity, and cap refill < 2 seconds. Lungs: Respirations even, regular, and unlabored on 3 L O2 via nasal cannula. Lungs diminished at bases otherwise no rhonchi, no rales, no crackles, no wheezing, and no accessory muscle usage. Abdominal: soft, nontender to palpation, no guarding, no appreciable organom egaly Ext: Left BKA. Right lower extremity dressing intact. Neuro: face symmetrical patient not following commands but does move all extremities dependently with no noted signs of weakness. Psych: Patient confused with incomprehensible speech, yelling out. Assessment and Plan of Care: NSTEMI Acute on chronic systolic and diastolic heart failure, systolic newly discovered Atrial flutter/fibrillation -EKG revealing atrial flutter with a controlled ventricular rate of 77 bpm Troponin elevated at 3.290, 2.910, 3.210 Echocardiogram revealing a mild to moderately impaired EF 40-45% with left ventricular wall showing hypokinetic motion, mild mitral and tricuspid regurgitation and mild pulmonary hypertension, previous echocardiogram completed 09/06/20 revealed a preserved EF between 50 and 55%. Telemetry monitoring Cardiology consulted, appreciate further recommendations. Continue aspirin and atorvastatin. Losartan held secondary to EDOUARD. Eliquis was resumed Acute Metabolic encephalopathy, likely multifactorial due to cardiogenic etiology, metabolic acidosis with hypoxemia, acute kidney injury, and elevated ammonia levels -Continue Neuro checks every 4 hours -Neurology following, appreciate further recommendations -CT head was completed and negative for acute intracranial process showing cerebral atrophy with chronic small vessel ischemia reported to be unchanged from previous CTs. -EEG was completed revealing abnormal findings reported of background slowing of moderate to severe degree suggestive of generalized cerebral dysfunction as can be seen with toxic metabolic encephalopathy or due to diffuse structural brain abnormality, no epileptiform activity was reported. -Carotid Dopplers also completed revealing irregular atherosclerotic plaque bilaterally at the level of the carotid bifurcations suggestive of cardiac dysrhythmia recommending dedicated CT of the neck/carotid bifurcation. -Continue telemetry monitoring -Fall precautions Occlusive peripheral vascular disease No longer able to palpate right lower extremity pulses, Dr. Aguilera was consulted and not recommending surgical intervention at this time due to patient's declining mentation. Acute kidney injury Hold Nephrotoxic medications including furosemide, hydralazine, and losartan. Continue gentle hydration with IV fluids. Continue close monitoring with repeat a.m. labs. Right lower extremity wound Patient reports following outpatient with Dr. Pleitez for wound care and antibiotic therapy. Consult placed to Dr. Pleitez. Insulin-dependent diabetes mellitus Continue nightly Levemir and place patient on NovoLog sliding scale. Hypertension Monitor vital signs and Hold losartan secondary to EDOUARD, patient started on metoprolol 25 mg twice a day. Hyperlipidemia Continue atorvastatin 80 mg daily. Atrial fibrillation Eliquis was resumed Anemia of chronic disease Hemoglobin stable 9.3, currently at baseline levels. We will continue to monitor with repeat a.m. labs. Chronic medical history includes: CAD status post CABG, status post pacemaker insertion, peripheral artery disease status post history of left BKA. Continue daily medication regimen. CODE STATUS: Full code DVT prophylaxis: Yakov Discussed with: Patient and RN Anticipated discharge date: Clinical course to determine. Anticipated discharge place: Home A total of 45 minutes was spent on the care of this complex patient more than 50% of the time was spent in counseling and care coordination. Objective - Vital Signs Vital signs: Vital Signs Temp 98.3 F 01/17/21 03:40 Pulse 67 01/17/21 03:40 Resp 17 01/17/21 03:40 BP 106/74 01/17/21 03:40 Pulse Ox 99 01/17/21 03:40 Intake & Output 01/16/21 01/17/21 01/17/21 18:59 06:59 18:59 Intake Total 830 Output Total 500 480 Balance 330 -480 Weight 86.5 kg Intake: IV 650 Sodium Chloride 0.9% 1, 650 000 ml @ 75 mls/hr IV . [id number] PENDING SALE TO [facility] Rx#:[id number] Oral 180 Output: Urine 500 480 Other: Voiding Method Indwelling Catheter - Labs CBC & Chem 7: 01/17/21 10:20 01/17/21 10:20 Labs: Abnormal Lab Results - Last 24 Hours (Table) 01/16/21 01/16/21 01/16/21 Range/Units 08:29 08:29 11:54 Hgb 9.5 L (11.4-16.0) gm/dL MCV 77.6 L (80.0-100.0) fL MCH 21.5 L (25.0-35.0) pg MCHC 27.7 L (31.0-37.0) g/dL RDW 18.7 H (11.5-15.5) % BUN 60 H (7-17) mg/dL Creatinine 1.57 H (0.52-1.04) mg/dL Glucose 137 H (74-99) mg/dL POC Glucose (mg/dL) 147 H (75-99) mg/dL Magnesium 2.4 H (1.6-2.3) mg/dL 01/16/21 01/16/21 01/17/21 Range/Units 16:37 20:27 06:21 Hgb (11.4-16.0) gm/dL MCV (80.0-100.0) fL MCH (25.0-35.0) pg MCHC (31.0-37.0) g/dL RDW (11.5-15.5) % BUN (7-17) mg/dL Creatinine (0.52-1.04) mg/dL Glucose (74-99) mg/dL POC Glucose (mg/dL) 171 H 166 H 149 H (75-99) mg/dL Magnesium (1.6-2.3) mg/dL
[2021-01-17 10:58] LABS: Anisocytosis Slight; HCT 35.8 % (34.0-46.0); HGB 9.4 gm/dL (11.4-16.0); Hypochromasia Marked; MCH 21.1 pg (25.0-35.0); MCHC 26.2 g/dL (31.0-37.0); MCV 80.6 fL (80.0-100.0); Mean Platelet Volume 9.8; Microcytosis Slight; Platelet Count 203 k/uL (150-450); Poikilocytosis Slight; RBC 4.44 m/uL (3.80-5.40); RDW 18.9 % (11.5-15.5); WBC 10.1 k/uL (3.8-10.6)
[2021-01-17 11:12] LABS: Albumin 3.3 g/dL (3.5-5.0); Calcium 8.5 mg/dL (8.4-10.2); Magnesium 2.3 mg/dL (1.6-2.3); Potassium 4.7 mmol/L (3.5-5.1); Total Protein 6.6 g/dL (6.3-8.2)
--- NOTE | 2021-01-17 11:36 | P.GSCN ---
History of Present Illness Consult date: 01/17/21 Reason for Consult: Left ICA stenosis Requesting physician: Britni Yung History of present illness: This is an 80 year old white female who was in by EMS for evaluation after sustaining a fall after rolling out of bed and hitting her head and altered mental status changes on 01/12/2021. Of most of the HPI will be obtained by nursing and chart as patient continues with altered mental status. Patient was an STEMI with elevated troponins, cardiology initially had seen patient and started patient on a heparin drip. As part of her workup in the emergency department she underwent a CT of the head and cervical spine which showed no acute findings. She has a past medical history significant for peripheral arterial disease status post right lower extremity bypass and left [id number] amputation, coronary artery disease, atrial fibrillation, congestive heart failure, hypertension, COPD, and diabetes mellitus. She underwent fem-tib bypass of the right lower extremity with Dr. Aguilera in the beginning of the summer at [facility]. Patient also has been following in the wound care clinic for infected right lower extremity status post debridement in September with evidence of good healing. During this hospitalization neurology was consulted for altered mental status changes. Carotid ultrasound was obtained that showed irregular arthrosclerotic plaque bilaterally at the level of the carotid bifurcation. Findings suggest cardiac dysrhythmia. Recommend dedicated CT neck carotid bifurcation. Approximately 50-69% stenosis proximal left ICA. Neurology asked vascular surgery to evaluate patient for left ICA stenosis. However per neurology notes, I do not believe his altered mental status is related to CVA. Patient did undergo an EEG that showed abnormal EEG due to background slowing of moderate to severe degree. This is suggestive of generalized cerebral dysfunction as can be seen with toxic metabolic encephalopathy or due to diffuse structural brain abnormality. No elliptical form activity was seen. Patient is confused this morning. She will answer look at you when you state her name however she is unable to follow anything other than very simple commands. She is alert and oriented to her first name, she is unable to state her last name. There is no reported extrem ity weakness. She is having some difficulty with swallowing, speech therapy has been consulted. Review of Systems ROS unobtainable: due to mental status Past Medical History Past Medical History: Heart Failure, COPD, Diabetes Mellitus, Diabetes Mellitus, Myocardial Infarction (NH), Myocardial Infarction (NH), Osteoarthritis (OA), Respiratory Disorder, Skin Disorder, Vascular Disorder Additional Past Medical History / Comment(s): Trigeminal Neuralgia, Diabetic Neuropathy, NH 1994, rosacea, Hypoxic Respiratory Failure; Raynauds; PVD; Anemia, left BKA done in 2019 Last Myocardial Infarction Date:: 1994 History of Any Multi-Drug Resistant Organisms: None Reported Past Surgical History: Appendectomy, Cholecystectomy, Heart Catheterization With Stent, Hysterectomy, Orthopedic Surgery, Pacemaker Additional Past Surgical History / Comment(s): Arthrectomy rt leg, Angioplasty, Pacemaker August 2016, left below the knee amputation, one heart stent Past Anesthesia/Blood Transfusion Reactions: No Reported Reaction Date of Last Stent Placement:: 1994 Type of Cardiac Device: Permanent Pacemaker Device Placement Date:: August 2016 Past Psychological History: No Psychological Hx Reported Smoking Status: Former smoker Past Alcohol Use History: None Reported Past Drug Use History: None Reported - Past Family History Father Family Medical History: Myocardial Infarction (NH) Mother Family Medical History: Congestive Heart Failure (CHF), CVA/TIA, Diabetes Mellitus Medications and Allergies Home Medications Medication Instructions Recorded Confirmed Type Montelukast [Singulair] 10 mg PO HS #30 tab 09/20/16 01/12/21 Rx Cyanocobalamin (Vitamin B-12) 1,000 mcg PO DAILY 07/18/17 01/12/21 History [Vitamin B-12] Losartan [Cozaar] 50 mg PO DAILY 07/18/17 01/12/21 History Rosuvastatin [Crestor] 20 mg PO DAILY 01/10/19 01/12/21 History metFORMIN HCL [Glucophage XR] 750 mg PO BID 02/15/19 01/12/21 History Apixaban [Eliquis] 5 mg PO BID 06/13/19 01/12/21 History Albuterol Inhaler [Ventolin Hfa 2 puff INHALATION RT-QID PRN 11/19/19 01/12/21 History Inhaler] Donepezil HCl [Aricept] 10 mg PO DAILY 09/06/20 01/12/21 History Fluticasone/Salmeterol [Advair Hfa 1 puff INHALATION RT-BID PRN 09/06/20 01/12/21 History 45-21 Mcg Inhaler] Insulin Glargine,Hum.rec.anlog 2 unit SQ HS 09/06/20 01/12/21 History [Lantus Solostar Pen] Liraglutide [Victoza 3-Orlin] 1.8 mg SQ DAILY 09/06/20 01/12/21 History Multivitamins, Thera [Multivitamin 1 tab PO DAILY 09/06/20 01/12/21 History (formulary)] Lignum-3 Fatty Acids/Fish Oil [Fish 1 cap PO DAILY 09/06/20 01/12/21 History Oil 1,000 mg Softgel] Pregabalin [Lyrica] 225 mg PO BID 09/06/20 01/12/21 History Furosemide [Lasix] 40 mg PO DAILY 30 Days #30 tab 09/09/20 01/12/21 Rx OXcarbazepine [Trileptal] 300 mg PO BID 12/09/20 01/12/21 History hydrALAZINE HCL [Apresoline] 50 mg PO TID 12/09/20 01/12/21 History HYDROcodone/APAP 5-325MG [Aurora 1 tab PO Q6HR PRN 3 Days #12 tab 12/26/20 01/12/21 Rx 5-325] Simethicone [Gas-X] 125 mg PO TID PRN 01/12/21 01/12/21 History Allergies Allergy/AdvReac Type Severity Reaction Status Date / Time codeine AdvReac Nausea & Verified 01/12/21 03:37 Vomiting sitagliptin [From t] AdvReac frequent Verified 01/12/21 03:37 UTI Surgical - Exam Vital Signs Temp Pulse Resp BP Pulse Ox 98.1 F 66 20 121/68 97 01/12/21 03:30 01/12/21 03:30 01/12/21 03:30 01/12/21 03:30 01/12/21 03:30 General appearance: The patient is alert, oriented, appears in no acute distress. HET: Head is normocephalic and atraumatic. Pupils are equal and reactive. Neck: Supple without lymphadenopathy. Trachea midline. Heart: S1 S2. Regularly irregular. Lungs: No crackles or wheezes are heard. Abdomen: Soft, nontender, nondistended. Extremities: Palpable bilateral radial pulses. Left BKA stump. Right lower extremity with dressing clean dry and intact, good capillary refill. Wound to the medial aspect of left lower extremity without any redness or drainage. Nonpalpable popliteal, posterior tibialis or dorsalis pedis pulse on the right lower extremity. No Doppler signal right lower extremity. Neurological: Alert and oriented to self only. Patient able to follow simple commands. Results - Labs 01/17/21 10:20 01/16/21 08:29 Abnormal Lab Results - Last 24 Hours (Table) 01/16/21 01/16/21 01/16/21 Range/Units 08:29 08:29 11:54 Hgb 9.5 L (11.4-16.0) gm/dL MCV 77.6 L (80.0-100.0) fL MCH 21.5 L (25.0-35.0) pg MCHC 27.7 L (31.0-37.0) g/dL RDW 18.7 H (11.5-15.5) % BUN 60 H (7-17) mg/dL Creatinine 1.57 H (0.52-1.04) mg/dL Glucose 137 H (74-99) mg/dL POC Glucose (mg/dL) 147 H (75-99) mg/dL Magnesium 2.4 H (1.6-2.3) mg/dL 01/16/21 01/16/21 01/17/21 Range/Units 16:37 20:27 06:21 Hgb (11.4-16.0) gm/dL MCV (80.0-100.0) fL MCH (25.0-35.0) pg MCHC (31.0-37.0) g/dL RDW (11.5-15.5) % BUN (7-17) mg/dL Creatinine (0.52-1.04) mg/dL Glucose (74-99) mg/dL POC Glucose (mg/dL) 171 H 166 H 149 H (75-99) mg/dL Magnesium (1.6-2.3) mg/dL Diabetes panel 01/16/21 Range/Units 08:29 Sodium 138 (137-145) mmol/L Potassium 4.7 (3.5-5.1) mmol/L Chloride 105 (98-107) mmol/L Carbon Dioxide 23 (22-30) mmol/L BUN 60 H (7-17) mg/dL Creatinine 1.57 H (0.52-1.04) mg/dL Glucose 137 H (74-99) mg/dL Calcium 8.7 (8.4-10.2) mg/dL Calcium panel 01/16/21 Range/Units 08:29 Calcium 8.7 (8.4-10.2) mg/dL Pituitary panel 01/16/21 Range/Units 08:29 Sodium 138 (137-145) mmol/L Potassium 4.7 (3.5-5.1) mmol/L Chloride 105 (98-107) mmol/L Carbon Dioxide 23 (22-30) mmol/L BUN 60 H (7-17) mg/dL Creatinine 1.57 H (0.52-1.04) mg/dL Glucose 137 H (74-99) mg/dL Calcium 8.7 (8.4-10.2) mg/dL Adrenal panel 01/16/21 Range/Units 08:29 Sodium 138 (137-145) mmol/L Potassium 4.7 (3.5-5.1) mmol/L Chloride 105 (98-107) mmol/L Carbon Dioxide 23 (22-30) mmol/L BUN 60 H (7-17) mg/dL Creatinine 1.57 H (0.52-1.04) mg/dL Glucose 137 H (74-99) mg/dL Calcium 8.7 (8.4-10.2) mg/dL - Imaging Comments: Carotid duplex: Irregular arthrosclerotic plaque bilaterally at the levels carotid bifurcation. Findings suggest cardiac dysrhythmia. Recommend dedicated CT of head and neck. Approximately 50-69% stenosis proximal left ICA. Brain CT: Cerebral atrophy. Chronic small vessel ischemia. No acute intracranial abnormality. No change. Head and cervical spine CT: Mild cerebral atrophy. No acute intracranial abnormality. No change. Mild cervical spondylotic changes. No fracture Assessment and Plan Assessment: 1. Altered mental status changes likely related to metabolic encephalopathy, multifactorial 2. Left ICA stenosis 50-69% per carotid duplex 3. Metabolic acidosis with hypoxemia 4. NSTEMI 5. History of peripheral arterial disease status post left BKA and right bypass Plan: 1. Continue medical management 2. Continue dressing changes as recommended by wound care clinic 3. No plans on any vascular surgical intervention at this time. Patient will need continued surveillance of carotid arteries outpatient. Thank you for this consultation, we will continue to follow. The impression and plan of care has been dictated as directed. Dr.Cuppari I performed a history and examination of this patient, discussed the same with the dictator. I agree with the dictator's note ,documented as a scribe. Any additional findings or plans will be noted.
[2021-01-17 11:51] LABS: Glucose,Whole Blood 177 mg/dL (75-99)
--- NOTE | 2021-01-17 12:55 | P.PN ---
Subjective Progress Note Date: 01/17/21 I am seeing the patient for the first time for neurological management. Please refer to Dr. Yung's note for further details. The family is at bedside and she is accompanied with her daughter and 2 sons and they stated that just about 2 minutes ago she called the other names appropriately. Per her children who are bedside they stated that the patient does this all the time which is in the hospital off being altered but once she is told that that she's about to be discharged she'll perk up and the she'll respond appropriately. The family feels the patient is over exaggerating. Upon seeing the patient she had periods of morning and the not responding to me. Objective - Vital Signs Vital signs: Vital Signs Temp 98.2 F 01/17/21 08:00 Pulse 69 01/17/21 08:00 Resp 18 01/17/21 08:00 BP 126/60 01/17/21 08:00 Pulse Ox 94 L 01/17/21 08:00 Intake & Output 01/16/21 01/17/21 01/17/21 18:59 06:59 18:59 Intake Total 830 20 Output Total 500 480 300 Balance 330 -480 -280 Weight 86.5 kg Intake: IV 650 20 Invasive Line 2 10 Invasive Line 3 10 Sodium Chloride 0.9% 1, 650 000 ml @ 75 mls/hr IV . [id number] [facility] Rx#:[id number] Oral 180 Output: Urine 500 480 300 Uretheral (Mathews) 300 Other: Voiding Method Indwelling Catheter - Exam GENERAL: The patient is lying in bed and and seems somewhat in distress. HENT: Neck is supple and no nuchal rigidity. CHEST: Seems decreased pulses over the right. NEUROLOGICAL: Limited because of her condition. Higher mental function: The patient is very drowsy and was moaning. She is not verbalizing or following commands. Cranial nerves: I had to manually open her eyes. The primary gaze is midline. The pupils are round, equal and reactive to light. No facial weakness. Otherwise could not asses rest of exam. Motor: Gait is deferred because of her condition. The strength is hard to assess but briefly lifted bilateral uppers extremities above gravity. While lower no movement noted. She has amputation below the left knee. Normal tone and bulk. Cerebellum: Could not assess. Sensation: Could not assess light touch. Reflexes (right/left): 2+ throughout uppers while lowers seems 0-1 over bilateral patellar while right ankle is 0-1. Has below left knee amputation. Plantars is mute over the right. WORK-UP: * Ammonia level on 01/14/2021 is 40 and the repeat his 16. * Calcium is 8.7 and the magnesium is 2.4. * Urine drug screen is nondetected and the serum alcohol was less than 10 * Rivera virus PCR is nondetected * EEG from 01/15/2021 was reported as an abnormal EEG due to background slowing of moderate to severe degree. This is suggestive of generalized cerebral dysfunction as can be seen with toxic metabolic encephalopathy or due to diffuse structural brain abnormality. No epileptiform activity was seen. * Carotid Doppler revealed irregular atherosclerotic plaque bilaterally at the level of carotid bifurcation. Approximately 50-69% stenosis proximal left ICA. * 2-D echo 01/12/2021 showed normal left-ventricular size. Moderate concentric LVH. EF is between 40-45%. Midinferior, apical lateral, mid inferior lateral LV wall motion is hypokinetic. Left atrium is severely dilated. * Repeat CT head 01/14/2021 showed no acute process. No CVA. - Labs CBC & Chem 7: 01/17/21 10:20 01/17/21 10:20 Labs: Abnormal Lab Results - Last 24 Hours (Table) 01/16/21 01/16/21 01/17/21 Range/Units 16:37 20:27 06:21 Hgb (11.4-16.0) gm/dL MCH (25.0-35.0) pg MCHC (31.0-37.0) g/dL RDW (11.5-15.5) % Chloride (98-107) mmol/L Carbon Dioxide (22-30) mmol/L BUN (7-17) mg/dL Creatinine (0.52-1.04) mg/dL Glucose (74-99) mg/dL POC Glucose (mg/dL) 171 H 166 H 149 H (75-99) mg/dL AST (14-36) U/L Alkaline Phosphatase (38-126) U/L Albumin (3.5-5.0) g/dL 01/17/21 01/17/21 01/17/21 Range/Units 10:20 10:20 11:50 Hgb 9.4 L (11.4-16.0) gm/dL MCH 21.1 L (25.0-35.0) pg MCHC 26.2 L (31.0-37.0) g/dL RDW 18.9 H (11.5-15.5) % Chloride 110 H (98-107) mmol/L Carbon Dioxide 19 L (22-30) mmol/L BUN 51 H (7-17) mg/dL Creatinine 1.13 H (0.52-1.04) mg/dL Glucose 207 H (74-99) mg/dL POC Glucose (mg/dL) 177 H (75-99) mg/dL AST 42 H (14-36) U/L Alkaline Phosphatase 208 H (38-126) U/L Albumin 3.3 L (3.5-5.0) g/dL Assessment and Plan Assessment: This is a 80-year-old female brought to the hospital status post fall off the bed. * Altered mental status, probable toxic metabolic encephalopathy (per family mem bers they feel she is exacerbating her symptoms and was communicating with her children, naming her kids names appropriately just 2 minutes prior my arrival and then upon seeing her she was moaning and non-responsive or following commands). * NSTEMI. * Left ICA stenosis between 50-69% stenosis per carotid duplex * Anemia * Metabolic acidosis with hypoxemia * Moderate renal insufficiency. * Elevated ammonia, minimally abnormal liver functions.--elevated ammonia resolved * Atrial fibrillation * Pacemaker placement * CHF with low ejection fraction 40-45%. * History of vascular dementia * Hypertension * Diabetes * History of PVD * CAD * History of left below knee amputation. Plan: * I ordered repeat CT head urgently. * Ordered vitamin B12 and folate level. * Carotid Doppler revealed irregular atherosclerotic plaque bilaterally at the level of carotid bifurcation. Approximately 50-69% stenosis proximal left ICA. V[facility] surgery team at [facility] patient and they felt was medical management and no need for surgical intervention at. * Patient cannot have MRI because of presence of pacemaker. * Patient has been resumed on Eliquis 5 mg bid cardiology has added aspirin 81 mg daily. If the patient has further episode of falls from a neurology perspective avoid anticoagulation to avoid bleed but will defer that final decision to the cardiology team. * Patient is on Lipitor 80 mg daily at bedtime was started by the cardiology team. * She had a recent TSH in September 2020 and was normal. Therefore she does not need to repeat the TSH level. * Cardiology team is on board. * We'll defer the rest of the medical management to the primary team. The plan is discussed with the patient's family members (daughter and two sons at at bedside). Klever Cordero M.D. Neuro-hospitalist Time with Patient: Less than 30
--- NOTE | 2021-01-17 14:57 | CT ---
EXAMINATION TYPE: CT brain wo con DATE OF EXAM: 01/17/2021 COMPARISON: 01/14/2021 INDICATION: altered mental status DLP: 1041.4 mGycm, Automated exposure control for dose reduction was used. CONTRAST: None CT of the brain is performed utilizing 3 mm thick sections through the posterior fossa and 3 mm thick sections through the remaining calvarium. Study is performed within 24 hours of arrival to the hosp ital. No abnormal hyperdensity is present to suggest an acute intracranial hemorrhage. No mass lesion is evident. No acute infarcts are evident. There is mild periventricular white matter hypodensity, likely on the basis of chronic white matter ischemic changes. Ventricles and sulci are prominent for the patient age. Paranasal sinuses and mastoid air cells within the [id number] are clear. IMPRESSIONS: 1. Atrophy with chronic appearing periventricular white matter ischemic changes.
[2021-01-17 16:15] LABS: Glucose,Whole Blood 162 mg/dL (75-99)
--- NOTE | 2021-01-17 17:26 | P.PN ---
Progress Note - Text Progress Note Date: 01/17/21 Advanced Care Planning: Diagnoses: Acute metabolic encephalopathy with continued worsening mentation NSTEMI Discussion: Family contacted for meeting regarding patient's worsening mentation and their current expectations/goals of care. Pt's daughter and two son's to bedside. Summary: Discussed patient's multiple comorbidities and current medical conditions including current medical management of myocardial infarction as no further interventions were recommended by cardiology at this time due to patient's declining mentation, occlusive peripheral vascularity disease and no longer able to palpate right pedal or posterior tibial pulse and vascular surgery stating no recommendations for surgical intervention secondary to patient's current mentation. We discussed poor prognosis and the recommendations of palliative and hospice care. Spent 29 minutes at bedside with family (from 11:21 a.m. until 11:50 a.m.) and then allowed family some time to further discuss amongst themselves. Returned to room when RN reported family had came to a decision. Family unanimously agreeing that patient will be made a no code at this time, we will continue with conservative medical treatment and are agreeable to further discuss palliative and hospice care but would not like to initiate comfort cares at this time. Hospice consult placed. A total of 29 minutes of face to face time was spent discussing advanced care planning.
[2021-01-17 19:56] LABS: Glucose,Whole Blood 155 mg/dL (75-99)
[2021-01-17] MEDS: MONTELUKAST 10 MG TAB PO SCH (20:08)
[2021-01-17] MEDS: INSULIN DETEMIR (LEVEMIR) 100 UNIT/ML SYR SQ SCH (20:08)
[2021-01-17] MEDS: APIXABAN 5 MG TAB PO SCH (20:08)
[2021-01-17] MEDS: PREGABALIN 50 MG CAP PO SCH (20:09)
[2021-01-17 21:49] LABS: Vitamin B12 >2000.0 pg/mL (200.0-944.0)
--- NOTE | 2021-01-18 00:46 | PN ---
PROGRESS NOTE DATE OF SERVICE: 01/17/2021 REASON FOR FOLLOWUP: Right lower extremity wound and a question of cellulitis. INTERVAL HISTORY: The patient is afebrile. The patient seems to have problems with mentation . Unable to provide any history. No vomiting, diarrhea or any other changes reported by the nursing staff. Patient herself unable to provide any history. PHYSICAL EXAMINATION: Blood pressure 127/67, pulse of 72, temperature 98. She is 93% on 3 L nasal cannula. General description is an elderly female lying in bed in no distress. RESPIRATORY SYSTEM: Unlabored breathing. Clear to auscultation anteriorly. HEART: S1, S2. Regular rate and rhythm. ABDOMEN: Soft. No tenderness. Right leg wound has significantly decreased in size with no redness, no drainage. Toes with some necrotic changes but no drainage. LABS: Hemoglobin is 9.4, white count 10.1, creatinine 1.13. DIAGNOSTIC IMPRESSION AND PLAN: Patient with a right lower extremity wound, postsurgical, and that wound has significantly decreased in size, mostly with no evidence of cellulitis. The right toe did have some black discoloration, but no active cellulitis. No need for systemic antibiotic therapy. Local care to continue with Aquacel Silver dressing. This was discussed with the patient's daughter and the family. All questions and concerns were answered. NASL / IJN: [id number] /
[2021-01-18] MEDS: SODIUM CHLORIDE 0.9% 1,000 ML IV SCH ×2 (03:13→08:50)
[2021-01-18 06:20] LABS: Glucose,Whole Blood 174 mg/dL (75-99)
[2021-01-18] MEDS: INSULIN ASPART (NovoLOG) 100 UNIT/ML VIAL SQ SCH ×4 (06:21→22:36)
--- NOTE | 2021-01-18 08:23 | CDI ---
Documentation Clarification Form Date: 01/18/2021 07:55:00 AM From: Chantell Eller RN CCDS Admit Date: 01/12/2021 05:11:00 AM Patient Name: Ariadne Ortiz Visit Number: [id number] Discharge Date: ATTENTION: The Clinical Documentation Specialists (CDI) and [facility] Coding Staff appreciate your assistance in clarifying documentation. Please respond to the clarification below the line at the bottom and electronically sign. The CDI & [facility] Coding staff will review the response and follow-up if needed. Please note: Queries are made part of the Legal Health Record. If you have any questions, please contact the author of this message via ITS. Dr. Charu Lin MD Pneumonia is documented Cardiology consult, 01/12 and Cardiology progress note 01/13 but is not noted in subsequent documentation. Clarification is requested. History/Risk Factors: 80-year-old female presents to the ED after having a fall rolling out of bed hitting her head. The patient is on blood thinners. Medical History: Heart failure, COPD, DM and [place]. Clinical Indicators: 01/12 VSS B/P 121/68, HR 66, Temp 98.1 F, RR 60, SpO2 97% 4L nc. 01/12 Labs: Wbc 8.5 01/12 Cardiology Consult Chest xray congestive heart failure with pleural effusions. Right lower lobe pneumonia. Treatment: 01/12 Ceftriaxone sodium 2gm IVPB x 1. Please clarify if the Pneumonia is: [ ] Pneumonia confirmed, remains under treatment [ ] Pneumonia confirmed, resolved [ ] Pneumonia ruled out [ ] Other condition, please specify [ ] Unable to determine (Template Last Revised: May 2020) MTDD
[2021-01-18] MEDS: APIXABAN 5 MG TAB PO SCH ×2 (08:41→22:36)
[2021-01-18] MEDS: METOPROLOL TARTRATE 25 MG TAB PO SCH ×2 (08:41→22:37)
[2021-01-18] MEDS: ASPIRIN 81 MG PO SCH (08:41)
[2021-01-18] MEDS: ATORVASTATIN 80 MG TAB PO SCH (08:41)
[2021-01-18] MEDS: CYANOCOBALAMIN 500 MCG TAB PO SCH (08:41)
[2021-01-18] MEDS: DONEPEZIL 10 MG TAB PO SCH (08:41)
[2021-01-18] MEDS: OXcarbazepine 150 MG TAB PO SCH ×2 (08:42→22:37)
[2021-01-18] MEDS: PREGABALIN 50 MG CAP PO SCH ×2 (08:42→22:37)
[2021-01-18] MEDS: MULTIVITAMINS, THERA 1 EACH TAB PO SCH (08:42)
--- NOTE | 2021-01-18 10:40 | P.PN ---
Subjective Progress Note Date: 01/18/21 The patient is seen at bedside and per the patient nurse she is about the same. Objective - Vital Signs Vital signs: Vital Signs Temp 97.4 F L 01/18/21 07:24 Pulse 91 01/18/21 07:24 Resp 18 01/18/21 07:24 BP 130/85 01/18/21 07:24 Pulse Ox 96 01/18/21 07:24 Intake & Output 01/17/21 01/18/21 01/18/21 18:59 06:59 18:59 Intake Total 20 40 10 Output Total 600 450 Balance -580 -410 10 Weight 85 kg 87 kg Intake: IV 20 40 10 Invasive Line 2 10 20 10 Invasive Line 3 10 20 Oral 0 Output: Urine 600 450 Uretheral (Mathews) 300 Other: Voiding Method Indwelling Catheter Indwelling Catheter Indwelling Catheter # Bowel Movements 0 - Exam GENERAL: The patient is lying in bed and and seems somewhat in distress. HENT: Neck is supple and no nuchal rigidity. CHEST: Seems decreased pulses over the right. NEUROLOGICAL: Limited because of her condition. Higher mental function: The patient is very drowsy. She is not verbalizing or following commands. Cranial nerves: She would open her eyes with verbal stimuli. The primary gaze is midline. The pupils are round, equal and reactive to light. No facial w eakness. Otherwise could not asses rest of exam. Motor: Gait is deferred because of her condition. The strength is hard to assess but briefly lifted bilateral uppers extremities above gravity. While lower no movement noted. She has amputation below the left knee. Normal tone and bulk. Cerebellum: Could not assess. Sensation: Could not assess light touch. Reflexes (right/left): 2+ throughout uppers while lowers seems 0-1 over bilateral patellar while right ankle is 0-1. Has below left knee amputation. Plantars is mute over the right. WORK-UP: * Ammonia level on 01/14/2021 is 40 and the repeat his 16. * Calcium is 8.7 and the magnesium is 2.4. * Vitamin B12 was more than 2000. * Serum folate is 14.8 * Urine drug screen is nondetected and the serum alcohol was less than 10 * Rivera virus PCR is nondetected * EEG from 01/15/2021 was reported as an abnormal EEG due to background slowing of moderate to severe degree. This is suggestive of generalized cerebral dysfunction as can be seen with toxic metabolic encephalopathy or due to diffuse structural brain abnormality. No epileptiform activity was seen. * Carotid Doppler revealed irregular atherosclerotic plaque bilaterally at the level of carotid bifurcation. Approximately 50-69% stenosis proximal left ICA. * 2-D echo 01/12/2021 showed normal left-ventricular size. Moderate concentric LVH. EF is between 40-45%. Midinferior, apical lateral, mid inferior lateral LV wall motion is hypokinetic. Left atrium is severely dilated. * Repeat CT head 01/14/2021 showed no acute process. No CVA. * Repeat CT head on 01/17/2021 is reported as atrophy with chronic appearing periventricular white matter ischemic change. I personally reviewed the CT of the head and I do not see any acute ischemia or subacute ischemia. There is no bleed and the CT. - Labs CBC & Chem 7: 01/17/21 10:20 01/17/21 10:20 Labs: Abnormal Lab Results - Last 24 Hours (Table) 01/17/21 01/17/21 01/17/21 Range/Units 10:20 10:20 10:20 Hgb 9.4 L (11.4-16.0) gm/dL MCH 21.1 L (25.0-35.0) pg MCHC 26.2 L (31.0-37.0) g/dL RDW 18.9 H (11.5-15.5) % Chloride 110 H (98-107) mmol/L Carbon Dioxide 19 L (22-30) mmol/L BUN 51 H (7-17) mg/dL Creatinine 1.13 H (0.52-1.04) mg/dL Glucose 207 H (74-99) mg/dL POC Glucose (mg/dL) (75-99) mg/dL AST 42 H (14-36) U/L Alkaline Phosphatase 208 H (38-126) U/L Albumin 3.3 L (3.5-5.0) g/dL Vitamin B12 >2000.0 H (200.0-944.0) pg/mL 01/17/21 01/17/21 01/17/21 Range/Units 11:50 16:14 19:55 Hgb (11.4-16.0) gm/dL MCH (25.0-35.0) pg MCHC (31.0-37.0) g/dL RDW (11.5-15.5) % Chloride (98-107) mmol/L Carbon Dioxide (22-30) mmol/L BUN (7-17) mg/dL Creatinine (0.52-1.04) mg/dL Glucose (74-99) mg/dL POC Glucose (mg/dL) 177 H 162 H 155 H (75-99) mg/dL AST (14-36) U/L Alkaline Phosphatase (38-126) U/L Albumin (3.5-5.0) g/dL Vitamin B12 (200.0-944.0) pg/mL 01/18/21 Range/Units 06:18 Hgb (11.4-16.0) gm/dL MCH (25.0-35.0) pg MCHC (31.0-37.0) g/dL RDW (11.5-15.5) % Chloride (98-107) mmol/L Carbon Dioxide (22-30) mmol/L BUN (7-17) mg/dL Creatinine (0.52-1.04) mg/dL Glucose (74-99) mg/dL POC Glucose (mg/dL) 174 H (75-99) mg/dL AST (14-36) U/L Alkaline Phosphatase (38-126) U/L Albumin (3.5-5.0) g/dL Vitamin B12 (200.0-944.0) pg/mL Assessment and Plan Assessment: This is a 80-year-old female brought to the hospital status post fall off the bed. * Altered mental status, probable toxic metabolic encephalopathy (per family members they feel she is exacerbating her symptoms and is responsive and communicating with them). * NSTEMI. * Left ICA stenosis between 50-69% stenosis per carotid duplex * Anemia * Metabolic acidosis with hypoxemia * Moderate renal insufficiency. * Elevated ammonia, minimally abnormal liver functions.--elevated ammonia resolved * Atrial fibrillation * Pacemaker placement * CHF with low ejection fraction 40-45%. * History of vascular dementia * Hypertension * Diabetes * History of PVD * CAD * History of left below knee amputation. Plan: * Carotid Doppler revealed irregular atherosclerotic plaque bilaterally at the level of carotid bifurcation. Approximately 50-69% stenosis proximal left ICA. Vascular surgery team, felt medical management and no need for surgical intervention. * Patient cannot have MRI because of presence of pacemaker. Patient had total of 3 CT heads and no evidence of stroke. She had a routine EEG on 01/15/2021 and negative for seizure. and the background was reported as moderate to severe degree. * I will attempt to get repeat EEG because of her continued confusion. * Patient has been resumed on Eliquis 5 mg bid cardiology has added aspirin 81 mg daily. If the patient has further episode of falls from a neurology perspective avoid anticoagulation to avoid bleed but will defer that final decision to the cardiology team. * Patient is on Lipitor 80 mg daily at bedtime was started by the cardiology team. * She had a recent TSH in September 2020 and was normal. Therefore she does not need to repeat the TSH level. * Cardiology team is on board. * We'll defer the rest of the medical management to the primary team. The plan is discussed with the patient's family members. Klever Cordero M.D. Neuro-hospitalist Time with Patient: Less than 30
--- NOTE | 2021-01-18 12:39 | P.PN ---
Subjective Progress Note Date: 01/18/21 Patient is seen and examined lying in bed. No acute changes through the night. Apparently the family came in yesterday and made the patient a DO NOT RESUSCITATE and received information on hospice. Apparently the patient's family wants to take her home. She is to undergo another swallow evaluation tod ramon. Patient remains with altered mental status. Objective - Vital Signs Vital signs: Vital Signs Temp 97.4 F L 01/18/21 07:24 Pulse 91 01/18/21 07:24 Resp 18 01/18/21 07:24 BP 130/85 01/18/21 07:24 Pulse Ox 96 01/18/21 07:24 Intake & Output 01/17/21 01/18/21 01/18/21 18:59 06:59 18:59 Intake Total 20 40 10 Output Total 600 450 Balance -580 -410 10 Weight 85 kg 87 kg Intake: IV 20 40 10 Invasive Line 2 10 20 10 Invasive Line 3 10 20 Oral 0 Output: Urine 600 450 Uretheral (Mathews) 300 Other: Voiding Method Indwelling Catheter Indwelling Catheter Indwelling Catheter # Bowel Movements 0 - Exam General appearance: The patient is alert, disoriented, appears in no acute distress. HET: Head is normocephalic and atraumatic. Neck: Supple without lymphadenopathy. Trachea midline. Heart: S1 S2. Regularly irregular Lungs: Clear to auscultation. Extremities: Left BKA stump. Right lower extremity with dressing clean dry and intact, good capillary refill. Wound medial aspect of left lower extremity without any redness or drainage. Nonpalpable popliteal, PT or DP pulse on right lower extremity. Neurological: Alert, oriented to self only. Unable to follow commands or answer questions. - Labs CBC & Chem 7: 01/17/21 10:20 01/17/21 10:20 Labs: Abnormal Lab Results - Last 24 Hours (Table) 01/17/21 01/17/21 01/17/21 Range/Units 10:20 10:20 10:20 Hgb 9.4 L (11.4-16.0) gm/dL MCH 21.1 L (25.0-35.0) pg MCHC 26.2 L (31.0-37.0) g/dL RDW 18.9 H (11.5-15.5) % Chloride 110 H (98-107) mmol/L Carbon Dioxide 19 L (22-30) mmol/L BUN 51 H (7-17) mg/dL Creatinine 1.13 H (0.52-1.04) mg/dL Glucose 207 H (74-99) mg/dL POC Glucose (mg/dL) (75-99) mg/dL AST 42 H (14-36) U/L Alkaline Phosphatase 208 H (38-126) U/L Albumin 3.3 L (3.5-5.0) g/dL Vitamin B12 >2000.0 H (200.0-944.0) pg/mL 01/17/21 01/17/21 01/17/21 Range/Units 11:50 16:14 19:55 Hgb (11.4-16.0) gm/dL MCH (25.0-35.0) pg MCHC (31.0-37.0) g/dL RDW (11.5-15.5) % Chloride (98-107) mmol/L Carbon Dioxide (22-30) mmol/L BUN (7-17) mg/dL Creatinine (0.52-1.04) mg/dL Glucose (74-99) mg/dL POC Glucose (mg/dL) 177 H 162 H 155 H (75-99) mg/dL AST (14-36) U/L Alkaline Phosphatase (38-126) U/L Albumin (3.5-5.0) g/dL Vitamin B12 (200.0-944.0) pg/mL 01/18/21 Range/Units 06:18 Hgb (11.4-16.0) gm/dL MCH (25.0-35.0) pg MCHC (31.0-37.0) g/dL RDW (11.5-15.5) % Chloride (98-107) mmol/L Carbon Dioxide (22-30) mmol/L BUN (7-17) mg/dL Creatinine (0.52-1.04) mg/dL Glucose (74-99) mg/dL POC Glucose (mg/dL) 174 H (75-99) mg/dL AST (14-36) U/L Alkaline Phosphatase (38-126) U/L Albumin (3.5-5.0) g/dL Vitamin B12 (200.0-944.0) pg/mL Assessment and Plan Assessment: 1. Altered mental status changes likely related to metabolic encephalopathy, multifactorial 2. Left ICA stenosis 50-69% per carotid duplex 3. Metabolic acidosis with hypoxemia 4. NSTEMI 5. History of peripheral arterial disease status post left BKA and right bypass Plan: 1. Continue medical management 2. Continue dressing changes as recommended by wound care clinic 3. No plans on any vascular surgical intervention at this time. Patient will need continued surveillance of carotid arteries outpatient if patient and family desire. Thank you for this consultation, we will continue to follow. The impression and plan of care has been dictated as directed. I performed a history and examination of this patient, discussed the same with the dictator. I agree with the dictator's note ,documented as a scribe. Any additional findings or plans will be noted.
--- NOTE | 2021-01-18 13:25 | EEG ---
ELECTROENCEPHALOGRAM REPORT DATE OF SERVICE: 01/18/2021 CLINICAL HISTORY: This is an 80-year-old woman who continues to have altered mental status. The video EEG is obtained to evaluate for seizure and epileptiform activity. RELEVANT MEDICATION: The patient is on Trileptal 300 mg one tablet b.i.d. EEG TYPE: A routine 21-channel EEG is performed with video using the 10/20 electrode placement system. DESCRIPTION: Wakefulness is obtained. During awake state, the background consists of low to moderate voltage that is nonrhythmic of 5-6 hertz theta activity. On occasions, the background consist of nonrhythmic delta activity. There is no physiological sleep architecture seen. There is no focal slowing seen. Interictal and ictal is none. ACTIVATION PROCEDURE: Photic stimulation and hyperventilation are not performed. CLINICAL INTERPRETATION: The background slowing is suggestive of moderate to severe encephalopathy. There are no epileptiform discharges or seizure on the EEG. Clinical correlation is recommended. GURINDER / LACHO: [id number] / MTDD
[2021-01-18 14:24] LABS: Glucose,Whole Blood 167 mg/dL (75-99)
[2021-01-18] MEDS ORDERED: FUROSEMIDE 10 MG/ML 10 ML VIAL IV STA (16:15)
[2021-01-18] MEDS ORDERED: FUROSEMIDE 10 MG/ML 4 ML VIAL ONE (16:17)
[2021-01-18 16:21] LABS: Glucose,Whole Blood 208 mg/dL (75-99)
[2021-01-18] MEDS ORDERED: SCOPOLAMINE 1.5MG/72HR PATCH TRANSDERM STA (16:36)
--- NOTE | 2021-01-18 16:49 | XR ---
EXAMINATION TYPE: XR chest 1V portable DATE OF EXAM: 01/18/2021 COMPARISON: 01/12/2021 HISTORY: Short of breath TECHNIQUE: FINDINGS: Heart is enlarged. There is pulmonary vascular congestion. There is blunting of the costoph renic angles on the right side more than the left. There is left axillary pacemaker. There are chest leads. IMPRESSION: Congestive heart failure with pleural effusions. No significant change compared to recent exam.
--- NOTE | 2021-01-18 18:49 | P.PN ---
Subjective Progress Note Date: 01/18/21 Patient was seen and examined at the bedside. She was oriented only to self and not answering questions appropriately. The patient was noted to have flash pulmonary edema earlier today at around 4 PM requiring IV Lasix with a chest x- ray ordered showing congestive heart failure. IV fluids were discontinued. Objective - Vital Signs Vital signs: Vital Signs Temp 97.6 F 01/18/21 14:00 Pulse 100 01/18/21 16:29 Resp 18 01/18/21 14:00 BP 126/67 01/18/21 14:00 Pulse Ox 95 01/18/21 14:00 Intake & Output 01/17/21 01/18/21 01/18/21 18:59 06:59 18:59 Intake Total 20 40 20 Output Total 600 450 600 Balance -580 -410 -580 Weight 85 kg 87 kg Intake: IV 20 40 20 Invasive Line 2 10 20 20 Invasive Line 3 10 20 Oral 0 0 Output: Urine 600 450 600 Uretheral (Mathews) 300 600 Other: Voiding Method Indwelling Catheter Indwelling Catheter Indwelling Catheter # Bowel Movements 0 1 - Exam General: Non-toxic, in no acute distress, appears stated age, obese HEENT: NC/AT, anicteric sclerae, moist conjunctiva, no lid-lag, PERRLA Cardiovascular: S1/S2 wnl, no murmurs, rubs, or gallops Lungs: Bibasilar rales, normal respiratory effort, no accessory muscle use Abdominal: Soft, non-tender, non-distended, no guarding, rebound, or rigidity Skin: Warm, dry Extremities: No edema or contractures Psychiatric: Awake, yelling out inclusively, oriented only to self and somewhat directable Neuro: Moving all extremities, unable to fully assess - Labs CBC & Chem 7: 01/17/21 10:20 01/17/21 10:20 Labs: Abnormal Lab Results - Last 24 Hours (Table) 01/17/21 01/17/21 01/18/21 Range/Units 10:20 19:55 06:18 POC Glucose (mg/dL) 155 H 174 H (75-99) mg/dL Vitamin B12 >2000.0 H (200.0-944.0) pg/mL 01/18/21 01/18/21 Range/Units 14:18 16:11 POC Glucose (mg/dL) 167 H 208 H (75-99) mg/dL Vitamin B12 (200.0-944.0) pg/mL Assessment and Plan Plan: Acute on chronic diastolic and systolic CHF exacerbation -Lasix by mouth for now -Cardiac monitoring -Cardiology following A. fib/flutter -Continue with Eliquis Altered mental status, suspected acute metabolic encephalopathy multifactorial -Neuro checks -Fall precautions -Cardiac monitoring -EEG and CT head reviewed Acute kidney injury, improved -Monitor for now DVT prophylaxis -Eliquis
[2021-01-18 20:15] LABS: Glucose,Whole Blood 163 mg/dL (75-99)
[2021-01-18] MEDS: MONTELUKAST 10 MG TAB PO SCH (22:37)
[2021-01-18] MEDS: INSULIN DETEMIR (LEVEMIR) 100 UNIT/ML SYR SQ SCH (22:37)
[2021-01-19 01:46] VITALS: RESP 16
--- NOTE | 2021-01-19 04:34 | P.PN ---
Progress Note - Text Progress Note Date: 01/18/21 met with family for about 60 minutes, evaluated patient , went over blood work results, and imaging tests. went over neuro workup. answered their questions. family to meet with day time provider to go over plan and goal of therapy
[2021-01-19 06:12] LABS: Glucose,Whole Blood 204 mg/dL (75-99)
[2021-01-19] MEDS: INSULIN ASPART (NovoLOG) 100 UNIT/ML VIAL SQ SCH ×2 (06:21→13:11)
[2021-01-19] MEDS: ATORVASTATIN 80 MG TAB PO SCH (07:52)
[2021-01-19] MEDS: OXcarbazepine 150 MG TAB PO SCH (07:52)
[2021-01-19] MEDS: PREGABALIN 50 MG CAP PO SCH (07:52)
[2021-01-19] MEDS: METOPROLOL TARTRATE 25 MG TAB PO SCH (07:52)
[2021-01-19] MEDS: DONEPEZIL 10 MG TAB PO SCH (07:52)
[2021-01-19] MEDS: APIXABAN 5 MG TAB PO SCH (07:52)
[2021-01-19] MEDS: ASPIRIN 81 MG PO SCH (07:52)
[2021-01-19] MEDS: MULTIVITAMINS, THERA 1 EACH TAB PO SCH (07:52)
[2021-01-19] MEDS ORDERED: FUROSEMIDE 40 MG TAB PO SCH (09:00)
--- NOTE | 2021-01-19 09:12 | CDI ---
Documentation Clarification Form Date: 01/19/2021 08:04:02 AM From: Chantell Eller RN CCDS Admit Date: 01/12/2021 05:11:00 AM Patient Name: Ariadne Ortiz Visit Number: [id number] Discharge Date: ATTENTION: The Clinical Documentation Specialists (CDI) and [facility] Coding Staff appreciate your assistance in clarifying documentation. Please respond to the clarification below the line at the bottom and electronically sign. The CDI & [facility] Coding staff will review the response and follow-up if needed. Please note: Queries are made part of the Legal Health Record. If you have any questions, please contact the author of this message via ITS. Dr. Charu Lin Your patient is receiving the followin/20 -01/19 Oxygen via nasal cannula. Please clarify what condition/diagnosis is being treated. History/Risk Factors: 80-year-old female presents to the ED after having a fall rolling out of bed hitting her head. The patient is on blood thinners. Medical History: Heart failure, COPD, DM and GA. Clinical indicators: 01/12 CXR: Congestive heart failure with pleural effusions. 01/18 CXR: Congestive heart failure with pleural effusions. 01/14 Medicine progress note Patient was on 2L O2 via nasal cannula at that time with SPO2 of 90%, oxygen increased to 3L improving SpO2 to 95% 01/13 Arterial blood gas: PH 7.34, Pco2 43, PO2 59, HCO3 23, CO2 25, ABG O2 Saturation 88.7, ABG base excess -2.4 SpO2 01/12 97% 4L nasal cannula SpO2 01/13 98% 4L nasal cannula SpO2 01/14 91% 2L nasal cannula SpO2 01/14 95% 3L nasal cannula SpO2 01/15 93% 3L nasal cannula SpO2 01/16 94% 3L nasal cannula SpO2 01/17 93% 3L nasal cannula SpO2 01/18 96% 5L nasal cannula SpO2 01/19 96% 3L nasal cannula Treatment: Oxygen via nasal cannula 3-5L. 01/12 to current Albuterol Sulfate 2.5mg Inhalation QID BID PRN, 01/12 Symbicort 80-4.5 mcg Inhaler BID PRN, 01/12 CURRENT Singulair 10mg PO HS . What diagnosis are you treating with oxygen? [ ] Acute Respiratory Failure [ ] Acute Respiratory Insufficiency [ ] No additional diagnosis [ ] Other, please specify [ ] Unable to determine (Template Last Reviewed: April 2020) FALLOND
[2021-01-19 11:48] LABS: Glucose,Whole Blood 196 mg/dL (75-99)
[2021-01-19 12:23] VITALS: BMI 35.6
--- NOTE | 2021-01-19 13:22 | P.PN ---
Subjective Progress Note Date: 01/19/21 Patient is seen and examined lying in bed. No acute changes through the night. Patient remains with altered mental status. Apparently the family came in yesterday and made the patient a DO NOT RESUSCITATE and received information on hospice. Objective - Vital Signs Vital signs: Vital Signs Temp 98.2 F 01/19/21 07:45 Pulse 83 01/19/21 07:45 Resp 16 01/19/21 07:45 BP 115/70 01/19/21 07:45 Pulse Ox 96 01/19/21 07:45 Intake & Output 01/18/21 01/19/21 01/19/21 18:59 06:59 18:59 Intake Total 20 0 Output Total 600 25 Balance -580 -25 0 Weight 85.5 kg 85.5 kg Intake: IV 20 Invasive Line 2 20 Oral 0 0 Output: Urine 600 Uretheral (Mathews) 600 Emesis 25 Other: Voiding Method Indwelling Catheter # Bowel Movements 1 1 - Exam General appearance: The patient is alert, disoriented, appears in no acute distress. HET: Head is normocephalic and atraumatic. Neck: Supple without lymphadenopathy. Trachea midline. Heart: S1 S2. Regularly irregular Lungs: Clear to auscultation. Extremities: Left BKA stump. Right lower extremity with dressing clean dry and intact, good capillary refill. Wound medial aspect of left lower extremity without any redness or drainage. Nonpalpable popliteal, PT or DP pulse on right lower extremity. Neurological: Alert, oriented to self only. Unable to follow commands or answer questions. - Labs CBC & Chem 7: 01/17/21 10:20 01/17/21 10:20 Labs: Abnormal Lab Results - Last 24 Hours (Table) 01/18/21 01/18/21 01/18/21 Range/Units 14:18 16:11 20:14 POC Glucose (mg/dL) 167 H 208 H 163 H (75-99) mg/dL 01/19/21 01/19/21 Range/Units 06:11 11:47 POC Glucose (mg/dL) 204 H 196 H (75-99) mg/dL Assessment and Plan Assessment: 1. Altered mental status changes likely related to metabolic encephalopathy, multifactorial 2. Left ICA stenosis 50-69% per carotid duplex 3. Metabolic acidosis with hypoxemia 4. NSTEMI 5. History of peripheral arterial disease status post left BKA and right bypass Plan: 1. Continue medical management 2. Continue dressing changes as recommended by wound care clinic 3. No plans on any vascular surgical intervention at this time. Patient will need continued surveillance of carotid arteries outpatient if patient and family desire. Agree patient a good candidate for hospice, and she has poor prognosis with multiple comorbidities. Thank you for this consultation, we will sign off at this time. The impression and plan of care has been dictated as directed. Dr. Mathews I performed a history and examination of this patient, discussed the same with the dictator. I agree with the dictator's note ,documented as a scribe. Any additional findings or plans will be noted.
--- NOTE | 2021-01-19 14:32 | P.DS ---
Providers Date of admission: 01/12/21 05:11 Expected date of discharge: 01/19/21 Attending physician: Venkat Quinn MD Consults: 01/12/21 05:11 Consult Physician Urgent Consulting Provider: Roger Griffith Consult Reason/Comments: nstemi Do you want consulting provider notified?: Yes 01/12/21 15:09 Consult Physician Routine Consulting Provider: Jack Pleitez Consult Reason/Comments: pt reports follow with you in wound clinic for abx and wound care Do you want consulting provider notified?: Yes 01/14/21 11:29 Consult Physician Routine Consulting Provider: Britni Yung Consult Reason/Comments: decreasing mentation Do you want consulting provider notified?: Yes Primary care physician: Garfield Cherrington Hospital Course: The patient is an 80-year-old female with an extensive PMH including A. fib on Eliquis, hypertension, hyperlipidemia, coronary artery disease status post pacemaker and CABG, chronic diastolic CHF, type II DM, peripheral artery disease, and a history of left BKA who had brought into the emergency room after suffering a fall. The patient was found to have elevated troponin, lactic acidosis, and acute kidney injury. She was started on heparin infusion and was admitted with cardiology consulted. The patient experienced gradual decline in her mentation throughout her hospital stay. Neurology was consulted with thorough workup performed. EEG revealed background slowing with moderate to severe degree suggestive of generalized cerebral dysfunction with no epileptiform activity noted. CT brain was however unremarkable. Multiple discussions were had with the patient's family regarding goals of care. On the day of discharge, discussed with the patient's daughter and her 2 sons at the bedside in extensive detail regarding the patient's wishes as she had expressed them to her family earlier in her life. The family noted that she had always need to quality of her life and comfort her primary goal. They had stated that she would not have wanted to be kept alive on machines or if she has a poor quality of life. Discussed with them her multiple comorbidities and her gradual mental decline. The family then discussed amongst themselves and advised the team that they would like their mother to go home with him with home hospice. Hospice consult was placed and the patient was provided with a hospital bed to be delivered to her home. Patient was seen and examined at the bedside on the day of discharge. She continued to be very confused and provided no meaningful history and answering all questions. Physical Examination General: Non-toxic, in no acute distress, appears stated age, obese HEENT: NC/AT, anicteric sclerae, moist conjunctiva, no lid-lag, PERRLA Cardiovascular: S1/S2 wnl, no murmurs, rubs, or gallops Lungs: Clear to auscultation, normal respiratory effort, no accessory muscle use Abdominal: Soft, non-tender, non-distended, no guarding, rebound, or rigidity Skin: Warm, dry Extremities: No edema or contractures Psychiatric: Confused, makes eye contact but speaking out incomprehensibly with no meaningful history obtained Neuro: Moving all extremities, unable to assess Discharge diagnosis: Acute on chronic systolic and diastolic CHF, acute metabolic encephalopathy, acute kidney injury, type II DM, hypertension, hyperlipidemia, A. fib on Eliquis, anemia of chronic disease, coronary artery disease status post CABG and pacemaker insertion, peripheral arterial disease A total of 50 minutes of time were spent preparing this complex discharge summary. Patient Condition at Discharge: Poor Plan - Discharge Summary New Discharge Prescriptions: Continue Montelukast [Singulair] 10 mg PO HS #30 tab Losartan [Cozaar] 50 mg PO DAILY Cyanocobalamin (Vitamin B-12) [Vitamin B-12] 1,000 mcg PO DAILY Rosuvastatin [Crestor] 20 mg PO DAILY metFORMIN HCL [Glucophage XR] 750 mg PO BID Apixaban [Eliquis] 5 mg PO BID Albuterol Inhaler [Ventolin Hfa Inhaler] 2 puff INHALATION RT-QID PRN PRN Reason: Shortness Of Breath Irving-3 Fatty Acids/Fish Oil [Fish Oil 1,000 mg Softgel] 1 cap PO DAILY Multivitamins, Thera [Multivitamin (formulary)] 1 tab PO DAILY Fluticasone/Salmeterol [Advair Hfa 45-21 Mcg Inhaler] 1 puff INHALATION RT- BID PRN PRN Reason: Shortness Of Breath Donepezil HCl [Aricept] 10 mg PO DAILY Furosemide [Lasix] 40 mg PO DAILY 30 Days #30 tab hydrALAZINE HCL [Apresoline] 50 mg PO TID HYDROcodone/APAP 5-325MG [Rothsay 5-325] 1 tab PO Q6HR PRN 3 Days #12 tab PRN Reason: Pain Liraglutide [Victoza 3-Orlin] 1.8 mg SQ DAILY Insulin Glargine,Hum.rec.anlog [Lantus Solostar Pen] 2 unit SQ HS Pregabalin [Lyrica] 225 mg PO BID OXcarbazepine [Trileptal] 300 mg PO BID Simethicone [Gas-X] 125 mg PO TID PRN PRN Reason: bloating & gas Discharge Medication List Montelukast [Singulair] 10 mg PO HS #30 tab 09/20/16 [Rx] Cyanocobalamin (Vitamin B-12) [Vitamin B-12] 1,000 mcg PO DAILY 07/18/17 [History] Losartan [Cozaar] 50 mg PO DAILY 07/18/17 [History] Rosuvastatin [Crestor] 20 mg PO DAILY 01/10/19 [History] metFORMIN HCL [Glucophage XR] 750 mg PO BID 02/15/19 [History] Apixaban [Eliquis] 5 mg PO BID 06/13/19 [History] Albuterol Inhaler [Ventolin Hfa Inhaler] 2 puff INHALATION RT-QID PRN 11/19/19 [History] Donepezil HCl [Aricept] 10 mg PO DAILY 09/06/20 [History] Fluticasone/Salmeterol [Advair Hfa 45-21 Mcg Inhaler] 1 puff INHALATION RT-BID PRN 09/06/20 [History] Insulin Glargine,Hum.rec.anlog [Lantus Solostar Pen] 2 unit SQ HS 09/06/20 [History] Liraglutide [Victoza 3-Orlin] 1.8 mg SQ DAILY 09/06/20 [History] Multivitamins, Thera [Multivitamin (formulary)] 1 tab PO DAILY 09/06/20 [History] Irving-3 Fatty Acids/Fish Oil [Fish Oil 1,000 mg Softgel] 1 cap PO DAILY 09/06/20 [History] Pregabalin [Lyrica] 225 mg PO BID 09/06/20 [History] Furosemide [Lasix] 40 mg PO DAILY 30 Days #30 tab 09/09/20 [Rx] OXcarbazepine [Trileptal] 300 mg PO BID 12/09/20 [History] hydrALAZINE HCL [Apresoline] 50 mg PO TID 12/09/20 [History] HYDROcodone/APAP 5-325MG [Rothsay 5-325] 1 tab PO Q6HR PRN 3 Days #12 tab 12/26/20 [Rx] Simethicone [Gas-X] 125 mg PO TID PRN 01/12/21 [History] Follow up Appointment(s)/Referral(s): Alberto Black MD [STAFF PHYSICIAN] - 1 Week [facility], [NON-STAFF] - [facility] [NON-STAFF] - Garfield Thurman [Primary Care Provider] - 1-2 days Patient Instructions/Handouts: Hospice Care (GEN), Aspiration Precautions (ED) Discharge Disposition: HOME WITH HOSPICE
[2021-01-19 14:46] VITALS: BP 116/63; PULSE 81; TEMP 98.6
[2021-01-19] MEDS ORDERED: LORazepam 2 MG/ML INJ IV STA (14:57)
[2021-01-19] MEDS ORDERED: MORPHINE SULFATE 2 MG/ML SYRINGE IVP STA (14:58)
[2021-01-19 16:49] LABS: Glucose,Whole Blood 231 mg/dL (75-99)
--- NOTE | 2021-01-19 19:17 | PN ---
PROGRESS NOTE DATE OF SERVICE: 01/19/2021. REASON FOR FOLLOWUP: Right lower extremity wound. INTERVAL HISTORY: The patient is afebrile. The patient remains to be confused. No agitation has been noticed. No vomiting, diarrhea or other change reported by nursing staff. PHYSICAL EXAMINATION: Blood pressure 115/63, pulse of 81, temperature 98.3. She is 95% on 3 L nasal cannula. General description is an elderly female lying in bed in no distress. Respiratory system: Unlabored breathing, coarse breath sounds bilaterally, no wheeze. Heart S1, S2. Regular rate and rhythm. Abdomen soft, no tenderness. LABS: No new labs have been obtained today. DIAGNOSTIC IMPRESSION AND PLAN: Patient with right lower extremity wound and ( ) changes to the the toe area with ( ) surgical intervention. Possible plan is for hospice ( ). Local care to continue. No need for systemic antibiotic therapy on discharge. Continue supportive care. MMODL / IJN: [id number] /
== END 2021-01-19 17:20 | disposition hospice, home (50) | DRG 280 ==
LOC: EC 03:29 → 3SCARD 05:11
PROVIDERS: ADMIT Internal Medicine; ATTEND Internal Medicine
DX: I21.4 Non-ST elevation (NSTEMI) myocardial infarction (principal); I50.43 Acute on chronic combined systolic (congestive) and diastolic (congestive) heart failure; J96.01 Acute respiratory failure with hypoxia; G92.8 Other toxic encephalopathy; E87.2 Acidosis; I48.19 Other persistent atrial fibrillation; I48.92 Unspecified atrial flutter; L97.912 Non-pressure chronic ulcer of unspecified part of right lower leg with fat layer exposed; N17.9 Acute kidney failure, unspecified; L03.115 Cellulitis of right lower limb; D63.8 Anemia in other chronic diseases classified elsewhere; E11.40 Type 2 diabetes mellitus with diabetic neuropathy, unspecified; E11.51 Type 2 diabetes mellitus with diabetic peripheral angiopathy without gangrene; E11.621 Type 2 diabetes mellitus with foot ulcer; E78.5 Hyperlipidemia, unspecified; F01.50 Vascular dementia, unspecified severity, without behavioral disturbance, psychotic disturbance, mood disturbance, and anxiety; I11.0 Hypertensive heart disease with heart failure; Z51.5 Encounter for palliative care; Z20.822 Contact with and (suspected) exposure to COVID-19; Z66 Do not resuscitate; I25.10 Atherosclerotic heart disease of native coronary artery without angina pectoris; I25.2 Old myocardial infarction; I25.5 Ischemic cardiomyopathy; I27.20 Pulmonary hypertension, unspecified; I49.5 Sick sinus syndrome; Z95.1 Presence of aortocoronary bypass graft; L97.513 Non-pressure chronic ulcer of other part of right foot with necrosis of muscle; J44.9 Chronic obstructive pulmonary disease, unspecified; I65.22 Occlusion and stenosis of left carotid artery; I08.1 Rheumatic disorders of both mitral and tricuspid valves; I73.00 Raynaud's syndrome without gangrene; W06.XXXA Fall from bed, initial encounter; G50.0 Trigeminal neuralgia; L71.9 Rosacea, unspecified; Z79.01 Long term (current) use of anticoagulants; Z79.4 Long term (current) use of insulin; Z79.82 Long term (current) use of aspirin; Z79.84 Long term (current) use of oral hypoglycemic drugs; Z79.899 Other long term (current) drug therapy; Z82.49 Family history of ischemic heart disease and other diseases of the circulatory system; Z83.3 Family history of diabetes mellitus; Z82.3 Family history of stroke; Z87.891 Personal history of nicotine dependence; Z89.512 Acquired absence of left leg below knee; Z90.710 Acquired absence of both cervix and uterus; Z95.0 Presence of cardiac pacemaker; Z95.5 Presence of coronary angioplasty implant and graft; Z90.49 Acquired absence of other specified parts of digestive tract
CPT/HCPCS: 36415; 36600; 70450; 71045; 72125; 72170; 80048; 80053; 80061; 80306; 80320; 81001; 82140; 82607; 82746; 82805; 83605; 83735; 84484; 85025; 85027; 85610; 85730; 86850; 86870; 86880; 86900; 86901; 86902; 87635; 93005; 93306; 93880; 94760; 95816; 95819